=== PATIENT | male | born 1965 | race Hispanic/Latino ===

== ENCOUNTER 2018-08-04 20:26 | Emergency (ER) | payer BC, SELFPAY ==
[2018-08-04] MEDS ORDERED: NA CHLORIDE 0.9% 250 ML ONE (21:13)
[2018-08-04] MEDS ORDERED: NA CHLORIDE 0.9% 500 ML ONE (21:13)
[2018-08-04] MEDS ORDERED: PANTOPRAZOLE 40 MG INJ ONE (21:13)
[2018-08-04] MEDS ORDERED: ONDANSETRON 4 MG/2 ML VIAL ONE ×2 (21:27→23:06)
[2018-08-04 21:36] LABS: Absolute Lymphocytes (CBC) 2.4 K/uL (0.7-4.9); Absolute Monocytes 0.6 K/uL (0.1-1.3)
[2018-08-04 21:38] LABS: Protime INR 1.06
[2018-08-04 21:39] LABS: Absolute Neutrophil 5.7 K/uL (1.8-8.0); Eosinophils % 5.6 % (0-4.4); Lymphocytes % 25.9 % (15.3-44.8); MCH 21.5 pg (27.0-35.0); MCV 69.4 fL (80-100); MPV 9.3 fL (7.6-11.3); Monocytes % 6.6 % (3.3-12.3); RBC Red Blood Cell Count 3.46 M/uL (4.33-5.43)
[2018-08-04 21:42] LABS: Albumin 2.6 g/dL (3.4-5.0); Bilirubin Direct 0.2 mg/dL (0-0.2); Bilirubin Total 0.5 mg/dL (0.2-1.0); Potassium 3.6 mmol/L (3.5-5.1); Protein, Total 6.9 g/dL (6.4-8.2)
--- NOTE | 2018-08-04 21:55 | RAD REPORT ---
EXAM DESCRIPTION: RAD - Chest Single View - 08/04/2018 9:06 pm CLINICAL HISTORY: Hematemesis, shortness of breath COMPARISON: None. TECHNIQUE: AP portable chest image was obtained 2052 . FINDINGS: Lung volumes are very low. No peripheral mass, consolidation or significant pulmonary asim a. Heart and vasculature are normal. No measurable pleural effusion and no pneumothorax. No acute bon y abnormality seen. No acute aortic findings suspected. IMPRESSION: Limited portable study without acute cardiopulmonary finding.
[2018-08-04] MEDS ORDERED: CEFTRIAXONE/SWI 1gm 1 GM/10 ML SYR ONE (22:04)
[2018-08-04] MEDS ORDERED: NA CHLORIDE 0.9% 1,000 ML ONE (22:06)
[2018-08-04 22:16] LABS: Blood Morphology Comment NOTED (NOT SEEN); Hypochromasia 1+; Platelet Estimate ADEQ; Urine White Blood Cell Casts OK
--- NOTE | 2018-08-04 22:29 | EDPHYS ---
Physician Documentation [facility] Name: Janusz Morris Jr Age: 53 yrs Sex: Male : 1965 Arrival Date: 08/04/2018 Time: 20:30 Bed 2 Private MD: ED Physician Syed Steele HPI: 08/04 20:50 This 53 yrs old Male presents to ER via Wheelchair with complaints of Vomiting rn - blood. 20:50 The patient presents to the emergency department with nausea, vomiting. Onset: The rn symptoms/episode began/occurred just prior to arrival. Possible causes: unknown. Severity of symptoms: At their worst the symptoms were moderate in the emergency department the symptoms have improved. The patient has not experienced similar symptoms in the past. The patient has not recently seen a physician. Reports vomiting blood, single episode, has hx of cirrhosis, has required banding and states almost from ugger GI bleed 1 year ago. Not on anticoagulation. Still drinking. Had bloody nose this morning without trauma. No abd pain.. Historical: - Allergies: 20:46 No Known Allergies; aj - Home Meds: 20:46 Glipizide Oral [Active]; Metformin Oral [Active]; Lisinopril Oral [Active]; aj - PMHx: 20:46 Hypertension; Diabetes - NIDDM; Alcoholism; Cirrhosis; aj - Immunization history:: Adult Immunizations up to date. - Social history:: Smoking status: Patient/guardian denies using tobacco. - Ebola Screening: : Patient negative for fever greater than or equal to 101.5 degrees Fahrenheit, and additional compatible Ebola Virus Disease symptoms Patient denies exposure to infectious person Patient denies travel to an Ebola-affected area in the 21 days before illness onset No symptoms or risks identified at this time. - Family history:: not pertinent. - Hospitalizations: : No recent hospitalization is reported. ROS: 20:50 Constitutional: Negative for fever, chills, and weight loss, Eyes: Negative for injury, rn pain, redness, and discharge, ENT: + nose bleed Neck: Negative for injury, pain, and swelling, Cardiovascular: Negative for chest pain, palpitations, and edema, Respiratory: Negative for shortness of breath, cough, wheezing, and pleuritic chest pain, Abdomen/GI: + vomiting blood, no abd pain MS/Extremity: Negative for injury and deformity, Skin: Negative for injury, rash, and discoloration, Neuro: Negative for headache, weakness, numbness, tingling, and seizure. Exam: 20:50 Constitutional: Overweight male, no acute distress, holding emesis bag and shirt with rn small amount of bright red blood on it Head/Face: Normocephalic, atraumatic. Eyes: Pupils equal round and reactive to light, extra-ocular motions intact. Lids and lashes normal. Conjunctiva and sclera are non-icteric and not injected. Cornea within normal limits. Periorbital areas with no swelling, redness, or edema. ENT: + dry nasal blood Cardiovascular: Regular rate and rhythm with a normal S1 and S2. No gallops, murmurs, or rubs. Normal PMI, no JVD. No pulse deficits. Respiratory: Lungs have equal breath sounds bilaterally, clear to auscultation and percussion. No rales, rhonchi or wheezes noted. No increased work of breathing, no retractions or nasal flaring. Abdomen/GI: Soft, non-tender MS/ Extremity: Pulses equal, no cyanosis. Neurovascular intact. Full, normal range of motion. Equal circumference. Neuro: Awake and alert, GCS 15, oriented to person, place, time, and situation. Cranial nerves II-XII grossly intact. Motor strength 5/5 in all extremities. Sensory grossly intact. Cerebellar exam normal. Vital Signs: 20:46 BP 129 / 69; Pulse 97; Resp 20; Temp 98.4; Pulse Ox 99% on R/A; Weight 81.65 kg; Height aj 5 ft. 2 in. (157.48 cm); 21:27 BP 98 / 63; Pulse 91; Resp 15; Pulse Ox 98% on R/A; tl2 22:21 BP 105 / 61; Pulse 87; Resp 12; Pulse Ox 99% on NC; aj 20:46 Body Mass Index 32.92 (81.65 kg, 157.48 cm) aj MDM: 20:38 Patient medically screened. rn 22:04 ED course: Pt with low hemoglobin, + UGIB, no GI here, protonix drip going, blood rn ordered, rocephin given for suspected variceal bleeding, stable vitals, is NPO, attempting transfer to [facility] given his previous care has been there. . 22:25 Differential diagnosis: gastritis, esophageal varices, UGIB. Data reviewed: vital rn signs, nurses notes, lab test result(s), EKG, and as a result, I will admit patient. Counseling: I had a detailed discussion with the patient and/or guardian regarding: the historical points, exam findings, and any diagnostic results supporting the discharge/admit diagnosis, lab results, radiology results, the need to transfer to another facility, for higher level of care, [facility] does not immediately have the required specialist. Response to treatment: the patient's symptoms have mildly improved after treatment, and as a result, I will admit patient. ED course: Pt accepted to [facility] for transfer for GI evaluation given no GI here, stable for transfer.. 08/04 20:49 Order name: Basic Metabolic Panel; Complete Time: 21:46 08/04 20:49 Order name: CBC with Diff; Complete Time: 22:19 08/04 20:49 Order name: Creatinine for Radiology; Complete Time: 21:46 08/04 20:49 Order name: Hepatic Function; Complete Time: 21:46 08/04 20:49 Order name: Lipase; Complete Time: 21:46 08/04 20:49 Order name: PT-INR; Complete Time: 21:54 08/04 20:49 Order name: Ptt, Activated; Complete Time: 21:54 08/04 20:49 Order name: ETOH Level; Complete Time: 21:54 08/04 20:49 Order name: XRAY Chest (1 view); Complete Time: 21:58 08/04 21:46 Order name: CBC Smear Scan; Complete Time: 22:19 [facility] 08/04 22:05 Order name: Type And Screen bb 08/04 22:25 Order name: Lactate rn 08/04 22:50 Order name: Packed RBC Leukored -1 [facility] 08/04 23:36 Order name: ABO/RH no charge [facility] 08/04 20:49 Order name: IV Start; Complete Time: 21:01 08/04 20:49 Order name: Labs collected and sent; Complete Time: 21: 08/04 20:49 Order name: EKG - Nurse/Tech; Complete Time: 21:13 08/04 20:49 Order name: EKG; Complete Time: 20:50 08/04 21:58 Order name: NPO; Complete Time: 22:02 rn Administered Medications: 21:13 Drug: ProTONIX 40 mg Route: IVP; Site: right hand; tl2 21:13 Drug: ProTONIX 8 mg/hr Route: IV; Rate: 25 ml/hr; Site: right hand; tl2 21:14 Drug: NS 0.9% 500 ml Route: IV; Rate: bolus; Site: left antecubital; tl2 21:21 Drug: Zofran 4 mg Route: IVP; Site: left antecubital; tl2 21:50 Follow up: Response: No adverse reaction; Nausea is decreased tl2 22:03 Drug: Rocephin - (cefTRIAXone) 1 grams Route: IVPB; Infused Over: 30 mins; Site: left tl2 antecubital; 22:03 Drug: NS 0.9% 500 ml Route: IV; Rate: bolus; Site: left antecubital; tl2 22:21 Drug: NS 0.9% 1000 ml Route: IV; Rate: 125 ml/hr; Site: left antecubital; aj 23:00 Drug: Zofran 4 mg Route: IVP; Site: left antecubital; tl2 23:30 Follow up: Response: No adverse reaction; Nausea is decreased tl2 Disposition: 08/04/18 22:28 Transfer ordered to [facility]. Diagnosis are Hematemesis, Alcoholic cirrhosis of liver, Anemia. - Reason for transfer: Higher level of care. - Accepting physician is Dr. Black. - Condition is Stable. - Problem is new. - Symptoms have improved. Signatures: Dispatcher [employer] Alley Crawford RN RN aj Nieto, Roman, MD MD rn Knox, Taylor, RN RN tl2 Corrections: (The following items were deleted from the chart) 08/05 01:08 08/04 22:28 08/04/2018 22:28 Transfer ordered to [facility]. Diagnosis is tl2 Hematemesis; Alcoholic cirrhosis of liver; Anemia. Reason for transfer: Higher level of care. Accepting physician is Dr. Black. Condition is Stable. Problem is new. Symptoms have improved. rn
--- NOTE | 2018-08-04 22:29 | ER ---
Nurse's Notes [facility] Name: Janusz Morris Jr Age: 53 yrs Sex: Male : 1965 Arrival Date: 08/04/2018 Time: 20:30 Bed 2 Private MD: Diagnosis: Hematemesis;Alcoholic cirrhosis of liver;Anemia Presentation: 08/04 20:44 Presenting complaint: Patient states: Reports vomiting large amount of blood several aj times today [employer]. Patient has HX of cirrhosis and was recently released from [facility]. Transition of care: patient was not received from another setting of care. Onset of symptoms was August 04, 2018. Risk Assessment: Do you want to hurt yourself or someone else? Patient reports no desire to harm self or others. Initial Sepsis Screen: Does the patient meet any 2 criteria? No. Patient's initial sepsis screen is negative. Does the patient have a suspected source of infection? No. Patient's initial sepsis screen is negative. Care prior to arrival: None. 20:44 Method Of Arrival: Wheelchair aj 20:44 Acuity: AJ 2 aj Triage Assessment: 20:46 General: Appears in no apparent distress. uncomfortable, Behavior is anxious. Pain: aj Denies pain. Neuro: Level of Consciousness is awake, alert, obeys commands, Oriented to person, place, time, situation, Appropriate for age. Respiratory: Airway is patent Respiratory effort is even, unlabored, Respiratory pattern is regular, symmetrical. GI: Reports vomiting. Derm: Skin is intact, is healthy with good turgor, Skin is dry, Skin is pale. Historical: - Allergies: 20:46 No Known Allergies; aj - Home Meds: 20:46 Glipizide Oral [Active]; Metformin Oral [Active]; Lisinopril Oral [Active]; aj - PMHx: 20:46 Hypertension; Diabetes - NIDDM; Alcoholism; Cirrhosis; aj - Immunization history:: Adult Immunizations up to date. - Social history:: Smoking status: Patient/guardian denies using tobacco. - Ebola Screening: : Patient negative for fever greater than or equal to 101.5 degrees Fahrenheit, and additional compatible Ebola Virus Disease symptoms Patient denies exposure to infectious person Patient denies travel to an Ebola-affected area in the 21 days before illness onset No symptoms or risks identified at this time. - Family history:: not pertinent. - Hospitalizations: : No recent hospitalization is reported. Screenin:49 Tuberculosis screening: Never had TB. aj 22:34 Abuse screen: Denies threats or abuse. Nutritional screening: No deficits noted. Fall tl2 Risk None identified. Assessment: 20:40 General: Appears in no apparent distress. uncomfortable, Behavior is calm, cooperative, tl2 appropriate for age. Pain: Denies pain. Neuro: Level of Consciousness is awake, alert, obeys commands, Oriented to person, place, time, situation. Cardiovascular: Denies chest pain, Rhythm is sinus rhythm. Respiratory: Airway is patent Respiratory effort is even, unlabored, Respiratory pattern is regular, symmetrical. GI: Abdomen is non-distended, Reports nausea, vomiting. : No signs and/or symptoms were reported regarding the genitourinary system. Derm: Skin is pale. 21:50 Reassessment: Patient appears in no apparent distress at this time. Patient and/or tl2 family updated on plan of care and expected duration. Pain level reassessed. Patient is alert, oriented x 3, equal unlabored respirations, skin warm/dry/pink. Pt states nausea is improved. 22:50 Reassessment: Pt reports nausea, MD notified, new order see MAR. tl2 23:50 Reassessment: Awaiting transport for transfer. tl2 Vital Signs: 20:46 BP 129 / 69; Pulse 97; Resp 20; Temp 98.4; Pulse Ox 99% on R/A; Weight 81.65 kg; Height aj 5 ft. 2 in. (157.48 cm); 21:27 BP 98 / 63; Pulse 91; Resp 15; Pulse Ox 98% on R/A; tl2 22:21 BP 105 / 61; Pulse 87; Resp 12; Pulse Ox 99% on NC; aj 20:46 Body Mass Index 32.92 (81.65 kg, 157.48 cm) aj ED Course: 20:30 Patient arrived in ED. am2 20:38 Syed Steele MD is Attending Physician. rn 20:45 Triage completed. aj 20:46 Arm band placed on left wrist. Patient placed in an exam room, on a stretcher, on pulse aj oximetry. 21:01 Aster Allred RN is Primary Nurse. tl2 21:04 X-ray completed. Portable x-ray completed in exam room. Patient tolerated procedure kp1 well. 21:05 XRAY Chest (1 view) In Process Unspecified. EDMS 21:15 Inserted saline lock: 20 gauge in right hand, using aseptic technique. tl2 21:15 Inserted saline lock: 20 gauge in left antecubital area, using aseptic technique. Blood tl2 collected. 21:18 EKG done, by ED staff, reviewed by Syed Steele MD. cb2 21:45 Notified ED physician of a critical lab result(s). HGB of 7.5, HCT of 24.0 Dr Ivette solorzano notified. 22:34 Patient has correct armband on for positive identification. Placed in gown. Bed in low tl2 position. Call light in reach. Side rails up X 1. Adult w/ patient. Administered Medications: 21:13 Drug: ProTONIX 40 mg Route: IVP; Site: right hand; tl2 21:13 Drug: ProTONIX 8 mg/hr Route: IV; Rate: 25 ml/hr; Site: right hand; tl2 21:14 Drug: NS 0.9% 500 ml Route: IV; Rate: bolus; Site: left antecubital; tl2 21:21 Drug: Zofran 4 mg Route: IVP; Site: left antecubital; tl2 21:50 Follow up: Response: No adverse reaction; Nausea is decreased tl2 22:03 Drug: Rocephin - (cefTRIAXone) 1 grams Route: IVPB; Infused Over: 30 mins; Site: left tl2 antecubital; 22:03 Drug: NS 0.9% 500 ml Route: IV; Rate: bolus; Site: left antecubital; tl2 22:21 Drug: NS 0.9% 1000 ml Route: IV; Rate: 125 ml/hr; Site: left antecubital; aj 23:00 Drug: Zofran 4 mg Route: IVP; Site: left antecubital; tl2 23:30 Follow up: Response: No adverse reaction; Nausea is decreased tl2 Outcome: 22:28 ER care complete, transfer ordered by MD. arshad 08/05 01:08 Patient left the ED. tl2 Signatures: Dispatcher [employer] EDMS Alley Valdez RN RN aj Ballard, Brenda, RN RN bb Nieto, Roman, MD MD rn Knox, Taylor, RN RN tl2 Alley Del Real am2 Boubacar Martinez Lois kp1 Corrections: (The following items were deleted from the chart) 08/04 22:34 20:40 General: Appears in no apparent distress. uncomfortable, Behavior is calm, tl2 cooperative, appropriate for age, 22:34 20:40 Pain: Denies pain. [facility] 22:34 20:40 Neuro: Level of Consciousness is awake, alert, obeys commands, Oriented to 2 person, place, time, situation, :34 20:40 Cardiovascular: Denies chest pain, [facility] 22:34 20:40 Respiratory: Airway is patent Respiratory effort is even, unlabored, Respiratory 2 pattern is regular, symmetrical, 22:34 20:40 GI: Reports nausea, vomiting, [facility] :34 20:40 : No signs and/or symptoms were reported regarding the genitourinary system. [facility] :34 20:40 General: Smells of alcohol, [facility] :34 20:40 Derm: Skin is pale, [facility] :34 20:40 GI: Abdomen is non-distended, [facility] :34 21:50 Reassessment: Patient appears in no apparent distress at this time. Patient tl2 and/or family updated on plan of care and expected duration. Pain level reassessed. Patient is alert, oriented x 3, equal unlabored respirations, skin warm/dry/pink. nausea is improved aj
--- NOTE | 2018-08-05 07:03 | EKG ---
Test Date: 2018-08-04 Test Time: 21:16:26 Personnel Adviser: MING MEASUREMENT RESULTS: Intervals: Rate: 94 NV: 152 QRSD: 76 QT: 384 QTc: 480 [place]: P: 32 NV: 152 QRS: 5 T: 62 INTERPRETIVE STATEMENTS: Normal sinus rhythm Prolonged QT Abnormal ECG No previous ECG available for comparison Electronically Signed On 08-05-18 07:02:20 JETTING MACHINE OPERATOR by Gunnar Talley
== END 2018-08-05 01:08 | disposition short-term general hospital (02) ==
LOC: ER 20:26
DX: K92.0 Hematemesis (principal); K70.30 Alcoholic cirrhosis of liver without ascites; D64.9 Anemia, unspecified; R94.31 Abnormal electrocardiogram [ECG] [EKG]
CPT/HCPCS: 36415; 71045; 80048; 80076; 80320; 83605; 83690; 85025; 85610; 85730; 86850; 86900; 86901; 93005; 99284; C9113; J0696; J2405; J7030

== ENCOUNTER 2018-08-09 16:36 | Inpatient (IN) | payer SELFPAY ==
--- NOTE | 2018-08-09 18:07 | EKG ---
Test Date: 2018-08-09 Test Time: 17:48:24 Senior Technical Business Analyst: GEORGE MEASUREMENT RESULTS: Intervals: Rate: 81 MI: 150 QRSD: 80 QT: 390 QTc: 453 [place]: P: 17 MI: 150 QRS: 12 T: 68 INTERPRETIVE STATEMENTS: Normal sinus rhythm Normal ECG Compared to ECG 08/04/2018 21:16:26 Prolonged QT interval no longer present Electronically Signed On 08-09-18 18:06:12 MATERIAL EXPEDITER by Yon Gallo
--- NOTE | 2018-08-09 18:10 | RAD REPORT ---
EXAM DESCRIPTION: Stephon Single View08/09/2018 6:02 pm CLINICAL HISTORY: Chest pain COMPARISON: August 04, 2018 FINDINGS: The lungs appear clear of acute infiltrate. The heart is mildly enlarged IMPRESSION: No acute abnormalities displayed
[2018-08-09 18:57] LABS: Protime INR 1.12
[2018-08-09 19:11] LABS: Bilirubin Direct 0.4 mg/dL (0-0.2); Magnesium 2.2 mg/dL (1.8-2.4); Potassium 3.6 mmol/L (3.5-5.1); Troponin (Emerg Dept Use Only) 0.04 ng/mL (0.0-0.045)
[2018-08-09 19:18] LABS: Absolute Lymphocytes (CBC) 1.6 K/uL (0.7-4.9); Absolute Monocytes 0.7 K/uL (0.1-1.3); Absolute Neutrophil 6.3 K/uL (1.8-8.0); Basophils % 0.7 % (0-1.3); Hematocrit 25.5 % (39.6-49.0); Lymphocytes % 17.9 % (15.3-44.8); MCH 23.7 pg (27.0-35.0); MCV 73.2 fL (80-100); MPV 9.6 fL (7.6-11.3); Monocytes % 7.3 % (3.3-12.3); RBC Red Blood Cell Count 3.48 M/uL (4.33-5.43)
--- NOTE | 2018-08-09 20:02 | ER ---
Nurse's Notes [facility] Name: Janusz Morris Jr Age: 53 yrs Sex: Male : 1965 Arrival Date: 08/09/2018 Time: 16:38 Bed 5 Private MD: None, None Diagnosis: Chest pain, unspecified Presentation: 08/09 16:51 Presenting complaint: states: Patient was transferred to [facility] for GI aj1 bleeding on August 04. He had banding of esophageal varices done on August 05 and they were discharged last night. He has an appointment for follow up endoscopy next week because he still has a blood clot in his stomach. When she came home today he was hunched over in a ball, telling her that he was nauseated, his stomach was hurting and he felt like he couldn't breath. Patient states that he is still having pain and SOB. Transition of care: patient was not received from another setting of care. Onset of symptoms was August 09, 2018. Risk Assessment: Do you want to hurt yourself or someone else? Patient reports no desire to harm self or others. Initial Sepsis Screen: Does the patient meet any 2 criteria? No. Patient's initial sepsis screen is negative. Does the patient have a suspected source of infection? No. Patient's initial sepsis screen is negative. Care prior to arrival: None. 16:51 Method Of Arrival: Wheelchair aj1 16:51 Acuity: AJ 3 aj1 Triage Assessment: 16:59 General: Appears in no apparent distress. uncomfortable, Behavior is calm, cooperative, aj1 appropriate for age. Pain: Complains of pain in abdomen Pain currently is 5 out of 10 on a pain scale. Neuro: Level of Consciousness is awake, alert, obeys commands. Cardiovascular: Patient's skin is warm and dry. Respiratory: Airway is patent Respiratory effort is even, unlabored, Respiratory pattern is regular, symmetrical. Historical: - Allergies: 16:59 No Known Allergies; aj1 - Home Meds: 16:59 Cipro 500 mg Oral tab 1 tab every 12 hours [Active]; lactulose 10 gram/15 mL Oral soln aj1 60 mL 3 times per day [Active]; pantoprazole 40 mg oral TbEC 1 tab 2 times per day [Active]; propranolol 20 mg Oral tab 1 tab twice a day [Active]; furosemide 20 mg Oral tab 1 tab once daily [Active]; spironolactone 50 mg Oral tab 1 tab once daily [Active]; glipizide 10 mg oral tab 1 tab once daily [Active]; metformin 1,000 mg oral tab 1 tab 2 times per day [Active]; - PMHx: 16:59 Alcoholism; Cirrhosis; Diabetes - NIDDM; Hypertension; esophageal varices; GI Bleed; aj1 - Immunization history:: Flu vaccine is not up to date. - Social history:: Smoking status: Patient/guardian denies using tobacco, Patient/guardian denies using alcohol, street drugs, The patient lives with family. - Ebola Screening: : Patient denies travel to an Ebola-affected area in the 21 days before illness onset. - Family history:: not pertinent. Screenin:04 Abuse screen: Denies threats or abuse. Denies injuries from another. Nutritional sv screening: No deficits noted. Tuberculosis screening: No symptoms or risk factors identified. Fall Risk None identified. Assessment: 17:30 General: Appears in no apparent distress. comfortable, obese, well groomed, Behavior is ph calm, cooperative, appropriate for age, Denies fever. Pain: Complains of pain in anterior aspect of left upper chest Pain currently is 0 out of 10 on a pain scale. Neuro: Level of Consciousness is awake, alert, obeys commands, Oriented to person, place, time, situation. Cardiovascular: Reports chest pain, nausea, shortness of breath, [employer], denies these symptoms now Chest pain quality is sharp, is located in left anterior chest wall episodes are intermittent last > 5 minutes. Respiratory: Airway is patent Respiratory effort is even, unlabored, Respiratory pattern is regular, symmetrical. GI: Abdomen is round Patient currently denies nausea. Derm: Skin is intact, is healthy with good turgor, Skin is pink, warm \T\ dry. Musculoskeletal: Circulation, motion, and sensation intact. Range of motion: intact in all extremities. 18:19 Reassessment: Patient appears in no apparent distress at this time. Patient and/or ph family updated on plan of care and expected duration. Pain level reassessed. Patient is alert, oriented x 3, equal unlabored respirations, skin warm/dry/pink. Pt resting quietly, family at bedside Patient denies pain at this time. 19:10 General: Appears in no apparent distress. comfortable, Behavior is calm, cooperative, rr5 appropriate for age, Denies fever. Pain: Denies pain. Neuro: No deficits noted. Level of Consciousness is awake, alert, obeys commands, Oriented to person, place, time, situation. Cardiovascular: Denies chest pain. Respiratory: Airway is patent Respiratory effort is even, unlabored, Respiratory pattern is regular, symmetrical. GI: Abdomen is round Patient currently denies nausea. : No signs and/or symptoms were reported regarding the genitourinary system. EENT: No signs and/or symptoms were reported regarding the EENT system. Eyes. Derm: Skin is intact, is healthy with good turgor, Skin is dry, Skin is pink, warm \T\ dry. Musculoskeletal: Circulation, motion, and sensation intact. Capillary refill < 3 seconds, Range of motion: intact in all extremities. 20:30 Reassessment: Patient appears in no apparent distress at this time. Patient and/or rr5 family updated on plan of care and expected duration. Pain level reassessed. Patient is alert, oriented x 3, equal unlabored respirations, skin warm/dry/pink. awaiting for admission, no complaints made. Patient states symptoms have improved. 22:25 Reassessment: Patient appears in no apparent distress at this time. Patient is alert, rr5 oriented x 3, equal unlabored respirations, skin warm/dry/pink. shifted to telemetry Patient states symptoms have improved. Vital Signs: 16:59 BP 150 / 76; Pulse 82; Resp 18; Temp 98.8; Pulse Ox 99% on R/A; Weight 83.91 kg; Height aj1 5 ft. 2 in. (157.48 cm) (R); Pain 5/10; 17:15 BP 147 / 78; Pulse 84; Resp 18; Pulse Ox 99% on R/A; ph 18:51 BP 138 / 76; Pulse 80; Resp 18; Pulse Ox 100% on R/A; ph 19:10 BP 148 / 73; Pulse 79; Resp 19; Temp 97.9(O); Pulse Ox 100% on R/A; Pain 0/10; rr5 20:30 BP 141 / 70; Pulse 75; Resp 18; Pulse Ox 99% on R/A; rr5 21:53 BP 153 / 70; Pulse 83; Resp 18; Temp 98; Pulse Ox 99% on R/A; Pain 0/10; rr5 16:59 Body Mass Index 33.84 (83.91 kg, 157.48 cm) aj1 ED Course: 16:38 Patient arrived in ED. sb2 16:38 None, None is Private Physician. sb2 16:56 Triage completed. aj1 16:59 Arm band placed on Patient placed in an exam room. aj1 17:03 Nissa Cesar, RN is Primary Nurse. sv 17:04 Patient has correct armband on for positive identification. Bed in low position. Call sv light in reach. Door closed. Head of bed elevated. 17:12 Fei Wallis MD is Attending Physician. ma2 17:59 Inserted saline lock: 22 gauge in left antecubital area, using aseptic technique. ph Missed attempt(s): 20 gauge in right antecubital area. Bleeding controlled, band aid applied, catheter tip intact. 18:01 XRAY Chest (1 view) In Process Unspecified. EDMS 18:01 EKG done, by agriculture technician. reviewed by Fei Wallis MD. [facility] 18:50 Madie Moon, JADA is Primary Nurse. ph 18:59 Jorge Llanos PA is PHCP. cp 20:01 Ruy Elder MD is Hospitalizing Provider. cp 21:54 No provider procedures requiring assistance completed. Patient admitted, IV remains in rr5 place. Administered Medications: 22:35 Not Given (did not complaint of nausea): Zofran 4 mg IVP once; over 2 minutes rr5 Outcome: 20:01 Decision to Hospitalize by Provider. cp 22:21 Admitted to Tele accompanied by tech, via stretcher, room 428, Report called to liudmila lee RN 22:21 Condition: stable 22:21 Instructed on the need for admit. 22:40 Patient left the ED. rr5 Signatures: Dispatcher [employer] EDMS Lucinda Coughlin RN RN aj Nissa Cesar, Madie White RN, RN RN Jorge Llanos PA PA cp Fei Wallis MD MD coYahaira Contreras 2 Marylou Isabel 3 Bhanu Pretty RN RN rr5 Corrections: (The following items were deleted from the chart) 18:50 18:19 Reassessment: Patient appears in no apparent distress at this time. Patient ph and/or family updated on plan of care and expected duration. Pain level reassessed. Patient is alert, oriented x 3, equal unlabored respirations, skin warm/dry/pink. Pt resting quietly, family at bedside ph 19:26 19:10 EENT: No signs and/or symptoms were reported regarding the EENT system. rr5 rr5
--- NOTE | 2018-08-09 20:03 | EDPHYS ---
Physician Documentation [facility] Name: Janusz Morris Jr Age: 53 yrs Sex: Male : 1965 Arrival Date: 08/09/2018 Time: 16:38 Bed 5 Private MD: None, None ED Physician Fei Wallis HPI: 08/09 17:37 The patient or guardian reports chest pain that is located primarily in the anterior ma2 aspect of left upper chest and left breast. Onset: gradually, 1 hour(s) ago. The pain does not radiate. Associated signs and symptoms: Pertinent positives: diaphoresis. Associated signs and symptoms: Pertinent positives: cough, shortness of breath, Pertinent negatives: abdominal pain, headache, lower extremity pain, lower extremity swelling, syncope, vomiting. The chest pain is described as aching. Duration: The patient or guardian reports a single episode, that is now resolved. Severity of pain: At its worst the pain was moderate in the emergency department the pain has resolved. The patient has not experienced similar symptoms in the past. had EGD for esophageal varices 4 days ago, s/p 6 bands placed, discharged from [facility] yesterday, here with left sided chest pain cough and sob, never had that before, never had cardiac history . no vomiting no blood per rectum or melena or hematemesis . Historical: - Allergies: 16:59 No Known Allergies; aj1 - Home Meds: 16:59 Cipro 500 mg Oral tab 1 tab every 12 hours [Active]; lactulose 10 gram/15 mL Oral soln aj1 60 mL 3 times per day [Active]; pantoprazole 40 mg oral TbEC 1 tab 2 times per day [Active]; propranolol 20 mg Oral tab 1 tab twice a day [Active]; furosemide 20 mg Oral tab 1 tab once daily [Active]; spironolactone 50 mg Oral tab 1 tab once daily [Active]; glipizide 10 mg oral tab 1 tab once daily [Active]; metformin 1,000 mg oral tab 1 tab 2 times per day [Active]; - PMHx: 16:59 Alcoholism; Cirrhosis; Diabetes - NIDDM; Hypertension; esophageal varices; GI Bleed; aj1 - Immunization history:: Flu vaccine is not up to date. - Social history:: Smoking status: Patient/guardian denies using tobacco, Patient/guardian denies using alcohol, street drugs, The patient lives with family. - Ebola Screening: : Patient denies travel to an Ebola-affected area in the 21 days before illness onset. - Family history:: not pertinent. ROS: 17:37 Eyes: Negative for injury, pain, redness, and discharge, Neck: Negative for injury, ma2 pain, and swelling, Back: Negative for injury and pain, MS/Extremity: Negative for injury and deformity, Neuro: Negative for headache, weakness, numbness, tingling, and seizure, Psych: Negative for depression, anxiety, suicide ideation, homicidal ideation, and hallucinations, Allergy/Immunology: Negative for hives, rash, and allergies, Endocrine: Negative for neck swelling, polydipsia, polyuria, polyphagia, and marked weight changes. 17:37 Constitutional: Positive for fatigue, malaise, Negative for body aches, chills, fever. 17:37 Cardiovascular: Positive for chest pain, Negative for edema, orthopnea. 17:37 Respiratory: Positive for cough, shortness of breath, Negative for hemoptysis, orthopnea. 17:37 Abdomen/GI: Positive for nausea, constipation and abdominal bloating , Negative for abdominal pain, dysphagia, hematemesis, black/tarry stool. 17:37 All other systems are negative. Exam: 17:37 Constitutional: This is a well developed, well nourished patient who is awake, alert, ma2 and in no acute distress. Head/Face: Normocephalic, atraumatic. Eyes: Pupils equal round and reactive to light, extra-ocular motions intact. Lids and lashes normal. Conjunctiva and sclera are non-icteric and not injected. Cornea within normal limits. Periorbital areas with no swelling, redness, or edema. Chest/axilla: Normal chest wall appearance and motion. Nontender with no deformity. No lesions are appreciated. Cardiovascular: Regular rate and rhythm with a normal S1 and S2. No gallops, murmurs, or rubs. Normal PMI, no JVD. No pulse deficits. Respiratory: Lungs have equal breath sounds bilaterally, clear to auscultation and percussion. No rales, rhonchi or wheezes noted. No increased work of breathing, no retractions or nasal flaring. Skin: Warm, dry with normal turgor. Normal color with no rashes, no lesions, and no evidence of cellulitis. MS/ Extremity: Pulses equal, no cyanosis. Neurovascular intact. Full, normal range of motion. Neuro: Awake and alert, GCS 15, oriented to person, place, time, and situation. Cranial nerves II-XII grossly intact. Motor strength 5/5 in all extremities. Sensory grossly intact. Cerebellar exam normal. Normal gait. 17:37 Abdomen/GI: Inspection: distension, that is moderate, Palpation: abdomen is soft and non-tender, soft. 20:01 ECG was reviewed by the Attending Physician. cp Vital Signs: 16:59 BP 150 / 76; Pulse 82; Resp 18; Temp 98.8; Pulse Ox 99% on R/A; Weight 83.91 kg; Height aj1 5 ft. 2 in. (157.48 cm) (R); Pain 5/10; 17:15 BP 147 / 78; Pulse 84; Resp 18; Pulse Ox 99% on R/A; ph 18:51 BP 138 / 76; Pulse 80; Resp 18; Pulse Ox 100% on R/A; ph 19:10 BP 148 / 73; Pulse 79; Resp 19; Temp 97.9(O); Pulse Ox 100% on R/A; Pain 0/10; rr5 20:30 BP 141 / 70; Pulse 75; Resp 18; Pulse Ox 99% on R/A; rr5 21:53 BP 153 / 70; Pulse 83; Resp 18; Temp 98; Pulse Ox 99% on R/A; Pain 0/10; rr5 16:59 Body Mass Index 33.84 (83.91 kg, 157.48 cm) aj1 MDM: 17:13 Patient medically screened. ma2 17:37 Differential diagnosis: dd includes pneumonia, esophagal rupture, mediastinitis, SC, ma2 unlikely UGIB. The patient was not given aspirin in the Emergency Department. Not indicated due to patient's past medical history. 19:45 Data reviewed: vital signs, nurses notes, lab test result(s), EKG, radiologic studies, cp plain films, and as a result, I will admit patient. 19:45 Test interpretation: by ED physician or midlevel provider: ECG, plain radiologic cp studies. Counseling: I had a detailed discussion with the patient and/or guardian regarding: the historical points, exam findings, and any diagnostic results supporting the discharge/admit diagnosis, lab results, radiology results, the need for further work-up and treatment in the hospital. 20:00 Physician consultation: Ruy Elder MD was called at 20:00, was contacted at 20:00, regarding admission, to the telemetry unit. patient's condition. 08/09 17:31 Order name: Basic Metabolic Panel; Complete Time: 19:41 ma2 08/09 19:42 Interpretation: Normal except: GLUC 189; GFR 88; CA 7.7. 08/09 17:31 Order name: CBC with Diff ma2 08/09 19:41 Interpretation: Normal except: RBC 3.48; HGB 8.3; HCT 25.5; MCV 73.2; MCH 23.7; PLT 96; cp RDW 20.5; EOSINOPHIL % 5.0. 08/09 17:31 Order name: LFT's; Complete Time: 19:41 ma2 08/09 19:42 Interpretation: Normal except: BILID 0.4; ALB 3.0; GLOB 4.0; A/G 0.8. 08/09 17:31 Order name: Magnesium; Complete Time: 19:41 ma2 08/09 17:31 Order name: NT PRO-BNP; Complete Time: 19:41 ma2 08/09 17:31 Order name: PT-INR; Complete Time: 19:41 ma2 08/09 17:31 Order name: Troponin (emerg Dept Use Only); Complete Time: 19:41 ma2 08/09 19:42 Interpretation: TROPED 0.04; Reviewed. 08/09 17:31 Order name: XRAY Chest (1 view); Complete Time: 18:21 ma2 08/09 17:31 Order name: EKG; Complete Time: 17:32 ma2 08/09 17:31 Order name: Cardiac monitoring; Complete Time: 17:59 ma2 08/09 17:31 Order name: EKG - Nurse/Tech; Complete Time: 17:59 ma2 08/09 17:31 Order name: IV Saline Lock; Complete Time: 17:59 ma2 08/09 21:29 Order name: CBC Smear Scan EDMS 08/09 17:31 Order name: Labs collected and sent; Complete Time: 18:52 ma2 08/09 17:31 Order name: O2 Per Protocol; Complete Time: 17:58 ma2 08/09 17:31 Order name: O2 Sat Monitoring; Complete Time: 17:59 ma2 EC:01 Rate is 81 beats/min. Rhythm is regular. HI interval is normal. QRS interval is normal. cp QT interval is normal. Interpreted by me. Reviewed by me. Administered Medications: 22:35 Not Given (did not complaint of nausea): Zofran 4 mg IVP once; over 2 minutes rr5 Disposition: 22:45 Chart complete. cp Disposition: 08/09/18 20:01 Hospitalization ordered by Ruy Elder for Observation. Preliminary diagnosis is Chest pain, unspecified. - Bed requested for Telemetry/MedSurg (observation). - Status is Observation. rr5 - Condition is Stable. - Problem is new. - Symptoms have improved. UTI on Admission? No Addendum: 08/13/2018 17:25 Co-signature as Attending Physician, Fei Wallis MD. m a2 Signatures: Dispatcher [employer] EDIL Lucinda Coughlin RN RN aj1 Lissette Jacobs RN RN kl Page, Corey, PA PA cp Fei Wallis MD MD ma2 Bhanu Pretty RN RN rr5 Corrections: (The following items were deleted from the chart) 08/09 19:42 19:41 Normal except: GLUC 189; GFR 88. cp cp 21:38 20:01 Hospitalization Ordered by Ruy Elder MD for Observation. Preliminary kl diagnosis is Chest pain, unspecified. Bed requested for Telemetry/MedSurg (observation). Status is Observation. Condition is Stable. Problem is new. Symptoms have improved. UTI on Admission? No. cp 22:40 21:38 08/09/2018 20:01 Hospitalization Ordered by Ruy Elder MD for Observation. rr5 Preliminary diagnosis is Chest pain, unspecified. Bed requested for Telemetry/MedSurg (observation). Status is Observation. Condition is Stable. Problem is new. Symptoms have improved. UTI on Admission? No. kl
--- NOTE | 2018-08-09 21:13 | P.HP ---
Certification for Inpatient Patient admitted to: Observation With expected LOS: <2 Midnights Practitioner: I am a practitioner with admitting privileges, knowledge of patient current condition, hospital course, and medical plan of care. Services: Services provided to patient in accordance with Admission requirements found in Title 42 Section 412.3 of the Code of Federal Regulations Patient History Date of Service: 08/09/18 Reason for admission: Chest pain History of Present Illness: Mr Morris is a 53-year-old male with history of liver cirrhosis, hypertension, diabetes mellitus types 2, who was recently transferred from [facility] to [facility] in 2 upper GI bleed. Endoscopy was remarkable for esophageal varices requiring banding. The patient was discharged home yesterday in stable condition, still with melena. Today he was at home, when suddenly still feeling chest pain. The pain was located on the left side of the chest, without radiation, associated with nausea, diaphoresis and shortness of breath. The pain lasts for 15-20 min , he has never had these kind of pain before. He denied any bloody or coffee- ground emesis, nonbloody stools, however he still has dark stools initial troponin I is negative, EKG shows no ST-T abnormalities. At the time of my encounter the patient was chest pain-free. Home medications list reviewed: Yes - Past Medical/Surgical History -: Liver cirrhosis -: Esophageal varices -: GI bleed -: Diabetes mellitus -: Hypertension -: Banding ligation - Family History Family History: Reviewed- Non-Contributory - Social History Alcohol use: No CD- Drugs: No Place of Residence: Home Review of Systems 10-point ROS is otherwise unremarkable Physical Examination - Physical Exam General: Alert, In no apparent distress HEENT: Atraumatic, PERRLA, Mucous membr. moist/pink, EOMI, Sclerae nonicteric Neck: Supple, 2+ carotid pulse no bruit, No LAD, Without JVD or thyroid abnormality Respiratory: Normal air movement, Crackles/rales (Scattered bilateral rales) Cardiovascular: Regular rate/rhythm, Normal S1 S2 Gastrointestinal: Normal bowel sounds, No tenderness Musculoskeletal: No tenderness Integumentary: No rashes Neurological: Normal speech, Normal strength at 5/5 x4 extr, Normal tone, Normal affect Lymphatics: No axilla or inguinal lymphadenopathy - Studies Laboratory Data (last 24 hrs) 08/09/18 18:35: PT 13.2 H, INR 1.12 08/09/18 18:35: WBC 9.1, Hgb 8.3 L, Hct 25.5 L, Plt Count 96 L D 08/09/18 18:35: Sodium 139, Potassium 3.6, BUN 11, Creatinine 0.90, Glucose 189 H, Magnesium 2.2, Total Bilirubin 1.0, AST 32, ALT 32, Alkaline Phosphatase 109 Assessment and Plan - Problems (Diagnosis) (1) Chest pain Current Visit: Yes Status: Acute Qualifiers: Chest pain type: precordial pain Qualified Code(s): R07.2 - Precordial pain (2) Diabetes mellitus Current Visit: Yes Status: Acute Qualifiers: Diabetes mellitus type: type 2 Diabetes mellitus alf insulin use: without manager intermediate use Diabetes mellitus complication status: with unspecified complications Qualified Code(s): E11.8 - Type 2 diabetes mellitus with unspecified complications (3) Liver cirrhosis Current Visit: Yes Status: Acute Qualifiers: Hepatic cirrhosis type: alcoholic cirrhosis Ascites presence: without ascites Qualified Code(s): K70.30 - Alcoholic cirrhosis of liver without ascites (4) Esophageal varices Current Visit: Yes Status: Acute Qualifiers: Esophageal varices type: secondary Esophageal varices bleeding: without bleeding Qualified Code(s): I85.10 - Secondary esophageal varices without bleeding - Plan The patient will be admitted to the hospital under observation due to typical chest pain. Troponin I negative, EKG without ischemic changes. Will order serial cardiac enzymes and EKG. Due to his recent GI bleed episode will be cautious with anticoagulation. Consult Cardiology team for evaluation recommendation. - Advance Directives Does patient have a Living Will: No Does patient have a Durable POA for Healthcare: No - Code Status/Comfort Care Code Status Assessed: Yes Code Status: Full Code
[2018-08-09 21:23] LABS: Anisocytosis 2+; Blood Morphology Comment NOTED (NOT SEEN); Platelet Estimate DECR; Urine White Blood Cell Casts OK
[2018-08-09 21:28] LABS: Poikilocytosis SLIGHT; Polychromasia SLIGHT
[2018-08-10] MEDS ORDERED: PNEUMOCOCCAL VACCINE 0.5 ML IMVAC ONE (08:00)
[2018-08-10] MEDS ORDERED: ASPIRIN EC 81 MG TAB PO SCH (09:00)
[2018-08-10] MEDS: PROPRANOLOL HCL 10 MG TAB PO SCH ×2 (10:18→22:22)
[2018-08-10 10:54] LABS: Hematocrit 23.9 % (39.6-49.0)
[2018-08-10] MEDS ORDERED: GLUCAGON 1 MG/VIAL IM PRN (10:59)
[2018-08-10] MEDS ORDERED: D50W 25 GM/50 ML SYRINGE IV PRN (10:59)
[2018-08-10] MEDS: SPIRONOLACTONE 25 MG TABLET PO SCH (11:25)
[2018-08-10] MEDS: CIPROFLOXACIN HCL 500 MG TAB PO SCH ×2 (11:26→22:23)
[2018-08-10] MEDS: FUROSEMIDE 20 MG TABLET PO SCH (11:26)
[2018-08-10] MEDS: INSULIN -REGULAR HUMAN 50 UNIT/0.5 ML ML SQ SCH ×3 (11:43→22:23)
[2018-08-10] MEDS: POLYVINYL ALCOHOL 1.4% 15 ML EACH EYE SCH ×2 (12:00→17:43)
--- NOTE | 2018-08-10 13:00 | CON ---
History Of Present Illness: Mr. Morris came to the hospital because of pain in the chest. The pain is on the left side of his chest. He has nausea. It lasted about 30 minutes, but the day before he had undergone esophageal variceal banding. 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 Aleah perry has had several bouts of GI bleeding. There was so much blood when they did the banding that they decided they would probably have to do another portion of it later. Since being in the hospital, the patient's cardiac enzymes are normal, and his electrocardiogram is normal. The patient has never jessica d myocardial infarction, stroke, or diabetes. Does not use tobacco. Quit using alcohol. Physical Examination: General: 5 feet 2, 184 pounds. Alert, oriented, pleasant, not in distress. Lungs: Clear. Heart: Within normal limits. Extremities: Diminished but palpable distal pulses. Trace edema. Impression: This is not an acute coronary syndrome. His pain was related to all the disease in the esophagus, probably so much blood in his stomach that he was unable to vomit up, that made him feel s o bad, probably all the retching causes pain. I would recommend we discontinue aspirin. There is no clear indication for him to be on aspirin, and it certainly has the likelihood of making his GI blee ding worse. His hemoglobin is just 8. Mr. Morris probably does not have any significant coronary he art disease. If he does, he would not be a candidate for a cardiac cath or a stent. The stenting pr ocedure requires anticoagulant so severe that he would be unable to tolerate it, so medical therapy f or angina, if it exists, would be the preferred route, but this does not seem to be an angina. He does not seem to have coronary heart dis ease. MITRA/JEFF Voice ID: [id number] Report ID: [id number]
[2018-08-10] MEDS: LACTULOSE 20 GM/30 ML UCUP PO SCH ×2 (14:00→22:23)
--- NOTE | 2018-08-10 15:10 | RAD REPORT ---
EXAM DESCRIPTION: CT - Chest Abdomen Pelvis W Cont - 08/10/2018 2:48 pm CLINICAL HISTORY: Chest and abdomen pain. chest pain, recent variceal bleed COMPARISON: No comparisons TECHNIQUE: Approximately 100 mL nonionic IV contrast was administered to the patient. All CT scans are performed using dose optimization technique as appropriate and may include automated exposure control or mA/KV adjustment according to patient size. FINDINGS: Mild interstitial pulmonary edema is suspected.Small hiatal hernia is seen with distal eso phageal thickening and multiple varicosities.Small bilateral pleural effusions seen.No intrathoracic adenopathy. Nodular liver contour is seen compatible with cirrhosis. Vague small early arterial phase enhancing l esion is seen in the anterior right lobe liver measuring 12 mm. Additional smaller arterial phase enh ancing lesion is seen in the medial anterior right lobe of the liver. Small partially occlusive filli ng defect is seen involving the portal vein and SMV on the venous phase sequence. The spleen, pancreas, adrenal glands and kidneys are within normal limits. Trace ascites is noted. Moderate thickening of the sigmoid colon wall is present. Mild thickening is also seen of the cecum and right colon. Normal appendix. No pathologic lymphadenopathy in the abdome n or pelvis. Bilateral spondylolysis at L5-S1 IMPRESSION: Liver cirrhosis is seen with two small vague arterial phase enhancing lesions present as detailed above.In the settings of cirrhosis, HCC would be the diagnosis of concern. Consider correla tion with alpha fetoprotein levels. Prominent esophageal varices. Partial filling defect is seen in the portal vein and SMV suggesting partial portal venous thrombosis . Colonic thickening as detailed could indicate underlying portal colopathy.
[2018-08-10 17:44] LABS: Urine Appearance CLEAR; Urine Bilirubin NEGATIVE (NEG); Urine Blood TRACE (NEG); Urine Color YELLOW; Urine Glucose NEGATIVE (NEG); Urine Protein 1+ (NEG); Urine Specific Gravity >=1.030 (1.005-1.030)
[2018-08-10 17:46] LABS: Urine Microscopic Reflex ORDER UMIC
[2018-08-10 18:11] LABS: Urine Bacteria <20 /HPF (NONE SEEN); Urine Culture Reflex Order NOT NEEDED; Urine RBC <5 /HPF (NONE SEEN)
[2018-08-10] MEDS: GUAIFENESIN/CODEINE 5ML UCUP PO PRN (19:24)
[2018-08-10 20:36] LABS: Hematocrit 26.6 % (39.6-49.0)
--- NOTE | 2018-08-10 21:33 | PN ---
Date of Progress Note: 08/10/2018 Subjective: The patient is seen and examined. Chart reviewed, and case discussed with RN. Family at the bedside. Treatment plan explained. All questions answered. The patient is still having some abdominal discomfort, has had some melenic stool. Denies any hematemesis. Review of Systems: Negative except as above. Medications: List reviewed. Physical Examination: Vital Signs: Temperature 98.7, heart rate 73, blood pressure 131/70, respirations 16, O2 98% on room air. General: Awake, alert, oriented x3, in no distress. An obese male, ill- appearing. CV: S1 and S2. Regular rate and rhythm. Peripheral pulses present. Respiratory: Moving air well bilaterally. No wheezing. Gastrointestinal: Abdomen is soft. Mild tenderness to palpation in the epigastric region. No rebound or guarding. Bowel sounds are positive. Extremities: No clubbing, cyanosis, or edema. Neuro: Nonfocal. Laboratory Data: Labs revealed hemoglobin 7.6 and 23.9 hematocrit. Glucose [address] chest, abdomen, and pelvis arterial phase-enhancing lesions present as detailed above. prominent esophageal varices. Partial filling defect seen in the portal vein and SMV, suggesting proximal portal vein thrombosis. Colonic thickening detailed could indicate underlying portal colopathy. Assessment: A 53-year-old male with: 1. Atypical chest pain. ACS was ruled out. Likely related to esophageal varices. CT chest did not show any acute hemorrhage. 2. Diabetes mellitus type 2 with a long-term use of insulin, with hyperglycemia. We will continue sliding scale insulin and continue Accu-Cheks. 3. Esophageal varices, status post recent banding. We will continue propranolol. 4. Acute gastrointestinal bleed. The patient has had melenic stools. Hemoglobin is dropped to 7.6. We will repeat a level in 6 hours. If hemoglobin continues to drop, will need blood transfusion. 5. Hepatitis C without coma. The patient refusing lactulose. 6. Liver cirrhosis with minimal ascites, secondary to hepatitis C. 7. Possible hepatocellular carcinoma. The patient has some enhancing lesions on CT of the liver in the setting of liver cirrhosis. Most likely diagnosis of HCC. We will obtain alpha-fetoprotein level. Unfortunately, GI is unavailable. Plan: Monitor H and H, transfuse if needed. If the patient has any variceal bleeding, he need to be transferred. Otherwise, we will monitor closely. SA/MODL Voice ID: [id number] Report ID: [id number] EILEEN
[2018-08-10] MEDS ORDERED: TRAZODONE 50 MG TABLET PO PRN (21:51)
[2018-08-11] MEDS: POLYVINYL ALCOHOL 1.4% 15 ML EACH EYE SCH ×2 (05:19→12:15)
[2018-08-11 05:50] LABS: Absolute Lymphocytes (CBC) 1.5 K/uL (0.7-4.9); Absolute Monocytes 0.9 K/uL (0.1-1.3); Absolute Neutrophil 5.5 K/uL (1.8-8.0); Eosinophils % 6.7 % (0-4.4); Hematocrit 24.5 % (39.6-49.0); Lymphocytes % 17.4 % (15.3-44.8); MCH 23.5 pg (27.0-35.0); MCV 73.6 fL (80-100); MPV 9.6 fL (7.6-11.3); Monocytes % 10.1 % (3.3-12.3); RBC Red Blood Cell Count 3.32 M/uL (4.33-5.43)
[2018-08-11 06:14] LABS: Albumin 2.8 g/dL (3.4-5.0); Potassium 3.7 mmol/L (3.5-5.1); Protein, Total 6.3 g/dL (6.4-8.2)
[2018-08-11] MEDS ORDERED: PANTOPRAZOLE 40MG TABLET PO SCH (06:30)
[2018-08-11] MEDS: INSULIN -REGULAR HUMAN 50 UNIT/0.5 ML ML SQ SCH ×2 (07:30→12:15)
[2018-08-11] MEDS ORDERED: GLIPIZIDE S.A. 5 MG TAB PO SCH (09:00)
[2018-08-11] MEDS: LACTULOSE 20 GM/30 ML UCUP PO SCH ×2 (09:21→13:58)
[2018-08-11] MEDS: SPIRONOLACTONE 25 MG TABLET PO SCH (09:21)
[2018-08-11] MEDS: FUROSEMIDE 20 MG TABLET PO SCH (09:22)
[2018-08-11] MEDS: CIPROFLOXACIN HCL 500 MG TAB PO SCH (09:22)
[2018-08-11] MEDS: PROPRANOLOL HCL 10 MG TAB PO SCH (09:22)
[2018-08-11] MEDS: GUAIFENESIN/CODEINE 5ML UCUP PO PRN (09:28)
--- NOTE | 2018-08-11 16:55 | PN ---
Date of Progress Note: 08/11/2018 Subjective: The patient was seen and examined. Chart reviewed and case discussed with RN. The patient is still having a significant amount of loose stool. Denies any further bleeding in the stool. Review of Systems: Negative except as above. Medications: List reviewed. Objective: Vital Signs: Temperature 97.8, heart rate 69, blood pressure 120/66 , respirations 18, O2 is 99% on room air. General: Awake, alert, oriented x3, in no acute distress, obese, ill-appearing male. CV: S1, S2. No murmurs. Respiratory: Moving air well bilaterally. No wheezing. Gastrointestinal: Abdomen is soft, nontender. The patient is partially distended with some mild ascites. Positive bowel sounds. Extremities: No clubbing, cyanosis, or edema. Neurologic: Nonfocal. Laboratory Data: WBC 8.5, H and H 7.8 and 24.5, Sodium 140, potassium 3.7, chloride 109, CO2 of 24, BUN 13, creatinine 1, glucose 122, calcium 7.8. Assessment And Plan: A 53-year-old male with: 1. Atypical chest pain. Acute coronary syndrome ruled out, likely related to esophageal varices. CT chest, negative. 2. Acute gastrointestinal bleed. The patient earlier had some melenic stools , now does not have any further black stools; however, complaining of significant loose stools, likely related to lactulose. 3. Esophageal varices, status post recent banding. Continue propranolol. Monitor for signs of bleeding. 4. Hepatitis C without coma. The patient was not taking lactulose. 5. Liver cirrhosis with minimal ascites. Continue spironolactone. Secondary to hepatitis C. 6. Possible hepatocellular carcinoma. CT scan shows enhancing lesions. The patient is interested in pursuing further diagnosis in the setting of liver cirrhosis and hepatitis C. Most likely diagnosis is hepatocellular carcinoma. Alpha-fetoprotein level is pending. We will try to set up the patient for CT- guided biopsy. We will consult Oncology. GI is unavailable. 7. Obesity, body mass index of 33.7. Plan: Possible biopsy in the a.m. /JEFF Voice ID: [id number] Report ID: [id number] [facility] CENTERMarie
--- NOTE | 2018-08-14 18:43 | DS ---
Date of Discharge: 08/11/2018 Consultants: Dr. Gallo with Cardiology. Discharge Diagnoses: 1.Atypical chest pain, acute coronary artery syndrome ruled out. 2.Liver cirrhosis secondary to hepatitis C. 3.Acute gastrointestinal bleed, melenic stools. 4.Acute blood loss anemia. 5.Hepatitis C without coma. Hospital Course: The patient is a 53-year-old male who came into the hospital after recent discharge from [facility] for gastroesophageal varices requiring banding. The patient did receive multiple units of blood. The patient felt chest tightness and pain, and therefore came into the hospital. He was ini tially thought to have cardiac-related chest pain, however, acute coronary artery syndrome was ruled out. The patient was evaluated by Cardiology. The patient was then found to have a drop in his hemo globin, however, he did not have any hematemesis. The patient did have some melenic stools that reso lved. His hemoglobin remained stable due to transfusion. Unfortunately, GI was unavailable. CT sca n of the chest, abdomen, and pelvis was done. His liver did show lesions which were consistent with hepatocellular carcinoma, in the setting of liver cirrhosis secondary to hepatitis C and the patient was initially interested in further diagnostic workup including biopsy and further evaluation; vamsi rayo, the patient then changed his mind and wanted to follow up as an outpatient with his GI from [facility]. The patient otherwise did well over the course of the hospital stay. Denies any further bleeding. His vital signs were stable. He denies any hypotension or tachycardia. The patient was then cleared for discharge to home in a stable condition. Activity: As tolerated. Medications: As per medication reconciliation list. Followup: Follow up with PCP in 2-3 days. Follow up with GI at [facility] in 2 weeks. Return to ER for w orsening condition. Total time spent discharging the patient was 37 minutes. For physical exam findings, please see progress note dictated on the day of discharge. /JEFF Voice ID: [id number] Report ID: [id number]
== END 2018-08-11 15:25 | disposition home or self-care (01) | DRG 313 ==
LOC: ER 16:36 → INTOOBSV 20:48 → OBSVTOIN 20:48 → ERHOLD 20:48 → 4TH 22:20 → OBSVTOIN 08-10 15:55
PROVIDERS: ADMIT Internal Medicine; ATTEND Internal Medicine
DX: R07.89 Other chest pain (principal); K92.1 Melena; D62 Acute posthemorrhagic anemia; C22.0 Liver cell carcinoma; I85.00 Esophageal varices without bleeding; K70.30 Alcoholic cirrhosis of liver without ascites; B19.20 Unspecified viral hepatitis C without hepatic coma; E11.9 Type 2 diabetes mellitus without complications
CPT/HCPCS: 36415; 71045; 71260; 74177; 80048; 80053; 80061; 80076; 81003; 81015; 82105; 82962; 83735; 83880; 84484; 85014; 85018; 85025; 85610; 93005; 99285; Q9967

== ENCOUNTER 2018-09-19 19:08 | Emergency (ER) | payer SELFPAY ==
[2018-09-19 20:21] LABS: Protime INR 1.17
[2018-09-19 20:32] LABS: Albumin 2.8 g/dL (3.4-5.0); Bilirubin Direct 0.4 mg/dL (0-0.2); Bilirubin Total 0.9 mg/dL (0.2-1.0); Potassium 4.1 mmol/L (3.5-5.1); Protein, Total 7.2 g/dL (6.4-8.2); Troponin (Emerg Dept Use Only) 0.4 ng/mL (0.0-0.045)
[2018-09-19 20:36] LABS: Absolute Lymphocytes (CBC) 1.8 K/uL (0.7-4.9); Absolute Monocytes 0.7 K/uL (0.1-1.3); Absolute Neutrophil 6.2 K/uL (1.8-8.0); Basophils % 1.5 % (0-1.3); Eosinophils % 4.2 % (0-4.4); Hematocrit 21.2 % (39.6-49.0); Lymphocytes % 19.1 % (15.3-44.8); MPV 9.1 fL (7.6-11.3); Monocytes % 8.1 % (3.3-12.3); RBC Red Blood Cell Count 3.25 M/uL (4.33-5.43)
--- NOTE | 2018-09-19 20:50 | RAD REPORT ---
EXAM DESCRIPTION: RAD - Chest Single View - 09/19/2018 8:19 pm CLINICAL HISTORY: COUGH Chest pain. COMPARISON: Chest Single View dated 08/09/2018; Chest Single View dated 08/04/2018 FINDINGS: Portable technique limits examination quality. The lungs are grossly clear. The heart is normal in size. No displaced fractures. IMPRESSION: No acute intrathoracic process suspected.
[2018-09-19 21:08] LABS: Urine White Blood Cell Casts OK
[2018-09-19 21:09] LABS: Anisocytosis 2+; Blood Morphology Comment NOTED (NOT SEEN); Hypochromasia 1+; Platelet Estimate DECR; Platelets, Giant FEW; Poikilocytosis 1+; Polychromasia 1+; Target Cells FEW
[2018-09-19] MEDS ORDERED: PANTOPRAZOLE 40 MG INJ ONE (21:19)
[2018-09-19] MEDS ORDERED: NA CHLORIDE 0.9% 250 ML ONE ×2 (21:19→22:17)
[2018-09-19] MEDS ORDERED: NA CHLORIDE 0.9% 500 ML ONE (21:19)
[2018-09-19] MEDS ORDERED: OCTREOTIDE ACETATE 100 MCG/ML ONE (21:20)
--- NOTE | 2018-09-19 21:51 | ER ---
Nurse's Notes [facility] Name: Janusz Morris Jr Age: 53 yrs Sex: Male : 1965 Arrival Date: 09/19/2018 Time: 19:10 Bed 25 Private MD: Diagnosis: Esophageal varices with bleeding;Alcoholic cirrhosis of liver;Anemia in other chronic diseases classified elsewhere;Thrombocytopenia, unspecified Presentation: 09/19 19:22 Presenting complaint:. Presenting complaint: Patient states: "I started coughing really aj1 bad and the next thing I knew I was throwing up blood" Reports this occurred 15 minutes ago. Patient reports a history of esophageal varices. Transition of care: patient was not received from another setting of care. Onset of symptoms was September 19, 2018 at 19:15. Risk Assessment: Do you want to hurt yourself or someone else? Patient reports no desire to harm self or others. Initial Sepsis Screen: Does the patient meet any 2 criteria? No. Patient's initial sepsis screen is negative. Does the patient have a suspected source of infection? No. Patient's initial sepsis screen is negative. Care prior to arrival: None. 19:22 Method Of Arrival: Wheelchair aj1 19:22 Acuity: AJ 2 aj1 Triage Assessment: 19:26 General: Appears in no apparent distress. uncomfortable, Behavior is calm, cooperative, aj1 appropriate for age. Pain: Complains of pain in mid-sternal area and left upper quadrant Pain currently is 6 out of 10 on a pain scale. Neuro: Level of Consciousness is awake, alert, obeys commands. Cardiovascular: Patient's skin is warm and dry. Respiratory: Airway is patent Respiratory effort is even, unlabored, Respiratory pattern is regular, symmetrical. Historical: - Allergies: 19:26 No Known Allergies; aj1 - Home Meds: 19:26 furosemide 20 mg Oral tab 1 tab once daily [Active]; glipizide 10 mg Oral tab 1 tab aj1 once daily [Active]; lactulose 10 gram/15 mL Oral soln 60 mL 3 times per day [Active]; metformin 1,000 mg Oral tab 1 tab 2 times per day [Active]; pantoprazole 40 mg Oral TbEC 1 tab 2 times per day [Active]; propranolol 20 mg Oral tab 1 tab twice a day [Active]; spironolactone 50 mg Oral tab 1 tab once daily [Active]; - PMHx: 19:26 Alcoholism; Cirrhosis; Diabetes - NIDDM; esophageal varices; GI Bleed; Hypertension; aj1 - Immunization history:: Flu vaccine is not up to date. - Social history:: Smoking status: Patient/guardian denies using tobacco. - Ebola Screening: : Patient denies travel to an Ebola-affected area in the 21 days before illness onset. Screenin:56 Abuse screen: Denies threats or abuse. Denies injuries from another. Nutritional ed1 screening: No deficits noted. Tuberculosis screening: No symptoms or risk factors identified. Fall Risk None identified. Assessment: 20:56 Reassessment: Patient appears in no apparent distress at this time. No changes from ed1 previously documented assessment. Patient and/or family updated on plan of care and expected duration. Pain level reassessed. Patient is alert, oriented x 3, equal unlabored respirations, skin warm/dry/pink. Patient states symptoms have not improved. 20:58 Reassessment: critical lab results: Hgb-6.4 and Hct-21.2 relayed by biomass technician Meme hernandez and dr Delgado made aware. 22:07 Reassessment: Patient appears in no apparent distress at this time. Patient and/or ed1 family updated on plan of care and expected duration. Pain level reassessed. Patient is alert, oriented x 3, equal unlabored respirations, skin warm/dry/pink. Patient states symptoms have not improved. 22:26 Reassessment: Patient appears in no apparent distress at this time. Patient and/or mg2 family updated on plan of care and expected duration. Pain level reassessed. Patient is alert, oriented x 3, equal unlabored respirations, skin warm/dry/pink. blood transfusion started. 23:00 Reassessment: Patient appears in no apparent distress at this time. Patient and/or mg2 family updated on plan of care and expected duration. Pain level reassessed. Patient is alert, oriented x 3, equal unlabored respirations, skin warm/dry/pink. patient transferred to [facility] with blood transfusions going on together with other infusions. no reaction noted. Vital Signs: 19:26 BP 135 / 69; Pulse 105; Resp 20; Temp 99.0; Pulse Ox 100% on R/A; Weight 83.91 kg; aj1 Height 5 ft. 2 in. (157.48 cm) (R); Pain 6/10; 20:56 BP 130 / 70; Pulse 99; Resp 19; Pulse Ox 100% on R/A; Pain 6/10; ed1 22:07 BP 125 / 64; Pulse 92; Resp 13; Temp 97.5(O); Pulse Ox 100% on R/A; Pain 5/10; ed1 22:21 BP 117 / 68; Pulse 96; Resp 20; Temp 98.6; Pulse Ox 100% on R/A; Pain 0/10; mg2 22:56 BP 127 / 67; Pulse 91; Resp 18; Temp 98.6; Pulse Ox 100% on R/A; Pain 0/10; mg2 19:26 Body Mass Index 33.84 (83.91 kg, 157.48 cm) aj1 ED Course: 19:10 Patient arrived in ED. es 19:25 Triage completed. aj1 19:26 Arm band placed on Patient placed in an exam room. aj1 19:28 Elaine Roland LVN is Primary Nurse. ed1 19:35 Inserted saline lock: 20 gauge in left antecubital area, using aseptic technique. Blood jp3 collected. 19:35 T\\T\\S collected, blood band applied to patient. jp3 19:41 Placed in gown. Bed in low position. Call light in reach. Side rails up X 1. Warm jp3 blanket given. Pillow given. athletic monitor on. Pulse ox on. NIBP on. 19:55 Chris Delgado MD is Attending Physician. tw4 20:20 XRAY Chest (1 view) In Process Unspecified. EDMS 22:10 Inserted saline lock: 20 gauge in right antecubital area, using aseptic technique. em1 22:29 Primary Nurse role handed off by Elaine Roland LVN ed1 23:00 No provider procedures requiring assistance completed. Patient transferred, IV remains mg2 in place. Administered Medications: 21:24 Drug: ProTONIX 8 mg/hr Route: IV; Rate: 25 ml/hr; Site: left antecubital; ed1 23:00 Follow up: Response: No adverse reaction; IV Status: Infusion continued upon transfer mg2 21:24 Drug: Octreotide Infusion (50 mcg/hr) - (Octreotide 500 mcg, NS 0.9% 500 ml) Route: IV; ed1 Rate: 50 ml/hr; Site: left antecubital; 23:00 Follow up: Response: No adverse reaction; IV Status: Infusion continued upon transfer mg2 Medication: 22:26 Blood products: PRBCs X 1 unit given. See transfusion record. mg2 Outcome: 21:50 ER care complete, transfer ordered by MD. nicholson 22:28 Transferred by ground EMS to [facility], Transfer form ed1 completed. Note: Report called to Valeriano Ratliff Rn 22:28 Condition: stable 22:28 Discharge instructions given to patient, Instructed on the need for transfer, Demonstrated understanding of instructions. 23:32 Patient left the ED. mg2 Signatures: Dispatcher [employer] EDMS Lucinda Coughlin RN RN aj1 Lou Ray Eric em1 Elaine Roland, PLANT GUARD PLANT GUARD ed1 Chris Delgado MD MD tw4 Ayaz Wright RN RN mg2 Lee Melendez jp3
--- NOTE | 2018-09-19 21:51 | EDPHYS ---
Physician Documentation [facility] Name: Janusz Morris Jr Age: 53 yrs Sex: Male : 1965 Arrival Date: 09/19/2018 Time: 19:10 Bed 25 Private MD: ED Physician Chris Delgado HPI: 09/19 21:53 This 53 yrs old Male presents to ER via Wheelchair with complaints of VOMITING tw4 BLOOD. 21:53 The patient presents to the emergency department vomiting blood, a moderate amount. tw4 Onset: The symptoms/episode began/occurred today. Abdominal pain: none is appreciated. Modifying factors: The symptoms are alleviated by nothing. Associated signs and symptoms: The patient has no apparent associated signs or symptoms. Severity of symptoms: At their worst the symptoms were moderate in the emergency department the symptoms are unchanged. 23:04 The patient has experienced similar episodes in the past, several times, It is unknown tw4 whether or not the patient has had similar symptoms in the past. Historical: - Allergies: 19:26 No Known Allergies; aj1 - Home Meds: 19:26 furosemide 20 mg Oral tab 1 tab once daily [Active]; glipizide 10 mg Oral tab 1 tab aj1 once daily [Active]; lactulose 10 gram/15 mL Oral soln 60 mL 3 times per day [Active]; metformin 1,000 mg Oral tab 1 tab 2 times per day [Active]; pantoprazole 40 mg Oral TbEC 1 tab 2 times per day [Active]; propranolol 20 mg Oral tab 1 tab twice a day [Active]; spironolactone 50 mg Oral tab 1 tab once daily [Active]; - PMHx: 19:26 Alcoholism; Cirrhosis; Diabetes - NIDDM; esophageal varices; GI Bleed; Hypertension; aj1 - Immunization history:: Flu vaccine is not up to date. - Social history:: Smoking status: Patient/guardian denies using tobacco. - Ebola Screening: : Patient denies travel to an Ebola-affected area in the 21 days before illness onset. ROS: 23:04 Eyes: Negative for injury, pain, redness, and discharge, Cardiovascular: Negative for tw4 chest pain, palpitations, and edema, Respiratory: Negative for shortness of breath, cough, wheezing, and pleuritic chest pain. 23:04 Back: Negative for injury and pain, MS/Extremity: Negative for injury and deformity, Skin: Negative for injury, rash, and discoloration, Neuro: Negative for headache, weakness, numbness, tingling, and seizure. 23:04 Abdomen/GI: Positive for nausea and vomiting, nausea, vomiting, and diarrhea, nausea, vomiting, hematemesis, black/tarry stool, rectal pain, Negative for rectal bleeding. Exam: 23:04 Constitutional: This is a well developed, well nourished patient who is awake, alert, tw4 and in no acute distress. Head/Face: Normocephalic, atraumatic. Chest/axilla: Normal chest wall appearance and motion. Nontender with no deformity. No lesions are appreciated. Cardiovascular: Regular rate and rhythm with a normal S1 and S2. No gallops, murmurs, or rubs. Normal PMI, no JVD. No pulse deficits. Respiratory: Lungs have equal breath sounds bilaterally, clear to auscultation and percussion. No rales, rhonchi or wheezes noted. No increased work of breathing, no retractions or nasal flaring. Abdomen/GI: Soft, non-tender, with normal bowel sounds. No distension or tympany. No guarding or rebound. No evidence of tenderness throughout. Back: No spinal tenderness. No costovertebral tenderness. Full range of motion. MS/ Extremity: Pulses equal, no cyanosis. Neurovascular intact. Full, normal range of motion. Neuro: Awake and alert, GCS 15, oriented to person, place, time, and situation. Cranial nerves II-XII grossly intact. Motor strength 5/5 in all extremities. Sensory grossly intact. Cerebellar exam normal. Normal gait. Vital Signs: 19:26 BP 135 / 69; Pulse 105; Resp 20; Temp 99.0; Pulse Ox 100% on R/A; Weight 83.91 kg; aj1 Height 5 ft. 2 in. (157.48 cm) (R); Pain 6/10; 20:56 BP 130 / 70; Pulse 99; Resp 19; Pulse Ox 100% on R/A; Pain 6/10; ed1 22:07 BP 125 / 64; Pulse 92; Resp 13; Temp 97.5(O); Pulse Ox 100% on R/A; Pain 5/10; ed1 22:21 BP 117 / 68; Pulse 96; Resp 20; Temp 98.6; Pulse Ox 100% on R/A; Pain 0/10; mg2 22:56 BP 127 / 67; Pulse 91; Resp 18; Temp 98.6; Pulse Ox 100% on R/A; Pain 0/10; mg2 19:26 Body Mass Index 33.84 (83.91 kg, 157.48 cm) aj1 MDM: 19:55 Patient medically screened. tw4 23:04 Differential diagnosis: gastritis, hemorrhoids, hemorrhagic shock, varices. Data tw4 reviewed: vital signs, nurses notes. Data interpreted: autocad designer: rhythm is sinus tachycardia, Pulse oximetry: Interpretation: normal. Test interpretation: by ED physician or midlevel provider: ECG. Counseling: I had a detailed discussion with the patient and/or guardian regarding: the historical points, exam findings, and any diagnostic results supporting the discharge/admit diagnosis, lab results. ED course: pt transferred to [facility] D/W Dr Estrada who agrees with treatment plan and admission. 09/19 19:54 Order name: Basic Metabolic Panel; Complete Time: 21:05 ed1 09/19 21:05 Interpretation: Normal except: CL 109; GLUC 178; GFR 58; BUN 23. tw4 09/19 19:54 Order name: CBC with Diff; Complete Time: 21:38 ed1 09/19 19:54 Order name: LFT's; Complete Time: 21:05 ed1 09/19 21:05 Interpretation: Normal except: ALB 2.8; GLOB 4.4; A/G 0.6; BILID 0.4; ALK 174. tw4 09/19 19:54 Order name: Magnesium; Complete Time: 21:06 ed1 09/19 19:54 Order name: NT PRO-BNP; Complete Time: 21:06 ed1 09/19 21:06 Interpretation: Normal except: NT PRO-BNP 450. tw4 09/19 19:54 Order name: PT-INR; Complete Time: 21:04 ed1 09/19 21:04 Interpretation: Normal except: PT 13.8. tw4 09/19 19:54 Order name: Troponin (emerg Dept Use Only); Complete Time: 21:05 ed1 09/19 21:06 Interpretation: Normal except: TROPED 0.40. tw4 09/19 19:54 Order name: XRAY Chest (1 view) ed1 09/19 19:54 Order name: EKG; Complete Time: 19:55 ed1 09/19 19:54 Order name: TS ed1 09/19 20:52 Order name: CBC Smear Scan; Complete Time: 21:38 EDOR 09/19 21:55 Order name: Packed RBC Leukored -1 EDOR 09/19 19:54 Order name: Cardiac monitoring; Complete Time: 19:54 ed1 09/19 19:54 Order name: EKG - Nurse/Tech; Complete Time: 19:54 ed1 09/19 19:54 Order name: IV Saline Lock; Complete Time: 19:54 ed1 09/19 19:54 Order name: Labs collected and sent; Complete Time: 19:55 ed1 09/19 19:54 Order name: O2 Per Protocol; Complete Time: 19:55 ed1 09/19 19:54 Order name: O2 Sat Monitoring; Complete Time: 19:55 ed1 09/19 21:44 Order name: Transfuse; Complete Time: 01:00 tw4 EC:06 Rate is 113 beats/min. Rhythm is regular. QRS [place] is Normal. QRS interval is normal. tw4 QT interval is normal. No Q waves. T waves are Normal. No ST changes noted. Clinical impression: Abnormal EKG without significant change. Interpreted by me. Reviewed by me. Administered Medications: 21:24 Drug: ProTONIX 8 mg/hr Route: IV; Rate: 25 ml/hr; Site: left antecubital; ed1 23:00 Follow up: Response: No adverse reaction; IV Status: Infusion continued upon transfer mg2 21:24 Drug: Octreotide Infusion (50 mcg/hr) - (Octreotide 500 mcg, NS 0.9% 500 ml) Route: IV; ed1 Rate: 50 ml/hr; Site: left antecubital; 23:00 Follow up: Response: No adverse reaction; IV Status: Infusion continued upon transfer mg2 Disposition: 09/19/18 21:50 Transfer ordered to [facility]. Diagnosis are Esophageal varices with bleeding, Alcoholic cirrhosis of liver, Anemia in other chronic diseases classified elsewhere, Thrombocytopenia, unspecified. - Reason for transfer: Higher level of care. - Accepting physician is Dr Estrada. - Condition is Fair. - Problem is an ongoing problem. - Symptoms are unchanged. Signatures: Dispatcher [employer] EDOR Lucinda Coughlin RN RN aj1 Elaine Roland, AUTOMOTIVE TIRE TECHNICIAN AUTOMOTIVE TIRE TECHNICIAN ed1 Chris Delgado MD MD tw4 Ayaz Wright, RN RN mg2 Corrections: (The following items were deleted from the chart) 23:32 21:50 09/19/2018 21:50 Transfer ordered to [facility]. Diagnosis is Esophageal mg2 varices with bleeding; Alcoholic cirrhosis of liver; Anemia in other chronic diseases classified elsewhere; Thrombocytopenia, unspecified. Reason for transfer: Higher level of care. Accepting physician is Dr Estrada. Condition is Fair. Problem is an ongoing problem. Symptoms are unchanged. tw4
--- NOTE | 2018-09-20 06:53 | EKG ---
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
== END 2018-09-19 23:32 | disposition short-term general hospital (02) ==
LOC: ER 19:08
DX: K70.30 Alcoholic cirrhosis of liver without ascites (principal); I85.11 Secondary esophageal varices with bleeding; D63.8 Anemia in other chronic diseases classified elsewhere; R94.31 Abnormal electrocardiogram [ECG] [EKG]; E11.9 Type 2 diabetes mellitus without complications; I10 Essential (primary) hypertension; Z79.84 Long term (current) use of oral hypoglycemic drugs; Z79.899 Other long term (current) drug therapy
CPT/HCPCS: 36415; 36430; 71045; 80048; 80076; 83735; 83880; 84484; 85025; 85610; 86850; 86900; 86901; 93005; 96365; 96366; 96368; 99285; C9113; J2354; P9016

== ENCOUNTER 2018-12-04 16:53 | Emergency (ER) | payer MEDICAID, OTHER ==
--- OUTSIDE RECORDS SUMMARY | 2018-12-04 16:56 | XMS REPORT ---
:1965 [facility] Address [address] [place] [address] Dr. Van [address] [place] [id number] Care Team Providers Name Role Phone Unavailable Unavailable Unavailable Problems This patient has no known problems. Allergies, Adverse Reactions, Alerts This patient has no known allergies or adverse reactions. Medications This patient has no known medications.
[2018-12-04 19:23] LABS: Absolute Lymphocytes (CBC) 1.6 K/uL (0.7-4.9); Absolute Monocytes 0.8 K/uL (0.1-1.3); Absolute Neutrophil 4.7 K/uL (1.8-8.0); Basophils % 0.9 % (0-1.3); Eosinophils % 3.1 % (0-4.4); Hematocrit 30.1 % (39.6-49.0); Lymphocytes % 21.5 % (15.3-44.8); MPV 9.1 fL (7.6-11.3); Monocytes % 10.4 % (3.3-12.3); RBC Red Blood Cell Count 4.76 M/uL (4.33-5.43)
[2018-12-04] MEDS ORDERED: ONDANSETRON 4 MG/2 ML VIAL ONE (19:25)
[2018-12-04] MEDS ORDERED: NA CHLORIDE 0.9% 1,000 ML ONE (19:25)
[2018-12-04] MEDS ORDERED: FENTANYL CITR 100 MCG/2 ML ONE (19:25)
[2018-12-04] MEDS ORDERED: CLINDAMYCIN 900MG/D5W 900 MG/50 ML IVPB IV ONE (19:26)
[2018-12-04 19:42] LABS: Potassium 3.8 mmol/L (3.5-5.1)
[2018-12-04 20:37] LABS: Anisocytosis 1+; Blood Morphology Comment NOTED (NOT SEEN); Hypochromasia 2+; Platelet Estimate DECR; Rouleau NOTED; Target Cells FEW; Urine White Blood Cell Casts OK
--- NOTE | 2018-12-04 20:46 | EDPHYS ---
Physician Documentation [facility] Name: Janusz Morris Jr Age: 53 yrs Sex: Male : 1965 Arrival Date: 12/04/2018 Time: 16:55 Bed 25 Private MD: Sean [facility] ED Physician Jorge Lindsey HPI: 12/04 18:49 This 53 yrs old Male presents to ER via Ambulatory with complaints of Facial amanuel Swelling. 18:49 The patient or guardian reports pain, swelling, tenderness. The complaints affect the amanuel left jaw. Onset: The symptoms/episode began/occurred 3 day(s) ago. Associated signs and symptoms: The patient has no apparent associated signs or symptoms. The problem is located in the left jaw. Severity of symptoms: At their worst the symptoms were mild. Historical: - Allergies: 17:02 No Known Allergies; sg - PMHx: 17:02 Alcoholism; Cirrhosis; Diabetes - NIDDM; esophageal varices; GI Bleed; Hypertension; sg - Immunization history:: Adult Immunizations up to date. - Social history:: Smoking status: Patient/guardian denies using tobacco. - Ebola Screening: : Patient negative for fever greater than or equal to 101.5 degrees Fahrenheit, and additional compatible Ebola Virus Disease symptoms Patient denies exposure to infectious person Patient denies travel to an Ebola-affected area in the 21 days before illness onset No symptoms or risks identified at this time. - Family history:: not pertinent. ROS: 18:49 Constitutional: Negative for fever, chills, and weight loss, Eyes: Negative for injury, amanuel pain, redness, and discharge, Neck: Negative for injury, pain, and swelling, Cardiovascular: Negative for chest pain, palpitations, and edema, Respiratory: Negative for shortness of breath, cough, wheezing, and pleuritic chest pain, Abdomen/GI: Negative for abdominal pain, nausea, vomiting, diarrhea, and constipation, Back: Negative for injury and pain, : Negative for injury, bleeding, discharge, and swelling, MS/Extremity: Negative for injury and deformity, Skin: Negative for injury, rash, and discoloration, Neuro: Negative for headache, weakness, numbness, tingling, and seizure, Psych: Negative for depression, anxiety, suicide ideation, homicidal ideation, and hallucinations, Allergy/Immunology: Negative for hives, rash, and allergies, Endocrine: Negative for neck swelling, polydipsia, polyuria, polyphagia, and marked weight changes, Hematologic/Lymphatic: Negative for swollen nodes, abnormal bleeding, and unusual bruising. 18:49 ENT: Positive for dental pain. Exam: 18:49 Constitutional: This is a well developed, well nourished patient who is awake, alert, amanuel and in no acute distress. Eyes: Pupils equal round and reactive to light, extra-ocular motions intact. Lids and lashes normal. Conjunctiva and sclera are non-icteric and not injected. Cornea within normal limits. Periorbital areas with no swelling, redness, or edema. ENT: Nares patent. No nasal discharge, no septal abnormalities noted. Tympanic membranes are normal and external auditory canals are clear. Oropharynx with no redness, swelling, or masses, exudates, or evidence of obstruction, uvula midline. Mucous membranes moist. Neck: Trachea midline, no thyromegaly or masses palpated, and no cervical lymphadenopathy. Supple, full range of motion without nuchal rigidity, or vertebral point tenderness. No Meningismus. Chest/axilla: Normal chest wall appearance and motion. Nontender with no deformity. No lesions are appreciated. Cardiovascular: Regular rate and rhythm with a normal S1 and S2. No gallops, murmurs, or rubs. Normal PMI, no JVD. No pulse deficits. Respiratory: Lungs have equal breath sounds bilaterally, clear to auscultation and percussion. No rales, rhonchi or wheezes noted. No increased work of breathing, no retractions or nasal flaring. Abdomen/GI: Soft, non-tender, with normal bowel sounds. No distension or tympany. No guarding or rebound. No evidence of tenderness throughout. Back: No spinal tenderness. No costovertebral tenderness. Full range of motion. Skin: Warm, dry with normal turgor. Normal color with no rashes, no lesions, and no evidence of cellulitis. MS/ Extremity: Pulses equal, no cyanosis. Neurovascular intact. Full, normal range of motion. Neuro: Awake and alert, GCS 15, oriented to person, place, time, and situation. Cranial nerves II-XII grossly intact. Motor strength 5/5 in all extremities. Sensory grossly intact. Cerebellar exam normal. Normal gait. Psych: Awake, alert, with orientation to person, place and time. Behavior, mood, and affect are within normal limits. 18:49 Head/face: Noted is swelling, that is moderate, of the left jaw. Vital Signs: 17:05 BP 155 / 77; Pulse 77; Resp 17; Temp 98.7; Pulse Ox 100% on R/A; Weight 85.28 kg; sg Height 5 ft. 2 in. (157.48 cm); Pain 0/10; 18:02 BP 151 / 86; Pulse 67; Resp 19; Pulse Ox 100% ; ca1 19:00 BP 155 / 80; Pulse 66; Resp 19; Pulse Ox 100% ; ca1 19:52 BP 135 / 79; Pulse 65; Resp 19; Pulse Ox 100% on R/A; ca1 20:37 BP 135 / 69; Pulse 65; Resp 19; Pulse Ox 100% on R/A; ca1 17:05 Body Mass Index 34.39 (85.28 kg, 157.48 cm) sg MDM: 18:26 [facility] 18:49 Data reviewed: vital signs, nurses notes, lab test result(s). [facility] 20:43 Counseling: I had a detailed discussion with the patient and/or guardian regarding: the jmm historical points, exam findings, and any diagnostic results supporting the discharge/admit diagnosis, lab results, the need for outpatient follow up, to return to the emergency department if symptoms worsen or persist or if there are any questions or concerns that arise at home. 12/04 18:48 Order name: CBC with Diff; Complete Time: 20:41 [facility] 12/04 18:48 Order name: Comprehensive Metabolic Panel; Complete Time: 20:37 [facility] 12/04 19:34 Order name: CBC Smear Scan; Complete Time: 20:41 EDMS Administered Medications: 19:09 Drug: NS 0.9% 1000 ml Route: IV; Rate: 125 ml/hr; Site: left antecubital; ca1 19:10 Drug: fentaNYL (PF) 25 mcg Route: IVP; Site: left antecubital; ca1 20:03 Follow up: Response: No adverse reaction; Pain is decreased ca1 19:12 Drug: Zofran 4 mg Route: IVP; Site: left antecubital; ca1 20:03 Follow up: Response: No adverse reaction ca1 20:03 Follow up: Response: No adverse reaction; Nausea is decreased ca1 19:13 Drug: Clindamycin 900 mg Route: IVPB; Infused Over: 30 mins; Site: left antecubital; ca1 20:02 Follow up: Response: No adverse reaction; IV Status: Completed infusion ca1 Disposition: 12/05 08:01 Co-signature as Attending Physician, Jorge Lindsey MD I agree with the assessment and [facility] plan of care. Disposition: 12/04/18 20:45 Discharged to Home. Impression: Dental caries, Dental root caries, Type 2 diabetes mellitus. - Condition is Stable. - Discharge Instructions: Dental Abscess, Dental Caries, Adult, Dental Pain, Type 2 Diabetes Mellitus, Diagnosis, Adult, Dental Pain, [id number], Diet and Dental Disease, Type 2 Diabetes Mellitus, Diagnosis, Adult, [id number], Dental Caries, Pabl-co-Endl. - Prescriptions for Clindamycin HCl 300 mg Oral Capsule - take 1 capsule by ORAL route every 6 hours for 10 days; 40 capsule. Tylenol- Codeine #3 300-30 mg Oral Tablet - take 1 tablet by ORAL route every 6 hours As needed; 12 tablet. - Medication Reconciliation Form, Thank You Letter, Antibiotic Education, Prescription Opioid Use form. - Follow up: Tima Estrada; When: 2 - 3 days; Reason: Recheck today's complaints, Continuance of care, Re-evaluation by your physician. Follow up: Estuardo Le; When: 1 - 2 days; Reason: Recheck today's complaints, Re-evaluation by your physician. - Problem is new. - Symptoms have improved. Signatures: Dispatcher [employer] EDStuart Hebert RN RN sg Anderson, Corey, MD MD cha Mickail, Joel, PA PA jmm Acob, Cheryl, RN RN ca1 Corrections: (The following items were deleted from the chart) 12/04 21:02 20:45 12/04/2018 20:45 Discharged to Home. Impression: Dental caries; Dental root ca1 caries; Type 2 diabetes mellitus. Condition is Stable. Discharge Instructions: Dental Abscess, Dental Caries, Adult, Dental Pain, Type 2 Diabetes Mellitus, Diagnosis, Adult, Dental Pain, [id number], Diet and Dental Disease, Type 2 Diabetes Mellitus, Diagnosis, Adult, Rugy-lc-Inza, Dental Caries, Nsmg-jv-Fout. Prescriptions for Clindamycin HCl 300 mg Oral Capsule - take 1 capsule by ORAL route every 6 hours for 7 days; 28 capsule, Tylenol-Codeine #3 300-30 mg Oral Tablet - take 2 tablet by ORAL route every 6 hours As needed; 30 tablet. and Forms are Medication Reconciliation Form, Thank You Letter, Antibiotic Education, Prescription Opioid Use. Follow up: Tima Estrada; When: 2 - 3 days; Reason: Recheck today's complaints, Continuance of care, Re-evaluation by your physician. Follow up: Estuardo Le; When: 1 - 2 days; Reason: Recheck today's complaints, Re-evaluation by your physician. Problem is new. Symptoms have improved. jmm
--- NOTE | 2018-12-04 20:46 | ER ---
Nurse's Notes [facility] Name: Janusz Morris Jr Age: 53 yrs Sex: Male : 1965 Arrival Date: 12/04/2018 Time: 16:55 Bed 25 Private MD: Tima Estrada Diagnosis: Dental caries;Dental root caries;Type 2 diabetes mellitus Presentation: 12/04 17:06 Presenting complaint: states: Hes got swelling to the outside of his left cheek, sg no insect bites or injury reported, but has a history of esophageal varices with cirrhosis so i just want him to get looked at, denies pain N/V/D/Fever at this time. Transition of care: patient was not received from another setting of care. Onset of symptoms was December 04, 2018. Risk Assessment: Do you want to hurt yourself or someone else? Patient reports no desire to harm self or others. Initial Sepsis Screen: Does the patient meet any 2 criteria? No. Patient's initial sepsis screen is negative. Does the patient have a suspected source of infection? No. Patient's initial sepsis screen is negative. Care prior to arrival: None. 17:06 Method Of Arrival: Ambulatory sg 17:06 Acuity: AJ 4 sg Historical: - Allergies: 17:02 No Known Allergies; sg - PMHx: 17:02 Alcoholism; Cirrhosis; Diabetes - NIDDM; esophageal varices; GI Bleed; Hypertension; sg - Immunization history:: Adult Immunizations up to date. - Social history:: Smoking status: Patient/guardian denies using tobacco. - Ebola Screening: : Patient negative for fever greater than or equal to 101.5 degrees Fahrenheit, and additional compatible Ebola Virus Disease symptoms Patient denies exposure to infectious person Patient denies travel to an Ebola-affected area in the 21 days before illness onset No symptoms or risks identified at this time. - Family history:: not pertinent. Screenin:20 Abuse screen: Denies threats or abuse. Denies injuries from another. Nutritional ca1 screening: No deficits noted. Tuberculosis screening: No symptoms or risk factors identified. Fall Risk IV access (20 points). Assessment: 18:20 General:. General:. General: Appears in no apparent distress. comfortable, Behavior is ca1 calm, cooperative, appropriate for age. Pain: Denies pain. Neuro: Level of Consciousness is awake, alert, obeys commands, Oriented to person, place, time, situation. Cardiovascular: Heart tones S1 S2 present Capillary refill < 3 seconds. Respiratory: Reports cough that is non-productive, Airway is patent Respiratory effort is even, unlabored, Respiratory pattern is regular, symmetrical, Breath sounds are clear bilaterally. GI: Abdomen is round non-distended, Bowel sounds present X 4 quads. Abd is non tender X 4 quads Abd is rigid in right upper quadrant and left upper quadrant Reports nausea. : No deficits noted. No signs and/or symptoms were reported regarding the genitourinary system. EENT: EENT: No deficits noted. No signs and/or symptoms were reported regarding the EENT system. Derm: Skin is intact, is healthy with good turgor, Skin is dry, Skin is pale, Skin temperature is warm. Musculoskeletal: Circulation, motion, and sensation intact. Capillary refill < 3 seconds. 19:15 Reassessment: Patient appears in no apparent distress at this time. Patient and/or ca1 family updated on plan of care and expected duration. Pain level reassessed. Patient is alert, oriented x 3, equal unlabored respirations, skin warm/dry/pink. 20:37 Reassessment: Patient appears in no apparent distress at this time. Patient and/or ca1 family updated on plan of care and expected duration. Pain level reassessed. Patient is alert, oriented x 3, equal unlabored respirations, skin warm/dry/pink. SONYA Mcqueen at bedside. Vital Signs: 17:05 BP 155 / 77; Pulse 77; Resp 17; Temp 98.7; Pulse Ox 100% on R/A; Weight 85.28 kg; sg Height 5 ft. 2 in. (157.48 cm); Pain 0/10; 18:02 BP 151 / 86; Pulse 67; Resp 19; Pulse Ox 100% ; ca1 19:00 BP 155 / 80; Pulse 66; Resp 19; Pulse Ox 100% ; ca1 19:52 BP 135 / 79; Pulse 65; Resp 19; Pulse Ox 100% on R/A; ca1 20:37 BP 135 / 69; Pulse 65; Resp 19; Pulse Ox 100% on R/A; ca1 17:05 Body Mass Index 34.39 (85.28 kg, 157.48 cm) ED Course: 16:55 Patient arrived in ED. as 16:55 Tima Estrada DO is Private Physician. as 17:01 Arm band placed on. sg 17:08 Triage completed. sg 18:20 Patient has correct armband on for positive identification. Placed in gown. Bed in low ca1 position. Call light in reach. Side rails up X 1. Pulse ox on. NIBP on. Warm blanket given. 18:26 Jorge Lindsey MD is Attending Physician. amanuel 18:57 Belle Soriano RN is Primary Nurse. ca1 19:07 Initial lab(s) drawn, by nd, sent to lab. Inserted saline lock: 22 gauge in left lt1 antecubital area, using aseptic technique. 19:08 [facility] 20:45 Tima Estrada DO is Referral Physician. [facility] 20:45 Estuardo Le DDS is Referral Physician. [facility] 20:50 No provider procedures requiring assistance completed. IV discontinued, intact, ca1 bleeding controlled, No redness/swelling at site. Pressure dressing applied. Administered Medications: 19:09 Drug: NS 0.9% 1000 ml Route: IV; Rate: 125 ml/hr; Site: left antecubital; ca1 19:10 Drug: fentaNYL (PF) 25 mcg Route: IVP; Site: left antecubital; ca1 20:03 Follow up: Response: No adverse reaction; Pain is decreased ca1 19:12 Drug: Zofran 4 mg Route: IVP; Site: left antecubital; ca1 20:03 Follow up: Response: No adverse reaction ca1 20:03 Follow up: Response: No adverse reaction; Nausea is decreased ca1 19:13 Drug: Clindamycin 900 mg Route: IVPB; Infused Over: 30 mins; Site: left antecubital; ca1 20:02 Follow up: Response: No adverse reaction; IV Status: Completed infusion ca1 Outcome: 20:45 Discharge ordered by . [facility] 20:55 Discharged to home ambulatory, with significant other. ca1 20:55 Condition: stable 20:55 Discharge instructions given to patient, family, Instructed on discharge instructions, follow up and referral plans. medication usage, Demonstrated understanding of instructions, follow-up care, medications, Prescriptions given X 2. 21:02 Patient left the ED. ca1 Signatures: Stuart Rosales RN RN Jorge Lindsey MD MD cha Mickail, Joel, PA PA jmm Bryan, Majo as AcBelle guadarrama RN RN ca1 Denice, Felipa lt1 Corrections: (The following items were deleted from the chart) 50 16:20 General: Appears in no apparent distress. comfortable, Behavior is calm, ca1 cooperative, appropriate for age, ca1 16:20 Pain: Denies pain. ca1 ca1 16:20 Neuro: Level of Consciousness is awake, alert, obeys commands, Oriented to ca1 person, place, time, situation, ca1 : 16:20 General: ca1 ca1 16:20 Cardiovascular: Heart tones S1 S2 present Capillary refill < 3 seconds ca1 ca1 16:20 Respiratory: Reports cough that is non-productive, Airway is patent Respiratory ca1 effort is even, unlabored, Respiratory pattern is regular, symmetrical, Breath sounds are clear bilaterally. ca1 : 16:20 GI: Abdomen is round non-distended, Bowel sounds present X 4 quads. Abd is non ca1 tender X 4 quads Abd is rigid in right upper quadrant and left upper quadrant Reports nausea, ca1 : 16:20 : No deficits noted. No signs and/or symptoms were reported regarding the ca1 genitourinary system. ca1 : 16:20 Derm: Skin is intact, is healthy with good turgor, Skin is dry, Skin is pale, ca1 Skin temperature is warm ca1 : 16:20 Musculoskeletal: Circulation, motion, and sensation intact. Capillary refill < 3 ca1 seconds, ca1 16:20 EENT: No deficits noted. No signs and/or symptoms were reported regarding the ca1 EENT system. EENT: No deficits noted. No signs and/or symptoms were reported regarding the EENT system. ca1 : 16:20 General: ca1 ca1 16:20 Patient has correct armband on for positive identification. Placed in gown. Bed ca1 in low position. Call light in reach. Side rails up X 1. ca1 16:20 Pulse ox on. NIBP on. ca1 ca1 16:20 Warm blanket given. ca1 ca1 16:20 Abuse screen: Denies threats or abuse. Denies injuries from another. ca1 ca1 16:20 Tuberculosis screening: No symptoms or risk factors identified. ca1 ca1 19:51 16:20 Nutritional screening: No deficits noted. ca1 ca1 :51 16:20 Fall Risk IV access (20 points). ca1 ca1 20:39 20:37 Reassessment: Patient appears in no apparent distress at this time. Patient ca1 and/or family updated on plan of care and expected duration. Pain level reassessed. Patient is alert, oriented x 3, equal unlabored respirations, skin warm/dry/pink. ca1
== END 2018-12-04 21:02 | disposition home or self-care (01) ==
LOC: ER 16:53
DX: K02.9 Dental caries, unspecified (principal); E11.9 Type 2 diabetes mellitus without complications
CPT/HCPCS: 36415; 80053; 85025; 96365; 96375; 99284; J2405; J3010; J7030

== ENCOUNTER 2018-12-05 18:30 | Emergency (ER) | payer MEDICAID ==
--- OUTSIDE RECORDS SUMMARY | 2018-12-05 18:32 | XMS REPORT ---
:1965 [facility] Address [address] [place] [address] Dr. Van [address] [place] [id number] Care Team Providers Name Role Phone Unavailable Unavailable Unavailable Problems This patient has no known problems. Allergies, Adverse Reactions, Alerts This patient has no known allergies or adverse reactions. Medications This patient has no known medications.
--- NOTE | 2018-12-05 23:21 | EDPHYS ---
Physician Documentation [facility] Name: Janusz Morris Jr Age: 53 yrs Sex: Male : 1965 Arrival Date: 12/05/2018 Time: 18:33 Bed 26 Private MD: ED Physician Yassine Greene HPI: 12/06 01:11 This 53 yrs old Male presents to ER via Wheelchair with complaints of gs abdominal pain. 01:15 The patient presents with abdominal pain that is diffuse. Onset: The symptoms/episode gs began/occurred yesterday. The symptoms do not radiate. Associated signs and symptoms: Pertinent positives: nausea and vomiting. 01:16 Associated signs and symptoms: Pertinent positives: fever, chills, cough. The symptoms gs are described as crampy. Modifying factors: The symptoms are alleviated by nothing, the symptoms are aggravated by nothing. Severity of pain: At its worst the pain was moderate in the emergency department the pain is unchanged. The patient has experienced similar episodes in the past, a few times. Historical: - Allergies: 12/05 19:35 No Known Allergies; aj1 - Home Meds: 19:35 furosemide 20 mg Oral tab 1 tab once daily [Active]; glipizide 10 mg Oral tab 1 tab aj1 once daily [Active]; lactulose 10 gram/15 mL Oral soln 60 mL 3 times per day [Active]; metformin 1,000 mg Oral tab 1 tab 2 times per day [Active]; pantoprazole 40 mg Oral TbEC 1 tab 2 times per day [Active]; propranolol 20 mg Oral tab 1 tab twice a day [Active]; spironolactone 50 mg Oral tab 1 tab once daily [Active]; - PMHx: 19:35 Alcoholism; Cirrhosis; Diabetes - NIDDM; esophageal varices; GI Bleed; Hypertension; aj1 - Immunization history:: Flu vaccine is not up to date. - Social history:: Smoking status: Patient/guardian denies using tobacco. - Ebola Screening: : Patient denies travel to an Ebola-affected area in the 21 days before illness onset. ROS: 12/06 01:16 All other systems are negative. gs Exam: 01:16 Head/Face: Normocephalic, atraumatic. Eyes: Pupils equal round and reactive to light, gs extra-ocular motions intact. Lids and lashes normal. Conjunctiva and sclera are non-icteric and not injected. Cornea within normal limits. Periorbital areas with no swelling, redness, or edema. ENT: Nares patent. No nasal discharge, no septal abnormalities noted. Tympanic membranes are normal and external auditory canals are clear. Oropharynx with no redness, swelling, or masses, exudates, or evidence of obstruction, uvula midline. Mucous membranes moist. Neck: Trachea midline, no thyromegaly or masses palpated, and no cervical lymphadenopathy. Supple, full range of motion without nuchal rigidity, or vertebral point tenderness. No Meningismus. Chest/axilla: Normal chest wall appearance and motion. Nontender with no deformity. No lesions are appreciated. Cardiovascular: Regular rate and rhythm with a normal S1 and S2. No gallops, murmurs, or rubs. Normal PMI, no JVD. No pulse deficits. Respiratory: Lungs have equal breath sounds bilaterally, clear to auscultation and percussion. No rales, rhonchi or wheezes noted. No increased work of breathing, no retractions or nasal flaring. Back: No spinal tenderness. No costovertebral tenderness. Full range of motion. Skin: Warm, dry with normal turgor. Normal color with no rashes, no lesions, and no evidence of cellulitis. MS/ Extremity: Pulses equal, no cyanosis. Neurovascular intact. Full, normal range of motion. Neuro: Awake and alert, GCS 15, oriented to person, place, time, and situation. Cranial nerves II-XII grossly intact. Motor strength 5/5 in all extremities. Sensory grossly intact. Cerebellar exam normal. Normal gait. 01:16 Constitutional: The patient appears in no acute distress, alert, awake. 01:16 Abdomen/GI: Palpation: moderate abdominal tenderness, in all quadrants. Vital Signs: 12/05 19:35 BP 149 / 79; Pulse 76; Resp 20; Temp 98.7; Pulse Ox 100% on R/A; Weight 85.28 kg; aj1 Height 5 ft. 2 in. (157.48 cm) (R); Pain 8/10; 21:00 BP 137 / 76 LA; Pulse 66; Resp 16 S; Pulse Ox 98% on R/A; rv 23:30 BP 144 / 77 LA; Pulse 80; Resp 18 S; Pulse Ox 98% on R/A; rv 19:35 Body Mass Index 34.39 (85.28 kg, 157.48 cm) aj1 MDM: 21:39 Patient medically screened. 12/06 01:16 Differential diagnosis: gastritis, gastroesophageal reflux disease, pancreatitis, gs Peptic Ulcer Disease, flu. Data reviewed: vital signs, nurses notes. Response to treatment: the patient's symptoms have resolved after treatment. ED course: pt refused bloodwork and states wants to go home. 12/05 21:36 Order name: Flu 12/05 21:36 Order name: IV Saline Lock; Complete Time: 22:51 12/05 21:36 Order name: CT Abd/Pelvis - Without Cont 12/05 21:37 Order name: Influenza Screen (A EDMS Administered Medications: No medications were administered Disposition: 12/05/18 23:20 Discharged to Home. Impression: Generalized abdominal pain. - Condition is Stable. - Discharge Instructions: Abdominal Pain, Adult. - Prescriptions for Zofran 4 mg Oral Tablet - take 1 tablet by ORAL route every 12 hours As needed; 6 tablet. - Medication Reconciliation Form, Thank You Letter, Antibiotic Education, Prescription Opioid Use form. - Follow up: Private Physician; When: 1 - 2 days; Reason: Re-evaluation by your physician. Signatures: Dispatcher [employer] EDLucinda Irving RN RN aj1 Yassine Greene MD MD Eloy Doyle RN RN rv Corrections: (The following items were deleted from the chart) 12/05 23:34 23:20 12/05/2018 23:20 Discharged to Home. Impression: Generalized abdominal pain. rv Condition is Stable. Forms are Medication Reconciliation Form, Thank You Letter, Antibiotic Education, Prescription Opioid Use. Follow up: Private Physician; When: 1 - 2 days; Reason: Re-evaluation by your physician.
--- NOTE | 2018-12-05 23:21 | ER ---
Nurse's Notes [facility] Name: Janusz Morris Jr Age: 53 yrs Sex: Male : 1965 Arrival Date: 12/05/2018 Time: 18:33 Bed 26 Private MD: Diagnosis: Generalized abdominal pain Presentation: 12/05 19:32 Presenting complaint: Patient states: Shortness of breath, chest pain on the right side aj1 since this morning. Patient was seen here last night because he has swelling in his face, and he was diagnosed with an abscess. Patient vomited once today and he feels like his stomach is bloated. Transition of care: patient was not received from another setting of care. Onset of symptoms was December 05, 2018. Risk Assessment: Do you want to hurt yourself or someone else? Patient reports no desire to harm self or others. Initial Sepsis Screen: Does the patient meet any 2 criteria? No. Patient's initial sepsis screen is negative. Does the patient have a suspected source of infection? No. Patient's initial sepsis screen is negative. Care prior to arrival: None. 19:32 Method Of Arrival: Wheelchair aj1 19:32 Acuity: AJ 3 aj1 Triage Assessment: 19:35 General: Appears in no apparent distress. uncomfortable, Behavior is calm, cooperative, aj1 appropriate for age. Pain: Complains of pain in anterior aspect of right upper chest Pain does not radiate. Pain currently is 8 out of 10 on a pain scale. Neuro: Level of Consciousness is awake, alert, obeys commands, Oriented to person, place, time, situation. Cardiovascular: Patient's skin is warm and dry. Respiratory: Reports shortness of breath cough that is persistent Airway is patent Respiratory effort is even, unlabored, Respiratory pattern is regular, symmetrical, Breath sounds are clear bilaterally. Onset: The symptoms/episode began/occurred today, the patient has mild shortness of breath. GI: Abdomen is round Reports nausea, vomiting, Patient currently denies diarrhea. Historical: - Allergies: 19:35 No Known Allergies; aj1 - Home Meds: 19:35 furosemide 20 mg Oral tab 1 tab once daily [Active]; glipizide 10 mg Oral tab 1 tab aj1 once daily [Active]; lactulose 10 gram/15 mL Oral soln 60 mL 3 times per day [Active]; metformin 1,000 mg Oral tab 1 tab 2 times per day [Active]; pantoprazole 40 mg Oral TbEC 1 tab 2 times per day [Active]; propranolol 20 mg Oral tab 1 tab twice a day [Active]; spironolactone 50 mg Oral tab 1 tab once daily [Active]; - PMHx: 19:35 Alcoholism; Cirrhosis; Diabetes - NIDDM; esophageal varices; GI Bleed; Hypertension; aj1 - Immunization history:: Flu vaccine is not up to date. - Social history:: Smoking status: Patient/guardian denies using tobacco. - Ebola Screening: : Patient denies travel to an Ebola-affected area in the 21 days before illness onset. Screenin:16 Abuse screen: Denies threats or abuse. Denies injuries from another. Nutritional rv screening: No deficits noted. Tuberculosis screening: No symptoms or risk factors identified. Fall Risk None identified. Assessment: 20:15 General: Appears in no apparent distress. comfortable, Behavior is calm, cooperative. rv Pain: Denies pain. Neuro: Level of Consciousness is awake, alert, obeys commands, Oriented to person, place, time, situation. Cardiovascular: Rhythm is regular. Respiratory: Airway is patent. Respiratory: Respiratory effort is even, Parent/caregiver reports the patient having shortness of breath cough that is. GI: No signs and/or symptoms were reported involving the gastrointestinal system. : No signs and/or symptoms were reported regarding the genitourinary system. EENT: No signs and/or symptoms were reported regarding the EENT system. Derm: Skin is intact. Vital Signs: 19:35 BP 149 / 79; Pulse 76; Resp 20; Temp 98.7; Pulse Ox 100% on R/A; Weight 85.28 kg; aj1 Height 5 ft. 2 in. (157.48 cm) (R); Pain 8/10; 21:00 BP 137 / 76 LA; Pulse 66; Resp 16 S; Pulse Ox 98% on R/A; rv 23:30 BP 144 / 77 LA; Pulse 80; Resp 18 S; Pulse Ox 98% on R/A; rv 19:35 Body Mass Index 34.39 (85.28 kg, 157.48 cm) aj1 ED Course: 18:33 Patient arrived in ED. tw3 19:34 Triage completed. aj1 19:35 Arm band placed on Patient placed in waiting room, Patient notified of wait time. EKG aj1 completed in triage. Results shown to MD. 20:17 Patient has correct armband on for positive identification. Placed in gown. Bed in low rv position. Call light in reach. Side rails up X 1. Adult w/ patient. performance analyst on. Pulse ox on. NIBP on. 20:36 Yassine Greene MD is Attending Physician. gs 21:[address] via wheelchair. jg6 21:58 CT completed. Patient tolerated procedure well. Patient moved back from CT. 2 21:59 CT Abd/Pelvis - Without Cont In Process Unspecified. EDMS 22:21 Flu and/or RSV swab sent to lab. lt1 22:21 Missed attempt(s): 22 gauge in left antecubital area. lt1 22:40 Inserted saline lock: 22 gauge in left forearm, using aseptic technique. rv 22:51 Flu Sent. rv 23:32 No provider procedures requiring assistance completed. IV discontinued, bleeding rv controlled, No redness/swelling at site. Pressure dressing applied. Administered Medications: No medications were administered Outcome: 23:20 Discharge ordered by MD. gs 23:33 Discharged to home ambulatory. rv 23:33 Condition: good 23:33 Discharge instructions given to patient, Instructed on discharge instructions, follow up and referral plans. medication usage, Demonstrated understanding of instructions, follow-up care, medications, Prescriptions given X 1. 23:34 Patient left the ED. rv Signatures: Dispatcher [employer] EDMS Lucinda Coughlin RN RN aj1 Anabella Huang 3 Ale Gorman 2 Yassine Greene MD MD Eloy Doyle RN RN rv Evelina Pack jg6 Felipa Galdamez 1 Corrections: (The following items were deleted from the chart) 23:33 23:32 Patient did not have IV access during this emergency room visit. rv rv
--- NOTE | 2018-12-07 09:27 | EKG ---
Test Date: 2018-12-05 Test Time: 19:41:47 Latin Professor: MEASUREMENT RESULTS: Intervals: Rate: 72 TX: 166 QRSD: 72 QT: 404 QTc: 442 [place]: P: 28 TX: 166 QRS: -2 T: 54 INTERPRETIVE STATEMENTS: Normal sinus rhythm Nonspecific T wave abnormality Abnormal ECG Compared to ECG 09/19/2018 19:35:53 T-wave abnormality now present Sinus tachycardia no longer present Myocardial infarct finding no longer present Electronically Signed On 12-07-18 09:22:23 CDT by Gunnar Talley
--- NOTE | 2018-12-07 10:46 | RAD REPORT ---
EXAM DESCRIPTION: CT - Abdomen Pelvis Wo Contrast - 12/05/2018 10:20 pm CLINICAL HISTORY: The patient is 53 years old and is Male; ABD PAIN TECHNIQUE: Axial computed tomography images of the abdomen and pelvis without intravenous contrast. Sagittal and coronal reformatted images were created and reviewed. This CT exam was performed usi ng one or more of the following dose reduction techniques: automated exposure control, adjustment o f the mA and/or kV according to patient size, and/or use of iterative reconstruction technique. COMPARISON: No relevant prior studies available. FINDINGS: Lung bases: Unremarkable. No mass. No consolidation. Pleural space: Bilateral pleural effusions are present. Mediastinum: A small hiatal hernia is present. ABDOMEN: Liver: The liver has a nodular contour and is mildly heterogeneous. Gallbladder and bile ducts: No calcified stones. No ductal dilation. Pancreas: Unremarkable. No ductal dilation. Spleen: The spleen is enlarged. Adrenals: Unremarkable. No mass. Kidneys and ureters: No obstructing stones. No hydronephrosis. Stomach and bowel: The stomach is decompressed. The small bowel is normal in caliber. Stool is p resent throughout the colon. Scattered colonic diverticula are noted without surrounding inflammation . There is no bowel obstruction. PELVIS: Appendix: The appendix is normal in caliber without surrounding inflammation. Bladder: Unremarkable. No stones. Reproductive: Unremarkable as visualized. ABDOMEN and PELVIS: Intraperitoneal space: A moderate amount of ascites is present throughout the abdomen and pelvis . No free air. Bones/joints: Bilateral pars defects are present at L5 with grade 1 anterolisthesis of L5 on S1. Soft tissues: A small fat and fluid containing umbilical hernia is present. Vasculature: Suggestion of several esophageal varices are noted. No abdominal aortic aneurysm. Lymph nodes: Unremarkable. No enlarged lymph nodes. IMPRESSION: 1. Cirrhosis, ascites, and splenomegaly. Findings suggest portal hypertension. 2. Colonic diverticulosis. 3. Small bilateral pleural effusions. Electronically signed by: Carmen Abbott MD 12/05/2018 10:08 PM CDT Due to temporary technical issues with the PACS/Fluency reporting system, reports are being signed by the in house radiologist as a courtesy to ensure prompt reporting. The interpreting radiologist is f ully responsible for the content of the report.
== END 2018-12-05 23:34 | disposition home or self-care (01) ==
LOC: ER 18:30
DX: R10.84 Generalized abdominal pain (principal); I10 Essential (primary) hypertension; E11.9 Type 2 diabetes mellitus without complications; F10.20 Alcohol dependence, uncomplicated
CPT/HCPCS: 74176; 87804; 93005; 99285

== ENCOUNTER 2018-12-15 06:17 | Emergency (ER) | payer MEDICAID ==
--- OUTSIDE RECORDS SUMMARY | 2018-12-15 06:19 | XMS REPORT ---
:1965 [facility] Address [address] [place] [address] Dr. Van [address] [place] [id number] Care Team Providers Name Role Phone Unavailable Unavailable Unavailable Problems This patient has no known problems. Allergies, Adverse Reactions, Alerts This patient has no known allergies or adverse reactions. Medications This patient has no known medications.
[2018-12-15] MEDS ORDERED: NA CHLORIDE 0.9% 1,000 ML ONE (06:53)
[2018-12-15] MEDS ORDERED: ONDANSETRON 4 MG/2 ML VIAL ONE ×2 (06:53→07:57)
[2018-12-15] MEDS ORDERED: PANTOPRAZOLE 40 MG INJ ONE (06:53)
[2018-12-15 07:21] LABS: Absolute Lymphocytes (CBC) 1.3 K/uL (0.7-4.9); Absolute Monocytes 0.4 K/uL (0.1-1.3); Absolute Neutrophil 3.6 K/uL (1.8-8.0); Basophils % 1.5 % (0-1.3); Eosinophils % 5.8 % (0-4.4); Hematocrit 27.8 % (39.6-49.0); Lymphocytes % 22.7 % (15.3-44.8); MPV 9.2 fL (7.6-11.3); Monocytes % 7.3 % (3.3-12.3); RBC Red Blood Cell Count 4.37 M/uL (4.33-5.43)
[2018-12-15 07:24] LABS: Protime INR 1.13
[2018-12-15 07:36] LABS: Albumin 2.6 g/dL (3.4-5.0); Bilirubin Direct 0.4 mg/dL (0-0.2); Magnesium 1.9 mg/dL (1.8-2.4); Potassium 4.3 mmol/L (3.5-5.1); Protein, Total 7.2 g/dL (6.4-8.2); Troponin (Emerg Dept Use Only) 0.06 ng/mL (0.0-0.045)
[2018-12-15] MEDS ORDERED: OCTREOTIDE ACETATE 100 MCG/ML IVP ONE (08:00)
[2018-12-15] MEDS ORDERED: OCTREOTIDE 500 MCG in NA CHLORIDE 0.9% 500 ML IV SCH (08:00)
[2018-12-15] MEDS ORDERED: PANTOPRAZOLE INJ 80 MG in NA CHLORIDE 0.9% 250 ML IV SCH (08:00)
[2018-12-15 08:21] LABS: Anisocytosis 1+; Blood Morphology Comment NOTED (NOT SEEN); Hypochromasia 2+; Platelet Estimate ADEQ; Urine White Blood Cell Casts OK
[2018-12-15] MEDS ORDERED: FUROSEMIDE 20 MG/ 2ML VIAL ONE (09:10)
[2018-12-15] MEDS ORDERED: NA CHLORIDE 0.9% 250 ML ONE (09:33)
--- NOTE | 2018-12-15 09:36 | RAD REPORT ---
EXAM DESCRIPTION: CTAbdomen Pelvis W Contrast - 12/15/2018 9:10 am CLINICAL HISTORY: Abdominal pain. hematemesis;Abd pain;Abdominal distention COMPARISON: Abdomen Pelvis Wo Contrast dated 12/05/2018 TECHNIQUE: Biphasic CT imaging of the abdomen and pelvis was performed with 100 ml non-ionic IV cont rast. All CT scans are performed using dose optimization technique as appropriate and may include automated exposure control or mA/KV adjustment according to patient size. FINDINGS: Small bilateral pleural effusions are present. Multiple esophageal varices are seen in the distal esophagus. Prominent cirrhotic liver is seen which is shrunken and nodular. No enhancing liver lesion. Mild sple nomegaly. The pancreas, adrenal glands and kidneys are within normal limits. Mild ascites is present. No free air or bowel obstruction. The appendix is normal. No evidence of si gnificant lymphadenopathy. Lumbosacral degenerative changes. IMPRESSION: Prominent liver cirrhosis with splenomegaly. Mild ascites. Esophageal varices.
--- NOTE | 2018-12-15 10:01 | RAD REPORT ---
EXAM DESCRIPTION: RAD - Chest Single View - 12/15/2018 8:44 am CLINICAL HISTORY: hematemesis;Cough Chest pain. COMPARISON: Chest Single View dated 09/19/2018; Chest Single View dated 08/09/2018; Chest Single Vie w dated 08/04/2018 FINDINGS: Portable technique limits examination quality. The lungs are grossly clear. The heart is normal in size. No displaced fractures. IMPRESSION: No acute intrathoracic process suspected.
--- NOTE | 2018-12-15 10:44 | ER ---
Nurse's Notes [facility] Name: Janusz Morris Jr Age: 53 yrs Sex: Male : 1965 Arrival Date: 12/15/2018 Time: 06:19 Bed 7 Private MD: Diagnosis: Hematemesis;Alcoholic cirrhosis of liver with ascites;Gastrointestinal hemorrhage, unspecified Presentation: 12/15 06:34 Presenting complaint: states: pt has cirrhosis of the liver has been seen here bb several times over the last few weeks and has been following up with PCP today he started coughing/vomiting up blood. Transition of care: patient was not received from another setting of care. Onset of symptoms was December 15, 2018. Risk Assessment: Do you want to hurt yourself or someone else? Patient reports no desire to harm self or others. Initial Sepsis Screen: Does the patient meet any 2 criteria? No. Patient's initial sepsis screen is negative. Does the patient have a suspected source of infection? No. Patient's initial sepsis screen is negative. Care prior to arrival: None. 06:34 Method Of Arrival: Ambulatory bb 06:34 Acuity: AJ 2 bb Historical: - Allergies: 06:36 No Known Allergies; bb - Home Meds: 06:36 furosemide 20 mg Oral tab 1 tab once daily [Active]; glipizide 10 mg Oral tab 1 tab bb once daily [Active]; lactulose 10 gram/15 mL Oral soln 60 mL 3 times per day [Active]; metformin 1,000 mg Oral tab 1 tab 2 times per day [Active]; pantoprazole 40 mg Oral TbEC 1 tab 2 times per day [Active]; propranolol 20 mg Oral tab 1 tab twice a day [Active]; spironolactone 50 mg Oral tab 1 tab once daily [Active]; - PMHx: 06:36 Alcoholism; Cirrhosis; Diabetes - NIDDM; esophageal varices; GI Bleed; Hypertension; bb - Immunization history:: Adult Immunizations up to date. - Social history:: Smoking status: unknown. - Ebola Screening: : No symptoms or risks identified at this time. Screenin:40 Abuse screen: Denies threats or abuse. Denies injuries from another. Nutritional aa1 screening: No deficits noted. Tuberculosis screening: No symptoms or risk factors identified. Fall Risk None identified. Assessment: 06:40 General: Appears in no apparent distress. uncomfortable, Behavior is calm, cooperative, aa1 appropriate for age. Pain: Complains of pain in abdomen Quality of pain is described as dull. Neuro: Level of Consciousness is awake, alert, obeys commands, Oriented to person, place, time, situation, Moves all extremities. Speech is normal. Cardiovascular: Denies chest pain, palpitations, shortness of breath, Heart tones S1 S2 present Rhythm is regular. Respiratory: Airway is patent Respiratory effort is even, unlabored, Respiratory pattern is regular, symmetrical. GI: Abdomen is round Reports upper abdominal pain, nausea, vomiting, blood in vomit. : No signs and/or symptoms were reported regarding the genitourinary system. EENT: No signs and/or symptoms were reported regarding the EENT system. Derm: Skin is intact, is healthy with good turgor, Skin is pink, warm \T\ dry. Musculoskeletal: Circulation, motion, and sensation intact. Capillary refill < 3 seconds. 07:35 Reassessment: Patient appears in no apparent distress at this time. No changes from sv previously documented assessment. Patient and/or family updated on plan of care and expected duration. Pain level reassessed. Patient is alert, oriented x 3, equal unlabored respirations, skin warm/dry/pink. 07:48 Reassessment: Patient appears in no apparent distress at this time. pt complains of sg nausea at this time, Lois HASSAN notified of pt complaint, orders received for zofran 4mg IVP. 09:55 Reassessment: Patient appears in no apparent distress at this time. No changes from sv previously documented assessment. Patient and/or family updated on plan of care and expected duration. Pain level reassessed. Respiratory: Airway is patent Respiratory effort is even, unlabored, Respiratory pattern is regular, symmetrical, Breath sounds are clear bilaterally. 09:58 Reassessment: 1st unit of PRBCs started, see blood transfusion sheet. sv 10:15 Reassessment: Patient appears in no apparent distress at this time. No changes from sv previously documented assessment. Patient and/or family updated on plan of care and expected duration. Pain level reassessed. Respiratory: Airway is patent Respiratory effort is even, unlabored, Respiratory pattern is regular, symmetrical, Breath sounds are clear bilaterally. 11:00 Reassessment: Report called to Padmini at [facility]. sv 11:34 Reassessment: Patient appears in no apparent distress at this time. No changes from sv previously documented assessment. Patient and/or family updated on plan of care and expected duration. Pain level reassessed. Patient is alert, oriented x 3, equal unlabored respirations, skin warm/dry/pink. Vital Signs: 06:36 BP 155 / 86; Pulse 67; Resp 18 S; Temp 98.6(O); Pulse Ox 100% on R/A; Weight 84.82 kg bb (R); Height 5 ft. 2 in. (157.48 cm) (R); 07:00 BP 140 / 76; Pulse 62; Resp 16; Pulse Ox 99% ; sv 08:00 BP 146 / 78; Pulse 61; Resp 17; Pulse Ox 100% ; sv 09:55 BP 146 / 78; Pulse 62 MON; Resp 16; Pulse Ox 100% on R/A; sv 10:03 BP 131 / 80; Pulse 59 MON; Resp 16; Pulse Ox 97% on R/A; sv 10:13 BP 137 / 78; Pulse 60 MON; Resp 16; Pulse Ox 98% on R/A; sv 11:26 BP 156 / 88; Pulse 61; Resp 17; Temp 98.1; Pulse Ox 99% ; sv 06:36 Body Mass Index 34.20 (84.82 kg, 157.48 cm) bb 09:55 Sinus Rhythm sv 10:03 Sinus bradycardia sv 10:13 Sinus Rhythm sv ED Course: 06:19 Patient arrived in ED. ds1 06:24 Jorge Llanos PA is PHCP. cp 06:24 Chris Delgado MD is Attending Physician. cp 06:36 Triage completed. bb 06:36 Arm band placed on Patient placed in an exam room, on a stretcher, on media monitor, bb on pulse oximetry. Family accompanied patient. 06:40 Patient has correct armband on for positive identification. Placed in gown. Bed in low aa1 position. Call light in reach. monitor technician on. Pulse ox on. NIBP on. Warm blanket given. 06:45 Inserted saline lock: 20 gauge in left antecubital area, using aseptic technique. Blood cc3 collected. 06:50 XRAY Chest (1 view) Sent. aa1 07:04 XRAY Chest (1 view) In Process Unspecified. EDMS 07:17 Nissa Cesar, JADA is Primary Nurse. sv 07:45 Jorge Lindsey MD is Attending Physician. cp 08:[address] via stretcher. sv 08:49 Bb Add On Sent. sv 09:00 Inserted saline lock: 22 gauge in right forearm, using aseptic technique. ms 09:10 CT Abd/Pelvis - W/Contrast In Process Unspecified. EDMS 09:34 Inserted saline lock: 22 gauge in right wrist, using aseptic technique. ms 09:46 Consent for blood and/or blood product transfusion explained by staff, explained by sv physician, signed by patient. 10:03 attempted transfer to [facility], pt denied due to no capacity, per Estuardo. bd 11:35 No provider procedures requiring assistance completed. Patient transferred, IV remains sv in place. intact. Administered Medications: 06:48 Drug: Zofran 4 mg Route: IVP; Site: left antecubital; aa1 07:18 Follow up: Response: No adverse reaction sv 06:48 Drug: ProTONIX 40 mg Route: IVP; Site: left antecubital; aa1 07:18 Follow up: Response: No adverse reaction sv 06:48 Drug: NS 0.9% 1000 ml Route: IV; Rate: 1 bolus; Site: left antecubital; aa1 08:49 Follow up: Response: No adverse reaction; IV Status: Completed infusion; IV Intake: sv 1000ml 07:37 Drug: Octreotide 50 mcg Route: IV; Rate: bolus; Site: right forearm; sv 07:41 Follow up: Response: No adverse reaction; IV Status: Completed infusion; IV Intake: sv 0.5ml 07:42 Drug: ProTONIX 8 mg/hr Route: IV; Rate: 25 ml/hr; Site: left antecubital; sv 11:36 Follow up: Response: No adverse reaction; IV Status: Infusion continued upon transfer sv 07:42 Drug: Octreotide Infusion (50 mcg/hr) - (Octreotide 500 mcg, NS 0.9% 500 ml) Route: IV; sv Rate: 50 ml/hr; Site: right forearm; 11:36 Follow up: Response: No adverse reaction; IV Status: Infusion continued upon transfer sv 07:50 Drug: Zofran 4 mg Route: IVP; Site: left antecubital; sg 08:30 Follow up: Response: No adverse reaction; Nausea is decreased sv 09:50 Drug: Lasix 20 mg Route: IVP; Site: right wrist; sv 10:18 Follow up: Response: No adverse reaction sv Intake: 07:41 IV: 1ml; Total: 1ml. sv 08:49 IV: 1000ml; Total: 1001ml. sv Output: 09:50 Urine: 100ml (Voided); Total: 100ml. sv 10:30 Urine: 250ml (Voided); Total: 350ml. sv 11:36 Urine: 300ml (Voided); Total: 650ml. sv Outcome: 10:43 ER care complete, transfer ordered by MD. cp 11:35 Transferred by [facility] to [facility], Transfer form completed. sv X-rays sent w/ patient. Note: Report given to EMS 11:35 Condition: stable 11:35 Instructed on the need for transfer. 11:37 Patient left the ED. sv Signatures: Dispatcher [employer] EDMS Sagrario Luna Stephanie, RN RN sv Gay, Steven RN Zulema Sosa RN RN aaCecilia Rojas dsFanta Houser RN RN bb Solis, Maria ms Jorge Llanos PA PA Anyi Solorio cc3 Corrections: (The following items were deleted from the chart) 06:39 06:36 BP 155 / 86; Pulse 67bpm; Resp 18bpm; Spontaneous; Pulse Ox 100% RA; Temp 98.6F bb Oral; bb
--- NOTE | 2018-12-15 10:44 | EDPHYS ---
Physician Documentation [facility] Name: Janusz Morris Jr Age: 53 yrs Sex: Male : 1965 Arrival Date: 12/15/2018 Time: 06:19 Bed 7 Private MD: ED Physician Jorge Lindsey HPI: 12/15 06:45 This 53 yrs old Male presents to ER via Ambulatory with complaints of Vomiting cp Blood. 06:45 The patient presents to the emergency department vomiting blood, approximately 1 cup(s) cp of full, bright red, 2 times since symptom onset. 06:45 Onset: The symptoms/episode began/occurred this morning. Abdominal pain: located in the cp left upper quadrant. Associated signs and symptoms: Pertinent negatives: chest pain, diarrhea, fever, dark and tarry stools. Severity of symptoms: in the emergency department the symptoms are unchanged despite home interventions. The patient has experienced similar episodes in the past, multiple times. Historical: - Allergies: 06:36 No Known Allergies; bb - Home Meds: 06:36 furosemide 20 mg Oral tab 1 tab once daily [Active]; glipizide 10 mg Oral tab 1 tab bb once daily [Active]; lactulose 10 gram/15 mL Oral soln 60 mL 3 times per day [Active]; metformin 1,000 mg Oral tab 1 tab 2 times per day [Active]; pantoprazole 40 mg Oral TbEC 1 tab 2 times per day [Active]; propranolol 20 mg Oral tab 1 tab twice a day [Active]; spironolactone 50 mg Oral tab 1 tab once daily [Active]; - PMHx: 06:36 Alcoholism; Cirrhosis; Diabetes - NIDDM; esophageal varices; GI Bleed; Hypertension; bb - Immunization history:: Adult Immunizations up to date. - Social history:: Smoking status: unknown. - Ebola Screening: : No symptoms or risks identified at this time. ROS: 06:48 Constitutional: Negative for body aches, chills, fever, poor PO intake. cp 06:48 Eyes: Negative for injury, pain, redness, and discharge. cp 06:48 ENT: Negative for drainage from ear(s), ear pain, sore throat, difficulty swallowing, difficulty handling secretions. 06:48 Cardiovascular: Negative for chest pain, edema, palpitations. 06:48 Respiratory: Positive for cough, Negative for shortness of breath, wheezing. 06:48 Abdomen/GI: Positive for abdominal pain, vomiting, hematemesis, Negative for diarrhea, constipation, black/tarry stool, rectal bleeding. 06:48 : Negative for urinary symptoms. 06:48 Skin: Negative for rash. 06:48 Neuro: Negative for altered mental status, headache, numbness, syncope, weakness. 06:48 All other systems are negative. Exam: 06:55 Constitutional: The patient appears in no acute distress, alert, awake, cp non-diaphoretic, non-toxic, well developed, well nourished. 06:55 Head/Face: Normocephalic, atraumatic. cp 06:55 Eyes: Periorbital structures: appear normal, Conjunctiva: normal, no exudate, no injection, Sclera: no appreciated abnormality, Lids and lashes: appear normal, bilaterally. 06:55 ENT: External ear(s): are unremarkable, Nose: is normal, Mouth: Lips: moist, Oral mucosa: pink and intact, moist, Posterior pharynx: is normal, airway is patent, no erythema, no exudate. 06:55 Chest/axilla: Inspection: normal, Palpation: is normal, no crepitus, no tenderness. 06:55 Cardiovascular: Rate: normal, Rhythm: regular, Edema: ankle edema, that is mild, JVD: is not appreciated. 06:55 Respiratory: the patient does not display signs of respiratory distress, Respirations: normal, no use of accessory muscles, no retractions, no splinting, no tachypnea, labored breathing, is not present, Breath sounds: are clear throughout, no decreased breath sounds, no stridor, no wheezing. 06:55 Abdomen/GI: Inspection: obese Bowel sounds: active, all quadrants, Palpation: soft, in all quadrants, mild abdominal tenderness, in the left upper quadrant, rebound tenderness, is not appreciated, involuntary guarding, is not appreciated. 06:55 Back: pain, is absent, ROM is normal. 06:55 Skin: Appearance: Color: normal in color, cellulitis, is not appreciated, no rash present. 06:55 Neuro: Orientation: to person, place \T\ time. Mentation: is normal, Cerebellar function: is grossly normal, Motor: moves all fours, strength is normal, Sensation: is normal. 06:57 ECG was reviewed by the Attending Physician. cp Vital Signs: 06:36 BP 155 / 86; Pulse 67; Resp 18 S; Temp 98.6(O); Pulse Ox 100% on R/A; Weight 84.82 kg bb (R); Height 5 ft. 2 in. (157.48 cm) (R); 07:00 BP 140 / 76; Pulse 62; Resp 16; Pulse Ox 99% ; sv 08:00 BP 146 / 78; Pulse 61; Resp 17; Pulse Ox 100% ; sv 09:55 BP 146 / 78; Pulse 62 MON; Resp 16; Pulse Ox 100% on R/A; sv 10:03 BP 131 / 80; Pulse 59 MON; Resp 16; Pulse Ox 97% on R/A; sv 10:13 BP 137 / 78; Pulse 60 MON; Resp 16; Pulse Ox 98% on R/A; sv 11:26 BP 156 / 88; Pulse 61; Resp 17; Temp 98.1; Pulse Ox 99% ; sv 06:36 Body Mass Index 34.20 (84.82 kg, 157.48 cm) bb 09:55 Sinus Rhythm sv 10:03 Sinus bradycardia sv 10:13 Sinus Rhythm sv MDM: 06:30 Patient medically screened. cp 07:00 Differential diagnosis: hemorrhagic shock, anemia, upper GI bleed, hepatic failure. cp 09:45 Data reviewed: vital signs, nurses notes, lab test result(s), EKG, radiologic studies, cp CT scan, plain films. 09:45 Test interpretation: by ED physician or midlevel provider: ECG, plain radiologic cp studies. Response to treatment: the patient's symptoms have markedly improved after treatment, and as a result, I will transfer patient. 12/15 06:34 Order name: Basic Metabolic Panel; Complete Time: 07:40 cp 12/15 07:40 Interpretation: Normal except: CL 108; GLUC 134; GFR 85; CA 7.9. cp 12/15 06:34 Order name: CBC with Diff; Complete Time: 08:37 cp 12/15 07:41 Interpretation: Normal except: WBC 5.7; HGB 8.6; HCT 27.8; MCV 63.6; MCH 19.6; MCHC cp 30.8; PLT 150; RDW 21.8; EOSINOPHIL % 5.8; BASO% 1.5. 12/15 06:34 Order name: LFT's; Complete Time: 07:40 cp 12/15 07:41 Interpretation: Normal except: AST 49; ALK 157; BILID 0.4; ALB 2.6; GLOB 4.6; A/G 0.6. cp 12/15 06:34 Order name: Magnesium; Complete Time: 07:40 cp 12/15 06:34 Order name: NT PRO-BNP; Complete Time: 07:40 cp 12/15 07:42 Interpretation: Abnormal: NT PRO-BNP 1777. cp 12/15 06:34 Order name: PT-INR; Complete Time: 07:35 cp 12/15 07:35 Interpretation: Abnormal: PT 13.3. cp 12/15 06:34 Order name: Troponin (emerg Dept Use Only); Complete Time: 07:40 cp 12/15 07:41 Interpretation: Abnormal: TROPED 0.06. cp 12/15 06:34 Order name: Type And Screen cp 12/15 06:34 Order name: Influenza Screen (a \T\ B); Complete Time: 07:26 cp 12/15 06:34 Order name: ETOH Level; Complete Time: 07:35 cp 12/15 06:34 Order name: Lipase; Complete Time: 07:40 cp 12/15 06:34 Order name: Ptt, Activated; Complete Time: 07:35 cp 12/15 07:26 Order name: CBC Smear Scan; Complete Time: 08:37 EDMS 12/15 07:48 Order name: Bb Add On bd 12/15 06:34 Order name: XRAY Chest (1 view); Complete Time: 10:34 cp 12/15 06:34 Order name: EKG; Complete Time: 06:35 cp 12/15 06:34 Order name: Cardiac monitoring; Complete Time: 06:49 cp 12/15 06:34 Order name: EKG - Nurse/Tech; Complete Time: 06:49 cp 12/15 06:34 Order name: IV Saline Lock; Complete Time: 06:49 cp 12/15 06:34 Order name: Labs collected and sent; Complete Time: 06:49 cp 12/15 07:40 Order name: CT Abd/Pelvis - W/Contrast; Complete Time: 09:40 cp 12/15 07:51 Order name: Packed RBC Leukored -1 EDMS 12/15 06:34 Order name: O2 Per Protocol; Complete Time: 06:49 cp 12/15 06:34 Order name: O2 Sat Monitoring; Complete Time: 06:49 cp EC:57 Rate is 62 beats/min. Rhythm is regular. SC interval is normal. QRS interval is normal. cp QT interval is normal. T waves are Inverted in lead aVL. Interpreted by me. Reviewed by me. Administered Medications: 06:48 Drug: Zofran 4 mg Route: IVP; Site: left antecubital; aa1 07:18 Follow up: Response: No adverse reaction sv 06:48 Drug: ProTONIX 40 mg Route: IVP; Site: left antecubital; aa1 07:18 Follow up: Response: No adverse reaction sv 06:48 Drug: NS 0.9% 1000 ml Route: IV; Rate: 1 bolus; Site: left antecubital; aa1 08:49 Follow up: Response: No adverse reaction; IV Status: Completed infusion; IV Intake: sv 1000ml 07:37 Drug: Octreotide 50 mcg Route: IV; Rate: bolus; Site: right forearm; sv 07:41 Follow up: Response: No adverse reaction; IV Status: Completed infusion; IV Intake: sv 0.5ml 07:42 Drug: ProTONIX 8 mg/hr Route: IV; Rate: 25 ml/hr; Site: left antecubital; sv 11:36 Follow up: Response: No adverse reaction; IV Status: Infusion continued upon transfer sv 07:42 Drug: Octreotide Infusion (50 mcg/hr) - (Octreotide 500 mcg, NS 0.9% 500 ml) Route: IV; sv Rate: 50 ml/hr; Site: right forearm; 11:36 Follow up: Response: No adverse reaction; IV Status: Infusion continued upon transfer sv 07:50 Drug: Zofran 4 mg Route: IVP; Site: left antecubital; sg 08:30 Follow up: Response: No adverse reaction; Nausea is decreased sv 09:50 Drug: Lasix 20 mg Route: IVP; Site: right wrist; sv 10:18 Follow up: Response: No adverse reaction sv Disposition: 12/16 10:17 Co-signature as Attending Physician, Jorge Lindsey MD I agree with the assessment and amanuel plan of care. Disposition: 12/15/18 10:[address] [facility]. Diagnosis are Hematemesis, Alcoholic cirrhosis of liver with ascites, Gastrointestinal hemorrhage, unspecified. - Reason for transfer: Higher level of care. - Accepting physician is DR Reyes. - Condition is Stable. - Problem is new. - Symptoms have improved. Signatures: Dispatcher [employer] Nissa Neff RN Stuart Faulkner RN RN sg Zulema Gooden RN RN aa1 Jorge Lindsey MD MD cha Ballard, Brenda, RN RN bb Jorge Llanos PA PA cp Corrections: (The following items were deleted from the chart) 12/15 07:40 07:40 Normal except: CL 108; GLUC 134; GFR 85. cp cp 11:37 10:43 12/15/2018 10:[address] [facility]. Diagnosis is sv Hematemesis; Alcoholic cirrhosis of liver with ascites; Gastrointestinal hemorrhage, unspecified. Reason for transfer: Higher level of care. Accepting physician is DR Reyes. Condition is Stable. Problem is new. Symptoms have improved. cp
--- NOTE | 2018-12-16 08:53 | EKG ---
Test Date: 2018-12-15 Test Time: 06:51:42 Retail Visual Merchandiser: SHOAIB MEASUREMENT RESULTS: Intervals: Rate: 62 SD: 172 QRSD: 74 QT: 418 QTc: 424 [place]: P: 18 SD: 172 QRS: -6 T: 81 INTERPRETIVE STATEMENTS: Normal sinus rhythm Nonspecific T wave abnormality Abnormal ECG Compared to ECG 12/05/2018 19:41:47 No significant changes Electronically Signed On 12-16-18 08:52:53 CDT by Yon Gallo
== END 2018-12-15 11:37 | disposition short-term general hospital (02) ==
LOC: ER 06:17
PROC: 30233N1 Transfusion of Nonautologous Red Blood Cells into Peripheral Vein, Percutaneous Approach (ICD-10-PCS; principal; 2018-12-15)
DX: K92.2 Gastrointestinal hemorrhage, unspecified (principal); K70.31 Alcoholic cirrhosis of liver with ascites
CPT/HCPCS: 36415; 71045; 74177; 80048; 80076; 80320; 83690; 83735; 83880; 84484; 85025; 85610; 85730; 86850; 86900; 86901; 87804; 93005; 99285; C9113; J1940; J2354; J2405; J7030; P9016; Q9967

== ENCOUNTER 2019-01-18 18:51 | Emergency (ER) | payer MEDICAID, OTHER ==
--- OUTSIDE RECORDS SUMMARY | 2019-01-18 18:55 | XMS REPORT | Clinical Summary ---
:1965 Author Organization [facility] Address [address] [place] [address] Care Team Providers Name Role Phone Unavailable Primary Care Provider Unavailable Allergies No Known Allergies Medications Medication Sig Dispensed Refills Start End Date Status Date furosemide (LASIX) Take 20 mg by 0 Active 20 MG tablet mouth daily. glipiZIDE Take 10 mg by 0 Active (GLUCOTROL) 10 MG mouth daily. tablet lactulose Take 60 mLs by 0 Active (CHRONULAC) 10 mouth 3 (three) gram/15 mL (15 mL) times daily. solution metFORMIN Take 1,000 mg by 0 Active (GLUCOPHAGE) 1000 mouth 2 (two) MG tablet times daily with breakfast and dinner. pantoprazole Take 40 mg by 0 Active (PROTONIX) 40 MG mouth 2 (two) tablet times daily. atorvastatin Take 1 tablet (40 30 tablet 1 01/02/20 Active (LIPITOR) 40 MG mg total) by mouth 9 20 tablet every evening. rifAXIMin 550 mg Take 1 tablet (550 60 tablet 1 Active Tab mg total) by mouth 9 2 (two) times daily. spironolactone Take 1 tablet (50 60 tablet 1 Active (ALDACTONE) 50 MG mg total) by mouth 9 tablet daily. propranolol Take 1 tablet (20 60 tablet 1 02/02/20 Active (INDERAL) 20 MG mg total) by mouth 9 19 tablet 2 (two) times daily for 30 days. propranolol Take 20 mg by 0 01/03/20 Discontinued (INDERAL) 20 MG mouth 2 (two) 19 tablet times daily. spironolactone Take 50 mg by 0 01/03/20 Discontinued (ALDACTONE) 50 MG mouth daily. 19 tablet acetaminophen-code TK 1 T PO Q 6 H 0 01/15/20 Discontinued ine (TYLENOL #3) PRF PAIN 9 19 300-30 mg per tablet LIDOCAINE 2 % 0 01/15/20 Discontinued solution 9 19 enoxaparin Inject 0.4 mLs (40 30 Syringe 0 12/25/19 Discontinued (LOVENOX) 40 mg total) 9 19 mg/0.4 mL Syrg subcutaneously daily. atorvastatin Take 1 tablet (40 30 tablet 1 01/03/20 Discontinued (LIPITOR) 40 MG mg total) by mouth 9 19 tablet every evening. rifAXIMin 550 mg Take 1 tablet (550 60 tablet 1 01/03/20 Discontinued Tab mg total) by mouth 9 19 2 (two) times daily. warfarin Take 1 tablet (2.5 30 tablet 0 12/26/19 Discontinued (COUMADIN) 2.5 MG mg total) by mouth 9 19 tablet daily. enoxaparin Inject 0.4 mLs (40 36 mL 0 12/26/19 Discontinued (LOVENOX) 40 mg total) 9 19 mg/0.4 mL Syrg subcutaneously daily for 90 days. enoxaparin Inject 0.4 mLs (40 36 mL 0 12/26/19 Discontinued (LOVENOX) 40 mg total) 9 19 mg/0.4 mL Syrg subcutaneously daily for 90 days. enoxaparin Inject 0.4 mLs (40 12 mL 0 01/03/20 Discontinued (LOVENOX) 40 mg total) 9 19 mg/0.4 mL Syrg subcutaneously daily for 30 days. aspirin 81 MG Take 1 tablet (81 30 tablet 1 01/03/20 Discontinued chewable tablet mg total) by mouth 9 19 daily. aspirin 81 MG Take 1 tablet (81 30 tablet 1 01/15/20 Discontinued chewable tablet mg total) by mouth 9 19 daily. Active Problems Problem Noted Date Hepatocellular carcinoma 12/17/2018 Portal vein thrombosis 12/17/2018 Other cirrhosis of liver 12/16/2018 Portal hypertension 12/16/2018 Acute blood loss anemia 12/16/2018 Acute upper GI bleed 12/16/2018 Secondary esophageal varices with bleeding 12/16/2018 Acute respiratory failure 12/16/2018 GI bleed 12/15/2018 Encounters Date Type Specialty Care Team Description Follow-Up Transplant Hepatology Julian Garner, Other cirrhosis of 9 MD liver (HCC) Lizbeth Menendez MD Telephone Transplant Hepatology Melba Han Appointment 9 E (Confrimed 01/14 appt w/pts sister.) UNOS Charge Visit Transplant Hepatology Julian Garner 9 MD Provider, [place] Registry Generic Abstract Transplant Hepatology Zonia Garcia 9 RN Abstract Transplant Hepatology Zonia Garcia 9 RN Orders Only Transplant Hepatology Zonia Garcia 9 RN Telephone Transplant Hepatology Melba Han Appointment ( Changed 9 E 01/09 hospital f/u appt which was scheduled in hepatology to 01/14 in txp clinic. Itinerary mailed. ) Telephone Transplant Hepatology Melba Han Appointment ( LVM. 9 E Calling to change hospital f/u appt sxd in hepatology on 01/09. Pt needs to be seen in txp clinic.) Anesthesia Event Juan Miguel Merino 9 MD [place] Surgery Virtual, Surgeon PROCEDURE DONE 9 OUTSIDE OR Anesthesia Event Gastroenterology Rogelio Seymour 9 MD [facility] Surgery Gastroenterology Lizbeth Menendez UPPER ENDOSCOPY 9 MD Federico Abstract Transplant Hepatology Tasha Ingram Anesthesia Event Sumanth Luther MD Surgery Virtual, Surgeon PROCEDURE DONE 9 OUTSIDE OR Orders Only Radiology Swapna Marquez E Secondary esophageal varices with bleeding (HCC); 9 Portal hypertension (HCC) Anesthesia Event Alisa Frias 9 MD [place] Surgery Virtual, Surgeon PROCEDURE DONE 9 OUTSIDE OR Orders Only Hepatology Gail Moreno Secondary esophageal varices with bleeding (HCC) (Primary Dx); 9 SHAKIR Ortiz Portal hypertension (HCC) Documentation Transplant Hepatology Tasha Ingram Surgery Diana Kennedy R CATH 9 MD Documentation Transplant Hepatology Tasha Ingram Abstract Transplant Hepatology Julian Garner 9 MD Anesthesia Event Gastroenterology Cecelia Capone 9 Wong, VIDEO GAME SCRIPT WRITER Surgery Gastroenterology [place], [place], UPPER 9 ENDOSCOPY,BANDING Hospital Encounter General Internal Eric, Acute hepatic encephalopathy; 9 - Medicine Christopher Anemia associated with acute blood loss; MD Wilver Hematemesis with nausea; Lc Karimi Alcoholic cirrhosis of liver with ascites (HCC); MD Sagrario Gastrointestinal hemorrhage with hematemesis; Bennett Freire, Acute upper GI bleed; Acute respiratory failure, unspecified whether with hypoxia or hypercapnia ( HCC); Kirti Valdes MD Acute blood loss anemia; Secondary esophageal varices with bleeding (HCC); Decompensated hepatic cirrhosis (HCC); Screening for malignant neoplasm; Portal hypertension (HCC); Esophageal varices without bleeding, unspecified esophageal varices type (HCC); Immunity status testing; Other ascites; Alcohol use; Hepatocellular carcinoma (HCC); Portal vein thrombosis; History of GI bleed Travel 9 after 01/17/2018 Family History Medical History Relation Name Comments Diabetes Father Diabetes Mother Relation Name Status Comments Father Mother Social History Tobacco Use Types Packs/Day Years Used Date Never Smoker Smokeless Tobacco: Never Used Tobacco Cessation: Counseling Given: No Alcohol Use Drinks/Week oz/Week Comments No stopped in 2013 Alcohol Habits Answer Date Recorded How often do you have a drink containing alcohol? Never 12/15/2018 How many drinks containing alcohol do you have on a typical Not asked day when you are drinking? How often do you have six or more drinks on one occasion? Not asked Sex Assigned at Date Recorded Not on file Job Start Date Occupation Industry Not on file Not on file Not on file Travel History Travel Start Travel End No recent travel history available. Last Filed Vital Signs Vital Sign Reading Time Taken Blood Pressure 141/72 01/14/2019 9:19 AM CDT Pulse 63 01/14/2019 9:19 AM CDT Temperature 36.3 C (97.4 F) 01/14/2019 9:19 AM CDT Respiratory Rate 18 01/14/2019 9:19 AM CDT Oxygen Saturation 98% 01/14/2019 9:19 AM CDT Inhaled Oxygen Concentration 21% 01/01/2019 9:43 PM CDT Weight 82.9 kg (182 lb 11.2 oz) 01/14/2019 9:19 AM CDT Height 157.5 cm (5' 2") 01/14/2019 9:19 AM CDT Body Mass Index 33.42 01/14/2019 9:19 AM CDT Plan of Treatment Not on file Procedures Procedure Name Priority Date/Time Associated Diagnosis Comments CARDIAC CATH REPORT - 01/03/2019 11:04 SCAN AM CDT VASCULAR DIAGRAM 01/03/2019 11:04 -SCAN AM CDT RHYTHM STRIP - SCAN 01/03/2019 11:04 AM CDT TRANSFUSION SERVICE 01/02/2019 5:52 REPORT - SCAN PM CDT POCT-GLUCOSE METER Routine 01/02/2019 7:31 Results for this AM CDT procedure are in the results section. CBC W/PLT COUNT & Routine 01/02/2019 3:10 Results for this AUTO DIFFERENTIAL AM CDT procedure are in the results section. CBC W/PLT COUNT & Routine 01/02/2019 3:10 Results for this AUTO DIFFERENTIAL AM CDT procedure are in the results section. PHOSPHORUS Routine 01/02/2019 3:10 Results for this AM CDT procedure are in the results section. MAGNESIUM Routine 01/02/2019 3:10 Results for this AM CDT procedure are in the results section. COMPREHENSIVE Routine 01/02/2019 3:10 Results for this METABOLIC PANEL AM CDT procedure are in the results section. POCT-GLUCOSE METER Routine 01/01/2019 11:32 Results for this PM CDT procedure are in the results section. POCT-GLUCOSE METER Routine 01/01/2019 4:23 Results for this PM CDT procedure are in the results section. POCT-GLUCOSE METER Routine 01/01/2019 1:46 Results for this PM CDT procedure are in the results section. IR TIPSS PROCEDURE Routine 01/01/2019 1:30 Results for this PM CDT procedure are in the results section. PROCEDURE DONE 01/01/2019 8:30 Acute gastrointestinal OUTSIDE OR AM CDT hemorrhage POCT-GLUCOSE METER Routine 01/01/2019 7:08 Results for this AM CDT procedure are in the results section. CBC W/PLT COUNT & Routine 01/01/2019 5:12 Results for this AUTO DIFFERENTIAL AM CDT procedure are in the results section. TYPE AND SCREEN, Routine 01/01/2019 5:12 Results for this AUTOMATED AM CDT procedure are in the results section. CBC W/PLT COUNT & Routine 01/01/2019 5:12 Results for this AUTO DIFFERENTIAL AM CDT procedure are in the results section. PHOSPHORUS Routine 01/01/2019 5:12 Results for this AM CDT procedure are in the results section. MAGNESIUM Routine 01/01/2019 5:12 Results for this AM CDT procedure are in the results section. COMPREHENSIVE Routine 01/01/2019 5:12 Results for this METABOLIC PANEL AM CDT procedure are in the results section. CALCIUM, IONIZED Routine 01/01/2019 5:12 Results for this AM CDT procedure are in the results section. POCT-GLUCOSE METER Routine 12/31/2018 10:59 Results for this PM CDT procedure are in the results section. ECHOCARDIOGRAM REPORT 12/31/2018 9:11 - SCAN PM CDT POCT-GLUCOSE METER Routine 12/31/2018 3:28 Results for this PM CDT procedure are in the results section. CBC W/PLT COUNT & Routine 12/31/2018 5:12 Results for this AUTO DIFFERENTIAL AM CDT procedure are in the results section. B-TYPE NATRIURETIC Routine 12/31/2018 5:12 Results for this FACTOR (BNP) AM CDT procedure are in the results section. PHOSPHORUS Routine 12/31/2018 5:12 Results for this AM CDT procedure are in the results section. MAGNESIUM Routine 12/31/2018 5:12 Results for this AM CDT procedure are in the results section. CBC W/PLT COUNT & Routine 12/31/2018 5:12 Results for this AUTO DIFFERENTIAL AM CDT procedure are in the results section. CALCIUM, IONIZED Routine 12/31/2018 5:12 Results for this AM CDT procedure are in the results section. BASIC METABOLIC PANEL Routine 12/31/2018 5:12 Results for this (7) AM CDT procedure are in the results section. POCT-GLUCOSE METER Routine 12/30/2018 9:47 Results for this PM CDT procedure are in the results section. 2D ECHO W/ DOPPLER STAT 12/30/2018 6:15 Results for this (CW/PW/COLOR) PM CDT procedure are in the results section. POCT-GLUCOSE METER Routine 12/30/2018 5:29 Results for this PM CDT procedure are in the results section. NM BONE SCAN WHOLE Routine 12/30/2018 4:34 Results for this BODY PM CDT procedure are in the results section. POCT-GLUCOSE METER Routine 12/30/2018 11:37 Results for this AM CDT procedure are in the results section. CT CHEST WITHOUT IV Routine 12/30/2018 11:03 Results for this CONTRAST AM CDT procedure are in the results section. POCT-GLUCOSE METER Routine 12/30/2018 7:41 Results for this AM CDT procedure are in the results section. CBC W/PLT COUNT & Routine 12/30/2018 5:31 Results for this AUTO DIFFERENTIAL AM CDT procedure are in the results section. MAGNESIUM Routine 12/30/2018 5:31 Results for this AM CDT procedure are in the results section. CBC W/PLT COUNT & Routine 12/30/2018 5:31 Results for this AUTO DIFFERENTIAL AM CDT procedure are in the results section. PHOSPHORUS Routine 12/30/2018 5:31 Results for this AM CDT procedure are in the results section. COMPREHENSIVE Routine 12/30/2018 5:31 Results for this METABOLIC PANEL AM CDT procedure are in the results section. CALCIUM, IONIZED Routine 12/30/2018 5:31 Results for this AM CDT procedure are in the results section. POCT-GLUCOSE METER Routine 12/29/2018 9:48 Results for this PM CDT procedure are in the results section. POCT-GLUCOSE METER Routine 12/29/2018 5:35 Results for this PM CDT procedure are in the results section. BASIC METABOLIC PANEL MERARI 12/29/2018 3:46 Results for this (7) PM CDT procedure are in the results section. POCT-GLUCOSE METER Routine 12/29/2018 12:23 Results for this PM CDT procedure are in the results section. POCT-GLUCOSE METER Routine 12/29/2018 7:51 Results for this AM CDT procedure are in the results section. POCT-GLUCOSE METER Routine 12/28/2018 10:20 Results for this PM CDT procedure are in the results section. POCT-GLUCOSE METER Routine 12/28/2018 8:23 Results for this AM CDT procedure are in the results section. CBC W/PLT COUNT & Routine 12/28/2018 5:16 Results for this AUTO DIFFERENTIAL AM CDT procedure are in the results section. COMPREHENSIVE Routine 12/28/2018 5:16 Results for this METABOLIC PANEL AM CDT procedure are in the results section. PHOSPHORUS Routine 12/28/2018 5:16 Results for this AM CDT procedure are in the results section. MAGNESIUM Routine 12/28/2018 5:16 Results for this AM CDT procedure are in the results section. CBC W/PLT COUNT & Routine 12/28/2018 5:16 Results for this AUTO DIFFERENTIAL AM CDT procedure are in the results section. CALCIUM, IONIZED Routine 12/28/2018 5:16 Results for this AM CDT procedure are in the results section. POCT-GLUCOSE METER Routine 12/27/2018 10:24 Results for this PM CDT procedure are in the results section. POCT-GLUCOSE METER Routine 12/27/2018 6:37 Results for this PM CDT procedure are in the results section. POCT-GLUCOSE METER Routine 12/27/2018 11:47 Results for this AM CDT procedure are in the results section. POCT-GLUCOSE METER Routine 12/27/2018 10:34 Results for this AM CDT procedure are in the results section. REPORT OF PROCEDURE - 12/27/2018 10:16 ENDOSCOPY URL AM CDT UPPER ENDOSCOPY 12/27/2018 9:00 Anemia, unspecified AM CDT type POCT-GLUCOSE METER Routine 12/27/2018 7:37 Results for this AM CDT procedure are in the results section. CBC W/PLT COUNT & Routine 12/27/2018 5:35 Results for this AUTO DIFFERENTIAL AM CDT procedure are in the results section. PROTHROMBIN TIME/INR Routine 12/27/2018 5:35 Results for this AM CDT procedure are in the results section. B-TYPE NATRIURETIC Routine 12/27/2018 5:35 Results for this FACTOR (BNP) AM CDT procedure are in the results section. PHOSPHORUS Routine 12/27/2018 5:35 Results for this AM CDT procedure are in the results section. MAGNESIUM Routine 12/27/2018 5:35 Results for this AM CDT procedure are in the results section. CBC W/PLT COUNT & Routine 12/27/2018 5:35 Results for this AUTO DIFFERENTIAL AM CDT procedure are in the results section. CALCIUM, IONIZED Routine 12/27/2018 5:35 Results for this AM CDT procedure are in the results section. BASIC METABOLIC PANEL Routine 12/27/2018 5:35 Results for this (7) AM CDT procedure are in the results section. POCT-GLUCOSE METER Routine 12/26/2018 10:16 Results for this PM CDT procedure are in the results section. POCT-GLUCOSE METER Routine 12/26/2018 9:05 Results for this PM CDT procedure are in the results section. POCT-GLUCOSE METER Routine 12/26/2018 4:46 Results for this PM CDT procedure are in the results section. POCT-GLUCOSE METER Routine 12/26/2018 12:40 Results for this PM CDT procedure are in the results section. POCT-GLUCOSE METER Routine 12/26/2018 10:38 Results for this AM CDT procedure are in the results section. IR TIPSS PROCEDURE Routine 12/26/2018 10:21 Secondary esophageal Results for this AM CDT varices with bleeding procedure are in (HCC) the results Portal hypertension section. (HCC) PROCEDURE DONE 12/26/2018 7:30 Gastrointestinal OUTSIDE OR AM CDT hemorrhage, unspecified gastrointestinal hemorrhage type Special Needs 0730 PER ANESTHESIA CBC W/PLT COUNT & AUTO STAT 12/26/2018 7:20 AM Results for this DIFFERENTIAL CDT procedure are in the results section. CBC W/PLT COUNT & AUTO STAT 12/26/2018 7:20 AM Results for this DIFFERENTIAL CDT procedure are in the results section. COMPREHENSIVE STAT 12/26/2018 7:20 AM Results for this METABOLIC PANEL CDT procedure are in the results section. PT/APTT STAT 12/26/2018 7:20 AM Results for this CDT procedure are in the results section. POCT-GLUCOSE METER Routine 12/25/2018 11:45 PM Results for this CDT procedure are in the results section. VASCULAR DIAGRAM -SCAN 12/25/2018 5:51 PM CDT URINALYSIS W/ Routine 12/25/2018 4:37 PM Results for this MICROSCOPIC CDT procedure are in the results section. POCT-GLUCOSE METER Routine 12/25/2018 4:32 PM Results for this CDT procedure are in the results section. ECG 12-LEAD Routine 12/25/2018 4:12 PM Results for this CDT procedure are in the results section. POCT-GLUCOSE METER Routine 12/25/2018 12:04 PM Results for this CDT procedure are in the results section. POCT-GLUCOSE METER Routine 12/25/2018 7:56 AM Results for this CDT procedure are in the results section. POCT-GLUCOSE METER Routine 12/24/2018 10:46 PM Results for this CDT procedure are in the results section. TRANSFUSION SERVICE 12/24/2018 6:03 PM REPORT - SCAN CDT POCT-GLUCOSE METER Routine 12/24/2018 2:43 PM Results for this CDT procedure are in the results section. POCT-GLUCOSE METER Routine 12/24/2018 11:55 AM Results for this CDT procedure are in the results section. POCT-GLUCOSE METER Routine 12/24/2018 7:50 AM Results for this CDT procedure are in the results section. CBC W/PLT COUNT & AUTO Routine 12/24/2018 7:15 AM Results for this DIFFERENTIAL CDT procedure are in the results section. COMPREHENSIVE Routine 12/24/2018 7:15 AM Results for this METABOLIC PANEL CDT procedure are in the results section. CBC W/PLT COUNT & AUTO Routine 12/24/2018 7:15 AM Results for this DIFFERENTIAL CDT procedure are in the results section. MAGNESIUM Routine 12/23/2018 10:38 PM Results for this CDT procedure are in the results section. POCT-GLUCOSE METER Routine 12/23/2018 10:01 PM Results for this CDT procedure are in the results section. POCT-GLUCOSE METER Routine 12/23/2018 5:04 PM Results for this CDT procedure are in the results section. TYPE AND SCREEN, Routine 12/23/2018 5:01 PM Results for this AUTOMATED CDT procedure are in the results section. POCT-GLUCOSE METER Routine 12/23/2018 1:46 PM Results for this CDT procedure are in the results section. POCT-GLUCOSE METER Routine 12/23/2018 11:40 AM Results for this CDT procedure are in the results section. POCT-GLUCOSE METER Routine 12/23/2018 7:40 AM Results for this CDT procedure are in the results section. PROTHROMBIN TIME/INR Routine 12/23/2018 4:31 AM Results for this CDT procedure are in the results section. HEPATIC FUNCTION PANEL Routine 12/23/2018 4:31 AM Results for this CDT procedure are in the results section. BASIC METABOLIC PANEL Routine 12/23/2018 4:31 AM Results for this (7) CDT procedure are in the results section. CBC (HEMOGRAM ONLY) Routine 12/23/2018 4:31 AM Results for this CDT procedure are in the results section. POCT-GLUCOSE METER Routine 12/22/2018 11:06 PM Results for this CDT procedure are in the results section. POCT-GLUCOSE METER Routine 12/22/2018 4:46 PM Results for this CDT procedure are in the results section. POCT-GLUCOSE METER Routine 12/22/2018 11:54 AM Results for this CDT procedure are in the results section. POCT-GLUCOSE METER Routine 12/22/2018 7:41 AM Results for this CDT procedure are in the results section. COMPREHENSIVE Routine 12/22/2018 3:56 AM Results for this METABOLIC PANEL CDT procedure are in the results section. POCT-GLUCOSE METER Routine 12/21/2018 10:13 PM Results for this CDT procedure are in the results section. TRANSFUSION SERVICE 12/21/2018 6:02 PM REPORT - SCAN CDT POCT-GLUCOSE METER Routine 12/21/2018 6:01 PM Results for this CDT procedure are in the results section. XR MANDIBLE MIN 4 Routine 12/21/2018 4:35 PM Results for this VIEWS CDT procedure are in the results section. POCT-GLUCOSE METER Routine 12/21/2018 11:39 AM Results for this CDT procedure are in the results section. POCT-GLUCOSE METER Routine 12/21/2018 8:09 AM Results for this CDT procedure are in the results section. ZINC Routine 12/21/2018 4:34 AM Results for this CDT procedure are in the results section. POCT-GLUCOSE METER Routine 12/20/2018 11:27 PM Results for this CDT procedure are in the results section. PERIPHERAL VASCULAR 12/20/2018 9:21 PM REPORT - SCAN CDT POCT-GLUCOSE METER Routine 12/20/2018 6:39 PM Results for this CDT procedure are in the results section. 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 T SPOT TB Routine 12/20/2018 5:23 Results for AM CDT this procedure are in the results section. TYPE AND SCREEN, Routine 12/20/2018 5:16 Results for AUTOMATED AM CDT this procedure are in the results section. CBC (HEMOGRAM ONLY) Routine 12/20/2018 5:16 Results for AM CDT this procedure are in the results section. HEPATIC FUNCTION PANEL Routine 12/20/2018 5:16 Results for AM CDT this procedure are in the results section. BASIC METABOLIC PANEL Routine 12/20/2018 5:16 Results for (7) AM CDT this procedure are in the results section. CALCIUM, IONIZED Routine 12/20/2018 5:15 Results for AM CDT this procedure are in the results section. POCT-GLUCOSE METER Routine 12/19/2018 11:05 Results for PM CDT this procedure are in the results section. ECHOCARDIOGRAM REPORT 12/19/2018 9:12 - SCAN PM CDT POCT-GLUCOSE METER Routine 12/19/2018 8:16 Results for PM CDT this procedure are in the results section. BLOOD GAS, ARTERIAL Routine 12/19/2018 7:57 Results for PM CDT this procedure are in the results section. DRUG SCREEN, URINE, Routine 12/19/2018 5:34 TRANSPLANT PM CDT HIV-1 ANTIGEN WITH STAT 12/19/2018 5:19 Results for HIV-1/2 ANTIBODY PM CDT this procedure are in the results section. CRYPTOCOCCAL ANTIGEN Routine 12/19/2018 5:19 Results for PM CDT this procedure are in the results section. TESTOSTERONE, FREE + Routine 12/19/2018 5:19 Results for TOTAL PM CDT this procedure are in the results section. PSA Routine 12/19/2018 5:19 Results for PM CDT this procedure are in the results section. EBV ANTIBODY, IGM Routine 12/19/2018 5:19 Results for PM CDT this procedure are in the results section. EBV ANTIBODY, IGG Routine 12/19/2018 5:19 Results for PM CDT this procedure are in the results section. CYTOMEGALOVIRUS Routine 12/19/2018 5:19 Results for ANTIBODY, IGM PM CDT this procedure are in the results section. CYTOMEGALOVIRUS Routine 12/19/2018 5:19 Results for ANTIBODY, IGG PM CDT this procedure are in the results section. RPR Routine 12/19/2018 5:19 Results for PM CDT this procedure are in the results section. HEPATITIS B CORE Routine 12/19/2018 5:19 Results for ANTIBODY, IGM PM CDT this procedure are in the results section. HEPATITIS B SURFACE Routine 12/19/2018 5:19 Results for ANTIBODY PM CDT this procedure are in the results section. HEPATITIS B SURFACE Routine 12/19/2018 5:19 Results for ANTIGEN PM CDT this procedure are in the results section. HEPATITIS A ANTIBODY, Routine 12/19/2018 5:19 Results for IGM PM CDT this procedure are in the results section. ETHANOL Routine 12/19/2018 5:19 Results for PM CDT this procedure are in the results section. T4 Routine 12/19/2018 5:19 Results for PM CDT this procedure are in the results section. T3 Routine 12/19/2018 5:19 Results for PM CDT this procedure are in the results section. TSH Routine 12/19/2018 5:19 Results for PM CDT this procedure are in the results section. HEMOGLOBIN A1C AP Routine 12/19/2018 5:19 Results for PM CDT this procedure are in the results section. LIPID PANEL Routine 12/19/2018 5:19 Results for PM CDT this procedure are in the results section. CARBOHYDRATE ANTIGEN Routine 12/19/2018 5:19 Results for 19-9 (CA 19-9) PM CDT this procedure are in the results section. CARCINOEMBRYONIC Routine 12/19/2018 5:19 Results for ANTIGEN (CEA) PM CDT this procedure are in the results section. CERULOPLASMIN Routine 12/19/2018 5:19 Results for PM CDT this procedure are in the results section. TRANSFERRIN Routine 12/19/2018 5:19 Results for PM CDT this procedure are in the results section. PHOSPHORUS Routine 12/19/2018 5:19 Results for PM CDT this procedure are in the results section. MAGNESIUM Routine 12/19/2018 5:19 Results for PM CDT this procedure are in the results section. GAMMA GLUTAMYL Routine 12/19/2018 5:19 Results for TRANSFERASE (GGT) PM CDT this procedure are in the results section. VITAMIN D, 25-HYDROXY Routine 12/19/2018 5:19 Results for PM CDT this procedure are in the results section. URIC ACID Routine 12/19/2018 5:19 Results for PM CDT this procedure are in the results section. KTLOG-7-[id number] AP Routine 12/19/2018 5:18 PHENOTYP PM CDT CAROTID DOPPLER Routine 12/19/2018 4:01 Results for BILATERAL PM CDT this procedure are in the results section. D-DIMER Routine 12/19/2018 12:21 Results for PM CDT this procedure are in the results section. APTT Routine 12/19/2018 12:21 Results for PM CDT this procedure are in the results section. PROTHROMBIN TIME/INR Routine 12/19/2018 12:21 Results for PM CDT this procedure are in the results section. POCT-GLUCOSE METER Routine 12/19/2018 11:29 Results for AM CDT this procedure are in the results section. POCT-GLUCOSE METER Routine 12/19/2018 10:00 Results for AM CDT this procedure are in the results section. ECHO W CONTRAST & MERARI 12/19/2018 8:44 Results for DOPPLER AM CDT this procedure are in the results section. POCT-GLUCOSE METER Routine 12/19/2018 7:48 Results for AM CDT this procedure are in the results section. CBC (HEMOGRAM ONLY) Routine 12/19/2018 4:20 Results for AM CDT this procedure are in the results section. HEPATIC FUNCTION PANEL Routine 12/19/2018 4:20 Results for AM CDT this procedure are in the results section. BASIC METABOLIC PANEL Routine 12/19/2018 4:20 Results for (7) AM CDT this procedure are in the results section. POCT-GLUCOSE METER Routine 12/18/2018 9:09 Results for PM CDT this procedure are in the results section. POCT-GLUCOSE METER Routine 12/18/2018 5:21 Results for PM CDT this procedure are in the results section. POCT-GLUCOSE METER Routine 12/18/2018 12:00 Results for PM CDT this procedure are in the results section. POCT-GLUCOSE METER Routine 12/18/2018 9:09 Results for AM CDT this procedure are in the results section. HEPATIC FUNCTION PANEL Routine 12/18/2018 6:21 Results for AM CDT this procedure are in the results section. CBC (HEMOGRAM ONLY) Routine 12/18/2018 6:21 Results for AM CDT this procedure are in the results section. BASIC METABOLIC PANEL Routine 12/18/2018 6:21 Results for (7) AM CDT this procedure are in the results section. POCT-GLUCOSE METER Routine 12/17/2018 10:29 Results for PM CDT this procedure are in the results section. DRUG SCREEN, URINE, Routine 12/17/2018 10:47 COMPREHENSIVE AM CDT MISCELLANEOUS LAB Routine 12/17/2018 10:47 ORDER AM CDT MR ABDOMEN MERARI 12/17/2018 9:40 Results for WITH/WITHOUT IV AM CDT this procedure CONTRAST are in the results section. HEPATIC FUNCTION PANEL Routine 12/17/2018 5:12 Results for AM CDT this procedure are in the results section. PHOSPHORUS Routine 12/17/2018 5:12 Results for AM CDT this procedure are in the results section. MAGNESIUM Routine 12/17/2018 5:12 Results for AM CDT this procedure are in the results section. BASIC METABOLIC PANEL Routine 12/17/2018 5:12 Results for (7) AM CDT this procedure are in the results section. CBC W/PLT COUNT & AUTO Routine 12/17/2018 4:05 Results for DIFFERENTIAL AM CDT this procedure are in the results section. CBC W/PLT COUNT & AUTO Routine 12/17/2018 4:05 Results for DIFFERENTIAL AM CDT this procedure are in the results section. WILLOW TITER AND PATTERN Routine 12/16/2018 8:18 Results for PM CDT this procedure are in the results section. ETHANOL Routine 12/16/2018 8:18 Results for PM CDT this procedure are in the results section. ALPHA FETOPROTEIN Routine 12/16/2018 8:18 Results for (AFP), TUMOR MARKER PM CDT this procedure are in the results section. ETCDF-3-[id number]\\, Routine 12/16/2018 8:18 Results for SERUM PM CDT this procedure are in the results section. CERULOPLASMIN Routine 12/16/2018 8:18 Results for PM CDT this procedure are in the results section. HEPATITIS C PCR, Routine 12/16/2018 8:18 Results for QUANTITATIVE PM CDT this procedure are in the results section. HEPATITIS C GENOTYPE Routine 12/16/2018 8:18 Results for PM CDT this procedure are in the results section. HEPATITIS C ANTIBODY Routine 12/16/2018 8:18 Results for PM CDT this procedure are in the results section. HEPATITIS B CORE Routine 12/16/2018 8:18 Results for ANTIBODY, TOTAL PM CDT this procedure are in the results section. HEPATITIS A ANTIBODY, Routine 12/16/2018 8:18 Results for IGG PM CDT this procedure are in the results section. IRON, TIBC, % SAT. Routine 12/16/2018 8:18 Results for (WITHOUT FERRITIN) PM CDT this procedure are in the results section. FERRITIN Routine 12/16/2018 8:18 Results for PM CDT this procedure are in the results section. ANTI-MITOCHONDRIAL AB, Routine 12/16/2018 8:18 REFLEX TO TITER PM CDT ACTIN (SMOOTH MUSCLE) Routine 12/16/2018 8:18 Results for ANTIBODY, IGG PM CDT this procedure are in the results section. ANTI-NUCLEAR ANTIBODY Routine 12/16/2018 8:18 Results for (WILLOW) PM CDT this procedure are in the results section. HEMOGLOBIN AND Routine 12/16/2018 8:18 Results for HEMATOCRIT PM CDT this procedure are in the results section. TRANSFUSION SERVICE 12/16/2018 5:51 REPORT - SCAN PM CDT US ABDOMINAL WITH Routine 12/16/2018 3:45 Results for DOPPLER PM CDT this procedure are in the results section. HEMOGLOBIN AND Routine 12/16/2018 11:57 Results for HEMATOCRIT AM CDT this procedure are in the results section. BASIC METABOLIC PANEL MERARI 12/16/2018 11:57 Results for (7) AM CDT this procedure are in the results section. HEMOGLOBIN AND Routine 12/16/2018 8:43 Results for HEMATOCRIT AM CDT this procedure are in the results section. CBC W/PLT COUNT & AUTO Routine 12/16/2018 4:57 Results for DIFFERENTIAL AM CDT this procedure are in the results section. CBC W/PLT COUNT & AUTO Routine 12/16/2018 4:57 Results for DIFFERENTIAL AM CDT this procedure are in the results section. CALCIUM, IONIZED Routine 12/16/2018 4:57 Results for AM CDT this procedure are in the results section. PHOSPHORUS Routine 12/16/2018 4:57 Results for AM CDT this procedure are in the results section. MAGNESIUM Routine 12/16/2018 4:57 Results for AM CDT this procedure are in the results section. BASIC METABOLIC PANEL Routine 12/16/2018 4:57 Results for (7) AM CDT this procedure are in the results section. HEMOGLOBIN AND Routine 12/15/2018 11:53 Results for HEMATOCRIT PM CDT this procedure are in the results section. POCT-GLUCOSE METER Routine 12/15/2018 11:18 Results for PM CDT this procedure are in the results section. XR CHEST 1 VIEW STAT 12/15/2018 10:48 Results for PORTABLE/BEDSIDE PM CDT this procedure are in the results section. HEMOGLOBIN AND Routine 12/15/2018 8:00 Results for HEMATOCRIT PM CDT this procedure are in the results section. XR CHEST 1 VIEW STAT 12/15/2018 6:12 Results for PORTABLE/BEDSIDE PM CDT this procedure are in the results section. REPORT OF PROCEDURE - 12/15/2018 4:53 ENDOSCOPY URL PM CDT ABORH, MANUAL STAT 12/15/2018 2:37 Results for PM CDT this procedure are in the results section. UPPER 12/15/2018 2:25 Gastrointestinal ENDOSCOPY,BANDING PM CDT hemorrhage associated with gastritis, unspecified gastritis type TYPE AND SCREEN, Routine 12/15/2018 2:10 Results for AUTOMATED PM CDT this procedure are in the results section. LACTIC ACID, VENOUS Routine 12/15/2018 2:09 Results for PM CDT this procedure are in the results section. CBC (HEMOGRAM ONLY) Routine 12/15/2018 2:08 Results for PM CDT this procedure are in the results section. FIBRINOGEN Routine 12/15/2018 2:08 Results for PM CDT this procedure are in the results section. APTT Routine 12/15/2018 2:08 Results for PM CDT this procedure are in the results section. PROTHROMBIN TIME/INR Routine 12/15/2018 2:08 Results for PM CDT this procedure are in the results section. COMPREHENSIVE Routine 12/15/2018 2:08 Results for METABOLIC PANEL PM CDT this procedure are in the results section. BASIC METABOLIC PANEL Routine 12/15/2018 2:08 Results for (7) PM CDT this procedure are in the results section. HEMOGLOBIN AND Routine 12/15/2018 2:08 Results for HEMATOCRIT PM CDT this procedure are in the results section. APTT Routine 12/15/2018 2:08 Results for PM CDT this procedure are in the results section. PROTHROMBIN TIME/INR Routine 12/15/2018 2:08 Results for PM CDT this procedure are in the results section. after 01/17/2018 Results CARDIAC CATH REPORT - SCAN (01/03/2019 11:04 AM CDT) Narrative Performed At VASCULAR DIAGRAM -SCAN (01/03/2019 11:04 AM CDT)Only the most recent of2 resultswithin the time period is included. Narrative Performed At RHYTHM STRIP - SCAN (01/03/2019 11:04 AM CDT) Narrative Performed At TRANSFUSION SERVICE REPORT - SCAN (01/02/2019 5:52 PM CDT)Only the most recent of4 resultswithin the time period is included. Narrative Performed At POC-Glucose meter (01/02/2019 7:31 AM CDT)Only the most recent of62 resultswithin the time period is included. POC-Glucose Meter 187 (H)Comment: TESTED AT 70 - 110 mg/dL [facility] [address] [facility] [id number] Specimen Blood Performing Organization Address City/State/Zipcode Phone Number [address] [address] [phone] CENTER CBC with platelet count + automated diff (01/02/2019 3:10 AM CDT)Only the most recent of10 resultswithin the time period is included. WBC 9.1 3.5 - 10.5 K/L [facility] RBC 4.66 4.63 - 6.08 M/L [facility] Hemoglobin 9.1 (L) 13.7 - 17.5 GM/DL [facility] Hematocrit 31.7 (L) 40.1 - 51.0 % [facility] MCV 68.0 (L) 79.0 - 92.2 fL [facility] MCH 19.5 (L) 25.7 - 32.2 pg [facility] MCHC 28.7 (L) 32.3 - 36.5 GM/DL [facility] RDW 20.4 (H) 11.6 - 14.4 % [facility] Platelets 174 150 - 450 K/CU MM [facility] MPV 10.6 9.4 - 12.4 fL [facility] nRBC 0 0 - 0 /100 WBC [facility] % Neutros 74 % [facility] % Lymphs 16 % [facility] % Monos 7 % [facility] % Eos 2 % [facility] % Baso 1 % [facility] # Neutros 6.70 (H) 1.78 - 5.38 K/L [facility] # Lymphs 1.42 1.32 - 3.57 K/L [facility] # Monos 0.61 0.30 - 0.82 K/L [facility] # Eos 0.20 0.04 - 0.54 K/L [facility] # Baso 0.10 (H) 0.01 - 0.08 K/L [facility] Immature Granulocytes-Relative 0 0 - 1 % [facility] Specimen Blood Performing Organization Address City/[facility] Phone Number [address] [address] [phone] CENTER Phosphorus (01/02/2019 3:10 AM CDT)Only the most recent of9 resultswithin the time period is included. Phosphorus 2.9 2.3 - 4.7 mg/dL [facility] Specimen Blood Performing Organization Address City/[facility] Phone Number [address] [address] [phone] CENTER Magnesium (01/02/2019 3:10 AM CDT)Only the most recent of10 resultswithin the time period is included. Magnesium 1.9 1.6 - 2.6 mg/dL [facility] Specimen Blood Performing Organization Address City/[facility]/Zipcode Phone Number [address] [address] CENTER Comprehensive metabolic panel (01/02/2019 3:10 AM CDT)Only the most recent of8 resultswithin the time period is included. Protein, Total 7.6 6.0 - 8.3 gm/dL [facility] Albumin 3.3 (L) 3.5 - 5.0 g/dL [facility] Alkaline Phosphatase 138 40 - 150 U/L [facility] Total Bilirubin 1.0 0.2 - 1.2 mg/dL [facility] Sodium 136 136 - 145 meq/L [facility] Potassium 4.0 3.5 - 5.1 meq/L [facility] Chloride 105 98 - 107 meq/L [facility] CO2 22 22 - 29 meq/L [facility] BUN 14 7 - 21 mg/dL [facility] Creatinine 1.11 0.57 - 1.25 mg/dL [facility] Glucose 173 (H) 70 - 105 mg/dL [facility] Calcium 9.1 8.4 - 10.2 mg/dL [facility] AST 89 (H) 5 - 34 U/L [facility] ALT 41 6 - 55 U/L [facility] EGFR 69Comment: ESTIMATED GFR mL/min/1.73 sq m [facility] IS NOT ACCURATE [facility] CREATININE CLEARANCE IN PREDICTING GLOMERULAR FILTRATION RATE. ESTIMATED GFR IS NOT APPLICABLE FOR DIALYSIS PATIENTS. Specimen Blood Performing Organization Address City/State/Zipcode Phone Number [facility] [address] [place] [address] CENTER IR TIPSS Procedure (01/01/2019 1:30 PM CDT)Only the most recent of2 resultswithin the time period is included. Specimen Narrative Performed At FINAL REPORT [facility] Procedure: TIPS, 01/01/2019 HISTORY: Recurrent upper GI bleeding, portal hypertension Anesthesia: General Approach: Right internal jugular vein, left portal vein Modality: Ultrasound and fluoroscopy, fluoroscopy time: 32.8 minutes, total dose: 1290 mGy, reference air kerma method After obtaining written informed consent, this procedure was performed with general anesthesia without untoward effect. All elements maximal sterile barrier technique were utilized. Using real-time ultrasound guidance, the right internal jugular vein was accessed percutaneously. A guidewire was advanced inferiorly and into the right hepatic vein. Contrast venography discloses patency of right hepatic vein. A coaxial needle system was then advanced into the hepatic vein and several passes were made through the liver and attempts to find the right portal vein. The right portal vein could not be accessed. Using real-time ultrasound guidance, left portal vein was then accessed percutaneously and a microcatheter positioned in the portal vein. Portal venography was then performed disclosing location of the right, left and main portal veins. The needle system was then advanced into the right portal vein with subsequent advancement of the guidewire into the main portal vein. Pressures were obtained disclosing portal venous pressure of 21, right atrial pressure of 5 mmHg. An 8 cm in length Viatorr stent graft was then placed from the right portal vein to the hepatic veins and dilated to 9 mm in diameter. Post stent placement pressures discloses a right atrial pressure of 9 mm in the portal vein pressure of 14 mm with a gradient of 5 mmHg. Angiography of the TIPS discloses satisfactory positioning and flow dynamics with some opacification of the right and left branches. CONCLUSION: Placement of TIPS.. Signed: Sola Camarillo MD Report Verified Date/Time:01/01/2019 17:21:51 Reading Location: [place] [address] Angio Body Reading Room Procedure Note Interface, External Ris In - 01/01/2019 5:24 PM CDT FINAL REPORT Procedure: TIPS, 01/01/2019 HISTORY: Recurrent upper GI bleeding, portal hypertension Anesthesia: General Approach: Right internal jugular vein, left portal vein Modality: Ultrasound and fluoroscopy, fluoroscopy time: 32.8 minutes, total dose: 1290 mGy, reference air kerma method After obtaining written informed consent, this procedure was performed with general anesthesia without untoward effect. All elements maximal sterile barrier technique were utilized. Using real-time ultrasound guidance, the right internal jugular vein was accessed percutaneously. A guidewire was advanced inferiorly and into the right hepatic vein. Contrast venography discloses patency of right hepatic vein. A coaxial needle system was then advanced into the hepatic vein and several passes were made through the liver and attempts to find the right portal vein. The right portal vein could not be accessed. Using real-time ultrasound guidance, left portal vein was then accessed percutaneously and a microcatheter positioned in the portal vein. Portal venography was then performed disclosing location of the right, left and main portal veins. The needle system was then advanced into the right portal vein with subsequent advancement of the guidewire into the main portal vein. Pressures were obtained disclosing portal venous pressure of 21, right atrial pressure of 5 mmHg. An 8 cm in length Viatorr stent graft was then placed from the right portal vein to the hepatic veins and dilated to 9 mm in diameter. Post stent placement pressures discloses a right atrial pressure of 9 mm in the portal vein pressure of 14 mm with a gradient of 5 mmHg. Angiography of the TIPS discloses satisfactory positioning and flow dynamics with some opacification of the right and left branches. CONCLUSION: Placement of TIPS.. Signed: Sola Camarillo MD Report Verified Date/Time: 01/01/2019 17:21:51 Reading Location: [place] [address] Angio Body Reading Room Performing Organization Address City/State/Zipcode Phone Number [employer] [facility] Type and screen, automated (01/01/2019 5:12 AM CDT)Only the most recent of4 resultswithin the time period is included. ABO/RH AUTOMATED (BEAKER) O POSITIVE [facility] Ab Scrn NEGATIVE [facility] Specimen Blood Performing Organization Address City/State/Zipcode Phone Number [facility] [address] [place] [address] [phone] Calcium, Ionized (01/01/2019 5:12 AM CDT)Only the most recent of7 resultswithin the time period is included. Calcium, Ion 0.81 (L) 1.12 - 1.27 mmol/L [facility] pH, Blood 7.50 [facility] Specimen Blood Performing Organization Address [facility]/Zipcode Phone Number [address] [address] [facility] ECHOCARDIOGRAM REPORT - SCAN (12/31/2018 9:11 PM CDT) Narrative Performed At B-type Natriuretic Factor (BNP) (12/31/2018 5:12 AM CDT)Only the most recent of2 resultswithin the time period is included. BNP 99 0 - 100 pg/mL [facility] Specimen Blood Performing Organization Address [facility] Centercode Phone Number [address] [address] [facility] Basic Metabolic Panel (12/31/2018 5:12 AM CDT)Only the most recent of11 resultswithin the time period is included. Sodium 138 136 - 145 meq/L [facility] Potassium 3.8 3.5 - 5.1 meq/L [facility] Chloride 104 98 - 107 meq/L [facility] CO2 27 22 - 29 meq/L [facility] BUN 19 7 - 21 mg/dL [facility] Creatinine 1.26 (H) 0.57 - 1.25 mg/dL [facility] Glucose 191 (H) 70 - 105 mg/dL [facility] Calcium 8.9 8.4 - 10.2 mg/dL [facility] EGFR 59Comment: ESTIMATED GFR IS mL/min/1.73 sq m [facility] NOT ACCURATE [facility] CENTER CLEARANCE IN PREDICTING GLOMERULAR FILTRATION RATE. ESTIMATED GFR IS NOT APPLICABLE FOR DIALYSIS PATIENTS. Specimen Blood Performing Organization Address [facility]/Zipcode Phone Number [place] [phone] [place] [address] [facility] 2D Echo W/Doppler(CW/PW/Color) (12/30/2018 6:15 PM CDT) Ejection Fraction [facility] Specimen Narrative Performed At Transthoracic Echocardiography Report (TTE) [facility] Patient Name Rusty MORRIS of Study 12/30/2018 [id number] GenderMale Visit Number [id number] Unknown [id number] Room Number 735 Number Date of Birth1965Referring Physician Age53 year(s)Cloth Piecer Anita Aiken [facility] [[email or web address]] InterpretingRaym acacia Finch, Physician Fellow [facility]AN[facility] Procedure Type of Study TTE procedure:2DECHO W DOPPLER(CW/PW/COLOR) (STAT) Indications:Evaluation of suspected pulmonary hypertension. Clinical History Alcoholism Cirrhosis Diabetes Hepatitis C Hypertension 12/20/18 R Cath HGB 8.4 HCT 28.7 % Height: 62 inches Weight: 74.84 kg (165 lbs) BSA: 1.76 m^2 BMI: 30.18 kg/m^2 HR: 95 bpm BP: 127/65 mmHg Summary The LV endocardium is adequately visualized. The left ventricle is chamber size (by vol index) is normal (male - LVED vol - 34-74ml/m2). Normal LV wall thickness. All of the LV segments contract normally . LVEF by Rasmussen's method of disk assessment is normal (60%) . The estimated RA pressure by IVC dynamics 5-10mmHg . A trace of tricuspid regurgitation. Estimated peak systolic PA pressure is 25-30 mmHg . Previous Study In comparison to the prior study and in addressing the clinical question, the PA pressures have improved Signature Findings Rhythm/BPRegular sinus rhythm during the exam. Left Ventricle The LV endocardium is adequately visualized. Th e left ventricle is chamber size (by vol index) is normal (male - LVED vol - 34-74ml/m2). No rmal LV wall thickness. Al l of the LV segments contract normally . LV EF by Rasmussen's method of disk assessment is no rmal (60%) . Gr kieran 1 diastolic dysfunction (impaired relaxation an d low-normal LA pressure). Left AtriumLA size is normal (16-34 ml/m2) . Right VentricleThe right ventricular chamber size and systolic fu nction are within normal limits. Right Atrium RA size is probably normal based on available vi ews. Aortic Valve Normal AoV structure and function Mitral Valve Normal MV structure Tr walter MR Tricuspid ValveTV structure is normal. A trace of tricuspid regurgitation. Es timated peak systolic PA pressure is 25-30 mmHg . Pulmonic Valve Normal PV structure appears normal by available vi ews. AortaAortic root size (SInus of Valsalva diameter) is alina rderline dilated PericardiumNo significant pericardial effusion is visualized. IVC/SVC/PA/PV/PleuralThe estimated RA pressure by IVC dynamics 5-10mmHg . Chambers/Structures Left Atrium LA Volume: 41.68 ml LA Area: 15.78 cm^2 LA Vol. Index: 24 ml/m^2 Left Ventricle LVIDd: 4.84 cm LVIDs: 4.01 cm LV Septum Diastolic: 0.76 cm LV PW Diastolic: 1.06 cmLV FS: 17.2 % LVEDV Rasmussen's:111.18 ml LVESV Rasmussen's:51.06 mlLVEDVI: 63 ml/m^2 LVEF Rasmussen's: 54.1 %LVESV I: 29 ml/m^2 LVOT Diameter: 1.87 cm Aorta Ao Root S of Sondra.: 3.46 cm Doppler/Quantitative Measurements Aortic Valve Peak Velocity: 1.39 m/sMean Velocity: 0.92 m/s Peak Gradient: 7.69 mmHg Mean Gradient: 3.96 mmHg AV Area (continuity): 3.05 cm^2 AV VTI: 22.15 cm AV DVI: 1.11 LVOT Peak Velocity: 1.43 m/s Peak Gradient: 8.15 mmHg Mean Velocity: 0.95 m/s Mean Gradient: 4.15 mmHg LVOT Diameter: 1.87 cmLVOT VTI: 24.58 cm LVOT Area: 2.75 cm^2LVOT SV:67.47 ml LVOT CO: 6.41 l/min LVOT CI: 3.64 l/min/m^2 Tricuspid Valve TR Velocity: 2.24 m/s TR Gradient: 20.16 mmHg Procedure Note Interface, External Ris In - 12/31/2018 8:14 AM CDT Transthoracic Echocardiography Report (TTE) Demographics Patient Name RUBEN MORRIS Date of Study 12/30/2018 Gender Male Visit Number [id number] Race Unknown Room Number 735 Number Date of 1965 Referring Physician Age 53 year(s) Cloth Piecer Anita Aiken [facility] [[email or web address]] Interpreting Bhanu Finch Physician Fellow [facility] Vega Procedure Type of Study TTE procedure:2DECHO W DOPPLER(CW/PW/COLOR) (STAT) Indications:Evaluation of suspected pulmonary hypertension. Clinical History Alcoholism Cirrhosis Diabetes Hepatitis C Hypertension 12/20/18 R Cath HGB 8.4 HCT 28.7 % Height: 62 inches Weight: 74.84 kg (165 lbs) BSA: 1.76 m^2 BMI: 30.18 kg/m^2 HR: 95 bpm BP: 127/65 mmHg Summary The LV endocardium is adequately visualized. The left ventricle is chamber size (by vol index) is normal (male - LVED vol - 34-74ml/m2). Normal LV wall thickness. All of the LV segments contract normally . LVEF by Rasmussen's method of disk assessment is normal (60%) . The estimated RA pressure by IVC dynamics 5-10mmHg . A trace of tricuspid regurgitation. Estimated peak systolic PA pressure is 25-30 mmHg . Previous Study In comparison to the prior study and in addressing the clinical question, the PA pressures have improved Signature Findings Rhythm/BP Regular sinus rhythm during the exam. Left Ventricle The LV endocardium is adequately visualized. The left ventricle is chamber size (by vol index) is normal (male - LVED vol - 34-74ml/m2). Normal LV wall thickness. All of the LV segments contract normally . LVEF by Rasmussen's method of disk assessment is normal (60%) . Grade 1 diastolic dysfunction (impaired relaxation and low-normal LA pressure). Left Atrium LA size is normal (16-34 ml/m2) . Right Ventricle The right ventricular chamber size and systolic function are within normal limits. Right Atrium RA size is probably normal based on available views. Aortic Valve Normal AoV structure and function Mitral Valve Normal MV structure Trace MR Tricuspid Valve TV structure is normal. A trace of tricuspid regurgitation. Estimated peak systolic PA pressure is 25-30 mmHg . Pulmonic Valve Normal PV structure appears normal by available views. Aorta Aortic root size (SInus of Valsalva diameter) is borderline dilated Pericardium No significant pericardial effusion is visualized. IVC/SVC/PA/PV/Pleural The estimated RA pressure by IVC dynamics 5-10mmHg . Chambers/Structures Left Atrium LA Volume: 41.68 ml LA Area: 15.78 cm^2 LA Vol. Index: 24 ml/m^2 Left Ventricle LVIDd: 4.84 cm LVIDs: 4.01 cm LV Septum Diastolic: 0.76 cm LV PW Diastolic: 1.06 cm LV FS: 17.2 % LVEDV Rasmussen's:111.18 ml LVESV Rasmussen's:51.06 ml LVEDVI: 63 ml/m^2 LVEF Rasmussen's: 54.1 % LVESVI: 29 ml/m^2 LVOT Diameter: 1.87 cm Aorta Ao Root S of Sondra.: 3.46 cm Doppler/Quantitative Measurements Aortic Valve Peak Velocity: 1.39 m/s Mean Velocity: 0.92 m/s Peak Gradient: 7.69 mmHg Mean Gradient: 3.96 mmHg AV Area (continuity): 3.05 cm^2 AV VTI: 22.15 cm AV DVI: 1.11 LVOT Peak Velocity: 1.43 m/s Peak Gradient: 8.15 mmHg Mean Velocity: 0.95 m/s Mean Gradient: 4.15 mmHg LVOT Diameter: 1.87 cm LVOT VTI: 24.58 cm LVOT Area: 2.75 cm^2 LVOT SV:67.47 ml LVOT CO: 6.41 l/min LVOT CI: 3.64 l/min/m^2 Tricuspid Valve TR Velocity: 2.24 m/s TR Gradient: 20.16 mmHg Performing Organization Address City/State/Zipcode Phone Number [facility] NM bone scan whole body (12/30/2018 4:34 PM CDT) Specimen Narrative Performed At FINAL REPORT [facility] PROCEDURE: BONE SCAN, WHOLE BODY CPT CODE:39808 INDICATION:Hepatocellular carcinoma, preoperative evaluation for liver transplant PROTOCOL:21.9 mCi of Tc-99m MDP was injected intravenously. Whole body and selected spot images were obtained approximately 3 hours later. FINDINGS: Tracer activity is focally moderately increased in the anterior portion of the left side of the mandible. There is mild focal increase in the posterior aspects of left ribs 6-9. Distribution is mildly irregular within the cervical and lower lumbar spine as well as in the left wrist, left knee, and feet. IMPRESSION: 1. No evidence of bony neoplastic disease. 2. Left rib findings suggest remote traumatic etiology. 3. Mild degenerative disease and the spine and peripheral joints. 4. Left mandibular periodontal abnormality. Images for comparison/correlation were recent mandibular radiograph, abdominal MR I, and chest CT. Signed: Calderon Gordillo MD Report Verified Date/Time:12/30/2018 16:47:37 Reading Location: [address] [place] [address] Reading Room Procedure Note Interface, External Ris In - 12/30/2018 4:49 PM CDT FINAL REPORT PROCEDURE: BONE SCAN, WHOLE BODY CPT CODE: 57602 INDICATION: Hepatocellular carcinoma, preoperative evaluation for liver transplant PROTOCOL: 21.9 mCi of Tc-99m MDP was injected intravenously. Whole body and selected spot images were obtained approximately 3 hours later. FINDINGS: Tracer activity is focally moderately increased in the anterior portion of the left side of the mandible. There is mild focal increase in the posterior aspects of left ribs 6-9. Distribution is mildly irregular within the cervical and lower lumbar spine as well as in the left wrist, left knee, and feet. IMPRESSION: 1. No evidence of bony neoplastic disease. 2. Left rib findings suggest remote traumatic etiology. 3. Mild degenerative disease and the spine and peripheral joints. 4. Left mandibular periodontal abnormality. Images for comparison/correlation were recent mandibular radiograph, abdominal MR I, and chest CT. Signed: Calderon Gordillo MD Report Verified Date/Time: 12/30/2018 16:47:37 Reading Location: [address] Reading Room Performing Organization Address City/State/Zipcode Phone Number [facility] CT chest without IV contrast (12/30/2018 11:03 AM CDT) Specimen Narrative Performed At FINAL REPORT [facility] CT Chest without contrast History: Hepatocellular carcinoma, screening for lung metastasis Comparison: none Technique: serial axial imaging was performed without intravenous contrast as per departmental protocol.Multiplanar images are reconstructed and reviewed when indicated. This CT examination is performed using one or more of the following dose reduction techniques: Automated exposure control, adjustment of the mA and /or kV according to patient size, and/or use of iterative reconstruction technique. Findings: No mediastinal lymphadenopathy. No definite hilar enlargement. Normal size heart.No pericardial effusion. No thoracic aortic aneurysm.Normal caliber of main pulmonary trunk. Patent central airways.No pleural effusion or pneumothorax. Calcified granuloma within the left upper lobe is consistent with previous granulomatous disease. The lungs are otherwise clear. The partially imaged liver appears cirrhotic.Mild esophageal varices, consistent with portal hypertension. No aggressive osseous lesion. Impression: No acute or metastatic disease in the chest. Signed: Elmer Perry MD Report Verified Date/Time:12/30/2018 12:26:39 Reading Location: [facility] Diagnostic Imaging Reading Room - [place] [id number] Procedure Note Interface, External Ris In - 12/30/2018 12:28 PM CDT FINAL REPORT CT Chest without contrast History: Hepatocellular carcinoma, screening for lung metastasis Comparison: none Technique: serial axial imaging was performed without intravenous contrast as per departmental protocol. Multiplanar images are reconstructed and reviewed when indicated. This CT examination is performed using one or more of the following dose reduction techniques: Automated exposure control, adjustment of the mA and /or kV according to patient size, and/or use of iterative reconstruction technique. Findings: No mediastinal lymphadenopathy. No definite hilar enlargement. Normal size heart. No pericardial effusion. No thoracic aortic aneurysm. Normal caliber of main pulmonary trunk. Patent central airways. No pleural effusion or pneumothorax. Calcified granuloma within the left upper lobe is consistent with previous granulomatous disease. The lungs are otherwise clear. The partially imaged liver appears cirrhotic. Mild esophageal varices, consistent with portal hypertension. No aggressive osseous lesion. Impression: No acute or metastatic disease in the chest. Signed: Elmer Perry MD Report Verified Date/Time: 12/30/2018 12:26:39 Reading Location: [facility] Diagnostic Imaging Reading Room - [place] [address] Performing Organization Address City/State/Zipcode Phone Number [facility] REPORT OF PROCEDURE - ENDOSCOPY URL (12/27/2018 10:16 AM CDT) Narrative Performed At Prothrombin time/INR (12/27/2018 5:35 AM CDT)Only the most recent of5 resultswithin the time period is included. Protime 15.2 (H) 11.7 - 14.7 seconds [facility] INR 1.2 <=5.9 [facility] Specimen Blood Narrative Performed At RECOMMENDED COUMADIN/WARFARIN INR THERAPY [facility] RANGES STANDARD DOSE: 2.0 - 3.0 Includes: PROPHYLAXIS for venous thrombosis, systemic embolization; TREATMENT for venous thrombosis and/or pulmonary embolus. HIGH RISK: Target INR is 2.5-3.5 for patients with mechanical heart valves. Performing Organization Address City/State/Zipcode Phone Number [address] [address] CENTER PT/aPTT (12/26/2018 7:20 AM CDT) Protime 15.4 (H) 11.7 - 14.7 seconds [facility] INR 1.2 <=5.9 [facility] PTT 35.4 22.5 - 36.0 seconds [facility] Specimen Blood Narrative Performed At RECOMMENDED COUMADIN/WARFARIN INR THERAPY [facility] RANGES STANDARD DOSE: 2.0 - 3.0 Includes: PROPHYLAXIS for venous thrombosis, systemic embolization; TREATMENT for venous thrombosis and/or pulmonary embolus. HIGH RISK: Target INR is 2.5-3.5 for patients with mechanical heart valves. Performing Organization Address City/State/Zipcode Phone Number [facility] [address] [place] [address] CENTER Urinalysis w/Microscopic (12/25/2018 4:37 PM CDT) Color, UA Light Yellow [facility] Clarity, UA Clear [facility] Specific [place], UA 1.008 1.001 - 1.035 [facility] pH, UA 7.5 5.0 - 8.0 [facility] Protein, UA 30 mg/dL (A) Negative [facility] Glucose, UA 30 mg/dL (A) Negative [facility] Ketones, UA Negative Negative [facility] Bilirubin, UA Negative Negative [facility] Blood, UA Trace (A) Negative [facility] Nitrite, UA Negative Negative [facility] Leukocytes, UA Negative Negative [facility] Urobilinogen, UA 0.2 0.2 - 1.0 mg/dL [facility] RBC, UA 1 /HPF [facility] WBC, UA 1 /HPF [facility] Specimen Source Urine, Voided [facility] Specimen Urine Performing Organization Address City/[facility]/Zipcode Phone Number [facility] [address] [place] [address] CENTER ECG 12 lead (12/25/2018 4:12 PM CDT) Specimen Narrative Performed At Ventricular Rate 90 BPM GE MUSE Atrial Rate 90 BPM P-R Interval 160 ms QRS Duration 76 ms Q-T Interval 372 ms QTC Calculation(Bazett) 455 ms P [place] 42 degrees R [place] -4 degrees T [place] 58 degrees Normal sinus rhythm Normal ECG No previous ECGs available Confirmed by MD MEANS JORGE ([id number]) on 12/26/2018 12:38:36 PM Procedure Note Interface, External Ris In - 12/26/2018 12:38 PM CDT Ventricular Rate 90 BPM Atrial Rate 90 BPM P-R Interval 160 ms QRS Duration 76 ms Q-T Interval 372 ms QTC Calculation(Bazett) 455 ms P [place] 42 degrees R [place] -4 degrees T [place] 58 degrees Normal sinus rhythm Normal ECG No previous ECGs available Confirmed by MD MEANS JORGE ([id number]) on 12/26/2018 12:38:36 PM Performing Organization Address City/[facility] Cent[facility] Phone Number [facility] CBC (Hemogram only) (12/23/2018 4:31 AM CDT)Only the most recent of5 resultswithin the time period is included. WBC 4.4 3.5 - 10.5 K/L [facility] RBC 4.11 (L) 4.63 - 6.08 M/L [facility] Hemoglobin 8.0 (L) 13.7 - 17.5 GM/DL [facility] Hematocrit 28.2 (L) 40.1 - 51.0 % [facility] MCV 68.6 (L) 79.0 - 92.2 fL [facility] MCH 19.5 (L) 25.7 - 32.2 pg [facility] MCHC 28.4 (L) 32.3 - 36.5 GM/DL [facility] RDW 21.5 (H) 11.6 - 14.4 % [facility] Platelets 121 (L) 150 - 450 K/CU MM [facility] MPV 10.2 9.4 - 12.4 fL [facility] nRBC 0 0 - 0 /100 WBC [facility] Specimen Blood Performing Organization Address City/State/Zipcode Phone Number [facility] [address] [place] [address] [place] Hepatic function panel (12/23/2018 4:31 AM CDT)Only the most recent of5 resultswithin the time period is included. Protein, Total 6.5 6.0 - 8.3 gm/dL [facility] Albumin 2.7 (L) 3.5 - 5.0 g/dL [facility] Total Bilirubin 0.8 0.2 - 1.2 mg/dL [facility] Bilirubin, Direct 0.6 (H) 0.1 - 0.5 mg/dL [facility] Alkaline Phosphatase 141 40 - 150 U/L [facility] AST 66 (H) 5 - 34 U/L [facility] ALT 27 6 - 55 U/L [facility] Specimen Blood Performing Organization Address City/[facility]/Zipcode Phone Number [facility] [address] [place] [address] [place] XR mandible min 4 views (12/21/2018 4:35 PM CDT) Specimen Narrative Performed At FINAL REPORT [facility] EXAMINATION: Mandible series, 4 views CLINICAL INDICATION: Liver transplant candidate. Evaluate for odontogenic infection. IMPRESSION: Although odontogenic infection cannot be excluded, there is no definite evidence of periapical radiolucency along the tooth roots. Paranasal sinuses and mastoid air cells appear relatively well pneumatized. Orbits are unremarkable. If there is persistent clinical concern, consider a maxillofacial CT. Signed: Anita Mauricio MD Report Verified Date/Time:12/21/2018 17:16:26 Reading Location: [address] Reading Room Procedure Note Interface, External Ris In - 12/21/2018 5:18 PM CDT FINAL REPORT EXAMINATION: Mandible series, 4 views CLINICAL INDICATION: Liver transplant candidate. Evaluate for odontogenic infection. IMPRESSION: Although odontogenic infection cannot be excluded, there is no definite evidence of periapical radiolucency along the tooth roots. Paranasal sinuses and mastoid air cells appear relatively well pneumatized. Orbits are unremarkable. If there is persistent clinical concern, consider a maxillofacial CT. Signed: Anita Mauricio MD Report Verified Date/Time: 12/21/2018 17:16:26 Reading Location: [address] Reading Room Performing Organization Address [facility] Phone Number RIS Zinc (12/21/2018 4:34 AM CDT) Zinc 31 (L) 60 - 130 mcg/dL [facility] Comment: INCORPORATED This test was developed and its analytical performance characteristics have been determined by [employer] [place]. It has not been cleared or approved by the [place] Food and Drug Administration. This assay has been validated pursuant to the CLIA regulations and is used for clinical purposes. Specimen Blood Narrative Performed At Performing Lab [facility] *[facility] [employer] [facility] [place] [facility], [id number] [place] [phone] Violet Alves MD, PhD Performing Organization Address City/[facility] Phone Number [facility], [place] [address] [address] [facility] PERIPHERAL VASCULAR REPORT - SCAN (12/20/2018 9:21 PM CDT) Narrative Performed At T Spot TB (12/20/2018 5:23 AM CDT) T-Spot TB Negative [facility] Neg Ctrl Spot Count 0 [facility] Panel A Spot 0 [facility] Panel B Spot 2 [facility] Pos Ctrl Spot Ct 0 [facility] Scan Result [facility] Specimen Blood Narrative Performed At Performing Organization Address City/State/Zipcode Phone Number [facility] [place] [address] LAB[address] ECHOCARDIOGRAM REPORT - SCAN (12/19/2018 9:12 PM CDT) Narrative Performed At Blood gas, arterial (12/19/2018 7:57 PM CDT) pH, Arterial 7.48 (H) 7.35 - 7.45 [facility] pCO2, Arterial 38 35 - 45 mmHg [facility] pO2, Arterial 83 80 - 90 mmHg [facility] O2 Sat, Arterial 97.1 (H) 96.0 - 97.0 % [facility] HCO3, Arterial 28 21 - 29 mmol/L [facility] Base Excess, Arterial 4.0 (H) -2.0 - 3.0 mmol/L [facility] Patient Temperature 36.3 C [facility] FIO2 21.0 % [facility] Specimen Blood, Arterial Performing Organization Address [facility] Centercode Phone Number [address] [address] [place] Drug screen, urine, transplant (12/19/2018 5:34 PM CDT) Specimen Urine Narrative Performed At Performing Organization Address City/[facility]/Zipcode Phone Number [facility] [address] [place] [address] HIV-1 Antigen with HIV-1/2 Antibody (12/19/2018 5:19 PM CDT) HIV-1 Antigen with HIV 1&2 NON-REACTIVE Nonreactive [facility] Specimen Blood Performing Organization Address City/[facility]/Zipcode Phone Number [address] [address] CENTER Cytomegalovirus antibody, IgM (12/19/2018 5:19 PM CDT) CMV IGM Negative Negative, Equivocal [facility] Specimen Blood Narrative Performed At CMV IgM Result Interpretation: [facility] </=0.8 Al Negative 0.9-1.0 Al Equivocal >/=1.1 Al Positive Performing Organization Address City/[facility] Centercode Phone Number [address] [address] [phone] [place] Hepatitis A antibody, IgM (12/19/2018 5:19 PM CDT) Hep A IgM HEPATITIS A TEST NEGATIVE Nonreactive [facility] Specimen Blood Performing Organization Address [facility] Phone Number [address] [address] [place] Cryptococcal antigen (12/19/2018 5:19 PM CDT) Cryptococcal Antigen, Serum Negative Negative, Interference [facility] Specimen Blood Performing Organization Address [facility] Phone Number [address] [address] [place] Carbohydrate antigen 19-9 (CA 19-9) (12/19/2018 5:19 PM CDT) CA 19-9 23 <34 U/mL [facility] Comment: This test was performed using the Siemens Chemiluminescent method. Values obtained from different assay methods cannot be used interchangeably. CA19-9 levels, regardless of value, should not be interpreted as absolute evidence of the presence or absence of disease. Specimen Blood Narrative Performed At Performing Lab [facility] [address] [address] Gokul Moore MD, PhD, COSMO Performing Organization Address [facility] Phone [place] [address] [address] [facility] Ceruloplasmin (12/19/2018 5:19 PM CDT)Only the most recent of2 resultswithin the time period is included. Ceruloplasmin 36 18 - 36 mg/dL [facility] Comment: Adults:Males: 18-36 mg/dL Females: 18-53 mg/dL Pediatrics:Males (mg/dL)Females (mg/dL) 0-30 Days 8-25 3-28 31 Days-11 Month [id number] 1-3 [id number] 4-6 [id number] 7-9 [id number] 10-12 [id number] 13-15 [id number] 16-18 [id number] The pediatric ranges are derived from the following criteria: Rhea SJ, Bharat NUÑEZ, Sirena J et al Pediatric reference ranges for Adlf-2-Fwvrcwhqibyuw and ceruloplasmin. Clin. Chem 1997; 43:S1999 Pediatric Reference Ranges, 2nd., [place] Rheaet al. editors. [employer], [place], [place] 1997. Specimen Blood Narrative Performed At Performing Lab [facility] *[facility] [employer] [facility], [address] [place] [phone] Violet Alves MD, PhD Performing Organization Address City/[facility] [place] [facility] Centercode Phone Number [place] [address] [address] [facility] Hepatitis B core antibody, IgM (12/19/2018 5:19 PM CDT) Hep B C IgM NON-REACTIVE Nonreactive [facility] Specimen Blood Performing Organization Address City/[facility]/Zipcode Phone Number [address] [address] [phone] CENTER EBV-VCA antibody, IgM (12/19/2018 5:19 PM CDT) JAQUELINE MEDRANO VIRAL CAPSID Negative Negative, Equivocal [facility] Specimen Blood Narrative Performed At Jaqueline Medrano Viral Capsid Antigen IgM Result [facility] Interpretation: </=0.8 Al Negative 0.9-1.0 Al Equivocal >/=1.1 Al Positive Performing Organization Address City/[facility] Centercode Phone Number [facility] [address] [phone] [place] EBV-VCA antibody, IgG (12/19/2018 5:19 PM CDT) JAQUELINE MEDRANO VIRAL CAPSID Positive (A) Negative, Equivocal [facility] Specimen Blood Narrative Performed At Jaqueline Medrano Viral Capsid Antigen IgG Result [facility] Interpretation: </=0.8 Al Negative 0.9-1.0 Al Equivocal >/=1.1 Al Positive Performing Organization Address City/[facility] Centercode Phone Number [address] [address] [phone] [place] Vitamin D, 25-Hydroxy (12/19/2018 5:19 PM CDT) Vitamin D 25-Hydroxy 6.6 6.6 - 49.9 ng/mL [facility] Specimen Blood Narrative Performed At Effective 07/04/2017: Reference Range Change [facility] New: 6.6-49.9 ng/mL Previous: 13.0-47.8 ng/mL Recommended Vitamin D Target Range: 30.0-40.0 ng/mL Performing Organization Address [facility] Phone Number [address] [address] [place] RPR (12/19/2018 5:19 PM CDT) RPR Nonreactive Nonreactive [facility] Specimen Blood Performing Organization Address City/[facility] Centercode Phone Number [address] [address] [phone] CENTER Hepatitis B surface antibody (12/19/2018 5:19 PM CDT) Hep B S Ab <8.0 <8.0 mIU/mL [facility] Specimen Blood Performing Organization Address [facility] Centercode Phone Number [address] [address] [phone] [place] Hepatitis B surface antigen (12/19/2018 5:19 PM CDT) hepatitis B Surface Ag NON-REACTIVE Nonreactive [facility] Specimen Blood Performing Organization Address City/[facility]/Zipcode Phone Number [facility] [address] [place] [address] [place] Cytomegalovirus antibody, IgG (12/19/2018 5:19 PM CDT) CYTOMEGALOVIRUS, IGG Positive (A) Negative, Equivocal [facility] Specimen Blood Narrative Performed At CMV IgG Result Interpretation: [facility] </=0.8 Al Negative 0.9-1.0 Al Equivocal >/=1.1 AlPositive Performing Organization Address [facility] Phone Number [facility] [address] [place] [address] CENTER Testosterone, free + total (12/19/2018 5:19 PM CDT) Testosterone 327 250 - 1100 ng/dL [facility] Testosterone, Free 27.2 (L) 35.0 - 155.0 [facility] Comment: pg/mL INCORPORATED Data from J Clin Invest 1974:53:819-828 and J Clin Endocrinol Metab 1973;36:1309-8510. Men with clinically significant hypogonadal symptoms and testosterone values repeatedly in the range of the 200-300 ng/dL or less, may benefit from testosterone treatment after adequate risk and benefits counseling. For additional information, please refer to http://education.[employer].ShopEat/faq/ABY002 (This link is being provided for informational/ educational purposes only.) This test was developed and its analytical performance characteristics have been determined by [employer] [place]. It has not been cleared or approved by the [place] Food and Drug Administration. This assay has been validated pursuant to the CLIA regulations and is used for clinical purposes. Specimen Blood Narrative Performed At Performing Lab [employer] [facility] *[facility] [employer] [place] [facility], [address] [place] [address] Violet Alves MD, PhD Performing Organization Address City/[facility]/Zipcode Phone Number [employer], [place] [id number] [place] [address] Uric acid (12/19/2018 5:19 PM CDT) Uric Acid 4.7 2.6 - 7.2 mg/dL [facility] Specimen Blood Performing Organization Address City/State/Zipcode Phone Number [address] [address] [phone] [facility] T3 (12/19/2018 5:19 PM CDT) T3, Total 108 48 - 159 ng/dL [facility] Specimen Blood Performing Organization Address City/State/Zipcode Phone Number [address] [address] [phone] [facility] Transferrin (12/19/2018 5:19 PM CDT) Transferrin 288 174 - 382 mg/dL [facility] Specimen Blood Performing Organization Address City/State/Zipcode Phone Number [address] [address] [facility] TSH (12/19/2018 5:19 PM CDT) TSH 5.24 (H) 0.35 - 4.94 uIU/mL [facility] Specimen Blood Performing Organization Address City/State/Zipcode Phone Number [address] [address] [facility] T4 (12/19/2018 5:19 PM CDT) T4, Total 6.9 4.9 - 11.7 ug/dL [facility] Specimen Blood Performing Organization Address City/State/Zipcode Phone Number [address] [address] [phone] [facility] PSA (12/19/2018 5:19 PM CDT) PSA 0.5 0.0 - 4.0 ng/mL [facility] Specimen Blood Performing Organization Address City/State/Zipcode Phone Number [address] [place] [address] CENTER Hemoglobin A1c (12/19/2018 5:19 PM CDT) Hemoglobin A1C 6.7 (H) 4.3 - 6.1 % [facility] Specimen Blood Performing Organization Address City/[facility]/Zipcode Phone Number [address] [address] CENTER Gamma Glutamyl Transferase (GGT) (12/19/2018 5:19 PM CDT) GGT 24 9 - 64 U/L [facility] Specimen Blood Performing Organization Address [facility] Phone Number [address] [address] [phone] CENTER Carcinoembryonic Antigen (CEA) (12/19/2018 5:19 PM CDT) CEA, SERUM 1.9 0.0 - 5.0 ng/mL [facility] Specimen Blood Performing Organization Address [facility] Cent[facility] Phone Number [address] [address] [phone] CENTER Ethanol (12/19/2018 5:19 PM CDT)Only the most recent of2 resultswithin the time period is included. Ethanol Lvl <10 <=10 mg/dL [facility] Specimen Blood Performing Organization Address [facility] Cent[facility] Phone Number [address] [address] [facility] Lipid panel (12/19/2018 5:19 PM CDT) Triglycerides 47 mg/dL [facility] Cholesterol 104 mg/dL [facility] HDL 33 mg/dL [facility] LDL Calculated 62 mg/dL [facility] Specimen Blood Narrative Performed At Triglyceride Reference Range: [facility] Low Risk <150 [id number] High Risk 200-499 Very High Risk>=500 Cholesterol Reference Range: Low Risk <200 Jyyrrbrlrs253-074 High Risk>240 HDL Cholesterol Reference Range: Low Risk >=60 High Risk <40 LDL Cholesterol Reference Range: Optimal<100 Near Ejzakeb578-306 Mrdvtpmtmy765-524 Zikg560-997 Very High >=190 Performing Organization Address City/State/Zipcode Phone Number [facility] [address] [place] [address] [phone] CENTER [id number] PHENOTYP (12/19/2018 5:18 PM CDT) A-1 Antitryp Phenotyp [facility] Specimen Blood - Other Narrative Performed At Performing Organization Address City/State/Zipcode Phone Number [place] [address] [address] [facility] Carotid doppler bilateral (12/19/2018 4:01 PM CDT) Ejection Fraction [facility] Specimen Impressions Performed At Right Impression [facility] 1. There is <50% diameter reduction (approximately 41% by 2-D measurement) in the internal carotid artery with a peak velocity of 99/26 cm/sec and heterogeneous plaque. 2. The external carotid artery is within normal limits. 3. There is non-occluding plaque in the common carotid artery. 4. The vertebral artery flow is antegrade and normal. 5. The subclavian artery is within normal limits where visualized. Left Impression 1. The internal carotid artery is within normal limits. 2. The external carotid artery is within normal limits. 3. The common carotid artery is within normal limits. 4. The vertebral artery flow is antegrade and normal. 5. The subclavian artery is within normal limits where visualized. Conclusions Summary Carotid duplex scanning and color flow imaging were performed bilaterally. The arteries were adequately visualized. The right internal carotid artery had <50% hemodynamically insignificant stenosis (approximately 41% by 2-D measurement) with heterogeneous plaque. The left internal carotid artery was normal with no plaque visualized. The vertebral artery flow was antegrade and normal bilaterally. The subclavian arteries were patent with normal flow bilaterally where visualized. Signature Velocities are measured in cm/s ; Diameters are measured in cm Carotid Right Measurements + +----+----+-----+ +---- + + !Location !PSV !EDV !Angle!%Stenosis 2D!%Stenosis Doppler!Tortuosity ! + +----+----+-----+ +---- + + !Prox CCA !113 !16.7!60 !! ! ! + +----+----+-----+ +---- + + !Dist CCA !120 !33.4!60 !! ! ! + +----+----+-----+ +---- + + !Prox ICA !99.2!26.5!60 !41% !<50% ! ! + +----+----+-----+ +---- + + !Dist ICA !86.4!25.1!60 !! ! ! + +----+----+-----+ +---- + + !Prox ECA !114 !15.7!60 !! ! ! + +----+----+-----+ +---- + + !Vertebral!39.7!9.04!60 !! ! ! + +----+----+-----+ +---- + + !Prox Subclavian!183 !!60 !! ! ! + +----+----+-----+ +---- + + - There is antegrade vertebral flow noted on the right side. - Additional Measurements:ICAPSV/CCAPSV 0.83.ICAEDV/CCAEDV 1.59. Carotid Left Measurements + +----+----+-----+ +---- + + !Location !PSV !EDV !Angle!%Stenosis 2D!%Stenosis Doppler!Tortuosity ! + +----+----+-----+ +---- + + !Prox CCA !101 !18.9!60 !! ! ! + +----+----+-----+ +---- + + !Dist CCA !104 !17.3!60 !! ! ! + +----+----+-----+ +---- + + !Prox ICA !78.6!18.1!60 !! ! ! + +----+----+-----+ +---- + + !Dist ICA !56.6!15.7!0!! ! ! + +----+----+-----+ +---- + + !Prox ECA !89.6!11!60 !! ! ! + +----+----+-----+ +---- + + !Vertebral!50.3!16.9!60 !! ! ! + +----+----+-----+ +---- + + !Prox Subclavian!152 !0 !60 !! ! ! + +----+----+-----+ +---- + + - There is antegrade vertebral flow noted on the left side. - Additional Measurements:ICAPSV/CCAPSV 0.76.ICAEDV/CCAEDV 0.96. Narrative Performed At LAB - Carotid Duplex Study [facility] Demographics Patient RUBEN Hager Date of Study 12/19/2018 Age 53 Visit [id number] GenderMale Date of 1965 Referring Edyta Sandy Room Number 735 Physician Jerel Cloth Piecer Calos Bahena Physician Procedure Type of Study: Cerebral: Carotid, CAROTID DOPPLER, BILATERAL. Indications for Study:Liver transplant evaluation. Patient Status:Routine. Study Location:Vascular Lab. Technical Quality:Adequate visualization. Risk Factors History of Disease + + +------ + !Diagnosis !Date!Comments ! + + +------ + !History/Risk Factors:!12/19/2018!Alcoholic cirrhosis! + + +------ + Procedure Note Interface, External Ris In - 12/20/2018 9:39 AM CDT [facility] - Carotid Duplex Study Demographics Patient Name RUBEN MORRIS Date of Study 12/19/2018 Age 53 Visit Number [id number] Gender Male Accession Number [id number] Date of 1965 Referring Edyta Sandy Room Number 735 Physician Jerel Cloth Piecer Calos Walters Interpreting Fern Bahena Physician Procedure Type of Study: Cerebral: Carotid, CAROTID DOPPLER, BILATERAL. Indications for Study:Liver transplant evaluation. Patient Status:Routine. Study Location:Vascular Lab. Technical Quality:Adequate visualization. Risk Factors History of Disease + + + + !Diagnosis !Date !Comments ! + + + + !History/Risk Factors: !12/19/2018!Alcoholic cirrhosis ! + + + + Impressions Right Impression 1. There is <50% diameter reduction (approximately 41% by 2-D measurement) in the internal carotid artery with a peak velocity of 99/26 cm/sec and heterogeneous plaque. 2. The external carotid artery is within normal limits. 3. There is non-occluding plaque in the common carotid artery. 4. The vertebral artery flow is antegrade and normal. 5. The subclavian artery is within normal limits where visualized. Left Impression 1. The internal carotid artery is within normal limits. 2. The external carotid artery is within normal limits. 3. The common carotid artery is within normal limits. 4. The vertebral artery flow is antegrade and normal. 5. The subclavian artery is within normal limits where visualized. Conclusions Summary Carotid duplex scanning and color flow imaging were performed bilaterally. The arteries were adequately visualized. The right internal carotid artery had <50% hemodynamically insignificant stenosis (approximately 41% by 2-D measurement) with heterogeneous plaque. The left internal carotid artery was normal with no plaque visualized. The vertebral artery flow was antegrade and normal bilaterally. The subclavian arteries were patent with normal flow bilaterally where visualized. Signature Velocities are measured in cm/s ; Diameters are measured in cm Carotid Right Measurements + +----+----+-----+ + + + !Location !PSV !EDV !Angle!%Stenosis 2D!%Stenosis Doppler!Tortuosity ! + +----+----+-----+ + + + !Prox CCA !113 !16.7!60 ! ! ! ! + +----+----+-----+ + + + !Dist CCA !120 !33.4!60 ! ! ! ! + +----+----+-----+ + + + !Prox ICA !99.2!26.5!60 !41% !<50% ! ! + +----+----+-----+ + + + !Dist ICA !86.4!25.1!60 ! ! ! ! + +----+----+-----+ + + + !Prox ECA !114 !15.7!60 ! ! ! ! + +----+----+-----+ + + + !Vertebral !39.7!9.04!60 ! ! ! ! + +----+----+-----+ + + + !Prox Subclavian!183 ! !60 ! ! ! ! + +----+----+-----+ + + + - There is antegrade vertebral flow noted on the right side. - Additional Measurements:ICAPSV/CCAPSV 0.83.ICAEDV/CCAEDV 1.59. Carotid Left Measurements + +----+----+-----+ + + + !Location !PSV !EDV !Angle!%Stenosis 2D!%Stenosis Doppler!Tortuosity ! + +----+----+-----+ + + + !Prox CCA !101 !18.9!60 ! ! ! ! + +----+----+-----+ + + + !Dist CCA !104 !17.3!60 ! ! ! ! + +----+----+-----+ + + + !Prox ICA !78.6!18.1!60 ! ! ! ! + +----+----+-----+ + + + !Dist ICA !56.6!15.7!0 ! ! ! ! + +----+----+-----+ + + + !Prox ECA !89.6!11 !60 ! ! ! ! + +----+----+-----+ + + + !Vertebral !50.3!16.9!60 ! ! ! ! + +----+----+-----+ + + + !Prox Subclavian!152 !0 !60 ! ! ! ! + +----+----+-----+ + + + - There is antegrade vertebral flow noted on the left side. - Additional Measurements:ICAPSV/CCAPSV 0.76.ICAEDV/CCAEDV 0.96. Performing Organization Address [facility] Cent[facility] Phone Number [facility] aPTT (12/19/2018 12:21 PM CDT)Only the most recent of3 resultswithin the time period is included. PTT 35.4 22.5 - 36.0 seconds [facility] Specimen Blood Performing Organization Address City/[facility]/Zipcode Phone Number [facility] [address] [place] [address] [phone] CENTER D-dimer (12/19/2018 12:21 PM CDT) D-Dimer, Quant 6.75 (H) <0.50 MG/L FEU [facility] Specimen Blood Narrative Performed At Intended Use: The D-Dimer Assay can be used [facility] to aid in the diagnosis of Deep Vein Thrombosis (DVT) and Pulmonary Embolism Disease (PED). In patients with low pre-test probability, various studies concerning STA Liatest D-dimer test have reported that with a cutoff value of 0.50 MG/L FEU, the Negative Predictive Value (NPV) regarding the exclusion of thrombosis is within 95-100% range. Performing Organization Address City/State/Zipcode Phone Number [facility] [address] [place] [address] CENTER ECHO W CONTRAST & DOPPLER (12/19/2018 8:44 AM CDT) Ejection Fraction [facility] Specimen Narrative Performed At Transthoracic Echocardiography Report (TTE) [facility] [employer] [facility] Demographics Patient RUBEN Hager Date of Study12/19/2018 Gender Male Visit [id number] Race Unknown [id number] Number Date of 1965 Referring PhysicianBennett FREIRE Age 53 year(s) SonographerJett Gann Interpreting Mart Miranda MD Physician Procedure Type of Study TTE procedure:2DECHO W/CONTRAST & DOPPLER (MERARI) Indications:Pre-surgical evaluation of organ transplant. Clinical History HGB 8.2 HCT 28.9 % ALCOHOLISM/CIRRHOSIS DM HTN Height: 62 inches Weight: 88.9 kg (196 lbs) BSA: 1.9 m^2 BMI: 35.85 kg/m^2 HR: 83 bpm BP: 148/72 mmHg Summary IV saline contrast injection was negative for a PFO (patent foramen ovale) at rest and post Valsalva . IV saline contrast with delayed imaging is negative for intra pulmonic shunting. The left ventricle is chamber size (by PSLAX dimension) is normal (male - LVIDd 4.2-5.8cm) . All of the LV segments contract normally . Estimated LVEF by qualitative assessment is normal (>60%) . Estimated peak systolic PA pressure is 50-55 mmHg . No pericardial effusion is visualized. Signature Findings Technical Quality: Technically adequate exam. Left Ventricle The left ventricle is chamber size (by PSLAX di mension) is normal (male - LVIDd 4.2-5.8cm) . No rmal LV wall thickness. Al l of the LV segments contract normally . Es timated LVEF by qualitative assessment is normal (> 60%) . Left AtriumLA size is mildly enlarged (35-41 ml/m2) . Right VentricleThe right ventricular chamber size and systolic fu nction are within normal limits. Right Atrium RA size is normal. Atrial SeptumIV saline contrast injection was negative for a PFO (p atent foramen ovale) at rest and post Valsalva . IV saline contrast with delayed imaging is negative fo r intra pulmonic shunting. Aortic Valve Normal AoV structure. Mitral Valve Normal MV structure. Tr walter mitral regurgitation. Tricuspid ValveTV structure is normal. Es timated peak systolic PA pressure is 50-55 mmHg . Pulmonic Valve Normal PV structure appears normal by available vi ews. AortaAortic root size (Sinus of Valsalva diameter) is mi ldly dilated. 3.6 cm PericardiumNo pericardial effusion is visualized. IVC/SVC/PA/PV/PleuralThe estimated RA pressure by IVC dynamics 5-10mmHg . Chambers/Structures Left Atrium LA Volume: 71.45 ml LA Area: 21.42 cm^2 LA Vol. Index: 38 ml/m^2 Left Ventricle LVIDd: 5.27 cm LVEDV:133.83 ml LVIDs: 4.08 cm LVESV:68.06 ml LV Septum Diastolic: 0.8 cmLVEF 2D Cube: 53.6 % LV Septum Systolic: 0.93 cm LV PW Diastolic: 0.85 cm LV Length: 9.62 cm LV PW Systolic: 0.87 cmLV FS: 22.6 % LVEDV Rasmussen's:139.54 ml LVESV Rasmussen's:45.73 ml LVEDVI: 73 ml/m^2 LVEF Rasmussen's: 67.2 % LVESVI: 24 ml/m^2 LVOT Diameter: 2.02 cm LVEF: 49.1 % Aorta Ascending Aorta: 2.93 cm Doppler/Quantitative Measurements Mitral Valve MV Peak E-Wave: 1.11 m/s MV Peak A-Wave: 1.02 m/s E/A Ratio: 1.08 Peak Gradient: 4.92 mmHg Deceleration Time: 179.3 msec MV Ernesto. Peak: Aortic Valve Peak Velocity: 1.28 m/sMean Velocity: 0.9 m/s Peak Gradient: 6.56 mmHg Mean Gradient: 3.71 mmHg AV Area (continuity): 2.86 cm^2 AV VTI: 28.65 cm AV DVI: 0.89 LVOT Peak Velocity: 1.17 m/s Peak Gradient: 5.53 mmHg Mean Velocity: 0.78 m/s Mean Gradient: 2.88 mmHg LVOT Diameter: 2.02 cmLVOT VTI: 25.54 cm LVOT Area: 3.2 cm^2 LVOT SV:81.81 ml LVOT CO: 6.79 l/min LVOT CI: 3.57 l/min/m^2 Procedure Note Interface, External Ris In - 12/19/2018 10:54 AM CDT Transthoracic Echocardiography Report (TTE) Demographics Patient Name RUBEN MORRIS Date of Study 12/19/2018 Gender Male Visit Number [id number] Race Unknown Room Number 735 Number Date of 1965 Referring Physician Bennett FREIRE Age 53 year(s) Cloth Piecer Jett Gann Interpreting Mart Miranda MD Physician Procedure Type of Study TTE procedure:2DECHO W/CONTRAST & DOPPLER (MERARI) Indications:Pre-surgical evaluation of organ transplant. Clinical History HGB 8.2 HCT 28.9 % ALCOHOLISM/CIRRHOSIS DM HTN Height: 62 inches Weight: 88.9 kg (196 lbs) BSA: 1.9 m^2 BMI: 35.85 kg/m^2 HR: 83 bpm BP: 148/72 mmHg Summary IV saline contrast injection was negative for a PFO (patent foramen ovale) at rest and post Valsalva . IV saline contrast with delayed imaging is negative for intra pulmonic shunting. The left ventricle is chamber size (by PSLAX dimension) is normal (male - LVIDd 4.2-5.8cm) . All of the LV segments contract normally . Estimated LVEF by qualitative assessment is normal (>60%) . Estimated peak systolic PA pressure is 50-55 mmHg . No pericardial effusion is visualized. Signature Findings Technical Quality: Technically adequate exam. Left Ventricle The left ventricle is chamber size (by PSLAX dimension) is normal (male - LVIDd 4.2-5.8cm) . Normal LV wall thickness. All of the LV segments contract normally . Estimated LVEF by qualitative assessment is normal (>60%) . Left Atrium LA size is mildly enlarged (35-41 ml/m2) . Right Ventricle The right ventricular chamber size and systolic function are within normal limits. Right Atrium RA size is normal. Atrial Septum IV saline contrast injection was negative for a PFO (patent foramen ovale) at rest and post Valsalva . IV saline contrast with delayed imaging is negative for intra pulmonic shunting. Aortic Valve Normal AoV structure. Mitral Valve Normal MV structure. Trace mitral regurgitation. Tricuspid Valve TV structure is normal. Estimated peak systolic PA pressure is 50-55 mmHg . Pulmonic Valve Normal PV structure appears normal by available views. Aorta Aortic root size (Sinus of Valsalva diameter) is mildly dilated. 3.6 cm Pericardium No pericardial effusion is visualized. IVC/SVC/PA/PV/Pleural The estimated RA pressure by IVC dynamics 5-10mmHg . Chambers/Structures Left Atrium LA Volume: 71.45 ml LA Area: 21.42 cm^2 LA Vol. Index: 38 ml/m^2 Left Ventricle LVIDd: 5.27 cm LVEDV:133.83 ml LVIDs: 4.08 cm LVESV:68.06 ml LV Septum Diastolic: 0.8 cm LVEF 2D Cube: 53.6 % LV Septum Systolic: 0.93 cm LV PW Diastolic: 0.85 cm LV Length: 9.62 cm LV PW Systolic: 0.87 cm LV FS: 22.6 % LVEDV Rasmussen's:139.54 ml LVESV Rasmussen's:45.73 ml LVEDVI: 73 ml/m^2 LVEF Rasmussen's: 67.2 % LVESVI: 24 ml/m^2 LVOT Diameter: 2.02 cm LVEF: 49.1 % Aorta Ascending Aorta: 2.93 cm Doppler/Quantitative Measurements Mitral Valve MV Peak E-Wave: 1.11 m/s MV Peak A-Wave: 1.02 m/s E/A Ratio: 1.08 Peak Gradient: 4.92 mmHg Deceleration Time: 179.3 msec MV Ernesto. Peak: Aortic Valve Peak Velocity: 1.28 m/s Mean Velocity: 0.9 m/s Peak Gradient: 6.56 mmHg Mean Gradient: 3.71 mmHg AV Area (continuity): 2.86 cm^2 AV VTI: 28.65 cm AV DVI: 0.89 LVOT Peak Velocity: 1.17 m/s Peak Gradient: 5.53 mmHg Mean Velocity: 0.78 m/s Mean Gradient: 2.88 mmHg LVOT Diameter: 2.02 cm LVOT VTI: 25.54 cm LVOT Area: 3.2 cm^2 LVOT SV:81.81 ml LVOT CO: 6.79 l/min LVOT CI: 3.57 l/min/m^2 Performing Organization Address City/State/Zipcode Phone Number [facility] Urine Ethyl Glucuronide (12/17/2018 10:47 AM CDT) Scan Result [facility] Specimen Urine Narrative Performed At Performing Organization Address City/State/Zipcode Phone Number [facility] [id number] [facility] [place] Drug screen, urine, comprehensive (12/17/2018 10:47 AM CDT) Specimen Urine Narrative Performed At MR abdomen without & with IV contrast (12/17/2018 9:40 AM CDT) Specimen Narrative Performed At Addendum Begins [facility] REPORT STATUS:A Machine Umbrella Tipper error in the third 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 It should read: Questionable small nonocclusive thrombus in the high SUPERIOR mesenteric vein. Signed: Roe Solorzano MD Report Verified Date/Time:12/18/2018 19:09:20 Reading Location: [address] Body Reading Room Addendum Ends FINAL REPORT TECHNIQUE: MRI of the abdomen WITHOUT and WITH intravenous contrast. INDICATION: 53-year-old man with cirrhosis and hematemesis. COMPARISON: Abdomen ultrasound 12/16/2018. FINDINGS: LOWER THORAX: Small bilateral pleural effusions. Adjacent consolidative opacities in both lung bases, likely atelectasis. LIVER: Cirrhotic morphology of the liver. 1.3 x 1.3 cm arterially enhancing lesion in the anterior hepatic dome with washout and capsule (axial postcontrast arterial series image 105). Few additional subcentimeter arterially enhancing foci in segments four and five without corresponding T2 signal abnormality, washout, or capsule BILIARY: Gallbladder is unremarkable. No biliary ductal dilatation or filling defect. SPLEEN: The spleen is enlarged, measuring 17.2 cm in the craniocaudal dimension. PANCREAS: No focal masses or ductal dilatation. ADRENALS: No adrenal nodules. KIDNEYS/URETERS: No hydronephrosis or solid mass lesions. PERITONEUM/RETROPERITONEUM: Small volume ascites. LYMPH NODES: No lymphadenopathy. VESSELS: Nonocclusive thrombus in the main portal vein, which measures 1.8 cm in diameter. Questionable small nonocclusive thrombus in the high superior mesenteric vein. Recanalized umbilical vein. Esophageal varices. Patent hepatic veins. Abdominal aorta is normal in caliber. GI TRACT: No distention or wall thickening. BONES AND SOFT TISSUES: Unremarkable. IMPRESSION: Cirrhosis with portal hypertension and small volume ascites. 1.3 cm lesion in the hepatic dome, consistent with hepatocellular carcinoma. Additional subcentimeter arterially enhancing foci in the liver are indeterminate. Nonocclusive thrombus in the main portal vein. Questionable small nonocclusive thrombus in the high-speed mesenteric vein. RECOMMENDATION: Follow-up abdomen MRI with and without intravenous contrast (liver protocol) may be obtained in 3 months to reassess above findings. Signed: Roe Solorzano MD Report Verified Date/Time:12/17/2018 10:57:37 Reading Location: [facility] C013Y CT Body Reading Room Procedure Note Interface, External Ris In - 12/18/2018 7:11 PM CDT Addendum Begins REPORT STATUS:A Machine Umbrella Tipper error in the third 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 It should read: Questionable small nonocclusive thrombus in the high SUPERIOR mesenteric vein. Signed: Roe Solorzano MD Report Verified Date/Time: 12/18/2018 19:09:20 Reading Location: [facility] C013Y CT Body Reading Room Addendum Ends FINAL REPORT TECHNIQUE: MRI of the abdomen WITHOUT and WITH intravenous contrast. INDICATION: 53-year-old man with cirrhosis and hematemesis. COMPARISON: Abdomen ultrasound 12/16/2018. FINDINGS: LOWER THORAX: Small bilateral pleural effusions. Adjacent consolidative opacities in both lung bases, likely atelectasis. LIVER: Cirrhotic morphology of the liver. 1.3 x 1.3 cm arterially enhancing lesion in the anterior hepatic dome with washout and capsule (axial postcontrast arterial series image 105). Few additional subcentimeter arterially enhancing foci in segments four and five without corresponding T2 signal abnormality, washout, or capsule BILIARY: Gallbladder is unremarkable. No biliary ductal dilatation or filling defect. SPLEEN: The spleen is enlarged, measuring 17.2 cm in the craniocaudal dimension. PANCREAS: No focal masses or ductal dilatation. ADRENALS: No adrenal nodules. KIDNEYS/URETERS: No hydronephrosis or solid mass lesions. PERITONEUM/RETROPERITONEUM: Small volume ascites. LYMPH NODES: No lymphadenopathy. VESSELS: Nonocclusive thrombus in the main portal vein, which measures 1.8 cm in diameter. Questionable small nonocclusive thrombus in the high superior mesenteric vein. Recanalized umbilical vein. Esophageal varices. Patent hepatic veins. Abdominal aorta is normal in caliber. GI TRACT: No distention or wall thickening. BONES AND SOFT TISSUES: Unremarkable. IMPRESSION: Cirrhosis with portal hypertension and small volume ascites. 1.3 cm lesion in the hepatic dome, consistent with hepatocellular carcinoma. Additional subcentimeter arterially enhancing foci in the liver are indeterminate. Nonocclusive thrombus in the main portal vein. Questionable small nonocclusive thrombus in the high-speed mesenteric vein. RECOMMENDATION: Follow-up abdomen MRI with and without intravenous contrast (liver protocol) may be obtained in 3 months to reassess above findings. Signed: Roe Solorzano MD Report Verified Date/Time: 12/17/2018 10:57:37 Reading Location: [facility] C013Y CT Body Reading Room Performing Organization Address City/State/[facility] Cent[facility] Phone Number GE RIS Hepatitis A antibody, IgG (12/16/2018 8:18 PM CDT) Hep A IgG Reactive (A) Nonreactive [facility] Specimen Blood Performing Organization Address City/[facility] Cent[facility]ode Phone Number [address] [address] [phone] CENTER Anti-Mitochondrial Ab, reflex to titer (12/16/2018 8:18 PM CDT) Scan Result [facility] Specimen Blood Narrative Performed At Performing Organization Address City/State/[facility] Centercode Phone Number [place] [address] [address] [place] [address] Iron, TIBC, % sat. (without ferritin) (12/16/2018 8:18 PM CDT) Iron 56.0 40.0 - 160.0 ug/dL [facility] TIBC 360 250 - 450 ug/dL [facility] Iron % Saturation 16 (L) 20 - 55 % [facility] Specimen Blood Performing Organization Address [facility] [place] [facility] Centercode Phone Number [address] [address] CENTER Hepatitis C antibody (12/16/2018 8:18 PM CDT) Hepatitis C Ab Reactive (A) Nonreactive [facility] Specimen Blood Performing Organization Address [facility] Cent[facility]ode Phone Number [address] [address] CENTER Actin (Smooth Muscle) Antibody, IgG (12/16/2018 8:18 PM CDT) Anti-Smooth Muscle Ab 24 (H) See Note: U [facility] Comment: [facility]POR[facility] Reference Range: <20 NEGATIVE > OR=20 POSITIVE Antibodies recognizing actin are the main component of smooth muscle antibodies associated with autoimmune liver disease. Actin antibodies are found in approximately 75% of patients with autoimmune hepatitis (AIH) type 1, approximately 65% of patients with autoimmune cholangitis, approximately 30% of patients with primary biliary cirrhosis, and approximately 2% of healthy people. High values are closely correlated with AIH type 1. Specimen Blood Narrative Performed At Performing Lab [facility] [address] [address] Gokul Moore MD, PhD, COSMO Performing Organization Address [facility] Phone [place] [address] [address] [place] [address] [id number] (12/16/2018 8:18 PM CDT) A-1 Antitrypsin 137.60Comment: Specimen 90.00 - 200.00 mg/dL [facility] slightly hemolyzed [facility] Specimen Blood Performing Organization Address [facility] Centercode Phone Number [address] [address] [phone] CENTER [place] Titer & Pattern (12/16/2018 8:18 PM CDT) [place] Titer 1:160 [facility] [place] Pattern Speckled [facility] Specimen Blood Performing Organization Address [facility]/Zipcode Phone Number [address] [address] CENTER Hemoglobin and hematocrit (12/16/2018 8:18 PM CDT)Only the most recent of6 resultswithin the time period is included. Hemoglobin 9.2 (L) 13.7 - 17.5 GM/DL [facility] Hematocrit 32.6 (L) 40.1 - 51.0 % [facility] Specimen Blood Performing Organization Address City/[facility]/Zipcode Phone Number [address] [address] [phone] [facility] Alpha fetoprotein (AFP), tumor marker (12/16/2018 8:18 PM CDT) Alpha-Fetoprotein 5.3 <10.0 ng/mL [facility] Specimen Blood Performing Organization Address [facility]/Zipcode Phone Number [address] [address] [facility] Hepatitis B core antibody, total (12/16/2018 8:18 PM CDT) Hep B Core Total Ab NON-REACTIVE Nonreactive [facility] Specimen Blood Performing Organization Address [facility] Centercode Phone Number [address] [address] [facility] Hepatitis C genotype (12/16/2018 8:18 PM CDT) HCV Genotype, LiPA 3 [facility] Comment: INC[facility]PORATED The method used in this test is RT-PCR and reverse hybridization (Line Probe) of the 5' UTR and core region of the HCV genome. The analytical performance characteristics of this assay have been determined by [facility]. The modifications have not been cleared or approved by the FDA. This assay has been validated pursuant to the CLIA regulations and is used for clinical purposes. For additional information, please refer to http://education.Catal[employer].ShopEat /faq/HCVGenotyping (This link id being provided for informational/ educational purposes only.) Specimen Blood Narrative Performed At Performing Lab [facility] *QDID [facility] [address] [place] [address] Aleah Roberts MD Performing Organization Address City/State/Zipcode Phone Number [facility], [place] [address] [address] [facility] Hepatitis C PCR, Quantitative (12/16/2018 8:18 PM CDT) HCV PCR, Quantitative 821,000 (H) <15 IU/mL [facility] Specimen Blood Narrative Performed At This test uses a Real-Time Polymerase Chain [facility] Reaction (RT-PCR) methodology and was performed using [employer] Ampliprep/MAJOR TaqMan HCV test kit version 2.0 ([employer] Reportable range for this assay is 15 - 100,000,000 IU per mL (1.18 - 8.00 Log IU/mL). Performing Organization Address [facility] Centercode Phone Number [address] [address] [phone] CENTER Anti-Nuclear Antibody ([place]) (12/16/2018 8:18 PM CDT) [place] Positive (A) Negative [facility] Specimen Blood Narrative Performed At Test performed by IFA method. [facility] Performing Organization Address [facility] [place] [facility] Centercode Phone Number [address] [address] CENTER Ferritin (12/16/2018 8:18 PM CDT) Ferritin 17 5 - 275 ng/mL [facility] Specimen Blood Performing Organization Address [facility]/Zipcode Phone Number [address] [address] [phone] CENTER US abdominal with doppler (12/16/2018 3:45 PM CDT) Specimen Narrative Performed At FINAL REPORT [facility] TECHNIQUE: Grayscale ultrasound of the abdomen with color Doppler and spectral Doppler ultrasound of the portal/hepatic vasculature. INDICATION: liver cirrhosis, variceal bleed, please also do portal vein doppler, ? portal vein thrombosis. COMPARISON: None. FINDINGS: LIVER: Smooth liver contour. No focal liver lesions. HEPATIC VASCULATURE: Portal veins are patent with normal waveform and directionality. However, left portal vein was difficult to visualize. Flow velocity in the main portal vein is within normal limits. The hepatic veins and confluence are patent. The main portal vein measures 1.1 cm. The hepatic arterial resistive indices are increased and measure 0.83 in the proper hepatic artery and 0.76 in the left hepatic artery. The right hepatic artery resistive index is 0.68. BILIARY: Gallbladder: No gallstones or sludge. The mild gallbladder wall thickening is likely due to the adjacent liver disease. No distention. Negative sonographic Gibbs sign. Common bile duct measures 0.5 cm, within normal limits. No intrahepatic biliary ductal dilatation. PANCREAS: Not well visualized due to overlying bowel gas. SPLEEN: The spleen is enlarged at 16.4 cm PERITONEUM: No free fluid. KIDNEYS: Normal in size bilaterally. No hydronephrosis. No sonographically evident solid mass lesion. MIDLINE VASCULATURE: The visualized inferior vena cava is patent. The maximum visualized aortic diameter is 2.5 cm.Splenic artery and vein are patent. IMPRESSION: 1.The visualized portal vasculature is patent. The main portal vein measures up to 1.1 cm. 2.There are increased hepatic arterial resistive indices, possibly due to hepatic dysfunction. 3.Cirrhosis with sequelae of portal hypertension including splenomegaly and small volume ascites. Signed: Toni Gorman MD Report Verified Date/Time:12/16/2018 18:22:50 Reading Location: [address] Ultrasound Reading Room Procedure Note Interface, External Ris In - 12/16/2018 6:25 PM CDT FINAL REPORT TECHNIQUE: Grayscale ultrasound of the abdomen with color Doppler and spectral Doppler ultrasound of the portal/hepatic vasculature. INDICATION: liver cirrhosis, variceal bleed, please also do portal vein doppler, ? portal vein thrombosis. COMPARISON: None. FINDINGS: LIVER: Smooth liver contour. No focal liver lesions. HEPATIC VASCULATURE: Portal veins are patent with normal waveform and directionality. However, left portal vein was difficult to visualize. Flow velocity in the main portal vein is within normal limits. The hepatic veins and confluence are patent. The main portal vein measures 1.1 cm. The hepatic arterial resistive indices are increased and measure 0.83 in the proper hepatic artery and 0.76 in the left hepatic artery. The right hepatic artery resistive index is 0.68. BILIARY: Gallbladder: No gallstones or sludge. The mild gallbladder wall thickening is likely due to the adjacent liver disease. No distention. Negative sonographic Gibbs sign. Common bile duct measures 0.5 cm, within normal limits. No intrahepatic biliary ductal dilatation. PANCREAS: Not well visualized due to overlying bowel gas. SPLEEN: The spleen is enlarged at 16.4 cm PERITONEUM: No free fluid. KIDNEYS: Normal in size bilaterally. No hydronephrosis. No sonographically evident solid mass lesion. MIDLINE VASCULATURE: The visualized inferior vena cava is patent. The maximum visualized aortic diameter is 2.5 cm. Splenic artery and vein are patent. IMPRESSION: 1.The visualized portal vasculature is patent. The main portal vein measures up to 1.1 cm. 2.There are increased hepatic arterial resistive indices, possibly due to hepatic dysfunction. 3.Cirrhosis with sequelae of portal hypertension including splenomegaly and small volume ascites. Signed: Toni Gorman MD Report Verified Date/Time: 12/16/2018 18:22:50 Reading Location: [facility] [id number] Ultrasound Reading Room Performing Organization Address City/State/Zipcode Phone Number [facility] XR chest 1 view portable / bedside (12/15/2018 10:48 PM CDT)Only the most recent of2 resultswithin the time period is included. Specimen Narrative Performed At FINAL REPORT [facility] Chest one view. Clinical history: NG tube placement Comparison: Chest radiograph 12/15/2018, 6:06 PM Technique: A single frontal view of the chest was obtained. Findings/impression: There is an endotracheal tube in satisfactory position. There is a feeding tube with tip in the distal esophagus and requires advancement. The cardiomediastinal contours are stable. There are low lung volumes. There is a retrocardiac opacity which may represent atelectasis and/or pneumonia. There is no pleural effusion or pneumothorax. There is mild gaseous distention of the stomach. Signed: Elmer Haque MD Report Verified Date/Time:12/15/2018 23:07:08 Reading Location: [facility] C013Y CT Body Reading Room Procedure Note Interface, External Ris In - 12/15/2018 11:09 PM CDT FINAL REPORT Chest one view. Clinical history: NG tube placement Comparison: Chest radiograph 12/15/2018, 6:06 PM Technique: A single frontal view of the chest was obtained. Findings/impression: There is an endotracheal tube in satisfactory position. There is a feeding tube with tip in the distal esophagus and requires advancement. The cardiomediastinal contours are stable. There are low lung volumes. There is a retrocardiac opacity which may represent atelectasis and/or pneumonia. There is no pleural effusion or pneumothorax. There is mild gaseous distention of the stomach. Signed: Elmer Haque MD Report Verified Date/Time: 12/15/2018 23:07:08 Reading Location: [facility] C013Y CT Body Reading Room Performing Organization Address [facility] Phone Number RIS REPORT OF PROCEDURE - ENDOSCOPY URL (12/15/2018 4:53 PM CDT) Narrative Performed At [facility], manual (12/15/2018 2:37 PM CDT) ABO Grouping O [facility] Rh Factor POS [facility] Specimen Blood Performing Organization Address [facility] Phone Number [address] [address] Lactic acid, venous (12/15/2018 2:09 PM CDT) Lactate, Venous 1.4 0.5 - 2.2 mmol/L [facility] Specimen Blood Performing Organization Address [facility] Cent[facility]ode Phone Number [facility] [address] [place] [address] CENTER Fibrinogen (12/15/2018 2:08 PM CDT) Fibrinogen 164 (L) 225 - 434 mg/dl [facility] Specimen Blood Performing Organization Address City/State/Zipcode Phone Number [facility] [address] [place] [address] CENTER after 01/17/2018 Insurance Payer Benefit Plan / Group Subscriber ID Type Phone Address MEDICAID - MEDICAID MEDICAID [employer] xxxxxxxxx Medicaid [employer] CARE Non-Contracted [place] MED[place] MEDICAID [place] xxxxxxxxx (Home) [place] [address] Advance Directives For more information, please contact:[facility] [place], [place] [phone] Code Status Date Activated Date Inactivated Comments Full Code 12/18/2018 3:02 PM 01/02/2019 1:38 PM This code status was determined by: Patient Full Code 12/15/2018 1:20 PM 12/17/2018 12:27 PM This code status was determined by: Patient
--- OUTSIDE RECORDS SUMMARY | 2019-01-18 18:57 | XMS REPORT ---
:1965 [facility] Address [address] [place] [address] Care Team Providers Name Role Phone JANNET KASPER Unavailable Unavailable Problems This patient has no known problems. Allergies, Adverse Reactions, Alerts This patient has no known allergies or adverse reactions. Medications This patient has no known medications. Results Test Description Test Time Test Comments Text Results Atomic Results Result Comments POCT-GLUCOSE METER 2019-01-02 08:02:00 Test Item Value Reference Range Comments POC-GLUCOSE METER (BEAKER) (test 187 mg/dL 70-[address] [facility] [address] [facility] [address] [id number] 04:17:00 Test Item Value Reference Range Comments PHOSPHORUS (BEAKER) (test rlot=823) 2.9 mg/dL 2.3-4.7 [id number] 04:17:00 Test Item Value Reference Range Comments MAGNESIUM (BEAKER) (test eblk=727) 1.9 mg/dL 1.6-2.6 COMPREHENSIVE METABOLIC [id number] 04:17:00 Test Item Value Reference Range Comments TOTAL PROTEIN (BEAKER) 7.6 gm/dL 6.0-8.3 (test fvji=714) ALBUMIN (BEAKER) (test 3.3 g/dL 3.5-5.0 zdsc=5108) ALKALINE PHOSPHATASE 138 U/L 40-150 (BEAKER) (test regr=382) BILIRUBIN TOTAL (BEAKER) 1.0 mg/dL 0.2-1.2 (test qtdf=217) SODIUM (BEAKER) (test 136 meq/L 136-145 umyg=564) POTASSIUM (BEAKER) (test 4.0 meq/L 3.5-5.1 fcgj=758) CHLORIDE (BEAKER) (test 105 meq/L 98-107 seyc=421) CO2 (BEAKER) (test 22 meq/L 22-29 cacw=569) BLOOD UREA NITROGEN 14 mg/dL 7-21 (BEAKER) (test qvou=016) CREATININE (BEAKER) (test 1.11 mg/dL 0.57-1.25 yfnu=761) GLUCOSE RANDOM (BEAKER) 173 mg/dL 70-105 (test iipd=638) CALCIUM (BEAKER) (test 9.1 mg/dL 8.4-10.2 hwar=251) AST (SGOT) (BEAKER) (test 89 U/L 5-34 fdlg=622) ALT (SGPT) (BEAKER) (test 41 U/L 6-55 hndq=950) EGFR (BEAKER) (test 69 mL/min/1.73 sq m ESTIMATED GFR IS NOT dtxb=9913) ACCURATE CREATININE CLEARANCE IN PREDICTING GLOMERULAR FILTRATION RATE. ESTIMATED GFR IS NOT APPLICABLE FOR DIALYSIS PATIENTS. CBC W/PLT COUNT & AUTO [id number] 03:43:00 Test Item Value Reference Range Comments WHITE BLOOD CELL COUNT (BEAKER) (test rcsx=724) 9.1 K/ L 3.5-10.5 RED BLOOD CELL COUNT (BEAKER) (test ebbw=815) 4.66 M/ L 4.63-6.08 HEMOGLOBIN (BEAKER) (test fdzr=573) 9.1 GM/DL 13.7-17.5 HEMATOCRIT (BEAKER) (test ogso=172) 31.7 % 40.1-51.0 MEAN CORPUSCULAR VOLUME (BEAKER) (test kuvc=445) 68.0 fL 79.0-92.2 MEAN CORPUSCULAR HEMOGLOBIN (BEAKER) (test 19.5 pg 25.7-32.2 iroe=692) MEAN CORPUSCULAR HEMOGLOBIN CONC (BEAKER) (test 28.7 GM/DL 32.3-36.5 zcxy=416) RED CELL DISTRIBUTION WIDTH (BEAKER) (test 20.4 % 11.6-14.4 acfs=968) PLATELET COUNT (BEAKER) (test ghmq=664) 174 K/CU MM 150-450 MEAN PLATELET VOLUME (BEAKER) (test pfja=499) 10.6 fL 9.4-12.4 NUCLEATED RED BLOOD CELLS (BEAKER) (test 0 /100 WBC 0-0 gqad=940) NEUTROPHILS RELATIVE PERCENT (BEAKER) (test 74 % ogcn=292) LYMPHOCYTES RELATIVE PERCENT (BEAKER) (test 16 % ecxt=630) MONOCYTES RELATIVE PERCENT (BEAKER) (test 7 % nczh=293) EOSINOPHILS RELATIVE PERCENT (BEAKER) (test 2 % piyl=635) BASOPHILS RELATIVE PERCENT (BEAKER) (test 1 % xodv=201) NEUTROPHILS ABSOLUTE COUNT (BEAKER) (test 6.70 K/ L 1.78-5.38 crvq=933) LYMPHOCYTES ABSOLUTE COUNT (BEAKER) (test 1.42 K/ L 1.32-3.57 pkjv=647) MONOCYTES ABSOLUTE COUNT (BEAKER) (test 0.61 K/ L 0.30-0.82 fohg=252) EOSINOPHILS ABSOLUTE COUNT (BEAKER) (test 0.20 K/ L 0.04-0.54 ijim=927) BASOPHILS ABSOLUTE COUNT (BEAKER) (test 0.10 K/ L 0.01-0.08 nxdp=300) IMMATURE GRANULOCYTES-RELATIVE PERCENT (BEAKER) 0 % 0-1 (test jzuj=5291) POCT-GLUCOSE [id number] 23:33:00 Test Item Value Reference Range Comments POC-GLUCOSE METER (BEAKER) 230 mg/dL 70-[address] [facility] [address] [facility] (test rsgr=6264) [facility] [address] HOPE [id number] 17:21:00Reason for exam:->recurrent variceal bleedFINAL REPORT Procedure: TIPS, 01/01/2019 HISTORY: Recurrent upper GI bleeding,portal hypertension Anesthesia: General Approach: Right internal jugular vein, left portal vein Modality: Ultrasound and fluoroscopy, fluoroscopy time: 32.8 minutes, total dose: 1290 mGy, reference airkerma method After obtaining written informed consent, this [...] right portal vein. The right portal vein couldnot be accessed. Using real-time ultrasound guidance, left portal vein was then accessed percutaneously and a microcatheter positioned in the portal vein. Portal venography was then performed disclosing location of the right, left and main portal veins. The needle system was then advanced into the right portal vein with subsequent advancement of the guidewire into the main portal vein. Pressures wereobtained disclosing portal venous pressure of 21, right atrial pressure of 5 mmHg. An 8 cm in lengthViatorr stent graft was then placed from the right portal vein to the hepatic veins and dilated to 9mm in diameter. Post stent placement pressures discloses a right atrial pressure of 9 mm in the portal vein pressure of 14 mm with a gradient of 5 mmHg. Angiography of the TIPS discloses satisfactory positioning and flow dynamics with some opacification of the right and left branches. CONCLUSION: Placement of TIPS.. Signed: Sola Camarillo [facility] Verified Date/Time: 01/01/2019 17:21:51 Reading Location: [place] [id number] Angio Body Reading Room POCT-GLUCOSE [id number] 16:25:00 Test Item Value Reference Range Comments POC-GLUCOSE METER (BEAKER) 182 mg/dL 70-110 TESTED AT [address] (test vkdy=0099) [facility] [address] POCT-GLUCOSE [id number] 14:02:00 Test Item Value Reference Range Comments POC-GLUCOSE METER (BEAKER) 146 mg/dL 70-110 TESTED AT [address] (test eeep=5828) [facility] [address] POCT-GLUCOSE [id number] 07:49:00 Test Item Value Reference Range Comments POC-GLUCOSE METER (BEAKER) 143 mg/dL 70-110 TESTED AT [address] (test lmyw=4437) [facility] [address] CALCIUM, [id number] 06:48:00 Test Item Value Reference Range Comments CALCIUM IONIZED (BANNER) (test jrcy=602) 0.81 mmol/L 1.12-1.27 PH, BLOOD (BANNER) (test omdm=7264) 7.50 CBC W/PLT COUNT & AUTO [id number] 06:41:00 Test Item Value Reference Range Comments WHITE BLOOD CELL COUNT 4.0 K/ L 3.5-10.5 (BEAKER) (test vqtb=873) RED BLOOD CELL COUNT (BEAKER) 4.14 M/ L 4.63-6.08 (test ygvl=876) HEMOGLOBIN (BEAKER) (test 8.2 GM/DL 13.7-17.5 qdva=640) HEMATOCRIT (BEAKER) (test 27.7 % 40.1-51.0 yqqb=908) MEAN CORPUSCULAR VOLUME 66.9 fL 79.0-92.2 (BEAKER) (test qcxg=548) MEAN CORPUSCULAR HEMOGLOBIN 19.8 pg 25.7-32.2 (BEAKER) (test boxc=702) MEAN CORPUSCULAR HEMOGLOBIN 29.6 GM/DL 32.3-36.5 CONC (BEAKER) (test xvrd=770) RED CELL DISTRIBUTION WIDTH 20.3 % 11.6-14.4 (BEAKER) (test nika=796) PLATELET COUNT (BEAKER) (test 120 K/CU MM 150-450 lixa=514) MEAN PLATELET VOLUME (BEAKER) fL 9.4-12.4 Unable to report due to (test aysz=032) abnormal Platelet population distribution. NUCLEATED RED BLOOD CELLS 0 /100 WBC 0-0 (BEAKER) (test roar=296) NEUTROPHILS RELATIVE PERCENT 58 % (BEAKER) (test hzrb=152) LYMPHOCYTES RELATIVE PERCENT 25 % (BEAKER) (test wqcv=284) MONOCYTES RELATIVE PERCENT 8 % (BEAKER) (test myhy=457) EOSINOPHILS RELATIVE PERCENT 7 % (BEAKER) (test zssd=450) BASOPHILS RELATIVE PERCENT 1 % (BEAKER) (test jwjp=388) NEUTROPHILS ABSOLUTE COUNT 2.36 K/ L 1.78-5.38 (BEAKER) (test ftsi=737) LYMPHOCYTES ABSOLUTE COUNT 1.01 K/ L 1.32-3.57 (BEAKER) (test tnxx=068) MONOCYTES ABSOLUTE COUNT 0.33 K/ L 0.30-0.82 (BEAKER) (test plpg=506) EOSINOPHILS ABSOLUTE COUNT 0.29 K/ L 0.04-0.54 (BEAKER) (test supw=176) BASOPHILS ABSOLUTE COUNT 0.04 K/ L 0.01-0.08 (BEAKER) (test dbzz=836) IMMATURE GRANULOCYTES-RELATIVE 0 % 0-1 PERCENT (BEAKER) (test chje=7280) [id number] 06:02:00 Test Item Value Reference Range Comments PHOSPHORUS (BEAKER) (test orst=318) 3.6 mg/dL 2.3-4.7 [id number] 06:02:00 Test Item Value Reference Range Comments MAGNESIUM (BEAKER) (test flxn=585) 1.7 mg/dL 1.6-2.6 COMPREHENSIVE METABOLIC [id number] 06:02:00 Test Item Value Reference Range Comments TOTAL PROTEIN (BEAKER) 7.2 gm/dL 6.0-8.3 (test lkww=182) ALBUMIN (BEAKER) (test 3.2 g/dL 3.5-5.0 vlla=7554) ALKALINE PHOSPHATASE 157 U/L 40-150 (BEAKER) (test xtvs=957) BILIRUBIN TOTAL (BEAKER) 0.9 mg/dL 0.2-1.2 (test atxi=528) SODIUM (BEAKER) (test 137 meq/L 136-145 wibm=224) POTASSIUM (BEAKER) (test 3.5 meq/L 3.5-5.1 ntyi=124) CHLORIDE (BEAKER) (test 102 meq/L 98-107 bdeq=891) CO2 (BEAKER) (test 30 meq/L 22-29 tbdg=431) BLOOD UREA NITROGEN 18 mg/dL 7-21 (BEAKER) (test altj=481) CREATININE (BEAKER) (test 1.14 mg/dL 0.57-1.25 ofnq=286) GLUCOSE RANDOM (BEAKER) 130 mg/dL 70-105 (test esnf=469) CALCIUM (BEAKER) (test 8.6 mg/dL 8.4-10.2 mifa=554) AST (SGOT) (BEAKER) (test 53 U/L 5-34 gmzs=386) ALT (SGPT) (BEAKER) (test 25 U/L 6-55 vnlz=599) EGFR (BEAKER) (test 67 mL/min/1.73 sq m ESTIMATED GFR IS NOT lcyo=2214) ACCURATE CREATININE CLEARANCE IN PREDICTING GLOMERULAR FILTRATION RATE. ESTIMATED GFR IS NOT APPLICABLE FOR DIALYSIS PATIENTS. POCT-GLUCOSE [id number] 23:13:00 Test Item Value Reference Range Comments POC-GLUCOSE METER (BEAKER) 332 mg/dL 70-110 Notified JADA NIX/TESTED AT [facility] (test jnub=3949) [address] [facility] [address] POCT-GLUCOSE [id number] 15:30:00 Test Item Value Reference Range Comments POC-GLUCOSE METER (BEAKER) 191 mg/dL 70-[address] [facility] [address] [facility] (test vjya=7572) [facility] [address] CALCIUM, [id number] 06:07:00 Test Item Value Reference Range Comments CALCIUM IONIZED (BEAKER) (test vpzr=054) 0.93 mmol/L 1.12-1.27 PH, BLOOD (BEAKER) (test vlex=6156) 7.53 [id number] 06:06:00 Test Item Value Reference Range Comments PHOSPHORUS (BEAKER) (test gbkh=869) 3.1 mg/dL 2.3-4.7 [id number] 06:06:00 Test Item Value Reference Range Comments MAGNESIUM (BEAKER) (test gjyj=196) 1.8 mg/dL 1.6-2.6 BASIC METABOLIC [id number] 06:06:00 Test Item Value Reference Range Comments SODIUM (BEAKER) (test 138 meq/L 136-145 jjjl=577) POTASSIUM (BEAKER) (test 3.8 meq/L 3.5-5.1 ybtf=958) CHLORIDE (BEAKER) (test 104 meq/L 98-107 mmhx=001) CO2 (BEAKER) (test 27 meq/L 22-29 hqzv=110) BLOOD UREA NITROGEN 19 mg/dL 7-21 (BEAKER) (test umbu=585) CREATININE (BEAKER) (test 1.26 mg/dL 0.57-1.25 sfwk=735) GLUCOSE RANDOM (BEAKER) 191 mg/dL 70-105 (test ihat=246) CALCIUM (BEAKER) (test 8.9 mg/dL 8.4-10.2 lfsc=624) EGFR (BEAKER) (test 59 mL/min/1.73 sq m ESTIMATED GFR IS NOT nbzx=7153) ACCURATE CREATININE CLEARANCE IN PREDICTING GLOMERULAR FILTRATION RATE. ESTIMATED GFR IS NOT APPLICABLE FOR DIALYSIS PATIENTS. B-TYPE NATRIURETIC FACTOR (BNP)2018-12-31 05:58:00 Test Item Value Reference Range Comments B-TYPE NATRIURETIC PEPTIDE (BEAKER) (test mdpw=298) 99 pg/mL 0-100 CBC W/PLT COUNT & AUTO [id number] 05:35:00 Test Item Value Reference Range Comments WHITE BLOOD CELL COUNT 5.2 K/ L 3.5-10.5 (BEAKER) (test hhvy=713) RED BLOOD CELL COUNT (BEAKER) 4.00 M/ L 4.63-6.08 (test zmzy=846) HEMOGLOBIN (BEAKER) (test 7.7 GM/DL 13.7-17.5 pmdm=744) HEMATOCRIT (BEAKER) (test 27.2 % 40.1-51.0 pakx=185) MEAN CORPUSCULAR VOLUME 68.0 fL 79.0-92.2 (BEAKER) (test khns=866) MEAN CORPUSCULAR HEMOGLOBIN 19.3 pg 25.7-32.2 (BEAKER) (test fdzw=081) MEAN CORPUSCULAR HEMOGLOBIN 28.3 GM/DL 32.3-36.5 CONC (BEAKER) (test ufbn=267) RED CELL DISTRIBUTION WIDTH 20.3 % 11.6-14.4 (BEAKER) (test ksrr=067) PLATELET COUNT (BEAKER) (test 107 K/CU MM 150-450 mgys=438) MEAN PLATELET VOLUME (BEAKER) fL 9.4-12.4 Unable to report due to (test xwyj=914) abnormal Platelet population distribution. NUCLEATED RED BLOOD CELLS 0 /100 WBC 0-0 (BEAKER) (test zrws=842) NEUTROPHILS RELATIVE PERCENT 67 % (BEAKER) (test nrms=138) LYMPHOCYTES RELATIVE PERCENT 19 % (BEAKER) (test gkoa=773) MONOCYTES RELATIVE PERCENT 8 % (BEAKER) (test zyhl=813) EOSINOPHILS RELATIVE PERCENT 5 % (BEAKER) (test hiil=012) BASOPHILS RELATIVE PERCENT 1 % (BEAKER) (test vhek=465) NEUTROPHILS ABSOLUTE COUNT 3.47 K/ L 1.78-5.38 (BEAKER) (test msuv=789) LYMPHOCYTES ABSOLUTE COUNT 0.99 K/ L 1.32-3.57 (BEAKER) (test czwe=458) MONOCYTES ABSOLUTE COUNT 0.40 K/ L 0.30-0.82 (BEAKER) (test hbpt=571) EOSINOPHILS ABSOLUTE COUNT 0.24 K/ L 0.04-0.54 (BEAKER) (test bvwz=308) BASOPHILS ABSOLUTE COUNT 0.06 K/ L 0.01-0.08 (BEAKER) (test nbmc=915) IMMATURE GRANULOCYTES-RELATIVE 0 % 0-1 PERCENT (BEAKER) (test nxuf=5317) POCT-GLUCOSE [id number] 21:49:00 Test Item Value Reference Range Comments POC-GLUCOSE METER (BEAKER) 291 mg/dL 70-[address] [facility] [address] [facility] (test ppwp=9926) [facility] [address] POCT-GLUCOSE [id number] 17:31:00 Test Item Value Reference Range Comments POC-GLUCOSE METER (BEAKER) 247 mg/dL 70-110 TESTED AT [address] (test ayxm=2500) [facility] [address] BONE AND/OR JOINT IMAGING, WHOLE [id number] 16:47:00FINAL REPORT PROCEDURE: BONE SCAN, WHOLE BODY CPT CODE: 95896 INDICATION: Hepatocellular carcinoma, preoperative evaluation for liver [...] IMPRESSION: 1. No evidence of bony neoplastic disease.2. Left rib findings suggest remote traumatic etiology.3. Mild degenerative disease and the spineand peripheral joints.4. Left mandibular periodontal abnormality. Images for comparison/correlationwere recent mandibular radiograph , abdominal MR I, and chest CT. Signed: Calderon Gordillo [facility] Verified Date/ Time: 12/30/2018 16:47:37 Reading Location: [address] Reading Room CT, CHEST, WITHOUT [id number] 12:26:00FINAL REPORT CT Chest without contrast History: Hepatocellular [...] size, and/or use of iterative reconstruction technique. Findings:No mediastinal lymphadenopathy. No definitehilar enlargement. Normal size heart. No pericardial effusion. [...] disease in the chest. Signed: Elmer Perry MDR[facility] Verified Date/Time: 12/30/2018 12:26:39 Reading Location: [facility] Diagnostic Imaging Reading Room - [place] [address] POCT-GLUCOSE [id number] 11:39:00 Test Item Value Reference Range Comments POC-GLUCOSE METER (BEAKER) 250 mg/dL 70-110 TESTED AT [address] (test bsyx=2556) [facility] [address] POCT-GLUCOSE [id number] 07:43:00 Test Item Value Reference Range Comments POC-GLUCOSE METER (BEAKER) 228 mg/dL 70-110 TESTED AT [address] (test boxx=7987) [facility] [address] CALCIUM, [id number] 07:32:00 Test Item Value Reference Range Comments CALCIUM IONIZED (BEAKER) (test unyk=866) 0.97 mmol/L 1.12-1.27 PH, BLOOD (BEAKER) (test wxfs=8065) 7.46 [id number] 06:46:00 Test Item Value Reference Range Comments PHOSPHORUS (BEAKER) (test udid=293) 3.5 mg/dL 2.3-4.7 [id number] 06:46:00 Test Item Value Reference Range Comments MAGNESIUM (BEAKER) (test acys=985) 1.8 mg/dL 1.6-2.6 COMPREHENSIVE METABOLIC [id number] 06:46:00 Test Item Value Reference Range Comments TOTAL PROTEIN (BEAKER) 7.2 gm/dL 6.0-8.3 (test byua=908) ALBUMIN (BEAKER) (test 3.3 g/dL 3.5-5.0 kidd=5667) ALKALINE PHOSPHATASE 137 U/L 40-150 (BEAKER) (test mhin=392) BILIRUBIN TOTAL (BEAKER) 0.8 mg/dL 0.2-1.2 (test upxq=325) SODIUM (BEAKER) (test 136 meq/L 136-145 gnrm=007) POTASSIUM (BEAKER) (test 3.7 meq/L 3.5-5.1 pbya=725) CHLORIDE (BEAKER) (test 102 meq/L 98-107 zivy=435) CO2 (BEAKER) (test 25 meq/L 22-29 qwoj=694) BLOOD UREA NITROGEN 14 mg/dL 7-21 (BEAKER) (test ikfx=355) CREATININE (BEAKER) (test 1.06 mg/dL 0.57-1.25 txuq=475) GLUCOSE RANDOM (BEAKER) 154 mg/dL 70-105 (test iavm=271) CALCIUM (BEAKER) (test 8.8 mg/dL 8.4-10.2 sxak=432) AST (SGOT) (BEAKER) (test 55 U/L 5-34 hqsu=415) ALT (SGPT) (BEAKER) (test 24 U/L 6-55 pktq=450) EGFR (BEAKER) (test 73 mL/min/1.73 sq m ESTIMATED GFR IS NOT levr=3088) ACCURATE CREATININE CLEARANCE IN PREDICTING GLOMERULAR FILTRATION RATE. ESTIMATED GFR IS NOT APPLICABLE FOR DIALYSIS PATIENTS. CBC W/PLT COUNT & AUTO [id number] 06:20:00 Test Item Value Reference Range Comments WHITE BLOOD CELL COUNT 5.1 K/ L 3.5-10.5 (BEAKER) (test iatv=285) RED BLOOD CELL COUNT (BEAKER) 4.24 M/ L 4.63-6.08 (test bvxf=344) HEMOGLOBIN (BEAKER) (test 8.4 GM/DL 13.7-17.5 qfyz=638) HEMATOCRIT (BEAKER) (test 28.7 % 40.1-51.0 rkpn=272) MEAN CORPUSCULAR VOLUME 67.7 fL 79.0-92.2 (BEAKER) (test qoug=413) MEAN CORPUSCULAR HEMOGLOBIN 19.8 pg 25.7-32.2 (BEAKER) (test uvtk=895) MEAN CORPUSCULAR HEMOGLOBIN 29.3 GM/DL 32.3-36.5 CONC (BEAKER) (test lzdw=587) RED CELL DISTRIBUTION WIDTH 20.7 % 11.6-14.4 (BEAKER) (test rvlo=840) PLATELET COUNT (BEAKER) (test 121 K/CU MM 150-450 ztwu=646) MEAN PLATELET VOLUME (BEAKER) fL 9.4-12.4 Unable to report due to (test mywx=109) abnormal Platelet population distribution. NUCLEATED RED BLOOD CELLS 0 /100 WBC 0-0 (BEAKER) (test rhxc=975) NEUTROPHILS RELATIVE PERCENT 65 % (BEAKER) (test lljp=337) LYMPHOCYTES RELATIVE PERCENT 20 % (BEAKER) (test zwws=062) MONOCYTES RELATIVE PERCENT 8 % (BEAKER) (test woqj=695) EOSINOPHILS RELATIVE PERCENT 5 % (BEAKER) (test tjxs=699) BASOPHILS RELATIVE PERCENT 1 % (BEAKER) (test zxct=764) NEUTROPHILS ABSOLUTE COUNT 3.36 K/ L 1.78-5.38 (BEAKER) (test mzig=033) LYMPHOCYTES ABSOLUTE COUNT 1.02 K/ L 1.32-3.57 (BEAKER) (test ebxf=236) MONOCYTES ABSOLUTE COUNT 0.42 K/ L 0.30-0.82 (BEAKER) (test xasr=935) EOSINOPHILS ABSOLUTE COUNT 0.28 K/ L 0.04-0.54 (BEAKER) (test jlbw=686) BASOPHILS ABSOLUTE COUNT 0.05 K/ L 0.01-0.08 (BEAKER) (test xgpj=041) IMMATURE GRANULOCYTES-RELATIVE 0 % 0-1 PERCENT (BEAKER) (test bnbj=8859) POCT-GLUCOSE [id number] 21:51:00 Test Item Value Reference Range Comments POC-GLUCOSE METER (BEAKER) 279 mg/dL 70-110 TESTED AT [address] (test vctg=3738) [facility] [address] POCT-GLUCOSE [id number] 17:37:00 Test Item Value Reference Range Comments POC-GLUCOSE METER (BEAKER) 151 mg/dL 70-110 TESTED AT [address] (test qhwe=1038) [facility] [address] BASIC METABOLIC [id number] 16:15:00 Test Item Value Reference Range Comments SODIUM (BEAKER) (test 138 meq/L 136-145 vzqh=438) POTASSIUM (BEAKER) (test 3.7 meq/L 3.5-5.1 oolc=610) CHLORIDE (BEAKER) (test 102 meq/L 98-107 eavd=322) CO2 (BEAKER) (test 27 meq/L 22-29 bdiv=354) BLOOD UREA NITROGEN 14 mg/dL 7-21 (BEAKER) (test ukaf=373) CREATININE (BEAKER) (test 1.25 mg/dL 0.57-1.25 vyrm=633) GLUCOSE RANDOM (BEAKER) 129 mg/dL 70-105 (test qhqt=617) CALCIUM (BEAKER) (test 9.4 mg/dL 8.4-10.2 exxo=636) EGFR (BEAKER) (test 60 mL/min/1.73 sq m ESTIMATED GFR IS NOT lhio=3326) ACCURATE CREATININE CLEARANCE IN PREDICTING GLOMERULAR FILTRATION RATE. ESTIMATED GFR IS NOT APPLICABLE FOR DIALYSIS PATIENTS. Call [id number] 12:24:00 Test Item Value Reference Range Comments POC-GLUCOSE METER (BEAKER) 358 mg/dL 70-110 TESTED AT [address] (test wolg=1742) [facility] [address] POCT-GLUCOSE [id number] 07:53:00 Test Item Value Reference Range Comments POC-GLUCOSE METER (BEAKER) 173 mg/dL 70-110 TESTED AT [address] (test qfhf=0178) [place] [id number] POCT-GLUCOSE [id number] 22:33:00 Test Item Value Reference Range Comments POC-GLUCOSE METER (BEAKER) 228 mg/dL 70-110 TESTED AT [address] (test iczi=8233) [place] [address] [id number] 09:58:00 Test Item Value Reference Range Comments PHOSPHORUS (BEAKER) (test kxuv=092) 3.5 mg/dL 2.3-4.7 [id number] 09:58:00 Test Item Value Reference Range Comments MAGNESIUM (BEAKER) (test rcwz=862) 1.9 mg/dL 1.6-2.6 COMPREHENSIVE METABOLIC [id number] 09:58:00 Test Item Value Reference Range Comments TOTAL PROTEIN (BEAKER) 7.5 gm/dL 6.0-8.3 (test yikw=701) ALBUMIN (BEAKER) (test 3.5 g/dL 3.5-5.0 mzek=8917) ALKALINE PHOSPHATASE 129 U/L 40-150 (BEAKER) (test nelw=816) BILIRUBIN TOTAL (BEAKER) 0.9 mg/dL 0.2-1.2 (test vcwp=321) SODIUM (BEAKER) (test 136 meq/L 136-145 sqvy=882) POTASSIUM (BEAKER) (test 3.6 meq/L 3.5-5.1 lpkn=150) CHLORIDE (BEAKER) (test 103 meq/L 98-107 zxzb=904) CO2 (BEAKER) (test 24 meq/L 22-29 rhmo=887) BLOOD UREA NITROGEN 14 mg/dL 7-21 (BEAKER) (test ghwt=521) CREATININE (BEAKER) (test 1.17 mg/dL 0.57-1.25 lrxn=682) GLUCOSE RANDOM (BEAKER) 224 mg/dL 70-105 (test sgjx=352) CALCIUM (BEAKER) (test 9.0 mg/dL 8.4-10.2 vwfl=896) AST (SGOT) (BEAKER) (test 57 U/L 5-34 dwlw=242) ALT (SGPT) (BEAKER) (test 25 U/L 6-55 hpge=467) EGFR (BEAKER) (test 65 mL/min/1.73 sq m ESTIMATED GFR IS NOT pxkw=7069) ACCURATE CREATININE CLEARANCE IN PREDICTING GLOMERULAR FILTRATION RATE. ESTIMATED GFR IS NOT APPLICABLE FOR DIALYSIS PATIENTS. POCT-GLUCOSE [id number] 08:36:00 Test Item Value Reference Range Comments POC-GLUCOSE METER (BEAKER) 220 mg/dL 70-[address] [facility] [address] [facility] (test vegg=8896) [facility] [address] CBC W/PLT COUNT & AUTO [id number] 07:42:00 Test Item Value Reference Range Comments WHITE BLOOD CELL COUNT 5.4 K/ L 3.5-10.5 (BEAKER) (test kjus=963) RED BLOOD CELL COUNT (BEAKER) 4.30 M/ L 4.63-6.08 (test pgvg=303) HEMOGLOBIN (BEAKER) (test 8.6 GM/DL 13.7-17.5 dzby=904) HEMATOCRIT (BEAKER) (test 29.3 % 40.1-51.0 frgf=154) MEAN CORPUSCULAR VOLUME 68.1 fL 79.0-92.2 (BEAKER) (test boex=571) MEAN CORPUSCULAR HEMOGLOBIN 20.0 pg 25.7-32.2 (BEAKER) (test rnsg=139) MEAN CORPUSCULAR HEMOGLOBIN 29.4 GM/DL 32.3-36.5 CONC (BEAKER) (test qhcu=919) RED CELL DISTRIBUTION WIDTH 20.7 % 11.6-14.4 (BEAKER) (test kivf=527) PLATELET COUNT (BEAKER) (test 112 K/CU MM 150-450 yhzu=048) MEAN PLATELET VOLUME (BEAKER) fL 9.4-12.4 Unable to report due to (test xvto=874) abnormal Platelet population distribution. NUCLEATED RED BLOOD CELLS 0 /100 WBC 0-0 (BEAKER) (test cfkp=661) NEUTROPHILS RELATIVE PERCENT 71 % (BEAKER) (test oktr=841) LYMPHOCYTES RELATIVE PERCENT 15 % (BEAKER) (test scto=285) MONOCYTES RELATIVE PERCENT 9 % (BEAKER) (test zztb=101) EOSINOPHILS RELATIVE PERCENT 5 % (BEAKER) (test tiuc=025) BASOPHILS RELATIVE PERCENT 1 % (BEAKER) (test ubqa=025) NEUTROPHILS ABSOLUTE COUNT 3.79 K/ L 1.78-5.38 (BEAKER) (test uuce=997) LYMPHOCYTES ABSOLUTE COUNT 0.79 K/ L 1.32-3.57 (BEAKER) (test vyeg=536) MONOCYTES ABSOLUTE COUNT 0.48 K/ L 0.30-0.82 (BEAKER) (test rajc=878) EOSINOPHILS ABSOLUTE COUNT 0.28 K/ L 0.04-0.54 (BEAKER) (test spcp=658) BASOPHILS ABSOLUTE COUNT 0.04 K/ L 0.01-0.08 (BEAKER) (test ehrr=294) IMMATURE GRANULOCYTES-RELATIVE 0 % 0-1 PERCENT (BEAKER) (test vgmf=4527) CALCIUM, [id number] 06:42:00 Test Item Value Reference Range Comments CALCIUM IONIZED (BEAKER) (test ggyg=095) 1.07 mmol/L 1.12-1.27 PH, BLOOD (BEAKER) (test dxgb=0942) 7.42 POCT-GLUCOSE [id number] 22:30:00 Test Item Value Reference Range Comments POC-GLUCOSE METER (BEAKER) 183 mg/dL 70-110 TESTED AT [address] (test xjtq=8455) [facility] [address] POCT-GLUCOSE [id number] 18:41:00 Test Item Value Reference Range Comments POC-GLUCOSE METER (BEAKER) 278 mg/dL 70-110 TESTED AT [address] (test oboc=4114) [facility] [address] POCT-GLUCOSE [id number] 11:50:00 Test Item Value Reference Range Comments POC-GLUCOSE METER (BEAKER) 142 mg/dL 70-110 TESTED AT [address] (test esqe=4881) [facility] [address] POCT-GLUCOSE [id number] 10:36:00 Test Item Value Reference Range Comments POC-GLUCOSE METER (BEAKER) 130 mg/dL 70-110 TESTED AT [address] (test yqiz=7021) [facility] [address] POCT-GLUCOSE [id number] 07:40:00 Test Item Value Reference Range Comments POC-GLUCOSE METER (BEAKER) 145 mg/dL 70-110 TESTED AT [address] (test nsdg=6242) [facility] [address] CBC W/PLT COUNT & AUTO [id number] 06:58:00 Test Item Value Reference Range Comments WHITE BLOOD CELL COUNT 5.1 K/ L 3.5-10.5 (BEAKER) (test xffs=272) RED BLOOD CELL COUNT (BEAKER) 4.31 M/ L 4.63-6.08 (test mhzk=036) HEMOGLOBIN (BEAKER) (test 8.3 GM/DL 13.7-17.5 ojyo=422) HEMATOCRIT (BEAKER) (test 29.6 % 40.1-51.0 ptdr=964) MEAN CORPUSCULAR VOLUME 68.7 fL 79.0-92.2 (BEAKER) (test ljpc=273) MEAN CORPUSCULAR HEMOGLOBIN 19.3 pg 25.7-32.2 (BEAKER) (test vrss=835) MEAN CORPUSCULAR HEMOGLOBIN 28.0 GM/DL 32.3-36.5 CONC (BEAKER) (test ogxx=655) RED CELL DISTRIBUTION WIDTH 21.1 % 11.6-14.4 (BEAKER) (test nqbe=037) PLATELET COUNT (BEAKER) (test 108 K/CU MM 150-450 ftqp=256) MEAN PLATELET VOLUME (BEAKER) fL 9.4-12.4 Unable to report due to (test pwuu=500) abnormal Platelet population distribution. NUCLEATED RED BLOOD CELLS 0 /100 WBC 0-0 (BEAKER) (test ilul=358) NEUTROPHILS RELATIVE PERCENT 65 % (BEAKER) (test wuwt=588) LYMPHOCYTES RELATIVE PERCENT 20 % (BEAKER) (test bzuc=164) MONOCYTES RELATIVE PERCENT 8 % (BEAKER) (test yixl=265) EOSINOPHILS RELATIVE PERCENT 7 % (BEAKER) (test omom=710) BASOPHILS RELATIVE PERCENT 1 % (BEAKER) (test srqw=932) NEUTROPHILS ABSOLUTE COUNT 3.30 K/ L 1.78-5.38 (BEAKER) (test hptv=202) LYMPHOCYTES ABSOLUTE COUNT 1.00 K/ L 1.32-3.57 (BEAKER) (test tmju=400) MONOCYTES ABSOLUTE COUNT 0.40 K/ L 0.30-0.82 (BEAKER) (test knxu=445) EOSINOPHILS ABSOLUTE COUNT 0.33 K/ L 0.04-0.54 (BEAKER) (test mkiu=280) BASOPHILS ABSOLUTE COUNT 0.05 K/ L 0.01-0.08 (BEAKER) (test nenf=314) IMMATURE GRANULOCYTES-RELATIVE 0 % 0-1 PERCENT (BEAKER) (test fiva=6705) [id number] 06:56:00 Test Item Value Reference Range Comments PHOSPHORUS (BEAKER) (test ygpv=197) 3.7 mg/dL 2.3-4.7 [id number] 06:56:00 Test Item Value Reference Range Comments MAGNESIUM (BEAKER) (test umyz=025) 1.6 mg/dL 1.6-2.6 BASIC METABOLIC [id number] 06:56:00 Test Item Value Reference Range Comments SODIUM (BEAKER) (test 138 meq/L 136-145 eeci=731) POTASSIUM (BEAKER) (test 3.9 meq/L 3.5-5.1 cgup=992) CHLORIDE (BEAKER) (test 105 meq/L 98-107 fmec=477) CO2 (BEAKER) (test 25 meq/L 22-29 rigo=142) BLOOD UREA NITROGEN 13 mg/dL 7-21 (BEAKER) (test hgkf=701) CREATININE (BEAKER) (test 1.06 mg/dL 0.57-1.25 hsxi=509) GLUCOSE RANDOM (BEAKER) 115 mg/dL 70-105 (test luah=623) CALCIUM (BEAKER) (test 8.8 mg/dL 8.4-10.2 oshf=504) EGFR (BEAKER) (test 73 mL/min/1.73 sq m ESTIMATED GFR IS NOT padc=2007) ACCURATE CREATININE CLEARANCE IN PREDICTING GLOMERULAR FILTRATION RATE. ESTIMATED GFR IS NOT APPLICABLE FOR DIALYSIS PATIENTS. CALCIUM, [id number] 06:46:00 Test Item Value Reference Range Comments CALCIUM IONIZED (BEAKER) (test cyxw=587) 0.89 mmol/L 1.12-1.27 PH, BLOOD (BEAKER) (test xpdd=4673) 7.41 PROTHROMBIN [id number] 06:38:00 Test Item Value Reference Range Comments PROTIME (BEAKER) (test pzqr=448) 15.2 seconds 11.7-14.7 INR (BEAKER) (test tjoj=039) 1.2 <=5.9 RECOMMENDED COUMADIN/WARFARIN INR THERAPY RANGESSTANDARD DOSE: 2.0 - 3.0 Includes: PROPHYLAXIS forvenous thrombosis, systemic embolization; TREATMENT for venous thrombosis and/or pulmonary embolus.HIGH RISK: Target INR is 2.5-3.5 for patients with mechanical heart valves.B-TYPE NATRIURETIC FACTOR (BNP)2018-12 06:35:00 Test Item Value Reference Range Comments B-TYPE NATRIURETIC PEPTIDE (BEAKER) (test 135 pg/mL 0-100 oqjh=712) POCT-GLUCOSE [id number] 22:28:00 Test Item Value Reference Range Comments POC-GLUCOSE METER (BEAKER) 109 mg/dL 70-[address] [facility] [address] [facility] (test pqki=7855) [facility] [address] POCT-GLUCOSE [id number] 21:07:00 Test Item Value Reference Range Comments POC-GLUCOSE METER (BEAKER) 91 mg/dL 70-[address] [facility] [address] [facility] (test xdxw=8950) [facility] [address] POCT-GLUCOSE [id number] 16:48:00 Test Item Value Reference Range Comments POC-GLUCOSE METER (BEAKER) 487 mg/dL 70-110 TESTED AT [address] (test nutm=0855) [facility] [address] HOPE [id number] 12:58:00Reason for Exam:->recurrent variceal bleeding, portal hypertensionFINAL REPORT History: Portal hypertension, history of variceal bleeding. PROCEDURE: Following informed written consent, general endotracheal anesthesia was administered and the patient's right cervical region was prepped and draped in the usual sterile manner. Access was gained the right internal jugular vein using a micropuncture needle. A 9 Lao sheath was placed at the access site into the jugular vein. A 5 Lao multipurpose catheter and wire were used to carefully select the hepatic vein and perform a hepatic venogram. Hepatic venous pressures were then performed as described below. Following a discussion with the patient's referring senior chemist, Dr. Cano, who also conferred with cardiology, the procedure was aborted due to elevated right heart pressures as detailed below. The catheter and sheath were then removed and hemostasis achieved without immediate complications. The patient was discharged to the recovery room in stable condition. FINDINGS: Hepatic venography demonstrates patent right hepatic vein. Hepatic venous and right heart pressures were measured as follows : Wedged hepatic: 26 mmHgFree hepatic: 16 mmHgRight atrial:15 mmHg IMPRESSION : 1. Elevated right atrial pressures resulting in an aborted TIPS procedure. Total fluoroscopy time: 2.5 minutes. Estimated total patient dose reported as ( Ka,r): 55 mGy Signed: Kimber Diaz Verified Date/Time: 12/26/2018 12: 58:23 Reading Location: [facility] P048 Angio Body Reading Room POCT-GLUCOSE [id number] 12:50:00 Test Item Value Reference Range Comments POC-GLUCOSE METER (BEAKER) 124 mg/dL 70-110 TESTED AT [address] (test iqdx=1509) [facility] [address] POCT-GLUCOSE [id number] 10:41:00 Test Item Value Reference Range Comments POC-GLUCOSE METER (BEAKER) 158 mg/dL 70-110 TESTED AT [place] [address] [address] (test uhlo=6040) [facility] [address] COMPREHENSIVE METABOLIC [id number] 07:58:00 Test Item Value Reference Range Comments TOTAL PROTEIN (BEAKER) 7.2 gm/dL 6.0-8.3 (test jwia=610) ALBUMIN (BEAKER) (test 3.0 g/dL 3.5-5.0 siko=9965) ALKALINE PHOSPHATASE 142 U/L 40-150 (BEAKER) (test uhfo=822) BILIRUBIN TOTAL (BEAKER) 0.9 mg/dL 0.2-1.2 (test fkzp=564) SODIUM (BEAKER) (test 138 meq/L 136-145 awtn=664) POTASSIUM (BEAKER) (test 4.4 meq/L 3.5-5.1 ksir=726) CHLORIDE (BEAKER) (test 106 meq/L 98-107 nztt=097) CO2 (BEAKER) (test 26 meq/L 22-29 guhu=713) BLOOD UREA NITROGEN 10 mg/dL 7-21 (BEAKER) (test fcgm=721) CREATININE (BEAKER) (test 0.91 mg/dL 0.57-1.25 ouhu=712) GLUCOSE RANDOM (BEAKER) 134 mg/dL 70-105 (test kpwc=231) CALCIUM (BEAKER) (test 9.3 mg/dL 8.4-10.2 ufla=358) AST (SGOT) (BEAKER) (test 69 U/L 5-34 firi=188) ALT (SGPT) (BEAKER) (test 29 U/L 6-55 lwiw=365) EGFR (BEAKER) (test 86 mL/min/1.73 sq m ESTIMATED GFR IS NOT nbgh=9556) ACCURATE CREATININE CLEARANCE IN PREDICTING GLOMERULAR FILTRATION RATE. ESTIMATED GFR IS NOT APPLICABLE FOR DIALYSIS PATIENTS. [id number] 07:58:00 Test Item Value Reference Range Comments PROTIME (BEAKER) (test uwhw=965) 15.4 seconds 11.7-14.7 INR (BEAKER) (test oewk=463) 1.2 <=5.9 PARTIAL THROMBOPLASTIN TIME (BEAKER) (test 35.4 seconds 22.5-36.0 owbs=247) RECOMMENDED COUMADIN/WARFARIN INR THERAPY RANGESSTANDARD DOSE: 2.0 - 3.0 Includes: PROPHYLAXIS forvenous thrombosis, systemic embolization; TREATMENT for venous thrombosis and/or pulmonary embolus.HIGH RISK: Target INR is 2.5-3.5 for patients with mechanical heart valves.CBC W/PLT COUNT & AUTO [id number] 07:52:00 Test Item Value Reference Range Comments WHITE BLOOD CELL COUNT (BEAKER) (test ndjf=845) 4.6 K/ L 3.5-10.5 RED BLOOD CELL COUNT (BEAKER) (test nkfz=246) 4.35 M/ L 4.63-6.08 HEMOGLOBIN (BEAKER) (test nije=990) 8.6 GM/DL 13.7-17.5 HEMATOCRIT (BEAKER) (test rnxq=197) 30.1 % 40.1-51.0 MEAN CORPUSCULAR VOLUME (BEAKER) (test tdwq=001) 69.2 fL 79.0-92.2 MEAN CORPUSCULAR HEMOGLOBIN (BEAKER) (test 19.8 pg 25.7-32.2 yzov=943) MEAN CORPUSCULAR HEMOGLOBIN CONC (BEAKER) (test 28.6 GM/DL 32.3-36.5 cduy=365) RED CELL DISTRIBUTION WIDTH (BEAKER) (test 21.3 % 11.6-14.4 wiux=749) PLATELET COUNT (BEAKER) (test qzkx=084) 110 K/CU MM 150-450 MEAN PLATELET VOLUME (BEAKER) (test ljqy=119) 10.1 fL 9.4-12.4 NUCLEATED RED BLOOD CELLS (BEAKER) (test 0 /100 WBC 0-0 azwc=858) NEUTROPHILS RELATIVE PERCENT (BEAKER) (test 66 % boce=081) LYMPHOCYTES RELATIVE PERCENT (BEAKER) (test 19 % drvd=024) MONOCYTES RELATIVE PERCENT (BEAKER) (test 8 % obih=459) EOSINOPHILS RELATIVE PERCENT (BEAKER) (test 6 % yxfz=485) BASOPHILS RELATIVE PERCENT (BEAKER) (test 1 % dokh=841) NEUTROPHILS ABSOLUTE COUNT (BEAKER) (test 3.03 K/ L 1.78-5.38 wwwc=237) LYMPHOCYTES ABSOLUTE COUNT (BEAKER) (test 0.88 K/ L 1.32-3.57 ndcw=182) MONOCYTES ABSOLUTE COUNT (BEAKER) (test 0.37 K/ L 0.30-0.82 itvh=305) EOSINOPHILS ABSOLUTE COUNT (BEAKER) (test 0.25 K/ L 0.04-0.54 jhya=266) BASOPHILS ABSOLUTE COUNT (BEAKER) (test 0.04 K/ L 0.01-0.08 gogw=788) IMMATURE GRANULOCYTES-RELATIVE PERCENT (BEAKER) 0 % 0-1 (test susu=1942) POCT-GLUCOSE [id number] 00:26:00 Test Item Value Reference Range Comments POC-GLUCOSE METER (BEAKER) 161 mg/dL 70-110 TESTED AT [address] (test efdm=9256) [place] [id number] URINALYSIS W/ [id number] 17:35:00 Test Item Value Reference Range Comments COLOR (BEAKER) (test sxrm=320) Light Yellow CLARITY (BEAKER) (test mswi=594) Clear SPECIFIC GRAVITY UA (BEAKER) (test voyn=111) 1.008 1.001-1.035 PH UA (BEAKER) (test xwaj=739) 7.5 5.0-8.0 PROTEIN UA (BEAKER) (test ulvc=138) 30 mg/dL Negative GLUCOSE UA (BEAKER) (test oniq=733) 30 mg/dL Negative KETONES UA (BEAKER) (test dbnl=869) Negative Negative BILIRUBIN UA (BEAKER) (test pqty=581) Negative Negative BLOOD UA (BEAKER) (test uyum=276) Trace Negative NITRITE UA (BEAKER) (test ggll=533) Negative Negative LEUKOCYTE ESTERASE UA (BEAKER) (test qhfu=684) Negative Negative UROBILINOGEN UA (BEAKER) (test ctdf=613) 0.2 mg/dL 0.2-1.0 RBC UA (BEAKER) (test eqyv=714) 1 /HPF WBC UA (BEAKER) (test ozau=624) 1 /HPF SOURCE(BEAKER) (test eddq=2603) Urine, Voided POCT-GLUCOSE [id number] 16:55:00 Test Item Value Reference Range Comments POC-GLUCOSE METER (BEAKER) 234 mg/dL 70-110 TESTED AT [address] (test qfak=2921) [facility] [address] POCT-GLUCOSE [id number] 12:09:00 Test Item Value Reference Range Comments POC-GLUCOSE METER (BEAKER) 199 mg/dL 70-110 TESTED AT [address] (test nkwf=9115) [facility] [address] POCT-GLUCOSE [id number] 07:58:00 Test Item Value Reference Range Comments POC-GLUCOSE METER (BEAKER) 221 mg/dL 70-110 TESTED AT [address] (test xhum=8283) [facility] [address] POCT-GLUCOSE [id number] 22:49:00 Test Item Value Reference Range Comments POC-GLUCOSE METER (BEAKER) 210 mg/dL 70-110 TESTED AT [address] (test alzr=8059) [facility] [address] POCT-GLUCOSE [id number] 14:45:00 Test Item Value Reference Range Comments POC-GLUCOSE METER (BEAKER) 128 mg/dL 70-110 TESTED AT [address] (test fyja=3472) [facility] [address] POCT-GLUCOSE [id number] 12:03:00 Test Item Value Reference Range Comments POC-GLUCOSE METER (BEAKER) 136 mg/dL 70-110 TESTED AT [address] (test bixa=9177) [facility] [address] COMPREHENSIVE METABOLIC [id number] 09:07:00 Test Item Value Reference Range Comments TOTAL PROTEIN (BEAKER) 6.9 gm/dL 6.0-8.3 Specimen slightly (test nyvp=165) hemolyzed ALBUMIN (BEAKER) (test 2.7 g/dL 3.5-5.0 Specimen slightly icqe=4725) hemolyzed ALKALINE PHOSPHATASE 136 U/L 40-150 (BEAKER) (test uqwl=151) BILIRUBIN TOTAL (BEAKER) 1.1 mg/dL 0.2-1.2 Specimen slightly (test thkm=570) hemolyzed SODIUM (BEAKER) (test 135 meq/L 136-145 dxqn=377) POTASSIUM (BEAKER) (test 4.4 meq/L 3.5-5.1 Specimen slightly fxwp=707) hemolyzed CHLORIDE (BEAKER) (test 106 meq/L 98-107 cwee=273) CO2 (BEAKER) (test 26 meq/L 22-29 kixw=337) BLOOD UREA NITROGEN 7 mg/dL 7-21 (BEAKER) (test spqp=881) CREATININE (BEAKER) (test 0.85 mg/dL 0.57-1.25 Specimen slightly qnrr=465) hemolyzed GLUCOSE RANDOM (BEAKER) 118 mg/dL 70-105 (test svsq=160) CALCIUM (BEAKER) (test 8.8 mg/dL 8.4-10.2 ytxu=210) AST (SGOT) (BEAKER) (test 69 U/L 5-34 Specimen slightly btgu=448) hemolyzed ALT (SGPT) (BEAKER) (test 28 U/L 6-55 Specimen slightly xbbz=887) hemolyzed EGFR (BEAKER) (test 94 mL/min/1.73 sq m ESTIMATED GFR IS NOT avra=8252) ACCURATE CREATININE CLEARANCE IN PREDICTING GLOMERULAR FILTRATION RATE. ESTIMATED GFR IS NOT APPLICABLE FOR DIALYSIS PATIENTS. CBC W/PLT COUNT & AUTO [id number] 08:37:00 Test Item Value Reference Range Comments WHITE BLOOD CELL COUNT 4.4 K/ L 3.5-10.5 (BEAKER) (test auef=711) RED BLOOD CELL COUNT (BEAKER) 4.31 M/ L 4.63-6.08 (test nqbr=945) HEMOGLOBIN (BEAKER) (test 8.4 GM/DL 13.7-17.5 fefl=435) HEMATOCRIT (BEAKER) (test 30.2 % 40.1-51.0 kupl=040) MEAN CORPUSCULAR VOLUME 70.1 fL 79.0-92.2 (BEAKER) (test xbaq=357) MEAN CORPUSCULAR HEMOGLOBIN 19.5 pg 25.7-32.2 (BEAKER) (test ejwz=984) MEAN CORPUSCULAR HEMOGLOBIN 27.8 GM/DL 32.3-36.5 CONC (BEAKER) (test odzj=104) RED CELL DISTRIBUTION WIDTH 21.9 % 11.6-14.4 (BEAKER) (test nmjq=275) PLATELET COUNT (BEAKER) (test 114 K/CU MM 150-450 oubc=099) MEAN PLATELET VOLUME (BEAKER) fL 9.4-12.4 Unable to report due to (test qttj=255) abnormal Platelet population distribution. NUCLEATED RED BLOOD CELLS 0 /100 WBC 0-0 (BEAKER) (test avtg=674) NEUTROPHILS RELATIVE PERCENT 62 % (BEAKER) (test cylc=437) LYMPHOCYTES RELATIVE PERCENT 22 % (BEAKER) (test queg=297) MONOCYTES RELATIVE PERCENT 8 % (BEAKER) (test enot=031) EOSINOPHILS RELATIVE PERCENT 6 % (BEAKER) (test xmfr=425) BASOPHILS RELATIVE PERCENT 1 % (BEAKER) (test kcds=819) NEUTROPHILS ABSOLUTE COUNT 2.75 K/ L 1.78-5.38 (BEAKER) (test gqmo=371) LYMPHOCYTES ABSOLUTE COUNT 0.98 K/ L 1.32-3.57 (BEAKER) (test mrqq=408) MONOCYTES ABSOLUTE COUNT 0.34 K/ L 0.30-0.82 (BEAKER) (test vlzn=936) EOSINOPHILS ABSOLUTE COUNT 0.28 K/ L 0.04-0.54 (BEAKER) (test xier=154) BASOPHILS ABSOLUTE COUNT 0.06 K/ L 0.01-0.08 (BEAKER) (test kolq=603) IMMATURE GRANULOCYTES-RELATIVE 1 % 0-1 PERCENT (BEAKER) (test zegg=1296) POCT-GLUCOSE [id number] 08:07:00 Test Item Value Reference Range Comments POC-GLUCOSE METER (BEAKER) 144 mg/dL 70-110 TESTED AT [address] (test hmab=1445) [place] [id number] 23:43:00 Test Item Value Reference Range Comments MAGNESIUM (BEAKER) (test rrrx=202) 1.7 mg/dL 1.6-2.6 POCT-GLUCOSE [id number] 22:22:00 Test Item Value Reference Range Comments POC-GLUCOSE METER (BEAKER) 211 mg/dL 70-110 TESTED AT [address] (test wzyw=8359) [place] [id number] POCT-GLUCOSE [id number] 17:13:00 Test Item Value Reference Range Comments POC-GLUCOSE METER (BEAKER) 202 mg/dL 70-110 TESTED AT [address] (test buvp=4023) [place] [id number] [id number] 16:14:00 Test Item Value Reference Range Comments T3 TOTAL (BEAKER) (test wcrk=885) 108 ng/dL 48-159 POCT-GLUCOSE [id number] 13:49:00 Test Item Value Reference Range Comments POC-GLUCOSE METER (BEAKER) 303 mg/dL 70-110 TESTED AT [address] (test jxsa=3314) [facility] [address] POCT-GLUCOSE [id number] 12:15:00 Test Item Value Reference Range Comments POC-GLUCOSE METER (BEAKER) 304 mg/dL 70-110 Notified JADA NIX/TESTED AT [facility] (test qbut=5318) [address] [facility] [address] ANTI-MITOCHONDRIAL AB, REFLEX TO [id number] 08:35:00 Test Item Value Reference Range Comments SCAN RESULT (test echg=[id number]) POCT-GLUCOSE [id number] 08:08:00 Test Item Value Reference Range Comments POC-GLUCOSE METER (BEAKER) 146 mg/dL 70-[address] [facility] [address] (test ppla=9651) [facility] [address] HEPATIC FUNCTION [id number] 06:32:00 Test Item Value Reference Range Comments TOTAL PROTEIN (BEAKER) (test jcoo=444) 6.5 gm/dL 6.0-8.3 ALBUMIN (BEAKER) (test nwxy=0651) 2.7 g/dL 3.5-5.0 BILIRUBIN TOTAL (BEAKER) (test nbmp=572) 0.8 mg/dL 0.2-1.2 BILIRUBIN DIRECT (BEAKER) (test gvbj=544) 0.6 mg/dL 0.1-0.5 ALKALINE PHOSPHATASE (BEAKER) (test ises=496) 141 U/L 40-150 AST (SGOT) (BEAKER) (test bprr=625) 66 U/L 5-34 ALT (SGPT) (BEAKER) (test uskt=296) 27 U/L 6-55 BASIC METABOLIC [id number] 06:32:00 Test Item Value Reference Range Comments SODIUM (BEAKER) (test 137 meq/L 136-145 qptz=475) POTASSIUM (BEAKER) (test 4.0 meq/L 3.5-5.1 hikp=968) CHLORIDE (BEAKER) (test 106 meq/L 98-107 uwpw=061) CO2 (BEAKER) (test 26 meq/L 22-29 zxdn=212) BLOOD UREA NITROGEN 7 mg/dL 7-21 (BEAKER) (test uais=236) CREATININE (BEAKER) (test 0.81 mg/dL 0.57-1.25 yxwg=711) GLUCOSE RANDOM (BEAKER) 134 mg/dL 70-105 (test wvxp=360) CALCIUM (BEAKER) (test 8.6 mg/dL 8.4-10.2 njyo=811) EGFR (BEAKER) (test 99 mL/min/1.73 sq m ESTIMATED GFR IS NOT mlda=9167) ACCURATE CREATININE CLEARANCE IN PREDICTING GLOMERULAR FILTRATION RATE. ESTIMATED GFR IS NOT APPLICABLE FOR DIALYSIS PATIENTS. CBC (HEMOGRAM ONLY)2018-12-23 05:34:00 Test Item Value Reference Range Comments WHITE BLOOD CELL COUNT (BEAKER) (test kzwo=347) 4.4 K/ L 3.5-10.5 RED BLOOD CELL COUNT (BEAKER) (test uvcs=300) 4.11 M/ L 4.63-6.08 HEMOGLOBIN (BEAKER) (test cquj=897) 8.0 GM/DL 13.7-17.5 HEMATOCRIT (BEAKER) (test keon=037) 28.2 % 40.1-51.0 MEAN CORPUSCULAR VOLUME (BEAKER) (test mruq=204) 68.6 fL 79.0-92.2 MEAN CORPUSCULAR HEMOGLOBIN (BEAKER) (test 19.5 pg 25.7-32.2 bkla=493) MEAN CORPUSCULAR HEMOGLOBIN CONC (BEAKER) (test 28.4 GM/DL 32.3-36.5 qech=111) RED CELL DISTRIBUTION WIDTH (BEAKER) (test 21.5 % 11.6-14.4 djbl=109) PLATELET COUNT (BEAKER) (test pdms=293) 121 K/CU MM 150-450 MEAN PLATELET VOLUME (BEAKER) (test gabw=527) 10.2 fL 9.4-12.4 NUCLEATED RED BLOOD CELLS (BEAKER) (test 0 /100 WBC 0-0 wuke=531) PROTHROMBIN [id number] 05:27:00 Test Item Value Reference Range Comments PROTIME (BEAKER) (test cbrr=240) 15.2 seconds 11.7-14.7 INR (BEAKER) (test wawe=703) 1.2 <=5.9 RECOMMENDED COUMADIN/WARFARIN INR THERAPY RANGESSTANDARD DOSE: 2.0 - 3.0 Includes: PROPHYLAXIS forvenous thrombosis, systemic embolization; TREATMENT for venous thrombosis and/or pulmonary embolus.HIGH RISK: Target INR is 2.5-3.5 for patients with mechanical heart valves.POCT-GLUCOSE [id number] 23:11:00 Test Item Value Reference Range Comments POC-GLUCOSE METER (BEAKER) 224 mg/dL 70-110 TESTED AT [address] (test gwbd=6290) [facility] [address] POCT-GLUCOSE [id number] 16:52:00 Test Item Value Reference Range Comments POC-GLUCOSE METER (BEAKER) 250 mg/dL 70-110 TESTED AT [address] (test tntq=6714) [facility] [address] POCT-GLUCOSE [id number] 11:56:00 Test Item Value Reference Range Comments POC-GLUCOSE METER (BEAKER) 310 mg/dL 70-110 TESTED AT [address] (test uyxd=2947) [facility] [address] POCT-GLUCOSE [id number] 07:50:00 Test Item Value Reference Range Comments POC-GLUCOSE METER (BEAKER) 267 mg/dL 70-110 TESTED AT [address] (test hoeh=4046) [facility] [address] COMPREHENSIVE METABOLIC [id number] 05:05:00 Test Item Value Reference Range Comments TOTAL PROTEIN (BEAKER) 6.3 gm/dL 6.0-8.3 (test nomh=740) ALBUMIN (BEAKER) (test 2.6 g/dL 3.5-5.0 gavv=2684) ALKALINE PHOSPHATASE 112 U/L 40-150 (BEAKER) (test fgdq=618) BILIRUBIN TOTAL (BEAKER) 0.9 mg/dL 0.2-1.2 (test xqml=898) SODIUM (BEAKER) (test 138 meq/L 136-145 tvsd=194) POTASSIUM (BEAKER) (test 3.9 meq/L 3.5-5.1 vmdp=758) CHLORIDE (BEAKER) (test 108 meq/L 98-107 gwas=364) CO2 (BEAKER) (test 25 meq/L 22-29 uxgx=204) BLOOD UREA NITROGEN 6 mg/dL 7-21 (BEAKER) (test voxm=953) CREATININE (BEAKER) (test 0.82 mg/dL 0.57-1.25 uwsh=115) GLUCOSE RANDOM (BEAKER) 146 mg/dL 70-105 (test ecce=630) CALCIUM (BEAKER) (test 8.8 mg/dL 8.4-10.2 okms=410) AST (SGOT) (BEAKER) (test 73 U/L 5-34 jdzj=932) ALT (SGPT) (BEAKER) (test 25 U/L 6-55 nfye=257) EGFR (BEAKER) (test 98 mL/min/1.73 sq m ESTIMATED GFR IS NOT adwd=2987) ACCURATE CREATININE CLEARANCE IN PREDICTING GLOMERULAR FILTRATION RATE. ESTIMATED GFR IS NOT APPLICABLE FOR DIALYSIS PATIENTS. POCT-GLUCOSE [id number] 22:34:00 Test Item Value Reference Range Comments POC-GLUCOSE METER (BEAKER) 186 mg/dL 70-110 TESTED AT [address] (test zlrv=4832) [facility] [id number] POCT-GLUCOSE [id number] 18:03:00 Test Item Value Reference Range Comments POC-GLUCOSE METER (BEAKER) 206 mg/dL 70-110 TESTED AT [address] (test hrmk=4847) [facility] [address] RAD, MANDIBLE, MIN 4 [id number] 17:16:00Reason for exam:->liver transplant evalShould this be performed at the bedside?->YesFINAL REPORT EXAMINATION: Mandible series, 4 views CLINICAL INDICATION : Livertransplant candidate. Evaluate for odontogenic infection. IMPRESSION: Although odontogenic infectioncannot be excluded, there is no definite evidence of periapical radiolucency along the tooth roots. Paranasal sinuses and mastoid air cells appear relatively well pneumatized. Orbits are unremarkable. If there is persistent clinical concern, consider a maxillofacial CT. Signed: Anita Mauricio Verified Date/Time: 12/21/2018 17:16:26 Reading Location: [address] Reading Room POCT-GLUCOSE [id number] 11:42:00 Test Item Value Reference Range Comments POC-GLUCOSE METER (BEAKER) 305 mg/dL 70-110 Notified JADA NIX/TESTED AT [facility] (test hxxq=8835) [address] [place] [address] POCT-GLUCOSE [id number] 08:14:00 Test Item Value Reference Range Comments POC-GLUCOSE METER (BEAKER) 288 mg/dL 70-110 TESTED AT [address] (test nniy=6086) [facility] [address] POCT-GLUCOSE [id number] 23:29:00 Test Item Value Reference Range Comments POC-GLUCOSE METER (BEAKER) 134 mg/dL 70-110 TESTED AT [address] (test oljx=0795) [facility] [address] POCT-GLUCOSE [id number] 18:42:00 Test Item Value Reference Range Comments POC-GLUCOSE METER (BEAKER) 357 mg/dL 70-110 TESTED AT [address] (test idfh=9610) [facility] [address] CRYPTOCOCCAL [id number] 11:32:00 Test Item Value Reference Range Comments CRYPTOCOCCAL ANTIGEN, SERUM (BEAKER) (test Negative Negative, Interference swqo=4806) [id number] 11:30:00 Test Item Value Reference Range Comments RPR SCREEN (BEAKER) (test zsnd=106) Nonreactive Nonreactive HEMOGLOBIN [id number] 10:23:00 Test Item Value Reference Range Comments HEMOGLOBIN A1C (BEAKER) (test pakm=196) 6.7 % 4.3-6.1 CYTOMEGALOVIRUS ANTIBODY, [id number] 09:29:00 Test Item Value Reference Range Comments CYTOMEGALOVIRUS, IGG (BEAKER) (test ywwc=6401) Positive Negative, Equivocal CMV IgG Result Interpretation: </=0.8 Al Negative 0.9-1.0 Al Equivocal &gt ;/=1.1 Al PositiveCYTOMEGALOVIRUS ANTIBODY, [id number] 09:29:00 Test Item Value Reference Range Comments CYTOMEGALOVIRUS IGM ANTIBODY (BEAKER) (test Negative Negative, Equivocal gppn=9532) CMV IgM Result Interpretation: </=0.8 Al Negative 0.9-1.0 Al Equivocal >/=1.1 Al PositiveEBV ANTIBODY, [id number] 09:29:00 Test Item Value Reference Range Comments JAQUELINE MEDRANO VIRAL CAPSID ANTIGEN IGG (BEAKER) Positive Negative, Equivocal (test aqep=7658) Jaqueline Medrano Viral Capsid Antigen IgG Result Interpretation: </=0.8 Al Negative 0.9-1.0 Al Equivocal >/=1.1 Al PositiveEBV ANTIBODY, [id number] 09:29:00 Test Item Value Reference Range Comments JAQUELINE MEDRANO VIRAL CAPSID ANTIGEN IGM (BEAKER) Negative Negative, Equivocal (test kshz=9808) Jaqueline Medrano Viral Capsid Antigen IgM Result Interpretation: </=0.8 Al Negative 0.9-1.0 Al Equivocal >/=1.1 Al PositivePOCT-GLUCOSE [id number] 07:53:00 Test Item Value Reference Range Comments POC-GLUCOSE METER (BEAKER) 168 mg/dL 70-[address] [facility] [address] [facility] (test pabo=7704) [facility] [address] CBC (HEMOGRAM ONLY)2018-12-20 07:02:00 Test Item Value Reference Range Comments WHITE BLOOD CELL COUNT (BEAKER) (test xted=408) 4.7 K/ L 3.5-10.5 RED BLOOD CELL COUNT (BEAKER) (test qjri=587) 4.09 M/ L 4.63-6.08 HEMOGLOBIN (BEAKER) (test uotx=863) 8.1 GM/DL 13.7-17.5 HEMATOCRIT (BEAKER) (test qnfz=314) 28.3 % 40.1-51.0 MEAN CORPUSCULAR VOLUME (BEAKER) (test frhq=156) 69.2 fL 79.0-92.2 MEAN CORPUSCULAR HEMOGLOBIN (BEAKER) (test 19.8 pg 25.7-32.2 ibob=298) MEAN CORPUSCULAR HEMOGLOBIN CONC (BEAKER) (test 28.6 GM/DL 32.3-36.5 dzdp=886) RED CELL DISTRIBUTION WIDTH (BEAKER) (test 21.8 % 11.6-14.4 kdhx=878) PLATELET COUNT (BEAKER) (test vzrt=910) 121 K/CU MM 150-450 MEAN PLATELET VOLUME (BEAKER) (test uakk=465) 10.6 fL 9.4-12.4 NUCLEATED RED BLOOD CELLS (BEAKER) (test 0 /100 WBC 0-0 pavr=631) CALCIUM, [id number] 06:36:00 Test Item Value Reference Range Comments CALCIUM IONIZED (BEAKER) (test ijhj=447) 1.07 mmol/L 1.12-1.27 PH, BLOOD (BEAKER) (test amhw=2792) 7.41 HEPATIC FUNCTION [id number] 06:32:00 Test Item Value Reference Range Comments TOTAL PROTEIN (BEAKER) (test lrpa=377) 6.4 gm/dL 6.0-8.3 ALBUMIN (BEAKER) (test xjue=1363) 2.6 g/dL 3.5-5.0 BILIRUBIN TOTAL (BEAKER) (test prfp=731) 0.6 mg/dL 0.2-1.2 BILIRUBIN DIRECT (BEAKER) (test ainj=164) 0.4 mg/dL 0.1-0.5 ALKALINE PHOSPHATASE (BEAKER) (test fcdt=695) 127 U/L 40-150 AST (SGOT) (BEAKER) (test txyw=875) 54 U/L 5-34 ALT (SGPT) (BEAKER) (test avyi=868) 22 U/L 6-55 BASIC METABOLIC [id number] 06:32:00 Test Item Value Reference Range Comments SODIUM (BEAKER) (test 138 meq/L 136-145 xjrg=774) POTASSIUM (BEAKER) (test 3.8 meq/L 3.5-5.1 irnn=216) CHLORIDE (BEAKER) (test 104 meq/L 98-107 ythu=802) CO2 (BEAKER) (test 26 meq/L 22-29 fkee=849) BLOOD UREA NITROGEN 8 mg/dL 7-21 (BEAKER) (test xfun=615) CREATININE (BEAKER) (test 0.85 mg/dL 0.57-1.25 svdt=383) GLUCOSE RANDOM (BEAKER) 167 mg/dL 70-105 (test qrfm=746) CALCIUM (BEAKER) (test 8.3 mg/dL 8.4-10.2 vnqw=258) EGFR (BEAKER) (test 94 mL/min/1.73 sq m ESTIMATED GFR IS NOT iyiq=5838) ACCURATE CREATININE CLEARANCE IN PREDICTING GLOMERULAR FILTRATION RATE. ESTIMATED GFR IS NOT APPLICABLE FOR DIALYSIS PATIENTS. POCT-GLUCOSE [id number] 23:08:00 Test Item Value Reference Range Comments POC-GLUCOSE METER (BEAKER) 284 mg/dL 70-[address] [facility] [address] [facility] (test wyqt=8035) [facility] [address] POCT-GLUCOSE [id number] 20:20:00 Test Item Value Reference Range Comments POC-GLUCOSE METER (BEAKER) 185 mg/dL 70-[address] [facility] [address] (test grgt=3152) [facility] [address] BLOOD GAS, [id number] 20:05:00 Test Item Value Reference Range Comments PH ARTERIAL (BEAKER) (test qvyi=238) 7.48 7.35-7.45 PCO2 ARTERIAL (BEAKER) (test apea=529) 38 mmHg 35-45 PO2 ARTERIAL (BEAKER) (test azqo=100) 83 mmHg 80-90 O2 SATURATION ARTERIAL (BEAKER) (test koxf=724) 97.1 % 96.0-97.0 HCO3 ARTERIAL (BEAKER) (test zrnz=177) 28 mmol/L 21-29 BASE EXCESS ARTERIAL (BEAKER) (test dnvj=956) 4.0 mmol/L -2.0-3.0 PATIENT TEMPERATURE (BEAKER) (test ifpm=6839) 36.3 C FIO2 (BEAKER) (test qicj=3964) 21.0 % HEPATITIS B SURFACE [id number] 19:10:00 Test Item Value Reference Range Comments HEPATITIS B SURFACE ANTIBODY (BEAKER) (test < mIU/mL <8.0 aifl=318) VITAMIN D, [id number] 19:08:00 Test Item Value Reference Range Comments VITAMIN D 25-OH (BEAKER) (test jclq=8359) 6.6 ng/mL 6.6-49.9 Effective 07/04/2017: Reference Range ChangeNew: 6.6-49.9 ng/mL Previous: 13.0 -47.8 ng/mLRecommended Vitamin D Target Range: 30.0-40.0 ng/mLCARCINOEMBRYONIC ANTIGEN (CEA)2018-12-19 19:07:00 Test Item Value Reference Range Comments CARCINOEMBRYONIC ANTIGEN (BEAKER) (test gxry=144) 1.9 ng/mL 0.0-5.0 HEPATITIS B SURFACE [id number] 19:07:00 Test Item Value Reference Range Comments HEPATITIS B SURFACE ANTIGEN (2) (BEAKER) (test Nonreactive Nonreactive nkel=3596) HEPATITIS B CORE ANTIBODY, [id number] 19:07:00 Test Item Value Reference Range Comments HEPATITIS B CORE IGM ANTIBODY (BEAKER) (test Nonreactive Nonreactive bxvw=344) HEPATITIS A ANTIBODY, [id number] 19:07:00 Test Item Value Reference Range Comments HEPATITIS A IGM ANTIBODY (BEAKER) (test Nonreactive Nonreactive advn=755) [id number] 18:59:00 Test Item Value Reference Range Comments PROSTATE SPECIFIC ANTIGEN (BEAKER) (test gdce=627) 0.5 ng/mL 0.0-4.0 HIV-1 ANTIGEN WITH HIV-1/2 [id number] 18:59:00 Test Item Value Reference Range Comments HIV-1 ANTIGEN WITH HIV 1\T\2 ANTIBODY (2) Nonreactive Nonreactive (BEAKER) (test zefu=1627) [id number] 18:58:00 Test Item Value Reference Range Comments TRANSFERRIN (BEAKER) (test lurv=553) 288 mg/dL 174-382 [id number] 18:22:00 Test Item Value Reference Range Comments THYROID STIMULATING HORMONE (BEAKER) (test 5.24 uIU/mL 0.35-4.94 spmr=479) [id number] 18:19:00 Test Item Value Reference Range Comments T4 TOTAL (BEAKER) (test cqnc=362) 6.9 ug/dL 4.9-11.7 URIC [id number] 18:01:00 Test Item Value Reference Range Comments URIC ACID (BEAKER) (test qvul=559) 4.7 mg/dL 2.6-7.2 [id number] 18:01:00 Test Item Value Reference Range Comments MAGNESIUM (BEAKER) (test fegd=306) 1.7 mg/dL 1.6-2.6 [id number] 18:01:00 Test Item Value Reference Range Comments PHOSPHORUS (BEAKER) (test hfnb=458) 2.6 mg/dL 2.3-4.7 LIPID [id number] 18:01:00 Test Item Value Reference Range Comments TRIGLYCERIDES (BEAKER) (test nbxp=545) 47 mg/dL CHOLESTEROL (BEAKER) (test flhd=160) 104 mg/dL HDL CHOLESTEROL (BEAKER) (test frsp=857) 33 mg/dL LDL CHOLESTEROL CALCULATED (BEAKER) (test 62 mg/dL zqzl=947) Triglyceride Reference Range: Low Risk <150 Borderline 150- 199 High Risk 200-499 Very High Risk >=500Cholesterol Reference Range: Low Risk <200 Borderline 200-239 High Risk > 240HDL Cholesterol Reference Range: Low Risk >=60 High Risk <40LDL Cholesterol Reference Range: Optimal <100 Near Optimal 100-129 Borderline 130-159 High 160-189 Very High >=190GAMMA GLUTAMYL TRANSFERASE (GGT)2018-12-19 18:01:00 Test Item Value Reference Range Comments GAMMA GLUTAMYL TRANSFERASE (BEAKER) (test piln=774) 24 U/L 9-64 [id number] 18:00:00 Test Item Value Reference Range Comments ETHANOL (BEAKER) (test agox=547) < mg/dL <=10 [id number] 12:48:00 Test Item Value Reference Range Comments D-DIMER QUANTITATIVE (BEAKER) (test myro=115) 6.75 MG/L FEU <0.50 Intended Use: The D-Dimer Assay can be used to aid in the diagnosis of Deep Vein Thrombosis (DVT) and Pulmonary Embolism Disease (PED).In patients with low pre-test probability, various studies concerning STA Liatest D-dimer test have reported that with a cutoff value of 0.50 MG/L FEU, the Negative Predictive Value (NPV) regarding the exclusion of thrombosis is within 95-100% range.[id number] 12:41:00 Test Item Value Reference Range Comments PARTIAL THROMBOPLASTIN TIME (BEAKER) (test 35.4 seconds 22.5-36.0 yzvk=655) PROTHROMBIN TIME/[id number] 12:39:00 Test Item Value Reference Range Comments PROTIME (BEAKER) (test fmzm=769) 14.9 seconds 11.7-14.7 INR (BEAKER) (test mmuy=242) 1.2 <=5.9 RECOMMENDED COUMADIN/WARFARIN INR THERAPY RANGESSTANDARD DOSE: 2.0 - 3.0 Includes: PROPHYLAXIS forvenous thrombosis, systemic embolization; TREATMENT for venous thrombosis and/or pulmonary embolus.HIGH RISK: Target INR is 2.5-3.5 for patients with mechanical heart valves.POCT-GLUCOSE [id number] 11:36:00 Test Item Value Reference Range Comments POC-GLUCOSE METER (BEAKER) 267 mg/dL 70-110 TESTED AT [place] [id number] [facility] (test oqsi=7389) [facility] [address] POCT-GLUCOSE [id number] 10:02:00 Test Item Value Reference Range Comments POC-GLUCOSE METER (BEAKER) 249 mg/dL 70-110 TESTED AT [address] (test eyjq=9670) [facility] [address] MISCELLANEOUS LAB [id number] 07:59:00 Test Item Value Reference Range Comments SCAN RESULT (test yafs=[id number]) POCT-GLUCOSE [id number] 07:50:00 Test Item Value Reference Range Comments POC-GLUCOSE METER (BEAKER) 228 mg/dL 70-110 TESTED AT [address] (test cmbi=3063) [place] [id number] HEPATIC FUNCTION [id number] 06:21:00 Test Item Value Reference Range Comments TOTAL PROTEIN (BEAKER) (test ayde=650) 6.8 gm/dL 6.0-8.3 ALBUMIN (BEAKER) (test jodm=6611) 2.8 g/dL 3.5-5.0 BILIRUBIN TOTAL (BEAKER) (test fgaq=691) 0.9 mg/dL 0.2-1.2 BILIRUBIN DIRECT (BEAKER) (test rvze=517) 0.5 mg/dL 0.1-0.5 ALKALINE PHOSPHATASE (BEAKER) (test vkut=065) 117 U/L 40-150 AST (SGOT) (BEAKER) (test houk=025) 47 U/L 5-34 ALT (SGPT) (BEAKER) (test ejwh=556) 18 U/L 6-55 BASIC METABOLIC [id number] 06:21:00 Test Item Value Reference Range Comments SODIUM (BEAKER) (test 136 meq/L 136-145 nwrf=005) POTASSIUM (BEAKER) (test 3.8 meq/L 3.5-5.1 bxfc=609) CHLORIDE (BEAKER) (test 104 meq/L 98-107 viev=684) CO2 (BEAKER) (test 26 meq/L 22-29 gfqb=415) BLOOD UREA NITROGEN 7 mg/dL 7-21 (BEAKER) (test vgbd=943) CREATININE (BEAKER) (test 0.84 mg/dL 0.57-1.25 ceel=534) GLUCOSE RANDOM (BEAKER) 152 mg/dL 70-105 (test oaeo=675) CALCIUM (BEAKER) (test 8.4 mg/dL 8.4-10.2 yvrh=478) EGFR (BEAKER) (test 95 mL/min/1.73 sq m ESTIMATED GFR IS NOT umze=8337) ACCURATE CREATININE CLEARANCE IN PREDICTING GLOMERULAR FILTRATION RATE. ESTIMATED GFR IS NOT APPLICABLE FOR DIALYSIS PATIENTS. CBC (HEMOGRAM ONLY)2018-12-19 06:02:00 Test Item Value Reference Range Comments WHITE BLOOD CELL COUNT (BEAKER) (test xqbv=008) 5.3 K/ L 3.5-10.5 RED BLOOD CELL COUNT (BEAKER) (test ytyv=633) 4.18 M/ L 4.63-6.08 HEMOGLOBIN (BEAKER) (test fnpc=143) 8.2 GM/DL 13.7-17.5 HEMATOCRIT (BEAKER) (test xbmh=126) 28.9 % 40.1-51.0 MEAN CORPUSCULAR VOLUME (BEAKER) (test vbqz=841) 69.1 fL 79.0-92.2 MEAN CORPUSCULAR HEMOGLOBIN (BEAKER) (test 19.6 pg 25.7-32.2 xbss=064) MEAN CORPUSCULAR HEMOGLOBIN CONC (BEAKER) (test 28.4 GM/DL 32.3-36.5 yfkk=296) RED CELL DISTRIBUTION WIDTH (BEAKER) (test 21.5 % 11.6-14.4 orlv=796) PLATELET COUNT (BEAKER) (test awai=714) 130 K/CU MM 150-450 MEAN PLATELET VOLUME (BEAKER) (test xxoc=618) 9.9 fL 9.4-12.4 NUCLEATED RED BLOOD CELLS (BEAKER) (test 0 /100 WBC 0-0 aifa=397) POCT-GLUCOSE [id number] 21:21:00 Test Item Value Reference Range Comments POC-GLUCOSE METER (BEAKER) 213 mg/dL 70-[address] [facility] [address] [facility] (test lqoy=2249) [facility] [address] MR, ABDOMEN, [id number] 19:09:00Addendum BeginsREPORT STATUS:A Utility Gelatin Maker error in the third 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 It should read: Questionable small nonocclusive thrombus in the high SUPERIOR mesenteric vein. Signed: Roe Solorzano MDReport Verified Date/Time: 12/18/2018 19:09:20 Reading Location: [address] Body Reading RoomAddendum EndsFINAL REPORT TECHNIQUE: MRI of the abdomen WITHOUT [...] without corresponding T2 signal abnormality, washout, or capsuleBILIARY: Gallbladder is unremarkable. No biliary ductal dilatation or filling defect.SPLEEN: The spleen is enlarged, measuring 17.2 cm in the craniocaudal dimension.PANCREAS: No focal masses or ductal dilatation. ADRENALS: No adrenal nodules.KIDNEYS/URETERS: No hydronephrosis or solid mass lesions. PERITONEUM/RETROPERITONEUM: Small volume ascites.LYMPH NODES: No lymphadenopathy.VESSELS: Nonocclusive thrombus in the main portal vein, which measures 1.8 cm in diameter. Questionable small nonocclusive thrombus in the high superior mesenteric vein. Recanalized umbilical vein. Esophageal varices. Patent hepatic veins. Abdominal aorta is normal in caliber. GI TRACT: No distention or wall thickening. BONES AND SOFT TISSUES: Unremarkable. IMPRESSION:Cirrhosis with portal hypertension and small volume ascites. 1.3 cm lesion in the hepatic dome, consistent with hepatocellular carcinoma. Additional subcentimeter arterially enhancing foci in the liver are indeterminate. Nonocclusive thrombus in the main portal vein. Questionable small nonocclusive thrombus in the high-speed mesenteric vein. RECOMMENDATION:Follow-up abdomen MRI with and without intravenous contrast ( liver protocol) may be obtained in 3 months to reassess above findings. Signed: Roe Solorzano MDReport Verified Date/Time: 12/17/2018 10:57:37 Reading Location: [facility] C013 CT Body Reading Room POCT-GLUCOSE [id number] 17:47:00 Test Item Value Reference Range Comments POC-GLUCOSE METER (BEAKER) 199 mg/dL 70-110 TESTED AT [address] (test pxzf=6988) [place] [address] POCT-GLUCOSE [id number] 12:02:00 Test Item Value Reference Range Comments POC-GLUCOSE METER (BEAKER) 301 mg/dL 70-110 TESTED AT [address] (test bubd=3263) [place] [address] HEPATITIS C PCR, [id number] 09:48:00 Test Item Value Reference Range Comments HCV NUMERIC RESULT (BEAKER) (test kgfx=4045) [id number] IU/mL <15 This test uses a Real-Time Polymerase Chain Reaction (RT-PCR) methodology and was performed using MAJOR Ampliprep/MAJOR TaqMan HCV test kit version 2.0 ( [employer]).Reportable range for this assay is 15 - 100,000, 000 IU per mL (1.18 - 8.00 Log IU/mL).POCT-GLUCOSE [id number] 09:18:00 Test Item Value Reference Range Comments POC-GLUCOSE METER (BEAKER) 284 mg/dL 70-110 TESTED AT [address] (test wcvw=2617) [place] [address] HEPATIC FUNCTION [id number] 07:08:00 Test Item Value Reference Range Comments TOTAL PROTEIN (BEAKER) (test dvwe=006) 6.5 gm/dL 6.0-8.3 ALBUMIN (BEAKER) (test objz=0437) 2.7 g/dL 3.5-5.0 BILIRUBIN TOTAL (BEAKER) (test zwlc=302) 0.9 mg/dL 0.2-1.2 BILIRUBIN DIRECT (BEAKER) (test xnwu=112) 0.5 mg/dL 0.1-0.5 ALKALINE PHOSPHATASE (BEAKER) (test bobb=726) 103 U/L 40-150 AST (SGOT) (BEAKER) (test hzmc=160) 40 U/L 5-34 ALT (SGPT) (BEAKER) (test tuwz=585) 16 U/L 6-55 BASIC METABOLIC [id number] 07:08:00 Test Item Value Reference Range Comments SODIUM (BEAKER) (test 135 meq/L 136-145 qizx=166) POTASSIUM (BEAKER) (test 4.0 meq/L 3.5-5.1 wqsd=814) CHLORIDE (BEAKER) (test 105 meq/L 98-107 vtxu=860) CO2 (BEAKER) (test 25 meq/L 22-29 nlyz=776) BLOOD UREA NITROGEN 9 mg/dL 7-21 (BEAKER) (test ohsg=781) CREATININE (BEAKER) (test 0.88 mg/dL 0.57-1.25 froi=623) GLUCOSE RANDOM (BEAKER) 175 mg/dL 70-105 (test ienu=070) CALCIUM (BEAKER) (test 8.2 mg/dL 8.4-10.2 pixn=416) EGFR (BEAKER) (test 90 mL/min/1.73 sq m ESTIMATED GFR IS NOT fdyk=8215) ACCURATE CREATININE CLEARANCE IN PREDICTING GLOMERULAR FILTRATION RATE. ESTIMATED GFR IS NOT APPLICABLE FOR DIALYSIS PATIENTS. CBC (HEMOGRAM ONLY)2018-12-18 06:39:00 Test Item Value Reference Range Comments WHITE BLOOD CELL COUNT (BEAKER) (test sqql=409) 6.9 K/ L 3.5-10.5 RED BLOOD CELL COUNT (BEAKER) (test uyxa=659) 4.15 M/ L 4.63-6.08 HEMOGLOBIN (BEAKER) (test lhpp=938) 8.0 GM/DL 13.7-17.5 HEMATOCRIT (BEAKER) (test tkle=794) 28.7 % 40.1-51.0 MEAN CORPUSCULAR VOLUME (BEAKER) (test yjnq=572) 69.2 fL 79.0-92.2 MEAN CORPUSCULAR HEMOGLOBIN (BEAKER) (test 19.3 pg 25.7-32.2 xwvh=079) MEAN CORPUSCULAR HEMOGLOBIN CONC (BEAKER) (test 27.9 GM/DL 32.3-36.5 nkzm=952) RED CELL DISTRIBUTION WIDTH (BEAKER) (test 21.3 % 11.6-14.4 fvhu=576) PLATELET COUNT (BEAKER) (test upnp=809) 122 K/CU MM 150-450 NUCLEATED RED BLOOD CELLS (BEAKER) (test 0 /100 WBC 0-0 pjuk=353) POCT-GLUCOSE [id number] 22:48:00 Test Item Value Reference Range Comments POC-GLUCOSE METER (BEAKER) 237 mg/dL 70-[address] [facility] [address] [facility] (test eyoe=9567) [facility] [address] ANTI-NUCLEAR ANTIBODY (WILLOW)2018-12-17 11:52:00 Test Item Value Reference Range Comments ANTI-NUCLEAR ANTIBODY (WILLOW) (BEAKER) (test Positive Negative tzrb=045) Test performed by IFA method.WILLOW TITER AND [id number] 11:52:00 Test Item Value Reference Range Comments WILLOW TITER (BEAKER) (test ckyh=8201) :160 WILLOW PATTERN (BEAKER) (test gjoc=1160) Speckled [id number] 05:45:00 Test Item Value Reference Range Comments MAGNESIUM (BEAKER) (test 2.1 mg/dL 1.6-2.6 Specimen slightly hemolyzed snmx=767) [id number] 05:45:00 Test Item Value Reference Range Comments PHOSPHORUS (BEAKER) (test 3.0 mg/dL 2.3-4.7 Specimen slightly hemolyzed iocv=847) BASIC METABOLIC [id number] 05:45:00 Test Item Value Reference Range Comments SODIUM (BEAKER) (test 136 meq/L 136-145 ndfe=171) POTASSIUM (BEAKER) (test 4.3 meq/L 3.5-5.1 Specimen slightly rvoj=829) hemolyzed CHLORIDE (BEAKER) (test 106 meq/L 98-107 qhwd=359) CO2 (BEAKER) (test 25 meq/L 22-29 ojsi=918) BLOOD UREA NITROGEN 15 mg/dL 7-21 (BEAKER) (test vtag=219) CREATININE (BEAKER) (test 1.06 mg/dL 0.57-1.25 Specimen slightly zcwx=923) hemolyzed GLUCOSE RANDOM (BEAKER) 222 mg/dL 70-105 (test wvfn=021) CALCIUM (BEAKER) (test 8.1 mg/dL 8.4-10.2 fldw=227) EGFR (BEAKER) (test 73 mL/min/1.73 sq m ESTIMATED GFR IS NOT lulj=1031) ACCURATE CREATININE CLEARANCE IN PREDICTING GLOMERULAR FILTRATION RATE. ESTIMATED GFR IS NOT APPLICABLE FOR DIALYSIS PATIENTS. HEPATIC FUNCTION [id number] 05:45:00 Test Item Value Reference Range Comments TOTAL PROTEIN (BEAKER) (test 6.6 gm/dL 6.0-8.3 Specimen slightly hemolyzed nflk=548) ALBUMIN (BEAKER) (test 2.6 g/dL 3.5-5.0 Specimen slightly hemolyzed cmcf=5617) BILIRUBIN TOTAL (BEAKER) (test 0.9 mg/dL 0.2-1.2 Specimen slightly hemolyzed hlkt=761) BILIRUBIN DIRECT (BEAKER) (test 0.5 mg/dL 0.1-0.5 Specimen slightly hemolyzed lxax=914) ALKALINE PHOSPHATASE (BEAKER) 109 U/L 40-150 (test hamh=912) AST (SGOT) (BEAKER) (test 53 U/L 5-34 Specimen slightly hemolyzed eezk=745) ALT (SGPT) (BEAKER) (test 21 U/L 6-55 Specimen slightly hemolyzed gvyd=691) CBC W/PLT COUNT & AUTO [id number] 04:48:00 Test Item Value Reference Range Comments WHITE BLOOD CELL COUNT 8.1 K/ L 3.5-10.5 (BEAKER) (test goeq=064) RED BLOOD CELL COUNT (BEAKER) 4.33 M/ L 4.63-6.08 (test dnjh=638) HEMOGLOBIN (BEAKER) (test 8.3 GM/DL 13.7-17.5 hufk=035) HEMATOCRIT (BEAKER) (test 29.9 % 40.1-51.0 ozvo=848) MEAN CORPUSCULAR VOLUME 69.1 fL 79.0-92.2 (BEAKER) (test uldr=987) MEAN CORPUSCULAR HEMOGLOBIN 19.2 pg 25.7-32.2 (BEAKER) (test yjqi=644) MEAN CORPUSCULAR HEMOGLOBIN 27.8 GM/DL 32.3-36.5 CONC (BEAKER) (test wmkj=713) RED CELL DISTRIBUTION WIDTH 21.1 % 11.6-14.4 (BEAKER) (test khry=587) PLATELET COUNT (BEAKER) (test 141 K/CU MM 150-450 cxnr=951) MEAN PLATELET VOLUME (BEAKER) fL 9.4-12.4 Unable to report due to (test tzjs=781) abnormal Platelet population distribution. NUCLEATED RED BLOOD CELLS 0 /100 WBC 0-0 (BEAKER) (test bcon=071) NEUTROPHILS RELATIVE PERCENT 70 % (BEAKER) (test rosm=074) LYMPHOCYTES RELATIVE PERCENT 15 % (BEAKER) (test sbsk=918) MONOCYTES RELATIVE PERCENT 9 % (BEAKER) (test fpfv=524) EOSINOPHILS RELATIVE PERCENT 6 % (BEAKER) (test brzy=701) BASOPHILS RELATIVE PERCENT 1 % (BEAKER) (test ayfp=282) NEUTROPHILS ABSOLUTE COUNT 5.60 K/ L 1.78-5.38 (BEAKER) (test xhbc=192) LYMPHOCYTES ABSOLUTE COUNT 1.18 K/ L 1.32-3.57 (BEAKER) (test acif=960) MONOCYTES ABSOLUTE COUNT 0.72 K/ L 0.30-0.82 (BEAKER) (test nbgl=551) EOSINOPHILS ABSOLUTE COUNT 0.46 K/ L 0.04-0.54 (BEAKER) (test eznn=065) BASOPHILS ABSOLUTE COUNT 0.08 K/ L 0.01-0.08 (BEAKER) (test myze=299) IMMATURE GRANULOCYTES-RELATIVE 0 % 0-1 PERCENT (BEAKER) (test bdkx=0126) HEPATITIS C [id number] 21:49:00 Test Item Value Reference Range Comments HEPATITIS C ANTIBODY (BEAKER) (test yydh=408) Reactive Nonreactive HEPATITIS A ANTIBODY, [id number] 21:49:00 Test Item Value Reference Range Comments HEPATITIS A IGG ANTIBODY (BEAKER) (test fywg=6034) Reactive Nonreactive ALPHA FETOPROTEIN (AFP), TUMOR [id number] 21:48:00 Test Item Value Reference Range Comments ALPHA-FETOPROTEIN (BEAKER) (test qsml=3320) 5.3 ng/mL <10.0 HEPATITIS B CORE ANTIBODY, [id number] 21:48:00 Test Item Value Reference Range Comments HEPATITIS B CORE TOTAL ANTIBODY (BEAKER) (test Nonreactive Nonreactive bcdy=174) [id number] 21:13:00 Test Item Value Reference Range Comments FERRITIN (BEAKER) (test krhp=080) 17 ng/mL 5-275 [id number] 20:56:00 Test Item Value Reference Range Comments ALPHA-1 ANTITRYPSIN (BEAKER) 137.60 mg/dL 90.00-200.00 Specimen slightly hemolyzed (test ooiy=252) IRON, TIBC, % SAT. (WITHOUT FERRITIN)2018-12-16 20:55:00 Test Item Value Reference Range Comments IRON (BEAKER) (test kqyr=779) 56.0 ug/dL 40.0-160.0 TOTAL IRON BINDING CAPACITY (BEAKER) (test 360 ug/dL 250-450 qnwu=502) IRON % SATURATION (2) (BEAKER) (test xese=7307) 16 % 20-55 [id number] 20:52:00 Test Item Value Reference Range Comments ETHANOL (BEAKER) (test yemb=943) < mg/dL <=10 HEMOGLOBIN AND [id number] 20:37:00 Test Item Value Reference Range Comments HEMOGLOBIN (BEAKER) (test oluy=557) 9.2 GM/DL 13.7-17.5 HEMATOCRIT (BEAKER) (test mrik=222) 32.6 % 40.1-51.0 U/S, ABDOMINAL, WITH [id number] 18:22:00Reason for exam:->liver cirrhosis, variceal bleed, please also do portal vein doppler, ? portal vein thrombosis Should this be performed at the bedside?->YesFINAL REPORT TECHNIQUE: Grayscale ultrasound of the abdomen with color Doppler and spectral Doppler ultrasound of the portal/hepatic vasculature. INDICATION: liver cirrhosis, variceal bleed, please also do portal vein doppler , ? portal vein thrombosis. COMPARISON: None. FINDINGS: LIVER: Smooth liver contour. No focal liver lesions. HEPATIC VASCULATURE: Portal veins are patent with normal waveform and directionality. However, left portal vein was difficult to visualize. Flow velocity in the main portal vein is within normal limits. The hepatic veins and confluence are patent.The main portal vein measures 1.1 cm. The hepatic arterial resistive indices are increased and measure 0.83 in the proper hepatic artery and 0.76 in the left hepatic artery. The right hepatic artery resistive index is 0.68. BILIARY:Gallbladder: No gallstones or sludge. The mild gallbladder wall thickening is likely due to the adjacent liver disease. No distention. Negative sonographic Gibbs sign.Common bile duct measures 0.5 cm, within normal [...] and small volume ascites. Signed: Toni Gorman MDReport Verified Date/Time: 12/16/2018 18:22:50 Reading Location: [facility] [id number] Ultrasound Reading Room [facility] METABOLIC [id number] 12:25:00 Test Item Value Reference Range Comments SODIUM (BEAKER) (test 135 meq/L 136-145 icyk=808) POTASSIUM (BEAKER) (test 4.7 meq/L 3.5-5.1 ixbc=206) CHLORIDE (BEAKER) (test 105 meq/L 98-107 nmgh=616) CO2 (BEAKER) (test 25 meq/L 22-29 kcdk=860) BLOOD UREA NITROGEN 16 mg/dL 7-21 (BEAKER) (test pngc=858) CREATININE (BEAKER) (test 1.01 mg/dL 0.57-1.25 ujjl=048) GLUCOSE RANDOM (BEAKER) 162 mg/dL 70-105 (test kszn=361) CALCIUM (BEAKER) (test 8.1 mg/dL 8.4-10.2 ubqp=254) EGFR (BEAKER) (test 77 mL/min/1.73 sq m ESTIMATED GFR IS NOT hxlk=5725) ACCURATE CREATININE CLEARANCE IN PREDICTING GLOMERULAR FILTRATION RATE. ESTIMATED GFR IS NOT APPLICABLE FOR DIALYSIS PATIENTS. HEMOGLOBIN AND [id number] 12:06:00 Test Item Value Reference Range Comments HEMOGLOBIN (BEAKER) (test cqaa=446) 8.6 GM/DL 13.7-17.5 HEMATOCRIT (BEAKER) (test nynx=436) 31.4 % 40.1-51.0 HEMOGLOBIN AND [id number] 08:52:00 Test Item Value Reference Range Comments HEMOGLOBIN (BEAKER) (test ousp=196) 8.7 GM/DL 13.7-17.5 HEMATOCRIT (BEAKER) (test bxlr=843) 30.9 % 40.1-51.0 CALCIUM, [id number] 05:54:00 Test Item Value Reference Range Comments CALCIUM IONIZED (BEAKER) (test flep=288) 1.08 mmol/L 1.12-1.27 PH, BLOOD (BEAKER) (test jcws=2260) 7.34 [id number] 05:50:00 Test Item Value Reference Range Comments PHOSPHORUS (BEAKER) (test kury=610) 3.4 mg/dL 2.3-4.7 [id number] 05:50:00 Test Item Value Reference Range Comments MAGNESIUM (BEAKER) (test wxao=647) 1.6 mg/dL 1.6-2.6 BASIC METABOLIC [id number] 05:50:00 Test Item Value Reference Range Comments SODIUM (BEAKER) (test 138 meq/L 136-145 poge=558) POTASSIUM (BEAKER) (test 5.4 meq/L 3.5-5.1 bcyg=811) CHLORIDE (BEAKER) (test 108 meq/L 98-107 npkw=619) CO2 (BEAKER) (test 22 meq/L 22-29 ijor=948) BLOOD UREA NITROGEN 14 mg/dL 7-21 (BEAKER) (test ovam=607) CREATININE (BEAKER) (test 1.00 mg/dL 0.57-1.25 jraj=916) GLUCOSE RANDOM (BEAKER) 144 mg/dL 70-105 (test yxga=521) CALCIUM (BEAKER) (test 8.1 mg/dL 8.4-10.2 vuxx=732) EGFR (BEAKER) (test 78 mL/min/1.73 sq m ESTIMATED GFR IS NOT pnto=0055) ACCURATE CREATININE CLEARANCE IN PREDICTING GLOMERULAR FILTRATION RATE. ESTIMATED GFR IS NOT APPLICABLE FOR DIALYSIS PATIENTS. CBC W/PLT COUNT & AUTO [id number] 05:44:00 Test Item Value Reference Range Comments WHITE BLOOD CELL COUNT 7.2 K/ L 3.5-10.5 (BEAKER) (test cjch=294) RED BLOOD CELL COUNT (BEAKER) 4.48 M/ L 4.63-6.08 (test zmye=301) HEMOGLOBIN (BEAKER) (test 8.7 GM/DL 13.7-17.5 txhb=352) HEMATOCRIT (BEAKER) (test 31.4 % 40.1-51.0 szuu=529) MEAN CORPUSCULAR VOLUME 70.1 fL 79.0-92.2 (BEAKER) (test uejk=035) MEAN CORPUSCULAR HEMOGLOBIN 19.4 pg 25.7-32.2 (BEAKER) (test mpah=228) MEAN CORPUSCULAR HEMOGLOBIN 27.7 GM/DL 32.3-36.5 CONC (BEAKER) (test bpqf=062) RED CELL DISTRIBUTION WIDTH 21.0 % 11.6-14.4 (BEAKER) (test csbh=090) PLATELET COUNT (BEAKER) (test 135 K/CU MM 150-450 qlmd=478) MEAN PLATELET VOLUME (BEAKER) fL 9.4-12.4 Unable to report due to (test aivf=374) abnormal Platelet population distribution. NUCLEATED RED BLOOD CELLS 0 /100 WBC 0-0 (BEAKER) (test wvfv=268) NEUTROPHILS RELATIVE PERCENT 72 % (BEAKER) (test mvjd=830) LYMPHOCYTES RELATIVE PERCENT 12 % (BEAKER) (test xvxz=644) MONOCYTES RELATIVE PERCENT 11 % (BEAKER) (test hruv=104) EOSINOPHILS RELATIVE PERCENT 4 % (BEAKER) (test vfkb=880) BASOPHILS RELATIVE PERCENT 1 % (BEAKER) (test gsyz=440) NEUTROPHILS ABSOLUTE COUNT 5.15 K/ L 1.78-5.38 (BEAKER) (test qjxa=265) LYMPHOCYTES ABSOLUTE COUNT 0.89 K/ L 1.32-3.57 (BEAKER) (test xzli=813) MONOCYTES ABSOLUTE COUNT 0.76 K/ L 0.30-0.82 (BEAKER) (test erry=054) EOSINOPHILS ABSOLUTE COUNT 0.29 K/ L 0.04-0.54 (BEAKER) (test ggrx=154) BASOPHILS ABSOLUTE COUNT 0.06 K/ L 0.01-0.08 (BEAKER) (test bemo=889) IMMATURE GRANULOCYTES-RELATIVE 0 % 0-1 PERCENT (BEAKER) (test ncrq=0595) HEMOGLOBIN AND [id number] 00:02:00 Test Item Value Reference Range Comments HEMOGLOBIN (BEAKER) (test uome=154) 7.8 GM/DL 13.7-17.5 HEMATOCRIT (BEAKER) (test bhcn=377) 28.0 % 40.1-51.0 POCT-GLUCOSE [id number] 23:24:00 Test Item Value Reference Range Comments POC-GLUCOSE METER (BEAKER) 168 mg/dL 70-[address] [facility] [address] (test wdkv=4897) [facility] [address] RAD, CHEST, 1 VIEW, NON [id number] 23:07:00Reason for exam:->NG tube placementShould this be performed at the bedside?->YesFINAL REPORT Chest one view. Clinical history: NG tube placement Comparison: Chest radiograph 12/15/2018, 6:06 PM Technique: A single frontal view of the chest was obtained. Findings/impression:There is an endotracheal tube in satisfactory position. There is a feeding tube withtip in the distal esophagus and requires advancement.The cardiomediastinal contours are stable. There are low lung volumes. There is a retrocardiac opacity which may represent atelectasis and/or pneumonia. There is no pleural effusion or pneumothorax. There is mild gaseous distention of the stomach. Signed: Elmer Haque MDReport Verified Date/Time: 12/15/2018 23:07:08 Reading Location: [place] [id number] CT Body Reading Room HEMOGLOBIN AND [id number] 20:12:00 Test Item Value Reference Range Comments HEMOGLOBIN (BEAKER) (test mcen=688) 7.4 GM/DL 13.7-17.5 HEMATOCRIT (BEAKER) (test ucip=905) 26.7 % 40.1-51.0 RAD, CHEST, 1 VIEW, NON [id number] 18:43:00Reason for exam:->s/p intubationShould this be performed at the bedside?->YesFINAL REPORT Clinical History: Status post intubation Comparison Study: None Findings: The cardiac silhouette is enlarged. An endotracheal tube has been inserted, the tip approximately 5.1 cm above the thang. Mild interstitial pulmonary markings are seen. The pleural spaces are clear. No significant bony or soft tissue abnormalities are seen. Impression: Cardiomegaly with mild interstitial pulmonary markings. Intubation. Signed: Jorge Mtz MDReport Verified Date/Time: 12/15/2018 18:43:24 Reading Location: [facility] B1 [id number] Ortho Consult Reading Room Electronically signed by: JORGE MTZ M.D. on 06:43 PMBASI METABOLIC [id number] 14:38:00 Test Item Value Reference Range Comments SODIUM (BEAKER) (test 137 meq/L 136-145 xvof=032) POTASSIUM (BEAKER) (test 4.8 meq/L 3.5-5.1 Specimen slightly lqnc=713) hemolyzed CHLORIDE (BEAKER) (test 105 meq/L 98-107 oafw=419) CO2 (BEAKER) (test 25 meq/L 22-29 rvhc=135) BLOOD UREA NITROGEN 11 mg/dL 7-21 (BEAKER) (test orye=321) CREATININE (BEAKER) (test 0.84 mg/dL 0.57-1.25 Specimen slightly gkxi=464) hemolyzed GLUCOSE RANDOM (BEAKER) 114 mg/dL 70-105 (test ncse=500) CALCIUM (BEAKER) (test 8.5 mg/dL 8.4-10.2 thpk=554) EGFR (BEAKER) (test 95 mL/min/1.73 sq m ESTIMATED GFR IS NOT wdlp=0970) ACCURATE CREATININE CLEARANCE IN PREDICTING GLOMERULAR FILTRATION RATE. ESTIMATED GFR IS NOT APPLICABLE FOR DIALYSIS PATIENTS. Specimen slightly ictericCOMPREHENSIVE METABOLIC [id number] 14:38:00 Test Item Value Reference Range Comments TOTAL PROTEIN (BEAKER) 7.2 gm/dL 6.0-8.3 Specimen slightly (test yznr=297) hemolyzed ALBUMIN (BEAKER) (test 2.9 g/dL 3.5-5.0 Specimen slightly njpx=0093) hemolyzed ALKALINE PHOSPHATASE 125 U/L 40-150 (BEAKER) (test umes=031) BILIRUBIN TOTAL (BEAKER) 2.5 mg/dL 0.2-1.2 Specimen slightly (test oqlw=950) hemolyzed SODIUM (BEAKER) (test 137 meq/L 136-145 edpr=130) POTASSIUM (BEAKER) (test 4.8 meq/L 3.5-5.1 Specimen slightly ljwq=127) hemolyzed CHLORIDE (BEAKER) (test 105 meq/L 98-107 uone=128) CO2 (BEAKER) (test 25 meq/L 22-29 lmjr=375) BLOOD UREA NITROGEN 11 mg/dL 7-21 (BEAKER) (test ggni=023) CREATININE (BEAKER) (test 0.84 mg/dL 0.57-1.25 Specimen slightly eunq=893) hemolyzed GLUCOSE RANDOM (BEAKER) 114 mg/dL 70-105 (test rhrs=491) CALCIUM (BEAKER) (test 8.5 mg/dL 8.4-10.2 jfbt=483) AST (SGOT) (BEAKER) (test 56 U/L 5-34 Specimen slightly xmzx=106) hemolyzed ALT (SGPT) (BEAKER) (test 21 U/L 6-55 Specimen slightly ncef=454) hemolyzed EGFR (BEAKER) (test 95 mL/min/1.73 sq m ESTIMATED GFR IS NOT mjry=9611) ACCURATE CREATININE CLEARANCE IN PREDICTING GLOMERULAR FILTRATION RATE. ESTIMATED GFR IS NOT APPLICABLE FOR DIALYSIS PATIENTS. Specimen slightly ictericCBC (HEMOGRAM ONLY)2018-12-15 14:35:00 Test Item Value Reference Range Comments WHITE BLOOD CELL COUNT (BEAKER) (test nucx=758) 5.6 K/ L 3.5-10.5 RED BLOOD CELL COUNT (BEAKER) (test onwy=245) 4.43 M/ L 4.63-6.08 HEMOGLOBIN (BEAKER) (test zirm=079) 8.5 GM/DL 13.7-17.5 HEMATOCRIT (BEAKER) (test mxij=964) 30.7 % 40.1-51.0 MEAN CORPUSCULAR VOLUME (BEAKER) (test menj=148) 69.3 fL 79.0-92.2 MEAN CORPUSCULAR HEMOGLOBIN (BEAKER) (test 19.2 pg 25.7-32.2 snce=760) MEAN CORPUSCULAR HEMOGLOBIN CONC (BEAKER) (test 27.7 GM/DL 32.3-36.5 nlxx=388) RED CELL DISTRIBUTION WIDTH (BEAKER) (test 20.9 % 11.6-14.4 mqzg=022) PLATELET COUNT (BEAKER) (test zixx=842) 150 K/CU MM 150-450 NUCLEATED RED BLOOD CELLS (BEAKER) (test 0 /100 WBC 0-0 lzbj=313) LACTIC ACID, [id number] 14:34:00 Test Item Value Reference Range Comments LACTATE BLOOD VENOUS (2) (BEAKER) (test 1.4 mmol/L 0.5-2.2 papr=6688) [id number] 14:34:00 Test Item Value Reference Range Comments FIBRINOGEN LEVEL (BEAKER) (test wmzu=947) 164 mg/dl 225-434 PROTHROMBIN TIME/[id number] 14:29:00 Test Item Value Reference Range Comments PROTIME (BEAKER) (test wwqb=725) 17.0 seconds 11.7-14.7 INR (BEAKER) (test jeso=755) 1.4 <=5.9 RECOMMENDED COUMADIN/WARFARIN INR THERAPY RANGESSTANDARD DOSE: 2.0 - 3.0 Includes: PROPHYLAXIS forvenous thrombosis, systemic embolization; TREATMENT for venous thrombosis and/or pulmonary embolus.HIGH RISK: Target INR is 2.5-3.5 for patients with mechanical heart valves.[id number] 14:29:00 Test Item Value Reference Range Comments PARTIAL THROMBOPLASTIN TIME (BEAKER) (test 35.0 seconds 22.5-36.0 znts=467) [id number] 14:29:00 Test Item Value Reference Range Comments PARTIAL THROMBOPLASTIN TIME (BEAKER) (test 38.1 seconds 22.5-36.0 jfdw=517) PROTHROMBIN TIME/[id number] 14:28:00 Test Item Value Reference Range Comments PROTIME (BEAKER) (test gbml=062) 15.4 seconds 11.7-14.7 INR (BEAKER) (test cxws=884) 1.2 <=5.9 RECOMMENDED COUMADIN/WARFARIN INR THERAPY RANGESSTANDARD DOSE: 2.0 - 3.0 Includes: PROPHYLAXIS forvenous thrombosis, systemic embolization; TREATMENT for venous thrombosis and/or pulmonary embolus.HIGH RISK: Target INR is 2.5-3.5 for patients with mechanical heart valves.HEMOGLOBIN AND [id number] 14 :21:00 Test Item Value Reference Range Comments HEMOGLOBIN (BEAKER) (test mvil=326) 8.5 GM/DL 13.7-17.5 HEMATOCRIT (BEAKER) (test oksb=107) 30.7 % 40.1-51.0
[2019-01-18] MEDS ORDERED: ALBUTEROL 2.5 MG/3 ML NEB SOL ONE (19:40)
[2019-01-18] MEDS ORDERED: predniSONE 20 MG TAB ONE (19:40)
--- NOTE | 2019-01-18 20:26 | RAD REPORT ---
EXAM DESCRIPTION: Stephon Lewis (2 Views)01/18/2019 8:05 pm CLINICAL HISTORY: Cough COMPARISON: November 2018 FINDINGS: The lungs appear clear of acute infiltrate. The heart is normal size IMPRESSION: No acute abnormalities displayed
[2019-01-18] MEDS ORDERED: HYDROCODONE/CHLORPHEN 5 ML/OSYR ONE (20:42)
[2019-01-18 21:35] LABS: Absolute Lymphocytes (CBC) 1.6 K/uL (0.7-4.9); Absolute Monocytes 0.9 K/uL (0.1-1.3); Absolute Neutrophil 4.9 K/uL (1.8-8.0); Eosinophils % 6.5 % (0-4.4); Hematocrit 29.9 % (39.6-49.0); Lymphocytes % 20.3 % (15.3-44.8); MPV 9.2 fL (7.6-11.3); Monocytes % 10.8 % (3.3-12.3); RBC Red Blood Cell Count 4.64 M/uL (4.33-5.43)
[2019-01-18 21:49] LABS: Bilirubin Total 1.4 mg/dL (0.2-1.0)
[2019-01-18 21:56] LABS: Anisocytosis 2+; Blood Morphology Comment NOTED (NOT SEEN); Platelet Estimate ADEQ; Urine White Blood Cell Casts OK
[2019-01-18 21:57] LABS: Hypochromasia 1+
--- NOTE | 2019-01-18 22:30 | ER ---
Nurse's Notes [facility] Name: Janusz Morris Jr Age: 53 yrs Sex: Male : 1965 Arrival Date: 01/18/2019 Time: 18:53 Bed 13 Private MD: Tima Estrada Diagnosis: Bronchitis, not specified as acute or chronic Presentation: 01/18 18:56 Presenting complaint: Patient states: cough, SOB, chills for 2-3 days, had TIPS 2 weeks la1 ago. Transition of care: patient was not received from another setting of care. Onset of symptoms was January 18, 2019. Risk Assessment: Do you want to hurt yourself or someone else? Patient reports no desire to harm self or others. Initial Sepsis Screen: Does the patient meet any 2 criteria? No. Patient's initial sepsis screen is negative. Does the patient have a suspected source of infection? No. Patient's initial sepsis screen is negative. Care prior to arrival: None. 18:56 Method Of Arrival: Ambulatory la1 18:56 Acuity: AJ 3 la1 Historical: - Allergies: 18:58 No Known Allergies; la1 - Home Meds: 18:58 furosemide 20 mg Oral tab 1 tab once daily [Active]; glipizide 10 mg Oral tab 1 tab la1 once daily [Active]; lactulose 10 gram/15 mL Oral soln 60 mL 3 times per day [Active]; metformin 1,000 mg Oral tab 1 tab 2 times per day [Active]; pantoprazole 40 mg Oral TbEC 1 tab 2 times per day [Active]; atorvastatin 40 mg oral tab 1 tab once daily [Active]; - PMHx: 18:58 Alcoholism; Cirrhosis; Diabetes - NIDDM; esophageal varices; GI Bleed; Hypertension; la1 - Immunization history:: Adult Immunizations up to date. - Social history:: Smoking status: Patient/guardian denies using tobacco. - Ebola Screening: : No symptoms or risks identified at this time. Screenin:18 Abuse screen: Denies threats or abuse. Denies injuries from another. Nutritional aa1 screening: No deficits noted. Tuberculosis screening: Possible symptoms: cough for more than 2 weeks. Fall Risk None identified. Assessment: 19:18 General: Appears in no apparent distress. comfortable, Behavior is calm, cooperative, aa1 appropriate for age. Pain: Complains of pain in chest Aggravated by cough. Neuro: Level of Consciousness is awake, alert, obeys commands, Oriented to person, place, time, situation, Moves all extremities. Full function Gait is steady, Speech is normal. Cardiovascular: Reports chest pain, shortness of breath, Heart tones S1 S2 present Capillary refill < 3 seconds Clubbing of nail beds is absent JVD is absent Patient's skin is warm and dry. Rhythm is regular Chest pain is described as vague, diffuse, is located in anterior chest wall. Respiratory: Reports cough that is productive, pain with cough Airway is patent Respiratory effort is even, unlabored, Respiratory pattern is regular, symmetrical, Breath sounds are clear bilaterally. the patient has moderate shortness of breath. GI: No signs and/or symptoms were reported involving the gastrointestinal system. : No signs and/or symptoms were reported regarding the genitourinary system. EENT: No signs and/or symptoms were reported regarding the EENT system. Derm: Skin is intact, is healthy with good turgor, Skin is pink, warm \T\ dry. Musculoskeletal: Circulation, motion, and sensation intact. Capillary refill < 3 seconds. 20:20 Reassessment: Patient appears in no apparent distress at this time. Patient and/or aa1 family updated on plan of care and expected duration. Pain level reassessed. Patient is alert, oriented x 3, equal unlabored respirations, skin warm/dry/pink. Awaiting lab \T\ x-ray results. 20:25 Reassessment: Spoke with Lloyd in lab, reports labs were hemolyzed and need to be aa1 recollected. Chester from inside lab will come attempt to recollect specimens. 20:50 Reassessment: Foreign Student Adviser Teacher at bedside for lab draw. aa1 21:25 Reassessment: Patient appears in no apparent distress at this time. Patient and/or aa1 family updated on plan of care and expected duration. Pain level reassessed. Patient is alert, oriented x 3, equal unlabored respirations, skin warm/dry/pink. Awaiting lab results. 22:35 Reassessment: Patient appears in no apparent distress at this time. Patient is alert, aa1 oriented x 3, equal unlabored respirations, skin warm/dry/pink. Discussed d/c \T\ f/u instructions with pt \T\ family. Denies questions or concerns at this time. Amb to lobby with steady gait Patient states feeling better. Patient states symptoms have improved. Vital Signs: 18:58 BP 163 / 79; Pulse 63; Resp 16; Temp 97.8; Pulse Ox 98% on R/A; Weight 81.65 kg; Height la1 5 ft. 2 in. (157.48 cm); 20:20 BP 153 / 79; Pulse 65; Resp 20; Pulse Ox 97% on R/A; aa1 21:25 BP 154 / 76; Pulse 60; Resp 16; Pulse Ox 95% on R/A; aa1 22:35 BP 153 / 70; Pulse 60; Resp 18; Temp 98.0; Pulse Ox 98% on R/A; Pain 0/10; aa1 18:58 Body Mass Index 32.92 (81.65 kg, 157.48 cm) la1 ED Course: 18:53 Patient arrived in ED. as 18:53 Tima Estrada DO is Private Physician. as 18:56 Triage completed. la1 18:58 Arm band placed on right wrist. la1 19:06 Vinicio Limon NP is PHCP. pm1 19:06 Syed Steele MD is Attending Physician. pm1 19:18 Zulema Gooden, JADA is Primary Nurse. aa1 19:18 Patient has correct armband on for positive identification. Placed in gown. Bed in low aa1 position. Call light in reach. equipment monitor phototypesetting on. Pulse ox on. NIBP on. Warm blanket given. 19:55 Initial lab(s) drawn, by ED staff, sent to lab. First set of blood cultures drawn by aa1 il. Inserted saline lock: 22 gauge in right wrist, using aseptic technique. ,using aseptic technique. by Oseas Watkins Blood collected. 20:02 Chest Pa And Lat (2 Views) XRAY In Process Unspecified. EDMS 22:35 No provider procedures requiring assistance completed. IV discontinued, intact, aa1 bleeding controlled, No redness/swelling at site. Pressure dressing applied. Administered Medications: 19:32 Drug: Albuterol 2.5 mg Route: Inhalation; aa1 19:32 Drug: predniSONE 60 mg Route: PO; aa1 20:30 Follow up: Response: No adverse reaction; Marked relief of symptoms aa1 20:31 Drug: Tussionex Pennkinetic ER 5 ml Route: PO; aa1 21:30 Follow up: Response: No adverse reaction; Marked relief of symptoms aa1 Outcome: 22:29 Discharge ordered by . pm1 22:37 Discharged to home ambulatory, with family. aa1 22:37 Condition: good 22:37 Discharge instructions given to patient, family, Instructed on discharge instructions, follow up and referral plans. medication usage, Demonstrated understanding of instructions, follow-up care, medications, Prescriptions given X 3. 22:45 Patient left the ED. aa1 Signatures: Dispatcher [employer] EDMS Zulema Gooden RN RN aa1 Majo Adams Lee, RN RN la1 Vinicio Limon, REGIONAL CONTROLLER REGIONAL CONTROLLER pm1
--- NOTE | 2019-01-18 22:30 | EDPHYS ---
Physician Documentation [facility] Name: Janusz Morris Jr Age: 53 yrs Sex: Male : 1965 Arrival Date: 01/18/2019 Time: 18:53 Bed 13 Private MD: Tima Estrada ED Physician Syed Steele HPI: 01/18 20:07 This 53 yrs old Male presents to ER via Ambulatory with complaints of pm1 Shortness Of Breath. 20:07 The patient has shortness of breath at rest. Onset: The symptoms/episode began/occurred pm1 3 day(s) ago. Duration: The symptoms are continuous. The patient's shortness of breath is aggravated by nothing, is alleviated by nothing. Associated signs and symptoms: Pertinent positives: productive cough, subjective fever, Pertinent negatives: chest pain, diaphoresis, dizziness, nausea, vomiting. Severity of symptoms: in the emergency department the symptoms are unchanged Pain is currently a 0 / 10. The patient has not experienced similar symptoms in the past. The patient has been recently seen by a physician: with different complaint(s), TIPS two weeks ago. Patient with productive cough with yellow sputum for 3 days. Subjective fever. Patient without fever in the ER, has not taken any antipyretics. Historical: - Allergies: 18:58 No Known Allergies; la1 - Home Meds: 18:58 furosemide 20 mg Oral tab 1 tab once daily [Active]; glipizide 10 mg Oral tab 1 tab la1 once daily [Active]; lactulose 10 gram/15 mL Oral soln 60 mL 3 times per day [Active]; metformin 1,000 mg Oral tab 1 tab 2 times per day [Active]; pantoprazole 40 mg Oral TbEC 1 tab 2 times per day [Active]; atorvastatin 40 mg oral tab 1 tab once daily [Active]; - PMHx: 18:58 Alcoholism; Cirrhosis; Diabetes - NIDDM; esophageal varices; GI Bleed; Hypertension; la1 - Immunization history:: Adult Immunizations up to date. - Social history:: Smoking status: Patient/guardian denies using tobacco. - Ebola Screening: : No symptoms or risks identified at this time. ROS: 20:07 Constitutional: Negative for fever, chills, and weight loss, Eyes: Negative for injury, pm1 pain, redness, and discharge, ENT: Negative for injury, pain, and discharge, Neck: Negative for injury, pain, and swelling, Cardiovascular: Negative for chest pain, palpitations, and edema. 20:07 Abdomen/GI: Negative for abdominal pain, nausea, vomiting, diarrhea, and constipation, Back: Negative for injury and pain, : Negative for injury, bleeding, discharge, and swelling, MS/Extremity: Negative for injury and deformity, Skin: Negative for injury, rash, and discoloration, Neuro: Negative for headache, weakness, numbness, tingling, and seizure. 20:07 Respiratory: Positive for cough, with yellow sputum, shortness of breath, wheezing. Exam: 20:07 Constitutional: This is a well developed, well nourished patient who is awake, alert, pm1 and in no acute distress. Head/Face: Normocephalic, atraumatic. Eyes: Pupils equal round and reactive to light, extra-ocular motions intact. Lids and lashes normal. Conjunctiva and sclera are non-icteric and not injected. Cornea within normal limits. Periorbital areas with no swelling, redness, or edema. ENT: Nares patent. No nasal discharge, no septal abnormalities noted. Tympanic membranes are normal and external auditory canals are clear. Oropharynx with no redness, swelling, or masses, exudates, or evidence of obstruction, uvula midline. Mucous membranes moist. Neck: Trachea midline, no thyromegaly or masses palpated, and no cervical lymphadenopathy. Supple, full range of motion without nuchal rigidity, or vertebral point tenderness. No Meningismus. Chest/axilla: Normal chest wall appearance and motion. Nontender with no deformity. No lesions are appreciated. Cardiovascular: Regular rate and rhythm with a normal S1 and S2. No gallops, murmurs, or rubs. Normal PMI, no JVD. No pulse deficits. 20:07 Abdomen/GI: Soft, non-tender, with normal bowel sounds. No distension or tympany. No guarding or rebound. No evidence of tenderness throughout. Back: No spinal tenderness. No costovertebral tenderness. Full range of motion. Skin: Warm, dry with normal turgor. Normal color with no rashes, no lesions, and no evidence of cellulitis. MS/ Extremity: Pulses equal, no cyanosis. Neurovascular intact. Full, normal range of motion. 20:07 Respiratory: the patient does not display signs of respiratory distress, Respirations: normal, Breath sounds: wheezing: expiratory that is mild, is heard diffusely. 20:07 Neuro: Orientation: is normal, Motor: is normal, moves all fours, Sensation: is normal, no acute changes. Vital Signs: 18:58 BP 163 / 79; Pulse 63; Resp 16; Temp 97.8; Pulse Ox 98% on R/A; Weight 81.65 kg; Height la1 5 ft. 2 in. (157.48 cm); 20:20 BP 153 / 79; Pulse 65; Resp 20; Pulse Ox 97% on R/A; aa1 21:25 BP 154 / 76; Pulse 60; Resp 16; Pulse Ox 95% on R/A; aa1 22:35 BP 153 / 70; Pulse 60; Resp 18; Temp 98.0; Pulse Ox 98% on R/A; Pain 0/10; aa1 18:58 Body Mass Index 32.92 (81.65 kg, 157.48 cm) la1 MDM: 19:08 Patient medically screened. pm1 22:28 Data reviewed: vital signs. Data interpreted: Pulse oximetry: on room air is 95 %. pm1 Interpretation: normal. Counseling: I had a detailed discussion with the patient and/or guardian regarding: the historical points, exam findings, and any diagnostic results supporting the discharge/admit diagnosis, lab results, radiology results, the need for outpatient follow up, to return to the emergency department if symptoms worsen or persist or if there are any questions or concerns that arise at home. 01/18 19:21 Order name: Blood Culture Adult (2) pm1 01/18 19:21 Order name: CBC with Diff; Complete Time: 21:59 pm1 01/18 19:21 Order name: Chest Pa And Lat (2 Views) XRAY; Complete Time: 20:29 pm1 01/18 19:21 Order name: CMP; Complete Time: 21:54 pm1 01/18 19:21 Order name: Flu; Complete Time: 20:29 pm1 01/18 21:40 Order name: CBC Smear Scan; Complete Time: 21:59 EDMS 01/18 19:21 Order name: IV Saline Lock; Complete Time: 20:27 pm1 Administered Medications: 19:32 Drug: Albuterol 2.5 mg Route: Inhalation; aa1 19:32 Drug: predniSONE 60 mg Route: PO; aa1 20:30 Follow up: Response: No adverse reaction; Marked relief of symptoms aa1 20:31 Drug: Tussionex Pennkinetic ER 5 ml Route: PO; aa1 21:30 Follow up: Response: No adverse reaction; Marked relief of symptoms aa1 Disposition: 01/19 06:59 Co-signature as Attending Physician, Syed Steele MD. rn Disposition: 01/18/19 22:29 Discharged to Home. Impression: Bronchitis, not specified as acute or chronic. - Condition is Stable. - Discharge Instructions: Acute Bronchitis, Adult, How to Use an Inhaler. - Prescriptions for Medrol (Cm) 4 mg Oral Tablets, Dose Pack - take 1 tablet by ORAL route as directed - follow package instructions; 1 packet. Albuterol Sulfate 90 mcg/actuation - inhale 1-2 puff by INHALATION route every 4-6 hours; 1 Inhaler. Guaifenesin AC 10- 100 mg/5 mL Oral Liquid - take 10 milliliter by ORAL route every 4 hours As needed; 240 milliliter. - Medication Reconciliation Form, Thank You Letter, Antibiotic Education, Prescription Opioid Use form. - Follow up: Emergency Department; When: As needed; Reason: Worsening of condition. Follow up: Private Physician; When: 2 - 3 days; Reason: Recheck today's complaints, Continuance of care, Re-evaluation by your physician. - Problem is new. - Symptoms have improved. Signatures: Dispatcher [employer] EDZulema Chery RN RN aa1 Syed Steele MD MD rn Attema, Lee, RN RN la1 Vinicio Limon, GETACHEW ROTARY KILN OPERATOR pm1 Corrections: (The following items were deleted from the chart) 01/18 22:45 22:29 01/18/2019 22:29 Discharged to Home. Impression: Bronchitis, not specified as aa1 acute or chronic. Condition is Stable. Forms are Medication Reconciliation Form, Thank You Letter, Antibiotic Education, Prescription Opioid Use. Follow up: Emergency Department; When: As needed; Reason: Worsening of condition. Follow up: Private Physician; When: 2 - 3 days; Reason: Recheck today's complaints, Continuance of care, Re-evaluation by your physician. Problem is new. Symptoms have improved. pm1
== END 2019-01-18 22:45 | disposition home or self-care (01) ==
LOC: ER 18:51
DX: J40 Bronchitis, not specified as acute or chronic (principal); E11.9 Type 2 diabetes mellitus without complications; I10 Essential (primary) hypertension
CPT/HCPCS: 36415; 71046; 80053; 85025; 87040; 87804; 99285; J7512

== ENCOUNTER 2019-06-12 16:21 | Inpatient (IN) | payer MEDICAID ==
--- OUTSIDE RECORDS SUMMARY | 2019-06-12 16:30 | XMS REPORT | Clinical Summary ---
:1965 Author Organization [facility] Address [address] [place] [address] Care Team Providers Name Role Phone Tima Estrada DO Primary Care Provider Allergies No Known Allergies Medications Medication Sig Dispensed Refills Start End Date Status Date glipiZIDE Take 10 mg by 0 Active (GLUCOTROL) 10 MG mouth daily. tablet lactulose Take 60 mLs by 0 Active (CHRONULAC) 10 mouth 3 (three) gram/15 mL (15 mL) times daily. solution metFORMIN Take 1,000 mg by 0 Active (GLUCOPHAGE) 1000 mouth 2 (two) MG tablet times daily with breakfast and dinner. atorvastatin Take 1 tablet (40 30 tablet 1 01/02/20 Active (LIPITOR) 40 MG mg total) by mouth 9 20 tablet every evening. furosemide (LASIX) Take 1 tablet (20 30 tablet 4 Active 20 MG tablet mg total) by mouth 9 daily. pantoprazole Take 1 tablet (40 60 tablet 4 Active (PROTONIX) 40 MG mg total) by mouth 9 tablet 2 (two) times daily. rifAXIMin 550 mg Take 1 tablet (550 60 tablet 4 Active Tab mg total) by mouth 9 2 (two) times daily. spironolactone Take 1 tablet (50 30 tablet Active (ALDACTONE) 50 MG mg total) by mouth 9 tablet daily. furosemide (LASIX) Take 20 mg by 0 04/08/20 Discontinued 20 MG tablet mouth daily. 19 pantoprazole Take 40 mg by 0 04/08/20 Discontinued (PROTONIX) 40 MG mouth 2 (two) 19 tablet times daily. propranolol Take 20 mg by 0 01/03/20 Discontinued (INDERAL) 20 MG mouth 2 (two) 19 tablet times daily. spironolactone Take 50 mg by 0 01/03/20 Discontinued (ALDACTONE) 50 MG mouth daily. 19 tablet acetaminophen-code TK 1 T PO Q 6 H 0 01/15/20 Discontinued ine (TYLENOL #3) PRF PAIN 9 300-30 mg per tablet LIDOCAINE 2 % [...] mg total) by mouth 9 19 daily. rifAXIMin 550 mg Take 1 tablet (550 60 tablet 1 04/08/20 Discontinued Tab mg total) by mouth 9 19 2 (two) times daily. spironolactone Take 1 tablet (50 60 tablet 1 04/08/20 Discontinued (ALDACTONE) 50 MG mg total) by mouth 9 19 tablet daily. propranolol Take 1 tablet (20 60 tablet 1 02/02/20 (INDERAL) 20 MG mg total) by mouth 9 19 tablet 2 (two) times daily for 30 days. Active Problems Problem Noted Date Hepatocellular carcinoma 12/17/2018 Portal vein thrombosis 12/17/2018 Other cirrhosis of liver 12/16/2018 Portal hypertension 12/16/2018 Acute blood loss anemia 12/16/2018 Acute upper GI bleed 12/16/2018 Secondary esophageal varices with bleeding 12/16/2018 Acute respiratory failure 12/16/2018 GI bleed 12/15/2018 Encounters Date Type Specialty Care Team Description Abstract Hepatology Odalys Villegas, 9 ANGEL Buchanan Abstract Hepatology Sumanth Prakash MA Abstract Hepatology Lucinda Clark 9 L., ANGEL Documentation Hepatology Lucinda Clark L., ANGEL Office Visit Hepatology Lizbeth Menendez Hepatocellular carcinoma ( HCC) (Primary Dx); 9 MD Federico Other cirrhosis of liver (HCC); Liver mass; Chronic hepatitis C without hepatic coma (HCC); Encephalopathy Orders Only Hepatology Yeni Gonzalez Other cirrhosis of liver ( HCC) (Primary Dx); 9 SHAKIR Flores Hepatocellular carcinoma (HCC) Telephone Hepatology Yeni Gonzalez Follow-up 9 SHAKIR Flores Refill Transplant Hepatology Zonia Garcia, 9 RN Telephone Transplant Hepatology Zonia Garcia, Follow-up 9 RN Abstract Transplant Hepatology Zonia Garcia, 9 RN Social Work Transplant Hepatology Pradip Fuentes, 9 AXLE TURNER Social Work Transplant Hepatology Pradip Fuentes, 9 AXLE TURNER Telephone Transplant Hepatology Zonia Garcia, Follow-up 9 RN Hospital Encounter Radiology Lizbeth Menendez Hepatic cirrhosis, unspecified hepatic cirrhosis type, unspecified whether ascites present (HCC); 9 MD Federico Awaiting organ transplant status Follow-Up Transplant Hepatology Lizbeth Menendez Awaiting organ transplant status (Primary Dx); Sumanth Caballero MD Cancer screening; Hepatic cirrhosis, unspecified hepatic cirrhosis type, unspecified whether ascites present (HCC) Telephone Transplant Hepatology Melba Han Appointment 9 E (Confirmed 04/08 appt w/sister. ) Outside Orders Lizbeth Menendez MD Telephone Transplant Hepatology Melba Han Appointment 9 E (Rescheduled missed 03/21 mri appt. New appt date 04/08 also confirmed clinic appt on that day. Itinerary mailed to pt.) Telephone Transplant Hepatology Melba Han Appointment (see 9 E comment) Telephone Hepatology Yeni Gregory Procedure (EGD/TIVA 9 (cancel)) Telephone Transplant Hepatology Melba Han Appointment 9 E (Scheduled 03/21 mri appt & 04/08 clinic appt w/[facility]. Itinerary mailed.) Telephone Transplant Hepatology Melba Han Appointment ( Calling 9 E to schedule mri @ end february and clinic 2-3 wks after.) Telephone Hepatology Yeni Gregory Procedure (EGD/TIVA 9 (rescheduled)) Telephone Transplant Hepatology Zonia Garcia EGD 9 RN Orders Only Transplant Hepatology Zonia Garcia, Hepatic cirrhosis, unspecified hepatic cirrhosis type, unspecified whether ascites present (HCC) (Primary Dx); 9 RN Awaiting organ transplant status Follow-Up Transplant Hepatology Julian Garner, Other cirrhosis of 9 liver (HCC) Lizbeth Menendez MD Telephone Transplant Hepatology Melba Han Appointment 9 E (Confrimed 01/14 appt w/pts sister.) UNOS Charge Visit Transplant Hepatology Julian Garner 9 MD Abstract Transplant Hepatology Zonia Garcia 9 RN Abstract Transplant Hepatology Zonia Garcia, 9 RN Orders Only Transplant Hepatology Zonia [...] ENDOSCOPY 9 MD Federico Abstract Transplant Hepatology Law Tasha R 9 Anesthesia Event Sumanth Luther MD Surgery Virtual, Surgeon PROCEDURE DONE 9 OUTSIDE OR Orders Only Radiology Swapna Marquez Secondary esophageal varices with bleeding (HCC); 9 Portal hypertension (HCC) Anesthesia Event Alisa Frias 9 MD Israel Surgery Virtual, Surgeon PROCEDURE DONE 9 OUTSIDE OR Orders Only Hepatology Gail Moreno Secondary esophageal varices with bleeding (HCC) (Primary Dx); 9 SHAKIR Ortiz Portal hypertension (HCC) Documentation Transplant Hepatology Law, Tasha R 9 Surgery Diana Kennedy R CATH 9 Documentation Transplant Hepatology Law, Tasha R 9 Abstract Transplant Hepatology Julian Garner 9 MD Anesthesia Event Gastroenterology Cecelia Capone 9 JAMAL Wong Surgery Gastroenterology Kyaw Malik UPPER 9 ENDOSCOPY,BANDING Hospital Encounter General Internal Eric, Acute hepatic encephalopathy; 9 - Medicine Christopher Anemia associated with acute blood loss; MD Wilver Hematemesis with nausea; 9 Lc Townsend Alcoholic cirrhosis of liver with ascites (HCC); MD Sagrario Gastrointestinal hemorrhage with hematemesis; Melquiades Freire, Acute upper GI bleed; Acute respiratory [...] History of GI bleed Travel 9 after 06/11/2018 Family History Medical History Relation Name Comments [...] Vital Sign Reading Time Taken Blood Pressure 145/81 05/22/2019 11:14 AM CDT Pulse 90 05/22/2019 11:14 AM CDT Temperature 36.8 C (98.3 F) 05/22/2019 11:14 AM CDT Respiratory Rate 18 05/22/2019 11:14 AM CDT Oxygen Saturation 99% 05/22/2019 11:14 AM CDT Inhaled Oxygen Concentration 21% 01/01/2019 9:43 PM CDT Weight 80.1 kg (176 lb 8 oz) 05/22/2019 11:14 AM CDT Height 157.5 cm (5' 2") 05/22/2019 11:14 AM CDT Body Mass Index 32.28 05/22/2019 11:14 AM CDT Plan of Treatment Date Type Specialty Care Team Description 06/18/2019 Appointment Radiology Lizbeth Menendez MD [address] [address] [phone] 08/13/2019 Appointment Radiology Lizbeth Menendez MD [address] [address] [phone] 08/13/2019 Office Visit Hepatology Lizbeth Menendez MD [address] [phone] Procedures Procedure Name Priority Date/Time Associated Diagnosis Comments MR ABDOMEN WITH & Routine 04/08/2019 2:10 Hepatic cirrhosis, Results for this WITHOUT IV CONTRAST PM CDT unspecified hepatic procedure are in cirrhosis type, the results unspecified whether section. ascites present (HCC) Awaiting organ transplant status POCT-CREATININE Routine 04/08/2019 1:51 Results for this PM CDT procedure are in the results section. PROTHROMBIN TIME/INR Routine 04/08/2019 1:11 Awaiting organ Results for this PM CDT transplant status procedure are in Hepatic cirrhosis, the results unspecified hepatic section. cirrhosis type, unspecified whether ascites present (HCC) ALPHA FETOPROTEIN Routine 04/08/2019 1:11 Awaiting organ Results for this (AFP), TUMOR MARKER PM CDT transplant status procedure are in Cancer screening the results Hepatic cirrhosis, section. unspecified hepatic cirrhosis type, unspecified whether ascites present (HCC) CBC W/PLT COUNT & Routine 04/08/2019 1:10 Awaiting organ Results for this AUTO DIFFERENTIAL PM CDT transplant status procedure are in Hepatic cirrhosis, the results unspecified hepatic section. cirrhosis type, unspecified whether ascites present (HCC) COMPREHENSIVE Routine 04/08/2019 1:10 Awaiting organ Results for this METABOLIC PANEL PM CDT transplant status procedure are in Hepatic cirrhosis, the results unspecified hepatic section. cirrhosis type, unspecified whether ascites present (HCC) CBC W/PLT COUNT & Routine 04/08/2019 1:10 Awaiting organ Results for this AUTO DIFFERENTIAL PM CDT transplant status procedure are in Hepatic cirrhosis, the results unspecified hepatic section. cirrhosis type, unspecified whether ascites present (HCC) BILIRUBIN, DIRECT Routine 04/08/2019 1:10 Awaiting organ Results for this PM CDT transplant status procedure are in Hepatic cirrhosis, the results unspecified hepatic section. cirrhosis type, unspecified whether ascites present (HCC) CARDIAC CATH REPORT - 01/03/2019 11:04 SCAN [...] are in the results section. XR MANDIBLE 4 VIEWS Routine 12/21/2018 4:35 PM Results for this MIN CDT procedure are in the results section. [...] 12:57 PM Coronary artery CDT disease involving [place] heart without angina pectoris, unspecified vessel or [...] this procedure are in the results section. [id number] AP Routine 12/19/2018 5:18 PHENOTYP PM CDT [...] 12/17/2018 10:47 ORDER AM CDT MR ABDOMEN WITH & MERARI 12/17/2018 9:40 Results for WITHOUT IV CONTRAST AM CDT this procedure are in the [...] this procedure are in the results section. [id number]\\, Routine 12/16/2018 8:18 Results for SERUM PM [...] procedure are in the results section. after 06/11/2018 Results MRI abdomen with and without contrast (04/08/2019 2:10 PM CDT)Only the most recent of2 resultswithin the time period is included. Specimen Narrative Performed At FINAL REPORT [facility] MR of the abdomen dated April 08, 2019 COMPARISON: December 17, 2018 Comment: Multiplanar T1 T2-weighted images of the abdomen, postcontrast axial and coronal T1-weighted images of the abdomen were obtained at. Liver is cirrhotic in appearance with irregular margins. Again noted an early enhancing lesion in the anterior right hepatic dome measuring 2.5 cm, previously 1.3 cm. This is delayed washout. This lesion suspicious for hepatocellular carcinoma. No other mass is noted in the liver. A few small subcentimeter enhancing foci are seen in the liver thought to represent vascular shunting. Spleen is enlarged measuring approximately 14.5 x 6.2 x 10.9 cm. The splenic, spleen mesenteric veins are patent. The main portal vein is not well seen. Collateral veins are seen in the abdulaziz hepatis suggestive of cavernous transformation. Gallbladder is contracted. No gallstone or biliary dilatation is noted. Pancreas and adrenals are unremarkable. Both kidneys are normal in size and functioning. No adenopathy ascites is present. IMPRESSION: 1. Cirrhosis with splenomegaly. 2. Interval increase in size of early enhancing lesion in the anterior right hepatic dome suspicious for hepatocellular carcinoma. Signed: Terese Jordan MD Report Verified Date/Time:04/09/2019 17:19:22 Reading Location: [address] Radiology Reading Room Procedure Note Interface, External Ris In - 04/09/2019 5:21 PM CDT FINAL REPORT MR of the abdomen dated April 08, 2019 COMPARISON: December 17, 2018 Comment: Multiplanar T1 T2-weighted images of the abdomen, postcontrast axial and coronal T1-weighted images of the abdomen were obtained at. Liver is cirrhotic in appearance with irregular margins. Again noted an early enhancing lesion in the anterior right hepatic dome measuring 2.5 cm, previously 1.3 cm. This is delayed washout. This lesion suspicious for hepatocellular carcinoma. No other mass is noted in the liver. A few small subcentimeter enhancing foci are seen in the liver thought to represent vascular shunting. Spleen is enlarged measuring approximately 14.5 x 6.2 x 10.9 cm. The splenic, spleen mesenteric veins are patent. The main portal vein is not well seen. Collateral veins are seen in the abdulaziz hepatis suggestive of cavernous transformation. Gallbladder is contracted. No gallstone or biliary dilatation is noted. Pancreas and adrenals are unremarkable. Both kidneys are normal in size and functioning. No adenopathy ascites is present. IMPRESSION: 1. Cirrhosis with splenomegaly. 2. Interval increase in size of early enhancing lesion in the anterior right hepatic dome suspicious for hepatocellular carcinoma. Signed: Terese Jordan MD Report Verified Date/Time: 04/09/2019 17:19:22 Reading Location: [address] Radiology Reading Room Performing Organization Address City/State/Zipcode Phone Number [facility] POC-Creatinine (04/08/2019 1:51 PM CDT) POC-Creatinine 0.9Comment: TESTED AT 0.6 - 1.3 mg/dL [facility] [address] [place] [address] POC-EGFR 88 mL/min/1.73M2 [facility] Specimen Blood Performing Organization Address [facility] Phone Number [address] [phone] CENTER Alpha fetoprotein (AFP), tumor marker (04/08/2019 1:11 PM CDT)Only the most recent of2 resultswithin the time period is included. Alpha-Fetoprotein 32.9 (H) <10.0 ng/mL [facility] Specimen Blood Performing Organization Address [facility] Phone Number [address] [address] CENTER Prothrombin time/INR (04/08/2019 1:11 PM CDT)Only the most recent of6 resultswithin the time period is included. Protime 14.9 (H) 11.9 - 14.2 seconds [facility] INR 1.2 <=5.9 [facility] Specimen Blood Narrative Performed At Effective 02/19/2019: PT Reference Range [facility] Change New: 11.9-14.2Previous: 11.7-14.7 RECOMMENDED COUMADIN/WARFARIN INR THERAPY RANGES STANDARD DOSE: 2.0-3.0Includes: PROPHYLAXIS for venous thrombosis, systemic embolization; TREATMENT for venous thrombosis and/or pulmonary embolus. HIGH RISK: Target INR is 2.5-3.5 for patients wiht mechanical heart valves. Performing Organization Address [facility] Phone Number [address] [address] CENTER CBC with platelet count + automated diff (04/08/2019 1:10 PM CDT)Only the most recent of11 resultswithin the time period is included. WBC 5.9 3.5 - 10.5 K/L [facility] RBC 4.75 4.63 - 6.08 M/L [facility] Hemoglobin 10.7 (L) 13.7 - 17.5 GM/DL [facility] Hematocrit 35.5 (L) 40.1 - 51.0 % [facility] MCV 74.7 (L) 79.0 - 92.2 fL [facility] MCH 22.5 (L) 25.7 - 32.2 pg [facility] MCHC 30.1 (L) 32.3 - 36.5 GM/DL [facility] RDW 18.6 (H) 11.6 - 14.4 % [facility] Platelets 157 150 - 450 K/CU MM [facility] MPV 9.4 9.4 - 12.4 fL [facility] nRBC 0 0 - 0 /100 WBC [facility] % Neutros 68 % [facility] % Lymphs 19 % [facility] % Monos 9 % [facility] % Eos 3 % [facility] % Baso 1 % [facility] # Neutros 4.03 1.78 - 5.38 K/L [facility] # Lymphs 1.13 (L) 1.32 - 3.57 K/L [facility] # Monos 0.52 0.30 - 0.82 K/L [facility] # Eos 0.20 0.04 - 0.54 K/L [facility] # Baso 0.05 0.01 - 0.08 K/L [facility] Immature Granulocytes-Relative 0 0 - 1 % [facility] Specimen Blood Performing Organization Address City/State/Zipcode Phone Number [facility] [place] [place] [address] [place] [address] [place] Bilirubin, direct (04/08/2019 1:10 PM CDT) Bilirubin, Direct 0.8 (H) 0.1 - 0.5 mg/dL [facility] Specimen Blood Performing Organization Address City/State/Zipcode Phone Number [facility] [place] [place] [address] [place], [place] [phone] [place] Comprehensive metabolic panel (04/08/2019 1:10 PM CDT)Only the most recent of9 resultswithin the time period is included. Protein, Total 8.2 6.0 - 8.3 gm/dL [facility] Albumin 3.5 3.5 - 5.0 g/dL [facility] Alkaline Phosphatase 216 (H) 40 - 150 U/L [facility] Total Bilirubin 1.4 (H) 0.2 - 1.2 mg/dL [facility] Sodium 132 (L) 136 - 145 meq/L [facility] Potassium 4.5 3.5 - 5.1 meq/L [facility] Chloride 102 98 - 107 meq/L [facility] CO2 24 22 - 29 meq/L [facility] BUN 12 7 - 21 mg/dL [facility] Creatinine 1.16 0.57 - 1.25 mg/dL [facility] Glucose 249 (H) 70 - 105 mg/dL [facility] Calcium 9.3 8.4 - 10.2 mg/dL [facility] AST 81 (H) 5 - 34 U/L [facility] ALT 40 6 - 55 U/L [facility] EGFR 65Comment: ESTIMATED GFR mL/min/1.73 sq m [facility] IS NOT ACCURATE [facility] CREATININE CLEARANCE IN PREDICTING GLOMERULAR FILTRATION RATE. ESTIMATED GFR IS NOT APPLICABLE FOR DIALYSIS PATIENTS. Specimen Blood Performing Organization Address City/[facility] Phone Number [address] [address] [phone] [place] CARDIAC CATH REPORT - SCAN (01/03/2019 11:04 [...] (H)Comment: TESTED AT 70 - 110 mg/dL [facility] [address] [place] [id number] Specimen Blood Performing Organization Address [facility] Phone Number [address] [address] CENTER Phosphorus (01/02/2019 3:10 AM CDT)Only the most recent of9 resultswithin the time period is included. Phosphorus 2.9 2.3 - 4.7 mg/dL [facility] Specimen Blood Performing Organization Address City/[facility]/Zipcode Phone Number [address] [address] CENTER Magnesium (01/02/2019 3:10 AM CDT)Only the most recent of10 resultswithin the time period is included. Magnesium 1.9 1.6 - 2.6 mg/dL [facility] Specimen Blood Performing Organization Address City/State/Zipcode Phone Number [facility] [place] [place] [address] [place] [address] CENTER IR TIPSS Procedure (01/01/2019 1:30 PM CDT)Only the most recent of2 resultswithin the time period is included. Specimen Narrative Performed At Addendum Begins GE RIS REPORT STATUS:A Addendum: Ultrasound was used to examine the veins the right neck. A patent internal jugular vein was identified and images the patent vein were saved on PACS. Real-time ultrasound guidance was then utilized for access of the internal jugular vein. Signed: Sola Camarillo MD Report Verified Date/Time:01/20/2019 08:05:45 Reading Location: [address] Radiology Reading Room Addendum Ends FINAL REPORT Procedure: TIPS, 01/01/2019 HISTORY: Recurrent [...] MD Report Verified Date/Time:01/01/2019 17:21:51 Reading Location: [place] [address] Angio Body Reading Room Procedure Note Interface, External Ris In - 01/20/2019 8:07 AM CDT Addendum Begins REPORT STATUS:A Addendum: Ultrasound was used to examine the veins the right neck. A patent internal jugular vein was identified and images the patent vein were saved on PACS. Real-time ultrasound guidance was then utilized for access of the internal jugular vein. Signed: Sola Camarillo MD Report Verified Date/Time: 01/20/2019 08:05:45 Reading Location: [address] Radiology Reading Room Addendum Ends FINAL REPORT Procedure: TIPS, 01/01/2019 HISTORY: Recurrent [...] Report Verified Date/Time: 01/01/2019 17:21:51 Reading Location: [place] [id number] Angio Body Reading Room Performing Organization Address City/[facility]/Zipcode Phone Number GE RIS Type and screen, automated (01/01/2019 5:12 AM CDT)Only the most recent of4 resultswithin the time period is included. ABO/RH AUTOMATED (BEAKER) O POSITIVE [facility] Ab Scrn NEGATIVE [facility] Specimen Blood Performing Organization Address City/[facility] Phone Number [address] [address] Calcium, Ionized (01/01/2019 5:12 AM CDT)Only the most recent of7 resultswithin the time period is included. Calcium, Ion 0.81 (L) 1.12 - 1.27 mmol/L [facility] pH, Blood 7.50 [facility] Specimen Blood Performing Organization Address [facility] Phone Number [address] [address] CENTER ECHOCARDIOGRAM REPORT - SCAN (12/31/2018 9:11 PM CDT) Narrative Performed At B-type Natriuretic Factor (BNP) (12/31/2018 5:12 AM CDT)Only the most recent of2 resultswithin the time period is included. BNP 99 0 - 100 pg/mL [facility] Specimen Blood Performing Organization Address City/State/Zipcode Phone Number [facility] [place] [place] [address] [place], [place] [phone] [place] Basic Metabolic Panel (12/31/2018 5:12 AM CDT)Only the most recent of11 resultswithin the time period is included. Sodium 138 136 - 145 meq/L [facility] Potassium 3.8 3.5 - 5.1 meq/L [facility] Chloride 104 98 - 107 meq/L [facility] CO2 27 22 - 29 meq/L [facility] BUN 19 7 - 21 mg/dL [facility] Creatinine 1.26 (H) 0.57 - 1.25 mg/dL [facility] Glucose 191 (H) 70 - 105 mg/dL [facility] Calcium 8.9 8.4 - 10.2 mg/dL [facility] EGFR 59Comment: ESTIMATED GFR IS mL/min/1.73 sq m [facility] NOT ACCURATE CREATININE [facility] CLEARANCE IN PREDICTING GLOMERULAR FILTRATION RATE. ESTIMATED GFR IS NOT APPLICABLE FOR DIALYSIS PATIENTS. Specimen Blood Performing Organization Address City/[facility]/Zipcode Phone Number 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 [facility] InterpretingRaym acacia Finch, Physician MD Fellow CASSANDRA Vega Procedure Type of Study [...] of Study 12/30/2018 Gender Male Visit Number [id number] Race Unknown Room Number 735 Number Date of 1965 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 Signed: Patricio Gordillo MD Report Verified Date/Time:12/30/2018 16:47:37 Reading Location: [address] Reading Room Procedure Note Interface, External Ris In - 12/30/2018 4:49 PM CDT FINAL REPORT PROCEDURE: BONE SCAN, WHOLE BODY CPT CODE: [id number] INDICATION: Hepatocellular carcinoma, preoperative evaluation for liver [...] abdominal MR I, and chest CT. Signed: Patricio Gordillo MD Report Verified Date/Time: 12/30/2018 16:47:37 Reading Location: [address] Nuc Med Reading Room Performing Organization Address City/State/Zipcode Phone Number [facility] CT chest without IV contrast (12/30/2018 11:03 AM CDT) Specimen Narrative Performed At FINAL REPORT [facility] CT Chest without contrast History: Hepatocellular carcinoma, [...] MD Report Verified Date/Time:12/30/2018 12:26:39 Reading Location: [facility] Diagnostic Imaging Reading Room - [place] [address] Procedure Note Interface, External Ris In - [...] Report Verified Date/Time: 12/30/2018 12:26:39 Reading Location: [facility] Diagnostic Imaging Reading Room - [place] [address] Performing Organization Address City/State/[facility] Phone Number RIS REPORT OF PROCEDURE - ENDOSCOPY URL (12/27/2018 10:16 AM CDT) Narrative Performed At PT/aPTT (12/26/2018 7:20 AM CDT) Protime 15.4 (H) 11.7 - 14.7 seconds [facility] INR 1.2 <=5.9 [facility] PTT 35.4 22.5 - 36.0 seconds [facility] Specimen Blood Narrative Performed At RECOMMENDED COUMADIN/WARFARIN INR THERAPY [facility] RANGES STANDARD DOSE: 2.0 - 3.0 Includes: PROPHYLAXIS for venous thrombosis, systemic embolization; TREATMENT for venous thrombosis and/or pulmonary embolus. HIGH RISK: Target INR is 2.5-3.5 for patients with mechanical heart valves. Performing Organization Address City/[facility] Phone Number [address] [address] [phone] CENTER Urinalysis w/Microscopic (12/25/2018 4:37 PM CDT) Color, UA Light Yellow [facility] Clarity, UA Clear [facility] Specific [place], UA 1.008 1.001 - 1.035 [facility] pH, UA 7.5 5.0 - 8.0 [facility] Protein, UA 30 mg/dL (A) Negative [facility] Glucose, UA 30 mg/dL (A) Negative [facility] Ketones, UA Negative Negative [facility] Bilirubin, UA Negative Negative [facility] Blood, UA Trace (A) Negative [facility] Nitrite, UA Negative Negative [facility] Leukocytes, UA Negative Negative [facility] Urobilinogen, UA 0.2 0.2 - 1.0 mg/dL [facility] RBC, UA 1 /HPF [facility] WBC, UA 1 /HPF [facility] Specimen Source Urine, Voided [facility] Specimen Urine Performing Organization Address [facility] Phone Number [facility] [place] [place] [address] [place] [address] CENTER ECG 12 lead (12/25/2018 4:12 PM CDT) Specimen Narrative Performed At Ventricular Rate 90 BPM GE MUSE Atrial Rate 90 BPM P-R Interval 160 ms QRS Duration 76 ms Q-T Interval 372 ms QTC Calculation(Bazett) 455 ms P Flushing 42 degrees R Flushing -4 degrees T Flushing 58 degrees Normal sinus rhythm Normal ECG No previous ECGs available Confirmed by MD MEANS JORGE ([id number]) on 12/26/2018 12:38:36 PM Procedure Note Interface, External Ris In - 12/26/2018 12:38 PM CDT Ventricular Rate 90 BPM Atrial Rate 90 BPM P-R Interval 160 ms QRS Duration 76 ms Q-T Interval 372 ms QTC Calculation(Bazett) 455 ms P [place]ushing 42 degrees R Flushing -4 degrees T [place] 58 degrees Normal sinus rhythm Normal ECG No previous ECGs available Confirmed by MD MEANS JORGE ([id number]) on 12/26/2018 12:38:36 PM Performing Organization Address City/[facility] Phone Number [facility] CBC (Hemogram only) (12/23/2018 4:31 AM CDT)Only the most recent of5 resultswithin the time period is included. WBC 4.4 3.5 - 10.5 K/L [facility] RBC 4.11 (L) 4.63 - 6.08 M/L [facility] Hemoglobin 8.0 (L) 13.7 - 17.5 GM/DL [facility] Hematocrit 28.2 (L) 40.1 - 51.0 % [facility] MCV 68.6 (L) 79.0 - 92.2 fL [facility] MCH 19.5 (L) 25.7 - 32.2 pg [facility] MCHC 28.4 (L) 32.3 - 36.5 GM/DL [facility] RDW 21.5 (H) 11.6 - 14.4 % [facility] Platelets 121 (L) 150 - 450 K/CU MM [facility] MPV 10.2 9.4 - 12.4 fL [facility] nRBC 0 0 - 0 /100 WBC [facility] Specimen Blood Performing Organization Address City/[facility] Phone Number [facility] [place] [place] [address] [place] [address] CENTER Hepatic function panel (12/23/2018 4:31 AM CDT)Only the most recent of5 resultswithin the time period is included. Protein, Total 6.5 6.0 - 8.3 gm/dL [facility] Albumin 2.7 (L) 3.5 - 5.0 g/dL [facility] Total Bilirubin 0.8 0.2 - 1.2 mg/dL [facility] Bilirubin, Direct 0.6 (H) 0.1 - 0.5 mg/dL [facility] Alkaline Phosphatase 141 40 - 150 U/L [facility] AST 66 (H) 5 - 34 U/L [facility] ALT 27 6 - 55 U/L [facility] Specimen Blood Performing Organization Address City/[facility]/Zipcode Phone Number [facility] [address] [place] [address] CENTER XR mandible min 4 views (12/21/2018 4:35 PM CDT) Specimen Narrative Performed At FINAL REPORT [facility] EXAMINATION: Mandible series, 4 views CLINICAL INDICATION: Liver transplant candidate. Evaluate for odontogenic infection. IMPRESSION: Although odontogenic infection cannot be excluded, there is no definite evidence of periapical radiolucency along the tooth roots. Paranasal sinuses and mastoid air cells appear relatively well pneumatized. Orbits are unremarkable. If there is persistent clinical concern, consider a maxillofacial CT. Signed: Kenneth Mauricio MD Report Verified Date/Time:12/21/2018 17:16:26 Reading Location: [address] Reading Room Procedure Note Interface, External [...] clinical concern, consider a maxillofacial CT. Signed: Kenneth Mauricio MD Report Verified Date/Time: 12/21/2018 17:16:26 Reading Location: [address] Reading Room Performing Organization Address City/State/Zipcode Phone Number [facility] Zinc (12/21/2018 4:34 AM CDT) Zinc 31 (L) 60 - 130 mcg/dL [facility] Comment: INCORPORATED This test was developed and its analytical performance characteristics have been determined by [facility]. It has not been cleared or approved by the US Food and Drug Administration. This assay has been validated pursuant to the CLIA regulations and is used for clinical purposes. Specimen Blood Narrative Performed At Performing Lab [facility] *[facility], [address] [place], [place] [phone] Violet Alves MD, PhD Performing Organization Address City/State/[place] [address] [facility] [address] [facility] PERIPHERAL VASCULAR REPORT - SCAN (12/20/2018 [...] Address City/State/Zipcode Phone Number [facility] [address] [place] [address] [address] ECHOCARDIOGRAM REPORT - SCAN (12/19/2018 9:12 PM CDT) Narrative Performed At Blood gas, arterial (12/19/2018 7:57 PM CDT) pH, Arterial 7.48 (H) 7.35 - 7.45 [facility] pCO2, Arterial 38 35 - 45 mmHg [facility] pO2, Arterial 83 80 - 90 mmHg [facility] O2 Sat, Arterial 97.1 (H) 96.0 - 97.0 % [facility] HCO3, Arterial 28 21 - 29 mmol/L [facility] Base Excess, Arterial 4.0 (H) -2.0 - 3.0 mmol/L [facility] Patient Temperature 36.3 C [facility] FIO2 21.0 % [facility] Specimen Blood, Arterial Performing Organization Address City/State/Zipcode Phone Number [facility] [place] [place] [address] [place] [address] [phone] CENTER Drug screen, urine, transplant (12/19/2018 5:34 PM CDT) Specimen Urine Narrative Performed At Performing Organization Address City/State/Zipcode Phone Number [facility] [address] [place] [address] HIV-1 Antigen with HIV-1/2 Antibody (12/19/2018 5:19 PM CDT) HIV-1 Antigen with HIV 1&2 Nonreactive Nonreactive [facility] Antibody [facility] Specimen Blood Performing Organization Address City/[facility] Phone Number [address] [address] [place] Cytomegalovirus antibody, IgM (12/19/2018 5:19 PM CDT) CMV IGM Negative Negative, Equivocal [facility] Specimen Blood Narrative Performed At CMV IgM Result Interpretation: [facility] </=0.8 Al Negative 0.9-1.0 Al Equivocal >/=1.1 Al Positive Performing Organization Address [facility] Phone Number [address] [address] CENTER Hepatitis A antibody, IgM (12/19/2018 5:19 PM CDT) Hep A IgM Nonreactive Nonreactive [facility] Specimen Blood Performing Organization Address [facility] Phone Number [address] [address] CENTER Cryptococcal antigen (12/19/2018 5:19 PM CDT) Cryptococcal Antigen, Serum Negative Negative, Interference [facility] Specimen Blood Performing Organization Address [facility] Phone Number [address] [address] CENTER Carbohydrate antigen 19-9 (CA 19-9) (12/19/2018 5:19 PM CDT) CA 19-9 23 <34 U/mL [facility] Comment: This test was performed using the Siemens Chemiluminescent method. Values obtained from different assay methods cannot be used interchangeably. CA19-9 levels, regardless of value, should not be interpreted as absolute evidence of the presence or absence of disease. Specimen Blood Narrative Performed At Performing Lab [facility] [address] [place] [address] Gokul Moore MD, PhD, COSMO Performing Organization Address [facility] Phone Number [place] [address] INCORPORATED [address] [facility] Ceruloplasmin (12/19/2018 5:19 PM CDT)Only the most recent of2 resultswithin the time period is included. Ceruloplasmin 36 18 - 36 mg/dL [facility] Comment: Adults:Males: 18-36 mg/dL Females: 18-53 mg/dL Pediatrics:Males (mg/dL)Females (mg/dL) 0-30 Days 8-25 3-28 31 Days-11 Month [id number] 1-3 [id number] 4-6 [id number] 7-9 [id number] 10-12 [id number] 13-15 [id number] 16-18 [id number] The pediatric ranges are derived from the following criteria: Rhea SJ, Bharat JM, Sirena J et al Pediatric reference ranges for Sdwm-9-Efghknspgzzca and ceruloplasmin. Clin. Chem 1997; 43:S1999 Pediatric Reference Ranges, 2nd., [place] Rheaet al. editors. [employer], [place], [place] 1997. Specimen Blood Narrative Performed At Performing Lab [facility] *[facility] [place] [employer], [address] [place] [phone] Violet Alves MD, PhD Performing Organization Address [facility] Phone Number [place] [address] INCORPORATED [address] [place] [facility] Hepatitis B core antibody, IgM (12/19/2018 5:19 PM CDT) Hep B C IgM Nonreactive Nonreactive [facility] Specimen Blood Performing Organization Address City/State/Zipcode Phone Number [address] [address] [place] EBV-VCA antibody, IgM (12/19/2018 5:19 PM CDT) JAQUELINE MEDRANO VIRAL CAPSID Negative Negative, Equivocal [facility] Specimen Blood Narrative Performed At Jaqueline Medrano Viral Capsid Antigen IgM Result [facility] Interpretation: </=0.8 Al Negative 0.9-1.0 Al Equivocal >/=1.1 Al Positive Performing Organization Address [facility] Phone Number [address] [address] [phone] [place] EBV-VCA antibody, IgG (12/19/2018 5:19 PM CDT) JAQUELINE MEDRANO VIRAL CAPSID Positive (A) Negative, Equivocal [facility] Specimen Blood Narrative Performed At Jaqueline Medrano Viral Capsid Antigen IgG Result [facility] Interpretation: </=0.8 Al Negative 0.9-1.0 Al Equivocal >/=1.1 Al Positive Performing Organization Address [facility] Phone Number [address] [address] [place] Vitamin D, 25-Hydroxy (12/19/2018 5:19 PM CDT) Vitamin D 25-Hydroxy 6.6 6.6 - 49.9 ng/mL [facility] Specimen Blood Narrative Performed At Effective 07/04/2017: Reference Range Change [facility] New: 6.6-49.9 ng/mL Previous: 13.0-47.8 ng/mL Recommended Vitamin D Target Range: 30.0-40.0 ng/mL Performing Organization Address [facility] Phone Number [address] [address] CENTER RPR (12/19/2018 5:19 PM CDT) RPR Nonreactive Nonreactive [facility] Specimen Blood Performing Organization Address [facility] Phone Number [address] [phone] CENTER Hepatitis B surface antibody (12/19/2018 5:19 PM CDT) Hep B S Ab <8.0 <8.0 mIU/mL [facility] Specimen Blood Performing Organization Address [facility] Phone Number [address] [address] [phone] [place] Hepatitis B surface antigen (12/19/2018 5:19 PM CDT) hepatitis B Surface Ag Nonreactive Nonreactive [facility] Specimen Blood Performing Organization Address [facility] Phone Number [address] [address] [place] Cytomegalovirus antibody, IgG (12/19/2018 5:19 PM CDT) CYTOMEGALOVIRUS, IGG Positive (A) Negative, Equivocal [facility] Specimen Blood Narrative Performed At CMV IgG Result Interpretation: [facility] </=0.8 Al Negative 0.9-1.0 Al Equivocal >/=1.1 AlPositive Performing Organization Address [facility] Phone Number [address] [address] [place] Testosterone, free + total (12/19/2018 5:19 PM CDT) Testosterone 327 250 - 1100 ng/dL [facility] Testosterone, Free 27.2 (L) 35.0 - 155.0 [facility] Comment: pg/mL INCORPORATED Data from J Clin Invest 1974:53:819-828 and J Clin Endocrinol Metab 1973;36:7431-8831. Men with clinically significant hypogonadal symptoms and testosterone values repeatedly in the range of the 200-300 ng/dL or less, may benefit from testosterone treatment after adequate risk and benefits counseling. For additional information, please refer to http://education.[employer].com/faq/VMA267 (This link is being provided for informational/ educational purposes only.) This test was developed and its analytical performance characteristics have been determined by [facility]. It has not been cleared or approved by the US Food and Drug Administration. This assay has been validated pursuant to the CLIA regulations and is used for clinical purposes. Specimen Blood Narrative Performed At Performing Lab [facility] *[facility] [place] [facility], [address] [place] [address] Violet Alves MD, PhD Performing Organization Address City/[facility]/Zipcode Phone Number [employer] [facility], [place] [address] INCORPORATED [address] [facility] Uric acid (12/19/2018 5:19 PM CDT) Uric Acid 4.7 2.6 - 7.2 mg/dL [facility] Specimen Blood Performing Organization Address [facility] Phone Number [address] [address] CENTER T3 (12/19/2018 5:19 PM CDT) T3, Total 108 48 - 159 ng/dL [facility] Specimen Blood Performing Organization Address [facility] Phone Number [address] [address] [phone] CENTER Transferrin (12/19/2018 5:19 PM CDT) Transferrin 288 174 - 382 mg/dL [facility] Specimen Blood Performing Organization Address [facility] Phone Number [address] [address] CENTER TSH (12/19/2018 5:19 PM CDT) TSH 5.24 (H) 0.35 - 4.94 uIU/mL [facility] Specimen Blood Performing Organization Address [facility] Phone Number [address] [address] CENTER T4 (12/19/2018 5:19 PM CDT) T4, Total 6.9 4.9 - 11.7 ug/dL [facility] Specimen Blood Performing Organization Address City/[facility] Phone Number [address] [address] [place] PSA (12/19/2018 5:19 PM CDT) PSA 0.5 0.0 - 4.0 ng/mL [facility] Specimen Blood Performing Organization Address City/[facility] Phone Number [address] [address] [place] Hemoglobin A1c (12/19/2018 5:19 PM CDT) Hemoglobin A1C 6.7 (H) 4.3 - 6.1 % [facility] Specimen Blood Performing Organization Address [facility] Phone Number [address] [address] [place] Gamma Glutamyl Transferase (GGT) (12/19/2018 5:19 PM CDT) GGT 24 9 - 64 U/L [facility] Specimen Blood Performing Organization Address [facility] Phone Number [address] [address] [phone] [place] Carcinoembryonic Antigen (CEA) (12/19/2018 5:19 PM CDT) CEA, SERUM 1.9 0.0 - 5.0 ng/mL [facility] Specimen Blood Performing Organization Address City/[facility] Phone Number [address] [address] [phone] CENTER Ethanol (12/19/2018 5:19 PM CDT)Only the most recent of2 resultswithin the time period is included. Ethanol Lvl <10 <=10 mg/dL [facility] Specimen Blood Performing Organization Address City/State/[facility] Phone Number [facility] [place] [place] [address] [place], [place] [address] [phone] [place] Lipid panel (12/19/2018 5:19 PM CDT) Triglycerides 47 mg/dL [facility] Cholesterol 104 mg/dL [facility] HDL 33 mg/dL [facility] LDL Calculated 62 mg/dL [facility] Specimen Blood Narrative Performed At Triglyceride Reference Range: [facility] Low Risk <150 Pebyqmsadt654-338 High Risk 200-499 Very High Risk>=500 Cholesterol Reference Range: Low Risk <200 Ybpfbuvxag991-647 High Risk>240 HDL Cholesterol Reference Range: Low Risk >=60 High Risk <40 LDL Cholesterol Reference Range: Optimal<100 Near Xevnymu480-578 Jlsqfkszpa826-739 Vzli576-013 Very High >=190 Performing Organization Address [facility] Phone Number [place] [phone] [place] [address] [phone] [place] [id number] PHENOTYP (12/19/2018 5:18 PM CDT) A-1 Antitryp Phenotyp [facility] Specimen Blood - Other Narrative Performed At Performing Organization Address City/[facility] Phone Number [place] [address] [place] [address] Carotid doppler bilateral (12/19/2018 4:01 PM CDT) Ejection Fraction [facility] Specimen Impressions Performed At Right Impression [facility] 1. There is [...] Additional Measurements:ICAPSV/CCAPSV 0.76.ICAEDV/CCAEDV 0.96. Narrative Performed At [facility] - Carotid Duplex Study [facility] Demographics Patient NameSRUBEN DEE Date of Study 12/19/2018 Age 53 Visit [id number] GenderMale Date of 1965 Referring [facility] Room Number 735 Physician [employer] Calos Bahena Physician Procedure Type of Study: [...] of Study 12/19/2018 Age 53 Visit Number [id number] Gender Male Accession Number [id number] Date of 1965 Referring Edyta Sandy Room Number 735 Physician [employer]rel [employer] Calos Walters Interpreting Fern Bahena, Physician Procedure Type of Study: Cerebral: Carotid, [...] Additional Measurements:ICAPSV/CCAPSV 0.76.ICAEDV/CCAEDV 0.96. Performing Organization Address City/State/Zipcode Phone Number [facility] aPTT (12/19/2018 12:21 PM CDT)Only the most recent of3 resultswithin the time period is included. PTT 35.4 22.5 - 36.0 seconds [facility] Specimen Blood Performing Organization Address [facility]/Zipcode Phone Number [address] [phone] [place] D-dimer (12/19/2018 12:21 PM CDT) D-Dimer, Quant 6.75 (H) <0.50 MG/L FEU [facility] Specimen Blood Narrative Performed At Intended Use: The D-Dimer Assay can be used [facility] to aid in the diagnosis of Deep Vein Thrombosis (DVT) and Pulmonary Embolism Disease (PED). In patients with low pre-test probability, various studies concerning STA Liatest D-dimer test have reported that with a cutoff value of 0.50 MG/L FEU, the Negative Predictive Value (NPV) regarding the exclusion of thrombosis is within 95-100% range. Performing Organization Address [facility] Phone Number [address] [phone] [place] ECHO W CONTRAST & DOPPLER (12/19/2018 8:44 AM CDT) Ejection [facility]raction [facility] Specimen Narrative Performed At Transthoracic Echocardiography Report (TTE) 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[employer] Jett Gann Interpreting Mart Miranda MD Physician [...] LVOT CI: 3.57 l/min/m^2 Performing Organization Address City/[facility] Phone Number [facility] Urine Ethyl Glucuronide (12/17/2018 10:47 AM CDT) Scan Result [facility] Specimen Urine Narrative Performed At Performing Organization Address [facility] Phone Number [facility] [address] [place], [place] Drug screen, urine, comprehensive (12/17/2018 10:47 AM CDT) Specimen Urine Narrative Performed At Hepatitis A antibody, IgG (12/16/2018 8:18 PM CDT) Hep A IgG Reactive (A) Nonreactive [facility] Specimen Blood Performing Organization Address [facility] Phone Number [address] [address] [place] Anti-Mitochondrial Ab, reflex to titer (12/16/2018 8:18 PM CDT) Scan Result [facility] Specimen Blood Narrative Performed At Performing Organization Address [facility] Phone Number [place] [address] [place] [address] Iron, TIBC, % sat. (without ferritin) (12/16/2018 8:18 PM CDT) Iron 56.0 40.0 - 160.0 ug/dL [facility] TIBC 360 250 - 450 ug/dL [facility] Iron % Saturation 16 (L) 20 - 55 % [facility] Specimen Blood Performing Organization Address [facility] Phone Number [address] [address] C[place] Hepatitis C antibody (12/16/2018 8:18 PM CDT) Hepatitis C Ab Reactive (A) Nonreactive [facility] Specimen Blood Performing Organization Address [facility] Phone Number [address] [address] [place] Actin (Smooth Muscle) Antibody, IgG (12/16/2018 8:18 [...] Lab [facility] [address] [address] Gokul Moore MD, PhD, COSMO Performing Organization Address [facility] Phone Number [place] [address] [place] [address] Ulodf-[id number] (12/16/2018 8:18 PM CDT) A-1 Antitrypsin 137.60Comment: Specimen 90.00 - 200.00 mg/dL [facility] slightly hemolyzed [facility] [place] Specimen Blood Performing Organization Address [facility] Phone Number [address] [address] [phone] [place] Titer & Pattern (12/16/2018 8:18 PM CDT) [place] Titer 1:160 [facility] [place] Pattern Speckled [facility] Specimen Blood Performing Organization Address [facility]/Zipcode Phone Number [address] [address] [place] Hemoglobin and hematocrit (12/16/2018 8:18 PM CDT)Only the most recent of6 resultswithin the time period is included. Hemoglobin 9.2 (L) 13.7 - 17.5 GM/DL [facility] Hematocrit 32.6 (L) 40.1 - 51.0 % [facility] Specimen Blood Performing Organization Address [facility] Phone Number [address] [address] [place] Hepatitis B core antibody, total (12/16/2018 8:18 PM CDT) Hep B Core Total Ab Nonreactive Nonreactive [facility] Specimen Blood Performing Organization Address [facility] Phone Number [address] [address] [place] Hepatitis C genotype (12/16/2018 8:18 PM CDT) HCV Genotype, LiPA 3 [facility] Comment: INC[facility]PORATED The method used in this test is RT-PCR and reverse hybridization (Line Probe) of the 5' UTR and core region of the HCV genome. The analytical performance characteristics of this assay have been determined by [facility]. The modifications have not been cleared or approved by the FDA. This assay has been validated pursuant to the CLIA regulations and is used for clinical purposes. For additional information, please refer to http://education.[facility] /faq/HCVGenotyping (This link id being provided for informational/ educational purposes only.) Specimen Blood Narrative Performed At Performing Lab [facility] *QDID [facility] [address] [place] [address] Aleah Roberts MD Performing Organization Address City/[facility] Phone Number [place] [address] INCORPORATED [address] [facility] Hepatitis C PCR, Quantitative (12/16/2018 8:18 PM CDT) HCV PCR, Quantitative 821,000 (H) <15 IU/mL [facility] Specimen Blood Narrative Performed At This test uses a Real-Time Polymerase Chain [facility] Reaction (RT-PCR) methodology and was performed using [employer] Ampliprep/MAJOR TaqMan HCV test kit version 2.0 ([employer] Reportable range for this assay is 15 - 100,000,000 IU per mL (1.18 - 8.00 Log IU/mL). Performing Organization Address City/[facility]/Zipcode Phone Number [address] [address] [place] Anti-Nuclear Antibody (WILLOW) (12/16/2018 8:18 PM CDT) [place] Positive (A) Negative [facility] Specimen Blood Narrative Performed At Test performed by IFA method. [facility] Performing Organization Address [facility] Phone Number [address] [address] [place] Ferritin (12/16/2018 8:18 PM CDT) Ferritin 17 5 - 275 ng/mL [facility] Specimen Blood Performing Organization Address City/[facility] Phone Number [address] [address] [phone] [place] US abdominal with doppler (12/16/2018 3:45 PM CDT) Specimen Narrative Performed At FINAL REPORT [employer] TECHNIQUE: Grayscale ultrasound of the abdomen with [...] including splenomegaly and small volume ascites. Signed: Jayna Gorman MD Report Verified Date/Time:12/16/2018 18:22:50 Reading Location: [address] Ultrasound Reading Room Procedure Note Interface, [...] including splenomegaly and small volume ascites. Signed: Jayna Gorman MD Report Verified Date/Time: 12/16/2018 18:22:50 Reading Location: [facility] [id number] Ultrasound Reading Room Performing Organization Address City/State/Zipcode Phone Number [employer] XR chest 1 view portable / bedside (12/15/2018 10:48 PM CDT)Only the most recent of2 resultswithin the time period is included. Specimen Narrative Performed At FINAL REPORT [employer] Chest one view. Clinical history: NG tube [...] MD Report Verified Date/Time:12/15/2018 23:07:08 Reading Location: [facility] C013Y CT Body Reading Room Procedure Note Interface, External [facility] In - 12/15/2018 11:09 PM CDT FINAL [...] Report Verified Date/Time: 12/15/2018 23:07:08 Reading Location: [facility] C013Y CT Body Reading Room Performing Organization Address City/[facility] Phone Number GE RIS REPORT OF PROCEDURE - ENDOSCOPY URL (12/15/2018 4:53 PM CDT) Narrative Performed At ABORH, manual (12/15/2018 2:37 PM CDT) ABO Grouping O [facility] Rh Factor POS [facility] Specimen Blood Performing Organization Address [facility] Phone Number [address] [address] Lactic acid, venous (12/15/2018 2:09 PM CDT) Lactate, Venous 1.4 0.5 - 2.2 mmol/L [facility] Specimen Blood Performing Organization Address [facility] Phone Number [address] [address] [place] Fibrinogen (12/15/2018 2:08 PM CDT) Fibrinogen 164 (L) 225 - 434 mg/dl [facility] Specimen Blood Performing Organization Address [facility] Phone Number [address] [address] [place] after 06/11/2018 Insurance Payer Benefit Plan / Group Subscriber ID Type Phone Address [place] MED[place] MEDICAID [place] xxxxxxxxx Advance Directives For more information, please contact:[address] [phone] Code Status Date Activated Date Inactivated Comments Full Code 12/18/2018 3:02 PM 01/02/2019 1:38 PM This code status was determined by: Patient Full Code 12/15/2018 1:20 PM 12/17/2018 12:27 PM This code status was determined by: Patient
--- OUTSIDE RECORDS SUMMARY | 2019-06-12 16:32 | XMS REPORT ---
:1965 [facility] Address [address] [place] [address] Care Team Providers Name Role Phone BRAVO ONEAL Unavailable Unavailable JANNET KASPER Unavailable Unavailable Problems This patient has no known problems. Allergies, Adverse Reactions, Alerts This patient has no known allergies or adverse reactions. Medications This patient has no known medications. Results Test Description Test Time Test Comments Text Results Atomic Results Result Comments MR, ABDOMEN, WITH 2019-04-09 17:19:00 Include Abdominal FINAL REPORT PATIENT ID: Vessels [id number] MR of the abdomen dated April 08, [...] and functioning. No adenopathy ascites is present. IMPRESSION:1. Cirrhosis with splenomegaly.2. Interval increase in size of early enhancing lesion in the anterior right hepatic dome suspicious for hepatocellular carcinoma. Signed: Terese Jordan MDReport Verified Date/Time: 04/09/2019 17:19:22 Reading Location: [address] Radiology Reading Room A FETOPROTEIN (AFP), TUMOR MARKER 2019-04-08 14:34:00 Test Item Value Reference Range Comments ALPHA-FETOPROTEIN (BEAKER) (test ukad=2312) 32.9 ng/mL <10.0 COMPREHENSIVE METABOLIC [id number] 14:18:00 Test Item Value Reference Range Comments TOTAL PROTEIN (BEAKER) 8.2 gm/dL 6.0-8.3 (test ywoq=152) ALBUMIN (BEAKER) (test 3.5 g/dL 3.5-5.0 tari=4958) ALKALINE PHOSPHATASE 216 U/L 40-150 (BEAKER) (test lqzk=548) BILIRUBIN TOTAL (BEAKER) 1.4 mg/dL 0.2-1.2 (test vqea=744) SODIUM (BEAKER) (test 132 meq/L 136-145 hsyl=742) POTASSIUM (BEAKER) (test 4.5 meq/L 3.5-5.1 cepw=642) CHLORIDE (BEAKER) (test 102 meq/L 98-107 pbrm=679) CO2 (BEAKER) (test 24 meq/L 22-29 iqkz=560) BLOOD UREA NITROGEN 12 mg/dL 7-21 (BEAKER) (test oxnu=766) CREATININE (BEAKER) (test 1.16 mg/dL 0.57-1.25 kfzc=171) GLUCOSE RANDOM (BEAKER) 249 mg/dL 70-105 (test cceu=249) CALCIUM (BEAKER) (test 9.3 mg/dL 8.4-10.2 puxp=586) AST (SGOT) (BEAKER) (test 81 U/L 5-34 hpnf=761) ALT (SGPT) (BEAKER) (test 40 U/L 6-55 ssiu=285) EGFR (BEAKER) (test 65 mL/min/1.73 sq m ESTIMATED GFR IS NOT rirl=3720) ACCURATE CREATININE CLEARANCE IN PREDICTING GLOMERULAR FILTRATION RATE. ESTIMATED GFR IS NOT APPLICABLE FOR DIALYSIS PATIENTS. BILIRUBIN, [id number] 14:18:00 Test Item Value Reference Range Comments BILIRUBIN DIRECT (BEAKER) (test gknf=304) 0.8 mg/dL 0.1-0.5 PROTHROMBIN [id number] 14:05:00 Test Item Value Reference Range Comments PROTIME (BEAKER) (test sxkc=931) 14.9 seconds 11.9-14.2 INR (BEAKER) (test qbbc=059) 1.2 <=5.9 Effective 02/19/2019: PT Reference Range ChangeNew: 11.9-14.2 Previous: 11.7- 14.7RECOMMENDED COUMADIN/WARFARIN INR THERAPY RANGESSTANDARD DOSE: 2.0-3.0 Includes: PROPHYLAXIS for venous thrombosis, systemic embolization; TREATMENT for venous thrombosis and/or pulmonary embolus.HIGH RISK: Target INR is2.5-3.5 for patients wiht mechanical heart valves.[id number] 13:58:00 Test Item Value Reference Range Comments POC-CREATININE (BEAKER) 0.9 mg/dL 0.6-1.3 TESTED AT [facility] [address] [facility] (test occd=7120) [facility] [address] POC-EGFR (BEAKER) (test 88 mL/min/1.73M2 wqae=1490) CBC W/PLT COUNT & AUTO [id number] 13:56:00 Test Item Value Reference Range Comments WHITE BLOOD CELL COUNT (BEAKER) (test hlae=616) 5.9 K/ L 3.5-10.5 RED BLOOD CELL COUNT (BEAKER) (test onyu=414) 4.75 M/ L 4.63-6.08 HEMOGLOBIN (BEAKER) (test kjel=096) 10.7 GM/DL 13.7-17.5 HEMATOCRIT (BEAKER) (test rcgc=768) 35.5 % 40.1-51.0 MEAN CORPUSCULAR VOLUME (BEAKER) (test ghrv=130) 74.7 fL 79.0-92.2 MEAN CORPUSCULAR HEMOGLOBIN (BEAKER) (test 22.5 pg 25.7-32.2 oiiu=549) MEAN CORPUSCULAR HEMOGLOBIN CONC (BEAKER) (test 30.1 GM/DL 32.3-36.5 yodd=627) RED CELL DISTRIBUTION WIDTH (BEAKER) (test 18.6 % 11.6-14.4 nplh=218) PLATELET COUNT (BEAKER) (test dete=774) 157 K/CU MM 150-450 MEAN PLATELET VOLUME (BEAKER) (test javc=108) 9.4 fL 9.4-12.4 NUCLEATED RED BLOOD CELLS (BEAKER) (test 0 /100 WBC 0-0 qldn=164) NEUTROPHILS RELATIVE PERCENT (BEAKER) (test 68 % wmre=464) LYMPHOCYTES RELATIVE PERCENT (BEAKER) (test 19 % qdax=889) MONOCYTES RELATIVE PERCENT (BEAKER) (test 9 % qkkb=600) EOSINOPHILS RELATIVE PERCENT (BEAKER) (test 3 % cozc=882) BASOPHILS RELATIVE PERCENT (BEAKER) (test 1 % urzj=077) NEUTROPHILS ABSOLUTE COUNT (BEAKER) (test 4.03 K/ L 1.78-5.38 ygba=313) LYMPHOCYTES ABSOLUTE COUNT (BEAKER) (test 1.13 K/ L 1.32-3.57 zqdp=176) MONOCYTES ABSOLUTE COUNT (BEAKER) (test 0.52 K/ L 0.30-0.82 lmlp=263) EOSINOPHILS ABSOLUTE COUNT (BEAKER) (test 0.20 K/ L 0.04-0.54 sykf=505) BASOPHILS ABSOLUTE COUNT (BEAKER) (test 0.05 K/ L 0.01-0.08 afnr=168) IMMATURE GRANULOCYTES-RELATIVE PERCENT (BEAKER) 0 % 0-1 (test nczh=9692) HOPE [id number] 08:05:00Reason for exam:->recurrent variceal bleedAddendum BeginsREPORT STATUS:A Addendum: Ultrasound was used to examine the veins the right neck. A patent internal jugular vein was identified and images the patent vein were saved on PACS. Real-time ultrasound guidance was then utilized for access of the internal jugular vein.Signed: Sola Camarillo MDReport Verified Date/Time: 01/20/2019 08:05:45 Reading Location: [address] Radiology Reading RoomAddendum EndsFINAL REPORT Procedure: TIPS, 01/01/2019HISTORY: Recurrent upper GI bleeding, portal hypertension Anesthesia: [...] right, left and main portal veins. The needlesystem was then advanced into the right portal vein with subsequent advancement of the guidewire into the main portal vein. Pressures were obtained disclosing portal venous pressure of 21, right atrialpressure of 5 mmHg. An 8 cm in length Viatorr stent graft was then placed from the right portal veinto the hepatic veins and dilated to 9 [...] MDReport Verified Date/Time: 01/01/2019 17:21:51 Reading Location: [place] [address] Angio Body Reading Room POCT-GLUCOSE [id number] 08:02:00 Test Item Value Reference Range Comments POC-GLUCOSE METER (BEAKER) 187 mg/dL 70-110 TESTED AT [address] (test lffy=1871) [facility] [address] [id number] 04:17:00 Test Item Value Reference Range Comments PHOSPHORUS (BEAKER) (test fbei=458) 2.9 mg/dL 2.3-4.7 [id number] 04:17:00 Test Item Value Reference Range Comments MAGNESIUM (BEAKER) (test grnz=499) 1.9 mg/dL 1.6-2.6 COMPREHENSIVE METABOLIC [id number] 04:17:00 Test Item Value Reference Range Comments TOTAL PROTEIN (BEAKER) 7.6 gm/dL 6.0-8.3 (test mkuo=616) ALBUMIN (BEAKER) (test 3.3 g/dL 3.5-5.0 kkzw=7460) ALKALINE PHOSPHATASE 138 U/L 40-150 (BEAKER) (test tfvp=688) BILIRUBIN TOTAL (BEAKER) 1.0 mg/dL 0.2-1.2 (test jubb=166) SODIUM (BEAKER) (test 136 meq/L 136-145 poep=449) POTASSIUM (BEAKER) (test 4.0 meq/L 3.5-5.1 lytb=191) CHLORIDE (BEAKER) (test 105 meq/L 98-107 zmgm=763) CO2 (BEAKER) (test 22 meq/L 22-29 xusi=389) BLOOD UREA NITROGEN 14 mg/dL 7-21 (BEAKER) (test wiwq=600) CREATININE (BEAKER) (test 1.11 mg/dL 0.57-1.25 murl=769) GLUCOSE RANDOM (BEAKER) 173 mg/dL 70-105 (test xukx=075) CALCIUM (BEAKER) (test 9.1 mg/dL 8.4-10.2 klnw=481) AST (SGOT) (BEAKER) (test 89 U/L 5-34 qzgj=463) ALT (SGPT) (BEAKER) (test 41 U/L 6-55 hntp=004) EGFR (BEAKER) (test 69 mL/min/1.73 sq m ESTIMATED GFR IS NOT rrru=7288) ACCURATE CREATININE CLEARANCE IN PREDICTING GLOMERULAR FILTRATION RATE. ESTIMATED GFR IS NOT APPLICABLE FOR DIALYSIS PATIENTS. CBC W/PLT COUNT & AUTO [id number] 03:43:00 Test Item Value Reference Range Comments WHITE BLOOD CELL COUNT (BEAKER) (test efua=702) 9.1 K/ L 3.5-10.5 RED BLOOD CELL COUNT (BEAKER) (test xdpe=274) 4.66 M/ L 4.63-6.08 HEMOGLOBIN (BEAKER) (test repy=939) 9.1 GM/DL 13.7-17.5 HEMATOCRIT (BEAKER) (test eybr=159) 31.7 % 40.1-51.0 MEAN CORPUSCULAR VOLUME (BEAKER) (test yctn=818) 68.0 fL 79.0-92.2 MEAN CORPUSCULAR HEMOGLOBIN (BEAKER) (test 19.5 pg 25.7-32.2 iubf=803) MEAN CORPUSCULAR HEMOGLOBIN CONC (BEAKER) (test 28.7 GM/DL 32.3-36.5 tpmx=646) RED CELL DISTRIBUTION WIDTH (BEAKER) (test 20.4 % 11.6-14.4 rpqo=011) PLATELET COUNT (BEAKER) (test wscx=081) 174 K/CU MM 150-450 MEAN PLATELET VOLUME (BEAKER) (test olam=176) 10.6 fL 9.4-12.4 NUCLEATED RED BLOOD CELLS (BEAKER) (test 0 /100 WBC 0-0 mxzx=361) NEUTROPHILS RELATIVE PERCENT (BEAKER) (test 74 % vgnb=277) LYMPHOCYTES RELATIVE PERCENT (BEAKER) (test 16 % gagq=519) MONOCYTES RELATIVE PERCENT (BEAKER) (test 7 % syen=023) EOSINOPHILS RELATIVE PERCENT (BEAKER) (test 2 % ttzs=751) BASOPHILS RELATIVE PERCENT (BEAKER) (test 1 % cujc=495) NEUTROPHILS ABSOLUTE COUNT (BEAKER) (test 6.70 K/ L 1.78-5.38 wcvd=698) LYMPHOCYTES ABSOLUTE COUNT (BEAKER) (test 1.42 K/ L 1.32-3.57 ogrb=563) MONOCYTES ABSOLUTE COUNT (BEAKER) (test 0.61 K/ L 0.30-0.82 gukf=445) EOSINOPHILS ABSOLUTE COUNT (BEAKER) (test 0.20 K/ L 0.04-0.54 lgdl=068) BASOPHILS ABSOLUTE COUNT (BEAKER) (test 0.10 K/ L 0.01-0.08 prpx=146) IMMATURE GRANULOCYTES-RELATIVE PERCENT (BEAKER) 0 % 0-1 (test eyay=3553) POCT-GLUCOSE [id number] 23:33:00 Test Item Value Reference Range Comments POC-GLUCOSE METER (BEAKER) 230 mg/dL 70-110 TESTED AT [address] (test ozdq=5803) [facility] [address] POCT-GLUCOSE [id number] 16:25:00 Test Item Value Reference Range Comments POC-GLUCOSE METER (BEAKER) 182 mg/dL 70-110 TESTED AT [address] (test ignc=7559) [facility] [address] POCT-GLUCOSE [id number] 14:02:00 Test Item Value Reference Range Comments POC-GLUCOSE METER (BEAKER) 146 mg/dL 70-110 TESTED AT [facility] [address] [facility] (test edjh=7856) [facility] [address] POCT-GLUCOSE [id number] 07:49:00 Test Item Value Reference Range Comments POC-GLUCOSE METER (BEAKER) 143 mg/dL 70-110 TESTED AT [facility] [address] [facility] (test ehpy=2768) [facility] [address] CALCIUM, [id number] 06:48:00 Test Item Value Reference Range Comments CALCIUM IONIZED (BEAKER) (test mlmn=516) 0.81 mmol/L 1.12-1.27 PH, BLOOD (BEAKER) (test tnzh=1934) 7.50 CBC W/PLT COUNT & AUTO [id number] 06:41:00 Test Item Value Reference Range Comments WHITE BLOOD CELL COUNT 4.0 K/ L 3.5-10.5 (BEAKER) (test flmt=102) RED BLOOD CELL COUNT (BEAKER) 4.14 M/ L 4.63-6.08 (test esay=861) HEMOGLOBIN (BEAKER) (test 8.2 GM/DL 13.7-17.5 cbwf=957) HEMATOCRIT (BEAKER) (test 27.7 % 40.1-51.0 hjbw=212) MEAN CORPUSCULAR VOLUME 66.9 fL 79.0-92.2 (BEAKER) (test edem=012) MEAN CORPUSCULAR HEMOGLOBIN 19.8 pg 25.7-32.2 (BEAKER) (test bpbh=191) MEAN CORPUSCULAR HEMOGLOBIN 29.6 GM/DL 32.3-36.5 CONC (BEAKER) (test kmwh=972) RED CELL DISTRIBUTION WIDTH 20.3 % 11.6-14.4 (BEAKER) (test jrez=438) PLATELET COUNT (BEAKER) (test 120 K/CU MM 150-450 kzdv=639) MEAN PLATELET VOLUME (BEAKER) fL 9.4-12.4 Unable to report due to (test ideh=371) abnormal Platelet population distribution. NUCLEATED RED BLOOD CELLS 0 /100 WBC 0-0 (BEAKER) (test avlr=635) NEUTROPHILS RELATIVE PERCENT 58 % (BEAKER) (test mzim=086) LYMPHOCYTES RELATIVE PERCENT 25 % (BEAKER) (test tlzt=860) MONOCYTES RELATIVE PERCENT 8 % (BEAKER) (test tjxt=834) EOSINOPHILS RELATIVE PERCENT 7 % (BEAKER) (test phir=361) BASOPHILS RELATIVE PERCENT 1 % (BEAKER) (test tdwq=892) NEUTROPHILS ABSOLUTE COUNT 2.36 K/ L 1.78-5.38 (BEAKER) (test jgqc=778) LYMPHOCYTES ABSOLUTE COUNT 1.01 K/ L 1.32-3.57 (BEAKER) (test hlmt=870) MONOCYTES ABSOLUTE COUNT 0.33 K/ L 0.30-0.82 (BEAKER) (test xmda=049) EOSINOPHILS ABSOLUTE COUNT 0.29 K/ L 0.04-0.54 (BEAKER) (test cqxs=144) BASOPHILS ABSOLUTE COUNT 0.04 K/ L 0.01-0.08 (BEAKER) (test zxum=517) IMMATURE GRANULOCYTES-RELATIVE 0 % 0-1 PERCENT (BEAKER) (test etjo=9167) [id number] 06:02:00 Test Item Value Reference Range Comments PHOSPHORUS (BEAKER) (test hzin=553) 3.6 mg/dL 2.3-4.7 [id number] 06:02:00 Test Item Value Reference Range Comments MAGNESIUM (BEAKER) (test njnu=930) 1.7 mg/dL 1.6-2.6 COMPREHENSIVE METABOLIC [id number] 06:02:00 Test Item Value Reference Range Comments TOTAL PROTEIN (BEAKER) 7.2 gm/dL 6.0-8.3 (test eucf=367) ALBUMIN (BEAKER) (test 3.2 g/dL 3.5-5.0 lhvo=0997) ALKALINE PHOSPHATASE 157 U/L 40-150 (BEAKER) (test ejap=308) BILIRUBIN TOTAL (BEAKER) 0.9 mg/dL 0.2-1.2 (test ryur=590) SODIUM (BEAKER) (test 137 meq/L 136-145 uaps=995) POTASSIUM (BEAKER) (test 3.5 meq/L 3.5-5.1 fkhs=525) CHLORIDE (BEAKER) (test 102 meq/L 98-107 lulz=422) CO2 (BEAKER) (test 30 meq/L 22-29 btve=530) BLOOD UREA NITROGEN 18 mg/dL 7-21 (BEAKER) (test hrwu=445) CREATININE (BEAKER) (test 1.14 mg/dL 0.57-1.25 ifre=822) GLUCOSE RANDOM (BEAKER) 130 mg/dL 70-105 (test lhtl=642) CALCIUM (BEAKER) (test 8.6 mg/dL 8.4-10.2 ruib=151) AST (SGOT) (BEAKER) (test 53 U/L 5-34 wmvc=808) ALT (SGPT) (BEAKER) (test 25 U/L 6-55 cvtm=494) EGFR (BEAKER) (test 67 mL/min/1.73 sq m ESTIMATED GFR IS NOT zhid=5833) ACCURATE CREATININE CLEARANCE IN PREDICTING GLOMERULAR FILTRATION RATE. ESTIMATED GFR IS NOT APPLICABLE FOR DIALYSIS PATIENTS. POCT-GLUCOSE [id number] 23:13:00 Test Item Value Reference Range Comments POC-GLUCOSE METER (BEAKER) 332 mg/dL 70-110 Notified JADA NIX/TESTED AT [facility] (test ogzd=0012) [address] [facility] [address] POCT-GLUCOSE [id number] 15:30:00 Test Item Value Reference Range Comments POC-GLUCOSE METER (BEAKER) 191 mg/dL 70-110 TESTED AT [address] (test brff=8234) [facility] [address] CALCIUM, [id number] 06:07:00 Test Item Value Reference Range Comments CALCIUM IONIZED (BEAKER) (test fkor=592) 0.93 mmol/L 1.12-1.27 PH, BLOOD (BEAKER) (test yopu=5907) 7.53 [id number] 06:06:00 Test Item Value Reference Range Comments PHOSPHORUS (BEAKER) (test gjlo=148) 3.1 mg/dL 2.3-4.7 [id number] 06:06:00 Test Item Value Reference Range Comments MAGNESIUM (BEAKER) (test guti=414) 1.8 mg/dL 1.6-2.6 BASIC METABOLIC [id number] 06:06:00 Test Item Value Reference Range Comments SODIUM (BEAKER) (test 138 meq/L 136-145 hjsl=681) POTASSIUM (BEAKER) (test 3.8 meq/L 3.5-5.1 pdds=361) CHLORIDE (BEAKER) (test 104 meq/L 98-107 mhku=761) CO2 (BEAKER) (test 27 meq/L 22-29 xiwc=546) BLOOD UREA NITROGEN 19 mg/dL 7-21 (BEAKER) (test ngrs=968) CREATININE (BEAKER) (test 1.26 mg/dL 0.57-1.25 zhia=452) GLUCOSE RANDOM (BEAKER) 191 mg/dL 70-105 (test sjuy=554) CALCIUM (BEAKER) (test 8.9 mg/dL 8.4-10.2 mkca=904) EGFR (BEAKER) (test 59 mL/min/1.73 sq m ESTIMATED GFR IS NOT tweb=3178) ACCURATE CREATININE CLEARANCE IN PREDICTING GLOMERULAR FILTRATION RATE. ESTIMATED GFR IS NOT APPLICABLE FOR DIALYSIS PATIENTS. B-TYPE NATRIURETIC FACTOR (BNP)2018-12-31 05:58:00 Test Item Value Reference Range Comments B-TYPE NATRIURETIC PEPTIDE (BEAKER) (test ksxe=929) 99 pg/mL 0-100 CBC W/PLT COUNT & AUTO [id number] 05:35:00 Test Item Value Reference Range Comments WHITE BLOOD CELL COUNT 5.2 K/ L 3.5-10.5 (BEAKER) (test pfck=446) RED BLOOD CELL COUNT (BEAKER) 4.00 M/ L 4.63-6.08 (test yxio=979) HEMOGLOBIN (BEAKER) (test 7.7 GM/DL 13.7-17.5 fubz=098) HEMATOCRIT (BEAKER) (test 27.2 % 40.1-51.0 ifjh=586) MEAN CORPUSCULAR VOLUME 68.0 fL 79.0-92.2 (BEAKER) (test zkiu=079) MEAN CORPUSCULAR HEMOGLOBIN 19.3 pg 25.7-32.2 (BEAKER) (test lpki=498) MEAN CORPUSCULAR HEMOGLOBIN 28.3 GM/DL 32.3-36.5 CONC (BEAKER) (test tdyc=482) RED CELL DISTRIBUTION WIDTH 20.3 % 11.6-14.4 (BEAKER) (test kjbc=009) PLATELET COUNT (BEAKER) (test 107 K/CU MM 150-450 rrcb=692) MEAN PLATELET VOLUME (BEAKER) fL 9.4-12.4 Unable to report due to (test slne=925) abnormal Platelet population distribution. NUCLEATED RED BLOOD CELLS 0 /100 WBC 0-0 (BEAKER) (test tydl=805) NEUTROPHILS RELATIVE PERCENT 67 % (BEAKER) (test umnp=999) LYMPHOCYTES RELATIVE PERCENT 19 % (BEAKER) (test ovzm=166) MONOCYTES RELATIVE PERCENT 8 % (BEAKER) (test nejq=268) EOSINOPHILS RELATIVE PERCENT 5 % (BEAKER) (test wymf=198) BASOPHILS RELATIVE PERCENT 1 % (BEAKER) (test oihm=278) NEUTROPHILS ABSOLUTE COUNT 3.47 K/ L 1.78-5.38 (BEAKER) (test gylp=247) LYMPHOCYTES ABSOLUTE COUNT 0.99 K/ L 1.32-3.57 (BEAKER) (test donk=004) MONOCYTES ABSOLUTE COUNT 0.40 K/ L 0.30-0.82 (BEAKER) (test emvs=214) EOSINOPHILS ABSOLUTE COUNT 0.24 K/ L 0.04-0.54 (BEAKER) (test jagv=433) BASOPHILS ABSOLUTE COUNT 0.06 K/ L 0.01-0.08 (BEAKER) (test stnf=449) IMMATURE GRANULOCYTES-RELATIVE 0 % 0-1 PERCENT (BEAKER) (test hrtu=1099) POCT-GLUCOSE [id number] 21:49:00 Test Item Value Reference Range Comments POC-GLUCOSE METER (BEAKER) 291 mg/dL 70-110 TESTED AT [address] (test zosh=9275) [place] [address] POCT-GLUCOSE [id number] 17:31:00 Test Item Value Reference Range Comments POC-GLUCOSE METER (BEAKER) 247 mg/dL 70-110 TESTED AT [address] (test deqb=7416) [place] [address] BONE AND/OR JOINT IMAGING, WHOLE [id number] 16:47:00FINAL REPORT PROCEDURE: BONE SCAN, WHOLE BODY CPT CODE: [id number] INDICATION: Hepatocellular carcinoma, preoperative evaluation for liver [...] I, and chest CT. Signed: Calderon Gordillo Verified Date/ Time: 12/30/2018 16:47:37 Reading Location: [address] [place] [address], CHEST, WITHOUT [id number] 12:26:00FINAL REPORT CT Chest without contrast History: [...] MDReport Verified Date/Time: 12/30/2018 12:26:39 Reading Location: [facility] Diagnostic Imaging Reading Room - [place] [address] POCT-GLUCOSE [id number] 11:39:00 Test Item Value Reference Range Comments POC-GLUCOSE METER (BEAKER) 250 mg/dL 70-110 TESTED AT [address] (test vcbp=8319) [facility] [address] POCT-GLUCOSE [id number] 07:43:00 Test Item Value Reference Range Comments POC-GLUCOSE METER (BEAKER) 228 mg/dL 70-110 TESTED AT [address] (test cppj=0143) [facility] [address] CALCIUM, [id number] 07:32:00 Test Item Value Reference Range Comments CALCIUM IONIZED (BEAKER) (test cksa=776) 0.97 mmol/L 1.12-1.27 PH, BLOOD (BEAKER) (test ysdp=3767) 7.46 [id number] 06:46:00 Test Item Value Reference Range Comments PHOSPHORUS (BEAKER) (test nijk=674) 3.5 mg/dL 2.3-4.7 [id number] 06:46:00 Test Item Value Reference Range Comments MAGNESIUM (BEAKER) (test pbhq=017) 1.8 mg/dL 1.6-2.6 COMPREHENSIVE METABOLIC [id number] 06:46:00 Test Item Value Reference Range Comments TOTAL PROTEIN (BEAKER) 7.2 gm/dL 6.0-8.3 (test zlvv=753) ALBUMIN (BEAKER) (test 3.3 g/dL 3.5-5.0 unww=7291) ALKALINE PHOSPHATASE 137 U/L 40-150 (BEAKER) (test snmc=795) BILIRUBIN TOTAL (BEAKER) 0.8 mg/dL 0.2-1.2 (test ugqi=501) SODIUM (BEAKER) (test 136 meq/L 136-145 ohai=634) POTASSIUM (BEAKER) (test 3.7 meq/L 3.5-5.1 ivty=507) CHLORIDE (BEAKER) (test 102 meq/L 98-107 chgp=719) CO2 (BEAKER) (test 25 meq/L 22-29 uofz=246) BLOOD UREA NITROGEN 14 mg/dL 7-21 (BEAKER) (test rets=606) CREATININE (BEAKER) (test 1.06 mg/dL 0.57-1.25 lyud=413) GLUCOSE RANDOM (BEAKER) 154 mg/dL 70-105 (test kosy=551) CALCIUM (BEAKER) (test 8.8 mg/dL 8.4-10.2 aome=178) AST (SGOT) (BEAKER) (test 55 U/L 5-34 cmku=855) ALT (SGPT) (BEAKER) (test 24 U/L 6-55 wxxh=315) EGFR (BEAKER) (test 73 mL/min/1.73 sq m ESTIMATED GFR IS NOT atgs=3876) ACCURATE CREATININE CLEARANCE IN PREDICTING GLOMERULAR FILTRATION RATE. ESTIMATED GFR IS NOT APPLICABLE FOR DIALYSIS PATIENTS. CBC W/PLT COUNT & AUTO [id number] 06:20:00 Test Item Value Reference Range Comments WHITE BLOOD CELL COUNT 5.1 K/ L 3.5-10.5 (BEAKER) (test ufgi=746) RED BLOOD CELL COUNT (BEAKER) 4.24 M/ L 4.63-6.08 (test mkrn=489) HEMOGLOBIN (BEAKER) (test 8.4 GM/DL 13.7-17.5 yybq=150) HEMATOCRIT (BEAKER) (test 28.7 % 40.1-51.0 skwr=318) MEAN CORPUSCULAR VOLUME 67.7 fL 79.0-92.2 (BEAKER) (test ujym=532) MEAN CORPUSCULAR HEMOGLOBIN 19.8 pg 25.7-32.2 (BEAKER) (test iuhx=672) MEAN CORPUSCULAR HEMOGLOBIN 29.3 GM/DL 32.3-36.5 CONC (BEAKER) (test sexh=415) RED CELL DISTRIBUTION WIDTH 20.7 % 11.6-14.4 (BEAKER) (test kdtd=089) PLATELET COUNT (BEAKER) (test 121 K/CU MM 150-450 ijjh=053) MEAN PLATELET VOLUME (BEAKER) fL 9.4-12.4 Unable to report due to (test oxgw=676) abnormal Platelet population distribution. NUCLEATED RED BLOOD CELLS 0 /100 WBC 0-0 (BEAKER) (test cyts=048) NEUTROPHILS RELATIVE PERCENT 65 % (BEAKER) (test prid=429) LYMPHOCYTES RELATIVE PERCENT 20 % (BEAKER) (test dlfq=258) MONOCYTES RELATIVE PERCENT 8 % (BEAKER) (test vrei=657) EOSINOPHILS RELATIVE PERCENT 5 % (BEAKER) (test avpi=561) BASOPHILS RELATIVE PERCENT 1 % (BEAKER) (test nccp=740) NEUTROPHILS ABSOLUTE COUNT 3.36 K/ L 1.78-5.38 (BEAKER) (test yuqz=501) LYMPHOCYTES ABSOLUTE COUNT 1.02 K/ L 1.32-3.57 (BEAKER) (test eaga=685) MONOCYTES ABSOLUTE COUNT 0.42 K/ L 0.30-0.82 (BEAKER) (test bxmf=511) EOSINOPHILS ABSOLUTE COUNT 0.28 K/ L 0.04-0.54 (BEAKER) (test nlkh=345) BASOPHILS ABSOLUTE COUNT 0.05 K/ L 0.01-0.08 (BEAKER) (test emcw=644) IMMATURE GRANULOCYTES-RELATIVE 0 % 0-1 PERCENT (BEAKER) (test slhj=1537) POCT-GLUCOSE [id number] 21:51:00 Test Item Value Reference Range Comments POC-GLUCOSE METER (BEAKER) 279 mg/dL 70-110 TESTED AT [address] (test rrxl=8718) [facility] [address] POCT-GLUCOSE [id number] 17:37:00 Test Item Value Reference Range Comments POC-GLUCOSE METER (BEAKER) 151 mg/dL 70-110 TESTED AT [address] (test oqam=5442) [place] [id number] BASIC METABOLIC [id number] 16:15:00 Test Item Value Reference Range Comments SODIUM (BEAKER) (test 138 meq/L 136-145 jfnj=843) POTASSIUM (BEAKER) (test 3.7 meq/L 3.5-5.1 nsxp=546) CHLORIDE (BEAKER) (test 102 meq/L 98-107 utve=203) CO2 (BEAKER) (test 27 meq/L 22-29 zxxi=911) BLOOD UREA NITROGEN 14 mg/dL 7-21 (BEAKER) (test buko=007) CREATININE (BEAKER) (test 1.25 mg/dL 0.57-1.25 sonx=122) GLUCOSE RANDOM (BEAKER) 129 mg/dL 70-105 (test ndcv=677) CALCIUM (BEAKER) (test 9.4 mg/dL 8.4-10.2 sjti=387) EGFR (BEAKER) (test 60 mL/min/1.73 sq m ESTIMATED GFR IS NOT fnsy=5786) ACCURATE CREATININE CLEARANCE IN PREDICTING GLOMERULAR FILTRATION RATE. ESTIMATED GFR IS NOT APPLICABLE FOR DIALYSIS PATIENTS. Call [id number] 12:24:00 Test Item Value Reference Range Comments POC-GLUCOSE METER (BEAKER) 358 mg/dL 70-110 TESTED AT [address] (test dgng=7260) [facility] [address] POCT-GLUCOSE [id number] 07:53:00 Test Item Value Reference Range Comments POC-GLUCOSE METER (BEAKER) 173 mg/dL 70-110 TESTED AT [facility] [address] [facility] (test wxnl=6359) [facility] [address] POCT-GLUCOSE [id number] 22:33:00 Test Item Value Reference Range Comments POC-GLUCOSE METER (BEAKER) 228 mg/dL 70-110 TESTED AT [facility] [address] [facility] (test snij=1278) [facility] [address] [id number] 09:58:00 Test Item Value Reference Range Comments PHOSPHORUS (BEAKER) (test xooj=678) 3.5 mg/dL 2.3-4.7 [id number] 09:58:00 Test Item Value Reference Range Comments MAGNESIUM (BEAKER) (test rufe=094) 1.9 mg/dL 1.6-2.6 COMPREHENSIVE METABOLIC [id number] 09:58:00 Test Item Value Reference Range Comments TOTAL PROTEIN (BEAKER) 7.5 gm/dL 6.0-8.3 (test wejn=449) ALBUMIN (BEAKER) (test 3.5 g/dL 3.5-5.0 wvjk=7277) ALKALINE PHOSPHATASE 129 U/L 40-150 (BEAKER) (test ffxo=287) BILIRUBIN TOTAL (BEAKER) 0.9 mg/dL 0.2-1.2 (test bguo=209) SODIUM (BEAKER) (test 136 meq/L 136-145 pads=174) POTASSIUM (BEAKER) (test 3.6 meq/L 3.5-5.1 flow=491) CHLORIDE (BEAKER) (test 103 meq/L 98-107 jgmh=220) CO2 (BEAKER) (test 24 meq/L 22-29 ijbd=625) BLOOD UREA NITROGEN 14 mg/dL 7-21 (BEAKER) (test yfcb=287) CREATININE (BEAKER) (test 1.17 mg/dL 0.57-1.25 ncia=469) GLUCOSE RANDOM (BEAKER) 224 mg/dL 70-105 (test amwe=797) CALCIUM (BEAKER) (test 9.0 mg/dL 8.4-10.2 nxhl=463) AST (SGOT) (BEAKER) (test 57 U/L 5-34 fnqo=659) ALT (SGPT) (BEAKER) (test 25 U/L 6-55 gofv=064) EGFR (BEAKER) (test 65 mL/min/1.73 sq m ESTIMATED GFR IS NOT btpy=9063) ACCURATE CREATININE CLEARANCE IN PREDICTING GLOMERULAR FILTRATION RATE. ESTIMATED GFR IS NOT APPLICABLE FOR DIALYSIS PATIENTS. POCT-GLUCOSE [id number] 08:36:00 Test Item Value Reference Range Comments POC-GLUCOSE METER (BEAKER) 220 mg/dL 70-110 TESTED AT [facility] [address] [facility] (test iwhd=2808) [place] [address] CBC W/PLT COUNT & AUTO [id number] 07:42:00 Test Item Value Reference Range Comments WHITE BLOOD CELL COUNT 5.4 K/ L 3.5-10.5 (BEAKER) (test qfea=035) RED BLOOD CELL COUNT (BEAKER) 4.30 M/ L 4.63-6.08 (test dfjq=616) HEMOGLOBIN (BEAKER) (test 8.6 GM/DL 13.7-17.5 qcqr=059) HEMATOCRIT (BEAKER) (test 29.3 % 40.1-51.0 pycj=373) MEAN CORPUSCULAR VOLUME 68.1 fL 79.0-92.2 (BEAKER) (test ubdl=591) MEAN CORPUSCULAR HEMOGLOBIN 20.0 pg 25.7-32.2 (BEAKER) (test irag=330) MEAN CORPUSCULAR HEMOGLOBIN 29.4 GM/DL 32.3-36.5 CONC (BEAKER) (test utof=832) RED CELL DISTRIBUTION WIDTH 20.7 % 11.6-14.4 (BEAKER) (test cdvs=570) PLATELET COUNT (BEAKER) (test 112 K/CU MM 150-450 vpdh=219) MEAN PLATELET VOLUME (BEAKER) fL 9.4-12.4 Unable to report due to (test hsat=899) abnormal Platelet population distribution. NUCLEATED RED BLOOD CELLS 0 /100 WBC 0-0 (BEAKER) (test dtdz=650) NEUTROPHILS RELATIVE PERCENT 71 % (BEAKER) (test ajzd=907) LYMPHOCYTES RELATIVE PERCENT 15 % (BEAKER) (test xube=678) MONOCYTES RELATIVE PERCENT 9 % (BEAKER) (test numb=060) EOSINOPHILS RELATIVE PERCENT 5 % (BEAKER) (test vuav=240) BASOPHILS RELATIVE PERCENT 1 % (BEAKER) (test lrha=083) NEUTROPHILS ABSOLUTE COUNT 3.79 K/ L 1.78-5.38 (BEAKER) (test juzx=801) LYMPHOCYTES ABSOLUTE COUNT 0.79 K/ L 1.32-3.57 (BEAKER) (test lhfe=194) MONOCYTES ABSOLUTE COUNT 0.48 K/ L 0.30-0.82 (BEAKER) (test htcr=367) EOSINOPHILS ABSOLUTE COUNT 0.28 K/ L 0.04-0.54 (BEAKER) (test ubsa=639) BASOPHILS ABSOLUTE COUNT 0.04 K/ L 0.01-0.08 (BEAKER) (test hjtq=320) IMMATURE GRANULOCYTES-RELATIVE 0 % 0-1 PERCENT (BEAKER) (test cdye=6067) CALCIUM, [id number] 06:42:00 Test Item Value Reference Range Comments CALCIUM IONIZED (BEAKER) (test iksc=203) 1.07 mmol/L 1.12-1.27 PH, BLOOD (BEAKER) (test agcf=0939) 7.42 POCT-GLUCOSE [id number] 22:30:00 Test Item Value Reference Range Comments POC-GLUCOSE METER (BEAKER) 183 mg/dL 70-110 TESTED AT [address] (test xoap=7050) [place] [id number] POCT-GLUCOSE [id number] 18:41:00 Test Item Value Reference Range Comments POC-GLUCOSE METER (BEAKER) 278 mg/dL 70-110 TESTED AT [address] (test mdua=7905) [place] [id number] POCT-GLUCOSE [id number] 11:50:00 Test Item Value Reference Range Comments POC-GLUCOSE METER (BEAKER) 142 mg/dL 70-110 TESTED AT [address] (test vobu=5153) [place] [address] POCT-GLUCOSE [id number] 10:36:00 Test Item Value Reference Range Comments POC-GLUCOSE METER (BEAKER) 130 mg/dL 70-110 TESTED AT [address] (test cyqv=0186) [place] [address] POCT-GLUCOSE [id number] 07:40:00 Test Item Value Reference Range Comments POC-GLUCOSE METER (BEAKER) 145 mg/dL 70-110 TESTED AT [address] (test aczh=1871) [facility] [address] CBC W/PLT COUNT & AUTO [id number] 06:58:00 Test Item Value Reference Range Comments WHITE BLOOD CELL COUNT 5.1 K/ L 3.5-10.5 (BEAKER) (test htpu=235) RED BLOOD CELL COUNT (BEAKER) 4.31 M/ L 4.63-6.08 (test tskr=828) HEMOGLOBIN (BEAKER) (test 8.3 GM/DL 13.7-17.5 tqvr=341) HEMATOCRIT (BEAKER) (test 29.6 % 40.1-51.0 qkuy=817) MEAN CORPUSCULAR VOLUME 68.7 fL 79.0-92.2 (BEAKER) (test tzen=219) MEAN CORPUSCULAR HEMOGLOBIN 19.3 pg 25.7-32.2 (BEAKER) (test zdes=262) MEAN CORPUSCULAR HEMOGLOBIN 28.0 GM/DL 32.3-36.5 CONC (BEAKER) (test objp=619) RED CELL DISTRIBUTION WIDTH 21.1 % 11.6-14.4 (BEAKER) (test wyvv=377) PLATELET COUNT (BEAKER) (test 108 K/CU MM 150-450 mocz=177) MEAN PLATELET VOLUME (BEAKER) fL 9.4-12.4 Unable to report due to (test ovte=358) abnormal Platelet population distribution. NUCLEATED RED BLOOD CELLS 0 /100 WBC 0-0 (BEAKER) (test nycn=607) NEUTROPHILS RELATIVE PERCENT 65 % (BEAKER) (test bwiz=615) LYMPHOCYTES RELATIVE PERCENT 20 % (BEAKER) (test navk=415) MONOCYTES RELATIVE PERCENT 8 % (BEAKER) (test anoe=537) EOSINOPHILS RELATIVE PERCENT 7 % (BEAKER) (test nqxt=316) BASOPHILS RELATIVE PERCENT 1 % (BEAKER) (test wshu=817) NEUTROPHILS ABSOLUTE COUNT 3.30 K/ L 1.78-5.38 (BEAKER) (test lprv=819) LYMPHOCYTES ABSOLUTE COUNT 1.00 K/ L 1.32-3.57 (BEAKER) (test tjcd=495) MONOCYTES ABSOLUTE COUNT 0.40 K/ L 0.30-0.82 (BEAKER) (test ffzz=638) EOSINOPHILS ABSOLUTE COUNT 0.33 K/ L 0.04-0.54 (BEAKER) (test exjl=505) BASOPHILS ABSOLUTE COUNT 0.05 K/ L 0.01-0.08 (BEAKER) (test fnvc=093) IMMATURE GRANULOCYTES-RELATIVE 0 % 0-1 PERCENT (BEAKER) (test kvmi=9835) [id number] 06:56:00 Test Item Value Reference Range Comments PHOSPHORUS (BEAKER) (test xnen=440) 3.7 mg/dL 2.3-4.7 [id number] 06:56:00 Test Item Value Reference Range Comments MAGNESIUM (BEAKER) (test adth=963) 1.6 mg/dL 1.6-2.6 BASIC METABOLIC [id number] 06:56:00 Test Item Value Reference Range Comments SODIUM (BEAKER) (test 138 meq/L 136-145 bcgu=724) POTASSIUM (BEAKER) (test 3.9 meq/L 3.5-5.1 pioc=391) CHLORIDE (BEAKER) (test 105 meq/L 98-107 yjuy=420) CO2 (BEAKER) (test 25 meq/L 22-29 ktgo=610) BLOOD UREA NITROGEN 13 mg/dL 7-21 (BEAKER) (test vgqp=599) CREATININE (BEAKER) (test 1.06 mg/dL 0.57-1.25 xzlv=907) GLUCOSE RANDOM (BEAKER) 115 mg/dL 70-105 (test tgvg=276) CALCIUM (BEAKER) (test 8.8 mg/dL 8.4-10.2 ucun=402) EGFR (BEAKER) (test 73 mL/min/1.73 sq m ESTIMATED GFR IS NOT bkoy=7613) ACCURATE CREATININE CLEARANCE IN PREDICTING GLOMERULAR FILTRATION RATE. ESTIMATED GFR IS NOT APPLICABLE FOR DIALYSIS PATIENTS. CALCIUM, [id number] 06:46:00 Test Item Value Reference Range Comments CALCIUM IONIZED (BEAKER) (test wzrd=531) 0.89 mmol/L 1.12-1.27 PH, BLOOD (BEAKER) (test jbrw=3047) 7.41 PROTHROMBIN TIME/[id number] 06:38:00 Test Item Value Reference Range Comments PROTIME (BEAKER) (test jbbz=304) 15.2 seconds 11.7-14.7 INR (BEAKER) (test hphy=774) 1.2 <=5.9 RECOMMENDED COUMADIN/WARFARIN INR THERAPY RANGESSTANDARD DOSE: 2.0 - 3.0 Includes: PROPHYLAXIS forvenous thrombosis, systemic embolization; TREATMENT for venous thrombosis and/or pulmonary embolus.HIGH RISK: Target INR is 2.5-3.5 for patients with mechanical heart valves.B-TYPE NATRIURETIC FACTOR (BNP)2018-12 06:35:00 Test Item Value Reference Range Comments B-TYPE NATRIURETIC PEPTIDE (BEAKER) (test 135 pg/mL 0-100 wgod=294) POCT-GLUCOSE [id number] 22:28:00 Test Item Value Reference Range Comments POC-GLUCOSE METER (BEAKER) 109 mg/dL 70-110 TESTED AT [address] (test mqdd=9956) [place] [id number] POCT-GLUCOSE [id number] 21:07:00 Test Item Value Reference Range Comments POC-GLUCOSE METER (BEAKER) 91 mg/dL 70-110 TESTED AT [address] (test zpsr=9484) [place] [address] POCT-GLUCOSE [id number] 16:48:00 Test Item Value Reference Range Comments POC-GLUCOSE METER (BEAKER) 487 mg/dL 70-110 TESTED AT [address] (test aplc=1690) [facility] [address] LOLA, [id number] 12:58:00Reason for Exam:->recurrent variceal bleeding, portal hypertensionFINAL REPORT History: Portal hypertension, history of variceal bleeding. PROCEDURE: Following informed written consent, general endotracheal anesthesia was administered and the patient's right cervical region was prepped and draped in the usual sterile manner. Access was gained the right internal jugular vein using a micropuncture needle. A 9 [place] sheath was placed at the access site into the jugular vein. A 5 [place] multipurpose catheter and wire were used to carefully select the hepatic vein and perform a hepatic venogram. Hepatic venous pressures were then performed as described below. Following a discussion with the patient's referring barrel leveler, Dr. Cano, who also conferred with cardiology, [...] ( Ka,r): 55 mGy Signed: Kimber Diaz MDReport Verified Date/Time: 12/26/2018 12: 58:23 Reading Location: [facility] P048 Angio Body Reading Room POCT-GLUCOSE [id number] 12:50:00 Test Item Value Reference Range Comments POC-GLUCOSE METER (BEAKER) 124 mg/dL 70-110 TESTED AT [facility] [address] [facility] (test ecfc=8444) [facility] [address] POCT-GLUCOSE [id number] 10:41:00 Test Item Value Reference Range Comments POC-GLUCOSE METER (BEAKER) 158 mg/dL 70-110 TESTED AT [place] [id number] [facility] (test kvtv=4100) [facility] [address] COMPREHENSIVE METABOLIC [id number] 07:58:00 Test Item Value Reference Range Comments TOTAL PROTEIN (BEAKER) 7.2 gm/dL 6.0-8.3 (test hvcp=342) ALBUMIN (BEAKER) (test 3.0 g/dL 3.5-5.0 xles=2166) ALKALINE PHOSPHATASE 142 U/L 40-150 (BEAKER) (test juwm=958) BILIRUBIN TOTAL (BEAKER) 0.9 mg/dL 0.2-1.2 (test nigh=901) SODIUM (BEAKER) (test 138 meq/L 136-145 nkvy=554) POTASSIUM (BEAKER) (test 4.4 meq/L 3.5-5.1 fdpb=676) CHLORIDE (BEAKER) (test 106 meq/L 98-107 wnnq=799) CO2 (BEAKER) (test 26 meq/L 22-29 gors=565) BLOOD UREA NITROGEN 10 mg/dL 7-21 (BEAKER) (test twki=913) CREATININE (BEAKER) (test 0.91 mg/dL 0.57-1.25 oefw=010) GLUCOSE RANDOM (BEAKER) 134 mg/dL 70-105 (test inim=386) CALCIUM (BEAKER) (test 9.3 mg/dL 8.4-10.2 tivb=978) AST (SGOT) (BEAKER) (test 69 U/L 5-34 btdc=736) ALT (SGPT) (BEAKER) (test 29 U/L 6-55 nvry=355) EGFR (BEAKER) (test 86 mL/min/1.73 sq m ESTIMATED GFR IS NOT uske=0980) ACCURATE CREATININE CLEARANCE IN PREDICTING GLOMERULAR FILTRATION RATE. ESTIMATED GFR IS NOT APPLICABLE FOR DIALYSIS PATIENTS. PT/[id number] 07:58:00 Test Item Value Reference Range Comments PROTIME (BEAKER) (test zxir=275) 15.4 seconds 11.7-14.7 INR (BEAKER) (test zrro=424) 1.2 <=5.9 PARTIAL THROMBOPLASTIN TIME (BEAKER) (test 35.4 seconds 22.5-36.0 nxpw=801) RECOMMENDED COUMADIN/WARFARIN INR THERAPY RANGESSTANDARD DOSE: 2.0 - 3.0 Includes: PROPHYLAXIS forvenous thrombosis, systemic embolization; TREATMENT for venous thrombosis and/or pulmonary embolus.HIGH RISK: Target INR is 2.5-3.5 for patients with mechanical heart valves.CBC W/PLT COUNT & AUTO [id number] 07:52:00 Test Item Value Reference Range Comments WHITE BLOOD CELL COUNT (BEAKER) (test ouut=273) 4.6 K/ L 3.5-10.5 RED BLOOD CELL COUNT (BEAKER) (test wgsi=863) 4.35 M/ L 4.63-6.08 HEMOGLOBIN (BEAKER) (test yjil=428) 8.6 GM/DL 13.7-17.5 HEMATOCRIT (BEAKER) (test jgms=835) 30.1 % 40.1-51.0 MEAN CORPUSCULAR VOLUME (BEAKER) (test gjub=460) 69.2 fL 79.0-92.2 MEAN CORPUSCULAR HEMOGLOBIN (BEAKER) (test 19.8 pg 25.7-32.2 phvb=286) MEAN CORPUSCULAR HEMOGLOBIN CONC (BEAKER) (test 28.6 GM/DL 32.3-36.5 igcy=348) RED CELL DISTRIBUTION WIDTH (BEAKER) (test 21.3 % 11.6-14.4 dese=677) PLATELET COUNT (BEAKER) (test fjxy=219) 110 K/CU MM 150-450 MEAN PLATELET VOLUME (BEAKER) (test bryl=898) 10.1 fL 9.4-12.4 NUCLEATED RED BLOOD CELLS (BEAKER) (test 0 /100 WBC 0-0 fqpi=841) NEUTROPHILS RELATIVE PERCENT (BEAKER) (test 66 % ahsi=698) LYMPHOCYTES RELATIVE PERCENT (BEAKER) (test 19 % odgz=142) MONOCYTES RELATIVE PERCENT (BEAKER) (test 8 % uips=357) EOSINOPHILS RELATIVE PERCENT (BEAKER) (test 6 % xpnk=765) BASOPHILS RELATIVE PERCENT (BEAKER) (test 1 % ltia=208) NEUTROPHILS ABSOLUTE COUNT (BEAKER) (test 3.03 K/ L 1.78-5.38 vkrt=857) LYMPHOCYTES ABSOLUTE COUNT (BEAKER) (test 0.88 K/ L 1.32-3.57 qqif=460) MONOCYTES ABSOLUTE COUNT (BEAKER) (test 0.37 K/ L 0.30-0.82 wohk=832) EOSINOPHILS ABSOLUTE COUNT (BEAKER) (test 0.25 K/ L 0.04-0.54 atxb=996) BASOPHILS ABSOLUTE COUNT (BEAKER) (test 0.04 K/ L 0.01-0.08 strb=873) IMMATURE GRANULOCYTES-RELATIVE PERCENT (BEAKER) 0 % 0-1 (test kscd=3699) POCT-GLUCOSE [id number] 00:26:00 Test Item Value Reference Range Comments POC-GLUCOSE METER (BEAKER) 161 mg/dL 70-110 TESTED AT [facility] [address] [facility] (test eydd=4019) [facility] [address] URINALYSIS W/ [id number] 17:35:00 Test Item Value Reference Range Comments COLOR (BEAKER) (test pula=983) Light Yellow CLARITY (BEAKER) (test sziz=766) Clear SPECIFIC GRAVITY UA (BEAKER) (test yrca=162) 1.008 1.001-1.035 PH UA (BEAKER) (test pjfa=149) 7.5 5.0-8.0 PROTEIN UA (BEAKER) (test tvpr=839) 30 mg/dL Negative GLUCOSE UA (BEAKER) (test jqml=349) 30 mg/dL Negative KETONES UA (BEAKER) (test klpz=759) Negative Negative BILIRUBIN UA (BEAKER) (test kqbt=194) Negative Negative BLOOD UA (BEAKER) (test qzgs=741) Trace Negative NITRITE UA (BEAKER) (test xgui=781) Negative Negative LEUKOCYTE ESTERASE UA (BEAKER) (test mvkd=514) Negative Negative UROBILINOGEN UA (BEAKER) (test tlsv=670) 0.2 mg/dL 0.2-1.0 RBC UA (BEAKER) (test txiv=903) 1 /HPF WBC UA (BEAKER) (test cqht=673) 1 /HPF SOURCE(BEAKER) (test zwxi=5372) Urine, Voided POCT-GLUCOSE [id number] 16:55:00 Test Item Value Reference Range Comments POC-GLUCOSE METER (BEAKER) 234 mg/dL 70-110 TESTED AT [address] (test ierf=1014) [facility] [address] POCT-GLUCOSE [id number] 12:09:00 Test Item Value Reference Range Comments POC-GLUCOSE METER (BEAKER) 199 mg/dL 70-110 TESTED AT [address] (test gzfo=8787) [facility] [address] POCT-GLUCOSE [id number] 07:58:00 Test Item Value Reference Range Comments POC-GLUCOSE METER (BEAKER) 221 mg/dL 70-110 TESTED AT [address] (test zugc=8372) [facility] [address] POCT-GLUCOSE [id number] 22:49:00 Test Item Value Reference Range Comments POC-GLUCOSE METER (BEAKER) 210 mg/dL 70-110 TESTED AT [address] (test rmsc=5164) [facility] [address] POCT-GLUCOSE [id number] 14:45:00 Test Item Value Reference Range Comments POC-GLUCOSE METER (BEAKER) 128 mg/dL 70-110 TESTED AT [address] (test fssg=7360) [facility] [address] POCT-GLUCOSE [id number] 12:03:00 Test Item Value Reference Range Comments POC-GLUCOSE METER (BEAKER) 136 mg/dL 70-110 TESTED AT [address] (test quqg=6914) [facility] [address] COMPREHENSIVE METABOLIC [id number] 09:07:00 Test Item Value Reference Range Comments TOTAL PROTEIN (BEAKER) 6.9 gm/dL 6.0-8.3 Specimen slightly (test ndyj=415) hemolyzed ALBUMIN (BEAKER) (test 2.7 g/dL 3.5-5.0 Specimen slightly emib=5012) hemolyzed ALKALINE PHOSPHATASE 136 U/L 40-150 (BEAKER) (test numi=296) BILIRUBIN TOTAL (BEAKER) 1.1 mg/dL 0.2-1.2 Specimen slightly (test xinp=131) hemolyzed SODIUM (BEAKER) (test 135 meq/L 136-145 bkqt=355) POTASSIUM (BEAKER) (test 4.4 meq/L 3.5-5.1 Specimen slightly khmc=646) hemolyzed CHLORIDE (BEAKER) (test 106 meq/L 98-107 shvl=902) CO2 (BEAKER) (test 26 meq/L 22-29 vjen=185) BLOOD UREA NITROGEN 7 mg/dL 7-21 (BEAKER) (test pytq=414) CREATININE (BEAKER) (test 0.85 mg/dL 0.57-1.25 Specimen slightly dcis=559) hemolyzed GLUCOSE RANDOM (BEAKER) 118 mg/dL 70-105 (test afec=061) CALCIUM (BEAKER) (test 8.8 mg/dL 8.4-10.2 falt=049) AST (SGOT) (BEAKER) (test 69 U/L 5-34 Specimen slightly qblt=733) hemolyzed ALT (SGPT) (BEAKER) (test 28 U/L 6-55 Specimen slightly rgto=400) hemolyzed EGFR (BEAKER) (test 94 mL/min/1.73 sq m ESTIMATED GFR IS NOT ryba=3940) ACCURATE CREATININE CLEARANCE IN PREDICTING GLOMERULAR FILTRATION RATE. ESTIMATED GFR IS NOT APPLICABLE FOR DIALYSIS PATIENTS. CBC W/PLT COUNT & AUTO [id number] 08:37:00 Test Item Value Reference Range Comments WHITE BLOOD CELL COUNT 4.4 K/ L 3.5-10.5 (BEAKER) (test xvuh=928) RED BLOOD CELL COUNT (BEAKER) 4.31 M/ L 4.63-6.08 (test gikh=976) HEMOGLOBIN (BEAKER) (test 8.4 GM/DL 13.7-17.5 dmew=960) HEMATOCRIT (BEAKER) (test 30.2 % 40.1-51.0 dqxm=442) MEAN CORPUSCULAR VOLUME 70.1 fL 79.0-92.2 (BEAKER) (test xjhj=150) MEAN CORPUSCULAR HEMOGLOBIN 19.5 pg 25.7-32.2 (BEAKER) (test dbpd=606) MEAN CORPUSCULAR HEMOGLOBIN 27.8 GM/DL 32.3-36.5 CONC (BEAKER) (test twdx=863) RED CELL DISTRIBUTION WIDTH 21.9 % 11.6-14.4 (BEAKER) (test iitc=909) PLATELET COUNT (BEAKER) (test 114 K/CU MM 150-450 uhiv=601) MEAN PLATELET VOLUME (BEAKER) fL 9.4-12.4 Unable to report due to (test gqbg=518) abnormal Platelet population distribution. NUCLEATED RED BLOOD CELLS 0 /100 WBC 0-0 (BEAKER) (test almu=986) NEUTROPHILS RELATIVE PERCENT 62 % (BEAKER) (test cmja=162) LYMPHOCYTES RELATIVE PERCENT 22 % (BEAKER) (test mplu=723) MONOCYTES RELATIVE PERCENT 8 % (BEAKER) (test wdji=193) EOSINOPHILS RELATIVE PERCENT 6 % (BEAKER) (test gzwg=373) BASOPHILS RELATIVE PERCENT 1 % (BEAKER) (test uzbk=597) NEUTROPHILS ABSOLUTE COUNT 2.75 K/ L 1.78-5.38 (BEAKER) (test hewc=999) LYMPHOCYTES ABSOLUTE COUNT 0.98 K/ L 1.32-3.57 (BEAKER) (test raqv=293) MONOCYTES ABSOLUTE COUNT 0.34 K/ L 0.30-0.82 (BEAKER) (test uoqt=324) EOSINOPHILS ABSOLUTE COUNT 0.28 K/ L 0.04-0.54 (BEAKER) (test pmez=371) BASOPHILS ABSOLUTE COUNT 0.06 K/ L 0.01-0.08 (BEAKER) (test srax=669) IMMATURE GRANULOCYTES-RELATIVE 1 % 0-1 PERCENT (BEAKER) (test rdrp=3805) POCT-GLUCOSE [id number] 08:07:00 Test Item Value Reference Range Comments POC-GLUCOSE METER (BEAKER) 144 mg/dL 70-110 TESTED AT [facility] [address] [facility] (test ikgt=3706) [facility] [address] [id number] 23:43:00 Test Item Value Reference Range Comments MAGNESIUM (BEAKER) (test tlog=984) 1.7 mg/dL 1.6-2.6 POCT-GLUCOSE [id number] 22:22:00 Test Item Value Reference Range Comments POC-GLUCOSE METER (BEAKER) 211 mg/dL 70-110 TESTED AT [address] (test czhi=4103) [place] [id number] POCT-GLUCOSE [id number] 17:13:00 Test Item Value Reference Range Comments POC-GLUCOSE METER (BEAKER) 202 mg/dL 70-110 TESTED AT [address] (test nkxz=5509) [place] [address] [id number] 16:14:00 Test Item Value Reference Range Comments T3 TOTAL (BEAKER) (test swgf=276) 108 ng/dL 48-159 POCT-GLUCOSE [id number] 13:49:00 Test Item Value Reference Range Comments POC-GLUCOSE METER (BEAKER) 303 mg/dL 70-110 TESTED AT [address] (test rzyu=0519) [place] [address] POCT-GLUCOSE [id number] 12:15:00 Test Item Value Reference Range Comments POC-GLUCOSE METER (BEAKER) 304 mg/dL 70-110 Notified JADA NIX/TESTED AT [facility] (test yebw=1147) [address] [place] [address] ANTI-MITOCHONDRIAL AB, REFLEX TO [id number] 08:35:00 Test Item Value Reference Range Comments SCAN RESULT (test fndr=[id number]) POCT-GLUCOSE [id number] 08:08:00 Test Item Value Reference Range Comments POC-GLUCOSE METER (BEAKER) 146 mg/dL 70-110 TESTED AT [address] (test kjvy=5841) [place] [address] HEPATIC FUNCTION [id number] 06:32:00 Test Item Value Reference Range Comments TOTAL PROTEIN (BEAKER) (test kebq=078) 6.5 gm/dL 6.0-8.3 ALBUMIN (BEAKER) (test tskj=3462) 2.7 g/dL 3.5-5.0 BILIRUBIN TOTAL (BEAKER) (test pdgp=054) 0.8 mg/dL 0.2-1.2 BILIRUBIN DIRECT (BEAKER) (test empb=871) 0.6 mg/dL 0.1-0.5 ALKALINE PHOSPHATASE (BEAKER) (test cevv=922) 141 U/L 40-150 AST (SGOT) (BEAKER) (test ghjf=613) 66 U/L 5-34 ALT (SGPT) (BEAKER) (test pwfh=944) 27 U/L 6-55 BASIC METABOLIC [id number] 06:32:00 Test Item Value Reference Range Comments SODIUM (BEAKER) (test 137 meq/L 136-145 eiyh=283) POTASSIUM (BEAKER) (test 4.0 meq/L 3.5-5.1 jjnk=061) CHLORIDE (BEAKER) (test 106 meq/L 98-107 kcen=523) CO2 (BEAKER) (test 26 meq/L 22-29 clca=429) BLOOD UREA NITROGEN 7 mg/dL 7-21 (BEAKER) (test jwga=963) CREATININE (BEAKER) (test 0.81 mg/dL 0.57-1.25 gkml=281) GLUCOSE RANDOM (BEAKER) 134 mg/dL 70-105 (test unfz=902) CALCIUM (BEAKER) (test 8.6 mg/dL 8.4-10.2 rpnk=078) EGFR (BEAKER) (test 99 mL/min/1.73 sq m ESTIMATED GFR IS NOT plxp=5129) ACCURATE CREATININE CLEARANCE IN PREDICTING GLOMERULAR FILTRATION RATE. ESTIMATED GFR IS NOT APPLICABLE FOR DIALYSIS PATIENTS. CBC (HEMOGRAM ONLY)2018-12-23 05:34:00 Test Item Value Reference Range Comments WHITE BLOOD CELL COUNT (BEAKER) (test hyyx=092) 4.4 K/ L 3.5-10.5 RED BLOOD CELL COUNT (BEAKER) (test hozl=875) 4.11 M/ L 4.63-6.08 HEMOGLOBIN (BEAKER) (test vlby=739) 8.0 GM/DL 13.7-17.5 HEMATOCRIT (BEAKER) (test afmj=315) 28.2 % 40.1-51.0 MEAN CORPUSCULAR VOLUME (BEAKER) (test rwri=451) 68.6 fL 79.0-92.2 MEAN CORPUSCULAR HEMOGLOBIN (BEAKER) (test 19.5 pg 25.7-32.2 qlgd=837) MEAN CORPUSCULAR HEMOGLOBIN CONC (BEAKER) (test 28.4 GM/DL 32.3-36.5 kslt=219) RED CELL DISTRIBUTION WIDTH (BEAKER) (test 21.5 % 11.6-14.4 clxs=654) PLATELET COUNT (BEAKER) (test gayl=559) 121 K/CU MM 150-450 MEAN PLATELET VOLUME (BEAKER) (test bqzh=754) 10.2 fL 9.4-12.4 NUCLEATED RED BLOOD CELLS (BEAKER) (test 0 /100 WBC 0-0 dmll=990) PROTHROMBIN [id number] 05:27:00 Test Item Value Reference Range Comments PROTIME (BEAKER) (test ngev=073) 15.2 seconds 11.7-14.7 INR (BEAKER) (test odly=139) 1.2 <=5.9 RECOMMENDED COUMADIN/WARFARIN INR THERAPY RANGESSTANDARD DOSE: 2.0 - 3.0 Includes: PROPHYLAXIS forvenous thrombosis, systemic embolization; TREATMENT for venous thrombosis and/or pulmonary embolus.HIGH RISK: Target INR is 2.5-3.5 for patients with mechanical heart valves.POCT-GLUCOSE [id number] 23:11:00 Test Item Value Reference Range Comments POC-GLUCOSE METER (BEAKER) 224 mg/dL 70-110 TESTED AT [address] (test ydbs=1237) [place] [address] POCT-GLUCOSE [id number] 16:52:00 Test Item Value Reference Range Comments POC-GLUCOSE METER (BEAKER) 250 mg/dL 70-110 TESTED AT [address] (test fqqn=9500) [place] [address] POCT-GLUCOSE [id number] 11:56:00 Test Item Value Reference Range Comments POC-GLUCOSE METER (BEAKER) 310 mg/dL 70-110 TESTED AT [address] (test opto=8663) [place] [address] POCT-GLUCOSE [id number] 07:50:00 Test Item Value Reference Range Comments POC-GLUCOSE METER (BEAKER) 267 mg/dL 70-110 TESTED AT [address] (test cyiz=9792) [place] [id number] COMPREHENSIVE METABOLIC [id number] 05:05:00 Test Item Value Reference Range Comments TOTAL PROTEIN (BEAKER) 6.3 gm/dL 6.0-8.3 (test kcfk=251) ALBUMIN (BEAKER) (test 2.6 g/dL 3.5-5.0 ywuu=8839) ALKALINE PHOSPHATASE 112 U/L 40-150 (BEAKER) (test tfyb=355) BILIRUBIN TOTAL (BEAKER) 0.9 mg/dL 0.2-1.2 (test vmja=898) SODIUM (BEAKER) (test 138 meq/L 136-145 zjaw=715) POTASSIUM (BEAKER) (test 3.9 meq/L 3.5-5.1 hznt=029) CHLORIDE (BEAKER) (test 108 meq/L 98-107 xowi=923) CO2 (BEAKER) (test 25 meq/L 22-29 wcvw=556) BLOOD UREA NITROGEN 6 mg/dL 7-21 (BEAKER) (test isyi=170) CREATININE (BEAKER) (test 0.82 mg/dL 0.57-1.25 zrgo=235) GLUCOSE RANDOM (BEAKER) 146 mg/dL 70-105 (test zzdo=212) CALCIUM (BEAKER) (test 8.8 mg/dL 8.4-10.2 zufr=064) AST (SGOT) (BEAKER) (test 73 U/L 5-34 wxue=265) ALT (SGPT) (BEAKER) (test 25 U/L 6-55 yjfg=220) EGFR (BEAKER) (test 98 mL/min/1.73 sq m ESTIMATED GFR IS NOT yfpd=4737) ACCURATE CREATININE CLEARANCE IN PREDICTING GLOMERULAR FILTRATION RATE. ESTIMATED GFR IS NOT APPLICABLE FOR DIALYSIS PATIENTS. POCT-GLUCOSE [id number] 22:34:00 Test Item Value Reference Range Comments POC-GLUCOSE METER (BEAKER) 186 mg/dL 70-110 TESTED AT [facility] [address] [facility] (test nwpn=7560) [facility] [address] POCT-GLUCOSE [id number] 18:03:00 Test Item Value Reference Range Comments POC-GLUCOSE METER (BEAKER) 206 mg/dL 70-110 TESTED AT [facility] [address] [facility] (test mxnk=2311) [facility] [address] RAD, MANDIBLE, MIN 4 [id number] 17:16:00Reason for exam:->liver transplant evalShould this be [...] consider a maxillofacial CT. Signed: Anita Mauricio MDReport Verified Date/Time: 12/21/2018 17:16:26 Reading Location: [address] Reading Room POCT-GLUCOSE [id number] 11:42:00 Test Item Value Reference Range Comments POC-GLUCOSE METER (BEAKER) 305 mg/dL 70-110 Notified JADA NIX/TESTED AT [facility] (test biyd=0939) [address] [place] [id number] POCT-GLUCOSE [id number] 08:14:00 Test Item Value Reference Range Comments POC-GLUCOSE METER (BEAKER) 288 mg/dL 70-110 TESTED AT [address] (test bdbi=7282) [facility] [address] POCT-GLUCOSE [id number] 23:29:00 Test Item Value Reference Range Comments POC-GLUCOSE METER (BEAKER) 134 mg/dL 70-110 TESTED AT [address] (test anxk=9171) [facility] [address] POCT-GLUCOSE [id number] 18:42:00 Test Item Value Reference Range Comments POC-GLUCOSE METER (BEAKER) 357 mg/dL 70-110 TESTED AT [address] (test wdpg=7255) [facility] [address] CRYPTOCOCCAL [id number] 11:32:00 Test Item Value Reference Range Comments CRYPTOCOCCAL ANTIGEN, SERUM (BEAKER) (test Negative Negative, Interference tknq=5017) [id number] 11:30:00 Test Item Value Reference Range Comments RPR SCREEN (BEAKER) (test ykhz=749) Nonreactive Nonreactive HEMOGLOBIN [id number] 10:23:00 Test Item Value Reference Range Comments HEMOGLOBIN A1C (BEAKER) (test loee=176) 6.7 % 4.3-6.1 CYTOMEGALOVIRUS ANTIBODY, [id number] 09:29:00 Test Item Value Reference Range Comments CYTOMEGALOVIRUS, IGG (BEAKER) (test zvyo=0297) Positive Negative, Equivocal CMV IgG Result Interpretation: </=0.8 Al Negative 0.9-1.0 Al Equivocal &gt ;/=1.1 Al PositiveCYTOMEGALOVIRUS ANTIBODY, [id number] 09:29:00 Test Item Value Reference Range Comments CYTOMEGALOVIRUS IGM ANTIBODY (BEAKER) (test Negative Negative, Equivocal mzwm=0675) CMV IgM Result Interpretation: </=0.8 Al Negative 0.9-1.0 Al Equivocal >/=1.1 Al PositiveEBV ANTIBODY, [id number] 09:29:00 Test Item Value Reference Range Comments JAQUELINE MEDRANO VIRAL CAPSID ANTIGEN IGG (BEAKER) Positive Negative, Equivocal (test ohck=6770) Jaqueline Medrano Viral Capsid Antigen IgG Result Interpretation: </=0.8 Al Negative 0.9-1.0 Al Equivocal >/=1.1 Al PositiveEBV ANTIBODY, [id number] 09:29:00 Test Item Value Reference Range Comments JAQUELINE MEDRANO VIRAL CAPSID ANTIGEN IGM (BEAKER) Negative Negative, Equivocal (test jsja=4409) Jaqueline Medrano Viral Capsid Antigen IgM Result Interpretation: </=0.8 Al Negative 0.9-1.0 Al Equivocal >/=1.1 Al PositivePOCT-GLUCOSE [id number] 07:53:00 Test Item Value Reference Range Comments POC-GLUCOSE METER (BEAKER) 168 mg/dL 70-110 TESTED AT [facility] [address] [facility] (test gaoc=8899) [facility] [address] CBC (HEMOGRAM ONLY)2018-12-20 07:02:00 Test Item Value Reference Range Comments WHITE BLOOD CELL COUNT (BEAKER) (test xqkh=805) 4.7 K/ L 3.5-10.5 RED BLOOD CELL COUNT (BEAKER) (test tfhe=759) 4.09 M/ L 4.63-6.08 HEMOGLOBIN (BEAKER) (test lhbr=174) 8.1 GM/DL 13.7-17.5 HEMATOCRIT (BEAKER) (test nugd=279) 28.3 % 40.1-51.0 MEAN CORPUSCULAR VOLUME (BEAKER) (test oljb=155) 69.2 fL 79.0-92.2 MEAN CORPUSCULAR HEMOGLOBIN (BEAKER) (test 19.8 pg 25.7-32.2 gvfb=833) MEAN CORPUSCULAR HEMOGLOBIN CONC (BEAKER) (test 28.6 GM/DL 32.3-36.5 ullg=673) RED CELL DISTRIBUTION WIDTH (BEAKER) (test 21.8 % 11.6-14.4 azei=283) PLATELET COUNT (BEAKER) (test gpwt=883) 121 K/CU MM 150-450 MEAN PLATELET VOLUME (BEAKER) (test umjc=673) 10.6 fL 9.4-12.4 NUCLEATED RED BLOOD CELLS (BEAKER) (test 0 /100 WBC 0-0 uzby=330) CALCIUM, [id number] 06:36:00 Test Item Value Reference Range Comments CALCIUM IONIZED (BEAKER) (test ijkj=942) 1.07 mmol/L 1.12-1.27 PH, BLOOD (BEAKER) (test ixlc=7705) 7.41 HEPATIC FUNCTION [id number] 06:32:00 Test Item Value Reference Range Comments TOTAL PROTEIN (BEAKER) (test oalt=177) 6.4 gm/dL 6.0-8.3 ALBUMIN (BEAKER) (test cgkc=3961) 2.6 g/dL 3.5-5.0 BILIRUBIN TOTAL (BEAKER) (test danm=321) 0.6 mg/dL 0.2-1.2 BILIRUBIN DIRECT (BEAKER) (test rsjp=662) 0.4 mg/dL 0.1-0.5 ALKALINE PHOSPHATASE (BEAKER) (test lnmh=650) 127 U/L 40-150 AST (SGOT) (BEAKER) (test gmlt=826) 54 U/L 5-34 ALT (SGPT) (BEAKER) (test eqfn=339) 22 U/L 6-55 BASIC METABOLIC [id number] 06:32:00 Test Item Value Reference Range Comments SODIUM (BEAKER) (test 138 meq/L 136-145 vbdw=070) POTASSIUM (BEAKER) (test 3.8 meq/L 3.5-5.1 sigt=798) CHLORIDE (BEAKER) (test 104 meq/L 98-107 aedm=147) CO2 (BEAKER) (test 26 meq/L 22-29 aqca=938) BLOOD UREA NITROGEN 8 mg/dL 7-21 (BEAKER) (test lizh=352) CREATININE (BEAKER) (test 0.85 mg/dL 0.57-1.25 pawx=079) GLUCOSE RANDOM (BEAKER) 167 mg/dL 70-105 (test dgfd=957) CALCIUM (BEAKER) (test 8.3 mg/dL 8.4-10.2 zfrt=449) EGFR (BEAKER) (test 94 mL/min/1.73 sq m ESTIMATED GFR IS NOT nvgz=4145) ACCURATE CREATININE CLEARANCE IN PREDICTING GLOMERULAR FILTRATION RATE. ESTIMATED GFR IS NOT APPLICABLE FOR DIALYSIS PATIENTS. POCT-GLUCOSE [id number] 23:08:00 Test Item Value Reference Range Comments POC-GLUCOSE METER (BEAKER) 284 mg/dL 70-110 TESTED AT [address] (test rujd=5614) [place] [id number] POCT-GLUCOSE [id number] 20:20:00 Test Item Value Reference Range Comments POC-GLUCOSE METER (BEAKER) 185 mg/dL 70-110 TESTED AT [address] (test pocn=7752) [facility] [address] BLOOD GAS, [id number] 20:05:00 Test Item Value Reference Range Comments PH ARTERIAL (BEAKER) (test rfhp=411) 7.48 7.35-7.45 PCO2 ARTERIAL (BEAKER) (test qswi=489) 38 mmHg 35-45 PO2 ARTERIAL (BEAKER) (test vtqg=056) 83 mmHg 80-90 O2 SATURATION ARTERIAL (BEAKER) (test jyma=930) 97.1 % 96.0-97.0 HCO3 ARTERIAL (BEAKER) (test fuja=778) 28 mmol/L 21-29 BASE EXCESS ARTERIAL (BEAKER) (test vqtw=859) 4.0 mmol/L -2.0-3.0 PATIENT TEMPERATURE (BEAKER) (test dfja=7675) 36.3 C FIO2 (BEAKER) (test tfnp=3165) 21.0 % HEPATITIS B SURFACE [id number] 19:10:00 Test Item Value Reference Range Comments HEPATITIS B SURFACE ANTIBODY (BEAKER) (test < mIU/mL <8.0 cokf=315) VITAMIN D, [id number] 19:08:00 Test Item Value Reference Range Comments VITAMIN D 25-OH (BEAKER) (test doim=0346) 6.6 ng/mL 6.6-49.9 Effective 07/04/2017: Reference Range ChangeNew: 6.6-49.9 ng/mL Previous: 13.0 -47.8 ng/mLRecommended Vitamin D Target Range: 30.0-40.0 ng/mLCARCINOEMBRYONIC ANTIGEN (CEA)2018-12-19 19:07:00 Test Item Value Reference Range Comments CARCINOEMBRYONIC ANTIGEN (BEAKER) (test lxdz=587) 1.9 ng/mL 0.0-5.0 HEPATITIS B SURFACE [id number] 19:07:00 Test Item Value Reference Range Comments HEPATITIS B SURFACE ANTIGEN (2) (BEAKER) (test Nonreactive Nonreactive gwgl=8991) HEPATITIS B CORE ANTIBODY, [id number] 19:07:00 Test Item Value Reference Range Comments HEPATITIS B CORE IGM ANTIBODY (BEAKER) (test Nonreactive Nonreactive tfnq=768) HEPATITIS A ANTIBODY, [id number] 19:07:00 Test Item Value Reference Range Comments HEPATITIS A IGM ANTIBODY (BEAKER) (test Nonreactive Nonreactive fqln=731) [id number] 18:59:00 Test Item Value Reference Range Comments PROSTATE SPECIFIC ANTIGEN (BEAKER) (test fsnm=588) 0.5 ng/mL 0.0-4.0 HIV-1 ANTIGEN WITH HIV-1/2 [id number] 18:59:00 Test Item Value Reference Range Comments HIV-1 ANTIGEN WITH HIV 1\T\2 ANTIBODY (2) Nonreactive Nonreactive (BEAKER) (test sucy=5997) [id number] 18:58:00 Test Item Value Reference Range Comments TRANSFERRIN (BEAKER) (test uote=314) 288 mg/dL 174-382 [id number] 18:22:00 Test Item Value Reference Range Comments THYROID STIMULATING HORMONE (BEAKER) (test 5.24 uIU/mL 0.35-4.94 blkt=648) [id number] 18:19:00 Test Item Value Reference Range Comments T4 TOTAL (BEAKER) (test tbne=249) 6.9 ug/dL 4.9-11.7 URIC [id number] 18:01:00 Test Item Value Reference Range Comments URIC ACID (BEAKER) (test xmla=290) 4.7 mg/dL 2.6-7.2 [id number] 18:01:00 Test Item Value Reference Range Comments MAGNESIUM (BEAKER) (test lyra=105) 1.7 mg/dL 1.6-2.6 [id number] 18:01:00 Test Item Value Reference Range Comments PHOSPHORUS (BEAKER) (test dvfq=006) 2.6 mg/dL 2.3-4.7 LIPID [id number] 18:01:00 Test Item Value Reference Range Comments TRIGLYCERIDES (BEAKER) (test zkjw=088) 47 mg/dL CHOLESTEROL (BEAKER) (test gdau=519) 104 mg/dL HDL CHOLESTEROL (BEAKER) (test zlel=294) 33 mg/dL LDL CHOLESTEROL CALCULATED (BEAKER) (test 62 mg/dL czts=648) Triglyceride Reference Range: Low Risk <150 Borderline [...] Range Comments GAMMA GLUTAMYL TRANSFERASE (BEAKER) (test cthw=373) 24 U/L 9-64 [id number] 18:00:00 Test Item Value Reference Range Comments ETHANOL (BEAKER) (test ckwh=473) < mg/dL <=10 [id number] 12:48:00 Test Item Value Reference Range Comments D-DIMER QUANTITATIVE (BEAKER) (test jnue=355) 6.75 MG/L FEU <0.50 Intended Use: The D-Dimer Assay can be used to aid in the diagnosis of Deep Vein Thrombosis (DVT) and Pulmonary Embolism Disease (PED).In patients with low pre-test probability, various studies concerning STA Liatest D-dimer test have reported that with a cutoff value of 0.50 MG/L FEU, the Negative Predictive Value (NPV) regarding the exclusion of thrombosis is within 95-100% range.[id number] 12:41:00 Test Item Value Reference Range Comments PARTIAL THROMBOPLASTIN TIME (BEAKER) (test 35.4 seconds 22.5-36.0 mosj=303) PROTHROMBIN TIME/[id number] 12:39:00 Test Item Value Reference Range Comments PROTIME (BEAKER) (test toia=844) 14.9 seconds 11.7-14.7 INR (BEAKER) (test twaf=008) 1.2 <=5.9 RECOMMENDED COUMADIN/WARFARIN INR THERAPY RANGESSTANDARD DOSE: 2.0 - 3.0 Includes: PROPHYLAXIS forvenous thrombosis, systemic embolization; TREATMENT for venous thrombosis and/or pulmonary embolus.HIGH RISK: Target INR is 2.5-3.5 for patients with mechanical heart valves.POCT-GLUCOSE [id number] 11:36:00 Test Item Value Reference Range Comments POC-GLUCOSE METER (BEAKER) 267 mg/dL 70-110 TESTED AT [address] (test ihzl=9795) [place] [id number] POCT-GLUCOSE [id number] 10:02:00 Test Item Value Reference Range Comments POC-GLUCOSE METER (BEAKER) 249 mg/dL 70-110 TESTED AT [address] (test okdx=1555) [place] [id number] MISCELLANEOUS LAB [id number] 07:59:00 Test Item Value Reference Range Comments SCAN RESULT (test uxsg=9542082) POCT-GLUCOSE [id number] 07:50:00 Test Item Value Reference Range Comments POC-GLUCOSE METER (BEAKER) 228 mg/dL 70-110 TESTED AT [address] (test mojn=1760) [place] [id number] HEPATIC FUNCTION [id number] 06:21:00 Test Item Value Reference Range Comments TOTAL PROTEIN (BEAKER) (test efck=860) 6.8 gm/dL 6.0-8.3 ALBUMIN (BEAKER) (test wzde=8282) 2.8 g/dL 3.5-5.0 BILIRUBIN TOTAL (BEAKER) (test qqhl=205) 0.9 mg/dL 0.2-1.2 BILIRUBIN DIRECT (BEAKER) (test yrgq=625) 0.5 mg/dL 0.1-0.5 ALKALINE PHOSPHATASE (BEAKER) (test wrvj=848) 117 U/L 40-150 AST (SGOT) (BEAKER) (test jkzd=838) 47 U/L 5-34 ALT (SGPT) (BEAKER) (test egiq=774) 18 U/L 6-55 BASIC METABOLIC [id number] 06:21:00 Test Item Value Reference Range Comments SODIUM (BEAKER) (test 136 meq/L 136-145 jazh=636) POTASSIUM (BEAKER) (test 3.8 meq/L 3.5-5.1 ojtq=492) CHLORIDE (BEAKER) (test 104 meq/L 98-107 mtuo=089) CO2 (BEAKER) (test 26 meq/L 22-29 vsnn=623) BLOOD UREA NITROGEN 7 mg/dL 7-21 (BEAKER) (test nead=861) CREATININE (BEAKER) (test 0.84 mg/dL 0.57-1.25 wrik=187) GLUCOSE RANDOM (BEAKER) 152 mg/dL 70-105 (test yzqj=624) CALCIUM (BEAKER) (test 8.4 mg/dL 8.4-10.2 pjwv=690) EGFR (BEAKER) (test 95 mL/min/1.73 sq m ESTIMATED GFR IS NOT wspq=2827) ACCURATE CREATININE CLEARANCE IN PREDICTING GLOMERULAR FILTRATION RATE. ESTIMATED GFR IS NOT APPLICABLE FOR DIALYSIS PATIENTS. CBC (HEMOGRAM ONLY)2018-12-19 06:02:00 Test Item Value Reference Range Comments WHITE BLOOD CELL COUNT (BEAKER) (test vuij=617) 5.3 K/ L 3.5-10.5 RED BLOOD CELL COUNT (BEAKER) (test wlaq=137) 4.18 M/ L 4.63-6.08 HEMOGLOBIN (BEAKER) (test gvsb=363) 8.2 GM/DL 13.7-17.5 HEMATOCRIT (BEAKER) (test rjoy=432) 28.9 % 40.1-51.0 MEAN CORPUSCULAR VOLUME (BEAKER) (test slyt=582) 69.1 fL 79.0-92.2 MEAN CORPUSCULAR HEMOGLOBIN (BEAKER) (test 19.6 pg 25.7-32.2 lyxv=683) MEAN CORPUSCULAR HEMOGLOBIN CONC (BEAKER) (test 28.4 GM/DL 32.3-36.5 rfzf=214) RED CELL DISTRIBUTION WIDTH (BEAKER) (test 21.5 % 11.6-14.4 vqpm=085) PLATELET COUNT (BEAKER) (test ndnd=237) 130 K/CU MM 150-450 MEAN PLATELET VOLUME (BEAKER) (test qszr=076) 9.9 fL 9.4-12.4 NUCLEATED RED BLOOD CELLS (BEAKER) (test 0 /100 WBC 0-0 dcsq=413) POCT-GLUCOSE [id number] 21:21:00 Test Item Value Reference Range Comments POC-GLUCOSE METER (BEAKER) 213 mg/dL 70-110 TESTED AT [facility] [address] [facility] (test ziod=6700) [facility] [address] MR, ABDOMEN, [id number] 19:09:00Addendum BeginsREPORT STATUS:A Press Reader error in the third 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 It should read: Questionable small nonocclusive thrombus in the high SUPERIOR mesenteric vein. Signed: Roe Solorzano MDReport Verified Date/Time: 12/18/2018 19:09:20 Reading Location: [address] Body Reading RoomAddendum EndsFINAL REPORT [...] MDReport Verified Date/Time: 12/17/2018 10:57:37 Reading Location: [facility] C013Y CT Body Reading Room POCT-GLUCOSE [id number] 17:47:00 Test Item Value Reference Range Comments POC-GLUCOSE METER (BEturntable.fm) 199 mg/dL 70-110 TESTED AT [address] (test kslh=9421) [place] [address] POCT-GLUCOSE [id number] 12:02:00 Test Item Value Reference Range Comments POC-GLUCOSE METER (BEAKER) 301 mg/dL 70-110 TESTED AT [address] (test ieni=1572) [place] [address] HEPATITIS C PCR, [id number] 09:48:00 Test Item Value Reference Range Comments HCV NUMERIC RESULT (BEAKER) (test rsgt=3583) 133288 IU/mL <15 This test uses a Real-Time Polymerase Chain Reaction (RT-PCR) methodology and was performed using MAJOR Ampliprep/MAJOR TaqMan HCV test kit version 2.0 ( [employer]).Reportable range for this assay is 15 - 100,000, 000 IU per mL (1.18 - 8.00 Log IU/mL).POCT-GLUCOSE [id number] 09:18:00 Test Item Value Reference Range Comments POC-GLUCOSE METER (BEAKER) 284 mg/dL 70-110 TESTED AT [address] (test kcal=1238) [place] [address] HEPATIC FUNCTION [id number] 07:08:00 Test Item Value Reference Range Comments TOTAL PROTEIN (BEAKER) (test mmbz=321) 6.5 gm/dL 6.0-8.3 ALBUMIN (BEAKER) (test olfm=2349) 2.7 g/dL 3.5-5.0 BILIRUBIN TOTAL (BEAKER) (test kgwk=109) 0.9 mg/dL 0.2-1.2 BILIRUBIN DIRECT (BEAKER) (test wbvf=431) 0.5 mg/dL 0.1-0.5 ALKALINE PHOSPHATASE (BEAKER) (test ehii=934) 103 U/L 40-150 AST (SGOT) (BEAKER) (test mnhv=990) 40 U/L 5-34 ALT (SGPT) (BEAKER) (test vhqn=113) 16 U/L 6-55 BASIC METABOLIC [id number] 07:08:00 Test Item Value Reference Range Comments SODIUM (BEAKER) (test 135 meq/L 136-145 vyxv=533) POTASSIUM (BEAKER) (test 4.0 meq/L 3.5-5.1 shty=296) CHLORIDE (BEAKER) (test 105 meq/L 98-107 tlqb=032) CO2 (BEAKER) (test 25 meq/L 22-29 etnn=043) BLOOD UREA NITROGEN 9 mg/dL 7-21 (BEAKER) (test zufj=356) CREATININE (BEAKER) (test 0.88 mg/dL 0.57-1.25 fztk=037) GLUCOSE RANDOM (BEAKER) 175 mg/dL 70-105 (test igno=159) CALCIUM (BEAKER) (test 8.2 mg/dL 8.4-10.2 qjtd=696) EGFR (BEAKER) (test 90 mL/min/1.73 sq m ESTIMATED GFR IS NOT gxrp=8741) ACCURATE CREATININE CLEARANCE IN PREDICTING GLOMERULAR FILTRATION RATE. ESTIMATED GFR IS NOT APPLICABLE FOR DIALYSIS PATIENTS. CBC (HEMOGRAM ONLY)2018-12-18 06:39:00 Test Item Value Reference Range Comments WHITE BLOOD CELL COUNT (BEAKER) (test wejd=604) 6.9 K/ L 3.5-10.5 RED BLOOD CELL COUNT (BEAKER) (test npag=592) 4.15 M/ L 4.63-6.08 HEMOGLOBIN (BEAKER) (test gfzb=630) 8.0 GM/DL 13.7-17.5 HEMATOCRIT (BEAKER) (test ipli=571) 28.7 % 40.1-51.0 MEAN CORPUSCULAR VOLUME (BEAKER) (test knuo=658) 69.2 fL 79.0-92.2 MEAN CORPUSCULAR HEMOGLOBIN (BEAKER) (test 19.3 pg 25.7-32.2 uyge=056) MEAN CORPUSCULAR HEMOGLOBIN CONC (BEAKER) (test 27.9 GM/DL 32.3-36.5 heck=423) RED CELL DISTRIBUTION WIDTH (BEAKER) (test 21.3 % 11.6-14.4 ocbh=860) PLATELET COUNT (BEAKER) (test xayw=544) 122 K/CU MM 150-450 NUCLEATED RED BLOOD CELLS (BEAKER) (test 0 /100 WBC 0-0 yhyh=944) POCT-GLUCOSE [id number] 22:48:00 Test Item Value Reference Range Comments POC-GLUCOSE METER (BEAKER) 237 mg/dL 70-110 TESTED AT [address] (test tgyh=4926) [facility] [address] ANTI-NUCLEAR ANTIBODY (WILLOW)2018-12-17 11:52:00 Test Item Value Reference Range Comments ANTI-NUCLEAR ANTIBODY (WILLOW) (BEAKER) (test Positive Negative sgum=318) Test performed by IFA method.WILLOW TITER AND [id number] 11:52:00 Test Item Value Reference Range Comments WILLOW TITER (BEAKER) (test dpyn=0255) :160 WILLOW PATTERN (BEAKER) (test aton=3788) Speckled [id number] 05:45:00 Test Item Value Reference Range Comments MAGNESIUM (BEAKER) (test 2.1 mg/dL 1.6-2.6 Specimen slightly hemolyzed dcmu=076) [id number] 05:45:00 Test Item Value Reference Range Comments PHOSPHORUS (BEAKER) (test 3.0 mg/dL 2.3-4.7 Specimen slightly hemolyzed bxhb=970) BASIC METABOLIC [id number] 05:45:00 Test Item Value Reference Range Comments SODIUM (BEAKER) (test 136 meq/L 136-145 vdbo=751) POTASSIUM (BEAKER) (test 4.3 meq/L 3.5-5.1 Specimen slightly sijj=915) hemolyzed CHLORIDE (BEAKER) (test 106 meq/L 98-107 kfqt=149) CO2 (BEAKER) (test 25 meq/L 22-29 quzu=909) BLOOD UREA NITROGEN 15 mg/dL 7-21 (BEAKER) (test qlol=740) CREATININE (BEAKER) (test 1.06 mg/dL 0.57-1.25 Specimen slightly gurn=229) hemolyzed GLUCOSE RANDOM (BEAKER) 222 mg/dL 70-105 (test rcfj=469) CALCIUM (BEAKER) (test 8.1 mg/dL 8.4-10.2 wvne=109) EGFR (BEAKER) (test 73 mL/min/1.73 sq m ESTIMATED GFR IS NOT dwol=5529) ACCURATE CREATININE CLEARANCE IN PREDICTING GLOMERULAR FILTRATION RATE. ESTIMATED GFR IS NOT APPLICABLE FOR DIALYSIS PATIENTS. HEPATIC FUNCTION [id number] 05:45:00 Test Item Value Reference Range Comments TOTAL PROTEIN (BEAKER) (test 6.6 gm/dL 6.0-8.3 Specimen slightly hemolyzed nxhy=865) ALBUMIN (BEAKER) (test 2.6 g/dL 3.5-5.0 Specimen slightly hemolyzed lifb=7307) BILIRUBIN TOTAL (BEAKER) (test 0.9 mg/dL 0.2-1.2 Specimen slightly hemolyzed mlpb=140) BILIRUBIN DIRECT (BEAKER) (test 0.5 mg/dL 0.1-0.5 Specimen slightly hemolyzed noiy=978) ALKALINE PHOSPHATASE (BEAKER) 109 U/L 40-150 (test jupv=238) AST (SGOT) (BEAKER) (test 53 U/L 5-34 Specimen slightly hemolyzed awaq=152) ALT (SGPT) (BEAKER) (test 21 U/L 6-55 Specimen slightly hemolyzed piff=996) CBC W/PLT COUNT & AUTO [id number] 04:48:00 Test Item Value Reference Range Comments WHITE BLOOD CELL COUNT 8.1 K/ L 3.5-10.5 (BEAKER) (test hrmq=878) RED BLOOD CELL COUNT (BEAKER) 4.33 M/ L 4.63-6.08 (test ttyd=937) HEMOGLOBIN (BEAKER) (test 8.3 GM/DL 13.7-17.5 tjqb=759) HEMATOCRIT (BEAKER) (test 29.9 % 40.1-51.0 aqoj=582) MEAN CORPUSCULAR VOLUME 69.1 fL 79.0-92.2 (BEAKER) (test slsm=951) MEAN CORPUSCULAR HEMOGLOBIN 19.2 pg 25.7-32.2 (BEAKER) (test syuk=535) MEAN CORPUSCULAR HEMOGLOBIN 27.8 GM/DL 32.3-36.5 CONC (BEAKER) (test jzzx=702) RED CELL DISTRIBUTION WIDTH 21.1 % 11.6-14.4 (BEAKER) (test xnxb=336) PLATELET COUNT (BEAKER) (test 141 K/CU MM 150-450 harz=289) MEAN PLATELET VOLUME (BEAKER) fL 9.4-12.4 Unable to report due to (test itvz=729) abnormal Platelet population distribution. NUCLEATED RED BLOOD CELLS 0 /100 WBC 0-0 (BEAKER) (test dhlm=180) NEUTROPHILS RELATIVE PERCENT 70 % (BEAKER) (test enex=697) LYMPHOCYTES RELATIVE PERCENT 15 % (BEAKER) (test gsee=205) MONOCYTES RELATIVE PERCENT 9 % (BEAKER) (test dqcn=505) EOSINOPHILS RELATIVE PERCENT 6 % (BEAKER) (test gkfe=565) BASOPHILS RELATIVE PERCENT 1 % (BEAKER) (test fjpt=871) NEUTROPHILS ABSOLUTE COUNT 5.60 K/ L 1.78-5.38 (BEAKER) (test exlh=153) LYMPHOCYTES ABSOLUTE COUNT 1.18 K/ L 1.32-3.57 (BEAKER) (test tcyc=621) MONOCYTES ABSOLUTE COUNT 0.72 K/ L 0.30-0.82 (BEAKER) (test gqzy=871) EOSINOPHILS ABSOLUTE COUNT 0.46 K/ L 0.04-0.54 (BEAKER) (test ufuz=711) BASOPHILS ABSOLUTE COUNT 0.08 K/ L 0.01-0.08 (BEAKER) (test slza=758) IMMATURE GRANULOCYTES-RELATIVE 0 % 0-1 PERCENT (BEAKER) (test lqsk=3875) HEPATITIS C [id number] 21:49:00 Test Item Value Reference Range Comments HEPATITIS C ANTIBODY (BEAKER) (test ynmw=786) Reactive Nonreactive HEPATITIS A ANTIBODY, [id number] 21:49:00 Test Item Value Reference Range Comments HEPATITIS A IGG ANTIBODY (BEAKER) (test qdkp=4198) Reactive Nonreactive ALPHA FETOPROTEIN (AFP), TUMOR [id number] 21:48:00 Test Item Value Reference Range Comments ALPHA-FETOPROTEIN (BEAKER) (test ozwm=0278) 5.3 ng/mL <10.0 HEPATITIS B CORE ANTIBODY, [id number] 21:48:00 Test Item Value Reference Range Comments HEPATITIS B CORE TOTAL ANTIBODY (BEAKER) (test Nonreactive Nonreactive gsmb=310) [id number] 21:13:00 Test Item Value Reference Range Comments FERRITIN (BEAKER) (test qltb=631) 17 ng/mL 5-275 [id number] 20:56:00 Test Item Value Reference Range Comments ALPHA-1 ANTITRYPSIN (BEAKER) 137.60 mg/dL 90.00-200.00 Specimen slightly hemolyzed (test xlfp=393) IRON, TIBC, % SAT. (WITHOUT FERRITIN)2018-12-16 20:55:00 Test Item Value Reference Range Comments IRON (BEAKER) (test qxpb=410) 56.0 ug/dL 40.0-160.0 TOTAL IRON BINDING CAPACITY (BEAKER) (test 360 ug/dL 250-450 qazh=255) IRON % SATURATION (2) (BEAKER) (test rjoh=3139) 16 % 20-55 [id number] 20:52:00 Test Item Value Reference Range Comments ETHANOL (BEAKER) (test txft=820) < mg/dL <=10 HEMOGLOBIN AND [id number] 20:37:00 Test Item Value Reference Range Comments HEMOGLOBIN (BEAKER) (test zwlg=230) 9.2 GM/DL 13.7-17.5 HEMATOCRIT (BEAKER) (test pyfj=891) 32.6 % 40.1-51.0 U/S, ABDOMINAL, WITH [id number] 18:22:00Reason for exam:->liver cirrhosis, variceal bleed, please [...] MDReport Verified Date/Time: 12/16/2018 18:22:50 Reading Location: [address] Ultrasound Reading Room [facility] METABOLIC [id number] 12:25:00 Test Item Value Reference Range Comments SODIUM (BEAKER) (test 135 meq/L 136-145 jbot=678) POTASSIUM (BEAKER) (test 4.7 meq/L 3.5-5.1 snyr=818) CHLORIDE (BEAKER) (test 105 meq/L 98-107 mjlj=688) CO2 (BEAKER) (test 25 meq/L 22-29 hrkt=918) BLOOD UREA NITROGEN 16 mg/dL 7-21 (BEAKER) (test aizo=923) CREATININE (BEAKER) (test 1.01 mg/dL 0.57-1.25 hprw=633) GLUCOSE RANDOM (BEAKER) 162 mg/dL 70-105 (test qlhd=274) CALCIUM (BEAKER) (test 8.1 mg/dL 8.4-10.2 dyld=595) EGFR (BEAKER) (test 77 mL/min/1.73 sq m ESTIMATED GFR IS NOT ftwp=2292) ACCURATE CREATININE CLEARANCE IN PREDICTING GLOMERULAR FILTRATION RATE. ESTIMATED GFR IS NOT APPLICABLE FOR DIALYSIS PATIENTS. HEMOGLOBIN AND [id number] 12:06:00 Test Item Value Reference Range Comments HEMOGLOBIN (BEAKER) (test kdyr=687) 8.6 GM/DL 13.7-17.5 HEMATOCRIT (BEAKER) (test mkje=408) 31.4 % 40.1-51.0 HEMOGLOBIN AND [id number] 08:52:00 Test Item Value Reference Range Comments HEMOGLOBIN (BEAKER) (test flyy=247) 8.7 GM/DL 13.7-17.5 HEMATOCRIT (BEAKER) (test mhbg=329) 30.9 % 40.1-51.0 CALCIUM, [id number] 05:54:00 Test Item Value Reference Range Comments CALCIUM IONIZED (BEAKER) (test eznz=318) 1.08 mmol/L 1.12-1.27 PH, BLOOD (BEAKER) (test alaw=1639) 7.34 [id number] 05:50:00 Test Item Value Reference Range Comments PHOSPHORUS (BEAKER) (test udrx=062) 3.4 mg/dL 2.3-4.7 [id number] 05:50:00 Test Item Value Reference Range Comments MAGNESIUM (BEAKER) (test yfbe=469) 1.6 mg/dL 1.6-2.6 BASIC METABOLIC [id number] 05:50:00 Test Item Value Reference Range Comments SODIUM (BEAKER) (test 138 meq/L 136-145 kdcu=168) POTASSIUM (BEAKER) (test 5.4 meq/L 3.5-5.1 jker=834) CHLORIDE (BEAKER) (test 108 meq/L 98-107 qkij=429) CO2 (BEAKER) (test 22 meq/L 22-29 kliv=707) BLOOD UREA NITROGEN 14 mg/dL 7-21 (BEAKER) (test yyog=927) CREATININE (BEAKER) (test 1.00 mg/dL 0.57-1.25 tftu=348) GLUCOSE RANDOM (BEAKER) 144 mg/dL 70-105 (test gqgs=925) CALCIUM (BEAKER) (test 8.1 mg/dL 8.4-10.2 osmn=572) EGFR (BEAKER) (test 78 mL/min/1.73 sq m ESTIMATED GFR IS NOT xzks=3061) ACCURATE CREATININE CLEARANCE IN PREDICTING GLOMERULAR FILTRATION RATE. ESTIMATED GFR IS NOT APPLICABLE FOR DIALYSIS PATIENTS. CBC W/PLT COUNT & AUTO [id number] 05:44:00 Test Item Value Reference Range Comments WHITE BLOOD CELL COUNT 7.2 K/ L 3.5-10.5 (BEAKER) (test xpdg=698) RED BLOOD CELL COUNT (BEAKER) 4.48 M/ L 4.63-6.08 (test ieqz=155) HEMOGLOBIN (BEAKER) (test 8.7 GM/DL 13.7-17.5 rghh=562) HEMATOCRIT (BEAKER) (test 31.4 % 40.1-51.0 hppu=260) MEAN CORPUSCULAR VOLUME 70.1 fL 79.0-92.2 (BEAKER) (test gdei=312) MEAN CORPUSCULAR HEMOGLOBIN 19.4 pg 25.7-32.2 (BEAKER) (test rabs=205) MEAN CORPUSCULAR HEMOGLOBIN 27.7 GM/DL 32.3-36.5 CONC (BEAKER) (test mepg=182) RED CELL DISTRIBUTION WIDTH 21.0 % 11.6-14.4 (BEAKER) (test mjho=418) PLATELET COUNT (BEAKER) (test 135 K/CU MM 150-450 kily=257) MEAN PLATELET VOLUME (BEAKER) fL 9.4-12.4 Unable to report due to (test hfxt=550) abnormal Platelet population distribution. NUCLEATED RED BLOOD CELLS 0 /100 WBC 0-0 (BEAKER) (test umqb=648) NEUTROPHILS RELATIVE PERCENT 72 % (BEAKER) (test xtpz=377) LYMPHOCYTES RELATIVE PERCENT 12 % (BEAKER) (test yutw=047) MONOCYTES RELATIVE PERCENT 11 % (BEAKER) (test yoms=489) EOSINOPHILS RELATIVE PERCENT 4 % (BEAKER) (test ovsg=984) BASOPHILS RELATIVE PERCENT 1 % (BEAKER) (test bwcu=257) NEUTROPHILS ABSOLUTE COUNT 5.15 K/ L 1.78-5.38 (BEAKER) (test dcxr=050) LYMPHOCYTES ABSOLUTE COUNT 0.89 K/ L 1.32-3.57 (BEAKER) (test evib=166) MONOCYTES ABSOLUTE COUNT 0.76 K/ L 0.30-0.82 (BEAKER) (test wxcp=345) EOSINOPHILS ABSOLUTE COUNT 0.29 K/ L 0.04-0.54 (BEAKER) (test qdon=224) BASOPHILS ABSOLUTE COUNT 0.06 K/ L 0.01-0.08 (BEAKER) (test fzdd=396) IMMATURE GRANULOCYTES-RELATIVE 0 % 0-1 PERCENT (BEAKER) (test udsi=0255) HEMOGLOBIN AND [id number] 00:02:00 Test Item Value Reference Range Comments HEMOGLOBIN (BEAKER) (test supg=417) 7.8 GM/DL 13.7-17.5 HEMATOCRIT (BEAKER) (test sjae=671) 28.0 % 40.1-51.0 POCT-GLUCOSE [id number] 23:24:00 Test Item Value Reference Range Comments POC-GLUCOSE METER (BEAKER) 168 mg/dL 70-110 TESTED AT [facility] [address] [facility] (test brlm=4537) [facility] [address] RAD, CHEST, 1 VIEW, NON [id number] 23:07:00Reason for exam:->NG tube placementShould this be [...] gaseous distention of the stomach. Signed: Elmer [place] Verified Date/Time: 12/15/2018 23:07:08 Reading Location: [facility] C013Y CT Body Reading Room HEMOGLOBIN AND [id number] 20:12:00 Test Item Value Reference Range Comments HEMOGLOBIN (BEAKER) (test zvtc=005) 7.4 GM/DL 13.7-17.5 HEMATOCRIT (BEAKER) (test kalu=671) 26.7 % 40.1-51.0 RAD, CHEST, 1 VIEW, NON [id number] 18:43:00Reason for exam:->s/p intubationShould this be performed [...] MDR[place]ort Verified Date/Time: 12/15/2018 18:43:24 Reading Location: [address] Ortho Consult Reading Room Electronically signed by: JORGE MTZ M.D. on 06:43 PMBASIC METABOLIC [id number] 14:38:00 Test Item Value Reference Range Comments SODIUM (BEAKER) (test 137 meq/L 136-145 spzs=765) POTASSIUM (BEAKER) (test 4.8 meq/L 3.5-5.1 Specimen slightly fwwq=590) hemolyzed CHLORIDE (BEAKER) (test 105 meq/L 98-107 zpbk=708) CO2 (BEAKER) (test 25 meq/L 22-29 ofsg=564) BLOOD UREA NITROGEN 11 mg/dL 7-21 (BEAKER) (test ausg=326) CREATININE (BEAKER) (test 0.84 mg/dL 0.57-1.25 Specimen slightly qtcp=615) hemolyzed GLUCOSE RANDOM (BEAKER) 114 mg/dL 70-105 (test bobd=433) CALCIUM (BEAKER) (test 8.5 mg/dL 8.4-10.2 wjig=590) EGFR (BEAKER) (test 95 mL/min/1.73 sq m ESTIMATED GFR IS NOT szjl=9590) ACCURATE CREATININE CLEARANCE IN PREDICTING GLOMERULAR FILTRATION RATE. ESTIMATED GFR IS NOT APPLICABLE FOR DIALYSIS PATIENTS. Specimen slightly ictericCOMPREHENSIVE METABOLIC [id number] 14:38:00 Test Item Value Reference Range Comments TOTAL PROTEIN (BEAKER) 7.2 gm/dL 6.0-8.3 Specimen slightly (test wtbj=691) hemolyzed ALBUMIN (BEAKER) (test 2.9 g/dL 3.5-5.0 Specimen slightly fhwd=9714) hemolyzed ALKALINE PHOSPHATASE 125 U/L 40-150 (BEAKER) (test mbrb=566) BILIRUBIN TOTAL (BEAKER) 2.5 mg/dL 0.2-1.2 Specimen slightly (test nhsg=288) hemolyzed SODIUM (BEAKER) (test 137 meq/L 136-145 gyfq=369) POTASSIUM (BEAKER) (test 4.8 meq/L 3.5-5.1 Specimen slightly pnvl=148) hemolyzed CHLORIDE (BEAKER) (test 105 meq/L 98-107 jwsf=687) CO2 (BEAKER) (test 25 meq/L 22-29 beto=353) BLOOD UREA NITROGEN 11 mg/dL 7-21 (BEAKER) (test jonb=411) CREATININE (BEAKER) (test 0.84 mg/dL 0.57-1.25 Specimen slightly rgtw=645) hemolyzed GLUCOSE RANDOM (BEAKER) 114 mg/dL 70-105 (test ywkw=786) CALCIUM (BEAKER) (test 8.5 mg/dL 8.4-10.2 isfx=970) AST (SGOT) (BEAKER) (test 56 U/L 5-34 Specimen slightly qrco=029) hemolyzed ALT (SGPT) (BEAKER) (test 21 U/L 6-55 Specimen slightly dmmd=675) hemolyzed EGFR (BEAKER) (test 95 mL/min/1.73 sq m ESTIMATED GFR IS NOT bsse=6679) ACCURATE CREATININE CLEARANCE IN PREDICTING GLOMERULAR FILTRATION RATE. ESTIMATED GFR IS NOT APPLICABLE FOR DIALYSIS PATIENTS. Specimen slightly ictericCBC (HEMOGRAM ONLY)2018-12-15 14:35:00 Test Item Value Reference Range Comments WHITE BLOOD CELL COUNT (BEAKER) (test vclx=583) 5.6 K/ L 3.5-10.5 RED BLOOD CELL COUNT (BEAKER) (test ridh=312) 4.43 M/ L 4.63-6.08 HEMOGLOBIN (BEAKER) (test jtlc=339) 8.5 GM/DL 13.7-17.5 HEMATOCRIT (BEAKER) (test cana=029) 30.7 % 40.1-51.0 MEAN CORPUSCULAR VOLUME (BEAKER) (test kdxw=718) 69.3 fL 79.0-92.2 MEAN CORPUSCULAR HEMOGLOBIN (BEAKER) (test 19.2 pg 25.7-32.2 uxdv=364) MEAN CORPUSCULAR HEMOGLOBIN CONC (BEAKER) (test 27.7 GM/DL 32.3-36.5 qygb=855) RED CELL DISTRIBUTION WIDTH (BEAKER) (test 20.9 % 11.6-14.4 azea=530) PLATELET COUNT (BEAKER) (test peux=177) 150 K/CU MM 150-450 NUCLEATED RED BLOOD CELLS (BEAKER) (test 0 /100 WBC 0-0 djvf=058) LACTIC ACID, [id number] 14:34:00 Test Item Value Reference Range Comments LACTATE BLOOD VENOUS (2) (BEAKER) (test 1.4 mmol/L 0.5-2.2 ptsf=0907) [id number] 14:34:00 Test Item Value Reference Range Comments FIBRINOGEN LEVEL (BEAKER) (test wbmz=831) 164 mg/dl 225-434 PROTHROMBIN [id number] 14:29:00 Test Item Value Reference Range Comments PROTIME (BEAKER) (test ghbb=607) 17.0 seconds 11.7-14.7 INR (BEAKER) (test ndnl=331) 1.4 <=5.9 RECOMMENDED COUMADIN/WARFARIN INR THERAPY RANGESSTANDARD DOSE: 2.0 - 3.0 Includes: PROPHYLAXIS forvenous thrombosis, systemic embolization; TREATMENT for venous thrombosis and/or pulmonary embolus.HIGH RISK: Target INR is 2.5-3.5 for patients with mechanical heart valves.[id number] 14:29:00 Test Item Value Reference Range Comments PARTIAL THROMBOPLASTIN TIME (BEAKER) (test 35.0 seconds 22.5-36.0 sxjd=306) [id number] 14:29:00 Test Item Value Reference Range Comments PARTIAL THROMBOPLASTIN TIME (BEAKER) (test 38.1 seconds 22.5-36.0 nyxy=681) PROTHROMBIN [id number] 14:28:00 Test Item Value Reference Range Comments PROTIME (BEAKER) (test jphq=417) 15.4 seconds 11.7-14.7 INR (BEAKER) (test bgzc=501) 1.2 <=5.9 RECOMMENDED COUMADIN/WARFARIN INR THERAPY RANGESSTANDARD DOSE: 2.0 - 3.0 Includes: PROPHYLAXIS forvenous thrombosis, systemic embolization; TREATMENT for venous thrombosis and/or pulmonary embolus.HIGH RISK: Target INR is 2.5-3.5 for patients with mechanical heart valves.HEMOGLOBIN AND [id number] 14 :21:00 Test Item Value Reference Range Comments HEMOGLOBIN (BEAKER) (test jqld=630) 8.5 GM/DL 13.7-17.5 HEMATOCRIT (BEAKER) (test mjkr=226) 30.7 % 40.1-51.0
--- OUTSIDE RECORDS SUMMARY | 2019-06-12 16:32 | XMS REPORT | Summary of Care ---
:1965 Author Organization [address] [address] Care Team Providers Name Role Phone Unavailable Primary Care Provider Unavailable Reason for Visit Reason Comments Forms [facility] dis-enrollment Encounter Details Date Type Department Care Team Description 05/28/2019 Patient Outreach [facility] Melba Macias RN Forms ([address] dis-enrollment) [place], [place] [id number] Allergies No Known Allergiesdocumented as of this encounter (statuses as of 05/28/2019) Medications Medication Sig Dispensed Refills Start Date End Date Status glipiZIDE 10 mg Take 1 tablet by 30 tablet 5 09/19/2017 Active tablet mouth daily. lactulose 10 gram/15 Take 30 mL by mouth 1 Bottle 2 09/23/2018 Active mL solution 2 (two) times daily. propranolol 20 mg Take 2 tablets by 120 tablet 2 11/13/2018 Active tabletIndications: mouth 2 (two) times Bleeding esophageal daily. varices, unspecified esophageal varices type lidocaine 2% viscous Take 10 mL by mouth 1 Bottle 0 11/28/2018 Active 2 % every 4 (four) solutionIndications: hours as needed Cough (chest discomfort, discomfort with swallowing). documented as of this encounter (statuses as of 05/28/2019) Active Problems Problem Noted Date Bleeding esophageal varices, unspecified esophageal varices type 10/24/2018 Overview: Added automatically from request for surgery [id number] GI bleed 09/20/2018 Gastrointestinal hemorrhage with hematemesis 09/19/2018 Overview: Added automatically from request for surgery [id number] Hematemesis 08/05/2018 Hematemesis with nausea 08/04/2018 Overview: Added automatically from request for surgery [id number] Secondary esophageal varices without bleeding 01/04/2018 Overview: Added automatically from request for surgery [id number] Obesity (BMI 30-39.9) 09/15/2017 GI bleeding 09/14/2017 Gastrointestinal hemorrhage, unspecified gastrointestinal hemorrhage type Overview: Added automatically from request for surgery [id number] documented as of this encounter (statuses as of 05/28/2019) Social History Tobacco Use Types Packs/Day Years Used Date Former Smoker Smokeless Tobacco: Never Used Alcohol Use Drinks/Week oz/Week Comments Not Asked 0 Standard drinks or equivalent 0.0 Sex Assigned at Date Recorded Not on file Job Start Date Occupation Industry Not on file Not on file Not on file Travel History Travel Start Travel End No recent travel history available. documented as of this encounter Last Filed Vital Signs Not on filedocumented in this encounter Progress Notes Melba Macias RN - 05/28/2019 12:43 PM CDTCHP CM has not been able to f/u with the patient. Dis-enrollment letter will be mailed out. MEET Jenkins, RN, [facility] Outpatient Machine FitterDirector Digital AdvertisingAmerican Healthcare Systems O: [phone] M: [phone] documented in this encounter Plan of Treatment Health Maintenance Due Date Last Done Comments PNEUMOCOCCAL 0-64 YEARS COMBINED 1969 SERIES (1 of 1 - PPSV23) URINE MICROALBUMIN 1973 FOOT EXAM 1981 DTaP,Tdap,and Td Vaccines (1 - 1982 Tdap) LDL-C 11/15/2005 11/15/2004 COLONOSCOPY 2013 Zoster Recombinant Vaccine 2013 (SHINGRIX) (1 of 2) EYE EXAM 11/09/2016 11/09/2015 LUNG CANCER SCREEN: Recommended 2018 for age 55-80 with 30 + pack year history HgA1C 03/21/2019 09/20/2018, 08/05/2018, 11/15/2004 INFLUENZA VACCINE (#1) 2019 CREATININE (SERUM) 10/24/2019 10/24/2018, 09/23/2018, 09/22/2018, Additional history exists HEPATITIS C (HCV) SCREEN Completed 09/14/2017 documented as of this encounter Results Not on filedocumented in this encounter Insurance Payer Benefit Plan / Subscriber ID Effective Phone Address Type Group Dates [employer] 2018-e [address] [place] [id number] [place] [address] documented as of this encounter
[2019-06-12 16:56] LABS: Absolute Lymphocytes (CBC) 1.1 K/uL (0.7-4.9); Basophils % 0.6 % (0-1.3); Lymphocytes % 12.5 % (15.3-44.8); MPV 9.4 fL (7.6-11.3); RBC Red Blood Cell Count 4.48 M/uL (4.33-5.43)
[2019-06-12 17:00] LABS: Protime INR 1.14
--- NOTE | 2019-06-12 17:00 | RAD REPORT ---
EXAM DESCRIPTION: CT - Ct Stroke Brain Wo Cont - 06/12/2019 4:41 pm CLINICAL HISTORY: Unresponsive, history of cirrhosis, stroke protocol CLINICAL HISTORY: None. TECHNIQUE: Axial 5 millimeter thick images of the head were obtained without IV contrast. All CT scans are performed using dose optimization technique as appropriate and may include automated exposure control or mA/KV adjustment according to patient size. FINDINGS: No intracranial hemorrhage, mass, or cerebral edema. No midline shift. Ventricles are norm al. Mild atrophy changes are present. No extra-axial fluid collections. Subtle areas of decreased at tenuation noted in the posterior right occipital lobe. Finding is subtle but could reflect nonhemorrh agic CVA. Visualized portions of the mastoid air cells, paranasal sinuses, and orbits are unremarkable. Findings telephoned to the referring clinician 4:57 p.m.. IMPRESSION: No intracranial hemorrhage. Decreased attenuation in the right occipital lobe questionable for nonhemorrhagic CVA.
[2019-06-12 17:04] LABS: Barbiturates NEGATIVE (NEGATIVE); Benzodiazepines NEGATIVE (NEGATIVE); Cocaine NEGATIVE (NEGATIVE); METHAMPHETAM NEGATIVE (NEGATIVE); Methadone NEGATIVE (NEGATIVE); Opiates NEGATIVE (NEGATIVE); Phencyclidine NEGATIVE (NEGATIVE); THC Cannibis NEGATIVE (NEGATIVE)
[2019-06-12 17:23] LABS: Arterial Blood Carboxyhemoglob 1.3 % (0-1.5); Blood Gas Oxyhemoglobin 97.5 % (94-97); Blood O2 Saturation 99.6 % (92-98.5)
--- NOTE | 2019-06-12 17:28 | RAD REPORT ---
EXAM DESCRIPTION: RAD - Chest Single View - 06/12/2019 5:20 pm CLINICAL HISTORY: Stroke protocol chest film COMPARISON: April 2019 TECHNIQUE: AP portable chest image was obtained 1707 hours . FINDINGS: Lung volumes are low. Endotracheal tube is in place. Tip is at the T6 level near the origi n of the right mainstem bronchus. NG tube extends below the diaphragm. Stranding is seen in both lung bases most likely atelectasis given the shallow inspiration. Infiltrate is lesser in likelihood. No dense consolidation or diffuse pulmonary edema. Heart size is normal. No measurable pleural effusion and no pneumothorax. No acute bony abnormality seen. No acute aortic findings suspected. IMPRESSION: Bilateral lung base atelectasis with shallow inspiration chest film. ET tube tip is T6 level near the origin of the right mainstem bronchus. NG tube extends below the diaphragm.
[2019-06-12] MEDS ORDERED: PROPOFOL 1,000 MG/100 ML VIAL IV ONE ×2 (17:45→22:10)
[2019-06-12] MEDS ORDERED: LACTULOSE 20 GM/30 ML UCUP ONE ×2 (17:45→17:46)
[2019-06-12] MEDS ORDERED: ONDANSETRON 4 MG/2 ML VIAL IV PRN (17:49)
[2019-06-12] MEDS ORDERED: ALBUTEROL 2.5 MG/3 ML NEB SOL NEB PRN (17:49)
[2019-06-12] MEDS ORDERED: IPRATROPIUM BROM 0.5MG/2.5ML NEB PRN (17:49)
[2019-06-12] MEDS ORDERED: LORazepam 2 MG/ML VIAL IV PRN (17:49)
[2019-06-12] MEDS ORDERED: FENTANYL CITR 100 MCG/2 ML IV PRN (17:49)
[2019-06-12] MEDS ORDERED: ASPIRIN 600 MG/SUPP PR ONE (17:54)
--- NOTE | 2019-06-12 17:59 | ER ---
Nurse's Notes [facility] Name: Janusz Morris Jr Age: 54 yrs Sex: Male : 1965 Arrival Date: 06/12/2019 Time: 16:32 Bed 2 Private MD: Diagnosis: Hepatic Encepalopathy, Respirator Failure Presentation: 06/12 16:15 Presenting complaint: EMS states: pt last seen normal at 0730 this morning, was sitting iw in garage all day, sister checked on patient at 1530 and pt was not responding,was still sitting up in chair but not speaking. EMS arrived to scene and pt had no gag reflex, not responding to pain, hx of cirrhosis,diabetes TP=188, pt arrives to ER,intubated VSS,bagged by EMS. Transition of care: patient was not received from another setting of care. 16:15 Method Of Arrival: EMS: [facility] iw 16:15 Acuity: AJ 1 iw 16:15 Care prior to arrival: Oral intubation, 7.5 ETT, 24 at teeth, 16 fr NGT Medication(s) iw given: 30 etomidate, 150 succ, 150 fentanyl IV initiated. 18 GA, in the left forearm, Glucose check: 380. Activity prior to arrival: unresponsive. 16:54 Onset of symptoms. Risk Assessment: Do you want to hurt yourself or someone else? iw Patient reports no desire to harm self or others. Initial Sepsis Screen: Does the patient meet any 2 criteria? No. Patient's initial sepsis screen is negative. Does the patient have a suspected source of infection? No. Patient's initial sepsis screen is negative. Triage Assessment: 16:40 General: Behavior is unresponsive. iw Historical: - Allergies: 16:37 No Known Allergies; iw - Home Meds: 16:37 atorvastatin 40 mg Oral tab 1 tab once daily [Active]; furosemide 20 mg Oral tab 1 tab iw once daily [Active]; glipizide 10 mg Oral tab 1 tab once daily [Active]; lactulose 10 gram/15 mL Oral soln 60 mL 3 times per day [Active]; metformin 1,000 mg Oral tab 1 tab 2 times per day [Active]; pantoprazole 40 mg Oral TbEC 1 tab 2 times per day [Active]; propranolol 20 mg Oral tab 1 tab twice a day [Active]; spironolactone 50 mg Oral tab 1 tab once daily [Active]; - PMHx: 16:37 Alcoholism; Cirrhosis; Diabetes - NIDDM; esophageal varices; GI Bleed; Hypertension; iw - Immunization history:: Adult Immunizations unknown. - Social history:: Smoking status: unknown. - Ebola Screening: : Patient negative for fever greater than or equal to 101.5 degrees Fahrenheit, and additional compatible Ebola Virus Disease symptoms Patient denies exposure to infectious person Patient denies travel to an Ebola-affected area in the 21 days before illness onset No symptoms or risks identified at this time. Screenin:25 Abuse screen: Denies threats or abuse. Denies injuries from another. Nutritional iw screening: No deficits noted. Tuberculosis screening: No symptoms or risk factors identified. Fall Risk IV access (20 points). Assessment: 16:20 General: Appears well developed. Pain: Unable to use pain scale. FLACC scale score is 0 iw out of 10. Neuro: Level of Consciousness is unresponsive, Oriented to none Pupils are PERRLA. Cardiovascular: Capillary refill < 3 seconds in bilateral fingers Patient's skin is warm and dry. Respiratory: Airway via oral intubation Respiratory effort is even, Respiratory pattern is regular. GI: Abdomen is flat, non-distended. Derm: Skin is intact, is healthy with good turgor. Musculoskeletal: Range of motion: intact in all extremities. 16:31 Reassessment: pt transported to CT via stretcher with JADA Aquino, with RT. iw 16:39 Reassessment: Pt returned from CT with Kenia ELIAS and Yeni RT. hb 17:06 Reassessment: at bedside to discuss POC with family. iw 17:20 Reassessment: Patient appears in no apparent distress at this time. Patient and/or sv family updated on plan of care and expected duration. Pain level reassessed. Pt remains intubated and unresponsive. 18:00 Reassessment: Patient appears in no apparent distress at this time. Patient and/or sv family updated on plan of care and expected duration. Pain level reassessed. Pt remains intubated and sedation meds to be started. 18:14 Reassessment: Dr Estrada at the bedside. sv 18:35 Reassessment: Patient appears in no apparent distress at this time. Patient and/or sv family updated on plan of care and expected duration. Pain level reassessed. Pt remains intubated and sedated. Vital Signs: 16:25 BP 139 / 82; Pulse 105; Resp 18 A; Pulse Ox 100% on ETT ambu; iw 16:52 BP 153 / 82; Pulse 92; Resp 16 A; Temp 97.5(C); Pulse Ox 100% on ETT vent; Weight 83.91 iw kg; Height 5 ft. 4 in. (162.56 cm); Pain 0/10; 17:02 BP 151 / 82; Pulse 96; Resp 16; Temp 97.4(C); Pulse Ox 100% on ETT vent; sv 17:29 BP 151 / 84; Pulse 96; Resp 16; Pulse Ox 100% on ETT vent; sv 18:10 BP 137 / 81; Pulse 97 MON; Resp 16; Pulse Ox 100% on ETT vent; sv 18:30 BP 143 / 99; Pulse 98; Resp 17; Temp 96.9(C); Pulse Ox 99% on ETT vent; sv 16:52 Body Mass Index 31.75 (83.91 kg, 162.56 cm) iw 18:10 Normal Sinus Rhythm sv ED Course: 16:25 Initial lab(s) drawn, by me, sent to lab. Inserted saline lock: 20 gauge in left hand, iw using aseptic technique. 16:25 Maintain EMS IV. Dressing intact. Good blood return noted. Site clean \T\ dry. Gauge \T\ iw site: 18 LFA. 16:32 Patient arrived in ED. jr8 16:35 Ramona Cueto, RN is Primary Nurse. iw 16:39 Gurinder Fuentes MD is Attending Physician. kdr 16:42 Primary Nurse role handed off by Ramona Cueto, RN sv 16:42 Nissa Cesar, JADA is Primary Nurse. sv 16:42 Sol cath inserted, using sterile technique, 16 Fr., by me, balloon inflated, urine hb specimen collected. returned clear yellow urine. Patient tolerated well. 16:52 Triage completed. iw 16:54 Arm band placed on. iw 16:56 ETOH Level Sent. sv 16:56 Urine Dipstick--Ancillary (enter results) Sent. sv 16:56 AMMONIA Sent. sv 16:57 UDS Sent. sv 16:57 Troponin (emerg Dept Use Only) Sent. sv 16:57 Magnesium Sent. sv 16:57 Basic Metabolic Panel Sent. sv 16:57 CBC with Diff Sent. sv 16:57 Protime (+inr) Sent. sv 16:57 Ptt, Activated Sent. sv 16:57 CT Stroke Brain w/o Contrast Sent. sv 16:57 Stroke CXR 1 View Sent. sv 17:04 EKG done, by reliability technician. reviewed by Gurinder Fuentes MD. sm3 17:12 ABG Sent. sv 17:16 X-ray(s) taken. sv 17:20 Patient has correct armband on for positive identification. Placed in gown. Bed in low iw position. Side rails up X2. Adult w/ patient. food and beverage director on. Pulse ox on. NIBP on. 17:20 Door closed. Warm blanket given. Pillow given. Head of bed elevated. sv 17:57 Laura Estrada MD is Hospitalizing Provider. kdr 18:15 Patient admitted, IV remains in place. intact, No redness/swelling at site. sg 18:15 No provider procedures requiring assistance completed. sv Administered Medications: 16:27 Drug: Etomidate 10 mg Route: IVP; Site: left forearm; iw 17:00 Follow up: Response: No adverse reaction sv 16:27 Drug: VecuroNIUM 10 mg Route: IVP; Site: left forearm; iw 17:00 Follow up: Response: No adverse reaction sv 18:13 Drug: Lactulose 45 grams {Note: given through NGT.} Volume: 45 ml; Route: PO; sv 18:30 Follow up: Response: No adverse reaction sv 18:13 Drug: Propofol 5 mcg/kg/min {Note: started at 10 mcg/kg/min.} Route: IV; Rate: sv calculated rate; Site: left hand; 18:30 Follow up: Response: No adverse reaction; IV Status: Infusion continued upon admission sv 18:13 Drug: NS 0.9% 1000 ml Route: IV; Rate: 125 ml/hr; Site: left hand; sv 18:30 Follow up: Response: No adverse reaction; IV Status: Infusion continued upon admission sv 18:14 Drug: Aspirin Suppository 300 mg Route: CA; sv 18:30 Follow up: Response: No adverse reaction sv Point of Care Testing: Blood Glucose: 16:27 Blood Glucose: 407 mg/dL; iw Ranges: Outcome: 17:58 Decision to Hospitalize by Provider. kdr 18:15 Admitted to ICU accompanied by nurse, accompanied by tech, family with patient, via sg stretcher, room 6, with oxygen, on monitor, with chart, Report called to Fernanda ELIAS 18:15 Condition: stable 18:15 Instructed on the need for admit, safety practices, Demonstrated understanding of instructions, follow-up care. 18:45 Patient left the ED. Signatures: Nissa Cesar RN JADA sv Stuart Rosales RN JADA Gurinder Fuentes MD MD [facility] Ramona Cueto RN RN iw Woody King PA PA jr8 Kenia North RN RN Marylou Isabel 3 Corrections: (The following items were deleted from the chart) 17:05 16:15 Care prior to arrival: Oral intubation, IV initiated. 18 GA, in the left forearm, iw Glucose check: 380 iw
--- NOTE | 2019-06-12 18:01 | EDPHYS ---
Physician Documentation [facility] Name: Janusz Morris Jr Age: 54 yrs Sex: Male : 1965 Arrival Date: 06/12/2019 Time: 16:32 Bed 2 Private MD: ED Physician Gurinder Fuentes HPI: 06/12 16:39 This 54 yrs old Male presents to ER via Unassigned with complaints of Altered kdr Mental Status. 16:39 The patient presents with decreased mental status, decreased responsiveness. Onset: The kdr symptoms/episode began/occurred today, at an unknown time. The patinet was last seen somewhat well at about 7:30 AM today. He was then found this afternoon unresponsive. EMS appreciated that his pupils were possible unequal. Possible causes: CVA or TIA, low blood sugar, sepsis, hepatic encephalopathy . Historical: - Allergies: 16:37 No Known Allergies; iw - Home Meds: 16:37 atorvastatin 40 mg Oral tab 1 tab once daily [Active]; furosemide 20 mg Oral tab 1 tab iw once daily [Active]; glipizide 10 mg Oral tab 1 tab once daily [Active]; lactulose 10 gram/15 mL Oral soln 60 mL 3 times per day [Active]; metformin 1,000 mg Oral tab 1 tab 2 times per day [Active]; pantoprazole 40 mg Oral TbEC 1 tab 2 times per day [Active]; propranolol 20 mg Oral tab 1 tab twice a day [Active]; spironolactone 50 mg Oral tab 1 tab once daily [Active]; - PMHx: 16:37 Alcoholism; Cirrhosis; Diabetes - NIDDM; esophageal varices; GI Bleed; Hypertension; iw - Immunization history:: Adult Immunizations unknown. - Social history:: Smoking status: unknown. - Ebola Screening: : Patient negative for fever greater than or equal to 101.5 degrees Fahrenheit, and additional compatible Ebola Virus Disease symptoms Patient denies exposure to infectious person Patient denies travel to an Ebola-affected area in the 21 days before illness onset No symptoms or risks identified at this time. ROS: 06/13 13:06 Constitutional: Negative for objective fever and weight loss - has had subjective kdr fever and rigors/chills Eyes: Negative for injury, pain, redness, and discharge, Neck: Negative for injury, pain, and swelling, Cardiovascular: Negative for chest pain, palpitations, and edema, Respiratory: Negative for shortness of breath, cough, wheezing, and pleuritic chest pain, Abdomen/GI: Negative for abdominal pain, nausea, vomiting, diarrhea, and constipation, Back: Negative for injury and pain, : Negative for injury, bleeding, discharge, and swelling, MS/Extremity: Negative for injury and deformity, Skin: Negative for injury, rash, and discoloration, Neuro: Negative for headache, weakness, numbness, tingling, and seizure activity. Psych: Negative for depression, anxiety, suicide ideation, homicidal ideation, and hallucinations, Allergy/Immunology: Negative for hives, rash, and allergies, Endocrine: Negative for neck swelling, polydipsia, polyuria, polyphagia, and marked weight changes, Hematologic/Lymphatic: Negative for swollen nodes, abnormal bleeding, and unusual bruising. Exam: 13:06 Constitutional: This is a well developed, well nourished patient who is awake, alert, kdr and in no acute distress. Head/Face: Normocephalic, atraumatic. Eyes: Pupils equal round and reactive to light, extra-ocular motions intact. Lids and lashes normal. Conjunctiva and sclera are non-icteric and not injected. Cornea within normal limits. Periorbital areas with no swelling, redness, or edema. Neck: Trachea midline, no thyromegaly or masses palpated, and no cervical lymphadenopathy. Supple, full range of motion without nuchal rigidity, or vertebral point tenderness. No Meningismus. Chest/axilla: Normal chest wall appearance and motion. Nontender with no deformity. No lesions are appreciated. Cardiovascular: Regular rate and rhythm with a normal S1 and S2. No gallops, murmurs, or rubs. Normal PMI, no JVD. No pulse deficits. Respiratory: Lungs have equal breath sounds bilaterally, clear to auscultation and percussion. No rales, rhonchi or wheezes noted. No increased work of breathing, no retractions or nasal flaring. Abdomen/GI: Soft, non-tender, with normal bowel sounds. No distension or tympany. No guarding or rebound. No evidence of tenderness throughout. Back: No spinal tenderness. No costovertebral tenderness. Full range of motion. Skin: Warm, dry with normal turgor. Normal color with no rashes, no lesions, and no evidence of cellulitis. MS/ Extremity: Pulses equal, no cyanosis. Neurovascular intact. Full, normal range of motion. Neuro: Awake and alert, GCS 15, oriented to person, place, time, and situation. Cranial nerves II-XII grossly intact. Motor strength 5/5 in all extremities. Sensory grossly intact. Cerebellar exam normal. Normal gait. Psych: Awake, alert, with orientation to person, place and time. Behavior, mood, and affect are within normal limits. Vital Signs: 06/12 16:25 BP 139 / 82; Pulse 105; Resp 18 A; Pulse Ox 100% on ETT ambu; iw 16:52 BP 153 / 82; Pulse 92; Resp 16 A; Temp 97.5(C); Pulse Ox 100% on ETT vent; Weight 83.91 iw kg; Height 5 ft. 4 in. (162.56 cm); Pain 0/10; 17:02 BP 151 / 82; Pulse 96; Resp 16; Temp 97.4(C); Pulse Ox 100% on ETT vent; sv 17:29 BP 151 / 84; Pulse 96; Resp 16; Pulse Ox 100% on ETT vent; sv 18:10 BP 137 / 81; Pulse 97 MON; Resp 16; Pulse Ox 100% on ETT vent; sv 18:30 BP 143 / 99; Pulse 98; Resp 17; Temp 96.9(C); Pulse Ox 99% on ETT vent; sv 16:52 Body Mass Index 31.75 (83.91 kg, 162.56 cm) iw 18:10 Normal Sinus Rhythm sv MDM: 17:58 Patient medically screened. [facility] 06/13 13:19 Data reviewed: vital signs, nurses notes, lab test result(s), radiologic studies. kdr Counseling: I had a detailed discussion with the patient and/or guardian regarding: the historical points, exam findings, and any diagnostic results supporting the discharge/admit diagnosis, lab results, radiology results, the need for further work-up and treatment in the hospital. 06/12 16:35 Order name: UDS [facility] 06/12 16:35 Order name: Troponin (emerg Dept Use Only) [facility] 06/12 16:35 Order name: Magnesium kdr 06/12 16:35 Order name: Basic Metabolic Panel [facility] 06/12 16:35 Order name: CBC with Diff kdr 06/12 16:35 Order name: Protime (+inr) [facility] 06/12 16:35 Order name: Ptt, Activated kdr 06/12 16:35 Order name: AMMONIA [facility] 06/12 16:50 Order name: Urine Dipstick--Ancillary (enter results) 06/12 16:54 Order name: ETOH Level jb 06/12 16:55 Order name: ABG [facility] 06/12 17:03 Order name: CBC with Automated Diff; Complete Time: 17:30 EDMS 06/12 17:03 Order name: Protime (+INR); Complete Time: 17:30 EDMS 06/12 17:03 Order name: PTT, Activated Partial Thromb; Complete Time: 17:30 EDMS 06/12 16:35 Order name: CT Stroke Brain w/o Contrast [facility] 06/12 16:35 Order name: Stroke CXR 1 View [facility] 06/12 16:35 Order name: EKG; Complete Time: 16:38 [facility] 06/12 17:06 Order name: Urine Drug Screen; Complete Time: 17:30 EDMS 06/12 17:08 Order name: Ammonia; Complete Time: 17:30 EDMS 06/12 17:26 Order name: ABG Arterial Blood Gas; Complete Time: 17:30 EDMS 06/12 17:37 Order name: Alcohol Serum/Plasma [facility] 06/12 18:15 Order name: Basic Metabolic Panel [facility] 06/12 18:15 Order name: Troponin (Emerg Dept Use Only) [facility] 06/12 18:15 Order name: Magnesium [facility] 06/12 16:35 Order name: Accucheck; Complete Time: 16:55 [facility] 06/12 16:35 Order name: Cardiac monitoring; Complete Time: 16:52 [facility] 06/12 16:35 Order name: EKG - Nurse/Tech; Complete Time: 16:52 [facility] 06/12 16:35 Order name: IV Saline Lock; Complete Time: 16:52 [facility] 06/12 16:35 Order name: Labs collected and sent; Complete Time: 16:52 [facility] 06/12 16:35 Order name: NPO; Complete Time: 16:53 kdr 06/12 16:35 Order name: O2 Per Protocol; Complete Time: 16:53 kdr 06/12 16:35 Order name: O2 Sat Monitoring; Complete Time: 16:53 kdr Administered Medications: 09/19 16:27 Drug: Etomidate 10 mg Route: IVP; Site: left forearm; iw 17:00 Follow up: Response: No adverse reaction sv 16:27 Drug: VecuroNIUM 10 mg Route: IVP; Site: left forearm; iw 17:00 Follow up: Response: No adverse reaction sv 18:13 Drug: Lactulose 45 grams {Note: given through NGT.} Volume: 45 ml; Route: PO; sv 18:30 Follow up: Response: No adverse reaction sv 18:13 Drug: Propofol 5 mcg/kg/min {Note: started at 10 mcg/kg/min.} Route: IV; Rate: sv calculated rate; Site: left hand; 18:30 Follow up: Response: No adverse reaction; IV Status: Infusion continued upon admission sv 18:13 Drug: NS 0.9% 1000 ml Route: IV; Rate: 125 ml/hr; Site: left hand; sv 18:30 Follow up: Response: No adverse reaction; IV Status: Infusion continued upon admission sv 18:14 Drug: Aspirin Suppository 300 mg Route: MT; sv 18:30 Follow up: Response: No adverse reaction sv Point of Care Testing: Blood Glucose: 16:27 Blood Glucose: 407 mg/dL; iw Ranges: Critical Glucose Levels:Adult <50 mg/dl or >400 mg/dl <40 mg/dl or >180 mg/dl Disposition: 06/12/19 17:58 Hospitalization ordered by Laura Estrada for Inpatient Admission. Preliminary diagnosis is Hepatic Encepalopathy, Respirator Failure. - Bed requested for Intensive Care Unit. - Status is Inpatient Admission. sg - Condition is Serious. - Problem is new. - Symptoms have improved. UTI on Admission? No Signatures: Dispatcher [employer] EPIFANIOOH Nissa Cesar RN RN Stuart Rosales RN RN sg Gruinder Fuentes MD MD kdr Ramona Cueto RN RN Trey Chaney RN RN ja1 Corrections: (The following items were deleted from the chart) 16:53 16:31 Stroke Swallow Screen ordered. kdr hb 18:15 17:58 Hospitalization Ordered by Laura Estrada MD for Inpatient Admission. Preliminary sv diagnosis is Hepatic Encepalopathy, Respirator Failure. Bed requested for Intensive Care Unit. Status is Inpatient Admission. Condition is Serious. Problem is new. Symptoms have improved. UTI on Admission? No. kdr 18:31 18:15 06/12/2019 17:58 Hospitalization Ordered by Laura Estrada MD for Inpatient ja1 Admission. Preliminary diagnosis is Hepatic Encepalopathy, Respirator Failure. Bed requested for Intensive Care Unit. Status is Inpatient Admission. Condition is Serious. Problem is new. Symptoms have improved. UTI on Admission? No. sv 18:45 18:31 06/12/2019 17:58 Hospitalization Ordered by Laura Estrada MD for Inpatient Admission. Preliminary diagnosis is Hepatic Encepalopathy, Respirator Failure. Bed requested for Intensive Care Unit. Status is Inpatient Admission. Condition is Serious. Problem is new. Symptoms have improved. UTI on Admission? No. ja1
[2019-06-12 18:09] LABS: Magnesium 2.2 mg/dL (1.8-2.4); Potassium 5.5 mmol/L (3.5-5.1); Troponin (Emerg Dept Use Only) 0.05 ng/mL (0.0-0.045)
--- NOTE | 2019-06-12 18:39 | P.HP ---
Certification for Inpatient Patient admitted to: Inpatient With expected LOS: >2 Midnights Patient will require the following post-hospital care: None Practitioner: I am a practitioner with admitting privileges, knowledge of patient current condition, hospital course, and medical plan of care. Services: Services provided to patient in accordance with Admission requirements found in Title 42 Section 412.3 of the Code of Federal Regulations Patient History Date of Service: 06/12/19 Primary Care Provider: Dr Estrada - PCP Reason for admission: AMS and lethargic History of Present Illness: 54-year-old male with significant past medical history of liver cirrhosis status post TIPS, esophageal varices, GI bleed, hypertension, diabetes, who presented to the ED with EMS. Family at bedside was the major source of information. Sister stated that she of talk to the patient this morning around 7:30 a.m. and he was not doing well at that time was not able to communicate and understand after his sister. His sister later on went to go see the patient and he was unresponsive not able to communicate properly and was looking very lethargic. Sister stated that she then called the EMS and when the EMS arrived there his heart rate was 23 and he was very unresponsive and thus was intubated on site. Sister stated that he has been having some problems for past couple of days with diet and has been complaining of having some generalized weakness for the patient was recently started on nail insulin by his primary care provider. Patient's family denies having any nausea vomiting abdominal pain fever chills or any other symptoms at this time. Family stated that he was scheduled for TACE procedure in [place] on Sunday for his liver. Patient was initially referred to be transferred out to [place] however due to inclement weather no life flight or ambulance were available to transfer the patient to the [facility] for higher level of care since our facility does not have GI for neurology on-call. Patient thus was kept here in the hospital for further management at this time until transfer process can be re-initiated if needed in next 24-48 hr. Allergies No Known Allergies Allergy (Verified 05/22/19 22:45) Home Medications: Furosemide [Lasix] 20 mg PO DAILY 08/10/18 Glipizide [Glipizide Xl] 10 mg PO DAILY 08/10/18 Lactulose 60 ml PO TID 08/10/18 Metformin HCl [Metformin ER Osmotic] 1,000 mg PO BID 08/10/18 Pantoprazole [Protonix Tab*] 40 mg PO BID 08/10/18 Spironolactone [Aldactone*] 50 mg PO DAILY 08/10/18 Atorvastatin Calcium [Lipitor] 40 mg PO BEDTIME 05/23/19 - Past Medical/Surgical History Diabetic: Yes -: Liver cirrhosis -: Esophageal varices -: GI bleed -: Diabetes mellitus -: Hypertension -: Banding ligation - Family History Father -: Diabetes Mother -: Diabetes - Social History Alcohol use: Yes CD- Drugs: No Caffeine use: No Review of Systems 10-point ROS is otherwise unremarkable Physical Examination - Physical Exam General: Other (Intubated and sedated) Neck: Supple, No LAD, JVD distended Respiratory: Normal air movement, Expiratory wheezes, Inspiratory wheezes Cardiovascular: Regular rate/rhythm, Normal S1 S2 Gastrointestinal: Normal bowel sounds, No tenderness Musculoskeletal: No tenderness Integumentary: No rashes Lymphatics: No axilla or inguinal lymphadenopathy - Studies Laboratory Data (last 24 hrs) 06/12/19 16:35: PT 13.4 H, INR 1.14, APTT 30.6 06/12/19 16:35: WBC 8.8, Hgb 9.7 L, Hct 31.0 L, Plt Count 146 L 06/12/19 16:35: Sodium 138, Potassium 5.5 H, BUN 23 H, Creatinine 1.83 H, Glucose 400 H, Magnesium 2.2 Assessment and Plan - Problems (Diagnosis) (1) Acute respiratory failure Current Visit: Yes Status: Acute Plan: Acute Respiratory Failure 2.2 to hepatic Encephalopathy -Currently intubated and sedated at this time -pulmonology consulted. Awaiting recommendations at this time -will continue to wean patient off the ventilator once patient is able to be weaned off -chest x-ray clear for any acute infectious process -will repeat chest x-ray and ABG tomorrow morning -duo nebs, fluids at this time Qualifiers: Respiratory failure complication: hypoxia Qualified Code(s): J96.01 - Acute respiratory failure with hypoxia (2) Hepatic encephalopathy Current Visit: Yes Status: Acute Plan: Patient with hepatic encephalopathy given the history of liver cirrhosis and esophageal varices -ammonia level of 158 at this time -started on lactulose 30 mg t.i.d. through NG tube -GI is unavailable at this time -patient not able to be transferred to higher level of care due to weather conditions -will monitor patient closely (3) HTN (hypertension) Current Visit: Yes Status: Chronic Plan: Restart on home medication Qualifiers: Hypertension type: essential hypertension Qualified Code(s): I10 - Essential (primary) hypertension (4) Diabetes mellitus Onset Date: 08/12/18 Current Visit: No Status: Chronic Plan: Restarted on insulin sliding scale and Accu-Cheks Qualifiers: Diabetes mellitus type: type 2 Diabetes mellitus prison insulin use: without prison use Diabetes mellitus complication status: without complication Qualified Code(s): E11.9 - Type 2 diabetes mellitus without complications (5) Esophageal varices Onset Date: 08/12/18 Current Visit: No Status: Chronic Plan: Currently patient is placed on IV Protonix strip given the unknown etiology for patient's altered mental status for hepatic encephalopathy. Will evaluate the hemoglobin and get a stool culture at this time. GI is unavailable at this time again. Unable to transfer patient to a higher level of care due to weather conditions. Will attempt in next 24-48 hr. Patient is scheduled for TACS procedure in [place] Qualifiers: Esophageal varices type: unspecified type Esophageal varices bleeding: without bleeding Qualified Code(s): I85.00 - Esophageal varices without bleeding (6) Liver cirrhosis Onset Date: 08/12/18 Current Visit: No Status: Chronic Qualifiers: Hepatic cirrhosis type: alcoholic cirrhosis Ascites presence: without ascites Qualified Code(s): K70.30 - Alcoholic cirrhosis of liver without ascites - Plan Admit patient to the ICU for further care Discharge Plan: Home Plan to discharge in: Greater than 2 days - Advance Directives Does patient have a Living Will: No Does patient have a Durable POA for Healthcare: No - Code Status/Comfort Care Code Status Assessed: Yes Critical Care: Yes
[2019-06-12 18:46] LABS: Urine Blood TRACE (NEG); Urine Glucose 3+ (NEG); Urine Protein 2+ (NEG); Urine pH 5.5 (5.0-7.0)
[2019-06-12] MEDS: CEFTRIAXONE/SWI 1gm 1 GM/10 ML SYR IVP SCH (19:04)
[2019-06-12] MEDS: PANTOPRAZOLE INJ 80 MG in NA CHLORIDE 0.9% 250 ML IV SCH (19:04)
[2019-06-12 19:55] LABS: Thyroid Stimulating Hormone 2.89 uIU/mL (0.360-3.740)
[2019-06-12 20:54] LABS: RPR (Rapid Plasma Reagin) NON-REACT (NON-REACT)
[2019-06-12] MEDS: ATORVASTATIN 40 MG TAB PO SCH (22:30)
[2019-06-12] MEDS: LACTULOSE 20 GM/30 ML UCUP PO SCH (22:30)
[2019-06-12] MEDS: NA CHLORIDE 0.9% 1,000 ML IV SCH (23:00)
[2019-06-12] MEDS: INSULIN -REGULAR HUMAN 50 UNIT/0.5 ML ML SQ SCH (23:51)
[2019-06-13] MEDS ORDERED: PROPOFOL 1,000 MG/100 ML VIAL IV ONE (01:35)
[2019-06-13] MEDS ORDERED: PROPOFOL 1,000 MG/100 ML VIAL IV PRN (02:50)
[2019-06-13] MEDS ORDERED: MIDAZOLAM HCL 2 MG/2 ML INJ IV PRN (02:50)
[2019-06-13 05:17] LABS: Arterial Blood Carboxyhemoglob 1.9 % (0-1.5); Blood O2 Saturation 98.5 % (92-98.5)
[2019-06-13 06:10] LABS: Urine Appearance CLOUDY; Urine Bilirubin NEGATIVE (NEG); Urine Blood 3+ (NEG); Urine Color DK YELLOW; Urine Glucose 3+ (NEG); Urine Protein 1+ (NEG); Urine Specific Gravity >=1.030 (1.005-1.030)
[2019-06-13 06:13] LABS: Urine Microscopic Reflex ORDER UMIC
[2019-06-13 06:21] LABS: Bilirubin Total 0.8 mg/dL (0.2-1.0); Protein, Total 7.1 g/dL (6.4-8.2)
[2019-06-13 06:23] LABS: Absolute Lymphocytes (CBC) 1.4 K/uL (0.7-4.9); Hematocrit 27.5 % (39.6-49.0); Lymphocytes % 8.4 % (15.3-44.8); RBC Red Blood Cell Count 4.05 M/uL (4.33-5.43)
[2019-06-13 07:08] LABS: Urine Amorphous Sediment 2+ /HPF (NONE SEEN); Urine Bacteria >50 /HPF (NONE SEEN); Urine Culture Reflex Order REFLEXED
--- NOTE | 2019-06-13 08:14 | RAD REPORT ---
EXAM DESCRIPTION: RAD - Chest Single View - 06/13/2019 6:36 am CLINICAL HISTORY: Intubation COMPARISON: June 12 TECHNIQUE: AP portable chest image was obtained 0633 hours . FINDINGS: ET tube is in good position T4 level several cm above the thang. NG tube positioning is s table from prior examination. No new or progressive lung parenchymal process. Heart and vasculature are normal. No measurable pleural effusion and no pneumothorax. No acute bony abnormality seen. No acute aortic findings suspected. IMPRESSION: ET tube and NG tube remain in good position, stable from prior imaging. No new or progressive cardiopulmonary finding.
[2019-06-13] MEDS: INSULIN -REGULAR HUMAN 50 UNIT/0.5 ML ML SQ SCH ×3 (08:30→18:10)
[2019-06-13] MEDS: LACTULOSE 20 GM/30 ML UCUP PO SCH ×3 (08:31→20:37)
[2019-06-13] MEDS: PANTOPRAZOLE INJ 80 MG in NA CHLORIDE 0.9% 250 ML IV SCH ×3 (08:32→19:33)
[2019-06-13] MEDS: CEFTRIAXONE/SWI 1gm 1 GM/10 ML SYR IVP SCH (08:32)
[2019-06-13 08:35] LABS: Anisocytosis 1+; Blood Morphology Comment NOTED (NOT SEEN); Platelet Estimate ADEQ; Urine White Blood Cell Casts OK
--- NOTE | 2019-06-13 09:41 | RAD REPORT ---
EXAM DESCRIPTION: RAD - Chest Single View - 06/12/2019 9:05 pm Chest Single View CLINICAL HISTORY: Verify NG tube placement COMPARISON: None. FINDINGS: Single view of the chest is submitted. NG tube tip is in the gastric lumen. ET tube tip is approximately 1.5 vertebral levels above the thang. Cardiac silhouette is normal. No focal parenchymal or pleural disease. No acute bony abnormality. There is no significant pulmonary vascular engorgement. IMPRESSION: No evidence of acute cardiopulmonary disease. Electronically signed by: Abdifatah Moss 06/12/2019 9:37 PM CDT Due to temporary technical issues with the PACS/Fluency reporting system, reports are being signed by the in house radiologist as a courtesy to ensure prompt reporting. The interpreting radiologist is f ully responsible for the content of the report.
--- NOTE | 2019-06-13 10:33 | EKG ---
Test Date: 2019-06-12 Test Time: 16:45:38 Poem Writer: GEORGE MEASUREMENT RESULTS: Intervals: Rate: 93 MS: 150 QRSD: 76 QT: 344 QTc: 427 [place]: P: 31 MS: 150 QRS: 14 T: 61 INTERPRETIVE STATEMENTS: Normal sinus rhythm Normal ECG Compared to ECG 05/22/2019 16:32:11 Sinus tachycardia no longer present Electronically Signed On 06-13-19 10:31:38 CDT by Gunnar Talley
--- NOTE | 2019-06-13 10:58 | P.CNS ---
Date of Consult: 06/13/19 Primary Care Provider: Dr Estrada - PCP Chief Complaint: Respiratory failure patient on a ventilator History of Present Illness: Patient is 54 years of age end-stage liver disease liver cancer history of cirrhosis also has a TIPS place apparently was admitted with altered mental status hepatic encephalopathy patient was intubated sister present at the bedside he is very functional however patient did not want to have anything done he was against his wishes to be intubated or be resuscitated and he is just tired of going through all the procedures there is no history of fever chills diarrhea patient is refusing to take his lactulose Allergies No Known Allergies Allergy (Verified 05/22/19 22:45) Home Medications: Furosemide [Lasix] 20 mg PO DAILY 08/10/18 Glipizide [Glipizide Xl] 10 mg PO DAILY 08/10/18 Lactulose 60 ml PO TID 08/10/18 Metformin HCl [Metformin ER Osmotic] 500 mg PO BID 08/10/18 Pantoprazole [Protonix Tab*] 40 mg PO BID 08/10/18 Spironolactone [Aldactone*] 50 mg PO DAILY 08/10/18 Atorvastatin Calcium [Lipitor] 40 mg PO BEDTIME 05/23/19 Insulin Degludec [Tresiba Flextouch U-200] 18 units SQ BID 06/13/19 - Past Medical/Surgical History Diabetic: Yes -: Liver cirrhosis -: Esophageal varices -: GI bleed -: Diabetes mellitus -: Hypertension -: Banding ligation - Family History Father Medical History: Heart disease, Lung disease, Diabetes Mother Medical History: Heart disease, Diabetes Sister Medical History: Diabetes - Social History Smoking Status: Unknown if ever smoked Alcohol use: Yes CD- Drugs: No Caffeine use: No Place of Residence: Home Review of Systems is unable to be obtained Physical Examination Temp Pulse Resp BP Pulse Ox 98.3 F 94 H 16 109/56 L 100 06/13/19 10:00 06/13/19 10:00 06/13/19 10:00 06/13/19 10:00 06/13/19 10:00 General: Unresponsive (Patient on propofol) Neck: Supple Respiratory: Clear to auscultation bilaterally, Diminished Cardiovascular: No edema, Regular rate/rhythm, Normal S1 S2 Gastrointestinal: Normal bowel sounds, Soft and benign Laboratory Data (last 24 hrs) 06/12/19 16:35: PT 13.4 H, INR 1.14, APTT 30.6 06/12/19 16:35: WBC 8.8, Hgb 9.7 L, Hct 31.0 L, Plt Count 146 L 06/12/19 16:35: Sodium 138, Potassium 5.5 H, BUN 23 H, Creatinine 1.83 H, Glucose 400 H, Magnesium 2.2 - Problems (1) Hepatic encephalopathy Current Visit: Yes Status: Acute Plan: Patient is 54 years of age and stage renal disease has tips also with altered mental status hepatic encephalopathy elevated ammonia patient has a microcytic anemia. Patient was scheduled to have a TACE procedure done in [place]. Probably from cancer of the liver. Although recent CT scan of the abdomen did not show any liver mass Patient does not want to be on a ventilator plan to Dc the propofol hospitalist to verified with the patient's sister who is a caregiver consider withdrawal from the ventilator and hospice care
--- NOTE | 2019-06-13 11:14 | ECHO ---
HEIGHT: 5 ft 4 in WEIGHT: 185 lb 0 oz DATE OF STUDY: 06/13/[address]: Laura Estrada MD 2-DIMENSIONAL: YES M.MODE: YES DOPPLER: YES COLOR FLOW: YES TDS: YES PORTABLE: YES DEFINITY: NO BUBBLE STUDY: NO DIAGNOSIS: CORONARY ARTERY DISEASE CARDIAC HISTORY: CATHERIZATION: NO SURGERY: NO PROSTHETIC VALVE: NO PACEMAKER: NO MEASUREMENTS (cm) DIASTOLIC (NORMALS) SYSTOLIC (NORMALS) IVSd 1.2 (0.6-1.2) LA Diam (1.9-4.0) LVEF 57% LVIDd 3.0 (3.5-5.7) LVIDs 2.1 (2.0-3.5) %FS 29% LVPWd 1.2 (0.6-1.2) Ao Diam 3.0 (2.0-3.7) 2 DIMENSIONAL ASSESSMENT: RIGHT ATRIUM: NORMAL LEFT ATRIUM: NORMAL RIGHT VENTRICLE: NORMAL LEFT VENTRICLE: NORMAL TRICUSPID VALVE: NORMAL MITRAL VALVE: NORMAL PULMONIC VALVE: NORMAL AORTIC VALVE: NORMAL PERICARDIAL EFFUSION: NONE AORTIC ROOT: NORMAL LEFT VENTRICULAR WALL MOTION: NORMAL DOPPLER/COLOR FLOW: MILD TRICUSPID REGURGITATION. COMMENTS: MILD TRICUSPID REGURGITATION. NORMAL RIGHT VENTRICULAR SYSTOLIC PRESSURE. NORMAL LEFT VENTRICULAR SIZE AND FUNCTION. LEFT VENTRICULAR EJECTION FRACTION 57%. NO EFFUSION. TECHNOLOGIST: Delgado PIÑA
--- NOTE | 2019-06-13 12:04 | CON ---
Date of Consultation: 06/13/[address] Estrada's service on 06/12/2019, I saw the patient on 06/13/2019. Reason For Consultation: Bradycardia. History Of Present Illness: Mr. Morris is a 54-year-old male who has history of liver failure, esoph ageal varices, came in with respiratory failure after an acute CVA in the right occipital lobe. This is nonhemorrhagic. He was noted on telemetry somewhere in the emergency room or [facility] a heart rate of 23. This was not available to me. No cardiac symptoms reported. No syncope. H e had respiratory failure. He was intubated. He has a history of diabetes, dyslipidemia, gastroesop hageal reflux disease. No previous cardiac disease. His present O2 level is 189, his pCO2 of 33, pH of 7.38. He is intubated as stated earlier. Allergies: NONE. Review of Systems: Positive for history of alcohol use in the past. Social History: As stated earlier. Medications: At home, include lactulose, ciprofloxacin, Lasix, glipizide, metformin, Protonix, and A ldactone. Physical Examination: General: Intubated. O2 saturation 100% on present intubation criteria. HEENT: Negative. Neck: Supple with no bruit, lymphadenopathy or JVD. Chest: Clear. Cardiac: Regular rhythm and rate. No murmurs, gallops, or rubs. Abdomen: Benign. Extremities: No clubbing, cyanosis. He had 1+ edema. Skin: His skin was moist. Neurological: Could not be performed. His pulses were present distally bilaterally. Diagnostic Data: His creatinine is 1.83, hemoglobin 9.7, glucose is 434, troponin is 0.05, BNP is 10 17. Ammonia level is elevated. Impression And Plan: 1.Bradycardia secondary to the CVA. 2.Liver failure. 3.Respiratory failure, status post intubation. 4.Renal insufficiency. 5.Diabetes, poorly controlled. 6.Anemia. 7.Elevated ammonia level secondary to liver failure. 8.History of dyslipidemia, well controlled. 9.Gastroesophageal reflux disease. Echocardiogram is pending on Mr. Morris. We will see if there i s any cardiac involvement from his respiratory issue and liver issue. I am not worried about the bra dycardia at this point. He has not been bradycardic since he has been in the ICU. BOO/JEFF Voice ID: [id number] Report ID: [id number]
--- NOTE | 2019-06-13 14:09 | P.PN ---
Subjective Date of Service: 06/13/19 Primary Care Provider: Dr Estrada - PCP Chief Complaint: Respiratory failure patient on a ventilator Subjective: No C/O voiced, Improving, Doing well, Other (Still remains intubated.) Review of Systems 10-point ROS is otherwise unremarkable Physical Examination - Vital Signs Temperature: 99.3 F Blood Pressure: 121/62 Pulse: 101 Respirations: 15 Pulse Ox (%): 100 - Physical Exam General: Other (sedated and intubated ) Respiratory: Normal air movement, Expiratory wheezes, Inspiratory wheezes Cardiovascular: Regular rate/rhythm, Normal S1 S2 Gastrointestinal: Normal bowel sounds, No tenderness Musculoskeletal: No tenderness Integumentary: No rashes Neurological: Normal tone, Normal affect Lymphatics: No axilla or inguinal lymphadenopathy - Studies Laboratory Data (last 24 hrs) 06/12/19 16:35: PT 13.4 H, INR 1.14, APTT 30.6 06/12/19 16:35: WBC 8.8, Hgb 9.7 L, Hct 31.0 L, Plt Count 146 L 06/12/19 16:35: Sodium 138, Potassium 5.5 H, BUN 23 H, Creatinine 1.83 H, Glucose 400 H, Magnesium 2.2 Medications List Reviewed: Yes Assessment And Plan - Current Problems (Diagnosis) (1) CVA (cerebral vascular accident) Current Visit: Yes Status: Acute Plan: Acute CVA -Pt with AMS on admission. -Head CT with CVA of the right occipital lobe -MRI pending -Neurology consulted. Appreciated Reccs -On Statin. No Anticoagulation given h/o GI bleed and Liver disease (2) Acute respiratory failure Current Visit: Yes Status: Acute Plan: Acute Respiratory Failure 2.2 to hepatic Encephalopathy -Currently intubated and sedated at this time. Will wean off Sedation. -pulmonology consulted. Reccs appreciated -will continue to wean patient off the ventilator -chest x-ray clear for any acute infectious process -Monitor at this time. Qualifiers: Respiratory failure complication: hypoxia Qualified Code(s): J96.01 - Acute respiratory failure with hypoxia (3) Hepatic encephalopathy Current Visit: Yes Status: Acute Plan: Patient with hepatic encephalopathy given the history of liver cirrhosis and esophageal varices -ammonia level of 158 on admission. Now 98. -On lactulose 30 mg t.i.d. -GI is unavailable at this time -patient not able to be transferred to higher level of care due to weather conditions yesterday and thus admitted her. Now improving, If getting worse will attempt to transfer to [facility] to his liver specialists -will monitor patient closely (4) HTN (hypertension) Current Visit: Yes Status: Chronic Plan: Restart on home medication Qualifiers: Hypertension type: essential hypertension Qualified Code(s): I10 - Essential (primary) hypertension (5) Diabetes mellitus Onset Date: 08/12/18 Current Visit: No Status: Chronic Plan: Restarted on insulin sliding scale and Accu-Cheks Qualifiers: Diabetes mellitus type: type 2 Diabetes mellitus fci insulin use: without fci use Diabetes mellitus complication status: without complication Qualified Code(s): E11.9 - Type 2 diabetes mellitus without complications (6) Esophageal varices Onset Date: 08/12/18 Current Visit: No Status: Chronic Plan: H/O of Varices -On IV Protonix strip given the unknown etiology for patient's altered mental status for hepatic encephalopathy. -Will evaluate the hemoglobin and get a stool occult at this time. -GI is unavailable at this time again. -Unable to transfer patient to a higher level of care due to weather conditions. -Will attempt in next 24-48 hr if getting worse. Patient is scheduled for TACES procedure in [place] Qualifiers: Esophageal varices type: unspecified type Esophageal varices bleeding: without bleeding Qualified Code(s): I85.00 - Esophageal varices without bleeding (7) Liver cirrhosis Onset Date: 08/12/18 Current Visit: No Status: Chronic Qualifiers: Hepatic cirrhosis type: alcoholic cirrhosis Ascites presence: without ascites Qualified Code(s): K70.30 - Alcoholic cirrhosis of liver without ascites - Plan Admit patient to the ICU for further care
[2019-06-13 16:19] LABS: Blood Gas Oxyhemoglobin 96.4 % (94-97); Blood O2 Saturation 98.6 % (92-98.5)
[2019-06-13 16:20] LABS: Arterial Blood Carboxyhemoglob 1.5 % (0-1.5)
[2019-06-13] MEDS: NA CHLORIDE 0.9% 1,000 ML IV SCH (17:00)
[2019-06-13] MEDS ORDERED: VECURONIUM 10 MG/VIAL IV ONE (17:56)
[2019-06-13] MEDS ORDERED: ETOMIDATE 20 MG/10 ML VIAL IV ONE (17:56)
[2019-06-13] MEDS ORDERED: LACTULOSE 20 GM/30 ML UCUP PR ONE (19:00)
--- NOTE | 2019-06-13 19:17 | CON ---
Reason For Consultation: Consultation was called because of altered mental status. History Of Present Illness: Mr. Morris is a 54-year-old patient with multiple medical problems inclu ding liver cirrhosis and chronic alcohol user, varices, GI bleed, hypertension, diabetes, who was brought in by family after he was found unresponsive. The patient was seen by the emergency medical services. He was found to have a heart rate of low to around 23 and was intubated because of poor air movement. The patient has been in the ICU and currently on a propofol drip. Per the famil y's discussion requested not to be intubated at all. However, at this point, the patient is intubate d and he is being evaluated for this current level of functioning. As indicated, he is on a propofol drip, which is being titrated down and the patient can be further assessed. Allergies: NO KNOWN DRUG ALLERGIES. Medications: Lasix 20 mg daily, glipizide 10 mg daily, lactulose 60 mL 3 times daily, metformin 1000 mg twice daily, Protonix 40 mg twice daily, Aldactone 50 mg twice daily, Lipitor 40 mg twice daily. Past Medical History: As mentioned above, hypertension. Surgical History: Banding ligation. Family History: Positive for diabetes, mother and father. Social History: Chronic alcohol user despite the liver cirrhosis and varices along with hepatic ence phalopathy and elevated levels of ammonia. Review of Systems: Unable to perform as the patient is intubated and on propofol. Physical Examination: Vital Signs: Blood pressure 134/67, pulse 103, respiratory rate 15, temperature 99.8, oxygen saturat ion 100%. Patient is mechanically ventilated, FiO2 of 35. As indicated, he is on propofol drip. HEENT: His pupils are equal, round, 3 mm. No significant reaction seen with the light. No dolls. Neurologic: Being on propofol, the patient also does not have any withdrawal movement of the extremi ties, but noxious stimulation. He does have normal tone. Unable to assess strength, sensation, coor dination, or gait. Laboratory Studies: White blood cell count 16.3 with 84.4% neutrophils, hemoglobin 8.9, hematocrit 2 7.5, platelets 104. INR 1.14. Blood gases upon admission, pH 7.38, currently 7.46; pCO2 33.1 on adm ission, currently 31.6; pO2 was 189, currently 107. Chemistries show sodium 144, potassium 4.0, chlo ride 111, carbon dioxide 24, BUN 25, creatinine 0.63, glucose ranged from 260 to 315. Lactic acid is elevated to 2.7. Ammonia level is now 93, down from a high of 158. I initially noted on admission his glucose was over 599. His ALT is 54, alkaline phosphatase 301. Urinalysis shows greater than 50 bacteria, 1+ esterase, 3+ blood, protein 1+, glucose 3+. His drug screen is negative and RPR nonrea ctive. Echocardiogram shows no significant abnormalities with normal ejection fraction. Head CT sca n done on the showed a decreased area of attenuation in the right occipital lobe, questionable f or nonhemorrhagic stroke. It has not been confirmed by MRI. Assessment: Mr. Morris is a 54-year-old patient with multiple etiologies of acute on chroni c encephalopathy. He has hepatic encephalopathy with ammonia level increasing. He has had very elev ated blood sugars of greater than 500 and sucrose is over 600. He has a likely chronic alcohol-relat ed cognitive impairment and there is evidence of possible systemic infection with elevated procalcito emery and white blood cell count. The brain MRI suggests possibility of an acute or subacute ischemic stroke. The patient's family indicates that he did not want to be intubated for any reason, and that was discussed at length with the patient's family that since the patient is here and is already intu bated and he has blood parameters, brain CT scan and echocardiogram are not consistent with a termina l illness. At this point, all will be done to address the patient's medical condition. The patient will be tapered off propofol and this will be determined if he is able to manage respirations on his own and if that is the case, the next step will be for the patient and family to discuss other forms of care to continue his care including hospice or home or fpc. Plan: 1.As indicated, the patient will be tapered off propofol. 2.He will be . He should continue with antibiotics for his systemic infection. Continue with lactulose to decrease the ammonia level and an MRI of the brain, stroke protocol, and . At this point, he is high bleeding risk, so I would be cautious using aspirin or Plavix for antico agulation. MARQUIS/JEFF Voice ID: [id number] Report ID: [id number]
[2019-06-13] MEDS: PIPER/TAZO/NS 3.375gm 3.375 GM/100 ML BAG IVPB SCH (19:38)
[2019-06-13] MEDS: ATORVASTATIN 40 MG TAB PO SCH (20:37)
[2019-06-14] MEDS: INSULIN -REGULAR HUMAN 50 UNIT/0.5 ML ML SQ SCH ×4 (00:31→20:33)
[2019-06-14] MEDS: PIPER/TAZO/NS 3.375gm 3.375 GM/100 ML BAG IVPB SCH ×3 (01:37→17:28)
[2019-06-14] MEDS: NA CHLORIDE 0.9% 1,000 ML IV SCH ×3 (01:38→23:25)
[2019-06-14 05:14] LABS: Absolute Lymphocytes (CBC) 1.2 K/uL (0.7-4.9); Basophils % 0.6 % (0-1.3); Hematocrit 25.6 % (39.6-49.0); Lymphocytes % 12.2 % (15.3-44.8); MPV 9.3 fL (7.6-11.3)
[2019-06-14 05:21] LABS: Albumin 2.7 g/dL (3.4-5.0); Bilirubin Total 1.5 mg/dL (0.2-1.0); Potassium 3.8 mmol/L (3.5-5.1); Protein, Total 6.4 g/dL (6.4-8.2)
[2019-06-14 05:45] LABS: Arterial Blood Carboxyhemoglob 1.9 % (0-1.5); Blood O2 Saturation 98.2 % (92-98.5)
[2019-06-14] MEDS: PANTOPRAZOLE INJ 80 MG in NA CHLORIDE 0.9% 250 ML IV SCH ×4 (07:12→17:27)
[2019-06-14] MEDS: LACTULOSE 20 GM/30 ML UCUP PO SCH ×3 (07:59→20:10)
[2019-06-14] MEDS: CEFTRIAXONE/SWI 1gm 1 GM/10 ML SYR IVP SCH (07:59)
--- NOTE | 2019-06-14 11:18 | RAD REPORT ---
EXAM DESCRIPTION: RAD - Chest Single View - 06/14/2019 5:31 am CLINICAL HISTORY: Intubated Chest pain. COMPARISON: Chest Single View dated 06/13/2019; Chest Single View dated 06/12/2019; Chest Single View dated 06/12/2019; Chest Pa And Lat (2 Views) dated 05/22/2019 FINDINGS: Portable technique limits examination quality. The lungs are grossly clear. The heart is normal in size. Tip of the ET tube is above the thang. Ent kun tube descends in the stomach. IMPRESSION: No acute intrathoracic process suspected.
--- NOTE | 2019-06-14 11:38 | P.PN ---
Subjective Date of Service: 06/14/19 Primary Care Provider: Dr Estrada - PCP Chief Complaint: Respiratory failure patient on a ventilator Patient seen and examined at bedside with RN. Chart reviewed. Case discussed with pulmonology at this time. Currently patient is extubated doing well overall. No complaints to offer overnight. Review of Systems 10-point ROS is otherwise unremarkable Physical Examination - Vital Signs Temperature: 98.5 F Blood Pressure: 129/64 Pulse: 82 Respirations: 15 Pulse Ox (%): 100 - Physical Exam General: Alert, In no apparent distress HEENT: Atraumatic, PERRLA, EOMI Neck: Supple, JVD not distended Respiratory: Clear to auscultation bilaterally, Normal air movement Cardiovascular: Regular rate/rhythm, Normal S1 S2 Gastrointestinal: Normal bowel sounds, No tenderness Musculoskeletal: No tenderness Integumentary: No rashes Neurological: Normal speech, Normal tone, Normal affect Lymphatics: No axilla or inguinal lymphadenopathy - Studies Medications List Reviewed: Yes Assessment And Plan - Current Problems (Diagnosis) (1) CVA (cerebral vascular accident) Current Visit: Yes Status: Acute Plan: Acute CVA -Pt with AMS on admission. -Head CT with CVA of the right occipital lobe -MRI pending will be done on Sunday -Neurology consulted. Appreciated Reccs -On Statin. No Anticoagulation given h/o GI bleed and Liver disease Qualifiers: CVA mechanism: occlusion Precerebral and cerebral artery: posterior cerebral artery Laterality of affected vessel: unspecified Qualified Code(s) : I63.539 - Cerebral infarction due to unspecified occlusion or stenosis of unspecified posterior cerebral artery (2) Acute respiratory failure Current Visit: Yes Status: Acute Plan: Acute Respiratory Failure 2.2 to hepatic Encephalopathy -now extubated and doing well overall. On oxygen will wean off oxygen as tolerated -pulmonology consulted. Reccs appreciated -chest x-ray clear for any acute infectious process -Monitor at this time. Qualifiers: Respiratory failure complication: hypoxia Qualified Code(s): J96.01 - Acute respiratory failure with hypoxia (3) Hepatic encephalopathy Current Visit: Yes Status: Acute Plan: Patient with hepatic encephalopathy given the history of liver cirrhosis and esophageal varices. Improved markedly -today is alert and oriented x3 -ammonia level of 158 on admission. Now 48. -On lactulose 30 mg t.i.d. -GI is unavailable at this time -patient not able to be transferred to higher level of care due to weather conditions yesterday and thus admitted her. Now improving, If getting worse will attempt to transfer to [facility] to his liver specialists -will monitor patient closely (4) HTN (hypertension) Current Visit: Yes Status: Chronic Plan: Restart on home medication Qualifiers: Hypertension type: essential hypertension Qualified Code(s): I10 - Essential (primary) hypertension (5) Diabetes mellitus Onset Date: 08/12/18 Current Visit: No Status: Chronic Plan: Restarted on insulin sliding scale and Accu-Cheks Qualifiers: Diabetes mellitus type: type 2 Diabetes mellitus nursing home insulin use: without nursing home use Diabetes mellitus complication status: without complication Qualified Code(s): E11.9 - Type 2 diabetes mellitus without complications (6) Esophageal varices Onset Date: 08/12/18 Current Visit: No Status: Chronic Plan: H/O of Varices -On IV Protonix strip given the unknown etiology for patient's altered mental status for hepatic encephalopathy. -hemoglobin has been stable here in the hospital. Stool occult negative for GI bleed -GI is unavailable at this time again. -Unable to transfer patient to a higher level of care due to weather conditions. -Patient is scheduled for TACES procedure in [place] Qualifiers: Esophageal varices type: unspecified type Esophageal varices bleeding: without bleeding Qualified Code(s): I85.00 - Esophageal varices without bleeding (7) Liver cirrhosis Onset Date: 08/12/18 Current Visit: No Status: Chronic Qualifiers: Hepatic cirrhosis type: alcoholic cirrhosis Ascites presence: without ascites Qualified Code(s): K70.30 - Alcoholic cirrhosis of liver without ascites - Plan Continue monitor patient here in the ICU. Has been extubated today. Will await for MRI results on Sunday. Discharge Plan: Home Plan to discharge in: Greater than 2 days - Code Status/Comfort Care Code Status Assessed: Yes Critical Care: Yes
[2019-06-14] MEDS ORDERED: INSULIN -REGULAR HUMAN 50 UNIT/0.5 ML ML SQ SCH (16:30)
[2019-06-14] MEDS: ATORVASTATIN 40 MG TAB PO SCH (20:11)
[2019-06-14] MEDS ORDERED: GLUCAGON 1 MG/VIAL IM PRN (20:21)
[2019-06-14] MEDS ORDERED: D50W 25 GM/50 ML SYRINGE IV PRN (20:21)
[2019-06-14] MEDS: INSULIN GLARGINE 100 UNITS/ML SQ SCH (20:32)
[2019-06-14] MEDS ORDERED: INSULIN -REGULAR HUMAN 50 UNIT/0.5 ML ML ONE (20:33)
[2019-06-14] MEDS ORDERED: INSULIN GLARGINE 100 UNITS/ML SQ ONE (20:33)
[2019-06-15 05:57] LABS: Absolute Lymphocytes (CBC) 1.1 K/uL (0.7-4.9); Basophils % 1.1 % (0-1.3); Hematocrit 24.4 % (39.6-49.0); Lymphocytes % 18.9 % (15.3-44.8); RBC Red Blood Cell Count 3.59 M/uL (4.33-5.43)
[2019-06-15 06:01] LABS: Albumin 2.4 g/dL (3.4-5.0); Bilirubin Total 0.9 mg/dL (0.2-1.0); Potassium 3.8 mmol/L (3.5-5.1); Protein, Total 6.1 g/dL (6.4-8.2)
[2019-06-15 06:10] LABS: Blood O2 Saturation 97.3 % (92-98.5)
--- NOTE | 2019-06-15 07:54 | RAD REPORT ---
EXAM DESCRIPTION: RAD - Chest Single View - 06/15/2019 5:36 am CLINICAL HISTORY: Respiratory distress, extubation COMPARISON: June 14 TECHNIQUE: AP portable chest image was obtained 0532 hours . FINDINGS: No pulmonary edema or significant lung parenchymal process seen. Lung barragan are similar t o comparison. ET tube and NG tube have been removed. Heart and vasculature are normal. No measurable pleural effusion and no pneumothorax. No acute bony abnormality seen. No acute aortic findings suspec bismark. IMPRESSION: ET tube and NG tube have been removed. No new or progressive cardiopulmonary finding.
[2019-06-15] MEDS ORDERED: POTASSIUM 25 MEQ EFFERV TAB PO ONE (08:00)
[2019-06-15] MEDS: CEFTRIAXONE/SWI 1gm 1 GM/10 ML SYR IVP SCH (08:17)
[2019-06-15] MEDS: INSULIN -REGULAR HUMAN 50 UNIT/0.5 ML ML SQ SCH ×4 (08:18→20:33)
[2019-06-15] MEDS: LACTULOSE 20 GM/30 ML UCUP PO SCH ×3 (08:19→20:33)
[2019-06-15] MEDS: PANTOPRAZOLE INJ 80 MG in NA CHLORIDE 0.9% 250 ML IV SCH (08:21)
--- NOTE | 2019-06-15 11:49 | P.PN ---
Subjective Date of Service: 06/15/19 Primary Care Provider: Dr Estrada - PCP Chief Complaint: Respiratory failure patient on a ventilator Patient seen and examined at bedside with RN. Chart reviewed. Case discussed with pulmonology at this time. Doing much better than before. Will transfer to the regular floor today Review of Systems 10-point ROS is otherwise unremarkable Physical Examination - Vital Signs Temperature: 98.3 F Blood Pressure: 128/59 Pulse: 99 Respirations: 21 Pulse Ox (%): 100 - Physical Exam General: Alert, In no apparent distress HEENT: Atraumatic, PERRLA, EOMI Neck: Supple, JVD not distended Respiratory: Clear to auscultation bilaterally, Normal air movement Cardiovascular: Regular rate/rhythm, Normal S1 S2 Gastrointestinal: Normal bowel sounds, No tenderness Musculoskeletal: No tenderness Integumentary: No rashes Neurological: Normal speech, Normal tone, Normal affect Lymphatics: No axilla or inguinal lymphadenopathy - Studies Medications List Reviewed: Yes Assessment And Plan - Current Problems (Diagnosis) (1) CVA (cerebral vascular accident) Current Visit: Yes Status: Acute Plan: Acute CVA -Pt with AMS on admission. -Head CT with CVA of the right occipital lobe -MRI pending will be done on Sunday -Neurology consulted. Appreciated Reccs -On Statin. No Anticoagulation given h/o GI bleed and Liver disease Qualifiers: CVA mechanism: occlusion Precerebral and cerebral artery: posterior cerebral artery Laterality of affected vessel: unspecified Qualified Code(s) : I63.539 - Cerebral infarction due to unspecified occlusion or stenosis of unspecified posterior cerebral artery (2) Acute respiratory failure Current Visit: Yes Status: Acute Plan: Acute Respiratory Failure 2.2 to hepatic Encephalopathy. Resolved now -and weaned off to room air -pulmonology consulted. Reccs appreciated -chest x-ray clear for any acute infectious process -Monitor at this time. Qualifiers: Respiratory failure complication: hypoxia Qualified Code(s): J96.01 - Acute respiratory failure with hypoxia (3) Hepatic encephalopathy Current Visit: Yes Status: Acute Plan: Patient with hepatic encephalopathy given the history of liver cirrhosis and esophageal varices. Improved markedly -today is alert and oriented x3 -ammonia level of 158 on admission. Now 48. -On lactulose 30 mg t.i.d. -GI is unavailable at this time -patient not able to be transferred to higher level of care due to weather conditions yesterday and thus admitted her. Now improving, If getting worse will attempt to transfer to 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 -hemoglobin has been stable here in the hospital. Stool occult negative for GI bleed -GI is unavailable at this time again. -Unable to transfer patient to a higher level of care due to weather conditions. -Patient is scheduled for TACES procedure in [place] Qualifiers: Esophageal varices type: unspecified type Esophageal varices bleeding: without bleeding Qualified Code(s): I85.00 - Esophageal varices without bleeding (7) Liver cirrhosis Onset Date: 08/12/18 Current Visit: No Status: Chronic Qualifiers: Hepatic cirrhosis type: alcoholic cirrhosis Ascites presence: without ascites Qualified Code(s): K70.30 - Alcoholic cirrhosis of liver without ascites - Plan Will transfer the patient to the regular floor today. Monitor for next 24-48 hr.. Will await for MRI results on Sunday. Discharge Plan: Home Plan to discharge in: Greater than 2 days - Code Status/Comfort Care Code Status Assessed: Yes Critical Care: Yes
[2019-06-15] MEDS ORDERED: DIPHENHYDRAMINE 25 MG TAB/CAP PO ONE (12:18)
[2019-06-15] MEDS: ATORVASTATIN 40 MG TAB PO SCH (20:33)
[2019-06-15] MEDS: INSULIN GLARGINE 100 UNITS/ML SQ SCH (20:33)
[2019-06-16 05:31] VITALS: BMI 29.3
[2019-06-16 06:00] LABS: Albumin 2.5 g/dL (3.4-5.0); Bilirubin Total 0.8 mg/dL (0.2-1.0); Phosphorus 2.5 mg/dL (2.5-4.9); Potassium 3.9 mmol/L (3.5-5.1); Protein, Total 6.2 g/dL (6.4-8.2)
[2019-06-16 06:12] LABS: Absolute Lymphocytes (CBC) 1.1 K/uL (0.7-4.9); Basophils % 0.7 % (0-1.3); Hematocrit 24.9 % (39.6-49.0); Lymphocytes % 17.3 % (15.3-44.8); MPV 8.7 fL (7.6-11.3); RBC Red Blood Cell Count 3.66 M/uL (4.33-5.43)
[2019-06-16] MEDS: CEFTRIAXONE/SWI 1gm 1 GM/10 ML SYR IVP SCH (09:07)
[2019-06-16] MEDS: LACTULOSE 20 GM/30 ML UCUP PO SCH ×2 (09:07→12:46)
[2019-06-16] MEDS: INSULIN -REGULAR HUMAN 50 UNIT/0.5 ML ML SQ SCH ×2 (09:08→12:46)
[2019-06-16] MEDS: POTASS/SODIUM PHOSPHATE 1 PKT POWD.PACK PO SCH ×2 (09:08→12:46)
--- NOTE | 2019-06-16 09:25 | PN ---
Date of Progress Note: 06/14/2019 Mr. Morris has multiple issues including encephalopathy, history of acute CVA, cirrhosis. Has been e xtubated early this morning. He has hypertension, diabetes, esophageal varices. I initially saw him because of severe bradycardia that was not documented. I thought that was probably related to his C [facility]. Echocardiogram was ordered that was normal. He has not had any further bradycardia issue and he will continue his medical regimen and I will sign off his case for now. BOO/JEFF Voice ID: [id number] Report ID: [id number]
[2019-06-16 10:38] VITALS: O2SAT 99
--- NOTE | 2019-06-16 12:50 | RAD REPORT ---
EXAM DESCRIPTION: MRI - MRA Head Wo Cont - 06/16/2019 12:22 pm CLINICAL HISTORY: cva COMPARISON: None. TECHNIQUE: Magnetic resonance angiogram was performed. 3D MIPS reconstruction performed FINDINGS: The anterior cerebral, middle cerebral, posterior cerebral, distal internal carotid and ba silar arteries do not demonstrate a significant stenosis. The A1 segment left anterior cerebral arter y is hypoplastic. This is a normal variant An aneurysm is not displayed. IMPRESSION: Unremarkable MRA brain.
--- NOTE | 2019-06-16 12:52 | RAD REPORT ---
EXAM DESCRIPTION: MRI - MRA Neck W/Wo Cont - 06/16/2019 12:22 pm CLINICAL HISTORY: CVA COMPARISON: None. TECHNIQUE: Magnetic resonance angiogram of the neck was performed. 19 cc MultiHance was administered intravenously. 3D MIPS reconstruction performed FINDINGS: Mild to moderate narrowing proximal right external carotid artery The common carotid, internal carotid and left external external carotid arteries do not demonstrate a stenosis. An aneurysm is not seen. The vertebral arteries are codominant without visualization of an abnormality. IMPRESSION: No significant abnormality of the common carotid and internal carotid arteries NASCET criteria used. Mild 0-49% stenosis Moderate 50-69% stenosis Severe 70-99% stenosis
--- NOTE | 2019-06-16 12:54 | RAD REPORT ---
EXAM DESCRIPTION: MRI - Brain W/Wo Cont - 06/16/2019 12:21 pm CLINICAL HISTORY: cva COMPARISON: June 12, [address] TECHNIQUE: Axial, sagittal, and coronal magnetic images of the brain were obtained. 20 cc MultiHance administered intravenously FINDINGS: Some of the images are degraded by patient motion artifact Mild signal within periventricular, deep and subcortical white matter probably ischemic changes seco ndary to small vessel disease The ventricles are normal in caliber. Diffusion-weighted/ ADC mapping sequences do not demonstrate evidence of an acute infarction. No abnormal enhancement within the brain is seen. An extra-axial fluid collection is not noted. Fluid within the sinuses/mastoids is not seen IMPRESSION: No acute abnormality displayed
--- NOTE | 2019-06-16 13:14 | P.DS ---
Admission Date: 06/12/19 Discharge Date: 06/16/19 Primary Care Provider: Dr Estrada - PCP Disposition: ROUTINE DISCHARGE Discharge Condition: GOOD Reason for Admission: Respiratory failure patient on a ventilator Consultations: Neurology Pulmonology Hepatology - Problems (1) CVA (cerebral vascular accident) Current Visit: Yes Status: Acute Qualifiers: CVA mechanism: occlusion Precerebral and cerebral artery: posterior cerebral artery Laterality of affected vessel: unspecified Qualified Code(s) : I63.539 - Cerebral infarction due to unspecified occlusion or stenosis of unspecified posterior cerebral artery (2) Acute respiratory failure Current Visit: Yes Status: Acute Qualifiers: Respiratory failure complication: hypoxia Qualified Code(s): J96.01 - Acute respiratory failure with hypoxia (3) Hepatic encephalopathy Current Visit: Yes Status: Acute (4) HTN (hypertension) Current Visit: Yes Status: Chronic Qualifiers: Hypertension type: essential hypertension Qualified Code(s): I10 - Essential (primary) hypertension (5) Diabetes mellitus Onset Date: 08/12/18 Current Visit: No Status: Chronic Qualifiers: Diabetes mellitus type: type 2 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: without 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-term use Diabetes mellitus complication status: without complication Qualified Code(s): E11.9 - Type 2 diabetes mellitus without complications (6) Esophageal varices Onset Date: 08/12/18 Current Visit: No Status: Chronic Qualifiers: Esophageal varices type: unspecified type Esophageal varices bleeding: without bleeding Qualified Code(s): I85.00 - Esophageal varices without bleeding (7) Liver cirrhosis Onset Date: 08/12/18 Current Visit: No Status: Chronic Qualifiers: Hepatic cirrhosis type: alcoholic cirrhosis Ascites presence: without ascites Qualified Code(s): K70.30 - Alcoholic cirrhosis of liver without ascites Brief History of Present Illness: 54-year-old male with significant past medical history of liver cirrhosis status post TIPS, esophageal varices, GI bleed, hypertension, diabetes, who presented to the ED with EMS. Family at bedside was the major source of information. Sister stated that she of talk to the patient this morning around 7:30 a.m. and he was not doing well at that time was not able to communicate and understand after his sister. His sister later on went to go see the patient and he was unresponsive not able to communicate properly and was looking very lethargic. Sister stated that she then called the EMS and when the EMS arrived there his heart rate was 23 and he was very unresponsive and thus was intubated on site. Sister stated that he has been having some problems for past couple of days with diet and has been complaining of having some generalized weakness for the patient was recently started on nail insulin by his primary care provider. Patient's family denies having any nausea vomiting abdominal pain fever chills or any other symptoms at this time. Family stated that he was scheduled for TACE procedure in [place] on Sunday for his liver. Patient was initially referred to be transferred out to [place] however due to inclement weather no life flight or ambulance were available to transfer the patient to the [facility] for higher level of care since our facility does not have GI for neurology on-call. Patient thus was kept here in the hospital for further management at this time until transfer process can be re-initiated if needed in next 24-48 hr. Hospital Course: Overall during the hospital stay patient remained stable Patient was initially admitted to the hospital for acute respiratory failure after he was found to be obtunded at home. Initially patient had a head CT done here in the hospital and was found to have a right occipital lobe infarct. Patient was admitted to the ICU for further care. Patient while here in the highs see you remained intubated and was successfully weaned off of the ventilator and extubated to room air. The patient did well overall. Initially patient was also started on IV antibiotics and blood cultures urine culture and sputum cultures were all collected. Patient also had an ammonia level of 158. Patient's acute [place] did episode was most likely secondary to hepatic encephalopathy. Patient was given lactulose here in the hospital. After patient's ammonia level came back to within normal limits patient became more alert and oriented. Was successfully extubated and was doing well overall. Culture remained negative here in the hospital. Patient was transferred to the regular floor and was working with physical therapy. Doing well overall. Brain MRI was done. Brain MRI was negative for any acute abnormality no acute infarct was noted. Patient did not have any CVA here in the hospital. Patient then was discharged home under stable condition was asked to follow up with primary care provider along with life science technical officer in [place]. Patient was also asked to continue taking all his medications as prescribed by his primary care doctor along with Lipitor. Aspirin is contraindicated at this time given the history of GI bleed. Patient was to also follow up with Neurology in about 1-2 days post discharge. Vital Signs/Physical Exam: Temp Pulse Resp BP Pulse Ox 98.8 F 86 16 123/61 99 06/16/19 08:00 06/16/19 08:00 06/16/19 08:00 06/16/19 08:00 06/16/19 08:00 General: Alert, In no apparent distress HEENT: Atraumatic, PERRLA, EOMI Neck: Supple, JVD not distended Respiratory: Clear to auscultation bilaterally, Normal air movement Cardiovascular: Regular rate/rhythm, Normal S1 S2 Gastrointestinal: Normal bowel sounds, No tenderness Musculoskeletal: No tenderness Integumentary: No rashes Neurological: Normal speech, Normal tone, Normal affect Lymphatics: No axilla or inguinal lymphadenopathy Laboratory Data at Discharge: WBC 6.6 K/uL (4.3-10.9) 06/16/19 05:25 Hgb 7.9 g/dL (13.6-17.9) L* 06/16/19 05:25 Hct 24.9 % (39.6-49.0) L 06/16/19 05:25 Plt Count 137 K/uL (152-406) L D 06/16/19 05:25 PT 13.4 SECONDS (9.5-12.5) H 06/12/19 16:35 INR 1.14 06/12/19 16:35 APTT 30.6 SECONDS (24.3-36.9) 06/12/19 16:35 Sodium 143 mmol/L (136-145) 06/16/19 05:25 Potassium 3.9 mmol/L (3.5-5.1) 06/16/19 05:25 BUN 10 mg/dL (7-18) 06/16/19 05:25 Creatinine 1.08 mg/dL (0.55-1.3) 06/16/19 05:25 Glucose 236 mg/dL (74-106) H 06/16/19 05:25 Phosphorus 2.5 mg/dL (2.5-4.9) 06/16/19 05:25 Magnesium 2.2 mg/dL (1.8-2.4) 06/12/19 16:35 Total Bilirubin 0.8 mg/dL (0.2-1.0) 06/16/19 05:25 AST 74 U/L (15-37) H 06/16/19 05:25 ALT 48 U/L (12-78) 06/16/19 05:25 Alkaline Phosphatase 195 U/L (45-117) H 06/16/19 05:25 Home Medications: Furosemide [Lasix] 20 mg PO DAILY 08/10/18 Metformin HCl [Metformin ER Osmotic] 500 mg PO BID 08/10/18 Pantoprazole [Protonix Tab*] 40 mg PO BID 08/10/18 Spironolactone [Aldactone*] 50 mg PO DAILY 08/10/18 Atorvastatin Calcium [Lipitor] 40 mg PO BEDTIME 05/23/19 Insulin Degludec [Tresiba Flextouch U-200] 18 units SQ BID 06/13/19 Lactulose 30 ml PO BID #1 bottle 06/16/19 New Medications: Lactulose 30 ml PO BID #1 bottle Diet: Regular Activity: Ad laquita Followup: Erasmo Andrade MD [ASSOCIATE-ACTIVE - CAN ADMIT] - 1 Week
[2019-06-16 13:45] VITALS: BP 121/60; TEMP 97.8
[2019-06-18 13:45] LABS: HBsAG Nonreactive (Nonreactive)
[2019-06-19 18:18] LABS: Hep C Virus RNA (PCR)log 5.44 log IU/mL
== END 2019-06-16 14:24 | disposition home health service (06) | DRG 208 ==
LOC: ER 16:21 → ERHOLD 17:49 → 3RD-ICU 18:24 → 2ND 06-15 14:00
PROVIDERS: ADMIT Family Medicine; ATTEND Family Medicine
PROC: 5A1945Z Respiratory Ventilation, 24-96 Consecutive Hours (ICD-10-PCS; principal; 2019-06-12)
PROC: 0BH17EZ Insertion of Endotracheal Airway into Trachea, Via Natural or Artificial Opening (ICD-10-PCS; 2019-06-12)
DX: J96.01 Acute respiratory failure with hypoxia (principal); K72.00 Acute and subacute hepatic failure without coma; I85.10 Secondary esophageal varices without bleeding; K70.30 Alcoholic cirrhosis of liver without ascites; I10 Essential (primary) hypertension; E11.9 Type 2 diabetes mellitus without complications; R00.1 Bradycardia, unspecified
CPT/HCPCS: 36415; 51702; 70450; 70544; 70549; 70553; 71045; 80048; 80053; 80074; 80307; 80320; 81003; 81015; 82140; 82607; 82805; 82962; 83605; 83735; 84100; 84443; 84484; 85025; 85610; 85652; 85730; 86592; 87040; 87070; 87086; 87088; 87205; 87522; 93005; 93306; 94002; 94003; 96365; 96375; 97110; 97116; 97161; 97530; 99291; 99292; A9577; C9113; J0696; J2543; J2704; J3010; J7030

== ENCOUNTER 2019-07-18 17:38 | Observation (INO) | payer MEDICAID ==
[2019-07-18] MEDS ORDERED: ONDANSETRON 4 MG/2 ML VIAL ONE (18:28)
[2019-07-18] MEDS ORDERED: PANTOPRAZOLE 40 MG INJ ONE (18:28)
[2019-07-18] MEDS ORDERED: NA CHLORIDE 0.9% 1,000 ML ONE (18:28)
[2019-07-18 18:43] LABS: Absolute Lymphocytes (CBC) 1.4 K/uL (0.7-4.9); Basophils % 0.6 % (0-1.3); Hematocrit 32.3 % (39.6-49.0); Lymphocytes % 14.9 % (15.3-44.8); MPV 8.8 fL (7.6-11.3); RBC Red Blood Cell Count 5.04 M/uL (4.33-5.43)
[2019-07-18 18:46] LABS: Protime INR 1.05
[2019-07-18 18:59] LABS: Albumin 3.6 g/dL (3.4-5.0); Bilirubin Direct 0.4 mg/dL (0-0.2); Bilirubin Total 1.1 mg/dL (0.2-1.0); Magnesium 2.3 mg/dL (1.8-2.4); Troponin (Emerg Dept Use Only) 0.04 ng/mL (0.0-0.045)
[2019-07-18 19:01] LABS: Potassium 5.8 mmol/L (3.5-5.1)
--- NOTE | 2019-07-18 19:05 | RAD REPORT ---
EXAM DESCRIPTION: Stephon Single View07/18/2019 6:42 pm CLINICAL HISTORY: Hypertension /vomiting COMPARISON: May 2019 FINDINGS: The lungs appear clear of acute infiltrate. The heart is normal size IMPRESSION: No acute abnormalities displayed
--- NOTE | 2019-07-18 19:12 | RAD REPORT ---
EXAM DESCRIPTION: CT - Head Brain Wo Cont - 07/18/2019 6:59 pm CLINICAL HISTORY: Alteration of awareness/confusion COMPARISON: May 2019 TECHNIQUE: Computed axial tomography of the head was obtained. IV contrast was not requested. All CT scans are performed using dose optimization technique as appropriate and may include automated exposure control or mA/KV adjustment according to patient size. FINDINGS: An intracranial bleed is not seen . The ventricles are normal in caliber. No extra-axial fluid collection is noted. Fluid within the sinuses/ mastoids is not seen. IMPRESSION: No acute intracranial abnormality is seen. If patient's symptoms persist MRI of the bra in would be recommended.
[2019-07-18] MEDS ORDERED: NA CHLORIDE 0.9% 2,000 ML ONE (19:33)
[2019-07-18] MEDS ORDERED: INSULIN -REGULAR HUMAN 50 UNIT/0.5 ML ML ONE ×2 (19:36→22:04)
[2019-07-18] MEDS ORDERED: ALBUTEROL 2.5 MG/3 ML NEB SOL ONE (20:16)
[2019-07-18] MEDS ORDERED: SOD POLYSTYREN SUL 15 GM/60 ML UCUP ONE (20:17)
[2019-07-18] MEDS ORDERED: LACTULOSE 20 GM/30 ML UCUP ONE (20:17)
--- NOTE | 2019-07-18 20:28 | ER ---
Nurse's Notes [facility] Name: Janusz Morris Jr Age: 54 yrs Sex: Male : 1965 Arrival Date: 07/18/2019 Time: 17:41 Bed 17 Private MD: Tima Estrada Diagnosis: Encephalopathy, unspecified-hepatic;Hyperkalemia;Diabetes mellitus due to underlying condition with hyperglycemia Presentation: 07/18 17:52 Presenting complaint: Sister reports abd pain, vomiting, forgetful, hyperglycemia x 4 sv days. Transition of care: patient was not received from another setting of care. Onset of symptoms was July 14, 2019. Care prior to arrival: None. 17:52 Method Of Arrival: Wheelchair sv 17:52 Acuity: AJ 3 sv 17:53 Risk Assessment: Do you want to hurt yourself or someone else? Patient reports no em desire to harm self or others. Initial Sepsis Screen: Does the patient meet any 2 criteria? No. Patient's initial sepsis screen is negative. Does the patient have a suspected source of infection? No. Patient's initial sepsis screen is negative. Historical: - Allergies: 17:53 No Known Allergies; sv - Home Meds: 21:35 atorvastatin 40 mg Oral tab 1 tab once daily [Active]; furosemide 20 mg Oral tab 1 tab rr5 once daily [Active]; glipizide 10 mg Oral tab 1 tab once daily [Active]; metformin 1,000 mg Oral tab 1 tab 2 times per day [Active]; lactulose 10 gram/15 mL Oral soln 60 mL 3 times per day [Active]; pantoprazole 40 mg Oral TbEC 1 tab 2 times per day [Active]; propranolol 20 mg Oral tab 1 tab twice a day [Active]; spironolactone 50 mg Oral tab 1 tab once daily [Active]; - PMHx: 17:53 Alcoholism; Cirrhosis; Diabetes - NIDDM; esophageal varices; GI Bleed; Hypertension; sv - Immunization history:: Adult Immunizations up to date. - Social history:: Smoking status: unknown. - Ebola Screening: : Patient negative for fever greater than or equal to 101.5 degrees Fahrenheit, and additional compatible Ebola Virus Disease symptoms Patient denies exposure to infectious person Patient denies travel to an Ebola-affected area in the 21 days before illness onset No symptoms or risks identified at this time. Screenin:50 Abuse screen: Denies threats or abuse. Nutritional screening: No deficits noted. em Tuberculosis screening: No symptoms or risk factors identified. Fall Risk None identified. 20:36 Patient has been NPO before screening. The patient is alert, able to follow commands. rr5 The patient does not exhibit slurred or garbled speech The patient is not exhibiting difficulty speaking. The patient does not exhibit difficulty understanding words. The patient is able to swallow own secretions with no drooling or need for suction. Patient tolerated one teaspoon of water. No drooling, immediate coughing, gurgling, or clearing of the throat was noted. The patient tolerated 90mL of water. No drooling, immediate coughing, gurgling, or clearing of the throat was noted. The patient passed the bedside swallow screening. Oral medications may be given as ordered. Contact Physician for further diet orders. Provider notified of bedside swallow screening results: Jorge HASSAN. Assessment: 18:00 General: Appears in no apparent distress. comfortable, Behavior is calm, drowsy, flat, em Denies fever. Pain: Complains of pain in abdomen. Neuro: Level of Consciousness is awake, alert, obeys commands, Oriented to person, place, time. Cardiovascular: Denies chest pain, Capillary refill < 3 seconds Patient's skin is warm and dry. Respiratory: Airway is patent Respiratory effort is even, unlabored, Respiratory pattern is regular, symmetrical. GI: Abdomen is flat, Bowel sounds present X 4 quads. Abd is soft and non tender X 4 quads. Reports nausea, vomiting, Patient currently denies diarrhea. Derm: Skin is intact, is healthy with good turgor, Skin is normal. Musculoskeletal: Capillary refill < 3 seconds, Range of motion: intact in all extremities. 19:00 General: Appears in no apparent distress. comfortable, Behavior is calm, cooperative, rr5 drowsy. Neuro: Level of Consciousness is awake, alert, obeys commands, Oriented to person, place, time. Cardiovascular: Capillary refill < 3 seconds Patient's skin is warm and dry. Respiratory: Airway is patent Respiratory effort is even, unlabored, Respiratory pattern is regular, symmetrical. GI: Abdomen is round Patient currently denies diarrhea, Parent/caregiver reports the patient having nausea, vomiting, pain. : No signs and/or symptoms were reported regarding the genitourinary system. EENT: No signs and/or symptoms were reported regarding the EENT system. Derm: Skin is intact, Skin is normal. Musculoskeletal: Capillary refill < 3 seconds, Range of motion: intact in all extremities. 20:00 Reassessment: Patient appears in no apparent distress at this time. awaiting for rr5 results. 20:15 Reassessment: K 5.8 meq and ammonia 123 umol/L, please see MAR for the stat medication rr5 ordered. 21:20 Reassessment: Patient appears in no apparent distress at this time. No changes from rr5 previously documented assessment. Patient and/or family updated on plan of care and expected duration. Pain level reassessed. no complaints made, resting eyes closed breathing spontaneously at room air. 22:15 Reassessment: Patient appears in no apparent distress at this time. repeat CBG 311 rr5 mg/DL ED provider aware with order made and carried out. Reassessment: Patient appears in no apparent distress at this time. Vital Signs: 17:53 BP 145 / 81; Pulse 66; Resp 16; Temp 98.2; Pulse Ox 100% ; Weight 84.82 kg; sv 18:51 BP 140 / 79; Pulse 67; Resp 18; Pulse Ox 99% on R/A; Pain 0/10; em 20:00 BP 135 / 70; Pulse 79; Resp 17; Temp 98.1; Pulse Ox 98% on R/A; rr5 21:00 BP 124 / 79; Pulse 64; Resp 17; Pulse Ox 97% ; rr5 21:49 BP 122 / 61; Pulse 70; Resp 19; Temp 98; Pulse Ox 99% on R/A; rr5 ED Course: 17:41 Patient arrived in ED. mr 17:41 Tima Estrada DO is Private Physician. mr 17:45 Jorge Llanos PA is PHCP. cp 17:45 Gurinder Fuentes MD is Attending Physician. cp 17:46 Chadd Pathak LVN is Primary Nurse. em 17:50 Patient has correct armband on for positive identification. Placed in gown. Bed in low em position. Call light in reach. Side rails up X2. Adult w/ patient. Pulse ox on. NIBP on. 17:53 Triage completed. sv 17:54 Arm band placed on. sv 18:15 Inserted saline lock: 22 gauge in left antecubital area, using aseptic technique. Blood em collected. 18:15 Initial lab(s) drawn, by me, sent to lab. First set of blood cultures drawn by me. em 18:37 EKG done, by ED staff, reviewed by Gurinder Fuentes MD. ms 18:42 XRAY Chest (1 view) In Process Unspecified. EDMS 18:[address] vm2 19:00 CT Head Brain wo Cont In Process Unspecified. EDMS 20:26 Fei Jeffers MD is Hospitalizing Provider. cp 21:20 Sol cath inserted, using sterile technique, 16 Fr., by me, balloon inflated, returned rr5 clear yellow urine. Patient tolerated well. 21:25 Repeat lab(s) drawn. by me, sent to lab. rr5 22:16 No provider procedures requiring assistance completed. Patient admitted, IV remains in rr5 place. intact, No redness/swelling at site. Administered Medications: 18:37 Drug: Zofran 4 mg Route: IVP; Site: left antecubital; iw 19:40 Follow up: Response: No adverse reaction rr5 18:40 Drug: NS 0.9% 1000 ml Route: IV; Rate: 1 bolus; Site: left antecubital; iw 19:45 Follow up: Response: No adverse reaction; IV Status: Completed infusion; IV Intake: rr5 1000ml 19:50 Follow up: Response: No adverse reaction; IV Status: Completed infusion; IV Intake: rr5 1000ml 18:41 Drug: ProTONIX 40 mg Route: IVP; Site: left antecubital; iw 19:40 Follow up: Response: No adverse reaction rr5 19:40 Drug: Insulin Regular Human 10 units {Co-Signature: thierry (Ar Lopez).} Route: IVP; rr5 Site: left antecubital; 20:40 Follow up: Response: No adverse reaction rr5 19:44 Drug: NS 0.9% (30 ml/kg) 30 ml/kg Route: IV; Rate: bolus; Site: left forearm; rr5 21:40 Follow up: Response: No adverse reaction; IV Status: Completed infusion; IV Intake: rr5 1550ml ; lie infused seperate order. 19:55 CANCELLED (Physician Discretion): Lactulose 20 grams 30 ml PO once cp 20:00 Drug: Albuterol 2.5 mg Route: Inhalation; rr5 20:05 Drug: Lactulose 30 grams Volume: 45 ml; Route: PO; rr5 21:10 Follow up: Response: No adverse reaction rr5 20:15 Drug: Kayexalate 30 grams Route: PO; rr5 21:15 Follow up: Response: No adverse reaction rr5 20:20 Drug: Albuterol 2.5 mg Route: Inhalation; rr5 20:40 Follow up: Response: No adverse reaction rr5 20:39 Not Given (Other Intervention Used): NS 0.9% 1000 ml IV at 1 bolus Per protocol; 1000 rr5 mL bolus 21:20 Drug: Lasix 20 mg Route: IVP; Site: left antecubital; rr5 22:09 Follow up: Response: No adverse reaction rr5 22:14 Drug: Insulin Regular Human 10 units {Co-Signature: thierry (Ar Lopez).} {Note: cbg 311 rr5 mg/dl.} Route: IVP; Site: left antecubital; 22:32 Follow up: Response: No adverse reaction rr5 Point of Care Testing: Blood Glucose: 17:56 Blood Glucose: 382 mg/dL; em Ranges: Intake: 19:45 IV: 1000ml; Total: 1000ml. rr5 21:40 IV: 1550ml; Total: 2550ml. rr5 Outcome: 20:27 Decision to Hospitalize by Provider. cp 22:16 Admitted to Tele accompanied by tech, via stretcher, room 412, with chart, Report rr5 called to [facility] 22:16 Condition: stable 22:16 Instructed on the need for admit. 22:27 Patient left the ED. rr5 Signatures: Dispatcher [employer] Nissa Neff RN JADA Kapadia, Melba mr Lawson, Chadd, PILOT CAPTAIN PILOT CAPTAIN em Ramona Cueto RN RN iw Villarreal, Maria ms Page, Corey, PA PA cp McGuire, Victoria vm2 Roque, Raymond, RN RN rr5 Ar Lopez Corrections: (The following items were deleted from the chart) 23:42 19:50 Response: No adverse reaction; IV Status: Completed infusion; IV Intake: 1000ml rr5 rr5
--- NOTE | 2019-07-18 20:28 | EDPHYS ---
Physician Documentation [facility] Name: Janusz Morris Jr Age: 54 yrs Sex: Male : 1965 Arrival Date: 07/18/2019 Time: 17:41 Bed 17 Private MD: Sean [facility] ED Physician Gurinder Fuentes HPI: 07/18 18:05 This 54 yrs old Male presents to ER via Wheelchair with complaints of cp Abdominal Pain, Vomiting. 18:05 The patient presents with vomiting. cp 18:05 The patient presents with confusion. Onset: The symptoms/episode began/occurred 4 cp day(s) ago. Possible causes: hyperglycemia and cirrhosis. Associated signs and symptoms: Pertinent positives: vomiting, Pertinent negatives: chest pain, diarrhea, headache, fever. Current symptoms: In the emergency department the patient's symptoms are unchanged from the initial presentation, despite home interventions. Historical: - Allergies: 17:53 No Known Allergies; sv - Home Meds: 21:35 atorvastatin 40 mg Oral tab 1 tab once daily [Active]; furosemide 20 mg Oral tab 1 tab rr5 once daily [Active]; glipizide 10 mg Oral tab 1 tab once daily [Active]; metformin 1,000 mg Oral tab 1 tab 2 times per day [Active]; lactulose 10 gram/15 mL Oral soln 60 mL 3 times per day [Active]; pantoprazole 40 mg Oral TbEC 1 tab 2 times per day [Active]; propranolol 20 mg Oral tab 1 tab twice a day [Active]; spironolactone 50 mg Oral tab 1 tab once daily [Active]; - PMHx: 17:53 Alcoholism; Cirrhosis; Diabetes - NIDDM; esophageal varices; GI Bleed; Hypertension; sv - Immunization history:: Adult Immunizations up to date. - Social history:: Smoking status: unknown. - Ebola Screening: : Patient negative for fever greater than or equal to 101.5 degrees Fahrenheit, and additional compatible Ebola Virus Disease symptoms Patient denies exposure to infectious person Patient denies travel to an Ebola-affected area in the 21 days before illness onset No symptoms or risks identified at this time. ROS: 18:10 Constitutional: Negative for fever. cp 18:10 Abdomen/GI: Positive for vomiting. 18:10 Neuro: Positive for altered mental status. 18:10 Endocrine: Positive for hyperglycemia. 18:10 Unable to obtain ROS due to altered mental status. Exam: 18:20 Head/Face: Normocephalic, atraumatic. cp 18:20 Constitutional: The patient appears in no acute distress, non-diaphoretic, non-toxic, well developed, well nourished. 18:20 Eyes: Periorbital structures: appear normal, Pupils: equal, round, and reactive to light and accomodation, Conjunctiva: normal, no exudate, no injection, Sclera: icterus, is present, Lids and lashes: appear normal, bilaterally. 18:20 ENT: External ear(s): are unremarkable, Ear canal(s): are normal, clear, TM's: bulging, is not appreciated, bilaterally, dullness, bilaterally, erythema, is not appreciated, bilaterally, Nose: is normal, Mouth: Lips: dry, Oral mucosa: pink and intact, Posterior pharynx: Airway: no evidence of obstruction, patent. 18:20 Neck: ROM/movement: is normal, is supple, without pain, no range of motions limitations, no meningismus, no nuchal rigidity. 18:20 Chest/axilla: Inspection: normal, Palpation: is normal, no crepitus, no tenderness. 18:20 Cardiovascular: Rate: normal, Rhythm: regular, Heart sounds: murmur, not appreciated, Edema: is not appreciated, JVD: is not appreciated. 18:20 Respiratory: the patient does not display signs of respiratory distress, Respirations: cp normal, no use of accessory muscles, no retractions, no splinting, no tachypnea, labored breathing, is not present, Breath sounds: are clear throughout, no decreased breath sounds, no stridor, no wheezing. 18:20 Abdomen/GI: Inspection: abdomen appears normal, Bowel sounds: active, all quadrants, Palpation: abdomen is soft and non-tender, in all quadrants, rebound tenderness, is not appreciated, voluntary guarding, is not appreciated. 18:20 Back: pain, is absent. 18:20 Skin: Appearance: Color: jaundiced, cellulitis, is not appreciated, no rash present. 18:20 Neuro: Orientation: to person, situation, Not oriented to time, Mentation: able to follow commands, slow to respond, sleepy, Motor: moves all fours, strength is normal. 18:40 ECG was reviewed by the Attending Physician. cp Vital Signs: 17:53 BP 145 / 81; Pulse 66; Resp 16; Temp 98.2; Pulse Ox 100% ; Weight 84.82 kg; sv 18:51 BP 140 / 79; Pulse 67; Resp 18; Pulse Ox 99% on R/A; Pain 0/10; em 20:00 BP 135 / 70; Pulse 79; Resp 17; Temp 98.1; Pulse Ox 98% on R/A; rr5 21:00 BP 124 / 79; Pulse 64; Resp 17; Pulse Ox 97% ; rr5 21:49 BP 122 / 61; Pulse 70; Resp 19; Temp 98; Pulse Ox 99% on R/A; rr5 MDM: 17:45 Patient medically screened. cp 18:00 Differential Diagnosis: CVA, electrolyte abnormality, hypoglycemia, meningitis, cp overdose, pneumonia, seizure, sepsis, UTI, volume depletion. 20:30 Data reviewed: vital signs, nurses notes, lab test result(s), EKG, radiologic studies, cp CT scan, plain films, and as a result, I will admit patient. 20:30 Test interpretation: by ED physician or midlevel provider: ECG, plain radiologic cp studies. Counseling: I had a detailed discussion with the patient and/or guardian regarding: the historical points, exam findings, and any diagnostic results supporting the discharge/admit diagnosis, lab results, radiology results. Physician consultation: Fei Jeffers MD was called at 20:25, was contacted at 20:25, regarding admission, to the medical/surgical unit. patient's condition. 07/18 17:58 Order name: Basic Metabolic Panel; Complete Time: 19:51 cp 07/18 19:52 Interpretation: Normal except: NA 132; K 5.8; GLUC 391; BUN 30; CRE 2.03; GFR 34. cp 07/18 17:58 Order name: CBC with Diff; Complete Time: 01:49 cp 07/18 19:09 Interpretation: Normal except: HGB 10.4; HCT 32.3; MCV 64.1; MCH 20.6; RDW 18.2; JOYCE% cp 75.7; LYM% 14.9. 07/18 17:58 Order name: LFT's; Complete Time: 19:51 cp 07/18 19:52 Interpretation: Normal except: AST 41; ALK 246; BILIT 1.1; BILID 0.4; TP 9.0; GLOB 5.4; cp A/G 0.7. 07/18 17:58 Order name: Magnesium; Complete Time: 19:51 cp 07/18 17:58 Order name: PT-INR; Complete Time: 19:09 cp 07/18 17:58 Order name: Troponin (emerg Dept Use Only); Complete Time: 19:51 cp 07/18 17:58 Order name: AMMONIA; Complete Time: 18:54 cp 07/18 18:54 Interpretation: Abnormal: KELLIE 123. cp 07/18 17:58 Order name: UA MICROSCOPIC; Complete Time: 01:49 cp 07/18 17:58 Order name: Ptt, Activated; Complete Time: 19:09 cp 07/18 17:58 Order name: Lipase; Complete Time: 19:51 cp 07/18 17:58 Order name: Procalcitonin; Complete Time: 19:51 cp 07/18 17:58 Order name: Lactate; Complete Time: 19:09 cp 07/18 17:58 Order name: Blood Culture Adult (2) cp 07/18 18:06 Order name: Glucose, Ancillary Testing; Complete Time: 18:54 EDMS 07/18 18:54 Interpretation: Abnormal: GLUC,ANCIL 382. cp 07/18 17:58 Order name: XRAY Chest (1 view); Complete Time: 19:51 cp 07/18 17:58 Order name: CT Head Brain wo Cont; Complete Time: 19:51 cp 07/18 20:46 Order name: CBC with Automated Diff EDMS 07/18 20:46 Order name: CBC with Automated Diff; Complete Time: 18:27 EDMS 07/18 20:46 Order name: Comprehensive Metabolic Panel EDMS 07/18 20:46 Order name: Comprehensive Metabolic Panel; Complete Time: 18:27 EDMS 07/18 20:46 Order name: Protime (+INR) EDMS 07/18 20:46 Order name: Protime (+INR); Complete Time: 18:27 EDMS 07/18 20:46 Order name: PTT, Activated Partial Thromb EDMS 07/18 20:46 Order name: PTT, Activated Partial Thromb; Complete Time: 18:27 EDMS 07/18 21:10 Order name: CBC Smear Scan; Complete Time: 01:49 EDMS 07/18 21:35 Order name: Urine Dipstick--Ancillary (enter results) ar5 07/18 21:56 Order name: Lactate Sepsis 2 HR Follow-up; Complete Time: 01:49 EDMS 07/18 22:01 Order name: Urine Dipstick-Ancillary; Complete Time: 01:49 EDMS 07/18 22:12 Order name: Glucose, Ancillary Testing; Complete Time: 01:49 EDMS 07/18 17:58 Order name: EKG; Complete Time: 17:59 cp 07/18 17:58 Order name: Cardiac monitoring; Complete Time: 18:28 cp 07/18 17:58 Order name: EKG - Nurse/Tech; Complete Time: 18:37 cp 07/18 17:58 Order name: IV Saline Lock; Complete Time: 18:28 cp 07/18 17:58 Order name: Labs collected and sent; Complete Time: 18:28 cp 07/18 17:58 Order name: O2 Per Protocol; Complete Time: 18:28 cp 07/18 17:58 Order name: O2 Sat Monitoring; Complete Time: 18:28 cp 07/18 19:54 Order name: Swallow Screen; Complete Time: 20:36 cp 07/18 20:26 Order name: Sol; Complete Time: 21:20 cp 07/18 20:46 Order name: CONS Pharmacy Consult EDMS 07/18 22:07 Order name: Glucose Level; Complete Time: 22:07 rr5 EC:40 Rate is 67 beats/min. Rhythm is regular. MN interval is normal. QRS interval is normal. cp QT interval is normal. T waves are Flattened in lead aVL. Interpreted by me. Reviewed by me. Administered Medications: 18:37 Drug: Zofran 4 mg Route: IVP; Site: left antecubital; iw 19:40 Follow up: Response: No adverse reaction rr5 18:40 Drug: NS 0.9% 1000 ml Route: IV; Rate: 1 bolus; Site: left antecubital; iw 19:45 Follow up: Response: No adverse reaction; IV Status: Completed infusion; IV Intake: rr5 1000ml 19:50 Follow up: Response: No adverse reaction; IV Status: Completed infusion; IV Intake: rr5 1000ml 18:41 Drug: ProTONIX 40 mg Route: IVP; Site: left antecubital; iw 19:40 Follow up: Response: No adverse reaction rr5 19:40 Drug: Insulin Regular Human 10 units {Co-Signature: (Insider Pagessy [employer] [facility]alo).} Route: IVP; rr5 Site: left antecubital; 20:40 Follow up: Response: No adverse reaction rr5 19:44 Drug: NS 0.9% (30 ml/kg) 30 ml/kg Route: IV; Rate: bolus; Site: left forearm; rr5 21:40 Follow up: Response: No adverse reaction; IV Status: Completed infusion; IV Intake: rr5 1550ml ; [facility] infused seperate order. 19:55 CANCELLED (Physician Discretion): Lactulose 20 grams 30 ml PO once cp 20:00 Drug: Albuterol 2.5 mg Route: Inhalation; rr5 20:05 Drug: Lactulose 30 grams Volume: 45 ml; Route: PO; rr5 21:10 Follow up: Response: No adverse reaction rr5 20:15 Drug: Kayexalate 30 grams Route: PO; rr5 21:15 Follow up: Response: No adverse reaction rr5 20:20 Drug: Albuterol 2.5 mg Route: Inhalation; rr5 20:40 Follow up: Response: No adverse reaction rr5 20:39 Not Given (Other Intervention Used): NS 0.9% 1000 ml IV at 1 bolus Per protocol; 1000 rr5 mL bolus 21:20 Drug: Lasix 20 mg Route: IVP; Site: left antecubital; rr5 22:09 Follow up: Response: No adverse reaction rr5 22:14 Drug: Insulin Regular Human 10 units {Co-Signature: (Insider Pagessy [place]).} {Note: cbg 311 rr5 mg/dl.} Route: IVP; Site: left antecubital; 22:32 Follow up: Response: No adverse reaction rr5 Point of Care Testing: Blood Glucose: 17:56 Blood Glucose: 382 mg/dL; em Ranges: Critical Glucose Levels:Adult <50 mg/dl or >400 mg/dl <40 mg/dl or >180 mg/dl Disposition: 22:30 Chart complete. cp Disposition: 07/18/19 20:27 Hospitalization ordered by Fei Jeffers for Inpatient Admission. Preliminary diagnosis are Encephalopathy, unspecified - hepatic, Hyperkalemia, Diabetes mellitus due to underlying condition with hyperglycemia. - Bed requested for Telemetry/MedSurg (Inpatient). - Status is Inpatient Admission. rr5 - Condition is Stable. - Problem is an acute exacerbation. - Symptoms have improved. UTI on Admission? No Addendum: 07/21/2019 08:28 Co-signature as Attending Physician, Gurinder Fuentes MD I agree with the assessment and k dr plan of care. Signatures: Dispatcher [employer] EDNissa Pearson RN RN Sheila Reese RN RN Gurinder Fuentes MD MD [facility] Chadd Pathak, COMPOUND MACHINE OPERATOR COMPOUND MACHINE OPERATOR em Ramona Cueto RN RN iw Jorge Llanos, PA PA cp Bhanu Pretty RN RN rr5 [facility] Corrections: (The following items were deleted from the chart) 07/18 19:55 19:54 Lactulose 20 grams 30 ml PO once ordered. cp cp 20:27 20:27 Hospitalization Ordered by Fei Jeffers MD for Inpatient Admission. Preliminary cp diagnosis is Encephalopathy, unspecified - hepatic; Hyperkalemia. Bed requested for Telemetry/MedSurg (Inpatient). Status is Inpatient Admission. Condition is Stable. Problem is an acute exacerbation. Symptoms have improved. UTI on Admission? No. cp 20:57 20:27 07/18/2019 20:27 Hospitalization Ordered by Fei Jeffers MD for Inpatient Admission. Preliminary diagnosis is Encephalopathy, unspecified - hepatic; Hyperkalemia; Diabetes mellitus due to underlying condition with hyperglycemia. Bed requested for Telemetry/MedSurg (Inpatient). Status is Inpatient Admission. Condition is Stable. Problem is an acute exacerbation. Symptoms have improved. UTI on Admission? No. cp 22:27 20:57 07/18/2019 20:27 Hospitalization Ordered by Fei Jeffers MD for Inpatient rr5 Admission. Preliminary diagnosis is Encephalopathy, unspecified - hepatic; Hyperkalemia; Diabetes mellitus due to underlying condition with hyperglycemia. Bed requested for Telemetry/MedSurg (Inpatient). Status is Inpatient Admission. Condition is Stable. Problem is an acute exacerbation. Symptoms have improved. UTI on Admission? No. mw
[2019-07-18] MEDS ORDERED: ACETAMINOPHEN 500 MG TAB PO PRN (20:40)
[2019-07-18] MEDS ORDERED: MORPHINE 2 MG/ML SYR IV PRN (20:40)
[2019-07-18] MEDS ORDERED: NA CHLORIDE 0.9% 1,000 ML IV SCH (21:00)
[2019-07-18] MEDS: LACTULOSE 20 GM/30 ML UCUP PO SCH (21:00)
[2019-07-18] MEDS ORDERED: FUROSEMIDE 20 MG/ 2ML VIAL ONE (21:06)
[2019-07-18 21:10] LABS: Anisocytosis 1+; Blood Morphology Comment NOTED (NOT SEEN); Hypochromasia 1+; Platelet Estimate ADEQ; Polychromasia SLIGHT; Urine White Blood Cell Casts OK
[2019-07-18 22:01] LABS: Urine Blood TRACE (NEG); Urine Glucose 2+ (NEG); Urine Protein NEGATIVE (NEG); Urine pH 5.5 (5.0-7.0)
[2019-07-18 22:57] VITALS: BMI 34.5
[2019-07-18 23:04] LABS: Urine Amorphous Sediment TRACE /HPF (NONE SEEN); Urine Bacteria <20 /HPF (NONE SEEN); Urine Culture Reflex Order NOT NEEDED; Urine RBC <5 /HPF (NONE SEEN)
[2019-07-19] MEDS: LACTULOSE 20 GM/30 ML UCUP PO SCH ×4 (03:09→20:27)
[2019-07-19] MEDS: PANTOPRAZOLE 40MG TABLET PO SCH ×2 (06:31→16:12)
[2019-07-19 06:51] LABS: Protime INR 1.05
[2019-07-19 07:00] LABS: Absolute Lymphocytes (CBC) 2.2 K/uL (0.7-4.9); Basophils % 1.1 % (0-1.3); Hematocrit 28.1 % (39.6-49.0); Lymphocytes % 25.1 % (15.3-44.8); MPV 9.2 fL (7.6-11.3); RBC Red Blood Cell Count 4.42 M/uL (4.33-5.43)
[2019-07-19 08:31] LABS: Albumin 2.9 g/dL (3.4-5.0); Potassium 4.5 mmol/L (3.5-5.1); Protein, Total 7.2 g/dL (6.4-8.2)
[2019-07-19] MEDS: carvediloL 6.25 MG TAB PO SCH ×2 (08:31→20:28)
--- NOTE | 2019-07-19 08:53 | P.HP ---
Certification for Inpatient Patient admitted to: Observation With expected LOS: <2 Midnights Patient will require the following post-hospital care: None Practitioner: I am a practitioner with admitting privileges, knowledge of patient current condition, hospital course, and medical plan of care. Services: Services provided to patient in accordance with Admission requirements found in Title 42 Section 412.3 of the Code of Federal Regulations Patient History Date of Service: 07/18/19 Reason for admission: Hepatic encephalopathy History of Present Illness: Patient is a 54-year-old gentleman with a history of cirrhosis of the liver. Patient had a TIPS procedure performed as patient had significant portal hypertension with esophageal varices bleeding in the past. Patient has been doing well until a month ago. At that time patient was admitted to our hospital and intubated. Patient was able to get extubated and discharged. Since discharge patient states he has been taking his medications as prescribed. He has only had 1 diarrhea every couple of days. He may need to increase his lactulose level or add rifaximin to his regimen. I do think he has been taking his medications regularly as he does have hyperkalemia most likely from Aldactone use. We would gently rehydrate patient and hold his Aldactone for now. We may need to decrease the dosage as well. This may worsens his portal pressures will need to closely monitor his potassium for now. Patient's alpha fetoprotein level has been negative. No evidence of hepatocellular carcinoma on image studies in the past. Patient will be admitted for observation as he is doing much better neurologically. Allergies No Known Allergies Allergy (Verified 07/18/19 22:58) Home Medications: Furosemide [Lasix] 20 mg PO DAILY 08/10/18 Pantoprazole [Protonix Tab*] 40 mg PO BID 08/10/18 Spironolactone [Aldactone*] 50 mg PO DAILY 08/10/18 Atorvastatin Calcium [Lipitor] 40 mg PO BEDTIME 05/23/19 Insulin Degludec [Tresiba Flextouch U-200] 36 units SQ SEECOM 06/13/19 Carvedilol 6.25 mg PO BID 07/18/19 - Past Medical/Surgical History Has patient received pneumonia vaccine in the past: No Diabetic: Yes -: Liver cirrhosis -: Esophageal varices -: GI bleed -: Insulin dependent Diabetes mellitus -: Hypertension -: Banding ligation -: Heart cath no stent - Family History Father Medical History: Heart disease, Lung disease, Diabetes Mother Medical History: Heart disease, Diabetes Sister Medical History: Diabetes - Social History Smoking Status: Never smoker Alcohol use: Yes CD- Drugs: No Caffeine use: Yes Place of Residence: Home Review of Systems 10-point ROS is otherwise unremarkable Physical Examination - Vital Signs Temperature: 98 F Blood Pressure: 151/74 Pulse: 65 Respirations: 16 Pulse Ox (%): 100 - Physical Exam General: Alert, In no apparent distress, Oriented x1 HEENT: Atraumatic, PERRLA, Mucous membr. moist/pink, EOMI, Sclerae nonicteric Neck: Supple, 2+ carotid pulse no bruit, No LAD, Without JVD or thyroid abnormality Respiratory: Clear to auscultation bilaterally, Normal air movement Cardiovascular: Regular rate/rhythm, Normal S1 S2, No murmurs Gastrointestinal: Normal bowel sounds, Soft and benign, No tenderness, Distended Musculoskeletal: No clubbing, No swelling, No tenderness Integumentary: No rashes Neurological: Normal gait, Normal speech, Normal tone, Sensation intact, Cranial nerves 3-12 intact, Normal affect, Abnormal strength Lymphatics: No axilla or inguinal lymphadenopathy - Studies Laboratory Data (last 24 hrs) 07/18/19 18:15: PT 12.4, INR 1.05, APTT 31.3 07/18/19 18:15: WBC 9.3, Hgb 10.4 L, Hct 32.3 L, Plt Count 153 07/18/19 18:15: Sodium 132 L, Potassium 5.8 H*, BUN 30 H, Creatinine 2.03 H, Glucose 391 H, Magnesium 2.3, Total Bilirubin 1.1 H, AST 41 H, ALT 41, Alkaline Phosphatase 246 H, Lipase 330 Assessment & Plan - Problems (Diagnosis) (1) Hepatic encephalopathy Current Visit: No Status: Acute (2) Liver cirrhosis Onset Date: 08/12/18 Current Visit: No Status: Chronic Qualifiers: Hepatic cirrhosis type: alcoholic cirrhosis Ascites presence: without ascites Qualified Code(s): K70.30 - Alcoholic cirrhosis of liver without ascites (3) Hepatitis C virus infection Current Visit: Yes Status: Chronic Qualifiers: Viral hepatitis chronicity: chronic (4) Acute kidney injury Current Visit: Yes Status: Acute (5) Hyperkalemia Current Visit: Yes Status: Acute (6) S/P TIPS (transjugular intrahepatic portosystemic shunt) Current Visit: Yes Status: Chronic (7) Diabetes mellitus Onset Date: 08/12/18 Current Visit: No Status: Chronic Qualifiers: Diabetes mellitus type: type 2 Diabetes mellitus penitentiary insulin use: without multimedia production assistant use Diabetes mellitus complication status: without complication Qualified Code(s): E11.9 - Type 2 diabetes mellitus without complications (8) Esophageal varices Onset Date: 08/12/18 Current Visit: No Status: Chronic Qualifiers: Esophageal varices type: unspecified type Esophageal varices bleeding: without bleeding Qualified Code(s): I85.00 - Esophageal varices without bleeding (9) HTN (hypertension) Current Visit: No Status: Chronic Qualifiers: Hypertension type: essential hypertension Qualified Code(s): I10 - Essential (primary) hypertension - Plan Plan: 1. Continue lactulose 2. Make sure patient is having 2-3 bowel movements daily 3. Recheck ammonia level 4. Hold Aldactone and gently hydrate 5. Recheck renal function 6. 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 Clinically patient appears to be doing better. He may be stable for discharge later today after evaluation by daytime hospitalist 8. PPI 9. DVT prophylaxis with SCDs Discharge Plan: Home Plan to discharge in: 48 Hours - Advance Directives Does patient have a Living Will: Yes Does patient have a Durable POA for Healthcare: Yes - Code Status/Comfort Care Code Status Assessed: Yes Code Status: Full Code Critical Care: No Time Spent Managing PTS Care (In Minutes): 45
[2019-07-19] MEDS ORDERED: PANTOPRAZOLE 40MG TABLET PO SCH (09:00)
[2019-07-19] MEDS ORDERED: Insulin Degludec [Tresiba Flextouch U-200] SQ SCH ×2 (09:00→20:30)
[2019-07-19 11:17] LABS: Anisocytosis 2+; Blood Morphology Comment NOTED (NOT SEEN); Hypochromasia 2+; Platelet Estimate DECR; Urine White Blood Cell Casts OK
--- NOTE | 2019-07-19 12:30 | EKG ---
Test Date: 2019-07-18 Test Time: 18:32:10 Crusher Feeder: DRAKE MEASUREMENT RESULTS: Intervals: Rate: 67 GA: 150 QRSD: 84 QT: 398 QTc: 420 [place]: P: 20 GA: 150 QRS: -11 T: 49 INTERPRETIVE STATEMENTS: Normal sinus rhythm Minimal voltage criteria for LVH, may be normal variant Borderline ECG Compared to ECG 06/12/2019 16:45:38 Left ventricular hypertrophy now present Electronically Signed On 07-19-19 12:29:05 CDT by Gunnar Talley
[2019-07-19] MEDS ORDERED: INSULIN -REGULAR HUMAN 50 UNIT/0.5 ML ML IV ONE (13:00)
--- NOTE | 2019-07-19 14:11 | P.PN ---
Subjective Date of Service: 07/19/19 Chief Complaint: Hepatic encephalopathy Subjective: No C/O voiced, Doing well Patient is currently awake and alert. The altered mental status has resolved. He reports to diarrheal bowel movement since this morning. He denies any abdominal pain or nausea or vomiting. Physical Examination - Vital Signs Temperature: 98.3 F Blood Pressure: 139/66 Pulse: 74 Respirations: 16 Pulse Ox (%): 100 - Physical Exam General: Alert, In no apparent distress, Oriented x3 HEENT: Mucous membr. moist/pink Neck: Supple, JVD not distended Respiratory: Clear to auscultation bilaterally, Normal air movement Cardiovascular: No edema, Regular rate/rhythm, Normal S1 S2, No murmurs Capillary refill: <2 Seconds Gastrointestinal: Normal bowel sounds, Soft and benign, Non-distended, No ascites Musculoskeletal: No swelling, No erythema Integumentary: No rashes Neurological: Normal speech, Normal strength at 5/5 x4 extr - Studies Laboratory Data (last 24 hrs) 07/18/19 18:15: PT 12.4, INR 1.05, APTT 31.3 07/18/19 18:15: WBC 9.3, Hgb 10.4 L, Hct 32.3 L, Plt Count 153 07/18/19 18:15: Sodium 132 L, Potassium 5.8 H*, BUN 30 H, Creatinine 2.03 H, Glucose 391 H, Magnesium 2.3, Total Bilirubin 1.1 H, AST 41 H, ALT 41, Alkaline Phosphatase 246 H, Lipase 330 Assessment And Plan - Current Problems (Diagnosis) (1) Hepatic encephalopathy Current Visit: No Status: Acute (2) Diabetes mellitus Onset Date: 08/12/18 Current Visit: No Status: Chronic Qualifiers: Diabetes mellitus type: type 2 Diabetes mellitus terminal system operator insulin use: without alf use Diabetes mellitus complication status: without complication Qualified Code(s): E11.9 - Type 2 diabetes mellitus without complications (3) HTN (hypertension) Current Visit: No Status: Chronic Qualifiers: Hypertension type: essential hypertension Qualified Code(s): I10 - Essential (primary) hypertension (4) Liver cirrhosis Onset Date: 08/12/18 Current Visit: No Status: Chronic Qualifiers: Hepatic cirrhosis type: alcoholic cirrhosis Ascites presence: without ascites Qualified Code(s): K70.30 - Alcoholic cirrhosis of liver without ascites (5) Acute kidney injury Current Visit: Yes Status: Acute (6) Esophageal varices Onset Date: 08/12/18 Current Visit: No Status: Chronic Qualifiers: Esophageal varices type: unspecified type Esophageal varices bleeding: without bleeding Qualified Code(s): I85.00 - Esophageal varices without bleeding - Plan Patient mental status has responded to oral lactulose. Will decrease lactulose to 30 ml t.i.d. for a target 2-3 loose bowel movements per day. He has not been able to afford Rifaximin. Continue current dose of Aldactone. Serum creatinine has trended down. Continue daily Lasix maintainance dose Will manage hyperglycemia with insulin sliding scale. Continue Insulin Degludec. Check ammonia level in am. Monitor mental status and discharge in the a.m. if patient remains lucid.
[2019-07-19] MEDS ORDERED: D50W 25 GM/50 ML SYRINGE/VIAL IV PRN ×2 (14:17→22:09)
[2019-07-19] MEDS ORDERED: GLUCAGON 1 MG/VIAL IM PRN ×2 (14:17→22:09)
[2019-07-19] MEDS: ONDANSETRON 4 MG/2 ML VIAL IV PRN (14:37)
[2019-07-19] MEDS: INSULIN -REGULAR HUMAN 50 UNIT/0.5 ML ML SQ SCH ×2 (16:12→21:00)
[2019-07-19] MEDS ORDERED: ATORVASTATIN 40 MG TAB PO SCH (21:00)
[2019-07-19 23:26] VITALS: O2SAT 100
[2019-07-20] MEDS: ONDANSETRON 4 MG/2 ML VIAL IV PRN (00:24)
[2019-07-20] MEDS: LACTULOSE 20 GM/30 ML UCUP PO SCH ×2 (02:19→08:04)
[2019-07-20 06:33] LABS: Absolute Lymphocytes (CBC) 1.5 K/uL (0.7-4.9); Hematocrit 26.3 % (39.6-49.0); Lymphocytes % 25.2 % (15.3-44.8); MPV 8.7 fL (7.6-11.3); RBC Red Blood Cell Count 4.15 M/uL (4.33-5.43)
[2019-07-20 06:42] LABS: Magnesium 2.1 mg/dL (1.8-2.4); Phosphorus 2.7 mg/dL (2.5-4.9); Potassium 3.8 mmol/L (3.5-5.1)
[2019-07-20] MEDS: PANTOPRAZOLE 40MG TABLET PO SCH (08:03)
[2019-07-20] MEDS: carvediloL 6.25 MG TAB PO SCH (08:04)
[2019-07-20] MEDS: INSULIN -REGULAR HUMAN 50 UNIT/0.5 ML ML SQ SCH ×2 (08:10→11:56)
[2019-07-20] MEDS ORDERED: FUROSEMIDE 20 MG TABLET PO SCH (09:00)
[2019-07-20] MEDS ORDERED: SPIRONOLACTONE 25 MG TABLET PO SCH (09:00)
[2019-07-20] MEDS ORDERED: LACTULOSE 20 GM/30 ML UCUP PO SCH (10:00)
--- NOTE | 2019-07-20 12:02 | P.DS ---
Admission Date: 07/18/19 Discharge Date: 07/20/19 Disposition: ROUTINE DISCHARGE Discharge Condition: FAIR Reason for Admission: Hepatic encephalopathy Consultations: None Procedures: None - Problems (1) Hepatic encephalopathy Current Visit: No Status: Acute (2) Diabetes mellitus Onset Date: 08/12/18 Current Visit: No Status: Chronic Qualifiers: Diabetes mellitus type: type 2 Diabetes mellitus halfway insulin use: without halfway use Diabetes mellitus complication status: without complication Qualified Code(s): E11.9 - Type 2 diabetes mellitus without complications (3) HTN (hypertension) Current Visit: No Status: Chronic Qualifiers: Hypertension type: essential hypertension Qualified Code(s): I10 - Essential (primary) hypertension (4) Liver cirrhosis Onset Date: 08/12/18 Current Visit: No Status: Chronic Qualifiers: Hepatic cirrhosis type: alcoholic cirrhosis Ascites presence: without ascites Qualified Code(s): K70.30 - Alcoholic cirrhosis of liver without ascites (5) Acute kidney injury Current Visit: Yes Status: Acute (6) Esophageal varices Onset Date: 08/12/18 Current Visit: No Status: Chronic Qualifiers: Esophageal varices type: unspecified type Esophageal varices bleeding: without bleeding Qualified Code(s): I85.00 - Esophageal varices without bleeding Brief History of Present Illness: 54-year-old gentleman with a history of liver cirrhosis, history of esophageal varices and s/p TIPS was brought to the emergency department due to altered mental status. Patient is on lactulose, Lasix and Aldactone for the liver disease. Family reports patient was having loose stool once in every 2 days instead of 2-3 times per day. His ammonia level in the ED was elevated to 123. Patient was hospitalized for further management of hepatic encephalopathy. Hospital Course: He was placed under observation on the medical floor. Was placed on lactulose 30 mL q.6 hrs. Patient had several loose bowel movements. His ammonia level improved along with his mental status. Noted patient blood sugar was elevated to the 400s. This improved to the 200s once his home dose Insulin Degludec was resumed. Patient mental status has improved and he is clinically stable. He is discharged with lactulose 30 mL b.i.d. Patient stated he has not been able to afford Rifaximin. Vital Signs/Physical Exam: Temp Pulse Resp BP Pulse Ox 98.0 F 64 16 151/70 H 100 07/20/19 08:00 07/20/19 08:04 07/20/19 08:00 07/20/19 08:04 07/20/19 08:00 General: Alert, In no apparent distress, Oriented x3 HEENT: Mucous membr. moist/pink Neck: Supple Respiratory: Clear to auscultation bilaterally, Normal air movement Cardiovascular: No edema, Regular rate/rhythm, Normal S1 S2 Gastrointestinal: Normal bowel sounds, Soft and benign, Non-distended, No ascites, No tenderness Musculoskeletal: No swelling, No erythema Integumentary: No rashes, No erythema Neurological: Normal speech, Normal strength at 5/5 x4 extr Laboratory Data at Discharge: WBC 6.0 K/uL (4.3-10.9) D 07/20/19 06:02 Hgb 8.4 g/dL (13.6-17.9) L 07/20/19 06:02 Hct 26.3 % (39.6-49.0) L 07/20/19 06:02 Plt Count 105 K/uL (152-406) L 07/20/19 06:02 PT 12.4 SECONDS (9.5-12.5) 07/19/19 06:27 INR 1.05 07/19/19 06:27 APTT 20.7 SECONDS (24.3-36.9) L 07/19/19 06:27 Sodium 139 mmol/L (136-145) 07/20/19 06:02 Potassium 3.8 mmol/L (3.5-5.1) 07/20/19 06:02 BUN 15 mg/dL (7-18) 07/20/19 06:02 Creatinine 1.40 mg/dL (0.55-1.3) H 07/20/19 06:02 Glucose 216 mg/dL (74-106) H 07/20/19 06:02 Phosphorus 2.7 mg/dL (2.5-4.9) 07/20/19 06:02 Magnesium 2.1 mg/dL (1.8-2.4) 07/20/19 06:02 Total Bilirubin 1.0 mg/dL (0.2-1.0) 07/19/19 08:04 AST 41 U/L (15-37) H 07/19/19 08:04 ALT 33 U/L (12-78) 07/19/19 08:04 Alkaline Phosphatase 178 U/L (45-117) H 07/19/19 08:04 Lipase 330 U/L (73-393) 07/18/19 18:15 Home Medications: Furosemide [Lasix] 20 mg PO DAILY 08/10/18 Pantoprazole [Protonix Tab*] 40 mg PO BID 08/10/18 Spironolactone [Aldactone*] 50 mg PO DAILY 08/10/18 Atorvastatin Calcium [Lipitor] 40 mg PO BEDTIME 05/23/19 Insulin Degludec [Tresiba Flextouch U-200] 36 units SQ BEDTIME 06/13/19 Carvedilol 6.25 mg PO BID 07/18/19 Insulin -Regular Human [Novolin -R*] See Protocol SQ ACHS 30 Days #1 vial Lactulose [Cephulac*] 30 ml PO BID 30 Days #1800 ucup 07/20/19 New Medications: Insulin -Regular Human [Novolin -R*] See Protocol SQ ACHS 30 Days #1 vial Lactulose [Cephulac*] 30 ml PO BID 30 Days #1800 ucup Patient Discharge Instructions: Follow up with PCP within 1 week. Diet: ADA Activity: Ad laquita Time spent managing pt's care (in minutes): 27
[2019-07-20 12:13] VITALS: BP 132/66; TEMP 98.1
[2019-07-20] MEDS ORDERED: INSULIN 70/30 100 UNITS/ML SQ ONE (22:09)
--- OUTSIDE RECORDS SUMMARY | 2019-08-03 11:41 | XMS REPORT ---
:1965 [facility] Address [address] [place] [address] [address] [place] [address] Care Team Providers Name Role Phone BRAVO ONEAL Unavailable Unavailable JANNET KASPER Unavailable Unavailable Problems This patient has no known problems. Allergies, Adverse Reactions, Alerts This patient has no known allergies or adverse reactions. Medications This patient has no known medications. Results Test Description Test Time Test Comments Text Results Atomic Results Result Comments OZ DAVILA, 2019-06-18 Reason for FINAL REPORT PATIENT ID: EXTENSIVE - ARTERIAL 16:43:00 Exam:->liver cancer [id number] Mesenteric angiogram and chemoembolization, 06/18/2019. History: HCC. Modality: Fluoroscopy. Sedation: Versed 1 mg and fentanyl 50 mcg was given intravenously for conscious sedation. Vital signs were monitored throughout the procedure by a nurse, and remained stable. Physician intra-service time was 60 minutes. Anesthesia: Two percent Lidocaine without epinephrine. Approach: Right common femoral artery. Estimated blood loss: < 5 cc. Specimen: None. medart operator: Samantha. Special Education Educational Assistant: Gaudencio. Fluoroscopy Time: 14.5 min. Dose (Ka,r): 1441 mGy. Technique: Informed written consent was obtained. Discussion of risks, benefits, and alternatives were made with the patient. The patient expressed understanding and agreed to proceed. All elements maximal sterile barrier technique was utilized for this procedure, including utilization of sterile scrub solution for skin prep, a large sterile sheet to cover the areas of the patient that were not prepped, and hand hygiene, mask, head covering, and sterile gown for performing radiologist and scrub technologist. The skin was anesthetized with lidocaine. The right common femoral artery was accessed using a 18-gauge singlewall needle and a 0.035 inch J-wire. A 5 Nigerien sheath was placed. Diagnostic mesenteric angiogram was performed to access vessel patency and exclude arterio-portal shunting. A 5 Nigerien Ramírez catheter which was used to select the SMA and celiac trunk for DSA runs. A 3 Nigerien microcatheter was advanced coaxially through the Ramírez catheter for selection of the right hepatic artery for DSA run, which demonstrates that the lesion is amenable for treatment. The microcatheter was used to further subselect the superior branch of the right hepatic artery that supply the superior hepatic lesion. 50 mg of doxorubicin loaded on Oncozene beads was administered before reflux was noted. Followup DSA injection was performed demonstrating stasis in the distal. The catheter was removed. Injection was performed through the right femoral sheath for a DSA run. The arteriotomy was closed and hemostasis was obtained with a Mynx closure device. Vital signs were monitored throughout the procedure by a nurse, and remained stable. The patient tolerated the procedure well and left the department in the same condition. FINDINGS: 1. SMA injection: SMA branches are patent without evidence of abnormal vascular blush. The superior mesenteric and portal vein are patent.2. Celiac injection: The splenic artery, common hepatic artery, left gastric artery, and gastroduodenal artery are patent with normal branching pattern. The splenic vein is patent. TIPS shunt is present which is patent. 3. Right hepatic artery injections: Mildly hypervascular 2.5 cm lesion is present in the hepatic dome, supplied by a superior branch of the right hepatic artery. Post embolization of this vessel, there is no further enhancement of the lesion with stasis noted within the supplying vessel.4. Right common femoral artery injection: Patent right femoral artery and normal sheath position. IMPRESSION: 1. Successful, uncomplicated mesenteric angiogram and right hepatic chemo-embolization, performed with conscious sedation.2. Successful hemostasis using closure device. Signed: Juarez Singh MDRepputnam county [facility] hospital Verified Date/Time: 06/18/2019 16:43:18 Reading Location: [place] [id number] Angio Body Reading Room REHENSIVE METABOLIC PANEL 2019-06-18 10:36:00 Test Item Value Reference Range Comments TOTAL PROTEIN (BEAKER) (test 6.5 gm/dL 6.0-8.3 pvgx=396) ALBUMIN (BEAKER) (test 3.0 g/dL 3.5-5.0 cedh=3247) ALKALINE PHOSPHATASE 203 U/L 40-150 (BEAKER) (test wpaj=098) BILIRUBIN TOTAL (BEAKER) 0.8 mg/dL 0.2-1.2 (test zqmh=701) SODIUM (BEAKER) (test 135 meq/L 136-145 vbus=724) POTASSIUM (BEAKER) (test 4.1 meq/L 3.5-5.1 etlw=126) CHLORIDE (BEAKER) (test 106 meq/L 98-107 fkzp=078) CO2 (BEAKER) (test mymi=117) 24 meq/L 22-29 BLOOD UREA NITROGEN (BEAKER) 15 mg/dL 7-21 (test eukv=927) CREATININE (BEAKER) (test 1.17 mg/dL 0.57-1.25 fxyj=798) GLUCOSE RANDOM (BEAKER) 221 mg/dL 70-105 (test jlgo=533) CALCIUM (BEAKER) (test 9.2 mg/dL 8.4-10.2 wqnb=318) AST (SGOT) (BEAKER) (test 78 U/L 5-34 bxpd=288) ALT (SGPT) (BEAKER) (test 50 U/L 6-55 bnzz=380) EGFR (BEAKER) (test 64 mL/min/1.73 sq m ESTIMATED GFR IS NOT hptf=3822) ACCURATE CREATININE CLEARANCE IN PREDICTING GLOMERULAR FILTRATION RATE. ESTIMATED GFR IS NOT APPLICABLE FOR DIALYSIS PATIENTS. PROTHROMBIN [id number] 10:19:00 Test Item Value Reference Range Comments PROTIME (BEAKER) (test spdn=635) 14.7 seconds 11.9-14.2 INR (BEAKER) (test bqhv=904) 1.2 <=5.9 Effective 02/19/2019: PT Reference Range ChangeNew: 11.9-14.2 Previous: 11.7- 14.7RECOMMENDED COUMADIN/WARFARIN INR THERAPY RANGESSTANDARD DOSE: 2.0-3.0 Includes: PROPHYLAXIS for venous thrombosis, systemic embolization; TREATMENT for venous thrombosis and/or pulmonary embolus.HIGH RISK: Target INR is2.5-3.5 for patients wiht mechanical heart valves.[id number] 10:19:00 Test Item Value Reference Range Comments PARTIAL THROMBOPLASTIN TIME (BEAKER) (test 35.6 seconds 22.5-36.0 chzl=057) CBC W/PLT COUNT & AUTO [id number] 10:16:00 Test Item Value Reference Range Comments WHITE BLOOD CELL COUNT (BEAKER) (test ypbn=400) 6.4 K/ L 3.5-10.5 RED BLOOD CELL COUNT (BEAKER) (test etbn=380) 3.84 M/ L 4.63-6.08 HEMOGLOBIN (BEAKER) (test lruo=692) 8.1 GM/DL 13.7-17.5 HEMATOCRIT (BEAKER) (test agdz=034) 27.4 % 40.1-51.0 MEAN CORPUSCULAR VOLUME (BEAKER) (test onga=253) 71.4 fL 79.0-92.2 MEAN CORPUSCULAR HEMOGLOBIN (BEAKER) (test 21.1 pg 25.7-32.2 mqpi=173) MEAN CORPUSCULAR HEMOGLOBIN CONC (BEAKER) (test 29.6 GM/DL 32.3-36.5 beac=067) RED CELL DISTRIBUTION WIDTH (BEAKER) (test 16.7 % 11.6-14.4 qogd=963) PLATELET COUNT (BEAKER) (test cclb=453) 130 K/CU MM 150-450 MEAN PLATELET VOLUME (BEAKER) (test dzrl=958) 9.6 fL 9.4-12.4 NUCLEATED RED BLOOD CELLS (BEAKER) (test 0 /100 WBC 0-0 osyz=732) NEUTROPHILS RELATIVE PERCENT (BEAKER) (test 62 % wjml=251) LYMPHOCYTES RELATIVE PERCENT (BEAKER) (test 20 % efyc=161) MONOCYTES RELATIVE PERCENT (BEAKER) (test 9 % smxs=830) EOSINOPHILS RELATIVE PERCENT (BEAKER) (test 8 % eywj=041) BASOPHILS RELATIVE PERCENT (BEAKER) (test 1 % sjdf=622) NEUTROPHILS ABSOLUTE COUNT (BEAKER) (test 3.97 K/ L 1.78-5.38 xlfc=539) LYMPHOCYTES ABSOLUTE COUNT (BEAKER) (test 1.27 K/ L 1.32-3.57 ksgf=013) MONOCYTES ABSOLUTE COUNT (BEAKER) (test 0.54 K/ L 0.30-0.82 zwju=312) EOSINOPHILS ABSOLUTE COUNT (BEAKER) (test 0.52 K/ L 0.04-0.54 dipj=842) BASOPHILS ABSOLUTE COUNT (BEAKER) (test 0.08 K/ L 0.01-0.08 ndom=635) IMMATURE GRANULOCYTES-RELATIVE PERCENT (BEAKER) 0 % 0-1 (test vlch=8251) MR, ABDOMEN, [id number] 17:19:00Include Abdominal VesselsFINAL REPORT MR of the abdomen dated April 08, 2019 COMPARISON: December 17, 2018Comment: Multiplanar T1 T2-weighted images of the abdomen, postcontrast axial and coronal T1-weighted images of the abdomen were obtained at. Liver is cirrhotic in appearance with irregular margins. Again noted an early enhancing lesion in the anterior right hepatic dome measuring 2.5 cm, previously 1.3 cm. This is delayed washout. This lesion suspicious for hepatocellular carcinoma. No other mass isnoted in the liver. A few small subcentimeter [...] dome suspicious for hepatocellular carcinoma. Signed: Terese [facility] Verified Date/Time: 04/09/2019 17:19:22 Reading Location: [address] Radiology Reading Room Electronically signed by: TERESE JORDAN M.D. on04/09/2019 05:19 PMALPHA FETOPROTEIN (AFP), TUMOR [id number] 14: 34:00 Test Item Value Reference Range Comments ALPHA-FETOPROTEIN (BEAKER) (test zjxc=7146) 32.9 ng/mL <10.0 COMPREHENSIVE METABOLIC [id number] 14:18:00 Test Item Value Reference Range Comments TOTAL PROTEIN (BEAKER) 8.2 gm/dL 6.0-8.3 (test emtc=982) ALBUMIN (BEAKER) (test 3.5 g/dL 3.5-5.0 zwrb=2139) ALKALINE PHOSPHATASE 216 U/L 40-150 (BEAKER) (test chcp=122) BILIRUBIN TOTAL (BEAKER) 1.4 mg/dL 0.2-1.2 (test vxkq=005) SODIUM (BEAKER) (test 132 meq/L 136-145 jpwl=136) POTASSIUM (BEAKER) (test 4.5 meq/L 3.5-5.1 jejc=179) CHLORIDE (BEAKER) (test 102 meq/L 98-107 ssjh=873) CO2 (BEAKER) (test 24 meq/L 22-29 etpm=302) BLOOD UREA NITROGEN 12 mg/dL 7-21 (BEAKER) (test svlz=499) CREATININE (BEAKER) (test 1.16 mg/dL 0.57-1.25 ipoo=241) GLUCOSE RANDOM (BEAKER) 249 mg/dL 70-105 (test cvxk=793) CALCIUM (BEAKER) (test 9.3 mg/dL 8.4-10.2 aqup=433) AST (SGOT) (BEAKER) (test 81 U/L 5-34 fpud=308) ALT (SGPT) (BEAKER) (test 40 U/L 6-55 yzwt=895) EGFR (BEAKER) (test 65 mL/min/1.73 sq m ESTIMATED GFR IS NOT vnpp=2554) ACCURATE CREATININE CLEARANCE IN PREDICTING GLOMERULAR FILTRATION RATE. ESTIMATED GFR IS NOT APPLICABLE FOR DIALYSIS PATIENTS. BILIRUBIN, [id number] 14:18:00 Test Item Value Reference Range Comments BILIRUBIN DIRECT (BEAKER) (test bmpo=011) 0.8 mg/dL 0.1-0.5 PROTHROMBIN [id number] 14:05:00 Test Item Value Reference Range Comments PROTIME (BEAKER) (test xvea=112) 14.9 seconds 11.9-14.2 INR (BEAKER) (test svpe=401) 1.2 <=5.9 Effective 02/19/2019: PT Reference Range ChangeNew: 11.9-14.2 Previous: 11.7- 14.7RECOMMENDED COUMADIN/WARFARIN INR THERAPY RANGESSTANDARD DOSE: 2.0-3.0 Includes: PROPHYLAXIS for venous thrombosis, systemic embolization; TREATMENT for venous thrombosis and/or pulmonary embolus.HIGH RISK: Target INR is2.5-3.5 for patients wiht mechanical heart valves.[id number] 13:58:00 Test Item Value Reference Range Comments POC-CREATININE (BEAKER) 0.9 mg/dL 0.6-1.3 TESTED AT [facility] [address] (test jyjl=0794) [facility] [address] POC-EGFR (BEAKER) (test 88 mL/min/1.73M2 wrvf=9871) CBC W/PLT COUNT & AUTO [id number] 13:56:00 Test Item Value Reference Range Comments WHITE BLOOD CELL COUNT (BEAKER) (test utxe=994) 5.9 K/ L 3.5-10.5 RED BLOOD CELL COUNT (BEAKER) (test soce=478) 4.75 M/ L 4.63-6.08 HEMOGLOBIN (BEAKER) (test vmjh=541) 10.7 GM/DL 13.7-17.5 HEMATOCRIT (BEAKER) (test lwjf=444) 35.5 % 40.1-51.0 MEAN CORPUSCULAR VOLUME (BEAKER) (test qbxz=507) 74.7 fL 79.0-92.2 MEAN CORPUSCULAR HEMOGLOBIN (BEAKER) (test 22.5 pg 25.7-32.2 omgh=218) MEAN CORPUSCULAR HEMOGLOBIN CONC (BEAKER) (test 30.1 GM/DL 32.3-36.5 roke=891) RED CELL DISTRIBUTION WIDTH (BEAKER) (test 18.6 % 11.6-14.4 jgoj=121) PLATELET COUNT (BEAKER) (test gzrv=741) 157 K/CU MM 150-450 MEAN PLATELET VOLUME (BEAKER) (test ljtr=515) 9.4 fL 9.4-12.4 NUCLEATED RED BLOOD CELLS (BEAKER) (test 0 /100 WBC 0-0 vxya=168) NEUTROPHILS RELATIVE PERCENT (BEAKER) (test 68 % knyf=715) LYMPHOCYTES RELATIVE PERCENT (BEAKER) (test 19 % aldm=696) MONOCYTES RELATIVE PERCENT (BEAKER) (test 9 % yscu=856) EOSINOPHILS RELATIVE PERCENT (BEAKER) (test 3 % ctpp=754) BASOPHILS RELATIVE PERCENT (BEAKER) (test 1 % ocqw=226) NEUTROPHILS ABSOLUTE COUNT (BEAKER) (test 4.03 K/ L 1.78-5.38 xwjy=578) LYMPHOCYTES ABSOLUTE COUNT (BEAKER) (test 1.13 K/ L 1.32-3.57 rhbw=260) MONOCYTES ABSOLUTE COUNT (BEAKER) (test 0.52 K/ L 0.30-0.82 jfxz=039) EOSINOPHILS ABSOLUTE COUNT (BEAKER) (test 0.20 K/ L 0.04-0.54 kxru=376) BASOPHILS ABSOLUTE COUNT (BEAKER) (test 0.05 K/ L 0.01-0.08 nhzv=514) IMMATURE GRANULOCYTES-RELATIVE PERCENT (BEAKER) 0 % 0-1 (test cbzu=4972) HOPE [id number] 08:05:00Reason for exam:->recurrent variceal bleedAddendum BeginsREPORT STATUS:A Addendum: Ultrasound was used to examine the veins the right neck. A patent internal jugular vein was identified and images the patent vein were saved on PACS. Real-time ultrasound guidance was then utilized for access of the internal jugular vein.Signed: Sola Camarillo MDReport Verified Date/Time: 01/20/2019 08:05:45 Reading Location: [address] Radiology Reading RoomAddendum EndsFINAL REPORT Procedure: [...] MDReport Verified Date/Time: 01/01/2019 17:21:51 Reading Location: [place] [address] Angio Body Reading Room POCT-GLUCOSE [id number] 08:02:00 Test Item Value Reference Range Comments POC-GLUCOSE METER (BEAKER) 187 mg/dL 70-110 TESTED AT [facility] [address] [facility] (test wipw=5300) [facility] [address] [id number] 04:17:00 Test Item Value Reference Range Comments PHOSPHORUS (BEAKER) (test eyki=395) 2.9 mg/dL 2.3-4.7 [id number] 04:17:00 Test Item Value Reference Range Comments MAGNESIUM (BEAKER) (test fpye=094) 1.9 mg/dL 1.6-2.6 COMPREHENSIVE METABOLIC [id number] 04:17:00 Test Item Value Reference Range Comments TOTAL PROTEIN (BEAKER) 7.6 gm/dL 6.0-8.3 (test pxhi=412) ALBUMIN (BEAKER) (test 3.3 g/dL 3.5-5.0 hqam=2906) ALKALINE PHOSPHATASE 138 U/L 40-150 (BEAKER) (test jhvm=628) BILIRUBIN TOTAL (BEAKER) 1.0 mg/dL 0.2-1.2 (test zpie=508) SODIUM (BEAKER) (test 136 meq/L 136-145 tyjd=829) POTASSIUM (BEAKER) (test 4.0 meq/L 3.5-5.1 imlv=852) CHLORIDE (BEAKER) (test 105 meq/L 98-107 zybb=417) CO2 (BEAKER) (test 22 meq/L 22-29 ymph=208) BLOOD UREA NITROGEN 14 mg/dL 7-21 (BEAKER) (test mjmf=020) CREATININE (BEAKER) (test 1.11 mg/dL 0.57-1.25 rovk=912) GLUCOSE RANDOM (BEAKER) 173 mg/dL 70-105 (test gtiq=694) CALCIUM (BEAKER) (test 9.1 mg/dL 8.4-10.2 scxv=041) AST (SGOT) (BEAKER) (test 89 U/L 5-34 arah=439) ALT (SGPT) (BEAKER) (test 41 U/L 6-55 kffj=698) EGFR (BEAKER) (test 69 mL/min/1.73 sq m ESTIMATED GFR IS NOT yfif=4444) ACCURATE CREATININE CLEARANCE IN PREDICTING GLOMERULAR FILTRATION RATE. ESTIMATED GFR IS NOT APPLICABLE FOR DIALYSIS PATIENTS. CBC W/PLT COUNT & AUTO [id number] 03:43:00 Test Item Value Reference Range Comments WHITE BLOOD CELL COUNT (BEAKER) (test oppz=318) 9.1 K/ L 3.5-10.5 RED BLOOD CELL COUNT (BEAKER) (test vnsg=023) 4.66 M/ L 4.63-6.08 HEMOGLOBIN (BEAKER) (test ydsq=615) 9.1 GM/DL 13.7-17.5 HEMATOCRIT (BEAKER) (test fqbf=683) 31.7 % 40.1-51.0 MEAN CORPUSCULAR VOLUME (BEAKER) (test ccwh=936) 68.0 fL 79.0-92.2 MEAN CORPUSCULAR HEMOGLOBIN (BEAKER) (test 19.5 pg 25.7-32.2 qrbu=283) MEAN CORPUSCULAR HEMOGLOBIN CONC (BEAKER) (test 28.7 GM/DL 32.3-36.5 pfqe=886) RED CELL DISTRIBUTION WIDTH (BEAKER) (test 20.4 % 11.6-14.4 dvpv=108) PLATELET COUNT (BEAKER) (test qobj=025) 174 K/CU MM 150-450 MEAN PLATELET VOLUME (BEAKER) (test guug=987) 10.6 fL 9.4-12.4 NUCLEATED RED BLOOD CELLS (BEAKER) (test 0 /100 WBC 0-0 lrge=485) NEUTROPHILS RELATIVE PERCENT (BEAKER) (test 74 % ehry=063) LYMPHOCYTES RELATIVE PERCENT (BEAKER) (test 16 % otcl=231) MONOCYTES RELATIVE PERCENT (BEAKER) (test 7 % hpyx=688) EOSINOPHILS RELATIVE PERCENT (BEAKER) (test 2 % ziex=940) BASOPHILS RELATIVE PERCENT (BEAKER) (test 1 % bjmc=552) NEUTROPHILS ABSOLUTE COUNT (BEAKER) (test 6.70 K/ L 1.78-5.38 rpll=241) LYMPHOCYTES ABSOLUTE COUNT (BEAKER) (test 1.42 K/ L 1.32-3.57 lhgg=334) MONOCYTES ABSOLUTE COUNT (BEAKER) (test 0.61 K/ L 0.30-0.82 ipoo=629) EOSINOPHILS ABSOLUTE COUNT (BEAKER) (test 0.20 K/ L 0.04-0.54 kwrf=573) BASOPHILS ABSOLUTE COUNT (BEAKER) (test 0.10 K/ L 0.01-0.08 isfb=540) IMMATURE GRANULOCYTES-RELATIVE PERCENT (BEAKER) 0 % 0-1 (test uifp=4003) POCT-GLUCOSE [id number] 23:33:00 Test Item Value Reference Range Comments POC-GLUCOSE METER (BEAKER) 230 mg/dL 70-110 TESTED AT [address] (test rmuo=8192) [place] [id number] POCT-GLUCOSE [id number] 16:25:00 Test Item Value Reference Range Comments POC-GLUCOSE METER (BEAKER) 182 mg/dL 70-110 TESTED AT [address] (test gdus=0074) [place] [address] POCT-GLUCOSE [id number] 14:02:00 Test Item Value Reference Range Comments POC-GLUCOSE METER (BEAKER) 146 mg/dL 70-110 TESTED AT [address] (test jkwy=5647) [place] [id number] POCT-GLUCOSE [id number] 07:49:00 Test Item Value Reference Range Comments POC-GLUCOSE METER (BEAKER) 143 mg/dL 70-110 TESTED AT [address] (test qaca=3161) [facility] [address] CALCIUM, [id number] 06:48:00 Test Item Value Reference Range Comments CALCIUM IONIZED (BEAKER) (test thrw=287) 0.81 mmol/L 1.12-1.27 PH, BLOOD (BEAKER) (test mcjw=4114) 7.50 CBC W/PLT COUNT & AUTO [id number] 06:41:00 Test Item Value Reference Range Comments WHITE BLOOD CELL COUNT 4.0 K/ L 3.5-10.5 (BEAKER) (test caop=468) RED BLOOD CELL COUNT (BEAKER) 4.14 M/ L 4.63-6.08 (test foby=942) HEMOGLOBIN (BEAKER) (test 8.2 GM/DL 13.7-17.5 iifd=134) HEMATOCRIT (BEAKER) (test 27.7 % 40.1-51.0 lawc=293) MEAN CORPUSCULAR VOLUME 66.9 fL 79.0-92.2 (BEAKER) (test xsro=811) MEAN CORPUSCULAR HEMOGLOBIN 19.8 pg 25.7-32.2 (BEAKER) (test jcbj=967) MEAN CORPUSCULAR HEMOGLOBIN 29.6 GM/DL 32.3-36.5 CONC (BEAKER) (test dhfv=086) RED CELL DISTRIBUTION WIDTH 20.3 % 11.6-14.4 (BEAKER) (test xtjj=253) PLATELET COUNT (BEAKER) (test 120 K/CU MM 150-450 guxu=320) MEAN PLATELET VOLUME (BEAKER) fL 9.4-12.4 Unable to report due to (test gbyu=849) abnormal Platelet population distribution. NUCLEATED RED BLOOD CELLS 0 /100 WBC 0-0 (BEAKER) (test chyu=368) NEUTROPHILS RELATIVE PERCENT 58 % (BEAKER) (test bbli=387) LYMPHOCYTES RELATIVE PERCENT 25 % (BEAKER) (test jpjc=086) MONOCYTES RELATIVE PERCENT 8 % (BEAKER) (test wmux=852) EOSINOPHILS RELATIVE PERCENT 7 % (BEAKER) (test sfnt=664) BASOPHILS RELATIVE PERCENT 1 % (BEAKER) (test nftl=783) NEUTROPHILS ABSOLUTE COUNT 2.36 K/ L 1.78-5.38 (BEAKER) (test skpc=964) LYMPHOCYTES ABSOLUTE COUNT 1.01 K/ L 1.32-3.57 (BEAKER) (test wkoa=513) MONOCYTES ABSOLUTE COUNT 0.33 K/ L 0.30-0.82 (BEAKER) (test qmyx=958) EOSINOPHILS ABSOLUTE COUNT 0.29 K/ L 0.04-0.54 (BEAKER) (test zljn=644) BASOPHILS ABSOLUTE COUNT 0.04 K/ L 0.01-0.08 (BEAKER) (test mdql=082) IMMATURE GRANULOCYTES-RELATIVE 0 % 0-1 PERCENT (BEAKER) (test ylek=9135) [id number] 06:02:00 Test Item Value Reference Range Comments PHOSPHORUS (BEAKER) (test etfn=507) 3.6 mg/dL 2.3-4.7 [id number] 06:02:00 Test Item Value Reference Range Comments MAGNESIUM (BEAKER) (test valu=762) 1.7 mg/dL 1.6-2.6 COMPREHENSIVE METABOLIC [id number] 06:02:00 Test Item Value Reference Range Comments TOTAL PROTEIN (BEAKER) 7.2 gm/dL 6.0-8.3 (test xqqu=680) ALBUMIN (BEAKER) (test 3.2 g/dL 3.5-5.0 ywfg=6179) ALKALINE PHOSPHATASE 157 U/L 40-150 (BEAKER) (test vhtl=399) BILIRUBIN TOTAL (BEAKER) 0.9 mg/dL 0.2-1.2 (test fcog=378) SODIUM (BEAKER) (test 137 meq/L 136-145 qzqx=768) POTASSIUM (BEAKER) (test 3.5 meq/L 3.5-5.1 gjir=797) CHLORIDE (BEAKER) (test 102 meq/L 98-107 aktc=320) CO2 (BEAKER) (test 30 meq/L 22-29 htnq=013) BLOOD UREA NITROGEN 18 mg/dL 7-21 (BEAKER) (test guck=481) CREATININE (BEAKER) (test 1.14 mg/dL 0.57-1.25 peui=221) GLUCOSE RANDOM (BEAKER) 130 mg/dL 70-105 (test hruv=130) CALCIUM (BEAKER) (test 8.6 mg/dL 8.4-10.2 lzed=673) AST (SGOT) (BEAKER) (test 53 U/L 5-34 paqg=782) ALT (SGPT) (BEAKER) (test 25 U/L 6-55 sedi=725) EGFR (BEAKER) (test 67 mL/min/1.73 sq m ESTIMATED GFR IS NOT mpni=7236) ACCURATE CREATININE CLEARANCE IN PREDICTING GLOMERULAR FILTRATION RATE. ESTIMATED GFR IS NOT APPLICABLE FOR DIALYSIS PATIENTS. POCT-GLUCOSE [id number] 23:13:00 Test Item Value Reference Range Comments POC-GLUCOSE METER (BEAKER) 332 mg/dL 70-110 Notified JADA NIX/TESTED AT [facility] (test mhqo=7679) [address] [place] [address] POCT-GLUCOSE [id number] 15:30:00 Test Item Value Reference Range Comments POC-GLUCOSE METER (BEAKER) 191 mg/dL 70-110 TESTED AT [facility] [address] (test byqb=3023) [facility] [address] CALCIUM, [id number] 06:07:00 Test Item Value Reference Range Comments CALCIUM IONIZED (BEAKER) (test okbd=450) 0.93 mmol/L 1.12-1.27 PH, BLOOD (BEAKER) (test ojvb=0089) 7.53 [id number] 06:06:00 Test Item Value Reference Range Comments PHOSPHORUS (BEAKER) (test pnvc=371) 3.1 mg/dL 2.3-4.7 [id number] 06:06:00 Test Item Value Reference Range Comments MAGNESIUM (BEAKER) (test tvtk=615) 1.8 mg/dL 1.6-2.6 BASIC METABOLIC [id number] 06:06:00 Test Item Value Reference Range Comments SODIUM (BEAKER) (test 138 meq/L 136-145 tpys=564) POTASSIUM (BEAKER) (test 3.8 meq/L 3.5-5.1 lgcr=285) CHLORIDE (BEAKER) (test 104 meq/L 98-107 sjac=247) CO2 (BEAKER) (test 27 meq/L 22-29 wwep=314) BLOOD UREA NITROGEN 19 mg/dL 7-21 (BEAKER) (test garq=997) CREATININE (BEAKER) (test 1.26 mg/dL 0.57-1.25 dzlp=323) GLUCOSE RANDOM (BEAKER) 191 mg/dL 70-105 (test upxi=107) CALCIUM (BEAKER) (test 8.9 mg/dL 8.4-10.2 hwlp=303) EGFR (BEAKER) (test 59 mL/min/1.73 sq m ESTIMATED GFR IS NOT yiwu=3536) ACCURATE CREATININE CLEARANCE IN PREDICTING GLOMERULAR FILTRATION RATE. ESTIMATED GFR IS NOT APPLICABLE FOR DIALYSIS PATIENTS. B-TYPE NATRIURETIC FACTOR (BNP)2018-12-31 05:58:00 Test Item Value Reference Range Comments B-TYPE NATRIURETIC PEPTIDE (BEAKER) (test ratp=878) 99 pg/mL 0-100 CBC W/PLT COUNT & AUTO [id number] 05:35:00 Test Item Value Reference Range Comments WHITE BLOOD CELL COUNT 5.2 K/ L 3.5-10.5 (BEAKER) (test ssfs=772) RED BLOOD CELL COUNT (BEAKER) 4.00 M/ L 4.63-6.08 (test oefp=351) HEMOGLOBIN (BEAKER) (test 7.7 GM/DL 13.7-17.5 pmrf=999) HEMATOCRIT (BEAKER) (test 27.2 % 40.1-51.0 nrrn=329) MEAN CORPUSCULAR VOLUME 68.0 fL 79.0-92.2 (BEAKER) (test tckm=149) MEAN CORPUSCULAR HEMOGLOBIN 19.3 pg 25.7-32.2 (BEAKER) (test rtrn=027) MEAN CORPUSCULAR HEMOGLOBIN 28.3 GM/DL 32.3-36.5 CONC (BEAKER) (test hlnw=683) RED CELL DISTRIBUTION WIDTH 20.3 % 11.6-14.4 (BEAKER) (test hoye=523) PLATELET COUNT (BEAKER) (test 107 K/CU MM 150-450 lrnp=969) MEAN PLATELET VOLUME (BEAKER) fL 9.4-12.4 Unable to report due to (test ghat=655) abnormal Platelet population distribution. NUCLEATED RED BLOOD CELLS 0 /100 WBC 0-0 (BEAKER) (test etdp=323) NEUTROPHILS RELATIVE PERCENT 67 % (BEAKER) (test wice=438) LYMPHOCYTES RELATIVE PERCENT 19 % (BEAKER) (test ritz=066) MONOCYTES RELATIVE PERCENT 8 % (BEAKER) (test ffim=851) EOSINOPHILS RELATIVE PERCENT 5 % (BEAKER) (test yygq=824) BASOPHILS RELATIVE PERCENT 1 % (BEAKER) (test dwxs=349) NEUTROPHILS ABSOLUTE COUNT 3.47 K/ L 1.78-5.38 (BEAKER) (test lhzv=926) LYMPHOCYTES ABSOLUTE COUNT 0.99 K/ L 1.32-3.57 (BEAKER) (test qubg=615) MONOCYTES ABSOLUTE COUNT 0.40 K/ L 0.30-0.82 (BEAKER) (test ktey=575) EOSINOPHILS ABSOLUTE COUNT 0.24 K/ L 0.04-0.54 (BEAKER) (test mgea=520) BASOPHILS ABSOLUTE COUNT 0.06 K/ L 0.01-0.08 (BEAKER) (test yabi=855) IMMATURE GRANULOCYTES-RELATIVE 0 % 0-1 PERCENT (BEAKER) (test jawo=0270) POCT-GLUCOSE [id number] 21:49:00 Test Item Value Reference Range Comments POC-GLUCOSE METER (BEAKER) 291 mg/dL 70-110 TESTED AT [address] (test meny=1411) [place] [address] POCT-GLUCOSE [id number] 17:31:00 Test Item Value Reference Range Comments POC-GLUCOSE METER (BEAKER) 247 mg/dL 70-110 TESTED AT [address] (test pqvw=8070) [place] [address] BONE AND/OR JOINT IMAGING, WHOLE [id number] 16:47:00FINAL REPORT PROCEDURE: BONE SCAN, WHOLE BODY CPT CODE: [id number] INDICATION: Hepatocellular carcinoma, preoperative evaluation for liver [...] I, and chest CT. Signed: Calderon Gordillo MDReport Verified Date/ Time: 12/30/2018 16:47:37 Reading Location: [address] CT, CHEST, WITHOUT [id number] 12:26:00FINAL REPORT CT Chest without contrast History: [...] MDReport Verified Date/Time: 12/30/2018 12:26:39 Reading Location: [facility] Diagnostic Imaging Reading Room - [place] [id number] POCT-GLUCOSE [id number] 11:39:00 Test Item Value Reference Range Comments POC-GLUCOSE METER (BEAKER) 250 mg/dL 70-110 TESTED AT [address] (test sxbj=1802) [facility] [id number] POCT-GLUCOSE [id number] 07:43:00 Test Item Value Reference Range Comments POC-GLUCOSE METER (BEAKER) 228 mg/dL 70-110 TESTED AT [address] (test fduw=0893) [facility] [address] CALCIUM, [id number] 07:32:00 Test Item Value Reference Range Comments CALCIUM IONIZED (BEAKER) (test aslo=181) 0.97 mmol/L 1.12-1.27 PH, BLOOD (BEAKER) (test qqkt=5910) 7.46 [id number] 06:46:00 Test Item Value Reference Range Comments PHOSPHORUS (BEAKER) (test qsrt=269) 3.5 mg/dL 2.3-4.7 [id number] 06:46:00 Test Item Value Reference Range Comments MAGNESIUM (BEAKER) (test sutf=479) 1.8 mg/dL 1.6-2.6 COMPREHENSIVE METABOLIC [id number] 06:46:00 Test Item Value Reference Range Comments TOTAL PROTEIN (BEAKER) 7.2 gm/dL 6.0-8.3 (test rvoi=028) ALBUMIN (BEAKER) (test 3.3 g/dL 3.5-5.0 divi=0018) ALKALINE PHOSPHATASE 137 U/L 40-150 (BEAKER) (test zslf=952) BILIRUBIN TOTAL (BEAKER) 0.8 mg/dL 0.2-1.2 (test iazb=500) SODIUM (BEAKER) (test 136 meq/L 136-145 ekhe=183) POTASSIUM (BEAKER) (test 3.7 meq/L 3.5-5.1 qfmf=853) CHLORIDE (BEAKER) (test 102 meq/L 98-107 motg=772) CO2 (BEAKER) (test 25 meq/L 22-29 bokd=949) BLOOD UREA NITROGEN 14 mg/dL 7-21 (BEAKER) (test rdtj=817) CREATININE (BEAKER) (test 1.06 mg/dL 0.57-1.25 hkvb=754) GLUCOSE RANDOM (BEAKER) 154 mg/dL 70-105 (test sdeu=380) CALCIUM (BEAKER) (test 8.8 mg/dL 8.4-10.2 nhtk=743) AST (SGOT) (BEAKER) (test 55 U/L 5-34 xrsq=195) ALT (SGPT) (BEAKER) (test 24 U/L 6-55 qmuv=862) EGFR (BEAKER) (test 73 mL/min/1.73 sq m ESTIMATED GFR IS NOT hcbs=1913) ACCURATE CREATININE CLEARANCE IN PREDICTING GLOMERULAR FILTRATION RATE. ESTIMATED GFR IS NOT APPLICABLE FOR DIALYSIS PATIENTS. CBC W/PLT COUNT & AUTO [id number] 06:20:00 Test Item Value Reference Range Comments WHITE BLOOD CELL COUNT 5.1 K/ L 3.5-10.5 (BEAKER) (test ofgr=937) RED BLOOD CELL COUNT (BEAKER) 4.24 M/ L 4.63-6.08 (test lras=371) HEMOGLOBIN (BEAKER) (test 8.4 GM/DL 13.7-17.5 cylv=117) HEMATOCRIT (BEAKER) (test 28.7 % 40.1-51.0 uyua=856) MEAN CORPUSCULAR VOLUME 67.7 fL 79.0-92.2 (BEAKER) (test wote=092) MEAN CORPUSCULAR HEMOGLOBIN 19.8 pg 25.7-32.2 (BEAKER) (test hpid=989) MEAN CORPUSCULAR HEMOGLOBIN 29.3 GM/DL 32.3-36.5 CONC (BEAKER) (test edgr=360) RED CELL DISTRIBUTION WIDTH 20.7 % 11.6-14.4 (BEAKER) (test ujzl=528) PLATELET COUNT (BEAKER) (test 121 K/CU MM 150-450 ertm=212) MEAN PLATELET VOLUME (BEAKER) fL 9.4-12.4 Unable to report due to (test znmp=337) abnormal Platelet population distribution. NUCLEATED RED BLOOD CELLS 0 /100 WBC 0-0 (BEAKER) (test hrec=388) NEUTROPHILS RELATIVE PERCENT 65 % (BEAKER) (test rqvz=136) LYMPHOCYTES RELATIVE PERCENT 20 % (BEAKER) (test diyu=279) MONOCYTES RELATIVE PERCENT 8 % (BEAKER) (test rhte=663) EOSINOPHILS RELATIVE PERCENT 5 % (BEAKER) (test dlrm=163) BASOPHILS RELATIVE PERCENT 1 % (BEAKER) (test botv=644) NEUTROPHILS ABSOLUTE COUNT 3.36 K/ L 1.78-5.38 (BEAKER) (test qlyk=821) LYMPHOCYTES ABSOLUTE COUNT 1.02 K/ L 1.32-3.57 (BEAKER) (test zxxn=329) MONOCYTES ABSOLUTE COUNT 0.42 K/ L 0.30-0.82 (BEAKER) (test mtdx=770) EOSINOPHILS ABSOLUTE COUNT 0.28 K/ L 0.04-0.54 (BEAKER) (test zpiy=650) BASOPHILS ABSOLUTE COUNT 0.05 K/ L 0.01-0.08 (BEAKER) (test mcbx=362) IMMATURE GRANULOCYTES-RELATIVE 0 % 0-1 PERCENT (BEAKER) (test nuav=0583) POCT-GLUCOSE [id number] 21:51:00 Test Item Value Reference Range Comments POC-GLUCOSE METER (BEAKER) 279 mg/dL 70-110 TESTED AT [address] (test snmd=8990) [place] [id number] POCT-GLUCOSE [id number] 17:37:00 Test Item Value Reference Range Comments POC-GLUCOSE METER (BEAKER) 151 mg/dL 70-110 TESTED AT [address] (test ufsd=0106) [place] [id number] BASIC METABOLIC [id number] 16:15:00 Test Item Value Reference Range Comments SODIUM (BEAKER) (test 138 meq/L 136-145 nqcz=901) POTASSIUM (BEAKER) (test 3.7 meq/L 3.5-5.1 etto=874) CHLORIDE (BEAKER) (test 102 meq/L 98-107 hrym=046) CO2 (BEAKER) (test 27 meq/L 22-29 edyl=083) BLOOD UREA NITROGEN 14 mg/dL 7-21 (BEAKER) (test yzny=109) CREATININE (BEAKER) (test 1.25 mg/dL 0.57-1.25 dvhq=124) GLUCOSE RANDOM (BEAKER) 129 mg/dL 70-105 (test benc=126) CALCIUM (BEAKER) (test 9.4 mg/dL 8.4-10.2 vufo=401) EGFR (BEAKER) (test 60 mL/min/1.73 sq m ESTIMATED GFR IS NOT cpso=1715) ACCURATE CREATININE CLEARANCE IN PREDICTING GLOMERULAR FILTRATION RATE. ESTIMATED GFR IS NOT APPLICABLE FOR DIALYSIS PATIENTS. Call [id number] 12:24:00 Test Item Value Reference Range Comments POC-GLUCOSE METER (BEAKER) 358 mg/dL 70-110 TESTED AT [address] (test ximo=0159) [place] [id number] POCT-GLUCOSE [id number] 07:53:00 Test Item Value Reference Range Comments POC-GLUCOSE METER (BEAKER) 173 mg/dL 70-110 TESTED AT [address] (test pmnw=8187) [place] [address] POCT-GLUCOSE [id number] 22:33:00 Test Item Value Reference Range Comments POC-GLUCOSE METER (BEAKER) 228 mg/dL 70-110 TESTED AT [address] (test tusn=0761) [place] [address] [id number] 09:58:00 Test Item Value Reference Range Comments PHOSPHORUS (BEAKER) (test psre=727) 3.5 mg/dL 2.3-4.7 [id number] 09:58:00 Test Item Value Reference Range Comments MAGNESIUM (BEAKER) (test peza=406) 1.9 mg/dL 1.6-2.6 COMPREHENSIVE METABOLIC [id number] 09:58:00 Test Item Value Reference Range Comments TOTAL PROTEIN (BEAKER) 7.5 gm/dL 6.0-8.3 (test npuz=139) ALBUMIN (BEAKER) (test 3.5 g/dL 3.5-5.0 nkgk=3893) ALKALINE PHOSPHATASE 129 U/L 40-150 (BEAKER) (test azvu=894) BILIRUBIN TOTAL (BEAKER) 0.9 mg/dL 0.2-1.2 (test thkk=109) SODIUM (BEAKER) (test 136 meq/L 136-145 ckmk=228) POTASSIUM (BEAKER) (test 3.6 meq/L 3.5-5.1 fjlm=751) CHLORIDE (BEAKER) (test 103 meq/L 98-107 lcnb=451) CO2 (BEAKER) (test 24 meq/L 22-29 lwnp=747) BLOOD UREA NITROGEN 14 mg/dL 7-21 (BEAKER) (test wkcd=735) CREATININE (BEAKER) (test 1.17 mg/dL 0.57-1.25 vned=530) GLUCOSE RANDOM (BEAKER) 224 mg/dL 70-105 (test ubdt=728) CALCIUM (BEAKER) (test 9.0 mg/dL 8.4-10.2 cuyc=116) AST (SGOT) (BEAKER) (test 57 U/L 5-34 tyoc=739) ALT (SGPT) (BEAKER) (test 25 U/L 6-55 fhhq=126) EGFR (BEAKER) (test 65 mL/min/1.73 sq m ESTIMATED GFR IS NOT ipce=7024) ACCURATE CREATININE CLEARANCE IN PREDICTING GLOMERULAR FILTRATION RATE. ESTIMATED GFR IS NOT APPLICABLE FOR DIALYSIS PATIENTS. POCT-GLUCOSE [id number] 08:36:00 Test Item Value Reference Range Comments POC-GLUCOSE METER (BEAKER) 220 mg/dL 70-110 TESTED AT [facility] [address] [facility] (test wjho=6323) [facility] [address] CBC W/PLT COUNT & AUTO [id number] 07:42:00 Test Item Value Reference Range Comments WHITE BLOOD CELL COUNT 5.4 K/ L 3.5-10.5 (BEAKER) (test uugt=236) RED BLOOD CELL COUNT (BEAKER) 4.30 M/ L 4.63-6.08 (test pmnj=591) HEMOGLOBIN (BEAKER) (test 8.6 GM/DL 13.7-17.5 hsmh=603) HEMATOCRIT (BEAKER) (test 29.3 % 40.1-51.0 rabo=232) MEAN CORPUSCULAR VOLUME 68.1 fL 79.0-92.2 (BEAKER) (test ahxi=451) MEAN CORPUSCULAR HEMOGLOBIN 20.0 pg 25.7-32.2 (BEAKER) (test moau=965) MEAN CORPUSCULAR HEMOGLOBIN 29.4 GM/DL 32.3-36.5 CONC (BEAKER) (test djkp=248) RED CELL DISTRIBUTION WIDTH 20.7 % 11.6-14.4 (BEAKER) (test otyd=116) PLATELET COUNT (BEAKER) (test 112 K/CU MM 150-450 asao=065) MEAN PLATELET VOLUME (BEAKER) fL 9.4-12.4 Unable to report due to (test ilyj=917) abnormal Platelet population distribution. NUCLEATED RED BLOOD CELLS 0 /100 WBC 0-0 (BEAKER) (test khwd=585) NEUTROPHILS RELATIVE PERCENT 71 % (BEAKER) (test vohf=583) LYMPHOCYTES RELATIVE PERCENT 15 % (BEAKER) (test ciap=307) MONOCYTES RELATIVE PERCENT 9 % (BEAKER) (test jkxo=008) EOSINOPHILS RELATIVE PERCENT 5 % (BEAKER) (test cyhz=237) BASOPHILS RELATIVE PERCENT 1 % (BEAKER) (test bjfe=426) NEUTROPHILS ABSOLUTE COUNT 3.79 K/ L 1.78-5.38 (BEAKER) (test hobq=206) LYMPHOCYTES ABSOLUTE COUNT 0.79 K/ L 1.32-3.57 (BEAKER) (test kpps=633) MONOCYTES ABSOLUTE COUNT 0.48 K/ L 0.30-0.82 (BEAKER) (test kemz=546) EOSINOPHILS ABSOLUTE COUNT 0.28 K/ L 0.04-0.54 (BEAKER) (test tmig=817) BASOPHILS ABSOLUTE COUNT 0.04 K/ L 0.01-0.08 (BEAKER) (test utje=729) IMMATURE GRANULOCYTES-RELATIVE 0 % 0-1 PERCENT (BEAKER) (test wvyh=4827) CALCIUM, [id number] 06:42:00 Test Item Value Reference Range Comments CALCIUM IONIZED (BEAKER) (test muea=767) 1.07 mmol/L 1.12-1.27 PH, BLOOD (AKER) (test sifd=7560) 7.42 POCT-GLUCOSE [id number] 22:30:00 Test Item Value Reference Range Comments POC-GLUCOSE METER (BEAKER) 183 mg/dL 70-110 TESTED AT [address] (test mrcn=4039) [facility] [address] POCT-GLUCOSE [id number] 18:41:00 Test Item Value Reference Range Comments POC-GLUCOSE METER (BEAKER) 278 mg/dL 70-110 TESTED AT [address] (test xflt=8067) [place] [id number] POCT-GLUCOSE [id number] 11:50:00 Test Item Value Reference Range Comments POC-GLUCOSE METER (BEAKER) 142 mg/dL 70-110 TESTED AT [address] (test exlq=3312) [facility] [address] POCT-GLUCOSE [id number] 10:36:00 Test Item Value Reference Range Comments POC-GLUCOSE METER (BEAKER) 130 mg/dL 70-110 TESTED AT [address] (test soye=2480) [facility] [address] POCT-GLUCOSE [id number] 07:40:00 Test Item Value Reference Range Comments POC-GLUCOSE METER (BEAKER) 145 mg/dL 70-110 TESTED AT [address] (test vmso=4724) [facility] [address] CBC W/PLT COUNT & AUTO [id number] 06:58:00 Test Item Value Reference Range Comments WHITE BLOOD CELL COUNT 5.1 K/ L 3.5-10.5 (BEAKER) (test ydlw=736) RED BLOOD CELL COUNT (BEAKER) 4.31 M/ L 4.63-6.08 (test nhfa=136) HEMOGLOBIN (BEAKER) (test 8.3 GM/DL 13.7-17.5 hsmj=814) HEMATOCRIT (BEAKER) (test 29.6 % 40.1-51.0 anfi=123) MEAN CORPUSCULAR VOLUME 68.7 fL 79.0-92.2 (BEAKER) (test ncby=678) MEAN CORPUSCULAR HEMOGLOBIN 19.3 pg 25.7-32.2 (BEAKER) (test uchq=283) MEAN CORPUSCULAR HEMOGLOBIN 28.0 GM/DL 32.3-36.5 CONC (BEAKER) (test scaz=592) RED CELL DISTRIBUTION WIDTH 21.1 % 11.6-14.4 (BEAKER) (test kgyh=387) PLATELET COUNT (BEAKER) (test 108 K/CU MM 150-450 kdkr=316) MEAN PLATELET VOLUME (BEAKER) fL 9.4-12.4 Unable to report due to (test uhhx=476) abnormal Platelet population distribution. NUCLEATED RED BLOOD CELLS 0 /100 WBC 0-0 (BEAKER) (test elnu=181) NEUTROPHILS RELATIVE PERCENT 65 % (BEAKER) (test zeer=742) LYMPHOCYTES RELATIVE PERCENT 20 % (BEAKER) (test rwrk=703) MONOCYTES RELATIVE PERCENT 8 % (BEAKER) (test unpu=730) EOSINOPHILS RELATIVE PERCENT 7 % (BEAKER) (test kzhf=554) BASOPHILS RELATIVE PERCENT 1 % (BEAKER) (test hiva=674) NEUTROPHILS ABSOLUTE COUNT 3.30 K/ L 1.78-5.38 (BEAKER) (test igwg=887) LYMPHOCYTES ABSOLUTE COUNT 1.00 K/ L 1.32-3.57 (BEAKER) (test ldpl=914) MONOCYTES ABSOLUTE COUNT 0.40 K/ L 0.30-0.82 (BEAKER) (test kbfr=247) EOSINOPHILS ABSOLUTE COUNT 0.33 K/ L 0.04-0.54 (BEAKER) (test gsku=705) BASOPHILS ABSOLUTE COUNT 0.05 K/ L 0.01-0.08 (BEAKER) (test yklp=147) IMMATURE GRANULOCYTES-RELATIVE 0 % 0-1 PERCENT (BEAKER) (test ecdh=6135) [id number] 06:56:00 Test Item Value Reference Range Comments PHOSPHORUS (BEAKER) (test xkbg=058) 3.7 mg/dL 2.3-4.7 [id number] 06:56:00 Test Item Value Reference Range Comments MAGNESIUM (BEAKER) (test sxxv=840) 1.6 mg/dL 1.6-2.6 BASIC METABOLIC [id number] 06:56:00 Test Item Value Reference Range Comments SODIUM (BEAKER) (test 138 meq/L 136-145 ewbu=181) POTASSIUM (BEAKER) (test 3.9 meq/L 3.5-5.1 vowg=984) CHLORIDE (BEAKER) (test 105 meq/L 98-107 tavw=493) CO2 (BEAKER) (test 25 meq/L 22-29 pldt=806) BLOOD UREA NITROGEN 13 mg/dL 7-21 (BEAKER) (test ogyl=813) CREATININE (BEAKER) (test 1.06 mg/dL 0.57-1.25 qtdh=106) GLUCOSE RANDOM (BEAKER) 115 mg/dL 70-105 (test axbq=976) CALCIUM (BEAKER) (test 8.8 mg/dL 8.4-10.2 lbfr=636) EGFR (BEAKER) (test 73 mL/min/1.73 sq m ESTIMATED GFR IS NOT zazk=7416) ACCURATE CREATININE CLEARANCE IN PREDICTING GLOMERULAR FILTRATION RATE. ESTIMATED GFR IS NOT APPLICABLE FOR DIALYSIS PATIENTS. CALCIUM, [id number] 06:46:00 Test Item Value Reference Range Comments CALCIUM IONIZED (BEAKER) (test dnqt=436) 0.89 mmol/L 1.12-1.27 PH, BLOOD (BEAKER) (test eozq=2161) 7.41 PROTHROMBIN [id number] 06:38:00 Test Item Value Reference Range Comments PROTIME (BEAKER) (test iehs=160) 15.2 seconds 11.7-14.7 INR (BEAKER) (test ronm=561) 1.2 <=5.9 RECOMMENDED COUMADIN/WARFARIN INR THERAPY RANGESSTANDARD DOSE: 2.0 - 3.0 Includes: PROPHYLAXIS forvenous thrombosis, systemic embolization; TREATMENT for venous thrombosis and/or pulmonary embolus.HIGH RISK: Target INR is 2.5-3.5 for patients with mechanical heart valves.B-TYPE NATRIURETIC FACTOR (BNP)2018-12 06:35:00 Test Item Value Reference Range Comments B-TYPE NATRIURETIC PEPTIDE (BEAKER) (test 135 pg/mL 0-100 otiv=119) POCT-GLUCOSE [id number] 22:28:00 Test Item Value Reference Range Comments POC-GLUCOSE METER (BEAKER) 109 mg/dL 70-110 TESTED AT [facility] [address] (test wvjw=9253) [facility] [address] POCT-GLUCOSE [id number] 21:07:00 Test Item Value Reference Range Comments POC-GLUCOSE METER (BEAKER) 91 mg/dL 70-110 TESTED AT [address] (test lvbu=8004) [facility] [address] POCT-GLUCOSE [id number] 16:48:00 Test Item Value Reference Range Comments POC-GLUCOSE METER (BEAKER) 487 mg/dL 70-110 TESTED AT [address] (test hskm=2750) [facility] [address] HOPE [id number] 12:58:00Reason for Exam:->recurrent variceal bleeding, portal hypertensionFINAL REPORT History: Portal hypertension, history of variceal bleeding. PROCEDURE: Following informed written consent, general endotracheal anesthesia was administered and the patient's right cervical region was prepped and draped in the usual sterile manner. Access was gained the right internal jugular vein using a micropuncture needle. A 9 Nigerien sheath was placed at the access site into the jugular vein. A 5 Nigerien multipurpose catheter and wire were used to carefully select the hepatic vein and perform a hepatic venogram. Hepatic venous pressures were then performed as described below. Following a discussion with the patient's referring molder feeder, Dr. Cano, who also conferred with cardiology, [...] ( Ka,r): 55 mGy Signed: Kimber Diaz MDRe[facility] Verified Date/Time: 12/26/2018 12: 58:23 Reading Location: [place] [address] Angio Body Reading Room POCT-GLUCOSE [id number] 12:50:00 Test Item Value Reference Range Comments POC-GLUCOSE METER (BEAKER) 124 mg/dL 70-110 TESTED AT [address] (test euaq=1925) [place] [id number] POCT-GLUCOSE [id number] 10:41:00 Test Item Value Reference Range Comments POC-GLUCOSE METER (BEAKER) 158 mg/dL 70-110 TESTED AT [facility] [address] (test grva=7740) [facility] [address] COMPREHENSIVE METABOLIC [id number] 07:58:00 Test Item Value Reference Range Comments TOTAL PROTEIN (BEAKER) 7.2 gm/dL 6.0-8.3 (test uacj=043) ALBUMIN (BEAKER) (test 3.0 g/dL 3.5-5.0 jyxx=7457) ALKALINE PHOSPHATASE 142 U/L 40-150 (BEAKER) (test pprk=851) BILIRUBIN TOTAL (BEAKER) 0.9 mg/dL 0.2-1.2 (test acuw=749) SODIUM (BEAKER) (test 138 meq/L 136-145 wbfi=530) POTASSIUM (BEAKER) (test 4.4 meq/L 3.5-5.1 bziu=402) CHLORIDE (BEAKER) (test 106 meq/L 98-107 soxw=688) CO2 (BEAKER) (test 26 meq/L 22-29 bzbn=060) BLOOD UREA NITROGEN 10 mg/dL 7-21 (BEAKER) (test dcot=098) CREATININE (BEAKER) (test 0.91 mg/dL 0.57-1.25 ryui=800) GLUCOSE RANDOM (BEAKER) 134 mg/dL 70-105 (test nwnr=257) CALCIUM (BEAKER) (test 9.3 mg/dL 8.4-10.2 cifl=170) AST (SGOT) (BEAKER) (test 69 U/L 5-34 owlo=251) ALT (SGPT) (BEAKER) (test 29 U/L 6-55 ybwx=594) EGFR (BEAKER) (test 86 mL/min/1.73 sq m ESTIMATED GFR IS NOT jktm=7493) ACCURATE CREATININE CLEARANCE IN PREDICTING GLOMERULAR FILTRATION RATE. ESTIMATED GFR IS NOT APPLICABLE FOR DIALYSIS PATIENTS. [id number] 07:58:00 Test Item Value Reference Range Comments PROTIME (BEAKER) (test whff=394) 15.4 seconds 11.7-14.7 INR (BEAKER) (test jxia=467) 1.2 <=5.9 PARTIAL THROMBOPLASTIN TIME (BEAKER) (test 35.4 seconds 22.5-36.0 zswx=430) RECOMMENDED COUMADIN/WARFARIN INR THERAPY RANGESSTANDARD DOSE: 2.0 - 3.0 Includes: PROPHYLAXIS forvenous thrombosis, systemic embolization; TREATMENT for venous thrombosis and/or pulmonary embolus.HIGH RISK: Target INR is 2.5-3.5 for patients with mechanical heart valves.CBC W/PLT COUNT & AUTO [id number] 07:52:00 Test Item Value Reference Range Comments WHITE BLOOD CELL COUNT (BEAKER) (test wauw=682) 4.6 K/ L 3.5-10.5 RED BLOOD CELL COUNT (BEAKER) (test fwhw=837) 4.35 M/ L 4.63-6.08 HEMOGLOBIN (BEAKER) (test beqq=458) 8.6 GM/DL 13.7-17.5 HEMATOCRIT (BEAKER) (test kkwj=284) 30.1 % 40.1-51.0 MEAN CORPUSCULAR VOLUME (BEAKER) (test igqa=190) 69.2 fL 79.0-92.2 MEAN CORPUSCULAR HEMOGLOBIN (BEAKER) (test 19.8 pg 25.7-32.2 emed=305) MEAN CORPUSCULAR HEMOGLOBIN CONC (BEAKER) (test 28.6 GM/DL 32.3-36.5 qchp=140) RED CELL DISTRIBUTION WIDTH (BEAKER) (test 21.3 % 11.6-14.4 twba=220) PLATELET COUNT (BEAKER) (test bwwp=607) 110 K/CU MM 150-450 MEAN PLATELET VOLUME (BEAKER) (test vufd=775) 10.1 fL 9.4-12.4 NUCLEATED RED BLOOD CELLS (BEAKER) (test 0 /100 WBC 0-0 tiju=771) NEUTROPHILS RELATIVE PERCENT (BEAKER) (test 66 % eklm=736) LYMPHOCYTES RELATIVE PERCENT (BEAKER) (test 19 % jxtd=200) MONOCYTES RELATIVE PERCENT (BEAKER) (test 8 % nxva=409) EOSINOPHILS RELATIVE PERCENT (BEAKER) (test 6 % gbnt=580) BASOPHILS RELATIVE PERCENT (BEAKER) (test 1 % jhcm=622) NEUTROPHILS ABSOLUTE COUNT (BEAKER) (test 3.03 K/ L 1.78-5.38 hadj=953) LYMPHOCYTES ABSOLUTE COUNT (BEAKER) (test 0.88 K/ L 1.32-3.57 qvuo=659) MONOCYTES ABSOLUTE COUNT (BEAKER) (test 0.37 K/ L 0.30-0.82 fyaa=119) EOSINOPHILS ABSOLUTE COUNT (BEAKER) (test 0.25 K/ L 0.04-0.54 xdxv=982) BASOPHILS ABSOLUTE COUNT (BEAKER) (test 0.04 K/ L 0.01-0.08 aamy=824) IMMATURE GRANULOCYTES-RELATIVE PERCENT (BEAKER) 0 % 0-1 (test afqz=4847) POCT-GLUCOSE [id number] 00:26:00 Test Item Value Reference Range Comments POC-GLUCOSE METER (BEAKER) 161 mg/dL 70-110 TESTED AT [address] (test gjwi=4352) [place] [id number] URINALYSIS W/ [id number] 17:35:00 Test Item Value Reference Range Comments COLOR (BEAKER) (test pynk=044) Light Yellow CLARITY (BEAKER) (test kxkr=591) Clear SPECIFIC GRAVITY UA (BEAKER) (test wcca=744) 1.008 1.001-1.035 PH UA (BEAKER) (test pdah=918) 7.5 5.0-8.0 PROTEIN UA (BEAKER) (test snxl=052) 30 mg/dL Negative GLUCOSE UA (BEAKER) (test otju=369) 30 mg/dL Negative KETONES UA (BEAKER) (test hnrp=355) Negative Negative BILIRUBIN UA (BEAKER) (test pvna=623) Negative Negative BLOOD UA (BEAKER) (test faze=509) Trace Negative NITRITE UA (BEAKER) (test fjxo=600) Negative Negative LEUKOCYTE ESTERASE UA (BEAKER) (test dwlo=129) Negative Negative UROBILINOGEN UA (BEAKER) (test lyhk=567) 0.2 mg/dL 0.2-1.0 RBC UA (BEAKER) (test xuxo=209) 1 /HPF WBC UA (BEAKER) (test tzzg=677) 1 /HPF SOURCE(BEAKER) (test impd=5913) Urine, Voided POCT-GLUCOSE [id number] 16:55:00 Test Item Value Reference Range Comments POC-GLUCOSE METER (BEAKER) 234 mg/dL 70-110 TESTED AT [address] (test pqps=1214) [facility] [address] POCT-GLUCOSE [id number] 12:09:00 Test Item Value Reference Range Comments POC-GLUCOSE METER (BEAKER) 199 mg/dL 70-110 TESTED AT [address] (test juta=2750) [facility] [address] POCT-GLUCOSE [id number] 07:58:00 Test Item Value Reference Range Comments POC-GLUCOSE METER (BEAKER) 221 mg/dL 70-110 TESTED AT [address] (test ctmb=4097) [facility] [address] POCT-GLUCOSE [id number] 22:49:00 Test Item Value Reference Range Comments POC-GLUCOSE METER (BEAKER) 210 mg/dL 70-110 TESTED AT [address] (test zcya=0131) [facility] [address] POCT-GLUCOSE [id number] 14:45:00 Test Item Value Reference Range Comments POC-GLUCOSE METER (BEAKER) 128 mg/dL 70-110 TESTED AT [address] (test pyml=7526) [facility] [address] POCT-GLUCOSE [id number] 12:03:00 Test Item Value Reference Range Comments POC-GLUCOSE METER (BEAKER) 136 mg/dL 70-110 TESTED AT [address] (test ykyk=6935) [facility] [address] COMPREHENSIVE METABOLIC [id number] 09:07:00 Test Item Value Reference Range Comments TOTAL PROTEIN (BEAKER) 6.9 gm/dL 6.0-8.3 Specimen slightly (test cwrm=433) hemolyzed ALBUMIN (BEAKER) (test 2.7 g/dL 3.5-5.0 Specimen slightly yxoc=5761) hemolyzed ALKALINE PHOSPHATASE 136 U/L 40-150 (BEAKER) (test xcpd=734) BILIRUBIN TOTAL (BEAKER) 1.1 mg/dL 0.2-1.2 Specimen slightly (test hsyp=397) hemolyzed SODIUM (BEAKER) (test 135 meq/L 136-145 ltyc=900) POTASSIUM (BEAKER) (test 4.4 meq/L 3.5-5.1 Specimen slightly zmgb=986) hemolyzed CHLORIDE (BEAKER) (test 106 meq/L 98-107 ytfm=849) CO2 (BEAKER) (test 26 meq/L 22-29 abam=766) BLOOD UREA NITROGEN 7 mg/dL 7-21 (BEAKER) (test zwur=279) CREATININE (BEAKER) (test 0.85 mg/dL 0.57-1.25 Specimen slightly tlxh=500) hemolyzed GLUCOSE RANDOM (BEAKER) 118 mg/dL 70-105 (test bzwg=771) CALCIUM (BEAKER) (test 8.8 mg/dL 8.4-10.2 exhr=707) AST (SGOT) (BEAKER) (test 69 U/L 5-34 Specimen slightly sqbw=881) hemolyzed ALT (SGPT) (BEAKER) (test 28 U/L 6-55 Specimen slightly pjij=293) hemolyzed EGFR (BEAKER) (test 94 mL/min/1.73 sq m ESTIMATED GFR IS NOT dhpn=8838) ACCURATE CREATININE CLEARANCE IN PREDICTING GLOMERULAR FILTRATION RATE. ESTIMATED GFR IS NOT APPLICABLE FOR DIALYSIS PATIENTS. CBC W/PLT COUNT & AUTO [id number] 08:37:00 Test Item Value Reference Range Comments WHITE BLOOD CELL COUNT 4.4 K/ L 3.5-10.5 (BEAKER) (test jqvq=331) RED BLOOD CELL COUNT (BEAKER) 4.31 M/ L 4.63-6.08 (test qliw=748) HEMOGLOBIN (BEAKER) (test 8.4 GM/DL 13.7-17.5 ukfq=244) HEMATOCRIT (BEAKER) (test 30.2 % 40.1-51.0 dveh=851) MEAN CORPUSCULAR VOLUME 70.1 fL 79.0-92.2 (BEAKER) (test ayic=488) MEAN CORPUSCULAR HEMOGLOBIN 19.5 pg 25.7-32.2 (BEAKER) (test rnhz=859) MEAN CORPUSCULAR HEMOGLOBIN 27.8 GM/DL 32.3-36.5 CONC (BEAKER) (test jifv=787) RED CELL DISTRIBUTION WIDTH 21.9 % 11.6-14.4 (BEAKER) (test nljq=915) PLATELET COUNT (BEAKER) (test 114 K/CU MM 150-450 khyw=410) MEAN PLATELET VOLUME (BEAKER) fL 9.4-12.4 Unable to report due to (test ulxq=420) abnormal Platelet population distribution. NUCLEATED RED BLOOD CELLS 0 /100 WBC 0-0 (BEAKER) (test zwoj=682) NEUTROPHILS RELATIVE PERCENT 62 % (BEAKER) (test drpa=119) LYMPHOCYTES RELATIVE PERCENT 22 % (BEAKER) (test mkgm=053) MONOCYTES RELATIVE PERCENT 8 % (BEAKER) (test frrk=005) EOSINOPHILS RELATIVE PERCENT 6 % (BEAKER) (test shgv=530) BASOPHILS RELATIVE PERCENT 1 % (BEAKER) (test nkyh=458) NEUTROPHILS ABSOLUTE COUNT 2.75 K/ L 1.78-5.38 (BEAKER) (test oily=437) LYMPHOCYTES ABSOLUTE COUNT 0.98 K/ L 1.32-3.57 (BEAKER) (test zbwc=172) MONOCYTES ABSOLUTE COUNT 0.34 K/ L 0.30-0.82 (BEAKER) (test giyh=756) EOSINOPHILS ABSOLUTE COUNT 0.28 K/ L 0.04-0.54 (BEAKER) (test axar=655) BASOPHILS ABSOLUTE COUNT 0.06 K/ L 0.01-0.08 (BEAKER) (test vrif=785) IMMATURE GRANULOCYTES-RELATIVE 1 % 0-1 PERCENT (BEAKER) (test lkqq=7397) POCT-GLUCOSE [id number] 08:07:00 Test Item Value Reference Range Comments POC-GLUCOSE METER (BEAKER) 144 mg/dL 70-110 TESTED AT [address] (test ueqm=1762) [place] [address] [id number] 23:43:00 Test Item Value Reference Range Comments MAGNESIUM (BEAKER) (test qyuh=298) 1.7 mg/dL 1.6-2.6 POCT-GLUCOSE [id number] 22:22:00 Test Item Value Reference Range Comments POC-GLUCOSE METER (BEAKER) 211 mg/dL 70-110 TESTED AT [address] (test wvtn=1311) [place] [address] POCT-GLUCOSE [id number] 17:13:00 Test Item Value Reference Range Comments POC-GLUCOSE METER (BEAKER) 202 mg/dL 70-110 TESTED AT [address] (test obma=1188) [place] [address] [id number] 16:14:00 Test Item Value Reference Range Comments T3 TOTAL (BEAKER) (test zrpt=804) 108 ng/dL 48-159 POCT-GLUCOSE [id number] 13:49:00 Test Item Value Reference Range Comments POC-GLUCOSE METER (BEAKER) 303 mg/dL 70-110 TESTED AT [facility] [address] [facility] (test yspo=2057) [facility] [address] POCT-GLUCOSE [id number] 12:15:00 Test Item Value Reference Range Comments POC-GLUCOSE METER (BEAKER) 304 mg/dL 70-110 Notified JADA NIX/TESTED AT [facility] (test nnsj=9939) [address] [facility] [address] ANTI-MITOCHONDRIAL AB, REFLEX TO [id number] 08:35:00 Test Item Value Reference Range Comments SCAN RESULT (test xves=[id number]) POCT-GLUCOSE [id number] 08:08:00 Test Item Value Reference Range Comments POC-GLUCOSE METER (BEAKER) 146 mg/dL 70-110 TESTED AT [facility] [address] [facility] (test bxzh=6215) [facility] [address] HEPATIC FUNCTION [id number] 06:32:00 Test Item Value Reference Range Comments TOTAL PROTEIN (BEAKER) (test khvn=325) 6.5 gm/dL 6.0-8.3 ALBUMIN (BEAKER) (test ljas=9363) 2.7 g/dL 3.5-5.0 BILIRUBIN TOTAL (BEAKER) (test otel=780) 0.8 mg/dL 0.2-1.2 BILIRUBIN DIRECT (BEAKER) (test jtki=591) 0.6 mg/dL 0.1-0.5 ALKALINE PHOSPHATASE (BEAKER) (test jeuu=597) 141 U/L 40-150 AST (SGOT) (BEAKER) (test jpyo=963) 66 U/L 5-34 ALT (SGPT) (BEAKER) (test flnr=478) 27 U/L 6-55 BASIC METABOLIC [id number] 06:32:00 Test Item Value Reference Range Comments SODIUM (BEAKER) (test 137 meq/L 136-145 iyli=424) POTASSIUM (BEAKER) (test 4.0 meq/L 3.5-5.1 gljh=353) CHLORIDE (BEAKER) (test 106 meq/L 98-107 lmht=371) CO2 (BEAKER) (test 26 meq/L 22-29 sktl=623) BLOOD UREA NITROGEN 7 mg/dL 7-21 (BEAKER) (test rakt=826) CREATININE (BEAKER) (test 0.81 mg/dL 0.57-1.25 aoeh=719) GLUCOSE RANDOM (BEAKER) 134 mg/dL 70-105 (test cyyh=354) CALCIUM (BEAKER) (test 8.6 mg/dL 8.4-10.2 udrn=408) EGFR (BEAKER) (test 99 mL/min/1.73 sq m ESTIMATED GFR IS NOT jitx=3596) ACCURATE CREATININE CLEARANCE IN PREDICTING GLOMERULAR FILTRATION RATE. ESTIMATED GFR IS NOT APPLICABLE FOR DIALYSIS PATIENTS. CBC (HEMOGRAM ONLY)2018-12-23 05:34:00 Test Item Value Reference Range Comments WHITE BLOOD CELL COUNT (BEAKER) (test sxwr=236) 4.4 K/ L 3.5-10.5 RED BLOOD CELL COUNT (BEAKER) (test xajz=872) 4.11 M/ L 4.63-6.08 HEMOGLOBIN (BEAKER) (test icic=451) 8.0 GM/DL 13.7-17.5 HEMATOCRIT (BEAKER) (test hljl=135) 28.2 % 40.1-51.0 MEAN CORPUSCULAR VOLUME (BEAKER) (test oleg=831) 68.6 fL 79.0-92.2 MEAN CORPUSCULAR HEMOGLOBIN (BEAKER) (test 19.5 pg 25.7-32.2 hnqb=113) MEAN CORPUSCULAR HEMOGLOBIN CONC (BEAKER) (test 28.4 GM/DL 32.3-36.5 mcaw=839) RED CELL DISTRIBUTION WIDTH (BEAKER) (test 21.5 % 11.6-14.4 lrms=957) PLATELET COUNT (BEAKER) (test emxc=551) 121 K/CU MM 150-450 MEAN PLATELET VOLUME (BEAKER) (test ldme=470) 10.2 fL 9.4-12.4 NUCLEATED RED BLOOD CELLS (BEAKER) (test 0 /100 WBC 0-0 kzsb=961) PROTHROMBIN [id number] 05:27:00 Test Item Value Reference Range Comments PROTIME (BEAKER) (test zfof=314) 15.2 seconds 11.7-14.7 INR (BEAKER) (test albd=918) 1.2 <=5.9 RECOMMENDED COUMADIN/WARFARIN INR THERAPY RANGESSTANDARD DOSE: 2.0 - 3.0 Includes: PROPHYLAXIS forvenous thrombosis, systemic embolization; TREATMENT for venous thrombosis and/or pulmonary embolus.HIGH RISK: Target INR is 2.5-3.5 for patients with mechanical heart valves.POCT-GLUCOSE [id number] 23:11:00 Test Item Value Reference Range Comments POC-GLUCOSE METER (BEAKER) 224 mg/dL 70-110 TESTED AT [address] (test owiu=5953) [facility] [address] POCT-GLUCOSE [id number] 16:52:00 Test Item Value Reference Range Comments POC-GLUCOSE METER (BEAKER) 250 mg/dL 70-110 TESTED AT [address] (test sekf=5760) [facility] [address] POCT-GLUCOSE [id number] 11:56:00 Test Item Value Reference Range Comments POC-GLUCOSE METER (BEAKER) 310 mg/dL 70-110 TESTED AT [address] (test yuuu=0419) [facility] [address] POCT-GLUCOSE [id number] 07:50:00 Test Item Value Reference Range Comments POC-GLUCOSE METER (BEAKER) 267 mg/dL 70-110 TESTED AT [address] (test zdjw=7441) [facility] [address] COMPREHENSIVE METABOLIC [id number] 05:05:00 Test Item Value Reference Range Comments TOTAL PROTEIN (BEAKER) 6.3 gm/dL 6.0-8.3 (test hwwp=794) ALBUMIN (BEAKER) (test 2.6 g/dL 3.5-5.0 gghd=3202) ALKALINE PHOSPHATASE 112 U/L 40-150 (BEAKER) (test rdwa=414) BILIRUBIN TOTAL (BEAKER) 0.9 mg/dL 0.2-1.2 (test bmzy=739) SODIUM (BEAKER) (test 138 meq/L 136-145 qcpe=545) POTASSIUM (BEAKER) (test 3.9 meq/L 3.5-5.1 utkv=979) CHLORIDE (BEAKER) (test 108 meq/L 98-107 qmwk=081) CO2 (BEAKER) (test 25 meq/L 22-29 wsgk=533) BLOOD UREA NITROGEN 6 mg/dL 7-21 (BEAKER) (test xevj=444) CREATININE (BEAKER) (test 0.82 mg/dL 0.57-1.25 cwlt=362) GLUCOSE RANDOM (BEAKER) 146 mg/dL 70-105 (test fdie=616) CALCIUM (BEAKER) (test 8.8 mg/dL 8.4-10.2 vbdy=564) AST (SGOT) (BEAKER) (test 73 U/L 5-34 phue=388) ALT (SGPT) (BEAKER) (test 25 U/L 6-55 ardw=786) EGFR (BEAKER) (test 98 mL/min/1.73 sq m ESTIMATED GFR IS NOT oiac=0841) ACCURATE CREATININE CLEARANCE IN PREDICTING GLOMERULAR FILTRATION RATE. ESTIMATED GFR IS NOT APPLICABLE FOR DIALYSIS PATIENTS. POCT-GLUCOSE [id number] 22:34:00 Test Item Value Reference Range Comments POC-GLUCOSE METER (BEAKER) 186 mg/dL 70-110 TESTED AT [address] (test qofj=5457) [place] [id number] POCT-GLUCOSE [id number] 18:03:00 Test Item Value Reference Range Comments POC-GLUCOSE METER (BEAKER) 206 mg/dL 70-110 TESTED AT [address] (test ckpd=3643) [place] [address] RAD, MANDIBLE, MIN 4 [id number] 17:16:00Reason for exam:->liver transplant evalShould this be [...] Mauricio Verified Date/Time: 12/21/2018 17:16:26 Reading Location: [address] Reading Room POCT-GLUCOSE [id number] 11:42:00 Test Item Value Reference Range Comments POC-GLUCOSE METER (BEAKER) 305 mg/dL 70-110 Notified JADA NIX/TESTED AT [facility] (test ehqk=5382) [address] [place] [address] POCT-GLUCOSE [id number] 08:14:00 Test Item Value Reference Range Comments POC-GLUCOSE METER (BEAKER) 288 mg/dL 70-110 TESTED AT [address] (test hchr=7999) [facility] [address] POCT-GLUCOSE [id number] 23:29:00 Test Item Value Reference Range Comments POC-GLUCOSE METER (BEAKER) 134 mg/dL 70-110 TESTED AT [address] (test ueoj=9571) [place] [id number] POCT-GLUCOSE [id number] 18:42:00 Test Item Value Reference Range Comments POC-GLUCOSE METER (BEAKER) 357 mg/dL 70-110 TESTED AT [address] (test uvoc=2060) [place] [address] CRYPTOCOCCAL [id number] 11:32:00 Test Item Value Reference Range Comments CRYPTOCOCCAL ANTIGEN, SERUM (BEAKER) (test Negative Negative, Interference pzoo=9009) [id number] 11:30:00 Test Item Value Reference Range Comments RPR SCREEN (BEAKER) (test vukq=770) Nonreactive Nonreactive HEMOGLOBIN [id number] 10:23:00 Test Item Value Reference Range Comments HEMOGLOBIN A1C (BEAKER) (test hybf=952) 6.7 % 4.3-6.1 CYTOMEGALOVIRUS ANTIBODY, [id number] 09:29:00 Test Item Value Reference Range Comments CYTOMEGALOVIRUS, IGG (BEAKER) (test mjpw=0448) Positive Negative, Equivocal CMV IgG Result Interpretation: </=0.8 Al Negative 0.9-1.0 Al Equivocal &gt ;/=1.1 Al PositiveCYTOMEGALOVIRUS ANTIBODY, [id number] 09:29:00 Test Item Value Reference Range Comments CYTOMEGALOVIRUS IGM ANTIBODY (BEAKER) (test Negative Negative, Equivocal jxti=5158) CMV IgM Result Interpretation: </=0.8 Al Negative 0.9-1.0 Al Equivocal >/=1.1 Al PositiveEBV ANTIBODY, [id number] 09:29:00 Test Item Value Reference Range Comments JAQUELINE MEDRANO VIRAL CAPSID ANTIGEN IGG (BEAKER) Positive Negative, Equivocal (test wmbb=1434) Jaqueline Medrano Viral Capsid Antigen IgG Result Interpretation: </=0.8 Al Negative 0.9-1.0 Al Equivocal >/=1.1 Al PositiveEBV ANTIBODY, [id number] 09:29:00 Test Item Value Reference Range Comments JAQUELINE MEDRANO VIRAL CAPSID ANTIGEN IGM (BEAKER) Negative Negative, Equivocal (test yyen=8354) Jaqueline Medrano Viral Capsid Antigen IgM Result Interpretation: </=0.8 Al Negative 0.9-1.0 Al Equivocal >/=1.1 Al PositivePOCT-GLUCOSE [id number] 07:53:00 Test Item Value Reference Range Comments POC-GLUCOSE METER (BEAKER) 168 mg/dL 70-110 TESTED AT [facility] [address] [facility] (test rqjk=8589) [facility] [address] CBC (HEMOGRAM ONLY)2018-12-20 07:02:00 Test Item Value Reference Range Comments WHITE BLOOD CELL COUNT (BEAKER) (test geqe=682) 4.7 K/ L 3.5-10.5 RED BLOOD CELL COUNT (BEAKER) (test pagi=791) 4.09 M/ L 4.63-6.08 HEMOGLOBIN (BEAKER) (test wklj=653) 8.1 GM/DL 13.7-17.5 HEMATOCRIT (BEAKER) (test hnng=155) 28.3 % 40.1-51.0 MEAN CORPUSCULAR VOLUME (BEAKER) (test rqca=489) 69.2 fL 79.0-92.2 MEAN CORPUSCULAR HEMOGLOBIN (BEAKER) (test 19.8 pg 25.7-32.2 gxkz=137) MEAN CORPUSCULAR HEMOGLOBIN CONC (BEAKER) (test 28.6 GM/DL 32.3-36.5 itwu=346) RED CELL DISTRIBUTION WIDTH (BEAKER) (test 21.8 % 11.6-14.4 mdxo=415) PLATELET COUNT (BEAKER) (test umfa=181) 121 K/CU MM 150-450 MEAN PLATELET VOLUME (BEAKER) (test znwn=813) 10.6 fL 9.4-12.4 NUCLEATED RED BLOOD CELLS (BEAKER) (test 0 /100 WBC 0-0 pppg=238) CALCIUM, [id number] 06:36:00 Test Item Value Reference Range Comments CALCIUM IONIZED (BEAKER) (test slhh=056) 1.07 mmol/L 1.12-1.27 PH, BLOOD (BEAKER) (test ogro=7346) 7.41 HEPATIC FUNCTION [id number] 06:32:00 Test Item Value Reference Range Comments TOTAL PROTEIN (BEAKER) (test trym=395) 6.4 gm/dL 6.0-8.3 ALBUMIN (BEAKER) (test juou=1069) 2.6 g/dL 3.5-5.0 BILIRUBIN TOTAL (BEAKER) (test dtyc=303) 0.6 mg/dL 0.2-1.2 BILIRUBIN DIRECT (BEAKER) (test tlra=309) 0.4 mg/dL 0.1-0.5 ALKALINE PHOSPHATASE (BEAKER) (test bqud=695) 127 U/L 40-150 AST (SGOT) (BEAKER) (test oazl=124) 54 U/L 5-34 ALT (SGPT) (BEAKER) (test dofn=811) 22 U/L 6-55 BASIC METABOLIC [id number] 06:32:00 Test Item Value Reference Range Comments SODIUM (BEAKER) (test 138 meq/L 136-145 sjsf=083) POTASSIUM (BEAKER) (test 3.8 meq/L 3.5-5.1 zfjy=393) CHLORIDE (BEAKER) (test 104 meq/L 98-107 atjg=320) CO2 (BEAKER) (test 26 meq/L 22-29 azmd=867) BLOOD UREA NITROGEN 8 mg/dL 7-21 (BEAKER) (test vdtd=535) CREATININE (BEAKER) (test 0.85 mg/dL 0.57-1.25 xxap=653) GLUCOSE RANDOM (BEAKER) 167 mg/dL 70-105 (test cion=990) CALCIUM (BEAKER) (test 8.3 mg/dL 8.4-10.2 oqfi=613) EGFR (BEAKER) (test 94 mL/min/1.73 sq m ESTIMATED GFR IS NOT hasw=8420) ACCURATE CREATININE CLEARANCE IN PREDICTING GLOMERULAR FILTRATION RATE. ESTIMATED GFR IS NOT APPLICABLE FOR DIALYSIS PATIENTS. POCT-GLUCOSE [id number] 23:08:00 Test Item Value Reference Range Comments POC-GLUCOSE METER (BEAKER) 284 mg/dL 70-110 TESTED AT [facility] [address] [place] [address] (test tequ=1062) [facility] [address] POCT-GLUCOSE [id number] 20:20:00 Test Item Value Reference Range Comments POC-GLUCOSE METER (BEAKER) 185 mg/dL 70-110 TESTED AT [facility] [address] [facility] (test nkgf=7265) [facility] [address] BLOOD GAS, [id number] 20:05:00 Test Item Value Reference Range Comments PH ARTERIAL (BEAKER) (test byak=436) 7.48 7.35-7.45 PCO2 ARTERIAL (BEAKER) (test yesd=252) 38 mmHg 35-45 PO2 ARTERIAL (BEAKER) (test dzas=762) 83 mmHg 80-90 O2 SATURATION ARTERIAL (BEAKER) (test ddrk=914) 97.1 % 96.0-97.0 HCO3 ARTERIAL (BEAKER) (test xsib=074) 28 mmol/L 21-29 BASE EXCESS ARTERIAL (BEAKER) (test bzdk=160) 4.0 mmol/L -2.0-3.0 PATIENT TEMPERATURE (BEAKER) (test awfk=9565) 36.3 C FIO2 (BEAKER) (test crbr=7608) 21.0 % HEPATITIS B SURFACE [id number] 19:10:00 Test Item Value Reference Range Comments HEPATITIS B SURFACE ANTIBODY (BEAKER) (test < mIU/mL <8.0 nkkj=094) VITAMIN D, [id number] 19:08:00 Test Item Value Reference Range Comments VITAMIN D 25-OH (BEAKER) (test srhs=0908) 6.6 ng/mL 6.6-49.9 Effective 07/04/2017: Reference Range ChangeNew: 6.6-49.9 ng/mL Previous: 13.0 -47.8 ng/mLRecommended Vitamin D Target Range: 30.0-40.0 ng/mLCARCINOEMBRYONIC ANTIGEN (CEA)2018-12-19 19:07:00 Test Item Value Reference Range Comments CARCINOEMBRYONIC ANTIGEN (BEAKER) (test tlhg=873) 1.9 ng/mL 0.0-5.0 HEPATITIS B SURFACE [id number] 19:07:00 Test Item Value Reference Range Comments HEPATITIS B SURFACE ANTIGEN (2) (BEAKER) (test Nonreactive Nonreactive nxpe=0921) HEPATITIS B CORE ANTIBODY, [id number] 19:07:00 Test Item Value Reference Range Comments HEPATITIS B CORE IGM ANTIBODY (BEAKER) (test Nonreactive Nonreactive sqwk=988) HEPATITIS A ANTIBODY, [id number] 19:07:00 Test Item Value Reference Range Comments HEPATITIS A IGM ANTIBODY (BEAKER) (test Nonreactive Nonreactive vifw=465) [id number] 18:59:00 Test Item Value Reference Range Comments PROSTATE SPECIFIC ANTIGEN (BEAKER) (test dsdz=471) 0.5 ng/mL 0.0-4.0 HIV-1 ANTIGEN WITH HIV-1/2 [id number] 18:59:00 Test Item Value Reference Range Comments HIV-1 ANTIGEN WITH HIV 1\T\2 ANTIBODY (2) Nonreactive Nonreactive (BEAKER) (test qigt=2256) [id number] 18:58:00 Test Item Value Reference Range Comments TRANSFERRIN (BEAKER) (test ggah=492) 288 mg/dL 174-382 [id number] 18:22:00 Test Item Value Reference Range Comments THYROID STIMULATING HORMONE (BEAKER) (test 5.24 uIU/mL 0.35-4.94 eqeo=764) [id number] 18:19:00 Test Item Value Reference Range Comments T4 TOTAL (BEAKER) (test hdfz=687) 6.9 ug/dL 4.9-11.7 URIC [id number] 18:01:00 Test Item Value Reference Range Comments URIC ACID (BEAKER) (test iysw=969) 4.7 mg/dL 2.6-7.2 [id number] 18:01:00 Test Item Value Reference Range Comments MAGNESIUM (BEAKER) (test kyey=016) 1.7 mg/dL 1.6-2.6 [id number] 18:01:00 Test Item Value Reference Range Comments PHOSPHORUS (BEAKER) (test izbl=107) 2.6 mg/dL 2.3-4.7 LIPID [id number] 18:01:00 Test Item Value Reference Range Comments TRIGLYCERIDES (BEAKER) (test efdy=681) 47 mg/dL CHOLESTEROL (BEAKER) (test lfcv=932) 104 mg/dL HDL CHOLESTEROL (BEAKER) (test zzuy=516) 33 mg/dL LDL CHOLESTEROL CALCULATED (BEAKER) (test 62 mg/dL ioeo=054) Triglyceride Reference Range: Low Risk <150 Borderline [...] Range Comments GAMMA GLUTAMYL TRANSFERASE (BEAKER) (test bnex=510) 24 U/L 9-64 [id number] 18:00:00 Test Item Value Reference Range Comments ETHANOL (BEAKER) (test qcuw=386) < mg/dL <=10 [id number] 12:48:00 Test Item Value Reference Range Comments D-DIMER QUANTITATIVE (BEAKER) (test dplt=381) 6.75 MG/L FEU <0.50 Intended Use: The D-Dimer Assay can be used to aid in the diagnosis of Deep Vein Thrombosis (DVT) and Pulmonary Embolism Disease (PED).In patients with low pre-test probability, various studies concerning STA Liatest D-dimer test have reported that with a cutoff value of 0.50 MG/L FEU, the Negative Predictive Value (NPV) regarding the exclusion of thrombosis is within 95-100% range.[id number] 12:41:00 Test Item Value Reference Range Comments PARTIAL THROMBOPLASTIN TIME (BEAKER) (test 35.4 seconds 22.5-36.0 ysyj=759) PROTHROMBIN [id number] 12:39:00 Test Item Value Reference Range Comments PROTIME (BEAKER) (test bevq=954) 14.9 seconds 11.7-14.7 INR (BEAKER) (test ftgv=670) 1.2 <=5.9 RECOMMENDED COUMADIN/WARFARIN INR THERAPY RANGESSTANDARD DOSE: 2.0 - 3.0 Includes: PROPHYLAXIS forvenous thrombosis, systemic embolization; TREATMENT for venous thrombosis and/or pulmonary embolus.HIGH RISK: Target INR is 2.5-3.5 for patients with mechanical heart valves.POCT-GLUCOSE [id number] 11:36:00 Test Item Value Reference Range Comments POC-GLUCOSE METER (BEAKER) 267 mg/dL 70-110 TESTED AT [address] (test itdg=5059) [facility] [address] POCT-GLUCOSE [id number] 10:02:00 Test Item Value Reference Range Comments POC-GLUCOSE METER (BEAKER) 249 mg/dL 70-110 TESTED AT [address] (test qawm=8971) [place] [id number] MISCELLANEOUS LAB [id number] 07:59:00 Test Item Value Reference Range Comments SCAN RESULT (test khvb=[id number]) POCT-GLUCOSE [id number] 07:50:00 Test Item Value Reference Range Comments POC-GLUCOSE METER (BEAKER) 228 mg/dL 70-110 TESTED AT [address] (test eovg=3147) [place] [id number] HEPATIC FUNCTION [id number] 06:21:00 Test Item Value Reference Range Comments TOTAL PROTEIN (BEAKER) (test dzte=445) 6.8 gm/dL 6.0-8.3 ALBUMIN (BEAKER) (test hpag=9055) 2.8 g/dL 3.5-5.0 BILIRUBIN TOTAL (BEAKER) (test yzzq=567) 0.9 mg/dL 0.2-1.2 BILIRUBIN DIRECT (BEAKER) (test ttwz=134) 0.5 mg/dL 0.1-0.5 ALKALINE PHOSPHATASE (BEAKER) (test ttwp=030) 117 U/L 40-150 AST (SGOT) (BEAKER) (test mnnw=758) 47 U/L 5-34 ALT (SGPT) (BEAKER) (test drum=075) 18 U/L 6-55 BASIC METABOLIC [id number] 06:21:00 Test Item Value Reference Range Comments SODIUM (BEAKER) (test 136 meq/L 136-145 qkga=966) POTASSIUM (BEAKER) (test 3.8 meq/L 3.5-5.1 zyfx=559) CHLORIDE (BEAKER) (test 104 meq/L 98-107 fspq=902) CO2 (BEAKER) (test 26 meq/L 22-29 etht=896) BLOOD UREA NITROGEN 7 mg/dL 7-21 (BEAKER) (test dyds=282) CREATININE (BEAKER) (test 0.84 mg/dL 0.57-1.25 jhfj=296) GLUCOSE RANDOM (BEAKER) 152 mg/dL 70-105 (test ejyb=693) CALCIUM (BEAKER) (test 8.4 mg/dL 8.4-10.2 jwtl=176) EGFR (BEAKER) (test 95 mL/min/1.73 sq m ESTIMATED GFR IS NOT eaer=3634) ACCURATE CREATININE CLEARANCE IN PREDICTING GLOMERULAR FILTRATION RATE. ESTIMATED GFR IS NOT APPLICABLE FOR DIALYSIS PATIENTS. CBC (HEMOGRAM ONLY)2018-12-19 06:02:00 Test Item Value Reference Range Comments WHITE BLOOD CELL COUNT (BEAKER) (test rzlz=901) 5.3 K/ L 3.5-10.5 RED BLOOD CELL COUNT (BEAKER) (test puzl=315) 4.18 M/ L 4.63-6.08 HEMOGLOBIN (BEAKER) (test nhvm=838) 8.2 GM/DL 13.7-17.5 HEMATOCRIT (BEAKER) (test gtrd=218) 28.9 % 40.1-51.0 MEAN CORPUSCULAR VOLUME (BEAKER) (test jodj=366) 69.1 fL 79.0-92.2 MEAN CORPUSCULAR HEMOGLOBIN (BEAKER) (test 19.6 pg 25.7-32.2 hess=735) MEAN CORPUSCULAR HEMOGLOBIN CONC (BEAKER) (test 28.4 GM/DL 32.3-36.5 shzg=303) RED CELL DISTRIBUTION WIDTH (BEAKER) (test 21.5 % 11.6-14.4 jhea=212) PLATELET COUNT (BEAKER) (test ssfq=621) 130 K/CU MM 150-450 MEAN PLATELET VOLUME (BEAKER) (test rjqy=490) 9.9 fL 9.4-12.4 NUCLEATED RED BLOOD CELLS (BEAKER) (test 0 /100 WBC 0-0 ydlg=887) POCT-GLUCOSE [id number] 21:21:00 Test Item Value Reference Range Comments POC-GLUCOSE METER (BEAKER) 213 mg/dL 70-110 TESTED AT [facility] [address] (test unus=0751) [facility] [address] MR, ABDOMEN, [id number] 19:09:00Addendum BeginsREPORT STATUS:A Automatic Pad Making Machine Operator error in the third 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 It should read: Questionable small nonocclusive thrombus in the high SUPERIOR mesenteric vein. Signed: Roe Solorzano MDReport Verified Date/Time: 12/18/2018 19:09:20 Reading Location: [address] Body Reading RoomAddendum EndsFINAL REPORT [...] MDReport Verified Date/Time: 12/17/2018 10:57:37 Reading Location: [place] [id number] CT Body Reading Room POCT-GLUCOSE [id number] 17:47:00 Test Item Value Reference Range Comments POC-GLUCOSE METER (BEAKER) 199 mg/dL 70-110 TESTED AT [address] (test weva=3907) [facility] [address] POCT-GLUCOSE [id number] 12:02:00 Test Item Value Reference Range Comments POC-GLUCOSE METER (BEAKER) 301 mg/dL 70-110 TESTED AT [address] (test okla=7698) [facility] [address] HEPATITIS C PCR, [id number] 09:48:00 Test Item Value Reference Range Comments HCV NUMERIC RESULT (BEAKER) (test iafn=2526) 885930 IU/mL <15 This test uses a Real-Time Polymerase Chain Reaction (RT-PCR) methodology and was performed using MAJOR Ampliprep/MAJOR TaqMan HCV test kit version 2.0 ( [employer]).Reportable range for this assay is 15 - 100,000, 000 IU per mL (1.18 - 8.00 Log IU/mL).POCT-GLUCOSE [id number] 09:18:00 Test Item Value Reference Range Comments POC-GLUCOSE METER (BEAKER) 284 mg/dL 70-110 TESTED AT [address] (test aruu=4446) [facility] [address] HEPATIC FUNCTION [id number] 07:08:00 Test Item Value Reference Range Comments TOTAL PROTEIN (BEAKER) (test xthl=477) 6.5 gm/dL 6.0-8.3 ALBUMIN (BEAKER) (test zepo=1057) 2.7 g/dL 3.5-5.0 BILIRUBIN TOTAL (BEAKER) (test bzzx=159) 0.9 mg/dL 0.2-1.2 BILIRUBIN DIRECT (BEAKER) (test uxzy=300) 0.5 mg/dL 0.1-0.5 ALKALINE PHOSPHATASE (BEAKER) (test cnck=445) 103 U/L 40-150 AST (SGOT) (BEAKER) (test vmqo=044) 40 U/L 5-34 ALT (SGPT) (BEAKER) (test shrl=444) 16 U/L 6-55 BASIC METABOLIC [id number] 07:08:00 Test Item Value Reference Range Comments SODIUM (BEAKER) (test 135 meq/L 136-145 rsny=320) POTASSIUM (BEAKER) (test 4.0 meq/L 3.5-5.1 eyjx=590) CHLORIDE (BEAKER) (test 105 meq/L 98-107 nbiz=498) CO2 (BEAKER) (test 25 meq/L 22-29 lztt=756) BLOOD UREA NITROGEN 9 mg/dL 7-21 (BEAKER) (test ybzt=527) CREATININE (BEAKER) (test 0.88 mg/dL 0.57-1.25 oxbv=880) GLUCOSE RANDOM (BEAKER) 175 mg/dL 70-105 (test bpgk=277) CALCIUM (BEAKER) (test 8.2 mg/dL 8.4-10.2 mdvq=628) EGFR (BEAKER) (test 90 mL/min/1.73 sq m ESTIMATED GFR IS NOT kamo=4048) ACCURATE CREATININE CLEARANCE IN PREDICTING GLOMERULAR FILTRATION RATE. ESTIMATED GFR IS NOT APPLICABLE FOR DIALYSIS PATIENTS. CBC (HEMOGRAM ONLY)2018-12-18 06:39:00 Test Item Value Reference Range Comments WHITE BLOOD CELL COUNT (BEAKER) (test fxdl=868) 6.9 K/ L 3.5-10.5 RED BLOOD CELL COUNT (BEAKER) (test cgnz=047) 4.15 M/ L 4.63-6.08 HEMOGLOBIN (BEAKER) (test djsr=744) 8.0 GM/DL 13.7-17.5 HEMATOCRIT (BEAKER) (test tvbf=494) 28.7 % 40.1-51.0 MEAN CORPUSCULAR VOLUME (BEAKER) (test ocrh=139) 69.2 fL 79.0-92.2 MEAN CORPUSCULAR HEMOGLOBIN (BEAKER) (test 19.3 pg 25.7-32.2 odwc=620) MEAN CORPUSCULAR HEMOGLOBIN CONC (BEAKER) (test 27.9 GM/DL 32.3-36.5 xkew=333) RED CELL DISTRIBUTION WIDTH (BEAKER) (test 21.3 % 11.6-14.4 ahcf=261) PLATELET COUNT (BEAKER) (test zlwz=467) 122 K/CU MM 150-450 NUCLEATED RED BLOOD CELLS (BEAKER) (test 0 /100 WBC 0-0 smlq=547) POCT-GLUCOSE [id number] 22:48:00 Test Item Value Reference Range Comments POC-GLUCOSE METER (BEAKER) 237 mg/dL 70-110 [facility]ED AT [facility] [address] [facility] (test gdze=0565) [facility] [address] ANTI-NUCLEAR ANTIBODY (WILLOW)2018-12-17 11:52:00 Test Item Value Reference Range Comments ANTI-NUCLEAR ANTIBODY (WILLOW) (BEAKER) (test Positive Negative qgnb=584) Test performed by IFA method.WILLOW TITER AND [id number] 11:52:00 Test Item Value Reference Range Comments WILLOW TITER (BEAKER) (test tsco=0001) :160 WILLOW PATTERN (BEAKER) (test nrjb=6014) Speckled [id number] 05:45:00 Test Item Value Reference Range Comments MAGNESIUM (BEAKER) (test 2.1 mg/dL 1.6-2.6 Specimen slightly hemolyzed jots=545) [id number] 05:45:00 Test Item Value Reference Range Comments PHOSPHORUS (BEAKER) (test 3.0 mg/dL 2.3-4.7 Specimen slightly hemolyzed wtnx=697) BASIC METABOLIC [id number] 05:45:00 Test Item Value Reference Range Comments SODIUM (BEAKER) (test 136 meq/L 136-145 tczx=588) POTASSIUM (BEAKER) (test 4.3 meq/L 3.5-5.1 Specimen slightly zxgp=885) hemolyzed CHLORIDE (BEAKER) (test 106 meq/L 98-107 wbno=830) CO2 (BEAKER) (test 25 meq/L 22-29 myjy=771) BLOOD UREA NITROGEN 15 mg/dL 7-21 (BEAKER) (test ddrw=562) CREATININE (BEAKER) (test 1.06 mg/dL 0.57-1.25 Specimen slightly xlde=934) hemolyzed GLUCOSE RANDOM (BEAKER) 222 mg/dL 70-105 (test isnt=810) CALCIUM (BEAKER) (test 8.1 mg/dL 8.4-10.2 eggg=971) EGFR (BEAKER) (test 73 mL/min/1.73 sq m ESTIMATED GFR IS NOT wxje=9433) ACCURATE CREATININE CLEARANCE IN PREDICTING GLOMERULAR FILTRATION RATE. ESTIMATED GFR IS NOT APPLICABLE FOR DIALYSIS PATIENTS. HEPATIC FUNCTION [id number] 05:45:00 Test Item Value Reference Range Comments TOTAL PROTEIN (BEAKER) (test 6.6 gm/dL 6.0-8.3 Specimen slightly hemolyzed kfjz=132) ALBUMIN (BEAKER) (test 2.6 g/dL 3.5-5.0 Specimen slightly hemolyzed vidb=9060) BILIRUBIN TOTAL (BEAKER) (test 0.9 mg/dL 0.2-1.2 Specimen slightly hemolyzed slko=374) BILIRUBIN DIRECT (BEAKER) (test 0.5 mg/dL 0.1-0.5 Specimen slightly hemolyzed imgf=758) ALKALINE PHOSPHATASE (BEAKER) 109 U/L 40-150 (test wzpr=556) AST (SGOT) (BEAKER) (test 53 U/L 5-34 Specimen slightly hemolyzed svty=871) ALT (SGPT) (BEAKER) (test 21 U/L 6-55 Specimen slightly hemolyzed zksa=563) CBC W/PLT COUNT & AUTO [id number] 04:48:00 Test Item Value Reference Range Comments WHITE BLOOD CELL COUNT 8.1 K/ L 3.5-10.5 (BEAKER) (test xeqa=785) RED BLOOD CELL COUNT (BEAKER) 4.33 M/ L 4.63-6.08 (test bqzd=890) HEMOGLOBIN (BEAKER) (test 8.3 GM/DL 13.7-17.5 dont=107) HEMATOCRIT (BEAKER) (test 29.9 % 40.1-51.0 cbla=423) MEAN CORPUSCULAR VOLUME 69.1 fL 79.0-92.2 (BEAKER) (test aabr=179) MEAN CORPUSCULAR HEMOGLOBIN 19.2 pg 25.7-32.2 (BEAKER) (test msdm=526) MEAN CORPUSCULAR HEMOGLOBIN 27.8 GM/DL 32.3-36.5 CONC (BEAKER) (test ifdt=479) RED CELL DISTRIBUTION WIDTH 21.1 % 11.6-14.4 (BEAKER) (test ilpa=693) PLATELET COUNT (BEAKER) (test 141 K/CU MM 150-450 fltv=958) MEAN PLATELET VOLUME (BEAKER) fL 9.4-12.4 Unable to report due to (test blsu=486) abnormal Platelet population distribution. NUCLEATED RED BLOOD CELLS 0 /100 WBC 0-0 (BEAKER) (test uuzs=634) NEUTROPHILS RELATIVE PERCENT 70 % (BEAKER) (test lsma=221) LYMPHOCYTES RELATIVE PERCENT 15 % (BEAKER) (test bgkq=042) MONOCYTES RELATIVE PERCENT 9 % (BEAKER) (test bawo=611) EOSINOPHILS RELATIVE PERCENT 6 % (BEAKER) (test cjun=790) BASOPHILS RELATIVE PERCENT 1 % (BEAKER) (test nfkt=948) NEUTROPHILS ABSOLUTE COUNT 5.60 K/ L 1.78-5.38 (BEAKER) (test ewne=843) LYMPHOCYTES ABSOLUTE COUNT 1.18 K/ L 1.32-3.57 (BEAKER) (test qrkw=255) MONOCYTES ABSOLUTE COUNT 0.72 K/ L 0.30-0.82 (BEAKER) (test tryo=714) EOSINOPHILS ABSOLUTE COUNT 0.46 K/ L 0.04-0.54 (BEAKER) (test jcmy=992) BASOPHILS ABSOLUTE COUNT 0.08 K/ L 0.01-0.08 (BEAKER) (test lzor=907) IMMATURE GRANULOCYTES-RELATIVE 0 % 0-1 PERCENT (BEAKER) (test ktup=3426) HEPATITIS C [id number] 21:49:00 Test Item Value Reference Range Comments HEPATITIS C ANTIBODY (BEAKER) (test zlpf=089) Reactive Nonreactive HEPATITIS A ANTIBODY, [id number] 21:49:00 Test Item Value Reference Range Comments HEPATITIS A IGG ANTIBODY (BEAKER) (test njph=8975) Reactive Nonreactive ALPHA FETOPROTEIN (AFP), TUMOR [id number] 21:48:00 Test Item Value Reference Range Comments ALPHA-FETOPROTEIN (BEAKER) (test iwgp=1551) 5.3 ng/mL <10.0 HEPATITIS B CORE ANTIBODY, [id number] 21:48:00 Test Item Value Reference Range Comments HEPATITIS B CORE TOTAL ANTIBODY (BEAKER) (test Nonreactive Nonreactive bfuc=127) [id number] 21:13:00 Test Item Value Reference Range Comments FERRITIN (BEAKER) (test htia=616) 17 ng/mL 5-275 [id number] 20:56:00 Test Item Value Reference Range Comments ALPHA-1 ANTITRYPSIN (BEAKER) 137.60 mg/dL 90.00-200.00 Specimen slightly hemolyzed (test tcrv=675) IRON, TIBC, % SAT. (WITHOUT FERRITIN)2018-12-16 20:55:00 Test Item Value Reference Range Comments IRON (BEAKER) (test yijf=642) 56.0 ug/dL 40.0-160.0 TOTAL IRON BINDING CAPACITY (BEAKER) (test 360 ug/dL 250-450 liep=705) IRON % SATURATION (2) (BEAKER) (test uwao=0060) 16 % 20-55 [id number] 20:52:00 Test Item Value Reference Range Comments ETHANOL (BEAKER) (test euht=978) < mg/dL <=10 HEMOGLOBIN AND [id number] 20:37:00 Test Item Value Reference Range Comments HEMOGLOBIN (BEAKER) (test udnq=640) 9.2 GM/DL 13.7-17.5 HEMATOCRIT (BEAKER) (test vjei=438) 32.6 % 40.1-51.0 U/S, ABDOMINAL, WITH [id number] 18:22:00Reason for exam:->liver cirrhosis, variceal bleed, please [...] MDReport Verified Date/Time: 12/16/2018 18:22:50 Reading Location: [facility] [id number] Ultrasound Reading Room BASI METABOLIC [id number] 12:25:00 Test Item Value Reference Range Comments SODIUM (BEAKER) (test 135 meq/L 136-145 jqss=740) POTASSIUM (BEAKER) (test 4.7 meq/L 3.5-5.1 krgj=205) CHLORIDE (BEAKER) (test 105 meq/L 98-107 jmik=792) CO2 (BEAKER) (test 25 meq/L 22-29 dfwr=818) BLOOD UREA NITROGEN 16 mg/dL 7-21 (BEAKER) (test hjrg=770) CREATININE (BEAKER) (test 1.01 mg/dL 0.57-1.25 dxga=484) GLUCOSE RANDOM (BEAKER) 162 mg/dL 70-105 (test uetn=628) CALCIUM (BEAKER) (test 8.1 mg/dL 8.4-10.2 rnzb=767) EGFR (BEAKER) (test 77 mL/min/1.73 sq m ESTIMATED GFR IS NOT pctj=8070) ACCURATE CREATININE CLEARANCE IN PREDICTING GLOMERULAR FILTRATION RATE. ESTIMATED GFR IS NOT APPLICABLE FOR DIALYSIS PATIENTS. HEMOGLOBIN AND [id number] 12:06:00 Test Item Value Reference Range Comments HEMOGLOBIN (BEAKER) (test ytiy=075) 8.6 GM/DL 13.7-17.5 HEMATOCRIT (BEAKER) (test mhlc=396) 31.4 % 40.1-51.0 HEMOGLOBIN AND [id number] 08:52:00 Test Item Value Reference Range Comments HEMOGLOBIN (BEAKER) (test hoxb=071) 8.7 GM/DL 13.7-17.5 HEMATOCRIT (BEAKER) (test dsde=878) 30.9 % 40.1-51.0 CALCIUM, [id number] 05:54:00 Test Item Value Reference Range Comments CALCIUM IONIZED (BEAKER) (test ttoi=599) 1.08 mmol/L 1.12-1.27 PH, BLOOD (BEAKER) (test vhxs=5081) 7.34 [id number] 05:50:00 Test Item Value Reference Range Comments PHOSPHORUS (BEAKER) (test quoj=998) 3.4 mg/dL 2.3-4.7 [id number] 05:50:00 Test Item Value Reference Range Comments MAGNESIUM (BEAKER) (test bugw=393) 1.6 mg/dL 1.6-2.6 BASIC METABOLIC [id number] 05:50:00 Test Item Value Reference Range Comments SODIUM (BEAKER) (test 138 meq/L 136-145 llfn=436) POTASSIUM (BEAKER) (test 5.4 meq/L 3.5-5.1 bxhx=920) CHLORIDE (BEAKER) (test 108 meq/L 98-107 nhrb=903) CO2 (BEAKER) (test 22 meq/L 22-29 tqsj=105) BLOOD UREA NITROGEN 14 mg/dL 7-21 (BEAKER) (test ihis=572) CREATININE (BEAKER) (test 1.00 mg/dL 0.57-1.25 juiv=848) GLUCOSE RANDOM (BEAKER) 144 mg/dL 70-105 (test aijt=070) CALCIUM (BEAKER) (test 8.1 mg/dL 8.4-10.2 hhtf=333) EGFR (BEAKER) (test 78 mL/min/1.73 sq m ESTIMATED GFR IS NOT rlxj=0286) ACCURATE CREATININE CLEARANCE IN PREDICTING GLOMERULAR FILTRATION RATE. ESTIMATED GFR IS NOT APPLICABLE FOR DIALYSIS PATIENTS. CBC W/PLT COUNT & AUTO [id number] 05:44:00 Test Item Value Reference Range Comments WHITE BLOOD CELL COUNT 7.2 K/ L 3.5-10.5 (BEAKER) (test aabe=256) RED BLOOD CELL COUNT (BEAKER) 4.48 M/ L 4.63-6.08 (test tcfz=388) HEMOGLOBIN (BEAKER) (test 8.7 GM/DL 13.7-17.5 oder=828) HEMATOCRIT (BEAKER) (test 31.4 % 40.1-51.0 vtmh=640) MEAN CORPUSCULAR VOLUME 70.1 fL 79.0-92.2 (BEAKER) (test kxax=186) MEAN CORPUSCULAR HEMOGLOBIN 19.4 pg 25.7-32.2 (BEAKER) (test ybyo=153) MEAN CORPUSCULAR HEMOGLOBIN 27.7 GM/DL 32.3-36.5 CONC (BEAKER) (test bgjl=386) RED CELL DISTRIBUTION WIDTH 21.0 % 11.6-14.4 (BEAKER) (test jeyu=237) PLATELET COUNT (BEAKER) (test 135 K/CU MM 150-450 clpi=010) MEAN PLATELET VOLUME (BEAKER) fL 9.4-12.4 Unable to report due to (test ggxo=410) abnormal Platelet population distribution. NUCLEATED RED BLOOD CELLS 0 /100 WBC 0-0 (BEAKER) (test cbni=587) NEUTROPHILS RELATIVE PERCENT 72 % (BEAKER) (test wuyk=099) LYMPHOCYTES RELATIVE PERCENT 12 % (BEAKER) (test msez=288) MONOCYTES RELATIVE PERCENT 11 % (BEAKER) (test tquf=867) EOSINOPHILS RELATIVE PERCENT 4 % (BEAKER) (test svlq=933) BASOPHILS RELATIVE PERCENT 1 % (BEAKER) (test ffmw=418) NEUTROPHILS ABSOLUTE COUNT 5.15 K/ L 1.78-5.38 (BEAKER) (test rngy=207) LYMPHOCYTES ABSOLUTE COUNT 0.89 K/ L 1.32-3.57 (BEAKER) (test lrac=298) MONOCYTES ABSOLUTE COUNT 0.76 K/ L 0.30-0.82 (BEAKER) (test hqju=391) EOSINOPHILS ABSOLUTE COUNT 0.29 K/ L 0.04-0.54 (BEAKER) (test mcdf=963) BASOPHILS ABSOLUTE COUNT 0.06 K/ L 0.01-0.08 (BEAKER) (test fshr=356) IMMATURE GRANULOCYTES-RELATIVE 0 % 0-1 PERCENT (BEAKER) (test kasl=8807) HEMOGLOBIN AND [id number] 00:02:00 Test Item Value Reference Range Comments HEMOGLOBIN (BEAKER) (test owfb=396) 7.8 GM/DL 13.7-17.5 HEMATOCRIT (BEAKER) (test qjor=206) 28.0 % 40.1-51.0 POCT-GLUCOSE [id number] 23:24:00 Test Item Value Reference Range Comments POC-GLUCOSE METER (BEAKER) 168 mg/dL 70-110 TESTED AT [facility] [address] [facility] (test efmp=9770) [facility] [address] RAD, CHEST, 1 VIEW, NON [id number] 23:07:00Reason for exam:->NG tube placementShould this be [...] MDReport Verified Date/Time: 12/15/2018 23:07:08 Reading Location: [address] Body Reading Room HEMOGLOBIN AND [id number] 20:12:00 Test Item Value Reference Range Comments HEMOGLOBIN (BEAKER) (test qyzy=116) 7.4 GM/DL 13.7-17.5 HEMATOCRIT (BEAKER) (test htjy=724) 26.7 % 40.1-51.0 RAD, CHEST, 1 VIEW, NON [id number] 18:43:00Reason for exam:->s/p intubationShould this be performed [...] MDReport Verified Date/Time: 12/15/2018 18:43:24 Reading Location: [address] Consult Reading Room Electronically signed by: JORGE MTZ M.D. on 06:43 PMBASI METABOLIC [id number] 14:38:00 Test Item Value Reference Range Comments SODIUM (BEAKER) (test 137 meq/L 136-145 ntwj=418) POTASSIUM (BEAKER) (test 4.8 meq/L 3.5-5.1 Specimen slightly dthd=345) hemolyzed CHLORIDE (BEAKER) (test 105 meq/L 98-107 jqmw=735) CO2 (BEAKER) (test 25 meq/L 22-29 hobs=463) BLOOD UREA NITROGEN 11 mg/dL 7-21 (BEAKER) (test vkbc=669) CREATININE (BEAKER) (test 0.84 mg/dL 0.57-1.25 Specimen slightly dqwn=805) hemolyzed GLUCOSE RANDOM (BEAKER) 114 mg/dL 70-105 (test ftnk=739) CALCIUM (BEAKER) (test 8.5 mg/dL 8.4-10.2 tmug=200) EGFR (BEAKER) (test 95 mL/min/1.73 sq m ESTIMATED GFR IS NOT vqog=5808) ACCURATE CREATININE CLEARANCE IN PREDICTING GLOMERULAR FILTRATION RATE. ESTIMATED GFR IS NOT APPLICABLE FOR DIALYSIS PATIENTS. Specimen slightly ictericCOMPREHENSIVE METABOLIC [id number] 14:38:00 Test Item Value Reference Range Comments TOTAL PROTEIN (BEAKER) 7.2 gm/dL 6.0-8.3 Specimen slightly (test ixmd=832) hemolyzed ALBUMIN (BEAKER) (test 2.9 g/dL 3.5-5.0 Specimen slightly uopd=0141) hemolyzed ALKALINE PHOSPHATASE 125 U/L 40-150 (BEAKER) (test tqbl=080) BILIRUBIN TOTAL (BEAKER) 2.5 mg/dL 0.2-1.2 Specimen slightly (test spza=926) hemolyzed SODIUM (BEAKER) (test 137 meq/L 136-145 zhub=343) POTASSIUM (BEAKER) (test 4.8 meq/L 3.5-5.1 Specimen slightly oigb=798) hemolyzed CHLORIDE (BEAKER) (test 105 meq/L 98-107 frcw=339) CO2 (BEAKER) (test 25 meq/L 22-29 ckyd=368) BLOOD UREA NITROGEN 11 mg/dL 7-21 (BEAKER) (test qahe=417) CREATININE (BEAKER) (test 0.84 mg/dL 0.57-1.25 Specimen slightly iyti=689) hemolyzed GLUCOSE RANDOM (BEAKER) 114 mg/dL 70-105 (test hkbv=044) CALCIUM (BEAKER) (test 8.5 mg/dL 8.4-10.2 dldi=740) AST (SGOT) (BEAKER) (test 56 U/L 5-34 Specimen slightly jgbx=337) hemolyzed ALT (SGPT) (BEAKER) (test 21 U/L 6-55 Specimen slightly mnms=169) hemolyzed EGFR (BEAKER) (test 95 mL/min/1.73 sq m ESTIMATED GFR IS NOT cvrq=5002) ACCURATE CREATININE CLEARANCE IN PREDICTING GLOMERULAR FILTRATION RATE. ESTIMATED GFR IS NOT APPLICABLE FOR DIALYSIS PATIENTS. Specimen slightly ictericCBC (HEMOGRAM ONLY)2018-12-15 14:35:00 Test Item Value Reference Range Comments WHITE BLOOD CELL COUNT (BEAKER) (test efvk=911) 5.6 K/ L 3.5-10.5 RED BLOOD CELL COUNT (BEAKER) (test idrv=356) 4.43 M/ L 4.63-6.08 HEMOGLOBIN (BEAKER) (test ntxp=380) 8.5 GM/DL 13.7-17.5 HEMATOCRIT (BEAKER) (test uujz=094) 30.7 % 40.1-51.0 MEAN CORPUSCULAR VOLUME (BEAKER) (test gtza=716) 69.3 fL 79.0-92.2 MEAN CORPUSCULAR HEMOGLOBIN (BEAKER) (test 19.2 pg 25.7-32.2 ppcc=250) MEAN CORPUSCULAR HEMOGLOBIN CONC (BEAKER) (test 27.7 GM/DL 32.3-36.5 dfyw=007) RED CELL DISTRIBUTION WIDTH (BEAKER) (test 20.9 % 11.6-14.4 rtbs=982) PLATELET COUNT (BEAKER) (test mchv=339) 150 K/CU MM 150-450 NUCLEATED RED BLOOD CELLS (BEAKER) (test 0 /100 WBC 0-0 bucn=536) LACTIC ACID, [id number] 14:34:00 Test Item Value Reference Range Comments LACTATE BLOOD VENOUS (2) (BEAKER) (test 1.4 mmol/L 0.5-2.2 crkq=8983) [id number] 14:34:00 Test Item Value Reference Range Comments FIBRINOGEN LEVEL (BEAKER) (test ybcp=726) 164 mg/dl 225-434 PROTHROMBIN TIME/[id number] 14:29:00 Test Item Value Reference Range Comments PROTIME (BEAKER) (test kckm=819) 17.0 seconds 11.7-14.7 INR (BEAKER) (test jpfu=941) 1.4 <=5.9 RECOMMENDED COUMADIN/WARFARIN INR THERAPY RANGESSTANDARD DOSE: 2.0 - 3.0 Includes: PROPHYLAXIS forvenous thrombosis, systemic embolization; TREATMENT for venous thrombosis and/or pulmonary embolus.HIGH RISK: Target INR is 2.5-3.5 for patients with mechanical heart valves.[id number] 14:29:00 Test Item Value Reference Range Comments PARTIAL THROMBOPLASTIN TIME (BEAKER) (test 35.0 seconds 22.5-36.0 lwpf=469) [id number] 14:29:00 Test Item Value Reference Range Comments PARTIAL THROMBOPLASTIN TIME (BEAKER) (test 38.1 seconds 22.5-36.0 xduu=499) PROTHROMBIN TIME/[id number] 14:28:00 Test Item Value Reference Range Comments PROTIME (BEAKER) (test lybq=836) 15.4 seconds 11.7-14.7 INR (BEAKER) (test migk=759) 1.2 <=5.9 RECOMMENDED COUMADIN/WARFARIN INR THERAPY RANGESSTANDARD DOSE: 2.0 - 3.0 Includes: PROPHYLAXIS forvenous thrombosis, systemic embolization; TREATMENT for venous thrombosis and/or pulmonary embolus.HIGH RISK: Target INR is 2.5-3.5 for patients with mechanical heart valves.HEMOGLOBIN AND [id number] 14 :21:00 Test Item Value Reference Range Comments HEMOGLOBIN (BEAKER) (test gfms=058) 8.5 GM/DL 13.7-17.5 HEMATOCRIT (BEAKER) (test iugc=437) 30.7 % 40.1-51.0
== END 2019-07-20 13:13 | disposition home or self-care (01) ==
LOC: ER 17:38 → INTOOBSV 21:10 → ERHOLD 21:10 → 4TH 22:11
PROVIDERS: ADMIT Hospitalist; ATTEND Internal Medicine
PROC: 0T9B70Z Drainage of Bladder with Drainage Device, Via Natural or Artificial Opening (ICD-10-PCS; principal; 2019-07-18)
DX: K72.90 Hepatic failure, unspecified without coma (principal); K70.30 Alcoholic cirrhosis of liver without ascites; E11.9 Type 2 diabetes mellitus without complications; B18.2 Chronic viral hepatitis C; N17.9 Acute kidney failure, unspecified; I10 Essential (primary) hypertension; I85.00 Esophageal varices without bleeding
CPT/HCPCS: 96361 ×2; 93005; 87040 ×2; 85025 ×3; 80048 ×2; 36415 ×2; 82140 ×3; 83735 ×2; 82947 ×12; 84100; 85610 ×2; 80076; 83605 ×2; 85730 ×2; 83036; 84484; 83690; 80053; 84145; 70450; 71045; 51702 ×2; 96375; 96374; 99285; J1940; J1815; C9113; J2270; J7030 ×4; J2405 ×2; G0378 ×3; 81003; 81015; 96365; 96366

== ENCOUNTER 2019-07-28 18:09 | Inpatient (IN) | payer MEDICAID ==
--- NOTE | 2019-07-28 18:57 | ER ---
Nurse's Notes [facility] Name: Janusz Morris Jr Age: 54 yrs Sex: Male : 1965 Arrival Date: 07/28/2019 Time: 18:13 Bed 4 Private MD: Diagnosis: Altered mental status, unspecified;Type 2 diabetes mellitus;Unspecified cirrhosis of liver;Encephalopathy, unspecified;Anemia, unspecified;Unspecified kidney failure-insufficency Presentation: 07/28 18:21 Presenting complaint: sister reports that patient has a history of liver cirrhosis and ss believes his ammonia levels are elevated today. Patient has had AMS over the past two days that got much worse after breakfast this AM. Sister states, "I don't know what I'm doing wrong. I give him his medication, but it seems like every two weeks, he keeps going back down.". Transition of care: patient was not received from another setting of care. Onset of symptoms was June 25, 2019. Risk Assessment: Do you want to hurt yourself or someone else? Patient reports no desire to harm self or others. Initial Sepsis Screen: Does the patient meet any 2 criteria? No. Patient's initial sepsis screen is negative. Does the patient have a suspected source of infection? No. Patient's initial sepsis screen is negative. Care prior to arrival: None. 18:21 Acuity: AJ 3 ss 18:21 Method Of Arrival: Ambulatory ss Historical: - Allergies: 18:24 No Known Allergies; ss - Home Meds: 20:48 atorvastatin 40 mg Oral tab 1 tab once daily [Active]; furosemide 20 mg Oral tab 1 tab lp1 once daily [Active]; glipizide 10 mg Oral tab 1 tab once daily [Active]; lactulose 10 gram/15 mL Oral soln 60 mL 3 times per day [Active]; metformin 1,000 mg Oral tab 1 tab 2 times per day [Active]; pantoprazole 40 mg Oral TbEC 1 tab 2 times per day [Active]; propranolol 20 mg Oral tab 1 tab twice a day [Active]; spironolactone 50 mg Oral tab 1 tab once daily [Active]; - PMHx: 18:24 Alcoholism; Cirrhosis; Diabetes - NIDDM; esophageal varices; GI Bleed; Hypertension; ss - Immunization history:: Adult Immunizations up to date. - Social history:: Smoking status: Patient/guardian denies using tobacco. - Ebola Screening: : Patient denies exposure to infectious person Patient denies travel to an Ebola-affected area in the 21 days before illness onset. Screenin:30 Abuse screen: Denies threats or abuse. Denies injuries from another. Nutritional hb screening: No deficits noted. Tuberculosis screening: No symptoms or risk factors identified. Fall Risk Total Castellano Fall Scale indicates Low Risk Score (25-44 pts). Fall prevention measures have been instituted. Side Rails Up X 2 Frequent Obs/Assesments occuring As available Patient and Family Educated on Fall Prevention Program and strategies. Assessment: 18:25 General: Appears in no apparent distress. Behavior is calm, cooperative. Pain: Denies hb pain. Neuro: Level of Consciousness is obeys commands, lethargic, Oriented to person, place. Cardiovascular: Capillary refill < 3 seconds Patient's skin is warm and dry. Respiratory: Airway is patent Respiratory effort is even, unlabored, Respiratory pattern is regular, symmetrical. GI: Abdomen is distended, Bowel sounds present X 4 quads. Abd is soft and non tender X 4 quads. : No signs and/or symptoms were reported regarding the genitourinary system. EENT: No signs and/or symptoms were reported regarding the EENT system. Derm: Skin is intact, is healthy with good turgor. Musculoskeletal: No signs and/or symptoms reported regarding the musculoskeletal system. 18:37 Reassessment: Pt to CT. hb 18:52 Reassessment: Pt returned from CT. hb 19:30 Reassessment: Patient appears in no apparent distress at this time. General: Appears in lp1 no apparent distress. Behavior is calm. Neuro: Level of Consciousness is confused, Oriented to person. Cardiovascular: Patient's skin is warm and dry. Respiratory: Respiratory effort is even, unlabored, Breath sounds are clear bilaterally. GI: Abdomen is non-distended. : No signs and/or symptoms were reported regarding the genitourinary system. Derm: Skin is pink, warm \\T\\ dry. 20:45 Reassessment: No changes from previously documented assessment. Family at bedside, lp1 updated on plan of care. Vital Signs: 18:20 BP 140 / 80; Pulse 84; Resp 18; Temp 98.4(TE); Pulse Ox 100% on R/A; Weight 78.93 kg; ss Height 5 ft. 2 in. (157.48 cm); Pain 0/10; 19:30 BP 141 / 69; Pulse 73; Resp 14; Pulse Ox 100% on R/A; lp1 20:00 BP 134 / 69; Pulse 75; Resp 19; Pulse Ox 100% on R/A; lp1 20:30 BP 129 / 65; Pulse 72; Resp 13; Pulse Ox 100% on R/A; lp1 18:20 Body Mass Index 31.82 (78.93 kg, 157.48 cm) ED Course: 18:13 Patient arrived in ED. ss 18:20 Arm band placed on right wrist. 18:23 Triage completed. 18:25 Patient has correct armband on for positive identification. Bed in low position. Call hb light in reach. Side rails up X2. 18:33 Jorge Lindsey MD is Attending Physician. amanuel 18:53 CT Head Brain wo Cont In Process Unspecified. EDMS 18:55 Fei Jeffers MD is Hospitalizing Provider. [facility] 19:03 XRAY Chest (1 view) In Process Unspecified. EDMS 19:07 Initial lab(s) drawn, by me, sent to lab. Missed attempt(s): 22 gauge in right dh3 antecubital area. Bleeding controlled, band aid applied, catheter tip intact. 19:27 Anupama Nieves, RN is Primary Nurse. lp1 19:27 Inserted saline lock: 22 gauge in right forearm, using aseptic technique. lp1 20:19 No provider procedures requiring assistance completed. Patient admitted, IV remains in lp1 place. Administered Medications: 19:11 Drug: Lactulose 30 grams Volume: 45 ml; Route: PO; hb 20:54 Follow up: Response: No adverse reaction lp1 19:35 Drug: NS 0.9% 1000 ml Route: IV; Rate: 75 ml/hr; Site: right forearm; lp1 20:54 Follow up: IV Status: Infusion continued upon admission lp1 19:35 Drug: Thiamine 100 mg Route: IV; Rate: bolus; Site: right forearm; lp1 19:58 Follow up: Response: No adverse reaction; IV Status: Completed infusion; IV Intake: [id number] 19:54 CANCELLED (Duplicate Order): Pepcid 20 mg IVP once amanuel 20:18 Drug: ProTONIX 40 mg Route: IVP; Site: right forearm; lp1 20:46 Follow up: Response: No adverse reaction lp1 Intake: 19:58 IV: 50ml; Total: 50ml. lp1 Outcome: 18:57 Decision to Hospitalize by Provider. [facility] 20:19 Condition: stable lp1 20:19 Instructed on the need for admit. 20:53 Patient left the ED. lp1 20:54 Admitted to Tele accompanied by nurse, via stretcher, room 431, with chart, Report lp1 called to JADA Gilbert Signatures: Dispatcher [employer] EDNJ Jorge Lindsey MD MD cha Smirch, Shelby, RN RN ss Pena, Laura, RN RN 1 Kenia North RN RN hb Herrera, Deanna 3 Corrections: (The following items were deleted from the chart) 18:53 18:32 Reassessment: Pt to CT hb hb
--- NOTE | 2019-07-28 18:58 | EDPHYS ---
Physician Documentation [facility] Name: Janusz Morris Jr Age: 54 yrs Sex: Male : 1965 Arrival Date: 07/28/2019 Time: 18:13 Bed 4 Private MD: EPIFANIO Physician Jorge Lindsey HPI: 07/28 18:44 This 54 yrs old Male presents to ER via Ambulatory with complaints of Altered amanuel Mental Status. 18:44 The patient presents with confusion. Onset: The symptoms/episode began/occurred 2 amanuel day(s) ago. Possible causes: hepatic encephlopathy. Associated signs and symptoms: The patient has no apparent associated signs or symptoms. Patient's baseline: Neuro: alert and fully oriented. The patient has experienced similar episodes in the past, multiple times. Historical: - Allergies: 18:24 No Known Allergies; ss - Home Meds: 20:48 atorvastatin 40 mg Oral tab 1 tab once daily [Active]; furosemide 20 mg Oral tab 1 tab lp1 once daily [Active]; glipizide 10 mg Oral tab 1 tab once daily [Active]; lactulose 10 gram/15 mL Oral soln 60 mL 3 times per day [Active]; metformin 1,000 mg Oral tab 1 tab 2 times per day [Active]; pantoprazole 40 mg Oral TbEC 1 tab 2 times per day [Active]; propranolol 20 mg Oral tab 1 tab twice a day [Active]; spironolactone 50 mg Oral tab 1 tab once daily [Active]; - PMHx: 18:24 Alcoholism; Cirrhosis; Diabetes - NIDDM; esophageal varices; GI Bleed; Hypertension; ss - Immunization history:: Adult Immunizations up to date. - Social history:: Smoking status: Patient/guardian denies using tobacco. - Ebola Screening: : Patient denies exposure to infectious person Patient denies travel to an Ebola-affected area in the 21 days before illness onset. ROS: 18:46 Constitutional: Negative for fever, chills, and weight loss, Eyes: Negative for injury, amanuel pain, redness, and discharge, ENT: Negative for injury, pain, and discharge, Neck: Negative for injury, pain, and swelling, Cardiovascular: Negative for chest pain, palpitations, and edema, Respiratory: Negative for shortness of breath, cough, wheezing, and pleuritic chest pain, Abdomen/GI: Negative for abdominal pain, nausea, vomiting, diarrhea, and constipation, Back: Negative for injury and pain, : Negative for injury, bleeding, discharge, and swelling, MS/Extremity: Negative for injury and deformity, Skin: Negative for injury, rash, and discoloration, Psych: Negative for depression, anxiety, suicide ideation, homicidal ideation, and hallucinations, Allergy/Immunology: Negative for hives, rash, and allergies, Endocrine: Negative for neck swelling, polydipsia, polyuria, polyphagia, and marked weight changes, Hematologic/Lymphatic: Negative for swollen nodes, abnormal bleeding, and unusual bruising. 18:46 Neuro: Positive for Exam: 18:49 Constitutional: This is a well developed, well nourished patient who is awake, alert, amanuel and in no acute distress. Head/Face: Normocephalic, atraumatic. Eyes: Pupils equal round and reactive to light, extra-ocular motions intact. Lids and lashes normal. Conjunctiva and sclera are non-icteric and not injected. Cornea within normal limits. Periorbital areas with no swelling, redness, or edema. ENT: Nares patent. No nasal discharge, no septal abnormalities noted. Tympanic membranes are normal and external auditory canals are clear. Oropharynx with no redness, swelling, or masses, exudates, or evidence of obstruction, uvula midline. Mucous membranes moist. Neck: Trachea midline, no thyromegaly or masses palpated, and no cervical lymphadenopathy. Supple, full range of motion without nuchal rigidity, or vertebral point tenderness. No Meningismus. Chest/axilla: Normal chest wall appearance and motion. Nontender with no deformity. No lesions are appreciated. Cardiovascular: Regular rate and rhythm with a normal S1 and S2. No gallops, murmurs, or rubs. Normal PMI, no JVD. No pulse deficits. Respiratory: Lungs have equal breath sounds bilaterally, clear to auscultation and percussion. No rales, rhonchi or wheezes noted. No increased work of breathing, no retractions or nasal flaring. Abdomen/GI: Soft, non-tender, with normal bowel sounds. No distension or tympany. No guarding or rebound. No evidence of tenderness throughout. Back: No spinal tenderness. No costovertebral tenderness. Full range of motion. Male : Normal genitalia with no discharge or lesions. Skin: Warm, dry with normal turgor. Normal color with no rashes, no lesions, and no evidence of cellulitis. MS/ Extremity: Pulses equal, no cyanosis. Neurovascular intact. Full, normal range of motion. Psych: Awake, alert, with orientation to person, place and time. Behavior, mood, and affect are within normal limits. 18:49 Neuro: Orientation: appropriate for stated age, Mentation: slow to respond, Memory: is normal, appropriate for stated age, Cerebellar function: is grossly normal based on the patient's age, no acute changes, Motor: is grossly normal based on the patient's age, no acute changes, moves all fours, Gait: not tested. Deep tendon reflexes are 2+ (normal) in the bilateral brachioradialis, bicep, tricep and patellar and Achilles tendons. Vital Signs: 18:20 BP 140 / 80; Pulse 84; Resp 18; Temp 98.4(TE); Pulse Ox 100% on R/A; Weight 78.93 kg; ss Height 5 ft. 2 in. (157.48 cm); Pain 0/10; 19:30 BP 141 / 69; Pulse 73; Resp 14; Pulse Ox 100% on R/A; lp1 20:00 BP 134 / 69; Pulse 75; Resp 19; Pulse Ox 100% on R/A; lp1 20:30 BP 129 / 65; Pulse 72; Resp 13; Pulse Ox 100% on R/A; lp1 18:20 Body Mass Index 31.82 (78.93 kg, 157.48 cm) MDM: 18:33 Patient medically screened. [facility] 18:49 Data reviewed: vital signs, nurses notes, lab test result(s), EKG, radiologic studies, [facility] CT scan, plain films. 07/28 18:35 Order name: Basic Metabolic Panel; Complete Time: 19:54 [facility] 07/28 18:35 Order name: CBC with Diff [facility] 07/28 18:35 Order name: LFT's; Complete Time: 19:54 [facility] 07/28 18:35 Order name: Magnesium; Complete Time: 19:54 [facility] 07/28 18:35 Order name: NT PRO-BNP; Complete Time: 19:54 [facility] 07/28 18:35 Order name: PT-INR; Complete Time: 20:18 [facility] 07/28 18:35 Order name: Troponin (emerg Dept Use Only); Complete Time: 19:54 [facility] 07/28 18:35 Order name: Urine Culture [facility] 07/28 18:35 Order name: AMMONIA; Complete Time: 19:54 [facility] 07/28 18:35 Order name: Lipase; Complete Time: 19:54 [facility] 07/28 19:32 Order name: CBC with Automated Diff [facility] 07/28 19:32 Order name: CBC with Automated Diff [facility] 07/28 19:32 Order name: Comprehensive Metabolic Panel [facility] 07/28 19:32 Order name: Comprehensive Metabolic Panel [facility] 07/28 18:35 Order name: XRAY Chest (1 view); Complete Time: 20:18 [facility] 07/28 18:35 Order name: EKG; Complete Time: 18:36 [facility] 07/28 18:35 Order name: Cardiac monitoring; Complete Time: 18:36 [facility] 07/28 18:35 Order name: EKG - Nurse/Tech; Complete Time: 18:36 [facility] 07/28 18:35 Order name: IV Saline Lock; Complete Time: 19:27 [facility] 07/28 18:35 Order name: Labs collected and sent; Complete Time: 19:24 [facility] 07/28 18:35 Order name: O2 Per Protocol; Complete Time: 18:36 [facility] 07/28 18:35 Order name: CT Head Brain wo Cont; Complete Time: 19:35 [facility] 07/28 19:32 Order name: CONS Pharmacy Consult [facility] 07/28 19:32 Order name: Regular [facility] 07/28 19:55 Order name: Type And Screen [facility] 07/28 18:35 Order name: O2 Sat Monitoring; Complete Time: 18:36 [facility] 07/28 18:35 Order name: Urine Dipstick-Ancillary (obtain specimen); Complete Time: 19:24 [facility] Administered Medications: 19:11 Drug: Lactulose 30 grams Volume: 45 ml; Route: PO; hb 20:54 Follow up: Response: No adverse reaction lp1 19:35 Drug: NS 0.9% 1000 ml Route: IV; Rate: 75 ml/hr; Site: right forearm; lp1 20:54 Follow up: IV Status: Infusion continued upon admission lp1 19:35 Drug: Thiamine 100 mg Route: IV; Rate: bolus; Site: right forearm; lp1 19:58 Follow up: Response: No adverse reaction; IV Status: Completed infusion; IV Intake: [id number] 19:54 CANCELLED (Duplicate Order): Pepcid 20 mg IVP once [facility] 20:18 Drug: ProTONIX 40 mg Route: IVP; Site: right forearm; lp1 20:46 Follow up: Response: No adverse reaction lp1 Disposition: 07/28/19 18:57 Hospitalization ordered by Fei Jeffers for Inpatient Admission. Preliminary diagnosis are Altered mental status, unspecified, Type 2 diabetes mellitus, Unspecified cirrhosis of liver, Encephalopathy, unspecified, Anemia, unspecified, Unspecified kidney failure - insufficency. - Bed requested for Telemetry/MedSurg (Inpatient). - Status is Inpatient Admission. lp1 - Condition is Fair. - Problem is new. - Symptoms have improved. UTI on Admission? No Signatures: Dispatcher [employer] EDMS Jorge Lindsey MD MD cha Smirch, Shelby, RN RN Anupama Nieves RN RN [facility] Cande Pack RN RN Kenia North RN RN Corrections: (The following items were deleted from the chart) 19:53 18:57 Hospitalization Ordered by Fei Jeffers MD for Inpatient Admission. Preliminary cg diagnosis is Altered mental status, unspecified; Type 2 diabetes mellitus; Unspecified cirrhosis of liver; Encephalopathy, unspecified. Bed requested for Telemetry/MedSurg (Inpatient). Status is Inpatient Admission. Condition is Fair. Problem is new. Symptoms have improved. UTI on Admission? No. [facility] 19:54 19:54 Pepcid 20 mg IVP once ordered. [facility] 19:56 19:53 07/28/2019 18:57 Hospitalization Ordered by Fei Jeffers MD for Inpatient [facility] Admission. Preliminary diagnosis is Altered mental status, unspecified; Type 2 diabetes mellitus; Unspecified cirrhosis of liver; Encephalopathy, unspecified. Bed requested for Telemetry/MedSurg (Inpatient). Status is Inpatient Admission. Condition is Fair. Problem is new. Symptoms have improved. UTI on Admission? No. cg 20:53 19:56 07/28/2019 18:57 Hospitalization Ordered by Fei Jeffers MD for Inpatient lp1 Admission. Preliminary diagnosis is Altered mental status, unspecified; Type 2 diabetes mellitus; Unspecified cirrhosis of liver; Encephalopathy, unspecified; Anemia, unspecified; Unspecified kidney failure - insufficency. Bed requested for Telemetry/MedSurg (Inpatient). Status is Inpatient Admission. Condition is Fair. Problem is new. Symptoms have improved. UTI on Admission? No. amanuel
[2019-07-28] MEDS ORDERED: THIAMINE 200 MG/2 ML INJ ONE ×2 (19:01→19:33)
[2019-07-28] MEDS ORDERED: NA CHLORIDE 0.9% 1,000 ML ONE (19:01)
--- NOTE | 2019-07-28 19:01 | RAD REPORT ---
EXAM DESCRIPTION: CT - Head Brain Wo Cont - 07/28/2019 6:51 pm CLINICAL HISTORY: Transient alteration of awareness, history of cirrhosis, hypertension COMPARISON: July 18 TECHNIQUE: Axial 5 mm thick images of the head were obtained without IV contrast. All CT scans are performed using dose optimization technique as appropriate and may include automated exposure control or mA/KV adjustment according to patient size. FINDINGS: No intracranial hemorrhage, mass, edema or shift of mid-line structures. No acute infarcti on changes seen. No abnormal extra-axial fluid collections. Ventricles are normal. Mastoid air cells and visualized portions of the paranasal sinuses are clear. No acute bony findings. IMPRESSION: Negative non-contrast CT head examination. No significant change comparison.
[2019-07-28] MEDS ORDERED: LACTULOSE 20 GM/30 ML UCUP ONE (19:02)
[2019-07-28] MEDS ORDERED: NA CHLORIDE 0.9% 50 ML IV ONE (19:34)
[2019-07-28 19:41] LABS: Albumin 3.3 g/dL (3.4-5.0); Bilirubin Direct 0.3 mg/dL (0-0.2); Bilirubin Total 0.9 mg/dL (0.2-1.0); Potassium 4.7 mmol/L (3.5-5.1); Protein, Total 7.7 g/dL (6.4-8.2); Troponin (Emerg Dept Use Only) 0.06 ng/mL (0.0-0.045)
[2019-07-28 19:46] LABS: Absolute Lymphocytes (CBC) 1.8 K/uL (0.7-4.9); Basophils % 0.9 % (0-1.3); Hematocrit 27.4 % (39.6-49.0); Lymphocytes % 17.4 % (15.3-44.8); MPV 9.1 fL (7.6-11.3); RBC Red Blood Cell Count 4.32 M/uL (4.33-5.43)
[2019-07-28 19:53] LABS: Protime INR 1.14
--- NOTE | 2019-07-28 19:59 | RAD REPORT ---
EXAM DESCRIPTION: RAD - Chest Single View - 07/28/2019 7:02 pm CLINICAL HISTORY: Abdominal pain, abdominal distention COMPARISON: July 18 TECHNIQUE: AP portable chest image was obtained 1855 hours . FINDINGS: Lungs are clear. Heart and vasculature are normal. No measurable pleural effusion and no p neumothorax. No acute bony abnormality seen. No acute aortic findings suspected. IMPRESSION: No acute cardiopulmonary process. No significant interval change.
[2019-07-28] MEDS: NA CHLORIDE 0.9% 1,000 ML IV SCH (20:00)
[2019-07-28] MEDS: LACTULOSE 20 GM/30 ML UCUP PO SCH (20:00)
[2019-07-28] MEDS ORDERED: PANTOPRAZOLE 40 MG INJ ONE (20:11)
[2019-07-28] MEDS: Rifaximin 550 MG Tab PO SCH (21:00)
[2019-07-28 21:13] LABS: Blood Morphology Comment NOTED (NOT SEEN); Hypochromasia 3+; Platelet Estimate ADEQ; Urine White Blood Cell Casts OK
[2019-07-28 21:31] VITALS: BMI 30.9
[2019-07-29] MEDS: LACTULOSE 20 GM/30 ML UCUP PO SCH ×5 (02:02→21:40)
[2019-07-29] MEDS: NA CHLORIDE 0.9% 1,000 ML IV SCH (03:27)
[2019-07-29] MEDS: ONDANSETRON 4 MG/2 ML VIAL IV PRN ×2 (03:46→11:02)
[2019-07-29 04:26] LABS: Absolute Lymphocytes (CBC) 1.8 K/uL (0.7-4.9); Basophils % 1.2 % (0-1.3); Hematocrit 24.2 % (39.6-49.0); Lymphocytes % 25.9 % (15.3-44.8); RBC Red Blood Cell Count 3.83 M/uL (4.33-5.43)
[2019-07-29 04:28] LABS: Urine Appearance CLEAR; Urine Bilirubin NEGATIVE (NEG); Urine Blood NEGATIVE (NEG); Urine Color YELLOW; Urine Glucose 3+ (NEG); Urine Protein TRACE (NEG); Urine pH 6.5 (5.0-7.0)
[2019-07-29 04:33] LABS: Urine Microscopic Reflex ORDER UMIC
[2019-07-29 04:35] LABS: Albumin 2.9 g/dL (3.4-5.0); Bilirubin Total 0.8 mg/dL (0.2-1.0); Protein, Total 6.7 g/dL (6.4-8.2)
[2019-07-29 05:11] LABS: Urine Culture Reflex Order NOT NEEDED
[2019-07-29 05:12] LABS: Urine Bacteria <20 /HPF (NONE SEEN); Urine RBC <5 /HPF (NONE SEEN)
[2019-07-29 05:56] LABS: Hematocrit 23.2 % (39.6-49.0)
[2019-07-29] MEDS ORDERED: PANTOPRAZOLE 40 MG INJ IVP ONE (06:25)
[2019-07-29] MEDS ORDERED: SODIUM CHLORIDE 0.9% 10ML INJ IV PRN (06:25)
[2019-07-29] MEDS ORDERED: OCTREOTIDE ACETATE 100 MCG/ML IV ONE (06:26)
[2019-07-29] MEDS ORDERED: PANTOPRAZOLE INJ 80 MG in NA CHLORIDE 0.9% 250 ML IV SCH (07:00)
--- NOTE | 2019-07-29 07:11 | P.HP ---
Certification for Inpatient Patient admitted to: Inpatient With expected LOS: >2 Midnights Patient will require the following post-hospital care: None Practitioner: I am a practitioner with admitting privileges, knowledge of patient current condition, hospital course, and medical plan of care. Services: Services provided to patient in accordance with Admission requirements found in Title 42 Section 412.3 of the Code of Federal Regulations Patient History Date of Service: 07/28/19 Reason for admission: Hepatic encephalopathy/history of portal hypertension status post TIPS History of Present Illness: Patient is a 54-year-old gentleman who has a history of alcohol abuse and hepatitis-C with advanced cirrhosis. Patient develop portal hypertension and secondary esophageal varices as well as splenomegaly. He had required a TIPS procedure. He was in the hospital about a week ago with hepatic encephalopathy. He was given lactulose and his symptoms resolved. Since being at home he takes his lactulose twice a day. The family member who is with him his unsure as to how much bowel movements he is having daily. He came into the emergency room with elevated ammonia level and he was obtunded. I was not able to obtain much history from him. I have taking care of him in the past and I notice history fairly well. He is anemic and will monitor his hemoglobin. There is no history of recent GI bleeding. Will get GI consultation if patient' s symptoms do not improve. Gentle hydration as well while he is in the hospital and if he is remaining obtunded and not eating appropriately. Once he is more awake we can Hep-Lock his IV. According to the family member there were also scheduled to see Cardiology this week for clearance for EGD and esophageal banding. They are requesting Cardiology consultation while in the hospital. Will discuss with patient when he is more awake and get his symptoms prior to obtaining Cardiology consultation. Allergies No Known Allergies Allergy (Verified 07/28/19 21:59) Home Medications: Furosemide [Lasix] 20 mg PO DAILY 08/10/18 Pantoprazole [Protonix Tab*] 40 mg PO BID 08/10/18 Spironolactone [Aldactone*] 50 mg PO DAILY 08/10/18 Atorvastatin Calcium [Lipitor] 40 mg PO BEDTIME 05/23/19 Insulin Degludec [Tresiba Flextouch U-200] 36 units SQ BEDTIME 06/13/19 Carvedilol 6.25 mg PO BID 07/18/19 Insulin -Regular Human [Novolin -R*] See Protocol SQ ACHS 30 Days #1 vial Lactulose [Cephulac*] 30 ml PO BID 30 Days #1800 ucup 07/20/19 - Past Medical/Surgical History Has patient received pneumonia vaccine in the past: No Diabetic: Yes -: Liver cirrhosis -: Esophageal varices -: GI bleed -: Insulin dependent Diabetes mellitus -: Hypertension -: Liver Cancer -: Banding ligation -: Heart cath no stent - Family History Father Medical History: Heart disease, Lung disease, Diabetes Mother Medical History: Heart disease, Diabetes Sister Medical History: Diabetes - Social History Smoking Status: Former smoker Alcohol use: Yes CD- Drugs: No Place of Residence: Home Review of Systems 10-point ROS is otherwise unremarkable Physical Examination - Vital Signs Temperature: 98.6 F Blood Pressure: 132/63 Pulse: 77 Respirations: 16 Pulse Ox (%): 100 - Physical Exam General: In no apparent distress, Confused, Other (Lethargic) HEENT: Atraumatic, PERRLA, Mucous membr. moist/pink, EOMI, Sclerae nonicteric Neck: Supple, 2+ carotid pulse no bruit, No LAD, Without JVD or thyroid abnormality Respiratory: Clear to auscultation bilaterally, Normal air movement Cardiovascular: Regular rate/rhythm, Normal S1 S2 Gastrointestinal: Normal bowel sounds, Soft and benign, Non-distended, No tenderness Musculoskeletal: No clubbing, No swelling, No tenderness Integumentary: No rashes Neurological: Normal tone, Sensation intact, Cranial nerves 3-12 intact, Other ( Patient is lethargic and altered at this time. He is not able to follow any directions.) Lymphatics: No axilla or inguinal lymphadenopathy - Studies Laboratory Data (last 24 hrs) 07/28/19 19:05: PT 13.4 H, INR 1.14 07/28/19 19:05: WBC 10.1 D, Hgb 8.6 L, Hct 27.4 L, Plt Count 131 L D 07/28/19 19:05: Sodium 139, Potassium 4.7, BUN 28 H, Creatinine 1.60 H, Glucose 241 H, Magnesium 2.0, Total Bilirubin 0.9, AST 56 H, ALT 47, Alkaline Phosphatase 211 H, Lipase 277 Assessment & Plan - Problems (Diagnosis) (1) Hepatic encephalopathy Current Visit: No Status: Acute (2) Diabetes mellitus Onset Date: 08/12/18 Current Visit: No Status: Chronic Qualifiers: Diabetes mellitus type: type 2 Diabetes mellitus terminal press operator insulin use: without fpc use Diabetes mellitus complication status: without complication Qualified Code(s): E11.9 - Type 2 diabetes mellitus without complications (3) Esophageal varices Onset Date: 08/12/18 Current Visit: No Status: Chronic Qualifiers: Esophageal varices type: unspecified type Esophageal varices bleeding: without bleeding Qualified Code(s): I85.00 - Esophageal varices without bleeding (4) HTN (hypertension) Current Visit: No Status: Chronic Qualifiers: Hypertension type: essential hypertension Qualified Code(s): I10 - Essential (primary) hypertension (5) Hepatitis C virus infection Current Visit: No Status: Chronic Qualifiers: Viral hepatitis chronicity: chronic (6) Liver cirrhosis Onset Date: 08/12/18 Current Visit: No Status: Chronic Qualifiers: Hepatic cirrhosis type: alcoholic cirrhosis Ascites presence: without ascites Qualified Code(s): K70.30 - Alcoholic cirrhosis of liver without ascites (7) S/P TIPS (transjugular intrahepatic portosystemic shunt) Current Visit: No Status: Chronic (8) Anemia Current Visit: Yes Status: Acute Qualifiers: Anemia type: iron deficiency - Plan Plan: 1. Continue with IV hydration and PPI drip along with octreotide drip 2. Lactulose and Xifaxan; monitor ammonia level closely 3. Neuro checks q.2 hr 4. NPO 5. GI consultation 6. Serial H&H, and we will monitor LFTs and lipase along with electrolytes. 7. Family requesting cardiac clearance. May get Cardiology to see the patient. Recent echocardiogram was completely normal. No recent chest pain. 8. GI and DVT prophylaxis Discharge Plan: Home Plan to discharge in: Greater than 2 days - Advance Directives Does patient have a Living Will: Yes Does patient have a Durable POA for Healthcare: Yes - Code Status/Comfort Care Code Status Assessed: Yes Code Status: Full Code Critical Care: No Time Spent Managing PTS Care (In Minutes): 45
--- NOTE | 2019-07-29 08:24 | RAD REPORT ---
EXAM DESCRIPTION: Stephon Single View07/29/2019 7:40 am CLINICAL HISTORY: Cough COMPARISON: July 28 FINDINGS: The lungs appear clear of acute infiltrate. The heart is normal size IMPRESSION: No acute abnormalities displayed
[2019-07-29] MEDS: OCTREOTIDE 500 MCG in NA CHLORIDE 0.9% 500 ML IV SCH ×2 (08:55→18:25)
[2019-07-29] MEDS: Rifaximin 550 MG Tab PO SCH ×3 (09:00→21:35)
--- NOTE | 2019-07-29 12:21 | EKG ---
Test Date: 2019-07-28 Test Time: 18:19:52 Cutter And Edge Trimmer: SWG MEASUREMENT RESULTS: Intervals: Rate: 82 RI: 142 QRSD: 68 QT: 364 QTc: 425 [place]: P: 37 RI: 142 QRS: 25 T: 62 INTERPRETIVE STATEMENTS: Normal sinus rhythm Normal ECG Compared to ECG 07/18/2019 18:32:10 Left ventricular hypertrophy no longer present Electronically Signed On 07-29-19 12:19:31 FUR POLISHER by Gunnar Talley
[2019-07-29] MEDS ORDERED: D50W 25 GM/50 ML SYRINGE/VIAL IV PRN (14:40)
[2019-07-29] MEDS ORDERED: GLUCAGON 1 MG/VIAL IM PRN (14:40)
[2019-07-29] MEDS: INSULIN -REGULAR HUMAN 50 UNIT/0.5 ML ML SQ SCH ×3 (14:52→21:41)
--- NOTE | 2019-07-29 15:22 | CON ---
Date of Consultation: 07/29/2019 Reason For Consultation: Altered mental status, hepatic encephalopathy. I saw the patient on 2018, for cardiac clearance for endoscopy. History Of Present Illness: Mr. Morris is 54, has a history of diabetes, hypertension, dyslipidemia, alcohol abuse, cirrhosis, esophageal varices, GI bleed. He came in with altered mental status secon abdifatah to hepatic encephalopathy. Had elevated ammonia level. Troponin was 0.06. Glucose was 238. H is hemoglobin was 7.5. No chest pain, syncope, palpitations, PND, orthopnea, or pedal edema reported . Had some nausea, vomiting, and diaphoresis. Allergies: NONE. Review of Systems: Negative. Social History: Positive for alcohol. Family History: Noncontributory. Medications: At home include Coreg, Lipitor, Lasix, insulin, Aldactone, Protonix, lactulose. Physical Examination: Vital Signs: Stable. Afebrile. HEENT: Negative. Neck: Supple. No bruit. Chest: Clear. Cardiac: Reveals a regular rhythm and rate. No murmurs, gallops, or rubs. Abdomen: Nontender, nondistended. Positive bowel sounds. Positive hepatosplenomegaly. Extremities: Reveal 1+ edema. Diagnostic Data: As stated earlier. EKG is normal. Chest x-ray is normal. Echo was normal last mo nth. Head CT was negative. Impression And Plan: 1.Patient with multiple cardiac risk factors including hypertension, diabetes, dyslipidemia. He has a normal EKG. No cardiac symptoms. Normal echocardiogram in May 2019. He is cleared for end oscopy. 2.Hepatic encephalopathy with esophageal varices and bleed, that is being followed by Dr. Jeffers [facility]. 3.Diabetes. 4.Alcohol abuse. 5.Hypertension. 6.Dyslipidemia. 7.Elevated troponin secondary to anemia and overall poor functional status. I will continue to foll ow Mr. Morris postoperatively. NB/MODL Voice ID: [id number] Report ID: [id number]
[2019-07-29] MEDS ORDERED: BISACODYL 10 MG RECTAL SUPP PR ONE (17:00)
--- NOTE | 2019-07-29 17:50 | P.PN ---
Subjective Date of Service: 07/29/19 Chief Complaint: Hepatic encephalopathy/history of portal hypertension status post TIPS It appears patient has constipation. His mental status has improved and patient is not communicating meaningfully. He is complaining of abdominal pain. Noted drop in hemoglobin from 8.6 to 7.5 Physical Examination - Vital Signs Temperature: 98.1 F Blood Pressure: 147/77 Pulse: 68 Respirations: 18 Pulse Ox (%): 100 - Physical Exam General: Oriented x3 HEENT: Mucous membr. moist/pink Neck: Supple Respiratory: Clear to auscultation bilaterally, Normal air movement Cardiovascular: No edema, Normal pulses, Regular rate/rhythm, Normal S1 S2 Gastrointestinal: Normal bowel sounds, Soft and benign, Non-distended, No ascites, No tenderness Musculoskeletal: No swelling, No tenderness Integumentary: No rashes Neurological: Normal speech, Normal strength at 5/5 x4 extr - Studies Laboratory Data (last 24 hrs) 07/28/19 19:05: PT 13.4 H, INR 1.14 07/28/19 19:05: WBC 10.1 D, Hgb 8.6 L, Hct 27.4 L, Plt Count 131 L D 07/28/19 19:05: Sodium 139, Potassium 4.7, BUN 28 H, Creatinine 1.60 H, Glucose 241 H, Magnesium 2.0, Total Bilirubin 0.9, AST 56 H, ALT 47, Alkaline Phosphatase 211 H, Lipase 277 Assessment And Plan - Current Problems (Diagnosis) (1) Anemia Current Visit: Yes Status: Acute Qualifiers: Anemia type: iron deficiency (2) Hepatic encephalopathy Current Visit: No Status: Acute (3) Diabetes mellitus Onset Date: 08/12/18 Current Visit: No Status: Chronic Qualifiers: Diabetes mellitus type: type 2 Diabetes mellitus mcc insulin use: without terminal operator use Diabetes mellitus complication status: without complication Qualified Code(s): E11.9 - Type 2 diabetes mellitus without complications (4) Esophageal varices Onset Date: 08/12/18 Current Visit: No Status: Chronic Qualifiers: Esophageal varices type: unspecified type Esophageal varices bleeding: without bleeding Qualified Code(s): I85.00 - Esophageal varices without bleeding (5) Hepatitis C virus infection Current Visit: No Status: Chronic Qualifiers: Viral hepatitis chronicity: chronic (6) Liver cirrhosis Onset Date: 08/12/18 Current Visit: No Status: Chronic Qualifiers: Hepatic cirrhosis type: alcoholic cirrhosis Ascites presence: without ascites Qualified Code(s): K70.30 - Alcoholic cirrhosis of liver without ascites (7) S/P TIPS (transjugular intrahepatic portosystemic shunt) Current Visit: No Status: Chronic - Plan Lactulose increased to 20 mg Q6H to a target of 2-3 loose BM per day. Patient has not been able to afford Rifaximin. Monitor H&H every 12 hr to follow anemia Continue Lasix and Aldactone. CT abdomen and pelvis given abdominal pain, drop in hemoglobin and recent TACE. Insulin sliding scale for glucose management. Resume Insulin Degludec Resume cardiac medications. Patient seen by cardiology and his condition is deemed optimal for EGD.
--- NOTE | 2019-07-29 17:52 | RAD REPORT ---
EXAM DESCRIPTION: CT - Abdomen Wo Contrast - 07/29/2019 4:57 pm CLINICAL HISTORY: S/p TACE with anemia COMPARISON: No comparisons TECHNIQUE: Axial [address] imaging of the abdomen was performed. No IV contrast was adm inistered. Oral contrast was administered. All CT scans are performed using dose optimization technique as appropriate and may include automated exposure control or mA/KV adjustment according to patient size. FINDINGS: No suspicious findings in the lung bases. No focal liver lesions seen on noncontrast imaging. Left lobe is enlarged. Nodular liver capsule pres ent. TIPS shunt is in place. No splenomegaly or focal splenic finding. No pancreatic abnormality seen . No gallbladder or biliary tree abnormality. Fullness is present each collecting system and proximal ureter. No acute renal parenchymal process se en. Isodense masses and pyelonephritis are not excluded on a non IV contrast study. No adrenal abnorm ality. The inferior most abdominal images show a 12 centimeter oval fluid attenuation mass. This is not furt her characterized. This is typically an enlarged urinary bladder. A cystic ovarian process cannot be excluded. No dilated bowel loops or bowel wall thickening. No free air, free fluid or inflammatory stranding. N o hernia, mass or bulky lymphadenopathy. No suspicious bony findings. L5 pars defects are present. Exam sensitivity is decreased when no IV contrast is administered. IMPRESSION: Cirrhotic liver changes are present with no focal liver lesion identifiable. No ascites or abnormal lymphadenopathy. Fullness of each renal collecting system. Large cystic mass at the inferior image of this study may b e simply a distended urinary bladder. A cystic ovarian process cannot be excluded. The exam was ordered only as a CT abdomen study. Therefore the pelvic region was not imaged.
[2019-07-29] MEDS: PANTOPRAZOLE 40MG TABLET PO SCH (18:28)
[2019-07-29] MEDS ORDERED: FOLIC ACID 1 MG, MULTIVITAMINS INJ 10 ML, THIAMINE HCL 100 MG in NA CHLORIDE 0.9% 1,000 ML IV SCH (21:00)
[2019-07-29] MEDS: Insulin Degludec [Tresiba Flextouch U-200] SQ SCH (21:00)
[2019-07-29] MEDS: carvediloL 6.25 MG TAB PO SCH ×2 (21:00→21:35)
[2019-07-29] MEDS ORDERED: THIAMINE 200 MG/2 ML INJ ONE (21:09)
[2019-07-29] MEDS: ATORVASTATIN 40 MG TAB PO SCH (21:36)
[2019-07-29] MEDS: FOLIC ACID 1 MG, MULTIVITAMINS INJ 10 ML, THIAMINE HCL 100 MG in NA CHLORIDE 0.9% 1,000 ML IV SCH (22:00)
[2019-07-29] MEDS ORDERED: MULTIVITAMINS 10 ML VIAL (INJ) IV ONE (22:13)
[2019-07-29] MEDS ORDERED: FOLIC ACID 5 MG/ML VIAL ONE (22:13)
[2019-07-29] MEDS ORDERED: NA CHLORIDE 0.9% 1,000 ML ONE (22:13)
[2019-07-29 22:43] LABS: MPV 8.7 fL (7.6-11.3)
[2019-07-29 22:44] LABS: Albumin 2.9 g/dL (3.4-5.0); Potassium 4.5 mmol/L (3.5-5.1); Protein, Total 6.9 g/dL (6.4-8.2)
[2019-07-30 04:22] LABS: Absolute Lymphocytes (CBC) 1.4 K/uL (0.7-4.9); Basophils % 1.2 % (0-1.3); Hematocrit 25.1 % (39.6-49.0); Lymphocytes % 23.7 % (15.3-44.8); MPV 8.8 fL (7.6-11.3); RBC Red Blood Cell Count 3.98 M/uL (4.33-5.43)
[2019-07-30] MEDS ORDERED: LACTULOSE 20 GM/30 ML UCUP PR ONE (04:27)
[2019-07-30] MEDS ORDERED: LACTULOSE 20 GM/30 ML UCUP ONE ×2 (04:33→04:34)
[2019-07-30 05:40] LABS: ALT/SGPT 38 U/L (12-78); AST/SGOT 46 U/L (15-37); Albumin 2.7 g/dL (3.4-5.0); Alkaline Phosphatase 146 U/L (45-117); BUN Blood Urea Nitrogen 20 mg/dL (7-18); Bicarbonate 21 mmol/L (21-32); Ferritin 6.1 ng/mL (26-388); Folic Acid, (Folate) > 20.0 ng/mL (3.1-17.5); Glucose Level 170 mg/dL (74-106); Protein, Total 6.8 g/dL (6.4-8.2); Sodium Level 143 mmol/L (136-145)
[2019-07-30] MEDS ORDERED: CEFTRIAXONE 2,000 MG in NA CHLORIDE 0.9% 100 ML IV SCH (09:00)
[2019-07-30] MEDS: FOLIC ACID 1 MG, MULTIVITAMINS INJ 10 ML, THIAMINE HCL 100 MG in NA CHLORIDE 0.9% 1,000 ML IV SCH ×2 (09:00→17:00)
[2019-07-30] MEDS: LACTULOSE 20 GM/30 ML UCUP PO SCH ×4 (09:00→21:00)
[2019-07-30] MEDS: Rifaximin 550 MG Tab PO SCH ×2 (09:00→21:20)
[2019-07-30] MEDS: INSULIN -REGULAR HUMAN 50 UNIT/0.5 ML ML SQ SCH ×4 (09:07→21:20)
[2019-07-30] MEDS: carvediloL 6.25 MG TAB PO SCH ×2 (09:08→21:19)
[2019-07-30] MEDS: SPIRONOLACTONE 25 MG TABLET PO SCH (09:09)
[2019-07-30] MEDS: FUROSEMIDE 20 MG TABLET PO SCH (09:09)
[2019-07-30] MEDS: CEFTRIAXONE/SWI 2gm 2 GM/20 ML SYR IV SCH (09:13)
[2019-07-30] MEDS: PANTOPRAZOLE 40MG TABLET PO SCH ×2 (09:14→16:23)
--- NOTE | 2019-07-30 15:50 | P.PN ---
Subjective Date of Service: 07/30/19 Chief Complaint: Hepatic encephalopathy/history of portal hypertension status post TIPS Patient had multiple bouts of watery stools today. His mental status has improved. Ammonia level has improved. He also has a postvoid residual of 300ml He denies abdominal pain today. Physical Examination - Vital Signs Temperature: 97.8 F Blood Pressure: 142/72 Pulse: 70 Respirations: 18 Pulse Ox (%): 100 - Physical Exam General: Alert, In no apparent distress, Oriented x3 HEENT: Mucous membr. moist/pink Neck: Supple Respiratory: Clear to auscultation bilaterally, Normal air movement Cardiovascular: No edema, Regular rate/rhythm, Normal S1 S2 Capillary refill: <2 Seconds Gastrointestinal: Normal bowel sounds, Soft and benign, Non-distended, No tenderness Musculoskeletal: No swelling, No erythema Integumentary: No rashes Neurological: Normal speech Assessment And Plan - Current Problems (Diagnosis) (1) Hepatic encephalopathy Current Visit: No Status: Acute (2) Anemia Current Visit: Yes Status: Acute Qualifiers: Anemia type: iron deficiency (3) Diabetes mellitus Onset Date: 08/12/18 Current Visit: No Status: Chronic Qualifiers: Diabetes mellitus type: type 2 Diabetes mellitus group home insulin use: without termite exterminator use Diabetes mellitus complication status: without complication Qualified Code(s): E11.9 - Type 2 diabetes mellitus without complications (4) Esophageal varices Onset Date: 08/12/18 Current Visit: No Status: Chronic Qualifiers: Esophageal varices type: unspecified type Esophageal varices bleeding: without bleeding Qualified Code(s): I85.00 - Esophageal varices without bleeding (5) Hepatitis C virus infection Current Visit: No Status: Chronic Qualifiers: Viral hepatitis chronicity: chronic (6) Liver cirrhosis Onset Date: 08/12/18 Current Visit: No Status: Chronic Qualifiers: Hepatic cirrhosis type: alcoholic cirrhosis Ascites presence: without ascites Qualified Code(s): K70.30 - Alcoholic cirrhosis of liver without ascites (7) S/P TIPS (transjugular intrahepatic portosystemic shunt) Current Visit: No Status: Chronic - Plan Hold lactulose for the rest of the day due to excessive diarrhea today and resume tomorrow Patient started on Rifaximin. Continue to Monitor H&H every 12 hr to follow anemia and transfuse p.r.n. for hemoglobin less than 7 Continue Lasix and Aldactone. CT abdomen and pelvis: Reviewed and reports no acute changes Continue Insulin Degludec an insulin sliding scale for glucose management Continue cardiac medications. Patient seen by cardiology and his condition is deemed optimal for EGD. Urine culture positive for beta-hemolytic strep. Patient started on IV Rocephin Dr. Andrade to follow
[2019-07-30 16:36] LABS: Hematocrit 28.2 % (39.6-49.0)
[2019-07-30 16:46] LABS: Magnesium 2.1 mg/dL (1.8-2.4); Phosphorus 3.8 mg/dL (2.5-4.9)
--- NOTE | 2019-07-30 18:30 | RAD REPORT ---
EXAM DESCRIPTION: US - Urinary Bladder - 07/30/2019 6:12 pm CLINICAL HISTORY: Abdominal pain FINDINGS: Prevoid bladder volume equals 226 cc Postvoid bladder volume equals 173 cc No ascites. Mild enlargement of the prostate IMPRESSION: Prevoid bladder volume equals 226 cc Postvoid bladder volume equals 173 cc
[2019-07-30] MEDS: Insulin Degludec [Tresiba Flextouch U-200] SQ SCH (21:00)
[2019-07-30] MEDS: ATORVASTATIN 40 MG TAB PO SCH (21:19)
[2019-07-30] MEDS: OCTREOTIDE 500 MCG in NA CHLORIDE 0.9% 500 ML IV SCH (23:00)
[2019-07-31 04:27] LABS: Hematocrit 24.4 % (39.6-49.0)
[2019-07-31 04:44] LABS: Albumin 2.6 g/dL (3.4-5.0); Bilirubin Total 0.7 mg/dL (0.2-1.0); Potassium 4.3 mmol/L (3.5-5.1); Protein, Total 6.2 g/dL (6.4-8.2)
[2019-07-31] MEDS: INSULIN -REGULAR HUMAN 50 UNIT/0.5 ML ML SQ SCH ×4 (08:11→21:00)
[2019-07-31] MEDS: carvediloL 6.25 MG TAB PO SCH ×2 (08:12→21:46)
[2019-07-31] MEDS: Rifaximin 550 MG Tab PO SCH ×3 (08:12→21:45)
[2019-07-31] MEDS: FUROSEMIDE 20 MG TABLET PO SCH (08:12)
[2019-07-31] MEDS: SPIRONOLACTONE 25 MG TABLET PO SCH (08:12)
[2019-07-31] MEDS: FOLIC ACID 1 MG, MULTIVITAMINS INJ 10 ML, THIAMINE HCL 100 MG in NA CHLORIDE 0.9% 1,000 ML IV SCH ×2 (08:13→14:44)
[2019-07-31] MEDS: LACTULOSE 20 GM/30 ML UCUP PO SCH ×4 (08:13→21:00)
[2019-07-31] MEDS: PANTOPRAZOLE 40MG TABLET PO SCH ×2 (08:15→16:14)
[2019-07-31 08:21] VITALS: O2SAT 100
[2019-07-31] MEDS: CEFTRIAXONE/SWI 2gm 2 GM/20 ML SYR IV SCH (09:22)
[2019-07-31] MEDS: OCTREOTIDE 500 MCG in NA CHLORIDE 0.9% 500 ML IV SCH ×3 (09:23→21:41)
--- NOTE | 2019-07-31 16:12 | P.PN ---
Subjective Date of Service: 07/31/19 Chief Complaint: Hepatic encephalopathy/history of portal hypertension status post TIPS Patient states he feels much better today. He has had 2 bowel movements since morning. He was up from bed today and even took a shower. His mental status has improved. Ammonia level has improved. He also has a postvoid residual is now 0. He denies abdominal pain and wants to go home. Physical Examination - Vital Signs Temperature: 97.8 F Blood Pressure: 115/59 Pulse: 64 Respirations: 18 Pulse Ox (%): 100 - Physical Exam General: Alert, In no apparent distress, Oriented x3 HEENT: Mucous membr. moist/pink Neck: Supple, JVD not distended Respiratory: Clear to auscultation bilaterally, Normal air movement Cardiovascular: No edema, Regular rate/rhythm, Normal S1 S2, No murmurs Capillary refill: <2 Seconds Gastrointestinal: Normal bowel sounds, Soft and benign, Non-distended, No ascites, No tenderness Musculoskeletal: No swelling Integumentary: No rashes Neurological: Normal speech, Normal strength at 5/5 x4 extr Assessment And Plan - Current Problems (Diagnosis) (1) Hepatic encephalopathy Current Visit: No Status: Acute (2) Anemia Current Visit: Yes Status: Acute Qualifiers: Anemia type: iron deficiency (3) Diabetes mellitus Onset Date: 08/12/18 Current Visit: No Status: Chronic Qualifiers: Diabetes mellitus type: type 2 Diabetes mellitus care home insulin use: without care home use Diabetes mellitus complication status: without complication Qualified Code(s): E11.9 - Type 2 diabetes mellitus without complications (4) Esophageal varices Onset Date: 08/12/18 Current Visit: No Status: Chronic Qualifiers: Esophageal varices type: unspecified type Esophageal varices bleeding: without bleeding Qualified Code(s): I85.00 - Esophageal varices without bleeding (5) Hepatitis C virus infection Current Visit: No Status: Chronic Qualifiers: Viral hepatitis chronicity: chronic (6) Liver cirrhosis Onset Date: 08/12/18 Current Visit: No Status: Chronic Qualifiers: Hepatic cirrhosis type: alcoholic cirrhosis Ascites presence: without ascites Qualified Code(s): K70.30 - Alcoholic cirrhosis of liver without ascites (7) S/P TIPS (transjugular intrahepatic portosystemic shunt) Current Visit: No Status: Chronic - Plan Patient has improved clinically. His ammonia level has decreased considerably. He is more active. Will adjust lactulose to 30 mL t.i.d. Continue Rifaximin. Continue to Monitor H&H every 12 hr to follow anemia and transfuse p.r.n. for hemoglobin less than 7 Continue Lasix and Aldactone. CT abdomen and pelvis: Reviewed and reports no acute changes Continue Insulin Degludec an insulin sliding scale for glucose management Continue cardiac medications. Patient seen by cardiology and his condition is deemed optimal for EGD. Case discussed with Dr. Andrade. He will evaluate the patient and decide the timing for EGD. Urine culture positive for beta-hemolytic strep. Continue IV Rocephin. Will transition to Augmentin to complete 5 days of treatment on discharge.
[2019-07-31 16:19] LABS: Hematocrit 26.8 % (39.6-49.0)
[2019-07-31] MEDS: Insulin Degludec [Tresiba Flextouch U-200] SQ SCH (21:00)
[2019-07-31] MEDS: ATORVASTATIN 40 MG TAB PO SCH (21:45)
--- NOTE | 2019-07-31 23:42 | PN ---
Date of Progress Note: 07/30/2019 Mr. Morris was seen for preop clearance for endoscopy secondary to encephalopathy and increased daniel ia level. He was clear. He underwent his endoscopy yesterday. Today, his encephalopathy is improvi ng . Ammonia level is better. He remained with normal vital signs and normal sinus rhythm. No card iac issues. No arrhythmia. No evidence of congestive heart failure. I will sign off this case for now. BOO/JEFF Voice ID: [id number] Report ID: [id number]
[2019-08-01 04:26] LABS: Potassium 4.5 mmol/L (3.5-5.1)
[2019-08-01 04:28] LABS: Absolute Lymphocytes (CBC) 1.7 K/uL (0.7-4.9); Basophils % 1.3 % (0-1.3); Hematocrit 24.5 % (39.6-49.0); Lymphocytes % 26.2 % (15.3-44.8); MPV 9.2 fL (7.6-11.3); RBC Red Blood Cell Count 3.83 M/uL (4.33-5.43)
[2019-08-01] MEDS: PANTOPRAZOLE 40MG TABLET PO SCH ×2 (07:30→16:30)
[2019-08-01] MEDS: INSULIN -REGULAR HUMAN 50 UNIT/0.5 ML ML SQ SCH ×4 (07:30→21:00)
[2019-08-01] MEDS: SPIRONOLACTONE 25 MG TABLET PO SCH (09:00)
[2019-08-01] MEDS: FUROSEMIDE 20 MG TABLET PO SCH (09:00)
[2019-08-01] MEDS: LACTULOSE 20 GM/30 ML UCUP PO SCH ×4 (09:00→22:37)
[2019-08-01] MEDS: Rifaximin 550 MG Tab PO SCH ×2 (09:00→22:38)
[2019-08-01] MEDS: carvediloL 6.25 MG TAB PO SCH ×2 (09:00→22:39)
[2019-08-01] MEDS: FOLIC ACID 1 MG, MULTIVITAMINS INJ 10 ML, THIAMINE HCL 100 MG in NA CHLORIDE 0.9% 1,000 ML IV SCH (09:30)
[2019-08-01] MEDS: CEFTRIAXONE/SWI 2gm 2 GM/20 ML SYR IV SCH (09:30)
[2019-08-01] MEDS ORDERED: NA CHLORIDE 0.9% 1,000 ML ONE (13:22)
[2019-08-01] MEDS ORDERED: PROPOFOL 200 MG/20 ML VIAL IV ONE (14:41)
[2019-08-01] MEDS ORDERED: LIDOCAINE 1% MPF 5 ML VIAL ONE (14:41)
[2019-08-01] MEDS: OCTREOTIDE 500 MCG in NA CHLORIDE 0.9% 500 ML IV SCH (15:00)
--- NOTE | 2019-08-01 15:13 | ENDO RPT ---
[address], [id number] EGD PROCEDURE REPORT EXAM DATE: 08/01/2019 PATIENT NAME: Janusz Morris MR#: [id number] BIRTHDATE: 1965 ATTENDING: Erasmo Andrade Dr STATUS: inpatient MANAGER FLIGHT OPERATIONS: Yeni Maloney RN, Shakila Chung RN, and January Dumont INDICATIONS: The patient is a 54 yr old Male here for an EGD due to anemia and history of esophageal varices (s/p TIPS) PROCEDURE PERFORMED: EGD with biopsy MEDICATIONS: Per Anesthesia. TOPICAL ANESTHETIC: none CONSENT: The patient understands the risks and benefits of the procedure and understands that these risks include, but are not limited to: sedation, allergic reaction, infection, perforation and/or bleeding. Alternative means of evaluation and treatment include, among others: physical exam, x-rays, and/or surgical intervention. The patient elects to proceed with this endoscopic procedure. DESCRIPTION OF PROCEDURE: During intra-op preparation period all mechanical medical equipment was checked for proper function. Hand hygiene and appropriate measures for infection prevention was taken. Procedure, possible complications, and alternatives including but not limited to the possibility of bleeding, perforation, tear, infection, sepsis, need for surgery, need for blood transfusion, and anesthesia related complications were explained to the patient. After the risks, benefits and alternatives of the procedure were thoroughly explained, Informed consent was verified, confirmed and timeout was successfully executed by the treatment team. The patient was placed in the left lateral position. The patient was anesthetized with topical anesthesia. Through the anesthetized oropharyngeal area, the scope was passed without any difficulty. The [id number] ([id number]) endoscope was introduced through the mouth and advanced to the second portion of the duodenum. Retroflexed views revealed no abnormalities. The gastroscope was then slowly withdrawn and removed. Moderate amount of solid retained food was present in the body and the antrum of the stomach. Mild Atrophic gastritis was found in the body and the antrum of the stomach. Multiple biopsies were obtained and sent to pathology. ADVERSE EVENTS: There were no complications. IMPRESSIONS: 1. Moderate amount of retained solid food in the body and the antrum of the stomach 2. Mild atrophic gastritis in the body and the antrum of the stomach, s/p biopsies RECOMMENDATIONS: 1. await biopsy results 2. acid suppression therapy 3. gastric emptying study 4. colonoscopy REPEAT EXAM: Erasmo Andrade Dr eSigned: Erasmo Andrade Dr 08/01/2019 3:13 PM cc: CPT CODES: ICD9 CODES: PATIENT NAME: Janusz Morris MR#: [id number]
--- NOTE | 2019-08-01 15:16 | ENDO RPT ---
[address], [address] EGD PROCEDURE REPORT EXAM DATE: 08/01/2019 PATIENT NAME: Janusz Morris MR#: [id number] BIRTHDATE: 1965 ATTENDING: Erasmo Andrade Dr STATUS: inpatient WILDLIFE BIOLOGIST: Yeni Maloney RN, Shakila Chung RN, and January Dumont INDICATIONS: The patient is a 54 yr old Male here for an EGD due to anemia and history of esophageal varices (s/p TIPS) PROCEDURE PERFORMED: EGD with biopsy MEDICATIONS: Per Anesthesia. TOPICAL ANESTHETIC: none CONSENT: The patient understands the risks and benefits of the procedure and understands that these risks include, but are not limited to: sedation, allergic reaction, infection, perforation and/or bleeding. Alternative means of evaluation and treatment include, among others: physical exam, x-rays, and/or surgical intervention. The patient elects to proceed with this endoscopic procedure. DESCRIPTION OF PROCEDURE: During intra-op preparation period all mechanical medical equipment was checked for proper function. Hand hygiene and appropriate measures for infection prevention was taken. Procedure, possible complications, and alternatives including but not limited to the possibility of bleeding, perforation, tear, infection, sepsis, need for surgery, need for blood transfusion, and anesthesia related complications were explained to the patient. After the risks, benefits and alternatives of the procedure were thoroughly explained, Informed consent was verified, confirmed and timeout was successfully executed by the treatment team. The patient was placed in the left lateral position. The patient was anesthetized with topical anesthesia. Through the anesthetized oropharyngeal area, the scope was passed without any difficulty. The [id number] ([id number]) endoscope was introduced through the mouth and advanced to the second portion of the duodenum. Retroflexed views revealed no abnormalities. The gastroscope was then slowly withdrawn and removed. Moderate amount of solid retained food was present in the body and the antrum of the stomach. Mild Atrophic gastritis was found in the body and the antrum of the stomach. Multiple biopsies were obtained and sent to pathology. Two 3 mm nodules in the pre-pyloric antrum (not biopsied in setting of suspected GI bleed with anemia - covered with food and possible erosion(s) / ulcer(s) present though not seen). ADVERSE EVENTS: There were no complications. IMPRESSIONS: 1. Moderate amount of retained solid food in the body and the antrum of the stomach 2. Mild atrophic gastritis in the body and the antrum of the stomach, s/p biopsies 3. Two 3 mm nodules in the pre-pyloric antrum (not biopsied in setting of suspected GI bleed with anemia - covered with food and possible erosion(s) / ulcer(s) present though not seen) RECOMMENDATIONS: 1. await biopsy results 2. acid suppression therapy 3. gastric emptying study 4. colonoscopy REPEAT EXAM: Erasmo Andrade Dr eSigned: Erasmo Andrade Dr 08/01/2019 3:15 PM Revised: 08/01/2019 3:15 PM cc: CPT CODES: ICD9 CODES: PATIENT NAME: Janusz Morris MR#: [id number]
--- NOTE | 2019-08-01 20:32 | RAD REPORT ---
EXAM DESCRIPTION: RAD - Small Bowel Series - 08/01/2019 8:15 pm CLINICAL HISTORY: anemia/GI blood loss Abdominal pain COMPARISON: Abdomen Pelvis W Contrast dated 12/15/2018Abdomen Pelvis W Contrast dated 12/15/2018; Abdomen Wo Contrast dated 07/29/2019 FINDINGS: Diamond Polisher film shows a nonspecific bowel gas pattern. No obstruction or free air. No suspiciou s calcifications. TIPS shunt is noted. Gastric size and mucosal fold pattern are within normal limits. Mildly prominent left-sided small bow el loops are seen with mild thickening of the folds. Bowel obstruction pattern is not suspected. Galdamez sit time to the colon is mildly delayed.. No fluoroscopy was performed. Total images acquired: 12 IMPRESSION: Several mildly prominent thickened left-sided small bowel loops are seen suggesting port al enteropathy. No bowel obstruction seen. Mild delay in transit time to the colon was noted.
[2019-08-01] MEDS: Insulin Degludec [Tresiba Flextouch U-200] SQ SCH (21:00)
[2019-08-01] MEDS: ATORVASTATIN 40 MG TAB PO SCH (22:39)
[2019-08-01] MEDS ORDERED: NA CHLORIDE 0.9% 250 ML ONE (23:48)
[2019-08-02] MEDS: OCTREOTIDE 500 MCG in NA CHLORIDE 0.9% 500 ML IV SCH (04:15)
[2019-08-02] MEDS: INSULIN -REGULAR HUMAN 50 UNIT/0.5 ML ML SQ SCH ×2 (07:30→12:39)
[2019-08-02] MEDS: PANTOPRAZOLE 40MG TABLET PO SCH (07:30)
--- NOTE | 2019-08-02 08:15 | RAD REPORT ---
EXAM DESCRIPTION: RAD - Abdomen 1 View (KUB) - 08/02/2019 6:27 am CLINICAL HISTORY: F/U SBS Abdominal pain COMPARISON: Small Bowel Series dated 08/01/2019 FINDINGS: Small amounts of residual contrast remained throughout the decompressed colon from cecum t o distal rectum. No contrast remains in the small bowel. Most of the oral contrast has been evacuated . No extravasation of contrast. Several distended to minimally dilated small bowel loops are present in the right abdomen and left lower quadrant. No free air or pneumatosis. No suspicious calcifications. IMPRESSION: A few distended or minimally dilated small bowel loops remain. No free air or pneumatosi s. Most of the oral contrast from the small bowel exam has been evacuated. . Small amounts of contrast r emained distributed throughout the decompressed colon.
[2019-08-02] MEDS: Rifaximin 550 MG Tab PO SCH (09:00)
[2019-08-02] MEDS: carvediloL 6.25 MG TAB PO SCH (09:00)
[2019-08-02] MEDS: FOLIC ACID 1 MG, MULTIVITAMINS INJ 10 ML, THIAMINE HCL 100 MG in NA CHLORIDE 0.9% 1,000 ML IV SCH (09:00)
[2019-08-02] MEDS: LACTULOSE 20 GM/30 ML UCUP PO SCH ×2 (09:00→12:39)
[2019-08-02] MEDS: SPIRONOLACTONE 25 MG TABLET PO SCH (09:00)
[2019-08-02] MEDS: FUROSEMIDE 20 MG TABLET PO SCH (09:00)
[2019-08-02] MEDS: CEFTRIAXONE/SWI 2gm 2 GM/20 ML SYR IV SCH (09:20)
[2019-08-02 10:44] LABS: Absolute Lymphocytes (CBC) 1.3 K/uL (0.7-4.9); Hematocrit 32.1 % (39.6-49.0); Lymphocytes % 17.3 % (15.3-44.8); MPV 8.5 fL (7.6-11.3); RBC Red Blood Cell Count 4.69 M/uL (4.33-5.43)
[2019-08-02 10:57] LABS: Potassium 4.6 mmol/L (3.5-5.1)
[2019-08-02 11:48] LABS: Anisocytosis 1+; Blood Morphology Comment NOTED (NOT SEEN); Hypochromasia 1+; Platelet Estimate DECR; Urine White Blood Cell Casts OK
--- NOTE | 2019-08-02 12:09 | RAD REPORT ---
EXAM DESCRIPTION: NM - Gastric Emptying Study - 08/02/2019 11:58 am CLINICAL HISTORY: Anemia, GI loss COMPARISON: None. TECHNIQUE: The patient was administered approximately 1 mCi Tc 99m sulfur colloid in solid egg meal. Imaging of the left upper quadrant was performed with time/activity curve generated. FINDINGS: Multiple static images show initially limited movement of the radiopharmaceutical from the stomach over the initial 2 hours of the examination. There was a substantial or rapid drop in activi ty in the stomach between the second and third hour. Time to one-half activity is 145 minutes. Two ho ur retention is 79%. The 1/2 emptying time is prolonged beyond the usual to our standard. There was v kelsy rapid emptying of the stomach between the second and third hour. IMPRESSION: Time to 1/2 emptying was 145 minutes with 2 hour retention of 78%. Patient demonstrated very rapid emptying of the stomach between our 2 and our 3 of the examination.
[2019-08-02 12:16] VITALS: BP 118/62; TEMP 97.1
--- NOTE | 2019-08-02 14:20 | P.DS ---
Admission Date: 07/28/19 Discharge Date: 08/02/19 Disposition: ROUTINE DISCHARGE Discharge Condition: GOOD Reason for Admission: Hepatic encephalopathy/history of portal hypertension status post TIPS Consultations: GI Cardiology Procedures: EGD - Problems (1) Hepatic encephalopathy Current Visit: No Status: Acute (2) Anemia Current Visit: Yes Status: Acute Qualifiers: Anemia type: iron deficiency (3) Diabetes mellitus Onset Date: 08/12/18 Current Visit: No Status: Chronic Qualifiers: Diabetes mellitus type: type 2 Diabetes mellitus watermelon inspector insulin use: without watermelon inspector use Diabetes mellitus complication status: without complication Qualified Code(s): E11.9 - Type 2 diabetes mellitus without complications (4) Esophageal varices Onset Date: 08/12/18 Current Visit: No Status: Chronic Qualifiers: Esophageal varices type: unspecified type Esophageal varices bleeding: without bleeding Qualified Code(s): I85.00 - Esophageal varices without bleeding (5) Hepatitis C virus infection Current Visit: No Status: Chronic Qualifiers: Viral hepatitis chronicity: chronic (6) Liver cirrhosis Onset Date: 08/12/18 Current Visit: No Status: Chronic Qualifiers: Hepatic cirrhosis type: alcoholic cirrhosis Ascites presence: without ascites Qualified Code(s): K70.30 - Alcoholic cirrhosis of liver without ascites (7) S/P TIPS (transjugular intrahepatic portosystemic shunt) Current Visit: No Status: Chronic Brief History of Present Illness: 54-year-old gentleman with a history of liver cirrhosis, portal hypertension status post TIPS, recurrent hepatic encephalopathy was brought to the emergency department due to altered mental status. Patient was hospitalized a week ago for similar reasons and got better after treatment with lactulose. He was taking his lactulose twice a day at home. Family was not sure how many bowel movement per day he was having. His ammonia level was as high as 155 on arrival. He was confused. The patient was admitted for further management of hepatic encephalopathy. Hospital Course: He was treated with lactulose 30 mL q.i.d. patient had bouts of diarrhea. Ammonia level improved along with improvement in his mental status. His mental status is currently at baseline. Last ammonia level checked was 53. Would recommended lactulose 30 mg t.i.d for a target 2-3 loose bowel movement per day. This has been communicated to the patient and his family. He was evaluated by cardiology for clearance for EGD. He was evaluated by GI, EGD was performed. EGD demonstrated moderate amount of retained solid food in the stomach. It also reported mild atrophic gastritis. Gastric emptying studies was performed which showed delayed to 2 hr gastric emptying. She is already on Protonix b.i.d. for gastritis and prior GI bleed. His hemoglobin dropped to 7.5 during the hospital stay. Patient was given 2 units of PRBC overnight. His posttransfusion hemoglobin is 10. Patient is awake and alert and at baseline, tolerating feeding. He has been up and ambulating. He is deemed clinically stable for discharge. He is recommended to follow with GI-Dr. Andrade next week. Vital Signs/Physical Exam: Temp Pulse Resp BP Pulse Ox 97.1 F 65 18 118/62 100 08/02/19 12:00 08/02/19 12:00 08/02/19 12:00 08/02/19 12:00 08/02/19 12:00 General: Alert, In no apparent distress, Oriented x3 HEENT: Mucous membr. moist/pink Neck: Supple, JVD not distended Respiratory: Clear to auscultation bilaterally, Normal air movement Cardiovascular: No edema, Regular rate/rhythm, Normal S1 S2, No murmurs Gastrointestinal: Normal bowel sounds, Soft and benign, Non-distended, No ascites, No tenderness Musculoskeletal: No swelling Integumentary: No rashes Neurological: Normal speech, Normal strength at 5/5 x4 extr Laboratory Data at Discharge: WBC 7.7 K/uL (4.3-10.9) D 08/02/19 10:30 Hgb 10.0 g/dL (13.6-17.9) L D 08/02/19 10:30 Hct 32.1 % (39.6-49.0) L D 08/02/19 10:30 Plt Count 111 K/uL (152-406) L 08/02/19 10:30 PT 13.4 SECONDS (9.5-12.5) H 07/28/19 19:05 INR 1.14 07/28/19 19:05 Sodium 138 mmol/L (136-145) 08/02/19 10:30 Potassium 4.6 mmol/L (3.5-5.1) 08/02/19 10:30 BUN 16 mg/dL (7-18) 08/02/19 10:30 Creatinine 1.06 mg/dL (0.55-1.3) 08/02/19 10:30 Glucose 220 mg/dL (74-106) H 08/02/19 10:30 Phosphorus 3.8 mg/dL (2.5-4.9) 07/30/19 16:14 Magnesium 2.1 mg/dL (1.8-2.4) 07/30/19 16:14 Total Bilirubin 0.7 mg/dL (0.2-1.0) 07/31/19 04:01 AST 38 U/L (15-37) H 07/31/19 04:01 ALT 34 U/L (12-78) 07/31/19 04:01 Alkaline Phosphatase 130 U/L (45-117) H 07/31/19 04:01 Lipase 277 U/L (73-393) 07/28/19 19:05 Home Medications: Furosemide [Lasix] 20 mg PO DAILY 08/10/18 Pantoprazole [Protonix Tab*] 40 mg PO BID 08/10/18 Spironolactone [Aldactone*] 50 mg PO DAILY 08/10/18 Atorvastatin Calcium [Lipitor] 40 mg PO BEDTIME 05/23/19 Insulin Degludec [Tresiba Flextouch U-200] 36 units SQ BEDTIME 06/13/19 Carvedilol 6.25 mg PO BID 07/18/19 Insulin -Regular Human [Novolin -R*] See Protocol SQ ACHS 30 Days #1 vial Lactulose [Cephulac*] 30 ml PO TID #90 ucup 08/02/19 Rifaximin [Xifaxan] 550 mg PO BID #60 tablet 08/02/19 New Medications: Lactulose [Cephulac*] 30 ml PO TID #90 ucup Rifaximin [Xifaxan] 550 mg PO BID #60 tablet Diet: ADA Activity: Ad laquita Followup: Erasmo Andrade MD [ASSOCIATE-ACTIVE - CAN ADMIT] - 1 Week
--- OUTSIDE RECORDS SUMMARY | 2019-08-03 21:50 | XMS REPORT ---
:1965 [facility] [address] [place] [address] [address] [place] [address] Care Team Providers Name Role Phone BRAVO [...] ID: EXTENSIVE - ARTERIAL 16:43:00 Exam:->liver cancer [id number] Mesenteric angiogram and chemoembolization, 06/18/2019. History: HCC. Modality: Fluoroscopy. Sedation: Versed 1 mg and fentanyl 50 mcg was given intravenously for conscious sedation. Vital signs were monitored throughout the procedure by a nurse, and remained stable. Physician intra-service time was 60 minutes. Anesthesia: Two percent Lidocaine without epinephrine. Approach: Right common femoral artery. Estimated blood loss: < 5 cc. Specimen: None. extruding press operator: Samantha. Missile Tracking Technician: Gaudencio. Fluoroscopy Time: 14.5 min. Dose (Ka,r): [...] and a 0.035 inch J-wire. A 5 Ivorian sheath was placed. Diagnostic mesenteric angiogram was performed to access vessel patency and exclude arterio-portal shunting. A 5 Ivorian Ramírez catheter which was used to select the SMA and celiac trunk for DSA runs. A 3 Ivorian microcatheter was advanced coaxially through the Ramírez [...] hemostasis using closure device. Signed: Juarez Singh [facility] Verified Date/Time: 06/18/2019 16:43:18 Reading Location: [place] [id number] Angio Body Reading Room REHENSIVE METABOLIC PANEL 2019-06-18 10:36:00 Test Item Value Reference Range Comments TOTAL PROTEIN (BEAKER) (test 6.5 gm/dL 6.0-8.3 akdt=670) ALBUMIN (BEAKER) (test 3.0 g/dL 3.5-5.0 mszb=9823) ALKALINE PHOSPHATASE 203 U/L 40-150 (BEAKER) (test ygsd=229) BILIRUBIN TOTAL (BEAKER) 0.8 mg/dL 0.2-1.2 (test flhr=840) SODIUM (BEAKER) (test 135 meq/L 136-145 eeca=812) POTASSIUM (BEAKER) (test 4.1 meq/L 3.5-5.1 axyy=464) CHLORIDE (BEAKER) (test 106 meq/L 98-107 vyle=655) CO2 (BEAKER) (test ztfs=791) 24 meq/L 22-29 BLOOD UREA NITROGEN (BEAKER) 15 mg/dL 7-21 (test mlub=492) CREATININE (BEAKER) (test 1.17 mg/dL 0.57-1.25 iwua=062) GLUCOSE RANDOM (BEAKER) 221 mg/dL 70-105 (test echb=925) CALCIUM (BEAKER) (test 9.2 mg/dL 8.4-10.2 cwei=986) AST (SGOT) (BEAKER) (test 78 U/L 5-34 udhq=628) ALT (SGPT) (BEAKER) (test 50 U/L 6-55 okkv=779) EGFR (BEAKER) (test 64 mL/min/1.73 sq m ESTIMATED GFR IS NOT rujk=3379) ACCURATE CREATININE CLEARANCE IN PREDICTING GLOMERULAR FILTRATION RATE. ESTIMATED GFR IS NOT APPLICABLE FOR DIALYSIS PATIENTS. PROTHROMBIN [id number] 10:19:00 Test Item Value Reference Range Comments PROTIME (BEAKER) (test jrzi=891) 14.7 seconds 11.9-14.2 INR (BEAKER) (test qpye=964) 1.2 <=5.9 Effective 02/19/2019: PT Reference Range ChangeNew: 11.9-14.2 Previous: 11.7- 14.7RECOMMENDED COUMADIN/WARFARIN INR THERAPY RANGESSTANDARD DOSE: 2.0-3.0 Includes: PROPHYLAXIS for venous thrombosis, systemic embolization; TREATMENT for venous thrombosis and/or pulmonary embolus.HIGH RISK: Target INR is2.5-3.5 for patients wiht mechanical heart valves.[id number] 10:19:00 Test Item Value Reference Range Comments PARTIAL THROMBOPLASTIN TIME (BEAKER) (test 35.6 seconds 22.5-36.0 pbpm=308) CBC W/PLT COUNT & AUTO [id number] 10:16:00 Test Item Value Reference Range Comments WHITE BLOOD CELL COUNT (BEAKER) (test wapo=937) 6.4 K/ L 3.5-10.5 RED BLOOD CELL COUNT (BEAKER) (test trji=488) 3.84 M/ L 4.63-6.08 HEMOGLOBIN (BEAKER) (test qbje=462) 8.1 GM/DL 13.7-17.5 HEMATOCRIT (BEAKER) (test lrvc=667) 27.4 % 40.1-51.0 MEAN CORPUSCULAR VOLUME (BEAKER) (test fvbe=015) 71.4 fL 79.0-92.2 MEAN CORPUSCULAR HEMOGLOBIN (BEAKER) (test 21.1 pg 25.7-32.2 ehmt=758) MEAN CORPUSCULAR HEMOGLOBIN CONC (BEAKER) (test 29.6 GM/DL 32.3-36.5 ewmj=814) RED CELL DISTRIBUTION WIDTH (BEAKER) (test 16.7 % 11.6-14.4 capv=728) PLATELET COUNT (BEAKER) (test lvhs=940) 130 K/CU MM 150-450 MEAN PLATELET VOLUME (BEAKER) (test voyn=082) 9.6 fL 9.4-12.4 NUCLEATED RED BLOOD CELLS (BEAKER) (test 0 /100 WBC 0-0 egyq=821) NEUTROPHILS RELATIVE PERCENT (BEAKER) (test 62 % mppj=268) LYMPHOCYTES RELATIVE PERCENT (BEAKER) (test 20 % hqap=023) MONOCYTES RELATIVE PERCENT (BEAKER) (test 9 % hdht=077) EOSINOPHILS RELATIVE PERCENT (BEAKER) (test 8 % bjhk=304) BASOPHILS RELATIVE PERCENT (BEAKER) (test 1 % iqyn=407) NEUTROPHILS ABSOLUTE COUNT (BEAKER) (test 3.97 K/ L 1.78-5.38 ikrc=685) LYMPHOCYTES ABSOLUTE COUNT (BEAKER) (test 1.27 K/ L 1.32-3.57 qynw=492) MONOCYTES ABSOLUTE COUNT (BEAKER) (test 0.54 K/ L 0.30-0.82 fjen=682) EOSINOPHILS ABSOLUTE COUNT (BEAKER) (test 0.52 K/ L 0.04-0.54 szad=137) BASOPHILS ABSOLUTE COUNT (BEAKER) (test 0.08 K/ L 0.01-0.08 cvuv=391) IMMATURE GRANULOCYTES-RELATIVE PERCENT (BEAKER) 0 % 0-1 (test lxrn=4097) MR, ABDOMEN, [id number] 17:19:00Include Abdominal VesselsFINAL REPORT MR of the [...] dome suspicious for hepatocellular carcinoma. Signed: Terese [facility] Verified Date/Time: 04/09/2019 17:19:22 Reading Location: [address] Radiology Reading Room Electronically signed by: TERESE JORDAN M.D. on04/09/2019 05:19 PMALPHA FETOPROTEIN (AFP), TUMOR [id number] 14: 34:00 Test Item Value Reference Range Comments ALPHA-FETOPROTEIN (BEAKER) (test ixxl=2369) 32.9 ng/mL <10.0 COMPREHENSIVE METABOLIC [id number] 14:18:00 Test Item Value Reference Range Comments TOTAL PROTEIN (BEAKER) 8.2 gm/dL 6.0-8.3 (test nupz=591) ALBUMIN (BEAKER) (test 3.5 g/dL 3.5-5.0 jxav=4758) ALKALINE PHOSPHATASE 216 U/L 40-150 (BEAKER) (test mlzy=158) BILIRUBIN TOTAL (BEAKER) 1.4 mg/dL 0.2-1.2 (test aijs=139) SODIUM (BEAKER) (test 132 meq/L 136-145 gkxb=755) POTASSIUM (BEAKER) (test 4.5 meq/L 3.5-5.1 vntf=581) CHLORIDE (BEAKER) (test 102 meq/L 98-107 kxmh=850) CO2 (BEAKER) (test 24 meq/L 22-29 ncve=214) BLOOD UREA NITROGEN 12 mg/dL 7-21 (BEAKER) (test yrso=306) CREATININE (BEAKER) (test 1.16 mg/dL 0.57-1.25 yoec=438) GLUCOSE RANDOM (BEAKER) 249 mg/dL 70-105 (test ydqd=389) CALCIUM (BEAKER) (test 9.3 mg/dL 8.4-10.2 rxyz=397) AST (SGOT) (BEAKER) (test 81 U/L 5-34 ueij=001) ALT (SGPT) (BEAKER) (test 40 U/L 6-55 rjkj=990) EGFR (BEAKER) (test 65 mL/min/1.73 sq m ESTIMATED GFR IS NOT hrfs=9872) ACCURATE CREATININE CLEARANCE IN PREDICTING GLOMERULAR FILTRATION RATE. ESTIMATED GFR IS NOT APPLICABLE FOR DIALYSIS PATIENTS. BILIRUBIN, [id number] 14:18:00 Test Item Value Reference Range Comments BILIRUBIN DIRECT (BEAKER) (test eoqj=868) 0.8 mg/dL 0.1-0.5 PROTHROMBIN [id number] 14:05:00 Test Item Value Reference Range Comments PROTIME (BEAKER) (test ubts=292) 14.9 seconds 11.9-14.2 INR (BEAKER) (test eusc=658) 1.2 <=5.9 Effective 02/19/2019: PT Reference Range ChangeNew: 11.9-14.2 Previous: 11.7- 14.7RECOMMENDED COUMADIN/WARFARIN INR THERAPY RANGESSTANDARD DOSE: 2.0-3.0 Includes: PROPHYLAXIS for venous thrombosis, systemic embolization; TREATMENT for venous thrombosis and/or pulmonary embolus.HIGH RISK: Target INR is2.5-3.5 for patients wiht mechanical heart valves.[id number] 13:58:00 Test Item Value Reference Range Comments POC-CREATININE (BEAKER) 0.9 mg/dL 0.6-1.3 TESTED AT [facility] [address] (test wvpi=1334) [facility] [address] POC-EGFR (BEAKER) (test 88 mL/min/1.73M2 lfpa=0421) CBC W/PLT COUNT & AUTO [id number] 13:56:00 Test Item Value Reference Range Comments WHITE BLOOD CELL COUNT (BEAKER) (test jyuy=032) 5.9 K/ L 3.5-10.5 RED BLOOD CELL COUNT (BEAKER) (test yqtu=238) 4.75 M/ L 4.63-6.08 HEMOGLOBIN (BEAKER) (test cnvn=797) 10.7 GM/DL 13.7-17.5 HEMATOCRIT (BEAKER) (test garw=283) 35.5 % 40.1-51.0 MEAN CORPUSCULAR VOLUME (BEAKER) (test buyz=943) 74.7 fL 79.0-92.2 MEAN CORPUSCULAR HEMOGLOBIN (BEAKER) (test 22.5 pg 25.7-32.2 kbvz=294) MEAN CORPUSCULAR HEMOGLOBIN CONC (BEAKER) (test 30.1 GM/DL 32.3-36.5 frfg=220) RED CELL DISTRIBUTION WIDTH (BEAKER) (test 18.6 % 11.6-14.4 erqp=032) PLATELET COUNT (BEAKER) (test gags=091) 157 K/CU MM 150-450 MEAN PLATELET VOLUME (BEAKER) (test hngl=527) 9.4 fL 9.4-12.4 NUCLEATED RED BLOOD CELLS (BEAKER) (test 0 /100 WBC 0-0 adsy=599) NEUTROPHILS RELATIVE PERCENT (BEAKER) (test 68 % fjes=222) LYMPHOCYTES RELATIVE PERCENT (BEAKER) (test 19 % jkzd=692) MONOCYTES RELATIVE PERCENT (BEAKER) (test 9 % evyv=946) EOSINOPHILS RELATIVE PERCENT (BEAKER) (test 3 % fhgj=298) BASOPHILS RELATIVE PERCENT (BEAKER) (test 1 % cicu=570) NEUTROPHILS ABSOLUTE COUNT (BEAKER) (test 4.03 K/ L 1.78-5.38 lacb=973) LYMPHOCYTES ABSOLUTE COUNT (BEAKER) (test 1.13 K/ L 1.32-3.57 zvik=718) MONOCYTES ABSOLUTE COUNT (BEAKER) (test 0.52 K/ L 0.30-0.82 wufk=256) EOSINOPHILS ABSOLUTE COUNT (BEAKER) (test 0.20 K/ L 0.04-0.54 ybja=292) BASOPHILS ABSOLUTE COUNT (BEAKER) (test 0.05 K/ L 0.01-0.08 bxie=206) IMMATURE GRANULOCYTES-RELATIVE PERCENT (BEAKER) 0 % 0-1 (test qriu=2948) HOPE [id number] 08:05:00Reason for exam:->recurrent variceal bleedAddendum BeginsREPORT STATUS:A Addendum: Ultrasound was used to examine the veins the right neck. A patent internal jugular vein was identified and images the patent vein were saved on PACS. Real-time ultrasound guidance was then utilized for access of the internal jugular vein.Signed: Sola Camarillo MDReport Verified Date/Time: 01/20/2019 08:05:45 Reading Location: [address] Radiology Reading RoomAddendum EndsFINAL REPORT Procedure: [...] MDReport Verified Date/Time: 01/01/2019 17:21:51 Reading Location: [place] [address] Angio Body Reading Room POCT-GLUCOSE [id number] 08:02:00 Test Item Value Reference Range Comments POC-GLUCOSE METER (BEAKER) 187 mg/dL 70-110 TESTED AT [facility] [address] (test qccz=7513) [facility] [address] [id number] 04:17:00 Test Item Value Reference Range Comments PHOSPHORUS (BEAKER) (test tzeu=881) 2.9 mg/dL 2.3-4.7 [id number] 04:17:00 Test Item Value Reference Range Comments MAGNESIUM (BEAKER) (test jowc=907) 1.9 mg/dL 1.6-2.6 COMPREHENSIVE METABOLIC [id number] 04:17:00 Test Item Value Reference Range Comments TOTAL PROTEIN (BEAKER) 7.6 gm/dL 6.0-8.3 (test jjis=420) ALBUMIN (BEAKER) (test 3.3 g/dL 3.5-5.0 ucvd=5612) ALKALINE PHOSPHATASE 138 U/L 40-150 (BEAKER) (test iogt=784) BILIRUBIN TOTAL (BEAKER) 1.0 mg/dL 0.2-1.2 (test pqcy=403) SODIUM (BEAKER) (test 136 meq/L 136-145 oone=617) POTASSIUM (BEAKER) (test 4.0 meq/L 3.5-5.1 mhhz=301) CHLORIDE (BEAKER) (test 105 meq/L 98-107 pawz=643) CO2 (BEAKER) (test 22 meq/L 22-29 ipku=716) BLOOD UREA NITROGEN 14 mg/dL 7-21 (BEAKER) (test xuop=806) CREATININE (BEAKER) (test 1.11 mg/dL 0.57-1.25 vpmh=072) GLUCOSE RANDOM (BEAKER) 173 mg/dL 70-105 (test mdqm=467) CALCIUM (BEAKER) (test 9.1 mg/dL 8.4-10.2 ekts=236) AST (SGOT) (BEAKER) (test 89 U/L 5-34 yfwo=055) ALT (SGPT) (BEAKER) (test 41 U/L 6-55 xhhq=163) EGFR (BEAKER) (test 69 mL/min/1.73 sq m ESTIMATED GFR IS NOT efxk=9931) ACCURATE CREATININE CLEARANCE IN PREDICTING GLOMERULAR FILTRATION RATE. ESTIMATED GFR IS NOT APPLICABLE FOR DIALYSIS PATIENTS. CBC W/PLT COUNT & AUTO [id number] 03:43:00 Test Item Value Reference Range Comments WHITE BLOOD CELL COUNT (BEAKER) (test hxyw=426) 9.1 K/ L 3.5-10.5 RED BLOOD CELL COUNT (BEAKER) (test nuyq=531) 4.66 M/ L 4.63-6.08 HEMOGLOBIN (BEAKER) (test ifov=588) 9.1 GM/DL 13.7-17.5 HEMATOCRIT (BEAKER) (test hnnz=555) 31.7 % 40.1-51.0 MEAN CORPUSCULAR VOLUME (BEAKER) (test mizu=387) 68.0 fL 79.0-92.2 MEAN CORPUSCULAR HEMOGLOBIN (BEAKER) (test 19.5 pg 25.7-32.2 ytpl=012) MEAN CORPUSCULAR HEMOGLOBIN CONC (BEAKER) (test 28.7 GM/DL 32.3-36.5 koqs=886) RED CELL DISTRIBUTION WIDTH (BEAKER) (test 20.4 % 11.6-14.4 dtxa=625) PLATELET COUNT (BEAKER) (test hunw=300) 174 K/CU MM 150-450 MEAN PLATELET VOLUME (BEAKER) (test hyrl=781) 10.6 fL 9.4-12.4 NUCLEATED RED BLOOD CELLS (BEAKER) (test 0 /100 WBC 0-0 kyhy=839) NEUTROPHILS RELATIVE PERCENT (BEAKER) (test 74 % gpoi=203) LYMPHOCYTES RELATIVE PERCENT (BEAKER) (test 16 % tvvt=824) MONOCYTES RELATIVE PERCENT (BEAKER) (test 7 % dvvg=245) EOSINOPHILS RELATIVE PERCENT (BEAKER) (test 2 % dyht=262) BASOPHILS RELATIVE PERCENT (BEAKER) (test 1 % vltc=967) NEUTROPHILS ABSOLUTE COUNT (BEAKER) (test 6.70 K/ L 1.78-5.38 elpm=046) LYMPHOCYTES ABSOLUTE COUNT (BEAKER) (test 1.42 K/ L 1.32-3.57 ylrx=143) MONOCYTES ABSOLUTE COUNT (BEAKER) (test 0.61 K/ L 0.30-0.82 bzzi=271) EOSINOPHILS ABSOLUTE COUNT (BEAKER) (test 0.20 K/ L 0.04-0.54 spat=325) BASOPHILS ABSOLUTE COUNT (BEAKER) (test 0.10 K/ L 0.01-0.08 ierk=928) IMMATURE GRANULOCYTES-RELATIVE PERCENT (BEAKER) 0 % 0-1 (test pbac=6587) POCT-GLUCOSE [id number] 23:33:00 Test Item Value Reference Range Comments POC-GLUCOSE METER (BEAKER) 230 mg/dL 70-110 TESTED AT [address] (test cdww=8053) [place] [id number] POCT-GLUCOSE [id number] 16:25:00 Test Item Value Reference Range Comments POC-GLUCOSE METER (BEAKER) 182 mg/dL 70-110 TESTED AT [address] (test fuvx=3317) [place] [address] POCT-GLUCOSE [id number] 14:02:00 Test Item Value Reference Range Comments POC-GLUCOSE METER (BEAKER) 146 mg/dL 70-110 TESTED AT [address] (test jwse=7106) [place] [address] POCT-GLUCOSE [id number] 07:49:00 Test Item Value Reference Range Comments POC-GLUCOSE METER (BEAKER) 143 mg/dL 70-110 TESTED AT [address] (test febh=0551) [facility] [address] CALCIUM, [id number] 06:48:00 Test Item Value Reference Range Comments CALCIUM IONIZED (BEAKER) (test uedz=883) 0.81 mmol/L 1.12-1.27 PH, BLOOD (BEAKER) (test zwme=3565) 7.50 CBC W/PLT COUNT & AUTO [id number] 06:41:00 Test Item Value Reference Range Comments WHITE BLOOD CELL COUNT 4.0 K/ L 3.5-10.5 (BEAKER) (test tnrk=513) RED BLOOD CELL COUNT (BEAKER) 4.14 M/ L 4.63-6.08 (test xavx=006) HEMOGLOBIN (BEAKER) (test 8.2 GM/DL 13.7-17.5 eqqm=117) HEMATOCRIT (BEAKER) (test 27.7 % 40.1-51.0 lett=972) MEAN CORPUSCULAR VOLUME 66.9 fL 79.0-92.2 (BEAKER) (test iihv=659) MEAN CORPUSCULAR HEMOGLOBIN 19.8 pg 25.7-32.2 (BEAKER) (test gmhl=291) MEAN CORPUSCULAR HEMOGLOBIN 29.6 GM/DL 32.3-36.5 CONC (BEAKER) (test juts=888) RED CELL DISTRIBUTION WIDTH 20.3 % 11.6-14.4 (BEAKER) (test dvyj=139) PLATELET COUNT (BEAKER) (test 120 K/CU MM 150-450 ilpa=242) MEAN PLATELET VOLUME (BEAKER) fL 9.4-12.4 Unable to report due to (test sgqw=577) abnormal Platelet population distribution. NUCLEATED RED BLOOD CELLS 0 /100 WBC 0-0 (BEAKER) (test ssoq=114) NEUTROPHILS RELATIVE PERCENT 58 % (BEAKER) (test wucy=738) LYMPHOCYTES RELATIVE PERCENT 25 % (BEAKER) (test mufc=704) MONOCYTES RELATIVE PERCENT 8 % (BEAKER) (test thgu=458) EOSINOPHILS RELATIVE PERCENT 7 % (BEAKER) (test ibox=157) BASOPHILS RELATIVE PERCENT 1 % (BEAKER) (test fzob=317) NEUTROPHILS ABSOLUTE COUNT 2.36 K/ L 1.78-5.38 (BEAKER) (test vale=729) LYMPHOCYTES ABSOLUTE COUNT 1.01 K/ L 1.32-3.57 (BEAKER) (test lhkk=857) MONOCYTES ABSOLUTE COUNT 0.33 K/ L 0.30-0.82 (BEAKER) (test nkjs=540) EOSINOPHILS ABSOLUTE COUNT 0.29 K/ L 0.04-0.54 (BEAKER) (test ymjl=331) BASOPHILS ABSOLUTE COUNT 0.04 K/ L 0.01-0.08 (BEAKER) (test vrgk=710) IMMATURE GRANULOCYTES-RELATIVE 0 % 0-1 PERCENT (BEAKER) (test rotj=4114) [id number] 06:02:00 Test Item Value Reference Range Comments PHOSPHORUS (BEAKER) (test thda=074) 3.6 mg/dL 2.3-4.7 [id number] 06:02:00 Test Item Value Reference Range Comments MAGNESIUM (BEAKER) (test znpr=790) 1.7 mg/dL 1.6-2.6 COMPREHENSIVE METABOLIC [id number] 06:02:00 Test Item Value Reference Range Comments TOTAL PROTEIN (BEAKER) 7.2 gm/dL 6.0-8.3 (test wgug=130) ALBUMIN (BEAKER) (test 3.2 g/dL 3.5-5.0 zqcd=8792) ALKALINE PHOSPHATASE 157 U/L 40-150 (BEAKER) (test lbxr=657) BILIRUBIN TOTAL (BEAKER) 0.9 mg/dL 0.2-1.2 (test peyq=791) SODIUM (BEAKER) (test 137 meq/L 136-145 klfa=024) POTASSIUM (BEAKER) (test 3.5 meq/L 3.5-5.1 topw=437) CHLORIDE (BEAKER) (test 102 meq/L 98-107 zjxt=058) CO2 (BEAKER) (test 30 meq/L 22-29 bgcu=809) BLOOD UREA NITROGEN 18 mg/dL 7-21 (BEAKER) (test stjn=650) CREATININE (BEAKER) (test 1.14 mg/dL 0.57-1.25 qosv=586) GLUCOSE RANDOM (BEAKER) 130 mg/dL 70-105 (test nsvl=453) CALCIUM (BEAKER) (test 8.6 mg/dL 8.4-10.2 rdpv=733) AST (SGOT) (BEAKER) (test 53 U/L 5-34 cadb=174) ALT (SGPT) (BEAKER) (test 25 U/L 6-55 zhck=057) EGFR (BEAKER) (test 67 mL/min/1.73 sq m ESTIMATED GFR IS NOT gbuk=7487) ACCURATE CREATININE CLEARANCE IN PREDICTING GLOMERULAR FILTRATION RATE. ESTIMATED GFR IS NOT APPLICABLE FOR DIALYSIS PATIENTS. POCT-GLUCOSE [id number] 23:13:00 Test Item Value Reference Range Comments POC-GLUCOSE METER (BEAKER) 332 mg/dL 70-110 Notified JADA NIX/TESTED AT [facility] (test iyuu=9268) [address] [place] [address] POCT-GLUCOSE [id number] 15:30:00 Test Item Value Reference Range Comments POC-GLUCOSE METER (BEAKER) 191 mg/dL 70-110 TESTED AT [facility] [address] (test iqbl=4416) [facility] [address] CALCIUM, [id number] 06:07:00 Test Item Value Reference Range Comments CALCIUM IONIZED (BEAKER) (test mvbr=533) 0.93 mmol/L 1.12-1.27 PH, BLOOD (BEAKER) (test cdxn=3232) 7.53 [id number] 06:06:00 Test Item Value Reference Range Comments PHOSPHORUS (BEAKER) (test wwws=868) 3.1 mg/dL 2.3-4.7 [id number] 06:06:00 Test Item Value Reference Range Comments MAGNESIUM (BEAKER) (test lxos=038) 1.8 mg/dL 1.6-2.6 BASIC METABOLIC [id number] 06:06:00 Test Item Value Reference Range Comments SODIUM (BEAKER) (test 138 meq/L 136-145 iweb=676) POTASSIUM (BEAKER) (test 3.8 meq/L 3.5-5.1 qgom=491) CHLORIDE (BEAKER) (test 104 meq/L 98-107 szpf=534) CO2 (BEAKER) (test 27 meq/L 22-29 tvtc=133) BLOOD UREA NITROGEN 19 mg/dL 7-21 (BEAKER) (test iiet=777) CREATININE (BEAKER) (test 1.26 mg/dL 0.57-1.25 dico=106) GLUCOSE RANDOM (BEAKER) 191 mg/dL 70-105 (test fvuw=470) CALCIUM (BEAKER) (test 8.9 mg/dL 8.4-10.2 ypes=846) EGFR (BEAKER) (test 59 mL/min/1.73 sq m ESTIMATED GFR IS NOT atop=4239) ACCURATE CREATININE CLEARANCE IN PREDICTING GLOMERULAR FILTRATION RATE. ESTIMATED GFR IS NOT APPLICABLE FOR DIALYSIS PATIENTS. B-TYPE NATRIURETIC FACTOR (BNP)2018-12-31 05:58:00 Test Item Value Reference Range Comments B-TYPE NATRIURETIC PEPTIDE (BEAKER) (test shbu=468) 99 pg/mL 0-100 CBC W/PLT COUNT & AUTO [id number] 05:35:00 Test Item Value Reference Range Comments WHITE BLOOD CELL COUNT 5.2 K/ L 3.5-10.5 (BEAKER) (test ecsd=260) RED BLOOD CELL COUNT (BEAKER) 4.00 M/ L 4.63-6.08 (test qpew=881) HEMOGLOBIN (BEAKER) (test 7.7 GM/DL 13.7-17.5 jwzv=598) HEMATOCRIT (BEAKER) (test 27.2 % 40.1-51.0 dzbk=863) MEAN CORPUSCULAR VOLUME 68.0 fL 79.0-92.2 (BEAKER) (test lnbz=849) MEAN CORPUSCULAR HEMOGLOBIN 19.3 pg 25.7-32.2 (BEAKER) (test iyil=364) MEAN CORPUSCULAR HEMOGLOBIN 28.3 GM/DL 32.3-36.5 CONC (BEAKER) (test tqek=299) RED CELL DISTRIBUTION WIDTH 20.3 % 11.6-14.4 (BEAKER) (test urtj=133) PLATELET COUNT (BEAKER) (test 107 K/CU MM 150-450 bpty=495) MEAN PLATELET VOLUME (BEAKER) fL 9.4-12.4 Unable to report due to (test sdeg=205) abnormal Platelet population distribution. NUCLEATED RED BLOOD CELLS 0 /100 WBC 0-0 (BEAKER) (test qrza=664) NEUTROPHILS RELATIVE PERCENT 67 % (BEAKER) (test snlz=401) LYMPHOCYTES RELATIVE PERCENT 19 % (BEAKER) (test qtys=172) MONOCYTES RELATIVE PERCENT 8 % (BEAKER) (test qbec=675) EOSINOPHILS RELATIVE PERCENT 5 % (BEAKER) (test ailh=533) BASOPHILS RELATIVE PERCENT 1 % (BEAKER) (test htma=524) NEUTROPHILS ABSOLUTE COUNT 3.47 K/ L 1.78-5.38 (BEAKER) (test ajbl=667) LYMPHOCYTES ABSOLUTE COUNT 0.99 K/ L 1.32-3.57 (BEAKER) (test ijqb=115) MONOCYTES ABSOLUTE COUNT 0.40 K/ L 0.30-0.82 (BEAKER) (test whae=870) EOSINOPHILS ABSOLUTE COUNT 0.24 K/ L 0.04-0.54 (BEAKER) (test ffzx=371) BASOPHILS ABSOLUTE COUNT 0.06 K/ L 0.01-0.08 (BEAKER) (test bnyr=021) IMMATURE GRANULOCYTES-RELATIVE 0 % 0-1 PERCENT (BEAKER) (test mlge=2340) POCT-GLUCOSE [id number] 21:49:00 Test Item Value Reference Range Comments POC-GLUCOSE METER (BEAKER) 291 mg/dL 70-110 TESTED AT [address] (test lcfb=0651) [place] [address] POCT-GLUCOSE [id number] 17:31:00 Test Item Value Reference Range Comments POC-GLUCOSE METER (BEAKER) 247 mg/dL 70-110 TESTED AT [address] (test mkyd=0386) [place] [address] BONE AND/OR JOINT IMAGING, WHOLE [id number] 16:47:00FINAL REPORT PROCEDURE: BONE SCAN, WHOLE BODY CPT CODE: [id number] INDICATION: Hepatocellular carcinoma, preoperative evaluation for liver [...] Verified Date/ Time: 12/30/2018 16:47:37 Reading Location: [address] [place] [address], CHEST, WITHOUT [id number] 12:26:00FINAL REPORT CT Chest without contrast History: [...] MDReport Verified Date/Time: 12/30/2018 12:26:39 Reading Location: [facility] Diagnostic Imaging Reading Room - [place] [address] POCT-GLUCOSE [id number] 11:39:00 Test Item Value Reference Range Comments POC-GLUCOSE METER (BEAKER) 250 mg/dL 70-110 TESTED AT [address] (test rysu=9345) [facility] [address] POCT-GLUCOSE [id number] 07:43:00 Test Item Value Reference Range Comments POC-GLUCOSE METER (BEAKER) 228 mg/dL 70-110 TESTED AT [address] (test ikbt=1555) [facility] [address] CALCIUM, [id number] 07:32:00 Test Item Value Reference Range Comments CALCIUM IONIZED (BEAKER) (test mbwj=430) 0.97 mmol/L 1.12-1.27 PH, BLOOD (BEAKER) (test obxa=5191) 7.46 [id number] 06:46:00 Test Item Value Reference Range Comments PHOSPHORUS (BEAKER) (test rrkb=844) 3.5 mg/dL 2.3-4.7 [id number] 06:46:00 Test Item Value Reference Range Comments MAGNESIUM (BEAKER) (test qafp=762) 1.8 mg/dL 1.6-2.6 COMPREHENSIVE METABOLIC [id number] 06:46:00 Test Item Value Reference Range Comments TOTAL PROTEIN (BEAKER) 7.2 gm/dL 6.0-8.3 (test goyv=394) ALBUMIN (BEAKER) (test 3.3 g/dL 3.5-5.0 xyml=0716) ALKALINE PHOSPHATASE 137 U/L 40-150 (BEAKER) (test evkt=490) BILIRUBIN TOTAL (BEAKER) 0.8 mg/dL 0.2-1.2 (test eorl=229) SODIUM (BEAKER) (test 136 meq/L 136-145 rixg=445) POTASSIUM (BEAKER) (test 3.7 meq/L 3.5-5.1 cgyc=264) CHLORIDE (BEAKER) (test 102 meq/L 98-107 emvo=712) CO2 (BEAKER) (test 25 meq/L 22-29 xsix=445) BLOOD UREA NITROGEN 14 mg/dL 7-21 (BEAKER) (test sgds=767) CREATININE (BEAKER) (test 1.06 mg/dL 0.57-1.25 lrcq=853) GLUCOSE RANDOM (BEAKER) 154 mg/dL 70-105 (test txsr=216) CALCIUM (BEAKER) (test 8.8 mg/dL 8.4-10.2 kavf=393) AST (SGOT) (BEAKER) (test 55 U/L 5-34 pxsx=592) ALT (SGPT) (BEAKER) (test 24 U/L 6-55 lhid=004) EGFR (BEAKER) (test 73 mL/min/1.73 sq m ESTIMATED GFR IS NOT sxlc=6303) ACCURATE CREATININE CLEARANCE IN PREDICTING GLOMERULAR FILTRATION RATE. ESTIMATED GFR IS NOT APPLICABLE FOR DIALYSIS PATIENTS. CBC W/PLT COUNT & AUTO [id number] 06:20:00 Test Item Value Reference Range Comments WHITE BLOOD CELL COUNT 5.1 K/ L 3.5-10.5 (BEAKER) (test zdlb=344) RED BLOOD CELL COUNT (BEAKER) 4.24 M/ L 4.63-6.08 (test pvsv=044) HEMOGLOBIN (BEAKER) (test 8.4 GM/DL 13.7-17.5 swpw=838) HEMATOCRIT (BEAKER) (test 28.7 % 40.1-51.0 oksd=175) MEAN CORPUSCULAR VOLUME 67.7 fL 79.0-92.2 (BEAKER) (test nywk=475) MEAN CORPUSCULAR HEMOGLOBIN 19.8 pg 25.7-32.2 (BEAKER) (test pdat=275) MEAN CORPUSCULAR HEMOGLOBIN 29.3 GM/DL 32.3-36.5 CONC (BEAKER) (test xpur=805) RED CELL DISTRIBUTION WIDTH 20.7 % 11.6-14.4 (BEAKER) (test tbim=830) PLATELET COUNT (BEAKER) (test 121 K/CU MM 150-450 cktg=415) MEAN PLATELET VOLUME (BEAKER) fL 9.4-12.4 Unable to report due to (test mmiz=476) abnormal Platelet population distribution. NUCLEATED RED BLOOD CELLS 0 /100 WBC 0-0 (BEAKER) (test upew=084) NEUTROPHILS RELATIVE PERCENT 65 % (BEAKER) (test lced=926) LYMPHOCYTES RELATIVE PERCENT 20 % (BEAKER) (test nqpm=175) MONOCYTES RELATIVE PERCENT 8 % (BEAKER) (test chll=888) EOSINOPHILS RELATIVE PERCENT 5 % (BEAKER) (test bufb=474) BASOPHILS RELATIVE PERCENT 1 % (BEAKER) (test rfwt=283) NEUTROPHILS ABSOLUTE COUNT 3.36 K/ L 1.78-5.38 (BEAKER) (test qefs=700) LYMPHOCYTES ABSOLUTE COUNT 1.02 K/ L 1.32-3.57 (BEAKER) (test bjml=905) MONOCYTES ABSOLUTE COUNT 0.42 K/ L 0.30-0.82 (BEAKER) (test zvmm=261) EOSINOPHILS ABSOLUTE COUNT 0.28 K/ L 0.04-0.54 (BEAKER) (test dwzq=447) BASOPHILS ABSOLUTE COUNT 0.05 K/ L 0.01-0.08 (BEAKER) (test sxze=771) IMMATURE GRANULOCYTES-RELATIVE 0 % 0-1 PERCENT (BEAKER) (test xlzl=4906) POCT-GLUCOSE [id number] 21:51:00 Test Item Value Reference Range Comments POC-GLUCOSE METER (BEAKER) 279 mg/dL 70-110 TESTED AT [address] (test bour=2768) [place] [id number] POCT-GLUCOSE [id number] 17:37:00 Test Item Value Reference Range Comments POC-GLUCOSE METER (BEAKER) 151 mg/dL 70-110 TESTED AT [address] (test jhjl=1242) [place] [id number] BASIC METABOLIC [id number] 16:15:00 Test Item Value Reference Range Comments SODIUM (BEAKER) (test 138 meq/L 136-145 gmuk=482) POTASSIUM (BEAKER) (test 3.7 meq/L 3.5-5.1 flos=447) CHLORIDE (BEAKER) (test 102 meq/L 98-107 blvv=969) CO2 (BEAKER) (test 27 meq/L 22-29 wmtp=705) BLOOD UREA NITROGEN 14 mg/dL 7-21 (BEAKER) (test nfmk=098) CREATININE (BEAKER) (test 1.25 mg/dL 0.57-1.25 yfkz=692) GLUCOSE RANDOM (BEAKER) 129 mg/dL 70-105 (test xvom=980) CALCIUM (BEAKER) (test 9.4 mg/dL 8.4-10.2 ueft=512) EGFR (BEAKER) (test 60 mL/min/1.73 sq m ESTIMATED GFR IS NOT szyr=3265) ACCURATE CREATININE CLEARANCE IN PREDICTING GLOMERULAR FILTRATION RATE. ESTIMATED GFR IS NOT APPLICABLE FOR DIALYSIS PATIENTS. Call [id number] 12:24:00 Test Item Value Reference Range Comments POC-GLUCOSE METER (BEAKER) 358 mg/dL 70-110 TESTED AT [address] (test bbjy=5351) [place] [id number] POCT-GLUCOSE [id number] 07:53:00 Test Item Value Reference Range Comments POC-GLUCOSE METER (BEAKER) 173 mg/dL 70-110 TESTED AT [address] (test cupg=6353) [place] [address] POCT-GLUCOSE [id number] 22:33:00 Test Item Value Reference Range Comments POC-GLUCOSE METER (BEAKER) 228 mg/dL 70-110 TESTED AT [address] (test tbve=2976) [place] [address] [id number] 09:58:00 Test Item Value Reference Range Comments PHOSPHORUS (BEAKER) (test phrq=274) 3.5 mg/dL 2.3-4.7 [id number] 09:58:00 Test Item Value Reference Range Comments MAGNESIUM (BEAKER) (test eenq=348) 1.9 mg/dL 1.6-2.6 COMPREHENSIVE METABOLIC [id number] 09:58:00 Test Item Value Reference Range Comments TOTAL PROTEIN (BEAKER) 7.5 gm/dL 6.0-8.3 (test jyyo=558) ALBUMIN (BEAKER) (test 3.5 g/dL 3.5-5.0 vpbr=6585) ALKALINE PHOSPHATASE 129 U/L 40-150 (BEAKER) (test xaey=935) BILIRUBIN TOTAL (BEAKER) 0.9 mg/dL 0.2-1.2 (test mpvj=644) SODIUM (BEAKER) (test 136 meq/L 136-145 luuo=583) POTASSIUM (BEAKER) (test 3.6 meq/L 3.5-5.1 dkwy=026) CHLORIDE (BEAKER) (test 103 meq/L 98-107 vaxt=934) CO2 (BEAKER) (test 24 meq/L 22-29 lxxb=279) BLOOD UREA NITROGEN 14 mg/dL 7-21 (BEAKER) (test luzt=251) CREATININE (BEAKER) (test 1.17 mg/dL 0.57-1.25 hdrv=514) GLUCOSE RANDOM (BEAKER) 224 mg/dL 70-105 (test rnyw=852) CALCIUM (BEAKER) (test 9.0 mg/dL 8.4-10.2 vkfy=663) AST (SGOT) (BEAKER) (test 57 U/L 5-34 mqvg=727) ALT (SGPT) (BEAKER) (test 25 U/L 6-55 dnod=574) EGFR (BEAKER) (test 65 mL/min/1.73 sq m ESTIMATED GFR IS NOT wydn=6974) ACCURATE CREATININE CLEARANCE IN PREDICTING GLOMERULAR FILTRATION RATE. ESTIMATED GFR IS NOT APPLICABLE FOR DIALYSIS PATIENTS. POCT-GLUCOSE [id number] 08:36:00 Test Item Value Reference Range Comments POC-GLUCOSE METER (BEAKER) 220 mg/dL 70-110 TESTED AT [facility] [address] (test mprz=9476) [facility] [address] CBC W/PLT COUNT & AUTO [id number] 07:42:00 Test Item Value Reference Range Comments WHITE BLOOD CELL COUNT 5.4 K/ L 3.5-10.5 (BEAKER) (test nyta=585) RED BLOOD CELL COUNT (BEAKER) 4.30 M/ L 4.63-6.08 (test wkzu=523) HEMOGLOBIN (BEAKER) (test 8.6 GM/DL 13.7-17.5 tljp=016) HEMATOCRIT (BEAKER) (test 29.3 % 40.1-51.0 didm=597) MEAN CORPUSCULAR VOLUME 68.1 fL 79.0-92.2 (BEAKER) (test kecu=078) MEAN CORPUSCULAR HEMOGLOBIN 20.0 pg 25.7-32.2 (BEAKER) (test hete=686) MEAN CORPUSCULAR HEMOGLOBIN 29.4 GM/DL 32.3-36.5 CONC (BEAKER) (test dvur=194) RED CELL DISTRIBUTION WIDTH 20.7 % 11.6-14.4 (BEAKER) (test yjxm=048) PLATELET COUNT (BEAKER) (test 112 K/CU MM 150-450 ghyj=355) MEAN PLATELET VOLUME (BEAKER) fL 9.4-12.4 Unable to report due to (test vyss=248) abnormal Platelet population distribution. NUCLEATED RED BLOOD CELLS 0 /100 WBC 0-0 (BEAKER) (test yvet=734) NEUTROPHILS RELATIVE PERCENT 71 % (BEAKER) (test utbt=518) LYMPHOCYTES RELATIVE PERCENT 15 % (BEAKER) (test suhv=553) MONOCYTES RELATIVE PERCENT 9 % (BEAKER) (test zsqw=414) EOSINOPHILS RELATIVE PERCENT 5 % (BEAKER) (test dlpm=149) BASOPHILS RELATIVE PERCENT 1 % (BEAKER) (test ljwi=527) NEUTROPHILS ABSOLUTE COUNT 3.79 K/ L 1.78-5.38 (BEAKER) (test rrjv=197) LYMPHOCYTES ABSOLUTE COUNT 0.79 K/ L 1.32-3.57 (BEAKER) (test pszo=157) MONOCYTES ABSOLUTE COUNT 0.48 K/ L 0.30-0.82 (BEAKER) (test hyvb=899) EOSINOPHILS ABSOLUTE COUNT 0.28 K/ L 0.04-0.54 (BEAKER) (test oucs=353) BASOPHILS ABSOLUTE COUNT 0.04 K/ L 0.01-0.08 (BEAKER) (test shjs=799) IMMATURE GRANULOCYTES-RELATIVE 0 % 0-1 PERCENT (BEAKER) (test ngpb=5386) CALCIUM, [id number] 06:42:00 Test Item Value Reference Range Comments CALCIUM IONIZED (BEAKER) (test dncx=219) 1.07 mmol/L 1.12-1.27 PH, BLOOD (AKER) (test roxw=6181) 7.42 POCT-GLUCOSE [id number] 22:30:00 Test Item Value Reference Range Comments POC-GLUCOSE METER (BEAKER) 183 mg/dL 70-110 TESTED AT [address] (test rdep=4881) [facility] [address] POCT-GLUCOSE [id number] 18:41:00 Test Item Value Reference Range Comments POC-GLUCOSE METER (BEAKER) 278 mg/dL 70-110 TESTED AT [address] (test dbdw=2697) [place] [id number] POCT-GLUCOSE [id number] 11:50:00 Test Item Value Reference Range Comments POC-GLUCOSE METER (BEAKER) 142 mg/dL 70-110 TESTED AT [address] (test vosu=6625) [facility] [address] POCT-GLUCOSE [id number] 10:36:00 Test Item Value Reference Range Comments POC-GLUCOSE METER (BEAKER) 130 mg/dL 70-110 TESTED AT [address] (test yylr=3304) [facility] [address] POCT-GLUCOSE [id number] 07:40:00 Test Item Value Reference Range Comments POC-GLUCOSE METER (BEAKER) 145 mg/dL 70-110 TESTED AT [address] (test diek=1254) [facility] [address] CBC W/PLT COUNT & AUTO [id number] 06:58:00 Test Item Value Reference Range Comments WHITE BLOOD CELL COUNT 5.1 K/ L 3.5-10.5 (BEAKER) (test sfnu=934) RED BLOOD CELL COUNT (BEAKER) 4.31 M/ L 4.63-6.08 (test mnyf=136) HEMOGLOBIN (BEAKER) (test 8.3 GM/DL 13.7-17.5 wcfo=606) HEMATOCRIT (BEAKER) (test 29.6 % 40.1-51.0 lzjj=959) MEAN CORPUSCULAR VOLUME 68.7 fL 79.0-92.2 (BEAKER) (test halz=753) MEAN CORPUSCULAR HEMOGLOBIN 19.3 pg 25.7-32.2 (BEAKER) (test pbod=436) MEAN CORPUSCULAR HEMOGLOBIN 28.0 GM/DL 32.3-36.5 CONC (BEAKER) (test hwfc=359) RED CELL DISTRIBUTION WIDTH 21.1 % 11.6-14.4 (BEAKER) (test leid=913) PLATELET COUNT (BEAKER) (test 108 K/CU MM 150-450 mcpk=766) MEAN PLATELET VOLUME (BEAKER) fL 9.4-12.4 Unable to report due to (test qbvp=374) abnormal Platelet population distribution. NUCLEATED RED BLOOD CELLS 0 /100 WBC 0-0 (BEAKER) (test jdvd=667) NEUTROPHILS RELATIVE PERCENT 65 % (BEAKER) (test fdmf=053) LYMPHOCYTES RELATIVE PERCENT 20 % (BEAKER) (test ktzj=258) MONOCYTES RELATIVE PERCENT 8 % (BEAKER) (test hcbj=262) EOSINOPHILS RELATIVE PERCENT 7 % (BEAKER) (test lhzb=976) BASOPHILS RELATIVE PERCENT 1 % (BEAKER) (test aumj=307) NEUTROPHILS ABSOLUTE COUNT 3.30 K/ L 1.78-5.38 (BEAKER) (test kodn=021) LYMPHOCYTES ABSOLUTE COUNT 1.00 K/ L 1.32-3.57 (BEAKER) (test wlaq=832) MONOCYTES ABSOLUTE COUNT 0.40 K/ L 0.30-0.82 (BEAKER) (test inlm=999) EOSINOPHILS ABSOLUTE COUNT 0.33 K/ L 0.04-0.54 (BEAKER) (test jgmb=905) BASOPHILS ABSOLUTE COUNT 0.05 K/ L 0.01-0.08 (BEAKER) (test xsyx=070) IMMATURE GRANULOCYTES-RELATIVE 0 % 0-1 PERCENT (BEAKER) (test yhhl=2376) [id number] 06:56:00 Test Item Value Reference Range Comments PHOSPHORUS (BEAKER) (test fsaj=978) 3.7 mg/dL 2.3-4.7 [id number] 06:56:00 Test Item Value Reference Range Comments MAGNESIUM (BEAKER) (test wjzj=355) 1.6 mg/dL 1.6-2.6 BASIC METABOLIC [id number] 06:56:00 Test Item Value Reference Range Comments SODIUM (BEAKER) (test 138 meq/L 136-145 hykr=852) POTASSIUM (BEAKER) (test 3.9 meq/L 3.5-5.1 tytl=782) CHLORIDE (BEAKER) (test 105 meq/L 98-107 vqzi=070) CO2 (BEAKER) (test 25 meq/L 22-29 rdie=013) BLOOD UREA NITROGEN 13 mg/dL 7-21 (BEAKER) (test kotq=598) CREATININE (BEAKER) (test 1.06 mg/dL 0.57-1.25 acgn=474) GLUCOSE RANDOM (BEAKER) 115 mg/dL 70-105 (test vycm=566) CALCIUM (BEAKER) (test 8.8 mg/dL 8.4-10.2 bqnm=860) EGFR (BEAKER) (test 73 mL/min/1.73 sq m ESTIMATED GFR IS NOT ahww=7924) ACCURATE CREATININE CLEARANCE IN PREDICTING GLOMERULAR FILTRATION RATE. ESTIMATED GFR IS NOT APPLICABLE FOR DIALYSIS PATIENTS. CALCIUM, [id number] 06:46:00 Test Item Value Reference Range Comments CALCIUM IONIZED (BEAKER) (test ymdu=071) 0.89 mmol/L 1.12-1.27 PH, BLOOD (BEAKER) (test nxhe=3228) 7.41 PROTHROMBIN [id number] 06:38:00 Test Item Value Reference Range Comments PROTIME (BEAKER) (test gcfi=866) 15.2 seconds 11.7-14.7 INR (BEAKER) (test cvvx=750) 1.2 <=5.9 RECOMMENDED COUMADIN/WARFARIN INR THERAPY RANGESSTANDARD DOSE: 2.0 - 3.0 Includes: PROPHYLAXIS forvenous thrombosis, systemic embolization; TREATMENT for venous thrombosis and/or pulmonary embolus.HIGH RISK: Target INR is 2.5-3.5 for patients with mechanical heart valves.B-TYPE NATRIURETIC FACTOR (BNP)2018-12 06:35:00 Test Item Value Reference Range Comments B-TYPE NATRIURETIC PEPTIDE (BEAKER) (test 135 pg/mL 0-100 cpda=632) POCT-GLUCOSE [id number] 22:28:00 Test Item Value Reference Range Comments POC-GLUCOSE METER (BEAKER) 109 mg/dL 70-110 TESTED AT [facility] [address] (test wioy=5389) [facility] [address] POCT-GLUCOSE [id number] 21:07:00 Test Item Value Reference Range Comments POC-GLUCOSE METER (BEAKER) 91 mg/dL 70-110 TESTED AT [address] (test sgbh=8003) [facility] [address] POCT-GLUCOSE [id number] 16:48:00 Test Item Value Reference Range Comments POC-GLUCOSE METER (BEAKER) 487 mg/dL 70-110 TESTED AT [address] (test pane=9007) [facility] [address] HOPE [id number] 12:58:00Reason for Exam:->recurrent variceal bleeding, portal hypertensionFINAL REPORT History: Portal hypertension, history of variceal bleeding. PROCEDURE: Following informed written consent, general endotracheal anesthesia was administered and the patient's right cervical region was prepped and draped in the usual sterile manner. Access was gained the right internal jugular vein using a micropuncture needle. A 9 Ivorian sheath was placed at the access site into the jugular vein. A 5 Ivorian multipurpose catheter and wire were used to carefully select the hepatic vein and perform a hepatic venogram. Hepatic venous pressures were then performed as described below. Following a discussion with the patient's referring cake maker, Dr. Cano, who also conferred with cardiology, [...] ( Ka,r): 55 mGy Signed: Kimber Diaz [facility] Verified Date/Time: 12/26/2018 12: 58:23 Reading Location: [place] [address] Angio Body Reading Room POCT-GLUCOSE [id number] 12:50:00 Test Item Value Reference Range Comments POC-GLUCOSE METER (BEAKER) 124 mg/dL 70-110 TESTED AT [address] (test njlj=7234) [place] [id number] POCT-GLUCOSE [id number] 10:41:00 Test Item Value Reference Range Comments POC-GLUCOSE METER (BEAKER) 158 mg/dL 70-110 TESTED AT [facility] [address] (test rdqw=3755) [facility] [address] COMPREHENSIVE METABOLIC [id number] 07:58:00 Test Item Value Reference Range Comments TOTAL PROTEIN (BEAKER) 7.2 gm/dL 6.0-8.3 (test rouf=668) ALBUMIN (BEAKER) (test 3.0 g/dL 3.5-5.0 cbrc=2551) ALKALINE PHOSPHATASE 142 U/L 40-150 (BEAKER) (test qqxy=737) BILIRUBIN TOTAL (BEAKER) 0.9 mg/dL 0.2-1.2 (test othr=339) SODIUM (BEAKER) (test 138 meq/L 136-145 buvo=395) POTASSIUM (BEAKER) (test 4.4 meq/L 3.5-5.1 irbg=405) CHLORIDE (BEAKER) (test 106 meq/L 98-107 rsas=003) CO2 (BEAKER) (test 26 meq/L 22-29 zrlh=285) BLOOD UREA NITROGEN 10 mg/dL 7-21 (BEAKER) (test bwio=675) CREATININE (BEAKER) (test 0.91 mg/dL 0.57-1.25 jwqj=999) GLUCOSE RANDOM (BEAKER) 134 mg/dL 70-105 (test gpjc=653) CALCIUM (BEAKER) (test 9.3 mg/dL 8.4-10.2 bopb=130) AST (SGOT) (BEAKER) (test 69 U/L 5-34 hexq=082) ALT (SGPT) (BEAKER) (test 29 U/L 6-55 qzvm=305) EGFR (BEAKER) (test 86 mL/min/1.73 sq m ESTIMATED GFR IS NOT rlkj=2830) ACCURATE CREATININE CLEARANCE IN PREDICTING GLOMERULAR FILTRATION RATE. ESTIMATED GFR IS NOT APPLICABLE FOR DIALYSIS PATIENTS. [id number] 07:58:00 Test Item Value Reference Range Comments PROTIME (BEAKER) (test papt=335) 15.4 seconds 11.7-14.7 INR (BEAKER) (test psdr=514) 1.2 <=5.9 PARTIAL THROMBOPLASTIN TIME (BEAKER) (test 35.4 seconds 22.5-36.0 sfkj=529) RECOMMENDED COUMADIN/WARFARIN INR THERAPY RANGESSTANDARD DOSE: 2.0 - 3.0 Includes: PROPHYLAXIS forvenous thrombosis, systemic embolization; TREATMENT for venous thrombosis and/or pulmonary embolus.HIGH RISK: Target INR is 2.5-3.5 for patients with mechanical heart valves.CBC W/PLT COUNT & AUTO [id number] 07:52:00 Test Item Value Reference Range Comments WHITE BLOOD CELL COUNT (BEAKER) (test ylhw=077) 4.6 K/ L 3.5-10.5 RED BLOOD CELL COUNT (BEAKER) (test tamz=506) 4.35 M/ L 4.63-6.08 HEMOGLOBIN (BEAKER) (test rcmj=386) 8.6 GM/DL 13.7-17.5 HEMATOCRIT (BEAKER) (test rgul=207) 30.1 % 40.1-51.0 MEAN CORPUSCULAR VOLUME (BEAKER) (test ocgx=212) 69.2 fL 79.0-92.2 MEAN CORPUSCULAR HEMOGLOBIN (BEAKER) (test 19.8 pg 25.7-32.2 sypr=699) MEAN CORPUSCULAR HEMOGLOBIN CONC (BEAKER) (test 28.6 GM/DL 32.3-36.5 zgnx=850) RED CELL DISTRIBUTION WIDTH (BEAKER) (test 21.3 % 11.6-14.4 hwki=201) PLATELET COUNT (BEAKER) (test eihr=434) 110 K/CU MM 150-450 MEAN PLATELET VOLUME (BEAKER) (test dpdx=197) 10.1 fL 9.4-12.4 NUCLEATED RED BLOOD CELLS (BEAKER) (test 0 /100 WBC 0-0 ddks=107) NEUTROPHILS RELATIVE PERCENT (BEAKER) (test 66 % mkdd=659) LYMPHOCYTES RELATIVE PERCENT (BEAKER) (test 19 % qces=936) MONOCYTES RELATIVE PERCENT (BEAKER) (test 8 % yoat=545) EOSINOPHILS RELATIVE PERCENT (BEAKER) (test 6 % pbsm=020) BASOPHILS RELATIVE PERCENT (BEAKER) (test 1 % hfqp=109) NEUTROPHILS ABSOLUTE COUNT (BEAKER) (test 3.03 K/ L 1.78-5.38 wlyj=331) LYMPHOCYTES ABSOLUTE COUNT (BEAKER) (test 0.88 K/ L 1.32-3.57 rcxs=529) MONOCYTES ABSOLUTE COUNT (BEAKER) (test 0.37 K/ L 0.30-0.82 ckns=076) EOSINOPHILS ABSOLUTE COUNT (BEAKER) (test 0.25 K/ L 0.04-0.54 brwk=422) BASOPHILS ABSOLUTE COUNT (BEAKER) (test 0.04 K/ L 0.01-0.08 yzpz=490) IMMATURE GRANULOCYTES-RELATIVE PERCENT (BEAKER) 0 % 0-1 (test ihwu=2768) POCT-GLUCOSE [id number] 00:26:00 Test Item Value Reference Range Comments POC-GLUCOSE METER (BEAKER) 161 mg/dL 70-110 TESTED AT [address] (test xspe=1056) [place] [id number] URINALYSIS W/ [id number] 17:35:00 Test Item Value Reference Range Comments COLOR (BEAKER) (test omri=306) Light Yellow CLARITY (BEAKER) (test zwjk=270) Clear SPECIFIC GRAVITY UA (BEAKER) (test rwkv=185) 1.008 1.001-1.035 PH UA (BEAKER) (test kpmy=993) 7.5 5.0-8.0 PROTEIN UA (BEAKER) (test svgy=718) 30 mg/dL Negative GLUCOSE UA (BEAKER) (test kmoi=203) 30 mg/dL Negative KETONES UA (BEAKER) (test wuas=316) Negative Negative BILIRUBIN UA (BEAKER) (test qyph=581) Negative Negative BLOOD UA (BEAKER) (test zpha=742) Trace Negative NITRITE UA (BEAKER) (test bqmx=864) Negative Negative LEUKOCYTE ESTERASE UA (BEAKER) (test rwgm=276) Negative Negative UROBILINOGEN UA (BEAKER) (test iqro=034) 0.2 mg/dL 0.2-1.0 RBC UA (BEAKER) (test jake=334) 1 /HPF WBC UA (BEAKER) (test npcg=440) 1 /HPF SOURCE(BEAKER) (test zpwa=9368) Urine, Voided POCT-GLUCOSE [id number] 16:55:00 Test Item Value Reference Range Comments POC-GLUCOSE METER (BEAKER) 234 mg/dL 70-110 TESTED AT [address] (test xwlm=8373) [facility] [address] POCT-GLUCOSE [id number] 12:09:00 Test Item Value Reference Range Comments POC-GLUCOSE METER (BEAKER) 199 mg/dL 70-110 TESTED AT [address] (test ekop=7526) [facility] [address] POCT-GLUCOSE [id number] 07:58:00 Test Item Value Reference Range Comments POC-GLUCOSE METER (BEAKER) 221 mg/dL 70-110 TESTED AT [address] (test yjxo=8636) [facility] [address] POCT-GLUCOSE [id number] 22:49:00 Test Item Value Reference Range Comments POC-GLUCOSE METER (BEAKER) 210 mg/dL 70-110 TESTED AT [address] (test xpym=0267) [facility] [address] POCT-GLUCOSE [id number] 14:45:00 Test Item Value Reference Range Comments POC-GLUCOSE METER (BEAKER) 128 mg/dL 70-110 TESTED AT [address] (test ftwb=8050) [facility] [address] POCT-GLUCOSE [id number] 12:03:00 Test Item Value Reference Range Comments POC-GLUCOSE METER (BEAKER) 136 mg/dL 70-110 TESTED AT [address] (test sasd=6479) [facility] [address] COMPREHENSIVE METABOLIC [id number] 09:07:00 Test Item Value Reference Range Comments TOTAL PROTEIN (BEAKER) 6.9 gm/dL 6.0-8.3 Specimen slightly (test qqbz=032) hemolyzed ALBUMIN (BEAKER) (test 2.7 g/dL 3.5-5.0 Specimen slightly zdfe=3340) hemolyzed ALKALINE PHOSPHATASE 136 U/L 40-150 (BEAKER) (test ljqg=956) BILIRUBIN TOTAL (BEAKER) 1.1 mg/dL 0.2-1.2 Specimen slightly (test kvyz=403) hemolyzed SODIUM (BEAKER) (test 135 meq/L 136-145 uwiw=559) POTASSIUM (BEAKER) (test 4.4 meq/L 3.5-5.1 Specimen slightly iata=156) hemolyzed CHLORIDE (BEAKER) (test 106 meq/L 98-107 gezj=202) CO2 (BEAKER) (test 26 meq/L 22-29 vmom=529) BLOOD UREA NITROGEN 7 mg/dL 7-21 (BEAKER) (test rrqp=792) CREATININE (BEAKER) (test 0.85 mg/dL 0.57-1.25 Specimen slightly rftb=509) hemolyzed GLUCOSE RANDOM (BEAKER) 118 mg/dL 70-105 (test zofe=894) CALCIUM (BEAKER) (test 8.8 mg/dL 8.4-10.2 fzpw=048) AST (SGOT) (BEAKER) (test 69 U/L 5-34 Specimen slightly pzph=581) hemolyzed ALT (SGPT) (BEAKER) (test 28 U/L 6-55 Specimen slightly cykp=234) hemolyzed EGFR (BEAKER) (test 94 mL/min/1.73 sq m ESTIMATED GFR IS NOT vvse=4488) ACCURATE CREATININE CLEARANCE IN PREDICTING GLOMERULAR FILTRATION RATE. ESTIMATED GFR IS NOT APPLICABLE FOR DIALYSIS PATIENTS. CBC W/PLT COUNT & AUTO [id number] 08:37:00 Test Item Value Reference Range Comments WHITE BLOOD CELL COUNT 4.4 K/ L 3.5-10.5 (BEAKER) (test ccmt=147) RED BLOOD CELL COUNT (BEAKER) 4.31 M/ L 4.63-6.08 (test keoa=756) HEMOGLOBIN (BEAKER) (test 8.4 GM/DL 13.7-17.5 togh=712) HEMATOCRIT (BEAKER) (test 30.2 % 40.1-51.0 ykfd=573) MEAN CORPUSCULAR VOLUME 70.1 fL 79.0-92.2 (BEAKER) (test orao=989) MEAN CORPUSCULAR HEMOGLOBIN 19.5 pg 25.7-32.2 (BEAKER) (test nmfl=141) MEAN CORPUSCULAR HEMOGLOBIN 27.8 GM/DL 32.3-36.5 CONC (BEAKER) (test nrbq=491) RED CELL DISTRIBUTION WIDTH 21.9 % 11.6-14.4 (BEAKER) (test apiv=258) PLATELET COUNT (BEAKER) (test 114 K/CU MM 150-450 znvk=546) MEAN PLATELET VOLUME (BEAKER) fL 9.4-12.4 Unable to report due to (test pnnb=705) abnormal Platelet population distribution. NUCLEATED RED BLOOD CELLS 0 /100 WBC 0-0 (BEAKER) (test idxq=631) NEUTROPHILS RELATIVE PERCENT 62 % (BEAKER) (test zgtx=224) LYMPHOCYTES RELATIVE PERCENT 22 % (BEAKER) (test pcbl=590) MONOCYTES RELATIVE PERCENT 8 % (BEAKER) (test koiu=728) EOSINOPHILS RELATIVE PERCENT 6 % (BEAKER) (test zekg=650) BASOPHILS RELATIVE PERCENT 1 % (BEAKER) (test ibow=316) NEUTROPHILS ABSOLUTE COUNT 2.75 K/ L 1.78-5.38 (BEAKER) (test lwgo=298) LYMPHOCYTES ABSOLUTE COUNT 0.98 K/ L 1.32-3.57 (BEAKER) (test npal=615) MONOCYTES ABSOLUTE COUNT 0.34 K/ L 0.30-0.82 (BEAKER) (test dkxe=029) EOSINOPHILS ABSOLUTE COUNT 0.28 K/ L 0.04-0.54 (BEAKER) (test gqxg=555) BASOPHILS ABSOLUTE COUNT 0.06 K/ L 0.01-0.08 (BEAKER) (test avul=093) IMMATURE GRANULOCYTES-RELATIVE 1 % 0-1 PERCENT (BEAKER) (test hplh=5612) POCT-GLUCOSE [id number] 08:07:00 Test Item Value Reference Range Comments POC-GLUCOSE METER (BEAKER) 144 mg/dL 70-110 TESTED AT [address] (test aqkp=4883) [place] [address] [id number] 23:43:00 Test Item Value Reference Range Comments MAGNESIUM (BEAKER) (test qevi=028) 1.7 mg/dL 1.6-2.6 POCT-GLUCOSE [id number] 22:22:00 Test Item Value Reference Range Comments POC-GLUCOSE METER (BEAKER) 211 mg/dL 70-110 TESTED AT [address] (test mcrd=8992) [place] [address] POCT-GLUCOSE [id number] 17:13:00 Test Item Value Reference Range Comments POC-GLUCOSE METER (BEAKER) 202 mg/dL 70-110 TESTED AT [address] (test dfle=1607) [place] [address] [id number] 16:14:00 Test Item Value Reference Range Comments T3 TOTAL (BEAKER) (test zgzk=038) 108 ng/dL 48-159 POCT-GLUCOSE [id number] 13:49:00 Test Item Value Reference Range Comments POC-GLUCOSE METER (BEAKER) 303 mg/dL 70-110 TESTED AT [facility] [address] (test njza=1927) [facility] [address] POCT-GLUCOSE [id number] 12:15:00 Test Item Value Reference Range Comments POC-GLUCOSE METER (BEAKER) 304 mg/dL 70-110 Notified JADA NIX/TESTED AT [facility] (test kmsq=8838) [address] [facility] [address] ANTI-MITOCHONDRIAL AB, REFLEX TO [id number] 08:35:00 Test Item Value Reference Range Comments SCAN RESULT (test mcmx=[id number]) POCT-GLUCOSE [id number] 08:08:00 Test Item Value Reference Range Comments POC-GLUCOSE METER (BEAKER) 146 mg/dL 70-110 TESTED AT [facility] [address] (test hthl=2397) [facility] [address] HEPATIC FUNCTION [id number] 06:32:00 Test Item Value Reference Range Comments TOTAL PROTEIN (BEAKER) (test iirb=710) 6.5 gm/dL 6.0-8.3 ALBUMIN (BEAKER) (test djsq=9623) 2.7 g/dL 3.5-5.0 BILIRUBIN TOTAL (BEAKER) (test rjkf=943) 0.8 mg/dL 0.2-1.2 BILIRUBIN DIRECT (BEAKER) (test qksh=476) 0.6 mg/dL 0.1-0.5 ALKALINE PHOSPHATASE (BEAKER) (test npss=769) 141 U/L 40-150 AST (SGOT) (BEAKER) (test mzjb=251) 66 U/L 5-34 ALT (SGPT) (BEAKER) (test apev=089) 27 U/L 6-55 BASIC METABOLIC [id number] 06:32:00 Test Item Value Reference Range Comments SODIUM (BEAKER) (test 137 meq/L 136-145 ktxh=888) POTASSIUM (BEAKER) (test 4.0 meq/L 3.5-5.1 xanx=159) CHLORIDE (BEAKER) (test 106 meq/L 98-107 fzbw=146) CO2 (BEAKER) (test 26 meq/L 22-29 erww=278) BLOOD UREA NITROGEN 7 mg/dL 7-21 (BEAKER) (test wjcg=208) CREATININE (BEAKER) (test 0.81 mg/dL 0.57-1.25 epuz=807) GLUCOSE RANDOM (BEAKER) 134 mg/dL 70-105 (test miha=890) CALCIUM (BEAKER) (test 8.6 mg/dL 8.4-10.2 eias=619) EGFR (BEAKER) (test 99 mL/min/1.73 sq m ESTIMATED GFR IS NOT zvuw=9981) ACCURATE CREATININE CLEARANCE IN PREDICTING GLOMERULAR FILTRATION RATE. ESTIMATED GFR IS NOT APPLICABLE FOR DIALYSIS PATIENTS. CBC (HEMOGRAM ONLY)2018-12-23 05:34:00 Test Item Value Reference Range Comments WHITE BLOOD CELL COUNT (BEAKER) (test kggx=443) 4.4 K/ L 3.5-10.5 RED BLOOD CELL COUNT (BEAKER) (test gifa=654) 4.11 M/ L 4.63-6.08 HEMOGLOBIN (BEAKER) (test jave=638) 8.0 GM/DL 13.7-17.5 HEMATOCRIT (BEAKER) (test iiik=854) 28.2 % 40.1-51.0 MEAN CORPUSCULAR VOLUME (BEAKER) (test inhe=392) 68.6 fL 79.0-92.2 MEAN CORPUSCULAR HEMOGLOBIN (BEAKER) (test 19.5 pg 25.7-32.2 thrx=384) MEAN CORPUSCULAR HEMOGLOBIN CONC (BEAKER) (test 28.4 GM/DL 32.3-36.5 sjbv=483) RED CELL DISTRIBUTION WIDTH (BEAKER) (test 21.5 % 11.6-14.4 ywhg=900) PLATELET COUNT (BEAKER) (test dxiw=204) 121 K/CU MM 150-450 MEAN PLATELET VOLUME (BEAKER) (test zwog=913) 10.2 fL 9.4-12.4 NUCLEATED RED BLOOD CELLS (BEAKER) (test 0 /100 WBC 0-0 mjaz=021) PROTHROMBIN [id number] 05:27:00 Test Item Value Reference Range Comments PROTIME (BEAKER) (test xvol=141) 15.2 seconds 11.7-14.7 INR (BEAKER) (test hzfw=423) 1.2 <=5.9 RECOMMENDED COUMADIN/WARFARIN INR THERAPY RANGESSTANDARD DOSE: 2.0 - 3.0 Includes: PROPHYLAXIS forvenous thrombosis, systemic embolization; TREATMENT for venous thrombosis and/or pulmonary embolus.HIGH RISK: Target INR is 2.5-3.5 for patients with mechanical heart valves.POCT-GLUCOSE [id number] 23:11:00 Test Item Value Reference Range Comments POC-GLUCOSE METER (BEAKER) 224 mg/dL 70-110 TESTED AT [address] (test dpza=8153) [facility] [address] POCT-GLUCOSE [id number] 16:52:00 Test Item Value Reference Range Comments POC-GLUCOSE METER (BEAKER) 250 mg/dL 70-110 TESTED AT [address] (test hmkw=0404) [facility] [address] POCT-GLUCOSE [id number] 11:56:00 Test Item Value Reference Range Comments POC-GLUCOSE METER (BEAKER) 310 mg/dL 70-110 TESTED AT [address] (test mkmq=9617) [facility] [address] POCT-GLUCOSE [id number] 07:50:00 Test Item Value Reference Range Comments POC-GLUCOSE METER (BEAKER) 267 mg/dL 70-110 TESTED AT [address] (test fivb=3630) [facility] [address] COMPREHENSIVE METABOLIC [id number] 05:05:00 Test Item Value Reference Range Comments TOTAL PROTEIN (BEAKER) 6.3 gm/dL 6.0-8.3 (test recd=989) ALBUMIN (BEAKER) (test 2.6 g/dL 3.5-5.0 aitb=3738) ALKALINE PHOSPHATASE 112 U/L 40-150 (BEAKER) (test xtck=242) BILIRUBIN TOTAL (BEAKER) 0.9 mg/dL 0.2-1.2 (test bcff=244) SODIUM (BEAKER) (test 138 meq/L 136-145 mhss=918) POTASSIUM (BEAKER) (test 3.9 meq/L 3.5-5.1 spqz=934) CHLORIDE (BEAKER) (test 108 meq/L 98-107 gjms=951) CO2 (BEAKER) (test 25 meq/L 22-29 hrcv=445) BLOOD UREA NITROGEN 6 mg/dL 7-21 (BEAKER) (test zasw=685) CREATININE (BEAKER) (test 0.82 mg/dL 0.57-1.25 dggr=406) GLUCOSE RANDOM (BEAKER) 146 mg/dL 70-105 (test ufgy=096) CALCIUM (BEAKER) (test 8.8 mg/dL 8.4-10.2 xupj=303) AST (SGOT) (BEAKER) (test 73 U/L 5-34 nvze=913) ALT (SGPT) (BEAKER) (test 25 U/L 6-55 bqqh=234) EGFR (BEAKER) (test 98 mL/min/1.73 sq m ESTIMATED GFR IS NOT fzkj=7438) ACCURATE CREATININE CLEARANCE IN PREDICTING GLOMERULAR FILTRATION RATE. ESTIMATED GFR IS NOT APPLICABLE FOR DIALYSIS PATIENTS. POCT-GLUCOSE [id number] 22:34:00 Test Item Value Reference Range Comments POC-GLUCOSE METER (BEAKER) 186 mg/dL 70-110 TESTED AT [address] (test dkhw=4308) [place] [id number] POCT-GLUCOSE [id number] 18:03:00 Test Item Value Reference Range Comments POC-GLUCOSE METER (BEAKER) 206 mg/dL 70-110 TESTED AT [address] (test phaa=0694) [place] [address] RAD, MANDIBLE, MIN 4 [id number] 17:16:00Reason for exam:->liver transplant evalShould this be [...] Mauricio Verified Date/Time: 12/21/2018 17:16:26 Reading Location: [address] Reading Room POCT-GLUCOSE [id number] 11:42:00 Test Item Value Reference Range Comments POC-GLUCOSE METER (BEAKER) 305 mg/dL 70-110 Notified JADA NIX/TESTED AT [facility] (test yiab=7374) [address] [place] [address] POCT-GLUCOSE [id number] 08:14:00 Test Item Value Reference Range Comments POC-GLUCOSE METER (BEAKER) 288 mg/dL 70-110 TESTED AT [address] (test ysjp=4289) [facility] [address] POCT-GLUCOSE [id number] 23:29:00 Test Item Value Reference Range Comments POC-GLUCOSE METER (BEAKER) 134 mg/dL 70-110 TESTED AT [address] (test jimj=9102) [place] [id number] POCT-GLUCOSE [id number] 18:42:00 Test Item Value Reference Range Comments POC-GLUCOSE METER (BEAKER) 357 mg/dL 70-110 TESTED AT [address] (test rppq=2891) [place] [address] CRYPTOCOCCAL [id number] 11:32:00 Test Item Value Reference Range Comments CRYPTOCOCCAL ANTIGEN, SERUM (BEAKER) (test Negative Negative, Interference cjeo=4242) [id number] 11:30:00 Test Item Value Reference Range Comments RPR SCREEN (BEAKER) (test bzso=904) Nonreactive Nonreactive HEMOGLOBIN [id number] 10:23:00 Test Item Value Reference Range Comments HEMOGLOBIN A1C (BEAKER) (test skuh=180) 6.7 % 4.3-6.1 CYTOMEGALOVIRUS ANTIBODY, [id number] 09:29:00 Test Item Value Reference Range Comments CYTOMEGALOVIRUS, IGG (BEAKER) (test tszc=6950) Positive Negative, Equivocal CMV IgG Result Interpretation: </=0.8 Al Negative 0.9-1.0 Al Equivocal &gt ;/=1.1 Al PositiveCYTOMEGALOVIRUS ANTIBODY, [id number] 09:29:00 Test Item Value Reference Range Comments CYTOMEGALOVIRUS IGM ANTIBODY (BEAKER) (test Negative Negative, Equivocal cgix=3844) CMV IgM Result Interpretation: </=0.8 Al Negative 0.9-1.0 Al Equivocal >/=1.1 Al PositiveEBV ANTIBODY, [id number] 09:29:00 Test Item Value Reference Range Comments JAQUELINE MEDRANO VIRAL CAPSID ANTIGEN IGG (BEAKER) Positive Negative, Equivocal (test hlyz=9532) Jaqueline Medrano Viral Capsid Antigen IgG Result Interpretation: </=0.8 Al Negative 0.9-1.0 Al Equivocal >/=1.1 Al PositiveEBV ANTIBODY, [id number] 09:29:00 Test Item Value Reference Range Comments JAQUELINE MEDRANO VIRAL CAPSID ANTIGEN IGM (BEAKER) Negative Negative, Equivocal (test iuym=5046) Jaqueline Medrano Viral Capsid Antigen IgM Result Interpretation: </=0.8 Al Negative 0.9-1.0 Al Equivocal >/=1.1 Al PositivePOCT-GLUCOSE [id number] 07:53:00 Test Item Value Reference Range Comments POC-GLUCOSE METER (BEAKER) 168 mg/dL 70-110 TESTED AT [facility] [address] (test emhz=6155) [facility] [address] CBC (HEMOGRAM ONLY)2018-12-20 07:02:00 Test Item Value Reference Range Comments WHITE BLOOD CELL COUNT (BEAKER) (test qdul=448) 4.7 K/ L 3.5-10.5 RED BLOOD CELL COUNT (BEAKER) (test ehkx=887) 4.09 M/ L 4.63-6.08 HEMOGLOBIN (BEAKER) (test mfqm=473) 8.1 GM/DL 13.7-17.5 HEMATOCRIT (BEAKER) (test qjpk=627) 28.3 % 40.1-51.0 MEAN CORPUSCULAR VOLUME (BEAKER) (test xamu=538) 69.2 fL 79.0-92.2 MEAN CORPUSCULAR HEMOGLOBIN (BEAKER) (test 19.8 pg 25.7-32.2 jwdv=273) MEAN CORPUSCULAR HEMOGLOBIN CONC (BEAKER) (test 28.6 GM/DL 32.3-36.5 tlou=160) RED CELL DISTRIBUTION WIDTH (BEAKER) (test 21.8 % 11.6-14.4 djsm=061) PLATELET COUNT (BEAKER) (test gnia=707) 121 K/CU MM 150-450 MEAN PLATELET VOLUME (BEAKER) (test bxmk=520) 10.6 fL 9.4-12.4 NUCLEATED RED BLOOD CELLS (BEAKER) (test 0 /100 WBC 0-0 mlpw=570) CALCIUM, [id number] 06:36:00 Test Item Value Reference Range Comments CALCIUM IONIZED (BEAKER) (test lxpn=580) 1.07 mmol/L 1.12-1.27 PH, BLOOD (BEAKER) (test covp=1802) 7.41 HEPATIC FUNCTION [id number] 06:32:00 Test Item Value Reference Range Comments TOTAL PROTEIN (BEAKER) (test wjpr=881) 6.4 gm/dL 6.0-8.3 ALBUMIN (BEAKER) (test woxi=8527) 2.6 g/dL 3.5-5.0 BILIRUBIN TOTAL (BEAKER) (test hejt=427) 0.6 mg/dL 0.2-1.2 BILIRUBIN DIRECT (BEAKER) (test iifi=288) 0.4 mg/dL 0.1-0.5 ALKALINE PHOSPHATASE (BEAKER) (test izhm=050) 127 U/L 40-150 AST (SGOT) (BEAKER) (test tvsj=330) 54 U/L 5-34 ALT (SGPT) (BEAKER) (test fqor=005) 22 U/L 6-55 BASIC METABOLIC [id number] 06:32:00 Test Item Value Reference Range Comments SODIUM (BEAKER) (test 138 meq/L 136-145 aizb=889) POTASSIUM (BEAKER) (test 3.8 meq/L 3.5-5.1 kfok=898) CHLORIDE (BEAKER) (test 104 meq/L 98-107 qtbv=598) CO2 (BEAKER) (test 26 meq/L 22-29 dscp=114) BLOOD UREA NITROGEN 8 mg/dL 7-21 (BEAKER) (test fyei=655) CREATININE (BEAKER) (test 0.85 mg/dL 0.57-1.25 otzr=725) GLUCOSE RANDOM (BEAKER) 167 mg/dL 70-105 (test jiek=031) CALCIUM (BEAKER) (test 8.3 mg/dL 8.4-10.2 bagx=569) EGFR (BEAKER) (test 94 mL/min/1.73 sq m ESTIMATED GFR IS NOT jcfk=8692) ACCURATE CREATININE CLEARANCE IN PREDICTING GLOMERULAR FILTRATION RATE. ESTIMATED GFR IS NOT APPLICABLE FOR DIALYSIS PATIENTS. POCT-GLUCOSE [id number] 23:08:00 Test Item Value Reference Range Comments POC-GLUCOSE METER (BEAKER) 284 mg/dL 70-110 TESTED AT [facility] [address] [place] [address] (test prbm=9947) [facility] [address] POCT-GLUCOSE [id number] 20:20:00 Test Item Value Reference Range Comments POC-GLUCOSE METER (BEAKER) 185 mg/dL 70-110 TESTED AT [facility] [address] (test vefw=4739) [facility] [address] BLOOD GAS, [id number] 20:05:00 Test Item Value Reference Range Comments PH ARTERIAL (BEAKER) (test hdxu=587) 7.48 7.35-7.45 PCO2 ARTERIAL (BEAKER) (test wpom=813) 38 mmHg 35-45 PO2 ARTERIAL (BEAKER) (test vpbc=648) 83 mmHg 80-90 O2 SATURATION ARTERIAL (BEAKER) (test puah=269) 97.1 % 96.0-97.0 HCO3 ARTERIAL (BEAKER) (test ndqv=758) 28 mmol/L 21-29 BASE EXCESS ARTERIAL (BEAKER) (test mdmn=345) 4.0 mmol/L -2.0-3.0 PATIENT TEMPERATURE (BEAKER) (test qmlc=3289) 36.3 C FIO2 (BEAKER) (test odcf=3677) 21.0 % HEPATITIS B SURFACE [id number] 19:10:00 Test Item Value Reference Range Comments HEPATITIS B SURFACE ANTIBODY (BEAKER) (test < mIU/mL <8.0 wfez=927) VITAMIN D, [id number] 19:08:00 Test Item Value Reference Range Comments VITAMIN D 25-OH (BEAKER) (test bxiu=4700) 6.6 ng/mL 6.6-49.9 Effective 07/04/2017: Reference Range ChangeNew: 6.6-49.9 ng/mL Previous: 13.0 -47.8 ng/mLRecommended Vitamin D Target Range: 30.0-40.0 ng/mLCARCINOEMBRYONIC ANTIGEN (CEA)2018-12-19 19:07:00 Test Item Value Reference Range Comments CARCINOEMBRYONIC ANTIGEN (BEAKER) (test iiqm=518) 1.9 ng/mL 0.0-5.0 HEPATITIS B SURFACE [id number] 19:07:00 Test Item Value Reference Range Comments HEPATITIS B SURFACE ANTIGEN (2) (BEAKER) (test Nonreactive Nonreactive szly=8333) HEPATITIS B CORE ANTIBODY, [id number] 19:07:00 Test Item Value Reference Range Comments HEPATITIS B CORE IGM ANTIBODY (BEAKER) (test Nonreactive Nonreactive tsqf=769) HEPATITIS A ANTIBODY, [id number] 19:07:00 Test Item Value Reference Range Comments HEPATITIS A IGM ANTIBODY (BEAKER) (test Nonreactive Nonreactive asnx=898) [id number] 18:59:00 Test Item Value Reference Range Comments PROSTATE SPECIFIC ANTIGEN (BEAKER) (test gfhn=255) 0.5 ng/mL 0.0-4.0 HIV-1 ANTIGEN WITH HIV-1/2 [id number] 18:59:00 Test Item Value Reference Range Comments HIV-1 ANTIGEN WITH HIV 1\T\2 ANTIBODY (2) Nonreactive Nonreactive (BEAKER) (test fkum=6050) [id number] 18:58:00 Test Item Value Reference Range Comments TRANSFERRIN (BEAKER) (test jknz=461) 288 mg/dL 174-382 [id number] 18:22:00 Test Item Value Reference Range Comments THYROID STIMULATING HORMONE (BEAKER) (test 5.24 uIU/mL 0.35-4.94 pibg=203) [id number] 18:19:00 Test Item Value Reference Range Comments T4 TOTAL (BEAKER) (test oqcj=665) 6.9 ug/dL 4.9-11.7 URIC [id number] 18:01:00 Test Item Value Reference Range Comments URIC ACID (BEAKER) (test lcmb=883) 4.7 mg/dL 2.6-7.2 [id number] 18:01:00 Test Item Value Reference Range Comments MAGNESIUM (BEAKER) (test guyd=378) 1.7 mg/dL 1.6-2.6 [id number] 18:01:00 Test Item Value Reference Range Comments PHOSPHORUS (BEAKER) (test zfjj=064) 2.6 mg/dL 2.3-4.7 LIPID [id number] 18:01:00 Test Item Value Reference Range Comments TRIGLYCERIDES (BEAKER) (test zzig=846) 47 mg/dL CHOLESTEROL (BEAKER) (test nqtb=094) 104 mg/dL HDL CHOLESTEROL (BEAKER) (test hxnj=999) 33 mg/dL LDL CHOLESTEROL CALCULATED (BEAKER) (test 62 mg/dL hevi=879) Triglyceride Reference Range: Low Risk <150 Borderline [...] Range Comments GAMMA GLUTAMYL TRANSFERASE (BEAKER) (test ryuv=655) 24 U/L 9-64 [id number] 18:00:00 Test Item Value Reference Range Comments ETHANOL (BEAKER) (test tgtq=380) < mg/dL <=10 [id number] 12:48:00 Test Item Value Reference Range Comments D-DIMER QUANTITATIVE (BEAKER) (test wdfr=129) 6.75 MG/L FEU <0.50 Intended Use: The D-Dimer Assay can be used to aid in the diagnosis of Deep Vein Thrombosis (DVT) and Pulmonary Embolism Disease (PED).In patients with low pre-test probability, various studies concerning STA Liatest D-dimer test have reported that with a cutoff value of 0.50 MG/L FEU, the Negative Predictive Value (NPV) regarding the exclusion of thrombosis is within 95-100% range.[id number] 12:41:00 Test Item Value Reference Range Comments PARTIAL THROMBOPLASTIN TIME (BEAKER) (test 35.4 seconds 22.5-36.0 dovk=698) PROTHROMBIN [id number] 12:39:00 Test Item Value Reference Range Comments PROTIME (BEAKER) (test rshz=376) 14.9 seconds 11.7-14.7 INR (BEAKER) (test qnfe=738) 1.2 <=5.9 RECOMMENDED COUMADIN/WARFARIN INR THERAPY RANGESSTANDARD DOSE: 2.0 - 3.0 Includes: PROPHYLAXIS forvenous thrombosis, systemic embolization; TREATMENT for venous thrombosis and/or pulmonary embolus.HIGH RISK: Target INR is 2.5-3.5 for patients with mechanical heart valves.POCT-GLUCOSE [id number] 11:36:00 Test Item Value Reference Range Comments POC-GLUCOSE METER (BEAKER) 267 mg/dL 70-110 TESTED AT [address] (test sqmq=6689) [facility] [address] POCT-GLUCOSE [id number] 10:02:00 Test Item Value Reference Range Comments POC-GLUCOSE METER (BEAKER) 249 mg/dL 70-110 TESTED AT [address] (test nrwf=1311) [place] [id number] MISCELLANEOUS LAB [id number] 07:59:00 Test Item Value Reference Range Comments SCAN RESULT (test lkgj=[id number]) POCT-GLUCOSE [id number] 07:50:00 Test Item Value Reference Range Comments POC-GLUCOSE METER (BEAKER) 228 mg/dL 70-110 TESTED AT [address] (test usgz=6031) [place] [address] HEPATIC FUNCTION [id number] 06:21:00 Test Item Value Reference Range Comments TOTAL PROTEIN (BEAKER) (test zxnx=608) 6.8 gm/dL 6.0-8.3 ALBUMIN (BEAKER) (test ipqm=8086) 2.8 g/dL 3.5-5.0 BILIRUBIN TOTAL (BEAKER) (test kfrd=929) 0.9 mg/dL 0.2-1.2 BILIRUBIN DIRECT (BEAKER) (test tmed=735) 0.5 mg/dL 0.1-0.5 ALKALINE PHOSPHATASE (BEAKER) (test mvza=930) 117 U/L 40-150 AST (SGOT) (BEAKER) (test ekwi=408) 47 U/L 5-34 ALT (SGPT) (BEAKER) (test lseu=647) 18 U/L 6-55 BASIC METABOLIC [id number] 06:21:00 Test Item Value Reference Range Comments SODIUM (BEAKER) (test 136 meq/L 136-145 wlfu=942) POTASSIUM (BEAKER) (test 3.8 meq/L 3.5-5.1 igpj=647) CHLORIDE (BEAKER) (test 104 meq/L 98-107 jgfb=663) CO2 (BEAKER) (test 26 meq/L 22-29 ssot=343) BLOOD UREA NITROGEN 7 mg/dL 7-21 (BEAKER) (test tzff=059) CREATININE (BEAKER) (test 0.84 mg/dL 0.57-1.25 xlth=894) GLUCOSE RANDOM (BEAKER) 152 mg/dL 70-105 (test fnfa=498) CALCIUM (BEAKER) (test 8.4 mg/dL 8.4-10.2 eexc=305) EGFR (BEAKER) (test 95 mL/min/1.73 sq m ESTIMATED GFR IS NOT wgti=3680) ACCURATE CREATININE CLEARANCE IN PREDICTING GLOMERULAR FILTRATION RATE. ESTIMATED GFR IS NOT APPLICABLE FOR DIALYSIS PATIENTS. CBC (HEMOGRAM ONLY)2018-12-19 06:02:00 Test Item Value Reference Range Comments WHITE BLOOD CELL COUNT (BEAKER) (test vcjr=824) 5.3 K/ L 3.5-10.5 RED BLOOD CELL COUNT (BEAKER) (test vzsy=944) 4.18 M/ L 4.63-6.08 HEMOGLOBIN (BEAKER) (test txne=911) 8.2 GM/DL 13.7-17.5 HEMATOCRIT (BEAKER) (test qbtp=458) 28.9 % 40.1-51.0 MEAN CORPUSCULAR VOLUME (BEAKER) (test vxtl=500) 69.1 fL 79.0-92.2 MEAN CORPUSCULAR HEMOGLOBIN (BEAKER) (test 19.6 pg 25.7-32.2 pjuu=114) MEAN CORPUSCULAR HEMOGLOBIN CONC (BEAKER) (test 28.4 GM/DL 32.3-36.5 dgvc=118) RED CELL DISTRIBUTION WIDTH (BEAKER) (test 21.5 % 11.6-14.4 uvjk=212) PLATELET COUNT (BEAKER) (test ssio=840) 130 K/CU MM 150-450 MEAN PLATELET VOLUME (BEAKER) (test idap=566) 9.9 fL 9.4-12.4 NUCLEATED RED BLOOD CELLS (BEAKER) (test 0 /100 WBC 0-0 ubxw=430) POCT-GLUCOSE [id number] 21:21:00 Test Item Value Reference Range Comments POC-GLUCOSE METER (BEAKER) 213 mg/dL 70-110 TESTED AT [facility] [address] (test wqhs=4271) [facility] [address] MR, ABDOMEN, [id number] 19:09:00Addendum BeginsREPORT STATUS:A Owner Oral Surgeon error in the third 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 It should read: Questionable small nonocclusive thrombus in the high SUPERIOR mesenteric vein. Signed: Roe Solorzano MDReport Verified Date/Time: 12/18/2018 19:09:20 Reading Location: [address] Body Reading RoomAddendum EndsFINAL REPORT [...] MDReport Verified Date/Time: 12/17/2018 10:57:37 Reading Location: [place] [id number] [place] Body Reading Room POCT-GLUCOSE [id number] 17:47:00 Test Item Value Reference Range Comments POC-GLUCOSE METER (BEAKER) 199 mg/dL 70-110 TESTED AT [address] (test jgkh=2240) [facility] [address] POCT-GLUCOSE [id number] 12:02:00 Test Item Value Reference Range Comments POC-GLUCOSE METER (BEAKER) 301 mg/dL 70-110 TESTED AT [address] (test xrve=4052) [facility] [address] HEPATITIS C PCR, [id number] 09:48:00 Test Item Value Reference Range Comments HCV NUMERIC RESULT (BEAKER) (test vxlx=2227) [id number] IU/mL <15 This test uses a Real-Time Polymerase Chain Reaction (RT-PCR) methodology and was performed using MAJOR Ampliprep/MAJOR TaqMan HCV test kit version 2.0 ( [facility]).Reportable range for this assay is 15 - 100,000, 000 IU per mL (1.18 - 8.00 Log IU/mL).POCT-GLUCOSE [id number] 09:18:00 Test Item Value Reference Range Comments POC-GLUCOSE METER (BEAKER) 284 mg/dL 70-110 TESTED AT [address] (test vpdc=3872) [facility] [address] HEPATIC FUNCTION [id number] 07:08:00 Test Item Value Reference Range Comments TOTAL PROTEIN (BEAKER) (test ioak=246) 6.5 gm/dL 6.0-8.3 ALBUMIN (BEAKER) (test pini=0465) 2.7 g/dL 3.5-5.0 BILIRUBIN TOTAL (BEAKER) (test ayxg=478) 0.9 mg/dL 0.2-1.2 BILIRUBIN DIRECT (BEAKER) (test ceyx=932) 0.5 mg/dL 0.1-0.5 ALKALINE PHOSPHATASE (BEAKER) (test aeaz=406) 103 U/L 40-150 AST (SGOT) (BEAKER) (test whfv=469) 40 U/L 5-34 ALT (SGPT) (BEAKER) (test nyyr=050) 16 U/L 6-55 BASIC METABOLIC [id number] 07:08:00 Test Item Value Reference Range Comments SODIUM (BEAKER) (test 135 meq/L 136-145 nfsk=782) POTASSIUM (BEAKER) (test 4.0 meq/L 3.5-5.1 kuqz=108) CHLORIDE (BEAKER) (test 105 meq/L 98-107 hiap=447) CO2 (BEAKER) (test 25 meq/L 22-29 atqo=445) BLOOD UREA NITROGEN 9 mg/dL 7-21 (BEAKER) (test eznm=583) CREATININE (BEAKER) (test 0.88 mg/dL 0.57-1.25 yzcc=360) GLUCOSE RANDOM (BEAKER) 175 mg/dL 70-105 (test zwha=887) CALCIUM (BEAKER) (test 8.2 mg/dL 8.4-10.2 orgv=930) EGFR (BEAKER) (test 90 mL/min/1.73 sq m ESTIMATED GFR IS NOT wwco=4854) ACCURATE CREATININE CLEARANCE IN PREDICTING GLOMERULAR FILTRATION RATE. ESTIMATED GFR IS NOT APPLICABLE FOR DIALYSIS PATIENTS. CBC (HEMOGRAM ONLY)2018-12-18 06:39:00 Test Item Value Reference Range Comments WHITE BLOOD CELL COUNT (BEAKER) (test grhu=745) 6.9 K/ L 3.5-10.5 RED BLOOD CELL COUNT (BEAKER) (test fwob=432) 4.15 M/ L 4.63-6.08 HEMOGLOBIN (BEAKER) (test aclc=092) 8.0 GM/DL 13.7-17.5 HEMATOCRIT (BEAKER) (test dtcf=979) 28.7 % 40.1-51.0 MEAN CORPUSCULAR VOLUME (BEAKER) (test bopu=922) 69.2 fL 79.0-92.2 MEAN CORPUSCULAR HEMOGLOBIN (BEAKER) (test 19.3 pg 25.7-32.2 sqzi=944) MEAN CORPUSCULAR HEMOGLOBIN CONC (BEAKER) (test 27.9 GM/DL 32.3-36.5 mmrf=734) RED CELL DISTRIBUTION WIDTH (BEAKER) (test 21.3 % 11.6-14.4 dpxg=732) PLATELET COUNT (BEAKER) (test foud=492) 122 K/CU MM 150-450 NUCLEATED RED BLOOD CELLS (BEAKER) (test 0 /100 WBC 0-0 zovz=427) POCT-GLUCOSE [id number] 22:48:00 Test Item Value Reference Range Comments POC-GLUCOSE METER (BEAKER) 237 mg/dL 70-110 TESTED AT [facility] [address] [facility] (test ortp=1932) [facility] [address] ANTI-NUCLEAR ANTIBODY (WILLOW)2018-12-17 11:52:00 Test Item Value Reference Range Comments ANTI-NUCLEAR ANTIBODY (WILLOW) (BEAKER) (test Positive Negative suvs=334) Test performed by IFA method.WILLOW TITER AND [id number] 11:52:00 Test Item Value Reference Range Comments WILLOW TITER (BEAKER) (test nmoe=7989) :160 WILLOW PATTERN (BEAKER) (test jyht=0534) Speckled [id number] 05:45:00 Test Item Value Reference Range Comments MAGNESIUM (BEAKER) (test 2.1 mg/dL 1.6-2.6 Specimen slightly hemolyzed chdp=615) [id number] 05:45:00 Test Item Value Reference Range Comments PHOSPHORUS (BEAKER) (test 3.0 mg/dL 2.3-4.7 Specimen slightly hemolyzed zvrb=458) BASIC METABOLIC [id number] 05:45:00 Test Item Value Reference Range Comments SODIUM (BEAKER) (test 136 meq/L 136-145 hrmu=744) POTASSIUM (BEAKER) (test 4.3 meq/L 3.5-5.1 Specimen slightly vqmu=488) hemolyzed CHLORIDE (BEAKER) (test 106 meq/L 98-107 odyn=226) CO2 (BEAKER) (test 25 meq/L 22-29 wwtv=873) BLOOD UREA NITROGEN 15 mg/dL 7-21 (BEAKER) (test xqof=104) CREATININE (BEAKER) (test 1.06 mg/dL 0.57-1.25 Specimen slightly gywf=180) hemolyzed GLUCOSE RANDOM (BEAKER) 222 mg/dL 70-105 (test gxpw=560) CALCIUM (BEAKER) (test 8.1 mg/dL 8.4-10.2 lwrj=817) EGFR (BEAKER) (test 73 mL/min/1.73 sq m ESTIMATED GFR IS NOT adaw=5320) ACCURATE CREATININE CLEARANCE IN PREDICTING GLOMERULAR FILTRATION RATE. ESTIMATED GFR IS NOT APPLICABLE FOR DIALYSIS PATIENTS. HEPATIC FUNCTION [id number] 05:45:00 Test Item Value Reference Range Comments TOTAL PROTEIN (BEAKER) (test 6.6 gm/dL 6.0-8.3 Specimen slightly hemolyzed fpez=467) ALBUMIN (BEAKER) (test 2.6 g/dL 3.5-5.0 Specimen slightly hemolyzed otoa=1191) BILIRUBIN TOTAL (BEAKER) (test 0.9 mg/dL 0.2-1.2 Specimen slightly hemolyzed hbzu=875) BILIRUBIN DIRECT (BEAKER) (test 0.5 mg/dL 0.1-0.5 Specimen slightly hemolyzed ivtl=548) ALKALINE PHOSPHATASE (BEAKER) 109 U/L 40-150 (test etic=799) AST (SGOT) (BEAKER) (test 53 U/L 5-34 Specimen slightly hemolyzed tmaz=445) ALT (SGPT) (BEAKER) (test 21 U/L 6-55 Specimen slightly hemolyzed nkro=095) CBC W/PLT COUNT & AUTO [id number] 04:48:00 Test Item Value Reference Range Comments WHITE BLOOD CELL COUNT 8.1 K/ L 3.5-10.5 (BEAKER) (test awpj=627) RED BLOOD CELL COUNT (BEAKER) 4.33 M/ L 4.63-6.08 (test deml=075) HEMOGLOBIN (BEAKER) (test 8.3 GM/DL 13.7-17.5 yfsn=985) HEMATOCRIT (BEAKER) (test 29.9 % 40.1-51.0 sjvx=418) MEAN CORPUSCULAR VOLUME 69.1 fL 79.0-92.2 (BEAKER) (test rlqm=718) MEAN CORPUSCULAR HEMOGLOBIN 19.2 pg 25.7-32.2 (BEAKER) (test voza=558) MEAN CORPUSCULAR HEMOGLOBIN 27.8 GM/DL 32.3-36.5 CONC (BEAKER) (test kfre=131) RED CELL DISTRIBUTION WIDTH 21.1 % 11.6-14.4 (BEAKER) (test nurj=866) PLATELET COUNT (BEAKER) (test 141 K/CU MM 150-450 uyrg=027) MEAN PLATELET VOLUME (BEAKER) fL 9.4-12.4 Unable to report due to (test vbet=327) abnormal Platelet population distribution. NUCLEATED RED BLOOD CELLS 0 /100 WBC 0-0 (BEAKER) (test ycyv=121) NEUTROPHILS RELATIVE PERCENT 70 % (BEAKER) (test skep=113) LYMPHOCYTES RELATIVE PERCENT 15 % (BEAKER) (test jveo=039) MONOCYTES RELATIVE PERCENT 9 % (BEAKER) (test zokd=375) EOSINOPHILS RELATIVE PERCENT 6 % (BEAKER) (test zcxe=920) BASOPHILS RELATIVE PERCENT 1 % (BEAKER) (test zyha=178) NEUTROPHILS ABSOLUTE COUNT 5.60 K/ L 1.78-5.38 (BEAKER) (test vnbw=846) LYMPHOCYTES ABSOLUTE COUNT 1.18 K/ L 1.32-3.57 (BEAKER) (test mceo=170) MONOCYTES ABSOLUTE COUNT 0.72 K/ L 0.30-0.82 (BEAKER) (test ljkr=788) EOSINOPHILS ABSOLUTE COUNT 0.46 K/ L 0.04-0.54 (BEAKER) (test foev=534) BASOPHILS ABSOLUTE COUNT 0.08 K/ L 0.01-0.08 (BEAKER) (test fjlz=251) IMMATURE GRANULOCYTES-RELATIVE 0 % 0-1 PERCENT (BEAKER) (test mgxv=3995) HEPATITIS C [id number] 21:49:00 Test Item Value Reference Range Comments HEPATITIS C ANTIBODY (BEAKER) (test opjs=848) Reactive Nonreactive HEPATITIS A ANTIBODY, [id number] 21:49:00 Test Item Value Reference Range Comments HEPATITIS A IGG ANTIBODY (BEAKER) (test mlfx=4336) Reactive Nonreactive ALPHA FETOPROTEIN (AFP), TUMOR [id number] 21:48:00 Test Item Value Reference Range Comments ALPHA-FETOPROTEIN (BEAKER) (test tbcq=3692) 5.3 ng/mL <10.0 HEPATITIS B CORE ANTIBODY, [id number] 21:48:00 Test Item Value Reference Range Comments HEPATITIS B CORE TOTAL ANTIBODY (BEAKER) (test Nonreactive Nonreactive xkut=568) [id number] 21:13:00 Test Item Value Reference Range Comments FERRITIN (BEAKER) (test wige=963) 17 ng/mL 5-275 [id number] 20:56:00 Test Item Value Reference Range Comments ALPHA-1 ANTITRYPSIN (BEAKER) 137.60 mg/dL 90.00-200.00 Specimen slightly hemolyzed (test eurt=299) IRON, TIBC, % SAT. (WITHOUT FERRITIN)2018-12-16 20:55:00 Test Item Value Reference Range Comments IRON (BEAKER) (test vvlj=521) 56.0 ug/dL 40.0-160.0 TOTAL IRON BINDING CAPACITY (BEAKER) (test 360 ug/dL 250-450 jgxp=349) IRON % SATURATION (2) (BEAKER) (test jblg=0582) 16 % 20-55 [id number] 20:52:00 Test Item Value Reference Range Comments ETHANOL (BEAKER) (test slds=827) < mg/dL <=10 HEMOGLOBIN AND [id number] 20:37:00 Test Item Value Reference Range Comments HEMOGLOBIN (BEAKER) (test jevo=987) 9.2 GM/DL 13.7-17.5 HEMATOCRIT (BEAKER) (test etbh=417) 32.6 % 40.1-51.0 U/S, ABDOMINAL, WITH [id number] 18:22:00Reason for exam:->liver cirrhosis, variceal bleed, please [...] MDReport Verified Date/Time: 12/16/2018 18:22:50 Reading Location: [facility] [id number] Ultrasound Reading Room BASI METABOLIC [id number] 12:25:00 Test Item Value Reference Range Comments SODIUM (BEAKER) (test 135 meq/L 136-145 sbha=853) POTASSIUM (BEAKER) (test 4.7 meq/L 3.5-5.1 ywmz=643) CHLORIDE (BEAKER) (test 105 meq/L 98-107 cmmm=967) CO2 (BEAKER) (test 25 meq/L 22-29 iqbw=393) BLOOD UREA NITROGEN 16 mg/dL 7-21 (BEAKER) (test yyhd=069) CREATININE (BEAKER) (test 1.01 mg/dL 0.57-1.25 aiua=939) GLUCOSE RANDOM (BEAKER) 162 mg/dL 70-105 (test bemw=557) CALCIUM (BEAKER) (test 8.1 mg/dL 8.4-10.2 hnlz=734) EGFR (BEAKER) (test 77 mL/min/1.73 sq m ESTIMATED GFR IS NOT tfvx=1224) ACCURATE CREATININE CLEARANCE IN PREDICTING GLOMERULAR FILTRATION RATE. ESTIMATED GFR IS NOT APPLICABLE FOR DIALYSIS PATIENTS. HEMOGLOBIN AND [id number] 12:06:00 Test Item Value Reference Range Comments HEMOGLOBIN (BEAKER) (test tclo=302) 8.6 GM/DL 13.7-17.5 HEMATOCRIT (BEAKER) (test qmym=688) 31.4 % 40.1-51.0 HEMOGLOBIN AND [id number] 08:52:00 Test Item Value Reference Range Comments HEMOGLOBIN (BEAKER) (test biwh=742) 8.7 GM/DL 13.7-17.5 HEMATOCRIT (BEAKER) (test yugw=936) 30.9 % 40.1-51.0 CALCIUM, [id number] 05:54:00 Test Item Value Reference Range Comments CALCIUM IONIZED (BEAKER) (test lofc=029) 1.08 mmol/L 1.12-1.27 PH, BLOOD (BEAKER) (test ejye=5028) 7.34 [id number] 05:50:00 Test Item Value Reference Range Comments PHOSPHORUS (BEAKER) (test qbwp=559) 3.4 mg/dL 2.3-4.7 [id number] 05:50:00 Test Item Value Reference Range Comments MAGNESIUM (BEAKER) (test qipp=560) 1.6 mg/dL 1.6-2.6 BASIC METABOLIC [id number] 05:50:00 Test Item Value Reference Range Comments SODIUM (BEAKER) (test 138 meq/L 136-145 uvxk=457) POTASSIUM (BEAKER) (test 5.4 meq/L 3.5-5.1 nxxe=171) CHLORIDE (BEAKER) (test 108 meq/L 98-107 cfhd=610) CO2 (BEAKER) (test 22 meq/L 22-29 shbw=865) BLOOD UREA NITROGEN 14 mg/dL 7-21 (BEAKER) (test lpkj=347) CREATININE (BEAKER) (test 1.00 mg/dL 0.57-1.25 maoe=009) GLUCOSE RANDOM (BEAKER) 144 mg/dL 70-105 (test flpa=430) CALCIUM (BEAKER) (test 8.1 mg/dL 8.4-10.2 qake=740) EGFR (BEAKER) (test 78 mL/min/1.73 sq m ESTIMATED GFR IS NOT atmp=8728) ACCURATE CREATININE CLEARANCE IN PREDICTING GLOMERULAR FILTRATION RATE. ESTIMATED GFR IS NOT APPLICABLE FOR DIALYSIS PATIENTS. CBC W/PLT COUNT & AUTO [id number] 05:44:00 Test Item Value Reference Range Comments WHITE BLOOD CELL COUNT 7.2 K/ L 3.5-10.5 (BEAKER) (test hblt=781) RED BLOOD CELL COUNT (BEAKER) 4.48 M/ L 4.63-6.08 (test qogr=908) HEMOGLOBIN (BEAKER) (test 8.7 GM/DL 13.7-17.5 gidp=544) HEMATOCRIT (BEAKER) (test 31.4 % 40.1-51.0 dfbs=577) MEAN CORPUSCULAR VOLUME 70.1 fL 79.0-92.2 (BEAKER) (test clvj=492) MEAN CORPUSCULAR HEMOGLOBIN 19.4 pg 25.7-32.2 (BEAKER) (test fmyz=642) MEAN CORPUSCULAR HEMOGLOBIN 27.7 GM/DL 32.3-36.5 CONC (BEAKER) (test bqbo=641) RED CELL DISTRIBUTION WIDTH 21.0 % 11.6-14.4 (BEAKER) (test asin=897) PLATELET COUNT (BEAKER) (test 135 K/CU MM 150-450 eoec=000) MEAN PLATELET VOLUME (BEAKER) fL 9.4-12.4 Unable to report due to (test kmbh=522) abnormal Platelet population distribution. NUCLEATED RED BLOOD CELLS 0 /100 WBC 0-0 (BEAKER) (test uxww=655) NEUTROPHILS RELATIVE PERCENT 72 % (BEAKER) (test rqja=712) LYMPHOCYTES RELATIVE PERCENT 12 % (BEAKER) (test qwwt=698) MONOCYTES RELATIVE PERCENT 11 % (BEAKER) (test qcue=751) EOSINOPHILS RELATIVE PERCENT 4 % (BEAKER) (test twct=100) BASOPHILS RELATIVE PERCENT 1 % (BEAKER) (test ntho=862) NEUTROPHILS ABSOLUTE COUNT 5.15 K/ L 1.78-5.38 (BEAKER) (test qvqj=846) LYMPHOCYTES ABSOLUTE COUNT 0.89 K/ L 1.32-3.57 (BEAKER) (test xmwd=968) MONOCYTES ABSOLUTE COUNT 0.76 K/ L 0.30-0.82 (BEAKER) (test lsth=143) EOSINOPHILS ABSOLUTE COUNT 0.29 K/ L 0.04-0.54 (BEAKER) (test boll=643) BASOPHILS ABSOLUTE COUNT 0.06 K/ L 0.01-0.08 (BEAKER) (test harn=738) IMMATURE GRANULOCYTES-RELATIVE 0 % 0-1 PERCENT (BEAKER) (test jovl=5062) HEMOGLOBIN AND [id number] 00:02:00 Test Item Value Reference Range Comments HEMOGLOBIN (BEAKER) (test fxgm=291) 7.8 GM/DL 13.7-17.5 HEMATOCRIT (BEAKER) (test vhyw=592) 28.0 % 40.1-51.0 POCT-GLUCOSE [id number] 23:24:00 Test Item Value Reference Range Comments POC-GLUCOSE METER (BEAKER) 168 mg/dL 70-110 TESTED AT [facility] [address] (test vniu=9824) [facility] [address] RAD, CHEST, 1 VIEW, NON [id number] 23:07:00Reason for exam:->NG tube placementShould this be [...] Verified Date/Time: 12/15/2018 23:07:08 Reading Location: [address] Body Reading Room HEMOGLOBIN AND [id number] 20:12:00 Test Item Value Reference Range Comments HEMOGLOBIN (BEAKER) (test xjuj=815) 7.4 GM/DL 13.7-17.5 HEMATOCRIT (BEAKER) (test cwab=688) 26.7 % 40.1-51.0 RAD, CHEST, 1 VIEW, NON [id number] 18:43:00Reason for exam:->s/p intubationShould this be performed [...] MDReport Verified Date/Time: 12/15/2018 18:43:24 Reading Location: [address] Consult Reading Room Electronically signed by: JORGE MTZ M.D. on 06:43 PMBASI METABOLIC [id number] 14:38:00 Test Item Value Reference Range Comments SODIUM (BEAKER) (test 137 meq/L 136-145 qsnt=100) POTASSIUM (BEAKER) (test 4.8 meq/L 3.5-5.1 Specimen slightly guze=621) hemolyzed CHLORIDE (BEAKER) (test 105 meq/L 98-107 pxvr=390) CO2 (BEAKER) (test 25 meq/L 22-29 ogad=132) BLOOD UREA NITROGEN 11 mg/dL 7-21 (BEAKER) (test gfrd=435) CREATININE (BEAKER) (test 0.84 mg/dL 0.57-1.25 Specimen slightly rgns=087) hemolyzed GLUCOSE RANDOM (BEAKER) 114 mg/dL 70-105 (test szcn=055) CALCIUM (BEAKER) (test 8.5 mg/dL 8.4-10.2 zcbd=371) EGFR (BEAKER) (test 95 mL/min/1.73 sq m ESTIMATED GFR IS NOT uesv=3396) ACCURATE CREATININE CLEARANCE IN PREDICTING GLOMERULAR FILTRATION RATE. ESTIMATED GFR IS NOT APPLICABLE FOR DIALYSIS PATIENTS. Specimen slightly ictericCOMPREHENSIVE METABOLIC [id number] 14:38:00 Test Item Value Reference Range Comments TOTAL PROTEIN (BEAKER) 7.2 gm/dL 6.0-8.3 Specimen slightly (test yogw=161) hemolyzed ALBUMIN (BEAKER) (test 2.9 g/dL 3.5-5.0 Specimen slightly uufx=8714) hemolyzed ALKALINE PHOSPHATASE 125 U/L 40-150 (BEAKER) (test rrbj=792) BILIRUBIN TOTAL (BEAKER) 2.5 mg/dL 0.2-1.2 Specimen slightly (test ohxb=693) hemolyzed SODIUM (BEAKER) (test 137 meq/L 136-145 ikmy=394) POTASSIUM (BEAKER) (test 4.8 meq/L 3.5-5.1 Specimen slightly hmbe=178) hemolyzed CHLORIDE (BEAKER) (test 105 meq/L 98-107 yyiy=318) CO2 (BEAKER) (test 25 meq/L 22-29 qzgx=902) BLOOD UREA NITROGEN 11 mg/dL 7-21 (BEAKER) (test yidt=642) CREATININE (BEAKER) (test 0.84 mg/dL 0.57-1.25 Specimen slightly hmbc=559) hemolyzed GLUCOSE RANDOM (BEAKER) 114 mg/dL 70-105 (test myxz=246) CALCIUM (BEAKER) (test 8.5 mg/dL 8.4-10.2 ebus=159) AST (SGOT) (BEAKER) (test 56 U/L 5-34 Specimen slightly whjb=293) hemolyzed ALT (SGPT) (BEAKER) (test 21 U/L 6-55 Specimen slightly dwkl=956) hemolyzed EGFR (BEAKER) (test 95 mL/min/1.73 sq m ESTIMATED GFR IS NOT ozes=1666) ACCURATE CREATININE CLEARANCE IN PREDICTING GLOMERULAR FILTRATION RATE. ESTIMATED GFR IS NOT APPLICABLE FOR DIALYSIS PATIENTS. Specimen slightly ictericCBC (HEMOGRAM ONLY)2018-12-15 14:35:00 Test Item Value Reference Range Comments WHITE BLOOD CELL COUNT (BEAKER) (test dcqr=037) 5.6 K/ L 3.5-10.5 RED BLOOD CELL COUNT (BEAKER) (test wbqw=845) 4.43 M/ L 4.63-6.08 HEMOGLOBIN (BEAKER) (test ncmr=239) 8.5 GM/DL 13.7-17.5 HEMATOCRIT (BEAKER) (test ctxd=593) 30.7 % 40.1-51.0 MEAN CORPUSCULAR VOLUME (BEAKER) (test pbwr=111) 69.3 fL 79.0-92.2 MEAN CORPUSCULAR HEMOGLOBIN (BEAKER) (test 19.2 pg 25.7-32.2 vths=508) MEAN CORPUSCULAR HEMOGLOBIN CONC (BEAKER) (test 27.7 GM/DL 32.3-36.5 lzwp=825) RED CELL DISTRIBUTION WIDTH (BEAKER) (test 20.9 % 11.6-14.4 hmvl=115) PLATELET COUNT (BEAKER) (test qcyi=018) 150 K/CU MM 150-450 NUCLEATED RED BLOOD CELLS (BEAKER) (test 0 /100 WBC 0-0 driq=452) LACTIC ACID, [id number] 14:34:00 Test Item Value Reference Range Comments LACTATE BLOOD VENOUS (2) (BEAKER) (test 1.4 mmol/L 0.5-2.2 rxyi=4240) [id number] 14:34:00 Test Item Value Reference Range Comments FIBRINOGEN LEVEL (BEAKER) (test spem=692) 164 mg/dl 225-434 PROTHROMBIN [id number] 14:29:00 Test Item Value Reference Range Comments PROTIME (BEAKER) (test yvxh=138) 17.0 seconds 11.7-14.7 INR (BEAKER) (test oylp=700) 1.4 <=5.9 RECOMMENDED COUMADIN/WARFARIN INR THERAPY RANGESSTANDARD DOSE: 2.0 - 3.0 Includes: PROPHYLAXIS forvenous thrombosis, systemic embolization; TREATMENT for venous thrombosis and/or pulmonary embolus.HIGH RISK: Target INR is 2.5-3.5 for patients with mechanical heart valves.[id number] 14:29:00 Test Item Value Reference Range Comments PARTIAL THROMBOPLASTIN TIME (BEAKER) (test 35.0 seconds 22.5-36.0 tsht=541) [id number] 14:29:00 Test Item Value Reference Range Comments PARTIAL THROMBOPLASTIN TIME (BEAKER) (test 38.1 seconds 22.5-36.0 qjbu=685) PROTHROMBIN [id number] 14:28:00 Test Item Value Reference Range Comments PROTIME (BEAKER) (test hdfv=719) 15.4 seconds 11.7-14.7 INR (BEAKER) (test sdhd=071) 1.2 <=5.9 RECOMMENDED COUMADIN/WARFARIN INR THERAPY RANGESSTANDARD DOSE: 2.0 - 3.0 Includes: PROPHYLAXIS forvenous thrombosis, systemic embolization; TREATMENT for venous thrombosis and/or pulmonary embolus.HIGH RISK: Target INR is 2.5-3.5 for patients with mechanical heart valves.HEMOGLOBIN AND [id number] 14 :21:00 Test Item Value Reference Range Comments HEMOGLOBIN (BEAKER) (test jfhy=316) 8.5 GM/DL 13.7-17.5 HEMATOCRIT (BEAKER) (test whuu=651) 30.7 % 40.1-51.0
== END 2019-08-02 14:58 | disposition home or self-care (01) | DRG 433 ==
LOC: ER 18:09 → ERHOLD 20:26 → 4TH 20:37
PROVIDERS: ADMIT Hospitalist; ATTEND Hospitalist
PROC: 0DB68ZX Excision of Stomach, Via Natural or Artificial Opening Endoscopic, Diagnostic (ICD-10-PCS; principal; 2019-08-01 14:00)
DX: K70.40 Alcoholic hepatic failure without coma (principal); I85.10 Secondary esophageal varices without bleeding; K76.6 Portal hypertension; K29.40 Chronic atrophic gastritis without bleeding; K30 Functional dyspepsia; B18.2 Chronic viral hepatitis C; K70.30 Alcoholic cirrhosis of liver without ascites; D50.9 Iron deficiency anemia, unspecified; E11.9 Type 2 diabetes mellitus without complications
CPT/HCPCS: 36415; 70450; 71045; 74018; 74150; 74250; 76857; 78264; 80048; 80053; 80076; 81003; 81015; 82105; 82140; 82607; 82728; 82746; 82947; 83540; 83615; 83690; 83735; 83880; 84100; 84484; 85014; 85018; 85025; 85027; 85044; 85610; 86850; 86900; 86901; 87077; 87086; 87088; 87186; 88305; 88312; 93005; 96361; 96365; 96375; 97112; 97116; 97161; 97530; 99285; A9541; C9113; J0696; J2354; J2405; J2704; J3411; J7030; J7040; P9016

== ENCOUNTER 2019-10-15 16:33 | Emergency (ER) | payer MEDICAID ==
--- OUTSIDE RECORDS SUMMARY | 2019-10-15 16:40 | XMS REPORT ---
:1965 [facility] Address [address] [place] [address] Care Team Providers Name Role Phone BRAVO ONEAL Unavailable Unavailable JANNET KASPER Unavailable Unavailable Problems This patient has no known problems. Allergies, Adverse Reactions, Alerts This patient has no known allergies or adverse reactions. Medications This patient has no known medications. 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 COMPARISON: MRI Abdomen 04/08/2019 TECHNIQUE: MR of the Abdomen WITHOUT and WITH intravenous contrast. FINDINGS: LOWER THORAX: Lung bases are unremarkable. No pleural effusion. LIVER: Cirrhotic liver morphology with nodular contour. Treated HCC lesion in the anterior right hepatic dome measures approximately 3 x 3.4 cm. A 1.4 cm vague early has focus is seen in the anterior right hepatic lobe adjacent to the gallbladder fossa. TIPS is present. BILIARY: Gallbladder is contracted. No gallstones or biliary ductal dilation. SPLEEN: Splenomegaly measuring up to 2.8 cm in maximum craniocaudal dimension. No focal mass. PANCREAS: No focal mass or ductal dilation. ADRENALS: No adrenal nodules. KIDNEY/URETERS: Kidneys are normal in size without solid mass lesion or hydronephrosis. PELVIS/RETROPERITONEUM: No free fluid. No lymphadenopathy VESSELS: Main portal vein is not well visualized. BONES AND SOFT TISSUES: Unremarkable. IMPRESSION: 1.Cirrhosis status post TACE of the anterior hepatic dome lesion, no evidence of new lesions. 2.Splenomegaly due to portal hypertension without ascites. 3.Patient is status post TIPS. 4.Vague early enhancing focus in the anterior right hepatic lobe measuring 1.4 cm can be followed with subsequent examination. Signed: Terese Jordan MDReport Verified Date/Time: 10/06/2019 15:38:31 Reading Location: [address] O49 -CREATININE 2019-10-03 11:35:00 Test Item Value Reference Range Comments POC-CREATININE (BEAKER) (test 1.3 mg/dL 0.6-1.3 TESTED AT [facility]-KG 2457 kdoc=0906) [facility] [address] POC-EGFR (BEAKER) (test 57 mL/min/1.73M2 cerb=2661) ANG, EMBOLIZATION, EXTENSIVE - [id number] 16:43:00Reason for Exam:-> liver cancerFINAL REPORT Mesenteric angiogram and chemoembolization, 06/18/2019. History: HCC. Modality: Fluoroscopy. Sedation: Versed 1 mg and fentanyl 50 mcg was given intravenouslyfor conscious sedation. Vital signs were monitored throughout the procedure by a nurse, and remained stable. Physician intra-service time was 60 minutes. Anesthesia: Two percent Lidocaine without epinephrine. Approach: Right common femoral artery. Estimated blood loss: &lt ; 5 cc. Specimen: None. 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 Virtual Customer Assistant: Gaudencio. Fluoroscopy Time: 14.5 min. Dose [...] and a 0.035 inch J-wire. A 5 Mauritanian sheath was placed. Diagnostic mesenteric angiogram was performed to access vessel patency and exclude arterio- portal shunting. A 5 Mauritanian Ramírez catheter which was used to select the SMA and celiac trunkfor DSA runs. A 3 Mauritanian microcatheter was advanced coaxially through the Ramírez catheter for selection of the right hepatic artery for DSA run , which demonstrates that the lesion is amenable for treatment. The microcatheter was used to further subselect the superior branch of the right hepatic arterythat supply the superior hepatic lesion. 50 mg [...] artery and normal sheath position. IMPRESSION: 1. Successful , uncomplicated mesenteric angiogram and right hepatic chemo-embolization, performed with conscious sedation.2. Successful hemostasis using closure device. Signed: Juarez Singh MDReport Verified Date/Time: 06/18/2019 16:43:18 Reading Location: [place] [address] Angio Body Reading Room COMPREHENSIVE METABOLIC [id number] 10:36:00 Test Item Value Reference Range Comments TOTAL PROTEIN (BEAKER) 6.5 gm/dL 6.0-8.3 (test tloi=749) ALBUMIN (BEAKER) (test 3.0 g/dL 3.5-5.0 zvjh=4353) ALKALINE PHOSPHATASE 203 U/L 40-150 (BEAKER) (test vfyc=013) BILIRUBIN TOTAL (BEAKER) 0.8 mg/dL 0.2-1.2 (test fgqa=037) SODIUM (BEAKER) (test 135 meq/L 136-145 tklg=817) POTASSIUM (BEAKER) (test 4.1 meq/L 3.5-5.1 xvod=190) CHLORIDE (BEAKER) (test 106 meq/L 98-107 iusf=088) CO2 (BEAKER) (test 24 meq/L 22-29 ebwz=788) BLOOD UREA NITROGEN 15 mg/dL 7-21 (BEAKER) (test qypg=951) CREATININE (BEAKER) (test 1.17 mg/dL 0.57-1.25 yvey=556) GLUCOSE RANDOM (BEAKER) 221 mg/dL 70-105 (test yxlp=391) CALCIUM (BEAKER) (test 9.2 mg/dL 8.4-10.2 npfn=830) AST (SGOT) (BEAKER) (test 78 U/L 5-34 jwer=939) ALT (SGPT) (BEAKER) (test 50 U/L 6-55 wcij=513) EGFR (BEAKER) (test 64 mL/min/1.73 sq m ESTIMATED GFR IS NOT dvgk=6972) ACCURATE CREATININE CLEARANCE IN PREDICTING GLOMERULAR FILTRATION RATE. ESTIMATED GFR IS NOT APPLICABLE FOR DIALYSIS PATIENTS. PROTHROMBIN [id number] 10:19:00 Test Item Value Reference Range Comments PROTIME (BEAKER) (test gzki=968) 14.7 seconds 11.9-14.2 INR (BEAKER) (test onuy=218) 1.2 <=5.9 Effective 02/19/2019: PT Reference Range ChangeNew: 11.9-14.2 Previous: 11.7- 14.7RECOMMENDED COUMADIN/WARFARIN INR THERAPY RANGESSTANDARD DOSE: 2.0-3.0 Includes: PROPHYLAXIS for venous thrombosis, systemic embolization; TREATMENT for venous thrombosis and/or pulmonary embolus.HIGH RISK: Target INR is2.5-3.5 for patients wiht mechanical heart valves.[id number] 10:19:00 Test Item Value Reference Range Comments PARTIAL THROMBOPLASTIN TIME (BEAKER) (test 35.6 seconds 22.5-36.0 bmcf=023) CBC W/PLT COUNT & AUTO [id number] 10:16:00 Test Item Value Reference Range Comments WHITE BLOOD CELL COUNT (BEAKER) (test cczy=803) 6.4 K/ L 3.5-10.5 RED BLOOD CELL COUNT (BEAKER) (test kqus=396) 3.84 M/ L 4.63-6.08 HEMOGLOBIN (BEAKER) (test jlkf=236) 8.1 GM/DL 13.7-17.5 HEMATOCRIT (BEAKER) (test ekyl=993) 27.4 % 40.1-51.0 MEAN CORPUSCULAR VOLUME (BEAKER) (test rwdh=280) 71.4 fL 79.0-92.2 MEAN CORPUSCULAR HEMOGLOBIN (BEAKER) (test 21.1 pg 25.7-32.2 qqfb=817) MEAN CORPUSCULAR HEMOGLOBIN CONC (BEAKER) (test 29.6 GM/DL 32.3-36.5 bskn=162) RED CELL DISTRIBUTION WIDTH (BEAKER) (test 16.7 % 11.6-14.4 eexb=521) PLATELET COUNT (BEAKER) (test ojte=439) 130 K/CU MM 150-450 MEAN PLATELET VOLUME (BEAKER) (test tsjm=396) 9.6 fL 9.4-12.4 NUCLEATED RED BLOOD CELLS (BEAKER) (test 0 /100 WBC 0-0 tykg=508) NEUTROPHILS RELATIVE PERCENT (BEAKER) (test 62 % ybsy=552) LYMPHOCYTES RELATIVE PERCENT (BEAKER) (test 20 % ivob=840) MONOCYTES RELATIVE PERCENT (BEAKER) (test 9 % muyg=597) EOSINOPHILS RELATIVE PERCENT (BEAKER) (test 8 % lxcx=974) BASOPHILS RELATIVE PERCENT (BEAKER) (test 1 % ovox=250) NEUTROPHILS ABSOLUTE COUNT (BEAKER) (test 3.97 K/ L 1.78-5.38 mnjh=388) LYMPHOCYTES ABSOLUTE COUNT (BEAKER) (test 1.27 K/ L 1.32-3.57 hnvg=720) MONOCYTES ABSOLUTE COUNT (BEAKER) (test 0.54 K/ L 0.30-0.82 purx=986) EOSINOPHILS ABSOLUTE COUNT (BEAKER) (test 0.52 K/ L 0.04-0.54 ricb=720) BASOPHILS ABSOLUTE COUNT (BEAKER) (test 0.08 K/ L 0.01-0.08 cigj=968) IMMATURE GRANULOCYTES-RELATIVE PERCENT (BEAKER) 0 % 0-1 (test jbvc=0323) MR, ABDOMEN, [id number] 17:19:00Include Abdominal VesselsFINAL REPORT MR of the [...] MDReport Verified Date/Time: 04/09/2019 17:19:22 Reading Location: [address] Radiology Reading Room Electronically signed by: TERESE JORDAN M.D. on04/09/2019 05:19 PMALPHA FETOPROTEIN (AFP), TUMOR [id number] 14: 34:00 Test Item Value Reference Range Comments ALPHA-FETOPROTEIN (BEAKER) (test rdpn=8593) 32.9 ng/mL <10.0 COMPREHENSIVE METABOLIC [id number] 14:18:00 Test Item Value Reference Range Comments TOTAL PROTEIN (BEAKER) 8.2 gm/dL 6.0-8.3 (test ekgx=207) ALBUMIN (BEAKER) (test 3.5 g/dL 3.5-5.0 hwyc=4412) ALKALINE PHOSPHATASE 216 U/L 40-150 (BEAKER) (test yqql=386) BILIRUBIN TOTAL (BEAKER) 1.4 mg/dL 0.2-1.2 (test bnlp=776) SODIUM (BEAKER) (test 132 meq/L 136-145 dpxp=261) POTASSIUM (BEAKER) (test 4.5 meq/L 3.5-5.1 iroo=400) CHLORIDE (BEAKER) (test 102 meq/L 98-107 prnd=156) CO2 (BEAKER) (test 24 meq/L 22-29 dnwn=603) BLOOD UREA NITROGEN 12 mg/dL 7-21 (BEAKER) (test twjw=601) CREATININE (BEAKER) (test 1.16 mg/dL 0.57-1.25 mujb=596) GLUCOSE RANDOM (BEAKER) 249 mg/dL 70-105 (test rplu=930) CALCIUM (BEAKER) (test 9.3 mg/dL 8.4-10.2 bytu=604) AST (SGOT) (BEAKER) (test 81 U/L 5-34 eljp=252) ALT (SGPT) (BEAKER) (test 40 U/L 6-55 gqrz=054) EGFR (BEAKER) (test 65 mL/min/1.73 sq m ESTIMATED GFR IS NOT ykaq=3843) ACCURATE CREATININE CLEARANCE IN PREDICTING GLOMERULAR FILTRATION RATE. ESTIMATED GFR IS NOT APPLICABLE FOR DIALYSIS PATIENTS. BILIRUBIN, [id number] 14:18:00 Test Item Value Reference Range Comments BILIRUBIN DIRECT (BEAKER) (test stxy=196) 0.8 mg/dL 0.1-0.5 PROTHROMBIN TIME/[id number] 14:05:00 Test Item Value Reference Range Comments PROTIME (BEAKER) (test hpye=328) 14.9 seconds 11.9-14.2 INR (BEAKER) (test zwiu=253) 1.2 <=5.9 Effective 02/19/2019: PT Reference Range ChangeNew: 11.9-14.2 Previous: 11.7- 14.7RECOMMENDED COUMADIN/WARFARIN INR THERAPY RANGESSTANDARD DOSE: 2.0-3.0 Includes: PROPHYLAXIS for venous thrombosis, systemic embolization; TREATMENT for venous thrombosis and/or pulmonary embolus.HIGH RISK: Target INR is2.5-3.5 for patients wiht mechanical heart valves.[id number] 13:58:00 Test Item Value Reference Range Comments POC-CREATININE (BEAKER) 0.9 mg/dL 0.6-1.3 TESTED AT [address] (test ntgx=2728) [place] [address] POC-EGFR (BEAKER) (test 88 mL/min/1.73M2 tfph=7683) CBC W/PLT COUNT & AUTO [id number] 13:56:00 Test Item Value Reference Range Comments WHITE BLOOD CELL COUNT (BEAKER) (test zvmu=831) 5.9 K/ L 3.5-10.5 RED BLOOD CELL COUNT (BEAKER) (test gkyy=930) 4.75 M/ L 4.63-6.08 HEMOGLOBIN (BEAKER) (test clyj=696) 10.7 GM/DL 13.7-17.5 HEMATOCRIT (BEAKER) (test fcmc=685) 35.5 % 40.1-51.0 MEAN CORPUSCULAR VOLUME (BEAKER) (test vufh=909) 74.7 fL 79.0-92.2 MEAN CORPUSCULAR HEMOGLOBIN (BEAKER) (test 22.5 pg 25.7-32.2 glue=969) MEAN CORPUSCULAR HEMOGLOBIN CONC (BEAKER) (test 30.1 GM/DL 32.3-36.5 lbss=893) RED CELL DISTRIBUTION WIDTH (BEAKER) (test 18.6 % 11.6-14.4 rrxk=605) PLATELET COUNT (BEAKER) (test bcmn=457) 157 K/CU MM 150-450 MEAN PLATELET VOLUME (BEAKER) (test oglu=343) 9.4 fL 9.4-12.4 NUCLEATED RED BLOOD CELLS (BEAKER) (test 0 /100 WBC 0-0 gmxt=410) NEUTROPHILS RELATIVE PERCENT (BEAKER) (test 68 % vail=678) LYMPHOCYTES RELATIVE PERCENT (BEAKER) (test 19 % hgaw=190) MONOCYTES RELATIVE PERCENT (BEAKER) (test 9 % xfuh=062) EOSINOPHILS RELATIVE PERCENT (BEAKER) (test 3 % unfu=590) BASOPHILS RELATIVE PERCENT (BEAKER) (test 1 % olbz=802) NEUTROPHILS ABSOLUTE COUNT (BEAKER) (test 4.03 K/ L 1.78-5.38 ozbr=063) LYMPHOCYTES ABSOLUTE COUNT (BEAKER) (test 1.13 K/ L 1.32-3.57 rebp=846) MONOCYTES ABSOLUTE COUNT (BEAKER) (test 0.52 K/ L 0.30-0.82 wwvi=682) EOSINOPHILS ABSOLUTE COUNT (BEAKER) (test 0.20 K/ L 0.04-0.54 gjlp=710) BASOPHILS ABSOLUTE COUNT (BEAKER) (test 0.05 K/ L 0.01-0.08 bhbt=025) IMMATURE GRANULOCYTES-RELATIVE PERCENT (BEAKER) 0 % 0-1 (test rfph=6998) HOPE [id number] 08:05:00Reason for exam:->recurrent variceal bleedAddendum BeginsREPORT STATUS:A Addendum: Ultrasound was used to examine the veins the right neck. A patent internal jugular vein was identified and images the patent vein were saved on PACS. Real-time ultrasound guidance was then utilized for access of the internal jugular vein.Signed: Sola Camarillo MDReport Verified Date/Time: 01/20/2019 08:05:45 Reading Location: [address] Radiology Reading RoomAddendum EndsFINAL REPORT Procedure: [...] MDReport Verified Date/Time: 01/01/2019 17:21:51 Reading Location: [place] [id number] Angio Body Reading Room POCT-GLUCOSE [id number] 08:02:00 Test Item Value Reference Range Comments POC-GLUCOSE METER (BEAKER) 187 mg/dL 70-110 TESTED AT [facility] [address] [facility] (test zjhm=7916) [facility] [address] [id number] 04:17:00 Test Item Value Reference Range Comments PHOSPHORUS (BEAKER) (test juyd=896) 2.9 mg/dL 2.3-4.7 [id number] 04:17:00 Test Item Value Reference Range Comments MAGNESIUM (BEAKER) (test jvfl=597) 1.9 mg/dL 1.6-2.6 COMPREHENSIVE METABOLIC [id number] 04:17:00 Test Item Value Reference Range Comments TOTAL PROTEIN (BEAKER) 7.6 gm/dL 6.0-8.3 (test xxzl=368) ALBUMIN (BEAKER) (test 3.3 g/dL 3.5-5.0 wmnk=0495) ALKALINE PHOSPHATASE 138 U/L 40-150 (BEAKER) (test zydo=495) BILIRUBIN TOTAL (BEAKER) 1.0 mg/dL 0.2-1.2 (test kxmj=072) SODIUM (BEAKER) (test 136 meq/L 136-145 svix=967) POTASSIUM (BEAKER) (test 4.0 meq/L 3.5-5.1 ttav=100) CHLORIDE (BEAKER) (test 105 meq/L 98-107 tknb=913) CO2 (BEAKER) (test 22 meq/L 22-29 hpvp=466) BLOOD UREA NITROGEN 14 mg/dL 7-21 (BEAKER) (test ccjn=167) CREATININE (BEAKER) (test 1.11 mg/dL 0.57-1.25 qkmx=445) GLUCOSE RANDOM (BEAKER) 173 mg/dL 70-105 (test hebd=747) CALCIUM (BEAKER) (test 9.1 mg/dL 8.4-10.2 pokc=454) AST (SGOT) (BEAKER) (test 89 U/L 5-34 btue=553) ALT (SGPT) (BEAKER) (test 41 U/L 6-55 htpu=336) EGFR (BEAKER) (test 69 mL/min/1.73 sq m ESTIMATED GFR IS NOT xgeh=6626) ACCURATE CREATININE CLEARANCE IN PREDICTING GLOMERULAR FILTRATION RATE. ESTIMATED GFR IS NOT APPLICABLE FOR DIALYSIS PATIENTS. CBC W/PLT COUNT & AUTO [id number] 03:43:00 Test Item Value Reference Range Comments WHITE BLOOD CELL COUNT (BEAKER) (test twbv=238) 9.1 K/ L 3.5-10.5 RED BLOOD CELL COUNT (BEAKER) (test nwfj=191) 4.66 M/ L 4.63-6.08 HEMOGLOBIN (BEAKER) (test emwc=571) 9.1 GM/DL 13.7-17.5 HEMATOCRIT (BEAKER) (test qwlh=521) 31.7 % 40.1-51.0 MEAN CORPUSCULAR VOLUME (BEAKER) (test skbl=227) 68.0 fL 79.0-92.2 MEAN CORPUSCULAR HEMOGLOBIN (BEAKER) (test 19.5 pg 25.7-32.2 alhs=677) MEAN CORPUSCULAR HEMOGLOBIN CONC (BEAKER) (test 28.7 GM/DL 32.3-36.5 ginu=894) RED CELL DISTRIBUTION WIDTH (BEAKER) (test 20.4 % 11.6-14.4 jjjn=386) PLATELET COUNT (BEAKER) (test yeco=155) 174 K/CU MM 150-450 MEAN PLATELET VOLUME (BEAKER) (test zgok=364) 10.6 fL 9.4-12.4 NUCLEATED RED BLOOD CELLS (BEAKER) (test 0 /100 WBC 0-0 swls=039) NEUTROPHILS RELATIVE PERCENT (BEAKER) (test 74 % tlye=475) LYMPHOCYTES RELATIVE PERCENT (BEAKER) (test 16 % hamj=418) MONOCYTES RELATIVE PERCENT (BEAKER) (test 7 % qffk=676) EOSINOPHILS RELATIVE PERCENT (BEAKER) (test 2 % dost=089) BASOPHILS RELATIVE PERCENT (BEAKER) (test 1 % nqhk=550) NEUTROPHILS ABSOLUTE COUNT (BEAKER) (test 6.70 K/ L 1.78-5.38 sccd=929) LYMPHOCYTES ABSOLUTE COUNT (BEAKER) (test 1.42 K/ L 1.32-3.57 wrze=314) MONOCYTES ABSOLUTE COUNT (BEAKER) (test 0.61 K/ L 0.30-0.82 ghpl=999) EOSINOPHILS ABSOLUTE COUNT (BEAKER) (test 0.20 K/ L 0.04-0.54 giel=224) BASOPHILS ABSOLUTE COUNT (BEAKER) (test 0.10 K/ L 0.01-0.08 vrlr=400) IMMATURE GRANULOCYTES-RELATIVE PERCENT (BEAKER) 0 % 0-1 (test isku=7935) POCT-GLUCOSE [id number] 23:33:00 Test Item Value Reference Range Comments POC-GLUCOSE METER (BEAKER) 230 mg/dL 70-110 TESTED AT [address] (test zdbe=1186) [place] [id number] POCT-GLUCOSE [id number] 16:25:00 Test Item Value Reference Range Comments POC-GLUCOSE METER (BEAKER) 182 mg/dL 70-110 TESTED AT [address] (test rheh=4304) [facility] [address] POCT-GLUCOSE [id number] 14:02:00 Test Item Value Reference Range Comments POC-GLUCOSE METER (BEAKER) 146 mg/dL 70-110 TESTED AT [address] (test gjqu=6970) [facility] [address] POCT-GLUCOSE [id number] 07:49:00 Test Item Value Reference Range Comments POC-GLUCOSE METER (BEAKER) 143 mg/dL 70-110 TESTED AT [address] (test stcy=0933) [facility] [address] CALCIUM, [id number] 06:48:00 Test Item Value Reference Range Comments CALCIUM IONIZED (BEAKER) (test hxus=890) 0.81 mmol/L 1.12-1.27 PH, BLOOD (BEAKER) (test lhlx=6153) 7.50 CBC W/PLT COUNT & AUTO [id number] 06:41:00 Test Item Value Reference Range Comments WHITE BLOOD CELL COUNT 4.0 K/ L 3.5-10.5 (BEAKER) (test jagc=335) RED BLOOD CELL COUNT (BEAKER) 4.14 M/ L 4.63-6.08 (test dlha=115) HEMOGLOBIN (BEAKER) (test 8.2 GM/DL 13.7-17.5 mhoj=094) HEMATOCRIT (BEAKER) (test 27.7 % 40.1-51.0 aqzi=336) MEAN CORPUSCULAR VOLUME 66.9 fL 79.0-92.2 (BEAKER) (test ykge=785) MEAN CORPUSCULAR HEMOGLOBIN 19.8 pg 25.7-32.2 (BEAKER) (test tsaz=563) MEAN CORPUSCULAR HEMOGLOBIN 29.6 GM/DL 32.3-36.5 CONC (BEAKER) (test nzjg=803) RED CELL DISTRIBUTION WIDTH 20.3 % 11.6-14.4 (BEAKER) (test rsgt=875) PLATELET COUNT (BEAKER) (test 120 K/CU MM 150-450 papn=979) MEAN PLATELET VOLUME (BEAKER) fL 9.4-12.4 Unable to report due to (test zqdq=605) abnormal Platelet population distribution. NUCLEATED RED BLOOD CELLS 0 /100 WBC 0-0 (BEAKER) (test ddnn=437) NEUTROPHILS RELATIVE PERCENT 58 % (BEAKER) (test jcvo=583) LYMPHOCYTES RELATIVE PERCENT 25 % (BEAKER) (test ohpd=027) MONOCYTES RELATIVE PERCENT 8 % (BEAKER) (test iins=735) EOSINOPHILS RELATIVE PERCENT 7 % (BEAKER) (test dhfn=302) BASOPHILS RELATIVE PERCENT 1 % (BEAKER) (test xohj=721) NEUTROPHILS ABSOLUTE COUNT 2.36 K/ L 1.78-5.38 (BEAKER) (test idfx=121) LYMPHOCYTES ABSOLUTE COUNT 1.01 K/ L 1.32-3.57 (BEAKER) (test jmbf=754) MONOCYTES ABSOLUTE COUNT 0.33 K/ L 0.30-0.82 (BEAKER) (test lefp=709) EOSINOPHILS ABSOLUTE COUNT 0.29 K/ L 0.04-0.54 (BEAKER) (test okad=871) BASOPHILS ABSOLUTE COUNT 0.04 K/ L 0.01-0.08 (BEAKER) (test ulij=837) IMMATURE GRANULOCYTES-RELATIVE 0 % 0-1 PERCENT (BEAKER) (test xlcn=7369) [id number] 06:02:00 Test Item Value Reference Range Comments PHOSPHORUS (BEAKER) (test bpbp=705) 3.6 mg/dL 2.3-4.7 [id number] 06:02:00 Test Item Value Reference Range Comments MAGNESIUM (BEAKER) (test yhiy=691) 1.7 mg/dL 1.6-2.6 COMPREHENSIVE METABOLIC [id number] 06:02:00 Test Item Value Reference Range Comments TOTAL PROTEIN (BEAKER) 7.2 gm/dL 6.0-8.3 (test vtwm=820) ALBUMIN (BEAKER) (test 3.2 g/dL 3.5-5.0 xtsm=1290) ALKALINE PHOSPHATASE 157 U/L 40-150 (BEAKER) (test ezfk=268) BILIRUBIN TOTAL (BEAKER) 0.9 mg/dL 0.2-1.2 (test cweb=914) SODIUM (BEAKER) (test 137 meq/L 136-145 rcyd=069) POTASSIUM (BEAKER) (test 3.5 meq/L 3.5-5.1 wvzz=362) CHLORIDE (BEAKER) (test 102 meq/L 98-107 utez=216) CO2 (BEAKER) (test 30 meq/L 22-29 setc=547) BLOOD UREA NITROGEN 18 mg/dL 7-21 (BEAKER) (test zorq=950) CREATININE (BEAKER) (test 1.14 mg/dL 0.57-1.25 objf=912) GLUCOSE RANDOM (BEAKER) 130 mg/dL 70-105 (test bvpn=084) CALCIUM (BEAKER) (test 8.6 mg/dL 8.4-10.2 hvlf=804) AST (SGOT) (BEAKER) (test 53 U/L 5-34 zuev=472) ALT (SGPT) (BEAKER) (test 25 U/L 6-55 jcvz=630) EGFR (BEAKER) (test 67 mL/min/1.73 sq m ESTIMATED GFR IS NOT aqjk=8385) ACCURATE CREATININE CLEARANCE IN PREDICTING GLOMERULAR FILTRATION RATE. ESTIMATED GFR IS NOT APPLICABLE FOR DIALYSIS PATIENTS. POCT-GLUCOSE [id number] 23:13:00 Test Item Value Reference Range Comments POC-GLUCOSE METER (BEAKER) 332 mg/dL 70-110 Notified JADA NIX/TESTED AT [facility] (test jukp=3276) [address] [facility] [address] POCT-GLUCOSE [id number] 15:30:00 Test Item Value Reference Range Comments POC-GLUCOSE METER (BEAKER) 191 mg/dL 70-110 TESTED AT [facility] [address] (test zgwq=2435) [facility] [address] CALCIUM, [id number] 06:07:00 Test Item Value Reference Range Comments CALCIUM IONIZED (BEAKER) (test ognt=868) 0.93 mmol/L 1.12-1.27 PH, BLOOD (BEAKER) (test nzim=4231) 7.53 [id number] 06:06:00 Test Item Value Reference Range Comments PHOSPHORUS (BEAKER) (test vqvf=975) 3.1 mg/dL 2.3-4.7 [id number] 06:06:00 Test Item Value Reference Range Comments MAGNESIUM (BEAKER) (test rwqr=743) 1.8 mg/dL 1.6-2.6 BASIC METABOLIC [id number] 06:06:00 Test Item Value Reference Range Comments SODIUM (BEAKER) (test 138 meq/L 136-145 kshp=274) POTASSIUM (BEAKER) (test 3.8 meq/L 3.5-5.1 igkc=954) CHLORIDE (BEAKER) (test 104 meq/L 98-107 cjao=230) CO2 (BEAKER) (test 27 meq/L 22-29 kdsf=631) BLOOD UREA NITROGEN 19 mg/dL 7-21 (BEAKER) (test mjlk=697) CREATININE (BEAKER) (test 1.26 mg/dL 0.57-1.25 aiov=468) GLUCOSE RANDOM (BEAKER) 191 mg/dL 70-105 (test hgrl=411) CALCIUM (BEAKER) (test 8.9 mg/dL 8.4-10.2 tlsm=222) EGFR (BEAKER) (test 59 mL/min/1.73 sq m ESTIMATED GFR IS NOT nxch=8595) ACCURATE CREATININE CLEARANCE IN PREDICTING GLOMERULAR FILTRATION RATE. ESTIMATED GFR IS NOT APPLICABLE FOR DIALYSIS PATIENTS. B-TYPE NATRIURETIC FACTOR (BNP)2018-12-31 05:58:00 Test Item Value Reference Range Comments B-TYPE NATRIURETIC PEPTIDE (BEAKER) (test unzo=283) 99 pg/mL 0-100 CBC W/PLT COUNT & AUTO [id number] 05:35:00 Test Item Value Reference Range Comments WHITE BLOOD CELL COUNT 5.2 K/ L 3.5-10.5 (BEAKER) (test gqwz=233) RED BLOOD CELL COUNT (BEAKER) 4.00 M/ L 4.63-6.08 (test pbhw=183) HEMOGLOBIN (BEAKER) (test 7.7 GM/DL 13.7-17.5 mkmg=117) HEMATOCRIT (BEAKER) (test 27.2 % 40.1-51.0 zvap=410) MEAN CORPUSCULAR VOLUME 68.0 fL 79.0-92.2 (BEAKER) (test siwm=893) MEAN CORPUSCULAR HEMOGLOBIN 19.3 pg 25.7-32.2 (BEAKER) (test ifow=956) MEAN CORPUSCULAR HEMOGLOBIN 28.3 GM/DL 32.3-36.5 CONC (BEAKER) (test cvlh=055) RED CELL DISTRIBUTION WIDTH 20.3 % 11.6-14.4 (BEAKER) (test rmbn=684) PLATELET COUNT (BEAKER) (test 107 K/CU MM 150-450 sned=704) MEAN PLATELET VOLUME (BEAKER) fL 9.4-12.4 Unable to report due to (test kqnk=557) abnormal Platelet population distribution. NUCLEATED RED BLOOD CELLS 0 /100 WBC 0-0 (BEAKER) (test xmqv=594) NEUTROPHILS RELATIVE PERCENT 67 % (BEAKER) (test hhgc=153) LYMPHOCYTES RELATIVE PERCENT 19 % (BEAKER) (test mtjk=924) MONOCYTES RELATIVE PERCENT 8 % (BEAKER) (test fjay=868) EOSINOPHILS RELATIVE PERCENT 5 % (BEAKER) (test bqvj=086) BASOPHILS RELATIVE PERCENT 1 % (BEAKER) (test dxxz=087) NEUTROPHILS ABSOLUTE COUNT 3.47 K/ L 1.78-5.38 (BEAKER) (test uhco=769) LYMPHOCYTES ABSOLUTE COUNT 0.99 K/ L 1.32-3.57 (BEAKER) (test iird=266) MONOCYTES ABSOLUTE COUNT 0.40 K/ L 0.30-0.82 (BEAKER) (test ezvx=733) EOSINOPHILS ABSOLUTE COUNT 0.24 K/ L 0.04-0.54 (BEAKER) (test nnqe=972) BASOPHILS ABSOLUTE COUNT 0.06 K/ L 0.01-0.08 (BEAKER) (test jaqe=415) IMMATURE GRANULOCYTES-RELATIVE 0 % 0-1 PERCENT (BEAKER) (test zyqi=3867) POCT-GLUCOSE [id number] 21:49:00 Test Item Value Reference Range Comments POC-GLUCOSE METER (BEAKER) 291 mg/dL 70-110 TESTED AT [address] (test kuse=1316) [place] [address] POCT-GLUCOSE [id number] 17:31:00 Test Item Value Reference Range Comments POC-GLUCOSE METER (BEAKER) 247 mg/dL 70-110 TESTED AT [address] (test qvwh=1548) [place] [address] BONE AND/OR JOINT IMAGING, WHOLE [id number] 16:47:00FINAL REPORT PROCEDURE: BONE SCAN, WHOLE BODY CPT CODE: 40421 INDICATION: Hepatocellular carcinoma, preoperative evaluation for liver [...] Date/ Time: 12/30/2018 16:47:37 Reading Location: [address] [place], CHEST, WITHOUT [id number] 12:26:00FINAL REPORT CT Chest without contrast History: [...] MDReport Verified Date/Time: 12/30/2018 12:26:39 Reading Location: [facility] Diagnostic Imaging Reading Room - [place] [address] POCT-GLUCOSE [id number] 11:39:00 Test Item Value Reference Range Comments POC-GLUCOSE METER (BEAKER) 250 mg/dL 70-110 TESTED AT [address] (test hlro=9339) [facility] [address] POCT-GLUCOSE [id number] 07:43:00 Test Item Value Reference Range Comments POC-GLUCOSE METER (BEAKER) 228 mg/dL 70-110 TESTED AT [address] (test fuar=0324) [facility] [address] CALCIUM, [id number] 07:32:00 Test Item Value Reference Range Comments CALCIUM IONIZED (BEAKER) (test fteu=569) 0.97 mmol/L 1.12-1.27 PH, BLOOD (BEAKER) (test zhxj=9915) 7.46 [id number] 06:46:00 Test Item Value Reference Range Comments PHOSPHORUS (BEAKER) (test pzer=570) 3.5 mg/dL 2.3-4.7 [id number] 06:46:00 Test Item Value Reference Range Comments MAGNESIUM (BEAKER) (test grrq=879) 1.8 mg/dL 1.6-2.6 COMPREHENSIVE METABOLIC [id number] 06:46:00 Test Item Value Reference Range Comments TOTAL PROTEIN (BEAKER) 7.2 gm/dL 6.0-8.3 (test swlm=229) ALBUMIN (BEAKER) (test 3.3 g/dL 3.5-5.0 ejju=1884) ALKALINE PHOSPHATASE 137 U/L 40-150 (BEAKER) (test julg=565) BILIRUBIN TOTAL (BEAKER) 0.8 mg/dL 0.2-1.2 (test dvgf=454) SODIUM (BEAKER) (test 136 meq/L 136-145 nvrb=238) POTASSIUM (BEAKER) (test 3.7 meq/L 3.5-5.1 skdy=968) CHLORIDE (BEAKER) (test 102 meq/L 98-107 pcwd=549) CO2 (BEAKER) (test 25 meq/L 22-29 yfgq=683) BLOOD UREA NITROGEN 14 mg/dL 7-21 (BEAKER) (test isjt=400) CREATININE (BEAKER) (test 1.06 mg/dL 0.57-1.25 jwlb=118) GLUCOSE RANDOM (BEAKER) 154 mg/dL 70-105 (test isno=091) CALCIUM (BEAKER) (test 8.8 mg/dL 8.4-10.2 atyd=541) AST (SGOT) (BEAKER) (test 55 U/L 5-34 btdh=186) ALT (SGPT) (BEAKER) (test 24 U/L 6-55 sztn=485) EGFR (BEAKER) (test 73 mL/min/1.73 sq m ESTIMATED GFR IS NOT tbzc=9792) ACCURATE CREATININE CLEARANCE IN PREDICTING GLOMERULAR FILTRATION RATE. ESTIMATED GFR IS NOT APPLICABLE FOR DIALYSIS PATIENTS. CBC W/PLT COUNT & AUTO [id number] 06:20:00 Test Item Value Reference Range Comments WHITE BLOOD CELL COUNT 5.1 K/ L 3.5-10.5 (BEAKER) (test eqaw=355) RED BLOOD CELL COUNT (BEAKER) 4.24 M/ L 4.63-6.08 (test glze=056) HEMOGLOBIN (BEAKER) (test 8.4 GM/DL 13.7-17.5 wouk=247) HEMATOCRIT (BEAKER) (test 28.7 % 40.1-51.0 vgmf=266) MEAN CORPUSCULAR VOLUME 67.7 fL 79.0-92.2 (BEAKER) (test uddi=593) MEAN CORPUSCULAR HEMOGLOBIN 19.8 pg 25.7-32.2 (BEAKER) (test vuhq=037) MEAN CORPUSCULAR HEMOGLOBIN 29.3 GM/DL 32.3-36.5 CONC (BEAKER) (test npps=885) RED CELL DISTRIBUTION WIDTH 20.7 % 11.6-14.4 (BEAKER) (test gscu=047) PLATELET COUNT (BEAKER) (test 121 K/CU MM 150-450 eejg=577) MEAN PLATELET VOLUME (BEAKER) fL 9.4-12.4 Unable to report due to (test neoz=487) abnormal Platelet population distribution. NUCLEATED RED BLOOD CELLS 0 /100 WBC 0-0 (BEAKER) (test ayob=768) NEUTROPHILS RELATIVE PERCENT 65 % (BEAKER) (test dceu=180) LYMPHOCYTES RELATIVE PERCENT 20 % (BEAKER) (test jxmy=343) MONOCYTES RELATIVE PERCENT 8 % (BEAKER) (test fcee=149) EOSINOPHILS RELATIVE PERCENT 5 % (BEAKER) (test nzgh=890) BASOPHILS RELATIVE PERCENT 1 % (BEAKER) (test ndkn=080) NEUTROPHILS ABSOLUTE COUNT 3.36 K/ L 1.78-5.38 (BEAKER) (test xuvt=744) LYMPHOCYTES ABSOLUTE COUNT 1.02 K/ L 1.32-3.57 (BEAKER) (test nwdp=613) MONOCYTES ABSOLUTE COUNT 0.42 K/ L 0.30-0.82 (BEAKER) (test ybic=909) EOSINOPHILS ABSOLUTE COUNT 0.28 K/ L 0.04-0.54 (BEAKER) (test wsvx=870) BASOPHILS ABSOLUTE COUNT 0.05 K/ L 0.01-0.08 (BEAKER) (test hape=694) IMMATURE GRANULOCYTES-RELATIVE 0 % 0-1 PERCENT (BEAKER) (test auwv=7606) POCT-GLUCOSE [id number] 21:51:00 Test Item Value Reference Range Comments POC-GLUCOSE METER (BEAKER) 279 mg/dL 70-110 TESTED AT [address] (test kcux=5175) [place] [id number] POCT-GLUCOSE [id number] 17:37:00 Test Item Value Reference Range Comments POC-GLUCOSE METER (BEAKER) 151 mg/dL 70-110 TESTED AT [address] (test mnev=6226) [place] [id number] BASIC METABOLIC [id number] 16:15:00 Test Item Value Reference Range Comments SODIUM (BEAKER) (test 138 meq/L 136-145 okrl=730) POTASSIUM (BEAKER) (test 3.7 meq/L 3.5-5.1 rpub=370) CHLORIDE (BEAKER) (test 102 meq/L 98-107 vymf=098) CO2 (BEAKER) (test 27 meq/L 22-29 fkom=577) BLOOD UREA NITROGEN 14 mg/dL 7-21 (BEAKER) (test xzxo=685) CREATININE (BEAKER) (test 1.25 mg/dL 0.57-1.25 golq=459) GLUCOSE RANDOM (BEAKER) 129 mg/dL 70-105 (test rjzi=057) CALCIUM (BEAKER) (test 9.4 mg/dL 8.4-10.2 trhb=885) EGFR (BEAKER) (test 60 mL/min/1.73 sq m ESTIMATED GFR IS NOT wmxw=9098) ACCURATE CREATININE CLEARANCE IN PREDICTING GLOMERULAR FILTRATION RATE. ESTIMATED GFR IS NOT APPLICABLE FOR DIALYSIS PATIENTS. Call [id number] 12:24:00 Test Item Value Reference Range Comments POC-GLUCOSE METER (BEAKER) 358 mg/dL 70-110 TESTED AT [address] (test darf=6835) [place] [id number] POCT-GLUCOSE [id number] 07:53:00 Test Item Value Reference Range Comments POC-GLUCOSE METER (BEAKER) 173 mg/dL 70-110 TESTED AT [address] (test mtmi=1653) [place] [id number] POCT-GLUCOSE [id number] 22:33:00 Test Item Value Reference Range Comments POC-GLUCOSE METER (BEAKER) 228 mg/dL 70-110 TESTED AT [address] (test xahp=3113) [place] [address] [id number] 09:58:00 Test Item Value Reference Range Comments PHOSPHORUS (BEAKER) (test caqd=857) 3.5 mg/dL 2.3-4.7 [id number] 09:58:00 Test Item Value Reference Range Comments MAGNESIUM (BEAKER) (test xeak=072) 1.9 mg/dL 1.6-2.6 COMPREHENSIVE METABOLIC [id number] 09:58:00 Test Item Value Reference Range Comments TOTAL PROTEIN (BEAKER) 7.5 gm/dL 6.0-8.3 (test hgzx=181) ALBUMIN (BEAKER) (test 3.5 g/dL 3.5-5.0 uhwf=7362) ALKALINE PHOSPHATASE 129 U/L 40-150 (BEAKER) (test fhpj=265) BILIRUBIN TOTAL (BEAKER) 0.9 mg/dL 0.2-1.2 (test nfkf=721) SODIUM (BEAKER) (test 136 meq/L 136-145 gisz=943) POTASSIUM (BEAKER) (test 3.6 meq/L 3.5-5.1 qhhy=141) CHLORIDE (BEAKER) (test 103 meq/L 98-107 sipm=393) CO2 (BEAKER) (test 24 meq/L 22-29 prfr=056) BLOOD UREA NITROGEN 14 mg/dL 7-21 (BEAKER) (test fgvr=791) CREATININE (BEAKER) (test 1.17 mg/dL 0.57-1.25 dbiw=267) GLUCOSE RANDOM (BEAKER) 224 mg/dL 70-105 (test wvwk=057) CALCIUM (BEAKER) (test 9.0 mg/dL 8.4-10.2 nmxx=822) AST (SGOT) (BEAKER) (test 57 U/L 5-34 ydhe=389) ALT (SGPT) (BEAKER) (test 25 U/L 6-55 fvby=870) EGFR (BEAKER) (test 65 mL/min/1.73 sq m ESTIMATED GFR IS NOT aclw=8535) ACCURATE CREATININE CLEARANCE IN PREDICTING GLOMERULAR FILTRATION RATE. ESTIMATED GFR IS NOT APPLICABLE FOR DIALYSIS PATIENTS. POCT-GLUCOSE [id number] 08:36:00 Test Item Value Reference Range Comments POC-GLUCOSE METER (BEAKER) 220 mg/dL 70-110 TESTED AT [facility] [address] (test fehh=5429) [place] [address] CBC W/PLT COUNT & AUTO [id number] 07:42:00 Test Item Value Reference Range Comments WHITE BLOOD CELL COUNT 5.4 K/ L 3.5-10.5 (BEAKER) (test acoj=312) RED BLOOD CELL COUNT (BEAKER) 4.30 M/ L 4.63-6.08 (test fpcv=187) HEMOGLOBIN (BEAKER) (test 8.6 GM/DL 13.7-17.5 xavp=023) HEMATOCRIT (BEAKER) (test 29.3 % 40.1-51.0 uybs=327) MEAN CORPUSCULAR VOLUME 68.1 fL 79.0-92.2 (BEAKER) (test dhjd=662) MEAN CORPUSCULAR HEMOGLOBIN 20.0 pg 25.7-32.2 (BEAKER) (test rrxg=819) MEAN CORPUSCULAR HEMOGLOBIN 29.4 GM/DL 32.3-36.5 CONC (BEAKER) (test hfvf=349) RED CELL DISTRIBUTION WIDTH 20.7 % 11.6-14.4 (BEAKER) (test xzdh=843) PLATELET COUNT (BEAKER) (test 112 K/CU MM 150-450 kegc=292) MEAN PLATELET VOLUME (BEAKER) fL 9.4-12.4 Unable to report due to (test mlyj=366) abnormal Platelet population distribution. NUCLEATED RED BLOOD CELLS 0 /100 WBC 0-0 (BEAKER) (test pfty=673) NEUTROPHILS RELATIVE PERCENT 71 % (BEAKER) (test aqau=571) LYMPHOCYTES RELATIVE PERCENT 15 % (BEAKER) (test walp=631) MONOCYTES RELATIVE PERCENT 9 % (BEAKER) (test sxgw=874) EOSINOPHILS RELATIVE PERCENT 5 % (BEAKER) (test bqvy=480) BASOPHILS RELATIVE PERCENT 1 % (BEAKER) (test bmqs=148) NEUTROPHILS ABSOLUTE COUNT 3.79 K/ L 1.78-5.38 (BEAKER) (test hdue=740) LYMPHOCYTES ABSOLUTE COUNT 0.79 K/ L 1.32-3.57 (BEAKER) (test dcjx=100) MONOCYTES ABSOLUTE COUNT 0.48 K/ L 0.30-0.82 (BEAKER) (test jaev=890) EOSINOPHILS ABSOLUTE COUNT 0.28 K/ L 0.04-0.54 (BEAKER) (test bzix=822) BASOPHILS ABSOLUTE COUNT 0.04 K/ L 0.01-0.08 (BEAKER) (test rjcm=530) IMMATURE GRANULOCYTES-RELATIVE 0 % 0-1 PERCENT (BEAKER) (test uwal=7711) CALCIUM, [id number] 06:42:00 Test Item Value Reference Range Comments CALCIUM IONIZED (BEAKER) (test mctc=251) 1.07 mmol/L 1.12-1.27 PH, BLOOD (BEAKER) (test ulmn=8050) 7.42 POCT-GLUCOSE [id number] 22:30:00 Test Item Value Reference Range Comments POC-GLUCOSE METER (BEAKER) 183 mg/dL 70-110 TESTED AT [address] (test qaxw=1387) [place] [id number] POCT-GLUCOSE [id number] 18:41:00 Test Item Value Reference Range Comments POC-GLUCOSE METER (BEAKER) 278 mg/dL 70-110 TESTED AT [address] (test xmwz=0037) [place] [id number] POCT-GLUCOSE [id number] 11:50:00 Test Item Value Reference Range Comments POC-GLUCOSE METER (BEAKER) 142 mg/dL 70-110 TESTED AT [address] (test nsjp=7316) [facility] [address] POCT-GLUCOSE [id number] 10:36:00 Test Item Value Reference Range Comments POC-GLUCOSE METER (BEAKER) 130 mg/dL 70-110 TESTED AT [address] (test jvvj=3515) [place] [id number] POCT-GLUCOSE [id number] 07:40:00 Test Item Value Reference Range Comments POC-GLUCOSE METER (BEAKER) 145 mg/dL 70-110 TESTED AT [address] (test jbbf=1725) [facility] [address] CBC W/PLT COUNT & AUTO [id number] 06:58:00 Test Item Value Reference Range Comments WHITE BLOOD CELL COUNT 5.1 K/ L 3.5-10.5 (BEAKER) (test ffzd=617) RED BLOOD CELL COUNT (BEAKER) 4.31 M/ L 4.63-6.08 (test vyhv=043) HEMOGLOBIN (BEAKER) (test 8.3 GM/DL 13.7-17.5 yqzm=940) HEMATOCRIT (BEAKER) (test 29.6 % 40.1-51.0 lfda=160) MEAN CORPUSCULAR VOLUME 68.7 fL 79.0-92.2 (BEAKER) (test ipdr=593) MEAN CORPUSCULAR HEMOGLOBIN 19.3 pg 25.7-32.2 (BEAKER) (test skmn=290) MEAN CORPUSCULAR HEMOGLOBIN 28.0 GM/DL 32.3-36.5 CONC (BEAKER) (test nfdm=115) RED CELL DISTRIBUTION WIDTH 21.1 % 11.6-14.4 (BEAKER) (test tlxn=112) PLATELET COUNT (BEAKER) (test 108 K/CU MM 150-450 wjbr=685) MEAN PLATELET VOLUME (BEAKER) fL 9.4-12.4 Unable to report due to (test owdp=224) abnormal Platelet population distribution. NUCLEATED RED BLOOD CELLS 0 /100 WBC 0-0 (BEAKER) (test bkem=193) NEUTROPHILS RELATIVE PERCENT 65 % (BEAKER) (test mpgh=240) LYMPHOCYTES RELATIVE PERCENT 20 % (BEAKER) (test cicc=763) MONOCYTES RELATIVE PERCENT 8 % (BEAKER) (test aqeb=418) EOSINOPHILS RELATIVE PERCENT 7 % (BEAKER) (test fnki=344) BASOPHILS RELATIVE PERCENT 1 % (BEAKER) (test wvni=433) NEUTROPHILS ABSOLUTE COUNT 3.30 K/ L 1.78-5.38 (BEAKER) (test ttqj=247) LYMPHOCYTES ABSOLUTE COUNT 1.00 K/ L 1.32-3.57 (BEAKER) (test qsbj=972) MONOCYTES ABSOLUTE COUNT 0.40 K/ L 0.30-0.82 (BEAKER) (test xwfr=480) EOSINOPHILS ABSOLUTE COUNT 0.33 K/ L 0.04-0.54 (BEAKER) (test txdi=844) BASOPHILS ABSOLUTE COUNT 0.05 K/ L 0.01-0.08 (BEAKER) (test cdfg=607) IMMATURE GRANULOCYTES-RELATIVE 0 % 0-1 PERCENT (BEAKER) (test raho=8393) [id number] 06:56:00 Test Item Value Reference Range Comments PHOSPHORUS (BEAKER) (test gntv=305) 3.7 mg/dL 2.3-4.7 [id number] 06:56:00 Test Item Value Reference Range Comments MAGNESIUM (BEAKER) (test zjer=647) 1.6 mg/dL 1.6-2.6 BASIC METABOLIC [id number] 06:56:00 Test Item Value Reference Range Comments SODIUM (BEAKER) (test 138 meq/L 136-145 iedl=412) POTASSIUM (BEAKER) (test 3.9 meq/L 3.5-5.1 zixx=582) CHLORIDE (BEAKER) (test 105 meq/L 98-107 wnlh=270) CO2 (BEAKER) (test 25 meq/L 22-29 mqcy=191) BLOOD UREA NITROGEN 13 mg/dL 7-21 (BEAKER) (test oboa=000) CREATININE (BEAKER) (test 1.06 mg/dL 0.57-1.25 vkqa=055) GLUCOSE RANDOM (BEAKER) 115 mg/dL 70-105 (test znro=702) CALCIUM (BEAKER) (test 8.8 mg/dL 8.4-10.2 ferg=503) EGFR (BEAKER) (test 73 mL/min/1.73 sq m ESTIMATED GFR IS NOT ggge=0256) ACCURATE CREATININE CLEARANCE IN PREDICTING GLOMERULAR FILTRATION RATE. ESTIMATED GFR IS NOT APPLICABLE FOR DIALYSIS PATIENTS. CALCIUM, [id number] 06:46:00 Test Item Value Reference Range Comments CALCIUM IONIZED (BEAKER) (test xdkn=488) 0.89 mmol/L 1.12-1.27 PH, BLOOD (BEAKER) (test qvti=5256) 7.41 PROTHROMBIN [id number] 06:38:00 Test Item Value Reference Range Comments PROTIME (BEAKER) (test bmsb=120) 15.2 seconds 11.7-14.7 INR (BEAKER) (test nwiv=612) 1.2 <=5.9 RECOMMENDED COUMADIN/WARFARIN INR THERAPY RANGESSTANDARD DOSE: 2.0 - 3.0 Includes: PROPHYLAXIS forvenous thrombosis, systemic embolization; TREATMENT for venous thrombosis and/or pulmonary embolus.HIGH RISK: Target INR is 2.5-3.5 for patients with mechanical heart valves.B-TYPE NATRIURETIC FACTOR (BNP)2018-12 06:35:00 Test Item Value Reference Range Comments B-TYPE NATRIURETIC PEPTIDE (BEAKER) (test 135 pg/mL 0-100 ydsl=220) POCT-GLUCOSE [id number] 22:28:00 Test Item Value Reference Range Comments POC-GLUCOSE METER (BEAKER) 109 mg/dL 70-110 TESTED AT [address] (test ynky=3629) [facility] [address] POCT-GLUCOSE [id number] 21:07:00 Test Item Value Reference Range Comments POC-GLUCOSE METER (BEAKER) 91 mg/dL 70-110 TESTED AT [address] (test lktd=4489) [facility] [address] POCT-GLUCOSE [id number] 16:48:00 Test Item Value Reference Range Comments POC-GLUCOSE METER (BEAKER) 487 mg/dL 70-110 TESTED AT [address] (test taab=2154) [facility] [address] HOPE [id number] 12:58:00Reason for Exam:->recurrent variceal bleeding, portal hypertensionFINAL REPORT History: Portal hypertension, history of variceal bleeding. PROCEDURE: Following informed written consent, general endotracheal anesthesia was administered and the patient's right cervical region was prepped and draped in the usual sterile manner. Access was gained the right internal jugular vein using a micropuncture needle. A 9 Mauritanian sheath was placed at the access site into the jugular vein. A 5 Mauritanian multipurpose catheter and wire were used to carefully select the hepatic vein and perform a hepatic venogram. Hepatic venous pressures were then performed as described below. 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 Cano, who also conferred with cardiology, [...] Verified Date/Time: 12/26/2018 12: 58:23 Reading Location: [place] [address] Angio Body Reading Room POCT-GLUCOSE [id number] 12:50:00 Test Item Value Reference Range Comments POC-GLUCOSE METER (BEAKER) 124 mg/dL 70-110 TESTED AT [address] (test nsbx=0408) [facility] [address] POCT-GLUCOSE [id number] 10:41:00 Test Item Value Reference Range Comments POC-GLUCOSE METER (BEAKER) 158 mg/dL 70-110 TESTED AT [facility] [address] (test ntmz=8547) [facility] [address] COMPREHENSIVE METABOLIC [id number] 07:58:00 Test Item Value Reference Range Comments TOTAL PROTEIN (BEAKER) 7.2 gm/dL 6.0-8.3 (test eygp=204) ALBUMIN (BEAKER) (test 3.0 g/dL 3.5-5.0 lezm=7215) ALKALINE PHOSPHATASE 142 U/L 40-150 (BEAKER) (test raui=117) BILIRUBIN TOTAL (BEAKER) 0.9 mg/dL 0.2-1.2 (test jmvo=807) SODIUM (BEAKER) (test 138 meq/L 136-145 toqk=355) POTASSIUM (BEAKER) (test 4.4 meq/L 3.5-5.1 xehs=196) CHLORIDE (BEAKER) (test 106 meq/L 98-107 myjb=999) CO2 (BEAKER) (test 26 meq/L 22-29 zkjy=916) BLOOD UREA NITROGEN 10 mg/dL 7-21 (BEAKER) (test bvif=889) CREATININE (BEAKER) (test 0.91 mg/dL 0.57-1.25 gatf=681) GLUCOSE RANDOM (BEAKER) 134 mg/dL 70-105 (test vyhw=843) CALCIUM (BEAKER) (test 9.3 mg/dL 8.4-10.2 pgpb=507) AST (SGOT) (BEAKER) (test 69 U/L 5-34 kwcw=436) ALT (SGPT) (BEAKER) (test 29 U/L 6-55 yewr=156) EGFR (BEAKER) (test 86 mL/min/1.73 sq m ESTIMATED GFR IS NOT scnm=1572) ACCURATE CREATININE CLEARANCE IN PREDICTING GLOMERULAR FILTRATION RATE. ESTIMATED GFR IS NOT APPLICABLE FOR DIALYSIS PATIENTS. [id number] 07:58:00 Test Item Value Reference Range Comments PROTIME (BEAKER) (test qvcy=161) 15.4 seconds 11.7-14.7 INR (BEAKER) (test yrfs=172) 1.2 <=5.9 PARTIAL THROMBOPLASTIN TIME (BEAKER) (test 35.4 seconds 22.5-36.0 rkid=125) RECOMMENDED COUMADIN/WARFARIN INR THERAPY RANGESSTANDARD DOSE: 2.0 - 3.0 Includes: PROPHYLAXIS forvenous thrombosis, systemic embolization; TREATMENT for venous thrombosis and/or pulmonary embolus.HIGH RISK: Target INR is 2.5-3.5 for patients with mechanical heart valves.CBC W/PLT COUNT & AUTO [id number] 07:52:00 Test Item Value Reference Range Comments WHITE BLOOD CELL COUNT (BEAKER) (test qnme=104) 4.6 K/ L 3.5-10.5 RED BLOOD CELL COUNT (BEAKER) (test aczc=655) 4.35 M/ L 4.63-6.08 HEMOGLOBIN (BEAKER) (test lgwn=983) 8.6 GM/DL 13.7-17.5 HEMATOCRIT (BEAKER) (test nlkp=301) 30.1 % 40.1-51.0 MEAN CORPUSCULAR VOLUME (BEAKER) (test opeu=308) 69.2 fL 79.0-92.2 MEAN CORPUSCULAR HEMOGLOBIN (BEAKER) (test 19.8 pg 25.7-32.2 pzwm=973) MEAN CORPUSCULAR HEMOGLOBIN CONC (BEAKER) (test 28.6 GM/DL 32.3-36.5 qude=029) RED CELL DISTRIBUTION WIDTH (BEAKER) (test 21.3 % 11.6-14.4 lopr=962) PLATELET COUNT (BEAKER) (test uala=704) 110 K/CU MM 150-450 MEAN PLATELET VOLUME (BEAKER) (test ubxg=139) 10.1 fL 9.4-12.4 NUCLEATED RED BLOOD CELLS (BEAKER) (test 0 /100 WBC 0-0 dmwv=734) NEUTROPHILS RELATIVE PERCENT (BEAKER) (test 66 % ungk=499) LYMPHOCYTES RELATIVE PERCENT (BEAKER) (test 19 % wbzf=157) MONOCYTES RELATIVE PERCENT (BEAKER) (test 8 % jtet=078) EOSINOPHILS RELATIVE PERCENT (BEAKER) (test 6 % esvl=841) BASOPHILS RELATIVE PERCENT (BEAKER) (test 1 % kwjr=596) NEUTROPHILS ABSOLUTE COUNT (BEAKER) (test 3.03 K/ L 1.78-5.38 yaze=583) LYMPHOCYTES ABSOLUTE COUNT (BEAKER) (test 0.88 K/ L 1.32-3.57 vphz=042) MONOCYTES ABSOLUTE COUNT (BEAKER) (test 0.37 K/ L 0.30-0.82 eugd=468) EOSINOPHILS ABSOLUTE COUNT (BEAKER) (test 0.25 K/ L 0.04-0.54 tupa=541) BASOPHILS ABSOLUTE COUNT (BEAKER) (test 0.04 K/ L 0.01-0.08 ldqp=203) IMMATURE GRANULOCYTES-RELATIVE PERCENT (BEAKER) 0 % 0-1 (test igxb=5600) POCT-GLUCOSE [id number] 00:26:00 Test Item Value Reference Range Comments POC-GLUCOSE METER (BEAKER) 161 mg/dL 70-110 TESTED AT [address] (test jdze=6090) [facility] [address] URINALYSIS W/ [id number] 17:35:00 Test Item Value Reference Range Comments COLOR (BEAKER) (test jmgg=866) Light Yellow CLARITY (BEAKER) (test dijj=477) Clear SPECIFIC GRAVITY UA (BEAKER) (test zmdg=398) 1.008 1.001-1.035 PH UA (BEAKER) (test eiih=503) 7.5 5.0-8.0 PROTEIN UA (BEAKER) (test azzj=659) 30 mg/dL Negative GLUCOSE UA (BEAKER) (test lttb=850) 30 mg/dL Negative KETONES UA (BEAKER) (test vinw=308) Negative Negative BILIRUBIN UA (BEAKER) (test ovjw=652) Negative Negative BLOOD UA (BEAKER) (test bwhz=832) Trace Negative NITRITE UA (BEAKER) (test mpzu=384) Negative Negative LEUKOCYTE ESTERASE UA (BEAKER) (test xjhl=525) Negative Negative UROBILINOGEN UA (BEAKER) (test wblf=264) 0.2 mg/dL 0.2-1.0 RBC UA (BEAKER) (test fzxf=211) 1 /HPF WBC UA (BEAKER) (test xyqs=259) 1 /HPF SOURCE(BEAKER) (test bxxq=3340) Urine, Voided POCT-GLUCOSE [id number] 16:55:00 Test Item Value Reference Range Comments POC-GLUCOSE METER (BEAKER) 234 mg/dL 70-110 TESTED AT [address] (test vvsb=8584) [facility] [address] POCT-GLUCOSE [id number] 12:09:00 Test Item Value Reference Range Comments POC-GLUCOSE METER (BEAKER) 199 mg/dL 70-110 TESTED AT [address] (test inlm=0871) [facility] [address] POCT-GLUCOSE [id number] 07:58:00 Test Item Value Reference Range Comments POC-GLUCOSE METER (BEAKER) 221 mg/dL 70-110 TESTED AT [address] (test loei=8216) [facility] [address] POCT-GLUCOSE [id number] 22:49:00 Test Item Value Reference Range Comments POC-GLUCOSE METER (BEAKER) 210 mg/dL 70-110 TESTED AT [address] (test wutf=3032) [facility] [address] POCT-GLUCOSE [id number] 14:45:00 Test Item Value Reference Range Comments POC-GLUCOSE METER (BEAKER) 128 mg/dL 70-110 TESTED AT [address] (test pdxo=1954) [facility] [address] POCT-GLUCOSE [id number] 12:03:00 Test Item Value Reference Range Comments POC-GLUCOSE METER (BEAKER) 136 mg/dL 70-110 TESTED AT [address] (test hehn=4716) [facility] [address] COMPREHENSIVE METABOLIC [id number] 09:07:00 Test Item Value Reference Range Comments TOTAL PROTEIN (BEAKER) 6.9 gm/dL 6.0-8.3 Specimen slightly (test urgv=147) hemolyzed ALBUMIN (BEAKER) (test 2.7 g/dL 3.5-5.0 Specimen slightly nhkc=1256) hemolyzed ALKALINE PHOSPHATASE 136 U/L 40-150 (BEAKER) (test wybr=831) BILIRUBIN TOTAL (BEAKER) 1.1 mg/dL 0.2-1.2 Specimen slightly (test gaix=211) hemolyzed SODIUM (BEAKER) (test 135 meq/L 136-145 bvsh=013) POTASSIUM (BEAKER) (test 4.4 meq/L 3.5-5.1 Specimen slightly frhz=216) hemolyzed CHLORIDE (BEAKER) (test 106 meq/L 98-107 hibs=111) CO2 (BEAKER) (test 26 meq/L 22-29 hnnc=919) BLOOD UREA NITROGEN 7 mg/dL 7-21 (BEAKER) (test nssv=460) CREATININE (BEAKER) (test 0.85 mg/dL 0.57-1.25 Specimen slightly ldbu=045) hemolyzed GLUCOSE RANDOM (BEAKER) 118 mg/dL 70-105 (test emru=081) CALCIUM (BEAKER) (test 8.8 mg/dL 8.4-10.2 fvfp=715) AST (SGOT) (BEAKER) (test 69 U/L 5-34 Specimen slightly egdm=136) hemolyzed ALT (SGPT) (BEAKER) (test 28 U/L 6-55 Specimen slightly hsua=769) hemolyzed EGFR (BEAKER) (test 94 mL/min/1.73 sq m ESTIMATED GFR IS NOT xatm=4456) ACCURATE CREATININE CLEARANCE IN PREDICTING GLOMERULAR FILTRATION RATE. ESTIMATED GFR IS NOT APPLICABLE FOR DIALYSIS PATIENTS. CBC W/PLT COUNT & AUTO [id number] 08:37:00 Test Item Value Reference Range Comments WHITE BLOOD CELL COUNT 4.4 K/ L 3.5-10.5 (BEAKER) (test nepj=815) RED BLOOD CELL COUNT (BEAKER) 4.31 M/ L 4.63-6.08 (test nsvh=410) HEMOGLOBIN (BEAKER) (test 8.4 GM/DL 13.7-17.5 gets=059) HEMATOCRIT (BEAKER) (test 30.2 % 40.1-51.0 bkwh=564) MEAN CORPUSCULAR VOLUME 70.1 fL 79.0-92.2 (BEAKER) (test dxwm=825) MEAN CORPUSCULAR HEMOGLOBIN 19.5 pg 25.7-32.2 (BEAKER) (test xoez=152) MEAN CORPUSCULAR HEMOGLOBIN 27.8 GM/DL 32.3-36.5 CONC (BEAKER) (test uboz=012) RED CELL DISTRIBUTION WIDTH 21.9 % 11.6-14.4 (BEAKER) (test kkzr=635) PLATELET COUNT (BEAKER) (test 114 K/CU MM 150-450 ssdl=608) MEAN PLATELET VOLUME (BEAKER) fL 9.4-12.4 Unable to report due to (test ovnf=942) abnormal Platelet population distribution. NUCLEATED RED BLOOD CELLS 0 /100 WBC 0-0 (BEAKER) (test knta=112) NEUTROPHILS RELATIVE PERCENT 62 % (BEAKER) (test obvy=882) LYMPHOCYTES RELATIVE PERCENT 22 % (BEAKER) (test fzpc=670) MONOCYTES RELATIVE PERCENT 8 % (BEAKER) (test ljzl=882) EOSINOPHILS RELATIVE PERCENT 6 % (BEAKER) (test msdc=460) BASOPHILS RELATIVE PERCENT 1 % (BEAKER) (test jqod=671) NEUTROPHILS ABSOLUTE COUNT 2.75 K/ L 1.78-5.38 (BEAKER) (test suxh=816) LYMPHOCYTES ABSOLUTE COUNT 0.98 K/ L 1.32-3.57 (BEAKER) (test dftu=787) MONOCYTES ABSOLUTE COUNT 0.34 K/ L 0.30-0.82 (BEAKER) (test lwmn=320) EOSINOPHILS ABSOLUTE COUNT 0.28 K/ L 0.04-0.54 (BEAKER) (test fnrn=800) BASOPHILS ABSOLUTE COUNT 0.06 K/ L 0.01-0.08 (BEAKER) (test uijy=604) IMMATURE GRANULOCYTES-RELATIVE 1 % 0-1 PERCENT (BEAKER) (test aemo=1787) POCT-GLUCOSE [id number] 08:07:00 Test Item Value Reference Range Comments POC-GLUCOSE METER (BEAKER) 144 mg/dL 70-110 TESTED AT [address] (test piuu=2827) [place] [address] [id number] 23:43:00 Test Item Value Reference Range Comments MAGNESIUM (BEAKER) (test kumr=529) 1.7 mg/dL 1.6-2.6 POCT-GLUCOSE [id number] 22:22:00 Test Item Value Reference Range Comments POC-GLUCOSE METER (BEAKER) 211 mg/dL 70-110 TESTED AT [address] (test qzum=4514) [place] [address] POCT-GLUCOSE [id number] 17:13:00 Test Item Value Reference Range Comments POC-GLUCOSE METER (BEAKER) 202 mg/dL 70-110 TESTED AT [address] (test kvrt=6497) [place] [address] [id number] 16:14:00 Test Item Value Reference Range Comments T3 TOTAL (BEAKER) (test ewkx=391) 108 ng/dL 48-159 POCT-GLUCOSE [id number] 13:49:00 Test Item Value Reference Range Comments POC-GLUCOSE METER (BEAKER) 303 mg/dL 70-110 TESTED AT [facility] [address] [facility] (test weld=8122) [facility] [address] POCT-GLUCOSE [id number] 12:15:00 Test Item Value Reference Range Comments POC-GLUCOSE METER (BEAKER) 304 mg/dL 70-110 Notified JADA NIX/TESTED AT [facility] (test blxx=3164) [address] [place] [id number] ANTI-MITOCHONDRIAL AB, REFLEX TO [id number] 08:35:00 Test Item Value Reference Range Comments SCAN RESULT (test eicu=[id number]) POCT-GLUCOSE [id number] 08:08:00 Test Item Value Reference Range Comments POC-GLUCOSE METER (BEAKER) 146 mg/dL 70-110 TESTED AT [facility] [address] [facility] (test ofat=2030) [facility] [address] HEPATIC FUNCTION [id number] 06:32:00 Test Item Value Reference Range Comments TOTAL PROTEIN (BEAKER) (test nxll=140) 6.5 gm/dL 6.0-8.3 ALBUMIN (BEAKER) (test pfhf=9194) 2.7 g/dL 3.5-5.0 BILIRUBIN TOTAL (BEAKER) (test gulx=117) 0.8 mg/dL 0.2-1.2 BILIRUBIN DIRECT (BEAKER) (test hget=424) 0.6 mg/dL 0.1-0.5 ALKALINE PHOSPHATASE (BEAKER) (test qxfu=341) 141 U/L 40-150 AST (SGOT) (BEAKER) (test cszx=632) 66 U/L 5-34 ALT (SGPT) (BEAKER) (test romc=863) 27 U/L 6-55 BASIC METABOLIC [id number] 06:32:00 Test Item Value Reference Range Comments SODIUM (BEAKER) (test 137 meq/L 136-145 aaie=280) POTASSIUM (BEAKER) (test 4.0 meq/L 3.5-5.1 xeso=657) CHLORIDE (BEAKER) (test 106 meq/L 98-107 yzzn=235) CO2 (BEAKER) (test 26 meq/L 22-29 ztxm=753) BLOOD UREA NITROGEN 7 mg/dL 7-21 (BEAKER) (test nhmm=776) CREATININE (BEAKER) (test 0.81 mg/dL 0.57-1.25 yupy=586) GLUCOSE RANDOM (BEAKER) 134 mg/dL 70-105 (test jprw=784) CALCIUM (BEAKER) (test 8.6 mg/dL 8.4-10.2 mgsn=896) EGFR (BEAKER) (test 99 mL/min/1.73 sq m ESTIMATED GFR IS NOT gnhk=1697) ACCURATE CREATININE CLEARANCE IN PREDICTING GLOMERULAR FILTRATION RATE. ESTIMATED GFR IS NOT APPLICABLE FOR DIALYSIS PATIENTS. CBC (HEMOGRAM ONLY)2018-12-23 05:34:00 Test Item Value Reference Range Comments WHITE BLOOD CELL COUNT (BEAKER) (test acra=145) 4.4 K/ L 3.5-10.5 RED BLOOD CELL COUNT (BEAKER) (test jllq=721) 4.11 M/ L 4.63-6.08 HEMOGLOBIN (BEAKER) (test ohsm=971) 8.0 GM/DL 13.7-17.5 HEMATOCRIT (BEAKER) (test lxma=114) 28.2 % 40.1-51.0 MEAN CORPUSCULAR VOLUME (BEAKER) (test yjbn=166) 68.6 fL 79.0-92.2 MEAN CORPUSCULAR HEMOGLOBIN (BEAKER) (test 19.5 pg 25.7-32.2 ohcm=488) MEAN CORPUSCULAR HEMOGLOBIN CONC (BEAKER) (test 28.4 GM/DL 32.3-36.5 nxyb=052) RED CELL DISTRIBUTION WIDTH (BEAKER) (test 21.5 % 11.6-14.4 bsxc=942) PLATELET COUNT (BEAKER) (test xvgj=944) 121 K/CU MM 150-450 MEAN PLATELET VOLUME (BEAKER) (test fdfk=050) 10.2 fL 9.4-12.4 NUCLEATED RED BLOOD CELLS (BEAKER) (test 0 /100 WBC 0-0 uimg=617) PROTHROMBIN [id number] 05:27:00 Test Item Value Reference Range Comments PROTIME (BEAKER) (test pocu=654) 15.2 seconds 11.7-14.7 INR (BEAKER) (test mgxc=431) 1.2 <=5.9 RECOMMENDED COUMADIN/WARFARIN INR THERAPY RANGESSTANDARD DOSE: 2.0 - 3.0 Includes: PROPHYLAXIS forvenous thrombosis, systemic embolization; TREATMENT for venous thrombosis and/or pulmonary embolus.HIGH RISK: Target INR is 2.5-3.5 for patients with mechanical heart valves.POCT-GLUCOSE [id number] 23:11:00 Test Item Value Reference Range Comments POC-GLUCOSE METER (BEAKER) 224 mg/dL 70-110 TESTED AT [address] (test iwaq=1463) [facility] [address] POCT-GLUCOSE [id number] 16:52:00 Test Item Value Reference Range Comments POC-GLUCOSE METER (BEAKER) 250 mg/dL 70-110 TESTED AT [address] (test zlcz=9356) [facility] [address] POCT-GLUCOSE [id number] 11:56:00 Test Item Value Reference Range Comments POC-GLUCOSE METER (BEAKER) 310 mg/dL 70-110 TESTED AT [address] (test zccr=1045) [facility] [address] POCT-GLUCOSE [id number] 07:50:00 Test Item Value Reference Range Comments POC-GLUCOSE METER (BEAKER) 267 mg/dL 70-110 TESTED AT [address] (test fdkl=8441) [facility] [address] COMPREHENSIVE METABOLIC [id number] 05:05:00 Test Item Value Reference Range Comments TOTAL PROTEIN (BEAKER) 6.3 gm/dL 6.0-8.3 (test lnos=621) ALBUMIN (BEAKER) (test 2.6 g/dL 3.5-5.0 pivp=3502) ALKALINE PHOSPHATASE 112 U/L 40-150 (BEAKER) (test gjcp=948) BILIRUBIN TOTAL (BEAKER) 0.9 mg/dL 0.2-1.2 (test fpjw=628) SODIUM (BEAKER) (test 138 meq/L 136-145 uuln=794) POTASSIUM (BEAKER) (test 3.9 meq/L 3.5-5.1 mzls=237) CHLORIDE (BEAKER) (test 108 meq/L 98-107 jywe=836) CO2 (BEAKER) (test 25 meq/L 22-29 wjjt=347) BLOOD UREA NITROGEN 6 mg/dL 7-21 (BEAKER) (test imua=026) CREATININE (BEAKER) (test 0.82 mg/dL 0.57-1.25 mpsl=155) GLUCOSE RANDOM (BEAKER) 146 mg/dL 70-105 (test txrl=528) CALCIUM (BEAKER) (test 8.8 mg/dL 8.4-10.2 kown=895) AST (SGOT) (BEAKER) (test 73 U/L 5-34 efij=126) ALT (SGPT) (BEAKER) (test 25 U/L 6-55 vfgx=799) EGFR (BEAKER) (test 98 mL/min/1.73 sq m ESTIMATED GFR IS NOT vppl=8827) ACCURATE CREATININE CLEARANCE IN PREDICTING GLOMERULAR FILTRATION RATE. ESTIMATED GFR IS NOT APPLICABLE FOR DIALYSIS PATIENTS. POCT-GLUCOSE [id number] 22:34:00 Test Item Value Reference Range Comments POC-GLUCOSE METER (BEAKER) 186 mg/dL 70-110 TESTED AT [address] (test bgov=6261) [place] [id number] POCT-GLUCOSE [id number] 18:03:00 Test Item Value Reference Range Comments POC-GLUCOSE METER (BEAKER) 206 mg/dL 70-110 TESTED AT [address] (test lqpw=8384) [place] [address] RAD, MANDIBLE, MIN 4 [id number] 17:16:00Reason for exam:->liver transplant evalShould this be [...] concern, consider a maxillofacial CT. Signed: Anita Mauricioeport Verified Date/Time: 12/21/2018 17:16:26 Reading Location: [address] Reading Room POCT-GLUCOSE [id number] 11:42:00 Test Item Value Reference Range Comments POC-GLUCOSE METER (BEAKER) 305 mg/dL 70-110 Notified JADA INX/TESTED AT [facility] (test vcgu=7304) [address] [place] [address] POCT-GLUCOSE [id number] 08:14:00 Test Item Value Reference Range Comments POC-GLUCOSE METER (BEAKER) 288 mg/dL 70-110 TESTED AT [address] (test uktc=9118) [facility] [address] POCT-GLUCOSE [id number] 23:29:00 Test Item Value Reference Range Comments POC-GLUCOSE METER (BEAKER) 134 mg/dL 70-110 TESTED AT [address] (test qcbl=4639) [place] [id number] POCT-GLUCOSE [id number] 18:42:00 Test Item Value Reference Range Comments POC-GLUCOSE METER (BEAKER) 357 mg/dL 70-110 TESTED AT [address] (test mltp=2238) [place] [address] CRYPTOCOCCAL [id number] 11:32:00 Test Item Value Reference Range Comments CRYPTOCOCCAL ANTIGEN, SERUM (BEAKER) (test Negative Negative, Interference pais=6782) [id number] 11:30:00 Test Item Value Reference Range Comments RPR SCREEN (BEAKER) (test ykgk=830) Nonreactive Nonreactive HEMOGLOBIN [id number] 10:23:00 Test Item Value Reference Range Comments HEMOGLOBIN A1C (BEAKER) (test nboi=146) 6.7 % 4.3-6.1 CYTOMEGALOVIRUS ANTIBODY, [id number] 09:29:00 Test Item Value Reference Range Comments CYTOMEGALOVIRUS, IGG (BEAKER) (test xvpe=3833) Positive Negative, Equivocal CMV IgG Result Interpretation: </=0.8 Al Negative 0.9-1.0 Al Equivocal &gt ;/=1.1 Al PositiveCYTOMEGALOVIRUS ANTIBODY, [id number] 09:29:00 Test Item Value Reference Range Comments CYTOMEGALOVIRUS IGM ANTIBODY (BEAKER) (test Negative Negative, Equivocal zglg=2322) CMV IgM Result Interpretation: </=0.8 Al Negative 0.9-1.0 Al Equivocal >/=1.1 Al PositiveEBV ANTIBODY, [id number] 09:29:00 Test Item Value Reference Range Comments JAQUELINE MEDRANO VIRAL CAPSID ANTIGEN IGG (BEAKER) Positive Negative, Equivocal (test dgif=6046) Jaqueline Medrano Viral Capsid Antigen IgG Result Interpretation: </=0.8 Al Negative 0.9-1.0 Al Equivocal >/=1.1 Al PositiveEBV ANTIBODY, [id number] 09:29:00 Test Item Value Reference Range Comments JAQUELINE MEDRANO VIRAL CAPSID ANTIGEN IGM (BEAKER) Negative Negative, Equivocal (test oxht=8653) Jaqueline Medrano Viral Capsid Antigen IgM Result Interpretation: </=0.8 Al Negative 0.9-1.0 Al Equivocal >/=1.1 Al PositivePOCT-GLUCOSE [id number] 07:53:00 Test Item Value Reference Range Comments POC-GLUCOSE METER (BEAKER) 168 mg/dL 70-110 TESTED AT [facility] [address] [facility] (test tpzq=2490) [facility] [address] CBC (HEMOGRAM ONLY)2018-12-20 07:02:00 Test Item Value Reference Range Comments WHITE BLOOD CELL COUNT (BEAKER) (test lhat=375) 4.7 K/ L 3.5-10.5 RED BLOOD CELL COUNT (BEAKER) (test maxt=975) 4.09 M/ L 4.63-6.08 HEMOGLOBIN (BEAKER) (test akwc=696) 8.1 GM/DL 13.7-17.5 HEMATOCRIT (BEAKER) (test nxlm=173) 28.3 % 40.1-51.0 MEAN CORPUSCULAR VOLUME (BEAKER) (test rgyi=814) 69.2 fL 79.0-92.2 MEAN CORPUSCULAR HEMOGLOBIN (BEAKER) (test 19.8 pg 25.7-32.2 alnj=752) MEAN CORPUSCULAR HEMOGLOBIN CONC (BEAKER) (test 28.6 GM/DL 32.3-36.5 uvvj=141) RED CELL DISTRIBUTION WIDTH (BEAKER) (test 21.8 % 11.6-14.4 pzaj=350) PLATELET COUNT (BEAKER) (test qjic=509) 121 K/CU MM 150-450 MEAN PLATELET VOLUME (BEAKER) (test xxim=715) 10.6 fL 9.4-12.4 NUCLEATED RED BLOOD CELLS (BEAKER) (test 0 /100 WBC 0-0 nkqm=054) CALCIUM, [id number] 06:36:00 Test Item Value Reference Range Comments CALCIUM IONIZED (BEAKER) (test raiw=126) 1.07 mmol/L 1.12-1.27 PH, BLOOD (BEAKER) (test hvba=8854) 7.41 HEPATIC FUNCTION [id number] 06:32:00 Test Item Value Reference Range Comments TOTAL PROTEIN (BEAKER) (test fiai=801) 6.4 gm/dL 6.0-8.3 ALBUMIN (BEAKER) (test daol=9261) 2.6 g/dL 3.5-5.0 BILIRUBIN TOTAL (BEAKER) (test vosu=771) 0.6 mg/dL 0.2-1.2 BILIRUBIN DIRECT (BEAKER) (test fjxi=123) 0.4 mg/dL 0.1-0.5 ALKALINE PHOSPHATASE (BEAKER) (test hetx=745) 127 U/L 40-150 AST (SGOT) (BEAKER) (test ccfm=470) 54 U/L 5-34 ALT (SGPT) (BEAKER) (test khur=474) 22 U/L 6-55 BASIC METABOLIC [id number] 06:32:00 Test Item Value Reference Range Comments SODIUM (BEAKER) (test 138 meq/L 136-145 wpbk=708) POTASSIUM (BEAKER) (test 3.8 meq/L 3.5-5.1 tmso=386) CHLORIDE (BEAKER) (test 104 meq/L 98-107 ddvp=675) CO2 (BEAKER) (test 26 meq/L 22-29 hgfq=227) BLOOD UREA NITROGEN 8 mg/dL 7-21 (BEAKER) (test uibf=547) CREATININE (BEAKER) (test 0.85 mg/dL 0.57-1.25 yvnt=238) GLUCOSE RANDOM (BEAKER) 167 mg/dL 70-105 (test evrm=915) CALCIUM (BEAKER) (test 8.3 mg/dL 8.4-10.2 cuhq=055) EGFR (BEAKER) (test 94 mL/min/1.73 sq m ESTIMATED GFR IS NOT jomw=4683) ACCURATE CREATININE CLEARANCE IN PREDICTING GLOMERULAR FILTRATION RATE. ESTIMATED GFR IS NOT APPLICABLE FOR DIALYSIS PATIENTS. POCT-GLUCOSE [id number] 23:08:00 Test Item Value Reference Range Comments POC-GLUCOSE METER (BEAKER) 284 mg/dL 70-110 TESTED AT [facility] [address] [facility] (test ldih=7541) [facility] [address] POCT-GLUCOSE [id number] 20:20:00 Test Item Value Reference Range Comments POC-GLUCOSE METER (BEAKER) 185 mg/dL 70-110 TESTED AT [facility] [address] [facility] (test deph=2146) [facility] [address] BLOOD GAS, [id number] 20:05:00 Test Item Value Reference Range Comments PH ARTERIAL (BEAKER) (test dbka=218) 7.48 7.35-7.45 PCO2 ARTERIAL (BEAKER) (test ibdk=067) 38 mmHg 35-45 PO2 ARTERIAL (BEAKER) (test mtbz=367) 83 mmHg 80-90 O2 SATURATION ARTERIAL (BEAKER) (test kald=413) 97.1 % 96.0-97.0 HCO3 ARTERIAL (BEAKER) (test clac=411) 28 mmol/L 21-29 BASE EXCESS ARTERIAL (BEAKER) (test dnfj=467) 4.0 mmol/L -2.0-3.0 PATIENT TEMPERATURE (BEAKER) (test awal=3060) 36.3 C FIO2 (BEAKER) (test dguh=1075) 21.0 % HEPATITIS B SURFACE [id number] 19:10:00 Test Item Value Reference Range Comments HEPATITIS B SURFACE ANTIBODY (BEAKER) (test < mIU/mL <8.0 phey=998) VITAMIN D, [id number] 19:08:00 Test Item Value Reference Range Comments VITAMIN D 25-OH (BEAKER) (test tiyr=5309) 6.6 ng/mL 6.6-49.9 Effective 07/04/2017: Reference Range ChangeNew: 6.6-49.9 ng/mL Previous: 13.0 -47.8 ng/mLRecommended Vitamin D Target Range: 30.0-40.0 ng/mLCARCINOEMBRYONIC ANTIGEN (CEA)2018-12-19 19:07:00 Test Item Value Reference Range Comments CARCINOEMBRYONIC ANTIGEN (BEAKER) (test jtlk=769) 1.9 ng/mL 0.0-5.0 HEPATITIS B SURFACE [id number] 19:07:00 Test Item Value Reference Range Comments HEPATITIS B SURFACE ANTIGEN (2) (BEAKER) (test Nonreactive Nonreactive tbgh=2389) HEPATITIS B CORE ANTIBODY, [id number] 19:07:00 Test Item Value Reference Range Comments HEPATITIS B CORE IGM ANTIBODY (BEAKER) (test Nonreactive Nonreactive vryp=072) HEPATITIS A ANTIBODY, [id number] 19:07:00 Test Item Value Reference Range Comments HEPATITIS A IGM ANTIBODY (BEAKER) (test Nonreactive Nonreactive tpkg=664) [id number] 18:59:00 Test Item Value Reference Range Comments PROSTATE SPECIFIC ANTIGEN (BEAKER) (test pzlz=807) 0.5 ng/mL 0.0-4.0 HIV-1 ANTIGEN WITH HIV-1/2 [id number] 18:59:00 Test Item Value Reference Range Comments HIV-1 ANTIGEN WITH HIV 1\T\2 ANTIBODY (2) Nonreactive Nonreactive (BEAKER) (test rvdw=8080) [id number] 18:58:00 Test Item Value Reference Range Comments TRANSFERRIN (BEAKER) (test mvog=380) 288 mg/dL 174-382 [id number] 18:22:00 Test Item Value Reference Range Comments THYROID STIMULATING HORMONE (BEAKER) (test 5.24 uIU/mL 0.35-4.94 tzcf=042) [id number] 18:19:00 Test Item Value Reference Range Comments T4 TOTAL (BEAKER) (test ueja=515) 6.9 ug/dL 4.9-11.7 URIC [id number] 18:01:00 Test Item Value Reference Range Comments URIC ACID (BEAKER) (test hago=083) 4.7 mg/dL 2.6-7.2 [id number] 18:01:00 Test Item Value Reference Range Comments MAGNESIUM (BEAKER) (test mvrj=272) 1.7 mg/dL 1.6-2.6 [id number] 18:01:00 Test Item Value Reference Range Comments PHOSPHORUS (BEAKER) (test svdy=800) 2.6 mg/dL 2.3-4.7 LIPID [id number] 18:01:00 Test Item Value Reference Range Comments TRIGLYCERIDES (BEAKER) (test cyfw=319) 47 mg/dL CHOLESTEROL (BEAKER) (test wvxe=805) 104 mg/dL HDL CHOLESTEROL (BEAKER) (test aeej=051) 33 mg/dL LDL CHOLESTEROL CALCULATED (BEAKER) (test 62 mg/dL sbhr=970) Triglyceride Reference Range: Low Risk <150 Borderline [...] Range Comments GAMMA GLUTAMYL TRANSFERASE (BEAKER) (test qnjh=512) 24 U/L 9-64 [id number] 18:00:00 Test Item Value Reference Range Comments ETHANOL (BEAKER) (test vdxe=091) < mg/dL <=10 [id number] 12:48:00 Test Item Value Reference Range Comments D-DIMER QUANTITATIVE (BEAKER) (test kfzp=507) 6.75 MG/L FEU <0.50 Intended Use: The D-Dimer Assay can be used to aid in the diagnosis of Deep Vein Thrombosis (DVT) and Pulmonary Embolism Disease (PED).In patients with low pre-test probability, various studies concerning STA Liatest D-dimer test have reported that with a cutoff value of 0.50 MG/L FEU, the Negative Predictive Value (NPV) regarding the exclusion of thrombosis is within 95-100% range.[id number] 12:41:00 Test Item Value Reference Range Comments PARTIAL THROMBOPLASTIN TIME (BEAKER) (test 35.4 seconds 22.5-36.0 mfag=980) PROTHROMBIN [id number] 12:39:00 Test Item Value Reference Range Comments PROTIME (BEAKER) (test jkmq=765) 14.9 seconds 11.7-14.7 INR (BEAKER) (test yqdj=441) 1.2 <=5.9 RECOMMENDED COUMADIN/WARFARIN INR THERAPY RANGESSTANDARD DOSE: 2.0 - 3.0 Includes: PROPHYLAXIS forvenous thrombosis, systemic embolization; TREATMENT for venous thrombosis and/or pulmonary embolus.HIGH RISK: Target INR is 2.5-3.5 for patients with mechanical heart valves.POCT-GLUCOSE [id number] 11:36:00 Test Item Value Reference Range Comments POC-GLUCOSE METER (BEAKER) 267 mg/dL 70-110 TESTED AT [place] [id number] [facility] (test hrfu=3188) [place] [id number] POCT-GLUCOSE [id number] 10:02:00 Test Item Value Reference Range Comments POC-GLUCOSE METER (BEAKER) 249 mg/dL 70-110 TESTED AT [address] (test lulh=8690) [place] [id number] MISCELLANEOUS LAB [id number] 07:59:00 Test Item Value Reference Range Comments SCAN RESULT (test lkdp=[id number]) POCT-GLUCOSE [id number] 07:50:00 Test Item Value Reference Range Comments POC-GLUCOSE METER (BEAKER) 228 mg/dL 70-110 TESTED AT [address] (test oeub=6310) [place] [id number] HEPATIC FUNCTION [id number] 06:21:00 Test Item Value Reference Range Comments TOTAL PROTEIN (BEAKER) (test yrbm=981) 6.8 gm/dL 6.0-8.3 ALBUMIN (BEAKER) (test kxkw=2838) 2.8 g/dL 3.5-5.0 BILIRUBIN TOTAL (BEAKER) (test roek=145) 0.9 mg/dL 0.2-1.2 BILIRUBIN DIRECT (BEAKER) (test drsf=112) 0.5 mg/dL 0.1-0.5 ALKALINE PHOSPHATASE (BEAKER) (test wcwn=632) 117 U/L 40-150 AST (SGOT) (BEAKER) (test lhpu=136) 47 U/L 5-34 ALT (SGPT) (BEAKER) (test nvta=788) 18 U/L 6-55 BASIC METABOLIC [id number] 06:21:00 Test Item Value Reference Range Comments SODIUM (BEAKER) (test 136 meq/L 136-145 ibwj=822) POTASSIUM (BEAKER) (test 3.8 meq/L 3.5-5.1 fqxt=524) CHLORIDE (BEAKER) (test 104 meq/L 98-107 kxxu=402) CO2 (BEAKER) (test 26 meq/L 22-29 glbq=415) BLOOD UREA NITROGEN 7 mg/dL 7-21 (BEAKER) (test lkwf=747) CREATININE (BEAKER) (test 0.84 mg/dL 0.57-1.25 qhlt=938) GLUCOSE RANDOM (BEAKER) 152 mg/dL 70-105 (test yvro=911) CALCIUM (BEAKER) (test 8.4 mg/dL 8.4-10.2 upez=982) EGFR (BEAKER) (test 95 mL/min/1.73 sq m ESTIMATED GFR IS NOT jefl=5045) ACCURATE CREATININE CLEARANCE IN PREDICTING GLOMERULAR FILTRATION RATE. ESTIMATED GFR IS NOT APPLICABLE FOR DIALYSIS PATIENTS. CBC (HEMOGRAM ONLY)2018-12-19 06:02:00 Test Item Value Reference Range Comments WHITE BLOOD CELL COUNT (BEAKER) (test fpnm=486) 5.3 K/ L 3.5-10.5 RED BLOOD CELL COUNT (BEAKER) (test lrxc=130) 4.18 M/ L 4.63-6.08 HEMOGLOBIN (BEAKER) (test wyzd=372) 8.2 GM/DL 13.7-17.5 HEMATOCRIT (BEAKER) (test bbbx=979) 28.9 % 40.1-51.0 MEAN CORPUSCULAR VOLUME (BEAKER) (test ylpj=327) 69.1 fL 79.0-92.2 MEAN CORPUSCULAR HEMOGLOBIN (BEAKER) (test 19.6 pg 25.7-32.2 wtsb=536) MEAN CORPUSCULAR HEMOGLOBIN CONC (BEAKER) (test 28.4 GM/DL 32.3-36.5 igpx=225) RED CELL DISTRIBUTION WIDTH (BEAKER) (test 21.5 % 11.6-14.4 ufhs=655) PLATELET COUNT (BEAKER) (test utjy=319) 130 K/CU MM 150-450 MEAN PLATELET VOLUME (BEAKER) (test pscs=448) 9.9 fL 9.4-12.4 NUCLEATED RED BLOOD CELLS (BEAKER) (test 0 /100 WBC 0-0 adai=682) POCT-GLUCOSE [id number] 21:21:00 Test Item Value Reference Range Comments POC-GLUCOSE METER (BEAKER) 213 mg/dL 70-110 TESTED AT [facility] [address] (test ldhc=3197) [place] [address] MR, ABDOMEN, [id number] 19:09:00Addendum BeginsREPORT STATUS:A Commissioned Sales Associate error in the third 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 It should read: Questionable small nonocclusive thrombus in the high SUPERIOR mesenteric vein. Signed: Roe Solorzano MDReport Verified Date/Time: 12/18/2018 19:09:20 Reading Location: [facility] C013 CT Body Reading RoomAddendum EndsFINAL REPORT TECHNIQUE: [...] MDReport Verified Date/Time: 12/17/2018 10:57:37 Reading Location: [facility] C013Y CT Body Reading Room POCT-GLUCOSE [id number] 17:47:00 Test Item Value Reference Range Comments POC-GLUCOSE METER (BEAKER) 199 mg/dL 70-110 TESTED AT [address] (test lato=6302) [facility] [address] POCT-GLUCOSE [id number] 12:02:00 Test Item Value Reference Range Comments POC-GLUCOSE METER (BEAKER) 301 mg/dL 70-110 TESTED AT [address] (test oyfx=0780) [place] [id number] HEPATITIS C PCR, [id number] 09:48:00 Test Item Value Reference Range Comments HCV NUMERIC RESULT (BEAKER) (test curr=6549) [id number] IU/mL <15 This test uses a Real-Time Polymerase Chain Reaction (RT-PCR) methodology and was performed using MAJOR Ampliprep/MAJOR TaqMan HCV test kit version 2.0 ( [employer]).Reportable range for this assay is 15 - 100,000, 000 IU per mL (1.18 - 8.00 Log IU/mL).POCT-GLUCOSE [id number] 09:18:00 Test Item Value Reference Range Comments POC-GLUCOSE METER (BEAKER) 284 mg/dL 70-110 TESTED AT [address] (test axij=2776) [facility] [address] HEPATIC FUNCTION [id number] 07:08:00 Test Item Value Reference Range Comments TOTAL PROTEIN (BEAKER) (test nqza=148) 6.5 gm/dL 6.0-8.3 ALBUMIN (BEAKER) (test vybo=5269) 2.7 g/dL 3.5-5.0 BILIRUBIN TOTAL (BEAKER) (test jmkp=336) 0.9 mg/dL 0.2-1.2 BILIRUBIN DIRECT (BEAKER) (test hkow=893) 0.5 mg/dL 0.1-0.5 ALKALINE PHOSPHATASE (BEAKER) (test embe=698) 103 U/L 40-150 AST (SGOT) (BEAKER) (test ozry=207) 40 U/L 5-34 ALT (SGPT) (BEAKER) (test uzid=632) 16 U/L 6-55 BASIC METABOLIC [id number] 07:08:00 Test Item Value Reference Range Comments SODIUM (BEAKER) (test 135 meq/L 136-145 jwmi=985) POTASSIUM (BEAKER) (test 4.0 meq/L 3.5-5.1 wglq=185) CHLORIDE (BEAKER) (test 105 meq/L 98-107 xwhd=264) CO2 (BEAKER) (test 25 meq/L 22-29 cbkh=679) BLOOD UREA NITROGEN 9 mg/dL 7-21 (BEAKER) (test lcmv=182) CREATININE (BEAKER) (test 0.88 mg/dL 0.57-1.25 zbki=857) GLUCOSE RANDOM (BEAKER) 175 mg/dL 70-105 (test cqrf=989) CALCIUM (BEAKER) (test 8.2 mg/dL 8.4-10.2 wehz=522) EGFR (BEAKER) (test 90 mL/min/1.73 sq m ESTIMATED GFR IS NOT qnrn=9345) ACCURATE CREATININE CLEARANCE IN PREDICTING GLOMERULAR FILTRATION RATE. ESTIMATED GFR IS NOT APPLICABLE FOR DIALYSIS PATIENTS. CBC (HEMOGRAM ONLY)2018-12-18 06:39:00 Test Item Value Reference Range Comments WHITE BLOOD CELL COUNT (BEAKER) (test qlzz=228) 6.9 K/ L 3.5-10.5 RED BLOOD CELL COUNT (BEAKER) (test khkz=724) 4.15 M/ L 4.63-6.08 HEMOGLOBIN (BEAKER) (test dyjw=125) 8.0 GM/DL 13.7-17.5 HEMATOCRIT (BEAKER) (test aksp=406) 28.7 % 40.1-51.0 MEAN CORPUSCULAR VOLUME (BEAKER) (test ehol=852) 69.2 fL 79.0-92.2 MEAN CORPUSCULAR HEMOGLOBIN (BEAKER) (test 19.3 pg 25.7-32.2 gcrw=189) MEAN CORPUSCULAR HEMOGLOBIN CONC (BEAKER) (test 27.9 GM/DL 32.3-36.5 ebpp=260) RED CELL DISTRIBUTION WIDTH (BEAKER) (test 21.3 % 11.6-14.4 tydf=207) PLATELET COUNT (BEAKER) (test geho=984) 122 K/CU MM 150-450 NUCLEATED RED BLOOD CELLS (BEAKER) (test 0 /100 WBC 0-0 vccn=919) POCT-GLUCOSE [id number] 22:48:00 Test Item Value Reference Range Comments POC-GLUCOSE METER (BEAKER) 237 mg/dL 70-110 TESTED AT [facility] [address] [facility] (test gili=8442) [facility] [address] ANTI-NUCLEAR ANTIBODY (WILLOW)2018-12-17 11:52:00 Test Item Value Reference Range Comments ANTI-NUCLEAR ANTIBODY (WILLOW) (BEAKER) (test Positive Negative hjpo=750) Test performed by IFA method.WILLOW TITER AND [id number] 11:52:00 Test Item Value Reference Range Comments WILLOW TITER (BEAKER) (test qbpg=3343) :160 WILLOW PATTERN (BEAKER) (test gssc=4625) Speckled [id number] 05:45:00 Test Item Value Reference Range Comments MAGNESIUM (BEAKER) (test 2.1 mg/dL 1.6-2.6 Specimen slightly hemolyzed udys=948) [id number] 05:45:00 Test Item Value Reference Range Comments PHOSPHORUS (BEAKER) (test 3.0 mg/dL 2.3-4.7 Specimen slightly hemolyzed riek=321) BASIC METABOLIC [id number] 05:45:00 Test Item Value Reference Range Comments SODIUM (BEAKER) (test 136 meq/L 136-145 unyp=810) POTASSIUM (BEAKER) (test 4.3 meq/L 3.5-5.1 Specimen slightly tbxl=390) hemolyzed CHLORIDE (BEAKER) (test 106 meq/L 98-107 wrya=084) CO2 (BEAKER) (test 25 meq/L 22-29 mumk=063) BLOOD UREA NITROGEN 15 mg/dL 7-21 (BEAKER) (test mqfq=923) CREATININE (BEAKER) (test 1.06 mg/dL 0.57-1.25 Specimen slightly mpgc=565) hemolyzed GLUCOSE RANDOM (BEAKER) 222 mg/dL 70-105 (test rzhd=092) CALCIUM (BEAKER) (test 8.1 mg/dL 8.4-10.2 mkae=076) EGFR (BEAKER) (test 73 mL/min/1.73 sq m ESTIMATED GFR IS NOT eepl=7732) ACCURATE CREATININE CLEARANCE IN PREDICTING GLOMERULAR FILTRATION RATE. ESTIMATED GFR IS NOT APPLICABLE FOR DIALYSIS PATIENTS. HEPATIC FUNCTION [id number] 05:45:00 Test Item Value Reference Range Comments TOTAL PROTEIN (BEAKER) (test 6.6 gm/dL 6.0-8.3 Specimen slightly hemolyzed snwy=508) ALBUMIN (BEAKER) (test 2.6 g/dL 3.5-5.0 Specimen slightly hemolyzed fufq=3246) BILIRUBIN TOTAL (BEAKER) (test 0.9 mg/dL 0.2-1.2 Specimen slightly hemolyzed rfwm=116) BILIRUBIN DIRECT (BEAKER) (test 0.5 mg/dL 0.1-0.5 Specimen slightly hemolyzed vbev=879) ALKALINE PHOSPHATASE (BEAKER) 109 U/L 40-150 (test iogc=758) AST (SGOT) (BEAKER) (test 53 U/L 5-34 Specimen slightly hemolyzed zvqb=634) ALT (SGPT) (BEAKER) (test 21 U/L 6-55 Specimen slightly hemolyzed exue=925) CBC W/PLT COUNT & AUTO [id number] 04:48:00 Test Item Value Reference Range Comments WHITE BLOOD CELL COUNT 8.1 K/ L 3.5-10.5 (BEAKER) (test uqnq=368) RED BLOOD CELL COUNT (BEAKER) 4.33 M/ L 4.63-6.08 (test ooge=460) HEMOGLOBIN (BEAKER) (test 8.3 GM/DL 13.7-17.5 uynb=793) HEMATOCRIT (BEAKER) (test 29.9 % 40.1-51.0 nzgn=882) MEAN CORPUSCULAR VOLUME 69.1 fL 79.0-92.2 (BEAKER) (test mgac=277) MEAN CORPUSCULAR HEMOGLOBIN 19.2 pg 25.7-32.2 (BEAKER) (test daph=424) MEAN CORPUSCULAR HEMOGLOBIN 27.8 GM/DL 32.3-36.5 CONC (BEAKER) (test vpax=546) RED CELL DISTRIBUTION WIDTH 21.1 % 11.6-14.4 (BEAKER) (test teue=060) PLATELET COUNT (BEAKER) (test 141 K/CU MM 150-450 yzeq=487) MEAN PLATELET VOLUME (BEAKER) fL 9.4-12.4 Unable to report due to (test ptlf=898) abnormal Platelet population distribution. NUCLEATED RED BLOOD CELLS 0 /100 WBC 0-0 (BEAKER) (test upni=084) NEUTROPHILS RELATIVE PERCENT 70 % (BEAKER) (test cnml=204) LYMPHOCYTES RELATIVE PERCENT 15 % (BEAKER) (test kbsd=291) MONOCYTES RELATIVE PERCENT 9 % (BEAKER) (test tuij=670) EOSINOPHILS RELATIVE PERCENT 6 % (BEAKER) (test agha=825) BASOPHILS RELATIVE PERCENT 1 % (BEAKER) (test mrmc=076) NEUTROPHILS ABSOLUTE COUNT 5.60 K/ L 1.78-5.38 (BEAKER) (test zriz=502) LYMPHOCYTES ABSOLUTE COUNT 1.18 K/ L 1.32-3.57 (BEAKER) (test eljg=411) MONOCYTES ABSOLUTE COUNT 0.72 K/ L 0.30-0.82 (BEAKER) (test pzpr=485) EOSINOPHILS ABSOLUTE COUNT 0.46 K/ L 0.04-0.54 (BEAKER) (test eevg=182) BASOPHILS ABSOLUTE COUNT 0.08 K/ L 0.01-0.08 (BEAKER) (test xgfc=546) IMMATURE GRANULOCYTES-RELATIVE 0 % 0-1 PERCENT (BEAKER) (test cain=7004) HEPATITIS C [id number] 21:49:00 Test Item Value Reference Range Comments HEPATITIS C ANTIBODY (BEAKER) (test yxge=484) Reactive Nonreactive HEPATITIS A ANTIBODY, [id number] 21:49:00 Test Item Value Reference Range Comments HEPATITIS A IGG ANTIBODY (BEAKER) (test eovq=3620) Reactive Nonreactive ALPHA FETOPROTEIN (AFP), TUMOR [id number] 21:48:00 Test Item Value Reference Range Comments ALPHA-FETOPROTEIN (BEAKER) (test kcvi=8401) 5.3 ng/mL <10.0 HEPATITIS B CORE ANTIBODY, [id number] 21:48:00 Test Item Value Reference Range Comments HEPATITIS B CORE TOTAL ANTIBODY (BEAKER) (test Nonreactive Nonreactive mwif=342) [id number] 21:13:00 Test Item Value Reference Range Comments FERRITIN (BEAKER) (test icei=341) 17 ng/mL 5-275 [id number] 20:56:00 Test Item Value Reference Range Comments ALPHA-1 ANTITRYPSIN (BEAKER) 137.60 mg/dL 90.00-200.00 Specimen slightly hemolyzed (test xefv=500) IRON, TIBC, % SAT. (WITHOUT FERRITIN)2018-12-16 20:55:00 Test Item Value Reference Range Comments IRON (BEAKER) (test emed=583) 56.0 ug/dL 40.0-160.0 TOTAL IRON BINDING CAPACITY (BEAKER) (test 360 ug/dL 250-450 igny=419) IRON % SATURATION (2) (BEAKER) (test bgqc=3032) 16 % 20-55 [id number] 20:52:00 Test Item Value Reference Range Comments ETHANOL (BEAKER) (test cbmr=489) < mg/dL <=10 HEMOGLOBIN AND [id number] 20:37:00 Test Item Value Reference Range Comments HEMOGLOBIN (BEAKER) (test ufmf=235) 9.2 GM/DL 13.7-17.5 HEMATOCRIT (BEAKER) (test dxsh=208) 32.6 % 40.1-51.0 U/S, ABDOMINAL, WITH [id number] 18:22:00Reason for exam:->liver cirrhosis, variceal bleed, please [...] MDReport Verified Date/Time: 12/16/2018 18:22:50 Reading Location: [address] Ultrasound Reading Room [facility] METABOLIC [id number] 12:25:00 Test Item Value Reference Range Comments SODIUM (BEAKER) (test 135 meq/L 136-145 vmlp=503) POTASSIUM (BEAKER) (test 4.7 meq/L 3.5-5.1 pmig=882) CHLORIDE (BEAKER) (test 105 meq/L 98-107 aagd=184) CO2 (BEAKER) (test 25 meq/L 22-29 bpcd=109) BLOOD UREA NITROGEN 16 mg/dL 7-21 (BEAKER) (test nwcc=369) CREATININE (BEAKER) (test 1.01 mg/dL 0.57-1.25 iqtl=056) GLUCOSE RANDOM (BEAKER) 162 mg/dL 70-105 (test knww=217) CALCIUM (BEAKER) (test 8.1 mg/dL 8.4-10.2 atos=381) EGFR (BEAKER) (test 77 mL/min/1.73 sq m ESTIMATED GFR IS NOT kcir=7406) ACCURATE CREATININE CLEARANCE IN PREDICTING GLOMERULAR FILTRATION RATE. ESTIMATED GFR IS NOT APPLICABLE FOR DIALYSIS PATIENTS. HEMOGLOBIN AND [id number] 12:06:00 Test Item Value Reference Range Comments HEMOGLOBIN (BEAKER) (test griy=485) 8.6 GM/DL 13.7-17.5 HEMATOCRIT (BEAKER) (test qzeq=098) 31.4 % 40.1-51.0 HEMOGLOBIN AND [id number] 08:52:00 Test Item Value Reference Range Comments HEMOGLOBIN (BEAKER) (test qzzd=541) 8.7 GM/DL 13.7-17.5 HEMATOCRIT (BEAKER) (test tfpf=552) 30.9 % 40.1-51.0 CALCIUM, [id number] 05:54:00 Test Item Value Reference Range Comments CALCIUM IONIZED (BEAKER) (test lmpm=746) 1.08 mmol/L 1.12-1.27 PH, BLOOD (BEAKER) (test ffbs=4619) 7.34 [id number] 05:50:00 Test Item Value Reference Range Comments PHOSPHORUS (BEAKER) (test ktey=421) 3.4 mg/dL 2.3-4.7 [id number] 05:50:00 Test Item Value Reference Range Comments MAGNESIUM (BEAKER) (test kjvh=106) 1.6 mg/dL 1.6-2.6 BASIC METABOLIC [id number] 05:50:00 Test Item Value Reference Range Comments SODIUM (BEAKER) (test 138 meq/L 136-145 hoku=847) POTASSIUM (BEAKER) (test 5.4 meq/L 3.5-5.1 nyfm=551) CHLORIDE (BEAKER) (test 108 meq/L 98-107 vusy=004) CO2 (BEAKER) (test 22 meq/L 22-29 gduo=441) BLOOD UREA NITROGEN 14 mg/dL 7-21 (BEAKER) (test qjfp=314) CREATININE (BEAKER) (test 1.00 mg/dL 0.57-1.25 jyen=733) GLUCOSE RANDOM (BEAKER) 144 mg/dL 70-105 (test nwia=565) CALCIUM (BEAKER) (test 8.1 mg/dL 8.4-10.2 gkgv=768) EGFR (BEAKER) (test 78 mL/min/1.73 sq m ESTIMATED GFR IS NOT zlub=3759) ACCURATE CREATININE CLEARANCE IN PREDICTING GLOMERULAR FILTRATION RATE. ESTIMATED GFR IS NOT APPLICABLE FOR DIALYSIS PATIENTS. CBC W/PLT COUNT & AUTO [id number] 05:44:00 Test Item Value Reference Range Comments WHITE BLOOD CELL COUNT 7.2 K/ L 3.5-10.5 (BEAKER) (test qbts=106) RED BLOOD CELL COUNT (BEAKER) 4.48 M/ L 4.63-6.08 (test yqpz=352) HEMOGLOBIN (BEAKER) (test 8.7 GM/DL 13.7-17.5 psxq=304) HEMATOCRIT (BEAKER) (test 31.4 % 40.1-51.0 ehpa=244) MEAN CORPUSCULAR VOLUME 70.1 fL 79.0-92.2 (BEAKER) (test ekza=681) MEAN CORPUSCULAR HEMOGLOBIN 19.4 pg 25.7-32.2 (BEAKER) (test fbpo=872) MEAN CORPUSCULAR HEMOGLOBIN 27.7 GM/DL 32.3-36.5 CONC (BEAKER) (test rdqs=440) RED CELL DISTRIBUTION WIDTH 21.0 % 11.6-14.4 (BEAKER) (test aqbk=523) PLATELET COUNT (BEAKER) (test 135 K/CU MM 150-450 tjrc=754) MEAN PLATELET VOLUME (BEAKER) fL 9.4-12.4 Unable to report due to (test lrok=137) abnormal Platelet population distribution. NUCLEATED RED BLOOD CELLS 0 /100 WBC 0-0 (BEAKER) (test cyxa=815) NEUTROPHILS RELATIVE PERCENT 72 % (BEAKER) (test anvy=819) LYMPHOCYTES RELATIVE PERCENT 12 % (BEAKER) (test oyav=937) MONOCYTES RELATIVE PERCENT 11 % (BEAKER) (test tclg=978) EOSINOPHILS RELATIVE PERCENT 4 % (BEAKER) (test ozac=985) BASOPHILS RELATIVE PERCENT 1 % (BEAKER) (test curt=394) NEUTROPHILS ABSOLUTE COUNT 5.15 K/ L 1.78-5.38 (BEAKER) (test ulgn=089) LYMPHOCYTES ABSOLUTE COUNT 0.89 K/ L 1.32-3.57 (BEAKER) (test ajst=326) MONOCYTES ABSOLUTE COUNT 0.76 K/ L 0.30-0.82 (BEAKER) (test hnhf=028) EOSINOPHILS ABSOLUTE COUNT 0.29 K/ L 0.04-0.54 (BEAKER) (test abcd=907) BASOPHILS ABSOLUTE COUNT 0.06 K/ L 0.01-0.08 (BEAKER) (test ldqd=473) IMMATURE GRANULOCYTES-RELATIVE 0 % 0-1 PERCENT (BEAKER) (test scfs=9254) HEMOGLOBIN AND [id number] 00:02:00 Test Item Value Reference Range Comments HEMOGLOBIN (BEAKER) (test eenm=169) 7.8 GM/DL 13.7-17.5 HEMATOCRIT (BEAKER) (test jwxq=960) 28.0 % 40.1-51.0 POCT-GLUCOSE [id number] 23:24:00 Test Item Value Reference Range Comments POC-GLUCOSE METER (BEAKER) 168 mg/dL 70-110 TESTED AT [facility] [address] [facility] (test mrfb=2637) [facility] [address] RAD, CHEST, 1 VIEW, NON [id number] 23:07:00Reason for exam:->NG tube placementShould this be [...] MDReport Verified Date/Time: 12/15/2018 23:07:08 Reading Location: [facility] C013Y CT Body Reading Room HEMOGLOBIN AND [id number] 20:12:00 Test Item Value Reference Range Comments HEMOGLOBIN (BEAKER) (test tpsp=706) 7.4 GM/DL 13.7-17.5 HEMATOCRIT (BEAKER) (test faeb=486) 26.7 % 40.1-51.0 RAD, CHEST, 1 VIEW, NON [id number] 18:43:00Reason for exam:->s/p intubationShould this be performed [...] MDReport Verified Date/Time: 12/15/2018 18:43:24 Reading Location: [address] Consult Reading Room Electronically signed by: JORGE MTZ M.D. on 06:43 PMBASIC METABOLIC [id number] 14:38:00 Test Item Value Reference Range Comments SODIUM (BEAKER) (test 137 meq/L 136-145 vsjp=676) POTASSIUM (BEAKER) (test 4.8 meq/L 3.5-5.1 Specimen slightly uamo=355) hemolyzed CHLORIDE (BEAKER) (test 105 meq/L 98-107 wjxb=221) CO2 (BEAKER) (test 25 meq/L 22-29 vuds=371) BLOOD UREA NITROGEN 11 mg/dL 7-21 (BEAKER) (test vzok=004) CREATININE (BEAKER) (test 0.84 mg/dL 0.57-1.25 Specimen slightly bkle=073) hemolyzed GLUCOSE RANDOM (BEAKER) 114 mg/dL 70-105 (test qcdk=348) CALCIUM (BEAKER) (test 8.5 mg/dL 8.4-10.2 fjnj=107) EGFR (BEAKER) (test 95 mL/min/1.73 sq m ESTIMATED GFR IS NOT wrmh=3296) ACCURATE CREATININE CLEARANCE IN PREDICTING GLOMERULAR FILTRATION RATE. ESTIMATED GFR IS NOT APPLICABLE FOR DIALYSIS PATIENTS. Specimen slightly ictericCOMPREHENSIVE METABOLIC [id number] 14:38:00 Test Item Value Reference Range Comments TOTAL PROTEIN (BEAKER) 7.2 gm/dL 6.0-8.3 Specimen slightly (test qfjj=287) hemolyzed ALBUMIN (BEAKER) (test 2.9 g/dL 3.5-5.0 Specimen slightly rvxi=1296) hemolyzed ALKALINE PHOSPHATASE 125 U/L 40-150 (BEAKER) (test lvlj=091) BILIRUBIN TOTAL (BEAKER) 2.5 mg/dL 0.2-1.2 Specimen slightly (test mbmr=336) hemolyzed SODIUM (BEAKER) (test 137 meq/L 136-145 prvj=296) POTASSIUM (BEAKER) (test 4.8 meq/L 3.5-5.1 Specimen slightly iyuu=099) hemolyzed CHLORIDE (BEAKER) (test 105 meq/L 98-107 pbak=808) CO2 (BEAKER) (test 25 meq/L 22-29 cvmv=526) BLOOD UREA NITROGEN 11 mg/dL 7-21 (BEAKER) (test hjne=744) CREATININE (BEAKER) (test 0.84 mg/dL 0.57-1.25 Specimen slightly nvlg=150) hemolyzed GLUCOSE RANDOM (BEAKER) 114 mg/dL 70-105 (test pdqo=366) CALCIUM (BEAKER) (test 8.5 mg/dL 8.4-10.2 jges=055) AST (SGOT) (BEAKER) (test 56 U/L 5-34 Specimen slightly cixk=109) hemolyzed ALT (SGPT) (BEAKER) (test 21 U/L 6-55 Specimen slightly nvcz=918) hemolyzed EGFR (BEAKER) (test 95 mL/min/1.73 sq m ESTIMATED GFR IS NOT epro=3122) ACCURATE CREATININE CLEARANCE IN PREDICTING GLOMERULAR FILTRATION RATE. ESTIMATED GFR IS NOT APPLICABLE FOR DIALYSIS PATIENTS. Specimen slightly ictericCBC (HEMOGRAM ONLY)2018-12-15 14:35:00 Test Item Value Reference Range Comments WHITE BLOOD CELL COUNT (BEAKER) (test zfxe=462) 5.6 K/ L 3.5-10.5 RED BLOOD CELL COUNT (BEAKER) (test apve=492) 4.43 M/ L 4.63-6.08 HEMOGLOBIN (BEAKER) (test rlrw=198) 8.5 GM/DL 13.7-17.5 HEMATOCRIT (BEAKER) (test fhfa=266) 30.7 % 40.1-51.0 MEAN CORPUSCULAR VOLUME (BEAKER) (test prre=893) 69.3 fL 79.0-92.2 MEAN CORPUSCULAR HEMOGLOBIN (BEAKER) (test 19.2 pg 25.7-32.2 jgtk=389) MEAN CORPUSCULAR HEMOGLOBIN CONC (BEAKER) (test 27.7 GM/DL 32.3-36.5 iovo=366) RED CELL DISTRIBUTION WIDTH (BEAKER) (test 20.9 % 11.6-14.4 ygfy=921) PLATELET COUNT (BEAKER) (test ynay=442) 150 K/CU MM 150-450 NUCLEATED RED BLOOD CELLS (BEAKER) (test 0 /100 WBC 0-0 aflx=912) LACTIC ACID, [id number] 14:34:00 Test Item Value Reference Range Comments LACTATE BLOOD VENOUS (2) (BEAKER) (test 1.4 mmol/L 0.5-2.2 tffl=6414) [id number] 14:34:00 Test Item Value Reference Range Comments FIBRINOGEN LEVEL (BEAKER) (test ayns=184) 164 mg/dl 225-434 PROTHROMBIN [id number] 14:29:00 Test Item Value Reference Range Comments PROTIME (BEAKER) (test yrlv=112) 17.0 seconds 11.7-14.7 INR (BEAKER) (test dymv=374) 1.4 <=5.9 RECOMMENDED COUMADIN/WARFARIN INR THERAPY RANGESSTANDARD DOSE: 2.0 - 3.0 Includes: PROPHYLAXIS forvenous thrombosis, systemic embolization; TREATMENT for venous thrombosis and/or pulmonary embolus.HIGH RISK: Target INR is 2.5-3.5 for patients with mechanical heart valves.[id number] 14:29:00 Test Item Value Reference Range Comments PARTIAL THROMBOPLASTIN TIME (BEAKER) (test 35.0 seconds 22.5-36.0 xfsj=603) [id number] 14:29:00 Test Item Value Reference Range Comments PARTIAL THROMBOPLASTIN TIME (BEAKER) (test 38.1 seconds 22.5-36.0 ummb=191) PROTHROMBIN TIME/[id number] 14:28:00 Test Item Value Reference Range Comments PROTIME (BEAKER) (test ehvj=613) 15.4 seconds 11.7-14.7 INR (BEAKER) (test tnym=317) 1.2 <=5.9 RECOMMENDED COUMADIN/WARFARIN INR THERAPY RANGESSTANDARD DOSE: 2.0 - 3.0 Includes: PROPHYLAXIS forvenous thrombosis, systemic embolization; TREATMENT for venous thrombosis and/or pulmonary embolus.HIGH RISK: Target INR is 2.5-3.5 for patients with mechanical heart valves.HEMOGLOBIN AND [id number] 14 :21:00 Test Item Value Reference Range Comments HEMOGLOBIN (BEAKER) (test gytt=365) 8.5 GM/DL 13.7-17.5 HEMATOCRIT (BEAKER) (test nohq=165) 30.7 % 40.1-51.0
--- OUTSIDE RECORDS SUMMARY | 2019-10-15 16:41 | XMS REPORT ---
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 Active state Problem Noncompliance of patient with Z91.11 Active dietary regimen Problem Hepatocellular carcinoma C22.0 Active Problem Secondary esophageal varices with I85.11 Active bleeding Problem Coronary artery disease involving I25.10 Active [place] coronary artery of [place] heart, angina presence unspecified Problem Alcohol abuse F10.10 Active Problem Type 2 diabetes mellitus with 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
--- OUTSIDE RECORDS SUMMARY | 2019-10-15 16:41 | XMS REPORT ---
[...] Problem Coronary artery disease involving I25.10 Active [place] coronary artery of [place] heart, angina presence unspecified Problem Alcohol abuse [...]
--- OUTSIDE RECORDS SUMMARY | 2019-10-15 16:41 | XMS REPORT ---
:1965 Author Organization [employer] Care Team Providers Name Role Phone Sean Tima Provider Role Unavailable Allergies, Adverse Reactions, Alerts Substance Reaction Event Type N.K.D.A. Info Not Available Non Drug Allergy Problems Problem Type Condition Code Onset Dates Condition Status Assessment Noncompliance of patient with Z91.11 Active dietary regimen Assessment Noncompliance w/medication treatment Z91.14 Active due to intermit use of medication Assessment Alcohol abuse F10.10 Active Assessment Alcohol abuse counseling and Z71.41 Active surveillance Assessment Coronary artery disease involving I25.10 Active [place] coronary artery of [place] heart, angina presence unspecified Assessment Subclinical hypothyroidism E03.9 Active Assessment Type 2 diabetes mellitus with other E11.29 Active diabetic kidney complication Assessment Liver lesion K76.9 Active Assessment Hepatitis C virus infection without B19.20 Active hepatic coma, unspecified chronicity Problem Uncontrolled type 2 diabetes E11.65 Active mellitus with hyperglycemia Assessment Mixed hyperlipidemia E78.2 Active Problem HTN, goal below 130/80 I10 Active Assessment HTN, goal below 130/80 I10 Active Problem Alcoholic cirrhosis, unspecified K70.30 Active whether ascites present Problem Subclinical hypothyroidism E03.9 Active Problem Hepatitis C virus infection without B19.20 Active hepatic coma, unspecified chronicity Problem 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 Active state Problem Noncompliance of patient with Z91.11 Active dietary regimen Assessment Secondary esophageal varices with I85.11 Active bleeding Assessment Alcoholic cirrhosis, unspecified K70.30 Active whether ascites present Problem Hepatocellular carcinoma C22.0 Active Assessment Proteinuria, unspecified R80.9 Active Problem Secondary esophageal varices with I85.11 Active bleeding Problem Coronary artery disease involving I25.10 Active [place] coronary artery of [place] heart, angina presence unspecified Problem Alcohol abuse F10.10 Active Problem Type 2 diabetes mellitus with other E11.29 Active diabetic kidney complication Assessment Encephalopathy, hepatic K72.90 Active Assessment Uncontrolled type 2 diabetes E11.65 Active mellitus with hyperglycemia Assessment Hepatocellular carcinoma C22.0 Active Problem Alcoholic cirrhosis of liver without K70.30 Active ascites Problem Liver lesion K76.9 Active Problem Mixed hyperlipidemia E78.2 Active Problem Secondary esophageal varices without I85.10 Active bleeding Medications Medication Code Code Instructions Start End Status Dosage System Date Date Lactulose [facility] 17812651705 20 GM/30ML December Active 15 ml Orally BID 2019 Rifaximin [facility] [address]-24 550 MG Orally December Active 1 tablet Twice a day 2019 Lisinopril ND 43493810007 5 MG Orally Once Active 1 tablet a day BD Ultra-Fine [facility] 57292396675 4mm x 32Gm Jun 30, Active 1 needle Shelby Pen [place] subcutaneously 2018 with once a day Tresiba pen Atorvastatin ND 71362641110 40 MG Orally Active 1 tablet Calcium Once a day Spironolactone ND 34796039161 50 MG Orally December Active 1 tablet Once a day , with food 2019 Pantoprazole [facility] 56743154911 40 MG Orally Active 1 tablet Sodium Once a day Lactulose [facility] 31928494426 10 GM/15ML Active TAKE 30ML BY MOUTH TWICE DAILY. Tresiba FlexTouch [facility] 75496963280 200 UNIT/ML Active inject 44 Subcutaneous units Once a day Propranolol HCl ND 33035266959 20 MG Orally Active 1 tablet Once a day on an empty stomach Aspir-81 [facility] 16443218052 81 MG Orally Active 1 tablet Once a day Lasix [facility] 43026638111 20 MG Orally Active 1 tablet Once a day Results No Known Results Summary Purpose eClinicalWorks Submission
--- OUTSIDE RECORDS SUMMARY | 2019-10-15 16:41 | XMS REPORT ---
:1965 Author Organization e[employer]Works Care Team Providers Name Role Phone Tima Etsrada Provider Role Unavailable Allergies No Known Allergies [...] Problem Coronary artery disease involving I25.10 Active [place] coronary artery of [place] heart, angina presence unspecified Problem Alcohol abuse F10.10 Active Problem Type 2 diabetes mellitus with other E11.29 Active diabetic kidney complication Assessment HTN, goal below 130/80 I10 Active Problem Alcoholic cirrhosis of liver without K70.30 Active ascites Problem Liver lesion K76.9 Active Problem Mixed hyperlipidemia E78.2 Active Problem Uncontrolled type 2 diabetes E11.65 Active mellitus with hyperglycemia Problem Secondary esophageal varices without I85.10 Active bleeding Problem HTN, goal below 130/80 I10 Active Medications Medication Code Code Instructions Start End Status Dosage System Date Date Carvedilol [facility] 11531871950 6.25 MG Orally Active 1 tablet Twice a day Lactulose [facility] 10806293614 10 GM/15ML Active TAKE 30ML BY MOUTH TWICE DAILY. Lasix [facility] 95868710855 20 MG Orally Active 1 tablet Once a day Rifaximin [facility] [address]-70 550 MG Orally December Active 1 tablet Twice a day 2019 Lisinopril [facility] 34763832175 5 MG Orally Once Active 1 tablet a day Tresiba [facility] 85785601652 200 UNIT/ML Active inject 44 FlexTouch Subcutaneous units Once a day Propranolol HCl [facility] 50852141924 20 MG Orally Inactive 1 tablet Once a day on an empty stomach Spironolactone [facility] 05015443354 50 MG Orally December Active 1 tablet Once a day 07, with food 2019 Pantoprazole ND 95886920508 40 MG Orally Active 1 tablet Sodium Once a day Lactulose ND 35007991127 20 GM/30ML December Active 15 ml Orally BID 2019 BD Ultra-Fine ND 55796057797 4mm x 32Gm Jun 30, Active 1 needle Shelby Pen [place] subcutaneously 2018 with once a day Tresiba pen Atorvastatin ND 04017391523 40 MG Orally Active 1 tablet Calcium Once a day Aspir-81 [facility] 94431788802 81 MG Orally Active 1 tablet Once a day Results No Known Results Summary Purpose eClinicalWorks Submission
[2019-10-15] MEDS ORDERED: NA CHLORIDE 0.9% 1,000 ML ONE (17:12)
[2019-10-15] MEDS ORDERED: ONDANSETRON 4 MG/2 ML VIAL ONE (17:12)
[2019-10-15 17:18] LABS: Absolute Lymphocytes (CBC) 1.6 K/uL (0.7-4.9); Basophils % 0.6 % (0-1.3); Hematocrit 33.3 % (39.6-49.0); Lymphocytes % 22.2 % (15.3-44.8); MPV 9.8 fL (7.6-11.3); RBC Red Blood Cell Count 4.98 M/uL (4.33-5.43)
[2019-10-15 17:21] LABS: Protime INR 1.11
--- NOTE | 2019-10-15 17:34 | RAD REPORT ---
EXAM DESCRIPTION: CT - Head Brain Wo Cont - 10/15/2019 5:19 pm CLINICAL HISTORY: Headache COMPARISON: CT head July 2019 TECHNIQUE: Axial 5 mm thick images of the head were obtained without IV contrast. All CT scans are performed using dose optimization technique as appropriate and may include automated exposure control or mA/KV adjustment according to patient size. FINDINGS: No intracranial hemorrhage, mass, edema or shift of mid-line structures. No acute infarcti on changes seen. No abnormal extra-axial fluid collections. Ventricles are normal. Mastoid air cells and visualized portions of the paranasal sinuses are clear. No acute bony findings. IMPRESSION: Negative non-contrast CT head examination. No significant change from comparison.
--- NOTE | 2019-10-15 17:46 | RAD REPORT ---
EXAM DESCRIPTION: RAD - Chest Single View - 10/15/2019 5:17 pm CLINICAL HISTORY: DYSPNEA COMPARISON: Chest Single View dated 07/29/2019 TECHNIQUE: AP portable chest image was obtained 10/15/2019 5:17 pm . FINDINGS: Lung volumes are low. No peripheral mass or consolidation. Central vasculature and lung ma rkings are mildly prominent compared to the prior study. Heart size is normal. No measurable pleural effusion and no pneumothorax. No acute bony abnormality seen. No acute aortic findings suspected. IMPRESSION: Increased vasculature and lung markings centrally. No peripheral consolidation or mass. Mild failure or volume overload suspected.
[2019-10-15 17:50] LABS: Blood Morphology Comment NOTED (NOT SEEN); Platelet Estimate DECR; Urine White Blood Cell Casts OK
[2019-10-15 17:52] LABS: Albumin 3.5 g/dL (3.4-5.0); Bilirubin Direct 0.3 mg/dL (0-0.2); Bilirubin Total 0.9 mg/dL (0.2-1.0); Magnesium 2.3 mg/dL (1.8-2.4); Potassium 4.2 mmol/L (3.5-5.1); Protein, Total 8.1 g/dL (6.4-8.2)
[2019-10-15 18:49] LABS: Arterial Blood Carboxyhemoglob 1.6 % (0-1.5); Blood Gas Oxyhemoglobin 95.5 % (94-97); Blood O2 Saturation 97.8 % (92-98.5)
[2019-10-15] MEDS ORDERED: INSULIN -REGULAR HUMAN 50 UNIT/0.5 ML ML ONE ×2 (18:59→19:53)
[2019-10-15] MEDS ORDERED: LACTULOSE 20 GM/30 ML UCUP ONE (20:33)
--- NOTE | 2019-10-15 20:41 | ER ---
Nurse's Notes [facility] Name: Janusz Morris Jr Age: 54 yrs Sex: Male : 1965 Arrival Date: 10/15/2019 Time: 16:36 Bed 6 Private MD: Tima Estrada Diagnosis: Hyperglycemia, unspecified Presentation: 10/15 16:41 Presenting complaint: Patient states: "I have a headache, I can't sleep, I feel weak, aa5 short of breath, and chest pain every once in a while". Pt also reports nausea/vomiting, denies diarrhea. Pt reports symptoms began 3 weeks ago. Pt's family reports he started taking Carvedilol approximately 3 weeks ago. 16:41 Transition of care: patient was not received from another setting of care. Onset of aa5 symptoms was September 2019. Risk Assessment: Do you want to hurt yourself or someone else? Patient reports no desire to harm self or others. Initial Sepsis Screen: Does the patient meet any 2 criteria? No. Patient's initial sepsis screen is negative. Does the patient have a suspected source of infection? No. Patient's initial sepsis screen is negative. Care prior to arrival: None. 16:41 Method Of Arrival: Ambulatory aa5 16:41 Acuity: AJ 3 aa5 Historical: - Allergies: 16:41 No Known Allergies; aa5 - Home Meds: 16:50 atorvastatin 40 mg Oral tab 1 tab once daily [Active]; furosemide 20 mg Oral tab 1 tab aa5 once daily [Active]; lactulose 10 gram/15 mL Oral soln 60 mL 3 times per day [Active]; pantoprazole 40 mg Oral TbEC 1 tab 2 times per day [Active]; lisinopril 5 mg Oral tab 1 tab once daily [Active]; carvedilol 6.25 mg oral tab 2 times per day [Active]; spironolactone 50 mg Oral tab 1 tab once daily [Active]; - PMHx: 16:50 Alcoholism; Cirrhosis; Diabetes - NIDDM; esophageal varices; GI Bleed; Hypertension; aa5 - PSHx: 21:08 None; rv - Immunization history:: Adult Immunizations up to date. - Ebola Screening: : No symptoms or risks identified at this time. - Social history:: Smoking status: unknown. Screenin:50 Abuse screen: Denies threats or abuse. Nutritional screening: Has had N/V for 3 or more aa5 days. Tuberculosis screening: No symptoms or risk factors identified. 17:00 Fall Risk None identified. em Assessment: 16:50 General: Appears in no apparent distress. uncomfortable, Behavior is calm, cooperative, em Reports feeling ill for 2-3 days, fatigue for 2-3 days, Denies fever. Pain: Pain currently is 0 out of 10 on a pain scale. at worst was 6 out of 10 on a pain scale. Neuro: Level of Consciousness is awake, alert, obeys commands, Oriented to person, place, time, situation, Appropriate for age Moves all extremities. Speech is normal, Reports headache. Cardiovascular: Capillary refill < 3 seconds Patient's skin is warm and dry. Rhythm is sinus rhythm. Respiratory: Reports shortness of breath on exertion Airway is patent Respiratory effort is even, unlabored, Respiratory pattern is regular, symmetrical, Denies cough. GI: Abdomen is round non-distended, Bowel sounds present X 4 quads. Reports nausea, vomiting, Patient currently denies diarrhea. Derm: Skin is intact, Skin is clammy, Skin is pale, Skin temperature is cool. Musculoskeletal: Capillary refill < 3 seconds, Range of motion: intact in all extremities. 18:50 Reassessment: Patient appears in no apparent distress at this time. Patient and/or em family updated on plan of care and expected duration. Pain level reassessed. Patient is alert, oriented x 3, equal unlabored respirations, skin warm/dry/pink. nausea has improved Patient states feeling better. Vital Signs: 16:43 BP 166 / 75; Pulse 67; Resp 16 S; Temp 98.2(O); Pulse Ox 100% on R/A; Weight 78.47 kg aa5 (R); Height 5 ft. 2 in. (157.48 cm) (R); Pain 6/10; 18:53 BP 128 / 61; Pulse 68; Resp 18; Pulse Ox 100% on R/A; em 20:00 BP 131 / 66; Pulse 69; Resp 16; Pulse Ox 100% ; rv 21:00 BP 148 / 74; Pulse 72; Resp 15; Pulse Ox 100% on R/A; rv 16:43 Body Mass Index 31.64 (78.47 kg, 157.48 cm) aa5 ED Course: 16:36 Patient arrived in ED. mr 16:37 Tima Estrada DO is Private Physician. mr 16:41 Arm band placed on. aa5 16:43 Chadd Pathak, RN is Primary Nurse. em 16:43 Woody King PA is PHCP. jr8 16:43 Syed Steele MD is Attending Physician. jr8 16:50 Patient has correct armband on for positive identification. Bed in low position. Call sv light in reach. Side rails up X2. Adult w/ patient. loss control representative on. Pulse ox on. NIBP on. Door closed. Head of bed elevated. 16:52 Triage completed. aa5 17:00 Initial lab(s) drawn, by me, sent to lab. T\\T\\S collected, blood band applied to patient. em Inserted saline lock: 20 gauge in right antecubital area, using aseptic technique. Blood collected. 17:18 XRAY Chest (1 view) In Process Unspecified. EDMS 17:19 CT Head Brain wo Cont In Process Unspecified. EDMS 17:53 Notified Nurse Practitioner and/or Physician Tank Stave Assembler of a critical lab result(s), iw glucose 544. 20:41 Tima Estrada DO is Referral Physician. jr8 21:07 No provider procedures requiring assistance completed. IV discontinued, intact, rv bleeding controlled, No redness/swelling at site. Pressure dressing applied. Administered Medications: 17:14 Drug: NS 0.9% 1000 ml Route: IV; Rate: 1000 ml; Site: right antecubital; em 19:17 Follow up: IV Status: Completed infusion; IV Intake: 1000ml em 17:14 Drug: Zofran 4 mg Route: IVP; Site: right antecubital; em 19:17 Follow up: Response: No adverse reaction; Nausea is decreased em 19:03 Drug: Insulin Regular Human 10 units {Co-Signature: rv (Eloy Doyle RN).} Route: em IVP; Site: right antecubital; 20:33 Follow up: Response: Blood sugar is lowered rv 19:55 Drug: Insulin Regular Human 10 units {Co-Signature: vc (Gely Torres RN).} Route: rv IVP; Site: right antecubital; 21:09 Follow up: Response: Blood sugar is lowered rv 20:32 Drug: Lactulose 30 grams Volume: 45 ml; Route: PO; rv 21:09 Follow up: Response: No adverse reaction rv Intake: 19:17 IV: 1000ml; Total: 1000ml. em Outcome: 20:41 Discharge ordered by MD. huston 21:08 Discharged to home ambulatory, with family. rv 21:08 Condition: good 21:08 Discharge instructions given to patient, Instructed on discharge instructions, follow up and referral plans. Demonstrated understanding of instructions, follow-up care. 21:09 Patient left the ED. rv Signatures: Dispatcher [employer] Nissa Neff, RN RN ken KapadiaMelba mr Pathak, Chadd, RN RN Ramona Parra RN JADA iw Vivien Velasquez RN Woody Garcia PA PA jr8 Vicente, Ronaldo, RN RN rv Ronaldo Vicente RN rv Vanessa Calcote RN vc
--- NOTE | 2019-10-15 20:42 | EDPHYS ---
Physician Documentation [facility] Name: Janusz Morris Jr Age: 54 yrs Sex: Male : 1965 Arrival Date: 10/15/2019 Time: 16:36 Bed 6 Private MD: Tima Estrada ED Physician Syed Steele HPI: 10/15 20:02 This 54 yrs old Male presents to ER via Ambulatory with complaints of Doesn't jr8 Feel Right. 20:02 Patient stated that he feels weak and fatigued. Having chest pain on/off with shortness jr8 of breath. Stumbling around at home. History of cirrhosis of the liver. Stated that he has been complaint with all of his medications . Severity of symptoms: At their worst the symptoms were moderate in the emergency department the symptoms are unchanged. The patient has not experienced similar symptoms in the past. The patient has not recently seen a physician. Historical: - Allergies: 16:41 No Known Allergies; aa5 - Home Meds: 16:50 atorvastatin 40 mg Oral tab 1 tab once daily [Active]; furosemide 20 mg Oral tab 1 tab aa5 once daily [Active]; lactulose 10 gram/15 mL Oral soln 60 mL 3 times per day [Active]; pantoprazole 40 mg Oral TbEC 1 tab 2 times per day [Active]; lisinopril 5 mg Oral tab 1 tab once daily [Active]; carvedilol 6.25 mg oral tab 2 times per day [Active]; spironolactone 50 mg Oral tab 1 tab once daily [Active]; - PMHx: 16:50 Alcoholism; Cirrhosis; Diabetes - NIDDM; esophageal varices; GI Bleed; Hypertension; aa5 - PSHx: 21:08 None; rv - Immunization history:: Adult Immunizations up to date. - Ebola Screening: : No symptoms or risks identified at this time. - Social history:: Smoking status: unknown. ROS: 20:02 Eyes: Negative for injury, pain, redness, and discharge, ENT: Negative for injury, jr8 pain, and discharge, Neck: Negative for injury, pain, and swelling, Abdomen/GI: Negative for abdominal pain, nausea, vomiting, diarrhea, and constipation, Back: Negative for injury and pain, MS/Extremity: Negative for injury and deformity, Skin: Negative for injury, rash, and discoloration. 20:02 Cardiovascular: Positive for chest pain, Negative for edema, orthopnea, palpitations, paroxysmal nocturnal dyspnea. 20:02 Respiratory: Positive for shortness of breath. 20:02 Neuro: Positive for dizziness, gait disturbance, headache. Exam: 20:02 Eyes: Pupils equal round and reactive to light, extra-ocular motions intact. Lids and jr8 lashes normal. Conjunctiva and sclera are non-icteric and not injected. Cornea within normal limits. Periorbital areas with no swelling, redness, or edema. ENT: Nares patent. No nasal discharge, no septal abnormalities noted. Tympanic membranes are normal and external auditory canals are clear. Oropharynx with no redness, swelling, or masses, exudates, or evidence of obstruction, uvula midline. Mucous membranes moist. Neck: Trachea midline, no thyromegaly or masses palpated, and no cervical lymphadenopathy. Supple, full range of motion without nuchal rigidity, or vertebral point tenderness. No Meningismus. Cardiovascular: Regular rate and rhythm with a normal S1 and S2. No gallops, murmurs, or rubs. Normal PMI, no JVD. No pulse deficits. Respiratory: Lungs have equal breath sounds bilaterally, clear to auscultation and percussion. No rales, rhonchi or wheezes noted. No increased work of breathing, no retractions or nasal flaring. Abdomen/GI: Soft, non-tender, with normal bowel sounds. No distension or tympany. No guarding or rebound. No evidence of tenderness throughout. Back: No spinal tenderness. No costovertebral tenderness. Full range of motion. Skin: Warm, dry with normal turgor. Normal color with no rashes, no lesions, and no evidence of cellulitis. MS/ Extremity: Pulses equal, no cyanosis. Neurovascular intact. Full, normal range of motion. Neuro: Awake and alert, GCS 15, oriented to person, place, time, and situation. Cranial nerves II-XII grossly intact. Motor strength 5/5 in all extremities. Sensory grossly intact. Cerebellar exam normal Vital Signs: 16:43 BP 166 / 75; Pulse 67; Resp 16 S; Temp 98.2(O); Pulse Ox 100% on R/A; Weight 78.47 kg aa5 (R); Height 5 ft. 2 in. (157.48 cm) (R); Pain 6/10; 18:53 BP 128 / 61; Pulse 68; Resp 18; Pulse Ox 100% on R/A; em 20:00 BP 131 / 66; Pulse 69; Resp 16; Pulse Ox 100% ; rv 21:00 BP 148 / 74; Pulse 72; Resp 15; Pulse Ox 100% on R/A; rv 16:43 Body Mass Index 31.64 (78.47 kg, 157.48 cm) aa5 MDM: 16:44 Patient medically screened. jr8 20:23 Data reviewed: vital signs, nurses notes, lab test result(s), EKG, radiologic studies, jr8 plain films. Data interpreted: Pulse oximetry: on room air is 100 %. Interpretation: normal. Counseling: I had a detailed discussion with the patient and/or guardian regarding: the historical points, exam findings, and any diagnostic results supporting the discharge/admit diagnosis, lab results, radiology results, the need for outpatient follow up, a water superintendent, to return to the emergency department if symptoms worsen or persist or if there are any questions or concerns that arise at home. ED course: Patient doing much better after blood sugar started to normalize. Patient responding appropriately and without decrease in mentation or slurred speech. Headache gone. Will give loading dose of lactulose here and ensure glucose is at a more reasonable level. If doing well will go home to f/u with PCP . 10/15 16:44 Order name: Basic Metabolic Panel; Complete Time: :10/15 16:44 Order name: CBC with Diff; Complete Time: :10/15 16:44 Order name: LFT's; Complete Time: :10/15 16:44 Order name: Magnesium; Complete Time: :10/15 16:44 Order name: NT PRO-BNP; Complete Time: :10/15 16:44 Order name: PT-INR; Complete Time: 10/15 16:44 Order name: Troponin (emerg Dept Use Only); Complete Time: :10/15 16:44 Order name: AMMONIA; Complete Time: :10/15 16:44 Order name: TS; Complete Time: 10/15 17:51 Order name: CBC Smear Scan; Complete Time: : EDMS 10/15 17:54 Order name: ABG; Complete Time: 19:31 sg 10/15 18:57 Order name: Osmolality, Serum; Complete Time: 20:06 em 10/15 19:54 Order name: Glucose, Ancillary Testing; Complete Time: 20:02 EDMS 10/15 20:49 Order name: Glucose, Ancillary Testing; Complete Time: 20:58 EDMS 10/15 16:44 Order name: XRAY Chest (1 view); Complete Time: 19:31 8 10/15 16:44 Order name: EKG; Complete Time: 16:46 8 10/15 16:44 Order name: Cardiac monitoring; Complete Time: 16:56 8 10/15 16:44 Order name: EKG - Nurse/Tech; Complete Time: 17:15 8 10/15 16:44 Order name: IV Saline Lock; Complete Time: 17:05 8 10/15 16:44 Order name: Labs collected and sent; Complete Time: 17:05 [facility] 10/15 16:44 Order name: O2 Per Protocol; Complete Time: 16:56 8 10/15 16:44 Order name: O2 Sat Monitoring; Complete Time: 16:56 8 10/15 16:49 Order name: EKG Electrocardiogram; Complete Time: 19:08 EDMS 10/15 17:06 Order name: CT Head Brain wo Cont; Complete Time: 19:31 8 10/15 17:09 Order name: Glucose Level; Complete Time: 19:08 jr8 Administered Medications: 17:14 Drug: NS 0.9% 1000 ml Route: IV; Rate: 1000 ml; Site: right antecubital; em 19:17 Follow up: IV Status: Completed infusion; IV Intake: 1000ml em 17:14 Drug: Zofran 4 mg Route: IVP; Site: right antecubital; em 19:17 Follow up: Response: No adverse reaction; Nausea is decreased em 19:03 Drug: Insulin Regular Human 10 units {Co-Signature: rv (Elyo Doyle RN).} Route: em IVP; Site: right antecubital; 20:33 Follow up: Response: Blood sugar is lowered rv 19:55 Drug: Insulin Regular Human 10 units {Co-Signature: vc (Gely Torres RN).} Route: rv IVP; Site: right antecubital; 21:09 Follow up: Response: Blood sugar is lowered rv 20:32 Drug: Lactulose 30 grams Volume: 45 ml; Route: PO; rv 21:09 Follow up: Response: No adverse reaction rv Disposition: 10/16 08:12 Co-signature as Attending Physician, Syed Steele MD. rn Disposition: 10/15/19 20:41 Discharged to Home. Impression: Hyperglycemia, unspecified. - Condition is Stable. - Discharge Instructions: Hyperglycemia, Blood Glucose Monitoring, Adult. - Medication Reconciliation Form, Thank You Letter, Antibiotic Education, Prescription Opioid Use form. - Follow up: Tima Estrada DO; When: 2 - 3 days; Reason: Recheck today's complaints, Continuance of care, Re-evaluation by your physician. - Problem is new. - Symptoms have improved. Signatures: Dispatcher [employer] [facility] Chadd Pathak, RN JADA em Syed Steele MD MD rn Calderon, Audri, RN RN aa5 Woody King, PA PA jr8 Eloy Doyle RN RN Eloy Doyle RN Gely Torres RN, vc Corrections: (The following items were deleted from the chart) 10/15 16:54 16:49 Chest Single View ordered. [facility] EDMN 21:09 20:41 10/15/2019 20:41 Discharged to Home. Impression: Hyperglycemia, unspecified. rv Condition is Stable. Forms are Medication Reconciliation Form, Thank You Letter, Antibiotic Education, Prescription Opioid Use. Follow up: Tima Estrada; When: 2 - 3 days; Reason: Recheck today's complaints, Continuance of care, Re-evaluation by your physician. Problem is new. Symptoms have improved. jr8
[2019-10-16 03:20] VITALS: TEMP 98.2; O2SAT 100
[2019-10-16 03:25] VITALS: BP 148/74
--- NOTE | 2019-10-16 13:41 | EKG ---
Test Date: 2019-10-15 Test Time: 17:10:15 Spa Manager: ARCELIA MEASUREMENT RESULTS: Intervals: Rate: 68 VT: 152 QRSD: 82 QT: 422 QTc: 448 [place]: P: 20 VT: 152 QRS: 4 T: 64 INTERPRETIVE STATEMENTS: Normal sinus rhythm Normal ECG Compared to ECG 07/28/2019 18:19:52 No significant changes Electronically Signed On 10-16-19 13:38:11 PROPERTY AND EQUIPMENT CLERK by Gunnar Talley
== END 2019-10-15 21:09 | disposition home or self-care (01) ==
LOC: ER 16:33
DX: E11.65 Type 2 diabetes mellitus with hyperglycemia (principal); I10 Essential (primary) hypertension; F10.20 Alcohol dependence, uncomplicated
CPT/HCPCS: 96361; 93005; 85025; 80048; 36415; 82140; 86900; 83735; 86850; 85610; 86901; 82947 ×2; 80076; 84484; 83880; 83930; 70450; 71045; 82805; 96375; 96374; 99284; J7030; J2405

== ENCOUNTER 2019-10-19 15:52 | Inpatient (IN) | payer MEDICAID ==
--- OUTSIDE RECORDS SUMMARY | 2019-10-19 16:08 | XMS REPORT ---
:1965 [facility] Address [address] [place] [id number] Care Team Providers Name Role Phone BRAVO [...] MDReport Verified Date/Time: 10/06/2019 15:38:31 Reading Location: [address] O490 -CREATININE 2019-10-03 11:35:00 Test Item Value Reference Range Comments POC-CREATININE (BEWILLIAM) (test 1.3 mg/dL 0.6-1.[address] [facility]-KG 2457 luyn=7744) [facility] [address] POC-EGFR (BEWILLIAM) (test 57 mL/min/1.73M2 awxi=1431) ANG, EMBOLIZATION, EXTENSIVE - [id number] 16:43:00Reason for Exam:-> liver cancerFINAL REPORT Mesenteric [...] loss: &lt ; 5 cc. Specimen: None. burning machine operator: Samantha. Mink Farmer: Gaudencio. Fluoroscopy Time: 14.5 min. Dose (Ka,r): [...] and a 0.035 inch J-wire. A 5 [place] sheath was placed. Diagnostic mesenteric angiogram was performed to access vessel patency and exclude arterio- portal shunting. A 5 [place] Ramírez catheter which was used to select the SMA and celiac trunkfor DSA runs. A 3 [place] microcatheter was advanced coaxially through the Ramírez [...] MDReport Verified Date/Time: 06/18/2019 16:43:18 Reading Location: [place] [address] Angio Body Reading Room COMPREHENSIVE METABOLIC [id number] 10:36:00 Test Item Value Reference Range Comments TOTAL PROTEIN (BEAKER) 6.5 gm/dL 6.0-8.3 (test cygr=291) ALBUMIN (BEAKER) (test 3.0 g/dL 3.5-5.0 wqwu=6521) ALKALINE PHOSPHATASE 203 U/L 40-150 (BEAKER) (test vqqo=616) BILIRUBIN TOTAL (BEAKER) 0.8 mg/dL 0.2-1.2 (test qpxb=208) SODIUM (BEAKER) (test 135 meq/L 136-145 qbxr=122) POTASSIUM (BEAKER) (test 4.1 meq/L 3.5-5.1 efsq=925) CHLORIDE (BEAKER) (test 106 meq/L 98-107 ewsh=783) CO2 (BEAKER) (test 24 meq/L 22-29 fzkh=050) BLOOD UREA NITROGEN 15 mg/dL 7-21 (BEAKER) (test ilwp=988) CREATININE (BEAKER) (test 1.17 mg/dL 0.57-1.25 gvjy=315) GLUCOSE RANDOM (BEAKER) 221 mg/dL 70-105 (test aloo=791) CALCIUM (BEAKER) (test 9.2 mg/dL 8.4-10.2 diav=177) AST (SGOT) (BEAKER) (test 78 U/L 5-34 mpef=943) ALT (SGPT) (BEAKER) (test 50 U/L 6-55 ljph=511) EGFR (BEAKER) (test 64 mL/min/1.73 sq m ESTIMATED GFR IS NOT iymm=3627) ACCURATE CREATININE CLEARANCE IN PREDICTING GLOMERULAR FILTRATION RATE. ESTIMATED GFR IS NOT APPLICABLE FOR DIALYSIS PATIENTS. PROTHROMBIN [id number] 10:19:00 Test Item Value Reference Range Comments PROTIME (BEAKER) (test qjcp=838) 14.7 seconds 11.9-14.2 INR (BEAKER) (test fxef=019) 1.2 <=5.9 Effective 02/19/2019: PT Reference Range ChangeNew: 11.9-14.2 Previous: 11.7- 14.7RECOMMENDED COUMADIN/WARFARIN INR THERAPY RANGESSTANDARD DOSE: 2.0-3.0 Includes: PROPHYLAXIS for venous thrombosis, systemic embolization; TREATMENT for venous thrombosis and/or pulmonary embolus.HIGH RISK: Target INR is2.5-3.5 for patients wiht mechanical heart valves.[id number] 10:19:00 Test Item Value Reference Range Comments PARTIAL THROMBOPLASTIN TIME (BEAKER) (test 35.6 seconds 22.5-36.0 fkpg=625) CBC W/PLT COUNT & AUTO [id number] 10:16:00 Test Item Value Reference Range Comments WHITE BLOOD CELL COUNT (BEAKER) (test qdqc=963) 6.4 K/ L 3.5-10.5 RED BLOOD CELL COUNT (BEAKER) (test ahnc=419) 3.84 M/ L 4.63-6.08 HEMOGLOBIN (BEAKER) (test ltou=104) 8.1 GM/DL 13.7-17.5 HEMATOCRIT (BEAKER) (test ipmi=384) 27.4 % 40.1-51.0 MEAN CORPUSCULAR VOLUME (BEAKER) (test cqjh=891) 71.4 fL 79.0-92.2 MEAN CORPUSCULAR HEMOGLOBIN (BEAKER) (test 21.1 pg 25.7-32.2 bqqu=440) MEAN CORPUSCULAR HEMOGLOBIN CONC (BEAKER) (test 29.6 GM/DL 32.3-36.5 ygwm=062) RED CELL DISTRIBUTION WIDTH (BEAKER) (test 16.7 % 11.6-14.4 mhng=452) PLATELET COUNT (BEAKER) (test vodg=183) 130 K/CU MM 150-450 MEAN PLATELET VOLUME (BEAKER) (test fwbi=763) 9.6 fL 9.4-12.4 NUCLEATED RED BLOOD CELLS (BEAKER) (test 0 /100 WBC 0-0 kbii=887) NEUTROPHILS RELATIVE PERCENT (BEAKER) (test 62 % wyba=042) LYMPHOCYTES RELATIVE PERCENT (BEAKER) (test 20 % jysh=472) MONOCYTES RELATIVE PERCENT (BEAKER) (test 9 % nlya=244) EOSINOPHILS RELATIVE PERCENT (BEAKER) (test 8 % thqe=852) BASOPHILS RELATIVE PERCENT (BEAKER) (test 1 % yybi=001) NEUTROPHILS ABSOLUTE COUNT (BEAKER) (test 3.97 K/ L 1.78-5.38 ovbj=230) LYMPHOCYTES ABSOLUTE COUNT (BEAKER) (test 1.27 K/ L 1.32-3.57 utnw=399) MONOCYTES ABSOLUTE COUNT (BEAKER) (test 0.54 K/ L 0.30-0.82 jxwd=944) EOSINOPHILS ABSOLUTE COUNT (BEAKER) (test 0.52 K/ L 0.04-0.54 ckcl=522) BASOPHILS ABSOLUTE COUNT (BEAKER) (test 0.08 K/ L 0.01-0.08 niun=837) IMMATURE GRANULOCYTES-RELATIVE PERCENT (BEAKER) 0 % 0-1 (test iqwp=9077) MR, ABDOMEN, [id number] 17:19:00Include Abdominal VesselsFINAL REPORT MR of the [...] MDReport Verified Date/Time: 04/09/2019 17:19:22 Reading Location: [address] Radiology Reading Room Electronically signed by: TERESE JORDAN M.D. on04/09/2019 05:19 PMALPHA FETOPROTEIN (AFP), TUMOR [id number] 14: 34:00 Test Item Value Reference Range Comments ALPHA-FETOPROTEIN (BEAKER) (test cekl=5225) 32.9 ng/mL <10.0 COMPREHENSIVE METABOLIC [id number] 14:18:00 Test Item Value Reference Range Comments TOTAL PROTEIN (BEAKER) 8.2 gm/dL 6.0-8.3 (test nfye=980) ALBUMIN (BEAKER) (test 3.5 g/dL 3.5-5.0 itii=6015) ALKALINE PHOSPHATASE 216 U/L 40-150 (BEAKER) (test hpzc=545) BILIRUBIN TOTAL (BEAKER) 1.4 mg/dL 0.2-1.2 (test qecu=211) SODIUM (BEAKER) (test 132 meq/L 136-145 tkmj=266) POTASSIUM (BEAKER) (test 4.5 meq/L 3.5-5.1 glrh=245) CHLORIDE (BEAKER) (test 102 meq/L 98-107 sbus=592) CO2 (BEAKER) (test 24 meq/L 22-29 rrkb=390) BLOOD UREA NITROGEN 12 mg/dL 7-21 (BEAKER) (test oidy=670) CREATININE (BEAKER) (test 1.16 mg/dL 0.57-1.25 knae=938) GLUCOSE RANDOM (BEAKER) 249 mg/dL 70-105 (test hkrc=289) CALCIUM (BEAKER) (test 9.3 mg/dL 8.4-10.2 krjq=000) AST (SGOT) (BEAKER) (test 81 U/L 5-34 sfiv=670) ALT (SGPT) (BEAKER) (test 40 U/L 6-55 swbh=854) EGFR (BEAKER) (test 65 mL/min/1.73 sq m ESTIMATED GFR IS NOT xhrk=0046) ACCURATE CREATININE CLEARANCE IN PREDICTING GLOMERULAR FILTRATION RATE. ESTIMATED GFR IS NOT APPLICABLE FOR DIALYSIS PATIENTS. BILIRUBIN, [id number] 14:18:00 Test Item Value Reference Range Comments BILIRUBIN DIRECT (BEAKER) (test durk=899) 0.8 mg/dL 0.1-0.5 PROTHROMBIN TIME/[id number] 14:05:00 Test Item Value Reference Range Comments PROTIME (BEAKER) (test cugi=667) 14.9 seconds 11.9-14.2 INR (BEAKER) (test wnsx=857) 1.2 <=5.9 Effective 02/19/2019: PT Reference Range ChangeNew: 11.9-14.2 Previous: 11.7- 14.7RECOMMENDED COUMADIN/WARFARIN INR THERAPY RANGESSTANDARD DOSE: 2.0-3.0 Includes: PROPHYLAXIS for venous thrombosis, systemic embolization; TREATMENT for venous thrombosis and/or pulmonary embolus.HIGH RISK: Target INR is2.5-3.5 for patients wiht mechanical heart valves.[id number] 13:58:00 Test Item Value Reference Range Comments POC-CREATININE (BEAKER) 0.9 mg/dL 0.6-1.[address] [facility] [address] (test zlbr=9427) [place] [address] POC-EGFR (BEAKER) (test 88 mL/min/1.73M2 odhk=0298) CBC W/PLT COUNT & AUTO [id number] 13:56:00 Test Item Value Reference Range Comments WHITE BLOOD CELL COUNT (BEAKER) (test ycrn=894) 5.9 K/ L 3.5-10.5 RED BLOOD CELL COUNT (BEAKER) (test xonp=639) 4.75 M/ L 4.63-6.08 HEMOGLOBIN (BEAKER) (test doyx=812) 10.7 GM/DL 13.7-17.5 HEMATOCRIT (BEAKER) (test gkiq=516) 35.5 % 40.1-51.0 MEAN CORPUSCULAR VOLUME (BEAKER) (test qdpe=651) 74.7 fL 79.0-92.2 MEAN CORPUSCULAR HEMOGLOBIN (BEAKER) (test 22.5 pg 25.7-32.2 jzqp=324) MEAN CORPUSCULAR HEMOGLOBIN CONC (BEAKER) (test 30.1 GM/DL 32.3-36.5 nsen=823) RED CELL DISTRIBUTION WIDTH (BEAKER) (test 18.6 % 11.6-14.4 znhj=062) PLATELET COUNT (BEAKER) (test lupf=961) 157 K/CU MM 150-450 MEAN PLATELET VOLUME (BEAKER) (test iwks=508) 9.4 fL 9.4-12.4 NUCLEATED RED BLOOD CELLS (BEAKER) (test 0 /100 WBC 0-0 macj=529) NEUTROPHILS RELATIVE PERCENT (BEAKER) (test 68 % avfm=971) LYMPHOCYTES RELATIVE PERCENT (BEAKER) (test 19 % evvl=535) MONOCYTES RELATIVE PERCENT (BEAKER) (test 9 % tyvq=297) EOSINOPHILS RELATIVE PERCENT (BEAKER) (test 3 % hhzp=625) BASOPHILS RELATIVE PERCENT (BEAKER) (test 1 % jvqr=468) NEUTROPHILS ABSOLUTE COUNT (BEAKER) (test 4.03 K/ L 1.78-5.38 bhwg=669) LYMPHOCYTES ABSOLUTE COUNT (BEAKER) (test 1.13 K/ L 1.32-3.57 jgws=323) MONOCYTES ABSOLUTE COUNT (BEAKER) (test 0.52 K/ L 0.30-0.82 fxcd=420) EOSINOPHILS ABSOLUTE COUNT (BEAKER) (test 0.20 K/ L 0.04-0.54 csgc=532) BASOPHILS ABSOLUTE COUNT (BEAKER) (test 0.05 K/ L 0.01-0.08 mcjg=447) IMMATURE GRANULOCYTES-RELATIVE PERCENT (BEAKER) 0 % 0-1 (test imje=9782) HOPE [id number] 08:05:00Reason for exam:->recurrent variceal bleedAddendum BeginsREPORT STATUS:A Addendum: Ultrasound was used to examine the veins the right neck. A patent internal jugular vein was identified and images the patent vein were saved on PACS. Real-time ultrasound guidance was then utilized for access of the internal jugular vein.Signed: Sola Camarillo MDReport Verified Date/Time: 01/20/2019 08:05:45 Reading Location: [address] Radiology Reading RoomAddendum EndsFINAL REPORT Procedure: [...] MDReport Verified Date/Time: 01/01/2019 17:21:51 Reading Location: [place] [address] Angio Body Reading Room POCT-GLUCOSE [id number] 08:02:00 Test Item Value Reference Range Comments POC-GLUCOSE METER (BEAKER) 187 mg/dL 70-[address] [facility] [address] [facility] (test jjvx=7350) [facility] [address] [id number] 04:17:00 Test Item Value Reference Range Comments PHOSPHORUS (BEAKER) (test giid=174) 2.9 mg/dL 2.3-4.7 [id number] 04:17:00 Test Item Value Reference Range Comments MAGNESIUM (BEAKER) (test azkv=407) 1.9 mg/dL 1.6-2.6 COMPREHENSIVE METABOLIC [id number] 04:17:00 Test Item Value Reference Range Comments TOTAL PROTEIN (BEAKER) 7.6 gm/dL 6.0-8.3 (test jtpk=980) ALBUMIN (BEAKER) (test 3.3 g/dL 3.5-5.0 smik=8163) ALKALINE PHOSPHATASE 138 U/L 40-150 (BEAKER) (test tjho=034) BILIRUBIN TOTAL (BEAKER) 1.0 mg/dL 0.2-1.2 (test uyql=401) SODIUM (BEAKER) (test 136 meq/L 136-145 eiwd=454) POTASSIUM (BEAKER) (test 4.0 meq/L 3.5-5.1 lxqt=503) CHLORIDE (BEAKER) (test 105 meq/L 98-107 yhiq=084) CO2 (BEAKER) (test 22 meq/L 22-29 mpdw=662) BLOOD UREA NITROGEN 14 mg/dL 7-21 (BEAKER) (test vflq=905) CREATININE (BEAKER) (test 1.11 mg/dL 0.57-1.25 wqjj=352) GLUCOSE RANDOM (BEAKER) 173 mg/dL 70-105 (test vpux=704) CALCIUM (BEAKER) (test 9.1 mg/dL 8.4-10.2 zkzf=100) AST (SGOT) (BEAKER) (test 89 U/L 5-34 veko=073) ALT (SGPT) (BEAKER) (test 41 U/L 6-55 vujs=636) EGFR (BEAKER) (test 69 mL/min/1.73 sq m ESTIMATED GFR IS NOT ivsy=8734) ACCURATE CREATININE CLEARANCE IN PREDICTING GLOMERULAR FILTRATION RATE. ESTIMATED GFR IS NOT APPLICABLE FOR DIALYSIS PATIENTS. CBC W/PLT COUNT & AUTO [id number] 03:43:00 Test Item Value Reference Range Comments WHITE BLOOD CELL COUNT (BEAKER) (test xgxv=784) 9.1 K/ L 3.5-10.5 RED BLOOD CELL COUNT (BEAKER) (test fbvn=497) 4.66 M/ L 4.63-6.08 HEMOGLOBIN (BEAKER) (test wihf=308) 9.1 GM/DL 13.7-17.5 HEMATOCRIT (BEAKER) (test oumt=332) 31.7 % 40.1-51.0 MEAN CORPUSCULAR VOLUME (BEAKER) (test lkyf=970) 68.0 fL 79.0-92.2 MEAN CORPUSCULAR HEMOGLOBIN (BEAKER) (test 19.5 pg 25.7-32.2 zzbx=808) MEAN CORPUSCULAR HEMOGLOBIN CONC (BEAKER) (test 28.7 GM/DL 32.3-36.5 aspr=922) RED CELL DISTRIBUTION WIDTH (BEAKER) (test 20.4 % 11.6-14.4 uaci=031) PLATELET COUNT (BEAKER) (test ftsk=994) 174 K/CU MM 150-450 MEAN PLATELET VOLUME (BEAKER) (test mqnv=929) 10.6 fL 9.4-12.4 NUCLEATED RED BLOOD CELLS (BEAKER) (test 0 /100 WBC 0-0 oadg=146) NEUTROPHILS RELATIVE PERCENT (BEAKER) (test 74 % iyzg=749) LYMPHOCYTES RELATIVE PERCENT (BEAKER) (test 16 % phog=759) MONOCYTES RELATIVE PERCENT (BEAKER) (test 7 % fgcr=918) EOSINOPHILS RELATIVE PERCENT (BEAKER) (test 2 % gcyt=021) BASOPHILS RELATIVE PERCENT (BEAKER) (test 1 % cxup=399) NEUTROPHILS ABSOLUTE COUNT (BEAKER) (test 6.70 K/ L 1.78-5.38 hbha=739) LYMPHOCYTES ABSOLUTE COUNT (BEAKER) (test 1.42 K/ L 1.32-3.57 fmtv=101) MONOCYTES ABSOLUTE COUNT (BEAKER) (test 0.61 K/ L 0.30-0.82 jbcc=291) EOSINOPHILS ABSOLUTE COUNT (BEAKER) (test 0.20 K/ L 0.04-0.54 yrka=185) BASOPHILS ABSOLUTE COUNT (BEAKER) (test 0.10 K/ L 0.01-0.08 sasi=822) IMMATURE GRANULOCYTES-RELATIVE PERCENT (BEAKER) 0 % 0-1 (test hxsc=8301) POCT-GLUCOSE [id number] 23:33:00 Test Item Value Reference Range Comments POC-GLUCOSE METER (BEAKER) 230 mg/dL 70-110 TESTED AT [address] (test wnla=7617) [facility] [address] POCT-GLUCOSE [id number] 16:25:00 Test Item Value Reference Range Comments POC-GLUCOSE METER (BEAKER) 182 mg/dL 70-110 TESTED AT [address] (test mcdw=2734) [place] [id number] POCT-GLUCOSE [id number] 14:02:00 Test Item Value Reference Range Comments POC-GLUCOSE METER (BEAKER) 146 mg/dL 70-110 TESTED AT [address] (test vuda=2430) [facility] [address] POCT-GLUCOSE [id number] 07:49:00 Test Item Value Reference Range Comments POC-GLUCOSE METER (BEAKER) 143 mg/dL 70-110 TESTED AT [address] (test ihsi=8853) [facility] [address] CALCIUM, [id number] 06:48:00 Test Item Value Reference Range Comments CALCIUM IONIZED (BEAKER) (test dnwg=602) 0.81 mmol/L 1.12-1.27 PH, BLOOD (BEAKER) (test juuk=6353) 7.50 CBC W/PLT COUNT & AUTO [id number] 06:41:00 Test Item Value Reference Range Comments WHITE BLOOD CELL COUNT 4.0 K/ L 3.5-10.5 (BEAKER) (test fuhv=869) RED BLOOD CELL COUNT (BEAKER) 4.14 M/ L 4.63-6.08 (test ydwd=249) HEMOGLOBIN (BEAKER) (test 8.2 GM/DL 13.7-17.5 pzul=437) HEMATOCRIT (BEAKER) (test 27.7 % 40.1-51.0 qkvx=357) MEAN CORPUSCULAR VOLUME 66.9 fL 79.0-92.2 (BEAKER) (test meva=426) MEAN CORPUSCULAR HEMOGLOBIN 19.8 pg 25.7-32.2 (BEAKER) (test vdbf=008) MEAN CORPUSCULAR HEMOGLOBIN 29.6 GM/DL 32.3-36.5 CONC (BEAKER) (test homv=007) RED CELL DISTRIBUTION WIDTH 20.3 % 11.6-14.4 (BEAKER) (test jpxs=016) PLATELET COUNT (BEAKER) (test 120 K/CU MM 150-450 ksau=316) MEAN PLATELET VOLUME (BEAKER) fL 9.4-12.4 Unable to report due to (test fnea=318) abnormal Platelet population distribution. NUCLEATED RED BLOOD CELLS 0 /100 WBC 0-0 (BEAKER) (test osuy=368) NEUTROPHILS RELATIVE PERCENT 58 % (BEAKER) (test aozv=721) LYMPHOCYTES RELATIVE PERCENT 25 % (BEAKER) (test amcl=839) MONOCYTES RELATIVE PERCENT 8 % (BEAKER) (test jnvj=503) EOSINOPHILS RELATIVE PERCENT 7 % (BEAKER) (test vzks=693) BASOPHILS RELATIVE PERCENT 1 % (BEAKER) (test tdri=938) NEUTROPHILS ABSOLUTE COUNT 2.36 K/ L 1.78-5.38 (BEAKER) (test sopu=687) LYMPHOCYTES ABSOLUTE COUNT 1.01 K/ L 1.32-3.57 (BEAKER) (test dllj=559) MONOCYTES ABSOLUTE COUNT 0.33 K/ L 0.30-0.82 (BEAKER) (test bflg=481) EOSINOPHILS ABSOLUTE COUNT 0.29 K/ L 0.04-0.54 (BEAKER) (test lisx=201) BASOPHILS ABSOLUTE COUNT 0.04 K/ L 0.01-0.08 (BEAKER) (test vmgh=213) IMMATURE GRANULOCYTES-RELATIVE 0 % 0-1 PERCENT (BEAKER) (test lvsp=3160) [id number] 06:02:00 Test Item Value Reference Range Comments PHOSPHORUS (BEAKER) (test ptuq=168) 3.6 mg/dL 2.3-4.7 [id number] 06:02:00 Test Item Value Reference Range Comments MAGNESIUM (BEAKER) (test dlkd=421) 1.7 mg/dL 1.6-2.6 COMPREHENSIVE METABOLIC [id number] 06:02:00 Test Item Value Reference Range Comments TOTAL PROTEIN (BEAKER) 7.2 gm/dL 6.0-8.3 (test wswe=840) ALBUMIN (BEAKER) (test 3.2 g/dL 3.5-5.0 vtug=9372) ALKALINE PHOSPHATASE 157 U/L 40-150 (BEAKER) (test zfbz=912) BILIRUBIN TOTAL (BEAKER) 0.9 mg/dL 0.2-1.2 (test dows=261) SODIUM (BEAKER) (test 137 meq/L 136-145 olzp=750) POTASSIUM (BEAKER) (test 3.5 meq/L 3.5-5.1 oyup=677) CHLORIDE (BEAKER) (test 102 meq/L 98-107 bbff=886) CO2 (BEAKER) (test 30 meq/L 22-29 pxdb=148) BLOOD UREA NITROGEN 18 mg/dL 7-21 (BEAKER) (test vnog=597) CREATININE (BEAKER) (test 1.14 mg/dL 0.57-1.25 fadx=326) GLUCOSE RANDOM (BEAKER) 130 mg/dL 70-105 (test vzwi=607) CALCIUM (BEAKER) (test 8.6 mg/dL 8.4-10.2 zxtc=465) AST (SGOT) (BEAKER) (test 53 U/L 5-34 agrp=196) ALT (SGPT) (BEAKER) (test 25 U/L 6-55 ssqt=236) EGFR (BEAKER) (test 67 mL/min/1.73 sq m ESTIMATED GFR IS NOT yeci=4318) ACCURATE CREATININE CLEARANCE IN PREDICTING GLOMERULAR FILTRATION RATE. ESTIMATED GFR IS NOT APPLICABLE FOR DIALYSIS PATIENTS. POCT-GLUCOSE [id number] 23:13:00 Test Item Value Reference Range Comments POC-GLUCOSE METER (BEAKER) 332 mg/dL 70-110 Notified JADA NIX/TESTED AT [facility] (test vvfr=6437) [address] [place] [address] POCT-GLUCOSE [id number] 15:30:00 Test Item Value Reference Range Comments POC-GLUCOSE METER (BEAKER) 191 mg/dL 70-[address] [facility] [address] (test cdfq=5940) [facility] [address] CALCIUM, [id number] 06:07:00 Test Item Value Reference Range Comments CALCIUM IONIZED (BEAKER) (test wwec=082) 0.93 mmol/L 1.12-1.27 PH, BLOOD (BEAKER) (test afoh=6908) 7.53 [id number] 06:06:00 Test Item Value Reference Range Comments PHOSPHORUS (BEAKER) (test opmn=154) 3.1 mg/dL 2.3-4.7 [id number] 06:06:00 Test Item Value Reference Range Comments MAGNESIUM (BEAKER) (test tcet=706) 1.8 mg/dL 1.6-2.6 BASIC METABOLIC [id number] 06:06:00 Test Item Value Reference Range Comments SODIUM (BEAKER) (test 138 meq/L 136-145 pdeu=408) POTASSIUM (BEAKER) (test 3.8 meq/L 3.5-5.1 pvjh=085) CHLORIDE (BEAKER) (test 104 meq/L 98-107 ewkz=638) CO2 (BEAKER) (test 27 meq/L 22-29 jinh=620) BLOOD UREA NITROGEN 19 mg/dL 7-21 (BEAKER) (test yubs=045) CREATININE (BEAKER) (test 1.26 mg/dL 0.57-1.25 erfy=752) GLUCOSE RANDOM (BEAKER) 191 mg/dL 70-105 (test povp=680) CALCIUM (BEAKER) (test 8.9 mg/dL 8.4-10.2 tuti=050) EGFR (BEAKER) (test 59 mL/min/1.73 sq m ESTIMATED GFR IS NOT ufay=0218) ACCURATE CREATININE CLEARANCE IN PREDICTING GLOMERULAR FILTRATION RATE. ESTIMATED GFR IS NOT APPLICABLE FOR DIALYSIS PATIENTS. B-TYPE NATRIURETIC FACTOR (BNP)2018-12-31 05:58:00 Test Item Value Reference Range Comments B-TYPE NATRIURETIC PEPTIDE (BEAKER) (test trtw=419) 99 pg/mL 0-100 CBC W/PLT COUNT & AUTO [id number] 05:35:00 Test Item Value Reference Range Comments WHITE BLOOD CELL COUNT 5.2 K/ L 3.5-10.5 (BEAKER) (test qgwa=115) RED BLOOD CELL COUNT (BEAKER) 4.00 M/ L 4.63-6.08 (test hmji=783) HEMOGLOBIN (BEAKER) (test 7.7 GM/DL 13.7-17.5 zwjo=528) HEMATOCRIT (BEAKER) (test 27.2 % 40.1-51.0 nrsp=687) MEAN CORPUSCULAR VOLUME 68.0 fL 79.0-92.2 (BEAKER) (test mggi=504) MEAN CORPUSCULAR HEMOGLOBIN 19.3 pg 25.7-32.2 (BEAKER) (test hfhy=466) MEAN CORPUSCULAR HEMOGLOBIN 28.3 GM/DL 32.3-36.5 CONC (BEAKER) (test tgkm=631) RED CELL DISTRIBUTION WIDTH 20.3 % 11.6-14.4 (BEAKER) (test plkh=442) PLATELET COUNT (BEAKER) (test 107 K/CU MM 150-450 rylk=666) MEAN PLATELET VOLUME (BEAKER) fL 9.4-12.4 Unable to report due to (test yqgh=277) abnormal Platelet population distribution. NUCLEATED RED BLOOD CELLS 0 /100 WBC 0-0 (BEAKER) (test uyrj=796) NEUTROPHILS RELATIVE PERCENT 67 % (BEAKER) (test oocu=200) LYMPHOCYTES RELATIVE PERCENT 19 % (BEAKER) (test hqlh=128) MONOCYTES RELATIVE PERCENT 8 % (BEAKER) (test znto=525) EOSINOPHILS RELATIVE PERCENT 5 % (BEAKER) (test fxsq=519) BASOPHILS RELATIVE PERCENT 1 % (BEAKER) (test likb=117) NEUTROPHILS ABSOLUTE COUNT 3.47 K/ L 1.78-5.38 (BEAKER) (test taja=712) LYMPHOCYTES ABSOLUTE COUNT 0.99 K/ L 1.32-3.57 (BEAKER) (test jstk=940) MONOCYTES ABSOLUTE COUNT 0.40 K/ L 0.30-0.82 (BEAKER) (test clnd=419) EOSINOPHILS ABSOLUTE COUNT 0.24 K/ L 0.04-0.54 (BEAKER) (test dgew=092) BASOPHILS ABSOLUTE COUNT 0.06 K/ L 0.01-0.08 (BEAKER) (test hfvu=930) IMMATURE GRANULOCYTES-RELATIVE 0 % 0-1 PERCENT (BEAKER) (test xohi=7117) POCT-GLUCOSE [id number] 21:49:00 Test Item Value Reference Range Comments POC-GLUCOSE METER (BEAKER) 291 mg/dL 70-110 TESTED AT [address] (test qbbd=5118) [place] [address] POCT-GLUCOSE [id number] 17:31:00 Test Item Value Reference Range Comments POC-GLUCOSE METER (BEAKER) 247 mg/dL 70-110 TESTED AT [address] (test xmpg=9416) [place] [id number] BONE AND/OR JOINT IMAGING, WHOLE [id number] 16:47:00FINAL REPORT PROCEDURE: BONE SCAN, WHOLE BODY CPT CODE: [id number] INDICATION: Hepatocellular carcinoma, preoperative evaluation for liver [...] Verified Date/ Time: 12/30/2018 16:47:37 Reading Location: [address], CHEST, WITHOUT [id number] 12:26:00FINAL REPORT CT Chest without contrast History: [...] MDReport Verified Date/Time: 12/30/2018 12:26:39 Reading Location: [facility] Diagnostic Imaging Reading Room - [place] [address] POCT-GLUCOSE [id number] 11:39:00 Test Item Value Reference Range Comments POC-GLUCOSE METER (BEAKER) 250 mg/dL 70-110 TESTED AT [address] (test eiih=7431) [facility] [address] POCT-GLUCOSE [id number] 07:43:00 Test Item Value Reference Range Comments POC-GLUCOSE METER (BEAKER) 228 mg/dL 70-110 TESTED AT [address] (test gtki=4894) [facility] [address] CALCIUM, [id number] 07:32:00 Test Item Value Reference Range Comments CALCIUM IONIZED (BEAKER) (test kowj=699) 0.97 mmol/L 1.12-1.27 PH, BLOOD (BEAKER) (test zolf=8035) 7.46 [id number] 06:46:00 Test Item Value Reference Range Comments PHOSPHORUS (BEAKER) (test supr=189) 3.5 mg/dL 2.3-4.7 [id number] 06:46:00 Test Item Value Reference Range Comments MAGNESIUM (BEAKER) (test zbnz=520) 1.8 mg/dL 1.6-2.6 COMPREHENSIVE METABOLIC [id number] 06:46:00 Test Item Value Reference Range Comments TOTAL PROTEIN (BEAKER) 7.2 gm/dL 6.0-8.3 (test mveb=378) ALBUMIN (BEAKER) (test 3.3 g/dL 3.5-5.0 ndos=2762) ALKALINE PHOSPHATASE 137 U/L 40-150 (BEAKER) (test mwrx=496) BILIRUBIN TOTAL (BEAKER) 0.8 mg/dL 0.2-1.2 (test uoai=249) SODIUM (BEAKER) (test 136 meq/L 136-145 nnua=594) POTASSIUM (BEAKER) (test 3.7 meq/L 3.5-5.1 lghq=653) CHLORIDE (BEAKER) (test 102 meq/L 98-107 mgcx=227) CO2 (BEAKER) (test 25 meq/L 22-29 ojue=049) BLOOD UREA NITROGEN 14 mg/dL 7-21 (BEAKER) (test syla=473) CREATININE (BEAKER) (test 1.06 mg/dL 0.57-1.25 pacs=043) GLUCOSE RANDOM (BEAKER) 154 mg/dL 70-105 (test afmy=487) CALCIUM (BEAKER) (test 8.8 mg/dL 8.4-10.2 wcfe=023) AST (SGOT) (BEAKER) (test 55 U/L 5-34 jyff=081) ALT (SGPT) (BEAKER) (test 24 U/L 6-55 obth=328) EGFR (BEAKER) (test 73 mL/min/1.73 sq m ESTIMATED GFR IS NOT inzn=7547) ACCURATE CREATININE CLEARANCE IN PREDICTING GLOMERULAR FILTRATION RATE. ESTIMATED GFR IS NOT APPLICABLE FOR DIALYSIS PATIENTS. CBC W/PLT COUNT & AUTO [id number] 06:20:00 Test Item Value Reference Range Comments WHITE BLOOD CELL COUNT 5.1 K/ L 3.5-10.5 (BEAKER) (test ubcy=268) RED BLOOD CELL COUNT (BEAKER) 4.24 M/ L 4.63-6.08 (test fzhg=194) HEMOGLOBIN (BEAKER) (test 8.4 GM/DL 13.7-17.5 zavm=602) HEMATOCRIT (BEAKER) (test 28.7 % 40.1-51.0 owxq=054) MEAN CORPUSCULAR VOLUME 67.7 fL 79.0-92.2 (BEAKER) (test uezd=980) MEAN CORPUSCULAR HEMOGLOBIN 19.8 pg 25.7-32.2 (BEAKER) (test qbtc=845) MEAN CORPUSCULAR HEMOGLOBIN 29.3 GM/DL 32.3-36.5 CONC (BEAKER) (test dnzr=689) RED CELL DISTRIBUTION WIDTH 20.7 % 11.6-14.4 (BEAKER) (test kgca=590) PLATELET COUNT (BEAKER) (test 121 K/CU MM 150-450 bwlk=229) MEAN PLATELET VOLUME (BEAKER) fL 9.4-12.4 Unable to report due to (test wmeg=987) abnormal Platelet population distribution. NUCLEATED RED BLOOD CELLS 0 /100 WBC 0-0 (BEAKER) (test mopj=284) NEUTROPHILS RELATIVE PERCENT 65 % (BEAKER) (test iyrc=976) LYMPHOCYTES RELATIVE PERCENT 20 % (BEAKER) (test vznw=616) MONOCYTES RELATIVE PERCENT 8 % (BEAKER) (test rjeo=326) EOSINOPHILS RELATIVE PERCENT 5 % (BEAKER) (test awbj=139) BASOPHILS RELATIVE PERCENT 1 % (BEAKER) (test rzzs=736) NEUTROPHILS ABSOLUTE COUNT 3.36 K/ L 1.78-5.38 (BEAKER) (test woov=276) LYMPHOCYTES ABSOLUTE COUNT 1.02 K/ L 1.32-3.57 (BEAKER) (test trmy=750) MONOCYTES ABSOLUTE COUNT 0.42 K/ L 0.30-0.82 (BEAKER) (test nfun=297) EOSINOPHILS ABSOLUTE COUNT 0.28 K/ L 0.04-0.54 (BEAKER) (test wxxx=321) BASOPHILS ABSOLUTE COUNT 0.05 K/ L 0.01-0.08 (BEAKER) (test omyb=746) IMMATURE GRANULOCYTES-RELATIVE 0 % 0-1 PERCENT (BEAKER) (test jpda=8925) POCT-GLUCOSE [id number] 21:51:00 Test Item Value Reference Range Comments POC-GLUCOSE METER (BEAKER) 279 mg/dL 70-110 TESTED AT [address] (test jqka=2031) [place] [id number] POCT-GLUCOSE [id number] 17:37:00 Test Item Value Reference Range Comments POC-GLUCOSE METER (BEAKER) 151 mg/dL 70-110 TESTED AT [address] (test nhhu=2771) [place] [id number] BASIC METABOLIC [id number] 16:15:00 Test Item Value Reference Range Comments SODIUM (BEAKER) (test 138 meq/L 136-145 pdue=434) POTASSIUM (BEAKER) (test 3.7 meq/L 3.5-5.1 pdme=032) CHLORIDE (BEAKER) (test 102 meq/L 98-107 ltsc=098) CO2 (BEAKER) (test 27 meq/L 22-29 pbtf=165) BLOOD UREA NITROGEN 14 mg/dL 7-21 (BEAKER) (test stlm=132) CREATININE (BEAKER) (test 1.25 mg/dL 0.57-1.25 uwzt=888) GLUCOSE RANDOM (BEAKER) 129 mg/dL 70-105 (test jair=095) CALCIUM (BEAKER) (test 9.4 mg/dL 8.4-10.2 tzny=649) EGFR (BEAKER) (test 60 mL/min/1.73 sq m ESTIMATED GFR IS NOT tlju=9279) ACCURATE CREATININE CLEARANCE IN PREDICTING GLOMERULAR FILTRATION RATE. ESTIMATED GFR IS NOT APPLICABLE FOR DIALYSIS PATIENTS. Call [id number] 12:24:00 Test Item Value Reference Range Comments POC-GLUCOSE METER (BEAKER) 358 mg/dL 70-110 TESTED AT [address] (test rabl=1347) [facility] [address] POCT-GLUCOSE [id number] 07:53:00 Test Item Value Reference Range Comments POC-GLUCOSE METER (BEAKER) 173 mg/dL 70-110 TESTED AT [address] (test qase=8909) [place] [id number] POCT-GLUCOSE [id number] 22:33:00 Test Item Value Reference Range Comments POC-GLUCOSE METER (BEAKER) 228 mg/dL 70-110 TESTED AT [address] (test jekh=0790) [place] [address] [id number] 09:58:00 Test Item Value Reference Range Comments PHOSPHORUS (BEAKER) (test syrh=044) 3.5 mg/dL 2.3-4.7 [id number] 09:58:00 Test Item Value Reference Range Comments MAGNESIUM (BEAKER) (test nlii=409) 1.9 mg/dL 1.6-2.6 COMPREHENSIVE METABOLIC [id number] 09:58:00 Test Item Value Reference Range Comments TOTAL PROTEIN (BEAKER) 7.5 gm/dL 6.0-8.3 (test cqsu=425) ALBUMIN (BEAKER) (test 3.5 g/dL 3.5-5.0 vtdb=8084) ALKALINE PHOSPHATASE 129 U/L 40-150 (BEAKER) (test ovyd=869) BILIRUBIN TOTAL (BEAKER) 0.9 mg/dL 0.2-1.2 (test ythk=163) SODIUM (BEAKER) (test 136 meq/L 136-145 imfo=751) POTASSIUM (BEAKER) (test 3.6 meq/L 3.5-5.1 ujhc=133) CHLORIDE (BEAKER) (test 103 meq/L 98-107 nrid=355) CO2 (BEAKER) (test 24 meq/L 22-29 tciw=753) BLOOD UREA NITROGEN 14 mg/dL 7-21 (BEAKER) (test orgw=151) CREATININE (BEAKER) (test 1.17 mg/dL 0.57-1.25 usah=429) GLUCOSE RANDOM (BEAKER) 224 mg/dL 70-105 (test ahfk=894) CALCIUM (BEAKER) (test 9.0 mg/dL 8.4-10.2 otwh=219) AST (SGOT) (BEAKER) (test 57 U/L 5-34 uokv=696) ALT (SGPT) (BEAKER) (test 25 U/L 6-55 ewfz=200) EGFR (BEAKER) (test 65 mL/min/1.73 sq m ESTIMATED GFR IS NOT qfic=8953) ACCURATE CREATININE CLEARANCE IN PREDICTING GLOMERULAR FILTRATION RATE. ESTIMATED GFR IS NOT APPLICABLE FOR DIALYSIS PATIENTS. POCT-GLUCOSE [id number] 08:36:00 Test Item Value Reference Range Comments POC-GLUCOSE METER (BEAKER) 220 mg/dL 70-[address] [facility] [address] [facility] (test dbqt=5032) [place] [address] CBC W/PLT COUNT & AUTO [id number] 07:42:00 Test Item Value Reference Range Comments WHITE BLOOD CELL COUNT 5.4 K/ L 3.5-10.5 (BEAKER) (test lykk=937) RED BLOOD CELL COUNT (BEAKER) 4.30 M/ L 4.63-6.08 (test dgoq=745) HEMOGLOBIN (BEAKER) (test 8.6 GM/DL 13.7-17.5 wgic=701) HEMATOCRIT (BEAKER) (test 29.3 % 40.1-51.0 dqrv=223) MEAN CORPUSCULAR VOLUME 68.1 fL 79.0-92.2 (BEAKER) (test tnlk=921) MEAN CORPUSCULAR HEMOGLOBIN 20.0 pg 25.7-32.2 (BEAKER) (test tyrn=595) MEAN CORPUSCULAR HEMOGLOBIN 29.4 GM/DL 32.3-36.5 CONC (BEAKER) (test iyzy=113) RED CELL DISTRIBUTION WIDTH 20.7 % 11.6-14.4 (BEAKER) (test blsp=248) PLATELET COUNT (BEAKER) (test 112 K/CU MM 150-450 aija=021) MEAN PLATELET VOLUME (BEAKER) fL 9.4-12.4 Unable to report due to (test lqzh=726) abnormal Platelet population distribution. NUCLEATED RED BLOOD CELLS 0 /100 WBC 0-0 (BEAKER) (test rqdu=856) NEUTROPHILS RELATIVE PERCENT 71 % (BEAKER) (test cavl=059) LYMPHOCYTES RELATIVE PERCENT 15 % (BEAKER) (test voru=777) MONOCYTES RELATIVE PERCENT 9 % (BEAKER) (test oofi=801) EOSINOPHILS RELATIVE PERCENT 5 % (BEAKER) (test ggfc=057) BASOPHILS RELATIVE PERCENT 1 % (BEAKER) (test xsbz=159) NEUTROPHILS ABSOLUTE COUNT 3.79 K/ L 1.78-5.38 (BEAKER) (test mvbh=176) LYMPHOCYTES ABSOLUTE COUNT 0.79 K/ L 1.32-3.57 (BEAKER) (test nrgh=364) MONOCYTES ABSOLUTE COUNT 0.48 K/ L 0.30-0.82 (BEAKER) (test apzt=692) EOSINOPHILS ABSOLUTE COUNT 0.28 K/ L 0.04-0.54 (BEAKER) (test gewe=784) BASOPHILS ABSOLUTE COUNT 0.04 K/ L 0.01-0.08 (BEAKER) (test zwus=058) IMMATURE GRANULOCYTES-RELATIVE 0 % 0-1 PERCENT (BEAKER) (test gqdp=6603) CALCIUM, [id number] 06:42:00 Test Item Value Reference Range Comments CALCIUM IONIZED (BEAKER) (test gnoc=678) 1.07 mmol/L 1.12-1.27 PH, BLOOD (BEAKER) (test olrx=6793) 7.42 POCT-GLUCOSE [id number] 22:30:00 Test Item Value Reference Range Comments POC-GLUCOSE METER (BEAKER) 183 mg/dL 70-110 TESTED AT [address] (test ehfx=8773) [facility] [address] POCT-GLUCOSE [id number] 18:41:00 Test Item Value Reference Range Comments POC-GLUCOSE METER (BEAKER) 278 mg/dL 70-110 TESTED AT [address] (test fyky=9255) [facility] [address] POCT-GLUCOSE [id number] 11:50:00 Test Item Value Reference Range Comments POC-GLUCOSE METER (BEAKER) 142 mg/dL 70-110 TESTED AT [address] (test jqee=8960) [facility] [address] POCT-GLUCOSE [id number] 10:36:00 Test Item Value Reference Range Comments POC-GLUCOSE METER (BEAKER) 130 mg/dL 70-110 TESTED AT [address] (test imtn=5034) [facility] [address] POCT-GLUCOSE [id number] 07:40:00 Test Item Value Reference Range Comments POC-GLUCOSE METER (BEAKER) 145 mg/dL 70-110 TESTED AT [address] (test ppqe=5968) [facility] [address] CBC W/PLT COUNT & AUTO [id number] 06:58:00 Test Item Value Reference Range Comments WHITE BLOOD CELL COUNT 5.1 K/ L 3.5-10.5 (BEAKER) (test cimy=634) RED BLOOD CELL COUNT (BEAKER) 4.31 M/ L 4.63-6.08 (test edjj=471) HEMOGLOBIN (BEAKER) (test 8.3 GM/DL 13.7-17.5 ozjc=845) HEMATOCRIT (BEAKER) (test 29.6 % 40.1-51.0 pvgm=952) MEAN CORPUSCULAR VOLUME 68.7 fL 79.0-92.2 (BEAKER) (test kbtw=028) MEAN CORPUSCULAR HEMOGLOBIN 19.3 pg 25.7-32.2 (BEAKER) (test zpiu=665) MEAN CORPUSCULAR HEMOGLOBIN 28.0 GM/DL 32.3-36.5 CONC (BEAKER) (test dmiv=754) RED CELL DISTRIBUTION WIDTH 21.1 % 11.6-14.4 (BEAKER) (test hzdk=408) PLATELET COUNT (BEAKER) (test 108 K/CU MM 150-450 kjgv=171) MEAN PLATELET VOLUME (BEAKER) fL 9.4-12.4 Unable to report due to (test xind=269) abnormal Platelet population distribution. NUCLEATED RED BLOOD CELLS 0 /100 WBC 0-0 (BEAKER) (test esla=043) NEUTROPHILS RELATIVE PERCENT 65 % (BEAKER) (test gjcm=425) LYMPHOCYTES RELATIVE PERCENT 20 % (BEAKER) (test blfu=516) MONOCYTES RELATIVE PERCENT 8 % (BEAKER) (test savr=768) EOSINOPHILS RELATIVE PERCENT 7 % (BEAKER) (test utgz=846) BASOPHILS RELATIVE PERCENT 1 % (BEAKER) (test xsll=908) NEUTROPHILS ABSOLUTE COUNT 3.30 K/ L 1.78-5.38 (BEAKER) (test hrox=578) LYMPHOCYTES ABSOLUTE COUNT 1.00 K/ L 1.32-3.57 (BEAKER) (test lqgg=558) MONOCYTES ABSOLUTE COUNT 0.40 K/ L 0.30-0.82 (BEAKER) (test wskv=412) EOSINOPHILS ABSOLUTE COUNT 0.33 K/ L 0.04-0.54 (BEAKER) (test etju=436) BASOPHILS ABSOLUTE COUNT 0.05 K/ L 0.01-0.08 (BEAKER) (test sevo=612) IMMATURE GRANULOCYTES-RELATIVE 0 % 0-1 PERCENT (BEAKER) (test qrmf=3542) [id number] 06:56:00 Test Item Value Reference Range Comments PHOSPHORUS (BEAKER) (test tfpq=151) 3.7 mg/dL 2.3-4.7 [id number] 06:56:00 Test Item Value Reference Range Comments MAGNESIUM (BEAKER) (test sgsh=874) 1.6 mg/dL 1.6-2.6 BASIC METABOLIC [id number] 06:56:00 Test Item Value Reference Range Comments SODIUM (BEAKER) (test 138 meq/L 136-145 ulhk=429) POTASSIUM (BEAKER) (test 3.9 meq/L 3.5-5.1 dqvy=923) CHLORIDE (BEAKER) (test 105 meq/L 98-107 cmxe=156) CO2 (BEAKER) (test 25 meq/L 22-29 duus=579) BLOOD UREA NITROGEN 13 mg/dL 7-21 (BEAKER) (test zqdo=042) CREATININE (BEAKER) (test 1.06 mg/dL 0.57-1.25 mgjr=161) GLUCOSE RANDOM (BEAKER) 115 mg/dL 70-105 (test upcb=731) CALCIUM (BEAKER) (test 8.8 mg/dL 8.4-10.2 oorp=595) EGFR (BEAKER) (test 73 mL/min/1.73 sq m ESTIMATED GFR IS NOT hlph=6102) ACCURATE CREATININE CLEARANCE IN PREDICTING GLOMERULAR FILTRATION RATE. ESTIMATED GFR IS NOT APPLICABLE FOR DIALYSIS PATIENTS. CALCIUM, [id number] 06:46:00 Test Item Value Reference Range Comments CALCIUM IONIZED (BEAKER) (test jugz=353) 0.89 mmol/L 1.12-1.27 PH, BLOOD (BEAKER) (test fzfo=3748) 7.41 PROTHROMBIN [id number] 06:38:00 Test Item Value Reference Range Comments PROTIME (BEAKER) (test zefa=956) 15.2 seconds 11.7-14.7 INR (BEAKER) (test zypo=418) 1.2 <=5.9 RECOMMENDED COUMADIN/WARFARIN INR THERAPY RANGESSTANDARD DOSE: 2.0 - 3.0 Includes: PROPHYLAXIS forvenous thrombosis, systemic embolization; TREATMENT for venous thrombosis and/or pulmonary embolus.HIGH RISK: Target INR is 2.5-3.5 for patients with mechanical heart valves.B-TYPE NATRIURETIC FACTOR (BNP)2018-12 06:35:00 Test Item Value Reference Range Comments B-TYPE NATRIURETIC PEPTIDE (BEAKER) (test 135 pg/mL 0-100 mijx=861) POCT-GLUCOSE [id number] 22:28:00 Test Item Value Reference Range Comments POC-GLUCOSE METER (BEAKER) 109 mg/dL 70-110 TESTED AT [address] (test lbvh=3985) [facility] [address] POCT-GLUCOSE [id number] 21:07:00 Test Item Value Reference Range Comments POC-GLUCOSE METER (BEAKER) 91 mg/dL 70-110 TESTED AT [address] (test dfnw=9705) [facility] [address] POCT-GLUCOSE [id number] 16:48:00 Test Item Value Reference Range Comments POC-GLUCOSE METER (BEAKER) 487 mg/dL 70-110 TESTED AT [address] (test rrvd=6943) [facility] [address] HOPE [id number] 12:58:00Reason for Exam:->recurrent variceal bleeding, portal hypertensionFINAL REPORT History: Portal hypertension, history of variceal bleeding. PROCEDURE: Following informed written consent, general endotracheal anesthesia was administered and the patient's right cervical region was prepped and draped in the usual sterile manner. Access was gained the right internal jugular vein using a micropuncture needle. A 9 [place] sheath was placed at the access site into the jugular vein. A 5 [place] multipurpose catheter and wire were used to carefully select the hepatic vein and perform a hepatic venogram. Hepatic venous pressures were then performed as described below. Following a discussion with the patient's referring branch retail executive, Dr. Cano, who also conferred with cardiology, [...] Verified Date/Time: 12/26/2018 12: 58:23 Reading Location: [place] [address] Angio Body Reading Room POCT-GLUCOSE [id number] 12:50:00 Test Item Value Reference Range Comments POC-GLUCOSE METER (BEAKER) 124 mg/dL 70-110 TESTED AT [address] (test bvcn=8695) [facility] [address] POCT-GLUCOSE [id number] 10:41:00 Test Item Value Reference Range Comments POC-GLUCOSE METER (BEAKER) 158 mg/dL 70-[address] [facility] [address] (test hmbx=5167) [facility] [address] COMPREHENSIVE METABOLIC [id number] 07:58:00 Test Item Value Reference Range Comments TOTAL PROTEIN (BEAKER) 7.2 gm/dL 6.0-8.3 (test eceb=124) ALBUMIN (BEAKER) (test 3.0 g/dL 3.5-5.0 gmul=5514) ALKALINE PHOSPHATASE 142 U/L 40-150 (BEAKER) (test gknn=831) BILIRUBIN TOTAL (BEAKER) 0.9 mg/dL 0.2-1.2 (test juaq=818) SODIUM (BEAKER) (test 138 meq/L 136-145 xybq=728) POTASSIUM (BEAKER) (test 4.4 meq/L 3.5-5.1 zafn=039) CHLORIDE (BEAKER) (test 106 meq/L 98-107 jpvy=408) CO2 (BEAKER) (test 26 meq/L 22-29 zvte=190) BLOOD UREA NITROGEN 10 mg/dL 7-21 (BEAKER) (test dlrm=985) CREATININE (BEAKER) (test 0.91 mg/dL 0.57-1.25 jkar=628) GLUCOSE RANDOM (BEAKER) 134 mg/dL 70-105 (test jdnp=456) CALCIUM (BEAKER) (test 9.3 mg/dL 8.4-10.2 qtml=555) AST (SGOT) (BEAKER) (test 69 U/L 5-34 mvdz=151) ALT (SGPT) (BEAKER) (test 29 U/L 6-55 ecgp=986) EGFR (BEAKER) (test 86 mL/min/1.73 sq m ESTIMATED GFR IS NOT sioy=4127) ACCURATE CREATININE CLEARANCE IN PREDICTING GLOMERULAR FILTRATION RATE. ESTIMATED GFR IS NOT APPLICABLE FOR DIALYSIS PATIENTS. [id number] 07:58:00 Test Item Value Reference Range Comments PROTIME (BEAKER) (test oxqz=591) 15.4 seconds 11.7-14.7 INR (BEAKER) (test xhgh=036) 1.2 <=5.9 PARTIAL THROMBOPLASTIN TIME (BEAKER) (test 35.4 seconds 22.5-36.0 bged=482) RECOMMENDED COUMADIN/WARFARIN INR THERAPY RANGESSTANDARD DOSE: 2.0 - 3.0 Includes: PROPHYLAXIS forvenous thrombosis, systemic embolization; TREATMENT for venous thrombosis and/or pulmonary embolus.HIGH RISK: Target INR is 2.5-3.5 for patients with mechanical heart valves.CBC W/PLT COUNT & AUTO [id number] 07:52:00 Test Item Value Reference Range Comments WHITE BLOOD CELL COUNT (BEAKER) (test pqyg=957) 4.6 K/ L 3.5-10.5 RED BLOOD CELL COUNT (BEAKER) (test dnzr=667) 4.35 M/ L 4.63-6.08 HEMOGLOBIN (BEAKER) (test oocx=514) 8.6 GM/DL 13.7-17.5 HEMATOCRIT (BEAKER) (test awwi=178) 30.1 % 40.1-51.0 MEAN CORPUSCULAR VOLUME (BEAKER) (test sciw=612) 69.2 fL 79.0-92.2 MEAN CORPUSCULAR HEMOGLOBIN (BEAKER) (test 19.8 pg 25.7-32.2 fjug=722) MEAN CORPUSCULAR HEMOGLOBIN CONC (BEAKER) (test 28.6 GM/DL 32.3-36.5 jyis=040) RED CELL DISTRIBUTION WIDTH (BEAKER) (test 21.3 % 11.6-14.4 dxom=252) PLATELET COUNT (BEAKER) (test gonh=481) 110 K/CU MM 150-450 MEAN PLATELET VOLUME (BEAKER) (test epub=095) 10.1 fL 9.4-12.4 NUCLEATED RED BLOOD CELLS (BEAKER) (test 0 /100 WBC 0-0 mgxg=313) NEUTROPHILS RELATIVE PERCENT (BEAKER) (test 66 % chid=012) LYMPHOCYTES RELATIVE PERCENT (BEAKER) (test 19 % qyym=985) MONOCYTES RELATIVE PERCENT (BEAKER) (test 8 % szpa=853) EOSINOPHILS RELATIVE PERCENT (BEAKER) (test 6 % mubi=778) BASOPHILS RELATIVE PERCENT (BEAKER) (test 1 % ghjt=613) NEUTROPHILS ABSOLUTE COUNT (BEAKER) (test 3.03 K/ L 1.78-5.38 wrez=551) LYMPHOCYTES ABSOLUTE COUNT (BEAKER) (test 0.88 K/ L 1.32-3.57 vmtz=515) MONOCYTES ABSOLUTE COUNT (BEAKER) (test 0.37 K/ L 0.30-0.82 tzfw=961) EOSINOPHILS ABSOLUTE COUNT (BEAKER) (test 0.25 K/ L 0.04-0.54 plgq=917) BASOPHILS ABSOLUTE COUNT (BEAKER) (test 0.04 K/ L 0.01-0.08 ankl=247) IMMATURE GRANULOCYTES-RELATIVE PERCENT (BEAKER) 0 % 0-1 (test mxwi=3988) POCT-GLUCOSE [id number] 00:26:00 Test Item Value Reference Range Comments POC-GLUCOSE METER (BEAKER) 161 mg/dL 70-110 TESTED AT [address] (test ikfk=6189) [facility] [address] URINALYSIS W/ [id number] 17:35:00 Test Item Value Reference Range Comments COLOR (BEAKER) (test ljja=734) Light Yellow CLARITY (BEAKER) (test xckw=602) Clear SPECIFIC GRAVITY UA (BEAKER) (test wgga=741) 1.008 1.001-1.035 PH UA (BEAKER) (test ubsv=620) 7.5 5.0-8.0 PROTEIN UA (BEAKER) (test aysy=962) 30 mg/dL Negative GLUCOSE UA (BEAKER) (test rfms=736) 30 mg/dL Negative KETONES UA (BEAKER) (test gmko=310) Negative Negative BILIRUBIN UA (BEAKER) (test srhu=258) Negative Negative BLOOD UA (BEAKER) (test lloj=770) Trace Negative NITRITE UA (BEAKER) (test ikbp=212) Negative Negative LEUKOCYTE ESTERASE UA (BEAKER) (test vhwv=273) Negative Negative UROBILINOGEN UA (BEAKER) (test utfz=654) 0.2 mg/dL 0.2-1.0 RBC UA (BEAKER) (test aanh=160) 1 /HPF WBC UA (BEAKER) (test hezk=867) 1 /HPF SOURCE(BEAKER) (test qshr=2894) Urine, Voided POCT-GLUCOSE [id number] 16:55:00 Test Item Value Reference Range Comments POC-GLUCOSE METER (BEAKER) 234 mg/dL 70-110 TESTED AT [address] (test ewmi=3470) [facility] [address] POCT-GLUCOSE [id number] 12:09:00 Test Item Value Reference Range Comments POC-GLUCOSE METER (BEAKER) 199 mg/dL 70-110 TESTED AT [address] (test liof=6253) [facility] [address] POCT-GLUCOSE [id number] 07:58:00 Test Item Value Reference Range Comments POC-GLUCOSE METER (BEAKER) 221 mg/dL 70-110 TESTED AT [address] (test mtil=3964) [facility] [address] POCT-GLUCOSE [id number] 22:49:00 Test Item Value Reference Range Comments POC-GLUCOSE METER (BEAKER) 210 mg/dL 70-110 TESTED AT [address] (test pjti=5283) [facility] [address] POCT-GLUCOSE [id number] 14:45:00 Test Item Value Reference Range Comments POC-GLUCOSE METER (BEAKER) 128 mg/dL 70-110 TESTED AT [address] (test isbj=4646) [facility] [address] POCT-GLUCOSE [id number] 12:03:00 Test Item Value Reference Range Comments POC-GLUCOSE METER (BEAKER) 136 mg/dL 70-110 TESTED AT [address] (test lusx=5153) [facility] [address] COMPREHENSIVE METABOLIC [id number] 09:07:00 Test Item Value Reference Range Comments TOTAL PROTEIN (BEAKER) 6.9 gm/dL 6.0-8.3 Specimen slightly (test kacw=001) hemolyzed ALBUMIN (BEAKER) (test 2.7 g/dL 3.5-5.0 Specimen slightly ahhg=8054) hemolyzed ALKALINE PHOSPHATASE 136 U/L 40-150 (BEAKER) (test xztg=177) BILIRUBIN TOTAL (BEAKER) 1.1 mg/dL 0.2-1.2 Specimen slightly (test ckcb=506) hemolyzed SODIUM (BEAKER) (test 135 meq/L 136-145 okrr=408) POTASSIUM (BEAKER) (test 4.4 meq/L 3.5-5.1 Specimen slightly wkzd=793) hemolyzed CHLORIDE (BEAKER) (test 106 meq/L 98-107 uamq=118) CO2 (BEAKER) (test 26 meq/L 22-29 qgeo=819) BLOOD UREA NITROGEN 7 mg/dL 7-21 (BEAKER) (test jwyp=408) CREATININE (BEAKER) (test 0.85 mg/dL 0.57-1.25 Specimen slightly tauy=108) hemolyzed GLUCOSE RANDOM (BEAKER) 118 mg/dL 70-105 (test aoij=897) CALCIUM (BEAKER) (test 8.8 mg/dL 8.4-10.2 wfmr=795) AST (SGOT) (BEAKER) (test 69 U/L 5-34 Specimen slightly cudx=162) hemolyzed ALT (SGPT) (BEAKER) (test 28 U/L 6-55 Specimen slightly uuca=884) hemolyzed EGFR (BEAKER) (test 94 mL/min/1.73 sq m ESTIMATED GFR IS NOT bgpz=7633) ACCURATE CREATININE CLEARANCE IN PREDICTING GLOMERULAR FILTRATION RATE. ESTIMATED GFR IS NOT APPLICABLE FOR DIALYSIS PATIENTS. CBC W/PLT COUNT & AUTO [id number] 08:37:00 Test Item Value Reference Range Comments WHITE BLOOD CELL COUNT 4.4 K/ L 3.5-10.5 (BEAKER) (test mdpn=567) RED BLOOD CELL COUNT (BEAKER) 4.31 M/ L 4.63-6.08 (test wudd=714) HEMOGLOBIN (BEAKER) (test 8.4 GM/DL 13.7-17.5 lkrc=987) HEMATOCRIT (BEAKER) (test 30.2 % 40.1-51.0 vhbd=333) MEAN CORPUSCULAR VOLUME 70.1 fL 79.0-92.2 (BEAKER) (test hkqc=061) MEAN CORPUSCULAR HEMOGLOBIN 19.5 pg 25.7-32.2 (BEAKER) (test stdn=489) MEAN CORPUSCULAR HEMOGLOBIN 27.8 GM/DL 32.3-36.5 CONC (BEAKER) (test xvmg=931) RED CELL DISTRIBUTION WIDTH 21.9 % 11.6-14.4 (BEAKER) (test yhnq=596) PLATELET COUNT (BEAKER) (test 114 K/CU MM 150-450 ytbi=492) MEAN PLATELET VOLUME (BEAKER) fL 9.4-12.4 Unable to report due to (test rfji=299) abnormal Platelet population distribution. NUCLEATED RED BLOOD CELLS 0 /100 WBC 0-0 (BEAKER) (test iyhq=171) NEUTROPHILS RELATIVE PERCENT 62 % (BEAKER) (test qujw=942) LYMPHOCYTES RELATIVE PERCENT 22 % (BEAKER) (test xpnm=061) MONOCYTES RELATIVE PERCENT 8 % (BEAKER) (test cjjx=266) EOSINOPHILS RELATIVE PERCENT 6 % (BEAKER) (test nvzv=946) BASOPHILS RELATIVE PERCENT 1 % (BEAKER) (test tari=463) NEUTROPHILS ABSOLUTE COUNT 2.75 K/ L 1.78-5.38 (BEAKER) (test lefo=946) LYMPHOCYTES ABSOLUTE COUNT 0.98 K/ L 1.32-3.57 (BEAKER) (test xavq=889) MONOCYTES ABSOLUTE COUNT 0.34 K/ L 0.30-0.82 (BEAKER) (test ypny=406) EOSINOPHILS ABSOLUTE COUNT 0.28 K/ L 0.04-0.54 (BEAKER) (test dafs=580) BASOPHILS ABSOLUTE COUNT 0.06 K/ L 0.01-0.08 (BEAKER) (test jhjm=765) IMMATURE GRANULOCYTES-RELATIVE 1 % 0-1 PERCENT (BEAKER) (test wkmh=5915) POCT-GLUCOSE [id number] 08:07:00 Test Item Value Reference Range Comments POC-GLUCOSE METER (BEAKER) 144 mg/dL 70-110 TESTED AT [address] (test niqr=6128) [place] [address] [id number] 23:43:00 Test Item Value Reference Range Comments MAGNESIUM (BEAKER) (test fiqe=372) 1.7 mg/dL 1.6-2.6 POCT-GLUCOSE [id number] 22:22:00 Test Item Value Reference Range Comments POC-GLUCOSE METER (BEAKER) 211 mg/dL 70-110 TESTED AT [address] (test gfeh=9674) [place] [id number] POCT-GLUCOSE [id number] 17:13:00 Test Item Value Reference Range Comments POC-GLUCOSE METER (BEAKER) 202 mg/dL 70-110 TESTED AT [address] (test ulij=1967) [place] [address] [id number] 16:14:00 Test Item Value Reference Range Comments T3 TOTAL (BEAKER) (test ldyv=748) 108 ng/dL 48-159 POCT-GLUCOSE [id number] 13:49:00 Test Item Value Reference Range Comments POC-GLUCOSE METER (BEAKER) 303 mg/dL 70-[address] [facility] [address] [facility] (test tnhs=2850) [facility] [address] POCT-GLUCOSE [id number] 12:15:00 Test Item Value Reference Range Comments POC-GLUCOSE METER (BEAKER) 304 mg/dL 70-110 Notified JADA NIX/TESTED AT [facility] (test ojqv=6253) [address] [facility] [address] ANTI-MITOCHONDRIAL AB, REFLEX TO [id number] 08:35:00 Test Item Value Reference Range Comments SCAN RESULT (test xxhn=[id number]) POCT-GLUCOSE [id number] 08:08:00 Test Item Value Reference Range Comments POC-GLUCOSE METER (BEAKER) 146 mg/dL 70-[address] [facility] [address] [facility] (test lllx=3606) [facility] [address] HEPATIC FUNCTION [id number] 06:32:00 Test Item Value Reference Range Comments TOTAL PROTEIN (BEAKER) (test uyll=705) 6.5 gm/dL 6.0-8.3 ALBUMIN (BEAKER) (test xwpl=8217) 2.7 g/dL 3.5-5.0 BILIRUBIN TOTAL (BEAKER) (test ujxq=660) 0.8 mg/dL 0.2-1.2 BILIRUBIN DIRECT (BEAKER) (test jspn=251) 0.6 mg/dL 0.1-0.5 ALKALINE PHOSPHATASE (BEAKER) (test apae=200) 141 U/L 40-150 AST (SGOT) (BEAKER) (test mkwx=037) 66 U/L 5-34 ALT (SGPT) (BEAKER) (test wtnr=080) 27 U/L 6-55 BASIC METABOLIC [id number] 06:32:00 Test Item Value Reference Range Comments SODIUM (BEAKER) (test 137 meq/L 136-145 ikwc=640) POTASSIUM (BEAKER) (test 4.0 meq/L 3.5-5.1 ghug=776) CHLORIDE (BEAKER) (test 106 meq/L 98-107 vqdc=066) CO2 (BEAKER) (test 26 meq/L 22-29 yesd=018) BLOOD UREA NITROGEN 7 mg/dL 7-21 (BEAKER) (test ddvw=892) CREATININE (BEAKER) (test 0.81 mg/dL 0.57-1.25 nhdd=838) GLUCOSE RANDOM (BEAKER) 134 mg/dL 70-105 (test jfgx=866) CALCIUM (BEAKER) (test 8.6 mg/dL 8.4-10.2 jtus=243) EGFR (BEAKER) (test 99 mL/min/1.73 sq m ESTIMATED GFR IS NOT rxtk=2543) ACCURATE CREATININE CLEARANCE IN PREDICTING GLOMERULAR FILTRATION RATE. ESTIMATED GFR IS NOT APPLICABLE FOR DIALYSIS PATIENTS. CBC (HEMOGRAM ONLY)2018-12-23 05:34:00 Test Item Value Reference Range Comments WHITE BLOOD CELL COUNT (BEAKER) (test madt=592) 4.4 K/ L 3.5-10.5 RED BLOOD CELL COUNT (BEAKER) (test xnto=812) 4.11 M/ L 4.63-6.08 HEMOGLOBIN (BEAKER) (test tjrt=831) 8.0 GM/DL 13.7-17.5 HEMATOCRIT (BEAKER) (test dnhh=812) 28.2 % 40.1-51.0 MEAN CORPUSCULAR VOLUME (BEAKER) (test xrpo=356) 68.6 fL 79.0-92.2 MEAN CORPUSCULAR HEMOGLOBIN (BEAKER) (test 19.5 pg 25.7-32.2 jiis=336) MEAN CORPUSCULAR HEMOGLOBIN CONC (BEAKER) (test 28.4 GM/DL 32.3-36.5 rtln=216) RED CELL DISTRIBUTION WIDTH (BEAKER) (test 21.5 % 11.6-14.4 tpxr=450) PLATELET COUNT (BEAKER) (test ghpt=279) 121 K/CU MM 150-450 MEAN PLATELET VOLUME (BEAKER) (test pijv=946) 10.2 fL 9.4-12.4 NUCLEATED RED BLOOD CELLS (BEAKER) (test 0 /100 WBC 0-0 tixr=559) PROTHROMBIN [id number] 05:27:00 Test Item Value Reference Range Comments PROTIME (BEAKER) (test pudo=552) 15.2 seconds 11.7-14.7 INR (BEAKER) (test fbtm=148) 1.2 <=5.9 RECOMMENDED COUMADIN/WARFARIN INR THERAPY RANGESSTANDARD DOSE: 2.0 - 3.0 Includes: PROPHYLAXIS forvenous thrombosis, systemic embolization; TREATMENT for venous thrombosis and/or pulmonary embolus.HIGH RISK: Target INR is 2.5-3.5 for patients with mechanical heart valves.POCT-GLUCOSE [id number] 23:11:00 Test Item Value Reference Range Comments POC-GLUCOSE METER (BEAKER) 224 mg/dL 70-110 TESTED AT [address] (test wznd=0086) [facility] [address] POCT-GLUCOSE [id number] 16:52:00 Test Item Value Reference Range Comments POC-GLUCOSE METER (BEAKER) 250 mg/dL 70-110 TESTED AT [address] (test srnd=3599) [facility] [address] POCT-GLUCOSE [id number] 11:56:00 Test Item Value Reference Range Comments POC-GLUCOSE METER (BEAKER) 310 mg/dL 70-110 TESTED AT [address] (test lxqo=6257) [facility] [address] POCT-GLUCOSE [id number] 07:50:00 Test Item Value Reference Range Comments POC-GLUCOSE METER (BEAKER) 267 mg/dL 70-110 TESTED AT [address] (test ibuw=2101) [facility] [address] COMPREHENSIVE METABOLIC [id number] 05:05:00 Test Item Value Reference Range Comments TOTAL PROTEIN (BEAKER) 6.3 gm/dL 6.0-8.3 (test xrwu=408) ALBUMIN (BEAKER) (test 2.6 g/dL 3.5-5.0 camp=7400) ALKALINE PHOSPHATASE 112 U/L 40-150 (BEAKER) (test lxep=337) BILIRUBIN TOTAL (BEAKER) 0.9 mg/dL 0.2-1.2 (test wwnx=580) SODIUM (BEAKER) (test 138 meq/L 136-145 feyx=046) POTASSIUM (BEAKER) (test 3.9 meq/L 3.5-5.1 mxek=919) CHLORIDE (BEAKER) (test 108 meq/L 98-107 pwbw=102) CO2 (BEAKER) (test 25 meq/L 22-29 kenb=679) BLOOD UREA NITROGEN 6 mg/dL 7-21 (BEAKER) (test iciq=889) CREATININE (BEAKER) (test 0.82 mg/dL 0.57-1.25 yjit=888) GLUCOSE RANDOM (BEAKER) 146 mg/dL 70-105 (test yply=613) CALCIUM (BEAKER) (test 8.8 mg/dL 8.4-10.2 gamo=124) AST (SGOT) (BEAKER) (test 73 U/L 5-34 ueta=992) ALT (SGPT) (BEAKER) (test 25 U/L 6-55 eakn=995) EGFR (BEAKER) (test 98 mL/min/1.73 sq m ESTIMATED GFR IS NOT bbzb=1580) ACCURATE CREATININE CLEARANCE IN PREDICTING GLOMERULAR FILTRATION RATE. ESTIMATED GFR IS NOT APPLICABLE FOR DIALYSIS PATIENTS. POCT-GLUCOSE [id number] 22:34:00 Test Item Value Reference Range Comments POC-GLUCOSE METER (BEAKER) 186 mg/dL 70-110 TESTED AT [address] (test qnfr=1203) [place] [id number] POCT-GLUCOSE [id number] 18:03:00 Test Item Value Reference Range Comments POC-GLUCOSE METER (BEAKER) 206 mg/dL 70-110 TESTED AT [address] (test ipyd=6903) [place] [id number] RAD, MANDIBLE, MIN 4 [id number] 17:16:00Reason for exam:->liver transplant evalShould this be [...] concern, consider a maxillofacial CT. Signed: Anita Mauricioepanthony Verified Date/Time: 12/21/2018 17:16:26 Reading Location: [address] Reading Room POCT-GLUCOSE [id number] 11:42:00 Test Item Value Reference Range Comments POC-GLUCOSE METER (BEAKER) 305 mg/dL 70-110 Notified JADA NIX/TESTED AT [facility] (test pyni=6122) [address] [place] [address] POCT-GLUCOSE [id number] 08:14:00 Test Item Value Reference Range Comments POC-GLUCOSE METER (BEAKER) 288 mg/dL 70-110 TESTED AT [address] (test znhp=7972) [place] [id number] POCT-GLUCOSE [id number] 23:29:00 Test Item Value Reference Range Comments POC-GLUCOSE METER (BEAKER) 134 mg/dL 70-110 TESTED AT [address] (test ypkn=3302) [place] [id number] POCT-GLUCOSE [id number] 18:42:00 Test Item Value Reference Range Comments POC-GLUCOSE METER (BEAKER) 357 mg/dL 70-110 TESTED AT [address] (test rffr=8346) [place] [address] CRYPTOCOCCAL [id number] 11:32:00 Test Item Value Reference Range Comments CRYPTOCOCCAL ANTIGEN, SERUM (BEAKER) (test Negative Negative, Interference yvqs=1523) [id number] 11:30:00 Test Item Value Reference Range Comments RPR SCREEN (BEAKER) (test jjrb=367) Nonreactive Nonreactive HEMOGLOBIN [id number] 10:23:00 Test Item Value Reference Range Comments HEMOGLOBIN A1C (BEAKER) (test lfon=303) 6.7 % 4.3-6.1 CYTOMEGALOVIRUS ANTIBODY, [id number] 09:29:00 Test Item Value Reference Range Comments CYTOMEGALOVIRUS, IGG (BEAKER) (test htpl=4873) Positive Negative, Equivocal CMV IgG Result Interpretation: </=0.8 Al Negative 0.9-1.0 Al Equivocal &gt ;/=1.1 Al PositiveCYTOMEGALOVIRUS ANTIBODY, [id number] 09:29:00 Test Item Value Reference Range Comments CYTOMEGALOVIRUS IGM ANTIBODY (BEAKER) (test Negative Negative, Equivocal hnrh=0696) CMV IgM Result Interpretation: </=0.8 Al Negative 0.9-1.0 Al Equivocal >/=1.1 Al PositiveEBV ANTIBODY, [id number] 09:29:00 Test Item Value Reference Range Comments JAQUELINE MEDRANO VIRAL CAPSID ANTIGEN IGG (BEAKER) Positive Negative, Equivocal (test kwix=0472) Jaqueline Medrano Viral Capsid Antigen IgG Result Interpretation: </=0.8 Al Negative 0.9-1.0 Al Equivocal >/=1.1 Al PositiveEBV ANTIBODY, [id number] 09:29:00 Test Item Value Reference Range Comments JAQUELINE MEDRANO VIRAL CAPSID ANTIGEN IGM (BEAKER) Negative Negative, Equivocal (test jmoq=1865) Jaqueline Medrano Viral Capsid Antigen IgM Result Interpretation: </=0.8 Al Negative 0.9-1.0 Al Equivocal >/=1.1 Al PositivePOCT-GLUCOSE [id number] 07:53:00 Test Item Value Reference Range Comments POC-GLUCOSE METER (BEAKER) 168 mg/dL 70-[address] [facility] [address] [facility] (test knms=7000) [facility] [address] CBC (HEMOGRAM ONLY)2018-12-20 07:02:00 Test Item Value Reference Range Comments WHITE BLOOD CELL COUNT (BEAKER) (test izgp=773) 4.7 K/ L 3.5-10.5 RED BLOOD CELL COUNT (BEAKER) (test fxlo=995) 4.09 M/ L 4.63-6.08 HEMOGLOBIN (BEAKER) (test vckf=386) 8.1 GM/DL 13.7-17.5 HEMATOCRIT (BEAKER) (test wyau=020) 28.3 % 40.1-51.0 MEAN CORPUSCULAR VOLUME (BEAKER) (test jjxd=947) 69.2 fL 79.0-92.2 MEAN CORPUSCULAR HEMOGLOBIN (BEAKER) (test 19.8 pg 25.7-32.2 iwti=341) MEAN CORPUSCULAR HEMOGLOBIN CONC (BEAKER) (test 28.6 GM/DL 32.3-36.5 liqf=925) RED CELL DISTRIBUTION WIDTH (BEAKER) (test 21.8 % 11.6-14.4 taxs=367) PLATELET COUNT (BEAKER) (test ldbz=923) 121 K/CU MM 150-450 MEAN PLATELET VOLUME (BEAKER) (test ngkj=949) 10.6 fL 9.4-12.4 NUCLEATED RED BLOOD CELLS (BEAKER) (test 0 /100 WBC 0-0 yzwb=612) CALCIUM, [id number] 06:36:00 Test Item Value Reference Range Comments CALCIUM IONIZED (BEAKER) (test iccm=417) 1.07 mmol/L 1.12-1.27 PH, BLOOD (BEAKER) (test rjny=5828) 7.41 HEPATIC FUNCTION [id number] 06:32:00 Test Item Value Reference Range Comments TOTAL PROTEIN (BEAKER) (test yemf=211) 6.4 gm/dL 6.0-8.3 ALBUMIN (BEAKER) (test cyks=6626) 2.6 g/dL 3.5-5.0 BILIRUBIN TOTAL (BEAKER) (test kefo=245) 0.6 mg/dL 0.2-1.2 BILIRUBIN DIRECT (BEAKER) (test bdag=894) 0.4 mg/dL 0.1-0.5 ALKALINE PHOSPHATASE (BEAKER) (test waif=951) 127 U/L 40-150 AST (SGOT) (BEAKER) (test rycy=024) 54 U/L 5-34 ALT (SGPT) (BEAKER) (test zykb=828) 22 U/L 6-55 BASIC METABOLIC [id number] 06:32:00 Test Item Value Reference Range Comments SODIUM (BEAKER) (test 138 meq/L 136-145 ebfr=171) POTASSIUM (BEAKER) (test 3.8 meq/L 3.5-5.1 qlxp=687) CHLORIDE (BEAKER) (test 104 meq/L 98-107 jsml=722) CO2 (BEAKER) (test 26 meq/L 22-29 jsqk=752) BLOOD UREA NITROGEN 8 mg/dL 7-21 (BEAKER) (test rxqu=973) CREATININE (BEAKER) (test 0.85 mg/dL 0.57-1.25 wrhd=336) GLUCOSE RANDOM (BEAKER) 167 mg/dL 70-105 (test ypew=914) CALCIUM (BEAKER) (test 8.3 mg/dL 8.4-10.2 kpgy=930) EGFR (BEAKER) (test 94 mL/min/1.73 sq m ESTIMATED GFR IS NOT izan=7123) ACCURATE CREATININE CLEARANCE IN PREDICTING GLOMERULAR FILTRATION RATE. ESTIMATED GFR IS NOT APPLICABLE FOR DIALYSIS PATIENTS. POCT-GLUCOSE [id number] 23:08:00 Test Item Value Reference Range Comments POC-GLUCOSE METER (BEAKER) 284 mg/dL 70-[address] [facility] [address] [facility] (test dxwu=6461) [facility] [address] POCT-GLUCOSE [id number] 20:20:00 Test Item Value Reference Range Comments POC-GLUCOSE METER (BEAKER) 185 mg/dL 70-[address] [facility] [address] (test izhd=1246) [facility] [address] BLOOD GAS, [id number] 20:05:00 Test Item Value Reference Range Comments PH ARTERIAL (BEAKER) (test clea=820) 7.48 7.35-7.45 PCO2 ARTERIAL (BEAKER) (test cqzo=326) 38 mmHg 35-45 PO2 ARTERIAL (BEAKER) (test wtjs=412) 83 mmHg 80-90 O2 SATURATION ARTERIAL (BEAKER) (test krdq=116) 97.1 % 96.0-97.0 HCO3 ARTERIAL (BEAKER) (test awcj=250) 28 mmol/L 21-29 BASE EXCESS ARTERIAL (BEAKER) (test lovf=087) 4.0 mmol/L -2.0-3.0 PATIENT TEMPERATURE (BEAKER) (test llwo=6317) 36.3 C FIO2 (BEAKER) (test iwnz=5131) 21.0 % HEPATITIS B SURFACE [id number] 19:10:00 Test Item Value Reference Range Comments HEPATITIS B SURFACE ANTIBODY (BEAKER) (test < mIU/mL <8.0 rmvj=159) VITAMIN D, [id number] 19:08:00 Test Item Value Reference Range Comments VITAMIN D 25-OH (BEAKER) (test qtqo=0869) 6.6 ng/mL 6.6-49.9 Effective 07/04/2017: Reference Range ChangeNew: 6.6-49.9 ng/mL Previous: 13.0 -47.8 ng/mLRecommended Vitamin D Target Range: 30.0-40.0 ng/mLCARCINOEMBRYONIC ANTIGEN (CEA)2018-12-19 19:07:00 Test Item Value Reference Range Comments CARCINOEMBRYONIC ANTIGEN (BEAKER) (test ccbv=966) 1.9 ng/mL 0.0-5.0 HEPATITIS B SURFACE [id number] 19:07:00 Test Item Value Reference Range Comments HEPATITIS B SURFACE ANTIGEN (2) (BEAKER) (test Nonreactive Nonreactive cpoy=5202) HEPATITIS B CORE ANTIBODY, [id number] 19:07:00 Test Item Value Reference Range Comments HEPATITIS B CORE IGM ANTIBODY (BEAKER) (test Nonreactive Nonreactive fuvb=428) HEPATITIS A ANTIBODY, [id number] 19:07:00 Test Item Value Reference Range Comments HEPATITIS A IGM ANTIBODY (BEAKER) (test Nonreactive Nonreactive kfck=082) [id number] 18:59:00 Test Item Value Reference Range Comments PROSTATE SPECIFIC ANTIGEN (BEAKER) (test qpba=060) 0.5 ng/mL 0.0-4.0 HIV-1 ANTIGEN WITH HIV-1/2 [id number] 18:59:00 Test Item Value Reference Range Comments HIV-1 ANTIGEN WITH HIV 1\T\2 ANTIBODY (2) Nonreactive Nonreactive (BEAKER) (test reuk=1611) [id number] 18:58:00 Test Item Value Reference Range Comments TRANSFERRIN (BEAKER) (test ssoo=284) 288 mg/dL 174-382 [id number] 18:22:00 Test Item Value Reference Range Comments THYROID STIMULATING HORMONE (BEAKER) (test 5.24 uIU/mL 0.35-4.94 lqfs=092) [id number] 18:19:00 Test Item Value Reference Range Comments T4 TOTAL (BEAKER) (test jyui=069) 6.9 ug/dL 4.9-11.7 URIC [id number] 18:01:00 Test Item Value Reference Range Comments URIC ACID (BEAKER) (test aese=118) 4.7 mg/dL 2.6-7.2 [id number] 18:01:00 Test Item Value Reference Range Comments MAGNESIUM (BEAKER) (test cjnl=047) 1.7 mg/dL 1.6-2.6 [id number] 18:01:00 Test Item Value Reference Range Comments PHOSPHORUS (BEAKER) (test cesr=302) 2.6 mg/dL 2.3-4.7 LIPID [id number] 18:01:00 Test Item Value Reference Range Comments TRIGLYCERIDES (BEAKER) (test task=174) 47 mg/dL CHOLESTEROL (BEAKER) (test xyhl=843) 104 mg/dL HDL CHOLESTEROL (BEAKER) (test uegm=792) 33 mg/dL LDL CHOLESTEROL CALCULATED (BEAKER) (test 62 mg/dL aqjc=127) Triglyceride Reference Range: Low Risk <150 Borderline [...] Range Comments GAMMA GLUTAMYL TRANSFERASE (BEAKER) (test irfk=165) 24 U/L 9-64 [id number] 18:00:00 Test Item Value Reference Range Comments ETHANOL (BEAKER) (test dwyt=850) < mg/dL <=10 [id number] 12:48:00 Test Item Value Reference Range Comments D-DIMER QUANTITATIVE (BEAKER) (test viup=079) 6.75 MG/L FEU <0.50 Intended Use: The D-Dimer Assay can be used to aid in the diagnosis of Deep Vein Thrombosis (DVT) and Pulmonary Embolism Disease (PED).In patients with low pre-test probability, various studies concerning STA Liatest D-dimer test have reported that with a cutoff value of 0.50 MG/L FEU, the Negative Predictive Value (NPV) regarding the exclusion of thrombosis is within 95-100% range.[id number] 12:41:00 Test Item Value Reference Range Comments PARTIAL THROMBOPLASTIN TIME (BEAKER) (test 35.4 seconds 22.5-36.0 kztr=099) PROTHROMBIN TIME/[id number] 12:39:00 Test Item Value Reference Range Comments PROTIME (BEAKER) (test wxel=439) 14.9 seconds 11.7-14.7 INR (BEAKER) (test bplx=107) 1.2 <=5.9 RECOMMENDED COUMADIN/WARFARIN INR THERAPY RANGESSTANDARD DOSE: 2.0 - 3.0 Includes: PROPHYLAXIS forvenous thrombosis, systemic embolization; TREATMENT for venous thrombosis and/or pulmonary embolus.HIGH RISK: Target INR is 2.5-3.5 for patients with mechanical heart valves.POCT-GLUCOSE [id number] 11:36:00 Test Item Value Reference Range Comments POC-GLUCOSE METER (BEAKER) 267 mg/dL 70-110 TESTED AT [address] (test xojp=0412) [facility] [address] POCT-GLUCOSE [id number] 10:02:00 Test Item Value Reference Range Comments POC-GLUCOSE METER (BEAKER) 249 mg/dL 70-110 TESTED AT [address] (test xgiw=3702) [place] [id number] MISCELLANEOUS LAB [id number] 07:59:00 Test Item Value Reference Range Comments SCAN RESULT (test mulk=2345211) POCT-GLUCOSE [id number] 07:50:00 Test Item Value Reference Range Comments POC-GLUCOSE METER (BEAKER) 228 mg/dL 70-110 TESTED AT [address] (test vyov=7043) [facility] [address] HEPATIC FUNCTION [id number] 06:21:00 Test Item Value Reference Range Comments TOTAL PROTEIN (BEAKER) (test dpll=745) 6.8 gm/dL 6.0-8.3 ALBUMIN (BEAKER) (test sgmo=9010) 2.8 g/dL 3.5-5.0 BILIRUBIN TOTAL (BEAKER) (test fveg=202) 0.9 mg/dL 0.2-1.2 BILIRUBIN DIRECT (BEAKER) (test keag=170) 0.5 mg/dL 0.1-0.5 ALKALINE PHOSPHATASE (BEAKER) (test igll=787) 117 U/L 40-150 AST (SGOT) (BEAKER) (test pxzn=804) 47 U/L 5-34 ALT (SGPT) (BEAKER) (test wawu=397) 18 U/L 6-55 BASIC METABOLIC [id number] 06:21:00 Test Item Value Reference Range Comments SODIUM (BEAKER) (test 136 meq/L 136-145 knus=204) POTASSIUM (BEAKER) (test 3.8 meq/L 3.5-5.1 mbam=256) CHLORIDE (BEAKER) (test 104 meq/L 98-107 uaru=260) CO2 (BEAKER) (test 26 meq/L 22-29 mdjt=882) BLOOD UREA NITROGEN 7 mg/dL 7-21 (BEAKER) (test svtp=435) CREATININE (BEAKER) (test 0.84 mg/dL 0.57-1.25 qjbh=729) GLUCOSE RANDOM (BEAKER) 152 mg/dL 70-105 (test atrc=806) CALCIUM (BEAKER) (test 8.4 mg/dL 8.4-10.2 bote=742) EGFR (BEAKER) (test 95 mL/min/1.73 sq m ESTIMATED GFR IS NOT rmad=3196) ACCURATE CREATININE CLEARANCE IN PREDICTING GLOMERULAR FILTRATION RATE. ESTIMATED GFR IS NOT APPLICABLE FOR DIALYSIS PATIENTS. CBC (HEMOGRAM ONLY)2018-12-19 06:02:00 Test Item Value Reference Range Comments WHITE BLOOD CELL COUNT (BEAKER) (test peik=556) 5.3 K/ L 3.5-10.5 RED BLOOD CELL COUNT (BEAKER) (test bkwu=660) 4.18 M/ L 4.63-6.08 HEMOGLOBIN (BEAKER) (test cmrj=259) 8.2 GM/DL 13.7-17.5 HEMATOCRIT (BEAKER) (test utce=900) 28.9 % 40.1-51.0 MEAN CORPUSCULAR VOLUME (BEAKER) (test ojhi=042) 69.1 fL 79.0-92.2 MEAN CORPUSCULAR HEMOGLOBIN (BEAKER) (test 19.6 pg 25.7-32.2 ypdc=621) MEAN CORPUSCULAR HEMOGLOBIN CONC (BEAKER) (test 28.4 GM/DL 32.3-36.5 xuqq=542) RED CELL DISTRIBUTION WIDTH (BEAKER) (test 21.5 % 11.6-14.4 guob=329) PLATELET COUNT (BEAKER) (test kpla=790) 130 K/CU MM 150-450 MEAN PLATELET VOLUME (BEAKER) (test ftrc=547) 9.9 fL 9.4-12.4 NUCLEATED RED BLOOD CELLS (BEAKER) (test 0 /100 WBC 0-0 ccmc=063) POCT-GLUCOSE [id number] 21:21:00 Test Item Value Reference Range Comments POC-GLUCOSE METER (BEAKER) 213 mg/dL 70-[address] [facility] [address] (test yrjk=2455) [facility] [address] MR, ABDOMEN, [id number] 19:09:00Addendum BeginsREPORT STATUS:A Account Review Specialist error in the third 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 It should read: Questionable small nonocclusive thrombus in the high SUPERIOR mesenteric vein. Signed: Roe Solorzano MDReport Verified Date/Time: 12/18/2018 19:09:20 Reading Location: [facility] C013 CT Body Reading RoomAddendum EndsFINAL [...] MDReport Verified Date/Time: 12/17/2018 10:57:37 Reading Location: [facility] C013Y CT Body Reading Room POCT-GLUCOSE [id number] 17:47:00 Test Item Value Reference Range Comments POC-GLUCOSE METER (BEAKER) 199 mg/dL 70-110 TESTED AT [address] (test ryxx=1546) [place] [id number] POCT-GLUCOSE [id number] 12:02:00 Test Item Value Reference Range Comments POC-GLUCOSE METER (BEAKER) 301 mg/dL 70-110 TESTED AT [address] (test rbjd=9578) [place] [id number] HEPATITIS C PCR, [id number] 09:48:00 Test Item Value Reference Range Comments HCV NUMERIC RESULT (BEAKER) (test jzas=1013) 048532 IU/mL <15 This test uses a Real-Time Polymerase Chain Reaction (RT-PCR) methodology and was performed using MAJOR Ampliprep/MAJOR TaqMan HCV test kit version 2.0 ( [employer]).Reportable range for this assay is 15 - 100,000, 000 IU per mL (1.18 - 8.00 Log IU/mL).POCT-GLUCOSE [id number] 09:18:00 Test Item Value Reference Range Comments POC-GLUCOSE METER (BEAKER) 284 mg/dL 70-110 TESTED AT [address] (test royn=4680) [place] [id number] HEPATIC FUNCTION [id number] 07:08:00 Test Item Value Reference Range Comments TOTAL PROTEIN (BEAKER) (test tllt=202) 6.5 gm/dL 6.0-8.3 ALBUMIN (BEAKER) (test yvfs=5352) 2.7 g/dL 3.5-5.0 BILIRUBIN TOTAL (BEAKER) (test xtxb=326) 0.9 mg/dL 0.2-1.2 BILIRUBIN DIRECT (BEAKER) (test zcid=302) 0.5 mg/dL 0.1-0.5 ALKALINE PHOSPHATASE (BEAKER) (test iamu=820) 103 U/L 40-150 AST (SGOT) (BEAKER) (test xerd=396) 40 U/L 5-34 ALT (SGPT) (BEAKER) (test ehsa=999) 16 U/L 6-55 BASIC METABOLIC [id number] 07:08:00 Test Item Value Reference Range Comments SODIUM (BEAKER) (test 135 meq/L 136-145 pgwq=726) POTASSIUM (BEAKER) (test 4.0 meq/L 3.5-5.1 itys=253) CHLORIDE (BEAKER) (test 105 meq/L 98-107 ooin=683) CO2 (BEAKER) (test 25 meq/L 22-29 wsjf=294) BLOOD UREA NITROGEN 9 mg/dL 7-21 (BEAKER) (test vzon=584) CREATININE (BEAKER) (test 0.88 mg/dL 0.57-1.25 uvyv=251) GLUCOSE RANDOM (BEAKER) 175 mg/dL 70-105 (test bwzm=841) CALCIUM (BEAKER) (test 8.2 mg/dL 8.4-10.2 iuxf=124) EGFR (BEAKER) (test 90 mL/min/1.73 sq m ESTIMATED GFR IS NOT xmbe=8951) ACCURATE CREATININE CLEARANCE IN PREDICTING GLOMERULAR FILTRATION RATE. ESTIMATED GFR IS NOT APPLICABLE FOR DIALYSIS PATIENTS. CBC (HEMOGRAM ONLY)2018-12-18 06:39:00 Test Item Value Reference Range Comments WHITE BLOOD CELL COUNT (BEAKER) (test ksci=036) 6.9 K/ L 3.5-10.5 RED BLOOD CELL COUNT (BEAKER) (test tiaq=991) 4.15 M/ L 4.63-6.08 HEMOGLOBIN (BEAKER) (test idrx=689) 8.0 GM/DL 13.7-17.5 HEMATOCRIT (BEAKER) (test xtbe=375) 28.7 % 40.1-51.0 MEAN CORPUSCULAR VOLUME (BEAKER) (test qhmy=326) 69.2 fL 79.0-92.2 MEAN CORPUSCULAR HEMOGLOBIN (BEAKER) (test 19.3 pg 25.7-32.2 svhl=888) MEAN CORPUSCULAR HEMOGLOBIN CONC (BEAKER) (test 27.9 GM/DL 32.3-36.5 brum=224) RED CELL DISTRIBUTION WIDTH (BEAKER) (test 21.3 % 11.6-14.4 ldtd=956) PLATELET COUNT (BEAKER) (test apwj=274) 122 K/CU MM 150-450 NUCLEATED RED BLOOD CELLS (BEAKER) (test 0 /100 WBC 0-0 iang=535) POCT-GLUCOSE [id number] 22:48:00 Test Item Value Reference Range Comments POC-GLUCOSE METER (BEAKER) 237 mg/dL 70-[address] [facility] [address] [facility] (test iekz=3565) [facility] [address] ANTI-NUCLEAR ANTIBODY (WILLOW)2018-12-17 11:52:00 Test Item Value Reference Range Comments ANTI-NUCLEAR ANTIBODY (WILLOW) (BEAKER) (test Positive Negative xnsu=938) Test performed by IFA method.WILLOW TITER AND [id number] 11:52:00 Test Item Value Reference Range Comments WILLOW TITER (BEAKER) (test kzip=2501) :160 WILLOW PATTERN (BEAKER) (test hvws=6916) Speckled [id number] 05:45:00 Test Item Value Reference Range Comments MAGNESIUM (BEAKER) (test 2.1 mg/dL 1.6-2.6 Specimen slightly hemolyzed wnlj=699) [id number] 05:45:00 Test Item Value Reference Range Comments PHOSPHORUS (BEAKER) (test 3.0 mg/dL 2.3-4.7 Specimen slightly hemolyzed abtn=723) BASIC METABOLIC [id number] 05:45:00 Test Item Value Reference Range Comments SODIUM (BEAKER) (test 136 meq/L 136-145 xsaq=739) POTASSIUM (BEAKER) (test 4.3 meq/L 3.5-5.1 Specimen slightly jewh=917) hemolyzed CHLORIDE (BEAKER) (test 106 meq/L 98-107 juwt=678) CO2 (BEAKER) (test 25 meq/L 22-29 oyfd=700) BLOOD UREA NITROGEN 15 mg/dL 7-21 (BEAKER) (test byrb=532) CREATININE (BEAKER) (test 1.06 mg/dL 0.57-1.25 Specimen slightly uzcr=135) hemolyzed GLUCOSE RANDOM (BEAKER) 222 mg/dL 70-105 (test cayx=124) CALCIUM (BEAKER) (test 8.1 mg/dL 8.4-10.2 sgug=643) EGFR (BEAKER) (test 73 mL/min/1.73 sq m ESTIMATED GFR IS NOT bnwn=2945) ACCURATE CREATININE CLEARANCE IN PREDICTING GLOMERULAR FILTRATION RATE. ESTIMATED GFR IS NOT APPLICABLE FOR DIALYSIS PATIENTS. HEPATIC FUNCTION [id number] 05:45:00 Test Item Value Reference Range Comments TOTAL PROTEIN (BEAKER) (test 6.6 gm/dL 6.0-8.3 Specimen slightly hemolyzed mdsa=153) ALBUMIN (BEAKER) (test 2.6 g/dL 3.5-5.0 Specimen slightly hemolyzed ljyf=4011) BILIRUBIN TOTAL (BEAKER) (test 0.9 mg/dL 0.2-1.2 Specimen slightly hemolyzed sujf=363) BILIRUBIN DIRECT (BEAKER) (test 0.5 mg/dL 0.1-0.5 Specimen slightly hemolyzed fftn=468) ALKALINE PHOSPHATASE (BEAKER) 109 U/L 40-150 (test bghw=422) AST (SGOT) (BEAKER) (test 53 U/L 5-34 Specimen slightly hemolyzed ikjb=424) ALT (SGPT) (BEAKER) (test 21 U/L 6-55 Specimen slightly hemolyzed uwcw=229) CBC W/PLT COUNT & AUTO [id number] 04:48:00 Test Item Value Reference Range Comments WHITE BLOOD CELL COUNT 8.1 K/ L 3.5-10.5 (BEAKER) (test muzo=385) RED BLOOD CELL COUNT (BEAKER) 4.33 M/ L 4.63-6.08 (test dtyn=737) HEMOGLOBIN (BEAKER) (test 8.3 GM/DL 13.7-17.5 nkrz=608) HEMATOCRIT (BEAKER) (test 29.9 % 40.1-51.0 qvmn=188) MEAN CORPUSCULAR VOLUME 69.1 fL 79.0-92.2 (BEAKER) (test azps=509) MEAN CORPUSCULAR HEMOGLOBIN 19.2 pg 25.7-32.2 (BEAKER) (test ycgl=366) MEAN CORPUSCULAR HEMOGLOBIN 27.8 GM/DL 32.3-36.5 CONC (BEAKER) (test lsnh=359) RED CELL DISTRIBUTION WIDTH 21.1 % 11.6-14.4 (BEAKER) (test tsel=964) PLATELET COUNT (BEAKER) (test 141 K/CU MM 150-450 evuj=594) MEAN PLATELET VOLUME (BEAKER) fL 9.4-12.4 Unable to report due to (test wdrx=086) abnormal Platelet population distribution. NUCLEATED RED BLOOD CELLS 0 /100 WBC 0-0 (BEAKER) (test zbba=164) NEUTROPHILS RELATIVE PERCENT 70 % (BEAKER) (test xtcl=891) LYMPHOCYTES RELATIVE PERCENT 15 % (BEAKER) (test kwid=921) MONOCYTES RELATIVE PERCENT 9 % (BEAKER) (test zuir=610) EOSINOPHILS RELATIVE PERCENT 6 % (BEAKER) (test ksqq=848) BASOPHILS RELATIVE PERCENT 1 % (BEAKER) (test iqjb=016) NEUTROPHILS ABSOLUTE COUNT 5.60 K/ L 1.78-5.38 (BEAKER) (test cbfb=681) LYMPHOCYTES ABSOLUTE COUNT 1.18 K/ L 1.32-3.57 (BEAKER) (test isll=599) MONOCYTES ABSOLUTE COUNT 0.72 K/ L 0.30-0.82 (BEAKER) (test ojvj=614) EOSINOPHILS ABSOLUTE COUNT 0.46 K/ L 0.04-0.54 (BEAKER) (test qjgh=408) BASOPHILS ABSOLUTE COUNT 0.08 K/ L 0.01-0.08 (BEAKER) (test gblc=997) IMMATURE GRANULOCYTES-RELATIVE 0 % 0-1 PERCENT (BEAKER) (test uoxn=3347) HEPATITIS C [id number] 21:49:00 Test Item Value Reference Range Comments HEPATITIS C ANTIBODY (BEAKER) (test tssd=064) Reactive Nonreactive HEPATITIS A ANTIBODY, [id number] 21:49:00 Test Item Value Reference Range Comments HEPATITIS A IGG ANTIBODY (BEAKER) (test hgei=6291) Reactive Nonreactive ALPHA FETOPROTEIN (AFP), TUMOR [id number] 21:48:00 Test Item Value Reference Range Comments ALPHA-FETOPROTEIN (BEAKER) (test mrjf=4068) 5.3 ng/mL <10.0 HEPATITIS B CORE ANTIBODY, [id number] 21:48:00 Test Item Value Reference Range Comments HEPATITIS B CORE TOTAL ANTIBODY (BEAKER) (test Nonreactive Nonreactive wtjy=569) [id number] 21:13:00 Test Item Value Reference Range Comments FERRITIN (BEAKER) (test hvxr=921) 17 ng/mL 5-275 [id number] 20:56:00 Test Item Value Reference Range Comments ALPHA-1 ANTITRYPSIN (BEAKER) 137.60 mg/dL 90.00-200.00 Specimen slightly hemolyzed (test awtt=539) IRON, TIBC, % SAT. (WITHOUT FERRITIN)2018-12-16 20:55:00 Test Item Value Reference Range Comments IRON (BEAKER) (test zjca=731) 56.0 ug/dL 40.0-160.0 TOTAL IRON BINDING CAPACITY (BEAKER) (test 360 ug/dL 250-450 phxs=241) IRON % SATURATION (2) (BEAKER) (test vdyh=8953) 16 % 20-55 [id number] 20:52:00 Test Item Value Reference Range Comments ETHANOL (BEAKER) (test cbje=838) < mg/dL <=10 HEMOGLOBIN AND [id number] 20:37:00 Test Item Value Reference Range Comments HEMOGLOBIN (BEAKER) (test mlju=636) 9.2 GM/DL 13.7-17.5 HEMATOCRIT (BEAKER) (test aqnl=687) 32.6 % 40.1-51.0 U/S, ABDOMINAL, WITH [id number] 18:22:00Reason for exam:->liver cirrhosis, variceal bleed, please [...] MDReport Verified Date/Time: 12/16/2018 18:22:50 Reading Location: [facility] [id number] Ultrasound Reading Room BASIC METABOLIC [id number] 12:25:00 Test Item Value Reference Range Comments SODIUM (BEAKER) (test 135 meq/L 136-145 hgdu=241) POTASSIUM (BEAKER) (test 4.7 meq/L 3.5-5.1 iumj=549) CHLORIDE (BEAKER) (test 105 meq/L 98-107 ysfr=510) CO2 (BEAKER) (test 25 meq/L 22-29 cvge=141) BLOOD UREA NITROGEN 16 mg/dL 7-21 (BEAKER) (test ugwf=293) CREATININE (BEAKER) (test 1.01 mg/dL 0.57-1.25 ezzv=981) GLUCOSE RANDOM (BEAKER) 162 mg/dL 70-105 (test tfeo=212) CALCIUM (BEAKER) (test 8.1 mg/dL 8.4-10.2 amnq=279) EGFR (BEAKER) (test 77 mL/min/1.73 sq m ESTIMATED GFR IS NOT qxzk=0522) ACCURATE CREATININE CLEARANCE IN PREDICTING GLOMERULAR FILTRATION RATE. ESTIMATED GFR IS NOT APPLICABLE FOR DIALYSIS PATIENTS. HEMOGLOBIN AND [id number] 12:06:00 Test Item Value Reference Range Comments HEMOGLOBIN (BEAKER) (test ztiv=514) 8.6 GM/DL 13.7-17.5 HEMATOCRIT (BEAKER) (test bymp=328) 31.4 % 40.1-51.0 HEMOGLOBIN AND [id number] 08:52:00 Test Item Value Reference Range Comments HEMOGLOBIN (BEAKER) (test jipk=916) 8.7 GM/DL 13.7-17.5 HEMATOCRIT (BEAKER) (test eobd=113) 30.9 % 40.1-51.0 CALCIUM, [id number] 05:54:00 Test Item Value Reference Range Comments CALCIUM IONIZED (BEAKER) (test xbdr=332) 1.08 mmol/L 1.12-1.27 PH, BLOOD (BEAKER) (test ciai=9595) 7.34 [id number] 05:50:00 Test Item Value Reference Range Comments PHOSPHORUS (BEAKER) (test taqf=236) 3.4 mg/dL 2.3-4.7 [id number] 05:50:00 Test Item Value Reference Range Comments MAGNESIUM (BEAKER) (test wayv=631) 1.6 mg/dL 1.6-2.6 BASIC METABOLIC [id number] 05:50:00 Test Item Value Reference Range Comments SODIUM (BEAKER) (test 138 meq/L 136-145 puxg=220) POTASSIUM (BEAKER) (test 5.4 meq/L 3.5-5.1 vqwq=341) CHLORIDE (BEAKER) (test 108 meq/L 98-107 jqno=699) CO2 (BEAKER) (test 22 meq/L 22-29 zxhv=974) BLOOD UREA NITROGEN 14 mg/dL 7-21 (BEAKER) (test vxbu=159) CREATININE (BEAKER) (test 1.00 mg/dL 0.57-1.25 qbhl=929) GLUCOSE RANDOM (BEAKER) 144 mg/dL 70-105 (test wlkl=766) CALCIUM (BEAKER) (test 8.1 mg/dL 8.4-10.2 eade=335) EGFR (BEAKER) (test 78 mL/min/1.73 sq m ESTIMATED GFR IS NOT lyoz=7085) ACCURATE CREATININE CLEARANCE IN PREDICTING GLOMERULAR FILTRATION RATE. ESTIMATED GFR IS NOT APPLICABLE FOR DIALYSIS PATIENTS. CBC W/PLT COUNT & AUTO [id number] 05:44:00 Test Item Value Reference Range Comments WHITE BLOOD CELL COUNT 7.2 K/ L 3.5-10.5 (BEAKER) (test dshr=922) RED BLOOD CELL COUNT (BEAKER) 4.48 M/ L 4.63-6.08 (test bvog=759) HEMOGLOBIN (BEAKER) (test 8.7 GM/DL 13.7-17.5 gkdb=266) HEMATOCRIT (BEAKER) (test 31.4 % 40.1-51.0 tfzv=647) MEAN CORPUSCULAR VOLUME 70.1 fL 79.0-92.2 (BEAKER) (test hdjf=271) MEAN CORPUSCULAR HEMOGLOBIN 19.4 pg 25.7-32.2 (BEAKER) (test cqtu=546) MEAN CORPUSCULAR HEMOGLOBIN 27.7 GM/DL 32.3-36.5 CONC (BEAKER) (test amct=300) RED CELL DISTRIBUTION WIDTH 21.0 % 11.6-14.4 (BEAKER) (test ytpd=698) PLATELET COUNT (BEAKER) (test 135 K/CU MM 150-450 pszy=136) MEAN PLATELET VOLUME (BEAKER) fL 9.4-12.4 Unable to report due to (test laxz=102) abnormal Platelet population distribution. NUCLEATED RED BLOOD CELLS 0 /100 WBC 0-0 (BEAKER) (test upva=525) NEUTROPHILS RELATIVE PERCENT 72 % (BEAKER) (test dlqe=012) LYMPHOCYTES RELATIVE PERCENT 12 % (BEAKER) (test avey=491) MONOCYTES RELATIVE PERCENT 11 % (BEAKER) (test rhrt=272) EOSINOPHILS RELATIVE PERCENT 4 % (BEAKER) (test euxy=095) BASOPHILS RELATIVE PERCENT 1 % (BEAKER) (test adfn=837) NEUTROPHILS ABSOLUTE COUNT 5.15 K/ L 1.78-5.38 (BEAKER) (test xvyr=954) LYMPHOCYTES ABSOLUTE COUNT 0.89 K/ L 1.32-3.57 (BEAKER) (test gyqn=818) MONOCYTES ABSOLUTE COUNT 0.76 K/ L 0.30-0.82 (BEAKER) (test suem=503) EOSINOPHILS ABSOLUTE COUNT 0.29 K/ L 0.04-0.54 (BEAKER) (test cceg=633) BASOPHILS ABSOLUTE COUNT 0.06 K/ L 0.01-0.08 (BEAKER) (test vang=975) IMMATURE GRANULOCYTES-RELATIVE 0 % 0-1 PERCENT (BEAKER) (test gvkw=6745) HEMOGLOBIN AND [id number] 00:02:00 Test Item Value Reference Range Comments HEMOGLOBIN (BEAKER) (test obub=814) 7.8 GM/DL 13.7-17.5 HEMATOCRIT (BEAKER) (test plyt=459) 28.0 % 40.1-51.0 POCT-GLUCOSE [id number] 23:24:00 Test Item Value Reference Range Comments POC-GLUCOSE METER (BEAKER) 168 mg/dL 70-[address] [facility] [address] [facility] (test jlis=9275) [facility] [address] RAD, CHEST, 1 VIEW, NON [id number] 23:07:00Reason for exam:->NG tube placementShould this be [...] distention of the stomach. Signed: Elmer Haque Verified Date/Time: 12/15/2018 23:07:08 Reading Location: [facility] C013Y CT Body Reading Room HEMOGLOBIN AND [id number] 20:12:00 Test Item Value Reference Range Comments HEMOGLOBIN (BEAKER) (test kzje=977) 7.4 GM/DL 13.7-17.5 HEMATOCRIT (BEAKER) (test goez=035) 26.7 % 40.1-51.0 RAD, CHEST, 1 VIEW, NON [id number] 18:43:00Reason for exam:->s/p intubationShould this be performed [...] MDReport Verified Date/Time: 12/15/2018 18:43:24 Reading Location: [address] Reading Room Electronically signed by: JORGE MTZ M.D. on 06:43 PMBASI METABOLIC [id number] 14:38:00 Test Item Value Reference Range Comments SODIUM (BEAKER) (test 137 meq/L 136-145 dqio=938) POTASSIUM (BEAKER) (test 4.8 meq/L 3.5-5.1 Specimen slightly urhe=132) hemolyzed CHLORIDE (BEAKER) (test 105 meq/L 98-107 ivib=940) CO2 (BEAKER) (test 25 meq/L 22-29 oene=771) BLOOD UREA NITROGEN 11 mg/dL 7-21 (BEAKER) (test ahhx=744) CREATININE (BEAKER) (test 0.84 mg/dL 0.57-1.25 Specimen slightly spkt=334) hemolyzed GLUCOSE RANDOM (BEAKER) 114 mg/dL 70-105 (test cucb=471) CALCIUM (BEAKER) (test 8.5 mg/dL 8.4-10.2 syyp=972) EGFR (BEAKER) (test 95 mL/min/1.73 sq m ESTIMATED GFR IS NOT ekxy=6454) ACCURATE CREATININE CLEARANCE IN PREDICTING GLOMERULAR FILTRATION RATE. ESTIMATED GFR IS NOT APPLICABLE FOR DIALYSIS PATIENTS. Specimen slightly ictericCOMPREHENSIVE METABOLIC [id number] 14:38:00 Test Item Value Reference Range Comments TOTAL PROTEIN (BEAKER) 7.2 gm/dL 6.0-8.3 Specimen slightly (test sjgp=435) hemolyzed ALBUMIN (BEAKER) (test 2.9 g/dL 3.5-5.0 Specimen slightly sscg=1295) hemolyzed ALKALINE PHOSPHATASE 125 U/L 40-150 (BEAKER) (test oior=673) BILIRUBIN TOTAL (BEAKER) 2.5 mg/dL 0.2-1.2 Specimen slightly (test ftpg=854) hemolyzed SODIUM (BEAKER) (test 137 meq/L 136-145 larp=992) POTASSIUM (BEAKER) (test 4.8 meq/L 3.5-5.1 Specimen slightly ldqo=504) hemolyzed CHLORIDE (BEAKER) (test 105 meq/L 98-107 leda=247) CO2 (BEAKER) (test 25 meq/L 22-29 smfq=786) BLOOD UREA NITROGEN 11 mg/dL 7-21 (BEAKER) (test lrpj=585) CREATININE (BEAKER) (test 0.84 mg/dL 0.57-1.25 Specimen slightly sjzc=311) hemolyzed GLUCOSE RANDOM (BEAKER) 114 mg/dL 70-105 (test naoc=058) CALCIUM (BEAKER) (test 8.5 mg/dL 8.4-10.2 pslj=830) AST (SGOT) (BEAKER) (test 56 U/L 5-34 Specimen slightly vpbs=234) hemolyzed ALT (SGPT) (BEAKER) (test 21 U/L 6-55 Specimen slightly nakn=946) hemolyzed EGFR (BEAKER) (test 95 mL/min/1.73 sq m ESTIMATED GFR IS NOT jjsr=9149) ACCURATE CREATININE CLEARANCE IN PREDICTING GLOMERULAR FILTRATION RATE. ESTIMATED GFR IS NOT APPLICABLE FOR DIALYSIS PATIENTS. Specimen slightly ictericCBC (HEMOGRAM ONLY)2018-12-15 14:35:00 Test Item Value Reference Range Comments WHITE BLOOD CELL COUNT (BEAKER) (test lgpy=650) 5.6 K/ L 3.5-10.5 RED BLOOD CELL COUNT (BEAKER) (test kbcr=884) 4.43 M/ L 4.63-6.08 HEMOGLOBIN (BEAKER) (test aebq=387) 8.5 GM/DL 13.7-17.5 HEMATOCRIT (BEAKER) (test oixx=726) 30.7 % 40.1-51.0 MEAN CORPUSCULAR VOLUME (BEAKER) (test vspu=093) 69.3 fL 79.0-92.2 MEAN CORPUSCULAR HEMOGLOBIN (BEAKER) (test 19.2 pg 25.7-32.2 rqlc=111) MEAN CORPUSCULAR HEMOGLOBIN CONC (BEAKER) (test 27.7 GM/DL 32.3-36.5 johc=357) RED CELL DISTRIBUTION WIDTH (BEAKER) (test 20.9 % 11.6-14.4 usfs=091) PLATELET COUNT (BEAKER) (test jszh=167) 150 K/CU MM 150-450 NUCLEATED RED BLOOD CELLS (BEAKER) (test 0 /100 WBC 0-0 hgrc=567) LACTIC ACID, [id number] 14:34:00 Test Item Value Reference Range Comments LACTATE BLOOD VENOUS (2) (BEAKER) (test 1.4 mmol/L 0.5-2.2 qsdt=2477) [id number] 14:34:00 Test Item Value Reference Range Comments FIBRINOGEN LEVEL (BEAKER) (test nytr=303) 164 mg/dl 225-434 PROTHROMBIN [id number] 14:29:00 Test Item Value Reference Range Comments PROTIME (BEAKER) (test yyyo=680) 17.0 seconds 11.7-14.7 INR (BEAKER) (test rcue=687) 1.4 <=5.9 RECOMMENDED COUMADIN/WARFARIN INR THERAPY RANGESSTANDARD DOSE: 2.0 - 3.0 Includes: PROPHYLAXIS forvenous thrombosis, systemic embolization; TREATMENT for venous thrombosis and/or pulmonary embolus.HIGH RISK: Target INR is 2.5-3.5 for patients with mechanical heart valves.[id number] 14:29:00 Test Item Value Reference Range Comments PARTIAL THROMBOPLASTIN TIME (BEAKER) (test 35.0 seconds 22.5-36.0 vcfx=633) [id number] 14:29:00 Test Item Value Reference Range Comments PARTIAL THROMBOPLASTIN TIME (BEAKER) (test 38.1 seconds 22.5-36.0 yfgz=206) PROTHROMBIN [id number] 14:28:00 Test Item Value Reference Range Comments PROTIME (BEAKER) (test ggeq=422) 15.4 seconds 11.7-14.7 INR (BEAKER) (test xexu=364) 1.2 <=5.9 RECOMMENDED COUMADIN/WARFARIN INR THERAPY RANGESSTANDARD DOSE: 2.0 - 3.0 Includes: PROPHYLAXIS forvenous thrombosis, systemic embolization; TREATMENT for venous thrombosis and/or pulmonary embolus.HIGH RISK: Target INR is 2.5-3.5 for patients with mechanical heart valves.HEMOGLOBIN AND [id number] 14 :21:00 Test Item Value Reference Range Comments HEMOGLOBIN (BEAKER) (test vlnb=642) 8.5 GM/DL 13.7-17.5 HEMATOCRIT (BEAKER) (test ekfk=329) 30.7 % 40.1-51.0
--- OUTSIDE RECORDS SUMMARY | 2019-10-19 16:09 | XMS REPORT ---
[...] Problem Coronary artery disease involving I25.10 Active [place] coronary artery of [place] heart, angina presence unspecified Problem Alcohol abuse [...]
--- OUTSIDE RECORDS SUMMARY | 2019-10-19 16:09 | XMS REPORT ---
:1965 Author Organization eClinicalWorks Care Team Providers Name Role Phone Tima Estrada Provider Role Unavailable Allergies No Known Allergies [...] Problem Coronary artery disease involving I25.10 Active [place] coronary artery of [place] heart, angina presence unspecified Problem Alcohol abuse [...] End Status Dosage System Date Date Carvedilol [facility] 45381782417 6.25 MG Orally Active 1 tablet Twice a day Lactulose [facility] 53650285036 10 GM/15ML Active TAKE 30ML BY MOUTH TWICE DAILY. Lasix [facility] 58308057643 20 MG Orally Active 1 tablet Once a day Rifaximin [facility] [address]-86 550 MG Orally December Active 1 tablet Twice a day 2019 Lisinopril [facility] 41498973657 5 MG Orally Once Active 1 tablet a day Tresiba [facility] 12567947301 200 UNIT/ML Active inject 44 FlexTouch Subcutaneous units Once a day Propranolol HCl [facility] 70485109824 20 MG Orally Inactive 1 tablet Once a day on an empty stomach Spironolactone [facility] 32676997119 50 MG Orally December Active 1 tablet Once a day 07, with food 2019 Pantoprazole ND 06054783850 40 MG Orally Active 1 tablet Sodium Once a day Lactulose ND 60016361067 20 GM/30ML December Active 15 ml Orally BID 2019 BD Ultra-Fine ND 77355717740 4mm x 32Gm Jun 30, Active 1 needle Shelby Pen [place] subcutaneously 2018 with once a day Tresiba pen Atorvastatin ND 46479232634 40 MG Orally Active 1 tablet Calcium Once a day Aspir-81 [facility] 66538405298 81 MG Orally Active 1 tablet Once a day Results No Known Results Summary Purpose eClinicalWorks Submission
--- OUTSIDE RECORDS SUMMARY | 2019-10-19 16:09 | XMS REPORT ---
[...] Problem Coronary artery disease involving I25.10 Active [place] coronary artery of [place] heart, angina presence unspecified Problem Alcohol abuse [...]
--- OUTSIDE RECORDS SUMMARY | 2019-10-19 16:09 | XMS REPORT ---
[...] Assessment Coronary artery disease involving I25.10 Active [place] coronary artery of [place] heart, angina presence unspecified Assessment Subclinical hypothyroidism [...] Problem Coronary artery disease involving I25.10 Active [place] coronary artery of [place] heart, angina presence unspecified Problem Alcohol abuse [...] Status Dosage System Date Date Lactulose [facility] 65022918731 20 GM/30ML December Active 15 ml Orally BID 2019 Rifaximin [facility] [address]-66 550 MG Orally December Active 1 tablet Twice a day 2019 Lisinopril ND 66144674091 5 MG Orally Once Active 1 tablet a day BD Ultra-Fine [facility] 45053951403 4mm x 32Gm Jun 30, Active 1 needle Shelby Pen [place] subcutaneously 2018 with once a day Tresiba pen Atorvastatin ND 48948468831 40 MG Orally Active 1 tablet Calcium Once a day Spironolactone ND 42345080022 50 MG Orally December Active 1 tablet Once a day , with food 2019 Pantoprazole [facility] 43851367908 40 MG Orally Active 1 tablet Sodium Once a day Lactulose [facility] 81530666568 10 GM/15ML Active TAKE 30ML BY MOUTH TWICE DAILY. Tresiba FlexTouch [facility] 50606948475 200 UNIT/ML Active inject 44 Subcutaneous units Once a day Propranolol HCl ND 32331882385 20 MG Orally Active 1 tablet Once a day on an empty stomach Aspir-[address] [facility] 54565429654 81 MG Orally Active 1 tablet Once a day Lasix [facility] 97918858322 20 MG Orally Active 1 tablet Once a day Results No Known Results Summary Purpose eClinicalWorks Submission
[2019-10-19] MEDS ORDERED: NA CHLORIDE 0.9% 1,000 ML ONE (16:37)
[2019-10-19] MEDS ORDERED: ONDANSETRON 4 MG/2 ML VIAL ONE ×4 (16:37→20:40)
[2019-10-19] MEDS ORDERED: INSULIN -REGULAR HUMAN 50 UNIT/0.5 ML ML ONE (16:38)
[2019-10-19 16:39] LABS: Absolute Lymphocytes (CBC) 1.7 K/uL (0.7-4.9); Basophils % 0.6 % (0-1.3); Hematocrit 34.4 % (39.6-49.0); Lymphocytes % 20.2 % (15.3-44.8); MPV 8.8 fL (7.6-11.3); RBC Red Blood Cell Count 5.12 M/uL (4.33-5.43)
--- NOTE | 2019-10-19 17:31 | RAD REPORT ---
EXAM DESCRIPTION: CT - Head Brain Wo Cont - 10/19/2019 5:17 pm CLINICAL HISTORY: Alteration of awareness/confusion COMPARISON: 10/15/2019 TECHNIQUE: Computed axial tomography of the head was obtained. IV contrast was not requested. All CT scans are performed using dose optimization technique as appropriate and may include automated exposure control or mA/KV adjustment according to patient size. FINDINGS: An intracranial bleed is not seen . The ventricles are normal in caliber. No extra-axial fluid collection is noted. Fluid within the sinuses/ mastoids is not seen. IMPRESSION: No acute intracranial abnormality is seen. If patient's symptoms persist MRI of the bra in would be recommended.
[2019-10-19 17:33] LABS: Potassium 4.3 mmol/L (3.5-5.1)
[2019-10-19] MEDS ORDERED: MORPHINE 2 MG/ML SYR ONE (18:39)
--- NOTE | 2019-10-19 18:48 | ER ---
Nurse's Notes [facility] Name: Janusz Morris Jr Age: 54 yrs Sex: Male : 1965 Arrival Date: 10/19/2019 Time: 15:53 Bed 13 Private MD: Tima Estrada Diagnosis: Hepatic Encephalopathy, Hyperglycemia, weakness Presentation: 10/19 16:10 Presenting complaint: Patient states: i have nausea and dizziness today, i was here mg2 last Sunday for high blood sugar. i checked my BGL at home and it ws 500 mg/gl. i dont have needle for my fast acting insulin at home. i have taken my long acting insulin this morning. 16:10 Transition of care: patient was not received from another setting of care. Onset of mg2 symptoms was October 19, 2019. Risk Assessment: Do you want to hurt yourself or someone else? Patient reports no desire to harm self or others. Initial Sepsis Screen: Does the patient meet any 2 criteria? No. Patient's initial sepsis screen is negative. Does the patient have a suspected source of infection? No. Patient's initial sepsis screen is negative. Care prior to arrival: None. 16:10 Method Of Arrival: Wheelchair mg2 16:10 Acuity: AJ 3 mg2 Historical: - Allergies: 16:44 No Known Allergies; mg2 - Home Meds: 16:44 atorvastatin 40 mg Oral tab 1 tab once daily [Active]; carvedilol 6.25 mg Oral tab 2 mg2 times per day [Active]; furosemide 20 mg Oral tab 1 tab once daily [Active]; lactulose 10 gram/15 mL Oral soln 60 mL 3 times per day [Active]; lisinopril 5 mg Oral tab 1 tab once daily [Active]; pantoprazole 40 mg Oral TbEC 1 tab 2 times per day [Active]; spironolactone 50 mg Oral tab 1 tab once daily [Active]; - PMHx: 16:44 Alcoholism; Cirrhosis; Diabetes - NIDDM; esophageal varices; GI Bleed; Hypertension; mg2 - Immunization history:: Flu vaccine is not up to date. - Coronavirus screen:: The patient has NOT traveled to [place], [place], or [place] in the past 14 days. - Social history:: Smoking status: Patient/guardian denies using tobacco, Patient/guardian denies using alcohol, street drugs, IV drugs. - Ebola Screening: : No symptoms or risks identified at this time. Screenin:06 Abuse screen: Denies threats or abuse. Denies injuries from another. Nutritional mg2 screening: No deficits noted. Tuberculosis screening: No symptoms or risk factors identified. Fall Risk IV access (20 points). Assessment: 17:05 General: Appears in no apparent distress. comfortable, Behavior is calm, cooperative. mg2 Pain: Denies pain. Neuro: Level of Consciousness is awake, alert, obeys commands, Oriented to person, place, time, situation. Neuro: Reports dizziness. Cardiovascular: Capillary refill < 3 seconds Patient's skin is warm and dry. Respiratory: Airway is patent Respiratory effort is even, unlabored, Respiratory pattern is regular, symmetrical. GI: Reports nausea. : No signs and/or symptoms were reported regarding the genitourinary system. EENT: No signs and/or symptoms were reported regarding the EENT system. Derm: Skin is intact, is healthy with good turgor, Skin is pink, warm \T\ dry. normal. Musculoskeletal: Circulation, motion, and sensation intact. Capillary refill < 3 seconds. 17:27 Reassessment: Patient appears in no apparent distress at this time. Patient and/or mg2 family updated on plan of care and expected duration. Pain level reassessed. Patient is alert, oriented x 3, equal unlabored respirations, skin warm/dry/pink. 19:13 Reassessment: Patient appears in no apparent distress at this time. Patient and/or mg2 family updated on plan of care and expected duration. Pain level reassessed. Patient is alert, oriented x 3, equal unlabored respirations, skin warm/dry/pink. advised for admission, patient agreed. 20:54 Reassessment: [place] (son)-[phone], Lilian (daughter) [phone]. mg2 Vital Signs: 16:10 BP 127 / 69; Pulse 65; Resp 18; Temp 97.9; Pulse Ox 100% on R/A; Weight 79.83 kg; mg2 Height 5 ft. 2 in. (157.48 cm); Pain 0/10; 17:28 Pulse 59; Resp 17; Pulse Ox 100% on R/A; mg2 17:37 BP 116 / 77; mg2 18:30 BP 125 / 63; Pulse 58; Resp 17; Temp 98.0(O); Pulse Ox 100% on R/A; mh5 19:14 BP 118 / 78; Pulse 62; Resp 18; Pulse Ox 98% on R/A; mg2 20:09 BP 136 / 72; Pulse 66; Resp 18; Temp 98; Pulse Ox 100% on R/A; mg2 16:10 Body Mass Index 32.19 (79.83 kg, 157.48 cm) mg2 ED Course: 15:53 Patient arrived in ED. as 15:53 Emiliano Estrada MD is Private Physician. as 15:53 Tima Estrada DO is Private Physician. as 16:03 Gurinder Fuentes MD is Attending Physician. kdr 16:14 Ayaz Wright RN is Primary Nurse. mg2 16:20 Inserted saline lock: 22 gauge in left forearm, using aseptic technique. Blood mg2 collected. 16:42 Triage completed. mg2 16:42 Arm band placed on. mg2 16:46 No provider procedures requiring assistance completed. mg2 17:06 Patient has correct armband on for positive identification. Pulse ox on. NIBP on. Door mg2 closed. Warm blanket given. Pillow given. 17:09 CT Head Brain wo Cont In Process Unspecified. EDMS 17:09 CT completed. Patient moved back from CT. mw3 18:44 Bobby Molina MD is Hospitalizing Provider. kdr 20:50 Patient admitted, IV remains in place. mg2 Administered Medications: 16:25 Drug: Insulin Regular Human 6 units {Co-Signature: ph (Madie Moon RN).} Route: IVP; mg2 Site: left forearm; 17:27 Follow up: Response: No adverse reaction; Blood sugar is lowered mg2 16:25 Drug: NS 0.9% 1000 ml Route: IV; Rate: 1000 ml; Site: left forearm; mg2 20:51 Follow up: Response: No adverse reaction; IV Status: Completed infusion; IV Intake: mg2 1000ml 16:25 Drug: Zofran 4 mg Route: IVP; Site: left forearm; mg2 17:27 Follow up: Response: No adverse reaction mg2 17:27 Drug: Zofran 4 mg Route: IVP; Site: left forearm; mg2 17:46 Follow up: Response: No adverse reaction mg2 18:47 Drug: Zofran 4 mg Route: IVP; Site: left forearm; mg2 19:33 Follow up: Response: No adverse reaction mg2 19:04 Drug: Lactulose 30 grams Volume: 45 ml; Route: PO; mg2 19:33 Follow up: Response: No adverse reaction mg2 Intake: 20:51 IV: 1000ml; Total: 1000ml. mg2 Outcome: 18:47 Decision to Hospitalize by Provider. kdr 20:50 Admitted to Tele accompanied by tech, via stretcher, room 403, with chart, Report mg2 called to JADA Gilbert 20:50 Condition: stable 20:50 Instructed on the need for admit, Demonstrated understanding of instructions. 20:56 Patient left the ED. mg2 Signatures: Dispatcher [employer] EDMS Gurinder Fuentes MD MD kdr Martinez, Amelia as Martinez, [facility] Ayaz Wright RN RN mg2 Katlyn Navarro 3 Madie Moon RN ph Corrections: (The following items were deleted from the chart) 16:43 16:42 BP 127 / 79; Pulse 65bpm; Resp 18bpm; Pulse Ox 100% RA; Temp 97.9F; 79.83 kg; mg2 Height 5 ft. 2 in.; BMI: 32.1; Pain 0/10; mg2
--- NOTE | 2019-10-19 18:48 | EDPHYS ---
Physician Documentation [facility] Name: Janusz Morris Jr Age: 54 yrs Sex: Male : 1965 Arrival Date: 10/19/2019 Time: 15:53 Bed 13 Private MD: Sean [facility] ED Physician Gurinder Fuentes HPI: 10/20 13:06 This 54 yrs old Male presents to ER via Wheelchair with complaints of High kdr Blood Sugar - >500, Dizziness, Weakness. 13:06 The patient was brought by family for elevated blood glucose and altered mental status kdr and slurred speech. He has been to the ED here recently for similar issues and was discharged. He has not improved and his BG has continued to be elevated. Onset: The symptoms/episode began/occurred gradually, 1 week(s) ago. Severity of symptoms: At their worst the symptoms were moderate in the emergency department the symptoms have improved mildly. The patient has experienced similar episodes in the past, multiple times. The patient has been recently seen by a physician: The patient has been recently seen at the [facility] Emergency Department, last week. Historical: - Allergies: 10/19 16:44 No Known Allergies; mg2 - Home Meds: 16:44 atorvastatin 40 mg Oral tab 1 tab once daily [Active]; carvedilol 6.25 mg Oral tab 2 mg2 times per day [Active]; furosemide 20 mg Oral tab 1 tab once daily [Active]; lactulose 10 gram/15 mL Oral soln 60 mL 3 times per day [Active]; lisinopril 5 mg Oral tab 1 tab once daily [Active]; pantoprazole 40 mg Oral TbEC 1 tab 2 times per day [Active]; spironolactone 50 mg Oral tab 1 tab once daily [Active]; - PMHx: 16:44 Alcoholism; Cirrhosis; Diabetes - NIDDM; esophageal varices; GI Bleed; Hypertension; mg2 - Immunization history:: Flu vaccine is not up to date. - Coronavirus screen:: The patient has NOT traveled to [place], [place], or [place] in the past 14 days. - Social history:: Smoking status: Patient/guardian denies using tobacco, Patient/guardian denies using alcohol, street drugs, IV drugs. - Ebola Screening: : No symptoms or risks identified at this time. ROS: 10/20 13:06 Constitutional: Negative for fever, chills, and weight loss, Eyes: Negative for injury, kdr pain, redness, and discharge, ENT: Negative for injury, pain, and discharge, Neck: Negative for injury, pain, and swelling, Cardiovascular: Negative for chest pain, palpitations, and edema, Respiratory: Negative for shortness of breath, cough, wheezing, and pleuritic chest pain, Abdomen/GI: Negative for abdominal pain, nausea, vomiting, diarrhea, and constipation, Back: Negative for injury and pain, : Negative for injury, bleeding, discharge, and swelling, MS/Extremity: Negative for injury and deformity, Skin: Negative for injury, rash, and discoloration, Psych: Negative for depression, anxiety, suicide ideation, homicidal ideation, and hallucinations, Allergy/Immunology: Negative for hives, rash, and allergies, Hematologic/Lymphatic: Negative for swollen nodes, abnormal bleeding, and unusual bruising. Neuro: Positive for altered mental status, speech changes, weakness, confusion, Negative for gait disturbance, headache, hearing loss, loss of consciousness, numbness, seizure activity, syncope, near syncope, tingling, tinnitus, tremor. Exam: 13:06 Constitutional: This is a well developed, well nourished patient who is awake, alert, kdr and in no acute distress. Head/Face: Normocephalic, atraumatic. Eyes: Pupils equal round and reactive to light, extra-ocular motions intact. Lids and lashes normal. Conjunctiva and sclera are non-icteric and not injected. Cornea within normal limits. Periorbital areas with no swelling, redness, or edema. Neck: Trachea midline, no thyromegaly or masses palpated, and no cervical lymphadenopathy. Supple, full range of motion without nuchal rigidity, or vertebral point tenderness. No Meningismus. Chest/axilla: Normal chest wall appearance and motion. Nontender with no deformity. No lesions are appreciated. Cardiovascular: Regular rate and rhythm with a normal S1 and S2. No gallops, murmurs, or rubs. Normal PMI, no JVD. No pulse deficits. Respiratory: Lungs have equal breath sounds bilaterally, clear to auscultation and percussion. No rales, rhonchi or wheezes noted. No increased work of breathing, no retractions or nasal flaring. Abdomen/GI: Soft, non-tender, with normal bowel sounds. No distension or tympany. No guarding or rebound. No evidence of tenderness throughout. Back: No spinal tenderness. No costovertebral tenderness. Full range of motion. Skin: Warm, dry with normal turgor. Normal color with no rashes, no lesions, and no evidence of cellulitis. MS/ Extremity: Pulses equal, no cyanosis. Neurovascular intact. Full, normal range of motion. Psych: Awake, alert, with orientation to person, place and time. Behavior, mood, and affect are within normal limits. 13:06 Neuro: Orientation: appropriate for stated age, Mentation: lucid, able to follow commands, slow to respond, confused, Cerebellar function: no acute changes. Vital Signs: 10/19 16:10 BP 127 / 69; Pulse 65; Resp 18; Temp 97.9; Pulse Ox 100% on R/A; Weight 79.83 kg; mg2 Height 5 ft. 2 in. (157.48 cm); Pain 0/10; 17:28 Pulse 59; Resp 17; Pulse Ox 100% on R/A; mg2 17:37 BP 116 / 77; mg2 18:30 BP 125 / 63; Pulse 58; Resp 17; Temp 98.0(O); Pulse Ox 100% on R/A; mh5 19:14 BP 118 / 78; Pulse 62; Resp 18; Pulse Ox 98% on R/A; mg2 20:09 BP 136 / 72; Pulse 66; Resp 18; Temp 98; Pulse Ox 100% on R/A; mg2 16:10 Body Mass Index 32.19 (79.83 kg, 157.48 cm) mg2 MDM: 18:47 Patient medically screened. kdr 10/20 13:06 Data reviewed: vital signs, nurses notes, lab test result(s), EKG, radiologic studies. kdr Counseling: I had a detailed discussion with the patient and/or guardian regarding: the historical points, exam findings, and any diagnostic results supporting the discharge/admit diagnosis, lab results, radiology results, the need for further work-up and treatment in the hospital. Physician consultation: Bobby Molina MD regarding admission, to the telemetry unit. patient's condition, need to evaluate the patient as soon as possible. 10/19 16:06 Order name: CBC with Diff; Complete Time: 13:04 kdr 10/19 16:06 Order name: Chem 7; Complete Time: 18:25 kdr 10/19 16:25 Order name: Glucose, Ancillary Testing; Complete Time: 18:25 EDMS 10/19 16:48 Order name: CBC Smear Scan; Complete Time: 13:04 EDMS 10/19 16:48 Order name: AMMONIA; Complete Time: 18:25 kdr 10/19 17:37 Order name: Glucose, Ancillary Testing; Complete Time: 18:25 EDMS 10/19 17:56 Order name: Urine Dipstick--Ancillary (enter results); Complete Time: 13:04 ms 10/19 18:32 Order name: ETOH Level; Complete Time: 13: [facility] 10/19 18:57 Order name: CBC with Automated Diff; Complete Time: 13: EDTN 10/19 18:57 Order name: Liver (Hepatic) Function; Complete Time: 13: EDMS 10/19 18:58 Order name: Ammonia; Complete Time: 13:04 EDMS 10/19 19:32 Order name: Troponin (emerg Dept Use Only) mg2 10/19 19:48 Order name: Glucose, Ancillary Testing; Complete Time: 13: EDMS 10/19 19:56 Order name: Troponin (Emerg Dept Use Only); Complete Time: 13: [facility] 10/19 16:06 Order name: Urine Dipstick-Ancillary (obtain specimen); Complete Time: 17:46 [facility] 10/19 16:48 Order name: CT Head Brain wo Cont; Complete Time: 18: [facility] 10/19 18:40 Order name: EKG Strip; Complete Time: 18:47 [facility] 10/19 18:57 Order name: CONS Pharmacy Consult EDTN 10/19 18:57 Order name: Clear Liquid EDTN 10/19 18:57 Order name: EKG Electrocardiogram EDTN 10/19 18:57 Order name: Chest Single View; Complete Time: 13:04 EDMS Administered Medications: 10/19 16:25 Drug: Insulin Regular Human 6 units {Co-Signature: ph (Madie Moon RN).} Route: IVP; mg2 Site: left forearm; 17:27 Follow up: Response: No adverse reaction; Blood sugar is lowered mg2 16:25 Drug: NS 0.9% 1000 ml Route: IV; Rate: 1000 ml; Site: left forearm; mg2 20:51 Follow up: Response: No adverse reaction; IV Status: Completed infusion; IV Intake: mg2 1000ml 16:25 Drug: Zofran 4 mg Route: IVP; Site: left forearm; mg2 17:27 Follow up: Response: No adverse reaction mg2 17:27 Drug: Zofran 4 mg Route: IVP; Site: left forearm; mg2 17:46 Follow up: Response: No adverse reaction mg2 18:47 Drug: Zofran 4 mg Route: IVP; Site: left forearm; mg2 19:33 Follow up: Response: No adverse reaction mg2 19:04 Drug: Lactulose 30 grams Volume: 45 ml; Route: PO; mg2 19:33 Follow up: Response: No adverse reaction mg2 Disposition: 10/19/19 18:47 Hospitalization ordered by Bobby Molina for Inpatient Admission. Preliminary diagnosis is Hepatic Encephalopathy, Hyperglycemia, weakness. - Bed requested for Telemetry/MedSurg (Inpatient). - Status is Inpatient Admission. mg2 - Condition is Fair. - Problem is an acute exacerbation. - Symptoms are unchanged. UTI on Admission? No Signatures: Dispatcher [employer] EDMS Gurinder Fuentes MD MD kdr Cande Pack RN RN yAaz Wright RN RN [facility] Madie Moon RN ph Corrections: (The following items were deleted from the chart) 20:02 18:47 Hospitalization Ordered by Bobby Molina MD for Inpatient Admission. cg Preliminary diagnosis is Hepatic Encephalopathy, Hyperglycemia, weakness. Bed requested for Telemetry/MedSurg (Inpatient). Status is Inpatient Admission. Condition is Fair. Problem is an acute exacerbation. Symptoms are unchanged. UTI on Admission? No. kdr 20:56 20:02 10/19/2019 18:47 Hospitalization Ordered by Bobby Molina MD for Inpatient mg2 Admission. Preliminary diagnosis is Hepatic Encephalopathy, Hyperglycemia, weakness. Bed requested for Telemetry/MedSurg (Inpatient). Status is Inpatient Admission. Condition is Fair. Problem is an acute exacerbation. Symptoms are unchanged. UTI on Admission? No. cg
[2019-10-19] MEDS ORDERED: LACTULOSE 20 GM/30 ML UCUP ONE (18:53)
[2019-10-19] MEDS ORDERED: ONDANSETRON 4 MG/2 ML VIAL IV PRN (18:53)
[2019-10-19] MEDS ORDERED: D5 0.45 NS 1,000 ML IV SCH (19:00)
--- NOTE | 2019-10-19 19:00 | P.HP ---
Certification for Inpatient With expected LOS: <2 Midnights Patient will require the following post-hospital care: None Practitioner: I am a practitioner with admitting privileges, knowledge of patient current condition, hospital course, and medical plan of care. Services: Services provided to patient in accordance with Admission requirements found in Title 42 Section 412.3 of the Code of Federal Regulations Patient History Date of Service: 10/19/19 Reason for admission: Altered mental status History of Present Illness: Patient is 54 years of age with a history of alcoholic liver cirrhosis admitted with acute onset of mental status and mild expressive dysphagia in addition he was complaining of some epigastric pain for the past 2 weeks denies any nausea vomiting diarrhea hematemesis or melenic stools family members present at the bedside he was unable to express clearly according to them his thought process was fine is interpretation of his prior symptoms she does not drink anymore prior history of bleeding Allergies No Known Allergies Allergy (Verified 07/28/19 21:59) Home Medications: Furosemide [Lasix] 20 mg PO DAILY 08/10/18 Pantoprazole [Protonix Tab*] 40 mg PO BID 08/10/18 Spironolactone [Aldactone*] 50 mg PO DAILY 08/10/18 Atorvastatin Calcium [Lipitor] 40 mg PO BEDTIME 05/23/19 Insulin Degludec [Tresiba Flextouch U-200] 36 units SQ BEDTIME 06/13/19 carvediloL [Carvedilol] 6.25 mg PO BID 07/18/19 Insulin -Regular Human [Novolin -R*] See Protocol SQ ACHS 30 Days #1 vial Lactulose [Cephulac*] 30 ml PO TID #90 ucup 08/02/19 Rifaximin [Xifaxan] 550 mg PO BID #60 tablet 08/02/19 - Past Medical/Surgical History Diabetic: Yes -: Liver cirrhosis -: Esophageal varices -: GI bleed -: Insulin dependent Diabetes mellitus -: Hypertension -: Liver Cancer -: Banding ligation -: Heart cath no stent - Family History Father -: Heart disease, Lung disease, Diabetes Mother -: Heart disease, Diabetes Sister -: Diabetes - Social History Alcohol use: Yes CD- Drugs: No Caffeine use: Yes Review of Systems 10-point ROS is otherwise unremarkable General: Weakness Gastrointestinal: Abdominal Pain Physical Examination - Vital Signs Temperature: 97.9 F Blood Pressure: 127/69 - Physical Exam General: Alert, Oriented x1 HEENT: Atraumatic, Other Neck: Supple Respiratory: Clear to auscultation bilaterally, Normal air movement Cardiovascular: No edema, Regular rate/rhythm, Normal S1 S2 Gastrointestinal: Normal bowel sounds, Soft and benign, Non-distended, No tenderness Musculoskeletal: No clubbing, No swelling Integumentary: No rashes Neurological: Normal strength at 5/5 x4 extr, Other (Patient is alert cooperative moving all his extremities oriented x1 slight expressive dysphagia) - Studies Laboratory Data (last 24 hrs) 10/19/19 16:30: Sodium 137, Potassium 4.3, BUN 25 H, Creatinine 1.53 H, Glucose 395 H 10/19/19 16:30: WBC 8.6 D, Hgb 10.8 L, Hct 34.4 L, Plt Count 143 L Assessment and Plan - Problems (Diagnosis) (1) Hepatic encephalopathy Current Visit: No Status: Acute Plan: Patient is 54 years of age admitted with altered mental status mild expressive dysphasia disorientation. His neurological exam is normal renal function is abnormal ammonia elevated patient apparently is compliant with his medications at home patient has chronic microcytic anemia head CT was negative admit for observation (2) Abdominal pain Current Visit: Yes Status: Acute Plan: Patient is been complaining this chronic abdominal pain for the past few weeks as not very clear denies any chest pain denies any radiation atypical cardiac pain EKGs normal continue to monitor Qualifiers: Abdominal location: epigastric Qualified Code(s): R10.13 - Epigastric pain Discharge Plan: Home Plan to discharge in: 24 Hours - Advance Directives Does patient have a Living Will: Yes Does patient have a Durable POA for Healthcare: Yes
[2019-10-19 19:41] LABS: Anisocytosis 1+; Blood Morphology Comment NOTED (NOT SEEN); Platelet Estimate ADEQ; Poikilocytosis 1+; Urine White Blood Cell Casts OK
[2019-10-19 20:24] LABS: Urine Blood TRACE (NEG); Urine Glucose 2+ (NEG); Urine Protein NEGATIVE (NEG)
[2019-10-19] MEDS ORDERED: INSULIN -REGULAR HUMAN 50 UNIT/0.5 ML ML SQ SCH (21:00)
[2019-10-19] MEDS: THIAMINE 200 MG/2 ML INJ IVP SCH (21:40)
[2019-10-19] MEDS: NA CHLORIDE 0.9% 1,000 ML IV SCH (22:20)
[2019-10-20] VITALS: BMI 32.1
[2019-10-20 04:55] LABS: Absolute Lymphocytes (CBC) 1.8 K/uL (0.7-4.9); Basophils % 1.1 % (0-1.3); Hematocrit 31.7 % (39.6-49.0); Lymphocytes % 25.9 % (15.3-44.8); MPV 9.3 fL (7.6-11.3); RBC Red Blood Cell Count 4.72 M/uL (4.33-5.43)
[2019-10-20 05:35] LABS: Albumin 2.9 g/dL (3.4-5.0); Bilirubin Direct 0.3 mg/dL (0-0.2); Bilirubin Total 0.8 mg/dL (0.2-1.0)
--- NOTE | 2019-10-20 06:57 | EKG ---
Test Date: 2019-10-19 Test Time: 18:44:01 Gas Distribution Supervisor: MEASUREMENT RESULTS: Intervals: Rate: 59 MI: 148 QRSD: 76 QT: 450 QTc: 445 Peel: P: 28 MI: 148 QRS: -10 T: 37 INTERPRETIVE STATEMENTS: Sinus bradycardia Otherwise normal ECG Compared to ECG 10/15/2019 17:10:15 Sinus rhythm no longer present Electronically Signed On 10-20-19 06:56:31 MARKETING PROGRAMS MANAGER by Yon Gallo
[2019-10-20] MEDS ORDERED: SODIUM CHLORIDE 0.9% 10ML INJ IV PRN (07:56)
[2019-10-20] MEDS: INSULIN -REGULAR HUMAN 50 UNIT/0.5 ML ML SQ SCH ×2 (08:00→11:40)
[2019-10-20] MEDS ORDERED: GLUCAGON 1 MG/VIAL IM PRN (08:09)
[2019-10-20] MEDS ORDERED: D50W 25 GM/50 ML SYRINGE/VIAL IV PRN (08:09)
--- NOTE | 2019-10-20 08:18 | RAD REPORT ---
EXAM DESCRIPTION: Stephon Single View10/20/2019 6:01 am CLINICAL HISTORY: Cough COMPARISON: October 15, 2019 FINDINGS: The lungs appear clear of acute infiltrate. The heart is normal size IMPRESSION: No acute abnormalities displayed
[2019-10-20] MEDS: THIAMINE 200 MG/2 ML INJ IVP SCH (08:41)
[2019-10-20] MEDS: NA CHLORIDE 0.9% 1,000 ML IV SCH (08:43)
[2019-10-20 08:49] VITALS: O2SAT 100
[2019-10-20] MEDS ORDERED: PANTOPRAZOLE 40 MG INJ IVP SCH (09:00)
[2019-10-20] MEDS ORDERED: carvediloL 6.25 MG TAB PO SCH (09:00)
[2019-10-20] MEDS ORDERED: LACTULOSE 20 GM/30 ML UCUP PO SCH (09:00)
[2019-10-20] MEDS ORDERED: SPIRONOLACTONE 25 MG TABLET PO SCH (09:00)
--- NOTE | 2019-10-20 09:06 | P.DS ---
Admission Date: 10/20/19 Discharge Date: 10/20/19 Primary Care Provider: Dr. Tima Estrada Disposition: ROUTINE DISCHARGE Discharge Condition: GOOD Reason for Admission: Altered mental status Consultations: None Procedures: CXR: COMPARISON: October 15, 2019 FINDINGS: The lungs appear clear of acute infiltrate. The heart is normal size IMPRESSION: No acute abnormalities displayed CT Head: COMPARISON: 10/15/2019 TECHNIQUE: Computed axial tomography of the head was obtained. IV contrast was not requested. All CT scans are performed using dose optimization technique as appropriate and may include automated exposure control or mA/KV adjustment according to patient size. FINDINGS: An intracranial bleed is not seen . The ventricles are normal in caliber. No extra-axial fluid collection is noted. Fluid within the sinuses/ mastoids is not seen. IMPRESSION: No acute intracranial abnormality is seen Medical Problem list: Altered mental status secondary to hepatic encephalopathy with history of alcoholic liver cirrhosis Hypertension Diabetes mellitus type 2 insulin-dependent GERD Acute on chronic renal disease stage III Acute on chronic anemia with iron deficiency Brief History of Present Illness: 54-year-old male with history of diabetes, hypertension, alcoholic liver cirrhosis and GERD. Patient presented with altered mental status. CT head unremarkable. Chest x-ray unremarkable. Patient found to have hepatic encephalopathy. Patient was admitted for further evaluation and treatment. Hospital Course: Patient presented with altered mental status secondary to hepatic encephalopathy. Patient with history of alcoholic liver cirrhosis. Ammonia level was elevated. CT head unremarkable. Chest x-ray unremarkable. Patient was started on lactulose. Ammonia improved. Patient now back to baseline mentation. At discharge his lactulose will be increased to maintain 3-4 bowel movements per day. At discharge he will continue with lactulose 20 mg 3 times a day. Education on the importance of maintaining 3-4 bowel movements per day will be provided. Education on alcoholic cirrhosis and hepatic encephalopathy will be provided. Recommend follow up with GI as an outpatient to further address. Home health and physical therapy will be arranged prior to discharge to help with medications and education. Fall precautions in place. Alcohol cessation education will be provided. Patient with diabetes mellitus type 2, insulin-dependent. Patient stable this time. At discharge he will continue with his regular regimen of Tresiba 44 units sc at bedtime. Recommend to maintain blood sugars less 140 fasting and less than 200 after meals. Further adjustment can be done by his PCP. Patient with hypertension. This has remained stable. At discharge he will continue with lisinopril 5 mg daily and carvedilol 6.25 mg 1 pill twice daily. Recommend to maintain blood pressures less 150/80. Further adjustment can be done by his PCP. Patient with acute on chronic renal disease stage III. Patient received IV fluids. This improved. At discharge he will continue with a 1500 cc per day fluid restriction and low-salt diet. He is to monitor his weight daily. If his weight increases by more than 5 lb he is to contact his PCP for further recommendation. Patient is taking diuretic therapy Aldactone 50 mg daily and Lasix 20 mg daily for his alcoholic cirrhosis. This can be monitored closely by his PCP. Recommend to recheck lab-BMP in 1 week. Future medications will need to be renally dosed and monitored closely. Further adjustment can be done by his PCP. Patient with GERD. At discharge he will continue with Protonix 40 mg daily. Patient with anemia of chronic disease with iron deficiency. At discharge he will continue with iron 325 mg daily. Patient will also continue with thiamine 100 mg daily. Recommend to recheck CBC and iron level in 2-4 weeks to monitor his progress. Recommend follow up with GI to further monitor and address. Vital Signs/Physical Exam: Temp Pulse Resp BP Pulse Ox 97.3 F 62 14 161/74 H 100 10/20/19 08:00 10/20/19 08:43 10/20/19 08:00 10/20/19 08:43 10/20/19 08:00 General: Alert, In no apparent distress, Oriented x3, Cooperative HEENT: Atraumatic Neck: Supple Respiratory: Clear to auscultation bilaterally, Normal air movement Cardiovascular: Normal pulses, Regular rate/rhythm Gastrointestinal: Normal bowel sounds, Soft and benign, Non-distended, No tenderness, No masses, No rebound, No guarding Musculoskeletal: No erythema, No tenderness, No warmth Integumentary: No tenderness/swelling, No erythema, No warmth, No cyanosis Neurological: Normal speech, Normal strength at 5/5 x4 extr, Normal tone, Normal affect Laboratory Data at Discharge: WBC 7.0 K/uL (4.3-10.9) D 10/20/19 04:09 Hgb 10.1 g/dL (13.6-17.9) L 10/20/19 04:09 Hct 31.7 % (39.6-49.0) L 10/20/19 04:09 Plt Count 108 K/uL (152-406) L D 10/20/19 04:09 Sodium 137 mmol/L (136-145) 10/19/19 16:30 Potassium 4.3 mmol/L (3.5-5.1) 10/19/19 16:30 BUN 25 mg/dL (7-18) H 10/19/19 16:30 Creatinine 1.53 mg/dL (0.55-1.3) H 10/19/19 16:30 Glucose 395 mg/dL (74-106) H 10/19/19 16:30 Total Bilirubin 0.8 mg/dL (0.2-1.0) 10/20/19 04:09 AST 56 U/L (15-37) H 10/20/19 04:09 ALT 61 U/L (12-78) 10/20/19 04:09 Alkaline Phosphatase 157 U/L (45-117) H 10/20/19 04:09 Home Medications: Furosemide [Lasix] 20 mg PO DAILY 08/10/18 Pantoprazole [Protonix Tab*] 40 mg PO DAILY 08/10/18 Spironolactone [Aldactone*] 50 mg PO DAILY 08/10/18 Atorvastatin Calcium [Lipitor] 40 mg PO BEDTIME 05/23/19 Insulin Degludec [Tresiba Flextouch U-200] 44 units SQ BEDTIME 06/13/19 carvediloL [Carvedilol] 6.25 mg PO BID 07/18/19 Insulin -Regular Human [Novolin -R*] See Protocol SQ ACHS 10/19/19 Lisinopril [Zestril] 5 mg PO DAILY 10/19/19 Ferrous Sulfate [Iron] 325 mg PO DAILY #90 tablet 10/20/19 Lactulose [Cephulac*] 30 ml PO TID #1 bottle 10/20/19 Thiamine HCl 100 mg PO DAILY #90 tablet 10/20/19 New Medications: Ferrous Sulfate [Iron] 325 mg PO DAILY #90 tablet Lactulose [Cephulac*] 30 ml PO TID #1 bottle Thiamine HCl 100 mg PO DAILY #90 tablet Patient Discharge Instructions: 1. Recommend follow up with his PCP in 1 week to follow up this hospitalization. 2. Patient presented with altered mental status secondary to hepatic encephalopathy. Patient with history of alcoholic liver cirrhosis. Ammonia level was elevated. CT head unremarkable. Chest x- ray unremarkable. Patient was started on lactulose. Ammonia improved. Patient now back to baseline mentation. At discharge his lactulose will be increased to maintain 3-4 bowel movements per day. At discharge he will continue with lactulose 20 mg 3 times a day. Education on the importance of maintaining 3-4 bowel movements per day will be provided. Education on alcoholic cirrhosis and hepatic encephalopathy will be provided. Recommend follow up with GI as an outpatient to further address. Home health and physical therapy will be arranged prior to discharge to help with medications and education. Fall precautions in place. Alcohol cessation education will be provided. 3. Patient with diabetes mellitus type 2, insulin-dependent. Patient stable this time. At discharge he will continue with his regular regimen of Tresiba 44 units sc at bedtime. Recommend to maintain blood sugars less 140 fasting and less than 200 after meals. Further adjustment can be done by his PCP. 4. Patient with hypertension. This has remained stable. At discharge he will continue with lisinopril 5 mg daily and carvedilol 6.25 mg 1 pill twice daily. Recommend to maintain blood pressures less 150/80. Further adjustment can be done by his PCP. 5. Patient with acute on chronic renal disease stage III. Patient received IV fluids. This improved. At discharge he will continue with a 1500 cc per day fluid restriction and low-salt diet. He is to monitor his weight daily. If his weight increases by more than 5 lb he is to contact his PCP for further recommendation. Patient is taking diuretic therapy Aldactone 50 mg daily and Lasix 20 mg daily for his alcoholic cirrhosis. This can be monitored closely by his PCP. Recommend to recheck lab- BMP in 1 week. Future medications will need to be renally dosed and monitored closely. Further adjustment can be done by his PCP. 6. Patient with GERD. At discharge he will continue with Protonix 40 mg daily. 7. Patient with anemia of chronic disease with iron deficiency. At discharge he will continue with iron 325 mg daily. Patient will also continue with thiamine 100 mg daily. Recommend to recheck CBC and iron level in 2-4 weeks to monitor his progress. Recommend follow up with GI to further monitor and address. Diet: ADA Activity: Fall precautions Time spent managing pt's care (in minutes): 55
[2019-10-20 12:11] VITALS: BP 151/68; TEMP 97
[2019-10-20] MEDS ORDERED: ATORVASTATIN 40 MG TAB PO SCH (21:00)
[2019-10-21] MEDS ORDERED: INSULIN -REGULAR HUMAN 50 UNIT/0.5 ML ML SQ SCH (07:30)
[2019-10-21] MEDS ORDERED: INSULIN GLARGINE 100 UNITS/ML SQ SCH (08:00)
== END 2019-10-20 12:52 | disposition home health service (06) | DRG 433 ==
LOC: SUPCPDRO 15:52 → ER 15:52 → ERHOLD 18:54 → 4TH 20:47 → OBSVTOIN 10-20 08:24
PROVIDERS: ADMIT Internal Medicine Sleep Medicine; ATTEND Internal Medicine Sleep Medicine
DX: K70.40 Alcoholic hepatic failure without coma (principal); N17.9 Acute kidney failure, unspecified; I12.9 Hypertensive chronic kidney disease with stage 1 through stage 4 chronic kidney disease, or unspecified chronic kidney disease; E11.22 Type 2 diabetes mellitus with diabetic chronic kidney disease; N18.3 Chronic kidney disease, stage 3 (moderate); K21.9 Gastro-esophageal reflux disease without esophagitis; D50.9 Iron deficiency anemia, unspecified
CPT/HCPCS: 36415; 70450; 71045; 80048; 80076; 80320; 81003; 82140; 82947; 84484; 85025; 93005; 94760; 96361; 96374; 96375; 97112; 97116; 97161; 99285; C9113; G0378; J2270; J2405; J3411; J7030

== ENCOUNTER 2019-10-28 09:40 | Observation (INO) | payer MEDICAID ==
--- OUTSIDE RECORDS SUMMARY | 2019-10-28 09:46 | XMS REPORT ---
:1965 [facility] Address [address] [place] [address] Care Team Providers Name Role Phone BRAVO [...] MDReport Verified Date/Time: 10/06/2019 15:38:31 Reading Location: [address] O49 -CREATININE 2019-10-03 11:35:00 Test Item Value Reference Range Comments POC-CREATININE (BEAKER) (test 1.3 mg/dL 0.6-1.[address] [facility]-KG 2457 bqou=3711) [facility] [address] POC-EGFR (BEAKER) (test 57 mL/min/1.73M2 bvog=9183) ANG, EMBOLIZATION, EXTENSIVE - [id number] 16:43:00Reason for Exam:-> liver cancerFINAL REPORT Mesenteric [...] loss: &lt ; 5 cc. Specimen: None. form tamping machine operator: Samantha. Study Assistant: Gaudencio. Fluoroscopy Time: 14.5 min. Dose [...] and a 0.035 inch J-wire. A 5 Tu[place]uan sheath was placed. Diagnostic mesenteric angiogram was performed to access vessel patency and exclude arterio- portal shunting. A 5 [place] Ramírez catheter which was used to select the SMA and celiac trunkfor DSA runs. A 3 Tu[place] microcatheter was advanced coaxially through the Ramírez [...] MDReport Verified Date/Time: 06/18/2019 16:43:18 Reading Location: [place] [address] Angio Body Reading Room COMPREHENSIVE METABOLIC [id number] 10:36:00 Test Item Value Reference Range Comments TOTAL PROTEIN (BEAKER) 6.5 gm/dL 6.0-8.3 (test cjho=579) ALBUMIN (BEAKER) (test 3.0 g/dL 3.5-5.0 fdyh=8731) ALKALINE PHOSPHATASE 203 U/L 40-150 (BEAKER) (test xecn=931) BILIRUBIN TOTAL (BEAKER) 0.8 mg/dL 0.2-1.2 (test gxvl=359) SODIUM (BEAKER) (test 135 meq/L 136-145 vory=677) POTASSIUM (BEAKER) (test 4.1 meq/L 3.5-5.1 hdkr=154) CHLORIDE (BEAKER) (test 106 meq/L 98-107 crnn=221) CO2 (BEAKER) (test 24 meq/L 22-29 hdor=205) BLOOD UREA NITROGEN 15 mg/dL 7-21 (BEAKER) (test umka=063) CREATININE (BEAKER) (test 1.17 mg/dL 0.57-1.25 ffxm=794) GLUCOSE RANDOM (BEAKER) 221 mg/dL 70-105 (test aeft=564) CALCIUM (BEAKER) (test 9.2 mg/dL 8.4-10.2 wvhc=602) AST (SGOT) (BEAKER) (test 78 U/L 5-34 vefa=634) ALT (SGPT) (BEAKER) (test 50 U/L 6-55 uriw=105) EGFR (BEAKER) (test 64 mL/min/1.73 sq m ESTIMATED GFR IS NOT poxy=7088) ACCURATE CREATININE CLEARANCE IN PREDICTING GLOMERULAR FILTRATION RATE. ESTIMATED GFR IS NOT APPLICABLE FOR DIALYSIS PATIENTS. PROTHROMBIN [id number] 10:19:00 Test Item Value Reference Range Comments PROTIME (BEAKER) (test mfrq=349) 14.7 seconds 11.9-14.2 INR (BEAKER) (test grja=125) 1.2 <=5.9 Effective 02/19/2019: PT Reference Range ChangeNew: 11.9-14.2 Previous: 11.7- 14.7RECOMMENDED COUMADIN/WARFARIN INR THERAPY RANGESSTANDARD DOSE: 2.0-3.0 Includes: PROPHYLAXIS for venous thrombosis, systemic embolization; TREATMENT for venous thrombosis and/or pulmonary embolus.HIGH RISK: Target INR is2.5-3.5 for patients wiht mechanical heart valves.[id number] 10:19:00 Test Item Value Reference Range Comments PARTIAL THROMBOPLASTIN TIME (BEAKER) (test 35.6 seconds 22.5-36.0 kxzy=160) CBC W/PLT COUNT & AUTO [id number] 10:16:00 Test Item Value Reference Range Comments WHITE BLOOD CELL COUNT (BEAKER) (test pjpc=811) 6.4 K/ L 3.5-10.5 RED BLOOD CELL COUNT (BEAKER) (test dkng=737) 3.84 M/ L 4.63-6.08 HEMOGLOBIN (BEAKER) (test ivus=761) 8.1 GM/DL 13.7-17.5 HEMATOCRIT (BEAKER) (test vslg=783) 27.4 % 40.1-51.0 MEAN CORPUSCULAR VOLUME (BEAKER) (test ighx=263) 71.4 fL 79.0-92.2 MEAN CORPUSCULAR HEMOGLOBIN (BEAKER) (test 21.1 pg 25.7-32.2 xaae=173) MEAN CORPUSCULAR HEMOGLOBIN CONC (BEAKER) (test 29.6 GM/DL 32.3-36.5 ehso=357) RED CELL DISTRIBUTION WIDTH (BEAKER) (test 16.7 % 11.6-14.4 bskx=822) PLATELET COUNT (BEAKER) (test qoxn=234) 130 K/CU MM 150-450 MEAN PLATELET VOLUME (BEAKER) (test kfxi=107) 9.6 fL 9.4-12.4 NUCLEATED RED BLOOD CELLS (BEAKER) (test 0 /100 WBC 0-0 funf=060) NEUTROPHILS RELATIVE PERCENT (BEAKER) (test 62 % nysk=547) LYMPHOCYTES RELATIVE PERCENT (BEAKER) (test 20 % xwal=546) MONOCYTES RELATIVE PERCENT (BEAKER) (test 9 % btzt=812) EOSINOPHILS RELATIVE PERCENT (BEAKER) (test 8 % tniq=442) BASOPHILS RELATIVE PERCENT (BEAKER) (test 1 % vcru=428) NEUTROPHILS ABSOLUTE COUNT (BEAKER) (test 3.97 K/ L 1.78-5.38 uqbl=182) LYMPHOCYTES ABSOLUTE COUNT (BEAKER) (test 1.27 K/ L 1.32-3.57 gabt=646) MONOCYTES ABSOLUTE COUNT (BEAKER) (test 0.54 K/ L 0.30-0.82 pxul=512) EOSINOPHILS ABSOLUTE COUNT (BEAKER) (test 0.52 K/ L 0.04-0.54 dayv=430) BASOPHILS ABSOLUTE COUNT (BEAKER) (test 0.08 K/ L 0.01-0.08 mese=491) IMMATURE GRANULOCYTES-RELATIVE PERCENT (BEAKER) 0 % 0-1 (test hrhc=1867) MR, ABDOMEN, [id number] 17:19:00Include Abdominal VesselsFINAL REPORT MR of the [...] Verified Date/Time: 04/09/2019 17:19:22 Reading Location: [address] Radiology Reading Room Electronically signed by: TERESE JORDAN M.D. on04/09/2019 05:19 PMALPHA FETOPROTEIN (AFP), TUMOR [id number] 14: 34:00 Test Item Value Reference Range Comments ALPHA-FETOPROTEIN (BEAKER) (test whms=9448) 32.9 ng/mL <10.0 COMPREHENSIVE METABOLIC [id number] 14:18:00 Test Item Value Reference Range Comments TOTAL PROTEIN (BEAKER) 8.2 gm/dL 6.0-8.3 (test cmoq=518) ALBUMIN (BEAKER) (test 3.5 g/dL 3.5-5.0 teoq=2069) ALKALINE PHOSPHATASE 216 U/L 40-150 (BEAKER) (test ijzt=870) BILIRUBIN TOTAL (BEAKER) 1.4 mg/dL 0.2-1.2 (test tphl=849) SODIUM (BEAKER) (test 132 meq/L 136-145 lxfb=193) POTASSIUM (BEAKER) (test 4.5 meq/L 3.5-5.1 xglh=827) CHLORIDE (BEAKER) (test 102 meq/L 98-107 gwdq=248) CO2 (BEAKER) (test 24 meq/L 22-29 fzjt=777) BLOOD UREA NITROGEN 12 mg/dL 7-21 (BEAKER) (test ifmd=993) CREATININE (BEAKER) (test 1.16 mg/dL 0.57-1.25 gdxc=933) GLUCOSE RANDOM (BEAKER) 249 mg/dL 70-105 (test zgnj=710) CALCIUM (BEAKER) (test 9.3 mg/dL 8.4-10.2 emvt=133) AST (SGOT) (BEAKER) (test 81 U/L 5-34 taha=155) ALT (SGPT) (BEAKER) (test 40 U/L 6-55 wsgc=023) EGFR (BEAKER) (test 65 mL/min/1.73 sq m ESTIMATED GFR IS NOT tuup=0405) ACCURATE CREATININE CLEARANCE IN PREDICTING GLOMERULAR FILTRATION RATE. ESTIMATED GFR IS NOT APPLICABLE FOR DIALYSIS PATIENTS. BILIRUBIN, [id number] 14:18:00 Test Item Value Reference Range Comments BILIRUBIN DIRECT (BEAKER) (test twbm=519) 0.8 mg/dL 0.1-0.5 PROTHROMBIN [id number] 14:05:00 Test Item Value Reference Range Comments PROTIME (BEAKER) (test fgug=256) 14.9 seconds 11.9-14.2 INR (BEAKER) (test vlpa=489) 1.2 <=5.9 Effective 02/19/2019: PT Reference Range ChangeNew: 11.9-14.2 Previous: 11.7- 14.7RECOMMENDED COUMADIN/WARFARIN INR THERAPY RANGESSTANDARD DOSE: 2.0-3.0 Includes: PROPHYLAXIS for venous thrombosis, systemic embolization; TREATMENT for venous thrombosis and/or pulmonary embolus.HIGH RISK: Target INR is2.5-3.5 for patients wiht mechanical heart valves.[id number] 13:58:00 Test Item Value Reference Range Comments POC-CREATININE (BEAKER) 0.9 mg/dL 0.6-1.3 TESTED AT [address] (test qhta=6715) [place] [address] POC-EGFR (BEAKER) (test 88 mL/min/1.73M2 ymux=3395) CBC W/PLT COUNT & AUTO [id number] 13:56:00 Test Item Value Reference Range Comments WHITE BLOOD CELL COUNT (BEAKER) (test vjxz=534) 5.9 K/ L 3.5-10.5 RED BLOOD CELL COUNT (BEAKER) (test kcxb=247) 4.75 M/ L 4.63-6.08 HEMOGLOBIN (BEAKER) (test qnxy=875) 10.7 GM/DL 13.7-17.5 HEMATOCRIT (BEAKER) (test weej=777) 35.5 % 40.1-51.0 MEAN CORPUSCULAR VOLUME (BEAKER) (test qbyb=589) 74.7 fL 79.0-92.2 MEAN CORPUSCULAR HEMOGLOBIN (BEAKER) (test 22.5 pg 25.7-32.2 wvfg=962) MEAN CORPUSCULAR HEMOGLOBIN CONC (BEAKER) (test 30.1 GM/DL 32.3-36.5 dlrb=941) RED CELL DISTRIBUTION WIDTH (BEAKER) (test 18.6 % 11.6-14.4 mjzr=557) PLATELET COUNT (BEAKER) (test ylay=410) 157 K/CU MM 150-450 MEAN PLATELET VOLUME (BEAKER) (test ltsq=021) 9.4 fL 9.4-12.4 NUCLEATED RED BLOOD CELLS (BEAKER) (test 0 /100 WBC 0-0 cugj=238) NEUTROPHILS RELATIVE PERCENT (BEAKER) (test 68 % vpsr=326) LYMPHOCYTES RELATIVE PERCENT (BEAKER) (test 19 % nsrk=095) MONOCYTES RELATIVE PERCENT (BEAKER) (test 9 % nhnh=825) EOSINOPHILS RELATIVE PERCENT (BEAKER) (test 3 % usjw=006) BASOPHILS RELATIVE PERCENT (BEAKER) (test 1 % bcqv=715) NEUTROPHILS ABSOLUTE COUNT (BEAKER) (test 4.03 K/ L 1.78-5.38 jdcf=617) LYMPHOCYTES ABSOLUTE COUNT (BEAKER) (test 1.13 K/ L 1.32-3.57 xbdw=776) MONOCYTES ABSOLUTE COUNT (BEAKER) (test 0.52 K/ L 0.30-0.82 kmud=604) EOSINOPHILS ABSOLUTE COUNT (BEAKER) (test 0.20 K/ L 0.04-0.54 waho=752) BASOPHILS ABSOLUTE COUNT (BEAKER) (test 0.05 K/ L 0.01-0.08 ctwt=255) IMMATURE GRANULOCYTES-RELATIVE PERCENT (BEAKER) 0 % 0-1 (test yqkk=0425) HOPE [id number] 08:05:00Reason for exam:->recurrent variceal bleedAddendum BeginsREPORT STATUS:A Addendum: Ultrasound was used to examine the veins the right neck. A patent internal jugular vein was identified and images the patent vein were saved on PACS. Real-time ultrasound guidance was then utilized for access of the internal jugular vein.Signed: Sola Camraillo MDReport Verified Date/Time: 01/20/2019 08:05:45 Reading Location: [address] Radiology Reading RoomAddendum EndsFINAL REPORT Procedure: [...] MDReport Verified Date/Time: 01/01/2019 17:21:51 Reading Location: [place] [id number] Angio Body Reading Room POCT-GLUCOSE [id number] 08:02:00 Test Item Value Reference Range Comments POC-GLUCOSE METER (BEAKER) 187 mg/dL 70-[address] [facility] [address] [facility] (test bvvb=9157) [facility] [address] [id number] 04:17:00 Test Item Value Reference Range Comments PHOSPHORUS (BEAKER) (test dntw=456) 2.9 mg/dL 2.3-4.7 [id number] 04:17:00 Test Item Value Reference Range Comments MAGNESIUM (BEAKER) (test uyhm=332) 1.9 mg/dL 1.6-2.6 COMPREHENSIVE METABOLIC [id number] 04:17:00 Test Item Value Reference Range Comments TOTAL PROTEIN (BEAKER) 7.6 gm/dL 6.0-8.3 (test vqvh=883) ALBUMIN (BEAKER) (test 3.3 g/dL 3.5-5.0 jnoa=8473) ALKALINE PHOSPHATASE 138 U/L 40-150 (BEAKER) (test bect=811) BILIRUBIN TOTAL (BEAKER) 1.0 mg/dL 0.2-1.2 (test mkkh=923) SODIUM (BEAKER) (test 136 meq/L 136-145 wdua=266) POTASSIUM (BEAKER) (test 4.0 meq/L 3.5-5.1 tuji=399) CHLORIDE (BEAKER) (test 105 meq/L 98-107 xiij=734) CO2 (BEAKER) (test 22 meq/L 22-29 trft=491) BLOOD UREA NITROGEN 14 mg/dL 7-21 (BEAKER) (test crim=933) CREATININE (BEAKER) (test 1.11 mg/dL 0.57-1.25 jphz=862) GLUCOSE RANDOM (BEAKER) 173 mg/dL 70-105 (test kqyd=940) CALCIUM (BEAKER) (test 9.1 mg/dL 8.4-10.2 tbwb=739) AST (SGOT) (BEAKER) (test 89 U/L 5-34 ioxy=123) ALT (SGPT) (BEAKER) (test 41 U/L 6-55 ykrb=218) EGFR (BEAKER) (test 69 mL/min/1.73 sq m ESTIMATED GFR IS NOT ustg=2783) ACCURATE CREATININE CLEARANCE IN PREDICTING GLOMERULAR FILTRATION RATE. ESTIMATED GFR IS NOT APPLICABLE FOR DIALYSIS PATIENTS. CBC W/PLT COUNT & AUTO [id number] 03:43:00 Test Item Value Reference Range Comments WHITE BLOOD CELL COUNT (BEAKER) (test mkgz=922) 9.1 K/ L 3.5-10.5 RED BLOOD CELL COUNT (BEAKER) (test hpmb=986) 4.66 M/ L 4.63-6.08 HEMOGLOBIN (BEAKER) (test zxrp=378) 9.1 GM/DL 13.7-17.5 HEMATOCRIT (BEAKER) (test tevz=674) 31.7 % 40.1-51.0 MEAN CORPUSCULAR VOLUME (BEAKER) (test elwa=250) 68.0 fL 79.0-92.2 MEAN CORPUSCULAR HEMOGLOBIN (BEAKER) (test 19.5 pg 25.7-32.2 ldpk=356) MEAN CORPUSCULAR HEMOGLOBIN CONC (BEAKER) (test 28.7 GM/DL 32.3-36.5 xwhq=903) RED CELL DISTRIBUTION WIDTH (BEAKER) (test 20.4 % 11.6-14.4 itjt=354) PLATELET COUNT (BEAKER) (test fhfq=571) 174 K/CU MM 150-450 MEAN PLATELET VOLUME (BEAKER) (test hxwo=431) 10.6 fL 9.4-12.4 NUCLEATED RED BLOOD CELLS (BEAKER) (test 0 /100 WBC 0-0 wacd=347) NEUTROPHILS RELATIVE PERCENT (BEAKER) (test 74 % fyfd=319) LYMPHOCYTES RELATIVE PERCENT (BEAKER) (test 16 % ctyn=229) MONOCYTES RELATIVE PERCENT (BEAKER) (test 7 % mpzo=930) EOSINOPHILS RELATIVE PERCENT (BEAKER) (test 2 % focg=765) BASOPHILS RELATIVE PERCENT (BEAKER) (test 1 % ncez=346) NEUTROPHILS ABSOLUTE COUNT (BEAKER) (test 6.70 K/ L 1.78-5.38 tcoq=383) LYMPHOCYTES ABSOLUTE COUNT (BEAKER) (test 1.42 K/ L 1.32-3.57 wzaz=173) MONOCYTES ABSOLUTE COUNT (BEAKER) (test 0.61 K/ L 0.30-0.82 kqpf=784) EOSINOPHILS ABSOLUTE COUNT (BEAKER) (test 0.20 K/ L 0.04-0.54 rmlw=593) BASOPHILS ABSOLUTE COUNT (BEAKER) (test 0.10 K/ L 0.01-0.08 rqnr=409) IMMATURE GRANULOCYTES-RELATIVE PERCENT (BEAKER) 0 % 0-1 (test sivk=4513) POCT-GLUCOSE [id number] 23:33:00 Test Item Value Reference Range Comments POC-GLUCOSE METER (BEAKER) 230 mg/dL 70-110 TESTED AT [address] (test xgio=6748) [place] [id number] POCT-GLUCOSE [id number] 16:25:00 Test Item Value Reference Range Comments POC-GLUCOSE METER (BEAKER) 182 mg/dL 70-110 TESTED AT [address] (test ysgl=4562) [facility] [address] POCT-GLUCOSE [id number] 14:02:00 Test Item Value Reference Range Comments POC-GLUCOSE METER (BEAKER) 146 mg/dL 70-110 TESTED AT [address] (test oerb=1610) [facility] [address] POCT-GLUCOSE [id number] 07:49:00 Test Item Value Reference Range Comments POC-GLUCOSE METER (BEAKER) 143 mg/dL 70-110 TESTED AT [address] (test gedp=3296) [facility] [address] CALCIUM, [id number] 06:48:00 Test Item Value Reference Range Comments CALCIUM IONIZED (BEAKER) (test otox=622) 0.81 mmol/L 1.12-1.27 PH, BLOOD (BEAKER) (test xhov=4339) 7.50 CBC W/PLT COUNT & AUTO [id number] 06:41:00 Test Item Value Reference Range Comments WHITE BLOOD CELL COUNT 4.0 K/ L 3.5-10.5 (BEAKER) (test eufy=153) RED BLOOD CELL COUNT (BEAKER) 4.14 M/ L 4.63-6.08 (test uego=730) HEMOGLOBIN (BEAKER) (test 8.2 GM/DL 13.7-17.5 uzyk=462) HEMATOCRIT (BEAKER) (test 27.7 % 40.1-51.0 bwpg=060) MEAN CORPUSCULAR VOLUME 66.9 fL 79.0-92.2 (BEAKER) (test vfmu=694) MEAN CORPUSCULAR HEMOGLOBIN 19.8 pg 25.7-32.2 (BEAKER) (test ozal=529) MEAN CORPUSCULAR HEMOGLOBIN 29.6 GM/DL 32.3-36.5 CONC (BEAKER) (test mqbv=918) RED CELL DISTRIBUTION WIDTH 20.3 % 11.6-14.4 (BEAKER) (test tlyl=936) PLATELET COUNT (BEAKER) (test 120 K/CU MM 150-450 tjoo=908) MEAN PLATELET VOLUME (BEAKER) fL 9.4-12.4 Unable to report due to (test aiyr=777) abnormal Platelet population distribution. NUCLEATED RED BLOOD CELLS 0 /100 WBC 0-0 (BEAKER) (test phto=519) NEUTROPHILS RELATIVE PERCENT 58 % (BEAKER) (test qfic=775) LYMPHOCYTES RELATIVE PERCENT 25 % (BEAKER) (test wbwp=585) MONOCYTES RELATIVE PERCENT 8 % (BEAKER) (test rktm=551) EOSINOPHILS RELATIVE PERCENT 7 % (BEAKER) (test deev=792) BASOPHILS RELATIVE PERCENT 1 % (BEAKER) (test nytx=332) NEUTROPHILS ABSOLUTE COUNT 2.36 K/ L 1.78-5.38 (BEAKER) (test zxni=941) LYMPHOCYTES ABSOLUTE COUNT 1.01 K/ L 1.32-3.57 (BEAKER) (test uaho=200) MONOCYTES ABSOLUTE COUNT 0.33 K/ L 0.30-0.82 (BEAKER) (test lgjd=799) EOSINOPHILS ABSOLUTE COUNT 0.29 K/ L 0.04-0.54 (BEAKER) (test bnje=149) BASOPHILS ABSOLUTE COUNT 0.04 K/ L 0.01-0.08 (BEAKER) (test fvhz=728) IMMATURE GRANULOCYTES-RELATIVE 0 % 0-1 PERCENT (BEAKER) (test ymlm=1642) [id number] 06:02:00 Test Item Value Reference Range Comments PHOSPHORUS (BEAKER) (test ftcz=141) 3.6 mg/dL 2.3-4.7 [id number] 06:02:00 Test Item Value Reference Range Comments MAGNESIUM (BEAKER) (test mldv=962) 1.7 mg/dL 1.6-2.6 COMPREHENSIVE METABOLIC [id number] 06:02:00 Test Item Value Reference Range Comments TOTAL PROTEIN (BEAKER) 7.2 gm/dL 6.0-8.3 (test wxii=419) ALBUMIN (BEAKER) (test 3.2 g/dL 3.5-5.0 yjid=5835) ALKALINE PHOSPHATASE 157 U/L 40-150 (BEAKER) (test fdjf=893) BILIRUBIN TOTAL (BEAKER) 0.9 mg/dL 0.2-1.2 (test yjbp=638) SODIUM (BEAKER) (test 137 meq/L 136-145 uqcl=386) POTASSIUM (BEAKER) (test 3.5 meq/L 3.5-5.1 vmeg=591) CHLORIDE (BEAKER) (test 102 meq/L 98-107 yhhi=624) CO2 (BEAKER) (test 30 meq/L 22-29 qrma=349) BLOOD UREA NITROGEN 18 mg/dL 7-21 (BEAKER) (test gudq=313) CREATININE (BEAKER) (test 1.14 mg/dL 0.57-1.25 ancw=012) GLUCOSE RANDOM (BEAKER) 130 mg/dL 70-105 (test jopz=005) CALCIUM (BEAKER) (test 8.6 mg/dL 8.4-10.2 ifoh=095) AST (SGOT) (BEAKER) (test 53 U/L 5-34 dwzn=198) ALT (SGPT) (BEAKER) (test 25 U/L 6-55 uotj=591) EGFR (BEAKER) (test 67 mL/min/1.73 sq m ESTIMATED GFR IS NOT weoj=4181) ACCURATE CREATININE CLEARANCE IN PREDICTING GLOMERULAR FILTRATION RATE. ESTIMATED GFR IS NOT APPLICABLE FOR DIALYSIS PATIENTS. POCT-GLUCOSE [id number] 23:13:00 Test Item Value Reference Range Comments POC-GLUCOSE METER (BEAKER) 332 mg/dL 70-110 Notified JADA NIX/TESTED AT [facility] (test pgew=3844) [address] [facility] [address] POCT-GLUCOSE [id number] 15:30:00 Test Item Value Reference Range Comments POC-GLUCOSE METER (BEAKER) 191 mg/dL 70-[address] [facility] [address] (test yxxz=5345) [facility] [address] CALCIUM, [id number] 06:07:00 Test Item Value Reference Range Comments CALCIUM IONIZED (BEAKER) (test octw=599) 0.93 mmol/L 1.12-1.27 PH, BLOOD (BEAKER) (test jtqh=9696) 7.53 [id number] 06:06:00 Test Item Value Reference Range Comments PHOSPHORUS (BEAKER) (test wldj=671) 3.1 mg/dL 2.3-4.7 [id number] 06:06:00 Test Item Value Reference Range Comments MAGNESIUM (BEAKER) (test audj=255) 1.8 mg/dL 1.6-2.6 BASIC METABOLIC [id number] 06:06:00 Test Item Value Reference Range Comments SODIUM (BEAKER) (test 138 meq/L 136-145 rtqh=307) POTASSIUM (BEAKER) (test 3.8 meq/L 3.5-5.1 pbdg=774) CHLORIDE (BEAKER) (test 104 meq/L 98-107 xeqv=709) CO2 (BEAKER) (test 27 meq/L 22-29 wrfo=327) BLOOD UREA NITROGEN 19 mg/dL 7-21 (BEAKER) (test bzon=905) CREATININE (BEAKER) (test 1.26 mg/dL 0.57-1.25 pnkl=071) GLUCOSE RANDOM (BEAKER) 191 mg/dL 70-105 (test nmdf=628) CALCIUM (BEAKER) (test 8.9 mg/dL 8.4-10.2 nhwz=416) EGFR (BEAKER) (test 59 mL/min/1.73 sq m ESTIMATED GFR IS NOT pasc=7773) ACCURATE CREATININE CLEARANCE IN PREDICTING GLOMERULAR FILTRATION RATE. ESTIMATED GFR IS NOT APPLICABLE FOR DIALYSIS PATIENTS. B-TYPE NATRIURETIC FACTOR (BNP)2018-12-31 05:58:00 Test Item Value Reference Range Comments B-TYPE NATRIURETIC PEPTIDE (BEAKER) (test fxjt=149) 99 pg/mL 0-100 CBC W/PLT COUNT & AUTO [id number] 05:35:00 Test Item Value Reference Range Comments WHITE BLOOD CELL COUNT 5.2 K/ L 3.5-10.5 (BEAKER) (test kvdm=026) RED BLOOD CELL COUNT (BEAKER) 4.00 M/ L 4.63-6.08 (test mysn=596) HEMOGLOBIN (BEAKER) (test 7.7 GM/DL 13.7-17.5 uaaj=687) HEMATOCRIT (BEAKER) (test 27.2 % 40.1-51.0 rilb=673) MEAN CORPUSCULAR VOLUME 68.0 fL 79.0-92.2 (BEAKER) (test cdum=990) MEAN CORPUSCULAR HEMOGLOBIN 19.3 pg 25.7-32.2 (BEAKER) (test zoxy=031) MEAN CORPUSCULAR HEMOGLOBIN 28.3 GM/DL 32.3-36.5 CONC (BEAKER) (test brvm=996) RED CELL DISTRIBUTION WIDTH 20.3 % 11.6-14.4 (BEAKER) (test fcoe=189) PLATELET COUNT (BEAKER) (test 107 K/CU MM 150-450 ipll=423) MEAN PLATELET VOLUME (BEAKER) fL 9.4-12.4 Unable to report due to (test sqla=181) abnormal Platelet population distribution. NUCLEATED RED BLOOD CELLS 0 /100 WBC 0-0 (BEAKER) (test zbis=150) NEUTROPHILS RELATIVE PERCENT 67 % (BEAKER) (test plwb=206) LYMPHOCYTES RELATIVE PERCENT 19 % (BEAKER) (test ojty=313) MONOCYTES RELATIVE PERCENT 8 % (BEAKER) (test iyih=705) EOSINOPHILS RELATIVE PERCENT 5 % (BEAKER) (test owne=995) BASOPHILS RELATIVE PERCENT 1 % (BEAKER) (test xwhe=612) NEUTROPHILS ABSOLUTE COUNT 3.47 K/ L 1.78-5.38 (BEAKER) (test fdjl=900) LYMPHOCYTES ABSOLUTE COUNT 0.99 K/ L 1.32-3.57 (BEAKER) (test cxas=308) MONOCYTES ABSOLUTE COUNT 0.40 K/ L 0.30-0.82 (BEAKER) (test kryk=930) EOSINOPHILS ABSOLUTE COUNT 0.24 K/ L 0.04-0.54 (BEAKER) (test wwwj=954) BASOPHILS ABSOLUTE COUNT 0.06 K/ L 0.01-0.08 (BEAKER) (test wgqr=382) IMMATURE GRANULOCYTES-RELATIVE 0 % 0-1 PERCENT (BEAKER) (test raxr=6111) POCT-GLUCOSE [id number] 21:49:00 Test Item Value Reference Range Comments POC-GLUCOSE METER (BEAKER) 291 mg/dL 70-110 TESTED AT [address] (test qxzp=3502) [place] [address] POCT-GLUCOSE [id number] 17:31:00 Test Item Value Reference Range Comments POC-GLUCOSE METER (BEAKER) 247 mg/dL 70-110 TESTED AT [address] (test ksmu=1251) [place] [address] BONE AND/OR JOINT IMAGING, WHOLE [id number] 16:47:00FINAL REPORT PROCEDURE: BONE SCAN, WHOLE BODY CPT CODE: [id number] INDICATION: Hepatocellular carcinoma, preoperative evaluation for liver [...] Verified Date/ Time: 12/30/2018 16:47:37 Reading Location: [address], CHEST, WITHOUT [id number] 12:26:00FINAL REPORT CT Chest without contrast History: [...] MDReport Verified Date/Time: 12/30/2018 12:26:39 Reading Location: [facility] Diagnostic Imaging Reading Room - [place] [address] POCT-GLUCOSE [id number] 11:39:00 Test Item Value Reference Range Comments POC-GLUCOSE METER (BEAKER) 250 mg/dL 70-110 TESTED AT [address] (test kehv=1782) [facility] [address] POCT-GLUCOSE [id number] 07:43:00 Test Item Value Reference Range Comments POC-GLUCOSE METER (BEAKER) 228 mg/dL 70-110 TESTED AT [address] (test tbur=6466) [facility] [address] CALCIUM, [id number] 07:32:00 Test Item Value Reference Range Comments CALCIUM IONIZED (BEAKER) (test kbyp=769) 0.97 mmol/L 1.12-1.27 PH, BLOOD (BEAKER) (test xwfu=5955) 7.46 [id number] 06:46:00 Test Item Value Reference Range Comments PHOSPHORUS (BEAKER) (test rvwj=775) 3.5 mg/dL 2.3-4.7 [id number] 06:46:00 Test Item Value Reference Range Comments MAGNESIUM (BEAKER) (test irds=315) 1.8 mg/dL 1.6-2.6 COMPREHENSIVE METABOLIC [id number] 06:46:00 Test Item Value Reference Range Comments TOTAL PROTEIN (BEAKER) 7.2 gm/dL 6.0-8.3 (test lzkz=292) ALBUMIN (BEAKER) (test 3.3 g/dL 3.5-5.0 xiad=7761) ALKALINE PHOSPHATASE 137 U/L 40-150 (BEAKER) (test qjof=185) BILIRUBIN TOTAL (BEAKER) 0.8 mg/dL 0.2-1.2 (test cxbt=091) SODIUM (BEAKER) (test 136 meq/L 136-145 jkcg=287) POTASSIUM (BEAKER) (test 3.7 meq/L 3.5-5.1 hyky=868) CHLORIDE (BEAKER) (test 102 meq/L 98-107 croj=996) CO2 (BEAKER) (test 25 meq/L 22-29 xetq=781) BLOOD UREA NITROGEN 14 mg/dL 7-21 (BEAKER) (test vqcn=744) CREATININE (BEAKER) (test 1.06 mg/dL 0.57-1.25 oqsa=900) GLUCOSE RANDOM (BEAKER) 154 mg/dL 70-105 (test hefk=873) CALCIUM (BEAKER) (test 8.8 mg/dL 8.4-10.2 mrta=155) AST (SGOT) (BEAKER) (test 55 U/L 5-34 stjh=582) ALT (SGPT) (BEAKER) (test 24 U/L 6-55 kcsa=222) EGFR (BEAKER) (test 73 mL/min/1.73 sq m ESTIMATED GFR IS NOT xunx=8160) ACCURATE CREATININE CLEARANCE IN PREDICTING GLOMERULAR FILTRATION RATE. ESTIMATED GFR IS NOT APPLICABLE FOR DIALYSIS PATIENTS. CBC W/PLT COUNT & AUTO [id number] 06:20:00 Test Item Value Reference Range Comments WHITE BLOOD CELL COUNT 5.1 K/ L 3.5-10.5 (BEAKER) (test nrxe=981) RED BLOOD CELL COUNT (BEAKER) 4.24 M/ L 4.63-6.08 (test oflp=413) HEMOGLOBIN (BEAKER) (test 8.4 GM/DL 13.7-17.5 engp=629) HEMATOCRIT (BEAKER) (test 28.7 % 40.1-51.0 stny=088) MEAN CORPUSCULAR VOLUME 67.7 fL 79.0-92.2 (BEAKER) (test mwms=969) MEAN CORPUSCULAR HEMOGLOBIN 19.8 pg 25.7-32.2 (BEAKER) (test ljmh=771) MEAN CORPUSCULAR HEMOGLOBIN 29.3 GM/DL 32.3-36.5 CONC (BEAKER) (test grqq=079) RED CELL DISTRIBUTION WIDTH 20.7 % 11.6-14.4 (BEAKER) (test ufgr=406) PLATELET COUNT (BEAKER) (test 121 K/CU MM 150-450 wlqa=523) MEAN PLATELET VOLUME (BEAKER) fL 9.4-12.4 Unable to report due to (test gdzj=452) abnormal Platelet population distribution. NUCLEATED RED BLOOD CELLS 0 /100 WBC 0-0 (BEAKER) (test sbya=700) NEUTROPHILS RELATIVE PERCENT 65 % (BEAKER) (test eqxa=330) LYMPHOCYTES RELATIVE PERCENT 20 % (BEAKER) (test xxvb=923) MONOCYTES RELATIVE PERCENT 8 % (BEAKER) (test toct=748) EOSINOPHILS RELATIVE PERCENT 5 % (BEAKER) (test zbvz=326) BASOPHILS RELATIVE PERCENT 1 % (BEAKER) (test vfif=042) NEUTROPHILS ABSOLUTE COUNT 3.36 K/ L 1.78-5.38 (BEAKER) (test alrs=016) LYMPHOCYTES ABSOLUTE COUNT 1.02 K/ L 1.32-3.57 (BEAKER) (test veef=643) MONOCYTES ABSOLUTE COUNT 0.42 K/ L 0.30-0.82 (BEAKER) (test fbcj=314) EOSINOPHILS ABSOLUTE COUNT 0.28 K/ L 0.04-0.54 (BEAKER) (test nime=510) BASOPHILS ABSOLUTE COUNT 0.05 K/ L 0.01-0.08 (BEAKER) (test umcr=565) IMMATURE GRANULOCYTES-RELATIVE 0 % 0-1 PERCENT (BEAKER) (test jzrf=6593) POCT-GLUCOSE [id number] 21:51:00 Test Item Value Reference Range Comments POC-GLUCOSE METER (BEAKER) 279 mg/dL 70-110 TESTED AT [address] (test ktnf=4573) [place] [id number] POCT-GLUCOSE [id number] 17:37:00 Test Item Value Reference Range Comments POC-GLUCOSE METER (BEAKER) 151 mg/dL 70-110 TESTED AT 11 [address] (test xqkc=9820) [place] [id number] BASIC METABOLIC [id number] 16:15:00 Test Item Value Reference Range Comments SODIUM (BEAKER) (test 138 meq/L 136-145 xpbb=583) POTASSIUM (BEAKER) (test 3.7 meq/L 3.5-5.1 yrdj=365) CHLORIDE (BEAKER) (test 102 meq/L 98-107 csso=123) CO2 (BEAKER) (test 27 meq/L 22-29 alic=532) BLOOD UREA NITROGEN 14 mg/dL 7-21 (BEAKER) (test elxq=566) CREATININE (BEAKER) (test 1.25 mg/dL 0.57-1.25 tkpy=405) GLUCOSE RANDOM (BEAKER) 129 mg/dL 70-105 (test mgyf=611) CALCIUM (BEAKER) (test 9.4 mg/dL 8.4-10.2 ypdz=621) EGFR (BEAKER) (test 60 mL/min/1.73 sq m ESTIMATED GFR IS NOT brvw=5457) ACCURATE CREATININE CLEARANCE IN PREDICTING GLOMERULAR FILTRATION RATE. ESTIMATED GFR IS NOT APPLICABLE FOR DIALYSIS PATIENTS. Call [id number] 12:24:00 Test Item Value Reference Range Comments POC-GLUCOSE METER (BEAKER) 358 mg/dL 70-110 TESTED AT [address] (test bgvh=6567) [place] [id number] POCT-GLUCOSE [id number] 07:53:00 Test Item Value Reference Range Comments POC-GLUCOSE METER (BEAKER) 173 mg/dL 70-110 TESTED AT [address] (test rfix=8501) [place] [id number] POCT-GLUCOSE [id number] 22:33:00 Test Item Value Reference Range Comments POC-GLUCOSE METER (BEAKER) 228 mg/dL 70-110 TESTED AT [address] (test qlzg=3684) [place] [address] [id number] 09:58:00 Test Item Value Reference Range Comments PHOSPHORUS (BEAKER) (test kyut=541) 3.5 mg/dL 2.3-4.7 [id number] 09:58:00 Test Item Value Reference Range Comments MAGNESIUM (BEAKER) (test jrqi=203) 1.9 mg/dL 1.6-2.6 COMPREHENSIVE METABOLIC [id number] 09:58:00 Test Item Value Reference Range Comments TOTAL PROTEIN (BEAKER) 7.5 gm/dL 6.0-8.3 (test egsx=294) ALBUMIN (BEAKER) (test 3.5 g/dL 3.5-5.0 tbhb=9194) ALKALINE PHOSPHATASE 129 U/L 40-150 (BEAKER) (test gpaj=729) BILIRUBIN TOTAL (BEAKER) 0.9 mg/dL 0.2-1.2 (test mcum=325) SODIUM (BEAKER) (test 136 meq/L 136-145 qhxl=236) POTASSIUM (BEAKER) (test 3.6 meq/L 3.5-5.1 tmna=728) CHLORIDE (BEAKER) (test 103 meq/L 98-107 cxxo=322) CO2 (BEAKER) (test 24 meq/L 22-29 sbov=542) BLOOD UREA NITROGEN 14 mg/dL 7-21 (BEAKER) (test ggrz=665) CREATININE (BEAKER) (test 1.17 mg/dL 0.57-1.25 hlmv=857) GLUCOSE RANDOM (BEAKER) 224 mg/dL 70-105 (test ieln=623) CALCIUM (BEAKER) (test 9.0 mg/dL 8.4-10.2 mwpy=378) AST (SGOT) (BEAKER) (test 57 U/L 5-34 isyl=644) ALT (SGPT) (BEAKER) (test 25 U/L 6-55 esrc=309) EGFR (BEAKER) (test 65 mL/min/1.73 sq m ESTIMATED GFR IS NOT wpdg=7429) ACCURATE CREATININE CLEARANCE IN PREDICTING GLOMERULAR FILTRATION RATE. ESTIMATED GFR IS NOT APPLICABLE FOR DIALYSIS PATIENTS. POCT-GLUCOSE [id number] 08:36:00 Test Item Value Reference Range Comments POC-GLUCOSE METER (BEAKER) 220 mg/dL 70-[address] [facility] [address] [facility] (test xtiq=0128) [place] [address] CBC W/PLT COUNT & AUTO [id number] 07:42:00 Test Item Value Reference Range Comments WHITE BLOOD CELL COUNT 5.4 K/ L 3.5-10.5 (BEAKER) (test zdws=290) RED BLOOD CELL COUNT (BEAKER) 4.30 M/ L 4.63-6.08 (test tczp=595) HEMOGLOBIN (BEAKER) (test 8.6 GM/DL 13.7-17.5 vibv=082) HEMATOCRIT (BEAKER) (test 29.3 % 40.1-51.0 zswi=430) MEAN CORPUSCULAR VOLUME 68.1 fL 79.0-92.2 (BEAKER) (test xnbu=489) MEAN CORPUSCULAR HEMOGLOBIN 20.0 pg 25.7-32.2 (BEAKER) (test gkvv=098) MEAN CORPUSCULAR HEMOGLOBIN 29.4 GM/DL 32.3-36.5 CONC (BEAKER) (test hkgl=395) RED CELL DISTRIBUTION WIDTH 20.7 % 11.6-14.4 (BEAKER) (test vrfe=324) PLATELET COUNT (BEAKER) (test 112 K/CU MM 150-450 dbrm=414) MEAN PLATELET VOLUME (BEAKER) fL 9.4-12.4 Unable to report due to (test ffag=240) abnormal Platelet population distribution. NUCLEATED RED BLOOD CELLS 0 /100 WBC 0-0 (BEAKER) (test xrjw=055) NEUTROPHILS RELATIVE PERCENT 71 % (BEAKER) (test pgbg=700) LYMPHOCYTES RELATIVE PERCENT 15 % (BEAKER) (test jiet=717) MONOCYTES RELATIVE PERCENT 9 % (BEAKER) (test ilhf=864) EOSINOPHILS RELATIVE PERCENT 5 % (BEAKER) (test iuff=770) BASOPHILS RELATIVE PERCENT 1 % (BEAKER) (test amgf=947) NEUTROPHILS ABSOLUTE COUNT 3.79 K/ L 1.78-5.38 (BEAKER) (test yapj=828) LYMPHOCYTES ABSOLUTE COUNT 0.79 K/ L 1.32-3.57 (BEAKER) (test ljtf=172) MONOCYTES ABSOLUTE COUNT 0.48 K/ L 0.30-0.82 (BEAKER) (test qdbr=091) EOSINOPHILS ABSOLUTE COUNT 0.28 K/ L 0.04-0.54 (BEAKER) (test yjvr=704) BASOPHILS ABSOLUTE COUNT 0.04 K/ L 0.01-0.08 (BEAKER) (test dqoq=575) IMMATURE GRANULOCYTES-RELATIVE 0 % 0-1 PERCENT (BEAKER) (test hser=1784) CALCIUM, [id number] 06:42:00 Test Item Value Reference Range Comments CALCIUM IONIZED (BEAKER) (test pjih=382) 1.07 mmol/L 1.12-1.27 PH, BLOOD (BEAKER) (test inmo=1918) 7.42 POCT-GLUCOSE [id number] 22:30:00 Test Item Value Reference Range Comments POC-GLUCOSE METER (BEAKER) 183 mg/dL 70-110 TESTED AT [address] (test whfd=0153) [place] [address] POCT-GLUCOSE [id number] 18:41:00 Test Item Value Reference Range Comments POC-GLUCOSE METER (BEAKER) 278 mg/dL 70-110 TESTED AT [address] (test swlr=9990) [place] [address] POCT-GLUCOSE [id number] 11:50:00 Test Item Value Reference Range Comments POC-GLUCOSE METER (BEAKER) 142 mg/dL 70-110 TESTED AT [address] (test mnvu=6307) [facility] [address] POCT-GLUCOSE [id number] 10:36:00 Test Item Value Reference Range Comments POC-GLUCOSE METER (BEAKER) 130 mg/dL 70-110 TESTED AT [address] (test adww=9938) [place] [address] POCT-GLUCOSE [id number] 07:40:00 Test Item Value Reference Range Comments POC-GLUCOSE METER (BEAKER) 145 mg/dL 70-110 TESTED AT [address] (test byfx=8462) [facility] [address] CBC W/PLT COUNT & AUTO [id number] 06:58:00 Test Item Value Reference Range Comments WHITE BLOOD CELL COUNT 5.1 K/ L 3.5-10.5 (BEAKER) (test rnot=193) RED BLOOD CELL COUNT (BEAKER) 4.31 M/ L 4.63-6.08 (test tjwc=989) HEMOGLOBIN (BEAKER) (test 8.3 GM/DL 13.7-17.5 qhii=004) HEMATOCRIT (BEAKER) (test 29.6 % 40.1-51.0 hcre=094) MEAN CORPUSCULAR VOLUME 68.7 fL 79.0-92.2 (BEAKER) (test ewmu=804) MEAN CORPUSCULAR HEMOGLOBIN 19.3 pg 25.7-32.2 (BEAKER) (test myuq=055) MEAN CORPUSCULAR HEMOGLOBIN 28.0 GM/DL 32.3-36.5 CONC (BEAKER) (test hjol=185) RED CELL DISTRIBUTION WIDTH 21.1 % 11.6-14.4 (BEAKER) (test exsy=862) PLATELET COUNT (BEAKER) (test 108 K/CU MM 150-450 yqgf=215) MEAN PLATELET VOLUME (BEAKER) fL 9.4-12.4 Unable to report due to (test nvoq=397) abnormal Platelet population distribution. NUCLEATED RED BLOOD CELLS 0 /100 WBC 0-0 (BEAKER) (test scor=087) NEUTROPHILS RELATIVE PERCENT 65 % (BEAKER) (test zatb=527) LYMPHOCYTES RELATIVE PERCENT 20 % (BEAKER) (test ypzb=443) MONOCYTES RELATIVE PERCENT 8 % (BEAKER) (test myxq=677) EOSINOPHILS RELATIVE PERCENT 7 % (BEAKER) (test qssv=272) BASOPHILS RELATIVE PERCENT 1 % (BEAKER) (test yaga=544) NEUTROPHILS ABSOLUTE COUNT 3.30 K/ L 1.78-5.38 (BEAKER) (test nazq=607) LYMPHOCYTES ABSOLUTE COUNT 1.00 K/ L 1.32-3.57 (BEAKER) (test okac=574) MONOCYTES ABSOLUTE COUNT 0.40 K/ L 0.30-0.82 (BEAKER) (test zphz=771) EOSINOPHILS ABSOLUTE COUNT 0.33 K/ L 0.04-0.54 (BEAKER) (test tudl=722) BASOPHILS ABSOLUTE COUNT 0.05 K/ L 0.01-0.08 (BEAKER) (test zsvu=253) IMMATURE GRANULOCYTES-RELATIVE 0 % 0-1 PERCENT (BEAKER) (test krle=8309) [id number] 06:56:00 Test Item Value Reference Range Comments PHOSPHORUS (BEAKER) (test nqed=254) 3.7 mg/dL 2.3-4.7 [id number] 06:56:00 Test Item Value Reference Range Comments MAGNESIUM (BEAKER) (test tqkb=132) 1.6 mg/dL 1.6-2.6 BASIC METABOLIC [id number] 06:56:00 Test Item Value Reference Range Comments SODIUM (BEAKER) (test 138 meq/L 136-145 jaco=548) POTASSIUM (BEAKER) (test 3.9 meq/L 3.5-5.1 umfo=808) CHLORIDE (BEAKER) (test 105 meq/L 98-107 nwki=586) CO2 (BEAKER) (test 25 meq/L 22-29 gsee=172) BLOOD UREA NITROGEN 13 mg/dL 7-21 (BEAKER) (test jffa=621) CREATININE (BEAKER) (test 1.06 mg/dL 0.57-1.25 tojc=984) GLUCOSE RANDOM (BEAKER) 115 mg/dL 70-105 (test mwib=089) CALCIUM (BEAKER) (test 8.8 mg/dL 8.4-10.2 ojlt=703) EGFR (BEAKER) (test 73 mL/min/1.73 sq m ESTIMATED GFR IS NOT qdrw=4334) ACCURATE CREATININE CLEARANCE IN PREDICTING GLOMERULAR FILTRATION RATE. ESTIMATED GFR IS NOT APPLICABLE FOR DIALYSIS PATIENTS. CALCIUM, [id number] 06:46:00 Test Item Value Reference Range Comments CALCIUM IONIZED (BEAKER) (test ttrm=070) 0.89 mmol/L 1.12-1.27 PH, BLOOD (BEAKER) (test wztv=3583) 7.41 PROTHROMBIN [id number] 06:38:00 Test Item Value Reference Range Comments PROTIME (BEAKER) (test xzoa=419) 15.2 seconds 11.7-14.7 INR (BEAKER) (test epcx=740) 1.2 <=5.9 RECOMMENDED COUMADIN/WARFARIN INR THERAPY RANGESSTANDARD DOSE: 2.0 - 3.0 Includes: PROPHYLAXIS forvenous thrombosis, systemic embolization; TREATMENT for venous thrombosis and/or pulmonary embolus.HIGH RISK: Target INR is 2.5-3.5 for patients with mechanical heart valves.B-TYPE NATRIURETIC FACTOR (BNP)2018-12 06:35:00 Test Item Value Reference Range Comments B-TYPE NATRIURETIC PEPTIDE (BEAKER) (test 135 pg/mL 0-100 clic=725) POCT-GLUCOSE [id number] 22:28:00 Test Item Value Reference Range Comments POC-GLUCOSE METER (BEAKER) 109 mg/dL 70-110 TESTED AT [address] (test jilr=1281) [facility] [address] POCT-GLUCOSE [id number] 21:07:00 Test Item Value Reference Range Comments POC-GLUCOSE METER (BEAKER) 91 mg/dL 70-110 TESTED AT [address] (test iyan=3259) [facility] [address] POCT-GLUCOSE [id number] 16:48:00 Test Item Value Reference Range Comments POC-GLUCOSE METER (BEAKER) 487 mg/dL 70-110 TESTED AT [address] (test pacu=8038) [facility] [address] HOPE [id number] 12:58:00Reason for Exam:->recurrent variceal bleeding, portal hypertensionFINAL REPORT History: Portal hypertension, history of variceal bleeding. PROCEDURE: Following informed written consent, general endotracheal anesthesia was administered and the patient's right cervical region was prepped and draped in the usual sterile manner. Access was gained the right internal jugular vein using a micropuncture needle. A 9 [place] sheath was placed at the access site into the jugular vein. A 5 [place] multipurpose catheter and wire were used to carefully select the hepatic vein and perform a hepatic venogram. Hepatic venous pressures were then performed as described below. Following a discussion with the patient's referring change release manager, Dr. Cano, who also conferred with cardiology, [...] Verified Date/Time: 12/26/2018 12: 58:23 Reading Location: [place] [address] Angio Body Reading Room POCT-GLUCOSE [id number] 12:50:00 Test Item Value Reference Range Comments POC-GLUCOSE METER (BEAKER) 124 mg/dL 70-110 TESTED AT [address] (test hgcz=9475) [facility] [address] POCT-GLUCOSE [id number] 10:41:00 Test Item Value Reference Range Comments POC-GLUCOSE METER (BEAKER) 158 mg/dL 70-[address] [facility] [address] (test cqlj=0236) [facility] [address] COMPREHENSIVE METABOLIC [id number] 07:58:00 Test Item Value Reference Range Comments TOTAL PROTEIN (BEAKER) 7.2 gm/dL 6.0-8.3 (test icqr=154) ALBUMIN (BEAKER) (test 3.0 g/dL 3.5-5.0 qccy=4256) ALKALINE PHOSPHATASE 142 U/L 40-150 (BEAKER) (test ejxq=165) BILIRUBIN TOTAL (BEAKER) 0.9 mg/dL 0.2-1.2 (test tldz=661) SODIUM (BEAKER) (test 138 meq/L 136-145 sqvb=748) POTASSIUM (BEAKER) (test 4.4 meq/L 3.5-5.1 gxyn=095) CHLORIDE (BEAKER) (test 106 meq/L 98-107 clse=225) CO2 (BEAKER) (test 26 meq/L 22-29 ncdb=956) BLOOD UREA NITROGEN 10 mg/dL 7-21 (BEAKER) (test dilf=014) CREATININE (BEAKER) (test 0.91 mg/dL 0.57-1.25 ktcq=124) GLUCOSE RANDOM (BEAKER) 134 mg/dL 70-105 (test bfkw=943) CALCIUM (BEAKER) (test 9.3 mg/dL 8.4-10.2 vkdz=449) AST (SGOT) (BEAKER) (test 69 U/L 5-34 fpoh=610) ALT (SGPT) (BEAKER) (test 29 U/L 6-55 uxeh=664) EGFR (BEAKER) (test 86 mL/min/1.73 sq m ESTIMATED GFR IS NOT xpnp=3194) ACCURATE CREATININE CLEARANCE IN PREDICTING GLOMERULAR FILTRATION RATE. ESTIMATED GFR IS NOT APPLICABLE FOR DIALYSIS PATIENTS. [id number] 07:58:00 Test Item Value Reference Range Comments PROTIME (BEAKER) (test dsoe=128) 15.4 seconds 11.7-14.7 INR (BEAKER) (test zeqt=774) 1.2 <=5.9 PARTIAL THROMBOPLASTIN TIME (BEAKER) (test 35.4 seconds 22.5-36.0 ceby=420) RECOMMENDED COUMADIN/WARFARIN INR THERAPY RANGESSTANDARD DOSE: 2.0 - 3.0 Includes: PROPHYLAXIS forvenous thrombosis, systemic embolization; TREATMENT for venous thrombosis and/or pulmonary embolus.HIGH RISK: Target INR is 2.5-3.5 for patients with mechanical heart valves.CBC W/PLT COUNT & AUTO [id number] 07:52:00 Test Item Value Reference Range Comments WHITE BLOOD CELL COUNT (BEAKER) (test otjy=065) 4.6 K/ L 3.5-10.5 RED BLOOD CELL COUNT (BEAKER) (test cxso=363) 4.35 M/ L 4.63-6.08 HEMOGLOBIN (BEAKER) (test pevj=229) 8.6 GM/DL 13.7-17.5 HEMATOCRIT (BEAKER) (test qjgq=447) 30.1 % 40.1-51.0 MEAN CORPUSCULAR VOLUME (BEAKER) (test plem=829) 69.2 fL 79.0-92.2 MEAN CORPUSCULAR HEMOGLOBIN (BEAKER) (test 19.8 pg 25.7-32.2 jknk=713) MEAN CORPUSCULAR HEMOGLOBIN CONC (BEAKER) (test 28.6 GM/DL 32.3-36.5 osyb=524) RED CELL DISTRIBUTION WIDTH (BEAKER) (test 21.3 % 11.6-14.4 siql=649) PLATELET COUNT (BEAKER) (test cqog=893) 110 K/CU MM 150-450 MEAN PLATELET VOLUME (BEAKER) (test bopo=317) 10.1 fL 9.4-12.4 NUCLEATED RED BLOOD CELLS (BEAKER) (test 0 /100 WBC 0-0 ukyo=710) NEUTROPHILS RELATIVE PERCENT (BEAKER) (test 66 % hpoi=501) LYMPHOCYTES RELATIVE PERCENT (BEAKER) (test 19 % qmpb=661) MONOCYTES RELATIVE PERCENT (BEAKER) (test 8 % uocn=655) EOSINOPHILS RELATIVE PERCENT (BEAKER) (test 6 % iecw=628) BASOPHILS RELATIVE PERCENT (BEAKER) (test 1 % gavt=060) NEUTROPHILS ABSOLUTE COUNT (BEAKER) (test 3.03 K/ L 1.78-5.38 dzdt=633) LYMPHOCYTES ABSOLUTE COUNT (BEAKER) (test 0.88 K/ L 1.32-3.57 oaqn=415) MONOCYTES ABSOLUTE COUNT (BEAKER) (test 0.37 K/ L 0.30-0.82 uibt=590) EOSINOPHILS ABSOLUTE COUNT (BEAKER) (test 0.25 K/ L 0.04-0.54 bezn=389) BASOPHILS ABSOLUTE COUNT (BEAKER) (test 0.04 K/ L 0.01-0.08 rist=107) IMMATURE GRANULOCYTES-RELATIVE PERCENT (BEAKER) 0 % 0-1 (test dibs=0831) POCT-GLUCOSE [id number] 00:26:00 Test Item Value Reference Range Comments POC-GLUCOSE METER (BEAKER) 161 mg/dL 70-110 TESTED AT [address] (test aemy=8655) [facility] [address] URINALYSIS W/ [id number] 17:35:00 Test Item Value Reference Range Comments COLOR (BEAKER) (test qbaf=300) Light Yellow CLARITY (BEAKER) (test nona=239) Clear SPECIFIC GRAVITY UA (BEAKER) (test fzuo=232) 1.008 1.001-1.035 PH UA (BEAKER) (test crxr=698) 7.5 5.0-8.0 PROTEIN UA (BEAKER) (test qzfv=847) 30 mg/dL Negative GLUCOSE UA (BEAKER) (test eoga=952) 30 mg/dL Negative KETONES UA (BEAKER) (test bfjp=718) Negative Negative BILIRUBIN UA (BEAKER) (test dewa=894) Negative Negative BLOOD UA (BEAKER) (test uxjo=337) Trace Negative NITRITE UA (BEAKER) (test jyan=874) Negative Negative LEUKOCYTE ESTERASE UA (BEAKER) (test qiak=439) Negative Negative UROBILINOGEN UA (BEAKER) (test zovr=584) 0.2 mg/dL 0.2-1.0 RBC UA (BEAKER) (test lbew=587) 1 /HPF WBC UA (BEAKER) (test ofzt=783) 1 /HPF SOURCE(BEAKER) (test ldzv=9211) Urine, Voided POCT-GLUCOSE [id number] 16:55:00 Test Item Value Reference Range Comments POC-GLUCOSE METER (BEAKER) 234 mg/dL 70-110 TESTED AT [address] (test nkiy=4492) [facility] [address] POCT-GLUCOSE [id number] 12:09:00 Test Item Value Reference Range Comments POC-GLUCOSE METER (BEAKER) 199 mg/dL 70-110 TESTED AT [address] (test yeot=7784) [facility] [address] POCT-GLUCOSE [id number] 07:58:00 Test Item Value Reference Range Comments POC-GLUCOSE METER (BEAKER) 221 mg/dL 70-110 TESTED AT [address] (test dbva=8479) [facility] [address] POCT-GLUCOSE [id number] 22:49:00 Test Item Value Reference Range Comments POC-GLUCOSE METER (BEAKER) 210 mg/dL 70-110 TESTED AT [address] (test hjaq=0629) [facility] [address] POCT-GLUCOSE [id number] 14:45:00 Test Item Value Reference Range Comments POC-GLUCOSE METER (BEAKER) 128 mg/dL 70-110 TESTED AT [address] (test arzr=9310) [facility] [address] POCT-GLUCOSE [id number] 12:03:00 Test Item Value Reference Range Comments POC-GLUCOSE METER (BEAKER) 136 mg/dL 70-110 TESTED AT [address] (test thsg=5758) [facility] [address] COMPREHENSIVE METABOLIC [id number] 09:07:00 Test Item Value Reference Range Comments TOTAL PROTEIN (BEAKER) 6.9 gm/dL 6.0-8.3 Specimen slightly (test qbqq=571) hemolyzed ALBUMIN (BEAKER) (test 2.7 g/dL 3.5-5.0 Specimen slightly xvos=4338) hemolyzed ALKALINE PHOSPHATASE 136 U/L 40-150 (BEAKER) (test aonm=674) BILIRUBIN TOTAL (BEAKER) 1.1 mg/dL 0.2-1.2 Specimen slightly (test kaub=481) hemolyzed SODIUM (BEAKER) (test 135 meq/L 136-145 lele=316) POTASSIUM (BEAKER) (test 4.4 meq/L 3.5-5.1 Specimen slightly ayeo=689) hemolyzed CHLORIDE (BEAKER) (test 106 meq/L 98-107 kkds=547) CO2 (BEAKER) (test 26 meq/L 22-29 aknu=992) BLOOD UREA NITROGEN 7 mg/dL 7-21 (BEAKER) (test xmqc=470) CREATININE (BEAKER) (test 0.85 mg/dL 0.57-1.25 Specimen slightly ktzm=374) hemolyzed GLUCOSE RANDOM (BEAKER) 118 mg/dL 70-105 (test xgzc=393) CALCIUM (BEAKER) (test 8.8 mg/dL 8.4-10.2 odhj=612) AST (SGOT) (BEAKER) (test 69 U/L 5-34 Specimen slightly vemm=426) hemolyzed ALT (SGPT) (BEAKER) (test 28 U/L 6-55 Specimen slightly qmic=417) hemolyzed EGFR (BEAKER) (test 94 mL/min/1.73 sq m ESTIMATED GFR IS NOT wkjl=9247) ACCURATE CREATININE CLEARANCE IN PREDICTING GLOMERULAR FILTRATION RATE. ESTIMATED GFR IS NOT APPLICABLE FOR DIALYSIS PATIENTS. CBC W/PLT COUNT & AUTO [id number] 08:37:00 Test Item Value Reference Range Comments WHITE BLOOD CELL COUNT 4.4 K/ L 3.5-10.5 (BEAKER) (test hpkp=490) RED BLOOD CELL COUNT (BEAKER) 4.31 M/ L 4.63-6.08 (test adkt=145) HEMOGLOBIN (BEAKER) (test 8.4 GM/DL 13.7-17.5 oqgf=136) HEMATOCRIT (BEAKER) (test 30.2 % 40.1-51.0 ahng=151) MEAN CORPUSCULAR VOLUME 70.1 fL 79.0-92.2 (BEAKER) (test eezo=655) MEAN CORPUSCULAR HEMOGLOBIN 19.5 pg 25.7-32.2 (BEAKER) (test qtgu=436) MEAN CORPUSCULAR HEMOGLOBIN 27.8 GM/DL 32.3-36.5 CONC (BEAKER) (test umnu=873) RED CELL DISTRIBUTION WIDTH 21.9 % 11.6-14.4 (BEAKER) (test oyyl=469) PLATELET COUNT (BEAKER) (test 114 K/CU MM 150-450 qktd=271) MEAN PLATELET VOLUME (BEAKER) fL 9.4-12.4 Unable to report due to (test deuh=770) abnormal Platelet population distribution. NUCLEATED RED BLOOD CELLS 0 /100 WBC 0-0 (BEAKER) (test gfsj=874) NEUTROPHILS RELATIVE PERCENT 62 % (BEAKER) (test gnrf=302) LYMPHOCYTES RELATIVE PERCENT 22 % (BEAKER) (test rcyd=113) MONOCYTES RELATIVE PERCENT 8 % (BEAKER) (test mjkx=926) EOSINOPHILS RELATIVE PERCENT 6 % (BEAKER) (test spke=728) BASOPHILS RELATIVE PERCENT 1 % (BEAKER) (test uybt=175) NEUTROPHILS ABSOLUTE COUNT 2.75 K/ L 1.78-5.38 (BEAKER) (test kjdx=978) LYMPHOCYTES ABSOLUTE COUNT 0.98 K/ L 1.32-3.57 (BEAKER) (test tlgn=376) MONOCYTES ABSOLUTE COUNT 0.34 K/ L 0.30-0.82 (BEAKER) (test ceqz=760) EOSINOPHILS ABSOLUTE COUNT 0.28 K/ L 0.04-0.54 (BEAKER) (test klqz=259) BASOPHILS ABSOLUTE COUNT 0.06 K/ L 0.01-0.08 (BEAKER) (test xtnv=889) IMMATURE GRANULOCYTES-RELATIVE 1 % 0-1 PERCENT (BEAKER) (test yuld=0470) POCT-GLUCOSE [id number] 08:07:00 Test Item Value Reference Range Comments POC-GLUCOSE METER (BEAKER) 144 mg/dL 70-110 TESTED AT [address] (test rrui=0687) [place] [address] [id number] 23:43:00 Test Item Value Reference Range Comments MAGNESIUM (BEAKER) (test kkgu=161) 1.7 mg/dL 1.6-2.6 POCT-GLUCOSE [id number] 22:22:00 Test Item Value Reference Range Comments POC-GLUCOSE METER (BEAKER) 211 mg/dL 70-110 TESTED AT [address] (test cxko=2949) [place] [address] POCT-GLUCOSE [id number] 17:13:00 Test Item Value Reference Range Comments POC-GLUCOSE METER (BEAKER) 202 mg/dL 70-110 TESTED AT [address] (test qlik=5050) [place] [address] [id number] 16:14:00 Test Item Value Reference Range Comments T3 TOTAL (BEAKER) (test xnma=925) 108 ng/dL 48-159 POCT-GLUCOSE [id number] 13:49:00 Test Item Value Reference Range Comments POC-GLUCOSE METER (BEAKER) 303 mg/dL 70-[address] [facility] [address] [facility] (test qbck=0373) [facility] [address] POCT-GLUCOSE [id number] 12:15:00 Test Item Value Reference Range Comments POC-GLUCOSE METER (BEAKER) 304 mg/dL 70-110 Notified JADA NIX/TESTED AT [facility] (test wfin=5462) [address] [place] [address] ANTI-MITOCHONDRIAL AB, REFLEX TO [id number] 08:35:00 Test Item Value Reference Range Comments SCAN RESULT (test zeyw=[id number]) POCT-GLUCOSE [id number] 08:08:00 Test Item Value Reference Range Comments POC-GLUCOSE METER (BEAKER) 146 mg/dL 70-[address] [facility] [address] [facility] (test eepy=2923) [facility] [address] HEPATIC FUNCTION [id number] 06:32:00 Test Item Value Reference Range Comments TOTAL PROTEIN (BEAKER) (test fvih=114) 6.5 gm/dL 6.0-8.3 ALBUMIN (BEAKER) (test zhzu=2319) 2.7 g/dL 3.5-5.0 BILIRUBIN TOTAL (BEAKER) (test ykcc=482) 0.8 mg/dL 0.2-1.2 BILIRUBIN DIRECT (BEAKER) (test pzku=866) 0.6 mg/dL 0.1-0.5 ALKALINE PHOSPHATASE (BEAKER) (test dmnf=788) 141 U/L 40-150 AST (SGOT) (BEAKER) (test apdw=985) 66 U/L 5-34 ALT (SGPT) (BEAKER) (test ksqw=134) 27 U/L 6-55 BASIC METABOLIC [id number] 06:32:00 Test Item Value Reference Range Comments SODIUM (BEAKER) (test 137 meq/L 136-145 zsno=764) POTASSIUM (BEAKER) (test 4.0 meq/L 3.5-5.1 qjqa=808) CHLORIDE (BEAKER) (test 106 meq/L 98-107 zmmu=257) CO2 (BEAKER) (test 26 meq/L 22-29 bsqc=667) BLOOD UREA NITROGEN 7 mg/dL 7-21 (BEAKER) (test gyst=428) CREATININE (BEAKER) (test 0.81 mg/dL 0.57-1.25 elcc=175) GLUCOSE RANDOM (BEAKER) 134 mg/dL 70-105 (test uoyf=791) CALCIUM (BEAKER) (test 8.6 mg/dL 8.4-10.2 knak=898) EGFR (BEAKER) (test 99 mL/min/1.73 sq m ESTIMATED GFR IS NOT squx=0701) ACCURATE CREATININE CLEARANCE IN PREDICTING GLOMERULAR FILTRATION RATE. ESTIMATED GFR IS NOT APPLICABLE FOR DIALYSIS PATIENTS. CBC (HEMOGRAM ONLY)2018-12-23 05:34:00 Test Item Value Reference Range Comments WHITE BLOOD CELL COUNT (BEAKER) (test dhqz=667) 4.4 K/ L 3.5-10.5 RED BLOOD CELL COUNT (BEAKER) (test jegc=516) 4.11 M/ L 4.63-6.08 HEMOGLOBIN (BEAKER) (test yhdw=082) 8.0 GM/DL 13.7-17.5 HEMATOCRIT (BEAKER) (test sqwo=678) 28.2 % 40.1-51.0 MEAN CORPUSCULAR VOLUME (BEAKER) (test mtgd=286) 68.6 fL 79.0-92.2 MEAN CORPUSCULAR HEMOGLOBIN (BEAKER) (test 19.5 pg 25.7-32.2 ivqw=580) MEAN CORPUSCULAR HEMOGLOBIN CONC (BEAKER) (test 28.4 GM/DL 32.3-36.5 udns=800) RED CELL DISTRIBUTION WIDTH (BEAKER) (test 21.5 % 11.6-14.4 ahpz=788) PLATELET COUNT (BEAKER) (test ssjm=754) 121 K/CU MM 150-450 MEAN PLATELET VOLUME (BEAKER) (test pvqq=003) 10.2 fL 9.4-12.4 NUCLEATED RED BLOOD CELLS (BEAKER) (test 0 /100 WBC 0-0 mzgo=937) PROTHROMBIN [id number] 05:27:00 Test Item Value Reference Range Comments PROTIME (BEAKER) (test ixvm=014) 15.2 seconds 11.7-14.7 INR (BEAKER) (test garo=320) 1.2 <=5.9 RECOMMENDED COUMADIN/WARFARIN INR THERAPY RANGESSTANDARD DOSE: 2.0 - 3.0 Includes: PROPHYLAXIS forvenous thrombosis, systemic embolization; TREATMENT for venous thrombosis and/or pulmonary embolus.HIGH RISK: Target INR is 2.5-3.5 for patients with mechanical heart valves.POCT-GLUCOSE [id number] 23:11:00 Test Item Value Reference Range Comments POC-GLUCOSE METER (BEAKER) 224 mg/dL 70-110 TESTED AT [address] (test cpzo=3253) [facility] [address] POCT-GLUCOSE [id number] 16:52:00 Test Item Value Reference Range Comments POC-GLUCOSE METER (BEAKER) 250 mg/dL 70-110 TESTED AT [address] (test thvn=9982) [facility] [address] POCT-GLUCOSE [id number] 11:56:00 Test Item Value Reference Range Comments POC-GLUCOSE METER (BEAKER) 310 mg/dL 70-110 TESTED AT [address] (test jyer=9943) [facility] [address] POCT-GLUCOSE [id number] 07:50:00 Test Item Value Reference Range Comments POC-GLUCOSE METER (BEAKER) 267 mg/dL 70-110 TESTED AT [address] (test luod=9259) [facility] [address] COMPREHENSIVE METABOLIC [id number] 05:05:00 Test Item Value Reference Range Comments TOTAL PROTEIN (BEAKER) 6.3 gm/dL 6.0-8.3 (test bhod=555) ALBUMIN (BEAKER) (test 2.6 g/dL 3.5-5.0 kkmg=9800) ALKALINE PHOSPHATASE 112 U/L 40-150 (BEAKER) (test tnqu=934) BILIRUBIN TOTAL (BEAKER) 0.9 mg/dL 0.2-1.2 (test rtdt=680) SODIUM (BEAKER) (test 138 meq/L 136-145 tjxz=179) POTASSIUM (BEAKER) (test 3.9 meq/L 3.5-5.1 ekuq=321) CHLORIDE (BEAKER) (test 108 meq/L 98-107 jsmq=300) CO2 (BEAKER) (test 25 meq/L 22-29 ztbt=384) BLOOD UREA NITROGEN 6 mg/dL 7-21 (BEAKER) (test fbpi=958) CREATININE (BEAKER) (test 0.82 mg/dL 0.57-1.25 dwka=586) GLUCOSE RANDOM (BEAKER) 146 mg/dL 70-105 (test qjhy=784) CALCIUM (BEAKER) (test 8.8 mg/dL 8.4-10.2 dgtn=991) AST (SGOT) (BEAKER) (test 73 U/L 5-34 glfb=997) ALT (SGPT) (BEAKER) (test 25 U/L 6-55 jlqf=930) EGFR (BEAKER) (test 98 mL/min/1.73 sq m ESTIMATED GFR IS NOT bqhn=1603) ACCURATE CREATININE CLEARANCE IN PREDICTING GLOMERULAR FILTRATION RATE. ESTIMATED GFR IS NOT APPLICABLE FOR DIALYSIS PATIENTS. POCT-GLUCOSE [id number] 22:34:00 Test Item Value Reference Range Comments POC-GLUCOSE METER (BEAKER) 186 mg/dL 70-110 TESTED AT [address] (test cgfn=1503) [place] [id number] POCT-GLUCOSE [id number] 18:03:00 Test Item Value Reference Range Comments POC-GLUCOSE METER (BEAKER) 206 mg/dL 70-110 TESTED AT [address] (test gcff=6891) [place] [address] RAD, MANDIBLE, MIN 4 [id number] 17:16:00Reason for exam:->liver transplant evalShould this be [...] Mauricioeport Verified Date/Time: 12/21/2018 17:16:26 Reading Location: [address] Reading Room POCT-GLUCOSE [id number] 11:42:00 Test Item Value Reference Range Comments POC-GLUCOSE METER (BEAKER) 305 mg/dL 70-110 Notified JADA NIX/TESTED AT [facility] (test kkkt=1919) [address] [place] [address] POCT-GLUCOSE [id number] 08:14:00 Test Item Value Reference Range Comments POC-GLUCOSE METER (BEAKER) 288 mg/dL 70-110 TESTED AT [address] (test jhlt=5864) [facility] [address] POCT-GLUCOSE [id number] 23:29:00 Test Item Value Reference Range Comments POC-GLUCOSE METER (BEAKER) 134 mg/dL 70-110 TESTED AT [address] (test oqdf=3985) [place] [id number] POCT-GLUCOSE [id number] 18:42:00 Test Item Value Reference Range Comments POC-GLUCOSE METER (BEAKER) 357 mg/dL 70-110 TESTED AT [address] (test fqko=7156) [place] [address] CRYPTOCOCCAL [id number] 11:32:00 Test Item Value Reference Range Comments CRYPTOCOCCAL ANTIGEN, SERUM (BEAKER) (test Negative Negative, Interference jasq=3537) [id number] 11:30:00 Test Item Value Reference Range Comments RPR SCREEN (BEAKER) (test idfu=083) Nonreactive Nonreactive HEMOGLOBIN [id number] 10:23:00 Test Item Value Reference Range Comments HEMOGLOBIN A1C (BEAKER) (test eaqt=412) 6.7 % 4.3-6.1 CYTOMEGALOVIRUS ANTIBODY, [id number] 09:29:00 Test Item Value Reference Range Comments CYTOMEGALOVIRUS, IGG (BEAKER) (test jwft=3617) Positive Negative, Equivocal CMV IgG Result Interpretation: </=0.8 Al Negative 0.9-1.0 Al Equivocal &gt ;/=1.1 Al PositiveCYTOMEGALOVIRUS ANTIBODY, [id number] 09:29:00 Test Item Value Reference Range Comments CYTOMEGALOVIRUS IGM ANTIBODY (BEAKER) (test Negative Negative, Equivocal rbiy=6115) CMV IgM Result Interpretation: </=0.8 Al Negative 0.9-1.0 Al Equivocal >/=1.1 Al PositiveEBV ANTIBODY, [id number] 09:29:00 Test Item Value Reference Range Comments JAQUELINE MEDRANO VIRAL CAPSID ANTIGEN IGG (BEAKER) Positive Negative, Equivocal (test bfxx=9101) Jaqueline Medrano Viral Capsid Antigen IgG Result Interpretation: </=0.8 Al Negative 0.9-1.0 Al Equivocal >/=1.1 Al PositiveEBV ANTIBODY, [id number] 09:29:00 Test Item Value Reference Range Comments JAQUELINE MEDRANO VIRAL CAPSID ANTIGEN IGM (BEAKER) Negative Negative, Equivocal (test mukt=2054) Jaqueline Medrano Viral Capsid Antigen IgM Result Interpretation: </=0.8 Al Negative 0.9-1.0 Al Equivocal >/=1.1 Al PositivePOCT-GLUCOSE [id number] 07:53:00 Test Item Value Reference Range Comments POC-GLUCOSE METER (BEAKER) 168 mg/dL 70-[address] [facility] [address] [facility] (test zsef=9196) [facility] [address] CBC (HEMOGRAM ONLY)2018-12-20 07:02:00 Test Item Value Reference Range Comments WHITE BLOOD CELL COUNT (BEAKER) (test gpxg=704) 4.7 K/ L 3.5-10.5 RED BLOOD CELL COUNT (BEAKER) (test dpuc=740) 4.09 M/ L 4.63-6.08 HEMOGLOBIN (BEAKER) (test qefe=272) 8.1 GM/DL 13.7-17.5 HEMATOCRIT (BEAKER) (test jblm=630) 28.3 % 40.1-51.0 MEAN CORPUSCULAR VOLUME (BEAKER) (test xvpz=326) 69.2 fL 79.0-92.2 MEAN CORPUSCULAR HEMOGLOBIN (BEAKER) (test 19.8 pg 25.7-32.2 huak=063) MEAN CORPUSCULAR HEMOGLOBIN CONC (BEAKER) (test 28.6 GM/DL 32.3-36.5 uggq=473) RED CELL DISTRIBUTION WIDTH (BEAKER) (test 21.8 % 11.6-14.4 jtfh=174) PLATELET COUNT (BEAKER) (test fmjf=009) 121 K/CU MM 150-450 MEAN PLATELET VOLUME (BEAKER) (test wiud=636) 10.6 fL 9.4-12.4 NUCLEATED RED BLOOD CELLS (BEAKER) (test 0 /100 WBC 0-0 juds=987) CALCIUM, [id number] 06:36:00 Test Item Value Reference Range Comments CALCIUM IONIZED (BEAKER) (test fxuz=708) 1.07 mmol/L 1.12-1.27 PH, BLOOD (BEAKER) (test ctpu=9879) 7.41 HEPATIC FUNCTION [id number] 06:32:00 Test Item Value Reference Range Comments TOTAL PROTEIN (BEAKER) (test gwlz=967) 6.4 gm/dL 6.0-8.3 ALBUMIN (BEAKER) (test pdus=3243) 2.6 g/dL 3.5-5.0 BILIRUBIN TOTAL (BEAKER) (test vupr=363) 0.6 mg/dL 0.2-1.2 BILIRUBIN DIRECT (BEAKER) (test gkdu=122) 0.4 mg/dL 0.1-0.5 ALKALINE PHOSPHATASE (BEAKER) (test nymb=313) 127 U/L 40-150 AST (SGOT) (BEAKER) (test qclh=895) 54 U/L 5-34 ALT (SGPT) (BEAKER) (test rrjh=293) 22 U/L 6-55 BASIC METABOLIC [id number] 06:32:00 Test Item Value Reference Range Comments SODIUM (BEAKER) (test 138 meq/L 136-145 famb=458) POTASSIUM (BEAKER) (test 3.8 meq/L 3.5-5.1 cdoh=524) CHLORIDE (BEAKER) (test 104 meq/L 98-107 yado=582) CO2 (BEAKER) (test 26 meq/L 22-29 abbj=532) BLOOD UREA NITROGEN 8 mg/dL 7-21 (BEAKER) (test fcsa=568) CREATININE (BEAKER) (test 0.85 mg/dL 0.57-1.25 ojko=839) GLUCOSE RANDOM (BEAKER) 167 mg/dL 70-105 (test bsou=233) CALCIUM (BEAKER) (test 8.3 mg/dL 8.4-10.2 yeli=816) EGFR (BEAKER) (test 94 mL/min/1.73 sq m ESTIMATED GFR IS NOT hmbg=5998) ACCURATE CREATININE CLEARANCE IN PREDICTING GLOMERULAR FILTRATION RATE. ESTIMATED GFR IS NOT APPLICABLE FOR DIALYSIS PATIENTS. POCT-GLUCOSE [id number] 23:08:00 Test Item Value Reference Range Comments POC-GLUCOSE METER (BEAKER) 284 mg/dL 70-[address] [facility] [address] [facility] (test sbdp=6900) [facility] [address] POCT-GLUCOSE [id number] 20:20:00 Test Item Value Reference Range Comments POC-GLUCOSE METER (BEAKER) 185 mg/dL 70-[address] [facility] [address] [facility] (test srbl=6585) [facility] [address] BLOOD GAS, [id number] 20:05:00 Test Item Value Reference Range Comments PH ARTERIAL (BEAKER) (test qgvk=990) 7.48 7.35-7.45 PCO2 ARTERIAL (BEAKER) (test eapj=908) 38 mmHg 35-45 PO2 ARTERIAL (BEAKER) (test jzgd=228) 83 mmHg 80-90 O2 SATURATION ARTERIAL (BEAKER) (test dryn=992) 97.1 % 96.0-97.0 HCO3 ARTERIAL (BEAKER) (test vydr=095) 28 mmol/L 21-29 BASE EXCESS ARTERIAL (BEAKER) (test ssgk=839) 4.0 mmol/L -2.0-3.0 PATIENT TEMPERATURE (BEAKER) (test iiov=1242) 36.3 C FIO2 (BEAKER) (test hnak=6537) 21.0 % HEPATITIS B SURFACE [id number] 19:10:00 Test Item Value Reference Range Comments HEPATITIS B SURFACE ANTIBODY (BEAKER) (test < mIU/mL <8.0 athk=381) VITAMIN D, [id number] 19:08:00 Test Item Value Reference Range Comments VITAMIN D 25-OH (BEAKER) (test ercm=6250) 6.6 ng/mL 6.6-49.9 Effective 07/04/2017: Reference Range ChangeNew: 6.6-49.9 ng/mL Previous: 13.0 -47.8 ng/mLRecommended Vitamin D Target Range: 30.0-40.0 ng/mLCARCINOEMBRYONIC ANTIGEN (CEA)2018-12-19 19:07:00 Test Item Value Reference Range Comments CARCINOEMBRYONIC ANTIGEN (BEAKER) (test bleo=187) 1.9 ng/mL 0.0-5.0 HEPATITIS B SURFACE [id number] 19:07:00 Test Item Value Reference Range Comments HEPATITIS B SURFACE ANTIGEN (2) (BEAKER) (test Nonreactive Nonreactive wjuf=0801) HEPATITIS B CORE ANTIBODY, [id number] 19:07:00 Test Item Value Reference Range Comments HEPATITIS B CORE IGM ANTIBODY (BEAKER) (test Nonreactive Nonreactive teot=252) HEPATITIS A ANTIBODY, [id number] 19:07:00 Test Item Value Reference Range Comments HEPATITIS A IGM ANTIBODY (BEAKER) (test Nonreactive Nonreactive nbpp=511) [id number] 18:59:00 Test Item Value Reference Range Comments PROSTATE SPECIFIC ANTIGEN (BEAKER) (test putu=127) 0.5 ng/mL 0.0-4.0 HIV-1 ANTIGEN WITH HIV-1/2 [id number] 18:59:00 Test Item Value Reference Range Comments HIV-1 ANTIGEN WITH HIV 1\T\2 ANTIBODY (2) Nonreactive Nonreactive (BEAKER) (test jbkz=5293) [id number] 18:58:00 Test Item Value Reference Range Comments TRANSFERRIN (BEAKER) (test lpdz=255) 288 mg/dL 174-382 [id number] 18:22:00 Test Item Value Reference Range Comments THYROID STIMULATING HORMONE (BEAKER) (test 5.24 uIU/mL 0.35-4.94 iafs=030) [id number] 18:19:00 Test Item Value Reference Range Comments T4 TOTAL (BEAKER) (test ixkz=096) 6.9 ug/dL 4.9-11.7 URIC [id number] 18:01:00 Test Item Value Reference Range Comments URIC ACID (BEAKER) (test ltyw=383) 4.7 mg/dL 2.6-7.2 [id number] 18:01:00 Test Item Value Reference Range Comments MAGNESIUM (BEAKER) (test dicy=548) 1.7 mg/dL 1.6-2.6 [id number] 18:01:00 Test Item Value Reference Range Comments PHOSPHORUS (BEAKER) (test djnr=997) 2.6 mg/dL 2.3-4.7 LIPID [id number] 18:01:00 Test Item Value Reference Range Comments TRIGLYCERIDES (BEAKER) (test suzr=219) 47 mg/dL CHOLESTEROL (BEAKER) (test vwga=683) 104 mg/dL HDL CHOLESTEROL (BEAKER) (test fube=072) 33 mg/dL LDL CHOLESTEROL CALCULATED (BEAKER) (test 62 mg/dL ofpc=177) Triglyceride Reference Range: Low Risk <150 Borderline [...] Range Comments GAMMA GLUTAMYL TRANSFERASE (BEAKER) (test wuvy=634) 24 U/L 9-64 [id number] 18:00:00 Test Item Value Reference Range Comments ETHANOL (BEAKER) (test robu=755) < mg/dL <=10 [id number] 12:48:00 Test Item Value Reference Range Comments D-DIMER QUANTITATIVE (BEAKER) (test brvm=499) 6.75 MG/L FEU <0.50 Intended Use: The D-Dimer Assay can be used to aid in the diagnosis of Deep Vein Thrombosis (DVT) and Pulmonary Embolism Disease (PED).In patients with low pre-test probability, various studies concerning STA Liatest D-dimer test have reported that with a cutoff value of 0.50 MG/L FEU, the Negative Predictive Value (NPV) regarding the exclusion of thrombosis is within 95-100% range.[id number] 12:41:00 Test Item Value Reference Range Comments PARTIAL THROMBOPLASTIN TIME (BEAKER) (test 35.4 seconds 22.5-36.0 sjmx=156) PROTHROMBIN [id number] 12:39:00 Test Item Value Reference Range Comments PROTIME (BEAKER) (test ppyw=719) 14.9 seconds 11.7-14.7 INR (BEAKER) (test lpkf=021) 1.2 <=5.9 RECOMMENDED COUMADIN/WARFARIN INR THERAPY RANGESSTANDARD DOSE: 2.0 - 3.0 Includes: PROPHYLAXIS forvenous thrombosis, systemic embolization; TREATMENT for venous thrombosis and/or pulmonary embolus.HIGH RISK: Target INR is 2.5-3.5 for patients with mechanical heart valves.POCT-GLUCOSE [id number] 11:36:00 Test Item Value Reference Range Comments POC-GLUCOSE METER (BEAKER) 267 mg/dL 70-110 TESTED AT [place] [id number] [facility] (test xvsj=6921) [place] [address] POCT-GLUCOSE [id number] 10:02:00 Test Item Value Reference Range Comments POC-GLUCOSE METER (BEAKER) 249 mg/dL 70-110 TESTED AT [address] (test udol=9213) [place] [address] MISCELLANEOUS LAB [id number] 07:59:00 Test Item Value Reference Range Comments SCAN RESULT (test abhs=[id number]) POCT-GLUCOSE [id number] 07:50:00 Test Item Value Reference Range Comments POC-GLUCOSE METER (BEAKER) 228 mg/dL 70-110 TESTED AT [address] (test oldt=9299) [place] [address] HEPATIC FUNCTION [id number] 06:21:00 Test Item Value Reference Range Comments TOTAL PROTEIN (BEAKER) (test emzj=552) 6.8 gm/dL 6.0-8.3 ALBUMIN (BEAKER) (test qmbt=2831) 2.8 g/dL 3.5-5.0 BILIRUBIN TOTAL (BEAKER) (test vglr=872) 0.9 mg/dL 0.2-1.2 BILIRUBIN DIRECT (BEAKER) (test zyve=160) 0.5 mg/dL 0.1-0.5 ALKALINE PHOSPHATASE (BEAKER) (test cknj=168) 117 U/L 40-150 AST (SGOT) (BEAKER) (test ymug=528) 47 U/L 5-34 ALT (SGPT) (BEAKER) (test dfdx=263) 18 U/L 6-55 BASIC METABOLIC [id number] 06:21:00 Test Item Value Reference Range Comments SODIUM (BEAKER) (test 136 meq/L 136-145 leva=020) POTASSIUM (BEAKER) (test 3.8 meq/L 3.5-5.1 ewtl=051) CHLORIDE (BEAKER) (test 104 meq/L 98-107 moys=804) CO2 (BEAKER) (test 26 meq/L 22-29 iuwb=747) BLOOD UREA NITROGEN 7 mg/dL 7-21 (BEAKER) (test mmzc=944) CREATININE (BEAKER) (test 0.84 mg/dL 0.57-1.25 ogba=347) GLUCOSE RANDOM (BEAKER) 152 mg/dL 70-105 (test xunu=624) CALCIUM (BEAKER) (test 8.4 mg/dL 8.4-10.2 oelq=214) EGFR (BEAKER) (test 95 mL/min/1.73 sq m ESTIMATED GFR IS NOT xuwf=5772) ACCURATE CREATININE CLEARANCE IN PREDICTING GLOMERULAR FILTRATION RATE. ESTIMATED GFR IS NOT APPLICABLE FOR DIALYSIS PATIENTS. CBC (HEMOGRAM ONLY)2018-12-19 06:02:00 Test Item Value Reference Range Comments WHITE BLOOD CELL COUNT (BEAKER) (test vkfa=016) 5.3 K/ L 3.5-10.5 RED BLOOD CELL COUNT (BEAKER) (test tbvz=546) 4.18 M/ L 4.63-6.08 HEMOGLOBIN (BEAKER) (test sgbt=830) 8.2 GM/DL 13.7-17.5 HEMATOCRIT (BEAKER) (test jwyf=388) 28.9 % 40.1-51.0 MEAN CORPUSCULAR VOLUME (BEAKER) (test eerp=339) 69.1 fL 79.0-92.2 MEAN CORPUSCULAR HEMOGLOBIN (BEAKER) (test 19.6 pg 25.7-32.2 szpb=003) MEAN CORPUSCULAR HEMOGLOBIN CONC (BEAKER) (test 28.4 GM/DL 32.3-36.5 roya=055) RED CELL DISTRIBUTION WIDTH (BEAKER) (test 21.5 % 11.6-14.4 mccr=929) PLATELET COUNT (BEAKER) (test vzdw=707) 130 K/CU MM 150-450 MEAN PLATELET VOLUME (BEAKER) (test ukoe=075) 9.9 fL 9.4-12.4 NUCLEATED RED BLOOD CELLS (BEAKER) (test 0 /100 WBC 0-0 nczx=869) POCT-GLUCOSE [id number] 21:21:00 Test Item Value Reference Range Comments POC-GLUCOSE METER (BEAKER) 213 mg/dL 70-[address] [facility] [address] (test rzcr=5590) [place] [address] MR, ABDOMEN, [id number] 19:09:00Addendum BeginsREPORT STATUS:A Beer Maker error in the third 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 It should read: Questionable small nonocclusive thrombus in the high SUPERIOR mesenteric vein. Signed: Roe Solorzano MDReport Verified Date/Time: 12/18/2018 19:09:20 Reading Location: [facility] C013 CT Body Reading RoomAddendum EndsFINAL REPORT [...] MDReport Verified Date/Time: 12/17/2018 10:57:37 Reading Location: [facility] C013Y CT Body Reading Room POCT-GLUCOSE [id number] 17:47:00 Test Item Value Reference Range Comments POC-GLUCOSE METER (BEAKER) 199 mg/dL 70-110 TESTED AT [address] (test oftp=6869) [facility] [address] POCT-GLUCOSE [id number] 12:02:00 Test Item Value Reference Range Comments POC-GLUCOSE METER (BEAKER) 301 mg/dL 70-110 TESTED AT [address] (test ibgs=8323) [place] [address] HEPATITIS C PCR, [id number] 09:48:00 Test Item Value Reference Range Comments HCV NUMERIC RESULT (BEAKER) (test wvvy=7183) 111682 IU/mL <15 This test uses a Real-Time Polymerase Chain Reaction (RT-PCR) methodology and was performed using MAJOR Ampliprep/MAJOR TaqMan HCV test kit version 2.0 ( [employer]).Reportable range for this assay is 15 - 100,000, 000 IU per mL (1.18 - 8.00 Log IU/mL).POCT-GLUCOSE [id number] 09:18:00 Test Item Value Reference Range Comments POC-GLUCOSE METER (BEAKER) 284 mg/dL 70-110 TESTED AT [address] (test utab=7458) [facility] [address] HEPATIC FUNCTION [id number] 07:08:00 Test Item Value Reference Range Comments TOTAL PROTEIN (BEAKER) (test gavy=910) 6.5 gm/dL 6.0-8.3 ALBUMIN (BEAKER) (test vsdu=0833) 2.7 g/dL 3.5-5.0 BILIRUBIN TOTAL (BEAKER) (test kmpm=455) 0.9 mg/dL 0.2-1.2 BILIRUBIN DIRECT (BEAKER) (test tbpt=638) 0.5 mg/dL 0.1-0.5 ALKALINE PHOSPHATASE (BEAKER) (test tuls=441) 103 U/L 40-150 AST (SGOT) (BEAKER) (test sbdc=585) 40 U/L 5-34 ALT (SGPT) (BEAKER) (test qflc=796) 16 U/L 6-55 BASIC METABOLIC [id number] 07:08:00 Test Item Value Reference Range Comments SODIUM (BEAKER) (test 135 meq/L 136-145 obhz=704) POTASSIUM (BEAKER) (test 4.0 meq/L 3.5-5.1 fiux=865) CHLORIDE (BEAKER) (test 105 meq/L 98-107 yakk=314) CO2 (BEAKER) (test 25 meq/L 22-29 ygyn=184) BLOOD UREA NITROGEN 9 mg/dL 7-21 (BEAKER) (test vpee=078) CREATININE (BEAKER) (test 0.88 mg/dL 0.57-1.25 mebz=891) GLUCOSE RANDOM (BEAKER) 175 mg/dL 70-105 (test kgij=830) CALCIUM (BEAKER) (test 8.2 mg/dL 8.4-10.2 qubz=590) EGFR (BEAKER) (test 90 mL/min/1.73 sq m ESTIMATED GFR IS NOT zgvr=7822) ACCURATE CREATININE CLEARANCE IN PREDICTING GLOMERULAR FILTRATION RATE. ESTIMATED GFR IS NOT APPLICABLE FOR DIALYSIS PATIENTS. CBC (HEMOGRAM ONLY)2018-12-18 06:39:00 Test Item Value Reference Range Comments WHITE BLOOD CELL COUNT (BEAKER) (test hyby=453) 6.9 K/ L 3.5-10.5 RED BLOOD CELL COUNT (BEAKER) (test qpik=507) 4.15 M/ L 4.63-6.08 HEMOGLOBIN (BEAKER) (test axhu=697) 8.0 GM/DL 13.7-17.5 HEMATOCRIT (BEAKER) (test vaiq=822) 28.7 % 40.1-51.0 MEAN CORPUSCULAR VOLUME (BEAKER) (test spke=828) 69.2 fL 79.0-92.2 MEAN CORPUSCULAR HEMOGLOBIN (BEAKER) (test 19.3 pg 25.7-32.2 kdjp=357) MEAN CORPUSCULAR HEMOGLOBIN CONC (BEAKER) (test 27.9 GM/DL 32.3-36.5 hrrm=196) RED CELL DISTRIBUTION WIDTH (BEAKER) (test 21.3 % 11.6-14.4 omdw=673) PLATELET COUNT (BEAKER) (test rndg=571) 122 K/CU MM 150-450 NUCLEATED RED BLOOD CELLS (BEAKER) (test 0 /100 WBC 0-0 bynb=922) POCT-GLUCOSE [id number] 22:48:00 Test Item Value Reference Range Comments POC-GLUCOSE METER (BEAKER) 237 mg/dL 70-[address] [facility] [address] [facility] (test jfnn=8113) [facility] [address] ANTI-NUCLEAR ANTIBODY (WILLOW)2018-12-17 11:52:00 Test Item Value Reference Range Comments ANTI-NUCLEAR ANTIBODY (WILLOW) (BEAKER) (test Positive Negative reoe=184) Test performed by IFA method.WILLOW TITER AND [id number] 11:52:00 Test Item Value Reference Range Comments WILLOW TITER (BEAKER) (test nsqy=7743) :160 WILLOW PATTERN (BEAKER) (test xoym=8402) Speckled [id number] 05:45:00 Test Item Value Reference Range Comments MAGNESIUM (BEAKER) (test 2.1 mg/dL 1.6-2.6 Specimen slightly hemolyzed vflt=171) [id number] 05:45:00 Test Item Value Reference Range Comments PHOSPHORUS (BEAKER) (test 3.0 mg/dL 2.3-4.7 Specimen slightly hemolyzed npnj=063) BASIC METABOLIC [id number] 05:45:00 Test Item Value Reference Range Comments SODIUM (BEAKER) (test 136 meq/L 136-145 vtyb=089) POTASSIUM (BEAKER) (test 4.3 meq/L 3.5-5.1 Specimen slightly eeev=174) hemolyzed CHLORIDE (BEAKER) (test 106 meq/L 98-107 njiu=110) CO2 (BEAKER) (test 25 meq/L 22-29 zogf=452) BLOOD UREA NITROGEN 15 mg/dL 7-21 (BEAKER) (test ixyl=842) CREATININE (BEAKER) (test 1.06 mg/dL 0.57-1.25 Specimen slightly kxba=030) hemolyzed GLUCOSE RANDOM (BEAKER) 222 mg/dL 70-105 (test tzvs=873) CALCIUM (BEAKER) (test 8.1 mg/dL 8.4-10.2 plzk=861) EGFR (BEAKER) (test 73 mL/min/1.73 sq m ESTIMATED GFR IS NOT ppkq=3931) ACCURATE CREATININE CLEARANCE IN PREDICTING GLOMERULAR FILTRATION RATE. ESTIMATED GFR IS NOT APPLICABLE FOR DIALYSIS PATIENTS. HEPATIC FUNCTION [id number] 05:45:00 Test Item Value Reference Range Comments TOTAL PROTEIN (BEAKER) (test 6.6 gm/dL 6.0-8.3 Specimen slightly hemolyzed aavw=976) ALBUMIN (BEAKER) (test 2.6 g/dL 3.5-5.0 Specimen slightly hemolyzed xnpc=7923) BILIRUBIN TOTAL (BEAKER) (test 0.9 mg/dL 0.2-1.2 Specimen slightly hemolyzed kfqm=073) BILIRUBIN DIRECT (BEAKER) (test 0.5 mg/dL 0.1-0.5 Specimen slightly hemolyzed xpwp=662) ALKALINE PHOSPHATASE (BEAKER) 109 U/L 40-150 (test hxrb=071) AST (SGOT) (BEAKER) (test 53 U/L 5-34 Specimen slightly hemolyzed sghn=137) ALT (SGPT) (BEAKER) (test 21 U/L 6-55 Specimen slightly hemolyzed xajv=600) CBC W/PLT COUNT & AUTO [id number] 04:48:00 Test Item Value Reference Range Comments WHITE BLOOD CELL COUNT 8.1 K/ L 3.5-10.5 (BEAKER) (test pnyi=221) RED BLOOD CELL COUNT (BEAKER) 4.33 M/ L 4.63-6.08 (test rlxy=686) HEMOGLOBIN (BEAKER) (test 8.3 GM/DL 13.7-17.5 cjzu=217) HEMATOCRIT (BEAKER) (test 29.9 % 40.1-51.0 fxbp=074) MEAN CORPUSCULAR VOLUME 69.1 fL 79.0-92.2 (BEAKER) (test uevr=215) MEAN CORPUSCULAR HEMOGLOBIN 19.2 pg 25.7-32.2 (BEAKER) (test foen=948) MEAN CORPUSCULAR HEMOGLOBIN 27.8 GM/DL 32.3-36.5 CONC (BEAKER) (test szps=114) RED CELL DISTRIBUTION WIDTH 21.1 % 11.6-14.4 (BEAKER) (test olpz=521) PLATELET COUNT (BEAKER) (test 141 K/CU MM 150-450 crbc=553) MEAN PLATELET VOLUME (BEAKER) fL 9.4-12.4 Unable to report due to (test sthz=218) abnormal Platelet population distribution. NUCLEATED RED BLOOD CELLS 0 /100 WBC 0-0 (BEAKER) (test ylik=925) NEUTROPHILS RELATIVE PERCENT 70 % (BEAKER) (test hfcb=422) LYMPHOCYTES RELATIVE PERCENT 15 % (BEAKER) (test xlec=294) MONOCYTES RELATIVE PERCENT 9 % (BEAKER) (test ngte=084) EOSINOPHILS RELATIVE PERCENT 6 % (BEAKER) (test xbjj=228) BASOPHILS RELATIVE PERCENT 1 % (BEAKER) (test plsx=170) NEUTROPHILS ABSOLUTE COUNT 5.60 K/ L 1.78-5.38 (BEAKER) (test bjln=890) LYMPHOCYTES ABSOLUTE COUNT 1.18 K/ L 1.32-3.57 (BEAKER) (test qnyr=232) MONOCYTES ABSOLUTE COUNT 0.72 K/ L 0.30-0.82 (BEAKER) (test skvr=203) EOSINOPHILS ABSOLUTE COUNT 0.46 K/ L 0.04-0.54 (BEAKER) (test ioik=242) BASOPHILS ABSOLUTE COUNT 0.08 K/ L 0.01-0.08 (BEAKER) (test ascq=543) IMMATURE GRANULOCYTES-RELATIVE 0 % 0-1 PERCENT (BEAKER) (test ussd=4700) HEPATITIS C [id number] 21:49:00 Test Item Value Reference Range Comments HEPATITIS C ANTIBODY (BEAKER) (test hhsi=720) Reactive Nonreactive HEPATITIS A ANTIBODY, [id number] 21:49:00 Test Item Value Reference Range Comments HEPATITIS A IGG ANTIBODY (BEAKER) (test binu=7541) Reactive Nonreactive ALPHA FETOPROTEIN (AFP), TUMOR [id number] 21:48:00 Test Item Value Reference Range Comments ALPHA-FETOPROTEIN (BEAKER) (test lhtt=6114) 5.3 ng/mL <10.0 HEPATITIS B CORE ANTIBODY, [id number] 21:48:00 Test Item Value Reference Range Comments HEPATITIS B CORE TOTAL ANTIBODY (BEAKER) (test Nonreactive Nonreactive yhqf=566) [id number] 21:13:00 Test Item Value Reference Range Comments FERRITIN (BEAKER) (test xytw=245) 17 ng/mL 5-275 [id number] 20:56:00 Test Item Value Reference Range Comments ALPHA-1 ANTITRYPSIN (BEAKER) 137.60 mg/dL 90.00-200.00 Specimen slightly hemolyzed (test kdlr=837) IRON, TIBC, % SAT. (WITHOUT FERRITIN)2018-12-16 20:55:00 Test Item Value Reference Range Comments IRON (BEAKER) (test uwfv=739) 56.0 ug/dL 40.0-160.0 TOTAL IRON BINDING CAPACITY (BEAKER) (test 360 ug/dL 250-450 vgml=287) IRON % SATURATION (2) (BEAKER) (test sjps=2720) 16 % 20-55 [id number] 20:52:00 Test Item Value Reference Range Comments ETHANOL (BEAKER) (test npwm=132) < mg/dL <=10 HEMOGLOBIN AND [id number] 20:37:00 Test Item Value Reference Range Comments HEMOGLOBIN (BEAKER) (test ozjq=436) 9.2 GM/DL 13.7-17.5 HEMATOCRIT (BEAKER) (test uund=032) 32.6 % 40.1-51.0 U/S, ABDOMINAL, WITH [id number] 18:22:00Reason for exam:->liver cirrhosis, variceal bleed, please [...] MDReport Verified Date/Time: 12/16/2018 18:22:50 Reading Location: [address] [facility] [id number] 12:25:00 Test Item Value Reference Range Comments SODIUM (BEAKER) (test 135 meq/L 136-145 cldt=717) POTASSIUM (BEAKER) (test 4.7 meq/L 3.5-5.1 ovyp=788) CHLORIDE (BEAKER) (test 105 meq/L 98-107 yfiz=663) CO2 (BEAKER) (test 25 meq/L 22-29 vdbw=606) BLOOD UREA NITROGEN 16 mg/dL 7-21 (BEAKER) (test ckjk=523) CREATININE (BEAKER) (test 1.01 mg/dL 0.57-1.25 wijo=034) GLUCOSE RANDOM (BEAKER) 162 mg/dL 70-105 (test kelm=197) CALCIUM (BEAKER) (test 8.1 mg/dL 8.4-10.2 itfu=464) EGFR (BEAKER) (test 77 mL/min/1.73 sq m ESTIMATED GFR IS NOT giad=0520) ACCURATE CREATININE CLEARANCE IN PREDICTING GLOMERULAR FILTRATION RATE. ESTIMATED GFR IS NOT APPLICABLE FOR DIALYSIS PATIENTS. HEMOGLOBIN AND [id number] 12:06:00 Test Item Value Reference Range Comments HEMOGLOBIN (BEAKER) (test mgww=713) 8.6 GM/DL 13.7-17.5 HEMATOCRIT (BEAKER) (test pxuc=071) 31.4 % 40.1-51.0 HEMOGLOBIN AND [id number] 08:52:00 Test Item Value Reference Range Comments HEMOGLOBIN (BEAKER) (test arkr=948) 8.7 GM/DL 13.7-17.5 HEMATOCRIT (BEAKER) (test mbqh=990) 30.9 % 40.1-51.0 CALCIUM, [id number] 05:54:00 Test Item Value Reference Range Comments CALCIUM IONIZED (BEAKER) (test mcmt=609) 1.08 mmol/L 1.12-1.27 PH, BLOOD (BEAKER) (test ywyz=7626) 7.34 [id number] 05:50:00 Test Item Value Reference Range Comments PHOSPHORUS (BEAKER) (test ckvx=875) 3.4 mg/dL 2.3-4.7 [id number] 05:50:00 Test Item Value Reference Range Comments MAGNESIUM (BEAKER) (test uraj=222) 1.6 mg/dL 1.6-2.6 BASIC METABOLIC [id number] 05:50:00 Test Item Value Reference Range Comments SODIUM (BEAKER) (test 138 meq/L 136-145 rknt=444) POTASSIUM (BEAKER) (test 5.4 meq/L 3.5-5.1 mivz=628) CHLORIDE (BEAKER) (test 108 meq/L 98-107 ahsf=498) CO2 (BEAKER) (test 22 meq/L 22-29 rayc=465) BLOOD UREA NITROGEN 14 mg/dL 7-21 (BEAKER) (test spia=642) CREATININE (BEAKER) (test 1.00 mg/dL 0.57-1.25 dwlw=744) GLUCOSE RANDOM (BEAKER) 144 mg/dL 70-105 (test kysk=726) CALCIUM (BEAKER) (test 8.1 mg/dL 8.4-10.2 uftj=512) EGFR (BEAKER) (test 78 mL/min/1.73 sq m ESTIMATED GFR IS NOT rhgq=1851) ACCURATE CREATININE CLEARANCE IN PREDICTING GLOMERULAR FILTRATION RATE. ESTIMATED GFR IS NOT APPLICABLE FOR DIALYSIS PATIENTS. CBC W/PLT COUNT & AUTO [id number] 05:44:00 Test Item Value Reference Range Comments WHITE BLOOD CELL COUNT 7.2 K/ L 3.5-10.5 (BEAKER) (test ecwg=379) RED BLOOD CELL COUNT (BEAKER) 4.48 M/ L 4.63-6.08 (test pdpd=486) HEMOGLOBIN (BEAKER) (test 8.7 GM/DL 13.7-17.5 fsob=285) HEMATOCRIT (BEAKER) (test 31.4 % 40.1-51.0 jnsr=210) MEAN CORPUSCULAR VOLUME 70.1 fL 79.0-92.2 (BEAKER) (test wbnn=947) MEAN CORPUSCULAR HEMOGLOBIN 19.4 pg 25.7-32.2 (BEAKER) (test bkwb=519) MEAN CORPUSCULAR HEMOGLOBIN 27.7 GM/DL 32.3-36.5 CONC (BEAKER) (test yjol=469) RED CELL DISTRIBUTION WIDTH 21.0 % 11.6-14.4 (BEAKER) (test afmt=719) PLATELET COUNT (BEAKER) (test 135 K/CU MM 150-450 oyfs=347) MEAN PLATELET VOLUME (BEAKER) fL 9.4-12.4 Unable to report due to (test jvmy=615) abnormal Platelet population distribution. NUCLEATED RED BLOOD CELLS 0 /100 WBC 0-0 (BEAKER) (test ohjz=922) NEUTROPHILS RELATIVE PERCENT 72 % (BEAKER) (test irxh=691) LYMPHOCYTES RELATIVE PERCENT 12 % (BEAKER) (test bpuo=279) MONOCYTES RELATIVE PERCENT 11 % (BEAKER) (test born=922) EOSINOPHILS RELATIVE PERCENT 4 % (BEAKER) (test porp=342) BASOPHILS RELATIVE PERCENT 1 % (BEAKER) (test bshx=883) NEUTROPHILS ABSOLUTE COUNT 5.15 K/ L 1.78-5.38 (BEAKER) (test hvfg=768) LYMPHOCYTES ABSOLUTE COUNT 0.89 K/ L 1.32-3.57 (BEAKER) (test rkpv=172) MONOCYTES ABSOLUTE COUNT 0.76 K/ L 0.30-0.82 (BEAKER) (test smzq=160) EOSINOPHILS ABSOLUTE COUNT 0.29 K/ L 0.04-0.54 (BEAKER) (test dmjt=294) BASOPHILS ABSOLUTE COUNT 0.06 K/ L 0.01-0.08 (BEAKER) (test xxtz=089) IMMATURE GRANULOCYTES-RELATIVE 0 % 0-1 PERCENT (BEAKER) (test gldo=0037) HEMOGLOBIN AND [id number] 00:02:00 Test Item Value Reference Range Comments HEMOGLOBIN (BEAKER) (test wpot=158) 7.8 GM/DL 13.7-17.5 HEMATOCRIT (BEAKER) (test ttta=196) 28.0 % 40.1-51.0 POCT-GLUCOSE [id number] 23:24:00 Test Item Value Reference Range Comments POC-GLUCOSE METER (BEAKER) 168 mg/dL 70-[address] [facility] [address] [facility] (test jrbw=7364) [facility] [address] RAD, CHEST, 1 VIEW, NON [id number] 23:07:00Reason for exam:->NG tube placementShould this be [...] MDReport Verified Date/Time: 12/15/2018 23:07:08 Reading Location: [facility] C013Y CT Body Reading Room HEMOGLOBIN AND [id number] 20:12:00 Test Item Value Reference Range Comments HEMOGLOBIN (BEAKER) (test lvjt=433) 7.4 GM/DL 13.7-17.5 HEMATOCRIT (BEAKER) (test ltko=876) 26.7 % 40.1-51.0 RAD, CHEST, 1 VIEW, NON [id number] 18:43:00Reason for exam:->s/p intubationShould this be performed [...] MDReport Verified Date/Time: 12/15/2018 18:43:24 Reading Location: [address] Consult Reading Room Electronically signed by: JORGE MTZ M.D. on 06:43 PMBASIC METABOLIC [id number] 14:38:00 Test Item Value Reference Range Comments SODIUM (BEAKER) (test 137 meq/L 136-145 chve=819) POTASSIUM (BEAKER) (test 4.8 meq/L 3.5-5.1 Specimen slightly yyhh=977) hemolyzed CHLORIDE (BEAKER) (test 105 meq/L 98-107 mioz=926) CO2 (BEAKER) (test 25 meq/L 22-29 ladl=212) BLOOD UREA NITROGEN 11 mg/dL 7-21 (BEAKER) (test pvjt=627) CREATININE (BEAKER) (test 0.84 mg/dL 0.57-1.25 Specimen slightly opkc=458) hemolyzed GLUCOSE RANDOM (BEAKER) 114 mg/dL 70-105 (test sajb=345) CALCIUM (BEAKER) (test 8.5 mg/dL 8.4-10.2 wjff=280) EGFR (BEAKER) (test 95 mL/min/1.73 sq m ESTIMATED GFR IS NOT jeqc=6115) ACCURATE CREATININE CLEARANCE IN PREDICTING GLOMERULAR FILTRATION RATE. ESTIMATED GFR IS NOT APPLICABLE FOR DIALYSIS PATIENTS. Specimen slightly ictericCOMPREHENSIVE METABOLIC [id number] 14:38:00 Test Item Value Reference Range Comments TOTAL PROTEIN (BEAKER) 7.2 gm/dL 6.0-8.3 Specimen slightly (test oygh=188) hemolyzed ALBUMIN (BEAKER) (test 2.9 g/dL 3.5-5.0 Specimen slightly xtyj=7928) hemolyzed ALKALINE PHOSPHATASE 125 U/L 40-150 (BEAKER) (test ipty=404) BILIRUBIN TOTAL (BEAKER) 2.5 mg/dL 0.2-1.2 Specimen slightly (test kgew=388) hemolyzed SODIUM (BEAKER) (test 137 meq/L 136-145 urkj=290) POTASSIUM (BEAKER) (test 4.8 meq/L 3.5-5.1 Specimen slightly whyb=984) hemolyzed CHLORIDE (BEAKER) (test 105 meq/L 98-107 ylbn=289) CO2 (BEAKER) (test 25 meq/L 22-29 nxdt=731) BLOOD UREA NITROGEN 11 mg/dL 7-21 (BEAKER) (test rykg=882) CREATININE (BEAKER) (test 0.84 mg/dL 0.57-1.25 Specimen slightly epek=915) hemolyzed GLUCOSE RANDOM (BEAKER) 114 mg/dL 70-105 (test yjgs=051) CALCIUM (BEAKER) (test 8.5 mg/dL 8.4-10.2 dpvy=893) AST (SGOT) (BEAKER) (test 56 U/L 5-34 Specimen slightly rehf=828) hemolyzed ALT (SGPT) (BEAKER) (test 21 U/L 6-55 Specimen slightly olkn=331) hemolyzed EGFR (BEAKER) (test 95 mL/min/1.73 sq m ESTIMATED GFR IS NOT eyvc=9190) ACCURATE CREATININE CLEARANCE IN PREDICTING GLOMERULAR FILTRATION RATE. ESTIMATED GFR IS NOT APPLICABLE FOR DIALYSIS PATIENTS. Specimen slightly ictericCBC (HEMOGRAM ONLY)2018-12-15 14:35:00 Test Item Value Reference Range Comments WHITE BLOOD CELL COUNT (BEAKER) (test vlxy=433) 5.6 K/ L 3.5-10.5 RED BLOOD CELL COUNT (BEAKER) (test rbkl=493) 4.43 M/ L 4.63-6.08 HEMOGLOBIN (BEAKER) (test ojoq=599) 8.5 GM/DL 13.7-17.5 HEMATOCRIT (BEAKER) (test fdlx=113) 30.7 % 40.1-51.0 MEAN CORPUSCULAR VOLUME (BEAKER) (test phig=911) 69.3 fL 79.0-92.2 MEAN CORPUSCULAR HEMOGLOBIN (BEAKER) (test 19.2 pg 25.7-32.2 rhkz=863) MEAN CORPUSCULAR HEMOGLOBIN CONC (BEAKER) (test 27.7 GM/DL 32.3-36.5 ukvl=270) RED CELL DISTRIBUTION WIDTH (BEAKER) (test 20.9 % 11.6-14.4 bsoc=072) PLATELET COUNT (BEAKER) (test kqzz=324) 150 K/CU MM 150-450 NUCLEATED RED BLOOD CELLS (BEAKER) (test 0 /100 WBC 0-0 yddk=179) LACTIC ACID, [id number] 14:34:00 Test Item Value Reference Range Comments LACTATE BLOOD VENOUS (2) (BEAKER) (test 1.4 mmol/L 0.5-2.2 wora=3589) [id number] 14:34:00 Test Item Value Reference Range Comments FIBRINOGEN LEVEL (BEAKER) (test etjs=058) 164 mg/dl 225-434 PROTHROMBIN TIME/[id number] 14:29:00 Test Item Value Reference Range Comments PROTIME (BEAKER) (test dpqn=543) 17.0 seconds 11.7-14.7 INR (BEAKER) (test uebz=795) 1.4 <=5.9 RECOMMENDED COUMADIN/WARFARIN INR THERAPY RANGESSTANDARD DOSE: 2.0 - 3.0 Includes: PROPHYLAXIS forvenous thrombosis, systemic embolization; TREATMENT for venous thrombosis and/or pulmonary embolus.HIGH RISK: Target INR is 2.5-3.5 for patients with mechanical heart valves.[id number] 14:29:00 Test Item Value Reference Range Comments PARTIAL THROMBOPLASTIN TIME (BEAKER) (test 35.0 seconds 22.5-36.0 xezb=242) [id number] 14:29:00 Test Item Value Reference Range Comments PARTIAL THROMBOPLASTIN TIME (BEAKER) (test 38.1 seconds 22.5-36.0 piaq=745) PROTHROMBIN TIME/[id number] 14:28:00 Test Item Value Reference Range Comments PROTIME (BEAKER) (test jeft=376) 15.4 seconds 11.7-14.7 INR (BEAKER) (test mbwa=223) 1.2 <=5.9 RECOMMENDED COUMADIN/WARFARIN INR THERAPY RANGESSTANDARD DOSE: 2.0 - 3.0 Includes: PROPHYLAXIS forvenous thrombosis, systemic embolization; TREATMENT for venous thrombosis and/or pulmonary embolus.HIGH RISK: Target INR is 2.5-3.5 for patients with mechanical heart valves.HEMOGLOBIN AND [id number] 14 :21:00 Test Item Value Reference Range Comments HEMOGLOBIN (BEAKER) (test fgnh=536) 8.5 GM/DL 13.7-17.5 HEMATOCRIT (BEAKER) (test zmjf=988) 30.7 % 40.1-51.0
--- OUTSIDE RECORDS SUMMARY | 2019-10-28 09:47 | XMS REPORT ---
[...] Problem Coronary artery disease involving I25.10 Active [place] coronary artery of [place] heart, angina presence unspecified Problem Alcohol abuse [...]
--- OUTSIDE RECORDS SUMMARY | 2019-10-28 09:47 | XMS REPORT ---
[...] Problem Coronary artery disease involving I25.10 Active [place] coronary artery of [place] heart, angina presence unspecified Problem Alcohol abuse [...]
--- OUTSIDE RECORDS SUMMARY | 2019-10-28 09:47 | XMS REPORT ---
[...] Problem Coronary artery disease involving I25.10 Active [place] coronary artery of [place] heart, angina presence unspecified Problem Alcohol abuse [...] End Status Dosage System Date Date Carvedilol [facility] 45865928309 6.25 MG Orally Active 1 tablet Twice a day Lactulose [facility] 11730712966 10 GM/15ML Active TAKE 30ML BY MOUTH TWICE DAILY. Lasix [facility] 43107901452 20 MG Orally Active 1 tablet Once a day Rifaximin [facility] [address]-92 550 MG Orally December Active 1 tablet Twice a day 2019 Lisinopril [facility] 38116287723 5 MG Orally Once Active 1 tablet a day Tresiba [facility] 70371299139 200 UNIT/ML Active inject 44 FlexTouch Subcutaneous units Once a day Propranolol HCl [facility] 63692151967 20 MG Orally Inactive 1 tablet Once a day on an empty stomach Spironolactone [facility] 55818553078 50 MG Orally December Active 1 tablet Once a day 07, with food 2019 Pantoprazole ND 45417410900 40 MG Orally Active 1 tablet Sodium Once a day Lactulose ND 11785169810 20 GM/30ML December Active 15 ml Orally BID 2019 BD Ultra-Fine ND 24402967550 4mm x 32Gm Jun 30, Active 1 needle [place] subcutaneously 2018 with once a day Tresiba pen Atorvastatin ND 12454945193 40 MG Orally Active 1 tablet Calcium Once a day Aspir-81 [facility] 44459074728 81 MG Orally Active 1 tablet Once a day Results No Known Results Summary Purpose eClinicalWorks Submission
--- OUTSIDE RECORDS SUMMARY | 2019-10-28 09:47 | XMS REPORT ---
[...] Problem Coronary artery disease involving I25.10 Active [place] coronary artery of [place] heart, angina presence unspecified Problem Alcohol abuse [...]
--- OUTSIDE RECORDS SUMMARY | 2019-10-28 09:47 | XMS REPORT ---
[...] Assessment Coronary artery disease involving I25.10 Active [place] coronary artery of [place] heart, angina presence unspecified Assessment Subclinical hypothyroidism [...] Problem Coronary artery disease involving I25.10 Active [place] coronary artery of [place] heart, angina presence unspecified Problem Alcohol abuse [...] End Status Dosage System Date Date Lactulose [facility] 79059281698 20 GM/30ML December Active 15 ml Orally BID 2019 Rifaximin [facility] [address]-72 550 MG Orally December Active 1 tablet Twice a day 2019 Lisinopril ND 74814996221 5 MG Orally Once Active 1 tablet a day BD Ultra-Fine [facility] 56012642531 4mm x 32Gm Jun 30, Active 1 needle [place] subcutaneously 2018 with once a day Tresiba pen Atorvastatin ND 54859012502 40 MG Orally Active 1 tablet Calcium Once a day Spironolactone ND 17977389995 50 MG Orally December Active 1 tablet Once a day , with food 2019 Pantoprazole [facility] 79540416198 40 MG Orally Active 1 tablet Sodium Once a day Lactulose [facility] 67294170632 10 GM/15ML Active TAKE 30ML BY MOUTH TWICE DAILY. Tresiba FlexTouch [facility] 00066433563 200 UNIT/ML Active inject 44 Subcutaneous units Once a day Propranolol HCl ND 63582581168 20 MG Orally Active 1 tablet Once a day on an empty stomach Aspir-81 [facility] 76632366761 81 MG Orally Active 1 tablet Once a day Lasix [facility] 03412430312 20 MG Orally Active 1 tablet Once a day Results No Known Results Summary Purpose eClinicalWorks Submission
[2019-10-28] MEDS ORDERED: NA CHLORIDE 0.9% 1,000 ML ONE (10:03)
[2019-10-28 10:41] LABS: Absolute Lymphocytes (CBC) 1.5 K/uL (0.7-4.9); Basophils % 0.7 % (0-1.3); Hematocrit 35.5 % (39.6-49.0); Lymphocytes % 19.5 % (15.3-44.8); RBC Red Blood Cell Count 5.22 M/uL (4.33-5.43)
--- NOTE | 2019-10-28 10:41 | RAD REPORT ---
EXAM DESCRIPTION: CT - Head Brain Wo Cont - 10/28/2019 10:19 am CLINICAL HISTORY: CONFUSED, transient alteration of awareness COMPARISON: Head Brain Wo Cont dated 10/19/2019 TECHNIQUE: Axial 5 mm thick images of the head were obtained without IV contrast. All CT scans are performed using dose optimization technique as appropriate and may include automated exposure control or mA/KV adjustment according to patient size. FINDINGS: No intracranial hemorrhage, mass, edema or shift of mid-line structures. No acute infarcti on changes seen. No abnormal extra-axial fluid collections. Ventricles are normal. Physiologic basal ganglia calcifications are present. Intracranial findings are similar to comparison. Mastoid air cells and visualized portions of the paranasal sinuses are clear. No acute bony findings. IMPRESSION: Negative non-contrast CT head examination for acute findings.
[2019-10-28 11:08] LABS: ALT/SGPT 81 U/L (12-78); AST/SGOT 77 U/L (15-37); Albumin 3.5 g/dL (3.4-5.0); Alkaline Phosphatase 235 U/L (45-117); BUN Blood Urea Nitrogen 23 mg/dL (7-18); Bicarbonate 23 mmol/L (21-32); Bilirubin Direct 0.3 mg/dL (0-0.2); Bilirubin Total 0.8 mg/dL (0.2-1.0); Glucose Level 293 mg/dL (74-106); Protein, Total 8.4 g/dL (6.4-8.2); Sodium Level 139 mmol/L (136-145)
[2019-10-28 11:09] LABS: Potassium 5.7 mmol/L (3.5-5.1)
--- NOTE | 2019-10-28 11:25 | ER ---
Nurse's Notes [facility] Name: Janusz Morris Jr Age: 54 yrs Sex: Male : 1965 Arrival Date: 10/28/2019 Time: 09:45 Bed 6 Private MD: Diagnosis: Dehydration;Hepatic Encephalopathy;Hyperglycemia, unspecified Presentation: 10/28 09:45 Presenting complaint: EMS states: called out for AMS at doctors office, walked in to em routine appointment and became weak, BGL 280s on scene, A\T\O 4, denies pain. Transition of care: patient was not received from another setting of care. Onset of symptoms was October 28, 2019. Risk Assessment: Do you want to hurt yourself or someone else? Patient reports no desire to harm self or others. Initial Sepsis Screen: Does the patient meet any 2 criteria? No. Patient's initial sepsis screen is negative. Does the patient have a suspected source of infection? No. Patient's initial sepsis screen is negative. Care prior to arrival: None. 09:45 Method Of Arrival: EMS: [facility] em 09:45 Acuity: AJ 3 em Historical: - Allergies: 09:49 No Known Allergies; em - Home Meds: 09:49 atorvastatin 40 mg Oral tab 1 tab once daily [Active]; carvedilol 6.25 mg Oral tab 2 em times per day [Active]; lisinopril 5 mg Oral tab 1 tab once daily [Active]; spironolactone 50 mg Oral tab 1 tab once daily [Active]; lactulose 10 gram/15 mL Oral soln 60 mL 3 times per day [Active]; furosemide 20 mg Oral tab 1 tab once daily [Active]; pantoprazole 40 mg Oral TbEC 1 tab 2 times per day [Active]; - PMHx: 09:49 Alcoholism; Cirrhosis; esophageal varices; Diabetes - NIDDM; GI Bleed; Hypertension; em - Immunization history:: Adult Immunizations up to date. - Coronavirus screen:: The patient has NOT traveled to [place], [place], or [place] in the past 14 days. The patient has NOT had contact with known/suspected case of Coronavirus?. - Social history:: Smoking status: Patient denies any tobacco usage or history of. - Family history:: not pertinent. - Ebola Screening: : Patient negative for fever greater than or equal to 101.5 degrees Fahrenheit, and additional compatible Ebola Virus Disease symptoms Patient denies exposure to infectious person Patient denies travel to an Ebola-affected area in the 21 days before illness onset No symptoms or risks identified at this time. - Hospitalizations: : No recent hospitalization is reported. Screenin:50 Abuse screen: Denies threats or abuse. Nutritional screening: No deficits noted. em Tuberculosis screening: No symptoms or risk factors identified. Fall Risk None identified. Assessment: 09:50 General: Appears in no apparent distress. comfortable, Behavior is cooperative, em appropriate for age, drowsy, Denies fever. Pain: Denies pain. Neuro: Level of Consciousness is awake, alert, obeys commands, Oriented to person, place, time, situation, Appropriate for age. Cardiovascular: Capillary refill < 3 seconds Patient's skin is warm and dry. Respiratory: Airway is patent Respiratory effort is even, unlabored, Respiratory pattern is regular, symmetrical. GI: Abdomen is flat, Reports nausea. Derm: Skin is intact, is healthy with good turgor, Skin is pink, warm \T\ dry. Musculoskeletal: Capillary refill < 3 seconds, Range of motion: intact in all extremities. 11:00 Reassessment: Patient appears in no apparent distress at this time. Patient and/or em family updated on plan of care and expected duration. Pain level reassessed. Patient is alert, oriented x 3, equal unlabored respirations, skin warm/dry/pink. reports chest pain, provider notified. 12:08 Reassessment: Dr. Conrad at bedside. em 13:16 Reassessment: Patient appears in no apparent distress at this time. Patient and/or em family updated on plan of care and expected duration. Pain level reassessed. Patient is alert, oriented x 3, equal unlabored respirations, skin warm/dry/pink. Vital Signs: 09:49 BP 161 / 73; Pulse 76; Resp 19; Temp 98.3; Pulse Ox 99% on R/A; Pain 0/10; em 11:00 BP 133 / 74; Pulse 66; Resp 16; Pulse Ox 100% on R/A; em 12:19 BP 136 / 64; Pulse 78; Resp 16; Pulse Ox 99% on R/A; em 13:16 BP 139 / 66; Pulse 71; Resp 18; Pulse Ox 100% on R/A; Pain 0/10; em ED Course: 09:45 Patient arrived in ED. em 09:47 Syed Steele MD is Attending Physician. rn 09:47 Triage completed. em 09:49 Arm band placed on. em 09:50 Patient has correct armband on for positive identification. Placed in gown. Bed in low em position. Call light in reach. Side rails up X2. Adult w/ patient. logistics planning engineer on. Pulse ox on. NIBP on. 09:51 EKG done, by technical training coordinator. reviewed by Syed Steele MD. at1 09:52 Chadd Pathak, RN is Primary Nurse. em 10:19 CT Head Brain wo Cont In Process Unspecified. EDMS 10:30 Initial lab(s) drawn, by me, sent to lab. Inserted saline lock: 22 gauge in right hand, em using aseptic technique. Blood collected. 11:23 Hany Conrad DO is Hospitalizing Provider. rn 13:16 No provider procedures requiring assistance completed. Patient admitted, IV remains in em place. Administered Medications: 10:35 Drug: NS 0.9% 1000 ml Route: IV; Rate: 1000 ml; Site: right hand; em 12:00 Follow up: IV Status: Completed infusion; IV Intake: 1000ml em Intake: 12:00 IV: 1000ml; Total: 1000ml. em Outcome: 11:25 Decision to Hospitalize by Provider. rn 13:27 Admitted to Med/surg accompanied by tech, via stretcher, room 213, Report called to rin Baker RN 13:27 Condition: good 13:27 Instructed on the need for admit, Demonstrated understanding of instructions. 14:12 Patient left the ED. em Signatures: Dispatcher [employer] Chadd Rolle, RN RN em Syed Steele MD MD rn Gonzales, Amanda, lining stuffer EKG Tat1
--- NOTE | 2019-10-28 11:26 | EDPHYS ---
Physician Documentation [facility] Name: Janusz Morris Jr Age: 54 yrs Sex: Male : 1965 Arrival Date: 10/28/2019 Time: 09:45 Bed 6 Private MD: ED Physician Syed Steele HPI: 10/28 10:03 This 54 yrs old Male presents to ER via EMS with complaints of confusion, rn weakness, falls. 10:03 The patient presents with confusion, decreased responsiveness. Onset: The rn symptoms/episode began/occurred at an unknown time. Associated signs and symptoms: The patient has no apparent associated signs or symptoms, Pertinent negatives: abdominal pain, headache, seizure, shortness of breath, vomiting. The patient has experienced similar episodes in the past. Sent by PCP for confusion and generalized weakness, seen last week, sent home, family states doing ok until this morning, no fever/trauma, has been stumbling and confused, blood sugar still running around 300 or higher, went to PCP to discuss diabetes management and sent here.. Historical: - Allergies: 09:49 No Known Allergies; em - Home Meds: 09:49 atorvastatin 40 mg Oral tab 1 tab once daily [Active]; carvedilol 6.25 mg Oral tab 2 em times per day [Active]; lisinopril 5 mg Oral tab 1 tab once daily [Active]; spironolactone 50 mg Oral tab 1 tab once daily [Active]; lactulose 10 gram/15 mL Oral soln 60 mL 3 times per day [Active]; furosemide 20 mg Oral tab 1 tab once daily [Active]; pantoprazole 40 mg Oral TbEC 1 tab 2 times per day [Active]; - PMHx: 09:49 Alcoholism; Cirrhosis; esophageal varices; Diabetes - NIDDM; GI Bleed; Hypertension; em - Immunization history:: Adult Immunizations up to date. - Coronavirus screen:: The patient has NOT traveled to [place], [place], or [place] in the past 14 days. The patient has NOT had contact with known/suspected case of Coronavirus?. - Social history:: Smoking status: Patient denies any tobacco usage or history of. - Family history:: not pertinent. - Ebola Screening: : Patient negative for fever greater than or equal to 101.5 degrees Fahrenheit, and additional compatible Ebola Virus Disease symptoms Patient denies exposure to infectious person Patient denies travel to an Ebola-affected area in the 21 days before illness onset No symptoms or risks identified at this time. - Hospitalizations: : No recent hospitalization is reported. ROS: 10:03 Constitutional: Negative for fever, chills, and weight loss, Eyes: Negative for injury, rn pain, redness, and discharge, Neck: Negative for injury, pain, and swelling, Cardiovascular: Negative for chest pain, palpitations, and edema, Respiratory: Negative for shortness of breath, cough, wheezing, and pleuritic chest pain, Abdomen/GI: Negative for abdominal pain, nausea, vomiting, diarrhea, and constipation, MS/Extremity: Negative for injury and deformity, Skin: Negative for injury, rash, and discoloration, Neuro: Negative for headache, numbness, tingling, and seizure. Exam: 10:03 Constitutional: This is a well developed, well nourished patient who is awake, rn somnolent, awakens easily to voice. Head/Face: Normocephalic, atraumatic. ENT: dry MM Neck: Trachea midline, no thyromegaly or masses palpated, and no cervical lymphadenopathy. Supple, full range of motion without nuchal rigidity, or vertebral point tenderness. No Meningismus. Cardiovascular: Regular rate and rhythm. No pulse deficits. Respiratory: No increased work of breathing, no retractions or nasal flaring. Abdomen/GI: soft, non-tender MS/ Extremity: Pulses equal, no cyanosis. Neurovascular intact. Full, normal range of motion. Equal circumference. Neuro: Awake, somnolent, slow to respond, Motor strength 4/5 in all extremities. Sensory grossly intact. Vital Signs: 09:49 BP 161 / 73; Pulse 76; Resp 19; Temp 98.3; Pulse Ox 99% on R/A; Pain 0/10; em 11:00 BP 133 / 74; Pulse 66; Resp 16; Pulse Ox 100% on R/A; em 12:19 BP 136 / 64; Pulse 78; Resp 16; Pulse Ox 99% on R/A; em 13:16 BP 139 / 66; Pulse 71; Resp 18; Pulse Ox 100% on R/A; Pain 0/10; em MDM: 09:47 Patient medically screened. rn 11:23 Differential Diagnosis: CVA, sepsis, TIA, volume depletion, hepatic encephalopathy. rn Data reviewed: vital signs, nurses notes, lab test result(s), radiologic studies, CT scan, and as a result, I will admit patient. Counseling: I had a detailed discussion with the patient and/or guardian regarding: the historical points, exam findings, and any diagnostic results supporting the discharge/admit diagnosis, lab results, radiology results, the need for further work-up and treatment in the hospital. Response to treatment: the patient's symptoms have mildly improved after treatment, and as a result, I will admit patient. Admission orders: after a detailed discussion of the patient's condition and case, the admit orders are written by me. 10/28 09:57 Order name: CBC with Diff rn 10/28 09:57 Order name: Basic Metabolic Panel rn 10/28 09:57 Order name: LFT's; Complete Time: 11:26 rn 10/28 09:57 Order name: AMMONIA; Complete Time: 11:26 rn 10/28 09:57 Order name: Ketone, Serum; Complete Time: 11:26 rn 10/28 10:06 Order name: Glucose, Ancillary Testing; Complete Time: 10:34 EDMS 10/28 09:57 Order name: IV Start; Complete Time: 10:35 rn 10/28 09:57 Order name: CT Head Brain wo Cont; Complete Time: 10:45 rn 10/28 09:57 Order name: EKG; Complete Time: 09:58 rn 10/28 09:57 Order name: EKG - Nurse/Tech; Complete Time: 10:01 rn 10/28 09:57 Order name: Glucose Level; Complete Time: 10:01 rn 10/28 11:29 Order name: ETOH Level bd 10/28 12:23 Order name: CBC Smear Scan EDMS Administered Medications: 10:35 Drug: NS 0.9% 1000 ml Route: IV; Rate: 1000 ml; Site: right hand; em 12:00 Follow up: IV Status: Completed infusion; IV Intake: 1000ml em Disposition: 10/28/19 11:25 Hospitalization ordered by Hany Conrad for Inpatient Admission. Preliminary diagnosis are Dehydration, Hepatic Encephalopathy, Hyperglycemia, unspecified. - Bed requested for Telemetry/MedSurg (Inpatient). - Status is Inpatient Admission. em - Condition is Stable. - Problem is an ongoing problem. - Symptoms have improved. Signatures: Dispatcher [employer] Dotty Ledbetter RN RN dw Chadd Pathak, JADA ELIAS em Syed Steele MD MD critical care rn: (The following items were deleted from the chart) 12:49 11:25 Hospitalization Ordered by Hany Conrad DO for Inpatient Admission. Preliminary dw diagnosis is Dehydration; Hepatic Encephalopathy; Hyperglycemia, unspecified. Bed requested for Telemetry/MedSurg (Inpatient). Status is Inpatient Admission. Condition is Stable. Problem is an ongoing problem. Symptoms have improved. rn 14:12 12:49 10/28/2019 11:25 Hospitalization Ordered by Hany Conrad DO for Inpatient em Admission. Preliminary diagnosis is Dehydration; Hepatic Encephalopathy; Hyperglycemia, unspecified. Bed requested for Telemetry/MedSurg (Inpatient). Status is Inpatient Admission. Condition is Stable. Problem is an ongoing problem. Symptoms have improved. dw
[2019-10-28 12:22] LABS: Anisocytosis 2+; Blood Morphology Comment NOTED (NOT SEEN); Hypochromasia 2+; Platelet Estimate ADEQ; Urine White Blood Cell Casts OK
--- NOTE | 2019-10-28 12:26 | EKG ---
Test Date: 2019-10-28 Test Time: 09:42:13 [place] Technician: MEGHAN MEASUREMENT RESULTS: Intervals: Rate: 68 HI: 144 QRSD: 74 QT: 386 QTc: 410 Avant: P: 25 HI: 144 QRS: -2 T: 52 INTERPRETIVE STATEMENTS: Normal sinus rhythm Normal ECG Compared to ECG 10/19/2019 18:44:01 Sinus bradycardia no longer present Electronically Signed On 10-28-19 12:26:10 MEDICAL BILLING ASSISTANT by Yon Gallo
--- NOTE | 2019-10-28 13:47 | P.HP ---
Certification for Inpatient Patient admitted to: Observation With expected LOS: <2 Midnights Patient will require the following post-hospital care: None Practitioner: I am a practitioner with admitting privileges, knowledge of patient current condition, hospital course, and medical plan of care. Services: Services provided to patient in accordance with Admission requirements found in Title 42 Section 412.3 of the Code of Federal Regulations Patient History Date of Service: 10/28/19 Primary Care Provider: Dr. Tima Estrada Reason for admission: Altered mental status History of Present Illness: 54-year-old male with history of alcoholic cirrhosis, diabetes and hypertension. Patient presented to the emergency room with altered mental status. Patient was actually seen at his doctor's office. He was found to have elevated blood sugar. There was some concern of hepatic encephalopathy as the patient has a history of admissions for this. The patient was sent over for further evaluation. In the ER patient evaluated. Patient was confused but arousable. CT head unremarkable. White count 7.6, hemoglobin 11, platelet count 117. Potassium 5.7 , creatinine 1.34 with a GFR 55. Glucose above 300. He had negative ketones. Ammonia level elevated at 110. Alcohol level normal. AST 77, ALT 81. Patient was admitted for further evaluation and treatment. When I saw the patient ER, patient was confused but arousable. Family at bedside. Family reports that he has been taking his lactulose. Blood sugars are uncontrolled. Poor intake noted. No fever, chills, cough or congestion. Allergies No Known Allergies Allergy (Verified 07/28/19 21:59) Home medications list reviewed: Yes Home Medications: Furosemide [Lasix] 20 mg PO DAILY 08/10/18 Pantoprazole [Protonix Tab*] 40 mg PO DAILY 08/10/18 Spironolactone [Aldactone*] 50 mg PO DAILY 08/10/18 Atorvastatin Calcium [Lipitor] 40 mg PO BEDTIME 05/23/19 Insulin Degludec [Tresiba Flextouch U-200] 44 units SQ BEDTIME 06/13/19 carvediloL [Carvedilol] 6.25 mg PO BID 07/18/19 Insulin -Regular Human [Novolin -R*] See Protocol SQ ACHS 10/19/19 Lisinopril [Zestril] 5 mg PO DAILY 10/19/19 Ferrous Sulfate [Iron] 325 mg PO DAILY #90 tablet 10/20/19 Lactulose [Cephulac*] 30 ml PO TID #1 bottle 10/20/19 Thiamine HCl 100 mg PO DAILY #90 tablet 10/20/19 - Past Medical/Surgical History Diabetic: Yes -: Alcoholic liver cirrhosis -: History of Esophageal varices -: History of GI bleed -: Diabetes mellitus type 2 insulin dependent -: Hypertension -: Liver Cancer -: History of alcohol abuse -: Anemia of chronic disease -: Chronic renal disease stage III -: Banding ligation -: Heart cath no stent Psychosocial/ Personal History: Patient lives at home. - Family History Father -: Heart disease, Lung disease, Diabetes Mother -: Heart disease, Diabetes Sister -: Diabetes - Social History Smoking Status: Unknown if ever smoked Alcohol use: Yes CD- Drugs: No Caffeine use: Yes Place of Residence: Home Review of Systems is unable to be obtained Physical Examination - Physical Exam General: Confused (But arousable) HEENT: Atraumatic Neck: Supple Respiratory: Clear to auscultation bilaterally, Normal air movement Cardiovascular: Normal pulses, Regular rate/rhythm Gastrointestinal: Normal bowel sounds, Soft and benign, Non-distended, No tenderness, No masses, No rebound, No guarding Musculoskeletal: No erythema, No tenderness, No warmth Integumentary: No erythema, No warmth, No cyanosis Neurological: Other (Patient confused but arousable) - Studies Laboratory Data (last 24 hrs) 10/28/19 10:30: Sodium 139, Potassium 5.7 H*, BUN 23 H, Creatinine 1.34 H, Glucose 293 H, Total Bilirubin 0.8, AST 77 H, ALT 81 H, Alkaline Phosphatase 235 H 10/28/19 10:30: WBC 7.6, Hgb 11.1 L, Hct 35.5 L, Plt Count 117 L Assessment and Plan - Plan Impression: Hepatic encephalopathy with history of alcoholic liver cirrhosis Diabetes mellitus type 2 insulin-dependent with hyperglycemia Acute on chronic renal disease stage III with mild dehydration Hypertension History of alcohol abuse Hyperlipidemia Hyperkalemia Anemia of chronic disease GERD Plan: Hepatic encephalopathy with history of alcoholic liver cirrhosis: Patient be admitted for further evaluation and treatment. Will continue with lactulose 4 times a day to maintain 4-6 bowel movements. Compliance has been addressed in the past. Family reports patient is compliant. Will hydrate patient slightly. Hold after 1 L given. Will monitor liver function and ammonia level. Anticipate improvement over the next 24 hr. I turn the service over to the hospitalist team tomorrow. I will go over the plan of care with him. Diabetes mellitus type 2 insulin-dependent with hyperglycemia: Will continue with basal insulin-Lantus 30 units at bedtime. This will need to be adjusted for better control. Previous A1c reviewed. Patient needs better control as an outpatient. Will recommend to increase Tresiba as an outpatient to maintain blood sugars below 200. Patient also may require sliding scale at discharge. Patient may benefit with endocrinology evaluation. Acute on chronic renal disease stage III with mild dehydration: Continue with IV fluids at this time. Hold Lasix and Aldactone. Hypertension: Continue with carvedilol. History of alcohol abuse: Alcohol level negative. Hyperlipidemia: Will hold off on Lipitor at this time. Due to elevated liver function Hyperkalemia: Hold off on Lasix/Aldactone at this time. Anemia of chronic disease: Will monitor closely. GERD: Continue with Protonix. Discharge Plan: Home Plan to discharge in: 24 Hours - Advance Directives Does patient have a Living Will: No Does patient have a Durable POA for Healthcare: No - Code Status/Comfort Care Code Status Assessed: Yes (Patient is full code) Time Spent Managing Pts Care (In Minutes): 55
[2019-10-28] MEDS ORDERED: ONDANSETRON 4 MG/2 ML VIAL IV PRN (13:57)
[2019-10-28] MEDS ORDERED: D50W 25 GM/50 ML SYRINGE/VIAL IV PRN (13:57)
[2019-10-28] MEDS ORDERED: ACETAMINOPHEN 500 MG TAB PO PRN (13:57)
[2019-10-28] MEDS ORDERED: GLUCAGON 1 MG/VIAL IM PRN (13:57)
[2019-10-28] MEDS ORDERED: NA CHLORIDE 0.9% 1,000 ML IV SCH (13:57)
[2019-10-28] MEDS: LACTULOSE 20 GM/30 ML UCUP PO SCH ×3 (14:41→20:20)
[2019-10-28 15:10] VITALS: BMI 31.5
[2019-10-28] MEDS: INSULIN -REGULAR HUMAN 50 UNIT/0.5 ML ML SQ SCH ×2 (16:25→20:30)
[2019-10-28 17:10] LABS: Urine Appearance CLEAR; Urine Bilirubin NEGATIVE (NEG); Urine Blood NEGATIVE (NEG); Urine Color YELLOW; Urine Glucose 3+ (NEG); Urine Protein 1+ (NEG); Urine Urobilinogen 0.2 mg/dL (0.2-1.0)
[2019-10-28 17:27] LABS: Urine Microscopic Reflex ORDER UMIC
[2019-10-28 17:30] LABS: Urine Bacteria <20 /HPF (NONE SEEN); Urine RBC <5 /HPF (NONE SEEN)
[2019-10-28 17:31] LABS: Urine Culture Reflex Order NOT NEEDED
[2019-10-28] MEDS: carvediloL 6.25 MG TAB PO SCH (20:34)
[2019-10-28] MEDS ORDERED: INSULIN GLARGINE 100 UNITS/ML SQ SCH (21:00)
[2019-10-29] MEDS: PANTOPRAZOLE 40MG TABLET PO SCH (05:30)
[2019-10-29 05:39] LABS: Absolute Lymphocytes (CBC) 1.5 K/uL (0.7-4.9); Basophils % 0.9 % (0-1.3); Hematocrit 30.8 % (39.6-49.0); Lymphocytes % 25.5 % (15.3-44.8); MPV 9.4 fL (7.6-11.3); RBC Red Blood Cell Count 4.52 M/uL (4.33-5.43)
[2019-10-29 05:58] LABS: Albumin 2.9 g/dL (3.4-5.0); Bilirubin Total 0.8 mg/dL (0.2-1.0); Potassium 4.4 mmol/L (3.5-5.1); Protein, Total 7.1 g/dL (6.4-8.2)
[2019-10-29] MEDS: INSULIN -REGULAR HUMAN 50 UNIT/0.5 ML ML SQ SCH ×4 (08:05→21:04)
[2019-10-29] MEDS: LACTULOSE 20 GM/30 ML UCUP PO SCH ×4 (08:06→21:04)
[2019-10-29] MEDS: FOLIC ACID 1 MG TABLET PO SCH (08:06)
[2019-10-29] MEDS: THIAMINE HCL 100 MG TABLET PO SCH (08:06)
[2019-10-29] MEDS: carvediloL 6.25 MG TAB PO SCH ×2 (08:07→21:03)
[2019-10-29 09:35] VITALS: O2SAT 99
--- NOTE | 2019-10-29 13:45 | P.PN ---
Subjective Date of Service: 10/29/19 Primary Care Provider: Dr. Tima Estrada Chief Complaint: Altered mental status Subjective: No new changes, No C/O voiced (anxious to go home today -awake and conversant) Review of Systems 10-point ROS is otherwise unremarkable Physical Examination - Vital Signs Temperature: 97.4 F Blood Pressure: 118/60 Pulse: 71 Respirations: 16 Pulse Ox (%): 98 - Physical Exam General: Alert, In no apparent distress, Oriented x3 HEENT: Atraumatic, Normocephalic, Mucous membr. moist/pink Respiratory: Clear to auscultation bilaterally, Normal air movement Cardiovascular: Normal pulses, Regular rate/rhythm, Normal S1 S2 Gastrointestinal: Normal bowel sounds, Soft and benign, Non-distended, No tenderness Musculoskeletal: No clubbing, No swelling Neurological: Normal speech, Normal strength at 5/5 x4 extr, Normal tone - Studies Laboratory Last Values WBC 5.8 K/uL (4.3-10.9) D 10/29/19 05:09 RBC 4.52 M/uL (4.33-5.43) 10/29/19 05:09 Hgb 9.7 g/dL (13.6-17.9) L 10/29/19 05:09 Hct 30.8 % (39.6-49.0) L 10/29/19 05:09 MCV 68.0 fL (80-100) L 10/29/19 05:09 MCH 21.5 pg (27.0-35.0) L 10/29/19 05:09 MCHC 31.6 g/dL (32.0-36.0) L 10/29/19 05:09 RDW 20.4 % (12.1-15.2) H 10/29/19 05:09 Plt Count 101 K/uL (152-406) L 10/29/19 05:09 MPV 9.4 fL (7.6-11.3) 10/29/19 05:09 Neutrophils % 63.1 % (41.7-73.7) 10/29/19 05:09 Lymphocytes % 25.5 % (15.3-44.8) 10/29/19 05:09 Monocytes % 6.7 % (3.3-12.3) 10/29/19 05:09 Eosinophils % 3.8 % (0-4.4) 10/29/19 05:09 Basophils % 0.9 % (0-1.3) 10/29/19 05:09 Absolute Neutrophils 3.7 K/uL (1.8-8.0) 10/29/19 05:09 Absolute Lymphocytes 1.5 K/uL (0.7-4.9) 10/29/19 05:09 Absolute Monocytes 0.4 K/uL (0.1-1.3) 10/29/19 05:09 Absolute Eosinophils 0.2 K/uL (0-0.5) 10/29/19 05:09 Absolute Basophils 0.1 K/uL (0-0.5) 10/29/19 05:09 Hypochromasia 2+ 10/28/19 10:30 Anisocytosis 2+ 10/28/19 10:30 Microcytosis 2+ 10/28/19 10:30 Morphology Comment Noted (NOT SEEN) 10/28/19 10:30 Sodium 136 mmol/L (136-145) 10/29/19 05:09 Potassium 4.4 mmol/L (3.5-5.1) 10/29/19 05:09 Chloride 107 mmol/L (98-107) 10/29/19 05:09 Carbon Dioxide 22 mmol/L (21-32) 10/29/19 05:09 BUN 16 mg/dL (7-18) 10/29/19 05:09 Creatinine 1.30 mg/dL (0.55-1.3) 10/29/19 05:09 Estimated GFR 57 mL/min (=/>90) L 10/29/19 05:09 Glucose 300 mg/dL (74-106) H 10/29/19 05:09 POC Glucose 435 mg/dl (65-120) H* 10/29/19 11:10 Calcium 8.3 mg/dL (8.5-10.1) L 10/29/19 05:09 Magnesium 2.0 mg/dL (1.8-2.4) 10/29/19 05:09 Total Bilirubin 0.8 mg/dL (0.2-1.0) 10/29/19 05:09 Direct Bilirubin 0.3 mg/dL (0-0.2) H 10/28/19 10:30 AST 66 U/L (15-37) H 10/29/19 05:09 ALT 69 U/L (12-78) 10/29/19 05:09 Alkaline Phosphatase 181 U/L (45-117) H 10/29/19 05:09 Ammonia 143 umol/L (19-54) H D 10/29/19 05:09 Serum Total Protein 7.1 g/dL (6.4-8.2) 10/29/19 05:09 Albumin 2.9 g/dL (3.4-5.0) L 10/29/19 05:09 Globulin 4.2 g/dL (2.3-3.5) H D 10/29/19 05:09 Albumin/Globulin Ratio 0.7 (1.1-1.8) L 10/29/19 05:09 Urine Color Yellow 10/28/19 16:24 Urine Appearance Clear 10/28/19 16:24 Urine pH 6.0 (5.0-7.0) 10/28/19 16:24 Ur Specific Baxter 1.020 (1.005-1.030) 10/28/19 16:24 Glucose (UA)(Auto) 3+ (NEG) H 10/28/19 16:24 Urine Ketones Negative (NEG) 10/28/19 16:24 Urine Blood Negative (NEG) 10/28/19 16:24 Urine Nitrite Negative (NEG) 10/28/19 16:24 Urine Bilirubin Negative (NEG) 10/28/19 16:24 Urine Urobilinogen 0.2 mg/dL (0.2-1.0) 10/28/19 16:24 Ur Leukocyte Esterase Negative (NEG) 10/28/19 16:24 Urine RBC <5 /HPF (NONE SEEN) 10/28/19 16:24 Urine WBC <5 /HPF (<5) 10/28/19 16:24 Ur Squamous Epith Cells <5 /HPF (NONE SEEN) 10/28/19 16:24 Urine Bacteria <20 /HPF (NONE SEEN) 10/28/19 16:24 Urine Culture Reflexed Not needed 10/28/19 16:24 Urine Total Protein 1+ (NEG) H 10/28/19 16:24 Plasma/Serum Alcohol < 10 mg/dL (<10) 10/28/19 12:05 Acetone Level Neg (NEG) 10/28/19 10:30 Assessment & Plan Physician Review: Patient Assessed, Agree with Above Assessment and Plan Physician Review Additional Text: Hepatic encephlopathy -persistent , will increase lactulose to 60g qid -follow repeat ammonia in am -however more awake and oriented now and requesting discharge -Need for improved ammonia to , 90 prior to discharge explained HTN-controlled DM -elevated glucose , increase levemir to 25 unit bid -patient unable to tell me dose of Tresiba ta home , state his family give him the meds -will continue to monitor glucose and d/w with family when they come Anemia- trending down to 9.7 , may be due to IVF use -follow trend -obtain iron , vit b12 and folic acid level Elevated LFTs- trending down Dispo -possible home in am if ammonia level trending down DVT pro- scd
[2019-10-29] MEDS: INSULIN GLARGINE 100 UNITS/ML SQ SCH ×2 (14:27→21:03)
[2019-10-29 14:28] LABS: Ferritin 11.6 ng/mL (26-388)
[2019-10-29 14:51] LABS: Folic Acid, (Folate) > 20.0 ng/mL (3.1-17.5)
[2019-10-30 04:14] VITALS: BP 140/65
[2019-10-30 06:05] LABS: Albumin 3.1 g/dL (3.4-5.0); Bilirubin Total 0.6 mg/dL (0.2-1.0); Potassium 4.5 mmol/L (3.5-5.1); Protein, Total 7.3 g/dL (6.4-8.2)
[2019-10-30] MEDS: PANTOPRAZOLE 40MG TABLET PO SCH (06:20)
[2019-10-30] MEDS: THIAMINE HCL 100 MG TABLET PO SCH (09:00)
[2019-10-30] MEDS: INSULIN -REGULAR HUMAN 50 UNIT/0.5 ML ML SQ SCH (09:12)
[2019-10-30] MEDS: INSULIN GLARGINE 100 UNITS/ML SQ SCH (09:12)
[2019-10-30] MEDS: carvediloL 6.25 MG TAB PO SCH (09:13)
[2019-10-30] MEDS: FOLIC ACID 1 MG TABLET PO SCH (09:13)
[2019-10-30] MEDS: LACTULOSE 20 GM/30 ML UCUP PO SCH (09:13)
--- NOTE | 2019-10-30 10:05 | P.DS ---
Admission Date: 10/28/19 Discharge Date: 10/30/19 Primary Care Provider: Dr. Tima Estrada Disposition: ROUTINE DISCHARGE Discharge Condition: FAIR Reason for Admission: Altered mental status - Problems (1) Hepatic encephalopathy Current Visit: No Status: Acute (2) Diabetes mellitus Onset Date: 08/12/18 Current Visit: No Status: Chronic Qualifiers: Diabetes mellitus type: type 2 Diabetes mellitus half-way insulin use: without half-way use Diabetes mellitus complication status: without complication Qualified Code(s): E11.9 - Type 2 diabetes mellitus without complications (3) Esophageal varices Onset Date: 08/12/18 Current Visit: No Status: Chronic Qualifiers: Esophageal varices type: unspecified type Esophageal varices bleeding: without bleeding Qualified Code(s): I85.00 - Esophageal varices without bleeding (4) HTN (hypertension) Current Visit: No Status: Chronic Qualifiers: Hypertension type: essential hypertension Qualified Code(s): I10 - Essential (primary) hypertension (5) Liver cirrhosis Onset Date: 08/12/18 Current Visit: No Status: Chronic Qualifiers: Hepatic cirrhosis type: alcoholic cirrhosis Ascites presence: without ascites Qualified Code(s): K70.30 - Alcoholic cirrhosis of liver without ascites (6) S/P TIPS (transjugular intrahepatic portosystemic shunt) Current Visit: No Status: Chronic Brief History of Present Illness: History of Present Illness: 54-year-old male with history of alcoholic cirrhosis, diabetes and hypertension. Patient presented to the emergency room with altered mental status. Patient was actually seen at his doctor's office. He was found to have elevated blood sugar. There was some concern of hepatic encephalopathy as the patient has a history of admissions for this. The patient was sent over for further evaluation. In the ER patient evaluated. Patient was confused but arousable. CT head unremarkable. White count 7.6, hemoglobin 11, platelet count 117. Potassium 5.7 , creatinine 1.34 with a GFR 55. Glucose above 300. He had negative ketones. Ammonia level elevated at 110. Alcohol level normal. AST 77, ALT 81. Patient was admitted for further evaluation and treatment. When I saw the patient ER, patient was confused but arousable. Family at bedside. Family reports that he has been taking his lactulose. Blood sugars are uncontrolled. Poor intake noted. No fever, chills, cough or congestion. Allergies No Known Allergies Allergy (Verified 07/28/19 21:59) Hospital Course: Patient with history of liver cirrhosis status post TIPS, recurrent hepatic encephalopathy, diabetes mellitus on insulin with Tresiba; admitted for altered mental status with confusion. On admission he was noted with mild hyperglycemia as well as elevated ammonia of 120 which worsen to 140 even after lactulose restart . He admitted to not taking his lactulose for one day prior to onset of symptoms. Lactulose was increased gradually to 60 g t.i.d. with significant improvement to ammonia of 80 now . His insulin was also increased . Patient's symptoms completely improved. He is ambulating well now and as well as oriented x3. His glucose has also improved. He will be discharged home today with increased dose of Tresiba from 44 units q.h.s. to 30 units b.i.d. for now. His lactulose was also increased to 60 g t.i.d.. Need for continue nonadherence as well as follow-up with his primary in 1 week discussed. He will be discharged home today Vital Signs/Physical Exam: Temp Pulse Resp BP Pulse Ox 98.1 F 68 18 140/65 98 10/30/19 04:00 10/30/19 09:13 10/30/19 04:00 10/30/19 09:13 10/30/19 04:00 General: Alert, In no apparent distress, Oriented x3 HEENT: Atraumatic, Normocephalic, PERRLA Neck: 2+ carotid pulse no bruit, JVD not distended Respiratory: Clear to auscultation bilaterally, Normal air movement Cardiovascular: No edema, Normal pulses, Regular rate/rhythm, Normal S1 S2 Gastrointestinal: Normal bowel sounds, Hypoactive, Soft and benign, Non- distended, No ascites Musculoskeletal: No clubbing, No swelling Integumentary: No rashes Neurological: Normal gait, Normal speech, Normal strength at 5/5 x4 extr, Normal tone Laboratory Data at Discharge: WBC 5.8 K/uL (4.3-10.9) D 10/29/19 05:09 Hgb 9.7 g/dL (13.6-17.9) L 10/29/19 05:09 Hct 30.8 % (39.6-49.0) L 10/29/19 05:09 Plt Count 101 K/uL (152-406) L 10/29/19 05:09 Sodium 138 mmol/L (136-145) 10/30/19 05:18 Potassium 4.5 mmol/L (3.5-5.1) 10/30/19 05:18 BUN 15 mg/dL (7-18) 10/30/19 05:18 Creatinine 1.37 mg/dL (0.55-1.3) H 10/30/19 05:18 Glucose 238 mg/dL (74-106) H 10/30/19 05:18 Magnesium 2.0 mg/dL (1.8-2.4) 10/29/19 05:09 Total Bilirubin 0.6 mg/dL (0.2-1.0) 10/30/19 05:18 AST 98 U/L (15-37) H 10/30/19 05:18 ALT 86 U/L (12-78) H 10/30/19 05:18 Alkaline Phosphatase 211 U/L (45-117) H 10/30/19 05:18 Home Medications: Furosemide 20 mg PO DAILY 10/28/19 Insulin Regular, Human [Novolin R] 12 units SQ DAILY 10/28/19 Spironolactone 50 mg PO DAILY 10/28/19 carvediloL [Carvedilol] 6.25 mg PO BID 10/28/19 Insulin Degludec [Tresiba Flextouch U-200] 30 unit SQ BID #14 insuln.pen Lactulose [Cephulac*] 90 ml PO TID #240 ucup 10/30/19 Pantoprazole [Protonix Tab*] 40 mg PO DAILYAC #30 tab 10/30/19 Thiamine HCl [Vitamin B-1*] 100 mg PO DAILY #30 tablet 10/30/19 carvediloL [Coreg*] 6.25 mg PO BID tab 10/30/19 New Medications: Insulin Degludec [Tresiba Flextouch U-200] 30 unit SQ BID #14 insuln.pen Lactulose [Cephulac*] 90 ml PO TID #240 ucup Pantoprazole [Protonix Tab*] 40 mg PO DAILYAC #30 tab Thiamine HCl [Vitamin B-1*] 100 mg PO DAILY #30 tablet Patient Discharge Instructions: -monitoring home glucose regularly pre meals. - follow with your primary care physician in 1 week. -take lactulose as ordered Diet: ADA Activity: Ad laquita Time spent managing pt's care (in minutes): 38
[2019-10-30 13:01] VITALS: TEMP 96.8
== END 2019-10-30 10:40 | disposition home or self-care (01) ==
LOC: ER 09:40 → ERHOLD 12:21 → 2ND 13:38
PROVIDERS: ADMIT Family Medicine; ATTEND Internal Medicine
DX: K72.90 Hepatic failure, unspecified without coma (principal); E11.65 Type 2 diabetes mellitus with hyperglycemia; E86.0 Dehydration; K70.30 Alcoholic cirrhosis of liver without ascites; N17.9 Acute kidney failure, unspecified; E87.5 Hyperkalemia; E11.22 Type 2 diabetes mellitus with diabetic chronic kidney disease; I12.9 Hypertensive chronic kidney disease with stage 1 through stage 4 chronic kidney disease, or unspecified chronic kidney disease; N18.3 Chronic kidney disease, stage 3 (moderate); D63.8 Anemia in other chronic diseases classified elsewhere; K21.9 Gastro-esophageal reflux disease without esophagitis; Z85.05 Personal history of malignant neoplasm of liver
CPT/HCPCS: 93005; 85025 ×2; 80048; 36415 ×2; 80320; 82140 ×3; 82010; 83735; 82947 ×8; 80076; 82728; 82746; 82607; 83540; 80053 ×2; 84466; 70450; 96360; 99285; J1815 ×4; J7030 ×2; J2405; G0378 ×4; 81003; 81015

== ENCOUNTER 2019-12-03 19:20 | Inpatient (IN) | payer MEDICAID ==
--- OUTSIDE RECORDS SUMMARY | 2019-12-03 19:26 | XMS REPORT ---
[...] Problem Coronary artery disease involving I25.10 Active [place] coronary artery of [place] heart, angina presence unspecified Problem Alcohol abuse [...] End Status Dosage System Date Date Carvedilol [facility] 89723570796 6.25 MG Orally Active 1 tablet Twice a day Lactulose [facility] 80991577532 10 GM/15ML Active TAKE 30ML BY MOUTH TWICE DAILY. Lasix [facility] 83184220767 20 MG Orally Active 1 tablet Once a day Rifaximin [facility] [address]-46 550 MG Orally December Active 1 tablet Twice a day 2019 Lisinopril [facility] 36442218428 5 MG Orally Once Active 1 tablet a day Tresiba [facility] 05591413542 200 UNIT/ML Active inject 44 FlexTouch Subcutaneous units Once a day Propranolol HCl [facility] 69645853370 20 MG Orally Inactive 1 tablet Once a day on an empty stomach Spironolactone [facility] 00888396634 50 MG Orally December Active 1 tablet Once a day 07, with food 2019 Pantoprazole ND 99448131286 40 MG Orally Active 1 tablet Sodium Once a day Lactulose ND 72656130137 20 GM/30ML December Active 15 ml Orally BID 2019 BD Ultra-Fine ND 76220068087 4mm x 32Gm Jun 30, Active 1 needle [place] subcutaneously 2018 with once a day Tresiba pen Atorvastatin ND 77866799894 40 MG Orally Active 1 tablet Calcium Once a day Aspir-81 [facility] 17609361812 81 MG Orally Active 1 tablet Once a day Results No Known Results Summary Purpose eClinicalWorks Submission
--- OUTSIDE RECORDS SUMMARY | 2019-12-03 19:26 | XMS REPORT ---
:1965 [facility] [address] [place] [address] Care Team Providers Name Role Phone BRAVO ONEAL Unavailable Unavailable JANNET KASPER Unavailable Unavailable Problems This patient has no known problems. Allergies, Adverse Reactions, Alerts This patient has no known allergies or adverse reactions. Medications This patient has no known medications. Results Test Description Test Time Test Comments Text Results Atomic Results Result Comments MR, ABDOMEN, WITH 2019-10-06 15:38:00 FINAL REPORT INDICATION:54-year-old [...] Verified Date/Time: 10/06/2019 15:38:31 Reading Location: [address] O490C -CREATININE 2019-10-03 11:35:00 Test Item Value Reference Range Comments POC-CREATININE (BEAKER) (test 1.3 mg/dL 0.6-1.[address] [facility]- 2457 kjfe=1054) [facility] [address] POC-EGFR (BEAKER) (test 57 mL/min/1.73M2 jgch=2915) ANG, EMBOLIZATION, EXTENSIVE - [id number] 16:43:00Reason for Exam:-> liver cancerFINAL REPORT Mesenteric [...] loss: &lt ; 5 cc. Specimen: None. autoclave operator: Samantha. Maintenance Mechanic Supervisor: Gaudencio. Fluoroscopy Time: 14.5 min. Dose (Ka,r): [...] and a 0.035 inch J-wire. A 5 Frisian sheath was placed. Diagnostic mesenteric angiogram was performed to access vessel patency and exclude arterio- portal shunting. A 5 Frisian Ramírez catheter which was used to select the SMA and celiac trunkfor DSA runs. A 3 Frisian microcatheter was advanced coaxially through the Ramírez [...] Successful hemostasis using closure device. Signed: [facility] Verified Date/Time: 06/18/2019 16:43:18 Reading Location: [place] [address] Angio Body Reading Room COMPREHENSIVE METABOLIC [id number] 10:36:00 Test Item Value Reference Range Comments TOTAL PROTEIN (BEAKER) 6.5 gm/dL 6.0-8.3 (test ftsr=475) ALBUMIN (BEAKER) (test 3.0 g/dL 3.5-5.0 hagm=0950) ALKALINE PHOSPHATASE 203 U/L 40-150 (BEAKER) (test mfze=720) BILIRUBIN TOTAL (BEAKER) 0.8 mg/dL 0.2-1.2 (test bisr=249) SODIUM (BEAKER) (test 135 meq/L 136-145 bppt=264) POTASSIUM (BEAKER) (test 4.1 meq/L 3.5-5.1 twuj=946) CHLORIDE (BEAKER) (test 106 meq/L 98-107 hnxk=772) CO2 (BEAKER) (test 24 meq/L 22-29 huas=181) BLOOD UREA NITROGEN 15 mg/dL 7-21 (BEAKER) (test kwdq=718) CREATININE (BEAKER) (test 1.17 mg/dL 0.57-1.25 jvsj=227) GLUCOSE RANDOM (BEAKER) 221 mg/dL 70-105 (test gixh=676) CALCIUM (BEAKER) (test 9.2 mg/dL 8.4-10.2 qsgg=844) AST (SGOT) (BEAKER) (test 78 U/L 5-34 pidy=040) ALT (SGPT) (BEAKER) (test 50 U/L 6-55 efht=409) EGFR (BEAKER) (test 64 mL/min/1.73 sq m ESTIMATED GFR IS NOT jqlr=0412) ACCURATE CREATININE CLEARANCE IN PREDICTING GLOMERULAR FILTRATION RATE. ESTIMATED GFR IS NOT APPLICABLE FOR DIALYSIS PATIENTS. PROTHROMBIN TIME/[id number] 10:19:00 Test Item Value Reference Range Comments PROTIME (BEAKER) (test wxbi=043) 14.7 seconds 11.9-14.2 INR (BEAKER) (test ksbx=224) 1.2 <=5.9 Effective 02/19/2019: PT Reference Range ChangeNew: 11.9-14.2 Previous: 11.7- 14.7RECOMMENDED COUMADIN/WARFARIN INR THERAPY RANGESSTANDARD DOSE: 2.0-3.0 Includes: PROPHYLAXIS for venous thrombosis, systemic embolization; TREATMENT for venous thrombosis and/or pulmonary embolus.HIGH RISK: Target INR is2.5-3.5 for patients wiht mechanical heart valves.[id number] 10:19:00 Test Item Value Reference Range Comments PARTIAL THROMBOPLASTIN TIME (BEAKER) (test 35.6 seconds 22.5-36.0 cnpy=779) CBC W/PLT COUNT & AUTO [id number] 10:16:00 Test Item Value Reference Range Comments WHITE BLOOD CELL COUNT (BEAKER) (test ffid=642) 6.4 K/ L 3.5-10.5 RED BLOOD CELL COUNT (BEAKER) (test csng=278) 3.84 M/ L 4.63-6.08 HEMOGLOBIN (BEAKER) (test ucla=690) 8.1 GM/DL 13.7-17.5 HEMATOCRIT (BEAKER) (test sdbs=160) 27.4 % 40.1-51.0 MEAN CORPUSCULAR VOLUME (BEAKER) (test djat=343) 71.4 fL 79.0-92.2 MEAN CORPUSCULAR HEMOGLOBIN (BEAKER) (test 21.1 pg 25.7-32.2 twhj=203) MEAN CORPUSCULAR HEMOGLOBIN CONC (BEAKER) (test 29.6 GM/DL 32.3-36.5 bfuf=540) RED CELL DISTRIBUTION WIDTH (BEAKER) (test 16.7 % 11.6-14.4 wctw=402) PLATELET COUNT (BEAKER) (test omlg=435) 130 K/CU MM 150-450 MEAN PLATELET VOLUME (BEAKER) (test dslt=983) 9.6 fL 9.4-12.4 NUCLEATED RED BLOOD CELLS (BEAKER) (test 0 /100 WBC 0-0 zgzw=247) NEUTROPHILS RELATIVE PERCENT (BEAKER) (test 62 % vlbh=726) LYMPHOCYTES RELATIVE PERCENT (BEAKER) (test 20 % dwio=168) MONOCYTES RELATIVE PERCENT (BEAKER) (test 9 % baow=479) EOSINOPHILS RELATIVE PERCENT (BEAKER) (test 8 % glte=010) BASOPHILS RELATIVE PERCENT (BEAKER) (test 1 % pdlx=670) NEUTROPHILS ABSOLUTE COUNT (BEAKER) (test 3.97 K/ L 1.78-5.38 wsle=715) LYMPHOCYTES ABSOLUTE COUNT (BEAKER) (test 1.27 K/ L 1.32-3.57 sphh=601) MONOCYTES ABSOLUTE COUNT (BEAKER) (test 0.54 K/ L 0.30-0.82 mmec=689) EOSINOPHILS ABSOLUTE COUNT (BEAKER) (test 0.52 K/ L 0.04-0.54 lejy=987) BASOPHILS ABSOLUTE COUNT (BEAKER) (test 0.08 K/ L 0.01-0.08 vxgd=738) IMMATURE GRANULOCYTES-RELATIVE PERCENT (BEAKER) 0 % 0-1 (test ewtl=3143) MR, ABDOMEN, [id number] 17:19:00Include Abdominal VesselsFINAL REPORT MR of the [...] suspicious for hepatocellular carcinoma. Signed: Terese Jordan Verified Date/Time: 04/09/2019 17:19:22 Reading Location: [address] Radiology Reading Room Electronically signed by: TERESE JORDAN M.D. on04/09/2019 05:19 PMALPHA FETOPROTEIN (AFP), TUMOR [id number] 14: 34:00 Test Item Value Reference Range Comments ALPHA-FETOPROTEIN (BEAKER) (test guxc=4444) 32.9 ng/mL <10.0 COMPREHENSIVE METABOLIC [id number] 14:18:00 Test Item Value Reference Range Comments TOTAL PROTEIN (BEAKER) 8.2 gm/dL 6.0-8.3 (test uaxj=418) ALBUMIN (BEAKER) (test 3.5 g/dL 3.5-5.0 qrqr=7881) ALKALINE PHOSPHATASE 216 U/L 40-150 (BEAKER) (test kifo=790) BILIRUBIN TOTAL (BEAKER) 1.4 mg/dL 0.2-1.2 (test azot=420) SODIUM (BEAKER) (test 132 meq/L 136-145 nfex=486) POTASSIUM (BEAKER) (test 4.5 meq/L 3.5-5.1 kpjw=411) CHLORIDE (BEAKER) (test 102 meq/L 98-107 sgla=980) CO2 (BEAKER) (test 24 meq/L 22-29 egow=604) BLOOD UREA NITROGEN 12 mg/dL 7-21 (BEAKER) (test ojld=877) CREATININE (BEAKER) (test 1.16 mg/dL 0.57-1.25 wbmd=156) GLUCOSE RANDOM (BEAKER) 249 mg/dL 70-105 (test qrxd=522) CALCIUM (BEAKER) (test 9.3 mg/dL 8.4-10.2 syad=700) AST (SGOT) (BEAKER) (test 81 U/L 5-34 xfyr=055) ALT (SGPT) (BEAKER) (test 40 U/L 6-55 kpqr=343) EGFR (BEAKER) (test 65 mL/min/1.73 sq m ESTIMATED GFR IS NOT yxqn=4181) ACCURATE CREATININE CLEARANCE IN PREDICTING GLOMERULAR FILTRATION RATE. ESTIMATED GFR IS NOT APPLICABLE FOR DIALYSIS PATIENTS. BILIRUBIN, [id number] 14:18:00 Test Item Value Reference Range Comments BILIRUBIN DIRECT (BEAKER) (test iumf=440) 0.8 mg/dL 0.1-0.5 PROTHROMBIN [id number] 14:05:00 Test Item Value Reference Range Comments PROTIME (BEAKER) (test sfkp=165) 14.9 seconds 11.9-14.2 INR (BEAKER) (test isyw=233) 1.2 <=5.9 Effective 02/19/2019: PT Reference Range ChangeNew: 11.9-14.2 Previous: 11.7- 14.7RECOMMENDED COUMADIN/WARFARIN INR THERAPY RANGESSTANDARD DOSE: 2.0-3.0 Includes: PROPHYLAXIS for venous thrombosis, systemic embolization; TREATMENT for venous thrombosis and/or pulmonary embolus.HIGH RISK: Target INR is2.5-3.5 for patients wiht mechanical heart valves.[id number] 13:58:00 Test Item Value Reference Range Comments POC-CREATININE (BEAKER) 0.9 mg/dL 0.6-1.[address] [facility] [address] [facility] (test pkle=2915) [place] [address] POC-EGFR (BEAKER) (test 88 mL/min/1.73M2 cppn=5428) CBC W/PLT COUNT & AUTO [id number] 13:56:00 Test Item Value Reference Range Comments WHITE BLOOD CELL COUNT (BEAKER) (test qrhw=932) 5.9 K/ L 3.5-10.5 RED BLOOD CELL COUNT (BEAKER) (test xxyr=582) 4.75 M/ L 4.63-6.08 HEMOGLOBIN (BEAKER) (test wtlg=847) 10.7 GM/DL 13.7-17.5 HEMATOCRIT (BEAKER) (test mkse=615) 35.5 % 40.1-51.0 MEAN CORPUSCULAR VOLUME (BEAKER) (test iquj=743) 74.7 fL 79.0-92.2 MEAN CORPUSCULAR HEMOGLOBIN (BEAKER) (test 22.5 pg 25.7-32.2 xlix=071) MEAN CORPUSCULAR HEMOGLOBIN CONC (BEAKER) (test 30.1 GM/DL 32.3-36.5 oyvr=362) RED CELL DISTRIBUTION WIDTH (BEAKER) (test 18.6 % 11.6-14.4 kalc=868) PLATELET COUNT (BEAKER) (test ltkp=559) 157 K/CU MM 150-450 MEAN PLATELET VOLUME (BEAKER) (test whdx=344) 9.4 fL 9.4-12.4 NUCLEATED RED BLOOD CELLS (BEAKER) (test 0 /100 WBC 0-0 peoh=172) NEUTROPHILS RELATIVE PERCENT (BEAKER) (test 68 % isco=399) LYMPHOCYTES RELATIVE PERCENT (BEAKER) (test 19 % ysua=480) MONOCYTES RELATIVE PERCENT (BEAKER) (test 9 % llph=116) EOSINOPHILS RELATIVE PERCENT (BEAKER) (test 3 % relh=320) BASOPHILS RELATIVE PERCENT (BEAKER) (test 1 % nkeo=625) NEUTROPHILS ABSOLUTE COUNT (BEAKER) (test 4.03 K/ L 1.78-5.38 zfhz=621) LYMPHOCYTES ABSOLUTE COUNT (BEAKER) (test 1.13 K/ L 1.32-3.57 leix=738) MONOCYTES ABSOLUTE COUNT (BEAKER) (test 0.52 K/ L 0.30-0.82 jfyv=434) EOSINOPHILS ABSOLUTE COUNT (BEAKER) (test 0.20 K/ L 0.04-0.54 kdod=223) BASOPHILS ABSOLUTE COUNT (BEAKER) (test 0.05 K/ L 0.01-0.08 nqdh=672) IMMATURE GRANULOCYTES-RELATIVE PERCENT (BEAKER) 0 % 0-1 (test qffd=6104) HOPE [id number] 08:05:00Reason for exam:->recurrent variceal bleedAddendum BeginsREPORT STATUS:A Addendum: Ultrasound was used to examine the veins the right neck. A patent internal jugular vein was identified and images the patent vein were saved on PACS. Real-time ultrasound guidance was then utilized for access of the internal jugular vein.Signed: Sola Camarillo MDReport Verified Date/Time: 01/20/2019 08:05:45 Reading Location: [address] Radiology Reading RoomAddendum EndsFINAL REPORT Procedure: [...] MDReport Verified Date/Time: 01/01/2019 17:21:51 Reading Location: [place] [id number] Angio Body Reading Room POCT-GLUCOSE [id number] 08:02:00 Test Item Value Reference Range Comments POC-GLUCOSE METER (BEAKER) 187 mg/dL 70-[address] [facility] [address] [facility] (test zpeg=0906) [facility] [address] [id number] 04:17:00 Test Item Value Reference Range Comments PHOSPHORUS (BEAKER) (test gkyk=248) 2.9 mg/dL 2.3-4.7 [id number] 04:17:00 Test Item Value Reference Range Comments MAGNESIUM (BEAKER) (test wshr=737) 1.9 mg/dL 1.6-2.6 COMPREHENSIVE METABOLIC [id number] 04:17:00 Test Item Value Reference Range Comments TOTAL PROTEIN (BEAKER) 7.6 gm/dL 6.0-8.3 (test sejk=417) ALBUMIN (BEAKER) (test 3.3 g/dL 3.5-5.0 lxgc=6523) ALKALINE PHOSPHATASE 138 U/L 40-150 (BEAKER) (test othg=532) BILIRUBIN TOTAL (BEAKER) 1.0 mg/dL 0.2-1.2 (test fhov=387) SODIUM (BEAKER) (test 136 meq/L 136-145 hfjt=939) POTASSIUM (BEAKER) (test 4.0 meq/L 3.5-5.1 ohmw=070) CHLORIDE (BEAKER) (test 105 meq/L 98-107 ngsh=136) CO2 (BEAKER) (test 22 meq/L 22-29 gpxj=259) BLOOD UREA NITROGEN 14 mg/dL 7-21 (BEAKER) (test shrt=435) CREATININE (BEAKER) (test 1.11 mg/dL 0.57-1.25 makp=942) GLUCOSE RANDOM (BEAKER) 173 mg/dL 70-105 (test gybl=674) CALCIUM (BEAKER) (test 9.1 mg/dL 8.4-10.2 ejnt=020) AST (SGOT) (BEAKER) (test 89 U/L 5-34 fnth=921) ALT (SGPT) (BEAKER) (test 41 U/L 6-55 tvat=139) EGFR (BEAKER) (test 69 mL/min/1.73 sq m ESTIMATED GFR IS NOT cywp=3947) ACCURATE CREATININE CLEARANCE IN PREDICTING GLOMERULAR FILTRATION RATE. ESTIMATED GFR IS NOT APPLICABLE FOR DIALYSIS PATIENTS. CBC W/PLT COUNT & AUTO [id number] 03:43:00 Test Item Value Reference Range Comments WHITE BLOOD CELL COUNT (BEAKER) (test pbxd=314) 9.1 K/ L 3.5-10.5 RED BLOOD CELL COUNT (BEAKER) (test vyjy=952) 4.66 M/ L 4.63-6.08 HEMOGLOBIN (BEAKER) (test vexm=873) 9.1 GM/DL 13.7-17.5 HEMATOCRIT (BEAKER) (test wgje=199) 31.7 % 40.1-51.0 MEAN CORPUSCULAR VOLUME (BEAKER) (test bikn=133) 68.0 fL 79.0-92.2 MEAN CORPUSCULAR HEMOGLOBIN (BEAKER) (test 19.5 pg 25.7-32.2 mxfv=892) MEAN CORPUSCULAR HEMOGLOBIN CONC (BEAKER) (test 28.7 GM/DL 32.3-36.5 bqcy=219) RED CELL DISTRIBUTION WIDTH (BEAKER) (test 20.4 % 11.6-14.4 kkrn=628) PLATELET COUNT (BEAKER) (test ucft=811) 174 K/CU MM 150-450 MEAN PLATELET VOLUME (BEAKER) (test lael=535) 10.6 fL 9.4-12.4 NUCLEATED RED BLOOD CELLS (BEAKER) (test 0 /100 WBC 0-0 vcoc=311) NEUTROPHILS RELATIVE PERCENT (BEAKER) (test 74 % mhhq=441) LYMPHOCYTES RELATIVE PERCENT (BEAKER) (test 16 % dvbm=599) MONOCYTES RELATIVE PERCENT (BEAKER) (test 7 % iask=566) EOSINOPHILS RELATIVE PERCENT (BEAKER) (test 2 % rvgm=222) BASOPHILS RELATIVE PERCENT (BEAKER) (test 1 % vnyz=502) NEUTROPHILS ABSOLUTE COUNT (BEAKER) (test 6.70 K/ L 1.78-5.38 zoxo=095) LYMPHOCYTES ABSOLUTE COUNT (BEAKER) (test 1.42 K/ L 1.32-3.57 xmtb=454) MONOCYTES ABSOLUTE COUNT (BEAKER) (test 0.61 K/ L 0.30-0.82 qtrl=298) EOSINOPHILS ABSOLUTE COUNT (BEAKER) (test 0.20 K/ L 0.04-0.54 nbbc=606) BASOPHILS ABSOLUTE COUNT (BEAKER) (test 0.10 K/ L 0.01-0.08 olhf=803) IMMATURE GRANULOCYTES-RELATIVE PERCENT (BEAKER) 0 % 0-1 (test aywu=4759) POCT-GLUCOSE [id number] 23:33:00 Test Item Value Reference Range Comments POC-GLUCOSE METER (BEAKER) 230 mg/dL 70-110 TESTED AT [address] (test wmow=9566) [place] [address] POCT-GLUCOSE [id number] 16:25:00 Test Item Value Reference Range Comments POC-GLUCOSE METER (BEAKER) 182 mg/dL 70-110 TESTED AT [address] (test asay=2175) [place] [address] POCT-GLUCOSE [id number] 14:02:00 Test Item Value Reference Range Comments POC-GLUCOSE METER (BEAKER) 146 mg/dL 70-110 TESTED AT [address] (test hkma=5844) [place] [address] POCT-GLUCOSE [id number] 07:49:00 Test Item Value Reference Range Comments POC-GLUCOSE METER (BEAKER) 143 mg/dL 70-110 TESTED AT [address] (test dggw=5533) [place] [address] CALCIUM, [id number] 06:48:00 Test Item Value Reference Range Comments CALCIUM IONIZED (BEAKER) (test sjby=503) 0.81 mmol/L 1.12-1.27 PH, BLOOD (BEAKER) (test evqu=1337) 7.50 CBC W/PLT COUNT & AUTO [id number] 06:41:00 Test Item Value Reference Range Comments WHITE BLOOD CELL COUNT 4.0 K/ L 3.5-10.5 (BEAKER) (test drwm=586) RED BLOOD CELL COUNT (BEAKER) 4.14 M/ L 4.63-6.08 (test ygtp=491) HEMOGLOBIN (BEAKER) (test 8.2 GM/DL 13.7-17.5 narg=948) HEMATOCRIT (BEAKER) (test 27.7 % 40.1-51.0 mayg=764) MEAN CORPUSCULAR VOLUME 66.9 fL 79.0-92.2 (BEAKER) (test ezmx=686) MEAN CORPUSCULAR HEMOGLOBIN 19.8 pg 25.7-32.2 (BEAKER) (test bfot=148) MEAN CORPUSCULAR HEMOGLOBIN 29.6 GM/DL 32.3-36.5 CONC (BEAKER) (test lgei=992) RED CELL DISTRIBUTION WIDTH 20.3 % 11.6-14.4 (BEAKER) (test nith=525) PLATELET COUNT (BEAKER) (test 120 K/CU MM 150-450 pqrz=019) MEAN PLATELET VOLUME (BEAKER) fL 9.4-12.4 Unable to report due to (test udww=967) abnormal Platelet population distribution. NUCLEATED RED BLOOD CELLS 0 /100 WBC 0-0 (BEAKER) (test waee=223) NEUTROPHILS RELATIVE PERCENT 58 % (BEAKER) (test nrum=839) LYMPHOCYTES RELATIVE PERCENT 25 % (BEAKER) (test wusb=166) MONOCYTES RELATIVE PERCENT 8 % (BEAKER) (test xidq=414) EOSINOPHILS RELATIVE PERCENT 7 % (BEAKER) (test ytst=830) BASOPHILS RELATIVE PERCENT 1 % (BEAKER) (test fgdn=915) NEUTROPHILS ABSOLUTE COUNT 2.36 K/ L 1.78-5.38 (BEAKER) (test edgh=495) LYMPHOCYTES ABSOLUTE COUNT 1.01 K/ L 1.32-3.57 (BEAKER) (test pfwk=794) MONOCYTES ABSOLUTE COUNT 0.33 K/ L 0.30-0.82 (BEAKER) (test ckdk=191) EOSINOPHILS ABSOLUTE COUNT 0.29 K/ L 0.04-0.54 (BEAKER) (test zeai=609) BASOPHILS ABSOLUTE COUNT 0.04 K/ L 0.01-0.08 (BEAKER) (test rdrs=218) IMMATURE GRANULOCYTES-RELATIVE 0 % 0-1 PERCENT (BEAKER) (test pqbu=7833) [id number] 06:02:00 Test Item Value Reference Range Comments PHOSPHORUS (BEAKER) (test ieur=026) 3.6 mg/dL 2.3-4.7 [id number] 06:02:00 Test Item Value Reference Range Comments MAGNESIUM (BEAKER) (test muej=281) 1.7 mg/dL 1.6-2.6 COMPREHENSIVE METABOLIC [id number] 06:02:00 Test Item Value Reference Range Comments TOTAL PROTEIN (BEAKER) 7.2 gm/dL 6.0-8.3 (test edhk=934) ALBUMIN (BEAKER) (test 3.2 g/dL 3.5-5.0 zqwo=8560) ALKALINE PHOSPHATASE 157 U/L 40-150 (BEAKER) (test moyx=483) BILIRUBIN TOTAL (BEAKER) 0.9 mg/dL 0.2-1.2 (test jvoj=432) SODIUM (BEAKER) (test 137 meq/L 136-145 mhgi=064) POTASSIUM (BEAKER) (test 3.5 meq/L 3.5-5.1 uemm=833) CHLORIDE (BEAKER) (test 102 meq/L 98-107 hyac=895) CO2 (BEAKER) (test 30 meq/L 22-29 welq=841) BLOOD UREA NITROGEN 18 mg/dL 7-21 (BEAKER) (test ohdg=883) CREATININE (BEAKER) (test 1.14 mg/dL 0.57-1.25 gyct=117) GLUCOSE RANDOM (BEAKER) 130 mg/dL 70-105 (test pmrc=128) CALCIUM (BEAKER) (test 8.6 mg/dL 8.4-10.2 lrdn=861) AST (SGOT) (BEAKER) (test 53 U/L 5-34 bmvs=747) ALT (SGPT) (BEAKER) (test 25 U/L 6-55 pusi=323) EGFR (BEAKER) (test 67 mL/min/1.73 sq m ESTIMATED GFR IS NOT zobr=1966) ACCURATE CREATININE CLEARANCE IN PREDICTING GLOMERULAR FILTRATION RATE. ESTIMATED GFR IS NOT APPLICABLE FOR DIALYSIS PATIENTS. POCT-GLUCOSE [id number] 23:13:00 Test Item Value Reference Range Comments POC-GLUCOSE METER (BEAKER) 332 mg/dL 70-110 Notified JADA NIX/TESTED AT [facility] (test qcng=2429) [address] [place] [address] POCT-GLUCOSE [id number] 15:30:00 Test Item Value Reference Range Comments POC-GLUCOSE METER (BEAKER) 191 mg/dL 70-[address] [facility] [address] (test dgco=2763) [facility] [address] CALCIUM, [id number] 06:07:00 Test Item Value Reference Range Comments CALCIUM IONIZED (BEAKER) (test sqvy=931) 0.93 mmol/L 1.12-1.27 PH, BLOOD (BEAKER) (test dkuo=7729) 7.53 [id number] 06:06:00 Test Item Value Reference Range Comments PHOSPHORUS (BEAKER) (test lhwc=195) 3.1 mg/dL 2.3-4.7 [id number] 06:06:00 Test Item Value Reference Range Comments MAGNESIUM (BEAKER) (test kcgz=135) 1.8 mg/dL 1.6-2.6 BASIC METABOLIC [id number] 06:06:00 Test Item Value Reference Range Comments SODIUM (BEAKER) (test 138 meq/L 136-145 flrm=240) POTASSIUM (BEAKER) (test 3.8 meq/L 3.5-5.1 vglj=185) CHLORIDE (BEAKER) (test 104 meq/L 98-107 yddg=925) CO2 (BEAKER) (test 27 meq/L 22-29 jszb=645) BLOOD UREA NITROGEN 19 mg/dL 7-21 (BEAKER) (test vihq=571) CREATININE (BEAKER) (test 1.26 mg/dL 0.57-1.25 eptw=143) GLUCOSE RANDOM (BEAKER) 191 mg/dL 70-105 (test snrn=246) CALCIUM (BEAKER) (test 8.9 mg/dL 8.4-10.2 eish=369) EGFR (BEAKER) (test 59 mL/min/1.73 sq m ESTIMATED GFR IS NOT unxq=1467) ACCURATE CREATININE CLEARANCE IN PREDICTING GLOMERULAR FILTRATION RATE. ESTIMATED GFR IS NOT APPLICABLE FOR DIALYSIS PATIENTS. B-TYPE NATRIURETIC FACTOR (BNP)2018-12-31 05:58:00 Test Item Value Reference Range Comments B-TYPE NATRIURETIC PEPTIDE (BEAKER) (test kgek=960) 99 pg/mL 0-100 CBC W/PLT COUNT & AUTO [id number] 05:35:00 Test Item Value Reference Range Comments WHITE BLOOD CELL COUNT 5.2 K/ L 3.5-10.5 (BEAKER) (test eman=259) RED BLOOD CELL COUNT (BEAKER) 4.00 M/ L 4.63-6.08 (test elmw=271) HEMOGLOBIN (BEAKER) (test 7.7 GM/DL 13.7-17.5 qajt=456) HEMATOCRIT (BEAKER) (test 27.2 % 40.1-51.0 cjgn=993) MEAN CORPUSCULAR VOLUME 68.0 fL 79.0-92.2 (BEAKER) (test lwjb=710) MEAN CORPUSCULAR HEMOGLOBIN 19.3 pg 25.7-32.2 (BEAKER) (test uztu=183) MEAN CORPUSCULAR HEMOGLOBIN 28.3 GM/DL 32.3-36.5 CONC (BEAKER) (test nkjd=301) RED CELL DISTRIBUTION WIDTH 20.3 % 11.6-14.4 (BEAKER) (test qaxf=998) PLATELET COUNT (BEAKER) (test 107 K/CU MM 150-450 bpmd=134) MEAN PLATELET VOLUME (BEAKER) fL 9.4-12.4 Unable to report due to (test mubi=501) abnormal Platelet population distribution. NUCLEATED RED BLOOD CELLS 0 /100 WBC 0-0 (BEAKER) (test urfr=482) NEUTROPHILS RELATIVE PERCENT 67 % (BEAKER) (test dhou=942) LYMPHOCYTES RELATIVE PERCENT 19 % (BEAKER) (test lymb=313) MONOCYTES RELATIVE PERCENT 8 % (BEAKER) (test jezv=290) EOSINOPHILS RELATIVE PERCENT 5 % (BEAKER) (test iulp=793) BASOPHILS RELATIVE PERCENT 1 % (BEAKER) (test tvbm=987) NEUTROPHILS ABSOLUTE COUNT 3.47 K/ L 1.78-5.38 (BEAKER) (test hmjx=837) LYMPHOCYTES ABSOLUTE COUNT 0.99 K/ L 1.32-3.57 (BEAKER) (test gvlp=409) MONOCYTES ABSOLUTE COUNT 0.40 K/ L 0.30-0.82 (BEAKER) (test mjvu=319) EOSINOPHILS ABSOLUTE COUNT 0.24 K/ L 0.04-0.54 (BEAKER) (test emrz=738) BASOPHILS ABSOLUTE COUNT 0.06 K/ L 0.01-0.08 (BEAKER) (test argr=617) IMMATURE GRANULOCYTES-RELATIVE 0 % 0-1 PERCENT (BEAKER) (test rcfs=9096) POCT-GLUCOSE [id number] 21:49:00 Test Item Value Reference Range Comments POC-GLUCOSE METER (BEAKER) 291 mg/dL 70-110 TESTED AT [address] (test xppw=2484) [place] [address] POCT-GLUCOSE [id number] 17:31:00 Test Item Value Reference Range Comments POC-GLUCOSE METER (BEAKER) 247 mg/dL 70-110 TESTED AT [address] (test cdyv=0813) [place] [address] BONE AND/OR JOINT IMAGING, WHOLE [id number] 16:47:00FINAL REPORT PROCEDURE: BONE SCAN, WHOLE BODY CPT CODE: [id number] INDICATION: Hepatocellular carcinoma, preoperative evaluation for liver [...] Verified Date/ Time: 12/30/2018 16:47:37 Reading Location: [address], CHEST, WITHOUT [id number] 12:26:00FINAL REPORT CT Chest without contrast History: [...] disease in the chest. Signed: Elmer Perry Verified Date/Time: 12/30/2018 12:26:39 Reading Location: [facility] Diagnostic Imaging Reading Room - [place] [address] POCT-GLUCOSE [id number] 11:39:00 Test Item Value Reference Range Comments POC-GLUCOSE METER (BEAKER) 250 mg/dL 70-110 TESTED AT [address] (test cbuh=5494) [facility] [address] POCT-GLUCOSE [id number] 07:43:00 Test Item Value Reference Range Comments POC-GLUCOSE METER (BEAKER) 228 mg/dL 70-110 TESTED AT [address] (test klnv=6907) [facility] [address] CALCIUM, [id number] 07:32:00 Test Item Value Reference Range Comments CALCIUM IONIZED (BEAKER) (test ckxv=001) 0.97 mmol/L 1.12-1.27 PH, BLOOD (BEAKER) (test yghc=7909) 7.46 [id number] 06:46:00 Test Item Value Reference Range Comments PHOSPHORUS (BEAKER) (test gxxu=723) 3.5 mg/dL 2.3-4.7 [id number] 06:46:00 Test Item Value Reference Range Comments MAGNESIUM (BEAKER) (test scht=065) 1.8 mg/dL 1.6-2.6 COMPREHENSIVE METABOLIC [id number] 06:46:00 Test Item Value Reference Range Comments TOTAL PROTEIN (BEAKER) 7.2 gm/dL 6.0-8.3 (test gphl=841) ALBUMIN (BEAKER) (test 3.3 g/dL 3.5-5.0 ehph=4195) ALKALINE PHOSPHATASE 137 U/L 40-150 (BEAKER) (test wrmz=791) BILIRUBIN TOTAL (BEAKER) 0.8 mg/dL 0.2-1.2 (test cvph=366) SODIUM (BEAKER) (test 136 meq/L 136-145 hrmn=278) POTASSIUM (BEAKER) (test 3.7 meq/L 3.5-5.1 umhp=885) CHLORIDE (BEAKER) (test 102 meq/L 98-107 mynt=442) CO2 (BEAKER) (test 25 meq/L 22-29 gshi=006) BLOOD UREA NITROGEN 14 mg/dL 7-21 (BEAKER) (test zmav=213) CREATININE (BEAKER) (test 1.06 mg/dL 0.57-1.25 wvif=872) GLUCOSE RANDOM (BEAKER) 154 mg/dL 70-105 (test obok=238) CALCIUM (BEAKER) (test 8.8 mg/dL 8.4-10.2 aofw=580) AST (SGOT) (BEAKER) (test 55 U/L 5-34 dvra=157) ALT (SGPT) (BEAKER) (test 24 U/L 6-55 hmru=270) EGFR (BEAKER) (test 73 mL/min/1.73 sq m ESTIMATED GFR IS NOT ccio=7387) ACCURATE CREATININE CLEARANCE IN PREDICTING GLOMERULAR FILTRATION RATE. ESTIMATED GFR IS NOT APPLICABLE FOR DIALYSIS PATIENTS. CBC W/PLT COUNT & AUTO [id number] 06:20:00 Test Item Value Reference Range Comments WHITE BLOOD CELL COUNT 5.1 K/ L 3.5-10.5 (BEAKER) (test riws=521) RED BLOOD CELL COUNT (BEAKER) 4.24 M/ L 4.63-6.08 (test yqup=566) HEMOGLOBIN (BEAKER) (test 8.4 GM/DL 13.7-17.5 jkbm=726) HEMATOCRIT (BEAKER) (test 28.7 % 40.1-51.0 wftw=589) MEAN CORPUSCULAR VOLUME 67.7 fL 79.0-92.2 (BEAKER) (test kgua=739) MEAN CORPUSCULAR HEMOGLOBIN 19.8 pg 25.7-32.2 (BEAKER) (test dhlh=744) MEAN CORPUSCULAR HEMOGLOBIN 29.3 GM/DL 32.3-36.5 CONC (BEAKER) (test jmnw=279) RED CELL DISTRIBUTION WIDTH 20.7 % 11.6-14.4 (BEAKER) (test anyb=101) PLATELET COUNT (BEAKER) (test 121 K/CU MM 150-450 ghee=681) MEAN PLATELET VOLUME (BEAKER) fL 9.4-12.4 Unable to report due to (test pkyy=168) abnormal Platelet population distribution. NUCLEATED RED BLOOD CELLS 0 /100 WBC 0-0 (BEAKER) (test qhzw=227) NEUTROPHILS RELATIVE PERCENT 65 % (BEAKER) (test efdb=696) LYMPHOCYTES RELATIVE PERCENT 20 % (BEAKER) (test xqpl=737) MONOCYTES RELATIVE PERCENT 8 % (BEAKER) (test qukk=579) EOSINOPHILS RELATIVE PERCENT 5 % (BEAKER) (test zhvc=949) BASOPHILS RELATIVE PERCENT 1 % (BEAKER) (test ells=878) NEUTROPHILS ABSOLUTE COUNT 3.36 K/ L 1.78-5.38 (BEAKER) (test glvn=185) LYMPHOCYTES ABSOLUTE COUNT 1.02 K/ L 1.32-3.57 (BEAKER) (test krrj=258) MONOCYTES ABSOLUTE COUNT 0.42 K/ L 0.30-0.82 (BEAKER) (test jcaj=139) EOSINOPHILS ABSOLUTE COUNT 0.28 K/ L 0.04-0.54 (BEAKER) (test lnrw=367) BASOPHILS ABSOLUTE COUNT 0.05 K/ L 0.01-0.08 (BEAKER) (test cezp=836) IMMATURE GRANULOCYTES-RELATIVE 0 % 0-1 PERCENT (BEAKER) (test yiew=5182) POCT-GLUCOSE [id number] 21:51:00 Test Item Value Reference Range Comments POC-GLUCOSE METER (BEAKER) 279 mg/dL 70-110 TESTED AT [address] (test qsnz=8541) [place] [id number] POCT-GLUCOSE [id number] 17:37:00 Test Item Value Reference Range Comments POC-GLUCOSE METER (BEAKER) 151 mg/dL 70-110 TESTED AT [address] (test cuwv=2108) [facility] [address] BASIC METABOLIC [id number] 16:15:00 Test Item Value Reference Range Comments SODIUM (BEAKER) (test 138 meq/L 136-145 mrly=937) POTASSIUM (BEAKER) (test 3.7 meq/L 3.5-5.1 awgq=682) CHLORIDE (BEAKER) (test 102 meq/L 98-107 lisw=090) CO2 (BEAKER) (test 27 meq/L 22-29 cccb=936) BLOOD UREA NITROGEN 14 mg/dL 7-21 (BEAKER) (test nmro=797) CREATININE (BEAKER) (test 1.25 mg/dL 0.57-1.25 tywo=031) GLUCOSE RANDOM (BEAKER) 129 mg/dL 70-105 (test uhsv=706) CALCIUM (BEAKER) (test 9.4 mg/dL 8.4-10.2 lsuv=098) EGFR (BEAKER) (test 60 mL/min/1.73 sq m ESTIMATED GFR IS NOT czlu=7869) ACCURATE CREATININE CLEARANCE IN PREDICTING GLOMERULAR FILTRATION RATE. ESTIMATED GFR IS NOT APPLICABLE FOR DIALYSIS PATIENTS. Call [id number] 12:24:00 Test Item Value Reference Range Comments POC-GLUCOSE METER (BEAKER) 358 mg/dL 70-110 TESTED AT [address] (test ikgh=7321) [facility] [address] POCT-GLUCOSE [id number] 07:53:00 Test Item Value Reference Range Comments POC-GLUCOSE METER (BEAKER) 173 mg/dL 70-110 TESTED AT [address] (test adhq=5780) [place] [id number] POCT-GLUCOSE [id number] 22:33:00 Test Item Value Reference Range Comments POC-GLUCOSE METER (BEAKER) 228 mg/dL 70-110 TESTED AT [address] (test cqgu=3219) [place] [address] [id number] 09:58:00 Test Item Value Reference Range Comments PHOSPHORUS (BEAKER) (test cuvk=556) 3.5 mg/dL 2.3-4.7 [id number] 09:58:00 Test Item Value Reference Range Comments MAGNESIUM (BEAKER) (test tkmr=867) 1.9 mg/dL 1.6-2.6 COMPREHENSIVE METABOLIC [id number] 09:58:00 Test Item Value Reference Range Comments TOTAL PROTEIN (BEAKER) 7.5 gm/dL 6.0-8.3 (test vunx=072) ALBUMIN (BEAKER) (test 3.5 g/dL 3.5-5.0 mttj=7672) ALKALINE PHOSPHATASE 129 U/L 40-150 (BEAKER) (test acop=449) BILIRUBIN TOTAL (BEAKER) 0.9 mg/dL 0.2-1.2 (test vswf=700) SODIUM (BEAKER) (test 136 meq/L 136-145 eetg=033) POTASSIUM (BEAKER) (test 3.6 meq/L 3.5-5.1 piip=292) CHLORIDE (BEAKER) (test 103 meq/L 98-107 clcd=789) CO2 (BEAKER) (test 24 meq/L 22-29 inny=716) BLOOD UREA NITROGEN 14 mg/dL 7-21 (BEAKER) (test bhdq=841) CREATININE (BEAKER) (test 1.17 mg/dL 0.57-1.25 cmzv=455) GLUCOSE RANDOM (BEAKER) 224 mg/dL 70-105 (test fomh=987) CALCIUM (BEAKER) (test 9.0 mg/dL 8.4-10.2 jgwb=063) AST (SGOT) (BEAKER) (test 57 U/L 5-34 zrnr=660) ALT (SGPT) (BEAKER) (test 25 U/L 6-55 ufmm=866) EGFR (BEAKER) (test 65 mL/min/1.73 sq m ESTIMATED GFR IS NOT hqyf=5078) ACCURATE CREATININE CLEARANCE IN PREDICTING GLOMERULAR FILTRATION RATE. ESTIMATED GFR IS NOT APPLICABLE FOR DIALYSIS PATIENTS. POCT-GLUCOSE [id number] 08:36:00 Test Item Value Reference Range Comments POC-GLUCOSE METER (BEAKER) 220 mg/dL 70-[address] [facility] [address] [facility] (test gwkm=8872) [facility] [address] CBC W/PLT COUNT & AUTO [id number] 07:42:00 Test Item Value Reference Range Comments WHITE BLOOD CELL COUNT 5.4 K/ L 3.5-10.5 (BEAKER) (test nzhu=813) RED BLOOD CELL COUNT (BEAKER) 4.30 M/ L 4.63-6.08 (test vhpl=542) HEMOGLOBIN (BEAKER) (test 8.6 GM/DL 13.7-17.5 uotj=687) HEMATOCRIT (BEAKER) (test 29.3 % 40.1-51.0 ffhg=047) MEAN CORPUSCULAR VOLUME 68.1 fL 79.0-92.2 (BEAKER) (test soew=118) MEAN CORPUSCULAR HEMOGLOBIN 20.0 pg 25.7-32.2 (BEAKER) (test dogy=750) MEAN CORPUSCULAR HEMOGLOBIN 29.4 GM/DL 32.3-36.5 CONC (BEAKER) (test vyim=174) RED CELL DISTRIBUTION WIDTH 20.7 % 11.6-14.4 (BEAKER) (test lobp=087) PLATELET COUNT (BEAKER) (test 112 K/CU MM 150-450 xhqg=303) MEAN PLATELET VOLUME (BEAKER) fL 9.4-12.4 Unable to report due to (test zbpp=512) abnormal Platelet population distribution. NUCLEATED RED BLOOD CELLS 0 /100 WBC 0-0 (BEAKER) (test ncqi=592) NEUTROPHILS RELATIVE PERCENT 71 % (BEAKER) (test uulh=938) LYMPHOCYTES RELATIVE PERCENT 15 % (BEAKER) (test tywm=013) MONOCYTES RELATIVE PERCENT 9 % (BEAKER) (test akoj=611) EOSINOPHILS RELATIVE PERCENT 5 % (BEAKER) (test tofk=355) BASOPHILS RELATIVE PERCENT 1 % (BEAKER) (test laww=360) NEUTROPHILS ABSOLUTE COUNT 3.79 K/ L 1.78-5.38 (BEAKER) (test spku=366) LYMPHOCYTES ABSOLUTE COUNT 0.79 K/ L 1.32-3.57 (BEAKER) (test zdfi=681) MONOCYTES ABSOLUTE COUNT 0.48 K/ L 0.30-0.82 (BEAKER) (test ixsa=428) EOSINOPHILS ABSOLUTE COUNT 0.28 K/ L 0.04-0.54 (BEAKER) (test kong=346) BASOPHILS ABSOLUTE COUNT 0.04 K/ L 0.01-0.08 (BEAKER) (test zxxe=364) IMMATURE GRANULOCYTES-RELATIVE 0 % 0-1 PERCENT (BEAKER) (test atxa=9140) CALCIUM, [id number] 06:42:00 Test Item Value Reference Range Comments CALCIUM IONIZED (BEAKER) (test kqxm=112) 1.07 mmol/L 1.12-1.27 PH, BLOOD (BEAKER) (test ttsc=0052) 7.42 POCT-GLUCOSE [id number] 22:30:00 Test Item Value Reference Range Comments POC-GLUCOSE METER (BEAKER) 183 mg/dL 70-110 TESTED AT [address] (test bauo=9406) [facility] [address] POCT-GLUCOSE [id number] 18:41:00 Test Item Value Reference Range Comments POC-GLUCOSE METER (BEAKER) 278 mg/dL 70-110 TESTED AT [address] (test jyrp=8530) [place] [id number] POCT-GLUCOSE [id number] 11:50:00 Test Item Value Reference Range Comments POC-GLUCOSE METER (BEAKER) 142 mg/dL 70-110 TESTED AT [address] (test qbjt=8410) [facility] [address] POCT-GLUCOSE [id number] 10:36:00 Test Item Value Reference Range Comments POC-GLUCOSE METER (BEAKER) 130 mg/dL 70-110 TESTED AT [address] (test vayw=6311) [facility] [address] POCT-GLUCOSE [id number] 07:40:00 Test Item Value Reference Range Comments POC-GLUCOSE METER (BEAKER) 145 mg/dL 70-110 TESTED AT [address] (test wuwq=4892) [facility] [address] CBC W/PLT COUNT & AUTO [id number] 06:58:00 Test Item Value Reference Range Comments WHITE BLOOD CELL COUNT 5.1 K/ L 3.5-10.5 (BEAKER) (test frxs=013) RED BLOOD CELL COUNT (BEAKER) 4.31 M/ L 4.63-6.08 (test bjiz=666) HEMOGLOBIN (BEAKER) (test 8.3 GM/DL 13.7-17.5 ehrw=415) HEMATOCRIT (BEAKER) (test 29.6 % 40.1-51.0 miyv=372) MEAN CORPUSCULAR VOLUME 68.7 fL 79.0-92.2 (BEAKER) (test tnak=102) MEAN CORPUSCULAR HEMOGLOBIN 19.3 pg 25.7-32.2 (BEAKER) (test tygw=516) MEAN CORPUSCULAR HEMOGLOBIN 28.0 GM/DL 32.3-36.5 CONC (BEAKER) (test bmxw=422) RED CELL DISTRIBUTION WIDTH 21.1 % 11.6-14.4 (BEAKER) (test guyc=682) PLATELET COUNT (BEAKER) (test 108 K/CU MM 150-450 bxzk=947) MEAN PLATELET VOLUME (BEAKER) fL 9.4-12.4 Unable to report due to (test ptxs=898) abnormal Platelet population distribution. NUCLEATED RED BLOOD CELLS 0 /100 WBC 0-0 (BEAKER) (test kimq=506) NEUTROPHILS RELATIVE PERCENT 65 % (BEAKER) (test srvp=497) LYMPHOCYTES RELATIVE PERCENT 20 % (BEAKER) (test ifqt=937) MONOCYTES RELATIVE PERCENT 8 % (BEAKER) (test abug=058) EOSINOPHILS RELATIVE PERCENT 7 % (BEAKER) (test azze=480) BASOPHILS RELATIVE PERCENT 1 % (BEAKER) (test djst=208) NEUTROPHILS ABSOLUTE COUNT 3.30 K/ L 1.78-5.38 (BEAKER) (test vtbs=172) LYMPHOCYTES ABSOLUTE COUNT 1.00 K/ L 1.32-3.57 (BEAKER) (test rlox=029) MONOCYTES ABSOLUTE COUNT 0.40 K/ L 0.30-0.82 (BEAKER) (test mzmb=673) EOSINOPHILS ABSOLUTE COUNT 0.33 K/ L 0.04-0.54 (BEAKER) (test jsjk=452) BASOPHILS ABSOLUTE COUNT 0.05 K/ L 0.01-0.08 (BEAKER) (test ukzn=403) IMMATURE GRANULOCYTES-RELATIVE 0 % 0-1 PERCENT (BEAKER) (test fvqb=6027) [id number] 06:56:00 Test Item Value Reference Range Comments PHOSPHORUS (BEAKER) (test qfqe=039) 3.7 mg/dL 2.3-4.7 [id number] 06:56:00 Test Item Value Reference Range Comments MAGNESIUM (BEAKER) (test wyvp=940) 1.6 mg/dL 1.6-2.6 BASIC METABOLIC [id number] 06:56:00 Test Item Value Reference Range Comments SODIUM (BEAKER) (test 138 meq/L 136-145 pmlk=100) POTASSIUM (BEAKER) (test 3.9 meq/L 3.5-5.1 llhc=866) CHLORIDE (BEAKER) (test 105 meq/L 98-107 cnug=305) CO2 (BEAKER) (test 25 meq/L 22-29 bkyn=838) BLOOD UREA NITROGEN 13 mg/dL 7-21 (BEAKER) (test nxjg=448) CREATININE (BEAKER) (test 1.06 mg/dL 0.57-1.25 ejsv=705) GLUCOSE RANDOM (BEAKER) 115 mg/dL 70-105 (test ofdi=451) CALCIUM (BEAKER) (test 8.8 mg/dL 8.4-10.2 acov=203) EGFR (BEAKER) (test 73 mL/min/1.73 sq m ESTIMATED GFR IS NOT hbax=2151) ACCURATE CREATININE CLEARANCE IN PREDICTING GLOMERULAR FILTRATION RATE. ESTIMATED GFR IS NOT APPLICABLE FOR DIALYSIS PATIENTS. CALCIUM, [id number] 06:46:00 Test Item Value Reference Range Comments CALCIUM IONIZED (BEAKER) (test konx=575) 0.89 mmol/L 1.12-1.27 PH, BLOOD (BEAKER) (test lopd=6559) 7.41 PROTHROMBIN [id number] 06:38:00 Test Item Value Reference Range Comments PROTIME (BEAKER) (test zxxe=181) 15.2 seconds 11.7-14.7 INR (BEAKER) (test ipoz=550) 1.2 <=5.9 RECOMMENDED COUMADIN/WARFARIN INR THERAPY RANGESSTANDARD DOSE: 2.0 - 3.0 Includes: PROPHYLAXIS forvenous thrombosis, systemic embolization; TREATMENT for venous thrombosis and/or pulmonary embolus.HIGH RISK: Target INR is 2.5-3.5 for patients with mechanical heart valves.B-TYPE NATRIURETIC FACTOR (BNP)2018-12 06:35:00 Test Item Value Reference Range Comments B-TYPE NATRIURETIC PEPTIDE (BEAKER) (test 135 pg/mL 0-100 qptt=401) POCT-GLUCOSE [id number] 22:28:00 Test Item Value Reference Range Comments POC-GLUCOSE METER (BEAKER) 109 mg/dL 70-[address] [facility] [address] [facility] (test egdj=1577) [facility] [address] POCT-GLUCOSE [id number] 21:07:00 Test Item Value Reference Range Comments POC-GLUCOSE METER (BEAKER) 91 mg/dL 70-110 TESTED AT [address] (test evwq=8965) [place] [id number] POCT-GLUCOSE [id number] 16:48:00 Test Item Value Reference Range Comments POC-GLUCOSE METER (BEAKER) 487 mg/dL 70-110 TESTED AT [address] (test ytys=3905) [place] [address] LOLA, [id number] 12:58:00Reason for Exam:->recurrent variceal bleeding, portal hypertensionFINAL REPORT History: Portal hypertension, history of variceal bleeding. PROCEDURE: Following informed written consent, general endotracheal anesthesia was administered and the patient's right cervical region was prepped and draped in the usual sterile manner. Access was gained the right internal jugular vein using a micropuncture needle. A 9 Frisian sheath was placed at the access site into the jugular vein. A 5 Frisian multipurpose catheter and wire were used to carefully select the hepatic vein and perform a hepatic venogram. Hepatic venous pressures were then performed as described below. 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 Cano, who also conferred with cardiology, [...] as ( Ka,r): 55 mGy [facility]: [facility] Verified Date/Time: 12/26/2018 12: 58:23 Reading Location: [place] [address] Angio Body Reading Room POCT-GLUCOSE [id number] 12:50:00 Test Item Value Reference Range Comments POC-GLUCOSE METER (BEAKER) 124 mg/dL 70-110 TESTED AT [address] (test ssxc=8169) [place] [address] POCT-GLUCOSE [id number] 10:41:00 Test Item Value Reference Range Comments POC-GLUCOSE METER (BEAKER) 158 mg/dL 70-[address] [facility] [address] [facility] (test uzjp=7645) [facility] [address] COMPREHENSIVE METABOLIC [id number] 07:58:00 Test Item Value Reference Range Comments TOTAL PROTEIN (BEAKER) 7.2 gm/dL 6.0-8.3 (test zibg=953) ALBUMIN (BEAKER) (test 3.0 g/dL 3.5-5.0 zabx=2365) ALKALINE PHOSPHATASE 142 U/L 40-150 (BEAKER) (test glxb=404) BILIRUBIN TOTAL (BEAKER) 0.9 mg/dL 0.2-1.2 (test alqu=228) SODIUM (BEAKER) (test 138 meq/L 136-145 ilup=144) POTASSIUM (BEAKER) (test 4.4 meq/L 3.5-5.1 ksza=060) CHLORIDE (BEAKER) (test 106 meq/L 98-107 tzqt=551) CO2 (BEAKER) (test 26 meq/L 22-29 wqoz=641) BLOOD UREA NITROGEN 10 mg/dL 7-21 (BEAKER) (test uqxu=555) CREATININE (BEAKER) (test 0.91 mg/dL 0.57-1.25 hbhl=239) GLUCOSE RANDOM (BEAKER) 134 mg/dL 70-105 (test pxpt=121) CALCIUM (BEAKER) (test 9.3 mg/dL 8.4-10.2 peti=199) AST (SGOT) (BEAKER) (test 69 U/L 5-34 zmzs=431) ALT (SGPT) (BEAKER) (test 29 U/L 6-55 zkmb=691) EGFR (BEAKER) (test 86 mL/min/1.73 sq m ESTIMATED GFR IS NOT mfnz=4742) ACCURATE CREATININE CLEARANCE IN PREDICTING GLOMERULAR FILTRATION RATE. ESTIMATED GFR IS NOT APPLICABLE FOR DIALYSIS PATIENTS. [id number] 07:58:00 Test Item Value Reference Range Comments PROTIME (BEAKER) (test zcul=795) 15.4 seconds 11.7-14.7 INR (BEAKER) (test bepv=109) 1.2 <=5.9 PARTIAL THROMBOPLASTIN TIME (BEAKER) (test 35.4 seconds 22.5-36.0 vzfk=203) RECOMMENDED COUMADIN/WARFARIN INR THERAPY RANGESSTANDARD DOSE: 2.0 - 3.0 Includes: PROPHYLAXIS forvenous thrombosis, systemic embolization; TREATMENT for venous thrombosis and/or pulmonary embolus.HIGH RISK: Target INR is 2.5-3.5 for patients with mechanical heart valves.CBC W/PLT COUNT & AUTO [id number] 07:52:00 Test Item Value Reference Range Comments WHITE BLOOD CELL COUNT (BEAKER) (test yzbt=455) 4.6 K/ L 3.5-10.5 RED BLOOD CELL COUNT (BEAKER) (test woqx=028) 4.35 M/ L 4.63-6.08 HEMOGLOBIN (BEAKER) (test qzrp=019) 8.6 GM/DL 13.7-17.5 HEMATOCRIT (BEAKER) (test srqz=832) 30.1 % 40.1-51.0 MEAN CORPUSCULAR VOLUME (BEAKER) (test nnon=807) 69.2 fL 79.0-92.2 MEAN CORPUSCULAR HEMOGLOBIN (BEAKER) (test 19.8 pg 25.7-32.2 hmix=307) MEAN CORPUSCULAR HEMOGLOBIN CONC (BEAKER) (test 28.6 GM/DL 32.3-36.5 zvrf=672) RED CELL DISTRIBUTION WIDTH (BEAKER) (test 21.3 % 11.6-14.4 tbqx=763) PLATELET COUNT (BEAKER) (test lyir=364) 110 K/CU MM 150-450 MEAN PLATELET VOLUME (BEAKER) (test getj=210) 10.1 fL 9.4-12.4 NUCLEATED RED BLOOD CELLS (BEAKER) (test 0 /100 WBC 0-0 hngp=812) NEUTROPHILS RELATIVE PERCENT (BEAKER) (test 66 % ewxu=429) LYMPHOCYTES RELATIVE PERCENT (BEAKER) (test 19 % qgqh=152) MONOCYTES RELATIVE PERCENT (BEAKER) (test 8 % zwus=350) EOSINOPHILS RELATIVE PERCENT (BEAKER) (test 6 % wdwd=663) BASOPHILS RELATIVE PERCENT (BEAKER) (test 1 % wwhu=620) NEUTROPHILS ABSOLUTE COUNT (BEAKER) (test 3.03 K/ L 1.78-5.38 rnak=679) LYMPHOCYTES ABSOLUTE COUNT (BEAKER) (test 0.88 K/ L 1.32-3.57 pojn=992) MONOCYTES ABSOLUTE COUNT (BEAKER) (test 0.37 K/ L 0.30-0.82 ngjc=544) EOSINOPHILS ABSOLUTE COUNT (BEAKER) (test 0.25 K/ L 0.04-0.54 ckns=259) BASOPHILS ABSOLUTE COUNT (BEAKER) (test 0.04 K/ L 0.01-0.08 ivil=628) IMMATURE GRANULOCYTES-RELATIVE PERCENT (BEAKER) 0 % 0-1 (test zcuc=8208) POCT-GLUCOSE [id number] 00:26:00 Test Item Value Reference Range Comments POC-GLUCOSE METER (BEAKER) 161 mg/dL 70-110 TESTED AT [address] (test rfnc=1784) [facility] [address] URINALYSIS W/ [id number] 17:35:00 Test Item Value Reference Range Comments COLOR (BEAKER) (test dvaw=153) Light Yellow CLARITY (BEAKER) (test lgms=317) Clear SPECIFIC GRAVITY UA (BEAKER) (test iaxl=137) 1.008 1.001-1.035 PH UA (BEAKER) (test plgp=944) 7.5 5.0-8.0 PROTEIN UA (BEAKER) (test knzw=219) 30 mg/dL Negative GLUCOSE UA (BEAKER) (test vrsb=056) 30 mg/dL Negative KETONES UA (BEAKER) (test szsk=539) Negative Negative BILIRUBIN UA (BEAKER) (test rhac=118) Negative Negative BLOOD UA (BEAKER) (test oxsm=481) Trace Negative NITRITE UA (BEAKER) (test yoey=481) Negative Negative LEUKOCYTE ESTERASE UA (BEAKER) (test upln=652) Negative Negative UROBILINOGEN UA (BEAKER) (test nyyx=931) 0.2 mg/dL 0.2-1.0 RBC UA (BEAKER) (test czcx=364) 1 /HPF WBC UA (BEAKER) (test awou=271) 1 /HPF SOURCE(BEAKER) (test wqnd=2541) Urine, Voided POCT-GLUCOSE [id number] 16:55:00 Test Item Value Reference Range Comments POC-GLUCOSE METER (BEAKER) 234 mg/dL 70-110 TESTED AT [address] (test zvwj=8152) [facility] [address] POCT-GLUCOSE [id number] 12:09:00 Test Item Value Reference Range Comments POC-GLUCOSE METER (BEAKER) 199 mg/dL 70-110 TESTED AT [address] (test kmfq=3634) [facility] [address] POCT-GLUCOSE [id number] 07:58:00 Test Item Value Reference Range Comments POC-GLUCOSE METER (BEAKER) 221 mg/dL 70-110 TESTED AT [address] (test gypa=2656) [facility] [address] POCT-GLUCOSE [id number] 22:49:00 Test Item Value Reference Range Comments POC-GLUCOSE METER (BEAKER) 210 mg/dL 70-110 TESTED AT [address] (test tuws=8457) [facility] [address] POCT-GLUCOSE [id number] 14:45:00 Test Item Value Reference Range Comments POC-GLUCOSE METER (BEAKER) 128 mg/dL 70-110 TESTED AT [address] (test heou=7142) [facility] [address] POCT-GLUCOSE [id number] 12:03:00 Test Item Value Reference Range Comments POC-GLUCOSE METER (BEAKER) 136 mg/dL 70-110 TESTED AT [address] (test chrk=4733) [facility] [address] COMPREHENSIVE METABOLIC [id number] 09:07:00 Test Item Value Reference Range Comments TOTAL PROTEIN (BEAKER) 6.9 gm/dL 6.0-8.3 Specimen slightly (test upvq=012) hemolyzed ALBUMIN (BEAKER) (test 2.7 g/dL 3.5-5.0 Specimen slightly qdin=6206) hemolyzed ALKALINE PHOSPHATASE 136 U/L 40-150 (BEAKER) (test uaxy=581) BILIRUBIN TOTAL (BEAKER) 1.1 mg/dL 0.2-1.2 Specimen slightly (test bghi=668) hemolyzed SODIUM (BEAKER) (test 135 meq/L 136-145 ezer=943) POTASSIUM (BEAKER) (test 4.4 meq/L 3.5-5.1 Specimen slightly oznv=346) hemolyzed CHLORIDE (BEAKER) (test 106 meq/L 98-107 qrxd=274) CO2 (BEAKER) (test 26 meq/L 22-29 bhto=448) BLOOD UREA NITROGEN 7 mg/dL 7-21 (BEAKER) (test gczy=516) CREATININE (BEAKER) (test 0.85 mg/dL 0.57-1.25 Specimen slightly ijxg=776) hemolyzed GLUCOSE RANDOM (BEAKER) 118 mg/dL 70-105 (test iohr=277) CALCIUM (BEAKER) (test 8.8 mg/dL 8.4-10.2 ijca=109) AST (SGOT) (BEAKER) (test 69 U/L 5-34 Specimen slightly psys=750) hemolyzed ALT (SGPT) (BEAKER) (test 28 U/L 6-55 Specimen slightly etfc=388) hemolyzed EGFR (BEAKER) (test 94 mL/min/1.73 sq m ESTIMATED GFR IS NOT penm=5022) ACCURATE CREATININE CLEARANCE IN PREDICTING GLOMERULAR FILTRATION RATE. ESTIMATED GFR IS NOT APPLICABLE FOR DIALYSIS PATIENTS. CBC W/PLT COUNT & AUTO [id number] 08:37:00 Test Item Value Reference Range Comments WHITE BLOOD CELL COUNT 4.4 K/ L 3.5-10.5 (BEAKER) (test dgsu=924) RED BLOOD CELL COUNT (BEAKER) 4.31 M/ L 4.63-6.08 (test ezpf=808) HEMOGLOBIN (BEAKER) (test 8.4 GM/DL 13.7-17.5 hclf=874) HEMATOCRIT (BEAKER) (test 30.2 % 40.1-51.0 text=571) MEAN CORPUSCULAR VOLUME 70.1 fL 79.0-92.2 (BEAKER) (test tszg=959) MEAN CORPUSCULAR HEMOGLOBIN 19.5 pg 25.7-32.2 (BEAKER) (test kdyq=445) MEAN CORPUSCULAR HEMOGLOBIN 27.8 GM/DL 32.3-36.5 CONC (BEAKER) (test oegl=962) RED CELL DISTRIBUTION WIDTH 21.9 % 11.6-14.4 (BEAKER) (test tmon=176) PLATELET COUNT (BEAKER) (test 114 K/CU MM 150-450 rhtk=515) MEAN PLATELET VOLUME (BEAKER) fL 9.4-12.4 Unable to report due to (test oaxg=115) abnormal Platelet population distribution. NUCLEATED RED BLOOD CELLS 0 /100 WBC 0-0 (BEAKER) (test fbci=073) NEUTROPHILS RELATIVE PERCENT 62 % (BEAKER) (test hgcb=369) LYMPHOCYTES RELATIVE PERCENT 22 % (BEAKER) (test ctth=372) MONOCYTES RELATIVE PERCENT 8 % (BEAKER) (test zqix=355) EOSINOPHILS RELATIVE PERCENT 6 % (BEAKER) (test xtld=135) BASOPHILS RELATIVE PERCENT 1 % (BEAKER) (test ohlk=778) NEUTROPHILS ABSOLUTE COUNT 2.75 K/ L 1.78-5.38 (BEAKER) (test dmap=418) LYMPHOCYTES ABSOLUTE COUNT 0.98 K/ L 1.32-3.57 (BEAKER) (test ysnt=807) MONOCYTES ABSOLUTE COUNT 0.34 K/ L 0.30-0.82 (BEAKER) (test rbie=284) EOSINOPHILS ABSOLUTE COUNT 0.28 K/ L 0.04-0.54 (BEAKER) (test bfrg=683) BASOPHILS ABSOLUTE COUNT 0.06 K/ L 0.01-0.08 (BEAKER) (test siju=845) IMMATURE GRANULOCYTES-RELATIVE 1 % 0-1 PERCENT (BEAKER) (test xprj=2487) POCT-GLUCOSE [id number] 08:07:00 Test Item Value Reference Range Comments POC-GLUCOSE METER (BEAKER) 144 mg/dL 70-110 TESTED AT [address] (test dlpd=3381) [place] [address] [id number] 23:43:00 Test Item Value Reference Range Comments MAGNESIUM (BEAKER) (test oogh=420) 1.7 mg/dL 1.6-2.6 POCT-GLUCOSE [id number] 22:22:00 Test Item Value Reference Range Comments POC-GLUCOSE METER (BEAKER) 211 mg/dL 70-110 TESTED AT [address] (test jeos=6857) [place] [address] POCT-GLUCOSE [id number] 17:13:00 Test Item Value Reference Range Comments POC-GLUCOSE METER (BEAKER) 202 mg/dL 70-110 TESTED AT [address] (test gyml=7609) [place] [address] [id number] 16:14:00 Test Item Value Reference Range Comments T3 TOTAL (BEAKER) (test hmly=512) 108 ng/dL 48-159 POCT-GLUCOSE [id number] 13:49:00 Test Item Value Reference Range Comments POC-GLUCOSE METER (BEAKER) 303 mg/dL 70-[address] [facility] [address] [facility] (test kieg=3914) [facility] [address] POCT-GLUCOSE [id number] 12:15:00 Test Item Value Reference Range Comments POC-GLUCOSE METER (BEAKER) 304 mg/dL 70-110 Notified JADA NIX/TESTED AT [facility] (test dqcr=1988) [address] [place] [id number] ANTI-MITOCHONDRIAL AB, REFLEX TO [id number] 08:35:00 Test Item Value Reference Range Comments SCAN RESULT (test solg=[id number]) POCT-GLUCOSE [id number] 08:08:00 Test Item Value Reference Range Comments POC-GLUCOSE METER (BEAKER) 146 mg/dL 70-110 TESTED AT [place] [id number] [facility] (test yrsu=7065) [facility] [address] HEPATIC FUNCTION [id number] 06:32:00 Test Item Value Reference Range Comments TOTAL PROTEIN (BEAKER) (test tlpx=021) 6.5 gm/dL 6.0-8.3 ALBUMIN (BEAKER) (test zhcy=9877) 2.7 g/dL 3.5-5.0 BILIRUBIN TOTAL (BEAKER) (test jqfh=589) 0.8 mg/dL 0.2-1.2 BILIRUBIN DIRECT (BEAKER) (test nwow=060) 0.6 mg/dL 0.1-0.5 ALKALINE PHOSPHATASE (BEAKER) (test kqjj=296) 141 U/L 40-150 AST (SGOT) (BEAKER) (test txyt=462) 66 U/L 5-34 ALT (SGPT) (BEAKER) (test duxj=483) 27 U/L 6-55 BASIC METABOLIC [id number] 06:32:00 Test Item Value Reference Range Comments SODIUM (BEAKER) (test 137 meq/L 136-145 jksf=068) POTASSIUM (BEAKER) (test 4.0 meq/L 3.5-5.1 fcoo=174) CHLORIDE (BEAKER) (test 106 meq/L 98-107 hlfe=469) CO2 (BEAKER) (test 26 meq/L 22-29 qqai=201) BLOOD UREA NITROGEN 7 mg/dL 7-21 (BEAKER) (test rjli=969) CREATININE (BEAKER) (test 0.81 mg/dL 0.57-1.25 rnch=782) GLUCOSE RANDOM (BEAKER) 134 mg/dL 70-105 (test hfwy=624) CALCIUM (BEAKER) (test 8.6 mg/dL 8.4-10.2 bxgn=598) EGFR (BEAKER) (test 99 mL/min/1.73 sq m ESTIMATED GFR IS NOT toig=0725) ACCURATE CREATININE CLEARANCE IN PREDICTING GLOMERULAR FILTRATION RATE. ESTIMATED GFR IS NOT APPLICABLE FOR DIALYSIS PATIENTS. CBC (HEMOGRAM ONLY)2018-12-23 05:34:00 Test Item Value Reference Range Comments WHITE BLOOD CELL COUNT (BEAKER) (test hcfb=290) 4.4 K/ L 3.5-10.5 RED BLOOD CELL COUNT (BEAKER) (test sqop=274) 4.11 M/ L 4.63-6.08 HEMOGLOBIN (BEAKER) (test hysm=458) 8.0 GM/DL 13.7-17.5 HEMATOCRIT (BEAKER) (test memi=433) 28.2 % 40.1-51.0 MEAN CORPUSCULAR VOLUME (BEAKER) (test wtnn=703) 68.6 fL 79.0-92.2 MEAN CORPUSCULAR HEMOGLOBIN (BEAKER) (test 19.5 pg 25.7-32.2 dast=957) MEAN CORPUSCULAR HEMOGLOBIN CONC (BEAKER) (test 28.4 GM/DL 32.3-36.5 feas=600) RED CELL DISTRIBUTION WIDTH (BEAKER) (test 21.5 % 11.6-14.4 ojfp=417) PLATELET COUNT (BEAKER) (test oslf=651) 121 K/CU MM 150-450 MEAN PLATELET VOLUME (BEAKER) (test atbb=027) 10.2 fL 9.4-12.4 NUCLEATED RED BLOOD CELLS (BEAKER) (test 0 /100 WBC 0-0 taax=064) PROTHROMBIN [id number] 05:27:00 Test Item Value Reference Range Comments PROTIME (BEAKER) (test mtrx=680) 15.2 seconds 11.7-14.7 INR (BEAKER) (test imtu=031) 1.2 <=5.9 RECOMMENDED COUMADIN/WARFARIN INR THERAPY RANGESSTANDARD DOSE: 2.0 - 3.0 Includes: PROPHYLAXIS forvenous thrombosis, systemic embolization; TREATMENT for venous thrombosis and/or pulmonary embolus.HIGH RISK: Target INR is 2.5-3.5 for patients with mechanical heart valves.POCT-GLUCOSE [id number] 23:11:00 Test Item Value Reference Range Comments POC-GLUCOSE METER (BEAKER) 224 mg/dL 70-110 TESTED AT [address] (test gkzc=9579) [facility] [address] POCT-GLUCOSE [id number] 16:52:00 Test Item Value Reference Range Comments POC-GLUCOSE METER (BEAKER) 250 mg/dL 70-110 TESTED AT [address] (test ijxi=5065) [facility] [address] POCT-GLUCOSE [id number] 11:56:00 Test Item Value Reference Range Comments POC-GLUCOSE METER (BEAKER) 310 mg/dL 70-110 TESTED AT [address] (test keji=6793) [facility] [address] POCT-GLUCOSE [id number] 07:50:00 Test Item Value Reference Range Comments POC-GLUCOSE METER (BEAKER) 267 mg/dL 70-110 TESTED AT [address] (test izfv=9006) [facility] [address] COMPREHENSIVE METABOLIC [id number] 05:05:00 Test Item Value Reference Range Comments TOTAL PROTEIN (BEAKER) 6.3 gm/dL 6.0-8.3 (test tmrs=179) ALBUMIN (BEAKER) (test 2.6 g/dL 3.5-5.0 zeos=0782) ALKALINE PHOSPHATASE 112 U/L 40-150 (BEAKER) (test rpyx=990) BILIRUBIN TOTAL (BEAKER) 0.9 mg/dL 0.2-1.2 (test cuiv=028) SODIUM (BEAKER) (test 138 meq/L 136-145 abth=153) POTASSIUM (BEAKER) (test 3.9 meq/L 3.5-5.1 pxru=622) CHLORIDE (BEAKER) (test 108 meq/L 98-107 swze=462) CO2 (BEAKER) (test 25 meq/L 22-29 nisn=285) BLOOD UREA NITROGEN 6 mg/dL 7-21 (BEAKER) (test qczr=398) CREATININE (BEAKER) (test 0.82 mg/dL 0.57-1.25 jxyk=245) GLUCOSE RANDOM (BEAKER) 146 mg/dL 70-105 (test burq=801) CALCIUM (BEAKER) (test 8.8 mg/dL 8.4-10.2 xclx=310) AST (SGOT) (BEAKER) (test 73 U/L 5-34 ctrd=911) ALT (SGPT) (BEAKER) (test 25 U/L 6-55 vhub=645) EGFR (BEAKER) (test 98 mL/min/1.73 sq m ESTIMATED GFR IS NOT guri=5453) ACCURATE CREATININE CLEARANCE IN PREDICTING GLOMERULAR FILTRATION RATE. ESTIMATED GFR IS NOT APPLICABLE FOR DIALYSIS PATIENTS. POCT-GLUCOSE [id number] 22:34:00 Test Item Value Reference Range Comments POC-GLUCOSE METER (BEAKER) 186 mg/dL 70-110 TESTED AT [address] (test zaui=1480) [place] [address] POCT-GLUCOSE [id number] 18:03:00 Test Item Value Reference Range Comments POC-GLUCOSE METER (BEAKER) 206 mg/dL 70-110 TESTED AT [address] (test zqdd=0281) [place] [address] RAD, MANDIBLE, MIN 4 [id number] 17:16:00Reason for exam:->liver transplant evalShould this be [...] Mauricioepanthony Verified Date/Time: 12/21/2018 17:16:26 Reading Location: [address] Reading Room POCT-GLUCOSE [id number] 11:42:00 Test Item Value Reference Range Comments POC-GLUCOSE METER (BEAKER) 305 mg/dL 70-110 Notified JADA NIX/TESTED AT [facility] (test pfly=5608) [address] [place] [address] POCT-GLUCOSE [id number] 08:14:00 Test Item Value Reference Range Comments POC-GLUCOSE METER (BEAKER) 288 mg/dL 70-110 TESTED AT [address] (test fujd=5420) [place] [id number] POCT-GLUCOSE [id number] 23:29:00 Test Item Value Reference Range Comments POC-GLUCOSE METER (BEAKER) 134 mg/dL 70-110 TESTED AT [address] (test hujj=4353) [place] [id number] POCT-GLUCOSE [id number] 18:42:00 Test Item Value Reference Range Comments POC-GLUCOSE METER (BEAKER) 357 mg/dL 70-110 TESTED AT [address] (test cenp=1493) [place] [address] CRYPTOCOCCAL [id number] 11:32:00 Test Item Value Reference Range Comments CRYPTOCOCCAL ANTIGEN, SERUM (BEAKER) (test Negative Negative, Interference pjaw=9444) [id number] 11:30:00 Test Item Value Reference Range Comments RPR SCREEN (BEAKER) (test aoob=908) Nonreactive Nonreactive HEMOGLOBIN [id number] 10:23:00 Test Item Value Reference Range Comments HEMOGLOBIN A1C (BEAKER) (test tnhc=921) 6.7 % 4.3-6.1 CYTOMEGALOVIRUS ANTIBODY, [id number] 09:29:00 Test Item Value Reference Range Comments CYTOMEGALOVIRUS, IGG (BEAKER) (test wugm=1598) Positive Negative, Equivocal CMV IgG Result Interpretation: </=0.8 Al Negative 0.9-1.0 Al Equivocal &gt ;/=1.1 Al PositiveCYTOMEGALOVIRUS ANTIBODY, [id number] 09:29:00 Test Item Value Reference Range Comments CYTOMEGALOVIRUS IGM ANTIBODY (BEAKER) (test Negative Negative, Equivocal pixj=5187) CMV IgM Result Interpretation: </=0.8 Al Negative 0.9-1.0 Al Equivocal >/=1.1 Al PositiveEBV ANTIBODY, [id number] 09:29:00 Test Item Value Reference Range Comments JAQUELINE MEDRANO VIRAL CAPSID ANTIGEN IGG (BEAKER) Positive Negative, Equivocal (test dzrc=2003) Jaqueline Medrano Viral Capsid Antigen IgG Result Interpretation: </=0.8 Al Negative 0.9-1.0 Al Equivocal >/=1.1 Al PositiveEBV ANTIBODY, [id number] 09:29:00 Test Item Value Reference Range Comments JAQUELINE MEDRANO VIRAL CAPSID ANTIGEN IGM (BEAKER) Negative Negative, Equivocal (test sqzu=2730) Jaqueline Medrano Viral Capsid Antigen IgM Result Interpretation: </=0.8 Al Negative 0.9-1.0 Al Equivocal >/=1.1 Al PositivePOCT-GLUCOSE [id number] 07:53:00 Test Item Value Reference Range Comments POC-GLUCOSE METER (BEAKER) 168 mg/dL 70-[address] [facility] [address] [facility] (test qbwu=6781) [facility] [address] CBC (HEMOGRAM ONLY)2018-12-20 07:02:00 Test Item Value Reference Range Comments WHITE BLOOD CELL COUNT (BEAKER) (test wnii=258) 4.7 K/ L 3.5-10.5 RED BLOOD CELL COUNT (BEAKER) (test vcqg=943) 4.09 M/ L 4.63-6.08 HEMOGLOBIN (BEAKER) (test driq=796) 8.1 GM/DL 13.7-17.5 HEMATOCRIT (BEAKER) (test dklt=646) 28.3 % 40.1-51.0 MEAN CORPUSCULAR VOLUME (BEAKER) (test pype=638) 69.2 fL 79.0-92.2 MEAN CORPUSCULAR HEMOGLOBIN (BEAKER) (test 19.8 pg 25.7-32.2 dujz=605) MEAN CORPUSCULAR HEMOGLOBIN CONC (BEAKER) (test 28.6 GM/DL 32.3-36.5 vgvp=179) RED CELL DISTRIBUTION WIDTH (BEAKER) (test 21.8 % 11.6-14.4 yoix=424) PLATELET COUNT (BEAKER) (test nvgr=919) 121 K/CU MM 150-450 MEAN PLATELET VOLUME (BEAKER) (test bwzm=629) 10.6 fL 9.4-12.4 NUCLEATED RED BLOOD CELLS (BEAKER) (test 0 /100 WBC 0-0 wqrz=824) CALCIUM, [id number] 06:36:00 Test Item Value Reference Range Comments CALCIUM IONIZED (BEAKER) (test ervj=089) 1.07 mmol/L 1.12-1.27 PH, BLOOD (BEAKER) (test xpad=4305) 7.41 HEPATIC FUNCTION [id number] 06:32:00 Test Item Value Reference Range Comments TOTAL PROTEIN (BEAKER) (test pkvx=394) 6.4 gm/dL 6.0-8.3 ALBUMIN (BEAKER) (test znuv=3202) 2.6 g/dL 3.5-5.0 BILIRUBIN TOTAL (BEAKER) (test mdgr=414) 0.6 mg/dL 0.2-1.2 BILIRUBIN DIRECT (BEAKER) (test uovx=059) 0.4 mg/dL 0.1-0.5 ALKALINE PHOSPHATASE (BEAKER) (test swfv=280) 127 U/L 40-150 AST (SGOT) (BEAKER) (test bjmt=071) 54 U/L 5-34 ALT (SGPT) (BEAKER) (test rzmw=747) 22 U/L 6-55 BASIC METABOLIC [id number] 06:32:00 Test Item Value Reference Range Comments SODIUM (BEAKER) (test 138 meq/L 136-145 yssd=498) POTASSIUM (BEAKER) (test 3.8 meq/L 3.5-5.1 ybwy=861) CHLORIDE (BEAKER) (test 104 meq/L 98-107 fyej=988) CO2 (BEAKER) (test 26 meq/L 22-29 iuga=563) BLOOD UREA NITROGEN 8 mg/dL 7-21 (BEAKER) (test acan=834) CREATININE (BEAKER) (test 0.85 mg/dL 0.57-1.25 cfoc=610) GLUCOSE RANDOM (BEAKER) 167 mg/dL 70-105 (test bgwp=493) CALCIUM (BEAKER) (test 8.3 mg/dL 8.4-10.2 fncz=054) EGFR (BEAKER) (test 94 mL/min/1.73 sq m ESTIMATED GFR IS NOT rifv=2081) ACCURATE CREATININE CLEARANCE IN PREDICTING GLOMERULAR FILTRATION RATE. ESTIMATED GFR IS NOT APPLICABLE FOR DIALYSIS PATIENTS. POCT-GLUCOSE [id number] 23:08:00 Test Item Value Reference Range Comments POC-GLUCOSE METER (BEAKER) 284 mg/dL 70-110 TESTED AT [address] (test kywk=0375) [facility] [address] POCT-GLUCOSE [id number] 20:20:00 Test Item Value Reference Range Comments POC-GLUCOSE METER (BEAKER) 185 mg/dL 70-[address] [facility] [address] [facility] (test fkjc=6955) [facility] [address] BLOOD GAS, [id number] 20:05:00 Test Item Value Reference Range Comments PH ARTERIAL (BEAKER) (test cltx=968) 7.48 7.35-7.45 PCO2 ARTERIAL (BEAKER) (test aweu=963) 38 mmHg 35-45 PO2 ARTERIAL (BEAKER) (test mimf=524) 83 mmHg 80-90 O2 SATURATION ARTERIAL (BEAKER) (test sfza=558) 97.1 % 96.0-97.0 HCO3 ARTERIAL (BEAKER) (test ttpa=449) 28 mmol/L 21-29 BASE EXCESS ARTERIAL (BEAKER) (test lwnv=733) 4.0 mmol/L -2.0-3.0 PATIENT TEMPERATURE (BEAKER) (test mkrn=5396) 36.3 C FIO2 (BEAKER) (test bkoc=3119) 21.0 % HEPATITIS B SURFACE [id number] 19:10:00 Test Item Value Reference Range Comments HEPATITIS B SURFACE ANTIBODY (BEAKER) (test < mIU/mL <8.0 ylat=387) VITAMIN D, [id number] 19:08:00 Test Item Value Reference Range Comments VITAMIN D 25-OH (BEAKER) (test kncr=8953) 6.6 ng/mL 6.6-49.9 Effective 07/04/2017: Reference Range ChangeNew: 6.6-49.9 ng/mL Previous: 13.0 -47.8 ng/mLRecommended Vitamin D Target Range: 30.0-40.0 ng/mLCARCINOEMBRYONIC ANTIGEN (CEA)2018-12-19 19:07:00 Test Item Value Reference Range Comments CARCINOEMBRYONIC ANTIGEN (BEAKER) (test iatn=631) 1.9 ng/mL 0.0-5.0 HEPATITIS B SURFACE [id number] 19:07:00 Test Item Value Reference Range Comments HEPATITIS B SURFACE ANTIGEN (2) (BEAKER) (test Nonreactive Nonreactive mmrf=7246) HEPATITIS B CORE ANTIBODY, [id number] 19:07:00 Test Item Value Reference Range Comments HEPATITIS B CORE IGM ANTIBODY (BEAKER) (test Nonreactive Nonreactive npqm=583) HEPATITIS A ANTIBODY, [id number] 19:07:00 Test Item Value Reference Range Comments HEPATITIS A IGM ANTIBODY (BEAKER) (test Nonreactive Nonreactive artz=967) [id number] 18:59:00 Test Item Value Reference Range Comments PROSTATE SPECIFIC ANTIGEN (BEAKER) (test rbws=847) 0.5 ng/mL 0.0-4.0 HIV-1 ANTIGEN WITH HIV-1/2 [id number] 18:59:00 Test Item Value Reference Range Comments HIV-1 ANTIGEN WITH HIV 1\T\2 ANTIBODY (2) Nonreactive Nonreactive (BEAKER) (test rsos=1943) [id number] 18:58:00 Test Item Value Reference Range Comments TRANSFERRIN (BEAKER) (test pdnw=989) 288 mg/dL 174-382 [id number] 18:22:00 Test Item Value Reference Range Comments THYROID STIMULATING HORMONE (BEAKER) (test 5.24 uIU/mL 0.35-4.94 fwfy=589) [id number] 18:19:00 Test Item Value Reference Range Comments T4 TOTAL (BEAKER) (test hdrs=726) 6.9 ug/dL 4.9-11.7 URIC [id number] 18:01:00 Test Item Value Reference Range Comments URIC ACID (BEAKER) (test yojl=038) 4.7 mg/dL 2.6-7.2 [id number] 18:01:00 Test Item Value Reference Range Comments MAGNESIUM (BEAKER) (test vuqd=195) 1.7 mg/dL 1.6-2.6 [id number] 18:01:00 Test Item Value Reference Range Comments PHOSPHORUS (BEAKER) (test akqm=921) 2.6 mg/dL 2.3-4.7 LIPID [id number] 18:01:00 Test Item Value Reference Range Comments TRIGLYCERIDES (BEAKER) (test lipr=791) 47 mg/dL CHOLESTEROL (BEAKER) (test xtgx=688) 104 mg/dL HDL CHOLESTEROL (BEAKER) (test ssfa=586) 33 mg/dL LDL CHOLESTEROL CALCULATED (BEAKER) (test 62 mg/dL vhcf=464) Triglyceride Reference Range: Low Risk <150 Borderline [...] Range Comments GAMMA GLUTAMYL TRANSFERASE (BEAKER) (test seid=704) 24 U/L 9-64 [id number] 18:00:00 Test Item Value Reference Range Comments ETHANOL (BEAKER) (test phmi=793) < mg/dL <=10 [id number] 12:48:00 Test Item Value Reference Range Comments D-DIMER QUANTITATIVE (Enforcer eCoachingAKER) (test zses=050) 6.75 MG/L FEU <0.50 Intended Use: The D-Dimer Assay can be used to aid in the diagnosis of Deep Vein Thrombosis (DVT) and Pulmonary Embolism Disease (PED).In patients with low pre-test probability, various studies concerning STA Liatest D-dimer test have reported that with a cutoff value of 0.50 MG/L FEU, the Negative Predictive Value (NPV) regarding the exclusion of thrombosis is within 95-100% range.[id number] 12:41:00 Test Item Value Reference Range Comments PARTIAL THROMBOPLASTIN TIME (BEAKER) (test 35.4 seconds 22.5-36.0 nbmd=842) PROTHROMBIN [id number] 12:39:00 Test Item Value Reference Range Comments PROTIME (BEAKER) (test nfex=257) 14.9 seconds 11.7-14.7 INR (BEAKER) (test dwvi=594) 1.2 <=5.9 RECOMMENDED COUMADIN/WARFARIN INR THERAPY RANGESSTANDARD DOSE: 2.0 - 3.0 Includes: PROPHYLAXIS forvenous thrombosis, systemic embolization; TREATMENT for venous thrombosis and/or pulmonary embolus.HIGH RISK: Target INR is 2.5-3.5 for patients with mechanical heart valves.POCT-GLUCOSE [id number] 11:36:00 Test Item Value Reference Range Comments POC-GLUCOSE METER (BEAKER) 267 mg/dL 70-110 TESTED AT [address] (test fhwt=1442) [facility] [address] POCT-GLUCOSE [id number] 10:02:00 Test Item Value Reference Range Comments POC-GLUCOSE METER (BEAKER) 249 mg/dL 70-110 TESTED AT [address] (test varp=7285) [place] [id number] MISCELLANEOUS LAB [id number] 07:59:00 Test Item Value Reference Range Comments SCAN RESULT (test qogk=[id number]) POCT-GLUCOSE [id number] 07:50:00 Test Item Value Reference Range Comments POC-GLUCOSE METER (BEAKER) 228 mg/dL 70-110 TESTED AT [address] (test frjv=5642) [place] [id number] HEPATIC FUNCTION [id number] 06:21:00 Test Item Value Reference Range Comments TOTAL PROTEIN (BEAKER) (test fwwg=548) 6.8 gm/dL 6.0-8.3 ALBUMIN (BEAKER) (test itdy=6220) 2.8 g/dL 3.5-5.0 BILIRUBIN TOTAL (BEAKER) (test diqm=098) 0.9 mg/dL 0.2-1.2 BILIRUBIN DIRECT (BEAKER) (test tmtd=589) 0.5 mg/dL 0.1-0.5 ALKALINE PHOSPHATASE (BEAKER) (test dtkb=606) 117 U/L 40-150 AST (SGOT) (BEAKER) (test utkg=788) 47 U/L 5-34 ALT (SGPT) (BEAKER) (test amrn=572) 18 U/L 6-55 BASIC METABOLIC [id number] 06:21:00 Test Item Value Reference Range Comments SODIUM (BEAKER) (test 136 meq/L 136-145 tsuh=155) POTASSIUM (BEAKER) (test 3.8 meq/L 3.5-5.1 hwlw=915) CHLORIDE (BEAKER) (test 104 meq/L 98-107 dqye=964) CO2 (BEAKER) (test 26 meq/L 22-29 wtdv=440) BLOOD UREA NITROGEN 7 mg/dL 7-21 (BEAKER) (test juna=725) CREATININE (BEAKER) (test 0.84 mg/dL 0.57-1.25 jfmt=970) GLUCOSE RANDOM (BEAKER) 152 mg/dL 70-105 (test jhdw=706) CALCIUM (BEAKER) (test 8.4 mg/dL 8.4-10.2 jxph=847) EGFR (BEAKER) (test 95 mL/min/1.73 sq m ESTIMATED GFR IS NOT yetx=5134) ACCURATE CREATININE CLEARANCE IN PREDICTING GLOMERULAR FILTRATION RATE. ESTIMATED GFR IS NOT APPLICABLE FOR DIALYSIS PATIENTS. CBC (HEMOGRAM ONLY)2018-12-19 06:02:00 Test Item Value Reference Range Comments WHITE BLOOD CELL COUNT (BEAKER) (test pyzf=090) 5.3 K/ L 3.5-10.5 RED BLOOD CELL COUNT (BEAKER) (test kcfv=149) 4.18 M/ L 4.63-6.08 HEMOGLOBIN (BEAKER) (test ayrd=231) 8.2 GM/DL 13.7-17.5 HEMATOCRIT (BEAKER) (test qrje=906) 28.9 % 40.1-51.0 MEAN CORPUSCULAR VOLUME (BEAKER) (test ckvl=318) 69.1 fL 79.0-92.2 MEAN CORPUSCULAR HEMOGLOBIN (BEAKER) (test 19.6 pg 25.7-32.2 nurt=663) MEAN CORPUSCULAR HEMOGLOBIN CONC (BEAKER) (test 28.4 GM/DL 32.3-36.5 apuk=329) RED CELL DISTRIBUTION WIDTH (BEAKER) (test 21.5 % 11.6-14.4 iaiw=703) PLATELET COUNT (BEAKER) (test mwlh=684) 130 K/CU MM 150-450 MEAN PLATELET VOLUME (BEAKER) (test tzto=423) 9.9 fL 9.4-12.4 NUCLEATED RED BLOOD CELLS (BEAKER) (test 0 /100 WBC 0-0 bvqe=595) POCT-GLUCOSE [id number] 21:21:00 Test Item Value Reference Range Comments POC-GLUCOSE METER (BEAKER) 213 mg/dL 70-[address] [facility] [address] [facility] (test ekav=0167) [place] [address] MR, ABDOMEN, [id number] 19:09:00Addendum BeginsREPORT STATUS:A Access Database Developer error in the third 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 It should read: Questionable small nonocclusive thrombus in the high SUPERIOR mesenteric vein. Signed: Roe Solorzano MDReport Verified Date/Time: 12/18/2018 19:09:20 Reading Location: [address] Body Reading RoomAddendum EndsFINAL REPORT [...] MDReport Verified Date/Time: 12/17/2018 10:57:37 Reading Location: [facility] B[facility] C[address] CT Body Reading Room POCT-GLUCOSE [id number] 17:47:00 Test Item Value Reference Range Comments POC-GLUCOSE METER (BEAKER) 199 mg/dL 70-110 TESTED AT [address] (test mcnn=8747) [facility] [address] POCT-GLUCOSE [id number] 12:02:00 Test Item Value Reference Range Comments POC-GLUCOSE METER (BEAKER) 301 mg/dL 70-110 TESTED AT [address] (test rdsj=1321) [facility] [address] HEPATITIS C PCR, [id number] 09:48:00 Test Item Value Reference Range Comments HCV NUMERIC RESULT (BEAKER) (test sryq=3260) [id number] IU/mL <15 This test uses a Real-Time Polymerase Chain Reaction (RT-PCR) methodology and was performed using MAJOR Ampliprep/MAJOR TaqMan HCV test kit version 2.0 ( [employer]).Reportable range for this assay is 15 - 100,000, 000 IU per mL (1.18 - 8.00 Log IU/mL).POCT-GLUCOSE [id number] 09:18:00 Test Item Value Reference Range Comments POC-GLUCOSE METER (BEAKER) 284 mg/dL 70-110 TESTED AT [address] (test jhpy=7961) [facility] [address] HEPATIC FUNCTION [id number] 07:08:00 Test Item Value Reference Range Comments TOTAL PROTEIN (BEAKER) (test sljb=547) 6.5 gm/dL 6.0-8.3 ALBUMIN (BEAKER) (test ydyf=6792) 2.7 g/dL 3.5-5.0 BILIRUBIN TOTAL (BEAKER) (test pbdy=923) 0.9 mg/dL 0.2-1.2 BILIRUBIN DIRECT (BEAKER) (test qeqh=520) 0.5 mg/dL 0.1-0.5 ALKALINE PHOSPHATASE (BEAKER) (test fcew=943) 103 U/L 40-150 AST (SGOT) (BEAKER) (test hzcr=754) 40 U/L 5-34 ALT (SGPT) (BEAKER) (test ijao=744) 16 U/L 6-55 BASIC METABOLIC [id number] 07:08:00 Test Item Value Reference Range Comments SODIUM (BEAKER) (test 135 meq/L 136-145 koxf=384) POTASSIUM (BEAKER) (test 4.0 meq/L 3.5-5.1 vtir=569) CHLORIDE (BEAKER) (test 105 meq/L 98-107 kojw=358) CO2 (BEAKER) (test 25 meq/L 22-29 eimd=607) BLOOD UREA NITROGEN 9 mg/dL 7-21 (BEAKER) (test gcwc=504) CREATININE (BEAKER) (test 0.88 mg/dL 0.57-1.25 reoz=562) GLUCOSE RANDOM (BEAKER) 175 mg/dL 70-105 (test dqmr=083) CALCIUM (BEAKER) (test 8.2 mg/dL 8.4-10.2 qiuo=339) EGFR (BEAKER) (test 90 mL/min/1.73 sq m ESTIMATED GFR IS NOT qano=7053) ACCURATE CREATININE CLEARANCE IN PREDICTING GLOMERULAR FILTRATION RATE. ESTIMATED GFR IS NOT APPLICABLE FOR DIALYSIS PATIENTS. CBC (HEMOGRAM ONLY)2018-12-18 06:39:00 Test Item Value Reference Range Comments WHITE BLOOD CELL COUNT (BEAKER) (test mlxt=254) 6.9 K/ L 3.5-10.5 RED BLOOD CELL COUNT (BEAKER) (test lxrh=941) 4.15 M/ L 4.63-6.08 HEMOGLOBIN (BEAKER) (test eskt=693) 8.0 GM/DL 13.7-17.5 HEMATOCRIT (BEAKER) (test fsws=440) 28.7 % 40.1-51.0 MEAN CORPUSCULAR VOLUME (BEAKER) (test tkhs=716) 69.2 fL 79.0-92.2 MEAN CORPUSCULAR HEMOGLOBIN (BEAKER) (test 19.3 pg 25.7-32.2 tdgo=292) MEAN CORPUSCULAR HEMOGLOBIN CONC (BEAKER) (test 27.9 GM/DL 32.3-36.5 hlsw=922) RED CELL DISTRIBUTION WIDTH (BEAKER) (test 21.3 % 11.6-14.4 svkp=383) PLATELET COUNT (BEAKER) (test xypm=534) 122 K/CU MM 150-450 NUCLEATED RED BLOOD CELLS (BEAKER) (test 0 /100 WBC 0-0 tdha=633) POCT-GLUCOSE [id number] 22:48:00 Test Item Value Reference Range Comments POC-GLUCOSE METER (BEAKER) 237 mg/dL 70-[address] [facility] [address] (test xwiu=2811) [facility] [address] ANTI-NUCLEAR ANTIBODY (WILLOW)2018-12-17 11:52:00 Test Item Value Reference Range Comments ANTI-NUCLEAR ANTIBODY (WILLOW) (BEAKER) (test Positive Negative qvij=339) Test performed by IFA method.WILLOW TITER AND [id number] 11:52:00 Test Item Value Reference Range Comments WILLOW TITER (BEAKER) (test wgrq=5806) :160 WILLOW PATTERN (BEAKER) (test emvx=7126) Speckled [id number] 05:45:00 Test Item Value Reference Range Comments MAGNESIUM (BEAKER) (test 2.1 mg/dL 1.6-2.6 Specimen slightly hemolyzed ulci=706) [id number] 05:45:00 Test Item Value Reference Range Comments PHOSPHORUS (BEAKER) (test 3.0 mg/dL 2.3-4.7 Specimen slightly hemolyzed ajna=803) BASIC METABOLIC [id number] 05:45:00 Test Item Value Reference Range Comments SODIUM (BEAKER) (test 136 meq/L 136-145 wzhh=723) POTASSIUM (BEAKER) (test 4.3 meq/L 3.5-5.1 Specimen slightly uazw=529) hemolyzed CHLORIDE (BEAKER) (test 106 meq/L 98-107 flwu=773) CO2 (BEAKER) (test 25 meq/L 22-29 ukbc=402) BLOOD UREA NITROGEN 15 mg/dL 7-21 (BEAKER) (test oeco=173) CREATININE (BEAKER) (test 1.06 mg/dL 0.57-1.25 Specimen slightly tdmo=553) hemolyzed GLUCOSE RANDOM (BEAKER) 222 mg/dL 70-105 (test tovu=527) CALCIUM (BEAKER) (test 8.1 mg/dL 8.4-10.2 esnj=909) EGFR (BEAKER) (test 73 mL/min/1.73 sq m ESTIMATED GFR IS NOT vopj=6075) ACCURATE CREATININE CLEARANCE IN PREDICTING GLOMERULAR FILTRATION RATE. ESTIMATED GFR IS NOT APPLICABLE FOR DIALYSIS PATIENTS. HEPATIC FUNCTION [id number] 05:45:00 Test Item Value Reference Range Comments TOTAL PROTEIN (BEAKER) (test 6.6 gm/dL 6.0-8.3 Specimen slightly hemolyzed xigj=306) ALBUMIN (BEAKER) (test 2.6 g/dL 3.5-5.0 Specimen slightly hemolyzed owap=7205) BILIRUBIN TOTAL (BEAKER) (test 0.9 mg/dL 0.2-1.2 Specimen slightly hemolyzed jvge=338) BILIRUBIN DIRECT (BEAKER) (test 0.5 mg/dL 0.1-0.5 Specimen slightly hemolyzed qccx=674) ALKALINE PHOSPHATASE (BEAKER) 109 U/L 40-150 (test gwvn=258) AST (SGOT) (BEAKER) (test 53 U/L 5-34 Specimen slightly hemolyzed bzji=250) ALT (SGPT) (BEAKER) (test 21 U/L 6-55 Specimen slightly hemolyzed sowb=986) CBC W/PLT COUNT & AUTO [id number] 04:48:00 Test Item Value Reference Range Comments WHITE BLOOD CELL COUNT 8.1 K/ L 3.5-10.5 (BEAKER) (test syxf=009) RED BLOOD CELL COUNT (BEAKER) 4.33 M/ L 4.63-6.08 (test enxh=107) HEMOGLOBIN (BEAKER) (test 8.3 GM/DL 13.7-17.5 uakc=598) HEMATOCRIT (BEAKER) (test 29.9 % 40.1-51.0 vlzo=449) MEAN CORPUSCULAR VOLUME 69.1 fL 79.0-92.2 (BEAKER) (test kvdx=342) MEAN CORPUSCULAR HEMOGLOBIN 19.2 pg 25.7-32.2 (BEAKER) (test djxm=810) MEAN CORPUSCULAR HEMOGLOBIN 27.8 GM/DL 32.3-36.5 CONC (BEAKER) (test srsq=025) RED CELL DISTRIBUTION WIDTH 21.1 % 11.6-14.4 (BEAKER) (test iior=558) PLATELET COUNT (BEAKER) (test 141 K/CU MM 150-450 hiud=157) MEAN PLATELET VOLUME (BEAKER) fL 9.4-12.4 Unable to report due to (test peth=026) abnormal Platelet population distribution. NUCLEATED RED BLOOD CELLS 0 /100 WBC 0-0 (BEAKER) (test tmzm=705) NEUTROPHILS RELATIVE PERCENT 70 % (BEAKER) (test mszz=391) LYMPHOCYTES RELATIVE PERCENT 15 % (BEAKER) (test ykpk=106) MONOCYTES RELATIVE PERCENT 9 % (BEAKER) (test tncf=802) EOSINOPHILS RELATIVE PERCENT 6 % (BEAKER) (test djgc=386) BASOPHILS RELATIVE PERCENT 1 % (BEAKER) (test fxak=282) NEUTROPHILS ABSOLUTE COUNT 5.60 K/ L 1.78-5.38 (BEAKER) (test qtqa=704) LYMPHOCYTES ABSOLUTE COUNT 1.18 K/ L 1.32-3.57 (BEAKER) (test tlnf=145) MONOCYTES ABSOLUTE COUNT 0.72 K/ L 0.30-0.82 (BEAKER) (test swtq=445) EOSINOPHILS ABSOLUTE COUNT 0.46 K/ L 0.04-0.54 (BEAKER) (test dreg=429) BASOPHILS ABSOLUTE COUNT 0.08 K/ L 0.01-0.08 (BEAKER) (test pryx=441) IMMATURE GRANULOCYTES-RELATIVE 0 % 0-1 PERCENT (BEAKER) (test edbf=1204) HEPATITIS C [id number] 21:49:00 Test Item Value Reference Range Comments HEPATITIS C ANTIBODY (BEAKER) (test qnox=846) Reactive Nonreactive HEPATITIS A ANTIBODY, [id number] 21:49:00 Test Item Value Reference Range Comments HEPATITIS A IGG ANTIBODY (BEAKER) (test mojy=9874) Reactive Nonreactive ALPHA FETOPROTEIN (AFP), TUMOR [id number] 21:48:00 Test Item Value Reference Range Comments ALPHA-FETOPROTEIN (BEAKER) (test houa=2575) 5.3 ng/mL <10.0 HEPATITIS B CORE ANTIBODY, [id number] 21:48:00 Test Item Value Reference Range Comments HEPATITIS B CORE TOTAL ANTIBODY (BEAKER) (test Nonreactive Nonreactive qlfh=354) [id number] 21:13:00 Test Item Value Reference Range Comments FERRITIN (BEAKER) (test tpcv=770) 17 ng/mL 5-275 [id number] 20:56:00 Test Item Value Reference Range Comments ALPHA-1 ANTITRYPSIN (BEAKER) 137.60 mg/dL 90.00-200.00 Specimen slightly hemolyzed (test tytk=486) IRON, TIBC, % SAT. (WITHOUT FERRITIN)2018-12-16 20:55:00 Test Item Value Reference Range Comments IRON (BEAKER) (test ahzj=526) 56.0 ug/dL 40.0-160.0 TOTAL IRON BINDING CAPACITY (BEAKER) (test 360 ug/dL 250-450 xmtr=623) IRON % SATURATION (2) (BEAKER) (test slcd=8449) 16 % 20-55 [id number] 20:52:00 Test Item Value Reference Range Comments ETHANOL (BEAKER) (test ctvw=670) < mg/dL <=10 HEMOGLOBIN AND [id number] 20:37:00 Test Item Value Reference Range Comments HEMOGLOBIN (BEAKER) (test qwfb=147) 9.2 GM/DL 13.7-17.5 HEMATOCRIT (BEAKER) (test bnfw=369) 32.6 % 40.1-51.0 U/S, ABDOMINAL, WITH [id number] 18:22:00Reason for exam:->liver cirrhosis, variceal bleed, please [...] MDReport Verified Date/Time: 12/16/2018 18:22:50 Reading Location: [place] [id number] Ultrasound Reading Room BASI METABOLIC [id number] 12:25:00 Test Item Value Reference Range Comments SODIUM (BEAKER) (test 135 meq/L 136-145 zgdg=099) POTASSIUM (BEAKER) (test 4.7 meq/L 3.5-5.1 zkoz=205) CHLORIDE (BEAKER) (test 105 meq/L 98-107 pihn=326) CO2 (BEAKER) (test 25 meq/L 22-29 tdhd=007) BLOOD UREA NITROGEN 16 mg/dL 7-21 (BEAKER) (test kffp=302) CREATININE (BEAKER) (test 1.01 mg/dL 0.57-1.25 vslk=123) GLUCOSE RANDOM (BEAKER) 162 mg/dL 70-105 (test qlop=737) CALCIUM (BEAKER) (test 8.1 mg/dL 8.4-10.2 xata=645) EGFR (BEAKER) (test 77 mL/min/1.73 sq m ESTIMATED GFR IS NOT wonh=1629) ACCURATE CREATININE CLEARANCE IN PREDICTING GLOMERULAR FILTRATION RATE. ESTIMATED GFR IS NOT APPLICABLE FOR DIALYSIS PATIENTS. HEMOGLOBIN AND [id number] 12:06:00 Test Item Value Reference Range Comments HEMOGLOBIN (BEAKER) (test mtvy=666) 8.6 GM/DL 13.7-17.5 HEMATOCRIT (BEAKER) (test lgjg=806) 31.4 % 40.1-51.0 HEMOGLOBIN AND [id number] 08:52:00 Test Item Value Reference Range Comments HEMOGLOBIN (BEAKER) (test cldg=796) 8.7 GM/DL 13.7-17.5 HEMATOCRIT (BEAKER) (test hmiq=490) 30.9 % 40.1-51.0 CALCIUM, [id number] 05:54:00 Test Item Value Reference Range Comments CALCIUM IONIZED (BEAKER) (test obza=010) 1.08 mmol/L 1.12-1.27 PH, BLOOD (BEAKER) (test zist=5623) 7.34 [id number] 05:50:00 Test Item Value Reference Range Comments PHOSPHORUS (BEAKER) (test sktt=853) 3.4 mg/dL 2.3-4.7 [id number] 05:50:00 Test Item Value Reference Range Comments MAGNESIUM (BEAKER) (test ngoi=050) 1.6 mg/dL 1.6-2.6 BASIC METABOLIC [id number] 05:50:00 Test Item Value Reference Range Comments SODIUM (BEAKER) (test 138 meq/L 136-145 jznz=057) POTASSIUM (BEAKER) (test 5.4 meq/L 3.5-5.1 lukw=961) CHLORIDE (BEAKER) (test 108 meq/L 98-107 ylca=133) CO2 (BEAKER) (test 22 meq/L 22-29 klht=710) BLOOD UREA NITROGEN 14 mg/dL 7-21 (BEAKER) (test ifpj=605) CREATININE (BEAKER) (test 1.00 mg/dL 0.57-1.25 luvy=981) GLUCOSE RANDOM (BEAKER) 144 mg/dL 70-105 (test nlmv=327) CALCIUM (BEAKER) (test 8.1 mg/dL 8.4-10.2 gxrj=674) EGFR (BEAKER) (test 78 mL/min/1.73 sq m ESTIMATED GFR IS NOT wgrx=3309) ACCURATE CREATININE CLEARANCE IN PREDICTING GLOMERULAR FILTRATION RATE. ESTIMATED GFR IS NOT APPLICABLE FOR DIALYSIS PATIENTS. CBC W/PLT COUNT & AUTO [id number] 05:44:00 Test Item Value Reference Range Comments WHITE BLOOD CELL COUNT 7.2 K/ L 3.5-10.5 (BEAKER) (test gvkk=976) RED BLOOD CELL COUNT (BEAKER) 4.48 M/ L 4.63-6.08 (test mfvc=366) HEMOGLOBIN (BEAKER) (test 8.7 GM/DL 13.7-17.5 gelc=726) HEMATOCRIT (BEAKER) (test 31.4 % 40.1-51.0 vwtw=504) MEAN CORPUSCULAR VOLUME 70.1 fL 79.0-92.2 (BEAKER) (test ehpj=169) MEAN CORPUSCULAR HEMOGLOBIN 19.4 pg 25.7-32.2 (BEAKER) (test wkhl=265) MEAN CORPUSCULAR HEMOGLOBIN 27.7 GM/DL 32.3-36.5 CONC (BEAKER) (test rtgs=014) RED CELL DISTRIBUTION WIDTH 21.0 % 11.6-14.4 (BEAKER) (test btio=195) PLATELET COUNT (BEAKER) (test 135 K/CU MM 150-450 sspw=922) MEAN PLATELET VOLUME (BEAKER) fL 9.4-12.4 Unable to report due to (test bkqo=859) abnormal Platelet population distribution. NUCLEATED RED BLOOD CELLS 0 /100 WBC 0-0 (BEAKER) (test tnbw=979) NEUTROPHILS RELATIVE PERCENT 72 % (BEAKER) (test kvzi=663) LYMPHOCYTES RELATIVE PERCENT 12 % (BEAKER) (test iulh=256) MONOCYTES RELATIVE PERCENT 11 % (BEAKER) (test quws=476) EOSINOPHILS RELATIVE PERCENT 4 % (BEAKER) (test oypu=557) BASOPHILS RELATIVE PERCENT 1 % (BEAKER) (test hmpa=251) NEUTROPHILS ABSOLUTE COUNT 5.15 K/ L 1.78-5.38 (BEAKER) (test woxw=057) LYMPHOCYTES ABSOLUTE COUNT 0.89 K/ L 1.32-3.57 (BEAKER) (test vtem=538) MONOCYTES ABSOLUTE COUNT 0.76 K/ L 0.30-0.82 (BEAKER) (test hgcw=752) EOSINOPHILS ABSOLUTE COUNT 0.29 K/ L 0.04-0.54 (BEAKER) (test fuau=439) BASOPHILS ABSOLUTE COUNT 0.06 K/ L 0.01-0.08 (BEAKER) (test wako=209) IMMATURE GRANULOCYTES-RELATIVE 0 % 0-1 PERCENT (BEAKER) (test hndh=9308) HEMOGLOBIN AND [id number] 00:02:00 Test Item Value Reference Range Comments HEMOGLOBIN (BEAKER) (test luvi=074) 7.8 GM/DL 13.7-17.5 HEMATOCRIT (BEAKER) (test czmx=822) 28.0 % 40.1-51.0 POCT-GLUCOSE [id number] 23:24:00 Test Item Value Reference Range Comments POC-GLUCOSE METER (BEAKER) 168 mg/dL 70-[address] [facility] [address] [facility] (test fxsg=5728) [facility] [address] RAD, CHEST, 1 VIEW, NON [id number] 23:07:00Reason for exam:->NG tube placementShould this be [...] MDReport Verified Date/Time: 12/15/2018 23:07:08 Reading Location: [address] Body Reading Room HEMOGLOBIN AND [id number] 20:12:00 Test Item Value Reference Range Comments HEMOGLOBIN (BEAKER) (test fkiw=239) 7.4 GM/DL 13.7-17.5 HEMATOCRIT (BEAKER) (test sdoq=202) 26.7 % 40.1-51.0 RAD, CHEST, 1 VIEW, NON [id number] 18:43:00Reason for exam:->s/p intubationShould this be performed [...] MDReport Verified Date/Time: 12/15/2018 18:43:24 Reading Location: [facility] C0X Ortho Consult Reading Room Electronically signed by: JORGE MTZ M.D. on 06:43 PMBASI METABOLIC [id number] 14:38:00 Test Item Value Reference Range Comments SODIUM (BEAKER) (test 137 meq/L 136-145 dpdo=275) POTASSIUM (BEAKER) (test 4.8 meq/L 3.5-5.1 Specimen slightly cych=813) hemolyzed CHLORIDE (BEAKER) (test 105 meq/L 98-107 mbsd=665) CO2 (BEAKER) (test 25 meq/L 22-29 nvkh=918) BLOOD UREA NITROGEN 11 mg/dL 7-21 (BEAKER) (test nskb=274) CREATININE (BEAKER) (test 0.84 mg/dL 0.57-1.25 Specimen slightly zuhy=237) hemolyzed GLUCOSE RANDOM (BEAKER) 114 mg/dL 70-105 (test rwtg=825) CALCIUM (BEAKER) (test 8.5 mg/dL 8.4-10.2 xqst=158) EGFR (BEAKER) (test 95 mL/min/1.73 sq m ESTIMATED GFR IS NOT yxvm=0498) ACCURATE CREATININE CLEARANCE IN PREDICTING GLOMERULAR FILTRATION RATE. ESTIMATED GFR IS NOT APPLICABLE FOR DIALYSIS PATIENTS. Specimen slightly ictericCOMPREHENSIVE METABOLIC [id number] 14:38:00 Test Item Value Reference Range Comments TOTAL PROTEIN (BEAKER) 7.2 gm/dL 6.0-8.3 Specimen slightly (test qzdd=269) hemolyzed ALBUMIN (BEAKER) (test 2.9 g/dL 3.5-5.0 Specimen slightly cxna=6191) hemolyzed ALKALINE PHOSPHATASE 125 U/L 40-150 (BEAKER) (test ilhw=285) BILIRUBIN TOTAL (BEAKER) 2.5 mg/dL 0.2-1.2 Specimen slightly (test wyqw=443) hemolyzed SODIUM (BEAKER) (test 137 meq/L 136-145 bhap=536) POTASSIUM (BEAKER) (test 4.8 meq/L 3.5-5.1 Specimen slightly yles=966) hemolyzed CHLORIDE (BEAKER) (test 105 meq/L 98-107 ppfj=615) CO2 (BEAKER) (test 25 meq/L 22-29 pocr=022) BLOOD UREA NITROGEN 11 mg/dL 7-21 (BEAKER) (test rxwt=275) CREATININE (BEAKER) (test 0.84 mg/dL 0.57-1.25 Specimen slightly ajgv=248) hemolyzed GLUCOSE RANDOM (BEAKER) 114 mg/dL 70-105 (test acei=660) CALCIUM (BEAKER) (test 8.5 mg/dL 8.4-10.2 jrol=263) AST (SGOT) (BEAKER) (test 56 U/L 5-34 Specimen slightly tkds=178) hemolyzed ALT (SGPT) (BEAKER) (test 21 U/L 6-55 Specimen slightly jsar=029) hemolyzed EGFR (BEAKER) (test 95 mL/min/1.73 sq m ESTIMATED GFR IS NOT xzkn=4041) ACCURATE CREATININE CLEARANCE IN PREDICTING GLOMERULAR FILTRATION RATE. ESTIMATED GFR IS NOT APPLICABLE FOR DIALYSIS PATIENTS. Specimen slightly ictericCBC (HEMOGRAM ONLY)2018-12-15 14:35:00 Test Item Value Reference Range Comments WHITE BLOOD CELL COUNT (BEAKER) (test mbtx=687) 5.6 K/ L 3.5-10.5 RED BLOOD CELL COUNT (BEAKER) (test mmfp=289) 4.43 M/ L 4.63-6.08 HEMOGLOBIN (BEAKER) (test xzvc=784) 8.5 GM/DL 13.7-17.5 HEMATOCRIT (BEAKER) (test dxus=330) 30.7 % 40.1-51.0 MEAN CORPUSCULAR VOLUME (BEAKER) (test yiom=958) 69.3 fL 79.0-92.2 MEAN CORPUSCULAR HEMOGLOBIN (BEAKER) (test 19.2 pg 25.7-32.2 uwww=419) MEAN CORPUSCULAR HEMOGLOBIN CONC (BEAKER) (test 27.7 GM/DL 32.3-36.5 wmgc=285) RED CELL DISTRIBUTION WIDTH (BEAKER) (test 20.9 % 11.6-14.4 ryxf=000) PLATELET COUNT (BEAKER) (test xywb=889) 150 K/CU MM 150-450 NUCLEATED RED BLOOD CELLS (BEAKER) (test 0 /100 WBC 0-0 zwdp=152) LACTIC ACID, [id number] 14:34:00 Test Item Value Reference Range Comments LACTATE BLOOD VENOUS (2) (BEAKER) (test 1.4 mmol/L 0.5-2.2 gsrz=1687) [id number] 14:34:00 Test Item Value Reference Range Comments FIBRINOGEN LEVEL (BEAKER) (test dppq=000) 164 mg/dl 225-434 PROTHROMBIN TIME/[id number] 14:29:00 Test Item Value Reference Range Comments PROTIME (BEAKER) (test dgjp=272) 17.0 seconds 11.7-14.7 INR (BEAKER) (test nrkm=504) 1.4 <=5.9 RECOMMENDED COUMADIN/WARFARIN INR THERAPY RANGESSTANDARD DOSE: 2.0 - 3.0 Includes: PROPHYLAXIS forvenous thrombosis, systemic embolization; TREATMENT for venous thrombosis and/or pulmonary embolus.HIGH RISK: Target INR is 2.5-3.5 for patients with mechanical heart valves.[id number] 14:29:00 Test Item Value Reference Range Comments PARTIAL THROMBOPLASTIN TIME (BEAKER) (test 35.0 seconds 22.5-36.0 cckm=210) [id number] 14:29:00 Test Item Value Reference Range Comments PARTIAL THROMBOPLASTIN TIME (BEAKER) (test 38.1 seconds 22.5-36.0 xlzg=960) PROTHROMBIN TIME/[id number] 14:28:00 Test Item Value Reference Range Comments PROTIME (BEAKER) (test vfpy=991) 15.4 seconds 11.7-14.7 INR (BEAKER) (test jctv=197) 1.2 <=5.9 RECOMMENDED COUMADIN/WARFARIN INR THERAPY RANGESSTANDARD DOSE: 2.0 - 3.0 Includes: PROPHYLAXIS forvenous thrombosis, systemic embolization; TREATMENT for venous thrombosis and/or pulmonary embolus.HIGH RISK: Target INR is 2.5-3.5 for patients with mechanical heart valves.HEMOGLOBIN AND [id number] 14 :21:00 Test Item Value Reference Range Comments HEMOGLOBIN (BEAKER) (test htdg=024) 8.5 GM/DL 13.7-17.5 HEMATOCRIT (BEAKER) (test snew=625) 30.7 % 40.1-51.0
--- OUTSIDE RECORDS SUMMARY | 2019-12-03 19:26 | XMS REPORT ---
[...] Assessment Coronary artery disease involving I25.10 Active [place] coronary artery of [place] heart, angina presence unspecified Assessment Subclinical hypothyroidism [...] Problem Coronary artery disease involving I25.10 Active [place] coronary artery of [place] heart, angina presence unspecified Problem Alcohol abuse [...] End Status Dosage System Date Date Lactulose [facility] 42594701715 20 GM/30ML December Active 15 ml Orally BID 2019 Rifaximin [facility] [address]-02 550 MG Orally December Active 1 tablet Twice a day 2019 Lisinopril ND 00215740819 5 MG Orally Once Active 1 tablet a day BD Ultra-Fine [facility] 90032725367 4mm x 32Gm Jun 30, Active 1 needle Shelby Pen [place] subcutaneously 2018 with once a day Tresiba pen Atorvastatin ND 82680779956 40 MG Orally Active 1 tablet Calcium Once a day Spironolactone ND 73989117851 50 MG Orally December Active 1 tablet Once a day , with food 2019 Pantoprazole [facility] 17222605969 40 MG Orally Active 1 tablet Sodium Once a day Lactulose [facility] 40465329949 10 GM/15ML Active TAKE 30ML BY MOUTH TWICE DAILY. Tresiba FlexTouch [facility] 41358323643 200 UNIT/ML Active inject 44 Subcutaneous units Once a day Propranolol HCl ND 45892001366 20 MG Orally Active 1 tablet Once a day on an empty stomach Aspir-81 [facility] 56353406255 81 MG Orally Active 1 tablet Once a day Lasix [facility] 16163886555 20 MG Orally Active 1 tablet Once a day Results No Known Results Summary Purpose eClinicalWorks Submission
--- OUTSIDE RECORDS SUMMARY | 2019-12-03 19:27 | XMS REPORT ---
:1965 Author Organization eClinicalWorks Care Team Providers Name Role Phone Saen Tima Provider Role Unavailable Allergies No Known [...] Problem Coronary artery disease involving I25.10 Active [place] coronary artery of [place] heart, angina presence unspecified Problem Alcohol abuse [...]
--- OUTSIDE RECORDS SUMMARY | 2019-12-03 19:27 | XMS REPORT ---
[...] Problem Coronary artery disease involving I25.10 Active [place] coronary artery of [place] heart, angina presence unspecified Problem Alcohol abuse [...]
--- OUTSIDE RECORDS SUMMARY | 2019-12-03 19:27 | XMS REPORT ---
:1965 Author Organization eClinicalWorks Care Team Providers Name Role Phone Carmelita Estradah Provider Role Unavailable Allergies, Adverse Reactions, Alerts Substance Reaction Event Type N.K.D.A. Info Not Available Non Drug Allergy Problems Problem Type Condition Code Onset Dates Condition Status Assessment Alcohol abuse counseling and Z71.41 Active surveillance Assessment Noncompliance of patient with Z91.11 Active dietary regimen Assessment Coronary artery disease involving I25.10 Active [place] coronary artery of [place] heart, angina presence unspecified Assessment Alcohol abuse F10.10 Active Assessment Subclinical hypothyroidism E03.9 Active Assessment Renal insufficiency N28.9 Active Assessment Type 2 diabetes mellitus with [...] Problem Coronary artery disease involving I25.10 Active [place] coronary artery of [place] heart, angina presence unspecified Problem Alcohol abuse F10.10 Active Problem Type 2 diabetes mellitus with other E11.29 Active diabetic kidney complication Assessment Encephalopathy, hepatic K72.90 Active Assessment Noncompliance w/medication treatment Z91.14 Active due to intermit use of medication Assessment Uncontrolled type 2 diabetes E11.65 Active mellitus with hyperglycemia Assessment Hepatocellular carcinoma C22.0 Active Problem Alcoholic cirrhosis of liver without K70.30 Active ascites Problem Liver lesion K76.9 Active Problem Mixed hyperlipidemia E78.2 Active Problem Secondary esophageal varices without I85.10 Active bleeding Medications Medication Code Code Instructions Start End Status Dosage System Date Date Atorvastatin [facility] [place] 13365235159 40 MG Orally Active 1 tablet Calcium Once a day Propranolol HCl [facility] [place] 04779224309 20 MG Orally Active 1 tablet Once a day on an empty stomach BD Ultra-Fine [facility] [place] 05093449921 4mm x 32Gm Jun 30, Active 1 needle Shelby Pen [place] subcutaneously 2018 with once a day Tresiba pen Lasix [facility] [place] 30179244859 20 MG Orally Active 1 tablet Once a day NovoLog Flexpen [facility] [place] 89584294965 100 UNIT/ML Nov 12, Active 12 units Subcutaneous 4 2019 before times a day meals and at bedtime Carvedilol [facility] [place] 38473040843 6.25 MG Orally Active 1 tablet Twice a day Aspir-81 [facility] [place] 04674408518 81 MG Orally Active 1 tablet Once a day Lisinopril [facility] [place] 47223524359 5 MG Orally Once Active 1 tablet a day Lactulose [facility] [place] 00404566571 20 GM/30ML Active 60 gm/90 Orally TID ml Pantoprazole [facility] [place] 68577935653 40 MG Orally Active 1 tablet Sodium Once a day Spironolactone [facility] [place] 34362964423 50 MG Orally Active 1 tablet Once a day with food Rifaximin [facility] [place] [address]-23 550 MG Orally Active 1 tablet Twice a day Thiamine HCl [facility] [place] 21613551836 100 MG Orally Active 1 tablet Once a day Novolin R [facility] [place] 24200030087 100 UNIT/ML Active INJECT UNDER THE SKIN DIRECTED BEFORE A MEAL AND AT BEDTIME. MAX 12 UNITS PER DAY Insulin Syringe [facility] [place] 49942540935 31G X 5/16" 0.3 November Active 1 needle ML , for subcutaneously 2019 insulin times a day Tresiba FlexTouch [facility] [place] 32599979903 200 UNIT/ML Active inject 30 Subcutaneous BID units Results No Known Results Summary Purpose eClinicalWorks Submission
--- OUTSIDE RECORDS SUMMARY | 2019-12-03 19:27 | XMS REPORT ---
[...] Problem Coronary artery disease involving I25.10 Active [place] coronary artery of [place] heart, angina presence unspecified Problem Alcohol abuse [...]
--- OUTSIDE RECORDS SUMMARY | 2019-12-03 19:27 | XMS REPORT ---
[...] Problem Coronary artery disease involving I25.10 Active [place] coronary artery of [place] heart, angina presence unspecified Problem Alcohol abuse F10.10 Active Problem Type 2 diabetes mellitus with other E11.29 Active diabetic kidney complication Assessment Alcoholic cirrhosis, unspecified K70.30 Active whether ascites present Problem Alcoholic cirrhosis of liver without K70.30 Active ascites Problem Liver lesion K76.9 Active Problem Mixed hyperlipidemia E78.2 Active Problem Uncontrolled type 2 diabetes E11.65 Active mellitus with hyperglycemia Problem Secondary esophageal varices without I85.10 Active bleeding Problem HTN, goal below 130/80 I10 Active Medications Medication Code Code Instructions Start End Date Status Dosage System Date Lactulose [facility] 73559730234 20 GM/30ML November Active 60 gm/90 Orally TID 2019 ml NovoLog ND 67493459032 100 UNIT/ML Nov 12 12 units Flexpen Subcutaneous 2019 before times a day meals and at bedtime Results No Known Results Summary Purpose eClinicalWorks Submission
--- OUTSIDE RECORDS SUMMARY | 2019-12-03 19:27 | XMS REPORT ---
[...] Problem Coronary artery disease involving I25.10 Active [place] coronary artery of [place] heart, angina presence unspecified Problem Alcohol abuse [...]
--- OUTSIDE RECORDS SUMMARY | 2019-12-03 19:27 | XMS REPORT ---
[...] Problem Coronary artery disease involving I25.10 Active [place] coronary artery of [place] heart, angina presence unspecified Problem Alcohol abuse [...] below 130/80 I10 Active Medications Medication Code System Code Instructions Start Date End Date Status Dosage Lactulose [facility] 25254705090 20 GM/30ML Orally Active 80 ml three times a day Results No Known Results Summary Purpose eClinicalWorks Submission
--- OUTSIDE RECORDS SUMMARY | 2019-12-03 19:27 | XMS REPORT ---
[...] Problem Coronary artery disease involving I25.10 Active [place] coronary artery of [place] heart, angina presence unspecified Problem Alcohol abuse [...]
--- OUTSIDE RECORDS SUMMARY | 2019-12-03 19:27 | XMS REPORT ---
:1965 Author Organization eClinicalWorks Care Team Providers Name Role Phone [facility] Provider Role Unavailable Allergies, Adverse Reactions, Alerts [...] Problem Coronary artery disease involving I25.10 Active [place] coronary artery of [place] heart, angina presence unspecified Problem Alcohol abuse F10.10 Active Problem Type 2 diabetes mellitus with other E11.29 Active diabetic kidney complication Assessment Encephalopathy, hepatic K72.90 Active Assessment Hepatocellular carcinoma C22.0 Active Problem Alcoholic cirrhosis of liver without K70.30 Active ascites Problem Liver lesion K76.9 Active Problem Mixed hyperlipidemia E78.2 Active Problem Uncontrolled type 2 diabetes E11.65 Active mellitus with hyperglycemia Problem Secondary esophageal varices without I85.10 Active bleeding Problem HTN, goal below 130/80 I10 Active Medications Medication Code Code Instructions Start End Status Dosage System Date Date BD Ultra-Fine [facility] 90631981960 4mm x 32Gm Jun 30, Active 1 needle Shelby Pen [place] subcutaneously 2018 with once a day Tresiba pen Lactulose ND 27528941005 10 GM/15ML Active TAKE 30ML BY MOUTH TWICE DAILY. Lasix ND 70487883117 20 MG Orally Active 1 tablet Once a day Lactulose ND 76240154773 20 GM/30ML December Active 15 ml Orally BID 2019 Spironolactone ND 68329864081 50 MG Orally December Active 1 tablet Once a day , with food 2019 Carvedilol ND 45847291391 6.25 MG Orally Active 1 tablet Twice a day Atorvastatin ND 17129416667 40 MG Orally Active 1 tablet Calcium Once a day Aspir-81 [facility] 17331946028 81 MG Orally Active 1 tablet Once a day Tresiba FlexTouch [facility] 92600572162 200 UNIT/ML Active inject 44 Subcutaneous units Once a day Rifaximin [facility] [address]-93 550 MG Orally December Active 1 tablet Twice a day 2019 Pantoprazole [facility] 69772627977 40 MG Orally Active 1 tablet Sodium Once a day Lisinopril [facility] 95866642773 5 MG Orally Once Active 1 tablet a day Results No Known Results Summary Purpose eClinicalWorks Submission
--- OUTSIDE RECORDS SUMMARY | 2019-12-03 19:27 | XMS REPORT ---
[...] Problem Coronary artery disease involving I25.10 Active [place] coronary artery of [place] heart, angina presence unspecified Problem Alcohol abuse [...]
--- OUTSIDE RECORDS SUMMARY | 2019-12-03 19:27 | XMS REPORT ---
[...] Assessment Coronary artery disease involving I25.10 Active [place] coronary artery of [place] heart, angina presence unspecified Assessment Subclinical hypothyroidism [...] Problem Coronary artery disease involving I25.10 Active [place] coronary artery of [place] heart, angina presence unspecified Problem Alcohol abuse [...] Start End Status Dosage System Date Date [facility] 16611453093 81 MG Orally Active 1 tablet Once a day BD Ultra-Fine [facility] 39854904507 4mm x 32Gm Jun 30, Active 1 needle Shelby Pen [place] subcutaneously 2018 with once a day Tresiba pen Lactulose [facility] 54874384664 20 GM/30ML January Active 60 gm/90 Orally TID 11, ml 2019 Lisinopril [facility] 34035676941 5 MG Orally Once Active 1 tablet a day Rifaximin [facility] [address]-11 550 MG Orally Active 1 tablet Twice a day Carvedilol [facility] 89619277863 6.25 MG Orally Active 1 tablet Twice a day Spironolactone [facility] 64150651994 50 MG Orally Active 1 tablet Once a day with food Tresiba FlexTouch [facility] 64881673760 200 UNIT/ML Active inject 30 Subcutaneous BID units Thiamine HCl [facility] 17422989341 100 MG Orally Active 1 tablet Once a day Propranolol HCl [facility] 22116195187 20 MG Orally Active 1 tablet Once a day on an empty stomach Atorvastatin [facility] 43238873597 40 MG Orally Active 1 tablet Calcium Once a day Lasix [facility] 33722898184 20 MG Orally Active 1 tablet Once a day Pantoprazole [facility] 97792220777 40 MG Orally Active 1 tablet Sodium Once a day Results No Known Results Summary Purpose eClinicalWorks Submission
[2019-12-03] MEDS ORDERED: ONDANSETRON 4 MG/2 ML VIAL ONE ×2 (19:43→21:13)
[2019-12-03 19:58] LABS: Absolute Lymphocytes (CBC) 2.1 K/uL (0.7-4.9); Basophils % 0.9 % (0-1.3); Hematocrit 27.4 % (39.6-49.0); Lymphocytes % 26.7 % (15.3-44.8); MPV 8.8 fL (7.6-11.3)
--- NOTE | 2019-12-03 20:02 | RAD REPORT ---
EXAM DESCRIPTION: CT - Head Brain Wo Cont - 12/03/2019 7:51 pm CLINICAL HISTORY: Alteration of awareness/ unresponsive COMPARISON: October 2019 TECHNIQUE: Computed axial tomography of the head was obtained. IV contrast was not requested. All CT scans are performed using dose optimization technique as appropriate and may include automated exposure control or mA/KV adjustment according to patient size. FINDINGS: An intracranial bleed is not seen . The ventricles are normal in caliber. No extra-axial fluid collection is noted. Mild to moderate low-density areas within periventricular, deep and subcortical white matter likely r epresent ischemic changes secondary to small vessel disease. Fluid within the sinuses/ mastoids is not seen. IMPRESSION: No acute intracranial abnormality is seen. If patient's symptoms persist MRI of the bra in would be recommended.
[2019-12-03 20:03] LABS: Protime INR 1.1
[2019-12-03 20:09] LABS: Arterial Blood Carboxyhemoglob 1.9 % (0-1.5); Blood Gas Oxyhemoglobin 94.9 % (94-97)
[2019-12-03 20:18] LABS: Anisocytosis 2+; Blood Morphology Comment NOTED (NOT SEEN); Platelet Estimate DECR; Urine White Blood Cell Casts OK
[2019-12-03 20:20] LABS: Albumin 2.9 g/dL (3.4-5.0); Bilirubin Direct 0.2 mg/dL (0-0.2); Bilirubin Total 0.5 mg/dL (0.2-1.0); Magnesium 1.9 mg/dL (1.8-2.4); Potassium 3.7 mmol/L (3.5-5.1); Protein, Total 6.9 g/dL (6.4-8.2); Troponin (Emerg Dept Use Only) 0.04 ng/mL (0.0-0.045)
[2019-12-03] MEDS ORDERED: PANTOPRAZOLE 40 MG INJ ONE (20:33)
[2019-12-03] MEDS ORDERED: THIAMINE 200 MG/2 ML INJ ONE (20:33)
[2019-12-03] MEDS ORDERED: FOLIC ACID 5 MG/ML VIAL ONE (20:36)
[2019-12-03] MEDS ORDERED: NA CHLORIDE 0.9% 50 ML IV ONE (20:41)
--- NOTE | 2019-12-03 21:19 | RAD REPORT ---
EXAM DESCRIPTION: Stephon Single View12/03/2019 8:44 pm CLINICAL HISTORY: sob COMPARISON: September 2019 FINDINGS: The lungs appear clear of acute infiltrate. The heart is normal size IMPRESSION: No acute abnormalities displayed
[2019-12-03] MEDS ORDERED: NA CHLORIDE 0.9% 1,000 ML ONE (21:24)
--- NOTE | 2019-12-03 21:53 | ER ---
Nurse's Notes [facility] Name: Janusz Morris Jr Age: 54 yrs Sex: Male : 1965 Arrival Date: 12/03/2019 Time: 19:29 Bed 2 Private MD: Diagnosis: Alcohol abuse with intoxication;Encephalopathy, unspecified-hepatic;Anemia in chronic diseases classified elsewhere;Syncope and collapse Presentation: 12/02 19:18 Chief complaint: EMS states: Family called EMS after patient and family went for a lp1 walk, states patient sat on couch and went unresponsive; Patient responding with EMS on arrival to scene; Family states giving patient Novolog 7 units SQ about 30 min ago. 19:18 Coronavirus screen: The patient has NOT traveled to a country currently being monitored lp1 by the [facility] within the last 14 days. The patient has NOT had contact with any known and/or suspected case of coronavirus. Ebola Screen: No symptoms or risks identified at this time. 19:18 Method Of Arrival: EMS: [facility] lp1 19:18 Initial Sepsis Screen: Does the patient meet any 2 criteria? No. Patient's initial lp1 sepsis screen is negative. Does the patient have a suspected source of infection? No. Patient's initial sepsis screen is negative. Risk Assessment: Do you want to hurt yourself or someone else? Unable to obtain. 19:18 Acuity: AJ 2 lp1 Historical: - Allergies: 20:16 No Known Allergies; lp1 - Home Meds: 20:14 atorvastatin 40 mg Oral tab 1 tab once daily [Active]; carvedilol 6.25 mg Oral tab 2 lp1 times per day [Active]; furosemide 20 mg Oral tab 1 tab once daily [Active]; lactulose 10 gram/15 mL Oral soln 60 mL 3 times per day [Active]; lisinopril 5 mg Oral tab 1 tab once daily [Active]; pantoprazole 40 mg Oral TbEC 1 tab 2 times per day [Active]; spironolactone 50 mg Oral tab 1 tab once daily [Active]; - PMHx: 20:14 Alcoholism; Cirrhosis; Diabetes - NIDDM; esophageal varices; GI Bleed; Hypertension; lp1 - Immunization history:: Adult Immunizations up to date. - Social history:: Smoking status: Patient denies any tobacco usage or history of. Screenin:40 Abuse screen: Denies threats or abuse. Denies injuries from another. Nutritional lp1 screening: No deficits noted. Tuberculosis screening: No symptoms or risk factors identified. Fall Risk Total Castellano Fall Scale indicates High Risk Score (45 or more points). Fall prevention measures have been instituted. Side Rails Up X 2 Frequent Obs/Assessments Occuring As available patient and family educated on Fall Prevention Program and Strategies. Assessment: 19:30 Reassessment: Patient only responding to painful stimuli at this time; Dr. Lindsey and lp1 SONYA Abreu at bedside to assess patient. 19:35 Reassessment: Patient vomiting at this time, food particles noted, sitting up at 90 lp1 degrees; Verbal order from Dr. Lindsey for Zofran 4 mg IV now. 19:55 Reassessment: Patient awake, making derogatory statements towards nurse. General: lp1 Smells of alcohol. 19:55 General: Appears in no apparent distress. Behavior is drowsy, Smells of alcohol. Pain: ah Denies pain. Neuro: Level of Consciousness is confused, Oriented to person, Machine Chocolate Molder are equal bilaterally. Cardiovascular: Heart tones S1 S2 present Capillary refill < 3 seconds Patient's skin is warm and dry. Pulses are palpable in right radial artery and left radial artery. Respiratory: Airway is patent Respiratory effort is even, unlabored, Respiratory pattern is regular, symmetrical, Breath sounds are clear bilaterally. GI: Bowel sounds present X 4 quads. Abd is non tender. : No signs and/or symptoms were reported regarding the genitourinary system. EENT: No deficits noted. Derm: Skin is intact, Skin is dry, Skin is pale. 20:00 Reassessment: Patient actively vomiting, sitting upright at 90 degrees, food particles lp1 noted. 20:00 General: Behavior is drowsy. Neuro: Level of Consciousness is awake, Oriented to lp1 person, place. 21:00 Reassessment: Patient appears in no apparent distress at this time. Patient and/or ah family updated on plan of care and expected duration. Pain level reassessed. Patient is alert, oriented x 3, equal unlabored respirations, skin warm/dry/pink. 22:00 Reassessment: Per Dr. Lindsey, no need for gomez catheter. lp1 12/03 00:00 Reassessment: Patient appears in no apparent distress at this time. Patient and/or ah family updated on plan of care and expected duration. Pain level reassessed. Patient is alert, oriented x 3, equal unlabored respirations, skin warm/dry/pink. Pt resting at this time with eyes closed and resp even and unlabored. No needs voiced at this time. 01:20 Reassessment: Patient appears in no apparent distress at this time. Patient and/or ah family updated on plan of care and expected duration. Pain level reassessed. Patient is alert, oriented x 3, equal unlabored respirations, skin warm/dry/pink. gave Pt extra blanket at this time. No needs voiced. Room not available at this time. Family at bedside. 01:29 Reassessment:. Vital Signs: 12/02 19:25 BP 123 / 70; Pulse 64; Resp 13; Pulse Ox 100% on R/A; lp1 19:30 BP 111 / 69; Pulse 64; Resp 14; Pulse Ox 100% ; 20:13 Weight 78.02 kg (R); Height 5 ft. 6 in. (167.64 cm) (R); lp1 20:40 BP 134 / 67 LA; 20:40 BP 134 / 67; Pulse 59; Resp 18; Pulse Ox 100% ; 20:53 BP 103 / 51 RA; 21:40 BP 128 / 73; Pulse 62; Resp 20; Pulse Ox 100% ; 22:24 BP 106 / 87; Pulse 70; Resp 16; Pulse Ox 100% ; 23:20 BP 106 / 60; Pulse 63; Resp 15; Pulse Ox 100% ; 12/03 00:20 BP 113 / 61; Pulse 60; Resp 12; Pulse Ox 100% ; 01:20 BP 118 / 69; Pulse 59; Resp 13; Pulse Ox 99% ; 12/02 20:13 Body Mass Index 27.76 (78.02 kg, 167.64 cm) 1 ED Course: 12/02 19:29 Patient arrived in ED. bb 19:30 Arm band placed on right wrist. lp1 19:30 Patient has correct armband on for positive identification. Placed in gown. Bed in low lp1 position. Side rails up X2. engine monitor on. Pulse ox on. NIBP on. 19:30 Inserted saline lock: 18 gauge in left EJ, using aseptic technique. Blood collected. By lp1 Dr. Lindsey. 19:30 First set of blood cultures drawn by physician. lp1 19:34 [facility]. cp 19:34 Jorge Lindsey MD is Attending Physician. cp 19:38 Macarena Gallo, RN is Primary Nurse. 19:[address] with nurses. lp1 19:52 CT Head Brain wo Cont In Process Unspecified. EDMS 20:00 Maintain EMS IV. Dressing intact. Site clean \T\ dry. Gauge \T\ site: 20g to right hand. lp 1 20:13 Triage completed. lp1 20:48 XRAY Chest (1 view) In Process Unspecified. EDMS 21:51 Fei Jeffers MD is Hospitalizing Provider. cp 21:52 Patient's son Tacos Morris phone number [phone]. mw2 22:20 Straight cath inserted, using sterile technique, 16 Fr. Specimen obtained. Returned ds4 cloudy urine. Patient tolerated well. 22:33 Urine Microscopic Only Sent. 4 22:34 Troponin I: repeat Sent. [facility] 03 01:00 No provider procedures requiring assistance completed. Patient admitted, IV remains in place. Administered Medications: 12/02 19:45 Drug: Zofran (Ondansetron) 4 mg Route: IVP; Site: Other; 12/03 01:31 Follow up: Response: No adverse reaction; Nausea is decreased 12/02 20:40 Drug: ProTONIX 40 mg Route: IVP; Site: right hand; 12/03 01:30 Follow up: Response: No adverse reaction 12/02 20:45 Drug: Thiamine 100 mg Route: IV; Rate: bolus; Site: right wrist; 21:00 Follow up: Response: No adverse reaction; IV Status: Completed infusion 20:45 Drug: foLIC Acid 1 mg Route: IVPB; Site: right wrist; 21:00 Follow up: IV Status: Completed infusion 21:00 Follow up: IV Status: Completed infusion 21:28 Drug: NS 0.9% (30 ml/kg) 30 ml/kg Route: IV; Rate: bolus; Site: right hand; 12/03 07:37 Follow up: IV Status: Completed infusion; IV Intake: 2340ml 12/02 22:14 Drug: Lactulose 20 grams Volume: 30 ml; Route: PO; 12/03 01:30 Follow up: Response: No adverse reaction Intake: 12/02 22:45 IV: 1000ml (IV Fluid); Total: 1000ml. 22:45 IV: 1000ml (IV Fluid); Total: 2000ml. 12/03 07:37 IV: 2340ml; Total: 4340ml. 12/02 22:45 NS fluid per EMS 22:45 NS given per ED ah Outcome: 21:52 Decision to Hospitalize by Provider. 12/03 01:07 Admitted to ER Hold. Please see [facility] for further documentation. 01:07 Condition: stable 09:54 Patient left the ED. Signatures: Dispatcher [employer] EDFanta Crews RN RN Anupama Smith, RN RN lp1 Hair Quick ds4 Jorge Llanos PA PA cp Baxter, Heather, RN RN Tho Wyatt mw2 Macarena Gallo RN RN Garrett Delgado 4
--- NOTE | 2019-12-03 21:54 | EDPHYS ---
Physician Documentation [facility] Name: Janusz Morris Jr Age: 54 yrs Sex: Male : 1965 Arrival Date: 12/03/2019 Time: 19:29 Bed 2 Private MD: ED Physician Jorge Lindsey HPI: 12/02 19:45 This 54 yrs old Male presents to ER via EMS with complaints of Unresponsive. cp 19:45 The patient's problem is reported as altered mental status, unresponsive, to verbal cp stimuli, to tactile stimuli, responds to to painful stimuli. Onset: The symptoms/episode began/occurred today. Duration: The episodes are intermittent. Context: the episode(s) was witnessed, by family, after returning from walk this evening, occurred at home, Possible contributing factors include: Patient is a know diabetic. Severity of symptoms: in the emergency department the symptoms are unchanged patient was alert and responsive when EMS arrived, but while in ED patient became unresponsive. 19:45 Patient's baseline: Neuro: alert and fully oriented, Motor: no deficits, Ambulation: cp walks without assistance, Speech: normal. Historical: - Allergies: 20:16 No Known Allergies; lp1 - Home Meds: 20:14 atorvastatin 40 mg Oral tab 1 tab once daily [Active]; carvedilol 6.25 mg Oral tab 2 lp1 times per day [Active]; furosemide 20 mg Oral tab 1 tab once daily [Active]; lactulose 10 gram/15 mL Oral soln 60 mL 3 times per day [Active]; lisinopril 5 mg Oral tab 1 tab once daily [Active]; pantoprazole 40 mg Oral TbEC 1 tab 2 times per day [Active]; spironolactone 50 mg Oral tab 1 tab once daily [Active]; - PMHx: 20:14 Alcoholism; Cirrhosis; Diabetes - NIDDM; esophageal varices; GI Bleed; Hypertension; lp1 - Immunization history:: Adult Immunizations up to date. - Social history:: Smoking status: Patient denies any tobacco usage or history of. ROS: 19:50 Constitutional: Negative for fever. cp 19:50 Neuro: Positive for altered mental status. cp 19:50 Unable to obtain ROS due to altered mental status. Exam: 19:40 ECG was reviewed by the Attending Physician. cp 19:50 Constitutional: The patient appears non-diaphoretic, non-toxic, well developed, well cp nourished. 19:50 Head/Face: Normocephalic, atraumatic. cp 19:50 Eyes: Periorbital structures: appear normal, Pupils: equal, round, and reactive to light and accomodation, Conjunctiva: normal, no exudate, no injection, Sclera: no appreciated abnormality, Lids and lashes: appear normal, bilaterally. 19:50 ENT: External ear(s): are unremarkable, Ear canal(s): are normal, clear, TM's: dullness, bilaterally, Nose: is normal, Mouth: Lips: moist, Oral mucosa: pink and intact, moist, Posterior pharynx: Airway: no evidence of obstruction, patent, erythema, is not appreciated. 19:50 Neck: External neck: tenderness, is not appreciated, C-spine: vertebral tenderness, is not appreciated, crepitus, is not appreciated. 19:50 Chest/axilla: Inspection: normal, Palpation: is normal, no crepitus, no tenderness. 19:50 Cardiovascular: Rate: normal, Rhythm: regular, Edema: is not appreciated, JVD: is not appreciated. 19:50 Respiratory: the patient does not display signs of respiratory distress, Respirations: normal, no use of accessory muscles, no retractions, labored breathing, is not present, Breath sounds: are clear throughout, no decreased breath sounds, no stridor, no wheezing. 19:50 Abdomen/GI: Inspection: abdomen appears normal, Bowel sounds: active, all quadrants, Palpation: soft, in all quadrants, nontender, in all quadrants, involuntary guarding, is not appreciated. 19:50 Skin: no rash present. 19:50 Neuro: Orientation: unable to test, patient altered, Mentation: somnolent. 21:00 Radiologist reports: no acute findings cp Vital Signs: 19:25 BP 123 / 70; Pulse 64; Resp 13; Pulse Ox 100% on R/A; lp1 19:30 BP 111 / 69; Pulse 64; Resp 14; Pulse Ox 100% ; ah 20:13 Weight 78.02 kg (R); Height 5 ft. 6 in. (167.64 cm) (R); lp1 20:40 BP 134 / 67 LA; ah 20:40 BP 134 / 67; Pulse 59; Resp 18; Pulse Ox 100% ; 20:53 BP 103 / 51 RA; ah 21:40 BP 128 / 73; Pulse 62; Resp 20; Pulse Ox 100% ; ah 22:24 BP 106 / 87; Pulse 70; Resp 16; Pulse Ox 100% ; ah 23:20 BP 106 / 60; Pulse 63; Resp 15; Pulse Ox 100% ; 12/03 00:20 BP 113 / 61; Pulse 60; Resp 12; Pulse Ox 100% ; 01:20 BP 118 / 69; Pulse 59; Resp 13; Pulse Ox 99% ; 12/02 20:13 Body Mass Index 27.76 (78.02 kg, 167.64 cm) lp1 MDM: 12/02 19:33 Patient medically screened. [facility] 20:00 Differential diagnosis: CVA, TIA, metabolic disorder, drug effects, ETOH intoxication, cp encephalitis. 21:40 Data reviewed: vital signs, nurses notes, lab test result(s), EKG, radiologic studies, cp CT scan, plain films, I have discussed the patient's presentation/case with the attending Emergency Department Physician;. 21:40 Test interpretation: by ED physician or midlevel provider: ECG, plain radiologic cp studies, chest xray negative for infiltrates. Response to treatment: the patient's symptoms have markedly improved after treatment, and as a result, I will admit patient. 22:00 Physician consultation: Fei Jeffers MD was contacted at 21:45, regarding admission, cp to the telemetry unit. patient's condition. 12/02 19:36 Order name: AMMONIA cp 12/02 19:36 Order name: Blood Culture Adult (2) 12/02 19:36 Order name: Basic Metabolic Panel 12/02 19:36 Order name: CBC with Diff cp 12/02 19:36 Order name: LFT's; Complete Time: 20:59 cp 12/02 20:59 Interpretation: Normal except: AST 64; ALK 168; ALB 2.9; GLOB 4.0; A/G 0.7. 12/02 19:36 Order name: Magnesium; Complete Time: 20:59 cp 12/02 21:37 Interpretation: Within normal limits: MG 1.9. cp 12/02 19:36 Order name: NT PRO-BNP; Complete Time: 20:59 cp 12/02 21:02 Interpretation: Abnormal: NT PRO-BNP 160. cp 12/02 19:36 Order name: PT-INR; Complete Time: 20:08 12/02 20:08 Interpretation: Abnormal: PT 12.9. 12/02 19:36 Order name: Troponin (emerg Dept Use Only); Complete Time: 20:59 12/02 21:14 Interpretation: Within normal limits: TROPED 0.04. 12/02 19:36 Order name: Lactate; Complete Time: 20:59 12/02 21:00 Interpretation: Abnormal: LAC 4.0. 12/02 19:36 Order name: Procalcitonin; Complete Time: 21:05 12/02 19:36 Order name: Urine Microscopic Only; Complete Time: 19:01 12/02 19:36 Order name: ABG; Complete Time: 20:59 12/02 19:38 Order name: Ammonia; Complete Time: 20:59 EDMS 12/02 21:02 Interpretation: Abnormal: KELLIE 67. 12/02 19:38 Order name: Blood Culture EDME 12/02 19:38 Order name: Basic Metabolic Panel; Complete Time: 20:59 EDMS 12/02 21:03 Interpretation: Normal except: CL 110; CO2 17; GLUC 171; CRE 1.70; GFR 42; CA 7.6. 12/02 19:38 Order name: CBC with Automated Diff; Complete Time: 20:59 EDMS 12/02 20:07 Interpretation: Normal except: WBC 7.8; RBC 3.80; HGB 8.4; HCT 27.4; MCV 72.0; MCH cp 22.2; MCHC 30.8; PLT 130; RDW 22.7. 12/02 20:04 Order name: ETOH Level 12/02 20:05 Order name: Alcohol Serum/Plasma; Complete Time: 21:36 EDMS 12/02 21:36 Interpretation: Abnormal: ETOH 272. 12/02 20:11 Order name: Type And Screen; Complete Time: 21:36 12/02 20:16 Order name: Glucose, Ancillary Testing; Complete Time: 20:59 EDMS 12/02 20:18 Order name: CBC Smear Scan; Complete Time: 20:59 EDMS 12/02 21:15 Order name: Troponin I: repeat; Complete Time: 19:01 03/11 22:11 Order name: Glucose, Ancillary Testing; Complete Time: 19:01 [facility] 12/02 22:31 Order name: Urine Dipstick--Ancillary (enter results); Complete Time: 19:01 2 12/02 22:58 Order name: CBC with Automated Diff EDME 12/02 22:58 Order name: CBC with Automated Diff; Complete Time: 19:01 EDME 12/02 22:58 Order name: Comprehensive Metabolic Panel EDME 12/02 22:58 Order name: Comprehensive Metabolic Panel; Complete Time: 19:01 [facility] 12/02 22:58 Order name: Protime (+INR) EDME 12/02 19:36 Order name: EKG; Complete Time: 19:38 cp 12/02 19:36 Order name: Cardiac monitoring; Complete Time: 20:23 cp 12/02 19:36 Order name: EKG - Nurse/Tech; Complete Time: 20:23 cp 12/02 19:36 Order name: IV Saline Lock; Complete Time: 20:23 12/02 19:36 Order name: Labs collected and sent; Complete Time: 20:23 12/02 19:36 Order name: O2 Per Protocol; Complete Time: 20:23 cp 12/02 19:36 Order name: O2 Sat Monitoring; Complete Time: 20:23 cp 12/02 19:36 Order name: Urine Dipstick-Ancillary (obtain specimen); Complete Time: 22:27 cp 12/02 19:36 Order name: XRAY Chest (1 view); Complete Time: 21:36 12/02 21:36 Interpretation: Report review. 12/02 19:42 Order name: CT Head Brain wo Cont; Complete Time: 20:59 12/02 21:04 Interpretation: Report reviewed. 12/02 20:04 Order name: Blood Pressure Recheck: bilateral upper extremity; Complete Time: 20:52 cp 12/02 21:45 Order name: Accucheck Blood Glucose; Complete Time: 22:14 cp 12/02 22:58 Order name: CONS Pharmacy Consult EDME 12/02 22:58 Order name: Regular [facility] 12/02 22:58 Order name: Protime (+INR); Complete Time: 19:01 [facility] 12/02 22:58 Order name: PTT, Activated Partial Thromb EDME 12/02 22:58 Order name: PTT, Activated Partial Thromb; Complete Time: 19: EDME 12/03 00:16 Order name: Lactate Sepsis 2 HR Follow-up; Complete Time: : EDME EC:40 Rate is 68 beats/min. Rhythm is regular. IA interval is normal. QRS interval is normal. QT interval is normal. T waves are Flattened in lead aVL. Interpreted by me. Reviewed by me. Administered Medications: 19:45 Drug: Zofran (Ondansetron) 4 mg Route: IVP; Site: Other; 12/03 01:31 Follow up: Response: No adverse reaction; Nausea is decreased 12/02 20:40 Drug: ProTONIX 40 mg Route: IVP; Site: right hand; 12/03 01:30 Follow up: Response: No adverse reaction 12/02 20:45 Drug: Thiamine 100 mg Route: IV; Rate: bolus; Site: right wrist; 21:00 Follow up: Response: No adverse reaction; IV Status: Completed infusion 20:45 Drug: foLIC Acid 1 mg Route: IVPB; Site: right wrist; 21:00 Follow up: IV Status: Completed infusion 21:00 Follow up: IV Status: Completed infusion 21:28 Drug: NS 0.9% (30 ml/kg) 30 ml/kg Route: IV; Rate: bolus; Site: right hand; 12/03 07:37 Follow up: IV Status: Completed infusion; IV Intake: 2340ml 12/02 22:14 Drug: Lactulose 20 grams Volume: 30 ml; Route: PO; 12/03 01:30 Follow up: Response: No adverse reaction Disposition: 12/02 22:15 Chart complete. 12/03 11:59 Co-signature as Attending Physician, Jorge Lindsey MD I agree with the assessment and [facility] plan of care. Disposition: 12/03/19 21:52 Hospitalization ordered by Fei Jeffers for Inpatient Admission. Preliminary diagnosis are Alcohol abuse with intoxication, Encephalopathy, unspecified - hepatic, Anemia in chronic diseases classified elsewhere, Syncope and collapse. - Bed requested for Telemetry/MedSurg (Inpatient). - Status is Inpatient Admission. hb - Condition is Stable. - Problem is new. - Symptoms have improved. Signatures: Dispatcher [employer] [facility] Sagrario Luna Corey, MD MD cha Pena, Laura RN RN lp1 Jorge Llanos PA PA cp [place], JADA ELIAS hb Tho Wyatt mw2 Macarena Gallo RN RN Corrections: (The following items were deleted from the chart) 12/02 19:46 19:37 Head C Spine Cap Wo Con+CT.RAD.BRZ ordered. EDMS EDMS 21:03 21:02 Normal except: CL 110; CO2 17; GLUC 171; CRE 1.70; GFR 42. cp cp 22:33 19:36 Sol ordered. cp lp1 12/03 01:07 12/02 21:52 Hospitalization Ordered by Fei Jeffers MD for Observation. Preliminary mw2 diagnosis is Alcohol abuse with intoxication; Encephalopathy, unspecified - hepatic; Anemia in chronic diseases classified elsewhere; Syncope and collapse. Bed requested for Telemetry/MedSurg (observation). Status is Observation. Condition is Stable. Problem is new. Symptoms have improved. cp 12/03 06:59 01:07 12/03/2019 21:52 Hospitalization Ordered by Fei Jeffers MD for Observation. [facility] Preliminary diagnosis is Alcohol abuse with intoxication; Encephalopathy, unspecified - hepatic; Anemia in chronic diseases classified elsewhere; Syncope and collapse. Bed requested for [facility] ER HOLD. Status is Observation. Condition is Stable. Problem is new. Symptoms have improved. mw2 09:04 06:59 12/03/2019 21:52 Hospitalization Ordered by Fei Jeffers MD for Inpatient bd Admission. Preliminary diagnosis is Alcohol abuse with intoxication; Encephalopathy, unspecified - hepatic; Anemia in chronic diseases classified elsewhere; Syncope and collapse. Bed requested for [facility] ER HOLD. Status is Inpatient Admission. Condition is Stable. Problem is new. Symptoms have improved. amanuel 09:54 09:04 12/03/2019 21:52 Hospitalization Ordered by Fei Jeffers MD for Inpatient hb Admission. Preliminary diagnosis is Alcohol abuse with intoxication; Encephalopathy, unspecified - hepatic; Anemia in chronic diseases classified elsewhere; Syncope and collapse. Bed requested for Telemetry/MedSurg (Inpatient). Status is Inpatient Admission. Condition is Stable. Problem is new. Symptoms have improved. bd
[2019-12-03] MEDS ORDERED: LACTULOSE 20 GM/30 ML UCUP ONE (22:13)
[2019-12-03] MEDS ORDERED: ONDANSETRON 4 MG/2 ML VIAL IV PRN (22:54)
[2019-12-03] MEDS ORDERED: MORPHINE 4 MG/ML SYR IV PRN (22:54)
[2019-12-03] MEDS ORDERED: ACETAMINOPHEN 500 MG TAB PO PRN (22:54)
[2019-12-03 23:58] LABS: Urine Blood TRACE (NEG); Urine Glucose TRACE (NEG); Urine Protein NEGATIVE (NEG); Urine Specific Gravity 1.015 (1.005-1.030)
[2019-12-04 00:25] LABS: Urine Amorphous Sediment 2+ /HPF (NONE SEEN); Urine Bacteria <20 /HPF (NONE SEEN); Urine Culture Reflex Order NOT NEEDED; Urine RBC <5 /HPF (NONE SEEN)
--- NOTE | 2019-12-04 03:38 | P.HP ---
Certification for Inpatient Patient admitted to: Inpatient With expected LOS: >2 Midnights Patient will require the following post-hospital care: None Practitioner: I am a practitioner with admitting privileges, knowledge of patient current condition, hospital course, and medical plan of care. Services: Services provided to patient in accordance with Admission requirements found in Title 42 Section 412.3 of the Code of Federal Regulations Patient History Date of Service: 12/03/19 Reason for admission: Syncope/history of hepatocellular carcinoma History of Present Illness: Patient is a 54-year-old gentleman who came into the hospital with a syncopal episode. Patient was unresponsive and was brought into the emergency room by EMS. Patient has a history of hepatocellular carcinoma. Patient was undecided about how aggressive he wanted to be. However, after talking to his sister and his son he is decided he wanted to proceed with hospice care. At this time, he will be admitted to the hospital for his syncopal episode. Will Consult human services case manager/social media campaign manager in the morning for possible hospice placement. Monitor on telemetry for any arrhythmias in the meantime. Also concern for possible metastasis. Allergies No Known Allergies Allergy (Verified 07/28/19 21:59) Home Medications: Furosemide 20 mg PO DAILY 10/28/19 Insulin Regular, Human [Novolin R] See Protocol SQ DAILY 10/28/19 Spironolactone 50 mg PO DAILY 10/28/19 Pantoprazole [Protonix Tab*] 40 mg PO DAILYAC #30 tab 10/30/19 Thiamine HCl [Vitamin B-1*] 100 mg PO DAILY #30 tablet 10/30/19 carvediloL [Coreg*] 6.25 mg PO BID tab 10/30/19 Atorvastatin Calcium [Lipitor] 40 mg PO DAILY 12/04/19 Insulin Degludec [Tresiba] 30 unit SQ BID 12/04/19 Lactulose [Cephulac*] 90 ml PO TID 12/04/19 lisinopriL [Lisinopril] 5 mg PO DAILY 12/04/19 - Past Medical/Surgical History Diabetic: Yes -: Alcoholic liver cirrhosis -: History of Esophageal varices -: History of GI bleed -: Diabetes mellitus type 2 insulin dependent -: Hypertension -: Liver Cancer -: History of alcohol abuse -: Anemia of chronic disease -: Chronic renal disease stage III -: Banding ligation -: Heart cath no stent Psychosocial/ Personal History: Patient lives at home. - Family History Father Medical History: Heart disease, Lung disease, Diabetes Mother Medical History: Heart disease, Diabetes Sister Medical History: Diabetes - Social History Smoking Status: Former smoker Alcohol use: No CD- Drugs: No Caffeine use: No Review of Systems 10-point ROS is otherwise unremarkable Physical Examination - Vital Signs Temperature: 98 F Blood Pressure: 150/70 Pulse: 86 Respirations: 18 Pulse Ox (%): 96 - Physical Exam General: Alert, In no apparent distress HEENT: Atraumatic, Normocephalic Respiratory: Clear to auscultation bilaterally, Normal air movement Cardiovascular: Regular rate/rhythm, Normal S1 S2 Gastrointestinal: Normal bowel sounds, Soft and benign, Non-distended, No rebound, No guarding Musculoskeletal: No clubbing, No swelling Integumentary: No rashes Neurological: Normal gait, Sensation intact, Cranial nerves 3-12 intact Lymphatics: No axilla or inguinal lymphadenopathy - Studies Laboratory Data (last 24 hrs) 12/03/19 22:00: Troponin I 0.04 12/03/19 19:30: PT 12.9 H, INR 1.10 12/03/19 19:30: WBC 7.8 D, Hgb 8.4 L, Hct 27.4 L, Plt Count 130 L 12/03/19 19:30: Sodium 137, Potassium 3.7, BUN 17, Creatinine 1.70 H, Glucose 171 H, Magnesium 1.9, Total Bilirubin 0.5, AST 64 H, ALT 43, Alkaline Phosphatase 168 H Assessment & Plan - Problems (Diagnosis) (1) Syncope and collapse Current Visit: Yes Status: Acute (2) Hepatocellular carcinoma Current Visit: Yes Status: Acute (3) CVA (cerebral vascular accident) Current Visit: No Status: Acute Qualifiers: CVA mechanism: occlusion Precerebral and cerebral artery: posterior cerebral artery Laterality of affected vessel: unspecified Qualified Code(s) : I63.539 - Cerebral infarction due to unspecified occlusion or stenosis of unspecified posterior cerebral artery (4) Diabetes mellitus Onset Date: 08/12/18 Current Visit: No Status: Chronic Qualifiers: Diabetes mellitus type: type 2 Diabetes mellitus terminal operations supervisor insulin use: without [place] use Diabetes mellitus complication status: without complication Qualified Code(s): E11.9 - Type 2 diabetes mellitus without complications (5) Esophageal varices Onset Date: 08/12/18 Current Visit: No Status: Chronic Qualifiers: Esophageal varices type: unspecified type Esophageal varices bleeding: without bleeding Qualified Code(s): I85.00 - Esophageal varices without bleeding (6) HTN (hypertension) Current Visit: No Status: Chronic Qualifiers: Hypertension type: essential hypertension Qualified Code(s): I10 - Essential (primary) hypertension (7) Hepatitis C virus infection Current Visit: No Status: Chronic Qualifiers: Viral hepatitis chronicity: chronic (8) Liver cirrhosis Onset Date: 08/12/18 Current Visit: No Status: Chronic Qualifiers: Hepatic cirrhosis type: alcoholic cirrhosis Ascites presence: without ascites Qualified Code(s): K70.30 - Alcoholic cirrhosis of liver without ascites - Plan Plan: 1. Monitor on telemetry 2. Echocardiogram 3. Social work consultation for hospice placement 4. Comfort measures 5. GI and DVT prophylaxis Discharge Plan: Home Plan to discharge in: Greater than 2 days - Advance Directives Does patient have a Living Will: No Does patient have a Durable POA for Healthcare: No - Code Status/Comfort Care Code Status Assessed: Yes Code Status: Full Code Critical Care: No Time Spent Managing PTS Care (In Minutes): 45
[2019-12-04 05:23] LABS: Absolute Lymphocytes (CBC) 1.7 K/uL (0.7-4.9); Basophils % 0.8 % (0-1.3); Hematocrit 26.8 % (39.6-49.0); Lymphocytes % 31.5 % (15.3-44.8); MPV 8.6 fL (7.6-11.3); RBC Red Blood Cell Count 3.69 M/uL (4.33-5.43)
[2019-12-04 05:26] LABS: Protime INR 1.12
[2019-12-04] MEDS ORDERED: NA CHLORIDE 0.9% 1,000 ML ONE (05:42)
[2019-12-04] MEDS: NA CHLORIDE 0.9% 1,000 ML IV SCH ×2 (05:45→19:00)
[2019-12-04 05:47] VITALS: BMI 27.7
[2019-12-04 05:52] LABS: Albumin 2.6 g/dL (3.4-5.0); Bilirubin Total 0.4 mg/dL (0.2-1.0); Protein, Total 6.5 g/dL (6.4-8.2)
--- NOTE | 2019-12-04 08:52 | EKG ---
Test Date: 2019-12-03 Test Time: 19:29:02 Surveyor Helper Rod: KEITH MEASUREMENT RESULTS: Intervals: Rate: 68 ID: [id number] QRSD: 76 QT: 416 QTc: 442 [place]: P: 32 ID: [id number] QRS: 14 T: 57 INTERPRETIVE STATEMENTS: Normal sinus rhythm Septal infarct, age undetermined Abnormal ECG Compared to ECG 10/28/2019 09:42:13 Myocardial infarct finding now present Electronically Signed On 12-04-19 08:50:35 CDT by Gunnar Talley
--- NOTE | 2019-12-04 11:23 | P.PN ---
Subjective Date of Service: 12/04/19 Chief Complaint: Syncope/history of hepatocellular carcinoma Subjective: No new changes (Stuart nguyen, spouse at bedside discuss with - patient with hepatocellular cancer admitted for syncope, awaiting hospice evaluation) Physical Examination - Vital Signs Temperature: 97.4 F Blood Pressure: 120/70 Pulse: 57 Respirations: 12 Pulse Ox (%): 100 - Physical Exam General: Delirious (drowsy), Obese HEENT: Atraumatic, Normocephalic Neck: Supple, 2+ carotid pulse no bruit Respiratory: Clear to auscultation bilaterally, Normal air movement Cardiovascular: Normal pulses, Regular rate/rhythm Gastrointestinal: Normal bowel sounds, Soft and benign, Distended Neurological: Other (Drowsy) - Studies Laboratory Data (last 24 hrs) 12/03/19 22:00: Troponin I 0.04 12/03/19 19:30: PT 12.9 H, INR 1.10 12/03/19 19:30: WBC 7.8 D, Hgb 8.4 L, Hct 27.4 L, Plt Count 130 L 12/03/19 19:30: Sodium 137, Potassium 3.7, BUN 17, Creatinine 1.70 H, Glucose 171 H, Magnesium 1.9, Total Bilirubin 0.5, AST 64 H, ALT 43, Alkaline Phosphatase 168 H Laboratory Last Values WBC 5.5 K/uL (4.3-10.9) D 12/04/19 05:07 RBC 3.69 M/uL (4.33-5.43) L 12/04/19 05:07 Hgb 8.2 g/dL (13.6-17.9) L 12/04/19 05:07 Hct 26.8 % (39.6-49.0) L 12/04/19 05:07 MCV 72.5 fL (80-100) L 12/04/19 05:07 MCH 22.3 pg (27.0-35.0) L 12/04/19 05:07 MCHC 30.7 g/dL (32.0-36.0) L 12/04/19 05:07 RDW 22.9 % (12.1-15.2) H 12/04/19 05:07 Plt Count 112 K/uL (152-406) L 12/04/19 05:07 MPV 8.6 fL (7.6-11.3) 12/04/19 05:07 Neutrophils % 58.7 % (41.7-73.7) 12/04/19 05:07 Lymphocytes % 31.5 % (15.3-44.8) 12/04/19 05:07 Monocytes % 6.8 % (3.3-12.3) 12/04/19 05:07 Eosinophils % 2.2 % (0-4.4) 12/04/19 05:07 Basophils % 0.8 % (0-1.3) 12/04/19 05:07 Absolute Neutrophils 3.2 K/uL (1.8-8.0) 12/04/19 05:07 Absolute Lymphocytes 1.7 K/uL (0.7-4.9) 12/04/19 05:07 Absolute Monocytes 0.4 K/uL (0.1-1.3) 12/04/19 05:07 Absolute Eosinophils 0.1 K/uL (0-0.5) 12/04/19 05:07 Absolute Basophils 0.0 K/uL (0-0.5) 12/04/19 05:07 Anisocytosis 2+ 12/03/19 19:30 Microcytosis 1+ 12/03/19 19:30 Morphology Comment Noted (NOT SEEN) 12/03/19 19:30 PT 13.2 SECONDS (9.5-12.5) H 12/04/19 05:07 INR 1.12 12/04/19 05:07 APTT 34.4 SECONDS (24.3-36.9) 12/04/19 05:07 pH 7.31 (7.35-7.45) L 12/03/19 20:06 pCO2 32.2 mmHG (35-45) L 12/03/19 20:06 pO2 107.0 mmHG (75-100) H 12/03/19 20:06 HCO3 15.7 mmol/L (22-28) L 12/03/19 20:06 Base Excess -9.3 mmol/L 12/03/19 20:06 Oxyhemoglobin 94.9 % (94-97) 12/03/19 20:06 ABG O2 Sat (Measured) 97.0 % (92-98.5) 12/03/19 20:06 ABG Carboxyhemoglobin 1.9 % (0-1.5) H 12/03/19 20:06 ABG Methemoglobin 0.3 % (0-1.5) 12/03/19 20:06 Other Total Hgb 8.6 g/dl (12-18) L 12/03/19 20:06 Inspired O2 21.0 % 12/03/19 20:06 Sodium 143 mmol/L (136-145) 12/04/19 05:07 Potassium 4.0 mmol/L (3.5-5.1) 12/04/19 05:07 Chloride 117 mmol/L (98-107) H 12/04/19 05:07 Carbon Dioxide 18 mmol/L (21-32) L 12/04/19 05:07 BUN 13 mg/dL (7-18) 12/04/19 05:07 Creatinine 1.26 mg/dL (0.55-1.3) 12/04/19 05:07 Estimated GFR 59 mL/min (=/>90) L 12/04/19 05:07 Glucose 107 mg/dL (74-106) H 12/04/19 05:07 POC Glucose 113 mg/dl (65-120) 12/03/19 21:58 Lactic Acid 1.7 mmol/L (0.4-2.0) 12/03/19 23:49 Calcium 8.0 mg/dL (8.5-10.1) L 12/04/19 05:07 Magnesium 1.9 mg/dL (1.8-2.4) 12/03/19 19:30 Total Bilirubin 0.4 mg/dL (0.2-1.0) 12/04/19 05:07 Direct Bilirubin 0.2 mg/dL (0-0.2) 12/03/19 19:30 AST 56 U/L (15-37) H 12/04/19 05:07 ALT 41 U/L (12-78) 12/04/19 05:07 Alkaline Phosphatase 144 U/L (45-117) H 12/04/19 05:07 Ammonia 67 umol/L (19-54) H 12/03/19 19:30 Rapid Troponin I 0.04 ng/mL (0.0-0.045) 12/03/19 19:30 Troponin I 0.04 ng/mL (0.0-0.045) 12/03/19 22:00 NT-Pro-B Natriuret Pep 160 pg/mL (<125) H 12/03/19 19:30 Serum Total Protein 6.5 g/dL (6.4-8.2) 12/04/19 05:07 Albumin 2.6 g/dL (3.4-5.0) L 12/04/19 05:07 Globulin 3.9 g/dL (2.3-3.5) H 12/04/19 05:07 Albumin/Globulin Ratio 0.7 (1.1-1.8) L 12/04/19 05:07 Procalcitonin 0.05 ng/mL (<0.50) 12/03/19 19:30 Urine pH 5.0 (5.0-7.0) 12/03/19 22:31 Ur Specific [place] 1.015 (1.005-1.030) 12/03/19 22:31 Glucose (UA)(Auto) Trace (NEG) 12/03/19 22:31 Urine Ketones Negative (NEG) 12/03/19 22:31 Urine Blood Trace (NEG) H 12/03/19 22:31 Urine Nitrite Negative (NEG) 12/03/19 22:31 Ur Leukocyte Esterase Negative (NEG) 12/03/19 22:31 Urine RBC <5 /HPF (NONE SEEN) 12/03/19 22:27 Urine WBC None seen /HPF (<5) 12/03/19 22:27 Ur Squamous Epith Cells <5 /HPF (NONE SEEN) 12/03/19 22:27 Amorphous Sediment 2+ /HPF (NONE SEEN) H 12/03/19 22:27 Urine Bacteria <20 /HPF (NONE SEEN) 12/03/19 22:27 Urine Culture Reflexed Not needed 12/03/19 22:27 Urine Total Protein Negative (NEG) 12/03/19 22:31 Plasma/Serum Alcohol 272 mg/dL (<10) H 12/03/19 20:04 ABO/Rh O POSITIVE 12/03/19 20:30 Solid Phase Ab Screen Negative 12/03/19 20:30 Microbiology Data (last 24 hrs): 12/03/19 20:30 Blood - Blood Anaerobic Blood Culture - Final Assessment & Plan Physician Review: Patient Assessed, Agree with Above Assessment and Plan Physician Review Additional Text: #Syncope-unclear etiology -given planned for hospice with hold further evaluation for now --continue gentle IV fluid # hepatocellular cancer-case management discuss with --follow hospice evaluation today # acute kidney injury-continue gentle IV fluid. Follow repeat creatinine in a.m. # DVT prophylaxis -subcutaneous heparin for now until comfort care decided
[2019-12-04] MEDS ORDERED: D50W 25 GM/50 ML SYRINGE/VIAL IV PRN (13:11)
[2019-12-04] MEDS ORDERED: GLUCAGON 1 MG/VIAL IM PRN (13:11)
[2019-12-04] MEDS: INSULIN -REGULAR HUMAN 50 UNIT/0.5 ML ML SQ SCH ×2 (16:30→21:00)
[2019-12-04] MEDS: LACTULOSE 20 GM/30 ML UCUP PO SCH (21:02)
[2019-12-04] MEDS: carvediloL 6.25 MG TAB PO SCH (21:02)
[2019-12-04 22:48] VITALS: O2SAT 100
--- NOTE | 2019-12-05 00:41 | CON ---
Date of Consultation: 12/04/2019 Reason For Consultation: Elevated BUN and creatinine. History Of Present Illness: This is a 54-year-old gentleman with significant past medical history of diabetes, complicated with neuropathy, hypertension, hyperlipidemia, alcoholic liver cirrhosis, live r cancer with met, coronary artery disease status post stenting. Patient came to the hospital [facility] of weakness and fatigue. Because the patient had hepatocellular carcinoma, in the beginning, thoug ht to continue on full treatment, then he decided for hospice. Primary workup showed elevation in th e creatinine and BUN. For that reason, we have been consulted and I started the patient on hydration and finally, patient decided to go with hospice. Kidney function started improving. Past Medical History: 1.Liver CA with met, alcoholic liver disease. 2.Hypertension. 3.Chronic kidney disease, stage III. 4.Anemia of chronic kidney disease. 5.Diabetes complicated with neuropathy. Home Medications: Include Lasix insulin, spironolactone, pantoprazole, carvedilol atorvastatin, lact ulose, lisinopril. Allergies: NO KNOWN DRUG ALLERGIES. Past Surgical History: Include PTCA, banding ligation. Family History: Positive for hypertension. Social History: Ex-smoker, ex alcohol. Denies drugs abuse. Review of Systems: Head and Neck: No red eye. No ear pain. GI: Has abdominal pain. : No polyuria, no dysuria, no hematuria. JOB INTERVIEWER: Not applicable. Respiratory: Has no shortness of breath. Cardiovascular: Has leg swelling. Endocrine: No polydipsia. Skin: No rash. Neuro: Generalized weakness, has fatigue. Musculoskeletal: No generalized weakness. Physical Examination: Vital Signs: When I saw the patient, blood pressure of 147/70, pulse of 63 afebrile. Chest: Clear to auscultation. Heart: S1, S2 regular. Abdomen: Soft nontender, ascites. Extremities: Trace edema. Laboratory Data: WBC 5.5, H and H 8.2/26.8, platelet 112. Sodium 143, potassium 4, bicarb 18, BUN 1 3, creatinine 1.2. GFR of 59, calcium 8. Upon arrival to the hospital, creatinine 1.7, GFR of 42. Current Medications: The patient on include, 1.Atorvastatin. 2.Tylenol. 3.Lactulose. 4.Lisinopril 5 mg. 5.Carvedilol. 6.Spironolactone. 7.Normal saline. Assessment And Plan: 1.Acute kidney injury on chronic kidney disease secondary to prerenal, secondary to over-diuresis villarreal perimposed with gastrointestinal loss secondary to nausea and vomiting on the recovery phase. I am g oing to go ahead and discontinue spironolactone and continue with hydration. Discontinue lisinopril and we will follow up. 2.Acidosis secondary to renal failure. No need for bicarb. 3.Given multiple comorbid conditions, especially cancer and metastasis, possibly he can go with hosp ice. I am not going to send any other workup given the improvement in the kidney function and no nee d for further workup. 4.Hepatocellular cancer with mets, going for hospice. We will follow up with the primary. Again, I am not going to send any further workup. We will follow up. 5.Hyponatremia, secondary to cirrhosis. We will follow up with primary. Thank you, Dr. Ornelas for allowing us to participate in the care of your patient. TRACY Voice ID: [id number] Report ID: [id number]
[2019-12-05] MEDS: NA CHLORIDE 0.9% 1,000 ML IV SCH (01:32)
[2019-12-05 06:38] LABS: Albumin 2.8 g/dL (3.4-5.0); Bilirubin Total 0.8 mg/dL (0.2-1.0); Potassium 4.1 mmol/L (3.5-5.1); Protein, Total 6.7 g/dL (6.4-8.2)
[2019-12-05] MEDS ORDERED: PANTOPRAZOLE 40MG TABLET PO SCH (07:30)
[2019-12-05] MEDS: INSULIN -REGULAR HUMAN 50 UNIT/0.5 ML ML SQ SCH ×2 (07:30→11:30)
[2019-12-05] MEDS ORDERED: THIAMINE HCL 100 MG TABLET PO SCH (09:00)
[2019-12-05] MEDS ORDERED: lisinopriL 5 MG TAB PO SCH (09:00)
[2019-12-05] MEDS ORDERED: HOME MED 1 EA UNK (Spironolactone [Spironolactone] 50 MG) PO SCH (09:00)
[2019-12-05] MEDS ORDERED: SPIRONOLACTONE 25 MG TABLET PO SCH (09:00)
[2019-12-05] MEDS ORDERED: ATORVASTATIN 40 MG TAB PO SCH (09:00)
[2019-12-05] MEDS: carvediloL 6.25 MG TAB PO SCH (09:00)
[2019-12-05] MEDS: LACTULOSE 20 GM/30 ML UCUP PO SCH (09:07)
[2019-12-05 09:49] VITALS: TEMP 97.3
--- NOTE | 2019-12-05 10:59 | P.DS ---
Admission Date: 12/03/19 Discharge Date: 12/08/19 Disposition: HOSPICE-HOME Reason for Admission: Syncope/history of hepatocellular carcinoma Brief History of Present Illness: Patient is a 54-year-old gentleman who came into the hospital with a syncopal episode. Patient was unresponsive and was brought into the emergency room by EMS. Patient has a history of hepatocellular carcinoma. Patient was undecided about how aggressive he wanted to be. However, after talking to his sister and his son he is decided he wanted to proceed with hospice care. At this time, he will be admitted to the hospital for his syncopal episode. Will Consult insurance case manager/community mental health social worker in the morning for possible hospice placement. Monitor on telemetry for any arrhythmias in the meantime. Also concern for possible metastasis. Hospital Course: Patient was admitted for syncope of unclear etiology. Given advanced hepatocellular cancer, no further evaluation was done as family and patient decided on hospice. Patient has been evaluated and enrolled in home hospice. He was discharged in stable condition. Vital Signs/Physical Exam: Temp Pulse Resp BP Pulse Ox 97.3 F 64 18 121/58 L 100 12/05/19 08:00 12/05/19 09:01 12/05/19 08:00 12/05/19 09:01 12/05/19 08:00 Laboratory Data at Discharge: WBC 5.5 K/uL (4.3-10.9) D 12/04/19 05:07 Hgb 8.2 g/dL (13.6-17.9) L 12/04/19 05:07 Hct 26.8 % (39.6-49.0) L 12/04/19 05:07 Plt Count 112 K/uL (152-406) L 12/04/19 05:07 PT 13.2 SECONDS (9.5-12.5) H 12/04/19 05:07 INR 1.12 12/04/19 05:07 APTT 34.4 SECONDS (24.3-36.9) 12/04/19 05:07 Sodium 143 mmol/L (136-145) 12/05/19 05:50 Potassium 4.1 mmol/L (3.5-5.1) 12/05/19 05:50 BUN 13 mg/dL (7-18) 12/05/19 05:50 Creatinine 1.24 mg/dL (0.55-1.3) 12/05/19 05:50 Glucose 117 mg/dL (74-106) H 12/05/19 05:50 Magnesium 1.9 mg/dL (1.8-2.4) 12/03/19 19:30 Total Bilirubin 0.8 mg/dL (0.2-1.0) 12/05/19 05:50 AST 64 U/L (15-37) H 12/05/19 05:50 ALT 42 U/L (12-78) 12/05/19 05:50 Alkaline Phosphatase 154 U/L (45-117) H 12/05/19 05:50 Troponin I 0.04 ng/mL (0.0-0.045) 12/03/19 22:00 Home Medications: Spironolactone 50 mg PO DAILY 10/28/19 Pantoprazole [Protonix Tab*] 40 mg PO DAILYAC #30 tab 10/30/19 carvediloL [Coreg*] 6.25 mg PO BID tab 10/30/19 Atorvastatin Calcium [Lipitor] 40 mg PO DAILY 12/04/19 Insulin Degludec [Tresiba] 30 unit SQ BID 12/04/19 Lactulose [Cephulac*] 90 ml PO TID 12/04/19 Insulin Regular, Human [Novolin R] 12 unit SQ DAILY WITH BREAKFAST 12/05/19 Propranolol HCl 40 mg PO BID 12/05/19 Rifaximin [Xifaxan] 550 mg PO BID 12/05/19 glipiZIDE [Glucotrol] 10 mg PO DAILY 12/05/19 Diet: Low sodium Activity: Ad laquita
--- NOTE | 2019-12-05 11:33 | P.PN ---
Subjective Date of Service: 12/06/19 Chief Complaint: Syncope/history of hepatocellular carcinoma Subjective 54-year-old man with significant past medical history of diabetes, , alcoholic liver cirrhosis, liver cancer with met,and CAD presented for weakness Found to have JASON with Cr 1.7 today no overnight events stable VS plan to discjharge to Hospice will sign off call us prn Kidney function started improving. Past Medical History: 1. Liver CA with met, alcoholic liver disease. 2. Hypertension. 3. Chronic kidney disease, stage III. 4. Anemia of chronic kidney disease. 5. Diabetes complicated with neuropathy. Home Medications: Include Lasix insulin, spironolactone, pantoprazole, carvedilol atorvastatin, lactulose, lisinopril. Allergies: NO KNOWN DRUG ALLERGIES. Past Surgical History: Include PTCA, banding ligation. Family History: Positive for hypertension. Physical exam general: awake , alert , NAD , Neck; Supple, No elevated JVD hear: RRR, normal S1,2 no murmur or rub Chest: CTAB, no rlaes or wheezes Abdomen: Soft , Nt Extremities No edema or ulcer A/p JASON resolved due to prerenal azotemia HTN Bp controlled cont lisniopril Alcohol cirrhosis with liver CA cont supportive care will sign off call us prn Physical Examination - Vital Signs Temperature: 97.3 F Blood Pressure: 121/58 Pulse: 64 Respirations: 18 Pulse Ox (%): 100 - Studies Microbiology Data (last 24 hrs): 12/03/19 20:30 Blood - Blood Anaerobic Blood Culture - Final Assessment And Plan Physician Review: Patient Assessed, Agree with Above Assessment and Plan
[2019-12-05] MEDS ORDERED: Rifaximin 550 MG Tab PO SCH (21:00)
[2019-12-05] MEDS ORDERED: HOME MED [Rifaximin 550 MG Tab] PO SCH (21:00)
[2019-12-05] MEDS ORDERED: PROPRANOLOL HCL 40 MG TAB PO SCH (21:00)
[2019-12-05] MEDS ORDERED: INSULIN DEGLUDEC 30 UNIT SQ SCH (21:00)
[2019-12-06] MEDS ORDERED: INSULIN -REGULAR HUMAN 50 UNIT/0.5 ML ML SQ SCH (08:00)
[2019-12-06] MEDS ORDERED: glipiZIDE 5 MG TAB PO SCH (08:00)
[2019-12-06 14:23] VITALS: BP 121/58
== END 2019-12-05 13:25 | disposition hospice, home (50) | DRG 312 ==
LOC: ER 19:20 → ERHOLD 23:32 → 2ND 12-04 09:45
PROVIDERS: ADMIT Hospitalist; ATTEND Hospitalist
DX: R55 Syncope and collapse (principal); N17.9 Acute kidney failure, unspecified; C22.0 Liver cell carcinoma; C79.9 Secondary malignant neoplasm of unspecified site; E87.2 Acidosis; E87.1 Hypo-osmolality and hyponatremia; I12.9 Hypertensive chronic kidney disease with stage 1 through stage 4 chronic kidney disease, or unspecified chronic kidney disease; E11.22 Type 2 diabetes mellitus with diabetic chronic kidney disease; N18.3 Chronic kidney disease, stage 3 (moderate); E11.40 Type 2 diabetes mellitus with diabetic neuropathy, unspecified; D63.1 Anemia in chronic kidney disease; I25.10 Atherosclerotic heart disease of native coronary artery without angina pectoris; K70.30 Alcoholic cirrhosis of liver without ascites
CPT/HCPCS: 36415; 51702; 70450; 71045; 80048; 80053; 80076; 80320; 81003; 81015; 82140; 82805; 82947; 83605; 83735; 83880; 84145; 84484; 85025; 85610; 85730; 86850; 86900; 86901; 87040; 93005; 96361; 96374; 96375; 99285; C9113; J2405; J3411; J7030

== ENCOUNTER 2020-08-07 13:39 | Emergency (ER) | payer MEDICAID ==
--- OUTSIDE RECORDS SUMMARY | 2020-08-07 13:42 | XMS REPORT | Clinical Summary ---
:1965 Author Organization [facility] Address [address] [place] [address] Care Team Providers Name Role Phone Tima Estrada DO Primary Care Provider [phone] Allergies No Known Allergies Medications Medication Sig Dispensed Refills Start Date End Date Status glipiZIDE Take 10 mg by mouth 0 Active (GLUCOTROL) 10 MG daily. tablet lactulose Take 60 mLs by mouth 0 Active (CHRONULAC) 10 3 (three) times gram/15 mL (15 mL) daily. solution metFORMIN Take 1,000 mg by 0 Act mark (GLUCOPHAGE) 1000 MG mouth 2 (two) times tablet daily with breakfast and dinner. furosemide (LASIX) Take 1 tablet (20 mg 30 tablet 4 04/08/2019 Active 20 MG tablet total) by mouth daily. pantoprazole Take 1 tablet (40 mg 60 tablet 4 04/08/2019 Active (PROTONIX) 40 MG total) by mouth 2 tablet (two) times daily. rifAXIMin 550 mg Tab Take 1 tablet (550 60 tablet 4 04/08/2019 Active mg total) by mouth 2 (two) times daily. spironolactone Take 1 tablet (50 mg 30 tablet 4 04/08/2019 Active (ALDACTONE) 50 MG total) by mouth tablet daily. insulin degludec Inject 18 Units 0 Active (TRESIBA FLEXTOUCH subcutaneously U-100) 100 unit/mL daily. (3 mL) InPn atorvastatin Take 1 tablet (40 mg 30 tablet 1 01/02/201901/01 (LIPITOR) 40 MG total) by mouth 0 tablet every evening. Active Problems Problem Noted Date Hepatocellular carcinoma 12/17/2018 Portal vein thrombosis 12/17/2018 Other cirrhosis of liver 12/16/2018 Portal hypertension 12/16/2018 Acute blood loss anemia 12/16/2018 Acute upper GI bleed 12/16/2018 Secondary esophageal varices with bleeding 12/16/2018 Acute respiratory failure 12/16/2018 GI bleed 12/15/2018 Encounters Date Type Specialty Care Team Description 12/03/2019 Abstract Hepatology Marisa Forrest MA 12/01/2019 Documentation Hepatology Grecia Sheets FNP 10/13/2019 Abstract Hepatology Chanel Prakash MA 10/03/2019 Hospital Encounter Radiology Lizbeth Menendez L iver carcinoma (HCC) 10/02/2019 Outside Orders Radiology Lizbeth Menendez Liver carcinoma (HCC) (Primary Dx) after 08/07/2019 Family History Medical History Relation Name Comments [...] six or more drinks on one occasion? No t asked Sex Assigned at Date Recorded Not on file Last Filed Vital Signs Not on file Plan of Treatment Health Maintenance Due Date Last Done Comments COLON CANCER SCREENING COLONOSCOPY 1965 INFLUENZA VACCINE (#1) 2020 LIPID PANEL 12/19/2021 12/19/2018 Procedures Procedure Name Priority Date/Time Associated Diagnosis Comme nts MR ABDOMEN WITH & Routine 10/03/2019 12:21 PM Liver carcinoma Results for this WITHOUT IV CONTRAST [facility] (HCC) procedur e are in the results section. POCT-CREATININE Routine 10/03/2019 11:32 AM Resul ts for this [facility] procedure are i n the results section. 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 COMPARISON: MRI Abdomen 04/08/2019 TECHNIQUE: MR of the Abdomen WITHOUT and WITH intra venous contrast. FINDINGS: LOWER THORAX: Lung bases are unremarkabl e. No pleural effusion. LIVER: Cirrhotic liver morphology with n odular contour. Treated HCC lesion in the anterior right hepatic dom e measures approximately 3 x 3.4 cm. A 1.4 cm vague early has focus i s seen in the anterior right hepatic lobe adjacent to the gallbladder fossa. TIPS is present. BILIARY: Gallbladder is contracted. No g allstones or biliary ductal dilation. SPLEEN: Splenomegaly measuring up to 2.8 cm in maximum craniocaudal dimension. No focal mass. PANCREAS: No focal mass or ductal dilati on. ADRENALS: No adrenal nodules. KIDNEY/URETERS: Kidneys are normal in si ze without solid mass lesion or hydronephrosis. PELVIS/RETROPERITONEUM: No free fluid. N o lymphadenopathy VESSELS: Main portal vein is not well vi sualized. BONES AND SOFT TISSUES: Unremarkable. IMPRESSION: 1.Cirrhosis status post TACE of the ante rior hepatic dome lesion, no evidence of new lesions. 2.Splenomegaly due to portal hypertensio n without ascites. 3.Patient is status post TIPS. 4.Vague early enhancing focus in the ant erior right hepatic lobe measuring 1.4 cm can be followed with villarreal bsequent examination. 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 COMPARISON: MRI Abdomen 04/08/2019 TECHNIQUE: MR of the Abdomen WITHOUT and WITH intra venous contrast. FINDINGS: LOWER THORAX: Lung bases are unremarkabl e. No pleural effusion. LIVER: Cirrhotic liver morphology with n odular contour. Treated HCC lesion in the anterior right hepatic dom e measures approximately 3 x 3.4 cm. A 1.4 cm vague early has focus i s seen in the anterior right hepatic lobe adjacent to the gallbladder fossa. TIPS is present. BILIARY: Gallbladder is contracted. No g allstones or biliary ductal dilation. SPLEEN: Splenomegaly measuring up to 2.8 cm in maximum craniocaudal dimension. No focal mass. PANCREAS: No focal mass or ductal dilati on. ADRENALS: No adrenal nodules. KIDNEY/URETERS: Kidneys are normal in si ze without solid mass lesion or hydronephrosis. PELVIS/RETROPERITONEUM: No free fluid. N o lymphadenopathy VESSELS: Main portal vein is not well vi sualized. BONES AND SOFT TISSUES: Unremarkable. IMPRESSION: 1.Cirrhosis status post TACE of the ante rior hepatic dome lesion, no evidence of new lesions. 2.Splenomegaly due to portal hypertensio n without ascites. 3.Patient is status post TIPS. 4.Vague early enhancing focus in the ant erior right hepatic lobe measuring 1.4 cm can be followed with villarreal bsequent examination. Signed: Terese Jordan MD Report Verified Date/Time: 10/06/2019 1 5:38:31 Reading Location: [address] Performing Organization Address City/State/Zipcode Phone Number [facility] POC-Creatinine (10/03/2019 11:32 AM [facility]) POC-Creatinine 1.3Comment: TESTED 0.6 - 1.3 [facility]-KG 2457 mg/dL [facility] [address] POC-EGFR 57 mL/min/1.73M2 [facility] Specimen Blood Performing Organization Address City/State/Zipcode Phone Number [facility] [address] [place] [address] CENTER after 08/07/2019 Insurance Payer Benefit Plan / Subscriber ID Effective Dates Phone Addre ss Type Group [place] [employer] [place] [id number] 2019-[address] [place] [address] Advance Directives For more information, please contact: [phone] Code Status Date Activated Date Inactivated Comments Full Code 06/18/2019 2:42 PM 06/18/2019 8:11 PM This code status was determined by: Patient Full Code 12/18/2018 3:02 PM 01/02/2019 1:38 PM This code status was determined by: Patient Full Code 12/15/2018 1:20 PM 12/17/2018 12:27 PM This code status was determined by: Patient
--- OUTSIDE RECORDS SUMMARY | 2020-08-07 13:46 | XMS REPORT | Continuity of Care Document ---
:1965 Author Organization [facility] t Address [address] [place] [address] [address]. [address] [place] [address] Care Team Providers Name Role Phone Sean THOMSON Tima Rodriguez Primary Care Physician [phone] Lon ORTIZ Attending Clinician Unavailable Jose Angel Olivera Attending Clinician Unavailable Odalys Villegas MA Attending Clinician Unavailable Federico Menendez MD Attending Clinician FEDERICO MENENDEZ Attending Clinician Unavailable Gilberto ELIAS, E Attending Clinician RUFINO KASPER Attending Clinician Unavailable FEDERICO MENENDEZ Admitting Clinician Unavailable RUFINO KASPER Admitting Clinician Unavailable Payers Payer Name Policy Type Policy Effective Date Expiration Date Sour ce Number HARMON [id number] [address] [facility] MEDICAIDMEDICAID 00:00:00 - Medica l [id number] Ce nter 9-Present Problems Condition Condition Condition Status Onset Resolution Last Treating Co mments Source Name Details Category Date Date Treatment Clinician Date 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 00:00: Medi yoseph 00 Center Portal Portal Disease Active [facility] vein vein 3-26 [facility] - thrombosis thrombosis 00:00: Me dical 00 Center Other Other Disease Active [facility] cirrhosis cirrhosis 3-25 [facility] - of liver of liver 00:00: Medica l 00 Center Portal Portal Disease Active [facility] hypertensi hypertensi 3-25 [facility] - on on 00:00: Medical 00 Center Acute Acute Disease Active [facility] blood loss blood loss 3-25 [facility] - anemia anemia 00:00: Medical 00 Center Acute Acute Disease Active [facility] upper GI upper GI 3-25 [facility] - bleed bleed 00:00: Medical 00 Center 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 00:00: Medical with with 00 Center bleeding bleeding Acute Acute Disease Active [facility] respirator respirator 3-25 [facility] - y failure y failure 00:00: [facility] yoseph 00 Center GI bleed GI bleed Disease Active [facility] 3-24 [facility] - 00:00: Medical 00 [place] Noncomplia Noncomplia Problem Active [facility] nce of nce of [facility] - patient patient Memoria with with l dietary dietary Outpati regimen regimen ent Clinics Alcohol Alcohol Problem Active [facility] abuse abuse [facility] - Memoria l Outpati ent Clinics Coronary Coronary Problem Active [facility] artery artery [facility] - disease disease Memoria involving involving l mentasta mentasta Outpati coronary coronary ent artery of artery of Clin ics mentasta mentasta heart, heart, angina angina presence presence unspecifie unspecifie d d Subclinica Subclinica Problem Active [facility] l [facility] - hypothyroi hypothyroi Me moria dism dism l Outpati ent Clinics Type 2 Type [address] diabetes diabetes [facility] - mellitus mellitus Memori a with other with other l diabetic diabetic Outpat i kidney kidney ent complicati complicati Cl inics on on Liver Liver Problem Active [facility] lesion lesion [facility] - Memoria l Outpati ent Clinics Hepatitis Hepatitis Problem Active [facility] C virus C virus [facility] - infection infection Flo víctor without without l hepatic hepatic Outpati coma, coma, ent unspecifie unspecifie Cl inics d d chronicity chronicity Uncontroll Uncontroll Diagnosis Active [facility] ed type 2 ed type 2 Luke s - diabetes diabetes Memori a mellitus mellitus l with with Outpati hyperglyce hyperglyce en t blanca blanca Clinics Mixed Mixed Problem Active [facility] hyperlipid hyperlipid [facility] - emia emia Memoria l Outpati ent Clinics HTN, goal HTN, goal Diagnosis Active [facility] below below [facility] - 130/80 130/80 Memoria l Outpati ent Clinics Alcoholic Alcoholic Problem Active [facility] cirrhosis cirrhosis [facility] - of liver of liver Memori a without without l ascites ascites Outpati ent Clinics Diabetic Diabetic Problem Active [facility] t hyperosmol hyperosmol [place] [facility] - ar ar Memoria non-ketoti non-ketoti l c state c state Outpati ent Clinics 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 [place] - varices varices Memoria with with l bleeding bleeding Outpat i ent Clinics Hepatocell Hepatocell Diagnosis Active [facility] Woodard ular ular [facility] - carcinoma carcinoma Flo víctor l Outpati ent Clinics 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 [place] - varices varices Memoria without without l bleeding bleeding Outpat i ent Clinics Alcohol Alcohol Diagnosis Active [facility] abuse abuse [facility] - counseling counseling Me moria and and l surveillan surveillan Ou tpati ce ce ent Clinics Renal Renal Diagnosis Active [facility] Woodard insufficie insufficie [facility] - ncy ncy [facility] Proteinuri Proteinuri Diagnosis Active [facility] a, a, [facility] - unspecifie unspecifie Me moria d d l [facility] Encephalop Encephalop Diagnosis Active [facility] athy, athy, [facility] - hepatic hepatic Memoria l Outpati ent Clinics Noncomplia Noncomplia Diagnosis Active [facility] nce nce [facility] - w/medicati w/medicati Me moria on on l treatment treatment Outp ati due to due to ent intermit intermit Clinic s use of use of medication medication Allergies, Adverse Reactions, Alerts This patient has no known allergies or adverse reactions. Family History Family Member Diagnosis Comments Start Date Stop Date Source Natural father Diabetes [facility] Natural mother Diabetes [facility] Social History Social Habit Start Date Stop Date Quantity Comments Source History SDOH [facility] minesh - Alcohol Std Drinks Medica l Center History SDOH [facility] minesh - Alcohol Binge Medical [place] [facility] Sex Assigned At [facility] Medical [place] Tobacco use and 2019-06-18 2019-06-18 Never used [facility] - exposure 00:00:00 00:00:00 Medical Center Alcohol intake 2019-06-18 2019-06-[address] [facility] - 00:00:00 00:00:00 non-drinker of Medical Ce nter alcohol (finding) History SDOH 2018-12-15 2018-12-[address] [facility] - Alcohol Frequency 00:00:00 00:00:00 [facility] Alcohol Comment 2018-12-15 2018-12-15 [place] [address] [facility] - 00:00:00 00:00:00 [facility] Smoking Status Start Date Stop Date Source Never smoker [facility] - M [facility] Medications Ordered Filled Start Stop Current Ordering Indication Dosage Frequency Signature Comments Components Source Medication Medication Date Date Medication? Clinician (SIG) Name Name Insulin Insulin Yes Tima [address] Syringe Syringe 3-09 E[facility]ada for [facility] - 00:00: insulin Memoria 00 [facility] NovoLog NovoLog Yes Tima [address] Flexpen Flexpen 2-19 [facility] before [facility] - 00:00: meals and Memoria 00 at bedtime l [facility] ent Clinics BD BD 2018-09 Yes Tima [address] [address] Ultra-Fine Ultra-Fine 0-07 Estrada with [facility] [facility] - Shelby Pen Shelby Pen 00:00: Tresiba Me moria Haysi Haysi 00 pen [facility] ent [facility] glipiZIDE Yes 10mg QD Take [address] (GLUCOTROL) 9-25 by mouth Luke s - 10 MG 18:11: daily. Medical tablet 41 Center lactulose Yes 60mL Q.[id number] Take [address] (CHRONULAC) 9-25 [id number] mLs by [facility]ukes - 10 gram/15 18:11: 3D mouth 3 Medi yoseph mL (15 mL) 41 (three) Center solution times daily. metFORMIN Yes 1000mg Take 1,[address] (GLUCOPHAGE 9-25 mg by [facility]ukes - ) 1000 MG 18:11: mouth 2 Medic al tablet 41 (two) Center times daily with breakfast and dinner. insulin Yes 18U QD Inject 18 [facility] degludec 9-25 Units [facility]ukes - (TRESIBA 18:11: subcutaneo Med ical FLEXTOUCH 41 [facility] Center U-100) 100 daily. unit/mL (3 mL) InPn furosemide Yes 20mg QD Take 1 [facility] (LASIX) 20 7-16 tablet (20 Migdalia es - MG tablet 00:00: mg total) Med ical 00 by mouth Center daily. pantoprazol Yes 40mg Q.5D Take [address] e 7-16 tablet (40 [facility] - (PROTONIX) 00:00: mg total) Me dical 40 MG 00 by mouth 2 Center tablet (two) times daily. rifAXIMin Yes 550mg Q.5D Take 1 [facility] t 550 mg Tab 7-16 tablet [facility]ukes - 00:00: (550 mg Medical 00 total) by Center mouth 2 (two) times daily. spironolact Yes 50mg QD Take [address] one 7-16 tablet (50 [facility] - (ALDACTONE) 00:00: mg total) M edical 50 MG 00 by mouth Center tablet daily. atorvastati 2019- No 40mg QD Take [address] n (LIPITOR) 4-11 04-10 tablet (40 L ukes - 40 MG 00:00: 23:59 mg total) Medica l tablet 00 :00 by mouth Center every evening. Atorvastati Atorvastati Yes Tima [address] [facility] n Calcium n Calcium Estrada Luke s - [facility]oria [facility] Propranolol Propranolol Yes Tima [address] HCl HCl Estrada on an Lukes - empty Memoria stomach l Outpati ent Clinics Lasix Lasix Yes Tima [address] [facility] - Memoria l Outpati ent Clinics Carvedilol Carvedilol Yes Tima [address] [facility] Estrada [facility] - Memoria l Outpati ent Clinics Aspir-81 Aspir-81 Yes Tima [address] Estrada [facility] - Memoria l Outpati ent Clinics Lisinopril Lisinopril Yes Tima [address] Estr[facility] - Memoria l Outpati ent Clinics Pantoprazol Pantoprazol Yes Tima [address] e Sodium e Sodium Estrada [facility] - Memoria l Outpati ent Clinics Spironolact Spironolact Yes Tima [address] one one Estrada with food [facility]ukes - Memoria l Outpati ent Clinics Rifaximin Rifaximin Yes Tima [address] [facility] - [facility] Thiamine Thiamine Yes Tima [address] HCl HCl Estrada [facility] - Memoria l Outpati ent Clinics Novolin R Novolin R Yes Tima INJECT [facility] Estrada UNDER THE [facility]ukes - SKIN Memoria DIRECTED l BEFORE A Outpati MEAL AND ent AT Clinics BEDTIME. MAX 12 UNITS PER DAY Tresiba Tresiba Yes Tima inject [address] FlexTouch FlexTouch Estrada units Mig[place] es - Memoria l Outpati ent Clinics Lactulose Lactulose Tima 60 gm/[address] [facility] 12-11 Estrada ml [facility]ukes - 00:00 Memoria :00 l Outpati ent Clinics Procedures Procedure Date / Time Performed Performing Clinician Sourc e MR ABDOMEN WITH & 2019-10-03 12:21:[address] [facility] - WITHOUT IV CONTRAST Medical [facility] er POCT-CREATININE 2019-10-03 11:32:[address] [facility] - [facility] Plan of Care Planned Activity Planned Date Details Comments Source Future Scheduled 2021-12-[address] [facility] - Test 00:00:00 (procedure) [code = [facility] [id number]] Future Scheduled 2020-05-[address] [facility] - Test 00:00:00 (#1) [code = [facility] INFLUENZA VACCINE (#1)] Future Scheduled [address] [facility] Migdalia es - Test 00:00:00 malignant neoplasm Medical C enter of colon (procedure) [code = 694044777] Encounters Start End Encounter Admission Attending Care Care Encounter Source Date/Time Date/Time Type Type Clinicians Facility Department ID 2019-12-01 2019-12-01 Outpatient [facility] [id number] 13:15:00 13:15:00 [employer] [facility] Family Medicine l Medicine Outpati ent Clinics 2019-11-26 2019-11-26 [place] [id number] 08:44:00 08:44:00 [employer] [facility] Family [facility] l Medicine Outpati ent Clinics 2019-11-17 2019-11-17 [facility] [id number] 13:27:00 13:27:00 t [employer] [facility] Family Medicine l Medicine Outpati ent Clinics 2019-11-12 2019-11-12 [facility] [id number] 14:37:00 14:37:00 [employer] [facility] Medicine Medicine Outpati ent Clinics 2019-11-04 2019-11-04 [facility] [id number] 15:45:00 15:45:00 t Bejou Bejou Gimado Luke s - Drive [facility] Medicine Outpati ent Clinics 2019-10-30 2019-10-30 [facility] [id number] 10:01:00 10:01:00 t Bejou Bejou Gimado Luke s - Drive [facility] Medicine Outpati ent Clinics 2019-10-29 2019-10-29 [facility] [id number] 13:42:00 13:42:00 t Bejou Bejou [email or web address] s - Drive [facility] Medicine Outpati ent Clinics 2019-10-28 2019-10-28 [facility] [id number] 08:45:00 08:45:00 t Bejou Bejou [employer] s - Drive [facility] Medicine Outpati ent Clinics 2019-10-21 2019-10-21 [facility] [id number] 11:05:00 11:05:00 t [facility] 2019-10-07 2019-10-07 [facility] [id number] 11:59:00 11:59:00 t Bejou [email or web address] s - Drive [facility] Medicine Outpati ent Clinics 2019-10-07 2019-10-07 [facility] [id number] 11:57:00 11:57:00 t Bejou Melinta s - Drive [facility] Medicine Outpati ent Clinics 2019-10-02 2019-10-02 [facility] [id number] 17:24:00 17:24:00 t Bejou Melinta s - Drive [facility] Medicine Outpati ent Clinics 2019-10-01 2019-10-01 [facility] [id number] 15:30:00 15:30:00 t Bejou Melinta s - Drive [facility] Medicine Outpati ent Clinics 2019-05-28 2019-05-28 Patient Melba Macias [id number] 00:00:00 00:00:00 Outreach E Clemons [id number] [place] [id number] 2019-05-09 2019-05-09 Patient Melba Macias [id number] 00:00:00 00:00:00 Outreach E Clemons [id number] [place] [id number] Results Test Description Test Time Test Comments Results Result [facility] e Comments MR, ABDOMEN, 2019-09-24 FINAL REPORT PATIENT WITH 3 ID: [id number] 15:38:00 INDICATION:54-year-old male with decompensated cirrhosis due to [...] size without solid mass lesion or hydronephrosis. PELVIS/RETROPERITONEUM : No free fluid. No lymphadenopathy VESSELS: Main [...] MDReport Verified Date/Time: 10/06/2019 15:38:31 Reading Location: [address] [facility] 2019-[facility]-24 Interface[facility] & with 3 Ris In - 10/06/2019 - Medical IV contrast 15:38:00 3:40 PM [facility] Center REPORT INDICATION:54-year-old male with decompensated cirrhosis due [...] size without solid mass lesion or hydronephrosis. PELVIS/RETROPERITONEUM : No free fluid. No lymphadenopathy VESSELS: Main [...] MDReport Verified Date/Time: 10/06/2019 15:38:31 Reading Location: [address] O0 -Creatinine 2019-10-03 11:35:00 Test Item Value Reference Range Interpretation Comme nts POC-Creatinine (test code = 1.3 mg/dL 0.6-1.3 TESTED AT [facility]- [id number]) [facility] [address] POC-EGFR (test code = 1860) 57 mL/min/1.73M2 [id number] 11:35:00 Test Item Value Reference Range Interpretation Comments POC-CREATININE 1.3 mg/dL 0.6-1.3 TESTED AT [facility] MC-KG (ALLYSSA) (test 2457 [facility] code = 1859) [facility] 7703 0 POC-EGFR 57 mL/min/1.73M2 (BEAKER) (test code = 1860) ANG, EMBOLIZATION, EXTENSIVE - [id number] 16:43:00Reason for Exam:- >liver cancerFINAL REPORT Mesenteric angiogram and chemoembolization, 06/18/2019. History: HCC. Modality: Fluoroscopy. Sedation: Versed 1 mg and fentanyl 50 mcg was given intravenouslyfor conscious sedation. Vital signs were monitored throughout the procedure by a nurse, and remained stable. Physician intra-service time was 60 minutes. Anesthesia: Two percent Lidocaine without epinephrine. Approach: Right common femoral artery. Estimated blood loss: < 5 cc. Specimen: None. envelope press operator: Samantha. Compressor Stations Superintendent: Gaudencio. Fluoroscopy Time: 14.5 min. Dose (Ka,r): [...] was anesthetized with lidocaine. The right common fe moral artery was accessed using a 18-gauge singlewall needle and a 0.035 inch J-wire. A 5 Moroccan sheath was placed. Diagnostic mesenteric angiogram was performed to access vessel patency and exclude arterio-portal shunting. A 5 Moroccan Ramírez catheter which was used to select the SMA and celiac trunkfor DSA runs. A 3 Moroccan microcatheter was advanced coaxially through the Ramírez [...] Successful hemostasis using closure device. Signed: Juarez Singhell[facility] Verified Date/Time: 06/18/2019 16:43:18 Reading Location: [place] [address] Angio Body Reading Room COMPREHENSIVE METABOLIC [id number] 10:36:00 Test Item Value Reference Range Interpretation Comments TOTAL PROTEIN 6.5 gm/dL 6.0-8.3 (BEAKER) (test code = 770) ALBUMIN (BEAKER) 3.0 g/dL 3.5-5.0 L (test code = 1145) ALKALINE PHOSPHATASE 203 U/L 40-150 H (BEAKER) (test code = 346) BILIRUBIN TOTAL 0.8 mg/dL 0.2-1.2 (BEAKER) (test code = 377) SODIUM (BEAKER) (test 135 meq/L 136-145 L code = 381) POTASSIUM (BEAKER) 4.1 meq/L 3.5-5.1 (test code = 379) CHLORIDE (BEAKER) 106 meq/L 98-107 (test code = 382) CO2 (BEAKER) (test 24 meq/L 22-29 code = 355) BLOOD UREA NITROGEN 15 mg/dL 7-21 (BEAKER) (test code = 354) CREATININE (BEAKER) 1.17 mg/dL 0.57-1.25 (test code = 358) GLUCOSE RANDOM 221 mg/dL 70-105 H (BEAKER) (test code = 652) CALCIUM (BEAKER) 9.2 mg/dL 8.4-10.2 (test code = 697) AST (SGOT) (BEAKER) 78 U/L 5-34 H (test code = 353) ALT (SGPT) (BEAKER) 50 U/L 6-55 (test code = 347) EGFR (BEAKER) (test 64 mL/min/1.73 ESTIMA JUD GFR IS code = 1092) sq m NOT ACCURATE CREATININE CLEARANCE IN PREDICTING GLOMERULAR FILTRATION RATE . ESTIMATED GFR I S NOT APPLICABLE FOR DIALYSIS PATIEN TS. PROTHROMBIN [id number] 10:19:00 Test Item Value Reference Range Interpretation Comments PROTIME (BEAKER) (test code = 14.7 seconds 11.9-14.2 H 759) INR (BEAKER) (test code = 370) 1.2 <=5.9 Effective 02/19/2019: PT Reference Range ChangeNew: 11.9-14.2 Previous: 11.7- 14.7RECOMMENDED COUMADIN/WARFARIN INR THERAPY RANGESSTANDARD DOSE: 2.0-3.0 Includes: PROPHYLAXIS for venous thrombosis, systemic embolization; TREATMENT for venous thrombosis and/or pulmonary embolus.HIGH RISK: Target INR is2.5-3.5 for patients wiht mechanical heart valves.[id number] 10:19:00 Test Item Value Reference Range Interpretation Comments PARTIAL THROMBOPLASTIN TIME 35.6 seconds 22.5-36.0 (BEAKER) (test code = 760) CBC W/PLT COUNT & AUTO [id number] 10:16:00 Test Item Value Reference Range Interpretation Comments WHITE BLOOD CELL COUNT (BEAKER) 6.4 K/ L 3.5-10.5 (test code = 775) RED BLOOD CELL COUNT (BEAKER) 3.84 M/ L 4.63-6.08 L (test code = 761) HEMOGLOBIN (BEAKER) (test code = 8.1 GM/DL 13.7-17.5 L 410) HEMATOCRIT (BEAKER) (test code = 27.4 % 40.1-51.0 L 411) MEAN CORPUSCULAR VOLUME (BEAKER) 71.4 fL 79.0-92.2 L (test code = 753) MEAN CORPUSCULAR HEMOGLOBIN 21.1 pg 25.7-32.2 L (BEAKER) (test code = 751) MEAN CORPUSCULAR HEMOGLOBIN CONC 29.6 GM/DL 32.3-36.5 L (BEAKER) (test code = 752) RED CELL DISTRIBUTION WIDTH 16.7 % 11.6-14.4 H (BEAKER) (test code = 412) PLATELET COUNT (BEAKER) (test 130 K/CU MM 150-450 L code = 756) MEAN PLATELET VOLUME (BEAKER) 9.6 fL 9.4-12.4 (test code = 754) NUCLEATED RED BLOOD CELLS 0 /100 WBC 0-0 (BEAKER) (test code = 413) NEUTROPHILS RELATIVE PERCENT 62 % (BEAKER) (test code = 429) LYMPHOCYTES RELATIVE PERCENT 20 % (BEAKER) (test code = 430) MONOCYTES RELATIVE PERCENT 9 % (BEAKER) (test code = 431) EOSINOPHILS RELATIVE PERCENT 8 % (BEAKER) (test code = 432) BASOPHILS RELATIVE PERCENT 1 % (BEAKER) (test code = 437) NEUTROPHILS ABSOLUTE COUNT 3.97 K/ L 1.78-5.38 (BEAKER) (test code = 670) LYMPHOCYTES ABSOLUTE COUNT 1.27 K/ L 1.32-3.57 L (BEAKER) (test code = 414) MONOCYTES ABSOLUTE COUNT (BEAKER) 0.54 K/ L 0.30-0.82 (test code = 415) EOSINOPHILS ABSOLUTE COUNT 0.52 K/ L 0.04-0.54 (BEAKER) (test code = 416) BASOPHILS ABSOLUTE COUNT (BEAKER) 0.08 K/ L 0.01-0.08 (test code = 417) IMMATURE GRANULOCYTES-RELATIVE 0 % 0-1 PERCENT (BEAKER) (test code = 2801) MR, ABDOMEN, [id number] 17:19:00Include Abdominal VesselsFINAL REPORT MR of the [...] MDReport Verified Date/Time: 04/09/2019 17:19:22 Reading Location: [address] Radiology Reading Room Electronically signed by: TERESE JORDAN M.D. on04/09/2019 05:19 PMALPHA FETOPROTEIN (AFP), TUMOR [id number] 14:34:00 Test Item Value Reference Range Interpretation Comments ALPHA-FETOPROTEIN (BEAKER) (test 32.9 ng/mL <10.0 H code = 1094) COMPREHENSIVE METABOLIC [id number] 14:18:00 Test Item Value Reference Range Interpretation Comments TOTAL PROTEIN 8.2 gm/dL 6.0-8.3 (BEAKER) (test code = 770) ALBUMIN (BEAKER) 3.5 g/dL 3.5-5.0 (test code = 1145) ALKALINE PHOSPHATASE 216 U/L 40-150 H (BEAKER) (test code = 346) BILIRUBIN TOTAL 1.4 mg/dL 0.2-1.2 H (BEAKER) (test code = 377) SODIUM (BEAKER) (test 132 meq/L 136-145 L code = 381) POTASSIUM (BEAKER) 4.5 meq/L 3.5-5.1 (test code = 379) CHLORIDE (BEAKER) 102 meq/L 98-107 (test code = 382) CO2 (BEAKER) (test 24 meq/L 22-29 code = 355) BLOOD UREA NITROGEN 12 mg/dL 7-21 (BEAKER) (test code = 354) CREATININE (BEAKER) 1.16 mg/dL 0.57-1.25 (test code = 358) GLUCOSE RANDOM 249 mg/dL 70-105 H (BEAKER) (test code = 652) CALCIUM (BEAKER) 9.3 mg/dL 8.4-10.2 (test code = 697) AST (SGOT) (BEAKER) 81 U/L 5-34 H (test code = 353) ALT (SGPT) (BEAKER) 40 U/L 6-55 (test code = 347) EGFR (BEAKER) (test 65 mL/min/1.73 ESTIMA JUD GFR IS code = 1092) sq m NOT ACCURATE CREATININE CLEARANCE IN PREDICTING GLOMERULAR FILTRATION RATE . ESTIMATED GFR I S NOT APPLICABLE FOR DIALYSIS PATIEN TS. BILIRUBIN, [id number] 14:18:00 Test Item Value Reference Range Interpretation Comments BILIRUBIN DIRECT (BEAKER) (test 0.8 mg/dL 0.1-0.5 H code = 706) PROTHROMBIN [id number] 14:05:00 Test Item Value Reference Range Interpretation Comments PROTIME (BEAKER) (test code = 14.9 seconds 11.9-14.2 H 759) INR (BEAKER) (test code = 370) 1.2 <=5.9 Effective 02/19/2019: PT Reference Range ChangeNew: 11.9-14.2 Previous: 11.7- 14.7RECOMMENDED COUMADIN/WARFARIN INR THERAPY RANGESSTANDARD DOSE: 2.0-3.0 Includes: PROPHYLAXIS for venous thrombosis, systemic embolization; TREATMENT for venous thrombosis and/or pulmonary embolus.HIGH RISK: Target INR is2.5-3.5 for patients wiht mechanical heart valves.[id number] 13:58:00 Test Item Value Reference Range Interpretation Comments POC-CREATININE 0.9 mg/dL 0.6-1.3 TESTED AT [facility] 6720 (BEAKER) (test [place] code = 1859) [address] POC-EGFR (BEAKER) 88 mL/min/1.73M2 (test code = 1860) CBC W/PLT COUNT & AUTO [id number] 13:56:00 Test Item Value Reference Range Interpretation Comments WHITE BLOOD CELL COUNT (BEAKER) 5.9 K/ L 3.5-10.5 (test code = 775) RED BLOOD CELL COUNT (BEAKER) 4.75 M/ L 4.63-6.08 (test code = 761) HEMOGLOBIN (BEAKER) (test code = 10.7 GM/DL 13.7-17.5 L 410) HEMATOCRIT (BEAKER) (test code = 35.5 % 40.1-51.0 L 411) MEAN CORPUSCULAR VOLUME (BEAKER) 74.7 fL 79.0-92.2 L (test code = 753) MEAN CORPUSCULAR HEMOGLOBIN 22.5 pg 25.7-32.2 L (BEAKER) (test code = 751) MEAN CORPUSCULAR HEMOGLOBIN CONC 30.1 GM/DL 32.3-36.5 L (BEAKER) (test code = 752) RED CELL DISTRIBUTION WIDTH 18.6 % 11.6-14.4 H (BEAKER) (test code = 412) PLATELET COUNT (BEAKER) (test 157 K/CU MM 150-450 code = 756) MEAN PLATELET VOLUME (BEAKER) 9.4 fL 9.4-12.4 (test code = 754) NUCLEATED RED BLOOD CELLS 0 /100 WBC 0-0 (BEAKER) (test code = 413) NEUTROPHILS RELATIVE PERCENT 68 % (BEAKER) (test code = 429) LYMPHOCYTES RELATIVE PERCENT 19 % (BEAKER) (test code = 430) MONOCYTES RELATIVE PERCENT 9 % (BEAKER) (test code = 431) EOSINOPHILS RELATIVE PERCENT 3 % (BEAKER) (test code = 432) BASOPHILS RELATIVE PERCENT 1 % (BEAKER) (test code = 437) NEUTROPHILS ABSOLUTE COUNT 4.03 K/ L 1.78-5.38 (BEAKER) (test code = 670) LYMPHOCYTES ABSOLUTE COUNT 1.13 K/ L 1.32-3.57 L (BEAKER) (test code = 414) MONOCYTES ABSOLUTE COUNT (BEAKER) 0.52 K/ L 0.30-0.82 (test code = 415) EOSINOPHILS ABSOLUTE COUNT 0.20 K/ L 0.04-0.54 (BEAKER) (test code = 416) BASOPHILS ABSOLUTE COUNT (BEAKER) 0.05 K/ L 0.01-0.08 (test code = 417) IMMATURE GRANULOCYTES-RELATIVE 0 % 0-1 PERCENT (BEAKER) (test code = 2801) HOPE [id number] 08:05:00Reason for exam:->recurrent variceal bleed Addendum BeginsREPORT STATUS:A Addendum: Ultrasound was used to examine the veins the right neck. A patent internal jugular vein was identified and images the patent vein were saved on PACS. Real-time ultrasound guidance was then utilized for access of the internal jugular vein.Signed: Sola Camarillo MDReport Verified Date/Time: 01/20/2019 08:05:45 Reading Location: [address] Radiology Reading RoomAddendum EndsFINAL REPORT Procedure: [...] ultrasound guidance, the right internal jugular vein w as accessed percutaneously. A guidewire was advanced inferiorly [...] MDReport Verified Date/Time: 01/01/2019 17:21:51 Reading Location: [place] [address] Angio Body Reading Room POCT-GLUCOSE [id number] 08:02:00 Test Item Value Reference Range Interpretation Comments POC-GLUCOSE METER 187 mg/dL 70-110 H TESTED AT [facility] 6720 (BEAKER) (test code = TOM[place]E [place] 1538) [id number] 04:17:00 Test Item Value Reference Range Interpretation Comments PHOSPHORUS (BEAKER) (test code = 2.9 mg/dL 2.3-4.7 604) [id number] 04:17:00 Test Item Value Reference Range Interpretation Comments MAGNESIUM (BEAKER) (test code = 1.9 mg/dL 1.6-2.6 627) COMPREHENSIVE METABOLIC [id number] 04:17:00 Test Item Value Reference Range Interpretation Comments TOTAL PROTEIN 7.6 gm/dL 6.0-8.3 (BEAKER) (test code = 770) ALBUMIN (BEAKER) 3.3 g/dL 3.5-5.0 L (test code = 1145) ALKALINE PHOSPHATASE 138 U/L 40-150 (BEAKER) (test code = 346) BILIRUBIN TOTAL 1.0 mg/dL 0.2-1.2 (BEAKER) (test code = 377) SODIUM (BEAKER) (test 136 meq/L 136-145 code = 381) POTASSIUM (BEAKER) 4.0 meq/L 3.5-5.1 (test code = 379) CHLORIDE (BEAKER) 105 meq/L 98-107 (test code = 382) CO2 (BEAKER) (test 22 meq/L 22-29 code = 355) BLOOD UREA NITROGEN 14 mg/dL 7-21 (BEAKER) (test code = 354) CREATININE (BEAKER) 1.11 mg/dL 0.57-1.25 (test code = 358) GLUCOSE RANDOM 173 mg/dL 70-105 H (BEAKER) (test code = 652) CALCIUM (BEAKER) 9.1 mg/dL 8.4-10.2 (test code = 697) AST (SGOT) (BEAKER) 89 U/L 5-34 H (test code = 353) ALT (SGPT) (BEAKER) 41 U/L 6-55 (test code = 347) EGFR (BEAKER) (test 69 mL/min/1.73 ESTIMA JUD GFR IS code = 1092) sq m NOT ACCURATE CREATININE CLEARANCE IN PREDICTING GLOMERULAR FILTRATION RATE . ESTIMATED GFR I S NOT APPLICABLE FOR DIALYSIS PATIEN TS. CBC W/PLT COUNT & AUTO [id number] 03:43:00 Test Item Value Reference Range Interpretation Comments WHITE BLOOD CELL COUNT (BEAKER) 9.1 K/ L 3.5-10.5 (test code = 775) RED BLOOD CELL COUNT (BEAKER) 4.66 M/ L 4.63-6.08 (test code = 761) HEMOGLOBIN (BEAKER) (test code = 9.1 GM/DL 13.7-17.5 L 410) HEMATOCRIT (BEAKER) (test code = 31.7 % 40.1-51.0 L 411) MEAN CORPUSCULAR VOLUME (BEAKER) 68.0 fL 79.0-92.2 L (test code = 753) MEAN CORPUSCULAR HEMOGLOBIN 19.5 pg 25.7-32.2 L (BEAKER) (test code = 751) MEAN CORPUSCULAR HEMOGLOBIN CONC 28.7 GM/DL 32.3-36.5 L (BEAKER) (test code = 752) RED CELL DISTRIBUTION WIDTH 20.4 % 11.6-14.4 H (BEAKER) (test code = 412) PLATELET COUNT (BEAKER) (test 174 K/CU MM 150-450 code = 756) MEAN PLATELET VOLUME (BEAKER) 10.6 fL 9.4-12.4 (test code = 754) NUCLEATED RED BLOOD CELLS 0 /100 WBC 0-0 (BEAKER) (test code = 413) NEUTROPHILS RELATIVE PERCENT 74 % (BEAKER) (test code = 429) LYMPHOCYTES RELATIVE PERCENT 16 % (BEAKER) (test code = 430) MONOCYTES RELATIVE PERCENT 7 % (BEAKER) (test code = 431) EOSINOPHILS RELATIVE PERCENT 2 % (BEAKER) (test code = 432) BASOPHILS RELATIVE PERCENT 1 % (BEAKER) (test code = 437) NEUTROPHILS ABSOLUTE COUNT 6.70 K/ L 1.78-5.38 H (BEAKER) (test code = 670) LYMPHOCYTES ABSOLUTE COUNT 1.42 K/ L 1.32-3.57 (BEAKER) (test code = 414) MONOCYTES ABSOLUTE COUNT (BEAKER) 0.61 K/ L 0.30-0.82 (test code = 415) EOSINOPHILS ABSOLUTE COUNT 0.20 K/ L 0.04-0.54 (BEAKER) (test code = 416) BASOPHILS ABSOLUTE COUNT (BEAKER) 0.10 K/ L 0.01-0.08 H (test code = 417) IMMATURE GRANULOCYTES-RELATIVE 0 % 0-1 PERCENT (BEAKER) (test code = 2801) POCT-GLUCOSE [id number] 23:33:00 Test Item Value Reference Range Interpretation Comments POC-GLUCOSE METER 230 mg/dL 70-110 H TESTED AT [place] [address] ([facility] (test code = [facility] 1538) [id number] POCT-GLUCOSE [id number] 16:25:00 Test Item Value Reference Range Interpretation Comments POC-GLUCOSE METER 182 mg/dL 70-110 H TESTED AT [place] [address] ([facility] (test code = [facility] 1538) [address] POCT-GLUCOSE [id number] 14:02:00 Test Item Value Reference Range Interpretation Comments POC-GLUCOSE METER 146 mg/dL 70-110 H TESTED AT [place] [address] ([facility] (test code = [facility] 1538) [id number] POCT-GLUCOSE [id number] 07:49:00 Test Item Value Reference Range Interpretation Comments POC-GLUCOSE METER 143 mg/dL 70-110 H TESTED AT [place] [address] ([facility] (test code = [facility] 1538) [address] CALCIUM, [id number] 06:48:00 Test Item Value Reference Range Interpretation Comments CALCIUM IONIZED (AKER) (test 0.81 mmol/L 1.12-1.27 L code = 698) PH, BLOOD (BEAKER) (test code = 7.50 1810) CBC W/PLT COUNT & AUTO [id number] 06:41:00 Test Item Value Reference Range Interpretation Comments WHITE BLOOD CELL COUNT 4.0 K/ L 3.5-10.5 (BEAKER) (test code = 775) RED BLOOD CELL COUNT 4.14 M/ L 4.63-6.08 L (BEAKER) (test code = 761) HEMOGLOBIN (BEAKER) 8.2 GM/DL 13.7-17.5 L (test code = 410) HEMATOCRIT (BEAKER) 27.7 % 40.1-51.0 L (test code = 411) MEAN CORPUSCULAR 66.9 fL 79.0-92.2 L VOLUME (BEAKER) (test code = 753) MEAN CORPUSCULAR 19.8 pg 25.7-32.2 L HEMOGLOBIN (BEAKER) (test code = 751) MEAN CORPUSCULAR 29.6 GM/DL 32.3-36.5 L HEMOGLOBIN CONC (BEAKER) (test code = 752) RED CELL DISTRIBUTION 20.3 % 11.6-14.4 H WIDTH (BEAKER) (test code = 412) PLATELET COUNT 120 K/CU MM 150-450 L (BEAKER) (test code = 756) MEAN PLATELET VOLUME fL 9.4-12.4 Unable to report due (BEAKER) (test code = to abn ormal Platelet 754) population distribution. NUCLEATED RED BLOOD 0 /100 WBC 0-0 CELLS (BEAKER) (test code = 413) NEUTROPHILS RELATIVE 58 % PERCENT (BEAKER) (test code = 429) LYMPHOCYTES RELATIVE 25 % PERCENT (BEAKER) (test code = 430) MONOCYTES RELATIVE 8 % PERCENT (BEAKER) (test code = 431) EOSINOPHILS RELATIVE 7 % PERCENT (BEAKER) (test code = 432) BASOPHILS RELATIVE 1 % PERCENT (BEAKER) (test code = 437) NEUTROPHILS ABSOLUTE 2.36 K/ L 1.78-5.38 COUNT (BEAKER) (test code = 670) LYMPHOCYTES ABSOLUTE 1.01 K/ L 1.32-3.57 L COUNT (BEAKER) (test code = 414) MONOCYTES ABSOLUTE 0.33 K/ L 0.30-0.82 COUNT (BEAKER) (test code = 415) EOSINOPHILS ABSOLUTE 0.29 K/ L 0.04-0.54 COUNT (BEAKER) (test code = 416) BASOPHILS ABSOLUTE 0.04 K/ L 0.01-0.08 COUNT (BEAKER) (test code = 417) IMMATURE 0 % 0-1 GRANULOCYTES-RELATIVE PERCENT (BEAKER) (test code = 2801) [id number] 06:02:00 Test Item Value Reference Range Interpretation Comments PHOSPHORUS (BEAKER) (test code = 3.6 mg/dL 2.3-4.7 604) [id number] 06:02:00 Test Item Value Reference Range Interpretation Comments MAGNESIUM (BEAKER) (test code = 1.7 mg/dL 1.6-2.6 627) COMPREHENSIVE METABOLIC [id number] 06:02:00 Test Item Value Reference Range Interpretation Comments TOTAL PROTEIN 7.2 gm/dL 6.0-8.3 (BEAKER) (test code = 770) ALBUMIN (BEAKER) 3.2 g/dL 3.5-5.0 L (test code = 1145) ALKALINE PHOSPHATASE 157 U/L 40-150 H (BEAKER) (test code = 346) BILIRUBIN TOTAL 0.9 mg/dL 0.2-1.2 (BEAKER) (test code = 377) SODIUM (BEAKER) (test 137 meq/L 136-145 code = 381) POTASSIUM (BEAKER) 3.5 meq/L 3.5-5.1 (test code = 379) CHLORIDE (BEAKER) 102 meq/L 98-107 (test code = 382) CO2 (BEAKER) (test 30 meq/L 22-29 H code = 355) BLOOD UREA NITROGEN 18 mg/dL 7-21 (BEAKER) (test code = 354) CREATININE (BEAKER) 1.14 mg/dL 0.57-1.25 (test code = 358) GLUCOSE RANDOM 130 mg/dL 70-105 H (BEAKER) (test code = 652) CALCIUM (BEAKER) 8.6 mg/dL 8.4-10.2 (test code = 697) AST (SGOT) (BEAKER) 53 U/L 5-34 H (test code = 353) ALT (SGPT) (BEAKER) 25 U/L 6-55 (test code = 347) EGFR (BEAKER) (test 67 mL/min/1.73 ESTIMA JUD GFR IS code = 1092) sq m NOT ACCURATE CREATININE CLEARANCE IN PREDICTING GLOMERULAR FILTRATION RATE . ESTIMATED GFR I S NOT APPLICABLE FOR DIALYSIS PATIEN TS. POCT-GLUCOSE [id number] 23:13:00 Test Item Value Reference Range Interpretation Comments POC-GLUCOSE METER 332 mg/dL 70-110 H Notified Angela Harmon MD/TESTED (BEAKER) (test code = AT [facility] [address] 1538) [place] [address] POCT-GLUCOSE [id number] 15:30:00 Test Item Value Reference Range Interpretation Comments POC-GLUCOSE METER 191 mg/dL 70-110 H TESTED AT [facility] 6720 (BEAKER) (test code = TOMMIE R [facility] 1538) [address] CALCIUM, [id number] 06:07:00 Test Item Value Reference Range Interpretation Comments CALCIUM IONIZED (BEAKER) (test 0.93 mmol/L 1.12-1.27 L code = 698) PH, BLOOD (BEAKER) (test code = 7.53 1810) [id number] 06:06:00 Test Item Value Reference Range Interpretation Comments PHOSPHORUS (BEAKER) (test code = 3.1 mg/dL 2.3-4.7 604) [id number] 06:06:00 Test Item Value Reference Range Interpretation Comments MAGNESIUM (BEAKER) (test code = 1.8 mg/dL 1.6-2.6 627) BASIC METABOLIC [id number] 06:06:00 Test Item Value Reference Range Interpretation Comments SODIUM (BEAKER) 138 meq/L 136-145 (test code = 381) POTASSIUM (BEAKER) 3.8 meq/L 3.5-5.1 (test code = 379) CHLORIDE (BEAKER) 104 meq/L 98-107 (test code = 382) CO2 (BEAKER) (test 27 meq/L 22-29 code = 355) BLOOD UREA NITROGEN 19 mg/dL 7-21 (BEAKER) (test code = 354) CREATININE (BEAKER) 1.26 mg/dL 0.57-1.25 H (test code = 358) GLUCOSE RANDOM 191 mg/dL 70-105 H (BEAKER) (test code = 652) CALCIUM (BEAKER) 8.9 mg/dL 8.4-10.2 (test code = 697) EGFR (BEAKER) (test 59 mL/min/1.73 ESTIMA JUD GFR IS code = 1092) sq m NOT ACCURATE CREATININE CLEARANCE IN PREDICTING GLOMERULAR FILTRATION RATE . ESTIMATED GFR I S NOT APPLICABLE FOR DIALYSIS PATIEN TS. B-TYPE NATRIURETIC FACTOR (BNP)2018-12-31 05:58:00 Test Item Value Reference Range Interpretation Comments B-TYPE NATRIURETIC PEPTIDE (BEAKER) 99 pg/mL 0-100 (test code = 700) CBC W/PLT COUNT & AUTO [id number] 05:35:00 Test Item Value Reference Range Interpretation Comments WHITE BLOOD CELL COUNT 5.2 K/ L 3.5-10.5 (BEAKER) (test code = 775) RED BLOOD CELL COUNT 4.00 M/ L 4.63-6.08 L (BEAKER) (test code = 761) HEMOGLOBIN (BEAKER) 7.7 GM/DL 13.7-17.5 L (test code = 410) HEMATOCRIT (BEAKER) 27.2 % 40.1-51.0 L (test code = 411) MEAN CORPUSCULAR 68.0 fL 79.0-92.2 L VOLUME (BEAKER) (test code = 753) MEAN CORPUSCULAR 19.3 pg 25.7-32.2 L HEMOGLOBIN (BEAKER) (test code = 751) MEAN CORPUSCULAR 28.3 GM/DL 32.3-36.5 L HEMOGLOBIN CONC (BEAKER) (test code = 752) RED CELL DISTRIBUTION 20.3 % 11.6-14.4 H WIDTH (BEAKER) (test code = 412) PLATELET COUNT 107 K/CU MM 150-450 L (BEAKER) (test code = 756) MEAN PLATELET VOLUME fL 9.4-12.4 Unable to report due (BEAKER) (test code = to abn ormal Platelet 754) population distribution. NUCLEATED RED BLOOD 0 /100 WBC 0-0 CELLS (BEAKER) (test code = 413) NEUTROPHILS RELATIVE 67 % PERCENT (BEAKER) (test code = 429) LYMPHOCYTES RELATIVE 19 % PERCENT (BEAKER) (test code = 430) MONOCYTES RELATIVE 8 % PERCENT (BEAKER) (test code = 431) EOSINOPHILS RELATIVE 5 % PERCENT (BEAKER) (test code = 432) BASOPHILS RELATIVE 1 % PERCENT (BEAKER) (test code = 437) NEUTROPHILS ABSOLUTE 3.47 K/ L 1.78-5.38 COUNT (BEAKER) (test code = 670) LYMPHOCYTES ABSOLUTE 0.99 K/ L 1.32-3.57 L COUNT (BEAKER) (test code = 414) MONOCYTES ABSOLUTE 0.40 K/ L 0.30-0.82 COUNT (BEAKER) (test code = 415) EOSINOPHILS ABSOLUTE 0.24 K/ L 0.04-0.54 COUNT (BEAKER) (test code = 416) BASOPHILS ABSOLUTE 0.06 K/ L 0.01-0.08 COUNT (BEAKER) (test code = 417) IMMATURE 0 % 0-1 GRANULOCYTES-RELATIVE PERCENT (AKER) (test code = 2801) POCT-GLUCOSE [id number] 21:49:00 Test Item Value Reference Range Interpretation Comments POC-GLUCOSE METER 291 mg/dL 70-110 H TESTED AT [facility] 67 ([facility] (test code = TOMMIE Miller [facility] 1538) [address] POCT-GLUCOSE [id number] 17:31:00 Test Item Value Reference Range Interpretation Comments POC-GLUCOSE METER 247 mg/dL 70-110 H TESTED AT [place] [address] ([facility])) (test code = [facility] Angela [facility] 1538) [address] BONE AND/OR JOINT IMAGING, WHOLE [id number] 16:47:00FINAL REPORT PROCEDURE: BONE SCAN, WHOLE BODY CPT CODE: 13530 JONAS CATION: Hepatocellular carcinoma, preoperative evaluation for liver transplant PROTOCOL: 21.9 mCi of Tc-99m MDP was injected intravenously. Whole body and selected spot images were obtained approximately 3 hours later. FINDINGS: Tracer activity is focally moderately increased in the a nterior portion of the left side of the [...] periodontal abnormality. Images for comparison/correlationwere recent mandibular radiograph, abdominal MR I, and chest CT. Signed: Calderon Gordillo MDReport Verified Date/Time: 12/30/2018 16:47:37 Reading Location: [address] [address] [facility] Reading Room [facility] signed by: CALDERON GORDILLO MD on 12/30/2018 04:47 PMCT, CHEST, WITHOUT [id number] 12:26:00FINAL REPORT CT Chest without contrast History: [...] with portal hypertension. No aggressive osseous lesion. Impression:No acute or metastatic disease in the chest. Signed: Elmer Perry MDReport Verified Date/Time: 12/30/2018 12:26:39 Reading Location: [facility] Diagnostic Imaging Reading Room - [place] [address] POCT-GLUCOSE [id number] 11:39:00 Test Item Value Reference Range Interpretation Comments POC-GLUCOSE METER 250 mg/dL 70-110 H TESTED AT [place] [address] ([facility])) (test code = TOMMIE Miller [facility] 1538) [address] POCT-GLUCOSE [id number] 07:43:00 Test Item Value Reference Range Interpretation Comments POC-GLUCOSE METER 228 mg/dL 70-110 H TESTED AT [place] [address] ([facility])) (test code = [facility] 1538) [address] CALCIUM, [id number] 07:32:00 Test Item Value Reference Range Interpretation Comments CALCIUM IONIZED ([facility])) (test 0.97 mmol/L 1.12-1.27 L code = 698) PH, BLOOD ([facility])) (test code = 7.46 1810) [id number] 06:46:00 Test Item Value Reference Range Interpretation Comments PHOSPHORUS (BEAKER) (test code = 3.5 mg/dL 2.3-4.7 604) [id number] 06:46:00 Test Item Value Reference Range Interpretation Comments MAGNESIUM (BEAKER) (test code = 1.8 mg/dL 1.6-2.6 627) COMPREHENSIVE METABOLIC [id number] 06:46:00 Test Item Value Reference Range Interpretation Comments TOTAL PROTEIN 7.2 gm/dL 6.0-8.3 (BEAKER) (test code = 770) ALBUMIN (BEAKER) 3.3 g/dL 3.5-5.0 L (test code = 1145) ALKALINE PHOSPHATASE 137 U/L 40-150 (BEAKER) (test code = 346) BILIRUBIN TOTAL 0.8 mg/dL 0.2-1.2 (BEAKER) (test code = 377) SODIUM (BEAKER) (test 136 meq/L 136-145 code = 381) POTASSIUM (BEAKER) 3.7 meq/L 3.5-5.1 (test code = 379) CHLORIDE (BEAKER) 102 meq/L 98-107 (test code = 382) CO2 (BEAKER) (test 25 meq/L 22-29 code = 355) BLOOD UREA NITROGEN 14 mg/dL 7-21 (BEAKER) (test code = 354) CREATININE (BEAKER) 1.06 mg/dL 0.57-1.25 (test code = 358) GLUCOSE RANDOM 154 mg/dL 70-105 H (BEAKER) (test code = 652) CALCIUM (BEAKER) 8.8 mg/dL 8.4-10.2 (test code = 697) AST (SGOT) (BEAKER) 55 U/L 5-34 H (test code = 353) ALT (SGPT) (BEAKER) 24 U/L 6-55 (test code = 347) EGFR (BEAKER) (test 73 mL/min/1.73 ESTIMA JUD GFR IS code = 1092) sq m NOT ACCURATE CREATININE CLEARANCE IN PREDICTING GLOMERULAR FILTRATION RATE . ESTIMATED GFR I S NOT APPLICABLE FOR DIALYSIS PATIEN TS. CBC W/PLT COUNT & AUTO [id number] 06:20:00 Test Item Value Reference Range Interpretation Comments WHITE BLOOD CELL COUNT 5.1 K/ L 3.5-10.5 (BEAKER) (test code = 775) RED BLOOD CELL COUNT 4.24 M/ L 4.63-6.08 L (BEAKER) (test code = 761) HEMOGLOBIN (BEAKER) 8.4 GM/DL 13.7-17.5 L (test code = 410) HEMATOCRIT (BEAKER) 28.7 % 40.1-51.0 L (test code = 411) MEAN CORPUSCULAR 67.7 fL 79.0-92.2 L VOLUME (BEAKER) (test code = 753) MEAN CORPUSCULAR 19.8 pg 25.7-32.2 L HEMOGLOBIN (BEAKER) (test code = 751) MEAN CORPUSCULAR 29.3 GM/DL 32.3-36.5 L HEMOGLOBIN CONC (BEAKER) (test code = 752) RED CELL DISTRIBUTION 20.7 % 11.6-14.4 H WIDTH (BEAKER) (test code = 412) PLATELET COUNT 121 K/CU MM 150-450 L (BEAKER) (test code = 756) MEAN PLATELET VOLUME fL 9.4-12.4 Unable to report due (BEAKER) (test code = to abn ormal Platelet 754) population distribution. NUCLEATED RED BLOOD 0 /100 WBC 0-0 CELLS (BEAKER) (test code = 413) NEUTROPHILS RELATIVE 65 % PERCENT (BEAKER) (test code = 429) LYMPHOCYTES RELATIVE 20 % PERCENT (BEAKER) (test code = 430) MONOCYTES RELATIVE 8 % PERCENT (BEAKER) (test code = 431) EOSINOPHILS RELATIVE 5 % PERCENT (BEAKER) (test code = 432) BASOPHILS RELATIVE 1 % PERCENT (BEAKER) (test code = 437) NEUTROPHILS ABSOLUTE 3.36 K/ L 1.78-5.38 COUNT (BEAKER) (test code = 670) LYMPHOCYTES ABSOLUTE 1.02 K/ L 1.32-3.57 L COUNT (BEAKER) (test code = 414) MONOCYTES ABSOLUTE 0.42 K/ L 0.30-0.82 COUNT (BEAKER) (test code = 415) EOSINOPHILS ABSOLUTE 0.28 K/ L 0.04-0.54 COUNT (BEAKER) (test code = 416) BASOPHILS ABSOLUTE 0.05 K/ L 0.01-0.08 COUNT (BEAKER) (test code = 417) IMMATURE 0 % 0-1 GRANULOCYTES-RELATIVE PERCENT ([facility]) (test code = 2801) POCT-GLUCOSE [id number] 21:51:00 Test Item Value Reference Range Interpretation Comments POC-GLUCOSE METER 279 mg/dL 70-110 H TESTED AT [place] [address] ([facility] (test code = [facility] 1538) [id number] POCT-GLUCOSE [id number] 17:37:00 Test Item Value Reference Range Interpretation Comments POC-GLUCOSE METER 151 mg/dL 70-110 H TESTED AT [place] [address] ([facility] (test code = [facility] 1538) [id number] BASIC METABOLIC [id number] 16:15:00 Test Item Value Reference Range Interpretation Comments SODIUM (BEAKER) 138 meq/L 136-145 (test code = 381) POTASSIUM (BEAKER) 3.7 meq/L 3.5-5.1 (test code = 379) CHLORIDE (BEAKER) 102 meq/L 98-107 (test code = 382) CO2 (BEAKER) (test 27 meq/L 22-29 code = 355) BLOOD UREA NITROGEN 14 mg/dL 7-21 (BEAKER) (test code = 354) CREATININE (BEAKER) 1.25 mg/dL 0.57-1.25 (test code = 358) GLUCOSE RANDOM 129 mg/dL 70-105 H ([facility]) (test code = 652) CALCIUM (BEAKER) 9.4 mg/dL 8.4-10.2 (test code = 697) EGFR ([facility]) (test 60 mL/min/1.73 ESTIMA JUD GFR IS code = 1092) sq m NOT ACCURATE CREATININE CLEARANCE IN PREDICTING GLOMERULAR FILTRATION RATE . ESTIMATED GFR I S NOT APPLICABLE FOR DIALYSIS PATIEN TS. Call [id number] 12:24:00 Test Item Value Reference Range Interpretation Comments POC-GLUCOSE METER 358 mg/dL 70-110 H TESTED AT [place] [address] ([facility] (test code = [facility] 1538) [id number] POCT-GLUCOSE [id number] 07:53:00 Test Item Value Reference Range Interpretation Comments POC-GLUCOSE METER 173 mg/dL 70-110 H TESTED AT [place] [address] ([facility])) (test code = BERT[place] R [place] 1538) [address] POCT-GLUCOSE [id number] 22:33:00 Test Item Value Reference Range Interpretation Comments POC-GLUCOSE METER 228 mg/dL 70-110 H TESTED AT [facility] 6720 (BEAKER) (test code = TOMMIE Miller [facility] 1538) [id number] 09:58:00 Test Item Value Reference Range Interpretation Comments PHOSPHORUS (BEAKER) (test code = 3.5 mg/dL 2.3-4.7 604) [id number] 09:58:00 Test Item Value Reference Range Interpretation Comments MAGNESIUM (BEAKER) (test code = 1.9 mg/dL 1.6-2.6 627) COMPREHENSIVE METABOLIC [id number] 09:58:00 Test Item Value Reference Range Interpretation Comments TOTAL PROTEIN 7.5 gm/dL 6.0-8.3 (BEAKER) (test code = 770) ALBUMIN (BEAKER) 3.5 g/dL 3.5-5.0 (test code = 1145) ALKALINE PHOSPHATASE 129 U/L 40-150 (BEAKER) (test code = 346) BILIRUBIN TOTAL 0.9 mg/dL 0.2-1.2 (BEAKER) (test code = 377) SODIUM (BEAKER) (test 136 meq/L 136-145 code = 381) POTASSIUM (BEAKER) 3.6 meq/L 3.5-5.1 (test code = 379) CHLORIDE (BEAKER) 103 meq/L 98-107 (test code = 382) CO2 (BEAKER) (test 24 meq/L 22-29 code = 355) BLOOD UREA NITROGEN 14 mg/dL 7-21 (BEAKER) (test code = 354) CREATININE (BEAKER) 1.17 mg/dL 0.57-1.25 (test code = 358) GLUCOSE RANDOM 224 mg/dL 70-105 H (BEAKER) (test code = 652) CALCIUM (BEAKER) 9.0 mg/dL 8.4-10.2 (test code = 697) AST (SGOT) (BEAKER) 57 U/L 5-34 H (test code = 353) ALT (SGPT) (BEAKER) 25 U/L 6-55 (test code = 347) EGFR (BEAKER) (test 65 mL/min/1.73 ESTIMA JUD GFR IS code = 1092) sq m NOT ACCURATE CREATININE CLEARANCE IN PREDICTING GLOMERULAR FILTRATION RATE . ESTIMATED GFR I S NOT APPLICABLE FOR DIALYSIS PATIEN TS. POCT-GLUCOSE [id number] 08:36:00 Test Item Value Reference Range Interpretation Comments POC-GLUCOSE METER 220 mg/dL 70-110 H TESTED AT [facility] 6720 (BEAKER) (test code = TOM[place]E [place] 1538) [id number] CBC W/PLT COUNT & AUTO [id number] 07:42:00 Test Item Value Reference Range Interpretation Comments WHITE BLOOD CELL COUNT 5.4 K/ L 3.5-10.5 (BEAKER) (test code = 775) RED BLOOD CELL COUNT 4.30 M/ L 4.63-6.08 L (BEAKER) (test code = 761) HEMOGLOBIN (BEAKER) 8.6 GM/DL 13.7-17.5 L (test code = 410) HEMATOCRIT (BEAKER) 29.3 % 40.1-51.0 L (test code = 411) MEAN CORPUSCULAR 68.1 fL 79.0-92.2 L VOLUME (BEAKER) (test code = 753) MEAN CORPUSCULAR 20.0 pg 25.7-32.2 L HEMOGLOBIN (BEAKER) (test code = 751) MEAN CORPUSCULAR 29.4 GM/DL 32.3-36.5 L HEMOGLOBIN CONC (BEAKER) (test code = 752) RED CELL DISTRIBUTION 20.7 % 11.6-14.4 H WIDTH (BEAKER) (test code = 412) PLATELET COUNT 112 K/CU MM 150-450 L (BEAKER) (test code = 756) MEAN PLATELET VOLUME fL 9.4-12.4 Unable to report due (BEAKER) (test code = to abn ormal Platelet 754) population distribution. NUCLEATED RED BLOOD 0 /100 WBC 0-0 CELLS (BEAKER) (test code = 413) NEUTROPHILS RELATIVE 71 % PERCENT (BEAKER) (test code = 429) LYMPHOCYTES RELATIVE 15 % PERCENT (BEAKER) (test code = 430) MONOCYTES RELATIVE 9 % PERCENT (BEAKER) (test code = 431) EOSINOPHILS RELATIVE 5 % PERCENT (BEAKER) (test code = 432) BASOPHILS RELATIVE 1 % PERCENT (BEAKER) (test code = 437) NEUTROPHILS ABSOLUTE 3.79 K/ L 1.78-5.38 COUNT (BEAKER) (test code = 670) LYMPHOCYTES ABSOLUTE 0.79 K/ L 1.32-3.57 L COUNT (BEAKER) (test code = 414) MONOCYTES ABSOLUTE 0.48 K/ L 0.30-0.82 COUNT (BEAKER) (test code = 415) EOSINOPHILS ABSOLUTE 0.28 K/ L 0.04-0.54 COUNT (BEAKER) (test code = 416) BASOPHILS ABSOLUTE 0.04 K/ L 0.01-0.08 COUNT (BEAKER) (test code = 417) IMMATURE 0 % 0-1 GRANULOCYTES-RELATIVE PERCENT (BEAKER) (test code = 2801) CALCIUM, [id number] 06:42:00 Test Item Value Reference Range Interpretation Comments CALCIUM IONIZED (BEAKER) (test 1.07 mmol/L 1.12-1.27 L code = 698) PH, BLOOD ([facility] (test code = 7.42 1810) POCT-GLUCOSE [id number] 22:30:00 Test Item Value Reference Range Interpretation Comments POC-GLUCOSE METER 183 mg/dL 70-110 H TESTED AT [place] [address] ([facility] ([facility] (test code = [facility] 1538) [id number] POCT-GLUCOSE [id number] 18:41:00 Test Item Value Reference Range Interpretation Comments POC-GLUCOSE METER 278 mg/dL 70-110 H TESTED AT [place] [address] ([facility] ([facility] (test code = [facility] 1538) [id number] POCT-GLUCOSE [id number] 11:50:00 Test Item Value Reference Range Interpretation Comments POC-GLUCOSE METER 142 mg/dL 70-110 H TESTED AT [place] [address] ([facility] ([facility])) (test code = [facility] 1538) [id number] POCT-GLUCOSE [id number] 10:36:00 Test Item Value Reference Range Interpretation Comments POC-GLUCOSE METER 130 mg/dL 70-110 H TESTED AT [place] [address] ([facility] (test code = [facility] 1538) [id number] POCT-GLUCOSE [id number] 07:40:00 Test Item Value Reference Range Interpretation Comments POC-GLUCOSE METER 145 mg/dL 70-110 H TESTED AT [place] [address] ([facility] (test code = [facility] 1530) [id number] CBC W/PLT COUNT & AUTO [id number] 06:58:00 Test Item Value Reference Range Interpretation Comments WHITE BLOOD CELL COUNT 5.1 K/ L 3.5-10.5 (BEAKER) (test code = 775) RED BLOOD CELL COUNT 4.31 M/ L 4.63-6.08 L (BEAKER) (test code = 761) HEMOGLOBIN (BEAKER) 8.3 GM/DL 13.7-17.5 L (test code = 410) HEMATOCRIT (BEAKER) 29.6 % 40.1-51.0 L (test code = 411) MEAN CORPUSCULAR 68.7 fL 79.0-92.2 L VOLUME (BEAKER) (test code = 753) MEAN CORPUSCULAR 19.3 pg 25.7-32.2 L HEMOGLOBIN (BEAKER) (test code = 751) MEAN CORPUSCULAR 28.0 GM/DL 32.3-36.5 L HEMOGLOBIN CONC (BEAKER) (test code = 752) RED CELL DISTRIBUTION 21.1 % 11.6-14.4 H WIDTH (BEAKER) (test code = 412) PLATELET COUNT 108 K/CU MM 150-450 L (BEAKER) (test code = 756) MEAN PLATELET VOLUME fL 9.4-12.4 Unable to report due (BEAKER) (test code = to abn ormal Platelet 754) population distribution. NUCLEATED RED BLOOD 0 /100 WBC 0-0 CELLS (BEAKER) (test code = 413) NEUTROPHILS RELATIVE 65 % PERCENT (BEAKER) (test code = 429) LYMPHOCYTES RELATIVE 20 % PERCENT (BEAKER) (test code = 430) MONOCYTES RELATIVE 8 % PERCENT (BEAKER) (test code = 431) EOSINOPHILS RELATIVE 7 % PERCENT (BEAKER) (test code = 432) BASOPHILS RELATIVE 1 % PERCENT (BEAKER) (test code = 437) NEUTROPHILS ABSOLUTE 3.30 K/ L 1.78-5.38 COUNT (BEAKER) (test code = 670) LYMPHOCYTES ABSOLUTE 1.00 K/ L 1.32-3.57 L COUNT (BEAKER) (test code = 414) MONOCYTES ABSOLUTE 0.40 K/ L 0.30-0.82 COUNT (BEAKER) (test code = 415) EOSINOPHILS ABSOLUTE 0.33 K/ L 0.04-0.54 COUNT (BEAKER) (test code = 416) BASOPHILS ABSOLUTE 0.05 K/ L 0.01-0.08 COUNT (BEAKER) (test code = 417) IMMATURE 0 % 0-1 GRANULOCYTES-RELATIVE PERCENT (BEAKER) (test code = 2801) [id number] 06:56:00 Test Item Value Reference Range Interpretation Comments PHOSPHORUS (BEAKER) (test code = 3.7 mg/dL 2.3-4.7 604) [id number] 06:56:00 Test Item Value Reference Range Interpretation Comments MAGNESIUM (BEAKER) (test code = 1.6 mg/dL 1.6-2.6 627) BASIC METABOLIC [id number] 06:56:00 Test Item Value Reference Range Interpretation Comments SODIUM (BEAKER) 138 meq/L 136-145 (test code = 381) POTASSIUM (BEAKER) 3.9 meq/L 3.5-5.1 (test code = 379) CHLORIDE (BEAKER) 105 meq/L 98-107 (test code = 382) CO2 (BEAKER) (test 25 meq/L 22-29 code = 355) BLOOD UREA NITROGEN 13 mg/dL 7-21 (BEAKER) (test code = 354) CREATININE (BEAKER) 1.06 mg/dL 0.57-1.25 (test code = 358) GLUCOSE RANDOM 115 mg/dL 70-105 H (BEAKER) (test code = 652) CALCIUM (BEAKER) 8.8 mg/dL 8.4-10.2 (test code = 697) EGFR (BEAKER) (test 73 mL/min/1.73 ESTIMA JUD GFR IS code = 1092) sq m NOT ACCURATE CREATININE CLEARANCE IN PREDICTING GLOMERULAR FILTRATION RATE . ESTIMATED GFR I S NOT APPLICABLE FOR DIALYSIS PATIEN TS. CALCIUM, [id number] 06:46:00 Test Item Value Reference Range Interpretation Comments CALCIUM IONIZED (BEAKER) (test 0.89 mmol/L 1.12-1.27 L code = 698) PH, BLOOD (BEAKER) (test code = 7.41 1810) PROTHROMBIN [id number] 06:38:00 Test Item Value Reference Range Interpretation Comments PROTIME (BEAKER) (test code = 15.2 seconds 11.7-14.7 H 759) INR (BEAKER) (test code = 370) 1.2 <=5.9 RECOMMENDED COUMADIN/WARFARIN INR THERAPY RANGESSTANDARD DOSE: 2.0 - 3.0 Includes: PROPHYLAXIS forvenous thrombosis, systemic embolization; TREATMENT for venous thrombosis and/or pulmonary embolus.HIGH RISK: Target INR is 2.5-3.5 for patients with mechanical heart valves.B-TYPE NATRIURETIC FACTOR (BNP)2018-12-27 06:35:00 Test Item Value Reference Range Interpretation Comments B-TYPE NATRIURETIC PEPTIDE (ALLYSSA) 135 pg/mL 0-100 H (test code = 700) POCT-GLUCOSE [id number] 22:28:00 Test Item Value Reference Range Interpretation Comments POC-GLUCOSE METER 109 mg/dL 70-110 TESTED AT [place] [address] ([facility] ([facility])) (test code = [facility] 1538) [id number] POCT-GLUCOSE [id number] 21:07:00 Test Item Value Reference Range Interpretation Comments POC-GLUCOSE METER 91 mg/dL 70-110 TESTED AT [place] [address] ([facility])) (test code = [facility] [address] 1538) POCT-GLUCOSE [id number] 16:48:00 Test Item Value Reference Range Interpretation Comments POC-GLUCOSE METER 487 mg/dL 70-110 HH TESTED AT [place] [address] ([facility])) (test code = [facility] 1538) [id number] HOPE [id number] 12:58:00Reason for Exam:->recurrent variceal bleeding, portal hypertensionFINAL REPORT History: Portal hypertension, history of variceal bleeding. PROCEDURE: Following informed written consent, general endotracheal anesthesia was administered and the id tient's right cervical region was prepped and draped in the usual sterile manner. Access was gained the right internal jugular vein using a micropuncture needle. A 9 Moroccan sheath was placed at the access site into the jugular vein. A 5 Moroccan multipurpose catheter and wire were used to carefully select the hepatic vein and perform a hepatic venogram. Hepatic venous pressures were then performed as described below. 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 Cano, who also conferred with cardiology, the procedure was aborted due to elevated right heart pressures as detailed below. The catheter and sheath were then removed and hemostasis achieved without immediate complications. The patient was discharged to the recovery room in stable condition. FINDINGS: Hepatic venography demonstrates patent right hepatic vein. Hepatic venous and right heart pressures were measured as follows: Wedged hepatic: 26 mmHgFree hepatic: 16 mmHgRight atrial:15 mmHg IMPRESSION: 1. Elevated right atrial pressures resulting in an aborted TIPS procedure. Total fluoroscopy time: 2.5 minutes. Estimated total patient dose reported as (Ka,r): 55 mGy Signed: Kimber Diazeport Verified Date/Time: 12/26/2018 12:58:23 Reading Location: [facility] P048 Angio Body Reading Room POCT-GLUCOSE [id number] 12:50:00 Test Item Value Reference Range Interpretation Comments POC-GLUCOSE METER 124 mg/dL 70-110 H TESTED AT [facility] 6720 ([facility]) (test code = [facility] 1538) [id number] POCT-GLUCOSE [id number] 10:41:00 Test Item Value Reference Range Interpretation Comments POC-GLUCOSE METER 158 mg/dL 70-110 H TESTED AT [facility] 6720 ([facility]) (test code = [facility] 1538) [address] COMPREHENSIVE METABOLIC [id number] 07:58:00 Test Item Value Reference Range Interpretation Comments TOTAL PROTEIN 7.2 gm/dL 6.0-8.3 (BEAKER) (test code = 770) ALBUMIN (BEAKER) 3.0 g/dL 3.5-5.0 L (test code = 1145) ALKALINE PHOSPHATASE 142 U/L 40-150 (BEAKER) (test code = 346) BILIRUBIN TOTAL 0.9 mg/dL 0.2-1.2 (BEAKER) (test code = 377) SODIUM (BEAKER) (test 138 meq/L 136-145 code = 381) POTASSIUM (BEAKER) 4.4 meq/L 3.5-5.1 (test code = 379) CHLORIDE (BEAKER) 106 meq/L 98-107 (test code = 382) CO2 (BEAKER) (test 26 meq/L 22-29 code = 355) BLOOD UREA NITROGEN 10 mg/dL 7-21 (BEAKER) (test code = 354) CREATININE (BEAKER) 0.91 mg/dL 0.57-1.25 (test code = 358) GLUCOSE RANDOM 134 mg/dL 70-105 H (BEAKER) (test code = 652) CALCIUM (BEAKER) 9.3 mg/dL 8.4-10.2 (test code = 697) AST (SGOT) (BEAKER) 69 U/L 5-34 H (test code = 353) ALT (SGPT) (BEAKER) 29 U/L 6-55 (test code = 347) EGFR (BEAKER) (test 86 mL/min/1.73 ESTIMA JUD GFR IS code = 1092) sq m NOT ACCURATE CREATININE CLEARANCE IN PREDICTING GLOMERULAR FILTRATION RATE . ESTIMATED GFR I S NOT APPLICABLE FOR DIALYSIS PATIEN TS. PT/[id number] 07:58:00 Test Item Value Reference Range Interpretation Comments PROTIME (BEAKER) (test code = 15.4 seconds 11.7-14.7 H 759) INR (BEAKER) (test code = 370) 1.2 <=5.9 PARTIAL THROMBOPLASTIN TIME 35.4 seconds 22.5-36.0 (BEAKER) (test code = 760) RECOMMENDED COUMADIN/WARFARIN INR THERAPY RANGESSTANDARD DOSE: 2.0 - 3.0 Includes: PROPHYLAXIS forvenous thrombosis, systemic embolization; TREATMENT for venous thrombosis and/or pulmonary embolus.HIGH RISK: Target INR is 2.5-3.5 for patients with mechanical heart valves.CBC W/PLT COUNT & AUTO DIFFERENTIAL 2018-12-26 07:52:00 Test Item Value Reference Range Interpretation Comments WHITE BLOOD CELL COUNT (BEAKER) 4.6 K/ L 3.5-10.5 (test code = 775) RED BLOOD CELL COUNT (BEAKER) 4.35 M/ L 4.63-6.08 L (test code = 761) HEMOGLOBIN (BEAKER) (test code = 8.6 GM/DL 13.7-17.5 L 410) HEMATOCRIT (BEAKER) (test code = 30.1 % 40.1-51.0 L 411) MEAN CORPUSCULAR VOLUME (BEAKER) 69.2 fL 79.0-92.2 L (test code = 753) MEAN CORPUSCULAR HEMOGLOBIN 19.8 pg 25.7-32.2 L (BEAKER) (test code = 751) MEAN CORPUSCULAR HEMOGLOBIN CONC 28.6 GM/DL 32.3-36.5 L (BEAKER) (test code = 752) RED CELL DISTRIBUTION WIDTH 21.3 % 11.6-14.4 H (BEAKER) (test code = 412) PLATELET COUNT (BEAKER) (test 110 K/CU MM 150-450 L code = 756) MEAN PLATELET VOLUME (BEAKER) 10.1 fL 9.4-12.4 (test code = 754) NUCLEATED RED BLOOD CELLS 0 /100 WBC 0-0 (BEAKER) (test code = 413) NEUTROPHILS RELATIVE PERCENT 66 % (BEAKER) (test code = 429) LYMPHOCYTES RELATIVE PERCENT 19 % (BEAKER) (test code = 430) MONOCYTES RELATIVE PERCENT 8 % (BEAKER) (test code = 431) EOSINOPHILS RELATIVE PERCENT 6 % (BEAKER) (test code = 432) BASOPHILS RELATIVE PERCENT 1 % (BEAKER) (test code = 437) NEUTROPHILS ABSOLUTE COUNT 3.03 K/ L 1.78-5.38 (BEAKER) (test code = 670) LYMPHOCYTES ABSOLUTE COUNT 0.88 K/ L 1.32-3.57 L (BEAKER) (test code = 414) MONOCYTES ABSOLUTE COUNT (BEAKER) 0.37 K/ L 0.30-0.82 (test code = 415) EOSINOPHILS ABSOLUTE COUNT 0.25 K/ L 0.04-0.54 (BEAKER) (test code = 416) BASOPHILS ABSOLUTE COUNT (BEAKER) 0.04 K/ L 0.01-0.08 (test code = 417) IMMATURE GRANULOCYTES-RELATIVE 0 % 0-1 PERCENT (BEAKER) (test code = 2801) POCT-GLUCOSE [id number] 00:26:00 Test Item Value Reference Range Interpretation Comments POC-GLUCOSE METER 161 mg/dL 70-110 H TESTED AT [facility] 6720 (BEAKER) (test code = [place] 1538) [id number] URINALYSIS W/ [id number] 17:35:00 Test Item Value Reference Range Interpretation Comments COLOR (BEAKER) (test code = Light Yellow 470) CLARITY (BEAKER) (test code = Clear 469) SPECIFIC GRAVITY UA (BEAKER) 1.008 1.001-1.035 (test code = 468) PH UA (BEAKER) (test code = 7.5 5.0-8.0 467) PROTEIN UA (BEAKER) (test code 30 mg/dL Negative A = 464) GLUCOSE UA (BEAKER) (test code 30 mg/dL Negative A = 365) KETONES UA (BEAKER) (test code Negative Negative = 371) BILIRUBIN UA (BEAKER) (test Negative Negative code = 462) BLOOD UA (BEAKER) (test code = Trace Negative A 461) NITRITE UA (BEAKER) (test code Negative Negative = 465) LEUKOCYTE ESTERASE UA (BEAKER) Negative Negative (test code = 466) UROBILINOGEN UA (BEAKER) (test 0.2 mg/dL 0.2-1.0 code = 463) RBC UA (BEAKER) (test code = 1 /HPF 519) WBC UA (BEAKER) (test code = 1 /HPF 520) SOURCE(BEAKER) (test code = Urine, Voided 9247) POCT-GLUCOSE [id number] 16:55:00 Test Item Value Reference Range Interpretation Comments POC-GLUCOSE METER 234 mg/dL 70-110 H TESTED AT [place] [address] ([facility] (test code = [facility] 1538) [id number] POCT-GLUCOSE [id number] 12:09:00 Test Item Value Reference Range Interpretation Comments POC-GLUCOSE METER 199 mg/dL 70-110 H TESTED AT [place] [address] ([facility] (test code = [facility] 1538) [id number] POCT-GLUCOSE [id number] 07:58:00 Test Item Value Reference Range Interpretation Comments POC-GLUCOSE METER 221 mg/dL 70-110 H TESTED AT [place] [address] ([facility])) (test code = [facility] 1538) [id number] POCT-GLUCOSE [id number] 22:49:00 Test Item Value Reference Range Interpretation Comments POC-GLUCOSE METER 210 mg/dL 70-110 H TESTED AT [place] [address] ([facility] (test code = [facility] 1538) [id number] POCT-GLUCOSE [id number] 14:45:00 Test Item Value Reference Range Interpretation Comments POC-GLUCOSE METER 128 mg/dL 70-110 H TESTED AT [place] [address] ([facility] (test code = [facility] 1538) [id number] POCT-GLUCOSE [id number] 12:03:00 Test Item Value Reference Range Interpretation Comments POC-GLUCOSE METER 136 mg/dL 70-110 H TESTED AT [facility] 6720 (BEAKER) (test code = [place] 1538) [address] COMPREHENSIVE METABOLIC [id number] 09:07:00 Test Item Value Reference Range Interpretation Comments TOTAL PROTEIN 6.9 gm/dL 6.0-8.3 Specimen sligh tly (BEAKER) (test code = hemoly zed 770) ALBUMIN (BEAKER) 2.7 g/dL 3.5-5.0 L Specimen sl ightly (test code = 1145) hemolyzed ALKALINE PHOSPHATASE 136 U/L 40-150 (BEAKER) (test code = 346) BILIRUBIN TOTAL 1.1 mg/dL 0.2-1.2 Specimen sli ghtly (BEAKER) (test code = hemoly zed 377) SODIUM (BEAKER) (test 135 meq/L 136-145 L code = 381) POTASSIUM (BEAKER) 4.4 meq/L 3.5-5.1 Specimen slightly (test code = 379) hemolyzed CHLORIDE (BEAKER) 106 meq/L 98-107 (test code = 382) CO2 (BEAKER) (test 26 meq/L 22-29 code = 355) BLOOD UREA NITROGEN 7 mg/dL 7-21 (BEAKER) (test code = 354) CREATININE (BEAKER) 0.85 mg/dL 0.57-1.25 Specimen slightly (test code = 358) hemolyzed GLUCOSE RANDOM 118 mg/dL 70-105 H (BEAKER) (test code = 652) CALCIUM (BEAKER) 8.8 mg/dL 8.4-10.2 (test code = 697) AST (SGOT) (BEAKER) 69 U/L 5-34 H Specimen slightly (test code = 353) hemolyzed ALT (SGPT) (BEAKER) 28 U/L 6-55 Specimen slightly (test code = 347) hemolyzed EGFR (BEAKER) (test 94 mL/min/1.73 ESTIMA JUD GFR IS code = 1092) sq m NOT ACCURATE CREATININE CLEARANCE IN PREDICTING GLOMERULAR FILTRATION RATE . ESTIMATED GFR I S NOT APPLICABLE FOR DIALYSIS PATIEN TS. CBC W/PLT COUNT & AUTO [id number] 08:37:00 Test Item Value Reference Range Interpretation Comments WHITE BLOOD CELL COUNT 4.4 K/ L 3.5-10.5 (BEAKER) (test code = 775) RED BLOOD CELL COUNT 4.31 M/ L 4.63-6.08 L (BEAKER) (test code = 761) HEMOGLOBIN (BEAKER) 8.4 GM/DL 13.7-17.5 L (test code = 410) HEMATOCRIT (BEAKER) 30.2 % 40.1-51.0 L (test code = 411) MEAN CORPUSCULAR 70.1 fL 79.0-92.2 L VOLUME (BEAKER) (test code = 753) MEAN CORPUSCULAR 19.5 pg 25.7-32.2 L HEMOGLOBIN (BEAKER) (test code = 751) MEAN CORPUSCULAR 27.8 GM/DL 32.3-36.5 L HEMOGLOBIN CONC (BEAKER) (test code = 752) RED CELL DISTRIBUTION 21.9 % 11.6-14.4 H WIDTH (BEAKER) (test code = 412) PLATELET COUNT 114 K/CU MM 150-450 L (BEAKER) (test code = 756) MEAN PLATELET VOLUME fL 9.4-12.4 Unable to report due (BEAKER) (test code = to abn ormal Platelet 754) population distribution. NUCLEATED RED BLOOD 0 /100 WBC 0-0 CELLS (BEAKER) (test code = 413) NEUTROPHILS RELATIVE 62 % PERCENT (BEAKER) (test code = 429) LYMPHOCYTES RELATIVE 22 % PERCENT (BEAKER) (test code = 430) MONOCYTES RELATIVE 8 % PERCENT (BEAKER) (test code = 431) EOSINOPHILS RELATIVE 6 % PERCENT (BEAKER) (test code = 432) BASOPHILS RELATIVE 1 % PERCENT (BEAKER) (test code = 437) NEUTROPHILS ABSOLUTE 2.75 K/ L 1.78-5.38 COUNT (BEAKER) (test code = 670) LYMPHOCYTES ABSOLUTE 0.98 K/ L 1.32-3.57 L COUNT (BEAKER) (test code = 414) MONOCYTES ABSOLUTE 0.34 K/ L 0.30-0.82 COUNT (BEAKER) (test code = 415) EOSINOPHILS ABSOLUTE 0.28 K/ L 0.04-0.54 COUNT (BEAKER) (test code = 416) BASOPHILS ABSOLUTE 0.06 K/ L 0.01-0.08 COUNT ([facility] (test code = 417) IMMATURE 1 % 0-1 GRANULOCYTES-RELATIVE PERCENT ([facility])) (test code = 2801) POCT-GLUCOSE [id number] 08:07:00 Test Item Value Reference Range Interpretation Comments POC-GLUCOSE METER 144 mg/dL 70-110 H TESTED AT [place] [address] ([facility])) (test code = [facility] 1538) [id number] 23:43:00 Test Item Value Reference Range Interpretation Comments MAGNESIUM ([facility] (test code = 1.7 mg/dL 1.6-2.6 627) POCT-GLUCOSE [id number] 22:22:00 Test Item Value Reference Range Interpretation Comments POC-GLUCOSE METER 211 mg/dL 70-110 H TESTED AT [place] [address] ([facility] (test code = TOMMIE Miller [facility] 1538) [id number] POCT-GLUCOSE [id number] 17:13:00 Test Item Value Reference Range Interpretation Comments POC-GLUCOSE METER 202 mg/dL 70-110 H TESTED AT [place] [address] ([facility] (test code = TOMMIE Miller [facility] 1538) [id number] 16:14:00 Test Item Value Reference Range Interpretation Comments T3 TOTAL ([facility] (test code = 656) 108 ng/dL 48-159 POCT-GLUCOSE [id number] 13:49:00 Test Item Value Reference Range Interpretation Comments POC-GLUCOSE METER 303 mg/dL 70-110 H TESTED AT [place] [address] ([facility] (test code = TOMMIE Miller [facility] 1538) [id number] POCT-GLUCOSE [id number] 12:15:00 Test Item Value Reference Range Interpretation Comments POC-GLUCOSE METER 304 mg/dL 70-110 H Notified R [place] NIX/TESTED ([facility] (test code = AT [address] 1538) [facility] [address] ANTI-MITOCHONDRIAL AB, REFLEX TO [id number] 08:35:00 Test Item Value Reference Range Interpretation Comments SCAN RESULT (test code = 5479646) POCT-GLUCOSE [id number] 08:08:00 Test Item Value Reference Range Interpretation Comments POC-GLUCOSE METER 146 mg/dL 70-110 H TESTED AT [facility] 6720 (BEAKER) (test code = [place] 1538) [id number] HEPATIC FUNCTION [id number] 06:32:00 Test Item Value Reference Range Interpretation Comments TOTAL PROTEIN (BEAKER) (test code = 6.5 gm/dL 6.0-8.3 770) ALBUMIN (BEAKER) (test code = 1145) 2.7 g/dL 3.5-5.0 L BILIRUBIN TOTAL (BEAKER) (test code 0.8 mg/dL 0.2-1.2 = 377) BILIRUBIN DIRECT (BEAKER) (test 0.6 mg/dL 0.1-0.5 H code = 706) ALKALINE PHOSPHATASE (BEAKER) (test 141 U/L 40-150 code = 346) AST (SGOT) (BEAKER) (test code = 66 U/L 5-34 H 353) ALT (SGPT) (BEAKER) (test code = 27 U/L 6-55 347) BASIC METABOLIC [id number] 06:32:00 Test Item Value Reference Range Interpretation Comments SODIUM (BEAKER) 137 meq/L 136-145 (test code = 381) POTASSIUM (BEAKER) 4.0 meq/L 3.5-5.1 (test code = 379) CHLORIDE (BEAKER) 106 meq/L 98-107 (test code = 382) CO2 (BEAKER) (test 26 meq/L 22-29 code = 355) BLOOD UREA NITROGEN 7 mg/dL 7-21 (BEAKER) (test code = 354) CREATININE (BEAKER) 0.81 mg/dL 0.57-1.25 (test code = 358) GLUCOSE RANDOM 134 mg/dL 70-105 H (BEAKER) (test code = 652) CALCIUM (BEAKER) 8.6 mg/dL 8.4-10.2 (test code = 697) EGFR (BEAKER) (test 99 mL/min/1.73 ESTIMA JUD GFR IS code = 1092) sq m NOT ACCURATE CREATININE CLEARANCE IN PREDICTING GLOMERULAR FILTRATION RATE . ESTIMATED GFR I S NOT APPLICABLE FOR DIALYSIS PATIEN TS. CBC (HEMOGRAM ONLY)2018-12-23 05:34:00 Test Item Value Reference Range Interpretation Comments WHITE BLOOD CELL COUNT (BEAKER) 4.4 K/ L 3.5-10.5 (test code = 775) RED BLOOD CELL COUNT (BEAKER) 4.11 M/ L 4.63-6.08 L (test code = 761) HEMOGLOBIN (BEAKER) (test code = 8.0 GM/DL 13.7-17.5 L 410) HEMATOCRIT (BEAKER) (test code = 28.2 % 40.1-51.0 L 411) MEAN CORPUSCULAR VOLUME (BEAKER) 68.6 fL 79.0-92.2 L (test code = 753) MEAN CORPUSCULAR HEMOGLOBIN 19.5 pg 25.7-32.2 L (BEAKER) (test code = 751) MEAN CORPUSCULAR HEMOGLOBIN CONC 28.4 GM/DL 32.3-36.5 L (BEAKER) (test code = 752) RED CELL DISTRIBUTION WIDTH 21.5 % 11.6-14.4 H (BEAKER) (test code = 412) PLATELET COUNT (BEAKER) (test 121 K/CU MM 150-450 L code = 756) MEAN PLATELET VOLUME (BEAKER) 10.2 fL 9.4-12.4 (test code = 754) NUCLEATED RED BLOOD CELLS 0 /100 WBC 0-0 (BEAKER) (test code = 413) PROTHROMBIN [id number] 05:27:00 Test Item Value Reference Range Interpretation Comments PROTIME (BEAKER) (test code = 15.2 seconds 11.7-14.7 H 759) INR (BEAKER) (test code = 370) 1.2 <=5.9 RECOMMENDED COUMADIN/WARFARIN INR THERAPY RANGESSTANDARD DOSE: 2.0 - 3.0 Includes: PROPHYLAXIS forvenous thrombosis, systemic embolization; TREATMENT for venous thrombosis and/or pulmonary embolus.HIGH RISK: Target INR is 2.5-3.5 for patients with mechanical heart valves.POCT-GLUCOSE [id number] 23:11:00 Test Item Value Reference Range Interpretation Comments POC-GLUCOSE METER 224 mg/dL 70-110 H TESTED AT [facility] [address] ([facility] (test code = [place] 1538) [id number] POCT-GLUCOSE [id number] 16:52:00 Test Item Value Reference Range Interpretation Comments POC-GLUCOSE METER 250 mg/dL 70-110 H TESTED AT [facility] [address] (BEAKER) (test code = [facility] 1538) [id number] POCT-GLUCOSE [id number] 11:56:00 Test Item Value Reference Range Interpretation Comments POC-GLUCOSE METER 310 mg/dL 70-110 H TESTED AT [facility] [address] ([facility] (test code = [facility] 1538) [id number] POCT-GLUCOSE [id number] 07:50:00 Test Item Value Reference Range Interpretation Comments POC-GLUCOSE METER 267 mg/dL 70-110 H TESTED AT [place] [address] ([facility]) (test code = [facility] 1538) [id number] COMPREHENSIVE METABOLIC [id number] 05:05:00 Test Item Value Reference Range Interpretation Comments TOTAL PROTEIN 6.3 gm/dL 6.0-8.3 (BEAKER) (test code = 770) ALBUMIN (BEAKER) 2.6 g/dL 3.5-5.0 L (test code = 1145) ALKALINE PHOSPHATASE 112 U/L 40-150 (BEAKER) (test code = 346) BILIRUBIN TOTAL 0.9 mg/dL 0.2-1.2 (BEAKER) (test code = 377) SODIUM (BEAKER) (test 138 meq/L 136-145 code = 381) POTASSIUM (BEAKER) 3.9 meq/L 3.5-5.1 (test code = 379) CHLORIDE (BEAKER) 108 meq/L 98-107 H (test code = 382) CO2 (BEAKER) (test 25 meq/L 22-29 code = 355) BLOOD UREA NITROGEN 6 mg/dL 7-21 L (BEAKER) (test code = 354) CREATININE (BEAKER) 0.82 mg/dL 0.57-1.25 (test code = 358) GLUCOSE RANDOM 146 mg/dL 70-105 H (BEAKER) (test code = 652) CALCIUM (BEAKER) 8.8 mg/dL 8.4-10.2 (test code = 697) AST (SGOT) (BEAKER) 73 U/L 5-34 H (test code = 353) ALT (SGPT) (BEAKER) 25 U/L 6-55 (test code = 347) EGFR (BEAKER) (test 98 mL/min/1.73 ESTIMA JUD GFR IS code = 1092) sq m NOT ACCURATE CREATININE CLEARANCE IN PREDICTING GLOMERULAR FILTRATION RATE . ESTIMATED GFR I S NOT APPLICABLE FOR DIALYSIS PATIEN TS. POCT-GLUCOSE [id number] 22:34:00 Test Item Value Reference Range Interpretation Comments POC-GLUCOSE METER 186 mg/dL 70-110 H TESTED AT [place] [address] ([facility] (test code = TOMMIE Miller [facility] 1538) [id number] POCT-GLUCOSE [id number] 18:03:00 Test Item Value Reference Range Interpretation Comments POC-GLUCOSE METER 206 mg/dL 70-110 H TESTED AT [place] [address] ([facility] (test code = TOMMIE Miller [facility] 1538) [address] RAD, MANDIBLE, MIN 4 [id number] 17:16:00Reason for exam:->liver transplant evalShould this be performed at the bedside?->YesFINAL REPORT EXAMINATION: Mandible series, 4 views CLINICAL INDICATION: Livertransplant candidate. Evaluate for odontogenic infection. IMPRESSION: Although odontogenic infectioncannot be excluded, there is no definite evidence of periapical radiolucency along the tooth roots. Paranasal sinuses and mastoid air cells appear relatively well pneumatized. Orbits are unremarkable. If there is persistent clinical concern, consider a maxillofacial CT. Signed: Anita Mauricio Verified Date/Time: 12/21/2018 17:16:26 Reading Location: [address] Reading Room POCT-GLUCOSE METER 2018-12-21 11:42:00 Test Item Value Reference Range Interpretation Comments POC-GLUCOSE METER 305 mg/dL 70-110 H Notified Angela Harmon MD/TESTED ([facility] (test code = AT [facility] [address] [place] [address] 1538) [facility] [id number] POCT-GLUCOSE [id number] 08:14:00 Test Item Value Reference Range Interpretation Comments POC-GLUCOSE METER 288 mg/dL 70-110 H TESTED AT [place] [address] ([facility] (test code = TOMMIE Miller [facility] 1538) [id number] POCT-GLUCOSE [id number] 23:29:00 Test Item Value Reference Range Interpretation Comments POC-GLUCOSE METER 134 mg/dL 70-110 H TESTED AT [place] [address] ([facility])) (test code = [facility] 1538) [address] POCT-GLUCOSE [id number] 18:42:00 Test Item Value Reference Range Interpretation Comments POC-GLUCOSE METER 357 mg/dL 70-110 H TESTED AT [facility] 6720 (ALLYSSA) (test code = [facility] 1538) [address] CRYPTOCOCCAL [id number] 11:32:00 Test Item Value Reference Range Interpretation Comments CRYPTOCOCCAL ANTIGEN, SERUM Negative Negative, Interference ([facility]) (test code = 1828) [id number] 11:30:00 Test Item Value Reference Range Interpretation Comments RPR SCREEN ([facility]) (test code = Nonreactive Nonreactive 420) HEMOGLOBIN [id number] 10:23:00 Test Item Value Reference Range Interpretation Comments HEMOGLOBIN A1C (ALLYSSA) (test code = 6.7 % 4.3-6.1 H 368) CYTOMEGALOVIRUS ANTIBODY, [id number] 09:29:00 Test Item Value Reference Range Interpretation Comments CYTOMEGALOVIRUS, IGG (JAXAKER) Positive Negative, Equivocal A (test code = 3429) CMV IgG Result Interpretation: </= 0.8 Al Negative 0.9-1.0 Al Equivocal >/=1.1 Al PositiveCYTOMEGALOVIRUS ANTIBODY, [id number] 09:29:00 Test Item Value Reference Range Interpretation Comments CYTOMEGALOVIRUS IGM ANTIBODY Negative Negative, Equivocal ([employer] (NOOM)) (test code = 3437) CMV IgM Result Interpretation: </= 0.8 Al Negative 0.9-1.0 Al Equivocal >/= 1.1 Al PositiveEBV ANTIBODY, [id number] 09:29:00 Test Item Value Reference Range Interpretation Comments JAQUELINE MEDRANO VIRAL CAPSID Positive Negative, Equivocal A ANTIGEN IGG ([employer]) (test code = 3415) Jaqueline Medrano Viral Capsid Antigen IgG Result Interpretation: </= 0.8 Al Negative 0.9-1.0 Al Equivocal >/= 1.1 Al PositiveEBV ANTIBODY, IGM 2018-12-20 09:29:00 Test Item Value Reference Range Interpretation Comments JAQUELINE MEDRANO VIRAL CAPSID Negative Negative, Equivocal ANTIGEN IGM ([employer]) (test code = 3418) Jaqueline Medrano Viral Capsid Antigen IgM Result Interpretation: </= 0.8 Al Negative 0.9-1.0 Al Equivocal >/= 1.1 Al PositivePOCT-GLUCOSE METER 2018-12-20 07:53:00 Test Item Value Reference Range Interpretation Comments POC-GLUCOSE METER 168 mg/dL 70-110 H TESTED AT [facility] 6720 (BEAKER) (test code = TOMMIE [place] 1538) [id number] CBC (HEMOGRAM ONLY)2018-12-20 07:02:00 Test Item Value Reference Range Interpretation Comments WHITE BLOOD CELL COUNT (BEAKER) 4.7 K/ L 3.5-10.5 (test code = 775) RED BLOOD CELL COUNT (BEAKER) 4.09 M/ L 4.63-6.08 L (test code = 761) HEMOGLOBIN (BEAKER) (test code = 8.1 GM/DL 13.7-17.5 L 410) HEMATOCRIT (BEAKER) (test code = 28.3 % 40.1-51.0 L 411) MEAN CORPUSCULAR VOLUME (BEAKER) 69.2 fL 79.0-92.2 L (test code = 753) MEAN CORPUSCULAR HEMOGLOBIN 19.8 pg 25.7-32.2 L (BEAKER) (test code = 751) MEAN CORPUSCULAR HEMOGLOBIN CONC 28.6 GM/DL 32.3-36.5 L (BEAKER) (test code = 752) RED CELL DISTRIBUTION WIDTH 21.8 % 11.6-14.4 H (BEAKER) (test code = 412) PLATELET COUNT (BEAKER) (test 121 K/CU MM 150-450 L code = 756) MEAN PLATELET VOLUME (BEAKER) 10.6 fL 9.4-12.4 (test code = 754) NUCLEATED RED BLOOD CELLS 0 /100 WBC 0-0 (BEAKER) (test code = 413) CALCIUM, [id number] 06:36:00 Test Item Value Reference Range Interpretation Comments CALCIUM IONIZED (BEAKER) (test 1.07 mmol/L 1.12-1.27 L code = 698) PH, BLOOD (BEAKER) (test code = 7.41 1810) HEPATIC FUNCTION [id number] 06:32:00 Test Item Value Reference Range Interpretation Comments TOTAL PROTEIN (BEAKER) (test code = 6.4 gm/dL 6.0-8.3 770) ALBUMIN (BEAKER) (test code = 1145) 2.6 g/dL 3.5-5.0 L BILIRUBIN TOTAL (BEAKER) (test code 0.6 mg/dL 0.2-1.2 = 377) BILIRUBIN DIRECT (BEAKER) (test 0.4 mg/dL 0.1-0.5 code = 706) ALKALINE PHOSPHATASE (BEAKER) (test 127 U/L 40-150 code = 346) AST (SGOT) (BEAKER) (test code = 54 U/L 5-34 H 353) ALT (SGPT) (BEAKER) (test code = 22 U/L 6-55 347) BASIC METABOLIC [id number] 06:32:00 Test Item Value Reference Range Interpretation Comments SODIUM (BEAKER) 138 meq/L 136-145 (test code = 381) POTASSIUM (BEAKER) 3.8 meq/L 3.5-5.1 (test code = 379) CHLORIDE (BEAKER) 104 meq/L 98-107 (test code = 382) CO2 (BEAKER) (test 26 meq/L 22-29 code = 355) BLOOD UREA NITROGEN 8 mg/dL 7-21 (BEAKER) (test code = 354) CREATININE (BEAKER) 0.85 mg/dL 0.57-1.25 (test code = 358) GLUCOSE RANDOM 167 mg/dL 70-105 H (BEAKER) (test code = 652) CALCIUM (BEAKER) 8.3 mg/dL 8.4-10.2 L (test code = 697) EGFR (BEAKER) (test 94 mL/min/1.73 ESTIMA JUD GFR IS code = 1092) sq m NOT ACCURATE CREATININE CLEARANCE IN PREDICTING GLOMERULAR FILTRATION RATE . ESTIMATED GFR I S NOT APPLICABLE FOR DIALYSIS PATIEN TS. POCT-GLUCOSE [id number] 23:08:00 Test Item Value Reference Range Interpretation Comments POC-GLUCOSE METER 284 mg/dL 70-110 H TESTED AT [facility] 6720 ([facility]) (test code = TOMMIE Miller [facility] 1538) [address] POCT-GLUCOSE [id number] 20:20:00 Test Item Value Reference Range Interpretation Comments POC-GLUCOSE METER 185 mg/dL 70-110 H TESTED AT [facility] 6720 ([facility]) (test code = [facility] Angela [place] 1538) [address] BLOOD GAS, [id number] 20:05:00 Test Item Value Reference Range Interpretation Comments PH ARTERIAL (BEAKER) (test code = 7.48 7.35-7.45 H 383) PCO2 ARTERIAL (BEAKER) (test code 38 mmHg 35-45 = 384) PO2 ARTERIAL (BEAKER) (test code = 83 mmHg 80-90 385) O2 SATURATION ARTERIAL (BEAKER) 97.1 % 96.0-97.0 H (test code = 386) HCO3 ARTERIAL (BEAKER) (test code 28 mmol/L 21-29 = 388) BASE EXCESS ARTERIAL (BEAKER) 4.0 mmol/L -2.0-3.0 H (test code = 387) PATIENT TEMPERATURE (BEAKER) (test 36.3 C code = 1818) FIO2 (BEAKER) (test code = 1819) 21.0 % HEPATITIS B SURFACE [id number] 19:10:00 Test Item Value Reference Range Interpretation Comments HEPATITIS B SURFACE ANTIBODY < mIU/mL <8.0 (BEAKER) (test code = 647) VITAMIN D, [id number] 19:08:00 Test Item Value Reference Range Interpretation Comments VITAMIN D 25-OH (BEAKER) (test code 6.6 ng/mL 6.6-49.9 = 2764) Effective 07/04/2017: Reference Range ChangeNew: 6.6-49.9 ng/mL Previous: 13.0-47.8 ng/mLRecommended Vitamin D Target Range: 30.0-40.0 ng/mL CARCINOEMBRYONIC ANTIGEN (CEA)2018-12-19 19:07:00 Test Item Value Reference Range Interpretation Comments CARCINOEMBRYONIC ANTIGEN (BEAKER) 1.9 ng/mL 0.0-5.0 (test code = 685) HEPATITIS B SURFACE [id number] 19:07:00 Test Item Value Reference Range Interpretation Comments HEPATITIS B SURFACE ANTIGEN (2) Nonreactive Nonreactive (BEAKER) (test code = 2585) HEPATITIS B CORE ANTIBODY, [id number] 19:07:00 Test Item Value Reference Range Interpretation Comments HEPATITIS B CORE IGM ANTIBODY Nonreactive Nonreactive (BEAKER) (test code = 645) HEPATITIS A ANTIBODY, [id number] 19:07:00 Test Item Value Reference Range Interpretation Comments HEPATITIS A IGM ANTIBODY (BEAKER) Nonreactive Nonreactive (test code = 498) [id number] 18:59:00 Test Item Value Reference Range Interpretation Comments PROSTATE SPECIFIC ANTIGEN (BEAKER) 0.5 ng/mL 0.0-4.0 (test code = 844) HIV-1 ANTIGEN WITH HIV-1/2 [id number] 18:59:00 Test Item Value Reference Range Interpretation Comments HIV-1 ANTIGEN WITH HIV 1\T\2 Nonreactive Nonreactive ANTIBODY (2) (BEAKER) (test code = 2586) [id number] 18:58:00 Test Item Value Reference Range Interpretation Comments TRANSFERRIN (BEAKER) (test code = 288 mg/dL 174-382 541) [id number] 18:22:00 Test Item Value Reference Range Interpretation Comments THYROID STIMULATING HORMONE 5.24 uIU/mL 0.35-4.94 H (BEAKER) (test code = 772) [id number] 18:19:00 Test Item Value Reference Range Interpretation Comments T4 TOTAL (BEAKER) (test code = 895) 6.9 ug/dL 4.9-11.7 URIC [id number] 18:01:00 Test Item Value Reference Range Interpretation Comments URIC ACID (BEAKER) (test code = 4.7 mg/dL 2.6-7.2 773) [id number] 18:01:00 Test Item Value Reference Range Interpretation Comments MAGNESIUM (BEAKER) (test code = 1.7 mg/dL 1.6-2.6 627) [id number] 18:01:00 Test Item Value Reference Range Interpretation Comments PHOSPHORUS (BEAKER) (test code = 2.6 mg/dL 2.3-4.7 604) LIPID [id number] 18:01:00 Test Item Value Reference Range Interpretation Comments TRIGLYCERIDES (BEAKER) (test code = 47 mg/dL 540) CHOLESTEROL (BEAKER) (test code = 104 mg/dL 631) HDL CHOLESTEROL (BEAKER) (test code 33 mg/dL = 976) LDL CHOLESTEROL CALCULATED (BEAKER) 62 mg/dL (test code = 633) Triglyceride Reference Range: Low Risk <150 Borderline 150-199 High Risk 200-499 Very High Risk >=500Cholesterol Reference Range: Low Risk <200 Borderline 200-239 High Risk >240HDL Cholesterol Reference Range: Low Risk >=60 High Risk <40LDL Cholesterol Reference Range: Optimal <100 Near Optimal 100-129 Borderline 130-159 High 160-189 Very High >=190GAMMA GLUTAMYL TRANSFERASE (GGT)2018-12-19 18:01:00 Test Item Value Reference Range Interpretation Comments GAMMA GLUTAMYL TRANSFERASE (BEAKER) 24 U/L 9-64 (test code = 364) [id number] 18:00:00 Test Item Value Reference Range Interpretation Comments ETHANOL (BEAKER) (test code = 400) < mg/dL <=10 [id number] 12:48:00 Test Item Value Reference Range Interpretation Comments D-DIMER QUANTITATIVE (BEAKER) 6.75 MG/L FEU <0.50 H (test code = 671) Intended Use: The D-Dimer Assay can be used to aid in the diagnosis of Deep Vein Thrombosis (DVT) and Pulmonary Embolism Disease (PED).In patients with low pre- test probability, various studies concerning STA Liatest D-dimer test have reported that with a cutoff value of 0.50 MG/L FEU, the Negative Predictive Value (NPV) regarding the exclusion of thrombosis is within 95-100% range.APTT 2018-12-19 12:41:00 Test Item Value Reference Range Interpretation Comments PARTIAL THROMBOPLASTIN TIME 35.4 seconds 22.5-36.0 (BEAKER) (test code = 760) PROTHROMBIN [id number] 12:39:00 Test Item Value Reference Range Interpretation Comments PROTIME (BEAKER) (test code = 14.9 seconds 11.7-14.7 H 759) INR (BEAKER) (test code = 370) 1.2 <=5.9 RECOMMENDED COUMADIN/WARFARIN INR THERAPY RANGESSTANDARD DOSE: 2.0 - 3.0 Includes: PROPHYLAXIS forvenous thrombosis, systemic embolization; TREATMENT for venous thrombosis and/or pulmonary embolus.HIGH RISK: Target INR is 2.5-3.5 for patients with mechanical heart valves.POCT-GLUCOSE [id number] 11:36:00 Test Item Value Reference Range Interpretation Comments POC-GLUCOSE METER 267 mg/dL 70-110 H TESTED AT [place] [address] (BEAKER) (test code = TOMMIE Miller [place] 1538) [address] POCT-GLUCOSE [id number] 10:02:00 Test Item Value Reference Range Interpretation Comments POC-GLUCOSE METER 249 mg/dL 70-110 H TESTED AT [place] [address] (BEAKER) (test code = TOMMIE Miller [place] 1538) [address] MISCELLANEOUS LAB [id number] 07:59:00 Test Item Value Reference Range Interpretation Comments SCAN RESULT (test code = 9548899) POCT-GLUCOSE [id number] 07:50:00 Test Item Value Reference Range Interpretation Comments POC-GLUCOSE METER 228 mg/dL 70-110 H TESTED AT [place] [address] ([facility]) (test code = TOMMIE Miller [place] 1538) [address] HEPATIC FUNCTION [id number] 06:21:00 Test Item Value Reference Range Interpretation Comments TOTAL PROTEIN (BEAKER) (test code = 6.8 gm/dL 6.0-8.3 770) ALBUMIN (BEAKER) (test code = 1145) 2.8 g/dL 3.5-5.0 L BILIRUBIN TOTAL (BEAKER) (test code 0.9 mg/dL 0.2-1.2 = 377) BILIRUBIN DIRECT (BEAKER) (test 0.5 mg/dL 0.1-0.5 code = 706) ALKALINE PHOSPHATASE (BEAKER) (test 117 U/L 40-150 code = 346) AST (SGOT) (BEAKER) (test code = 47 U/L 5-34 H 353) ALT (SGPT) (BEAKER) (test code = 18 U/L 6-55 347) BASIC METABOLIC [id number] 06:21:00 Test Item Value Reference Range Interpretation Comments SODIUM (BEAKER) 136 meq/L 136-145 (test code = 381) POTASSIUM (BEAKER) 3.8 meq/L 3.5-5.1 (test code = 379) CHLORIDE (BEAKER) 104 meq/L 98-107 (test code = 382) CO2 (BEAKER) (test 26 meq/L 22-29 code = 355) BLOOD UREA NITROGEN 7 mg/dL 7-21 (BEAKER) (test code = 354) CREATININE (BEAKER) 0.84 mg/dL 0.57-1.25 (test code = 358) GLUCOSE RANDOM 152 mg/dL 70-105 H (BEAKER) (test code = 652) CALCIUM (BEAKER) 8.4 mg/dL 8.4-10.2 (test code = 697) EGFR (BEAKER) (test 95 mL/min/1.73 ESTIMA JUD GFR IS code = 1092) sq m NOT ACCURATE CREATININE CLEARANCE IN PREDICTING GLOMERULAR FILTRATION RATE . ESTIMATED GFR I S NOT APPLICABLE FOR DIALYSIS PATIEN TS. CBC (HEMOGRAM ONLY)2018-12-19 06:02:00 Test Item Value Reference Range Interpretation Comments WHITE BLOOD CELL COUNT (BEAKER) 5.3 K/ L 3.5-10.5 (test code = 775) RED BLOOD CELL COUNT (BEAKER) 4.18 M/ L 4.63-6.08 L (test code = 761) HEMOGLOBIN (BEAKER) (test code = 8.2 GM/DL 13.7-17.5 L 410) HEMATOCRIT (BEAKER) (test code = 28.9 % 40.1-51.0 L 411) MEAN CORPUSCULAR VOLUME (BEAKER) 69.1 fL 79.0-92.2 L (test code = 753) MEAN CORPUSCULAR HEMOGLOBIN 19.6 pg 25.7-32.2 L (BEAKER) (test code = 751) MEAN CORPUSCULAR HEMOGLOBIN CONC 28.4 GM/DL 32.3-36.5 L (BEAKER) (test code = 752) RED CELL DISTRIBUTION WIDTH 21.5 % 11.6-14.4 H (BEAKER) (test code = 412) PLATELET COUNT (BEAKER) (test 130 K/CU MM 150-450 L code = 756) MEAN PLATELET VOLUME (BEAKER) 9.9 fL 9.4-12.4 (test code = 754) NUCLEATED RED BLOOD CELLS 0 /100 WBC 0-0 (BEAKER) (test code = 413) POCT-GLUCOSE [id number] 21:21:00 Test Item Value Reference Range Interpretation Comments POC-GLUCOSE METER 213 mg/dL 70-110 H TESTED AT [facility] 6720 (BEAKER) (test code = TOMMIE [place] 1538) [id number] MR, ABDOMEN, [id number] 19:09:00Addendum BeginsREPORT STATUS: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 It should read: Questionable small nonocclusive thrombus in the high SUPERIOR mesenteric v ein. Signed: Roe Solorzano MDReport Verified Date/Time: 12/18/2018 19:09:20 Reading Location: [address] Body Reading RoomAddendum EndsFINAL REPORT TECHNIQUE: MRI of the abdomen WITHOUT and WITH intravenous contrast. INDICATION: 53-year-old man with cirrhosis and hemateme sis. COMPARISON: Abdomen ultrasound 12/16/2018. FINDINGS: LOWER THORAX: [...] MDReport Verified Date/Time: 12/17/2018 10:57:37 Reading Location: [facility] B1 C013Y CT Body Reading Room POCT-GLUCOSE [id number] 17:47:00 Test Item Value Reference Range Interpretation Comments POC-GLUCOSE METER 199 mg/dL 70-110 H TESTED AT [place] [address] ([facility] (test code = SAMARIAND Angela [facility] 1538) [id number] POCT-GLUCOSE [id number] 12:02:00 Test Item Value Reference Range Interpretation Comments POC-GLUCOSE METER 301 mg/dL 70-110 H TESTED AT [place] [address] ([facility] (test code = [facility] 1538) [address] HEPATITIS C PCR, [id number] 09:48:00 Test Item Value Reference Range Interpretation Comments HCV NUMERIC RESULT ([facility] [id number] IU/mL <15 H (test code = 2700) This test uses a Real-Time Polymerase Chain Reaction (RT-PCR) methodology and was performed using MAJOR Ampliprep/MAJOR TaqMan HCV test kit version 2.0 ([employer]).Reportable range for this assay is 15 - 100,000,000 IU per mL (1.18 - 8.00 Log IU/mL).POCT-GLUCOSE [id number] 09:18:00 Test Item Value Reference Range Interpretation Comments POC-GLUCOSE METER 284 mg/dL 70-110 H TESTED AT [place] [address] ([facility])) (test code = [facility] Angela [facility] 1538) [id number] HEPATIC FUNCTION [id number] 07:08:00 Test Item Value Reference Range Interpretation Comments TOTAL PROTEIN (BEAKER) (test code = 6.5 gm/dL 6.0-8.3 770) ALBUMIN (BEAKER) (test code = 1145) 2.7 g/dL 3.5-5.0 L BILIRUBIN TOTAL (BEAKER) (test code 0.9 mg/dL 0.2-1.2 = 377) BILIRUBIN DIRECT (BEAKER) (test 0.5 mg/dL 0.1-0.5 code = 706) ALKALINE PHOSPHATASE (BEAKER) (test 103 U/L 40-150 code = 346) AST (SGOT) (BEAKER) (test code = 40 U/L 5-34 H 353) ALT (SGPT) (BEAKER) (test code = 16 U/L 6-55 347) BASIC METABOLIC [id number] 07:08:00 Test Item Value Reference Range Interpretation Comments SODIUM (BEAKER) 135 meq/L 136-145 L (test code = 381) POTASSIUM (BEAKER) 4.0 meq/L 3.5-5.1 (test code = 379) CHLORIDE (BEAKER) 105 meq/L 98-107 (test code = 382) CO2 (BEAKER) (test 25 meq/L 22-29 code = 355) BLOOD UREA NITROGEN 9 mg/dL 7-21 (BEAKER) (test code = 354) CREATININE (BEAKER) 0.88 mg/dL 0.57-1.25 (test code = 358) GLUCOSE RANDOM 175 mg/dL 70-105 H (BEAKER) (test code = 652) CALCIUM (BEAKER) 8.2 mg/dL 8.4-10.2 L (test code = 697) EGFR (BEAKER) (test 90 mL/min/1.73 ESTIMA JUD GFR IS code = 1092) sq m NOT ACCURATE CREATININE CLEARANCE IN PREDICTING GLOMERULAR FILTRATION RATE . ESTIMATED GFR I S NOT APPLICABLE FOR DIALYSIS PATIEN TS. CBC (HEMOGRAM ONLY)2018-12-18 06:39:00 Test Item Value Reference Range Interpretation Comments WHITE BLOOD CELL COUNT (BEAKER) 6.9 K/ L 3.5-10.5 (test code = 775) RED BLOOD CELL COUNT (BEAKER) 4.15 M/ L 4.63-6.08 L (test code = 761) HEMOGLOBIN (BEAKER) (test code = 8.0 GM/DL 13.7-17.5 L 410) HEMATOCRIT (BEAKER) (test code = 28.7 % 40.1-51.0 L 411) MEAN CORPUSCULAR VOLUME (BEAKER) 69.2 fL 79.0-92.2 L (test code = 753) MEAN CORPUSCULAR HEMOGLOBIN 19.3 pg 25.7-32.2 L (BEAKER) (test code = 751) MEAN CORPUSCULAR HEMOGLOBIN CONC 27.9 GM/DL 32.3-36.5 L (BEAKER) (test code = 752) RED CELL DISTRIBUTION WIDTH 21.3 % 11.6-14.4 H (BEAKER) (test code = 412) PLATELET COUNT (BEAKER) (test 122 K/CU MM 150-450 L code = 756) NUCLEATED RED BLOOD CELLS 0 /100 WBC 0-0 (BEAKER) (test code = 413) POCT-GLUCOSE [id number] 22:48:00 Test Item Value Reference Range Interpretation Comments POC-GLUCOSE METER 237 mg/dL 70-110 H TESTED AT [facility] 6720 (BEAKER) (test code = TOMMIE [place] 1538) [address] ANTI-NUCLEAR ANTIBODY (WILLOW)2018-12-17 11:52:00 Test Item Value Reference Range Interpretation Comments ANTI-NUCLEAR ANTIBODY (WILLOW) (BEAKER) Positive Negative A (test code = 418) Test performed by IFA method.WILLOW TITER AND [id number] 11:52:00 Test Item Value Reference Range Interpretation Comments WILLOW TITER (BEAKER) (test code = :160 1541) WILLOW PATTERN (BEAKER) (test code = Speckled 1781) [id number] 05:45:00 Test Item Value Reference Range Interpretation Comments MAGNESIUM (BEAKER) 2.1 mg/dL 1.6-2.6 Specimen slightly (test code = 627) hemolyzed [id number] 05:45:00 Test Item Value Reference Range Interpretation Comments PHOSPHORUS (BEAKER) 3.0 mg/dL 2.3-4.7 Specimen slightly (test code = 604) hemolyzed BASIC METABOLIC [id number] 05:45:00 Test Item Value Reference Range Interpretation Comments SODIUM (BEAKER) 136 meq/L 136-145 (test code = 381) POTASSIUM (BEAKER) 4.3 meq/L 3.5-5.1 Specimen slightly (test code = 379) hemolyzed CHLORIDE (BEAKER) 106 meq/L 98-107 (test code = 382) CO2 (BEAKER) (test 25 meq/L 22-29 code = 355) BLOOD UREA NITROGEN 15 mg/dL 7-21 (BEAKER) (test code = 354) CREATININE (BEAKER) 1.06 mg/dL 0.57-1.25 Specimen slightly (test code = 358) hemolyzed GLUCOSE RANDOM 222 mg/dL 70-105 H (BEAKER) (test code = 652) CALCIUM (BEAKER) 8.1 mg/dL 8.4-10.2 L (test code = 697) EGFR (BEAKER) (test 73 mL/min/1.73 ESTIMA JUD GFR IS code = 1092) sq m NOT ACCURATE CREATININE CLEARANCE IN PREDICTING GLOMERULAR FILTRATION RATE . ESTIMATED GFR I S NOT APPLICABLE FOR DIALYSIS PATIEN TS. HEPATIC FUNCTION [id number] 05:45:00 Test Item Value Reference Range Interpretation Comments TOTAL PROTEIN (BEAKER) 6.6 gm/dL 6.0-8.3 Speci men slightly (test code = 770) hemolyzed ALBUMIN (BEAKER) (test 2.6 g/dL 3.5-5.0 L Speci men slightly code = 1145) hemolyzed BILIRUBIN TOTAL 0.9 mg/dL 0.2-1.2 Specimen sli ghtly (BEAKER) (test code = hemoly zed 377) BILIRUBIN DIRECT 0.5 mg/dL 0.1-0.5 Specimen sl ightly (BEAKER) (test code = hemoly zed 706) ALKALINE PHOSPHATASE 109 U/L 40-150 (BEAKER) (test code = 346) AST (SGOT) (BEAKER) 53 U/L 5-34 H Specimen slightly (test code = 353) hemolyzed ALT (SGPT) (BEAKER) 21 U/L 6-55 Specimen slightly (test code = 347) hemolyzed CBC W/PLT COUNT & AUTO [id number] 04:48:00 Test Item Value Reference Range Interpretation Comments WHITE BLOOD CELL COUNT 8.1 K/ L 3.5-10.5 (BEAKER) (test code = 775) RED BLOOD CELL COUNT 4.33 M/ L 4.63-6.08 L (BEAKER) (test code = 761) HEMOGLOBIN (BEAKER) 8.3 GM/DL 13.7-17.5 L (test code = 410) HEMATOCRIT (BEAKER) 29.9 % 40.1-51.0 L (test code = 411) MEAN CORPUSCULAR 69.1 fL 79.0-92.2 L VOLUME (BEAKER) (test code = 753) MEAN CORPUSCULAR 19.2 pg 25.7-32.2 L HEMOGLOBIN (BEAKER) (test code = 751) MEAN CORPUSCULAR 27.8 GM/DL 32.3-36.5 L HEMOGLOBIN CONC (BEAKER) (test code = 752) RED CELL DISTRIBUTION 21.1 % 11.6-14.4 H WIDTH (BEAKER) (test code = 412) PLATELET COUNT 141 K/CU MM 150-450 L (BEAKER) (test code = 756) MEAN PLATELET VOLUME fL 9.4-12.4 Unable to report due (BEAKER) (test code = to abn ormal Platelet 754) population distribution. NUCLEATED RED BLOOD 0 /100 WBC 0-0 CELLS (BEAKER) (test code = 413) NEUTROPHILS RELATIVE 70 % PERCENT (BEAKER) (test code = 429) LYMPHOCYTES RELATIVE 15 % PERCENT (BEAKER) (test code = 430) MONOCYTES RELATIVE 9 % PERCENT (BEAKER) (test code = 431) EOSINOPHILS RELATIVE 6 % PERCENT (BEAKER) (test code = 432) BASOPHILS RELATIVE 1 % PERCENT (BEAKER) (test code = 437) NEUTROPHILS ABSOLUTE 5.60 K/ L 1.78-5.38 H COUNT (BEAKER) (test code = 670) LYMPHOCYTES ABSOLUTE 1.18 K/ L 1.32-3.57 L COUNT (BEAKER) (test code = 414) MONOCYTES ABSOLUTE 0.72 K/ L 0.30-0.82 COUNT (BEAKER) (test code = 415) EOSINOPHILS ABSOLUTE 0.46 K/ L 0.04-0.54 COUNT (BEAKER) (test code = 416) BASOPHILS ABSOLUTE 0.08 K/ L 0.01-0.08 COUNT (BEAKER) (test code = 417) IMMATURE 0 % 0-1 GRANULOCYTES-RELATIVE PERCENT (BEAKER) (test code = 280) HEPATITIS C [id number] 21:49:00 Test Item Value Reference Range Interpretation Comments HEPATITIS C ANTIBODY (BEAKER) (test Reactive Nonreactive A code = 367) HEPATITIS A ANTIBODY, [id number] 21:49:00 Test Item Value Reference Range Interpretation Comments HEPATITIS A IGG ANTIBODY (BEAKER) Reactive Nonreactive A (test code = 2797) ALPHA FETOPROTEIN (AFP), TUMOR [id number] 21:48:00 Test Item Value Reference Range Interpretation Comments ALPHA-FETOPROTEIN (BEAKER) (test 5.3 ng/mL <10.0 code = 1094) HEPATITIS B CORE ANTIBODY, [id number] 21:48:00 Test Item Value Reference Range Interpretation Comments HEPATITIS B CORE TOTAL ANTIBODY Nonreactive Nonreactive (BEAKER) (test code = 497) [id number] 21:13:00 Test Item Value Reference Range Interpretation Comments FERRITIN (BEAKER) (test code = 361) 17 ng/mL 5-275 [id number] 20:56:00 Test Item Value Reference Range Interpretation Comments ALPHA-1 ANTITRYPSIN 137.60 mg/dL 90.00-200.00 Specimen slightly (BEAKER) (test code = hemoly zed 502) IRON, TIBC, % SAT. (WITHOUT FERRITIN)2018-12-16 20:55:00 Test Item Value Reference Range Interpretation Comments IRON (BEAKER) (test code = 547) 56.0 ug/dL 40.0-160.0 TOTAL IRON BINDING CAPACITY 360 ug/dL 250-450 (BEAKER) (test code = 769) IRON % SATURATION (2) (BEAKER) 16 % 20-55 L (test code = 2590) [id number] 20:52:00 Test Item Value Reference Range Interpretation Comments ETHANOL (BEAKER) (test code = 400) < mg/dL <=10 HEMOGLOBIN AND [id number] 20:37:00 Test Item Value Reference Range Interpretation Comments HEMOGLOBIN (BEAKER) (test code = 9.2 GM/DL 13.7-17.5 L 410) HEMATOCRIT (BEAKER) (test code = 32.6 % 40.1-51.0 L 411) U/S, ABDOMINAL, WITH [id number] 18:22:00Reason for exam:->liver cirrhosis, variceal bleed, please [...] MDReport Verified Date/Time: 12/16/2018 18:22:50 Reading Location: [address] Ultrasound Reading Room [facility] METABOLIC [id number] 12:25:00 Test Item Value Reference Range Interpretation Comments SODIUM (BEAKER) 135 meq/L 136-145 L (test code = 381) POTASSIUM (BEAKER) 4.7 meq/L 3.5-5.1 (test code = 379) CHLORIDE (BEAKER) 105 meq/L 98-107 (test code = 382) CO2 (BEAKER) (test 25 meq/L 22-29 code = 355) BLOOD UREA NITROGEN 16 mg/dL 7-21 (BEAKER) (test code = 354) CREATININE (BEAKER) 1.01 mg/dL 0.57-1.25 (test code = 358) GLUCOSE RANDOM 162 mg/dL 70-105 H (BEAKER) (test code = 652) CALCIUM (BEAKER) 8.1 mg/dL 8.4-10.2 L (test code = 697) EGFR (BEAKER) (test 77 mL/min/1.73 ESTIMA JUD GFR IS code = 1092) sq m NOT ACCURATE CREATININE CLEARANCE IN PREDICTING GLOMERULAR FILTRATION RATE . ESTIMATED GFR I S NOT APPLICABLE FOR DIALYSIS PATIEN TS. HEMOGLOBIN AND [id number] 12:06:00 Test Item Value Reference Range Interpretation Comments HEMOGLOBIN (BEAKER) (test code = 8.6 GM/DL 13.7-17.5 L 410) HEMATOCRIT (BEAKER) (test code = 31.4 % 40.1-51.0 L 411) HEMOGLOBIN AND [id number] 08:52:00 Test Item Value Reference Range Interpretation Comments HEMOGLOBIN (BEAKER) (test code = 8.7 GM/DL 13.7-17.5 L 410) HEMATOCRIT (BEAKER) (test code = 30.9 % 40.1-51.0 L 411) CALCIUM, [id number] 05:54:00 Test Item Value Reference Range Interpretation Comments CALCIUM IONIZED (BEAKER) (test 1.08 mmol/L 1.12-1.27 L code = 698) PH, BLOOD (BEAKER) (test code = 7.34 1810) [id number] 05:50:00 Test Item Value Reference Range Interpretation Comments PHOSPHORUS (BEAKER) (test code = 3.4 mg/dL 2.3-4.7 604) [id number] 05:50:00 Test Item Value Reference Range Interpretation Comments MAGNESIUM (BEAKER) (test code = 1.6 mg/dL 1.6-2.6 627) BASIC METABOLIC [id number] 05:50:00 Test Item Value Reference Range Interpretation Comments SODIUM (BEAKER) 138 meq/L 136-145 (test code = 381) POTASSIUM (BEAKER) 5.4 meq/L 3.5-5.1 H (test code = 379) CHLORIDE (BEAKER) 108 meq/L 98-107 H (test code = 382) CO2 (BEAKER) (test 22 meq/L 22-29 code = 355) BLOOD UREA NITROGEN 14 mg/dL 7-21 (BEAKER) (test code = 354) CREATININE (BEAKER) 1.00 mg/dL 0.57-1.25 (test code = 358) GLUCOSE RANDOM 144 mg/dL 70-105 H (BEAKER) (test code = 652) CALCIUM (BEAKER) 8.1 mg/dL 8.4-10.2 L (test code = 697) EGFR (BEAKER) (test 78 mL/min/1.73 ESTIMA JUD GFR IS code = 1092) sq m NOT ACCURATE CREATININE CLEARANCE IN PREDICTING GLOMERULAR FILTRATION RATE . ESTIMATED GFR I S NOT APPLICABLE FOR DIALYSIS PATIEN TS. CBC W/PLT COUNT & AUTO [id number] 05:44:00 Test Item Value Reference Range Interpretation Comments WHITE BLOOD CELL COUNT 7.2 K/ L 3.5-10.5 (BEAKER) (test code = 775) RED BLOOD CELL COUNT 4.48 M/ L 4.63-6.08 L (BEAKER) (test code = 761) HEMOGLOBIN (BEAKER) 8.7 GM/DL 13.7-17.5 L (test code = 410) HEMATOCRIT (BEAKER) 31.4 % 40.1-51.0 L (test code = 411) MEAN CORPUSCULAR 70.1 fL 79.0-92.2 L VOLUME (BEAKER) (test code = 753) MEAN CORPUSCULAR 19.4 pg 25.7-32.2 L HEMOGLOBIN (BEAKER) (test code = 751) MEAN CORPUSCULAR 27.7 GM/DL 32.3-36.5 L HEMOGLOBIN CONC (BEAKER) (test code = 752) RED CELL DISTRIBUTION 21.0 % 11.6-14.4 H WIDTH (BEAKER) (test code = 412) PLATELET COUNT 135 K/CU MM 150-450 L (BEAKER) (test code = 756) MEAN PLATELET VOLUME fL 9.4-12.4 Unable to report due (BEAKER) (test code = to abn ormal Platelet 754) population distribution. NUCLEATED RED BLOOD 0 /100 WBC 0-0 CELLS (BEAKER) (test code = 413) NEUTROPHILS RELATIVE 72 % PERCENT (BEAKER) (test code = 429) LYMPHOCYTES RELATIVE 12 % PERCENT (BEAKER) (test code = 430) MONOCYTES RELATIVE 11 % PERCENT (BEAKER) (test code = 431) EOSINOPHILS RELATIVE 4 % PERCENT (BEAKER) (test code = 432) BASOPHILS RELATIVE 1 % PERCENT (BEAKER) (test code = 437) NEUTROPHILS ABSOLUTE 5.15 K/ L 1.78-5.38 COUNT (BEAKER) (test code = 670) LYMPHOCYTES ABSOLUTE 0.89 K/ L 1.32-3.57 L COUNT (BEAKER) (test code = 414) MONOCYTES ABSOLUTE 0.76 K/ L 0.30-0.82 COUNT (BEAKER) (test code = 415) EOSINOPHILS ABSOLUTE 0.29 K/ L 0.04-0.54 COUNT (BEAKER) (test code = 416) BASOPHILS ABSOLUTE 0.06 K/ L 0.01-0.08 COUNT (BEAKER) (test code = 417) IMMATURE 0 % 0-1 GRANULOCYTES-RELATIVE PERCENT (BEAKER) (test code = 2801) HEMOGLOBIN AND [id number] 00:02:00 Test Item Value Reference Range Interpretation Comments HEMOGLOBIN (BEAKER) (test code = 7.8 GM/DL 13.7-17.5 L 410) HEMATOCRIT (BEAKER) (test code = 28.0 % 40.1-51.0 L 411) POCT-GLUCOSE [id number] 23:24:00 Test Item Value Reference Range Interpretation Comments POC-GLUCOSE METER 168 mg/dL 70-110 H TESTED AT [facility] 6720 (BEAKER) (test code = TOMMIE Miller [facility] 1538) [address] RAD, CHEST, 1 VIEW, NON [id number] 23:07:00Reason for exam:->NG tube placementShould this be [...] MDReport Verified Date/Time: 12/15/2018 23:07:08 Reading Location: [address] Body Reading Room HEMOGLOBIN AND [id number] 20:12:00 Test Item Value Reference Range Interpretation Comments HEMOGLOBIN (BEAKER) (test code = 7.4 GM/DL 13.7-17.5 L 410) HEMATOCRIT (BEAKER) (test code = 26.7 % 40.1-51.0 L 411) RAD, CHEST, 1 VIEW, NON [id number] 18:43:00Reason for exam:->s/p intubationShould this be performed at the bedside?->YesFINAL REPORT Clinical History: Status post intubation Comparison Study: None F indings: The cardiac silhouette is enlarged. An endotracheal tube has been inserted, the tip approximately 5.1 cm above the thang. Mild interstitial pulmonary markings are seen. The pleural spaces are clear. No significant bony or soft tissue abnormalities are seen. Impression: Cardiomegaly with mild interstitial pulmonary markings. Intubation. Signed: Jessica Mtz MDReport Verified Date/Time: 12/15/2018 18:43:24 Reading Location: [facility] C0X Ortho Consult Reading Room BASIC METABOLIC [id number] 14:38:00 Test Item Value Reference Range Interpretation Comments SODIUM (BEAKER) 137 meq/L 136-145 (test code = 381) POTASSIUM (BEAKER) 4.8 meq/L 3.5-5.1 Specimen slightly (test code = 379) hemolyzed CHLORIDE (BEAKER) 105 meq/L 98-107 (test code = 382) CO2 (BEAKER) (test 25 meq/L 22-29 code = 355) BLOOD UREA NITROGEN 11 mg/dL 7-21 (BEAKER) (test code = 354) CREATININE (BEAKER) 0.84 mg/dL 0.57-1.25 Specimen slightly (test code = 358) hemolyzed GLUCOSE RANDOM 114 mg/dL 70-105 H (BEAKER) (test code = 652) CALCIUM (BEAKER) 8.5 mg/dL 8.4-10.2 (test code = 697) EGFR (BEAKER) (test 95 mL/min/1.73 ESTIMA JUD GFR IS code = 1092) sq m NOT ACCURATE CREATININE CLEARANCE IN PREDICTING GLOMERULAR FILTRATION RATE . ESTIMATED GFR I S NOT APPLICABLE FOR DIALYSIS PATIEN TS. Specimen slightly ictericCOMPREHENSIVE METABOLIC [id number] 14:38:00 Test Item Value Reference Range Interpretation Comments TOTAL PROTEIN 7.2 gm/dL 6.0-8.3 Specimen sligh tly (BEAKER) (test code = hemoly zed 770) ALBUMIN (BEAKER) 2.9 g/dL 3.5-5.0 L Specimen sl ightly (test code = 1145) hemolyzed ALKALINE PHOSPHATASE 125 U/L 40-150 (BEAKER) (test code = 346) BILIRUBIN TOTAL 2.5 mg/dL 0.2-1.2 H Specimen sli ghtly (BEAKER) (test code = hemoly zed 377) SODIUM (BEAKER) (test 137 meq/L 136-145 code = 381) POTASSIUM (BEAKER) 4.8 meq/L 3.5-5.1 Specimen slightly (test code = 379) hemolyzed CHLORIDE (BEAKER) 105 meq/L 98-107 (test code = 382) CO2 (BEAKER) (test 25 meq/L 22-29 code = 355) BLOOD UREA NITROGEN 11 mg/dL 7-21 (BEAKER) (test code = 354) CREATININE (BEAKER) 0.84 mg/dL 0.57-1.25 Specimen slightly (test code = 358) hemolyzed GLUCOSE RANDOM 114 mg/dL 70-105 H (BEAKER) (test code = 652) CALCIUM (BEAKER) 8.5 mg/dL 8.4-10.2 (test code = 697) AST (SGOT) (BEAKER) 56 U/L 5-34 H Specimen slightly (test code = 353) hemolyzed ALT (SGPT) (BEAKER) 21 U/L 6-55 Specimen slightly (test code = 347) hemolyzed EGFR (BEAKER) (test 95 mL/min/1.73 ESTIMA JUD GFR IS code = 1092) sq m NOT ACCURATE CREATININE CLEARANCE IN PREDICTING GLOMERULAR FILTRATION RATE . ESTIMATED GFR I S NOT APPLICABLE FOR DIALYSIS PATIEN TS. Specimen slightly ictericCBC (HEMOGRAM ONLY)2018-12-15 14:35:00 Test Item Value Reference Range Interpretation Comments WHITE BLOOD CELL COUNT (BEAKER) 5.6 K/ L 3.5-10.5 (test code = 775) RED BLOOD CELL COUNT (BEAKER) 4.43 M/ L 4.63-6.08 L (test code = 761) HEMOGLOBIN (BEAKER) (test code = 8.5 GM/DL 13.7-17.5 L 410) HEMATOCRIT (BEAKER) (test code = 30.7 % 40.1-51.0 L 411) MEAN CORPUSCULAR VOLUME (BEAKER) 69.3 fL 79.0-92.2 L (test code = 753) MEAN CORPUSCULAR HEMOGLOBIN 19.2 pg 25.7-32.2 L (BEAKER) (test code = 751) MEAN CORPUSCULAR HEMOGLOBIN CONC 27.7 GM/DL 32.3-36.5 L (BEAKER) (test code = 752) RED CELL DISTRIBUTION WIDTH 20.9 % 11.6-14.4 H (BEAKER) (test code = 412) PLATELET COUNT (BEAKER) (test 150 K/CU MM 150-450 code = 756) NUCLEATED RED BLOOD CELLS 0 /100 WBC 0-0 (BEAKER) (test code = 413) LACTIC ACID, [id number] 14:34:00 Test Item Value Reference Range Interpretation Comments LACTATE BLOOD VENOUS (2) (BEAKER) 1.4 mmol/L 0.5-2.2 (test code = 2872) [id number] 14:34:00 Test Item Value Reference Range Interpretation Comments FIBRINOGEN LEVEL (BEAKER) (test 164 mg/dl 225-434 L code = 658) PROTHROMBIN [id number] 14:29:00 Test Item Value Reference Range Interpretation Comments PROTIME (BEAKER) (test code = 17.0 seconds 11.7-14.7 H 759) INR (BEAKER) (test code = 370) 1.4 <=5.9 RECOMMENDED COUMADIN/WARFARIN INR THERAPY RANGESSTANDARD DOSE: 2.0 - 3.0 Includes: PROPHYLAXIS forvenous thrombosis, systemic embolization; TREATMENT for venous thrombosis and/or pulmonary embolus.HIGH RISK: Target INR is 2.5-3.5 for patients with mechanical heart valves.[id number] 14:29:00 Test Item Value Reference Range Interpretation Comments PARTIAL THROMBOPLASTIN TIME 35.0 seconds 22.5-36.0 (BEAKER) (test code = 760) [id number] 14:29:00 Test Item Value Reference Range Interpretation Comments PARTIAL THROMBOPLASTIN TIME 38.1 seconds 22.5-36.0 H (BEAKER) (test code = 760) PROTHROMBIN [id number] 14:28:00 Test Item Value Reference Range Interpretation Comments PROTIME (BEAKER) (test code = 15.4 seconds 11.7-14.7 H 759) INR (BEAKER) (test code = 370) 1.2 <=5.9 RECOMMENDED COUMADIN/WARFARIN INR THERAPY RANGESSTANDARD DOSE: 2.0 - 3.0 Includes: PROPHYLAXIS forvenous thrombosis, systemic embolization; TREATMENT for venous thrombosis and/or pulmonary embolus.HIGH RISK: Target INR is 2.5-3.5 for patients with mechanical heart valves.HEMOGLOBIN AND [id number] 14:21:00 Test Item Value Reference Range Interpretation Comments HEMOGLOBIN (BEAKER) (test code = 8.5 GM/DL 13.7-17.5 L 410) HEMATOCRIT (BEAKER) (test code = 30.7 % 40.1-51.0 L 411)
--- NOTE | 2020-08-07 14:27 | RAD REPORT ---
EXAM DESCRIPTION: CT - Ct Stroke Brain Wo Cont - 08/07/2020 2:09 pm CLINICAL HISTORY: aphasia COMPARISON: November 2019 TECHNIQUE: Computed axial tomography of the head was obtained. All CT scans are performed using dose optimization technique as appropriate and may include automated exposure control or mA/KV adjustment according to patient size. FINDINGS: An intracranial bleed is not seen . No extra-axial fluid collection is noted. 4.7 centimeter low-density mass left temporal lobe with a large amount of surrounding vasogenic edema . The left ventricle is compressed. There shift of midline structures millimeters to the right Fluid within the sinuses/ mastoids is not seen. 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
--- NOTE | 2020-08-07 14:43 | RAD REPORT ---
EXAM DESCRIPTION: Stephon Single View08/07/2020 2:18 pm CLINICAL HISTORY: Right-sided weakness FINDINGS: Lungs appear clear of acute infiltrate. The heart is normal size. Prominence of mediastinum may indicate lymphadenopathy
[2020-08-07 15:13] LABS: Urine Bacteria <20 /HPF (NONE SEEN); Urine Culture Reflex Order NOT NEEDED; Urine RBC <5 /HPF (NONE SEEN)
[2020-08-07 15:17] LABS: Urine Blood NEGATIVE (NEG); Urine Glucose 3+ (NEG); Urine Protein 1+ (NEG); Urine Specific Gravity 1.025 (1.005-1.030)
[2020-08-07] MEDS ORDERED: NA CHLORIDE 0.9% 500 ML ONE (15:51)
[2020-08-07 16:04] LABS: Absolute Lymphocytes (CBC) 1.4 K/uL (0.7-4.9); Lymphocytes % 17.9 % (15.3-44.8); MPV 8.8 fL (7.6-11.3)
[2020-08-07 16:06] LABS: Protime INR 1.14
[2020-08-07] MEDS ORDERED: dexAMETHasone 10 MG/ML VIAL ONE (16:09)
[2020-08-07 16:23] LABS: Albumin 3.7 g/dL (3.4-5.0); Bilirubin Direct 0.4 mg/dL (0-0.2); Magnesium 2.1 mg/dL (1.8-2.4); Potassium 4.2 mmol/L (3.5-5.1); Protein, Total 8.7 g/dL (6.4-8.2); Troponin (Emerg Dept Use Only) 0.02 ng/mL (0.0-0.045)
--- NOTE | 2020-08-07 16:37 | EDPHYS ---
Physician Documentation [facility] Name: Janusz Morris Jr Age: 55 yrs Sex: Male : 1965 Arrival Date: 08/07/2020 Time: 13:40 Bed 5 Private MD: Tima Estrada ED Physician Syed Steele HPI: 08/07 13:56 This 55 yrs old Male presents to ER via Unassigned with complaints of S/S of cp Possible Stroke. 13:56 The patient's problem is reported as altered mental status, decreased responsiveness, a cp facial droop, on right, weakness, in the right upper extremity, in the right lower extremity. Onset: The symptoms/episode began/occurred 4 day(s) ago, and became worse this morning, about 1000. Duration: The episode is continuous. Associated signs and symptoms: Pertinent negatives: abdominal pain, chest pain. Historical: - Allergies: 13:40 No Known Allergies; rb3 - Home Meds: 13:40 lisinopril 5 mg Oral tab 1 tab once daily [Active]; metformin 500 mg Oral tab 1 tab 2 rb3 times per day [Active]; tramadol 50 mg Oral tab 1 tab every 6 hours [Active]; Protonix 40 mg Oral grps 1 packet once daily [Active]; thiamine HCl (vitamin B1) 100 mg Oral tab 100 mg daily [Active]; Tresiba FlexTouch U-200 200 unit/mL (3 mL) subcutaneous inpn 46 units twice a day [Active]; Humulin R 100 unit/mL soln [Active]; lactulose 10 gram/15 mL Oral soln 60 mL 3 times per day [Active]; furosemide 20 mg Oral tab 1 tab once daily [Active]; Aldactone 50 mg Oral tab 1 tab once daily [Active]; bisacodyl 10 mg Rectal supp 1 suppository once daily [Active]; levsin 0.125 mg 1 tab every 4 hours [Active]; promethazine 25 mg Oral tab 1 tab every 4 hours [Active]; Ativan 0.5 mg Oral tab 1 tab Every two hours PRN [Active]; morphine 20 mg/5 mL (4 mg/mL) Oral soln 0.5 mL every one hour [Active]; acetaminophen 650 mg Rectal supp 1 suppository every 4 hours for PRN [Active]; - PMHx: 13:40 Cirrhosis; esophageal varices; liver cancer; Hypertension; Diabetes - NIDDM; anxiety; rb3 - PSHx: 13:40 TACE; cardiac cath; rb3 - Immunization history:: Adult Immunizations up to date. - Social history:: Smoking status: unknown. ROS: 14:05 Constitutional: Negative for body aches, chills, fever, poor PO intake. cp 14:05 Neuro: Positive for altered mental status, weakness, of the right arm and right leg. 14:05 Unable to obtain ROS due to altered mental status. Exam: 14:05 Constitutional: The patient appears in no acute distress, alert, awake, cp non-diaphoretic, non-toxic, well developed, well nourished. 14:05 Head/face: Noted is right side facial drip. 14:05 Eyes: Periorbital structures: appear normal, Pupils: equal, round, and reactive to light and accomodation, Extraocular movements: intact throughout, Conjunctiva: normal, no exudate, no injection, Sclera: no appreciated abnormality, Lids and lashes: appear normal, bilaterally. 14:05 ENT: External ear(s): are unremarkable, Nose: is normal, Mouth: Lips: moist, Posterior pharynx: Airway: no evidence of obstruction, patent. 14:05 Neck: C-spine: vertebral tenderness, is not appreciated, crepitus, is not appreciated. 14:05 Chest/axilla: Inspection: normal, Palpation: crepitus, is not appreciated, tenderness, is not appreciated. 14:05 Respiratory: the patient does not display signs of respiratory distress, Respirations: normal, no use of accessory muscles, no retractions, labored breathing, is not present, Breath sounds: are clear throughout, no decreased breath sounds. 14:05 Abdomen/GI: Inspection: abdomen appears normal, Bowel sounds: active, all quadrants, Palpation: abdomen is soft and non-tender, in all quadrants. 14:05 Musculoskeletal/extremity: Exam is negative for deformity, injury. 14:05 Neuro: Orientation: Not oriented to person, place, time, Mentation: able to follow commands. 14:10 Radiologist reports: 4.7 cm left temporal mass causing 8 mm shift to right cp Vital Signs: 13:40 BP 121 / 71; Pulse 87; Resp 19; Temp 99; Pulse Ox 100% ; Weight 79.82 kg (R); Height 5 rb3 ft. 2 in. (157.48 cm); 15:00 BP 123 / 65; Pulse 76; Resp 16; Pulse Ox 100% ; bp 16:00 BP 97 / 52; Pulse 74; Resp 16; Pulse Ox 100% ; bp 17:18 BP 120 / 71; Pulse 74; Resp 16; Temp 98.9; Pulse Ox 100% ; bp 13:40 Body Mass Index 32.19 (79.82 kg, 157.48 cm) rb3 NIH Stroke Scale Scores: 13:45 NIHSS Score: 7 bp 13:57 NIHSS Score: 24 cp 15:56 NIHSS Score: 14 cp Titus Coma Score: 15:56 Eye Response: spontaneous(4). Verbal Response: inappropriate words(3). Motor Response: cp withdraws from pain(4). Total: 11. MDM: 13:55 Patient medically screened. cp 14:00 Differential diagnosis: CVA, Dementia, metabolic disorder, drug effects. 14:33 ED course: DR Steele spoke with family, sister has power of attorny, who report patient cp was discharged from hospice care 1 week ago. At this time, family will allow blood work but no treatment. Discussed results of head CT showing 4.7 cm left intracranial mass causing 8 mm of midline shift to right. 16:37 Physician consultation: was contacted at 16:33, regarding regarding transfer, to [facility]. patient's condition, DR Vernon, neurologist, will be accepting physician. Wants Mannitol given 1 gram/kg. 16:40 Data reviewed: vital signs, nurses notes, lab test result(s), EKG, radiologic studies, cp CT scan, plain films, I have discussed the patient's presentation/case with the attending Emergency Department Physician; and as a result, I will transfer patient. 16:40 Test interpretation: by ED physician or midlevel provider: ECG, chest xray negative for cp infiltrates. Counseling: I had a detailed discussion with the patient and/or guardian regarding: the historical points, exam findings, and any diagnostic results supporting the discharge/admit diagnosis, lab results, radiology results, the need to transfer to another facility, [facility] does not immediately have the required specialist. Response to treatment: the patient's symptoms have markedly improved after treatment. 17:10 Physician consultation: was contacted at 17:05, regarding regarding transfer, to [facility]. patient's condition, DR Claire, ER physician, will be accepting physician to ED for evaluation. 08/07 13:55 Order name: Basic Metabolic Panel; Complete Time: 16:28 08/07 13:55 Order name: CBC with Diff; Complete Time: 16:28 08/07 13:55 Order name: LFT's; Complete Time: 16:28 08/07 13:55 Order name: Magnesium; Complete Time: 16:28 08/07 13:55 Order name: NT PRO-BNP; Complete Time: 16:28 08/07 13:55 Order name: PT-INR; Complete Time: 16:28 08/07 13:55 Order name: Troponin (emerg Dept Use Only); Complete Time: 16:28 08/07 13:55 Order name: AMMONIA; Complete Time: 16:28 08/07 13:55 Order name: CPK; Complete Time: 16:28 08/07 13:55 Order name: Blood Culture Adult (2) 08/07 13:55 Order name: Procalcitonin; Complete Time: 19:37 08/07 13:55 Order name: Lactate; Complete Time: 16:28 08/07 13:55 Order name: Urine Microscopic Only; Complete Time: 15:38 08/07 14:00 Order name: Glucose, Ancillary Testing; Complete Time: 15:38 EDMS 08/07 13:55 Order name: XRAY Chest (1 view); Complete Time: 15:38 08/07 13:55 Order name: EKG; Complete Time: 13:55 08/07 13:55 Order name: Cardiac monitoring; Complete Time: 15:50 08/07 13:55 Order name: EKG - Nurse/Tech; Complete Time: 13:55 08/07 13:55 Order name: IV Saline Lock; Complete Time: 15:50 08/07 13:55 Order name: Labs collected and sent; Complete Time: 15:50 08/07 13:55 Order name: O2 Per Protocol; Complete Time: 13:55 08/07 13:55 Order name: O2 Sat Monitoring; Complete Time: 13:56 08/07 13:55 Order name: CT Stroke Brain w/o Contrast; Complete Time: 15:38 cp 08/07 15:06 Order name: Urine Dipstick--Ancillary (enter results); Complete Time: 15:38 mt Administered Medications: 15:45 Drug: NS 0.9% 500 ml Route: IV; Rate: bolus; Site: right wrist; bp 16:33 Follow up: IV Status: Completed infusion rb3 15:55 Drug: Decadron - Dexamethasone 10 mg Route: IVP; Site: right wrist; bp 16:10 Follow up: Response: No adverse reaction rb3 17:30 Drug: Mannitol 25% 1 g/kg {Note: 25GM GIVEN PER VERBAL ORDERS.} Route: IV; Rate: per bp protocol; Site: right wrist; 17:56 Follow up: IV Status: Completed infusion; IV Intake: 100ml bp 17:30 Drug: NS 0.9% 1000 ml Route: IV; Rate: 1 bolus; Site: right wrist; bp 17:56 Follow up: IV Status: Infusion continued upon transfer bp Point of Care Testing: Blood Glucose: 13:45 Blood Glucose: 316 mg/dL; rb3 Ranges: Critical Glucose Levels:Adult <50 mg/dl or >400 mg/dl <40 mg/dl or >180 mg/dl Disposition: 17:31 Co-signature as Attending Physician, Syed Steele MD I agree with the assessment and rn plan of care. PA/BUSINESS SYSTEM CONSULTANT's history reviewed, patient interviewed, and examined. HPI: 55 year old with AMS, unclear onset, weakness on right side of body. My personal exam of patient reveals: encephalopathic, + hemiplegia on right side, GCS 11 I agree with assessment and care plan and confirm the diagnosis (es) above. Pt evaluated face to face by Dr. Steele. 18:00 Chart complete. cp Disposition: 08/07/20 16:36 Transfer ordered to [facility]. Diagnosis are Left Temporal Mass, Encephalopathy, unspecified, Altered mental status, unspecified. - Reason for transfer: Higher level of care. - Accepting physician is DR Claire. - Condition is Stable. - Problem is new. - Symptoms have improved. Critical care time excluding procedures: 18:00 Critical care time: Bedside Care: 20 minutes, Consultation: 10 minutes, Family cp Intervention: 15 minutes. Total time: 45 minutes NIH Stroke Scale - NIH Stroke Score Date: 08/07/2020 Time: 13:45 Total Score = 7 1a. Level of Consciousness (LOC) - 2(Not Alert, obtunded) 1b. Level of Consciousness (LOC) (Year \T\ Age) - 2(Neither) 1c. LOC Commands (Open \T\ Closes Eyes/Machine Tool Dresser) - 1(One) 2. Best Gaze (Lateral Gaze Paresis) - 0(Normal) 3. Visual Field Loss - 0(No visual loss) 4. Facial Palsy - 0(Normal) 5a. Left Arm: Motor (10-second hold) - 0(No drift) 5b. Right Arm: Motor (10-second hold) - 0(No drift) 6a. Left Leg: Motor (5-second hold - always test supine) - 0(No drift) 6b. Right Leg: Motor (5-second hold - always test supine) - 0(No drift) 7. Limb Ataxia (finger/nose \T\ heel/roque - test with eyes open) - 0(Absent) 8. Sensory Loss (pinprick arms/legs/face) - 0(Normal) 9. Best Language: Aphasia (description/naming/reading) - 2(Severe aphasia) 10. Dysarthria (speech clarity - read or repeat words) - 0(Normal) 11. Extinction and Inattention (visual/tactile/auditory/spatial/personal) - 0(No abnormality) Initials: bp NIH Stroke Scale - NIH Stroke Score Date: 08/07/2020 Time: 13:57 Total Score = 24 1a. Level of Consciousness (LOC) - 0(Alert) 1b. Level of Consciousness (LOC) (Year \T\ Age) - 2(Neither) 1c. LOC Commands (Open \T\ Closes Eyes/Machine Tool Dresser) - 1(One) 2. Best Gaze (Lateral Gaze Paresis) - 0(Normal) 3. Visual Field Loss - 0(No visual loss) 4. Facial Palsy - 2(Partial paralysis) 5a. Left Arm: Motor (10-second hold) - 3(No effort against gravity) 5b. Right Arm: Motor (10-second hold) - 3(No effort against gravity) 6a. Left Leg: Motor (5-second hold - always test supine) - 2(Drift, some effort against gravity) 6b. Right Leg: Motor (5-second hold - always test supine) - 3(No effort against gravity) 7. Limb Ataxia (finger/nose \T\ heel/roque - test with eyes open) - 2(Present in two limbs) 8. Sensory Loss (pinprick arms/legs/face) - 1(Mild to moderate loss) 9. Best Language: Aphasia (description/naming/reading) - 2(Severe aphasia) 10. Dysarthria (speech clarity - read or repeat words) - 2(Severe) 11. Extinction and Inattention (visual/tactile/auditory/spatial/personal) - 1(Present) Initials: cp NIH Stroke Scale - NIH Stroke Score Date: 08/07/2020 Time: 15:56 Total Score = 14 1a. Level of Consciousness (LOC) - 0(Alert) 1b. Level of Consciousness (LOC) (Year \T\ Age) - 1(One) 1c. LOC Commands (Open \T\ Closes Eyes/Machine Tool Dresser) - 0(Both) 2. Best Gaze (Lateral Gaze Paresis) - 0(Normal) 3. Visual Field Loss - 0(No visual loss) 4. Facial Palsy - 1(Minor Paralysis) 5a. Left Arm: Motor (10-second hold) - 1(Drift) 5b. Right Arm: Motor (10-second hold) - 1(Drift) 6a. Left Leg: Motor (5-second hold - always test supine) - 0(No drift) 6b. Right Leg: Motor (5-second hold - always test supine) - 2(Drift, some effort against gravity) 7. Limb Ataxia (finger/nose \T\ heel/roque - test with eyes open) - 2(Present in two limbs) 8. Sensory Loss (pinprick arms/legs/face) - 1(Mild to moderate loss) 9. Best Language: Aphasia (description/naming/reading) - 2(Severe aphasia) 10. Dysarthria (speech clarity - read or repeat words) - 2(Severe) 11. Extinction and Inattention (visual/tactile/auditory/spatial/personal) - 1(Present) Initials: cp Signatures: Dispatcher [employer] EDStuart Hebert RN RN Syed Aranda MD MD rn Attema, Lee, CODIFIER-C CODIFIER-Cla1 Jorge Llanos PA PA cp Peltier, Brian RN RN bp Veronica Lewis, RN RN rb3 Corrections: (The following items were deleted from the chart) 17:29 16:54 CORONAVIRUS+ ordered. EDMS EDMS 18:00 16:36 08/07/2020 16:[address] [facility]. Diagnosis is Left Temporal Mass; Encephalopathy, unspecified; Altered mental status, unspecified. Reason for transfer: Higher level of care. Accepting physician is DR Vernon. Condition is Stable. Problem is new. Symptoms have improved. cp 19:16 18:00 08/07/2020 16:36 Transfer ordered to [facility]. Diagnosis is Left Temporal Mass; Encephalopathy, unspecified; Altered mental status, unspecified. Reason for transfer: Higher level of care. Accepting physician is DR Vernon. Condition is Stable. Problem is new. Symptoms have improved. bp 19:16 19:16 08/07/2020 16:[address] [facility]. Diagnosis is Left Temporal Mass; Encephalopathy, unspecified; Altered mental status, unspecified. Reason for transfer: Higher level of care. Accepting physician is DR Claire. Condition is Stable. Problem is new. Symptoms have improved. cp
--- NOTE | 2020-08-07 16:37 | ER ---
Nurse's Notes [facility] Name: Janusz Morris Jr Age: 55 yrs Sex: Male : 1965 Arrival Date: 08/07/2020 Time: 13:40 Bed 5 Private MD: Tima Estrada Diagnosis: Left Temporal Mass;Encephalopathy, unspecified;Altered mental status, unspecified Presentation: 08/07 13:40 Chief complaint: Family reports that the pt has had right sided weakness since Sunday rb3 that has gotten progressively worse. Pt. has been refusing his Lactulose for the past two week and refused to take his home medication today. He has a DNR in place. 13:40 Coronavirus screen: Client denies travel out of the [place] in the last 14 days. Ebola rb3 Screen: Patient denies travel to an Ebola-affected area in the 21 days before illness onset. An acute neurological deficit is present. The patient has been moved to a treatment area. The patients blood glucose was checked prior to arriving to the hospital and was found to be hyperglycemic. Initial Sepsis Screen: Does the patient meet any 2 criteria? No. Patient's initial sepsis screen is negative. Risk Assessment: Do you want to hurt yourself or someone else? Patient reports no desire to harm self or others. Onset of symptoms was August 03, 2020. 13:40 Method Of Arrival: Wheelchair rb3 13:40 Acuity: AJ 3 rb3 13:45 Initial Sepsis Screen: Does the patient have a suspected source of infection? No. bp Patient's initial sepsis screen is negative. Triage Assessment: 13:40 General: Appears in no apparent distress. Behavior is calm, inappropriate for age. rb3 Neuro: Level of Consciousness is obtunded, Oriented to none Pt. will not follow commands. Cardiovascular: Patient's skin is warm and dry. Respiratory: Airway is patent Respiratory effort is even, unlabored, Respiratory pattern is regular, symmetrical. GI: No deficits noted. : No deficits noted. Musculoskeletal: Pt. does not follow commands. 13:45 The onset of the patients symptoms was at an unknown time. bp Stroke Activation: Symptom onset > 6 hours Physician: Stroke Attending; Name: ; Notified At: ; Arrived At: Physician: Chief Stroke Resident; Name: ; Notified At: ; Arrived At: Physician: Stroke Resident; Name: ; Notified At: ; Arrived At: Physician: ED Attending; Name: ; Notified At: ; Arrived At: Physician: ED Resident; Name: ; Notified At: ; Arrived At: 13:45 NO ACTIVATION bp Historical: - Allergies: 13:40 No Known Allergies; rb3 - Home Meds: 13:40 lisinopril 5 mg Oral tab 1 tab once daily [Active]; metformin 500 mg Oral tab 1 tab 2 rb3 times per day [Active]; tramadol 50 mg Oral tab 1 tab every 6 hours [Active]; Protonix 40 mg Oral grps 1 packet once daily [Active]; thiamine HCl (vitamin B1) 100 mg Oral tab 100 mg daily [Active]; Tresiba FlexTouch U-200 200 unit/mL (3 mL) subcutaneous inpn 46 units twice a day [Active]; Humulin R 100 unit/mL soln [Active]; lactulose 10 gram/15 mL Oral soln 60 mL 3 times per day [Active]; furosemide 20 mg Oral tab 1 tab once daily [Active]; Aldactone 50 mg Oral tab 1 tab once daily [Active]; bisacodyl 10 mg Rectal supp 1 suppository once daily [Active]; levsin 0.125 mg 1 tab every 4 hours [Active]; promethazine 25 mg Oral tab 1 tab every 4 hours [Active]; Ativan 0.5 mg Oral tab 1 tab Every two hours PRN [Active]; morphine 20 mg/5 mL (4 mg/mL) Oral soln 0.5 mL every one hour [Active]; acetaminophen 650 mg Rectal supp 1 suppository every 4 hours for PRN [Active]; - PMHx: 13:40 Cirrhosis; esophageal varices; liver cancer; Hypertension; Diabetes - NIDDM; anxiety; rb3 - PSHx: 13:40 TACE; cardiac cath; rb3 - Immunization history:: Adult Immunizations up to date. - Social history:: Smoking status: unknown. Screenin:45 Abuse screen: Denies threats or abuse. Nutritional screening: No deficits noted. rb3 Tuberculosis screening: No symptoms or risk factors identified. Fall Risk No fall in past 12 months (0 pts). Secondary diagnosis (15 points) CVA, IV access (20 points). Ambulatory Aid- None/Bed Rest/Nurse Assist (0 pts). Gait- Normal/Bed Rest/Wheelchair (0 pts) Mental Status- Overestimates/Forgets Limitations (15 pts.). Total Castellano Fall Scale indicates High Risk Score (45 or more points). Fall prevention measures have been instituted. Side Rails Up X 2 Placed Close to Nursing Station 1:1 Attendant Assigned Frequent Obs/Assessments Occuring Family Present and informed to notify staff if the need to leave the bedside As available patient and family educated on Fall Prevention Program and Strategies. Assessment: 13:45 General: See triage assessment. rb3 13:45 Patient has been NPO before screening. The patient is not alert and/or unable to follow rb3 commands. Bedside swallow screen discontinued. Patient kept NPO until cleared by Speech Therapy or Physician. 13:45 T-PA (Activase) Screening: Contraindications: Patient reports onset of signs and rb3 symptoms of stroke greater than 6 hours ago: Yes. Pain: Unable to use pain scale. No signs of distress, pt. does not answer when spoken to. 13:45 VAN Scoring: Arm Drift: Patients demonstrates NO arm weakness. Patient is VAN Negative. bp The patient has not been NPO before screening. The patient is not alert and/or unable to follow commands. Bedside swallow screen discontinued. Patient kept NPO until cleared by Speech Therapy or Physician. The patient exhibits slurred or garbled speech. The patient is exhibiting difficulty speaking. The patient is exhibiting difficulty understanding words. The patient is able to swallow own secretions with no drooling or need for suction. NPO The patient failed the bedside swallow screening. The patient will be kept NPO until cleared by Speech Therapy or Physician. Provider notified of bedside swallow screening results: Jorge HASSAN. 15:00 Reassessment: No changes from previously documented assessment. Patient and/or family bp updated on plan of care and expected duration. Pain level reassessed. CT GROSSLY ABNORMAL PER RADIOLOGY, AT [facility] TO DISCUSS FURTHER TREATMENT WITH FAMILY. 16:00 Reassessment: No changes from previously documented assessment. ATTENDING AT [facility] WITH bp FAMILY, FAMILY NOW ENDORSING TRANSFER FOR FURTHER TREATMENT. 17:18 Reassessment: REPORT TO YARON ELIAS FOR [facility] ER. TRANSPORT PENDING. bp 17:56 Reassessment: EMS AT / FOR TRANSPORT. bp Vital Signs: 13:40 BP 121 / 71; Pulse 87; Resp 19; Temp 99; Pulse Ox 100% ; Weight 79.82 kg (R); Height 5 rb3 ft. 2 in. (157.48 cm); 15:00 BP 123 / 65; Pulse 76; Resp 16; Pulse Ox 100% ; bp 16:00 BP 97 / 52; Pulse 74; Resp 16; Pulse Ox 100% ; bp 17:18 BP 120 / 71; Pulse 74; Resp 16; Temp 98.9; Pulse Ox 100% ; bp 13:40 Body Mass Index 32.19 (79.82 kg, 157.48 cm) rb3 Phoenix Coma Score: 15:56 Eye Response: spontaneous(4). Verbal Response: inappropriate words(3). Motor Response: cp withdraws from pain(4). Total: 11. NIH Stroke Scale Scores: 13:45 NIHSS Score: 7 bp 13:57 NIHSS Score: 24 cp 15:56 NIHSS Score: 14 cp ED Course: 13:40 Patient arrived in ED. ag5 13:40 Tima Estrada DO is Private Physician. ag5 13:42 [facility]. cp 13:42 Syed Steele MD is Attending Physician. cp 13:45 Arm band placed on right wrist. rb3 13:45 Patient has correct armband on for positive identification. Bed in low position. Call rb3 light in reach. Side rails up X2. Pulse ox on. NIBP on. 13:54 Veronica Lewis, RN is Primary Nurse. rb3 14:05 Kenneth Negron, RN is Primary Nurse. bp 14:09 Triage completed. rb3 14:09 CT Stroke Brain w/o Contrast In Process Unspecified. EDMS 14:18 XRAY Chest (1 view) In Process Unspecified. EDMS 15:45 Inserted saline lock: 22 gauge in right wrist, using aseptic technique. Blood collected.bp 16:[address] [facility]. mt 16:[address] to report with [facility] neurosurgeon. mt 17:18 No provider procedures requiring assistance completed. Patient transferred, IV remains bp in place. Administered Medications: 15:45 Drug: NS 0.9% 500 ml Route: IV; Rate: bolus; Site: right wrist; bp 16:33 Follow up: IV Status: Completed infusion rb3 15:55 Drug: Decadron - Dexamethasone 10 mg Route: IVP; Site: right wrist; bp 16:10 Follow up: Response: No adverse reaction rb3 17:30 Drug: Mannitol 25% 1 g/kg {Note: 25GM GIVEN PER VERBAL ORDERS.} Route: IV; Rate: per bp protocol; Site: right wrist; 17:56 Follow up: IV Status: Completed infusion; IV Intake: 100ml bp 17:30 Drug: NS 0.9% 1000 ml Route: IV; Rate: 1 bolus; Site: right wrist; bp 17:56 Follow up: IV Status: Infusion continued upon transfer bp Point of Care Testing: Blood Glucose: 13:45 Blood Glucose: 316 mg/dL; rb3 Ranges: Intake: 17:56 IV: 100ml; Total: 100ml. bp Outcome: 16:36 ER care complete, transfer ordered by . cp 17:18 Transferred by [facility] to [facility], Transfer form completed. bp 17:18 Condition: stable 17:18 Instructed on the need for transfer. 18:00 Patient left the ED. bp 19:16 Patient left the ED. NIH Stroke Scale - NIH Stroke Score Date: 08/07/2020 Time: 13:45 Total Score = 7 1a. Level of Consciousness (LOC) - 2(Not Alert, obtunded) 1b. Level of Consciousness (LOC) (Year \T\ Age) - 2(Neither) 1c. LOC Commands (Open \T\ Closes Eyes/Office Services Coordinator) - 1(One) 2. Best Gaze (Lateral Gaze Paresis) - 0(Normal) 3. Visual Field Loss - 0(No visual loss) 4. Facial Palsy - 0(Normal) 5a. Left Arm: Motor (10-second hold) - 0(No drift) 5b. Right Arm: Motor (10-second hold) - 0(No drift) 6a. Left Leg: Motor (5-second hold - always test supine) - 0(No drift) 6b. Right Leg: Motor (5-second hold - always test supine) - 0(No drift) 7. Limb Ataxia (finger/nose \T\ heel/roque - test with eyes open) - 0(Absent) 8. Sensory Loss (pinprick arms/legs/face) - 0(Normal) 9. Best Language: Aphasia (description/naming/reading) - 2(Severe aphasia) 10. Dysarthria (speech clarity - read or repeat words) - 0(Normal) 11. Extinction and Inattention (visual/tactile/auditory/spatial/personal) - 0(No abnormality) Initials: bp NIH Stroke Scale - NIH Stroke Score Date: 08/07/2020 Time: 13:57 Total Score = 24 1a. Level of Consciousness (LOC) - 0(Alert) 1b. Level of Consciousness (LOC) (Year \T\ Age) - 2(Neither) 1c. LOC Commands (Open \T\ Closes Eyes/Office Services Coordinator) - 1(One) 2. Best Gaze (Lateral Gaze Paresis) - 0(Normal) 3. Visual Field Loss - 0(No visual loss) 4. Facial Palsy - 2(Partial paralysis) 5a. Left Arm: Motor (10-second hold) - 3(No effort against gravity) 5b. Right Arm: Motor (10-second hold) - 3(No effort against gravity) 6a. Left Leg: Motor (5-second hold - always test supine) - 2(Drift, some effort against gravity) 6b. Right Leg: Motor (5-second hold - always test supine) - 3(No effort against gravity) 7. Limb Ataxia (finger/nose \T\ heel/roque - test with eyes open) - 2(Present in two limbs) 8. Sensory Loss (pinprick arms/legs/face) - 1(Mild to moderate loss) 9. Best Language: Aphasia (description/naming/reading) - 2(Severe aphasia) 10. Dysarthria (speech clarity - read or repeat words) - 2(Severe) 11. Extinction and Inattention (visual/tactile/auditory/spatial/personal) - 1(Present) Initials: cp NIH Stroke Scale - NIH Stroke Score Date: 08/07/2020 Time: 15:56 Total Score = 14 1a. Level of Consciousness (LOC) - 0(Alert) 1b. Level of Consciousness (LOC) (Year \T\ Age) - 1(One) 1c. LOC Commands (Open \T\ Closes Eyes/Office Services Coordinator) - 0(Both) 2. Best Gaze (Lateral Gaze Paresis) - 0(Normal) 3. Visual Field Loss - 0(No visual loss) 4. Facial Palsy - 1(Minor Paralysis) 5a. Left Arm: Motor (10-second hold) - 1(Drift) 5b. Right Arm: Motor (10-second hold) - 1(Drift) 6a. Left Leg: Motor (5-second hold - always test supine) - 0(No drift) 6b. Right Leg: Motor (5-second hold - always test supine) - 2(Drift, some effort against gravity) 7. Limb Ataxia (finger/nose \T\ heel/roque - test with eyes open) - 2(Present in two limbs) 8. Sensory Loss (pinprick arms/legs/face) - 1(Mild to moderate loss) 9. Best Language: Aphasia (description/naming/reading) - 2(Severe aphasia) 10. Dysarthria (speech clarity - read or repeat words) - 2(Severe) 11. Extinction and Inattention (visual/tactile/auditory/spatial/personal) - 1(Present) Initials: cp Signatures: Dispatcher [employer] EDStuart Hebert RN RN sg Jorge Llanos PA PA cp Thompson, Moriah mt Peltier, Brian, RN RN Sancho Martinez ag5 Veronica Lewis, RN RN rb3 Corrections: (The following items were deleted from the chart) 16:07 13:40 BP 121 / 71; Pulse 87bpm; Resp 19bpm; Pulse Ox 100%; Temp 99F; rb3 rb3
[2020-08-07] MEDS ORDERED: MANNITOL 25% 50 ML IV ONE ×2 (17:40→17:44)
[2020-08-07] MEDS ORDERED: NA CHLORIDE 0.9% 1,000 ML ONE (17:44)
[2020-08-07 20:16] VITALS: O2SAT 100
[2020-08-07 20:26] VITALS: BP 120/71; TEMP 98.9
--- NOTE | 2020-08-08 07:42 | EKG ---
Test Date: 2020-08-07 Test Time: 13:51:42 Cost Recorder: ZHANE MEASUREMENT RESULTS: Intervals: Rate: 83 MD: 142 QRSD: 72 QT: 368 QTc: 432 [place]: P: 21 MD: 142 QRS: 0 T: 46 INTERPRETIVE STATEMENTS: Normal sinus rhythm Normal ECG Compared to ECG 12/03/2019 19:29:02 Myocardial infarct finding no longer present Electronically Signed On 08-08-20 07:40:36 SANDING MACHINE TENDER by Gunnar Talley
== END 2020-08-07 19:16 | disposition short-term general hospital (02) ==
LOC: ER 13:39
DX: G93.40 Encephalopathy, unspecified (principal); G93.89 Other specified disorders of brain; I10 Essential (primary) hypertension; E11.9 Type 2 diabetes mellitus without complications; K74.60 Unspecified cirrhosis of liver; Z20.828 Contact with and (suspected) exposure to other viral communicable diseases; Z85.05 Personal history of malignant neoplasm of liver
CPT/HCPCS: 96365; 96361; 93005; 87040 ×2; 85025; 80048; 36415; 82140; 83735; 82550; 85610; 82947; 80076; 83605; 84484; 84145; 83880; 70450; 71045; 96375; 99285; U0003; J2150 ×2; J1100; J7040; J7030; 81003; 81015